=== PATIENT | male | born 1940 | race Caucasian/White ===

== ENCOUNTER → 2017-12-28 09:29 | Outpatient (CLI) | payer MEDICARE, SELFPAY ==
[2017-12-28 11:20] LABS: Absolute Lymphocyte Count 1.81 X10^3/ul (0.83-4.51); Absolute Neutrophil Count 3.7 X10^3/uL (2.0-7.7); Basophil# 0.04 X10^3/uL; Basophil% 0.6 % (0-1); Eosinophil# 0.27 X10^3/uL; Eosinophils% 4.1 % (0-5); Hematocrit 44.1 % (40-54); Hemoglobin 14.3 g/dl (13.0-16.5); Lymphocyte # 1.81 X10^3/ul (4.0); Lymphocyte % 27.8 % (19-41); Mean Corp Hgb Conc 32.4 g/gl (32-36); Mean Corpuscular Hgb 33.1 pg (27.0-32.0); Mean Corpuscular Volume 102.1 fL (80-94); Mean Platelet Vol. 10.5 fl (6.2-12.0); Monocyte# 0.66 X10^3/uL; Monocyte% 10.1 % (0-10); Neutrophil # 3.71 X10^3/uL (2.7-7.7); Neutrophil % 57.1 % (47-70); Platelet Count 223 K/mm3 (150-450); RBC Distribution Width CV 13.6 % (11.6-14.6); RBC Distribution Width SD 50.6 fl (35.1-43.9); Red Blood Count 4.32 M/mm3 (4.6-6.2); White Blood Count 6.5 K/mm3 (4.4-11.0)
[2017-12-28 11:32] LABS: POSITIVE COUNT NO; POSITIVE DIFFERENTIAL NO; POSITIVE MORPHOLOGY NO
[2017-12-28 11:40] LABS: Albumin, Serum 3.5 g/dL (3.2-5.0); BUN 19 mg/dL (7-18); BUN/Creat Ratio 14.3 RATIO (10-20); Calcium,Total 8.2 mg/dL (8.5-10.1); Chloride 107 mmol/L (98-107); Creatinine, Serum 1.33 mg/dL (0.70-1.30); EST Glomerular Filtration Rate 56 mL/min (>60); Est Glom Filt Rate - Afr Amer 67 mL/min (>60); Glucose 113 mg/dL (74-106); Magnesium 2.1 mg/dL (1.6-2.6); Phosphorus 2.5 mg/dL (2.5-4.9); Potassium 4.3 mmol/L (3.5-5.1); Sodium Level 143 mmol/L (136-145)
[2017-12-28 12:39] LABS: Protein, Urine (Random) 12.7 mg/dL (<11.9); Protein:Creat Ratio 145 mg/g CRE (0-200)
[2017-12-29 09:48] LABS: PTHIN 49.4 pg/mL (18.4-80.1)
[2017-12-29 10:20] LABS: Vitamin D,25 Hydroxy 42.8 ng/mL (29.95-100.01)
== END ==
PROVIDERS: Family Provider Family Medicine; PCP Family Medicine; Visit Provider Internal Medicine Nephrology
DX: Z13.0 Encounter for screening for diseases of the blood and blood-forming organs and certain disorders involving the immune mechanism (principal); N18.3 Chronic kidney disease, stage 3 (moderate); E55.9 Vitamin D deficiency, unspecified
CPT/HCPCS: 36415; 80069; 82306; 82570; 83735; 83970; 84156; 85025

== ENCOUNTER 2018-01-06 12:20 | Observation (INO) | payer MEDICARE, SELFPAY ==
[2018-01-06] VITALS (13 sets, daily range): BP systolic 98–157; BP diastolic 59–87; PULSE 65–92; RESP 15–18; TEMP 36.2–37.2; O2SAT 94–100; BMI 28.5; BMI 28.3; BMI 28.6
--- NOTE | 2018-01-06 12:34 | ED.RN ---
PT ALSO C/O JUAREZ IN [facility]. AWARE.
--- NOTE | 2018-01-06 12:44 | RAD_ITS ---
STUDY: X-RAY CHEST REASON FOR EXAM: Male, 77 years old. Chest pain. Left arm pain. TECHNIQUE: Single frontal view of the chest. COMPARISON: None. FINDINGS: The lungs are mildly hyperexpanded. There is no demonstrated pleural abnormality. There is borderline cardiomegaly. Normal mediastinum and emily. Normal visualized pulmonary arteries. Normal visualized aortic arch and descending thoracic aorta. Normal visualized thoracic spine. Normal visualized ribs, clavicles, and shoulders. There is a diaphragmatic pacer noted. There is no demonstrated abnormality of the visualized soft tissue structures of the upper abdomen. RAD/Chest 1 View (Portable) IMPRESSION: Borderline cardiomegaly with mild hyperexpansion. No acute pathology. Electronically Signed: Jose Alfredo Velazquez MD at 13:15 EDT , Service support ,
--- NOTE | 2018-01-06 12:44 | EKG12_ITS ---
Test Reason : REPEAT Blood Pressure : / mmHG Vent. Rate : 076 BPM Atrial Rate : 076 BPM P-R Int : 166 ms QRS Dur : 086 ms QT Int : 412 ms P-R-T Axes : 041 -22 022 degrees QTc Int : 463 ms Normal sinus rhythm Normal ECG Confirmed by HARVEY VALLADARES MD ([id number]), photo editor WINTER NUNES ([id number]) on 01/09/2018 1:21:19 PM Referred By: TAWNY Confirmed By:HARVEY VALLADARES MD
[2018-01-06] MEDS: Aspirin 81 MG TAB.CHEW 324 MG PO (12:54)
--- NOTE | 2018-01-06 13:16 | ED.VISSUMM ---
- ER Visit Summary Date of Service: 01/06/18 Chief Complaint: Chest pain History of Present Illness: The patient is a 77 M who presents with chest pain that has been constant for the past hour and a half. Patient states the pain started in his left wrist. Patient states pain is over the lower substernal area. Patient states he has been having intermittent chest pain for the past 2 days but has only been constant for the past hour and a half. Patient describes pain as a pressure. Patient states nothing seems to make it better or worse. Patient denies any nausea, vomiting, diaphoresis, or shortness of breath. Patient also admits to a right-sided headache. Patient states he was started on nortriptyline approximately 1-1/2 weeks ago but quit 1 week ago. Cardiac risk factors include hypertension, diabetes, and hypercholesterolemia. Physical Examination: Vital signs are stable. Patient is afebrile. Patient is in no acute distress. Oral mucosa is pink and moist. Neck is supple. Trachea is midline. There is no JVD or lymphadenopathy. Heart was regular rate and rhythm. Lungs are clear and equal bilateral. There is good respiratory effort noted. Abdomen is soft and nontender. Bowel sounds are normal. Cranial nerves II through XII are intact. There are no focal motor or sensory deficits noted. The remaining physical exam is within normal limits. Test Results: EKG showed normal sinus rhythm with a rate of 88. There are no acute ST or T-wave changes noted. There is evidence of left ventricular hypertrophy. CBC, basic metabolic profile, and troponin were obtained. BUN and creatinine were slightly elevated at 20 and 1.41. This is consistent with prior results. The remaining labs were within normal limits. Repeat EKG does not show any acute changes. Chest x-ray does not show any acute cardiopulmonary process. Emergency Department Course and Treatment: Patient was given aspirin and sublingual nitroglycerin here. Patient states his chest pain improved after this. Patient has a HEART score of 5. Case was discussed with Dr. Rich. He will admit the patient to his service to telemetry. She understood and was agreeable with the plan. All questions were answered. Disposition: Admit to the hospital Impression: Chest pain This note was generated with Att[employer] dictation software. It may contain incorrect words, spelling, and punctuation that were not noted in review of the chart prior to signing ED Disposition - Plan for ED Patient: Disposition: Acute Care Hospital [facility] Chief Complaint: Chest Pain Diagnosis: Chest pain Referrals: Freddy Walter MD [Primary Care Provider] -
--- NOTE | 2018-01-06 13:25 | ED.DCSUM_ITS ---
- ER Visit Summary Date of Service: 01/06/18 Chief Complaint: Chest pain History of Present Illness: The patient is a 77 M who presents with chest pain that has been constant for the past hour and a half. Patient states the pain started in his left wrist. Patient states pain is over the lower substernal area. Patient states he has been having intermittent chest pain for the past 2 days but has only been constant for the past hour and a half. Patient describes pain as a pressure. Patient states nothing seems to make it better or worse. Patient denies any nausea, vomiting, diaphoresis, or shortness of breath. Patient also admits to a right-sided headache. Patient states he was started on nortriptyline approximately 1-1/2 weeks ago but quit 1 week ago. Cardiac risk factors include hypertension, diabetes, and hypercholesterolemia. Physical Examination: Vital signs are stable. Patient is afebrile. Patient is in no acute distress. Oral mucosa is pink and moist. Neck is supple. Trachea is midline. There is no JVD or lymphadenopathy. Heart was regular rate and rhythm. Lungs are clear and equal bilateral. There is good respiratory effort noted. Abdomen is soft and nontender. Bowel sounds are normal. Cranial nerves II through XII are intact. There are no focal motor or sensory deficits noted. The remaining physical exam is within normal limits. Test Results: EKG showed normal sinus rhythm with a rate of 88. There are no acute ST or T-wave changes noted. There is evidence of left ventricular hypertrophy. CBC, basic metabolic profile, and troponin were obtained. BUN and creatinine were slightly elevated at 20 and 1.41. This is consistent with prior results. The remaining labs were within normal limits. Repeat EKG does not show any acute changes. Chest x-ray does not show any acute cardiopulmonary process. Emergency Department Course and Treatment: Patient was given aspirin and sublingual nitroglycerin here. Patient states his chest pain improved after this. Patient has a HEART score of 5. Case was discussed with Dr. Rich. He will admit the patient to his service to telemetry. She understood and was agreeable with the plan. All questions were answered. Disposition: Admit to the hospital Impression: Chest pain This note was generated with [employer] dictation software. It may contain incorrect words, spelling, and punctuation that were not noted in review of the chart prior to signing ED Disposition - Plan for ED Patient: Disposition: Acute Care Hospital [facility] Chief Complaint: Chest Pain Diagnosis: Chest pain Referrals: Freddy Walter MD [Primary Care Provider] -
[2018-01-06 13:29] LABS: Absolute Lymphocyte Count 1.72 X10^3/ul (0.83-4.51); Absolute Neutrophil Count 3.9 X10^3/uL (2.0-7.7); Basophil# 0.04 X10^3/uL; Basophil% 0.6 % (0-1); Eosinophil# 0.18 X10^3/uL; Eosinophils% 2.8 % (0-5); Hematocrit 43.1 % (40-54); Hemoglobin 14.3 g/dl (13.0-16.5); Lymphocyte # 1.72 X10^3/ul (4.0); Lymphocyte % 26.9 % (19-41); Mean Corp Hgb Conc 33.2 g/gl (32-36); Mean Corpuscular Hgb 33.2 pg (27.0-32.0); Monocyte# 0.51 X10^3/uL; Neutrophil # 3.93 X10^3/uL (2.7-7.7); Neutrophil % 61.4 % (47-70); Platelet Count 228 K/mm3 (150-450); RBC Distribution Width CV 13.3 % (11.6-14.6); RBC Distribution Width SD 48.6 fl (35.1-43.9); Red Blood Count 4.31 M/mm3 (4.6-6.2); White Blood Count 6.4 K/mm3 (4.4-11.0)
[2018-01-06 13:31] LABS: POSITIVE COUNT NO; POSITIVE DIFFERENTIAL NO; POSITIVE MORPHOLOGY NO
[2018-01-06 13:41] LABS: Anion Gap 7 (5-15); BUN 20 mg/dL (7-18); BUN/Creat Ratio 14.2 RATIO (10-20); Calcium,Total 8.4 mg/dL (8.5-10.1); Chloride 102 mmol/L (98-107); Creatinine, Serum 1.41 mg/dL (0.70-1.30); EST Glomerular Filtration Rate 52 mL/min (>60); Est Glom Filt Rate - Afr Amer 63 mL/min (>60); Estimated Creatinine Clearance 43.12 ml/min; Glucose 92 mg/dL (74-106); Potassium 4.2 mmol/L (3.5-5.1); Sodium Level 137 mmol/L (136-145)
--- NOTE | 2018-01-06 14:30 | EKG12_ITS ---
Test Reason : CHEST PAIN Blood Pressure : / mmHG Vent. Rate : 088 BPM Atrial Rate : 088 BPM P-R Int : 168 ms QRS Dur : 090 ms QT Int : 374 ms P-R-T Axes : 048 -20 030 degrees QTc Int : 452 ms Normal sinus rhythm Normal ECG Confirmed by BLAIEN RÍOS, HARVEY ([id number]), web editor WINTER NUNES ([id number]) on 01/09/2018 1:22:50 PM Referred By: Confirmed By:HARVEY VALLADARES MD
[2018-01-06] MEDS: Acetaminophen 500 MG Tablet 1000 MG PO (14:41)
--- NOTE | 2018-01-06 15:15 | HP.PCM_ITS ---
Problem List (1) Chest pain Status: Acute History of Present Illness Date of Admission: 01/06/18 Chief Complaint: Chest pain The patient is a 77 year old M past medical history of fibromyalgia, chronic pain syndrome, degenerative disc disease who presented to the emergency room today to be evaluated for midsternal chest pain. He reports intermittent midsternal chest pressure for the past 1-1/2 weeks . Today it started as tingling in his left hand and then he developed chest pain that lasted for about 3 and half hours before he came to the emergency room. The patient saw a fibromyalgia doctor at the [facility] and was recently started on Nortriptyline which he believes may be causing his chest pain. The patient reports no treated shortness of breath, cough, palpitations, rapid heartbeat, dizziness fever, chills, nausea, vomiting or abdominal pain. His workup in the emergency room is unremarkable, we are placing him in the hospital for further management. Past Medical History Allergies alfuzosin HCl [From Uroxatral] Allergy (Verified 01/06/18 12:29) Unknown ezetimibe [From Zetia] Allergy (Verified 01/06/18 12:29) Pain in joints pramipexole di-HCl [From Mirapex] Allergy (Verified 01/06/18 12:29) Other simvastatin [From Zocor] Allergy (Verified 01/06/18 12:29) Pain in joints lisinopril Adverse Reaction (Verified 01/06/18 12:29) Other Home Medications: Ambulatory Orders Medication Instructions Recorded Acyclovir [Zovirax] 400 mg PO BID 04/17/14 Ascorbate Calcium [Vitamin C] 500 mg PO BID 04/17/14 Atorvastatin Calcium [Lipitor] 10 mg PO DAILY 04/17/14 Cyanocobalamin (Vitamin B-12) 500 mcg PO BID 04/17/14 [Vitamin B-12] Duloxetine Hcl [Cymbalta] 60 mg PO DAILY 04/17/14 Gabapentin [Neurontin] 300 mg PO TID 04/17/14 Losartan Potassium [Cozaar] 25 mg PO QHS 04/17/14 Cholecalciferol (Vitamin D3) 1,000 unit PO BID 04/21/14 [Vitamin D3] Folic Acid 2 mg PO BIDCM 09/01/14 Aspirin E.C. [Ecotrin] 325 mg PO BIDCM #60 tablet 09/03/14 Smoking Status: Former smoker Review of Systems Comment: All Systems were reviewed with pertinent positives mentioned in the HPI above. VTE Information - Inpt Only VTE Present on Admission: No VTE Mechan Device Prophylaxis: SCD's VTE Pharm Prophylaxis ordered?: No Patient Problems: Active and Suspected Problems Chest pain (Acute) - Physical Exam General: Alert, Oriented x3 Neck: Supple, No JVD Lungs: Clear to auscultation Cardiovascular: Regular rate, Normal S1, Normal S2 Abdomen: Bowel Sounds Present, Soft, Non Tender Extremities: No edema Vital Signs Temp Pulse Resp BP Pulse Ox 97.1 F L 75 18 130/84 H 100 01/06/18 12:21 01/06/18 15:00 01/06/18 15:00 01/06/18 15:00 01/06/18 15:00 Oxygen Delivery Method Room Air Weight: 85.2 kg Body Mass Index (BMI) 28.5 Laboratory Tests Past 24 Hrs 01/06/18 01/06/18 13:00 13:00 WBC 6.4 RBC 4.31 L Hgb 14.3 Hct 43.1 MCV 100.0 H MCH 33.2 H MCHC 33.2 RDW 13.3 RDW Differential 48.6 H Plt Count 228 MPV 10.0 Immature Gran % (Auto) 0.300 Neut % (Auto) 61.4 Lymph % (Auto) 26.9 Craven % (Auto) 8.0 Eos % (Auto) 2.8 Baso % (Auto) 0.6 Absolute Neuts (auto) 3.9 Absolute Lymphs (auto) 1.72 Total Counted Not Reportable Sodium 137 Potassium 4.2 Chloride 102 Carbon Dioxide 28.0 Anion Gap 7 BUN 20 H Creatinine 1.41 H Estim Creat Clear Calc 43.12 Est GFR (MDRD) Af Amer 63 Est GFR (MDRD) Non-Af 52 L BUN/Creatinine Ratio 14.2 Glucose 92 Calcium 8.4 L Troponin I < 0.02 Assessment/Plan Active and Suspected Problems Chest pain (Acute) 1. Chest pain; we will obtain serial cardiac enzymes and EKGs to rule out acute coronary syndrome, assuming negative cardiac enzymes ,the patient will be scheduled for a stress test to rule out ischemia. 2. Fibromyalgia by history; will resume his home medications as they are. 3. Stage III chronic kidney disease; would avoid potential nephrotoxic medications, will dose medications based on his current GFR. 4. Dyslipidemia; he is on a statin. 5. Obesity; weight loss is recommended. 6. Essential hypertension; he is on Losartan. 7. DVT prophylaxis with Lovenox Code Visit OBSV E&M: 22906 Initial observation care L2
[2018-01-06] MEDS: Nitroglycerin Oint 1 INCH PACKET TRANSDERM. (15:22)
[2018-01-06] MEDS: Folic Acid 1 MG Tablet 2 MG PO (17:57)
[2018-01-06] MEDS: Gabapentin 300 MG Capsule PO (17:57)
[2018-01-06] MEDS: Ascorbic Acid 500 MG Tablet PO (22:12)
[2018-01-06] MEDS: Losartan Potassium 25 MG Tablet PO (22:12)
[2018-01-06] MEDS: Acyclovir 200 MG Capsule 400 MG PO (22:13)
[2018-01-06] MEDS: Cyanocobalamin 500 MCG Tablet PO (22:14)
[2018-01-06] MEDS: 0.9% NaCl Peripheral Flush Adult/Peds IV (22:17)
[2018-01-07] VITALS (10 sets, daily range): BP systolic 106–140; BP diastolic 61–75; PULSE 63–80; RESP 12–16; TEMP 36.6–36.8; O2SAT 97–99
[2018-01-07] MEDS: Enoxaparin 40 MG/0.4 ML Syringe SC (05:40)
[2018-01-07] MEDS: Gabapentin 300 MG Capsule PO ×3 (09:13→16:02)
[2018-01-07] MEDS: DULoxetine Hcl 60 MG Capsule PO (09:13)
[2018-01-07] MEDS: Folic Acid 1 MG Tablet 2 MG PO ×2 (09:13→16:02)
[2018-01-07] MEDS: Atorvastatin Calcium 10 MG Tablet PO (09:13)
[2018-01-07] MEDS: Ascorbic Acid 500 MG Tablet PO ×2 (09:15→21:05)
[2018-01-07] MEDS: Acyclovir 200 MG Capsule 400 MG PO ×2 (09:15→21:04)
[2018-01-07] MEDS: Aspirin E.C. 81 MG Tablet PO (09:59)
[2018-01-07] MEDS: Cyanocobalamin 500 MCG Tablet PO ×2 (09:59→21:06)
--- NOTE | 2018-01-07 11:18 | EKG12_ITS ---
Test Reason : CP Blood Pressure : / mmHG Vent. Rate : 076 BPM Atrial Rate : 076 BPM P-R Int : 166 ms QRS Dur : 088 ms QT Int : 400 ms P-R-T Axes : 048 -14 031 degrees QTc Int : 450 ms Normal sinus rhythm Normal ECG When compared with ECG of 06-JAN-2018 14:35, MANUAL COMPARISON REQUIRED, DATA IS UNCONFIRMED Confirmed by BLAINE RÍOS, HARVEY ([id number]), news video editor WINTER NUNES ([id number]) on 01/11/2018 3:39:03 PM Referred By: Daniel Guidry Confirmed By:HARVEY VALLADARES MD
--- NOTE | 2018-01-07 12:55 | PN_ITS ---
Patient Problems: Active and Suspected Problems Chest pain (Acute) Chest pain (Acute) Subjective: CC: Chest pain Objective: The patient is a 77 year old M past medical history of fibromyalgia, chronic pain syndrome, degenerative disc disease who presented to the emergency room today to be evaluated for midsternal chest pain. Serial cardiac enzymes are normal, he is to undergo stress test in the morning. He had an episode of chest pressure earlier in the day but currently denies any chest pain, shortness of breath or palpitations. Vitals/I&O's: Vital Signs Temp Pulse Resp BP Pulse Ox 98.3 F 68 16 125/73 H 97 01/07/18 09:06 01/07/18 11:01 01/07/18 09:06 01/07/18 09:06 01/07/18 09:06 Oxygen Delivery Method Room Air Weight: 84.4 kg Body Mass Index (BMI) 28.3 Intake and Output for Last 24 Hours 01/05/18 01/06/18 01/07/18 23:59 23:59 23:59 Intake Total 440 / 440 390 / 390 Balance 440 / 440 390 / 390 General: Alert, Oriented x3 HEENT: Atraumatic Oral: Moist Mucosa Neck: Supple Lungs: Wheezes Cardiovascular: Regular rate, Regular Rhythm, Normal S1, Normal S2 Abdomen: Bowel Sounds Present, Soft, Non Tender Laboratory Results 01/06/18 21:30: Troponin I < 0.02 01/07/18 03:32: Troponin I < 0.02 Current Medications Acyclovir (Zovirax) 400 mg PO BID [facility] Last Admin: 01/07/18 09:15 Dose: 400 mg Ascorbic Acid (Vitamin C) 500 mg PO BID [facility] Last Admin: 01/07/18 09:15 Dose: 500 mg Aspirin (Ecotrin) 81 mg PO DAILY@0800 [facility] Last Admin: 01/07/18 09:59 Dose: 81 mg Atorvastatin Calcium (Lipitor) 10 mg PO DAILY [facility] Last Admin: 01/07/18 09:13 Dose: 10 mg Cholecalciferol (Vitamin D) 1,000 unit PO BID [facility] Last Admin: 01/07/18 09:14 Dose: 1,000 unit Cyanocobalamin (Vitamin B12) 500 mcg PO BID [facility] Last Admin: 01/07/18 09:59 Dose: 500 mcg Duloxetine HCl (Cymbalta) 60 mg PO DAILY [facility] Last Admin: 01/07/18 09:13 Dose: 60 mg Enoxaparin Sodium (Lovenox) 40 mg SC DAILY@0600 [facility] Last Admin: 01/07/18 05:40 Dose: 40 mg Folic Acid (Folic Acid) 2 mg PO BIDCM [facility] Last Admin: 01/07/18 09:13 Dose: 2 mg Gabapentin (Neurontin) 300 mg PO TIDCM [facility] Last Admin: 01/07/18 11:57 Dose: 300 mg Losartan Potassium (Cozaar) 25 mg PO QHS [facility] Last Admin: 01/06/18 22:12 Dose: 25 mg Sodium Chloride () 5 - 30 ml IV UD PRN PRN Reason: SALINE FLUSH Last Admin: 01/06/18 22:17 Dose: 10 ml Medical Necessity - Tobacco Use Smoking Status: Former smoker Assessment/Plan Active and Suspected Problems Chest pain (Acute) Chest pain (Acute) 1. Chest pain; he would obtain stress test in the morning. 2. Fibromyalgia; we will continue home medications as they are. 3. Stage III chronic kidney disease; would avoid potential nephrotoxic medications, will dose medications based on his current GFR. 4. Dyslipidemia; he is on a statin. 5. Obesity; weight loss is recommended. 6. Essential hypertension; he is on Losartan. 7. DVT prophylaxis with Lovenox Code Visit Inpatient E&M: 74012 Subs Hosp L2 OBSV E&M: 39379 Subsequent observation care L2
[2018-01-07] MEDS: Losartan Potassium 25 MG Tablet PO (21:05)
[2018-01-08 02:36] VITALS: BP 105/63; PULSE 70; RESP 12; TEMP 36.6; O2SAT 95
[2018-01-08 03:10] VITALS: PULSE 69
[2018-01-08 05:37] LABS: Absolute Lymphocyte Count 2.03 X10^3/ul (0.83-4.51); Absolute Neutrophil Count 4.1 X10^3/uL (2.0-7.7); Basophil# 0.05 X10^3/uL; Basophil% 0.7 % (0-1); Eosinophil# 0.26 X10^3/uL; Eosinophils% 3.6 % (0-5); Hematocrit 43.4 % (40-54); Hemoglobin 14.9 g/dl (13.0-16.5); Lymphocyte # 2.03 X10^3/ul (4.0); Mean Corp Hgb Conc 34.3 g/gl (32-36); Mean Corpuscular Hgb 33.9 pg (27.0-32.0); Mean Corpuscular Volume 98.9 fL (80-94); Mean Platelet Vol. 10.3 fl (6.2-12.0); Monocyte# 0.79 X10^3/uL; Monocyte% 10.9 % (0-10); Neutrophil # 4.09 X10^3/uL (2.7-7.7); Neutrophil % 56.5 % (47-70); Platelet Count 241 K/mm3 (150-450); RBC Distribution Width CV 13.3 % (11.6-14.6); RBC Distribution Width SD 48.2 fl (35.1-43.9); Red Blood Count 4.39 M/mm3 (4.6-6.2); White Blood Count 7.2 K/mm3 (4.4-11.0)
[2018-01-08 05:44] VITALS: BP 122/80; PULSE 85; RESP 12; TEMP 36.6; O2SAT 97
[2018-01-08] MEDS: Aspirin E.C. 81 MG Tablet PO (05:45)
[2018-01-08 05:46] LABS: Partial Thromboplast Time 28.7 Seconds (24.1-36.2)
[2018-01-08 05:52] LABS: Anion Gap 9 (5-15); BUN 20 mg/dL (7-18); BUN/Creat Ratio 13.8 RATIO (10-20); Calcium,Total 8.6 mg/dL (8.5-10.1); Chloride 104 mmol/L (98-107); Creatinine, Serum 1.45 mg/dL (0.70-1.30); EST Glomerular Filtration Rate 50 mL/min (>60); Est Glom Filt Rate - Afr Amer 61 mL/min (>60); Estimated Creatinine Clearance 41.93 ml/min; Glucose 119 mg/dL (74-106); Sodium Level 141 mmol/L (136-145)
--- NOTE | 2018-01-08 05:55 | EKG12_ITS ---
Test Reason : AM EKG Blood Pressure : / mmHG Vent. Rate : 071 BPM Atrial Rate : 071 BPM P-R Int : 172 ms QRS Dur : 092 ms QT Int : 416 ms P-R-T Axes : 061 -14 051 degrees QTc Int : 452 ms Normal sinus rhythm Normal ECG When compared with ECG of 07-JAN-2018 11:30, MANUAL COMPARISON REQUIRED, DATA IS UNCONFIRMED Confirmed by BLAINE RÍOS, HARVEY ([id number]), photograph editor WINTER NUNES ([id number]) on 01/11/2018 3:38:24 PM Referred By: ARA Confirmed By:HARVEY VALLADARES MD
[2018-01-08 06:02] LABS: POSITIVE COUNT NO; POSITIVE DIFFERENTIAL NO; POSITIVE MORPHOLOGY NO
[2018-01-08 06:48] VITALS: PULSE 66
--- NOTE | 2018-01-08 10:11 | STRESSREP_ITS ---
Stress Test Report Exercise myocardial perfusion stress test. 77-year-old man with a history of chest pain. Stress protocol: Resting EKG demonstrates sinus rhythm with a rate of 58 bpm sinus arrhythmia noted. Resting blood pressure is 124/62 mmHg. The patient exercised according to the regular Felix protocol for total duration of 6 minutes. The maximum heart rate attained was 142 bpm which was 98% of maximum predicted heart rate. The maximum workload attained was 7 metabolic equivalents. At rest there were no ST or T-wave changes noted suggest ischemia and at peak exercise no ST or T- wave changes were noted suggest ischemia. No clinical angina was noted. The test was terminated due to shortness of breath and knee pain. The maximum blood pressure was 170/68 mmHg. Myocardial perfusion protocol. 11.3 mCi of technetium 99m sestamibi was injected at rest. The patient exercised according to the regular Felix protocol for 6 minutes attaining 7 metabolic equivalents. At peak exercise 33.8 mCi of technetium 99m sestamibi was injected. Stress images were obtained stress and rest images were reconstructed and compared in the short axis vertical long and horizontal long axis. Gated images were also obtained. Perfusion SPECT analysis. Review of the stress images demonstrate normal uptake of tracer noted in all areas of the myocardium. The resting images similarly demonstrate normal uptake of tracer noted in all areas of the myocardium. No areas of reversibility are noted suggest ischemia and no previous infarct is noted. Gated SPECT analysis. The gated ejection fraction is 58%. Conclusion: Normal exercise myocardial perfusion stress test at a moderate workload. No clinical angina noted. Preserved ejection fraction.
[2018-01-08] MEDS: Atorvastatin Calcium 10 MG Tablet PO (10:20)
[2018-01-08] MEDS: DULoxetine Hcl 60 MG Capsule PO (10:20)
[2018-01-08] MEDS: Folic Acid 1 MG Tablet 2 MG PO (10:20)
[2018-01-08] MEDS: Ascorbic Acid 500 MG Tablet PO (10:21)
[2018-01-08] MEDS: Acyclovir 200 MG Capsule 400 MG PO (10:21)
[2018-01-08] MEDS: Cyanocobalamin 500 MCG Tablet PO (10:22)
--- NOTE | 2018-01-08 10:37 | PCM.DC ---
- Discharge Diagnoses Current Active Problems: Current Active and Chronic Problems Chest pain (Acute) Chest pain (Acute) You will use the following diet at home:: No restrictions Your food should be the consistency of: Regular Your liquids should be the consistency of: Regular/Thin Discharge Activity: Return to Normal Activity Weight Bearing Status: Full weight bearing Allergies/Adverse Reactions: Allergies alfuzosin HCl [From Uroxatral] Allergy (Verified 01/06/18 12:29) Unknown ezetimibe [From Zetia] Allergy (Verified 01/06/18 12:29) Pain in joints pramipexole di-HCl [From Mirapex] Allergy (Verified 01/06/18 12:29) Other simvastatin [From Zocor] Allergy (Verified 01/06/18 12:29) Pain in joints lisinopril Adverse Reaction (Verified 01/06/18 12:29) Other Medications to take at Discharge Acyclovir [Zovirax] 400 mg PO BID 04/17/14 Ascorbate Calcium [Vitamin C] 500 mg PO BID 04/17/14 Atorvastatin Calcium [Lipitor] 20 mg PO DAILY 04/17/14 Cyanocobalamin (Vitamin B-12) [Vitamin B-12] 500 mcg PO BID 04/17/14 Duloxetine Hcl [Cymbalta] 60 mg PO BID 04/17/14 Gabapentin [Neurontin] 300 mg PO TID 04/17/14 Losartan Potassium [Cozaar] 25 mg PO QHS 04/17/14 Cholecalciferol (Vitamin D3) [Vitamin D3] 1,000 unit PO DAILY 04/21/14 Folic Acid 2 mg PO DAILY 09/01/14 Aspirin [Aspirin, Baby] 81 mg PO DAILY@0800 01/06/18 Aspirin E.C. [Ecotrin] 81 mg PO DAILY@0800 tablet 01/08/18 Primary Care Physician: Freddy Walter MD [Primary Care Provider] - Please follow up with your Primary Care Physician in: at next scheduled appointment
[2018-01-08 10:49] VITALS: BP 128/57; PULSE 74; RESP 14; TEMP 36.6; O2SAT 100
--- NOTE | 2018-01-09 19:21 | DS.PCM_ITS ---
Discharge Date and Diagnosis Date of Admission: 01/06/18 Date of Discharge: 01/08/18 - Primary Discharge Diagnosis #1 musculoskeletal chest pain #2 fibromyalgia #3 stage III chronic kidney disease Hospital Course and Treatment Operations: None Procedures: Nuclear stress test Summary of Care Provided: The patient is a 77 year old M was seen in the emergency room [facility] with chief complaint of chest pain. Workup in the emergency room included an EKG which showed a normal sinus rhythm at a rate of 88, labs were obtained and revealed a slightly elevated BUN at 20 and creatinine at 1.41. Chest x-ray did not show any acute cardiopulmonary process. Patient was given aspirin and sublingual nitroglycerin in the emergency room and he stated it improved his chest pain. Patient was placed in observation status on PCU, enzymes were cycled, and they remained negative and he underwent a nuclear stress test that was negative for reversible ischemia. On 01/08/18, patient was seen and examined felt in stable condition for discharge home Discharge Activity: Return to Normal Activity Weight Bearing Status: Full weight bearing Home Medications: Medications to take at Discharge Acyclovir [Zovirax] 400 mg PO BID 04/17/14 Ascorbate Calcium [Vitamin C] 500 mg PO BID 04/17/14 Atorvastatin Calcium [Lipitor] 20 mg PO DAILY 04/17/14 Cyanocobalamin (Vitamin B-12) [Vitamin B-12] 500 mcg PO BID 04/17/14 Duloxetine Hcl [Cymbalta] 60 mg PO BID 04/17/14 Gabapentin [Neurontin] 300 mg PO TID 04/17/14 Losartan Potassium [Cozaar] 25 mg PO QHS 04/17/14 Cholecalciferol (Vitamin D3) [Vitamin D3] 1,000 unit PO DAILY 04/21/14 Folic Acid 2 mg PO DAILY 09/01/14 Aspirin [Aspirin, Baby] 81 mg PO DAILY@0800 01/06/18 Aspirin E.C. [Ecotrin] 81 mg PO DAILY@0800 tablet 01/08/18 Primary Care Physician: Freddy Walter MD [Primary Care Provider] - Please follow up with your Primary Care Physician in: at next scheduled appointment Please Follow Up With: Freddy Walter MD Disposition: Home Minutes spent on discharge:: 25 Patient Condition:: Stable Medical Necessity - Tobacco Use Smoking Status: Former smoker Meaningful Use Info Meaningful Use Diagnoses (Choose all that apply): None applicable Code Visit OBSV E&M: 83847 Observation care discharge
== END 2018-01-08 10:39 | disposition home or self-care (01) ==
LOC: ED 13:49 → PCU 15:38
PROVIDERS: Admitting Provider Internal Medicine; Emergency Provider Emergency Medicine; Family Provider Family Medicine; PCP Family Medicine; Visit Provider Internal Medicine
DX: R07.89 Other chest pain (principal); M79.7 Fibromyalgia; G89.4 Chronic pain syndrome; E78.5 Hyperlipidemia, unspecified; E11.22 Type 2 diabetes mellitus with diabetic chronic kidney disease; I12.9 Hypertensive chronic kidney disease with stage 1 through stage 4 chronic kidney disease, or unspecified chronic kidney disease; N18.3 Chronic kidney disease, stage 3 (moderate); E66.9 Obesity, unspecified; Z68.28 Body mass index [BMI] 28.0-28.9, adult; Z79.899 Other long term (current) drug therapy; Z79.82 Long term (current) use of aspirin; Z71.3 Dietary counseling and surveillance; Z87.891 Personal history of nicotine dependence
CPT/HCPCS: 36415; 71045; 78452; 80048; 84484; 85025; 85610; 85730; 93005; 93017; 96372; 99218; 99284; A9500; A4216; G0378

== ENCOUNTER → 2018-05-15 14:06 | Outpatient (CLI) | payer MEDICARE, SELFPAY ==
[2018-05-15 15:08] LABS: PSA,Total - Annual Screen 0.77 ng/mL (0.00-4.00)
== END ==
PROVIDERS: Family Provider Family Medicine; PCP Family Medicine; Visit Provider Urology
DX: Z12.5 Encounter for screening for malignant neoplasm of prostate (principal)
CPT/HCPCS: 36415; 84153; G0103

== ENCOUNTER → 2018-06-20 08:52 | Outpatient (CLI) | payer MEDICARE, SELFPAY ==
[2018-06-20 13:04] LABS: Hemoglobin A1c 6.1 % (4.2-6.3)
[2018-06-20 13:26] LABS: AST(SGOT) 16 U/L (15-37); Alanine Aminotransfer ALT/SGPT 24 U/L (16-61); Albumin, Serum 3.4 g/dL (3.2-5.0); Alkaline Phosphatase 79 U/L (45-117); Anion Gap 8 (5-15); BUN 19 mg/dL (7-18); BUN/Creat Ratio 13.9 RATIO (10-20); Calcium,Total 8.5 mg/dL (8.5-10.1); Chloride 108 mmol/L (98-107); Cholesterol 163 mg/dL (200); Creatinine, Serum 1.37 mg/dL (0.70-1.30); EST Glomerular Filtration Rate 54 mL/min (>60); Est Glom Filt Rate - Afr Amer 65 mL/min (>60); Globulin 3.5 g/dL (2.2-4.2); Glucose 113 mg/dL (74-106); High Density Lipoprotein 53 mg/dL; Magnesium 2.2 mg/dL (1.6-2.6); Phosphorus 2.8 mg/dL (2.5-4.9); Potassium 4.6 mmol/L (3.5-5.1); Protein, Total 6.9 g/dL (6.4-8.2); Sodium Level 142 mmol/L (136-145); Triglycerides 117 mg/dL; Very Low Density Lipoprotein 23 mg/dL (5-40)
[2018-06-20 13:33] LABS: Absolute Lymphocyte Count 1.85 X10^3/ul (0.83-4.51); Absolute Neutrophil Count 3.2 X10^3/uL (2.0-7.7); Basophil# 0.04 X10^3/uL; Basophil% 0.7 % (0-1); Eosinophils% 3.4 % (0-5); Hematocrit 42.6 % (40-54); Hemoglobin 13.7 g/dl (13.0-16.5); Lymphocyte # 1.85 X10^3/ul (4.0); Lymphocyte % 31.8 % (19-41); Mean Corp Hgb Conc 32.2 g/gl (32-36); Mean Corpuscular Hgb 32.9 pg (27.0-32.0); Mean Corpuscular Volume 102.2 fL (80-94); Mean Platelet Vol. 10.5 fl (6.2-12.0); Monocyte% 8.6 % (0-10); Neutrophil # 3.22 X10^3/uL (2.7-7.7); Neutrophil % 55.5 % (47-70); Platelet Count 230 K/mm3 (150-450); RBC Distribution Width CV 13.4 % (11.6-14.6); RBC Distribution Width SD 50.5 fl (35.1-43.9); Red Blood Count 4.17 M/mm3 (4.6-6.2); White Blood Count 5.8 K/mm3 (4.4-11.0)
[2018-06-20 13:40] LABS: POSITIVE COUNT NO; POSITIVE DIFFERENTIAL NO; POSITIVE MORPHOLOGY NO
[2018-06-20 15:43] LABS: PTHIN 74.8 pg/mL (18.4-80.1)
== END ==
LOC: LAB.FUTURE 12-23 00:30 → BFHLAB 11-12 14:36
PROVIDERS: Family Provider Family Medicine; PCP Family Medicine; Visit Provider Family Medicine
DX: I12.9 Hypertensive chronic kidney disease with stage 1 through stage 4 chronic kidney disease, or unspecified chronic kidney disease (principal); E11.22 Type 2 diabetes mellitus with diabetic chronic kidney disease; N18.3 Chronic kidney disease, stage 3 (moderate); E55.9 Vitamin D deficiency, unspecified; E78.5 Hyperlipidemia, unspecified; Z13.0 Encounter for screening for diseases of the blood and blood-forming organs and certain disorders involving the immune mechanism
CPT/HCPCS: 36415; 80053; 80061; 82043; 82306; 82570; 83036; 83735; 83970; 84100; 85025

== ENCOUNTER → 2019-02-13 | Outpatient (CLI) | payer MEDICARE, SELFPAY ==
[2018-01-06 16:00] VITALS: BMI 28.3
[2019-02-13 12:31] LABS: Absolute Lymphocyte Count 1.62 X10^3/ul (0.83-4.51); Absolute Neutrophil Count 3.9 X10^3/uL (2.0-7.7); Basophil# 0.04 X10^3/uL; Basophil% 0.6 % (0-1); Eosinophil# 0.51 X10^3/uL; Eosinophils% 7.4 % (0-5); Hematocrit 43.4 % (40-54); Lymphocyte # 1.62 X10^3/ul (4.0); Lymphocyte % 23.5 % (19-41); Mean Corp Hgb Conc 32.3 g/gl (32-36); Mean Corpuscular Hgb 32.7 pg (27.0-32.0); Mean Corpuscular Volume 101.4 fL (80-94); Monocyte# 0.78 X10^3/uL; Monocyte% 11.3 % (0-10); Neutrophil # 3.93 X10^3/uL (2.7-7.7); Neutrophil % 56.9 % (47-70); Platelet Count 236 K/mm3 (150-450); RBC Distribution Width CV 13.5 % (11.6-14.6); RBC Distribution Width SD 49.6 fl (35.1-43.9); Red Blood Count 4.28 M/mm3 (4.6-6.2); White Blood Count 6.9 K/mm3 (4.4-11.0)
[2019-02-13 12:38] LABS: ALB/GLOB Ratio 1.1 RATIO (0.9-2.4); AST(SGOT) 20 U/L (15-37); Alanine Aminotransfer ALT/SGPT 25 U/L (16-61); Albumin, Serum 3.5 g/dL (3.2-5.0); Alkaline Phosphatase 90 U/L (45-117); Anion Gap 6 (5-15); BUN 23 mg/dL (7-18); BUN/Creat Ratio 16.2 RATIO (10-20); Calcium,Total 8.5 mg/dL (8.5-10.1); Chloride 110 mmol/L (98-107); Cholesterol 181 mg/dL (200); Creatinine, Serum 1.42 mg/dL (0.70-1.30); EST Glomerular Filtration Rate 51 mL/min (>60); Est Glom Filt Rate - Afr Amer 62 mL/min (>60); Globulin 3.3 g/dL (2.2-4.2); Glucose 120 mg/dL (74-106); High Density Lipoprotein 40 mg/dL; Potassium 4.2 mmol/L (3.5-5.1); Protein, Total 6.8 g/dL (6.4-8.2); Sodium Level 141 mmol/L (136-145); Triglycerides 270 mg/dL; Very Low Density Lipoprotein 54 mg/dL (5-40)
[2019-02-13 12:59] LABS: POSITIVE COUNT NO; POSITIVE DIFFERENTIAL NO; POSITIVE MORPHOLOGY NO
== END | disposition home or self-care (01) ==
PROVIDERS: Family Provider Family Medicine; PCP Family Medicine; Visit Provider Internal Medicine Nephrology
DX: E11.22 Type 2 diabetes mellitus with diabetic chronic kidney disease (principal); I12.9 Hypertensive chronic kidney disease with stage 1 through stage 4 chronic kidney disease, or unspecified chronic kidney disease; N18.3 Chronic kidney disease, stage 3 (moderate)
CPT/HCPCS: 36415; 80053; 80061; 85025

== ENCOUNTER → 2019-09-05 09:48 | Outpatient (CLI) | payer MEDICARE, SELFPAY ==
[2019-09-05 12:41] LABS: Absolute Lymphocyte Count 1.53 X10^3/uL (0.83-4.51); Absolute Neutrophil Count 7.5 X10^3/uL (2.0-7.7); Basophil# 0.07 X10^3/uL; Basophil% 0.7 % (0-1); Eosinophil# 0.35 X10^3/uL; Eosinophils% 3.4 % (0-5); Hematocrit 44.2 % (40-54); Hemoglobin 14.3 g/dL (13.0-16.5); Lymphocyte # 1.53 X10^3/ul (4.0); Mean Corp Hgb Conc 32.4 g/dL (32-36); Mean Corpuscular Hgb 33.1 pg (27.0-32.0); Mean Corpuscular Volume 102.3 fL (80-94); Mean Platelet Vol. 10.8 fl (6.2-12.0); Monocyte# 0.75 X10^3/uL; Monocyte% 7.3 % (0-10); NRBC Flagged by Analyzer 0 % (0-5); Neutrophil # 7.48 X10^3/uL (2.7-7.7); Neutrophil % 73.1 % (47-70); Platelet Count 231 K/mm3 (150-450); RBC Distribution Width CV 13.2 % (11.6-14.6); RBC Distribution Width SD 49.9 fl (35.1-43.9); Red Blood Count 4.32 M/mm3 (4.6-6.2); White Blood Count 10.2 K/mm3 (4.4-11.0)
[2019-09-05 12:59] LABS: ALB/GLOB Ratio 1.1 RATIO (0.9-2.4); AST(SGOT) 15 U/L (15-37); Alanine Aminotransfer ALT/SGPT 30 U/L (16-61); Albumin, Serum 3.8 g/dL (3.2-5.0); Alkaline Phosphatase 84 U/L (45-117); Anion Gap 6 (5-15); BUN 22 mg/dL (7-18); BUN/Creat Ratio 13.3 RATIO (10-20); Calcium,Total 8.8 mg/dL (8.5-10.1); Chloride 107 mmol/L (98-107); Creatinine, Serum 1.66 mg/dL (0.70-1.30); EST Glomerular Filtration Rate 43 mL/min (>60); Est Glom Filt Rate - Afr Amer 52 mL/min (>60); Globulin 3.4 g/dL (2.2-4.2); Glucose 125 mg/dL (74-106); Potassium 4.6 mmol/L (3.5-5.1); Protein, Total 7.2 g/dL (6.4-8.2); Sodium Level 140 mmol/L (136-145)
[2019-09-05 13:00] LABS: Microalbumin,Random Urine 21.4 mg/L (NO RANGE EST.); Microalbumin:Creatinine Ratio 16.6 mg/g CRE (<30 mg/g CRE)
[2019-09-05 14:16] LABS: Vitamin B12 300 pg/mL (211-911); Vitamin D,25 Hydroxy 36.5 ng/mL (29.95-100.01)
== END ==
PROVIDERS: Family Provider Family Medicine; PCP Family Medicine; Visit Provider Family Medicine
DX: I10 Essential (primary) hypertension (principal); E11.9 Type 2 diabetes mellitus without complications; E55.9 Vitamin D deficiency, unspecified; E53.8 Deficiency of other specified B group vitamins
CPT/HCPCS: 36415; 80053; 82043; 82306; 82570; 82607; 85025

== ENCOUNTER → 2019-11-05 13:48 | Outpatient (CLI) | payer MEDICARE, SELFPAY ==
[2018-01-06 16:00] VITALS: BMI 28.3
--- NOTE | 2019-11-05 13:51 | RAD_ITS ---
STUDY: X-RAY CHEST REASON FOR EXAM: Male, 78 years old. Chronic cough TECHNIQUE: PA and lateral views of the chest. COMPARISON: January 06, 2018 FINDINGS: There is no new focal consolidation present. The lungs remain hyperinflated. Normal size heart. Normal mediastinum and emily. Normal visualized pulmonary arteries. Normal visualized aortic arch and descending thoracic aorta. Stable visualized thoracic spine. Normal visualized ribs, clavicles, and shoulders. There is a grossly stable diaphragmatic pacer visualized. There is no demonstrated abnormality of the visualized soft tissue structures of the upper abdomen. RAD/Chest PA and Lateral IMPRESSION: Stable examination demonstrating no acute cardiopulmonary process. Electronically Signed: Janice Weathers MD at 23:23 EST Tel , Service support ,
== END ==
PROVIDERS: PCP Family Medicine; Referring Provider Family Medicine; Visit Provider Family Medicine
DX: R05 Cough (principal)
CPT/HCPCS: 71046

== ENCOUNTER 2019-11-10 15:54 | Emergency (ER) | payer MEDICARE, SELFPAY ==
[2019-11-10 15:55] VITALS: BP 164/86; PULSE 70; RESP 18; TEMP 37.1; O2SAT 97; BMI 27.5
--- NOTE | 2019-11-10 16:21 | ED.DCSUM_ITS ---
History of Present Illness Chief Complaint: Lower Extremity Injury Informant: Patient Onset: Yesterday Narrative: Patient is a 78-year-old male with history of chronic prednisone use, Raynaud syndrome, Palacios's cyst, hypertension and diabetes mellitus presenting with atr aumatic pain and swelling of his left lower leg. Patient states he noticed a little bit of discomfort and swelling yesterday but it was more pronounced today. He denies any injury. He denies any recent immobilization. He is not any blood thinners. He is not on any testosterone or hormone therapy. He denies any history of DVT or PE. He does not feel short of breath or have chest pain. Past Medical History - Allergies and Home Meds Allergies/Adverse Reactions: Allergies alfuzosin HCl [From Uroxatral] Allergy (Verified 01/06/18 12:29) Unknown ezetimibe [From Zetia] Allergy (Verified 01/06/18 12:29) Pain in joints pramipexole di-HCl [From Mirapex] Allergy (Verified 01/06/18 12:29) Other simvastatin [From Zocor] Allergy (Verified 01/06/18 12:29) Pain in joints lisinopril Adverse Reaction (Verified 01/06/18 12:29) Other Primary Care Physician: Monserrat Wilson MD [Primary Care Provider] - Past Medical History: - - Hypertension, diabetes, Raynaud syndrome Surgical History: noncontributory Smoking Status: Former smoker Review of Systems General: Denies: Chills, Fever, Sweats Eyes: Denies: Visual changes - bilaterally, Diplopia ENT: Denies: Rhinorrhea, Sore throat Cardiovascular: Denies: Chest pain, Palpitations Respiratory: Denies: Dyspnea, Cough, Dyspnea on exertion Gastrointestinal: Denies: Abdominal pain, Nausea, Vomiting, Diarrhea, Melena, Hematochezia Genitourinary: Denies: Dysuria, Hematuria, Frequency Musculoskeletal: Reports: Swelling - Left lower extremity, Extremity Pain - Left calf pain. Denies: Back pain Skin: Denies: Rash, Wounds Neurological: Reports: Parasthesia - Left heel. Denies: Headache, Weakness, Numbness Physical Exam Vital Signs/Narrative: Vital Signs Temp Pulse Resp BP Pulse Ox 11/10/19 15:55 98.7 F 70 18 164/86 H 97 Inital Vital Signs reviewed: Yes General: Well nourished, Well developed, No Acute Distress Head: Normocephalic, Atraumatic Eyes: Perrl, EOMI ENT: Moist mucous membranes, No rhinorrhea Neck: Supple, Nontender Cardiovascular: Regular rate, Regular rhythm, No murmurs Respiratory: No distress, CTA bilaterally, Chest nontender Back: Nontender, Normal Inspection Extremities: Edema, Calf Tenderness, - - No palpable cords. 2+ pitting edema of the left lower leg, asymmetric. No associated warmth Skin: Normal color, No rash, - - No associated erythema of the left lower extremity Neurological: Alert, Oriented x3, Cranial nerves II-XII grossly intact, Normal Strength, Normal Sensation, Parasthesia - Left heel Psychological: Normal affect, Normal Mood Diagnostic/Tx/Re-eval - Medical Decision Making Patient is evaluated for atraumatic discomfort and swelling of his left lower extremity. He has normal vital signs. Presentation is concerning for DVT although I do not know why he would have 1 at this time. Patient be treated empirically with Lovenox and ordered an outpatient ultrasound for tomorrow. He does have a follow-up appointment with his nurse practitioner home assessments tomorrow because of the paresthesias he has been having in his heel. I suspect this is more associated with diabetic neuropathy. He does not have any overlying erythema or signs of cellulitis at this time. He denies any abnormal bleeding or signs of GI bleed. Do not think further blood work is indicated at this time. He is not have any signs or symptoms of a PE. He is not tachycardic or hypoxic. He denies any dyspnea on exertion or shortness of breath. Patient is counseled on signs and symptoms requiring return to the emergency room. Patient verbalizes agreement and understand this plan. Patient discharged home in stable and improved condition. ED Disposition - Plan for ED Patient: Disposition: Home or Assisted Living Diagnosis: Localized swelling of left lower leg Instructions: Deep Vein Thrombosis Referrals: Monserrat Wilson MD [Primary Care Provider] - Additional Instructions: The swelling in your leg looks like it could be from a DVT. I do not have ultrasound here today to test for it. You were treated with 1 dose of anticoagulation (a blood thinner) just in case and need to return tomorrow for formal ultrasound to either rule out or rule in a DVT. The radiology department should call you tomorrow morning to tell you what time to come in. If you develop any chest pain, shortness of breath or worsening symptoms please return to the emergency room.
[2019-11-10] MEDS: Enoxaparin 100 MG/ML Syringe 80 MG SC (16:37)
== END 2019-11-10 16:46 | disposition home or self-care (01) ==
PROVIDERS: Emergency Provider Emergency Medicine; PCP Family Medicine
DX: R60.0 Localized edema (principal); I10 Essential (primary) hypertension; E11.9 Type 2 diabetes mellitus without complications; I73.00 Raynaud's syndrome without gangrene; Z79.52 Long term (current) use of systemic steroids; Z79.82 Long term (current) use of aspirin; Z87.891 Personal history of nicotine dependence
CPT/HCPCS: 96372; 99282

== ENCOUNTER → 2019-11-11 09:52 | Outpatient (CLI) | payer MEDICARE, SELFPAY ==
[2019-11-10 15:55] VITALS: BMI 27.5
--- NOTE | 2019-11-11 09:55 | VDLE_ITS ---
Reason For Study: Edema RIGHT LEFT CFV is compressible, spontaneous, phasic, GSV is normal. competent and demonstrates normal Acute deep vein thrombosis is noted in the augmentation. left CFV, FV, PopV, T/P Trunk, PTV, PeroV, Procedure SoleusV, GastrocV. Exam performed in department. Clot is mobile in the CFV. A preliminary report was called and/or faxed to Steve. Pt seen in ED 11/10/2019 PCP Steve. Pt released home, office to call pt with instructions. Pt was given a shot of Lovenox in ED 11/10/2019. Interpretation Summary Acute deep vein thrombosis is noted in the left common femoral vein. Acute deep vein thrombosis is noted in the left femoral vein. Acute deep vein thrombosis is noted in the left popliteal vein. Acute deep vein thrombosis is noted in the left tibio-peroneal trunk. Acute deep vein thrombosis is noted in the left posterior tibial vein. Acute deep vein thrombosis is noted in the left peroneal vein. Acute deep vein thrombosis is noted in the left soleus vein. Acute deep vein thrombosis is noted in the left gastrocnemius vein. The left great saphenous vein appears patent and compressible segmentally. Ordering Physician: Sosa Gibson Referring Physician: Monserrat Wilson Performed By: Roxana Alvarado RVT
== END ==
PROVIDERS: PCP Family Medicine; Referring Provider Emergency Medicine; Visit Provider Emergency Medicine
DX: R60.0 Localized edema (principal)
CPT/HCPCS: 93971

== ENCOUNTER → 2019-11-15 13:19 | Outpatient (CLI) | payer MEDICARE, SELFPAY ==
[2019-11-10 15:55] VITALS: BMI 27.5
[2019-11-15 15:35] LABS: Absolute Lymphocyte Count 1.69 X10^3/uL (0.83-4.51); Basophil# 0.08 X10^3/uL; Eosinophil# 0.27 X10^3/uL; Eosinophils% 3.4 % (0-5); Hematocrit 44.4 % (40-54); Hemoglobin 14.3 g/dL (13.0-16.5); Lymphocyte # 1.69 X10^3/ul (4.0); Lymphocyte % 21.6 % (19-41); Mean Corp Hgb Conc 32.2 g/dL (32-36); Mean Corpuscular Hgb 32.4 pg (27.0-32.0); Mean Corpuscular Volume 100.7 fL (80-94); Mean Platelet Vol. 10.1 fl (6.2-12.0); Monocyte# 0.78 X10^3/uL; Monocyte% 9.9 % (0-10); NRBC Flagged by Analyzer 0 % (0-5); Neutrophil # 4.97 X10^3/uL (2.7-7.7); Neutrophil % 63.5 % (47-70); Platelet Count 315 K/mm3 (150-450); RBC Distribution Width CV 12.7 % (11.6-14.6); Red Blood Count 4.41 M/mm3 (4.6-6.2); White Blood Count 7.8 K/mm3 (4.4-11.0)
[2019-11-15 15:46] LABS: Protein, Urine (Random) 9.7 mg/dL (<11.9); Protein:Creat Ratio 89 mg/g CRE (0-200)
[2019-11-15 15:51] LABS: Albumin, Serum 3.5 g/dL (3.2-5.0); Anion Gap 5 (5-15); BUN 20 mg/dL (7-18); BUN/Creat Ratio 13.8 RATIO (10-20); Calcium,Total 8.9 mg/dL (8.5-10.1); Chloride 106 mmol/L (98-107); Creatinine, Serum 1.45 mg/dL (0.70-1.30); EST Glomerular Filtration Rate 50 mL/min (>60); Est Glom Filt Rate - Afr Amer 61 mL/min (>60); Glucose 165 mg/dL (74-106); Phosphorus 2.3 mg/dL (2.5-4.9); Potassium 4.2 mmol/L (3.5-5.1); Sodium Level 139 mmol/L (136-145)
[2019-11-15 16:06] LABS: Vitamin D,25 Hydroxy 27.9 ng/mL (29.95-100.01)
== END ==
LOC: BFHLAB 13:20
PROVIDERS: PCP Family Medicine; Visit Provider Internal Medicine Nephrology
DX: I82.409 Acute embolism and thrombosis of unspecified deep veins of unspecified lower extremity (principal); N18.3 Chronic kidney disease, stage 3 (moderate)
CPT/HCPCS: 36415; 80069; 82306; 82570; 83970; 84156; 85025

== ENCOUNTER → 2020-02-25 11:01 | Outpatient (CLI) | payer MEDICARE, SELFPAY ==
--- NOTE | 2020-02-25 11:10 | VDLE_ITS ---
Reason For Study: DVT RIGHT LEFT CFV is compressible, spontaneous, phasic, GSV is normal. competent and demonstrates normal CFV is compressible, spontaneous, phasic, augmentation. competent, and demonstrates normal Procedure augmentation. Exam performed in department. FV prox is partially compressible with Compared to 11/11/2019. minimal flow noted. A preliminary report was called and/or faxed Acute deep vein thrombosis is noted in the to [place]. left FV mid-dist, PopV, and T/P trunk with no flow noted. Left PTV and GastrocV are partially compressible Left soleus vein iscompressible. LT PerV is compressible. Interpretation Summary Acute deep vein thrombosis is noted in the left femoral vein. Acute deep vein thrombosis is noted in the left popliteal vein. Acute deep vein thrombosis is noted in the left tibio-peroneal trunk. Acute deep vein thrombosis is noted in the left posterior tibial vein. Acute deep vein thrombosis is noted in the left gastrocnemius vein. The remainder of the left lower extremity deep venous system is patent and compressible. The left great saphenous vein appears patent and compressible segmentally. Ordering Physician: Monserrat Wilson Referring Physician: Monserrat Wilson Performed By: Roxana Alvarado RVT
== END ==
PROVIDERS: PCP Family Medicine; Referring Provider Family Medicine; Visit Provider Family Medicine
DX: I82.4Z2 Acute embolism and thrombosis of unspecified deep veins of left distal lower extremity (principal)
CPT/HCPCS: 93971

== ENCOUNTER 2020-04-23 22:29 | Emergency (ER) | payer MEDICARE, SELFPAY ==
[2020-04-23 22:33] VITALS: BP 123/77; PULSE 75; RESP 18; TEMP 36.6; O2SAT 100; BMI 26.9
--- NOTE | 2020-04-23 23:39 | ED.VIS.GEN ---
History of Present Illness Chief Complaint: Complaint Informant: Patient Narrative: 79-year-old male presents with concern for being unable to urinate since late last night. States he began having worsening abdominal pain over this period of time. Has been unable to pass stool. States he has not had issues with urinary retention before in the past. Denies any fever, chills, nausea, vomiting. Past Medical History - Allergies and Home Meds Allergies/Adverse Reactions: Allergies alfuzosin HCl [From Uroxatral] Allergy (Verified 04/23/20 22:37) Unknown ezetimibe [From Zetia] Allergy (Verified 04/23/20 22:37) Pain in joints pramipexole di-HCl [From Mirapex] Allergy (Verified 04/23/20 22:37) Other simvastatin [From Zocor] Allergy (Verified 04/23/20 22:37) Pain in joints lisinopril Adverse Reaction (Verified 04/23/20 22:37) Other Primary Care Physician: Monserrat Wilson MD [Primary Care Provider] - Past Medical History: - - HTN and HLD Surgical History: noncontributory Lives: Spouse/ Significant Other Smoking Status: Former smoker Alcohol: None Drugs: None Review of Systems General: Denies: Chills, Fever, Sweats Eyes: Denies: Visual changes - bilaterally, Diplopia ENT: Denies: Rhinorrhea, Sore throat Cardiovascular: Denies: Chest pain, Palpitations Respiratory: Denies: Dyspnea, Cough, Dyspnea on exertion Gastrointestinal: Reports: Abdominal pain. Denies: Nausea, Vomiting, Diarrhea, Melena, Hematochezia Genitourinary: Reports: - - unable to urinate. Denies: Dysuria, Hematuria, Frequency Musculoskeletal: Denies: Back pain, Extremity Pain Skin: Denies: Rash, Wounds Neurological: Denies: Headache, Weakness, Numbness Physical Exam Vital Signs/Narrative: Vital Signs Temp Pulse Resp BP Pulse Ox 04/23/20 22:33 97.8 F 75 18 123/77 H 100 Inital Vital Signs reviewed: Yes General: Well nourished, Well developed, No Acute Distress Head: Normocephalic, Atraumatic Eyes: Perrl, EOMI ENT: Moist mucous membranes, No rhinorrhea Neck: Supple, Nontender Cardiovascular: Regular rate, Regular rhythm, No murmurs Respiratory: No distress, CTA bilaterally, Chest nontender Abdomen: Soft, Nontender, Normal bowel sounds, - - Distended abdomen Back: Nontender, Normal Inspection Extremities: Nontender, No edema Skin: Normal color, No rash Neurological: Alert, Oriented x3, Cranial nerves II-XII grossly intact, Normal Strength, Normal Sensation Psychological: Normal affect, Normal Mood Diagnostic/Tx/Re-eval Laboratory Data 04/23/20 23:55 Urine Color Yellow Urine Clarity Clear Urine pH 5.0 Ur Specific [place] 1.015 Urine Protein Negative Urine Glucose (UA) Normal Urine Ketones 5 H Urine Occult Blood 25 H Urine Nitrite Negative Urine Bilirubin Negative Urine Urobilinogen Normal Ur Leukocyte Esterase Negative Urine RBC 0-5 SEEN Urine WBC 0 SEEN Ur Squamous Epith Cells 0 SEEN Urine Bacteria 0 SEEN Urine Mucus 0 SEEN - Medical Decision Making Patient is in moderate distress upon arrival due to likely urinary retention. Chadwick catheter was placed. Patient drained out over 1000 mL's of urine. Shows no evidence of infection. Patient will be given leg bag and follow-up with his urologist Dr. Prado. Asked to return for any new or worsening symptoms including fever, chills, abdominal pain, Chadwick dysfunction. Patient and agreeable and patient discharged home in stable condition. ED Disposition - Plan for ED Patient: Disposition: Home or Assisted Living Diagnosis: Urinary retention, History of BPH Instructions: ED Chadwick Catheter Care Referrals: Monserrat Wilson MD [Primary Care Provider] - Aneesh Prado MD [STAFF PHYSICIAN] -
[2020-04-24 00:04] LABS: Bacteria 0 SEEN /hpf (None Seen); Mucous, Urine 0 SEEN /hpf (<or=2+); Squamous Epithelial Cells - UA 0 SEEN /hpf (0-5); White Blood Cells 0 SEEN /hpf (0-5)
[2020-04-24 00:05] LABS: Color, Urine Yellow (Yellow); Glucose, Dipstick Normal (Normal); Ketone-Dipstick 5 mg/dl (Negative); Leukocyte Esterase-Dipstick Negative /ul (Negative); Nitrite-Dipstick Negative (Negative); Occult Blood-Urine 25 /ul (Negative); Protein-Dipstick Negative (Negative); Specific Gravity, Urine 1.015 (1.002-1.030); Urine Bilirubin Dipstick Negative (Negative); Urine Clarity Clear (Clear); Urine Urobilinogen Normal (Normal)
[2020-04-24 00:25] LABS: Red Blood Cells-Urine 0-5 SEEN /hpf (0-5)
[2020-04-24 00:47] VITALS: BP 124/73; PULSE 81; RESP 18; O2SAT 96
== END 2020-04-24 00:49 | disposition home or self-care (01) ==
PROVIDERS: Emergency Provider Emergency Medicine; PCP Family Medicine
DX: R33.8 Other retention of urine (principal); E78.5 Hyperlipidemia, unspecified; I10 Essential (primary) hypertension; Z87.891 Personal history of nicotine dependence; Z79.01 Long term (current) use of anticoagulants
CPT/HCPCS: 51702; 81001; 99285

== ENCOUNTER → 2020-05-06 09:16 | Outpatient (CLI) | payer MEDICARE, SELFPAY ==
[2020-04-23 22:33] VITALS: BMI 26.9
[2020-05-06 12:42] LABS: Hematocrit 42.7 % (40-54); Hemoglobin 14.1 g/dL (13.0-16.5); Mean Corpuscular Hgb 32.6 pg (27.0-32.0); Mean Corpuscular Volume 98.8 fL (80-94); Mean Platelet Vol. 10.7 fl (6.2-12.0); Platelet Count 260 K/mm3 (150-450); RBC Distribution Width CV 13.3 % (11.6-14.6); Red Blood Count 4.32 M/mm3 (4.6-6.2); White Blood Count 7.4 K/mm3 (4.4-11.0)
[2020-05-06 12:53] LABS: Albumin, Serum 3.4 g/dL (3.2-5.0); BUN 20 mg/dL (7-18); BUN/Creat Ratio 13.1 RATIO (10-20); Calcium,Total 8.3 mg/dL (8.5-10.1); Chloride 104 mmol/L (98-107); Creatinine, Serum 1.53 mg/dL (0.70-1.30); EST Glomerular Filtration Rate 47 mL/min (>60); Est Glom Filt Rate - Afr Amer 57 mL/min (>60); Glucose 118 mg/dL (74-106); Phosphorus 2.6 mg/dL (2.5-4.9); Potassium 4.2 mmol/L (3.5-5.1); Sodium Level 138 mmol/L (136-145)
[2020-05-06 12:58] LABS: Protein, Urine (Random) 13.6 mg/dL (<11.9); Protein:Creat Ratio 138 mg/g CRE (0-200)
[2020-05-06 13:31] LABS: PTHIN 63.9 pg/mL (18.4-80.1)
[2020-05-06 13:49] LABS: Vitamin D,25 Hydroxy 35.5 ng/mL
== END ==
PROVIDERS: PCP Family Medicine; Visit Provider Internal Medicine Nephrology
DX: N18.3 Chronic kidney disease, stage 3 (moderate) (principal); E55.9 Vitamin D deficiency, unspecified; Z13.0 Encounter for screening for diseases of the blood and blood-forming organs and certain disorders involving the immune mechanism
CPT/HCPCS: 36415; 80069; 82306; 82570; 83970; 84156; 85027

== ENCOUNTER → 2020-05-25 09:36 | Outpatient (CLI) | payer MEDICARE, SELFPAY ==
[2020-05-12 10:38] VITALS: BMI 26.9
--- NOTE | 2020-05-25 09:38 | VDLE_ITS ---
Reason For Study: Follow up DVT RIGHT LEFT CFV is compressible, spontaneous, phasic, GSV is normal. competent and demonstrates normal CFV is compressible, spontaneous, phasic, augmentation. competent, and demonstrates normal Procedure augmentation. Exam performed in department. FV prox is partially compressible with A preliminary report was called and/or faxed minimal flow noted. to Dr. Wilson. Acute deep vein thrombosis is noted in the left FV mid-dist, PopV, and T/P trunk with no flow noted. Left GastrocV is partially compressible Left soleus vein is compressible. Left PTV is compressible. LT PerV is compressible. Interpretation Summary Acute deep vein thrombosis is noted in the left femoral vein. Acute deep vein thrombosis is noted in the left popliteal vein. Acute deep vein thrombosis is noted in the left tibio-peroneal trunk. Acute deep vein thrombosis is noted in the left gastrocnemius vein. The remainder of the left lower extremity deep venous system is patent and compressible. The left common femoral vein is competent. The left great saphenous vein appears patent and compressible segmentally. Ordering Physician: Monserrat Wilson Referring Physician: Monserrat Wilson Performed By: Regi Sanford, MERCED, RVT
== END ==
PROVIDERS: PCP Family Medicine; Referring Provider Family Medicine; Visit Provider Family Medicine
DX: M79.662 Pain in left lower leg (principal); I82.409 Acute embolism and thrombosis of unspecified deep veins of unspecified lower extremity
CPT/HCPCS: 93971

== ENCOUNTER → 2020-11-13 13:35 | Outpatient (CLI) | payer MEDICARE, SELFPAY ==
[2020-08-13 13:33] VITALS: BMI 26.6
[2020-11-13 15:43] LABS: Anion Gap 4 (5-15); BUN 22 mg/dL (7-18); BUN/Creat Ratio 14.4 RATIO (10-20); Calcium,Total 8.6 mg/dL (8.5-10.1); Chloride 106 mmol/L (98-107); Creatinine, Serum 1.53 mg/dL (0.70-1.30); EST Glomerular Filtration Rate 47 mL/min (>60); Est Glom Filt Rate - Afr Amer 57 mL/min (>60); Glucose 116 mg/dL (74-106); Potassium 3.9 mmol/L (3.5-5.1); Sodium Level 138 mmol/L (136-145)
[2020-11-13 17:47] LABS: Protein, Urine (Random) 16.5 mg/dL (<11.9); Protein:Creat Ratio 138 mg/g CRE (0-200)
== END ==
PROVIDERS: PCP Family Medicine; Visit Provider Internal Medicine Nephrology
DX: N18.30 Chronic kidney disease, stage 3 unspecified (principal)
CPT/HCPCS: 36415; 80048; 82570; 84156

== ENCOUNTER → 2020-12-29 10:43 | Outpatient (CLI) | payer MEDICARE, SELFPAY ==
[2020-08-13 13:33] VITALS: BMI 26.6
[2020-12-29 12:44] LABS: Absolute Lymphocyte Count 1.32 X10^3/uL (0.83-4.51); Absolute Neutrophil Count 4.7 X10^3/uL (2.0-7.7); Basophil# 0.06 X10^3/uL; Basophil% 0.9 % (0-1); Eosinophil# 0.08 X10^3/uL; Eosinophils% 1.2 % (0-5); Hematocrit 44.6 % (40-54); Hemoglobin 14.6 g/dL (13.0-16.5); Lymphocyte # 1.32 X10^3/ul (4.0); Lymphocyte % 19.3 % (19-41); Mean Corp Hgb Conc 32.7 g/dL (32-36); Mean Corpuscular Hgb 33.4 pg (27.0-32.0); Mean Corpuscular Volume 102.1 fL (80-94); Mean Platelet Vol. 10.4 fl (6.2-12.0); Monocyte# 0.64 X10^3/uL; Monocyte% 9.4 % (0-10); NRBC Flagged by Analyzer 0 % (0-5); Neutrophil % 68.6 % (47-70); Platelet Count 235 K/mm3 (150-450); RBC Distribution Width SD 48.9 fl (35.1-43.9); Red Blood Count 4.37 M/mm3 (4.6-6.2); White Blood Count 6.8 K/mm3 (4.4-11.0)
[2020-12-29 13:10] LABS: Vitamin B12 381 pg/mL (211-911)
[2020-12-29 13:19] LABS: Hemoglobin A1c 5.6 % (3.8-5.6)
[2020-12-29 13:35] LABS: AST(SGOT) 15 U/L (15-37); Alanine Aminotransfer ALT/SGPT 15 U/L (16-61); Albumin, Serum 3.5 g/dL (3.2-5.0); Alkaline Phosphatase 78 U/L (45-117); Anion Gap 5 (5-15); BUN 23 mg/dL (7-18); BUN/Creat Ratio 14.5 RATIO (10-20); Chloride 104 mmol/L (98-107); Cholesterol 192 mg/dL (200); Creatinine, Serum 1.59 mg/dL (0.70-1.30); EST Glomerular Filtration Rate 45 mL/min (>60); Est Glom Filt Rate - Afr Amer 54 mL/min (>60); Globulin 3.5 g/dL (2.2-4.2); Glucose 109 mg/dL (74-106); High Density Lipoprotein 72 mg/dL; Potassium 4.6 mmol/L (3.5-5.1); Sodium Level 138 mmol/L (136-145); Triglycerides 197 mg/dL; Uric Acid 7.1 mg/dL (3.5-7.2); Very Low Density Lipoprotein 39 mg/dL (5-40)
== END ==
PROVIDERS: PCP Family Medicine; Referring Provider Family Medicine; Visit Provider Family Medicine
DX: M10.9 Gout, unspecified (principal); I12.9 Hypertensive chronic kidney disease with stage 1 through stage 4 chronic kidney disease, or unspecified chronic kidney disease; N18.30 Chronic kidney disease, stage 3 unspecified; E11.22 Type 2 diabetes mellitus with diabetic chronic kidney disease; E53.8 Deficiency of other specified B group vitamins
CPT/HCPCS: 36415; 80053; 80061; 82607; 83036; 84550; 85025

== ENCOUNTER → 2021-01-21 09:40 | Outpatient (CLI) | payer MEDICARE, SELFPAY ==
[2020-08-13 13:33] VITALS: BMI 26.6
--- NOTE | 2021-01-21 09:43 | ART_ITS ---
Reason For Study: Atherosclerosis Procedure A bilateral lower extremity continuous wave Doppler with analog waveform analysis and ankle brachial indexes. Left Segmental Pressures Left brachial= 135mmHg. Left posterior tibial artery = 158mmHg. Left dorsalis pedis artery = 149mmHg. Left digit = 97 mmHg. The left dorsalis pedis waveforms are triphasic. The left posterior tibial artery waveforms are triphasic. Right Segmental Pressures Right brachial= 129mmHg. Right posterior tibial artery = 158mmHg. Right dorsalis pedis artery = 151mmHg. Right digit = 107 mmHg. The right dorsalis pedis waveforms are biphasic. The right posterior tibial artery waveforms are triphasic. Indices The right ankle brachial index by the dorsalis pedis is 1.12. The right ankle brachial index by the posterior tibial artery is 1.17. The right digital-brachial index is 0.79. The left ankle brachial index by the dorsalis pedis is 1.10. The left ankle brachial index by the posterior tibial artery is 1.17. The left digital-brachial index is 0.72. VL/Ankle Brachial Index Interpretation Summary No evidence of occlussive disease with ANTONELLA 1.17 and 1.17. Ordering Physician: Aly Saunders Referring Physician: Monserrat Wilson Performed By: Roxana Alvarado RVT
== END ==
PROVIDERS: PCP Family Medicine; Referring Provider Surgery Vascular Surgery; Visit Provider Surgery Vascular Surgery
DX: I70.213 Atherosclerosis of native arteries of extremities with intermittent claudication, bilateral legs (principal)
CPT/HCPCS: 93922

== ENCOUNTER → 2021-05-05 16:16 | Outpatient (CLI) | payer MEDICARE, SELFPAY ==
[2020-08-13 13:33] VITALS: BMI 26.6
[2021-05-05 17:45] LABS: Protein, Urine (Random) 16.4 mg/dL (<11.9); Protein:Creat Ratio 113 mg/g CRE (0-200)
[2021-05-05 17:47] LABS: Albumin, Serum 3.6 g/dL (3.2-5.0); BUN 22 mg/dL (7-18); BUN/Creat Ratio 12.3 RATIO (10-20); Calcium,Total 8.5 mg/dL (8.5-10.1); Chloride 108 mmol/L (98-107); Creatinine, Serum 1.79 mg/dL (0.70-1.30); EST Glomerular Filtration Rate 39 mL/min (>60); Est Glom Filt Rate - Afr Amer 47 mL/min (>60); Glucose 94 mg/dL (74-106); Phosphorus 3.4 mg/dL (2.5-4.9); Potassium 4.3 mmol/L (3.5-5.1); Sodium Level 140 mmol/L (136-145)
[2021-05-05 17:49] LABS: Vitamin D,25 Hydroxy 39.3 ng/mL
[2021-05-05 18:01] LABS: PTHIN 62.3 pg/mL (18.4-80.1)
== END ==
PROVIDERS: PCP Family Medicine; Referring Provider Internal Medicine Nephrology; Visit Provider Internal Medicine Nephrology
DX: E55.9 Vitamin D deficiency, unspecified (principal); N18.31 Chronic kidney disease, stage 3a; Z13.0 Encounter for screening for diseases of the blood and blood-forming organs and certain disorders involving the immune mechanism
CPT/HCPCS: 36415; 80069; 82306; 82570; 83970; 84156

== ENCOUNTER → 2021-05-12 15:42 | Outpatient (CLI) | payer MEDICARE, SELFPAY ==
[2020-08-13 13:33] VITALS: BMI 26.6
[2021-05-12 17:40] LABS: Hematocrit 43.8 % (40-54); Hemoglobin 14.2 g/dL (13.0-16.5); Mean Corp Hgb Conc 32.4 g/dL (32-36); Mean Corpuscular Hgb 32.7 pg (27.0-32.0); Mean Corpuscular Volume 100.9 fL (80-94); Mean Platelet Vol. 10.8 fl (6.2-12.0); Platelet Count 266 K/mm3 (150-450); RBC Distribution Width CV 12.8 % (11.6-14.6); RBC Distribution Width SD 48.3 fl (35.1-43.9); Red Blood Count 4.34 M/mm3 (4.6-6.2); White Blood Count 9.5 K/mm3 (4.4-11.0)
== END ==
PROVIDERS: PCP Family Medicine; Visit Provider Internal Medicine Nephrology
DX: N18.31 Chronic kidney disease, stage 3a (principal); E55.9 Vitamin D deficiency, unspecified; Z13.0 Encounter for screening for diseases of the blood and blood-forming organs and certain disorders involving the immune mechanism
CPT/HCPCS: 85027

== ENCOUNTER → 2021-06-23 17:02 | Outpatient (CLI) | payer MEDICARE, SELFPAY | PROVIDERS: PCP Family Medicine; Visit Provider Physician Assistant | DX: R53.83 Other fatigue (principal) | CPT/HCPCS: 87635; U0005; U0003 ==

== ENCOUNTER → 2021-08-31 11:40 | Outpatient (CLI) | payer MEDICARE, SELFPAY ==
[2021-08-31 15:06] LABS: Absolute Lymphocyte Count 1.59 X10^3/uL (0.83-4.51); Absolute Neutrophil Count 5.3 X10^3/uL (2.0-7.7); Basophil# 0.05 X10^3/uL; Basophil% 0.6 % (0-1); Eosinophil# 0.12 X10^3/uL; Eosinophils% 1.5 % (0-5); Hematocrit 44.3 % (40-54); Hemoglobin 14.7 g/dL (13.0-16.5); Lymphocyte # 1.59 X10^3/ul (0.83-4.51); Lymphocyte % 20.2 % (19-41); Mean Corp Hgb Conc 33.2 g/dL (32-36); Mean Corpuscular Hgb 33.7 pg (27.0-32.0); Mean Corpuscular Volume 101.6 fL (80-94); Mean Platelet Vol. 11.1 fl (6.2-12.0); Monocyte# 0.74 X10^3/uL; Monocyte% 9.4 % (0-10); NRBC Flagged by Analyzer 0 % (0-5); Neutrophil # 5.33 X10^3/uL (2.7-7.7); Neutrophil % 67.9 % (47-70); Platelet Count 248 K/mm3 (150-450); RBC Distribution Width CV 13.1 % (11.6-14.6); RBC Distribution Width SD 49.5 fl (35.1-43.9); Red Blood Count 4.36 M/mm3 (4.6-6.2); White Blood Count 7.9 K/mm3 (4.4-11.0)
[2021-08-31 15:21] LABS: Anion Gap 6 (5-15); BUN 22 mg/dL (7-18); BUN/Creat Ratio 14.5 RATIO (10-20); Calcium,Total 9.2 mg/dL (8.5-10.1); Chloride 105 mmol/L (98-107); Creatinine, Serum 1.52 mg/dL (0.70-1.30); EST Glomerular Filtration Rate 47 mL/min (>60); Est Glom Filt Rate - Afr Amer 57 mL/min (>60); Glucose 104 mg/dL (74-106); Sodium Level 138 mmol/L (136-145)
== END ==
PROVIDERS: PCP Family Medicine; Referring Provider Physician Assistant Surgical; Visit Provider Physician Assistant Surgical
DX: Z01.818 Encounter for other preprocedural examination (principal)
CPT/HCPCS: 36415; 80048; 85025

== ENCOUNTER 2021-11-20 08:33 | Outpatient (CLI) | payer MEDICARE, SELFPAY ==
[2021-11-20 09:45] LABS: Anion Gap 4 (5-15); BUN 26 mg/dL (7-18); BUN/Creat Ratio 18.2 RATIO (10-20); Calcium,Total 8.7 mg/dL (8.5-10.1); Chloride 107 mmol/L (98-107); Creatinine, Serum 1.43 mg/dL (0.70-1.30); EST Glomerular Filtration Rate 51 mL/min (>60); Est Glom Filt Rate - Afr Amer 61 mL/min (>60); Glucose 121 mg/dL (74-106); Potassium 4.4 mmol/L (3.5-5.1); Sodium Level 140 mmol/L (136-145)
[2021-11-20 09:47] LABS: Protein, Urine (Random) 10.6 mg/dL (<11.9); Protein:Creat Ratio 140 mg/g CRE (0-200)
== END 2021-11-20 23:59 | disposition home or self-care (01) ==
LOC: LAB 08:37
PROVIDERS: PCP Family Medicine; Referring Provider Internal Medicine Nephrology; Visit Provider Internal Medicine Nephrology
DX: N18.31 Chronic kidney disease, stage 3a (principal)
CPT/HCPCS: 36415; 80048; 82570; 84156

== ENCOUNTER 2022-03-23 17:00 | Outpatient (RCR) | payer MEDICARE, SELFPAY ==
--- NOTE | 2022-08-17 09:50 | HP.PT.NRP ---
TEMO GARRISON was seen in my office for initial evaluation on 02/14/22. The following Plan of Care was established for this patient: Initial Frequency: 1x/Week Initial Duration: 6 Weeks This patient was last seen in our office . Pertinent comments regarding their Physical therapy will appear below: Patient has not attended PT in over 30 days appropriate for d/c and return to MD for further evaluation PRN At this point I will be discontinuing this patient from physical therapy. I would be happy to see this patient again in the future if found appropriate by the physician. Thank you! Julia Martin, ROSETTET
== END 2022-03-23 19:00 | disposition home or self-care (01) ==
LOC: PT 17:00
PROVIDERS: PCP Family Medicine
DX: Z96.651 Presence of right artificial knee joint (principal); I73.00 Raynaud's syndrome without gangrene

== ENCOUNTER 2022-05-09 09:57 | Emergency (ER) | payer MEDICARE, SELFPAY ==
[2022-05-09 09:58] VITALS: BP 135/85; PULSE 97; RESP 16; TEMP 36.2; O2SAT 99; BMI 26.3
--- NOTE | 2022-05-09 10:19 | CT_ITS ---
STUDY: CT CHEST, ABDOMEN T PELVIS WITHOUT CONTRAST REASON FOR EXAM: Male, 81 years old. Right post chest injury -- hx ckd RADIATION DOSAGE (If Supplied By Facility): CTDIvol = ( 16.44 ) mGy, DLP = ( 1555.91 ) mGycm TECHNIQUE: Transaxial imaging was performed without the administration of intravenous contrast material. Multiplanar coronal and sagittal images were reformatted. Individualized dose optimization techniques were used for this CT. COMPARISON: Comparison is made with prior CT scan of the abdomen and pelvis dated 03/25/2017. FINDINGS: CHEST Mild degree of increased linear markings at the lung bases slightly more prominent on the left side suggestive of a scarring. There is no demonstrated pleural abnormality. There are calcifications of the coronary arteries. 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 Calcification of the mitral valve annulus. Minimal anterior pericardial thickening. There are multiple small lymph nodes within the mediastinum, which are normal in size and morphology most compatible with reactive lymph hyperplasia. Normal hilar regions. Normal unenhanced pulmonary arteries. There is atherosclerotic calcification of the aortic arch with tortuosity and elongation of the aortic arch and descending thoracic aorta. There are multi-level degenerative changes of the thoracic spine. Increased kyphosis. ABDOMEN Normal liver. Normal gallbladder and extrahepatic biliary system. Normal spleen. Normal pancreas. Normal bilateral adrenal glands. Normal right kidney. 3 mm calculus in the lower pole calyx of the left kidney. Nonspecific mild degree of bilateral perinephric stranding. Normal visualized stomach. Normal small intestine. Normal colon. The appendix is visualized and appears normal. There is diffuse atherosclerotic calcification of the abdominal aorta, without a demonstrated aneurysm. Normal inferior vena cava. Normal retroperitoneum. Normal abdominal wall. There are diffuse degenerative changes of the visualized lumbar spine. PELVIS Normal urinary bladder. Small right hydrocele. There is no pelvic fluid. There is no pelvic lymphadenopathy or mass lesion. There is diffuse atherosclerotic calcification of the pelvic arteries. CT/CT Chest, Abd, Pelvis WO Cont IMPRESSION: No acute abnormality is seen. Electronically Signed: Adrien Call MD at 11:16 EDT ,
--- NOTE | 2022-05-09 10:19 | EKG12_ITS ---
Test Reason : syncope Blood Pressure : / mmHG Vent. Rate : 087 BPM Atrial Rate : 087 BPM P-R Int : 160 ms QRS Dur : 094 ms QT Int : 378 ms P-R-T Axes : 057 -17 059 degrees QTc Int : 454 ms Normal sinus rhythm Normal ECG Confirmed by JAMES RÍOS, RONNI ([id number]), editorial project manager NANCY JONES ([id number]) on 05/10/2022 11:34:27 AM Referred By: Confirmed By:RONNI RAMIREZ MD
--- NOTE | 2022-05-09 10:30 | EDS_ITS ---
HPI History of Present Illness Chief Complaint: Syncope Informant: patient and spouse/S.O. Narrative Narrative: Patient presents syncopal episode back injury occurring yesterday 4:30 PM. Getting out of a chair when he was walking sliding went down. No head injuries. He hit the floor. He is on Eliquis for history of left lower extremity DVT in 2019. Pain is back with movement. History of vasovagal syncope when he was younger negative work-ups. Per spouse has had 4 episodes in the last month. He has had work-up previously with no acute findings. Denies chest prodromal chest pains lightheaded symptoms or shortness of breath. No recent vomiting or di arrhea. No urinary symptoms. Does have history of hypertension, diabetes, hyperlipidemia, chronic kidney disease history. Primary concern today is his back injury. Pain is 1 currently up to 9 with movement. Prior similar symptoms: Yes PFSH PFSH Medical History Cataracts, bilateral Chronic kidney disease, stage 3 Encounter for screening for COVID-19 Gout HTN (hypertension) Hyperlipidemia Hypertriglyceridemia inspire device implant intracular lenses x2 Osteoarthritis Prostate Tissues Raynaud disease Skin cancer Home Medications acyclovir 200 mg capsule 400 mg PO BID 04/17/14 [History Last Taken 01/05/18] atorvastatin 10 mg tablet 20 mg PO DAILY cholesterol 04/17/14 [History Last Taken 01/05/18] duloxetine 60 mg capsule,delayed release 60 mg PO BID depression 04/17/14 [History Last Taken 01/06/18] losartan 25 mg tablet 25 mg PO QHS blood pressure 04/17/14 [History Last Taken 01/05/18] apixaban 5 mg tablet 5 mg PO BID 04/23/20 [History Last Taken Unknown] nortriptyline 10 mg capsule 20 mg PO QHS 04/23/20 [History Last Taken Unknown] ascorbate calcium (vitamin C) 500 mg tablet 2,000 mg PO DAILY 08/13/20 [History Last Taken Unknown] cholecalciferol (vitamin D3) 25 mcg (1,000 unit) capsule 2,000 unit PO DAILY vitamin 08/13/20 [History Last Taken Unknown] dupilumab 300 mg/2 mL subcutaneous pen injector (Dupixent) 300 mg subcut Q2W 08/13/20 [History Last Taken Unknown] loperamide 2 mg capsule 2 mg PO .every other day 08/13/20 [History Last Taken Unknown] mecobalamin (vitamin B12) 10,000 mcg solution for injection mcg IM MONTHLY 08/13/20 [History Last Taken Unknown] OneTouch Verio test strips (blood sugar diagnostic) #100 ea 05/26/21 [Rx Last Taken Unknown] atorvastatin 20 mg tablet 20 mg PO DAILY 06/04/21 [History Last Taken Unknown] sitagliptin 50 mg tablet 50 mg PO DAILY #90 tabs 06/04/21 [Rx Last Taken Unknown] oxycodone 5 mg tablet 5 mg PO Q6H PRN pain 3 days #12 tabs 05/09/22 [Rx Last Taken Unknown] Allergy/AdvReac Type Severity Reaction Status Date / Time tamsulosin Allergy Severe Blacked Verified 05/09/22 10:00 out, Passed out meloxicam Allergy Unknown Decrease Verified 05/09/22 10:00 in kidney function alfuzosin HCl Allergy Unknown Verified 05/09/22 10:00 [From Uroxatral] ezetimibe [From Zetia] Allergy Pain in Verified 05/09/22 10:00 joints pramipexole di-HCl Allergy Other Verified 05/09/22 10:00 [From Mirapex] simvastatin [From Zocor] Allergy Pain in Verified 05/09/22 10:00 joints lisinopril AdvReac Other Verified 05/09/22 10:00 Family History Other Arthritis Breast cancer FH: defects Surgical History H/O cataract removal with insertion of prosthetic lens History of total right knee replacement (TKR) Social History Smoking Status: Former smoker alcohol intake: current alcohol intake frequency: 0-2 drinks per day substance use type: does not use what type of physical activity do you participate in: none ROS ROS ED Constitutional Constitutional ED: Denies chills, fever(s) or sweats Eyes Eyes: Denies change in vision ENT ENT ED: Denies dysphagia or sore throat Cardiovascular Cardiovascular: Reports other Details: Syncope ; Denies chest pain, leg edema, palpitations or racing heartbeat Respiratory/Chest Respiratory/Chest: Denies cough, dyspnea or dyspnea on exertion Gastrointestinal Gastrointestinal: Denies abdominal pain, diarrhea, nausea or vomiting Genitourinary Genitourinary ED: Denies dysuria, hematuria or urinary frequency Musculoskeletal Musculoskeletal: Reports back pain; Denies extremity pain or neck pain Integumentary Denies rash or wounds Neurologic Neurologic: Denies headache(s), paresthesias or weakness EXAM Physical Exam Const Vital Signs: 05/09/22 09:58 05/09/22 10:13 05/09/22 12:04 Temperature 97.1 F L Temperature Source Temporal Pulse Rate 97 87 Respiratory Rate 16 18 Respiratory Effort Normal Non-Labored Blood Pressure 135/85 H 137/76 H Blood Pressure Mean 101 96 Pulse Ox 99 99 Oxygen Delivery Method Room Air Room Air Room Air 05/09/22 12:43 Temperature Temperature Source Pulse Rate 71 Respiratory Rate 15 Respiratory Effort Blood Pressure 134/69 H Blood Pressure Mean Pulse Ox 98 Oxygen Delivery Method Positive well nourished and well developed Constitutional Narrative: GCS 15. General Appearance ED: well developed and NAD HEENT Reports moist mucous membranes normocephalic and atraumatic Eyes PERRL, EOMs intact bilaterally and conjunctivae normal General Eye ED: Yes normal appearance of both eyes Neck no lymphadenopathy and supple Neck Narrative: No midline tenderness. General: Negative for tenderness Chest Wall Chest: Negative for tenderness Resp normal respiratory effort and normal air movement Resp Narrative: Symmetric breath sounds. Effort and Inspection: symmetric chest movement; Negative for respiratory distress Cardio regular rate, regular rhythm and no murmurs Peripheral Pulses: pulses 2+ throughout GI normal to inspection, nondistended, normoactive bowel sounds and non-tender Palpation: Negative for guarding or rebound tenderness present Back/Spine Back/Spine Narrative: No midline thoracic or lumbar tenderness. No step-offs. Tender palpation posterior ribs on the right side without crepitus or ecchymosis. Extremity normal to inspection General Extremety ED: Negative for edema or tenderness General Extremity: Negative for edema Neuro oriented x3 and no sensory deficits noted Sensorium / Orientation: awake and alert Skin no rashes or lesions noted and no wounds MDM MDM MDM Narrative Medical decision making narrative: CheckEKG normal syncopal episode. Yesterday he has been ambulatory with no return of symptoms. Labs stable chronic kidney disease with stable creatinine 1.58. He is concerned of his back injury noncontrast scan chest abdomen pelvis reviewed by myself read by radiology shows no fractures or acute injuries. He will use Tylenol as needed incentive spirometry provided to use. Prescription oxycodone to use in addition as needed. He will follow-up with his PCP for reevaluation and discussion of his anticoagulation medicines as he reports to me he only a single blood clot in his left leg in the past in 2019. He will return if any worsening symptoms. All questions were answered. Lab Data Attestation: I reviewed the patient's lab results. Labs: Laboratory Results - last 24 hr 05/09/22 05/09/22 05/09/22 10:36 10:36 10:36 WBC 11.4 H RBC 4.46 L Hgb 14.8 Hct 44.8 MCV 100.4 H MCH 33.2 H MCHC 33.0 RDW Std Deviation 48.3 H RDW Coeff of Zuleyka 13.0 Plt Count 246 MPV 10.3 Immature Gran % (Auto) 0.600 Neut % (Auto) 81.5 H Lymph % (Auto) 11.0 L Josephine % (Auto) 6.1 Eos % (Auto) 0.4 Baso % (Auto) 0.4 Absolute Neuts (auto) 9.3 H Absolute Lymphs (auto) 1.25 Nucleated RBC % 0 PT 12.2 INR 0.9 APTT 27.8 Sodium 138 Potassium 4.4 Chloride 105 Carbon Dioxide 30.0 Anion Gap 3 L BUN 20 H Creatinine 1.58 H Estim Creat Clear Calc 36.08 Est GFR (MDRD) Af Amer 55 L Est GFR (MDRD) Non-Af 45 L BUN/Creatinine Ratio 12.7 Glucose 147 H Calcium 9.1 Radiography Diagnostic Testing: Clinical Impression(s) from Imaging Studies Chest/Abdomen/Pelvis CT 05/09/22 10:19 IMPRESSION: No acute abnormality is seen. Electronically Signed: Adrien Call MD at 11:16 EDT , EKG Initial EKG: Attestation: I personally reviewed and interpreted this EKG as follows: Comments: Sinus rate of 87, no ST or T wave changes QTC 454. Discharge Plan Triage Chief Complaint: Syncope ED Provider: Derick Mckeon Dx/Rx/DC Orders Clinical Impression: Syncope, Back contusion, Adequate anticoagulation on anticoagulant therapy, Chronic kidney disease Instructions: Causes of Syncope, ED Back Contusion Prescriptions: New oxycodone 5 mg tablet 5 mg PO Q6H PRN (Reason: pain) 3 Days Qty: 12 0RF No Action loperamide 2 mg capsule 2 mg PO .every other day Label Comments: 1 capsule by mouth single dose Dupixent Pen 300 mg/2 mL pen injector 300 mg SC Q2W mecobalamin (vitamin B12) 10,000 mcg recon soln IM MONTHLY atorvastatin 20 mg tablet 20 mg PO DAILY sitagliptin 50 mg tablet 50 mg PO DAILY Qty: 90 3RF atorvastatin 10 MG tablet 20 mg PO DAILY Label Comments: TAKES AT HS ON MONDAY losartan 25 MG tablet 25 mg PO QHS Label Comments: blood pressure acyclovir 200 MG capsule 400 mg PO BID duloxetine 60 MG capsule 60 mg PO BID Label Comments: enhance mood cholecalciferol (vitamin D3) 25 mcg (1,000 unit) capsule 2,000 unit PO DAILY Label Comments: vitamin,supplement ascorbate calcium (vitamin C) 500 mg tablet 2,000 mg PO DAILY nortriptyline 10 MG capsule 20 mg PO QHS apixaban 5 MG tablet 5 mg PO BID (DME) OneTouch Verio test strips Strip See Rx Instructions .ROUTE .MEDSUPPLY Qty: 100 6RF Rx Instructions: 3x/day Primary Care Provider: Monserrat Wilson Referrals: Monserrat Wilson MD [Primary Care Provider] - 3-5 Days Activity Restrictions/Additional Instructions: Syncope a normal EKG, normal labs. No current Holter monitors available, follow-up with your doctor for Holter monitor. With your back injury trauma scan chest abdomen pelvis shows no fractures or organ injury. You may take Tylenol as needed use incentive spirometer every 2 hours while awake. Use additional oxycodone as needed. Follow-up with your doctor. Discussed with your doctor your Eliquis if this is still required since you report only 1 blood clot in your leg since 2019. Return if any worsening symptoms. Disposition Disposition: Home, Self Care Discharge Date/Time: 05/09/22 12:44
[2022-05-09 10:48] LABS: Absolute Lymphocyte Count 1.25 X10^3/uL (0.83-4.51); Absolute Neutrophil Count 9.3 X10^3/uL (2.0-7.7); Basophil# 0.05 X10^3/uL; Basophil% 0.4 % (0-1); Eosinophil# 0.04 X10^3/uL; Eosinophils% 0.4 % (0-5); Hematocrit 44.8 % (40-54); Hemoglobin 14.8 g/dL (13.0-16.5); Lymphocyte # 1.25 X10^3/ul (0.83-4.51); Mean Corpuscular Hgb 33.2 pg (27.0-32.0); Mean Corpuscular Volume 100.4 fL (80-94); Mean Platelet Vol. 10.3 fl (6.2-12.0); Monocyte# 0.69 X10^3/uL; Monocyte% 6.1 % (0-10); NRBC Flagged by Analyzer 0 % (0-5); Neutrophil # 9.29 X10^3/uL (2.7-7.7); Neutrophil % 81.5 % (47-70); Platelet Count 246 K/mm3 (150-450); RBC Distribution Width SD 48.3 fl (35.1-43.9); Red Blood Count 4.46 M/mm3 (4.6-6.2); White Blood Count 11.4 K/mm3 (4.4-11.0)
[2022-05-09 10:58] LABS: International Normalized Ratio 0.9; Prothrombin Time (Protime)PT. 12.2 SECONDS (11.7-14.9)
[2022-05-09 10:59] LABS: Anion Gap 3 (5-15); BUN 20 mg/dL (7-18); BUN/Creat Ratio 12.7 RATIO (10-20); Calcium,Total 9.1 mg/dL (8.5-10.1); Chloride 105 mmol/L (98-107); Creatinine, Serum 1.58 mg/dL (0.70-1.30); EST Glomerular Filtration Rate 45 mL/min (>60); Est Glom Filt Rate - Afr Amer 55 mL/min (>60); Estimated Creatinine Clearance 36.08 ml/min; Glucose 147 mg/dL (74-106); Partial Thromboplast Time 27.8 Seconds (24.1-36.2); Potassium 4.4 mmol/L (3.5-5.1); Sodium Level 138 mmol/L (136-145)
[2022-05-09 12:04] VITALS: BP 137/76; PULSE 87; RESP 18; O2SAT 99
[2022-05-09 12:43] VITALS: BP 134/69; PULSE 71; RESP 15; O2SAT 98
== END 2022-05-09 12:44 | disposition home or self-care (01) ==
PROVIDERS: Emergency Provider Emergency Medicine; PCP Family Medicine; Visit Provider Emergency Medicine
DX: R55 Syncope and collapse (principal); N18.30 Chronic kidney disease, stage 3 unspecified; S20.229A Contusion of unspecified back wall of thorax, initial encounter; Z87.891 Personal history of nicotine dependence; Z79.01 Long term (current) use of anticoagulants; Z86.718 Personal history of other venous thrombosis and embolism; X58.XXXA Exposure to other specified factors, initial encounter
CPT/HCPCS: 71250; 74176; 80048; 85025; 85610; 85730; 93005; 99283; A4216

== ENCOUNTER 2022-05-12 12:31 | Emergency (ER) | payer MEDICARE, SELFPAY ==
[2022-05-12 12:31] VITALS: RESP 18
[2022-05-12 12:32] VITALS: BP 94/56; PULSE 70; RESP 14; TEMP 35.7; BMI 26.9
--- NOTE | 2022-05-12 13:29 | ED.VIS.BACK ---
HPI History of Present Illness Chief Complaint: Back Informant: patient Onset/Context/Timing Onset: Days (5) Context: Sudden Onset Injury: fall Timing: Continuous and Waxes and wanes Quality: - (Cramping) Location: Thoracic and Lumbar Worsened by: improves with Movement Relieved by: Remaining Still Associated Symptoms Associated Symptoms: Constipation; Negative for Numbness, Tingling, Radiation to Right Leg, Radiation to Left Leg, Fever, Abdominal Pain, Dysuria, Unable to Ambulate, Unable to Transfer, Urinary Retention, Urinary Incontinence or Fecal Incontinence Narrative Narrative: Patient presents with right-sided back pain that has been getting worse over the last 5 days. Patient states he has a history of vasovagal syncope and had an episode 5 days ago. Patient was seen in the emergency department after this. Patient had x-rays which were negative. Patient states his pain is getting progressively worse. Patient states the pain is over the right lower thoracic and lumbar area. Patient states the pain is worse with movement. Patient admits to some constipation but denies any incontinence of urine or stool. Patient denies any urinary retention. Patient denies any abdominal pain. Patient states he is having some blood in his bowel movements. [facility] Medical History Cataracts, bilateral Chronic kidney disease, stage 3 Encounter for screening for COVID-19 Gout HTN (hypertension) Hyperlipidemia Hypertriglyceridemia inspire device implant intracular lenses x2 Osteoarthritis Prostate Tissues Raynaud disease Skin cancer Home Medications acyclovir 200 mg capsule 400 mg PO BID 04/17/14 [History Last Taken 01/05/18] atorvastatin 10 mg tablet 20 mg PO DAILY cholesterol 04/17/14 [History Last Taken 01/05/18] duloxetine 60 mg capsule,delayed release 60 mg PO BID depression 04/17/14 [History Last Taken 01/06/18] losartan 25 mg tablet 25 mg PO QHS blood pressure 04/17/14 [History Last Taken 01/05/18] apixaban 5 mg tablet 5 mg PO BID 04/23/20 [History Last Taken Unknown] nortriptyline 10 mg capsule 20 mg PO QHS 04/23/20 [History Last Taken Unknown] ascorbate calcium (vitamin C) 500 mg tablet 2,000 mg PO DAILY 08/13/20 [History Last Taken Unknown] cholecalciferol (vitamin D3) 25 mcg (1,000 unit) capsule 2,000 unit PO DAILY vitamin 08/13/20 [History Last Taken Unknown] dupilumab 300 mg/2 mL subcutaneous pen injector (Dupixent) 300 mg subcut Q2W 08/13/20 [History Last Taken Unknown] loperamide 2 mg capsule 2 mg PO .every other day 08/13/20 [History Last Taken Unknown] mecobalamin (vitamin B12) 10,000 mcg solution for injection mcg IM MONTHLY 08/13/20 [History Last Taken Unknown] Ad.IQuch Verio test strips (blood sugar diagnostic) #100 ea 05/26/21 [Rx Last Taken Unknown] atorvastatin 20 mg tablet 20 mg PO DAILY 06/04/21 [History Last Taken Unknown] sitagliptin 50 mg tablet 50 mg PO DAILY #90 tabs 06/04/21 [Rx Last Taken Unknown] oxycodone 5 mg tablet 5 mg PO Q6H PRN pain 3 days #12 tabs 05/09/22 [Rx Last Taken Unknown] hydrocodone-acetaminophen 5-325mg 5mg-325mg 1 tab PO Q6H PRN PRN Pain 3 days #12 TABLETS 05/12/22 [Rx Last Taken Unknown] Allergy/AdvReac Type Severity Reaction Status Date / Time tamsulosin Allergy Severe Blacked Verified 05/09/22 10:00 out, Passed out meloxicam Allergy Unknown Decrease Verified 05/09/22 10:00 in kidney function alfuzosin HCl Allergy Unknown Verified 05/09/22 10:00 [From Uroxatral] ezetimibe [From Zetia] Allergy Pain in Verified 05/09/22 10:00 joints pramipexole di-HCl Allergy Other Verified 05/09/22 10:00 [From Mirapex] simvastatin [From Zocor] Allergy Pain in Verified 05/09/22 10:00 joints lisinopril AdvReac Other Verified 05/09/22 10:00 Family History Other Arthritis Breast cancer FH: defects Surgical History H/O cataract removal with insertion of prosthetic lens History of total right knee replacement (TKR) Social History Smoking Status: Former smoker alcohol intake: current alcohol intake frequency: 0-2 drinks per day substance use type: does not use what type of physical activity do you participate in: none ROS ROS ED Constitutional Constitutional ED: Denies chills or fever(s) Eyes Eyes: Denies blurry vision or change in vision ENT ENT ED: Denies rhinorrhea or sore throat Cardiovascular Cardiovascular: Denies chest pain or palpitations Respiratory/Chest Respiratory/Chest: Denies cough or dyspnea Gastrointestinal Gastrointestinal: Reports nausea and vomiting Genitourinary Genitourinary ED: Denies dysuria or hematuria Musculoskeletal Musculoskeletal: Reports back pain; Denies neck pain Integumentary Reports rash; Denies abscess Neurologic Neurologic: Denies headache(s) or weakness Allergic/Immunologic Allergic/Immunologic ED: Denies mouth swelling or urticaria EXAM Physical Exam Const Vital Signs: 05/12/22 12:32 05/12/22 12:31 05/12/22 14:31 Temperature 96.3 F L Temperature Source Temporal Pulse Rate 70 Respiratory Rate 14 18 18 Blood Pressure 94/56 L Blood Pressure Mean 68 Pulse Ox Oxygen Delivery Method 05/12/22 16:00 Temperature Temperature Source Pulse Rate 110 H Respiratory Rate 22 H Blood Pressure 165/93 H Blood Pressure Mean 117 Pulse Ox 97 Oxygen Delivery Method Room Air Positive well nourished and well developed General Appearance ED: well developed and NAD HEENT Reports moist mucous membranes Neck supple and no JVD Resp normal respiratory effort and clear to auscultation bilaterally Cardio regular rate, regular rhythm and no murmurs GI normal to inspection, nondistended, normoactive bowel sounds and non-tender Palpation: soft Back/Spine Back/Spine Narrative: There is tenderness over the right lower thoracic area and lumbar area. There is no midline tenderness. There is no bony crepitance or step-off. There is no edema or ecchymosis. Range of motion was slightly limited in all motion secondary to pain. Strength is 5/5 bilaterally in lower extremities. There are no sensory deficits. Lumbar Spine / Lower Back: ROM limited and straight leg raise negative bilaterally Extremity normal to inspection General Extremety ED: Negative for edema or tenderness General Extremity: Negative for edema Neuro oriented x3, CN's II-XII intact bilaterally and no sensory deficits noted Sensorium / Orientation: alert Motor Exam: strength 5/5 throughout Psych mental status grossly normal Skin no rashes or lesions noted MDM MDM MDM Narrative Medical decision making narrative: Patient was given morphine and Zofran. Patient was given IV fluids. CBC shows a mild leukocytosis of 15.3. PT with INR and PTT were within normal limits. Comprehensive metabolic profile showed a creatinine of 2.6 and a BUN of 27. These are mildly increased from prior results. Urinalysis shows occult blood of 250 with 50-100 red blood cells. There is no evidence of urinary tract infection. CT scan of the abdomen pelvis was obtained. There is a 3.9 mm calculus at the left ureterovesicular junction. There is mild hydronephrosis and hydroureter. There are no other acute abnormalities. This was interpreted by the radiologist and reviewed by myself. Patient was advised of his findings. Patient states that the oxycodone that was prescribed for him 3 days ago does not seem to be adequate for his pain. Because of this, patient was given a prescription for [place] to take instead. Patient was given a repeat dose of morphine here. Patient was instructed to follow-up with his primary care physician and urologist in 3 to 5 days. Patient was instructed return if worse in any way. Patient and understood and were agreeable with the plan. All questions were answered. Lab Data Attestation: I reviewed the patient's lab results. Labs: Laboratory Results - last 24 hr 05/12/22 05/12/22 05/12/22 14:00 14:00 14:00 WBC 15.3 H RBC 4.86 Hgb 16.1 Hct 47.9 MCV 98.6 H MCH 33.1 H MCHC 33.6 RDW Std Deviation 45.6 H RDW Coeff of Zuleyka 13.0 Plt Count 252 MPV 10.1 Immature Gran % (Auto) 0.700 Neut % (Auto) 81.5 H Lymph % (Auto) 8.[address] [place] % (Auto) 9.2 Eos % (Auto) 0.1 Baso % (Auto) 0.3 Absolute Neuts (auto) 12.5 H Absolute Lymphs (auto) 1.26 Nucleated RBC % 0 PT 13.7 INR 1.1 APTT 29.9 Sodium 138 Potassium 4.5 Chloride 102 Carbon Dioxide 29.0 Anion Gap 7 BUN 27 H Creatinine 2.60 H Estim Creat Clear Calc 21.92 Est GFR (MDRD) Af Amer 31 L Est GFR (MDRD) Non-Af 25 L BUN/Creatinine Ratio 10.4 Glucose 141 H Calcium 8.9 Total Bilirubin 0.90 AST 13 L ALT 14 L Alkaline Phosphatase 71 Total Protein 7.6 Albumin 3.6 Globulin 4.0 Albumin/Globulin Ratio 0.9 Urine Color Urine Clarity Urine pH Ur Specific [place] Urine Protein Urine Glucose (UA) Urine Ketones Urine Occult Blood Urine Nitrite Urine Bilirubin Urine Urobilinogen Ur Leukocyte Esterase Urine RBC Urine WBC Ur Squamous Epith Cells Urine Bacteria Hyaline Casts Urine Mucus 05/12/22 16:35 WBC RBC Hgb Hct MCV MCH MCHC RDW Std Deviation RDW Coeff of Zuleyka Plt Count MPV Immature Gran % (Auto) Neut % (Auto) Lymph % (Auto) [place] % (Auto) Eos % (Auto) Baso % (Auto) Absolute Neuts (auto) Absolute Lymphs (auto) Nucleated RBC % PT INR APTT Sodium Potassium Chloride Carbon Dioxide Anion Gap BUN Creatinine Estim Creat Clear Calc Est GFR (MDRD) Af Amer Est GFR (MDRD) Non-Af BUN/Creatinine Ratio Glucose Calcium Total Bilirubin AST ALT Alkaline Phosphatase Total Protein Albumin Globulin Albumin/Globulin Ratio Urine Color Dk Yello Urine Clarity Sl Cloudy Urine pH 6.0 Ur Specific [place] 1.020 Urine Protein 30 H Urine Glucose (UA) Normal Urine Ketones 5 H Urine Occult Blood 250 H Urine Nitrite Negative Urine Bilirubin Negative Urine Urobilinogen Normal Ur Leukocyte Esterase Negative Urine RBC 50-100 SEEN Urine WBC 0-5 SEEN Ur Squamous Epith Cells 0 SEEN Urine Bacteria 1+ Hyaline Casts 5-10 SEEN Urine Mucus 0 SEEN Radiography Diagnostic Testing: Clinical Impression(s) from Imaging Studies Abdomen CT 05/12/22 13:34 IMPRESSION: 3.9 mm calculus at the left ureterovesical junction causing mild degree of left hydronephrosis and hydroureter. The remainder of the examination is unchanged. Electronically Signed: Adrien Call MD at 15:44 EDT , Discharge Plan Triage Chief Complaint: Back ED Provider: Markie Castro Dx/Rx/DC Orders Clinical Impression: Calculus of distal left ureter, Diabetes mellitus Instructions: ED Kidney Stone w/ Colic Prescriptions: New hydrocodone-acetaminophen [hydrocodone-acetaminophen] 1 TABLET tablet 1 tab PO Q6H PRN PRN (Reason: Pain) 3 Days Qty: 12 0RF No Action loperamide 2 mg capsule 2 mg PO .every other day Label Comments: 1 capsule by mouth single dose Dupixent Pen 300 mg/2 mL pen injector 300 mg SC Q2W mecobalamin (vitamin B12) 10,000 mcg recon soln IM MONTHLY atorvastatin 20 mg tablet 20 mg PO DAILY sitagliptin 50 mg tablet 50 mg PO DAILY Qty: 90 3RF atorvastatin 10 MG tablet 20 mg PO DAILY Label Comments: TAKES AT HS ON MONDAY losartan 25 MG tablet 25 mg PO QHS Label Comments: blood pressure acyclovir 200 MG capsule 400 mg PO BID duloxetine 60 MG capsule 60 mg PO BID Label Comments: enhance mood cholecalciferol (vitamin D3) 25 mcg (1,000 unit) capsule 2,000 unit PO DAILY Label Comments: vitamin,supplement ascorbate calcium (vitamin C) 500 mg tablet 2,000 mg PO DAILY nortriptyline 10 MG capsule 20 mg PO QHS apixaban 5 MG tablet 5 mg PO BID oxycodone 5 mg tablet 5 mg PO Q6H PRN (Reason: pain) 3 Days Qty: 12 0RF (DME) OneTouch Verio test strips Strip See Rx Instructions .ROUTE .MEDSUPPLY Qty: 100 6RF Rx Instructions: 3x/day Primary Care Provider: Monserrat Wilson Referrals: Monserrat Wilson MD [Primary Care Provider] - 3-5 Days nAeesh Prado MD [Med Staff - Active Staff] - 3-5 Days Disposition Disposition: Home, Self Care
--- NOTE | 2022-05-12 13:34 | CT_ITS ---
STUDY: CT ABDOMEN AND PELVIS WITHOUT CONTRAST REASON FOR EXAM: Male, 81 years old. Abdominal pain -- IV PO Contrast. Recent fall. Back spasms. RADIATION DOSAGE (If Supplied By Facility): CTDIvol = ( 8.05 ) mGy, DLP = ( 486.58 ) mGycm TECHNIQUE: Transaxial images were obtained from the dome of the diaphragm to the symphysis pubis without oral contrast, and without intravenous contrast. Sagittal and coronal images were reconstructed. Individualized dose optimization techniques were used for this CT. COMPARISON: None. FINDINGS: Mild increased markings at the lung bases. Coronary artery calcification. There is calcification of the mitral valve annulus. Normal liver. Mildly distended gallbladder. Normal spleen. Normal pancreas. Normal bilateral adrenal glands. Mild degree of bilateral perinephric stranding. Mild degree of left hydronephrosis and left hydroureter due to a 3.9 mm calculus at the left ureterovesical junction. Normal visualized stomach. Normal small intestine. Normal colon. The appendix is visualized and appears normal. There is diffuse atherosclerotic calcification of the abdominal aorta, without a demonstrated aneurysm. Normal inferior vena cava. Normal retroperitoneum. Normal urinary bladder. Small right hydrocele. Normal abdominal wall. There are diffuse degenerative changes of the visualized lumbar spine. CT/Abdomen/Pel W ORAL Cont Only IMPRESSION: 3.9 mm calculus at the left ureterovesical junction causing mild degree of left hydronephrosis and hydroureter. The remainder of the examination is unchanged. Electronically Signed: Adrien Call MD at 15:44 EDT ,
[2022-05-12] MEDS: Morphine 4 MG/ML Syringe IV (14:05)
[2022-05-12] MEDS: Ondansetron 4 MG/2 ML Vial IV (14:05)
[2022-05-12 14:14] LABS: Absolute Lymphocyte Count 1.26 X10^3/uL (0.83-4.51); Absolute Neutrophil Count 12.5 X10^3/uL (2.0-7.7); Basophil# 0.04 X10^3/uL; Basophil% 0.3 % (0-1); Eosinophil# 0.01 X10^3/uL; Eosinophils% 0.1 % (0-5); Hematocrit 47.9 % (40-54); Hemoglobin 16.1 g/dL (13.0-16.5); Lymphocyte # 1.26 X10^3/ul (0.83-4.51); Lymphocyte % 8.2 % (19-41); Mean Corp Hgb Conc 33.6 g/dL (32-36); Mean Corpuscular Hgb 33.1 pg (27.0-32.0); Mean Corpuscular Volume 98.6 fL (80-94); Mean Platelet Vol. 10.1 fl (6.2-12.0); Monocyte# 1.41 X10^3/uL; Monocyte% 9.2 % (0-10); NRBC Flagged by Analyzer 0 % (0-5); Neutrophil # 12.51 X10^3/uL (2.7-7.7); Neutrophil % 81.5 % (47-70); Platelet Count 252 K/mm3 (150-450); RBC Distribution Width SD 45.6 fl (35.1-43.9); Red Blood Count 4.86 M/mm3 (4.6-6.2); White Blood Count 15.3 K/mm3 (4.4-11.0)
[2022-05-12 14:24] LABS: International Normalized Ratio 1.1; Prothrombin Time (Protime)PT. 13.7 SECONDS (11.7-14.9)
[2022-05-12 14:25] LABS: Partial Thromboplast Time 29.9 Seconds (24.1-36.2)
[2022-05-12 14:31] VITALS: RESP 18
[2022-05-12 14:38] LABS: ALB/GLOB Ratio 0.9 RATIO (0.9-2.4); AST(SGOT) 13 U/L (15-37); Alanine Aminotransfer ALT/SGPT 14 U/L (16-61); Albumin, Serum 3.6 g/dL (3.2-5.0); Alkaline Phosphatase 71 U/L (45-117); Anion Gap 7 (5-15); BUN 27 mg/dL (7-18); BUN/Creat Ratio 10.4 RATIO (10-20); Calcium,Total 8.9 mg/dL (8.5-10.1); Chloride 102 mmol/L (98-107); EST Glomerular Filtration Rate 25 mL/min (>60); Est Glom Filt Rate - Afr Amer 31 mL/min (>60); Estimated Creatinine Clearance 21.92 ml/min; Glucose 141 mg/dL (74-106); Potassium 4.5 mmol/L (3.5-5.1); Protein, Total 7.6 g/dL (6.4-8.2); Sodium Level 138 mmol/L (136-145)
[2022-05-12 16:00] VITALS: BP 165/93; PULSE 110; RESP 22; O2SAT 97
--- NOTE | 2022-05-12 16:33 | ED.RN ---
PT HAD SYNCOPAL EPISODE WHEN ATTEMPTING TO MOVE UP IN BED. PT UNRESPONSIVE FOR 10 SECONDS AND CALLED PT NAME AND PT STATES THAT HE DID NOT REALIZE HE PASSED OUT. PT STATES THAT THIS HAS BEEN HAPPENING- 6 TIMES IN THE LAST MONTH OR SO. STATES PT HAS BEEN FALLING AT HOME WHEN THIS HAPPENS. DR. MUNSON MADE AWARE OF EPISODE, NO NEW ORDERS AT THIS TIME.
[2022-05-12 16:41] LABS: Mucous, Urine 0 SEEN /hpf (<or=2+); Squamous Epithelial Cells - UA 0 SEEN /hpf (0-5)
[2022-05-12 16:45] LABS: Glucose, Dipstick Normal (Normal); Ketone-Dipstick 5 mg/dl (Negative); Leukocyte Esterase-Dipstick Negative /ul (Negative); Nitrite-Dipstick Negative (Negative); Occult Blood-Urine 250 /ul (Negative); Protein-Dipstick 30 mg/dl (Negative); Urine Bilirubin Dipstick Negative (Negative); Urine Urobilinogen Normal (Normal)
[2022-05-12] MEDS: 0.9% Normal Saline 1,000 ML 1000 ML IV (17:05)
[2022-05-12 17:10] LABS: Color, Urine Dk Yello (Yellow); Urine Clarity Sl Cloudy (Clear)
[2022-05-12 17:11] LABS: Red Blood Cells-Urine 50-100 SEEN /hpf (0-5); White Blood Cells 0-5 SEEN /hpf (0-5)
[2022-05-12 17:12] LABS: Bacteria 1+ /hpf (None Seen); Hyaline Cast 5-10 SEEN /lpf (0-5)
[2022-05-12] MEDS: HYDROmorphone 1 MG/ML Syringe 0.5 MG IV (17:42)
[2022-05-12 19:06] VITALS: RESP 18
== END 2022-05-12 19:07 | disposition home or self-care (01) ==
PROVIDERS: Emergency Provider Emergency Medicine; PCP Family Medicine; Visit Provider Emergency Medicine
DX: N20.1 Calculus of ureter (principal); E11.22 Type 2 diabetes mellitus with diabetic chronic kidney disease; N18.30 Chronic kidney disease, stage 3 unspecified; Z87.891 Personal history of nicotine dependence
CPT/HCPCS: 74176; 80053; 81001; 85025; 85610; 85730; 96361; 96374; 96375; 99283; J2405

== ENCOUNTER → 2022-05-16 | Outpatient (CLI) | payer MEDICARE, SELFPAY | END | disposition home or self-care (01) | LOC: PSN 11:34 | PROVIDERS: PCP Family Medicine; Visit Provider Family Medicine | DX: R55 Syncope and collapse (principal) | CPT/HCPCS: 93225; 93226 ==

== ENCOUNTER → 2022-05-19 | Outpatient (CLI) | payer MEDICARE, SELFPAY ==
--- NOTE | 2022-05-19 12:05 | RAD_ITS ---
EXAM: XR ABDOMEN, 1 VIEW CLINICAL INDICATION: CALCULUS OF URETER TECHNIQUE: Frontal supine view of the abdomen/pelvis. This report was created using Verical report generation technology. COMPARISON: None. FINDINGS: LOWER THORAX: No acute pathology. GASTROINTESTINAL TRACT: Nonspecific dilation of the small bowel is likely suggesting ileus or obstruction. CT can better evaluate. ORGANS: Unremarkable as visualized. No organomegaly. No abnormal calcifications. BONES/JOINTS: Degenerative findings in the lumbar spine. SOFT TISSUES: No acute pathology. RAD/Abdomen Single View IMPRESSION: Nonspecific dilation of the small bowel is likely suggesting ileus or obstruction. CT can better evaluate. Electronically Signed: Abdirahman Loya MD at 19:08 EDT ,
== END | disposition home or self-care (01) ==
LOC: RAD 11:56
PROVIDERS: PCP Family Medicine; Referring Provider Urology; Visit Provider Urology
DX: N20.1 Calculus of ureter (principal)
CPT/HCPCS: 74018; 87635; U0003; U0005

== ENCOUNTER 2022-06-16 11:48 | Day surgery (SDC) | payer MEDICARE, SELFPAY ==
--- NOTE | 2022-06-15 15:06 | RAD_ITS ---
STUDY: X-RAY CHEST REASON FOR EXAM: Male, 81 years old. 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 Lungs are clear. Heart size normal. Pulmonary arteries normal. Atherosclerotic vascular calcification of aortic arch and descending aorta. Degenerative changes throughout the thoracic spine. Mild apical pleural thickening stable. RAD/Chest PA and Lateral IMPRESSION: Stable findings. Right diaphragmatic pacemaker. Degenerative changes thoracic spine. Mild biapical pleural thickening. Electronically Signed: Bala Berry MD, TSERING at 17:52 EDT ,
[2022-06-15 15:16] LABS: Absolute Lymphocyte Count 2.02 X10^3/uL (0.83-4.51); Absolute Neutrophil Count 5.8 X10^3/uL (2.0-7.7); Basophil# 0.06 X10^3/uL; Basophil% 0.7 % (0-1); Eosinophil# 0.16 X10^3/uL; Eosinophils% 1.8 % (0-5); Hematocrit 41.9 % (40-54); Hemoglobin 13.7 g/dL (13.0-16.5); Lymphocyte # 2.02 X10^3/ul (0.83-4.51); Lymphocyte % 23.4 % (19-41); Mean Corp Hgb Conc 32.7 g/dL (32-36); Mean Corpuscular Hgb 32.3 pg (27.0-32.0); Mean Corpuscular Volume 98.8 fL (80-94); Mean Platelet Vol. 9.8 fl (6.2-12.0); Monocyte# 0.57 X10^3/uL; Monocyte% 6.6 % (0-10); NRBC Flagged by Analyzer 0 % (0-5); Neutrophil # 5.79 X10^3/uL (2.7-7.7); Neutrophil % 66.9 % (47-70); Platelet Count 293 K/mm3 (150-450); RBC Distribution Width CV 12.8 % (11.6-14.6); Red Blood Count 4.24 M/mm3 (4.6-6.2); White Blood Count 8.7 K/mm3 (4.4-11.0)
[2022-06-15 15:47] LABS: Hemoglobin A1c 5.8 % (3.8-5.6)
[2022-06-15 15:55] LABS: Anion Gap 5 (5-15); BUN 21 mg/dL (7-18); BUN/Creat Ratio 14.3 RATIO (10-20); Chloride 106 mmol/L (98-107); Creatinine, Serum 1.47 mg/dL (0.70-1.30); EST Glomerular Filtration Rate 49 mL/min (>60); Est Glom Filt Rate - Afr Amer 59 mL/min (>60); Glucose 145 mg/dL (74-106); Potassium 4.1 mmol/L (3.5-5.1); Sodium Level 140 mmol/L (136-145)
[2022-06-16 12:26] VITALS: BP 134/80; PULSE 73; RESP 16; TEMP 36.3; O2SAT 99; BMI 26.0
[2022-06-16] MEDS: Lactated Ringers 1,000 ML 15 ML IV (12:50)
[2022-06-16 13:10] LABS: Bedside Glucose 81 mg/dL (74-106)
[2022-06-16] MEDS: Cefazolin 2 GM in 0.9% Normal Saline 100 ML IV (14:14)
--- NOTE | 2022-06-16 14:25 | RAD_ITS ---
STUDY: INTRAOPERATIVE FLUOROSCOPY TECHNIQUE: The examination was performed with referring physician in attendance. Under fluoroscopic observation, fluoroscopic images were obtained. Radiologist was not present for the study. Radiologist did not perform the procedure. This dictation is for documentation of the radiation dosage only. There is no interpretation of the images. TOTAL NUMBER OF IMAGES: 1 COMPARISON: None RADIATION DOSE: 0.15 mGy FLUOROSCOPY TIME: 11.6 seconds REASON FOR EXAM: FX Male, 81 years old. FINDINGS: There is a metal sideplate transfixing the distal fibula. There are cortical screws holding the plate in place. RAD/Ankle min 3 Views IMPRESSION: Fluoroscopic assistance images were obtained. Dictation for documentation purposes only. Electronically Signed: Abdirahman Loya MD at 17:02 EDT ,
--- NOTE | 2022-06-16 15:24 | DCINST_ITS ---
Discharge Instructions Follow Up Care Test Results: Test results from this visit will be discussed in further detail at your follow- up appointment, if applicable. Discharge Plan Admission Primary Reason for Your Visit: Right ankle fixation Attending Provider: Yunior Lisa Primary Care Provider: Monserrat Wilson Instructions Additional Instructions / Restrictions: See preprinted instructions from your surgeon's office. Discharge Orders/Prescriptions Prescriptions: No Action mecobalamin (vitamin B12) 10,000 mcg recon soln 10,000 mcg IM MONTHLY atorvastatin 20 mg tablet 20 mg PO DAILY sitagliptin 50 mg tablet 50 mg PO DAILY Qty: 90 3RF losartan 25 MG tablet 25 mg PO QHS Label Comments: blood pressure duloxetine 60 MG capsule 60 mg PO BID Label Comments: enhance mood cholecalciferol (vitamin D3) 25 mcg (1,000 unit) capsule 2,000 unit PO DAILY Label Comments: vitamin,supplement ascorbate calcium (vitamin C) 500 mg tablet 2,000 mg PO DAILY nortriptyline 10 MG capsule 20 mg PO QHS ropinirole 1 mg Tablet 1 mg PO QHS Rx Instructions: administer 1-3 hours before bedtime omeprazole 20 mg Capsule,Delayed Release(Dr/Ec) 20 mg PO DAILY aspirin [Aspirin Child] 81 mg Tablet,Chewable 81 mg PO DAILY (DME) OneTouch Verio test strips Strip See Rx Instructions .ROUTE .MEDSUPPLY Qty: 100 6RF Rx Instructions: 3x/day Referrals / Follow Up: Monserrat Wilson MD [Primary Care Provider] - Yunior Lisa DO [Med Staff - Active Staff] - 07/01/22 Disposition Disposition (needs filled in before D/C Order can be placed): Home, Self Care
--- NOTE | 2022-06-16 15:25 | OP.PCM_ITS ---
Report of Operation Date of Procedure: 06/16/22 Description of Surgical Findings:: Preoperative diagnosis: Bimalleolar equivalent right ankle fracture Postoperative diagnosis: Bimalleolar equivalent right ankle fracture Procedure: 1. Open reduction internal fixation right lateral malleolus 2. Stress examination under anesthesia right ankle Surgeon: Yunior Lisa DO Anesthesia: General endotracheal with popliteal block Anesthesiologist: Dr. Lopez Complications: None Drains: None Estimated blood loss: 25 cc Urinary output: None IV fluids: 800 cc crystalloid Specimens: None Surgical implants: Arthrex 6-hole right lateral distal fibular locking plate Surgical indications: This is a 81-year-old male who sustained a lateral malleolus fracture approximately 2 weeks ago. This was due to a mechanical fall. X-rays revealed the lateral malleolus. Stress examination revealed widening of the ankle mortise. I recommended operative intervention in the form of ORIF lateral malleolus with possible syndesmotic fixation.. The risks include but are not limited to bleeding, infection, loss of life or limb, risk of anesthesia, risk of nerve block, persistent pain, nonunion, malunion, posttraumatic arthritis, instability, need for additional surgery, failure of orthopedic hardware, persis tent limp or need for assistive device. Patient expressed understanding of these risks and wished to proceed. Description of procedure: Patient was seen in preoperative holding area. They were identified by name, medical record number, date of . The operative extremity was marked with a surgical marker. We confirmed informed consent with the patient and all questions were answered to her satisfaction. In the preoperative holding area, a popliteal block was administered by the anesthesia staff. At time of the procedure, patient was brought to the operative suite and positioned supine on a standard operating table. All bony prominences were well-padded. General anesthesia was administered. After adequate anesthesia, a well-padded pneumatic tourniquet was applied to the right upper thigh. A large bump was placed in the patient's right hip. The right lower extremity was elevated on bath blankets for fluoroscopic imaging and access to the limb during surgery. We secured this with tape as well as the nonoperative extremity. We then performed a timeout with all parties in attendance and agree with the side, site, operation to be performed. No concerns were voiced and elected to proceed. 2 g Ancef Ancef was administered prior to incision by the anesthesia staff. We then prepped and draped the operative extremity using a ChloraPrep. While stabilizing the ankle, the operative extremity was exsanguinated with an Esmarch bandage. Tourniquet was inflated to 250 mmHg. Incision was planned over the lateral malleolus and distal fibular shaft centered over the level of the fracture. Skin was sharply incised with a 15 blade scalpel. Superficial bleeders were cauterized with Bovie cautery. We then bluntly dissected to the level of the fascia. Fascia was opened with Bovie cautery. We examined closely for the superficial peroneal nerve which was not encountered throughout surgery. We bluntly dissected down to the level of the periosteum. Hohmann retractors were placed after fracture was encountered as well as the fibula. Periosteum was elevated at the level of the fracture approximately 2 to 3 mm. A [id number] reduction tenaculum was used to reapproximate the fracture site with excellent anatomic reduction. We then prepared for a lag screw for fixation. We first planned our lag screw perpendicular to the fracture site posterior to anterior. We overdrilled the near cortex with a 3.5 mm drill bit. We then withdrew the drill bit and drilled the far cortex with a 2.7 mm drill bit. We then measured and placed an appropriately sized lag by technique 3.5 mm cortical screw with excellent compression across the fracture site. Reduction tenaculum was removed with excellent security at the fracture site. We then selected our plate on the back table. We ensured that we had 3 screws above and below the fracture site. A 6-hole lateral distal fibular locking plate plate was selected for after confirming on fluoroscopy. This was held in place provisionally with BB tacks. I compressed the plate to bone with a cortical screw proximally and a cancellous screw distally at the level of the syndesmosis. Appropriate positioning was confirmed on orthogonal fluoroscopy. 2 additional cortical screws were placed proximal to the joint. Locking screws were placed in the distal cluster of the plate. Final fluoroscopic images were obtained. An external rotation stress test and cotton test was administered and demonstrated stable ankle mortise and no significant tib-fib widening. Wound was then zuly irrigated with normal saline solution. Tourniquet was deflated. Hemostasis was excellent. We closed the dermis in interrupted fashion with buried 2-0 Vicryl suture. Skin was finally reapproximated with simple 3-0 nylon suture. A sterile compression dressing was applied as well as a 3 sided fiberglass AO splint in maximal dorsiflexion. Patient tolerated procedure well without complication. He was safely extubated in the operative suite after anesthesia was reversed. He was transferred to his gurney and subsequently to PACU in stable condition. Post Operative Plan: Weightbearing: Nonweightbearing operative extremity Antibiotics: 2 g Ancef x 1 dose preoperatively DVT Prophylaxis: 81 mg aspirin twice daily starting postoperative day #1 Chadwick: None Dressing: Maintain splint, keep it clean dry and intact until follow-up X-Rays: 2 weeks postop in the office Pain Medication: Percocet Rx upon discharge Follow-up: 2 weeks post-operatively with me in the office
[2022-06-16 15:45] VITALS: BP 134/80; BP 140/77; PULSE 71; RESP 16; TEMP 36.3; O2SAT 96
[2022-06-16 16:00] VITALS: BP 124/66; BP 134/80; PULSE 74; RESP 16; O2SAT 96
[2022-06-16 16:15] VITALS: BP 127/70; BP 134/80; PULSE 75; RESP 16; TEMP 36.7; O2SAT 100
[2022-06-16 16:30] VITALS: BP 122/70; BP 134/80; PULSE 80; RESP 16; O2SAT 98
== END 2022-06-16 16:56 | disposition home or self-care (01) ==
LOC: SDC 11:48 → AC 11:51
PROVIDERS: PCP Family Medicine; Visit Provider Student in an Organized Health Care Education/Training Program
PROC: (CPT 27814; principal; 2022-06-16 13:55)
DX: S82.841A Displaced bimalleolar fracture of right lower leg, initial encounter for closed fracture (principal); E11.22 Type 2 diabetes mellitus with diabetic chronic kidney disease; N18.30 Chronic kidney disease, stage 3 unspecified; W18.40XA Slipping, tripping and stumbling without falling, unspecified, initial encounter; Y93.89 Activity, other specified; Y92.009 Unspecified place in unspecified non-institutional (private) residence as the place of occurrence of the external cause; Z79.899 Other long term (current) drug therapy; M79.7 Fibromyalgia; I12.9 Hypertensive chronic kidney disease with stage 1 through stage 4 chronic kidney disease, or unspecified chronic kidney disease; M19.90 Unspecified osteoarthritis, unspecified site; I73.00 Raynaud's syndrome without gangrene; G47.30 Sleep apnea, unspecified; L11.1 Transient acantholytic dermatosis [Grover]; Z86.718 Personal history of other venous thrombosis and embolism; Z79.84 Long term (current) use of oral hypoglycemic drugs; Z87.891 Personal history of nicotine dependence; K21.9 Gastro-esophageal reflux disease without esophagitis; E78.5 Hyperlipidemia, unspecified
CPT/HCPCS: 27814; 01480; 64445; 36415; 71046; 73610; 76000; 80048; 82962; 83036; 85025; C1713; J7120; J2405

== ENCOUNTER → 2022-08-08 | Outpatient (CLI) | payer MEDICARE, SELFPAY ==
[2022-08-08 12:30] LABS: Hematocrit 40.4 % (40-54); Hemoglobin 13.2 g/dL (13.0-16.5); Mean Corp Hgb Conc 32.7 g/dL (32-36); Mean Corpuscular Hgb 32.4 pg (27.0-32.0); Mean Platelet Vol. 10.6 fl (6.2-12.0); Platelet Count 260 K/mm3 (150-450); RBC Distribution Width CV 13.8 % (11.6-14.6); RBC Distribution Width SD 50.6 fl (35.1-43.9); Red Blood Count 4.08 M/mm3 (4.6-6.2); White Blood Count 6.7 K/mm3 (4.4-11.0)
[2022-08-08 13:02] LABS: PTHIN 82.2 pg/mL (18.4-80.1)
[2022-08-08 13:06] LABS: Vitamin D,25 Hydroxy 48.6 ng/mL
[2022-08-08 13:36] LABS: Albumin, Serum 3.6 g/dL (3.2-5.0); BUN 26 mg/dL (7-18); BUN/Creat Ratio 14.9 RATIO (10-20); Calcium,Total 8.9 mg/dL (8.5-10.1); Chloride 104 mmol/L (98-107); Creatinine, Serum 1.75 mg/dL (0.70-1.30); EST Glomerular Filtration Rate 40 mL/min (>60); Est Glom Filt Rate - Afr Amer 48 mL/min (>60); Glucose 99 mg/dL (74-106); Phosphorus 2.7 mg/dL (2.5-4.9); Potassium 4.5 mmol/L (3.5-5.1); Protein:Creat Ratio 167 mg/g CRE (0-200); Sodium Level 138 mmol/L (136-145)
== END | disposition home or self-care (01) ==
PROVIDERS: PCP Family Medicine; Referring Provider Internal Medicine Nephrology; Visit Provider Internal Medicine Nephrology
DX: N18.31 Chronic kidney disease, stage 3a (principal); E55.9 Vitamin D deficiency, unspecified; Z13.0 Encounter for screening for diseases of the blood and blood-forming organs and certain disorders involving the immune mechanism
CPT/HCPCS: 36415; 80069; 82306; 82570; 83970; 84156; 85027

== ENCOUNTER → 2022-08-16 | Outpatient (CLI) | payer MEDICARE, SELFPAY ==
--- NOTE | 2022-08-16 07:17 | ECHOD_ITS ---
Reason For Study: SYNCOPE Procedure This was a 2D Doppler, Color Flow transthoracic echocardiogram. The exam was of adequate technical quality. Exam performed in department. Left Ventricle Normal LV size. Left ventricular systolic function is normal. The estimated ejection fraction is 60 %. Diastolic function is indeterminate. No regional wall motion abnormalities noted. Right Ventricle Normal RV size. Normal systolic function. Atria The left atrium is mildly enlarged. Normal right atrium. No doppler evidence for ASD. Mitral Valve There is moderate to severe mitral annular calcification. Extension of the mitral annular calcification onto the base of the posterior mitral valve leaflet. Trivial mitral valve insufficiency. Tricuspid Valve Normal tricuspid valve. Trivial tricuspid valve insufficiency. Right ventricular systolic pressure estimated to be 27 mmHg. Aortic Valve Trisinus/trileaflet aortic valve. Mild diffuse aortic valve thickening. Moderate focal aortic valve calcification. Pulmonic Valve The pulmonic valve is not well visualized. Great Vessels Normal sized aortic root. Pericardium/Pleural No pericardial effusion. Epicardial fat. MMode/2D Measurements & Calculations LVIDd: 4.7 cm IVSd: 1.0 cm Ao root diam: 3.2 cm LVIDs: 3.9 cm LVPWd: 1.2 cm FS: 17.3 % LAV(MOD-sp4): 81.7 ml LVAd ap4: 26.3 cm2 SV(MOD-sp4): 39.4 ml LVLd ap4: 7.3 cm EDV(MOD-sp4): 79.7 ml EDV(sp4-el): 80.3 ml LVAs ap4: 18.4 cm2 LVLs ap4: 7.2 cm ESV(MOD-sp4): 40.3 ml ESV(sp4-el): 39.5 ml EF(MOD-sp4): 49.5 % EF(sp4-el): 50.8 % SV(sp4-el): 40.8 ml LA A4 area: 25.0 cm2 LA dimension(2D): 4.3 cm RA A4 area: 10.4 cm2 Time Measurements MV dec time: 0.27 sec Doppler Measurements & Calculations MV E max clarence: 64.2 cm/sec MV V2 max: 86.4 cm/sec MV dec slope: 236.0 cm/sec2 MV A max clarence: 80.9 cm/sec MV max P.0 mmHg MV E/A: 0.79 MV V2 mean: 51.8 cm/sec MV mean P.2 mmHg MV V2 VTI: 26.7 cm Ao V2 max: 124.7 cm/sec LV V1 max: 91.3 cm/sec PA V2 max: 79.7 cm/sec Ao max P.2 mmHg LV V1 max P.3 mmHg PA V2 mean: 58.3 cm/sec Ao V2 mean: 91.9 cm/sec LV V1 mean P.7 mmHg Ao mean P.8 mmHg LV V1 mean: 60.7 cm/sec Ao V2 VTI: 27.5 cm LV V1 VTI: 20.0 cm TR max clarence: 244.0 cm/sec TR max P.8 mmHg ECHO/Echo Complete Interpretation Summary Left ventricular systolic function is normal. The estimated ejection fraction is 60 %. The left atrium is mildly enlarged. There is moderate to severe mitral annular calcification. Extension of the mitral annular calcification onto the base of the posterior mi tral valve leaflet. Trivial mitral valve insufficiency. Trivial tricuspid valve insufficiency. Mild diffuse aortic valve thickening. Moderate focal aortic valve calcification. Epicardial fat. Right ventricular systolic pressure estimated to be 27 mmHg. Diastolic function is indeterminate. Ordering Physician: Wilner Poe Referring Physician: Wilner Poe Performed By: Amisha Simmons RCS
--- NOTE | 2022-08-16 12:18 | STRESSREP_ITS ---
Stress Test Report Date: 08-16-2022 Procedure: Pharmacologic stress nuclear imaging study Indications: Syncope Consent: Per the patient Procedure: The patient underwent pharmacologic (Regadenoson 0.4mg ) evaluation with a peak heart rate of 85 beats per minute (60%predicted maximal heart rate) and a resting blood pressure of 142/76 mmHg and a peak blood pressure of 142/70 mmHg. The baseline ECG demonstrated normal sinus rhythm. The peak pharmacologic ECG demonstrated no obvious ECG changes. There was a rare PVC in recovery. There was no complaint of chest discomfort during pharmacologic infusion or recovery. The examination was discontinued secondary to completion of protocol. Impression: 1. Pharmacologic (Regadenoson) evaluation 2. Peak pharmacologic ECG with no obvious ECG changes. 3. There was a rare PVC in recovery. 4. Nuclear images pending Myocardial perfusion imaging study: Technique: The patient was injected with 11.0 millicuries of technetium 99m Cardiolite and subsequently rest SPECT Cardiolite nuclear imaging was obtained in the horizontal long, vertical long, and short axis views. The patient underwent pharmacologic (Regadenoson) evaluation with a peak heart rate of 85 beats per minute (60% percent predicted maximal heart rate) and a resting blood pressure of 142/76 mmHg and a peak blood pressure of 142/76 mmHg. The patient was injected with 34.0 millicuries of technetium 99m Cardiolite and subsequently stress SPECT Cardiolite nuclear imaging was obtained in the horizontal long, vertical long, and short axis views. A gated Cardiolite study at peak stress was obtained. Interpretation: Rest and stress SPECT Cardiolite nuclear imaging status post realignment, normalization, and attenuation correction demonstrate relative uniform tracer uptake and myocardial perfusion appearing within normal limits. There is end systolic thickening and brightening. The gated Cardiolite study demonstrates myocardial thickening and inward wall motion. The reported LVEF is 71%. Impression: 1. Rest and stress SPECT Cardiolite nuclear imaging demonstrate relative uniform tracer uptake and myocardial perfusion appearing within normal limits. 2. The gated Cardiolite study reports an LVEF of 71%. This note was generated with Enlighted software. It may contain incorrect words, spelling, and punctuation that were not noted in checking the note before signing.
== END | disposition home or self-care (01) ==
PROVIDERS: PCP Family Medicine; Referring Provider Internal Medicine Cardiovascular Disease; Visit Provider Internal Medicine Cardiovascular Disease
DX: R55 Syncope and collapse (principal); I20.8 Other forms of angina pectoris; E78.2 Mixed hyperlipidemia; I10 Essential (primary) hypertension
CPT/HCPCS: 78452; 93017; 93306; A9500; A4216; J2785

== ENCOUNTER → 2022-08-23 | Outpatient (CLI) | payer MEDICARE, SELFPAY ==
--- NOTE | 2022-08-23 09:51 | CDU_ITS ---
Reason For Study: SYNCOPE Rt. Velocities/BP Lt. Velocities/BP Prox CCA 60.1/12.8 cm/sec. Prox CCA 77.6/14.9 cm/sec. Mid CCA 72.4/18.5 cm/sec. Mid CCA 67.7/17.1 cm/sec. Dist CCA 60.1/19.5 cm/sec. Dist CCA 60.0/14.9 cm/sec. Prox ICA 50.6/19.5 cm/sec. Prox ICA 63.4/16.7 cm/sec. Mid ICA 93.0/31.4 cm/sec. Mid ICA 84.2/29.0 cm/sec. Dist ICA 88.6/30.3 cm/sec. Dist ICA 95.3/27.8 cm/sec. Rt. ICA/CCA = 1.3. Lt. ICA/CCA = 1.4. Prox ECA 78.0/10.0 cm/sec. Prox ECA 99.0/9.3 cm/sec. Rt. Vert. 38.9/9.0 cm/sec. Lt. Vert. 36.7/11.1 cm/sec. Right Extracranial There is intimal thickening but no significant atherosclerotic plaque noted in the right common carotid artery. There is heterogeneous, irregular atherosclerotic plaque noted in the right internal carotid artery. There is heterogeneous, irregular atherosclerotic plaque noted in the right external carotid artery. Antegrade flow is noted in the right vertebral artery. Left Extracranial There is intimal thickening but no significant atherosclerotic plaque noted in the left common carotid artery. There is heterogeneous, irregular atherosclerotic plaque noted in the left internal carotid artery. There is heterogeneous, irregular atherosclerotic plaque noted in the left external carotid artery. Antegrade flow is noted in the left vertebral artery. Procedure Carotid Duplex 61712. This is a Carotid Duplex examination using B-mode, color flow and specral Doppler. The exam was diagnostic. Exam performed in department. VL/Carotid Duplex Ultrasound Interpretation Summary Mild (<50%) stenosis right extracranial internal carotid. Mild (<50%) stenosis left extracranial internal carotid. May be limited due to calcific shadowing Patent and antegrade vertebrals bilaterally. Ordering Physician: Wilner Poe Referring Physician: Wilner Poe MD Performed By: Keon Sanderson RVT
== END | disposition home or self-care (01) ==
LOC: CVS 09:50
PROVIDERS: PCP Family Medicine; Referring Provider Internal Medicine Cardiovascular Disease; Visit Provider Internal Medicine Cardiovascular Disease
DX: R55 Syncope and collapse (principal); E78.2 Mixed hyperlipidemia; I10 Essential (primary) hypertension
CPT/HCPCS: 93880

== ENCOUNTER → 2022-10-28 | Outpatient (CLI) | payer MEDICARE, SELFPAY ==
[2022-10-28 17:44] LABS: Absolute Lymphocyte Count 1.74 X10^3/uL (0.83-4.51); Absolute Neutrophil Count 5.9 X10^3/uL (2.0-7.7); Basophil# 0.05 X10^3/uL; Basophil% 0.6 % (0-1); Eosinophils% 1.2 % (0-5); Hematocrit 41.4 % (40-54); Hemoglobin 13.5 g/dL (13.0-16.5); Lymphocyte # 1.74 X10^3/ul (0.83-4.51); Lymphocyte % 20.1 % (19-41); Mean Corp Hgb Conc 32.6 g/dL (32-36); Mean Corpuscular Hgb 32.8 pg (27.0-32.0); Mean Corpuscular Volume 100.7 fL (80-94); Mean Platelet Vol. 10.3 fl (6.2-12.0); Monocyte# 0.77 X10^3/uL; Monocyte% 8.9 % (0-10); NRBC Flagged by Analyzer 0 % (0-5); Neutrophil # 5.94 X10^3/uL (2.7-7.7); Neutrophil % 68.4 % (47-70); Platelet Count 280 K/mm3 (150-450); RBC Distribution Width CV 12.7 % (11.6-14.6); RBC Distribution Width SD 47.5 fl (35.1-43.9); Red Blood Count 4.11 M/mm3 (4.6-6.2); White Blood Count 8.7 K/mm3 (4.4-11.0)
[2022-10-28 18:09] LABS: ALB/GLOB Ratio 0.9 RATIO (0.9-2.4); AST(SGOT) 63 U/L (15-37); Alanine Aminotransfer ALT/SGPT 56 U/L (16-61); Albumin, Serum 3.2 g/dL (3.2-5.0); Alkaline Phosphatase 92 U/L (45-117); Anion Gap 7 (5-15); BUN 22 mg/dL (7-18); BUN/Creat Ratio 12.8 RATIO (10-20); Calcium,Total 8.4 mg/dL (8.5-10.1); Chloride 105 mmol/L (98-107); Creatinine, Serum 1.72 mg/dL (0.70-1.30); EST Glomerular Filtration Rate 41 mL/min (>60); Est Glom Filt Rate - Afr Amer 49 mL/min (>60); Globulin 3.4 g/dL (2.2-4.2); Glucose 89 mg/dL (74-106); Potassium 4.4 mmol/L (3.5-5.1); Protein, Total 6.6 g/dL (6.4-8.2); Sodium Level 140 mmol/L (136-145)
== END | disposition home or self-care (01) ==
LOC: BFHLAB 15:15
PROVIDERS: PCP Family Medicine; Visit Provider Family Medicine
DX: M79.7 Fibromyalgia (principal); E11.9 Type 2 diabetes mellitus without complications
CPT/HCPCS: 36415; 80053; 84443; 85025

== ENCOUNTER → 2022-12-09 | Outpatient (CLI) | payer MEDICARE, SELFPAY ==
--- NOTE | 2022-12-09 08:21 | ART_ITS ---
Reason For Study: Absent pedal pulses Procedure A bilateral lower extremity continuous wave Doppler with analog waveform analysis and ankle brachial indexes. Left Segmental Pressures Left brachial= 155mmHg. Left posterior tibial artery = 176mmHg. Left dorsalis pedis artery = 163mmHg. The left dorsalis pedis waveforms are triphasic. The left posterior tibial artery waveforms are triphasic. Right Segmental Pressures Right brachial= 150mmHg. Right posterior tibial artery = 174mmHg. Right dorsalis pedis artery = 162mmHg. The right dorsalis pedis waveforms are triphasic. The right posterior tibial artery waveforms are triphasic. Indices The right ankle brachial index by the dorsalis pedis is 1.05. The right ankle brachial index by the posterior tibial artery is 1.12. The left ankle brachial index by the dorsalis pedis is 1.05. The left ankle brachial index by the posterior tibial artery is 1.14. VL/Ankle Brachial Index Interpretation Summary Right ANTONELLA 1.12, normal. Doppler/PVR waveforms of the right leg normal at rest. Digit waveforms diminished, pedal/digit disease vs spasm. Left ANTONELLA 1.14, normal. Doppler/PVR waveforms of the left leg normal at rest. Di git waveforms diminished, pedal/digit disease vs spasm. Ordering Physician: Mat Mehta Referring Physician: Monserrat Wilson Performed By: Roxana Alvarado RVT
[2022-12-09 08:47] LABS: Vitamin B12 273 pg/mL (211-911)
[2022-12-09 08:57] LABS: Anion Gap 4 (5-15); BUN 29 mg/dL (7-18); BUN/Creat Ratio 19.9 RATIO (10-20); Calcium,Total 9.1 mg/dL (8.5-10.1); Chloride 107 mmol/L (98-107); Creatinine, Serum 1.46 mg/dL (0.70-1.30); EST Glomerular Filtration Rate 49 mL/min (>60); Est Glom Filt Rate - Afr Amer 60 mL/min (>60); Glucose 110 mg/dL (74-106); Potassium 4.5 mmol/L (3.5-5.1); Sodium Level 140 mmol/L (136-145)
--- NOTE | 2022-12-09 09:35 | TELEMED_ITS ---
[facility] has confirmed receipt of a request for visit. This document confirms receipt of the order initiating the consult. To find the results of the consultation, please view the patient's reports for the scanned Telemed Consult.
[2022-12-13 05:07] LABS: Free Kappa Light Chains 23.1 mg/L (3.3-19.4); Free Lambda Light Chains 11.3 mg/L (5.7-26.3)
[2022-12-13 14:33] LABS: Vitamin B1, Thiamine 132.1 nmol/L (66.5-200.0)
== END | disposition home or self-care (01) ==
LOC: PSN 08:07
PROVIDERS: PCP Family Medicine; Referring Provider Psychiatry & Neurology Neurology; Visit Provider Psychiatry & Neurology Neurology
DX: R55 Syncope and collapse (principal); G62.9 Polyneuropathy, unspecified; R09.89 Other specified symptoms and signs involving the circulatory and respiratory systems
CPT/HCPCS: 36415; 80048; 82607; 82746; 83883; 84425; 93922; 95819

== ENCOUNTER → 2022-12-27 | Outpatient (CLI) | payer MEDICARE, SELFPAY ==
[2022-12-27 09:21] LABS: Hematocrit 38.2 % (40-54); Hemoglobin 12.4 g/dL (13.0-16.5); Mean Corp Hgb Conc 32.5 g/dL (32-36); Mean Corpuscular Hgb 32.8 pg (27.0-32.0); Mean Corpuscular Volume 101.1 fL (80-94); Mean Platelet Vol. 9.5 fl (6.2-12.0); Platelet Count 258 K/mm3 (150-450); RBC Distribution Width SD 47.9 fl (35.1-43.9); Red Blood Count 3.78 M/mm3 (4.6-6.2)
--- NOTE | 2022-12-27 19:53 | TILTTABLE_ITS ---
Staff Staff: Regi Argueta and Naila Edwards Summary Protocol: 70 Degree Upright Tilt Pre Test Resting HR: 69 Pre Test Resting BP: 129/73 Minimum Test HR: 73 Maximum Test HR: 96 Minimum Test BP: 99/57 Maximum Test BP: 139/80 Reason for Test Termination: Reached Maximum Test Time Physician Tilt Table Report Patient's Physicians Primary Care Physician: Monserrat Wilson Thread Machine Operator: Wilner Poe Indications/Diagnosis: Syncope Procedure Comments: The patient was brought to the tilt table laboratory and laid supine on the tilt table. The patient was awake and alert and warm and dry. The baseline heart rate was 69 bpm with a baseline blood pressure 129/73 mmHg. The cardiac rhythm appeared to be normal sinus rhythm. The patient was placed in the 70 degree upright tilt table position for approximately 20 minutes. The patient remained alert and oriented and warm and dry. The minimal heart rate was 73 bpm with a minimal blood pressure of 116/72 mmHg and a maximal heart rate of 84 bpm with a maximal blood pressure 139/80 mmHg. The cardiac rhythm remained normal sinus rhythm. The patient complained of hands feeling cool. The patient did not lose consciousness. The patient was placed in the supine position. The patient was administered nitroglycerin sublingual 0.4 mg x 1. The patient returned to the 70 degree upright tilt table position for approximately 8 minutes. The patient remained alert and oriented and warm and dry. The minimal heart rate was 85 bpm with a minimal blood pressure 99/57 mmHg and a maximal heart rate of 96 bpm with a maximal blood pressure of 132/72 mmHg. The cardiac rhythm remained sinus rhythm with a rare PVC. The patient complained of feeling sleepy and hands cool. The patient did not lose consciousness. The patient returned to the supine position. The patient remained alert and oriented and warm and dry. The concluding heart rate was 101 bpm with a concluding blood pressure 144/68 mmHg. The patient was sitting up and stated feeling fine . The patient was subsequently released from the tilt table laboratory. Summary: 70 degree upright tilt table study pre and post nitroglycerin challenge considered negative for reproducible vasovagal/neurocardiogenic mediated syncope. This note was generated using a voice recognition system and there may be incorrect words, spelling or punctuation that were not noted when reviewing the office note prior to saving.
[2022-12-27 19:58] VITALS: BP 129/73; BP 139/80; BP 99/57
== END | disposition home or self-care (01) ==
LOC: CVS 09:05
PROVIDERS: PCP Family Medicine; Referring Provider Psychiatry & Neurology Neurology; Visit Provider Psychiatry & Neurology Neurology
DX: R94.39 Abnormal result of other cardiovascular function study (principal); I10 Essential (primary) hypertension; E78.5 Hyperlipidemia, unspecified; F17.200 Nicotine dependence, unspecified, uncomplicated
CPT/HCPCS: 36415; 85027; 93660; J7040; A4216

== ENCOUNTER → 2023-02-13 | Outpatient (CLI) | payer MEDICARE, SELFPAY ==
[2023-02-13 15:14] LABS: Hemoglobin 13.8 g/dL (13.0-16.5); Mean Corp Hgb Conc 32.1 g/dL (32-36); Mean Corpuscular Volume 102.9 fL (80-94); Mean Platelet Vol. 10.4 fl (6.2-12.0); Platelet Count 273 K/mm3 (150-450); RBC Distribution Width SD 49.2 fl (35.1-43.9); Red Blood Count 4.18 M/mm3 (4.6-6.2); White Blood Count 8.9 K/mm3 (4.4-11.0)
[2023-02-13 15:26] LABS: Albumin, Serum 3.5 g/dL (3.2-5.0); BUN 15 mg/dL (7-18); Calcium,Total 8.6 mg/dL (8.5-10.1); Chloride 106 mmol/L (98-107); EST Glomerular Filtration Rate 48 mL/min (>60); Est Glom Filt Rate - Afr Amer 58 mL/min (>60); Glucose 135 mg/dL (74-106); Phosphorus 2.4 mg/dL (2.5-4.9); Potassium 3.8 mmol/L (3.5-5.1); Sodium Level 139 mmol/L (136-145)
[2023-02-13 15:27] LABS: PTHIN 44.1 pg/mL (18.4-80.1)
[2023-02-13 15:30] LABS: Protein, Urine (Random) 7.2 mg/dL (<11.9); Protein:Creat Ratio 169 mg/g CRE (0-200); Vitamin D,25 Hydroxy 42.3 ng/mL
== END | disposition home or self-care (01) ==
PROVIDERS: PCP Family Medicine; Referring Provider Internal Medicine Nephrology; Visit Provider Internal Medicine Nephrology
DX: N18.31 Chronic kidney disease, stage 3a (principal); E55.9 Vitamin D deficiency, unspecified; Z13.0 Encounter for screening for diseases of the blood and blood-forming organs and certain disorders involving the immune mechanism
CPT/HCPCS: 36415; 80069; 82306; 82570; 83970; 84156; 85027

== ENCOUNTER → 2023-02-22 | Outpatient (CLI) | payer MEDICARE, SELFPAY ==
--- NOTE | 2023-02-22 14:25 | CT_ITS ---
STUDY: CT BRAIN WITHOUT CONTRAST REASON FOR EXAM: Male, 82 years old. Syncopal episodes. RADIATION DOSAGE (If Supplied By Facility): CTDIvol = ( 44.99 ) mGy, DLP = ( 846.73 ) mGycm TECHNIQUE: Transaxial CT imaging of the brain was performed without administration of intravenous contrast material. Individualized dose optimization techniques were used for this CT. COMPARISON: No relevant priors. FINDINGS: Normal soft tissue structures. Normal calvarium. There is mild cerebral atrophy with widening of the extra-axial spaces and ventricular dilatation. There are areas of decreased attenuation within the white matter tracts of the supratentorial brain, consistent with microvascular disease changes. Tiny lacuna is seen in the insular cortex of the left temporal lobe. Normal brainstem. Normal cerebellum. There is no intracranial hemorrhage. There are no findings of an acute ischemic infarction. Atherosclerotic calcification of the cavernous portions of the internal carotid arteries bilaterally. Mild degree of mucosal thickening along the posterior aspect of the right ethmoid sinus. CT/Brain/Head without Contrast IMPRESSION: Chronic involutional changes of the brain. Mild degree of mucosal thickening along the posterolateral aspect of the right ethmoid sinus. Electronically Signed: Adrien Call MD at 15:20 EDT ,
== END | disposition home or self-care (01) ==
LOC: CT 14:23
PROVIDERS: PCP Family Medicine; Referring Provider Psychiatry & Neurology Neurology; Visit Provider Psychiatry & Neurology Neurology
DX: R55 Syncope and collapse (principal)
CPT/HCPCS: 70450

== ENCOUNTER → 2023-02-24 | Outpatient (CLI) | payer MEDICARE, SELFPAY ==
[2023-02-24 10:10] LABS: Bacteria 0 SEEN /hpf (None Seen); Mucous, Urine 0 SEEN /hpf (<or=2+); Red Blood Cells-Urine 0 SEEN /hpf (0-5); Squamous Epithelial Cells - UA 0 SEEN /hpf (0-5); White Blood Cells 0 SEEN /hpf (0-5)
[2023-02-24 12:37] LABS: Color, Urine Yellow (Yellow); Glucose, Dipstick Normal (Normal); Ketone-Dipstick Negative (Negative); Leukocyte Esterase-Dipstick Negative /ul (Negative); Nitrite-Dipstick Negative (Negative); Occult Blood-Urine Negative /ul (Negative); Protein-Dipstick 15 mg/dl (Negative); Urine Bilirubin Dipstick Negative (Negative); Urine Clarity Clear (Clear); Urine Urobilinogen Normal (Normal)
[2023-02-24 12:56] LABS: Microalbumin,Random Urine 35.2 mg/L (NO RANGE EST.); Microalbumin:Creatinine Ratio 22.4 mg/g CRE (<30 mg/g CRE); Protein, Urine (Random) 27.1 mg/dL (<11.9); Protein:Creat Ratio 173 mg/g CRE (0-200)
[2023-02-24 13:06] LABS: Absolute Lymphocyte Count 1.88 X10^3/uL (0.83-4.51); Absolute Neutrophil Count 5.7 X10^3/uL (2.0-7.7); Basophil# 0.07 X10^3/uL; Basophil% 0.8 % (0-1); Eosinophils% 3.4 % (0-5); Hematocrit 44.1 % (40-54); Hemoglobin 14.3 g/dL (13.0-16.5); Lymphocyte # 1.88 X10^3/ul (0.83-4.51); Lymphocyte % 21.2 % (19-41); Mean Corp Hgb Conc 32.4 g/dL (32-36); Mean Corpuscular Hgb 33.3 pg (27.0-32.0); Mean Corpuscular Volume 102.6 fL (80-94); Mean Platelet Vol. 11.2 fl (6.2-12.0); Monocyte# 0.84 X10^3/uL; Monocyte% 9.5 % (0-10); NRBC Flagged by Analyzer 0 % (0-5); Neutrophil # 5.71 X10^3/uL (2.7-7.7); Neutrophil % 64.5 % (47-70); Platelet Count 287 K/mm3 (150-450); RBC Distribution Width CV 13.1 % (11.6-14.6); RBC Distribution Width SD 49.6 fl (35.1-43.9); White Blood Count 8.9 K/mm3 (4.4-11.0)
[2023-02-24 13:15] LABS: Vitamin B12 329 pg/mL (211-911); Vitamin D,25 Hydroxy 56.2 ng/mL
[2023-02-24 13:36] LABS: ALB/GLOB Ratio 1.1 RATIO (0.9-2.4); AST(SGOT) 10 U/L (15-37); Alanine Aminotransfer ALT/SGPT 23 U/L (16-61); Albumin, Serum 3.6 g/dL (3.2-5.0); Alkaline Phosphatase 84 U/L (45-117); Anion Gap 6 (5-15); BUN 17 mg/dL (7-18); BUN/Creat Ratio 11.3 RATIO (10-20); CPK Total, Creatine Kinase 52 U/L (39-308); Chloride 109 mmol/L (98-107); Cholesterol 157 mg/dL (200); Creatinine, Serum 1.51 mg/dL (0.70-1.30); EST Glomerular Filtration Rate 47 mL/min (>60); Est Glom Filt Rate - Afr Amer 57 mL/min (>60); Ferritin 235 ng/mL (26-388); Globulin 3.4 g/dL (2.2-4.2); Glucose 113 mg/dL (74-106); High Density Lipoprotein 44 mg/dL; Magnesium 2.2 mg/dL (1.6-2.6); Phosphorus 2.5 mg/dL (2.5-4.9); Potassium 4.4 mmol/L (3.5-5.1); Sodium Level 142 mmol/L (136-145); Thyroid Stim Hormone (TSH) 3.76 uIU/mL (0.358-3.74); Triglycerides 273 mg/dL; Very Low Density Lipoprotein 55 mg/dL (5-40)
[2023-02-24 15:00] LABS: Hemoglobin A1c 5.7 % (3.8-5.6)
[2023-02-27 15:44] LABS: T4 Free Direct 1.02 ng/dL (0.76-1.46)
[2023-03-01 16:10] LABS: Anti-Thyroglobulin AB < 1.0 IU/mL (0.0-0.9); Thyroid Peroxidase AB < 9 IU/mL (0-34)
[2023-03-02 00:07] LABS: VITAMIN B6 2.2 ug/L (3.4-65.2); Vitamin B1, Thiamine 120.3 nmol/L (66.5-200.0)
== END | disposition home or self-care (01) ==
LOC: MFPLAB 10:04
PROVIDERS: PCP Family Medicine; Visit Provider Family Medicine
DX: R79.89 Other specified abnormal findings of blood chemistry (principal); E11.65 Type 2 diabetes mellitus with hyperglycemia; E55.9 Vitamin D deficiency, unspecified; R25.2 Cramp and spasm
CPT/HCPCS: 36415; 80053; 80061; 81001; 82043; 82306; 82550; 82570; 82607; 82728; 83036; 83735; 84100; 84156; 84207; 84425; 84432; 84439; 84443; 85025; 86376; 86800

== ENCOUNTER → 2023-05-16 | Outpatient (CLI) | payer MEDICARE, SELFPAY ==
[2023-05-16 15:31] LABS: Absolute Lymphocyte Count 1.92 X10^3/uL (0.83-4.51); Absolute Neutrophil Count 5.5 X10^3/uL (2.0-7.7); Basophil# 0.04 X10^3/uL; Basophil% 0.5 % (0-1); Eosinophil# 0.08 X10^3/uL; Hematocrit 43.3 % (40-54); Hemoglobin 14.4 g/dL (13.0-16.5); Lymphocyte # 1.92 X10^3/ul (0.83-4.51); Lymphocyte % 23.5 % (19-41); Mean Corp Hgb Conc 33.3 g/dL (32-36); Mean Corpuscular Volume 99.1 fL (80-94); Mean Platelet Vol. 10.4 fl (6.2-12.0); Monocyte# 0.57 X10^3/uL; NRBC Flagged by Analyzer 0 % (0-5); Neutrophil # 5.52 X10^3/uL (2.7-7.7); Neutrophil % 67.4 % (47-70); Platelet Count 263 K/mm3 (150-450); RBC Distribution Width CV 13.8 % (11.6-14.6); RBC Distribution Width SD 50.5 fl (35.1-43.9); Red Blood Count 4.37 M/mm3 (4.6-6.2); White Blood Count 8.2 K/mm3 (4.4-11.0)
[2023-05-16 15:57] LABS: ALB/GLOB Ratio 0.9 RATIO (0.9-2.4); AST(SGOT) 15 U/L (15-37); Alanine Aminotransfer ALT/SGPT 25 U/L (16-61); Albumin, Serum 3.5 g/dL (3.2-5.0); Alkaline Phosphatase 86 U/L (45-117); Anion Gap 4 (5-15); BUN 23 mg/dL (7-18); BUN/Creat Ratio 15.4 RATIO (10-20); Calcium,Total 8.7 mg/dL (8.5-10.1); Chloride 106 mmol/L (98-107); Cholesterol 196 mg/dL (200); Creatinine, Serum 1.49 mg/dL (0.70-1.30); EST Glomerular Filtration Rate 48 mL/min (>60); Est Glom Filt Rate - Afr Amer 58 mL/min (>60); Globulin 3.7 g/dL (2.2-4.2); Glucose 165 mg/dL (74-106); High Density Lipoprotein 53 mg/dL; Phosphorus 2.6 mg/dL (2.5-4.9); Potassium 4.1 mmol/L (3.5-5.1); Protein, Total 7.2 g/dL (6.4-8.2); Sodium Level 138 mmol/L (136-145); T4 Free Direct 0.74 ng/dL (0.76-1.46); Thyroid Stim Hormone (TSH) 4.03 uIU/mL (0.358-3.74); Triglycerides 300 mg/dL; Very Low Density Lipoprotein 60 mg/dL (5-40)
[2023-05-16 16:50] LABS: Hemoglobin A1c 5.9 % (3.8-5.6)
[2023-05-16 16:55] LABS: Vitamin B12 380 pg/mL (211-911); Vitamin D,25 Hydroxy 34.2 ng/mL
[2023-05-24 19:07] LABS: VITAMIN B6 35.4 ug/L (3.4-65.2); Vitamin B1, Thiamine 145.4 nmol/L (66.5-200.0)
== END | disposition home or self-care (01) ==
LOC: MFPLAB 14:02
PROVIDERS: PCP Family Medicine; Visit Provider Family Medicine
DX: E11.22 Type 2 diabetes mellitus with diabetic chronic kidney disease (principal); N18.9 Chronic kidney disease, unspecified; E03.9 Hypothyroidism, unspecified; E53.9 Vitamin B deficiency, unspecified; E55.9 Vitamin D deficiency, unspecified
CPT/HCPCS: 36415; 80053; 80061; 82306; 82607; 83036; 84100; 84207; 84425; 84439; 84443; 85025

== ENCOUNTER → 2023-08-17 | Outpatient (CLI) | payer MEDICARE, SELFPAY ==
[2023-08-17 12:19] LABS: Protein, Urine (Random) 13.2 mg/dL (<11.9); Protein:Creat Ratio 162 mg/g CRE (0-200)
[2023-08-17 12:22] LABS: Hematocrit 40.5 % (40-54); Hemoglobin 12.6 g/dL (13.0-16.5); Mean Corp Hgb Conc 31.1 g/dL (32-36); Mean Corpuscular Hgb 32.8 pg (27.0-32.0); Mean Corpuscular Volume 105.5 fL (80-94); Mean Platelet Vol. 10.8 fl (6.2-12.0); Platelet Count 231 K/mm3 (150-450); RBC Distribution Width CV 13.4 % (11.6-14.6); RBC Distribution Width SD 52.4 fl (35.1-43.9); Red Blood Count 3.84 M/mm3 (4.6-6.2); White Blood Count 7.8 K/mm3 (4.4-11.0)
[2023-08-17 12:46] LABS: Albumin, Serum 3.5 g/dL (3.2-5.0); BUN 29 mg/dL (7-18); BUN/Creat Ratio 13.9 RATIO (10-20); Calcium,Total 8.6 mg/dL (8.5-10.1); Chloride 109 mmol/L (98-107); Creatinine, Serum 2.09 mg/dL (0.70-1.30); EST Glomerular Filtration Rate 33 mL/min (>60); Est Glom Filt Rate - Afr Amer 39 mL/min (>60); Glucose 99 mg/dL (74-106); PTHIN 51.6 pg/mL (18.4-80.1); Potassium 4.4 mmol/L (3.5-5.1); Sodium Level 141 mmol/L (136-145)
[2023-08-17 12:49] LABS: Vitamin D,25 Hydroxy 62.2 ng/mL
[2023-08-17 12:55] LABS: T4 Free Direct 1.01 ng/dL (0.76-1.46)
[2023-08-21 14:08] LABS: Albumin 3.5 g/dL (2.9-4.4); Alpha-1-Globulins 0.2 g/dL (0.0-0.4); Alpha-2-Globulins 0.6 g/dL (0.4-1.0); Gamma Globulin 0.9 g/dL (0.4-1.8); Immunoglobulin A 159 mg/dL (61-437); Immunoglobulin G 883 mg/dL (603-1613); Immunoglobulin M 39 mg/dL (15-143)
== END | disposition home or self-care (01) ==
LOC: MTLAB 10:42
PROVIDERS: Psychiatry & Neurology Neurology; PCP Family Medicine; Referring Provider Internal Medicine Nephrology; Visit Provider Internal Medicine Nephrology
DX: E55.9 Vitamin D deficiency, unspecified (principal); N18.31 Chronic kidney disease, stage 3a; E78.5 Hyperlipidemia, unspecified
CPT/HCPCS: 36415; 80069; 82306; 82570; 82784; 83970; 84156; 84165; 84439; 84443; 85027; 86334; 86335

== ENCOUNTER → 2023-08-24 | Outpatient (CLI) | payer MEDICARE, SELFPAY ==
--- NOTE | 2023-08-24 09:25 | US_ITS ---
INDICATION: limitied left flank, costal margin for subcutaneous mass, lipoma EXAMINATION: Ultrasound US Abdomen Limited (quadrant) TECHNIQUE: Morales scale and color doppler imaging was performed of the left flank region. COMPARISON: FINDINGS: Limited images of the left flank region demonstrate normal subcutaneous soft tissue. No space-occupying mass or drainable collection. No architectural distortion. . US/Abdomen Limited IMPRESSION: No mass or collection in the area of concern. Electronically Signed: Herb Ramsey DO at 23:54 EST ,
== END | disposition home or self-care (01) ==
LOC: US 09:24
PROVIDERS: PCP Family Medicine; Referring Provider Family Medicine; Visit Provider Family Medicine
DX: R22.2 Localized swelling, mass and lump, trunk (principal)
CPT/HCPCS: 76705

== ENCOUNTER 2023-08-27 09:35 | Emergency (ER) | payer MEDICARE, SELFPAY ==
[2023-08-27 09:35] VITALS: BP 165/79; PULSE 62; RESP 18; TEMP 36.2; O2SAT 96; BMI 26.9
--- NOTE | 2023-08-27 10:55 | VDLE_ITS ---
Reason For Study: swelling Procedure LEFT This is a venous duplex using B-mode, color CFV is compressible, spontaneous, phasic, flow and spectral Doppler. competent, and demonstrates normal Exam performed portable in ED. augmentation. The exam was abbreviated due to the COVID 19 Chronic vein wall thickening is noted in the protocol. FV, POP V, and T/PTrunk with normal venous The exam was diagnostic. flow patterns. A preliminary report was called and/or faxed Acute deep vein thrombosis is noted in the to Dr. Shultz. Soleus V. It is dilated and NONCOMPRESSIBLE. PTV is compressible. LT PerV is compressible. GSV is normal. VL/Venous Duplex US, Unilateral Interpretation Summary Acute deep vein thrombosis is noted in the left soleus vein. Ordering Physician: Rachid Shultz Performed By: Rocael Gomez RVT
--- NOTE | 2023-08-27 11:25 | ED.VIS.LOWEX ---
HPI History of Present Illness Chief Complaint: Lower Extremity Injury Informant: patient Narrative Narrative: 82-year-old male presenting to the emergency room with a chief complaint of concern for left leg DVT. Patient states he has had a prior DVT in this leg. 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 He completed treatment and has been off for several years. Most recently has been having osteoarthritic pain of the knee and he completed physical therapy and he states he is not a candidate for knee replacement. Patient has been wearing a compression neoprene sleeve and strap along with a orthotic brace. He wears some compression stockings at times. He notes that yesterday he had increased swelling of his ankle and today increased swelling up to the tibial tuberosity on the left side. He denies any pain in the calf or the thigh that is different from his baseline pain. He notes no recent surgeries or trips. [facility] Medical History Alcohol abuse Alcohol use Back pain Cardiology follow-up encounter Cataracts, bilateral Chest pain Chronic fatigue Chronic kidney disease, stage 3 Chronic pain Diabetes Diabetes mellitus Dietary restriction DVT (deep venous thrombosis) Encounter for screening for COVID-19 Essential hypertension Fatigue Fibromyalgia Former smoker Gastric reflux Gout History of DVT (deep vein thrombosis) History of Holter monitoring History of kidney stones History of rheumatic fever History of stress test HTN (hypertension) Hyperlipidemia Hypertriglyceridemia Injury of head and neck inspire device implant intracular lenses x2 Leg cramps Mixed hyperlipidemia ROSITA (obstructive sleep apnea) Osteoarthritis Passed out Prostate Tissues Raynaud disease Restless legs (Unknown) Skin cancer Squamous cell cancer of external ear Syncope and collapse Thinning of skin Type 2 diabetes mellitus Wears glasses Wears hearing aid Home Medications duloxetine 60 mg capsule,delayed release 60 mg PO BID depression 04/17/14 [History Last Taken 01/06/18] losartan 25 mg tablet 25 mg PO QHS blood pressure 04/17/14 [History Last Taken 01/05/18] mecobalamin (vitamin B12) 10,000 mcg solution for injection 10,000 mcg IM MONTHLY 08/13/20 [History Last Taken Unknown] atorvastatin 20 mg tablet 20 mg PO DAILY 06/04/21 [History Last Taken Unknown] cholecalciferol (vitamin D3) 25 mcg (1,000 unit) capsule 1,000 unit PO DAILY vitamin 07/28/22 [History Last Taken Unknown] blood sugar diagnostic ([employer] Verio test strips) 09/06/22 [History Last Taken Unknown] ketoconazole 2 % shampoo 1 applic topical 2XW PRN 09/06/22 [History Last Taken Unknown] diphenhydramine HCl 25 mg capsule 50 mg PO QHS PRN 11/23/22 [History Last Taken Unknown] dupilumab 300 mg/2 mL subcutaneous pen injector (Dupixent) 300 mg subcut Q2W 11/23/22 [History Last Taken Unknown] ascorbate calcium (vitamin C) 500 mg tablet 2,000 mg PO DAILY 08/01/23 [History Last Taken Unknown] gabapentin 300 mg capsule 300 mg PO TID 08/01/23 [History Last Taken Unknown] levothyroxine 50 mcg capsule 50 mcg PO DAILY 08/01/23 [History Last Taken Unknown] pyridoxine (vitamin B6) 100 mg tablet 100 mg PO DAILY 08/01/23 [History Last Taken Unknown] folic acid 1 mg tablet 1 mg PO DAILY #30 tabs 08/03/23 [Rx Last Taken Unknown] guaifenesin 200 mg tablet 200 mg PO BID 08/03/23 [History Last Taken Unknown] omeprazole 40 mg capsule,delayed release 40 mg PO BID 08/03/23 [History Last Taken Unknown] tizanidine 4 mg tablet See Rx Instructions PO QHS PRN muscle spasticity/insomnia/leg restlessness #60 tabs 08/03/23 [Rx Last Taken Unknown] verapamil 120 mg tablet,extended release 120 mg PO QAM #90 tabs 08/03/23 [Rx Last Taken Unknown] apixaban 5 mg (74 tabs) tablets in a dose pack (Eliquis DVT-PE Treat 30D Start) 5 mg PO BID #74 tabs 08/27/23 [Rx Last Taken Unknown] Allergy/AdvReac Type Severity Reaction Status Date / Time tamsulosin Allergy Severe Blacked Verified 08/27/23 09:35 out, Passed out meloxicam Allergy Unknown Decrease Verified 08/27/23 09:35 in kidney function alfuzosin HCl Allergy Unknown Verified 08/27/23 09:35 [From Uroxatral] ezetimibe [From Zetia] Allergy Pain in Verified 08/27/23 09:35 joints pramipexole di-HCl Allergy Other Verified 08/27/23 09:35 [From Mirapex] simvastatin [From Zocor] Allergy Pain in Verified 08/27/23 09:35 joints celecoxib [From Celebrex] AdvReac Unknown Unknown Verified 08/27/23 09:35 lisinopril AdvReac Other Verified 08/27/23 09:35 Family History Brother Myocardial infarction, Onset Age: 58 Sister Cancer Breast Grandfather Myocardial infarction Other Arthritis Breast cancer FH: defects Surgical History H/O cataract removal with insertion of prosthetic lens History of esophagogastroduodenoscopy (EGD) History of repair of anterior cruciate ligament of left knee History of total right knee replacement (TKR) History of transurethral resection of prostate Hx of colonoscopy Social History Smoking Status: Former smoker alcohol intake: current alcohol intake frequency: 0-2 drinks per day details: 4-5 shots of [place] daily substance use type: does not use caffeine: Yes Type: coffee Number of servings: 3 what type of physical activity do you participate in: none ROS ROS ED Constitutional Constitutional ED: Denies chills or weight loss Eyes Eyes: Denies change in vision or diplopia ENT ENT ED: Denies ear pain, rhinorrhea or sore throat Cardiovascular Cardiovascular: Denies chest pain, orthopnea, palpitations or racing heartbeat Respiratory/Chest Respiratory/Chest: Denies cough, dyspnea or orthopnea Gastrointestinal Gastrointestinal: Denies abdominal pain, diarrhea, nausea or vomiting Genitourinary Genitourinary ED: Denies dysuria, hematuria or urinary frequency Musculoskeletal Musculoskeletal: Reports other Details: See history of present illness swelling left lower extremity ; Denies arthralgias or myalgias Integumentary Denies abscess or rash Neurologic Neurologic: Denies headache(s) or weakness Psychiatric Psychiatric: Denies anxiety, depression, suicidal ideation or suicidal thoughts Endocrine Endocrinology: Denies polydipsia, polyphagia or polyuria Allergic/Immunologic Allergic/Immunologic ED: Denies mouth swelling, tongue swelling or urticaria EXAM Physical Exam Const Vital Signs: 08/27/23 09:35 Temperature 97.2 F L Temperature Source Temporal Pulse Rate 62 Respiratory Rate 18 Blood Pressure 165/79 H Blood Pressure Mean 107 Pulse Ox 96 Oxygen Delivery Method Room Air Positive well nourished and well developed General Appearance ED: well developed HEENT Reports normocephalic, head/scalp atraumatic and moist mucous membranes Eyes PERRL and EOMs intact bilaterally Neck no lymphadenopathy, supple and no JVD Resp normal respiratory effort and clear to auscultation bilaterally Cardio regular rate, regular rhythm and no murmurs GI normal to inspection, nondistended, normoactive bowel sounds and non-tender Palpation: soft Back/Spine no CVA tenderness and normal ROM Extremity Extremity Narrative: Nonpitting edema of the left lower extremity from the tibial tuberosity down to the foot. I do not palpate any cords. The skin color is normal. The thigh is nontender particularly over the medial venous system. No significant joint effusion on the left knee. Neuro oriented x3 and CN's II-XII intact bilaterally Sensorium / Orientation: alert Motor Exam: strength 5/5 throughout Psych mental status grossly normal Mood & Affect: Negative for depressed or tearful Skin no rashes or lesions noted and no wounds MDM MDM MDM Narrative Medical decision making narrative: I performed a quick bedside ultrasound of the femoral vein on the left which is collapsible with no obvious DVT. I ordered a duplex ultrasound which demonstrated a soleal vein DVT. I spoke with Dr. Bower covering his primary care doctor and I spoke with pharmacy regarding his creatinine of 2.09. No renal adjustments for DVT treatment. He will be started on Eliquis. Discharge Plan Triage Chief Complaint: Lower Extremity Injury ED Provider: Rachid Shultz Dx/Rx/DC Orders Clinical Impression: Lymphedema of left lower extremity, DVT of lower extremity (deep venous thrombosis) Instructions: ED Deep Vein Thrombosis (DVT) Prescriptions: New Eliquis DVT-PE Treat 30D Start 5 mg (74 tabs) tablets,dose pack 5 mg PO BID Qty: 74 0RF No Action mecobalamin (vitamin B12) 10,000 mcg recon soln 10,000 mcg IM MONTHLY atorvastatin 20 mg tablet 20 mg PO DAILY diphenhydramine HCl 25 mg capsule 50 mg PO QHS PRN ketoconazole 2 % shampoo 1 applic topical 2XW PRN omeprazole 40 mg capsule,delayed release(DR/EC) 40 mg PO BID (DME) OneTouch Verio test strips Strip See Rx Instructions .ROUTE .MEDSUPPLY Rx Instructions: Check weekly Dupixent Pen 300 mg/2 mL pen injector 300 mg subcut Q2W gabapentin 300 mg capsule 300 mg PO TID levothyroxine 50 mcg capsule 50 mcg PO DAILY pyridoxine (vitamin B6) 100 mg tablet 100 mg PO DAILY guaifenesin 200 mg tablet 200 mg PO BID folic acid 1 mg tablet 1 mg PO DAILY Qty: 30 5RF tizanidine 4 mg tablet See Rx Instructions PO QHS PRN (Reason: muscle spasticity/insomnia/leg restlessness) Qty: 60 5RF Rx Instructions: Take 1 to 2 tablets orally at bedtime PRN verapamil 120 mg tablet extended release 120 mg PO QAM Qty: 90 1RF losartan 25 MG tablet 25 mg PO QHS Patient Comments: blood pressure duloxetine 60 MG capsule 60 mg PO BID Patient Comments: enhance mood cholecalciferol (vitamin D3) 25 mcg (1,000 unit) capsule 1,000 unit PO DAILY Patient Comments: vitamin,supplement ascorbate calcium (vitamin C) 500 mg tablet 2,000 mg PO DAILY Primary Care Provider: Woodrow Al Referrals: Woodrow Al MD [Primary Care Provider] - 1-2 Weeks Disposition Disposition: Home, Self Care
[2023-08-27 12:32] VITALS: BP 140/64; PULSE 64; RESP 14; TEMP 36.4; O2SAT 99
== END 2023-08-27 12:34 | disposition home or self-care (01) ==
PROVIDERS: Emergency Provider Emergency Medicine; PCP Family Medicine; Visit Provider Emergency Medicine
DX: I89.0 Lymphedema, not elsewhere classified (principal); E11.22 Type 2 diabetes mellitus with diabetic chronic kidney disease; I82.462 Acute embolism and thrombosis of left calf muscular vein; N18.30 Chronic kidney disease, stage 3 unspecified; Z86.718 Personal history of other venous thrombosis and embolism; Z87.891 Personal history of nicotine dependence
CPT/HCPCS: 93971; 99282

== ENCOUNTER → 2023-09-06 | Outpatient (CLI) | payer MEDICARE, SELFPAY ==
[2023-09-06 13:12] LABS: Hemoglobin A1c 5.5 % (3.8-5.6)
[2023-09-06 13:24] LABS: ALB/GLOB Ratio 1.2 RATIO (0.9-2.4); AST(SGOT) 24 U/L (15-37); Alanine Aminotransfer ALT/SGPT 31 U/L (16-61); Albumin, Serum 3.8 g/dL (3.2-5.0); Alkaline Phosphatase 70 U/L (45-117); Anion Gap 7 (5-15); BUN 28 mg/dL (7-18); BUN/Creat Ratio 13.9 RATIO (10-20); Calcium,Total 8.7 mg/dL (8.5-10.1); Chloride 105 mmol/L (98-107); Cholesterol 145 mg/dL (200); Creatinine, Serum 2.01 mg/dL (0.70-1.30); EST Glomerular Filtration Rate 34 mL/min (>60); Est Glom Filt Rate - Afr Amer 41 mL/min (>60); Globulin 3.3 g/dL (2.2-4.2); Glucose 100 mg/dL (74-106); High Density Lipoprotein 44 mg/dL; Potassium 4.3 mmol/L (3.5-5.1); Protein, Total 7.1 g/dL (6.4-8.2); Sodium Level 139 mmol/L (136-145); Triglycerides 135 mg/dL; Very Low Density Lipoprotein 27 mg/dL (5-40)
== END | disposition home or self-care (01) ==
LOC: MFPLAB 11:24
PROVIDERS: PCP Family Medicine; Visit Provider Family Medicine
DX: E11.8 Type 2 diabetes mellitus with unspecified complications (principal)
CPT/HCPCS: 36415; 80053; 80061; 83036

== ENCOUNTER 2023-09-25 13:00 | Outpatient (RCR) | payer MEDICARE, SELFPAY ==
--- NOTE | 2023-09-25 13:49 | HP.PTDCSUM ---
Discharge Summary D/C summary: It has been my pleasure to treat TEMO GARRISON referred by ROCIO Jacob, with the diagnosis of Left Hip Pain for a total of 9 visit(s). Discharge Date: 09/25/23 Please see the following information for a summary of their discharge status. Subjective Subjective: I wrote a letter to Dr Vickers to see if a cat scan for find out what is going on with my back rib area. Pain Left rib pain: Pain Intensity (Out of 10): 2 Neck Pain (Chronic): Pain Intensity (Out of 10): 7 Overall Improvement % Improvement: 50 Objective Objective/Function: Subjectively his pain has decreased to a 2/10 for his left rib area. I tried to add rotation activities and trunk strengthening today but he felt light headed. He thinks that a cat scan may help diagnosis his condition. Goals Goal 1:: Understand the HEP and return demo. SKC, DKC, side rotations in supine, seated forward flexion Goal Progress: Goal Met Goal 2:: Decrease pain to 4-5 via manual therapy techniques. Goal Progress: Goal Met Goal 3:: Initiate a dynamic strengthing program Goal Progress: Not Progressing Plan Plan: Discharge to physician for further evaluation D/C Information Discharge Comments: Pain is decreased to 2/10 for hip and 7/10 for neck and feels about 505 Better. Probably needs further dx to see if left rib pain related to OA or kidney referral as he has multiple systemic problems d/c sentence: If there are questions or concerns regarding this patient's physical therapy, please feel free to call me at [phone]. Thank you for the referral of this patient. Sincerely, Jass Ch, PT, PAIGE, SCS, CSCS Balance/Gait/Functional tests Balance/Special Test Scores Lower Extremity Functional Score: 66 Improvement % Improvement: 50
== END 2023-09-25 19:00 | disposition home or self-care (01) ==
LOC: PT 13:00
PROVIDERS: PCP Family Medicine; Visit Provider Nurse Practitioner Family
DX: M25.552 Pain in left hip (principal)
CPT/HCPCS: 97014; 97035; 97110; 97162; G0283

== ENCOUNTER → 2023-10-12 | Outpatient (CLI) | payer MEDICARE, SELFPAY ==
--- NOTE | 2023-10-12 11:48 | RAD_ITS ---
STUDY: X-RAY - BILATERAL RIBS REASON FOR EXAM: Male, 82 years old. Rib pain. TECHNIQUE: 8 view(s) of the ribs. COMPARISON: Chest x-ray dated June 15, 2022 FINDINGS: Diffuse osteopenia. No displaced rib fracture. Electronic device projected over the right lower chest unchanged from prior chest x-ray. Mild dilatation of jejunum in the right upper quadrant with multiple air-fluid levels. RAD/Ribs Bilat 3V No CXR IMPRESSION: Osteopenia with no displaced rib fracture. Electronically Signed: Jose Alfredo Velazquez MD at 15:03 EST ,
== END | disposition home or self-care (01) ==
LOC: MTRAD 11:45
PROVIDERS: PCP Family Medicine; Referring Provider Family Medicine; Visit Provider Family Medicine
DX: R07.81 Pleurodynia (principal)
CPT/HCPCS: 71110

== ENCOUNTER → 2023-11-17 | Outpatient (CLI) | payer MEDICARE, SELFPAY ==
[2023-11-17 15:26] LABS: Absolute Lymphocyte Count 1.78 X10^3/uL (0.83-4.51); Absolute Neutrophil Count 4.3 X10^3/uL (2.0-7.7); Basophil# 0.06 X10^3/uL; Basophil% 0.9 % (0-1); Eosinophil# 0.11 X10^3/uL; Eosinophils% 1.6 % (0-5); Hemoglobin 13.2 g/dL (13.0-16.5); Lymphocyte # 1.78 X10^3/ul (0.83-4.51); Lymphocyte % 25.3 % (19-41); Mean Corp Hgb Conc 31.4 g/dL (32-36); Mean Corpuscular Hgb 32.1 pg (27.0-32.0); Mean Corpuscular Volume 102.2 fL (80-94); Mean Platelet Vol. 10.9 fl (6.2-12.0); Monocyte# 0.79 X10^3/uL; Monocyte% 11.2 % (0-10); NRBC Flagged by Analyzer 0 % (0-5); Neutrophil # 4.28 X10^3/uL (2.7-7.7); Neutrophil % 60.7 % (47-70); Platelet Count 232 K/mm3 (150-450); RBC Distribution Width SD 52.6 fl (35.1-43.9); Red Blood Count 4.11 M/mm3 (4.6-6.2)
[2023-11-17 15:35] LABS: Color, Urine Yellow (Yellow); Glucose, Dipstick Normal (Normal); Ketone-Dipstick Negative (Negative); Leukocyte Esterase-Dipstick Negative /ul (Negative); Nitrite-Dipstick Negative (Negative); Occult Blood-Urine Negative /ul (Negative); Protein-Dipstick Negative (Negative); Urine Bilirubin Dipstick Negative (Negative); Urine Clarity Clear (Clear); Urine Urobilinogen Normal (Normal)
[2023-11-17 15:50] LABS: Vitamin D,25 Hydroxy 63.5 ng/mL
[2023-11-17 15:55] LABS: PTHIN 49.9 pg/mL (18.4-80.1)
[2023-11-17 15:59] LABS: ALB/GLOB Ratio 1.2 RATIO (0.9-2.4); AST(SGOT) 23 U/L (15-37); Alanine Aminotransfer ALT/SGPT 28 U/L (16-61); Albumin, Serum 3.5 g/dL (3.2-5.0); Alkaline Phosphatase 81 U/L (45-117); Anion Gap 0 (5-15); BUN 23 mg/dL (7-18); BUN/Creat Ratio 12.2 RATIO (10-20); Calcium,Total 8.7 mg/dL (8.5-10.1); Chloride 109 mmol/L (98-107); Cholesterol 141 mg/dL (200); Creatinine, Serum 1.88 mg/dL (0.70-1.30); EST Glomerular Filtration Rate 37 mL/min (>60); Est Glom Filt Rate - Afr Amer 44 mL/min (>60); Globulin 2.9 g/dL (2.2-4.2); Glucose 107 mg/dL (74-106); High Density Lipoprotein 43 mg/dL; Phosphorus 2.5 mg/dL (2.5-4.9); Potassium 4.6 mmol/L (3.5-5.1); Protein, Total 6.4 g/dL (6.4-8.2); Sodium Level 138 mmol/L (136-145); T4 Free Direct 1.09 ng/dL (0.76-1.46); Thyroid Stim Hormone (TSH) 0.73 uIU/mL (0.358-3.74); Triglycerides 121 mg/dL; Very Low Density Lipoprotein 24 mg/dL (5-40)
[2023-11-17 16:07] LABS: Microalbumin,Random Urine 27.3 mg/L (NO RANGE EST.); Microalbumin:Creatinine Ratio 36.7 mg/g CRE (<30 mg/g CRE); Protein, Urine (Random) 23.9 mg/dL (<11.9); Protein:Creat Ratio 321 mg/g CRE (0-200)
== END | disposition home or self-care (01) ==
LOC: MFPLAB 11:40
PROVIDERS: PCP Family Medicine; Visit Provider Family Medicine
DX: E11.22 Type 2 diabetes mellitus with diabetic chronic kidney disease (principal); E03.8 Other specified hypothyroidism; E55.9 Vitamin D deficiency, unspecified; N18.9 Chronic kidney disease, unspecified
CPT/HCPCS: 80053; 80061; 81002; 82043; 82306; 82570; 83036; 83970; 84100; 84156; 84439; 84443; 85025

== ENCOUNTER → 2023-11-20 | Outpatient (CLI) | payer MEDICARE, SELFPAY ==
--- NOTE | 2023-11-20 08:35 | ART_ITS ---
Reason For Study: PVD, BILATERAL FOOT PAIN Procedure A bilateral lower extremity continuous wave Doppler with analog waveform analysis,segmental pressures,and ankle brachial indexes without exercise. Left Segmental Pressures Left brachial= 136mmHg. Left posterior tibial artery = 171mmHg. Left dorsalis pedis artery = 163mmHg. Left digit = 80 mmHg. The left posterior tibial artery waveforms are triphasic. The left dorsalis pedis waveforms are triphasic. Right Segmental Pressures Right brachial= 141mmHg. Right posterior tibial artery = 173mmHg. Right dorsalis pedis artery = 166mmHg. Right digit = 91 mmHg. The right posterior tibial artery waveforms are triphasic. The right dorsalis pedis waveforms are triphasic. Indices The right resting ankle brachial index is 1.23. The right ankle brachial index by the posterior tibial artery is 1.23. The right ankle brachial index by the dorsalis pedis is 1.18. The right digital-brachial index is 0.65. The left resting ankle brachial index is 1.21. The left ankle brachial index by the posterior tibial artery is 1.21. The left ankle brachial index by the dorsalis pedis is 1.16. The left digital-brachial index is 0.57. VL/Lower Ext Art Exam w/o Exercis Interpretation Summary Right ANTONELLA 1.23, normal. Doppler/PVR waveforms of the right leg normal at rest. TBI and digit waveforms diminished, pedal/digit disease vs spasm Left ANTONELLA 1.21, normal. Doppler/PVR waveforms of the left leg normal at rest. TB I and digit waveforms diminished, pedal/digit disease vs spasm Ordering Physician: Joe Naranjo Referring Physician: MALICK CHRISTIE MD Performed By: Viridiana Jones RVT, RDCS
--- NOTE | 2023-11-20 08:35 | VDLE_ITS ---
Reason For Study: PVD, BILATERAL FOOT PAIN RIGHT LEFT GSV is normal. GSV is normal. CFV is compressible, spontaneous, phasic, CFV is compressible, spontaneous, phasic, competent and demonstrates normal competent, and demonstrates normal augmentation. augmentation. FV is compressible, spontaneous, phasic, FV is compressible, spontaneous, phasic, competent and demonstrates normal competent and demonstrates normal augmentation. augmentation. POP V is compressible, spontaneous, phasic, POP V is compressible, spontaneous, phasic, competent and demonstrates normal competent and demonstrates normal augmentation. augmentation. T/P Trunk is compressible. T/P Trunk is compressible. PTV is compressible. PTV is compressible. RT PerV is compressible. LT PerV is compressible. Procedure Soleus V appears compressible. This is a venous duplex using B-mode, color flow and spectral Doppler. Exam performed in department. VL/Venous Duplex US - Allan Extrem Interpretation Summary Deep veins of the bilateral lower extremities are patent and compressible segme ntally. There is no evidence of bilateral lower extremity deep vein thrombosis. The bilateral great saphenous veins appear patent and compressible segmentally. Ordering Physician: Joe Naranjo Referring Physician: Woodrow Al Performed By: Viridiana Jones, MERCED, RVT
--- OUTSIDE RECORDS SUMMARY | 2023-11-20 09:08 | XMS RPT_ITS | CCD ---
Author Name Unknown Address [address] [place] [address] Organization [facility] Care Team Providers Care Hot Mill Observer Name Role Phone Yulia Doll Unavailable Jeovany Goncalves Unavailable Unavailable Breana Goncalvesry Unavailable Unavailable Rhina Walter Unavailable Unavailab Alirio Daviser B Unavailable Unavailab RHINA Davis Unavailable Unavailable TEMO REED Unavailable Unavailable RHINA WALTER Unavailable Unavailable Asiya Sandoval Unavailable Unavailable PROVIDER, UNKNOWN Unavailable Unavailable No, PCP Unavailable Unavailable Monserrat Wilson Unavailable Unavailable DAMARIS SERNA Attending Unavailable DAMARIS SERNA Primary Care Unavailable KAREEMDAMARIS FUENTES Admitting Unavailable MONSERRAT WILSON Consulting Unavailable PROVIDER, UNKNOWN Consulting Unavailable PROVIDER, UNKNOWN Consulting Unavailable KAREEMDAMARIS FUENTES Primary Care Unavailable KAREEM, DAMARIS E Admitting Unavailable STEVE, MONSERRAT Consulting Unavailable KAREEMDAMARIS FUENTES Attending Unavailable PROVIDER, UNKNOWN Consulting Unavailable PROVIDER, UNKNOWN Consulting Unavailable Monserrat Wilson Unavailable Unavailable Unavailable Monserrat Wilson Primary Care Provider [phone] Monserrat Wilson Primary Care Provider [phone] Monserrat Wilson Primary Care Provider Monserrat Wilson MD Primary Care Provider Justin Dial Attending Unavailable Dr. Monserrat Wilson Primary Care Dr. Delmi Yusufh Zayda Referring Unavai lable Zakhary, Justin Attending Unavailable Zaharvey, Justin Referring Unavailable Miedyaw, Dr. Monserrat Priest Primary Care Unavai lable Zakhary, Justin Attending Unavailable Zakhary, Mahindine Referring Unavailable Miedyaw, Dr. Monserrat Priest Primary Care Unavai lable Marciaharvey, Justin Attending Unavailable Steve, Dr. Monserrat Priest Primary Care Unavai lable Marbellael, Dr. Monserrat Priest Referring Unavai lable Miedel, Dr. Monserrat Priest Primary Care Unavai lable Danielamarianna, Justin Attending Unavailable Steve, Dr. Monserrat Priest Referring Unavai lable Malick Christie Primary Care Provider Unavailable Primary Care Provider UnavailJUSTINO Pierre Attending Unavailable MALICK CHRISTIE Unavailable Malick Christie MD Primary Care Provider MALICK CHRISTIE Primary Care Unavailable MALICK CHRISTIE Primary Care Unavailable SMITH VILLAVICENCIO Attending Unavailable MALICK CHRISTIE Primary Care Unavailable MONSERRAT WILSON Referring Unavailable MONSERRAT WILSON Primary Care Unavailable Belén Bernal Attending Unavailable Allergies Allergy Classification Reported Allergen(s) Allergy Type Date of Onset Reaction(s) Facility Adrenergic Antagonists (2 sources) alfuzosin; Translations: [Uroxatral] Drug Allergy [facility] 204 Work Phone: Cholesterol Absorption Inhibitors (1 source) ezetimibe; Translations: [Z[facility]ia] [facility] Work Phone: HMG-CoA Reductase Inhibitors (statins) (1 source) Simvastatin; Translations: [Zocor] Drug Allergy TP-Ykzulojbb-T arma 204 Work Phone: NSAIDs (2 sources) celecoxib; Translations: [CeleBREX CAPS] Drug Allergy ER-Axqwlogcs-K arma 204 Work Phone: Pramipexole (1 source) Pramipexole; Translations: [Mirapex] Drug Allergy KF-Vtcvwjvvf-I arma 204 Work Phone: (20 sources) alfuzosin; Translations: [Uroxatral] Drug Allergy IY-Ffzdaqmyw-Z arma 204 Work Phone: (20 sources) celecoxib; Translations: [CeleBREX CAPS] Drug Allergy 2 Unknown [facility] (20 sources) ezetimibe; Translations: [ZETIA] Drug Allergy [facility] Repository (20 sources) meloxicam; Translations: [MELOXICAM] Drug Allergy 0 Unknown [facility] (20 sources) Pramipexole; Translations: [MIRAPEX] Drug Allergy [facility] (20 sources) Simvastatin; Translations: [ZOCOR] Drug Allergy [facility] (20 sources) tamsulosin; Translations: [tamsulosin] Drug Allergy 0 Intolerance, Syncope [facility] (1 source) celecoxib Drug Allergy [facility]ository (11 sources) alfuzosin; Translations: [ALFUZOSIN HCL] Drug Allergy 7 Other: See Comments [facility] (11 sources) ezetimibe; Translations: [EZETIMIBE] Drug Allergy 5 Other: See Comments [facility] (11 sources) Pramipexole; Translations: [PRAMIPEXOLE] Drug Allergy 0 Intolerance [facility] (12 sources) Simvastatin; Translations: [SIMVASTATIN] Drug Allergy 5 Other: See Comments [facility] (1 source) ezetimibe Drug Allergy 0 [facility] (1 source) Pramipexole Drug Allergy 0 [facility] (1 source) celecoxib; Translations: [CELECOXIB] Drug Allergy 2 [facility] Repository Medications Current Medications Medication Drug Class(es) Dates Sig (Normalized) Sig (Original) apixaban 5 mg oral tablet (20 sources) Factor Xa Inhibitor Start: 11-22-2019 End: 05-30-2023 take 1 tablet by mouth twice daily apixaban (ELIQUIS) 5 mg tab(s) Take 1 tablet by mouth twice daily. 90 tablet 3 06/17/2020 05/29/2023 Discontinued Completed/Discontinued Medications Medication Drug Class(es) Dates Sig (Normalized) Sig (Original) acyclovir 200 mg oral capsule (16 sources) Herpesvirus Nucleoside Analog DNA Polymerase Inhibitor, Herpes Simplex Virus Nucleoside Analog DNA Polymerase Inhibitor, Herpes Zoster Virus Nucleoside Analog DNA Polymerase Inhibitor Start: 10-11-2017 End: 05-30-2023 take 1 capsule by mouth once daily acyclovir 200 MG capsule Take 200 mg by mouth daily. 0 10/11/2017 05/30/2023 Discontinued (Therapy completed) Problems Active Problems Problem Classification Problem Date Documented Da te Episodic/Chronic Alcohol-related disorders (11 sources) Alcohol intake above recommended sensible limits; Translations: [Alcohol abuse, uncomplicated] Onset: 0 08-06-2020 Chronic Allergic reactions (2 sources) Dermatitis, unspecified; Translations: [Dermatitis, unspecified] Onset: 8 Episodic Chronic kidney disease (10 sources) Chronic kidney disease stage 3; Translations: [Stage 3 chronic kidney disease] Onset: 0 10-29-2019 Chronic Diabetes mellitus without complication (11 sources) Type 2 diabetes mellitus without complication; Translations: [Type 2 diabetes mellitus without complications] Onset: 7 06-07-2017 Chronic Disorders of lipid metabolism (11 sources) Mixed hyperlipidemia; Translations: [Mixed hyperlipidemia] Onset: 6 11-23-2015 Chronic Esophageal disorders (11 sources) Small's esophagus; Translations: [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] Onset: 2 12-02-2021 Chronic Essential hypertension (11 sources) Essential hypertension; Translations: [Essential (primary) hypertension] Onset: 6 11-23-2015 Chronic Gastrointestinal hemorrhage (2 sources) Gastrointestinal hemorrhage; Translations: [Hemorrhage of anus and rectum] 05-29-2023 Episodic Hemorrhoids (2 sources) Internal hemorrhoids; Translations: [Other hemorrhoids] 05-29-2023 Episodic Hyperplasia of prostate (10 sources) Benign prostatic hyperplasia; Translations: [Benign prostatic hyperplasia without lower urinary tract symptoms] Onset: 7 11-18-2016 Chronic Immunizations and screening for infectious disease (15 sources) Encounter for immunization; Translations: [Patient encounter status] Onset: 1 Episodic Osteoarthritis (11 sources) Degenerative joint disease involving multiple joints; Translations: [Polyosteoarthritis, unspecified] Onset: 3 11-23-2015 Chronic Other circulatory disease (10 sources) Raynaud's disease; Translations: [Raynaud's syndrome without gangrene] Onset: 2 02-19-2012 Chronic Other circulatory disease (20 sources) H/O: hypertension; Translations: [Personal history of other diseases of circulatory system] Episodic Other connective tissue disease (10 sources) Muscle pain; Translations: [Myalgia, unspecified site] 06-20-2016 Episodic Other connective tissue disease (10 sources) Fibromyalgia; Translations: [Fibromyalgia] 11-25-2016 Episodic Other gastrointestinal disorders (1 source) History of Small's esophagus; Translations: [Personal history of other diseases of the digestive system] Episodic Other hereditary and degenerative nervous system conditions (20 sources) Restless legs; Translations: [Restless legs syndrome (RLS)] Chronic Other hereditary and degenerative nervous system conditions (10 sources) Essential tremor; Translations: [Essential tremor] Onset: 6 11-23-2015 Chronic Other male genital disorders (10 sources) Male erectile dysfunction, unspecified; Translations: [Impotence of organic origin] Onset: 3 09-23-2013 Chronic Other nervous system disorders (3 sources) Other chronic pain; Translations: [Other chronic pain] Onset: 3 Chronic Other nervous system disorders (1 source) Chronic pain; Translations: [Other chronic pain] 05-30-2023 Chronic Other nutritional; endocrine; and metabolic disorders (20 sources) H/O: diabetes mellitus; Translations: [Personal history of other endocrine, metabolic, and immunity disorders] Episodic Other nutritional; endocrine; and metabolic disorders (20 sources) H/O: raised blood lipids; Translations: [Personal history of other endocrine, metabolic, and immunity disorders] Episodic Other nutritional; endocrine; and metabolic disorders (13 sources) Body mass index 25-29 - overweight; Translations: [Overweight] Episodic Rehabilitation care; fitting of prostheses; and adjustment of devices (14 sources) Patient encounter status; Translations: [Fitting and adjustment of neuropacemaker (brain) (peripheral nerve) (spinal cord)] Episodic Residual codes; unclassified (20 sources) Sleep apnea; Translations: [Unspecified sleep apnea] Chronic Residual codes; unclassified (20 sources) Obstructive sleep apnea of adult; Translations: [Obstructive sleep apnea (adult)(pediatric)] Chronic Residual codes; unclassified (20 sources) Hypoxia; Translations: [Idiopathic sleep related non-obstructive alveolar hypoventilation] Chronic Residual codes; unclassified (20 sources) Periodic limb movement disorder; Translations: [Periodic limb movement disorder] Chronic Residual codes; unclassified (10 sources) Obstructive sleep apnea syndrome; Translations: [Obstructive sleep apnea (adult) (pediatric)] Onset: 5 10-11-2021 Chronic Residual codes; unclassified (10 sources) Treatment-emergent central sleep apnea; Translations: [Other sleep apnea] Onset: 5 04-19-2016 Chronic Residual codes; unclassified (4 sources) Obstructive sleep apnea (adult) (pediatric); Translations: [Obstructive sleep apnea (adult) (pediatric)] Onset: 3 Chronic Residual codes; unclassified (14 sources) Other specified health status; Translations: [Intolerance of continuous positive airway pressure (CPAP) ventilation] Episodic Unclassified (1 source) No current problems or disability 08-23-2017 Unclassified (1 source) Acute cough; Translations: [Acute cough] Onset: 3 Past or Other Problems Problem Classification Problem Date Documented Da te Episodic/Chronic Other acquired deformities (10 sources) Mallet finger; Translations: [Mallet finger of unspecified finger(s)] Onset: 05-09-2011 05-09-2011 Episodic Other aftercare (1 source) Other halfway (current) drug therapy; Translations: [Other superintendent container terminal (current) drug therapy] Onset: 10-17-2022 Episodic Other aftercare (1 source) [facility]PC (current) use of oral hypoglycemic drugs; Translations: [superintendent container terminal (current) use of oral hypoglycemic drugs] Onset: 10-17-2022 Episodic Other connective tissue disease (1 source) Fibromyalgia; Translations: [Fibromyalgia] Onset: 10-17-2022 Episodic Other nutritional; endocrine; and metabolic disorders (1 source) Overweight; Translations: [Overweight] Onset: 10-17-2022 Episodic Other nutritional; endocrine; and metabolic disorders (1 source) Body mass index (BMI) 26.0-26.9, adult; Translations: [Body mass index [BMI] 26.0-26.9, adult] Onset: 10-17-2022 Episodic Other skin disorders (10 sources) Excessive sweating; Translations: [Generalized hyperhidrosis] Onset: 10-15-2017 10-15-2017 Episodic Phlebitis; thrombophlebitis and thromboembolism (20 sources) H/O: Deep vein thrombosis; Translations: [Personal history of venous thrombosis and embolism] Onset: 08-06-2020 08-06-2020 Episodic Spondylosis; intervertebral disc disorders; other back problems (10 sources) Chronic back pain ; Translations: [Dorsalgia, unspecified] Onset: 11-18-2016 11-18-2016 Episodic Results Test Name Value Interpretation Reference Range Facil ity Vital Signs Date Time Vital Sign Value Performing Clinician Facility 05-30-2023 12:47-0400 Body height 172.7 cm Justino Rader MD Work Phone: [facility] 05-30-2023 12:47-0400 Body mass index (BMI) [Ratio] 27.06 kg/m2 Justino Rader MD Work Phone: [facility] 05-30-2023 12:47-0400 Body temperature 96.91 [degF] Jutsino Rader MD Work Phone: [facility] 05-30-2023 12:47-0400 Body weight 80.74 kg Justino Rader MD Work Phone: [facility] 05-30-2023 12:47-0400 Heart rate 62 /min Justino Rader MD Work Phone: [facility] 05-30-2023 12:47-0400 SaO2% (BldA) [Mass fraction] 97 % Justino Rader MD Work Phone: [facility] 05-18-2023 15:22-0400 Body height 172.7 cm Belén Bernal PA-C Work Phone: [facility] 05-18-2023 15:22-0400 Body temperature 97.3 [degF] Belén Dolores PA-C Work Phone: [facility] 05-18-2023 15:22-0400 Body weight 81.65 kg Belén Dolores PA-C Work Phone: [facility] 05-18-2023 15:22-0400 Diastolic blood pressure 82 mm[Hg] Belén Forsgate PA-C Work Phone: [facility] 05-18-2023 15:22-0400 Heart rate 104 /min Belén Forsgate PA-C Work Phone: [facility] 05-18-2023 15:22-0400 SaO2% (BldA) [Mass fraction] 99 % Belén Dolores PA-C Work Phone: [facility] 05-18-2023 15:22-0400 Systolic blood pressure 136 mm[Hg] Belén Lozaf PA-C Work Phone: [facility] 02-27-2023 15:01-0400 Diastolic blood pressure 83 mm[Hg] Monserrat E Miedel Work Phone: [facility] A2470 DO Work Phone: 02-27-2023 15:01-0400 Heart rate 84 /min Monserrat E Miedel Work Phone: [facility] A2470 DO Work Phone: 02-27-2023 15:01-0400 Respiratory rate 18 /min Monserrat E Miedel Work Phone: [facility] A2470 DO Work Phone: 02-27-2023 15:01-0400 Systolic blood pressure 124 mm[Hg] Monserrat E Miedel Work Phone: [facility] A[facility] DO Work Phone: 11-21-2022 15:02-0500 Body height 173.99 cm Monserrat Domingoedel Work Phone: [facility] 2300 Work Phone: 11-21-2022 15:02-0500 Body mass index (BMI) [Ratio] 25.92 kg/m2 Monserrat Cross Miedel Work Phone: [facility] 2300 Work Phone: 11-21-2022 15:02-0500 Body surface area Derived from formula 1.93 m2 Monserrat Domingoedel Work Phone: [facility] 2300 Work Phone: 11-21-2022 15:02-0500 Body weight 78.47 kg Monserrat Domingoedel Work Phone: [facility]00 Work Phone: 11-21-2022 15:02-0500 Diastolic blood pressure 69 mm[Hg] Monserrat Cross Miedel Work Phone: [facility]00 Work Phone: 11-21-2022 15:02-0500 Heart rate 92 /min Monserrat Cross Miedel Work Phone: [facility]00 Work Phone: 11-21-2022 15:02-0500 Respiratory rate 18 /min Monserrat Cross Miedel Work Phone: [facility]00 Work Phone: 11-21-2022 15:02-0500 SaO2% (BldA) [Mass fraction] 98 % Monserrat Cross Miedel Work Phone: [facility]00 Work Phone: 11-21-2022 15:02-0500 Systolic blood pressure 119 mm[Hg] Monserrat Cross Miedel Work Phone: [facility]00 Work Phone: 12-16-2021 16:12-0500 Body mass index (BMI) [Ratio] 27.91 kg/m2 Monserrat Cross Miedel Work Phone: [facility] A2470 DO Work Phone: 12-16-2021 16:12-0500 Body surface area Derived from formula 2.02 m2 Monserrat Cross Miedel Work Phone: [facility] A2470 DO Work Phone: 12-16-2021 16:12-0500 Body weight 85.73 kg Monserrat Domingoedel Work Phone: [facility] A2470 DO Work Phone: 12-16-2021 16:12-0500 Diastolic blood pressure 93 mm[Hg] Monserrat Domingoedel Work Phone: [facility] A2470 DO Work Phone: 12-16-2021 16:12-0500 Heart rate 83 /min Monserrat Domingoedel Work Phone: [facility] A2470 DO Work Phone: 12-16-2021 16:12-0500 SaO2% (BldA) [Mass fraction] 98 % Monserrat Domingoedel Work Phone: [facility] A2470 DO Work Phone: 12-16-2021 16:12-0500 Systolic blood pressure 132 mm[Hg] Monserrat Cross Miedel Work Phone: [facility] A2470 DO Work Phone: 12-16-2021 16:12-0500 0 1 Monserrat E Miedel Work Phone: [facility] A2470 DO Work Phone: Encounters Encounter Date Encounter Type Care Provider Facility Start: 10-04-2023 End: 10-04-2023 ambulatory [facility] Facility:[facility] Start: 09-13-2023 Refill Smith schaffer MD Work Phone: General Surgery Procedures Date Procedure Procedure Detail Performing Clinician Start: 10-13-2020 Sleep std airflow hr t rate&o2 sat effort unatt Monserrat Miedel Start: 07-03-2018 Adult depression scr eening assessment Smith Villavicencio MD Work Phone: Arthroplasty of knee Monserrat Miedel Colonoscopy Monserrat Miedel Excision of lesion of skin H derik Miedel Hernia repair Monserrat Miedel Hypoglossal nerve stimulator insertion Monserrat America Miedel Work Phone: Insertion of therape utic device Monserrat Miedel Repair of anterior cruciate ligament of knee joint Monserrat Miedel Plan of Treatment Date Care Activity Detail Author Start: 08-18-2029 Tetanus vaccination TETANUS [facility] Start: 08-18-2029 Urine microalbumin profile DTaP,Tdap,Td Vaccine (4 - Td or Tdap) [facility] Start: 06-16-2023 Covid-19 Vaccine ( season) Covid-19 Vaccine ( season) [facility] Start: 06-16-2023 Influenza vaccination C [facility] Start: 11-13-2022 COVID-19 VACCINE (6 - Pfizer series) COVID-19 VACCINE (6 - Pfizer series) [facility] Start: 10-16-2022 ADVANCE DIRECTIVE DISCUSSION ADVANCE DIRECTIVE DISCUSSION [facility] Start: 10-16-2022 DEPRESSION ASSESSMENT DEPRESSION ASS ESSMENT [facility] Start: 06-16-2022 Influenza vaccination INFLUENZA (#1) [facility] Start: 11-14-2021 COVID-19 VACCINE (4 - Booster for Pfizer series) COVID-19 VACCINE (4 - Booster for Pfizer series) [facility] Start: 11-01-2021 NPVSLEEP, Provider: Justin Dial, Status: Pen, Time: 4:00 PM NPVSLEEP, Provider: Justin Dial, Status: Pen, Time: 4:00 PM XM-Acfpzyaqrojcem-Pbm ma MAC1 205 [place] Work Phone: Start: 11-01-2021 FUVGENERAL, Provider : Malick Weber, Status: Pen, Time: 9:00 AM FUVGENERAL, Provider: Malick Weber, Status: Pen, Time: 9:00 AM [facility] Work Phone: Start: 10-16-2021 ADVANCE DIRECTIVE DISCUSSION ADVANCE DIRECTIVE DISCUSSION [facility] Start: 10-16-2021 DEPRESSION ASSESSMENT DEPRESSION ASS ESSMENT [facility] Start: 10-14-2021 FUV, Provider: Temo Huitron, Status: Pen, Time: 9:00 AM FUV, Provider: Temo Huitron, Status: Pen, Time: 9:00 AM [facility] 400 DO Work Phone: Start: 09-28-2021 PFT, Provider: [facility] PFT ROOM,[id number], Status: Pen, Time: 10:00 AM PFT, Provider: TIGRE PFT ROOM,[id number], Status: Pen, Time: 10:00 AM [facility] 400 DO Work Phone: Start: 09-15-2021 NPV, Provider: Temo Huitron, Status: Pen, Time: 9:00 AM NPV, Provider: Temo Huitron, Status: Pen, Time: 9:00 AM [facility] Work Phone: Start: 09-02-2021 NPV, Provider: Florina Segovia, Status: Pen, Time: 10:40 AM NPV, Provider: Florina Segovia, Status: Pen, Time: 10:40 AM PW-Ymytlpzgs-Bmndk 204 Work Phone: Start: 08-05-2021 NPV, Provider: Florina Segovia, Status: Pen, Time: 10:20 AM NPV, Provider: Florina Segovia, Status: Meng, Time: 10:20 AM [facility] Work Phone: Start: 06-16-2021 Influenza vaccination INFLUENZA (#1) [facility] Start: 06-01-2021 SERUM CREATININE SERUM CREATININE Cl [facility] Start: 11-27-2020 Urine microalbumin profile DTAP,TDAP,TD (3 - Td or Tdap) [facility] Start: 10-13-2020 Sleep std airflow hr t rate&o2 sat effort unatt Home Sleep Apnea Test LD-Ycjxschhp-Qogjq 204 Work Phone: Start: 04-28-2020 Hemoglobin A1c/Hemoglobin.total in Blood HBA1C [facility] Start: 02-28-2020 Hepatitis C antibody , confirmatory test DILATED RETINAL EXAM [facility] Start: 07-03-2019 Adult depression screening assessment DEPRESSION SCREENING [facility] Start: 01-25-2019 ANNUAL PCP TEAM CHRONIC DISEASE VISIT ANNUAL PCP TEAM CHRONIC DISEASE VISIT [facility] Start: 12-07-2018 Hepatitis B screening URINE ALBUMIN:CREATININE RATIO [facility] Start: 09-22-2018 Hepatitis B surface antibody level LDL CHOLESTEROL [facility] Start: 06-01-2018 HEMOGLOBIN/HEMATOCRIT HEMOGLOBIN/HEM ATOCRIT [facility] Start: 08-24-2017 End: 08-24-2017 Appointment Appointment [facility] Work Phone: Start: 2001 Hepatitis B Vaccine (1 of 3 - Risk 3-dose series) Hepatitis B Vaccine (1 of 3 - Risk 3-dose series) [facility] Start: 2001 RSV Vaccine (1 - 1-dose 60+ series) RSV Vaccine (1 - 1-dose 60+ series) [facility] Start: 1991 SHINGRIX VACCINE (1 of 2) SHINGRIX VACCINE (1 of 2) [facility] Start: 1986 Screening for malignant neoplasm of colon COLORECTAL CANCER SCREENING DISCUSSION [facility] Start: 1959 BP CONTROLLED (<130/80) BP CONTROLLED (<130/80) [facility] Start: 1951 3 comp foot exam completed DIABETIC FOOT EXAM [facility] Start: 06-08-1942 COVID-19 VACCINE (#1) COVID-19 VACCI NE (#1) [facility] NEGATED: Highlighted row has been ruled out! Planned Goals not documented DN-Gggvyvmfs-Unwpm 204 Work Phone: Immunizations Immunization Date Immunization Notes Care Provider Beto hansenadam 07-14-2022 Pfizer COVID-19 Vac Bivalent 30 MCG/0.3ML Intramuscular Suspension Monserrat E Miedel Work Phone: [facility] 230 Work Phone: 07-05-2022 Fluad Quadrivalent 0 .5 ML Intramuscular Prefilled Syringe Monserrat E Miedel Work Phone: [facility] 2300 Work Phone: 07-05-2022 influenza virus vacc ine, unspecified formulation Justino Rader MD Work Phone: [facility] 03-07-2022 Comirnaty 30 MCG/0.3 ML Intramuscular Suspension Monserrat E Miedel Work Phone: [facility] 204 Work Phone: 08-17-2021 zoster vaccine recombinant Monserrat E Miedel Work Phone: [facility] A2470 DO Work Phone: 07-15-2021 Pfizer-BioNTech COVI D-19 Vacc 30 MCG/0.3ML Intramuscular Suspension Monserrat E Miedel Work Phone: [facility] 400 DO Work Phone: Payers Date Payer Category Payer Medicare [employer] MEDICARE A ETNA MEDICARE PPO [id number] 2021-Present [phone] [address] [place] [address] O [id number] 2021 Medicare AETNA MEDICARE A ETNA MEDICARE PPO [id number] 2021-Present [phone] [address] [place] [address] PPO [id number] 2017 Private Health Insurance 2013 Medicare [id number] 2013 Private Health Insurance [id number] 1941 Unknown [id number] 68 1941 Unknown [id number] 51 1941 Unknown [id number] 51 1941 Unknown [id number] 56 1941 Unknown [id number] 56 1941 Unknown [id number] 56 1941 Unknown [id number] 56 1941 Unknown [id number] 56 1941 Unknown [id number] 94 1941 Unknown [id number] 94 Medicare [id number] Unknown Social History Date Type Detail Facility Start: 08-10-2020 End: 09-20-2020 Never a smoker Never a smoker [facility] Medical Equipment Procedure Code Equipment Code Equipment Origin al Text Equipment Identifier Dates Generator Implan table Pulse - [id number] Start: 12-02-2016 Lead [place] y Stimulation - [id number] Start: 12-02-2016 Lead Respiratory Sensing - [id number] Start: 12-02-2016 Start: 11-23-2018 Functional Status Date Assessment Result Facility NEGATED: Highlighted row Functional performance Functional status health issues are not documented Disease [id number] 204 Work Phone: Mental Status Date Assessment Result Facility NEGATED: Highlighted row Cognitive function [Interpretation] Cognitive status health issues are not documented Disease [id number]-Ailxn 204 Work Phone: Clinical Notes 12-17-2014 to 10-04-2023 Telephone Encounter - Dayanara Mandujano RN - 09/13/2023 10:15 AM Smith Salazar MD - 06/08/2023 12:21 PM EDTPatient Urszula Baires LPN - 06/08/2023 12:09 PM EDT Note Date & Type Note Facility 10-04-2023 Note HNO ID: [id number] Author: Clair Asher RT(R) Service: ? Author Type: Car Blocker Type: Progress Notes Filed: 10/04/2023 2:22 PM Note Text: Radiology Service Progress Note PATIENT NAME: Temo Garrison DATE OF SERVICE: October 04, 2023 TIME: 2:15 PM PATIENT IDENTITY VERIFICATION COMPLETED USING TWO (2) IDENTIFIERS: Name and Date of confirmed by patient verbally. FALL SCREENING: Has the patient had 2 falls in the last year or 1 fall with injury or currently using an Ambulatory Assistive Device (Walker, Cane, Wheelchair, Crutches, etc.)? No PATIENT GENDER DATA: Male PATIENT RELEVANT IMPLANT DATA REVIEWED: Yes RADIOLOGY DEPARTMENT: General X-ray: Exam(s) Completed: Chest X-Ray PERIPHERAL IV DATA: Not applicable SIGNED BY: RT Crystal(R) October 04, 2023 2:15 PM [facility] 10-04-2023 Note HNO ID: [id number] Author: James Hurtado PA Service: ? Author Type: Physician Commercial Real Estate Agent Type: Progress Notes Filed: 10/04/2023 3:04 PM Note Text: This note was created using NoteWriter. Subjective Temo Garrison is a 82 year old male. HPI 82-year-old male presents for cough x 3 days. Patient states he started getting productive cough 3 days ago. He is coughing up yellow mucus. No chest pain or shortness of breath. No history of COPD or asthma. Prior smoker. Denies any nasal congestion. States he always has a runny nose. States he has had chills and a low-grade fever. No vomiting or diarrhea. No sick contacts that he is aware of. PAST MEDICAL HISTORY Diagnosis Date BPH (benign prostatic hyperplasia) previously seeing Dr. Berry Chronic kidney disease, stage 3 (FORM[facility]LY [facility]) Seeing Dr. Moss DDD (degenerative disc disease), cervical DDD (degenerative disc disease), lumbar Seeing Dr. Thayer Diarrhea Diverticulosis of colon (without mention of hemorrhage) DVT (deep venous thrombosis) ([facility]) 08/06/2020 Essential tremor External hemorrhoids without mention of complication Fibromyalgia Hernia of other specified sites of abdominal cavity without mention of obstruction or gangrene Umbilical and Left Inguinal History of basal cell carcinoma of skin 04/2018 right medial chest Hyperlipidemia Hypertension Impotence Internal hemorrhoids without mention of complication Obstructive sleep apnea Seeing Dr. Menon Osteoarthrosis, unspecified whether generalized or localized, other specified sites Osteoarthritis-R wrist Raynaud disease Rheumatic fever Shingles Subclinical hypothyroidism Type 2 diabetes mellitus without complication, without long-term current use of insulin ([facility]) 06/07/[address] Owens Uveitis 2008 right eye PAST SURGICAL HISTORY Procedure Laterality Date ARTHRP KNE CONDYLEANDPLATU MEDIALANDLAT COMPARTMENTS Right 09/01/2014 CATARACT EXTRACTION HX Bilateral COLONOSCOPY FLX DX W/COLLJ SPEC WHEN PFRMD 08/23/2006 COLONOSCOPY FLX DX W/COLLJ SPEC WHEN PFRMD 11/23/2016 Colonoscopy COLONOSCOPY FLX DX W/COLLJ SPEC WHEN PFRMD 08/10/2020 Colonoscopy EGD W/O BRSH SPEC VARICIES INJ 12/13/2021 repeat in 2 years ENDOS SUBMUCUS RESECT TURBINATES 04/21/2014 ESOPHAGOGASTRODUODENOSCOPY TRANSORAL DIAGNOSTIC 08/10/2020 EGD HYPOGLOSSAL NERVE STIM IMPLANT - INSPIRE 2017 PAST SURGICAL HISTORY OF Left 1994 Knee Surgery PAST SURGICAL HISTORY OF 08/25/2008 laser prostate turp RPR 1ST INGUN HRNA AGE 5 YRS/> REDUCIBLE 09/21/2001 Hernia repair, inguinal RPR UMBILICAL HERNIA < 5 YRS REDUCIBLE 09/21/2001 Hernia repair, umbilical SEPTOPLASTY/SUBMUCOUS RESECJ W/WO CARTILAGE GRF 1979,1989 SIGMOIDOSCOPY FLX DX W/COLLJ SPEC BR/WA IF PFRMD 12/2000 Sigmoidoscopy ALLERGIES Flomax [Tamsulosin], Celecoxib, Meloxicam, Mirapex [Pramipexole], Uroxatral [Alfuzosin Hcl], Zetia [Ezetimibe], and Zocor [Simvastatin] MEDICATIONS omeprazole (PRILOSEC) 40 mg capsule Take 1 capsule by mouth once daily. verapamil SR (CALAN SR) 120 mg CR tablet Take 120 mg by mouth every morning. gabapentin (NEURONTIN) 300 mg capsule TAKE 1 CAP ON DAY 1. THEN TAKE 1 CAP TWICE A DAY ON DAY 2 AND MOVING FORWARD. DULoxetine (CYMBALTA) 60 mg capsule Take 60 mg by mouth twice daily. GUAIFENESIN ORAL Take 600 mg by mouth twice daily. lancets (Chomp LANCETS) 30 gauge misc Use as directed to test glucose 3 times weekly. DX: E11.9 dupilumab (DUPIXENT SUBCUTANEOUS) Inject subcutaneously as needed (taking every three weeks). 08/17/2021 reported taking every 3 weeks cyanocobalamin, vitamin B-12, (VITAMIN B-12 INJECTION) by INJECTION(UNSPECIFIED PARENTERAL ROUTES) route once every month. blood sugar diagnostic (PRNMS INVESTMENTS VERIO) test strip USE ONE STRIP TO CHECK GLUCOSE ONCE DAILY losartan (COZAAR) 25 mg tablet TAKE 1 TABLET DAILY ketoconazole (NIZORAL) 2 % shampoo Apply 1 application to affected area once daily as needed. atorvastatin (LIPITOR) 20 mg tablet Take 1 tablet by mouth once daily. Blood-Glucose Meter (PRNMS INVESTMENTS VERIO SYSTEM) misc Use as directed. Cholecalciferol, Vitamin D3, 2,000 unit ORAL Cap Take 2,000 Units by mouth. ascorbic acid(VITAMIN C 500 MG TAB) Take one (1) tablet twice daily. FAMILY HISTORY Problem Relation Age of Onset Diabetes Father other (down'ssyndrome) Brother Hypertension Mother other (Other) Mother Acute Renal Failure/AAA other (Aortic aneurysm) Mother Ischemic Heart Disease Brother 58 [place] Alcohol/Drug Brother Breast Cancer Sister Diabetes Maternal Grandmother Rheumatologic disease Maternal Grandfather Anesthesia Problems No Family History Social History Tobacco Use Smoking status: Former Packs/day: 0.50 Years: 20.00 Additional pack years: 0.00 Total pack years: 10.00 Types: Cigarettes Quit date: 10/16/1975 Years since quittin.0 Smokeless tobacco: Never Tobacco comments: QUIT 1975 Vapi (more content not included)... [facility] 09-13-2023 Miscellaneous Notes Physician: Dr. Villavicencio Call from patient requesting refill. Please E-Scribe 30-day supply. Last OV: 06/08/[address] Villavicencio Future OV: None Scheduled Requested Prescriptions Pending Prescriptions Disp Refills omeprazole (PRILOSEC) 40 mg capsule 30 capsule 0 Sig: Take 1 capsule by mouth once daily. Pharmacy Name: [facility] Phone #: Dayanara Mandujano RN documented in this encounter [facility] 06-08-2023 Note HNO ID: [id number] Author: Smith Villavicencio MD Service: ? Author Type: Physician Type: Progress Notes Filed: 06/08/2023 12:24 PM Note Text: FOLLOW UP VISIT - HEMORRHOID BANDING NAME: Temo Rajput [facility] NO.: [id number] DATE OF SERVICE: 06/08/2023 : 1940 REFERRING PHYSICIAN: Malick Christie MD, Temo is a patient I am following for symptomatic internal hemorrhoids. The patient returns for hemorrhoidal banding. They have not take aspirin or other blood thinners for over 7 days. VITALS: There were no vitals taken for this visit. There is no height or weight on file to calculate BMI. On examination, the patient has prolapsing interal hemorrhoidal at the left lateral position. PROCEDURE: HEMORRHOIDAL BANDING The risks, benefits and anticipated outcomes of the procedure, the risks and benefits of the alternatives to the procedure, and the roles and tasks of the personnel to be involved, were discussed with the patient, and the patient consents to the procedure and agrees to proceed. After consent was obtained and the site, person, and procedure verified, the patient was positioned. A digital rectal exam was performed demonstrating internal hemorrhoids in the left lateral position without other abnormalities. An anoscope was introduced demonstrating symptomatic internal hemorrhoid. The hemorrhoidal complex was grasped with an forceps without causing discomfort to the patient. A single band was deployed over the complex. The patient remained asymptomatic. The anoscope was removed. The patient tolerated the procedure well. Assessment IMPRESSION: Status post left lateral interal hemorrhoidal banding PLAN: If the patient notes any problems or pain, they should contact me immediately. The patient was informed that- A small amount of bleeding is common when the hemorrhoid sloughs at 3-5 days. Do not that aspirin for the next week. If you have significant bleeding or other problems, contact our office. Diagnoses: (K62.5) Bright red blood per rectum (primary encounter diagnosis) (K64.8) Hemorrhoids, internal Return to Clinic: The patient is instructed to follow-up with me in 1 month if persistent bleeding. Smith Villavicencio MD [facility] 06-08-2023 History of Present illness Narrative FOLLOW UP VISIT - HEMORRHOID BANDING NAME: Temo Garrison [facility] NO.: [id number] DATE OF SERVICE: 06/08/2023 : 1940 REFERRING PHYSICIAN: Malick Christie MD, Temo is a patient I am following for symptomatic internal hemorrhoids. The patient returns for hemorrhoidal banding. They have not take aspirin or other blood thinners for over 7 days. VITALS: There were no vitals taken for this visit. There is no height or weight on file to calculate BMI. On examination, the patient has prolapsing interal hemorrhoidal at the left lateral position. PROCEDURE: HEMORRHOIDAL BANDING The risks, benefits and anticipated outcomes of the procedure, the risks and benefits of the alternatives to the procedure, and the roles and tasks of the personnel to be involved, were discussed with the patient, and the patient consents to the procedure and agrees to proceed. After consent was obtained and the site, person, and procedure verified, the patient was positioned. A digital rectal exam was performed demonstrating internal hemorrhoids in the left lateral position without other abnormalities. An anoscope was introduced demonstrating symptomatic internal hemorrhoid. The hemorrhoidal complex was grasped with an forceps without causing discomfort to the patient. A single band was deployed over the complex. The patient remained asymptomatic. The anoscope was removed. The patient tolerated the procedure well. Assessment IMPRESSION: Status post left lateral interal hemorrhoidal banding PLAN: If the patient notes any problems or pain, they should contact me immediately. The patient was informed that- A small amount of bleeding is common when the hemorrhoid sloughs at 3-5 days. Do not that aspirin for the next week. If you have significant bleeding or other problems, contact our office. Diagnoses: (K62.5) Bright red blood per rectum (primary encounter diagnosis) (K64.8) Hemorrhoids, internal Return to Clinic: The patient is instructed to follow-up with me in 1 month if persistent bleeding. Smith Villavicencio MD documented in this encounter [facility] 06-08-2023 Instructions Urszula Quinn LPN - 06/08/2023 12:10 PM EDT Instructions After HEMORRHODIAL BANDING If you note worsening anal pain, fever or significant anal redness or swellingcontact the office immediately. Minor bleeding from the anus is common. If there is continued bleeding, you should contact our office immediately. The banded hemorrhoidal complex will slough off in 4-5 days on average. Bleeding or some tissue with a black rubber band may be seen in the toilet bowl. You may require multiple bandings to correct your internal hemorrhoidal symptoms. Please make an appointment to return to our office in 3-4 weeks for possible repeat banding if your symptoms have not resolved. If you have any questions or concerns please feel free to call our office at [phone] and ask to be transferred to General Surgery. Thank you for choosing [facility] - General Surgery. documented in this encounter [facility] 06-08-2023 Nurse Note UNIVERSAL PROTOCOL / SAFETY CHECKLIST Procedure to be Performed: Anoscopy and hemorrhoidal banding Sign In: A Moment of CARE was completed. Personnel directly involved with the procedure wore the appropriate PPE (Personal Protective Equipment). No special equipment needed. Patient/Surrogate Stated/Verified: PATIENT VERIFIED(optional for EMERGENT procedures): Patient name, Date of , Relevant allergies, and The intended procedure Time Out Communication: Intended patient and procedure match the source documents. Consent documented and matches the intended procedure. Relevant labs, photos, and/or imaging studies have been reviewed. Correct side/site marked and visible. No medications required for procedure. No fire risk assessment and interventions applicable. No implant(s) inserted. Sign Out: SIGN OUT (optional for EMERGENT procedures): No specimen collected. No instruments, equipment or retained foreign bodies applicable. Post-procedure follow-up management communicated and Plan of Care Visit completed when applicable. Urszula Quinn LPN documented in this encounter [facility] 05-30-2023 History of Present illness Narrative Chief Complaint Chief Complaint Patient presents with Pain History of present pain condition Referral comments: Other chronic pain [G89.29] Referral associated diagnosis: Other chronic pain [G89.29] Pain location Distributed Onset Our patient presents a 55 year history of distributed pain, which was identified as fibromyalgia around 1983. Course From SEP 2022 into APR 2023 his pain was unexpectedly increased, but these past few weeks [COINCIDENT WITH REINTRODUCTION OF GABAPENTIN, 300 MG 2/DAY] his pain has decreased. 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 Quality Throbbing; sharp needle attached to electric wires at trigger points Alleviating factors Best so far has been medicinal cannabis Exacerbating factors Nothing identified Severity cyclic throughout days and weeks; worse between midnitght and 6 AM Radiation location No Dermatomal radicular characteristics No Myofascial characteristics Yes Neuropathic characteristics Of fibromyalgia characteristics Edema No Spinal instability symptoms No Treatments/evaluations to date Imaging Not contributory for condition of interest EMG No Physical therapy/ocular care aide Yes Occupational therapy No Acupuncture Yes, w/o improvement TENS Remote past Medications (listed below) Controlled substances: MEDICINAL CANNABIS; recent trial GABAPENTIN 300 mg 2/day April 2023 Injections/ procedures Temporarily of benefit, for example the RIGHT rhomboid area Surgeries No; he wonders if a spinal cord stimulator or intrathecal drug delivery pump would be appropriate for his condition DME No Medications Outpatient Medications Prior to Visit Medication Sig Dispense Refill Ascorbic Acid (Vitamin C CR) 1000 MG Tab CR Take 500 mg by mouth daily. Pt takes 4 tablets a day. 1000 mg in the morning and 1000 at night. Ascorbic Acid (Vitamin C) 500 MG capsule Take 1 capsule by mouth 2 times daily. atorvastatin 20 MG tablet Take 1 tablet by mouth daily. Atorvastatin 20 MG tablet 1 tablet Orally Once a day baclofen 10 MG tablet Take 1 tablet by mouth 2 times daily. Celecoxib 200 MG capsule Take 1 capsule by mouth daily. Cholecalciferol 50 MCG (2000 UT) capsule Take 1,000 Units by mouth 2 times daily. cyanocobalamin 1000 MCG tablet injection once a month diphenhydrAMINE 25 MG capsule 1 capsule at bedtime as needed Orally Once a day for 30 day(s) DULoxetine [address] Particles capsule DR Dupilumab (DUPIXENT SC) Inject under the skin every 14 days. Folic acid 1 MG tablet Take 1 tablet by mouth 2 times daily. Gabapentin 300 MG capsule TAKE 1 CAP ON DAY 1. THEN TAKE 1 CAP TWICE A DAY ON DAY 2 AND MOVING FORWARD. guaiFENesin (Mucinex) 600 MG Tab SR 12 HR tablet SR Take 2 tablets by mouth daily. Ketoconazole 2 % Shampoo shampoo Levothyroxine 50 MCG tablet TAKE 1 TABLET BY MOUTH EVERY MORNING, TAKE 30 MINUTES PRIOR TO FOOD, AND OTHER MEDICATIONS losartan 25 MG tablet Take 1 tablet by mouth daily. Losartan 50 MG tablet Take 0.5 tablets by mouth daily. omeprazole [address] capsule 1 capsule daily. Valacyclovir 1 g tablet PLEASE SEE ATTACHED FOR DETAILED DIRECTIONS verapamil 120 MG tablet Vitamin D3 25 MCG (1000 UT) tablet Take 1 tablet by mouth daily. acyclovir 200 MG capsule Take 200 mg by mouth daily. Cyanocobalamin (B-12 IJ) Inject as directed every 30 days. Eliquis 5 MG tablet Take 5 mg by mouth 2 times daily. nortriptyline 10 MG capsule Take 10 mg by mouth daily. SITagliptin (Januvia) 50 MG tablet Take 50 mg by mouth daily. No facility-administered medications prior to visit. Past medical history Past Medical History: Diagnosis Date Arthritis Diabetes mellitus Fibromyalgia Raynaud disease Renal disease Past surgical history Past Surgical History: Procedure Laterality Date HERNIA REPAIR KNEE REPLACEMENT Right PROSTATECTOMY REMOVAL CATARACT (PEM) Left REMOVAL CATARACT (PEM) Right Social history Social History Socioeconomic History Marital status: Spouse name: Not on file Number of children: Not on file Years of education: Not on file Highest education level: Not on file Occupational History Not on file Tobacco Use Smoking status: Some Days Types: Cigars Smokeless tobacco: Never Tobacco comments: occas Vaping Use Vaping Use: Never used Substance and Sexual Activity Alcohol use: Yes Comment: states everyday. Drug use: Never Sexual activity: Not on file Other Topics Concern Not on file Social History Narrative Not on file Social Determinants of Health Financial Resource Strain: Not on file Food Insecurity: Not on file Transportation Needs: Not on file Physical Activity: Not on file Stress: Not on file Social Connections: Not on file Intimate Partner Violence: Not on file Housing Stability: Not on file Review of Systems Current General: Skin: HEENT: Eyes: Cardiovascular: Recently developed syncopal spells, under medical investigation Respiratory: Gastrointestinal: Kidney/Bladder: Musculoskeletal: Neurological: Psychiatric: Allergy: Blood and Immune: Endocrine: Physical findings Constitutional: Alert and oriented. Well developed, without distress. Vital signs: Pulse 62 Temp 96.9 F (36.1 C) Ht 1.727 m (5' 8 ) Wt 80.7 kg (178 lb) SpO2 97% BMI 27.06 kg/m Smoking Status Some Days Myofas: Tenderness RHOMBOIDS, DELTOID, TRAPEZIUS, TRICEPS, LESS THE DORSAL FOREARM EXTENSORS. Psychiatric: Mood, memory, affect and judgment normal. Impression ICD-10-CM 1. Other chronic pain G89.29 Discussion and Plan I think GABAPENTIN has been helpful this past month for reduction of his fibromyalgia pain. If side effects are tolerated and if his improvement doesn't persist, increasing the dose would be realistic. AMITRIPTYLINE at very low dose, 10 mg/night, could be added, with attention to risk of of orthostasis (and hs already has had unexplained syncopal spells). TENS unit and use of a Theracane (we found on online today) he also might try. Spinal cord stimulator or pump implantation is not indicated for his condition. Requested Prescriptions No prescriptions requested or ordered in this encounter No orders of the defined types were placed in this encounter. Follow-up He'll return to his established physicians. Attestation I personally provided all evaluation and management services today. A trainee was not involved in this encounter. I spent 39 minutes, from 1:14 through 1:53, to prepare for, physically provide, and document the medical service as described above and greater than 50% of this time was devoted to counseling and coordination of care. documented in this encounter [facility] 05-30-2023 Instructions Justino Rader MD - 05/30/2023 1:00 PM EDT The device we talked about is called a Theracane. documented in this encounter [facility] 05-18-2023 Note HNO ID: [id number] Author: Belén Bernal PA-C Service: ? Author Type: Physician Commercial Real Estate Agent Type: Progress Notes Filed: 05/29/2023 7:56 AM Note Text: HISTORY AND PHYSICAL Temo Garrison 1940 REFERRING PHYSICIAN: Monserrat Wilson MD CHIEF COMPLAINT: Consult (colonoscopy) HPI: The patient is a 82 year old male referred for endoscopy. Temo notes two recent episodes of rectal bleeding. Describes this as painless, bright red, noticed it on toilet paper with wiping and in bowl. Notes history of hemorrhoids and will sometimes have trouble keeping himself clean after bowel movements. Has tried increasing fiber in diet. Has had positive fecal occult blood testing done through primary care. Patient denies any change in bowel habits, weight changes, black tarry stools or abdominal pain. Denies family history of colon issues. The patient notes no upper GI complaints. Has history of short-segment Small's without dysplasia, last EGD in 2021. Temo has undergone prior endoscopy. Last colonoscopy 08/10/[address] Villavicencio without concerning findings at that time. Patient's medical history is significant for hypertension, hyperlipidemia, type II diabetes mellitus, DVT, hypothyroidism. Patient follows with Dr. Christie in primary care for his chronic medical issues. PAST MEDICAL HISTORY Diagnosis Date BPH (benign prostatic hyperplasia) previously seeing Dr. Berry Chronic kidney disease, stage 3 ([facility]) Seeing Dr. Moss DDD (degenerative disc disease), cervical DDD (degenerative disc disease), lumbar Seeing Dr. Thayer Diarrhea Diverticulosis of colon (without mention of hemorrhage) DVT (deep venous thrombosis) ([facility]) 08/06/2020 Essential tremor External hemorrhoids without mention of complication Fibromyalgia Hernia of other specified sites of abdominal cavity without mention of obstruction or gangrene Umbilical and Left Inguinal History of basal cell carcinoma of skin 04/2018 right medial chest Hyperlipidemia Hypertension Impotence Internal hemorrhoids without mention of complication Obstructive sleep apnea Seeing Dr. Menon Osteoarthrosis, unspecified whether generalized or localized, other specified sites Osteoarthritis-R wrist Raynaud disease Rheumatic fever Shingles Subclinical hypothyroidism Type 2 diabetes mellitus without complication, without long-term current use of insulin ([facility]) 06/07/[address] Owens Uveitis 2008 right eye PAST SURGICAL HISTORY Procedure Laterality Date ARTHRP KNE CONDYLEANDPLATU MEDIALANDLAT COMPARTMENTS Right 09/01/2014 CATARACT EXTRACTION HX Bilateral COLONOSCOPY FLX DX W/COLLJ SPEC WHEN PFRMD 08/23/2006 COLONOSCOPY FLX DX W/COLLJ SPEC WHEN PFRMD 11/23/2016 Colonoscopy COLONOSCOPY FLX DX W/COLLJ SPEC WHEN PFRMD 08/10/2020 Colonoscopy EGD W/O [facility] SPEC VARICIES INJ 12/13/2021 repeat in 2 years ENDOS SUBMUCUS RESECT TURBINATES 04/21/2014 ESOPHAGOGASTRODUODENOSCOPY TRANSORAL DIAGNOSTIC 08/10/2020 EGD HYPOGLOSSAL NERVE STIM IMPLANT - INSPIRE 2016 PAST SURGICAL HISTORY OF Left 1994 Knee Surgery PAST SURGICAL HISTORY OF 08/25/2008 laser prostate turp RPR 1ST INGUN HRNA AGE 5 YRS/> REDUCIBLE 09/21/2001 Hernia repair, inguinal RPR UMBILICAL HERNIA < 5 YRS REDUCIBLE 09/21/2001 Hernia repair, umbilical SEPTOPLASTY/SUBMUCOUS RESECJ W/WO CARTILAGE GRF 1979,1989 SIGMOIDOSCOPY FLX DX W/COLLJ SPEC BR/WA IF PFRMD 12/2000 Sigmoidoscopy Current Outpatient Medications Medication Sig verapamil SR (CALAN SR) 120 mg CR tablet Take 120 mg by mouth every morning. gabapentin (NEURONTIN) 300 mg capsule TAKE 1 CAP ON DAY 1. THEN TAKE 1 CAP TWICE A DAY ON DAY 2 AND MOVING FORWARD. omeprazole (PRILOSEC) 40 mg capsule TAKE 1 CAPSULE DAILY DULoxetine (CYMBALTA) 60 mg capsule Take 60 mg by mouth twice daily. GUAIFENESIN ORAL Take 600 mg by mouth twice daily. lancets (PRNMS INVESTMENTS DELICA LANCETS) 30 gauge misc Use as directed to test glucose 3 times weekly. DX: E11.9 dupilumab (DUPIXENT SUBCUTANEOUS) Inject subcutaneously as needed (taking every three weeks). 08/17/2021 reported taking every 3 weeks cyanocobalamin, vitamin B-12, (VITAMIN B-12 INJECTION) by INJECTION(UNSPECIFIED PARENTERAL ROUTES) route once every month. blood sugar diagnostic ([place]) test strip USE ONE STRIP TO CHECK GLUCOSE ONCE DAILY losartan (COZAAR) 25 mg tablet TAKE 1 TABLET DAILY ketoconazole (NIZORAL) 2 % shampoo Apply 1 application to affected area once daily as needed. atorvastatin (LIPITOR) 20 mg tablet Take 1 tablet by mouth once daily. Blood-Glucose Meter (PRNMS INVESTMENTS VERIO SYSTEM) [facility] Use as directed. Cholecalciferol, Vitamin D3, 2,000 unit ORAL Cap Take 2,000 Units by mouth. ascorbic acid(VITAMIN C 500 MG TAB) Take one (1) tablet twice daily. No current facility-administered medications for this visit. ALLERGIES: Flomax [Tamsulosin], Celecoxib, Meloxicam, Mirapex [Pramipexole], Uroxatral [Alfuzosin H (more content not included)... [facility] 05-18-2023 Nurse Note REVIEW OF SYSTEMS: General: The patient denies fatigue, denies weight loss, denies weight gain, denies feeling hot, and denies feelings of cold. Eyes: The patient denies glaucoma, NOTES eye injury/surgery, wears glasses or contacts. Ear/Nose/Throat: The patient NOTES allergies, denies hayfever, denies ear infections, and denies bloody noses. Cardiovascular: The patient denies chest pain, denies heart disease, NOTES high blood pressure,denies cardiac stent, denies prior heart attack, denies irregular heart beat, NOTES high cholesterol, denies poor circulation, denies heart failure, other cardiac issues, denies claudication, denies cold feet, denies peripheral arterial stent. Respiratory: The patient denies tuberculosis, denies pneumonia, denies frequent cough, denies pulmonary embolism, denies shortness of breath, and denies coughing up blood. Gastrointestinal: The patient denies difficulty swallowing, NOTES acid reflux, denies ulcers, denies vomiting, denies jaundice/hepatitis, denies gallbladder problems, denies black or tarry stools, NOTES hemorrhoids, NOTES bleeding from rectum, denies diverticulitis, denies constipation, denies diarrhea, denies loss of stool control, and denies hernias. Kidney/Bladder: The patient denies kidney stones, NOTES stager 3 kidney disease, and denies bloody urine. Skin: The patient denies a history of skin cancer, denies bleeding/changing moles, and denies a history of skin rash. Neurologic: The patient denies a history of epilepsy/convulsions, denies headaches, denies head/spinal injuries, and denies stroke/TIA. Psychiatric: The patient denies psychiatric medications, denies depression, and denies voices, denies substance abuse. Endocrine: The patient denies thyroid disorders, NOTES diabetes, and denies hormonal problems. Hematologic: The patient denies a history of bruising, denies bleeding, and denies anemia, NOTES blood clots. Infections: The patient denies a history of measles and mumps, denies rheumatic fever, and denies sexually transmitted diseases. Musculoskeletal: The patient NOTES back pain/injury, NOTES back problems, NOTES sciatica, NOTES knee/foot trouble, NOTES arthritis, or denies gout. When was patient's last Mammogram screening? N/A Last Colonoscopy: 07/2020 Jena Webb RN documented in this encounter [facility] 05-18-2023 History of Present illness Narrative HISTORY AND PHYSICAL Temo Garrison 1940 REFERRING PHYSICIAN: Monserrat Wilson MD CHIEF COMPLAINT: Consult (colonoscopy) HPI: The patient is a 82 year old male referred for endoscopy. Temo notes two recent episodes of rectal bleeding. Describes this as painless, bright red, noticed it on toilet paper with wiping and in bowl. Notes history of hemorrhoids and will sometimes have trouble keeping himself clean after bowel movements. Has tried increasing fiber in diet. Has had positive fecal occult blood testing done through primary care. Patient denies any change in bowel habits, weight changes, black tarry stools or abdominal pain. Denies family history of colon issues. The patient notes no upper GI complaints. Has history of short-segment Small's without dysplasia, last EGD in 2021. Temo has undergone prior endoscopy. Last colonoscopy 08/10/[address] Villavicencio without concerning findings at that time. Patient's medical history is significant for hypertension, hyperlipidemia, type II diabetes mellitus, DVT, hypothyroidism. Patient follows with Dr. Christie in primary care for his chronic medical issues. PAST MEDICAL HISTORY Diagnosis Date BPH (benign prostatic hyperplasia) previously seeing Dr. Berry Chronic kidney disease, stage 3 ([facility]) Seeing Dr. Moss DDD (degenerative disc disease), cervical DDD (degenerative disc disease), lumbar Seeing Dr. Thayer Diarrhea Diverticulosis of colon (without mention of hemorrhage) DVT (deep venous thrombosis) ([facility]) 08/06/2020 Essential tremor External hemorrhoids without mention of complication Fibromyalgia Hernia of other specified sites of abdominal cavity without mention of obstruction or gangrene Umbilical and Left Inguinal History of basal cell carcinoma of skin 04/2018 right medial chest Hyperlipidemia Hypertension Impotence Internal hemorrhoids without mention of complication Obstructive sleep apnea Seeing Dr. Menon Osteoarthrosis, unspecified whether generalized or localized, other specified sites Osteoarthritis-R wrist Raynaud disease Rheumatic fever Shingles Subclinical hypothyroidism Type 2 diabetes mellitus without complication, without long-term current use of insulin ([facility]) 06/07/[address] Owens Uveitis 2008 right eye PAST SURGICAL HISTORY Procedure Laterality Date ARTHRP KNE CONDYLE&PLATU MEDIAL&LAT COMPARTMENTS Right 09/01/2014 CATARACT EXTRACTION HX Bilateral COLONOSCOPY FLX DX W/COLLJ SPEC WHEN PFRMD 08/23/2006 COLONOSCOPY FLX DX W/COLLJ SPEC WHEN PFRMD 11/23/2016 Colonoscopy COLONOSCOPY FLX DX W/COLLJ SPEC WHEN PFRMD 08/10/2020 Colonoscopy EGD W/O BRSH SPEC VARICIES INJ 12/13/2021 repeat in 2 years ENDOS SUBMUCUS RESECT TURBINATES 04/21/2014 ESOPHAGOGASTRODUODENOSCOPY TRANSORAL DIAGNOSTIC 08/10/2020 EGD HYPOGLOSSAL NERVE STIM IMPLANT - INSPIRE 2017 PAST SURGICAL HISTORY OF Left 1994 Knee Surgery PAST SURGICAL HISTORY OF 08/25/2008 laser prostate turp RPR 1ST INGUN HRNA AGE 5 YRS/> REDUCIBLE 09/21/2001 Hernia repair, inguinal RPR UMBILICAL HERNIA < 5 YRS REDUCIBLE 09/21/2001 Hernia repair, umbilical SEPTOPLASTY/SUBMUCOUS RESECJ W/WO CARTILAGE GRF 1979,1989 SIGMOIDOSCOPY FLX DX W/COLLJ SPEC BR/WA IF PFRMD 12/2000 Sigmoidoscopy Current Outpatient Medications Medication Sig verapamil SR (CALAN SR) 120 mg CR tablet Take 120 mg by mouth every morning. gabapentin (NEURONTIN) 300 mg capsule TAKE 1 CAP ON DAY 1. THEN TAKE 1 CAP TWICE A DAY ON DAY 2 AND MOVING FORWARD. omeprazole (PRILOSEC) 40 mg capsule TAKE 1 CAPSULE DAILY DULoxetine (CYMBALTA) 60 mg capsule Take 60 mg by mouth twice daily. GUAIFENESIN ORAL Take 600 mg by mouth twice daily. lancets (Chomp LANCETS) 30 gauge misc Use as directed to test glucose 3 times weekly. DX: E11.9 dupilumab (DUPIXENT SUBCUTANEOUS) Inject subcutaneously as needed (taking every three weeks). 08/17/2021 reported taking every 3 weeks cyanocobalamin, vitamin B-12, (VITAMIN B-12 INJECTION) by INJECTION(UNSPECIFIED PARENTERAL ROUTES) route once every month. blood sugar diagnostic (PRNMS INVESTMENTS VERIO) test strip USE ONE STRIP TO CHECK GLUCOSE ONCE DAILY losartan (COZAAR) 25 mg tablet TAKE 1 TABLET DAILY ketoconazole (NIZORAL) 2 % shampoo Apply 1 application to affected area once daily as needed. atorvastatin (LIPITOR) 20 mg tablet Take 1 tablet by mouth once daily. Blood-Glucose Meter (PRNMS INVESTMENTS VERIO SYSTEM) misc Use as directed. Cholecalciferol, Vitamin D3, 2,000 unit ORAL Cap Take 2,000 Units by mouth. ascorbic acid(VITAMIN C 500 MG TAB) Take one (1) tablet twice daily. No current facility-administered medications for this visit. ALLERGIES: Flomax [Tamsulosin], Celecoxib, Meloxicam, Mirapex [Pramipexole], Uroxatral [Alfuzosin Hcl], Zetia [Ezetimibe], and Zocor [Simvastatin] PERSONAL HISTORY: Social History Tobacco Use Smoking status: Former Packs/day: 0.50 Years: 20.00 Total pack years: 10.00 Types: Cigarettes Quit date: 10/16/1975 Years since quittin.6 Smokeless tobacco: Never Tobacco comments: QUIT 1975 Vaping Use Vaping Use: Never used Substance Use Topics Alcohol use: Yes Alcohol/week: 18.2 standard drinks of alcohol Types: 14 Mixed Drinks per week Comment: 2-3 drinks per day Drug use: Yes Types: Marijuana Comment: CBD 3000mg salve FAMILY HISTORY: FAMILY HISTORY Problem Relation Age of Onset Diabetes Father other (down'ssyndrome) Brother Hypertension Mother other (Other) Mother Acute Renal Failure/AAA other (Aortic aneurysm) Mother Ischemic Heart Disease Brother 58 [place] Alcohol/Drug Brother Breast Cancer Sister Diabetes Maternal Grandmother Rheumatologic disease Maternal Grandfather Anesthesia Problems No Family History REVIEW OF SYMPTOMS: The review of systems data was entered by the nurse and reviewed by or Nursing Notes: Jena Webb RN 05/18/2023 3:22 PM Signed REVIEW OF SYSTEMS: General: The patient denies fatigue, denies weight loss, denies weight gain, denies feeling hot, and denies feelings of cold. Eyes: The patient denies glaucoma, NOTES eye injury/surgery, wears glasses or contacts. Ear/Nose/Throat: The patient NOTES allergies, denies hayfever, denies ear infections, and denies bloody noses. Cardiovascular: The patient denies chest pain, denies heart disease, NOTES high blood pressure,denies cardiac stent, denies prior heart attack, denies irregular heart beat, NOTES high cholesterol, denies poor circulation, denies heart failure, other cardiac issues, denies claudication, denies cold feet, denies peripheral arterial stent. Respiratory: The patient denies tuberculosis, denies pneumonia, denies frequent cough, denies pulmonary embolism, denies shortness of breath, and denies coughing up blood. Gastrointestinal: The patient denies difficulty swallowing, NOTES acid reflux, denies ulcers, denies vomiting, denies jaundice/hepatitis, denies gallbladder problems, denies black or tarry stools, NOTES hemorrhoids, NOTES bleeding from rectum, denies diverticulitis, denies constipation, denies diarrhea, denies loss of stool control, and denies hernias. Kidney/Bladder: The patient denies kidney stones, NOTES stager 3 kidney disease, and denies bloody urine. Skin: The patient denies a history of skin cancer, denies bleeding/changing moles, and denies a history of skin rash. Neurologic: The patient denies a history of epilepsy/convulsions, denies headaches, denies head/spinal injuries, and denies stroke/TIA. Psychiatric: The patient denies psychiatric medications, denies depression, and denies voices, denies substance abuse. Endocrine: The patient denies thyroid disorders, NOTES diabetes, and denies hormonal problems. Hematologic: The patient denies a history of bruising, denies bleeding, and denies anemia, NOTES blood clots. Infections: The patient denies a history of measles and mumps, denies rheumatic fever, and denies sexually transmitted diseases. Musculoskeletal: The patient NOTES back pain/injury, NOTES back problems, NOTES sciatica, NOTES knee/foot trouble, NOTES arthritis, or denies gout. When was patient's last Mammogram screening? N/A Last Colonoscopy: 07/2020 Jena Webb RN I have confirmed and edited as necessary, the PFSH and ROS obtained by others. Belén Bernal PA-C PHYSICAL EXAMINATION: General: The patient is 82 year old male, well nourished, well hydrated in no acute distress. The patient is oriented to time, place, and person. VITALS: Blood pressure 136/82, pulse 104, temperature 36.3 C (97.3 F), height 172.7 cm (5' 8 ), weight 81.6 kg (180 lb), SpO2 99 %. Body mass index is 27.37 kg/m . HEENT: Normal cephalic, ataumatic, pupils are equally round, sclera are anicteric, mucous membranes are moist, oropharynx is clear. Neck has no masses, asymmetry or lymphadenopathy. Respiratory: Clear to auscultation and percussion. Normal respiratory excursion and pattern. Cardiac: Examination is regular rate and rhythm. Normal S1/S2 Abdominal exam: Soft, nontender, with no palpable masses. No hepatosplenomegaly. No palpable hernias. Extremities: no clubbing, cyanosis or edema. No adenopathy. LABORATORY VALUES: As Noted RADIOLOGIC STUDIES: As Noted Assessment IMPRESSION: bright red rectal bleeding, history of hemorrhoids PLAN: I have reviewed my findings with the surgeon. Patient was offered repeat colonoscopy. We discussed the risks and benefits of the planned endoscopy. I have informed the patient that complications can occur including failure to complete the endoscopy and perforation. The patient had the opportunity to ask questions concerning the planned endoscopy. My staff has also explained the procedure to the patient in understandable terms and has given the patient printed material concerning the procedure. Patient unsure whether he wishes to pursue colonoscopy at this time. Discussed option for anoscopy and possible hemorrhoidal banding based on findings. Patient is agreeable to this. If anoscopy is negative and/or if bleeding persists, strongly recommend proceeding with colonoscopy. Patient verbalized understanding of all above and agreed with the plan. Diagnoses: (K62.5) Bright red blood per rectum (primary encounter diagnosis) (K64.8) Hemorrhoids, internal (Z79.01) On continuous oral anticoagulation Consultation requested by Dr. Christie for an opinion regarding bright red rectal bleeding. My final recommendations will be communicated back to the requesting physician by way of shared Medical record or letter to requesting physician via US mail. Belén Bernal PA-C documented in this encounter [facility] 02-17-[address] Baron, Patient has never seen you in the office, nor have you done a procedure on him. Not sure why this refill is being sent to you. Please advise. Robyn Duke RN documented in this encounter [facility] 02-15-2023 Miscellaneous Notes First attempt to reach patient. No VM left. Katherine Gao February 15, 2023 6:30 PM documented in this encounter [facility] 09-16-2022 Miscellaneous Notes Patient phones requesting refills as follows: Requested Prescriptions Pending Prescriptions Disp Refills omeprazole (PRILOSEC) 40 mg capsule [Pharmacy Med Name: OMEPRAZOLE DR CAPS 40MG] 90 capsule 0 Sig: TAKE 1 CAPSULE DAILY Please review and advise. Julia Ramirez Ma documented in this encounter [facility] 08-29-2022 Miscellaneous Notes Returned patient's call left message. For ongoing GERD symptoms I recommend continue omeprazole 40mg once daily on empty stomach and pepcid 20mg at bedtime. Avoid NSAIDs (such as Advil, Ibuprofen, Excedrin, Mobic), tobacco, alcohol, carbonated beverages, caffeine, chocolate, tomato based sauces, spicy/fatty foods, and peppermint Avoid eating large meals. Avoid eating less than 3 hours before bed. Weight loss. Elevate the head of the bed 6 inches, or at least invest in a wedge pillow. Carol Patient calling stating his GERD has gotten worse x 2-3 wks. Patient stating he is taking Omeprozole along with over the counter med that his PCP suggest with little to no relief. Patient uses [facility] in [place]. Please advise and call patient. documented in this encounter [facility] 01-05-2022 History of Present illness Narrative VIRTUAL VISIT FOLLOW UP I had a virtual visit with Mr. Garrison today for follow up EGD UPDATED HISTORY: The patient was seen by on 12/13/2021 for upper endoscopy for history of Small's esophagus. The procedures were performed with MAC sedation. The procedure report has been reviewed and findings as follows: Impression: - Normal examined jejunum. - Duodenitis. - Gastritis. Biopsied. - Esophageal mucosal changes secondary to established short-segment Small's disease. Biopsied. FINAL DIAGNOSIS A. Antrum, biopsy: - Antral mucosa with foveolar hyperplasia and minimal chronic inflammation; no evidence of H. pylori. B. Esophagus, biopsy: - Fundic mucosa with minimal chronic inflammation; no evidence of intestinal metaplasia or dysplasia. C. Esophagus, biopsy: Inflamed squamous and cardiac-type mucosa with focal intestinal metaplasia; negative for dysplasia. Patient reports taking omeprazole 40mg Reports taking in the morning on empty stomach. PAtient denies any upper GI symptoms PAST MEDICAL HISTORY Diagnosis Date BPH (benign prostatic hyperplasia) previously seeing Dr. Berry Chronic kidney disease, stage 3 ([facility]) Seeing Dr. Moss DDD (degenerative disc disease), cervical DDD (degenerative disc disease), lumbar Seeing Dr. Thayer Diarrhea Diverticulosis of colon (without mention of hemorrhage) DVT (deep venous thrombosis) ([facility]) 08/06/2020 Essential tremor External hemorrhoids without mention of complication Fibromyalgia Hernia of other specified sites of abdominal cavity without mention of obstruction or gangrene Umbilical and Left Inguinal History of basal cell carcinoma of skin 04/2018 right medial chest Hyperlipidemia Hypertension Impotence Internal hemorrhoids without mention of complication Obstructive sleep apnea Seeing Dr. Menon Osteoarthrosis, unspecified whether generalized or localized, other specified sites Osteoarthritis-R wrist Raynaud disease Rheumatic fever Shingles Type 2 diabetes mellitus without complication, without long-term current use of insulin ([facility]) 06/07/[address] Owens Uveitis 2008 right eye PAST SURGICAL HISTORY Procedure Laterality Date ARTHRP KNE CONDYLE&PLATU MEDIAL&LAT COMPARTMENTS Right 09/01/2014 CATARACT EXTRACTION HX Bilateral COLONOSCOPY FLX DX W/COLLJ SPEC WHEN PFRMD 08/23/2006 COLONOSCOPY FLX DX W/COLLJ SPEC WHEN PFRMD 11/23/2016 Colonoscopy COLONOSCOPY FLX DX W/COLLJ SPEC WHEN PFRMD 08/10/2020 Colonoscopy EGD W/O BRSH SPEC VARICIES INJ 12/13/2021 ENDOS SUBMUCUS RESECT TURBINATES 04/21/2014 ESOPHAGOGASTRODUODENOSCOPY TRANSORAL DIAGNOSTIC 08/10/2020 EGD HYPOGLOSSAL NERVE STIM IMPLANT - INSPIRE 2016 PAST SURGICAL HISTORY OF Left 1994 Knee Surgery PAST SURGICAL HISTORY OF 08/25/2008 laser prostate turp RPR 1ST INGUN HRNA AGE 5 YRS/> REDUCIBLE 09/21/2001 Hernia repair, inguinal RPR UMBILICAL HERNIA < 5 YRS REDUCIBLE 09/21/2001 Hernia repair, umbilical SEPTOPLASTY/SUBMUCOUS RESECJ W/WO CARTILAGE GRF 1979,1989 SIGMOIDOSCOPY FLX DX W/COLLJ SPEC BR/WA IF PFRMD 12/2000 Sigmoidoscopy FAMILY HISTORY Problem Relation Age of Onset Diabetes Father other (down'ssyndrome) Brother Hypertension Mother other (Other) Mother Acute Renal Failure/AAA other (Aortic aneurysm) Mother Ischemic Heart Disease Brother 58 [place] Alcohol/Drug Brother Breast Cancer Sister Diabetes Maternal Grandmother Rheumatologic disease Maternal Grandfather Anesthesia Problems No Family History Social History Tobacco Use Smoking status: Former Smoker Packs/day: 0.50 Years: 20.00 Pack years: 10.00 Types: Cigarettes Quit date: 10/16/1975 Years since quittin.2 Smokeless tobacco: Never Used Tobacco comment: QUIT 1975 Vaping Use Vaping Use: Never used Substance Use Topics Alcohol use: Yes Alcohol/week: 18.2 standard drinks Types: 14 Mixed Drinks per week Comment: 2-3 drinks per day Drug use: No Current Outpatient Medications Medication Sig Dispense Refill omeprazole (PRILOSEC) 40 mg capsule Take 1 capsule by mouth once daily. 90 capsule 1 rOPINIRole (REQUIP) 0.25 mg tablet apixaban (ELIQUIS) 5 mg tab(s) Take 1 tablet by mouth twice daily. 90 tablet 3 DULoxetine (CYMBALTA) 60 mg capsule Take 60 mg by mouth twice daily. GUAIFENESIN ORAL Take 600 mg by mouth twice daily. diphenhydrAMINE (BENADRYL) 25 mg capsule Take 25 mg by mouth daily at bedtime. lancets (PRNMS INVESTMENTS DELVoovio aka [employer]Ditize LANCETS) 30 gauge misc Use as directed to test glucose 3 times weekly. DX: E11.9 100 Each 3 cyanocobalamin, vitamin B-12, (VITAMIN B-12 INJECTION) by INJECTION(UNSPECIFIED PARENTERAL ROUTES) route once every month. sitaGLIPtin (JANUVIA) 50 mg tablet Take 1 tablet by mouth once daily. 90 tablet 3 blood sugar diagnostic (netTALKUCH VERIO) test strip USE ONE STRIP TO CHECK GLUCOSE ONCE DAILY 100 Strip 1 losartan (COZAAR) 25 mg tablet TAKE 1 TABLET DAILY 90 tablet 1 nortriptyline (PAMELOR) 10 mg capsule Take 1 capsule by mouth daily at bedtime. 30 capsule 2 ketoconazole (NIZORAL) 2 % shampoo Apply 1 application to affected area once daily as needed. 240 mL 1 atorvastatin (LIPITOR) 20 mg tablet Take 1 tablet by mouth once daily. 90 tablet 1 Blood-Glucose Meter (ONETOUCH VERIO SYSTEM) [facility] Use as directed. 1 Each 0 Cholecalciferol, Vitamin D3, 2,000 unit ORAL Cap Take 2,000 Units by mouth. 0 ascorbic acid(VITAMIN C 500 MG TAB) Take one (1) tablet twice daily. 0 dupilumab (DUPIXENT SUBCUTANEOUS) Inject subcutaneously as needed (taking every three weeks). 08/17/2021 reported taking every 3 weeks (Patient not taking: Reported on 12/02/2021 ) acyclovir (ZOVIRAX) 200 mg capsule Take 2 capsules by mouth twice daily. (suppressive therapy) (Patient not taking: Reported on 12/02/2021 ) 360 capsule 1 No current facility-administered medications for this visit. ALLERGIES Allergen Reactions Flomax [Tamsulosin] Intolerance PASSED OUT Mirapex [Pramipexol* Intolerance Uroxatral [Alfuzosi* Other: See Comments Testicular pain Zetia [Ezetimibe] Other: See Comments Muscle pain and weakness Zocor [Simvastatin] Other: See Comments Muscle pain and weakness PHYSICAL FINDINGS OF NOTE: General Normal, healthy, cooperative, in no acute distress Able to interact verbally by video conference Psych ORIENTATION: normal to time place, person and situation Mood/Affect: AFFECT AND MOOD: Normal Head/Neuro Normal size and shape Facial appearance normal Pulmonary respiratory effort normal Abdominal Not performed Skin abnormal lesions not visualized Motor patient seen sitting with Normal appearing strength and coordination IMPRESSION (Z87.19) History of Small's esophagus (primary encounter diagnosis) Assessment/Plan (Z87.19) History of Small's esophagus (primary encounter diagnosis) 1. History of Small's esophagus I have reviewed the procedure and pathology reports, as well as the images, with the patient. Continue omeprazole 40mg and small's esophagus surveillance in 3 years. Follow up in office 3 months/PRN. Recommended to please call office/go to ER if fever, chills, chest pain, SOB, diarrhea, nausea, emesis, worsening abdominal pain, dehydration occurs I spent 30 minutes in the visit, with more than 50% of the total [id number] time of the visit in counseling / coordination of care. I have confirmed and edited as necessary, the PFSH and ROS obtained by others. Carol Tran APRN.CNP January 05, 2022 9:48 AM documented in this encounter [facility] 01-04-2022 Miscellaneous Notes Patient scheduled for a follow up 01/05/22 Please review and advise: FINAL DIAGNOSIS A. Antrum, biopsy: - Antral mucosa with foveolar hyperplasia and minimal chronic inflammation; no evidence of H. pylori. B. Esophagus, biopsy: - Fundic mucosa with minimal chronic inflammation; no evidence of intestinal metaplasia or dysplasia. C. Esophagus, biopsy: Inflamed squamous and cardiac-type mucosa with focal intestinal metaplasia; negative for dysplasia. Temo had an EGD completed by Dr. Smith Villavicencio on 12/13/2021. He will need a follow up appointment with Carol Tran CNP ro review the biopsy result. Allyn Capps RN patient stated he has not had any bleeding seine he called. Does not think this was necessary will call and schedule banding if needed in the future Left message. Gave direct number to call me back Shakeel Farais patient called stated he was having issues with a bleeding hemorrhoid has not had problems with them for several years and then all of a sudden just appeared. the last 3 or 4 days seem to be better but wanted to know if there is anything he needs to do, if he should be seen ? Patient calling to ask if EGD is still scheduled on 12/13 at [facility]? He states he has not received any instructions and wants to make sure he does not miss anything. Advised patient general surgery staff would contact him when they return to the office on 11/22/21. He verbalized understanding. documented in this encounter [facility] 10-20-2021 History of Present illness Narrative I saw Mr. Pisano today on a follow-up visit in the office. I reviewed with him his test results. His pulmonary function testing was normal except for some small airway obstructive disease. His arterial blood gas on room air showed a pH 7.5 a PCO2 of 38 and a PO2 of 93 with 98% saturation. I also reviewed with him the results on his SST, which shows that he was able to walk 1200 feet in 6 minutes with no oxygen desaturation. He did need to stop on 2 occasions with this walk.Patient denies any cough or sputum production and no wheezing. He denies a dyspnea with daily activities. [facility] DO Work Phone: 10-18-2021 History of Present illness Narrative I saw Mr. Pisano today on a follow-up visit in the office. I reviewed with him his test results. His pulmonary function testing was normal except for some small airway obstructive disease. His arterial blood gas on room air showed a pH 7.5 a PCO2 of 38 and a PO2 of 93 with 98% saturation. I also reviewed with him the results on his SST, which shows that he was able to walk 1200 feet in 6 minutes with no oxygen desaturation. He did need to stop on 2 occasions with this walk.Patient denies any cough or sputum production and no wheezing. He denies a dyspnea with daily activities. -[facility] 300 Work Phone: 10-14-2021 History of Present illness Narrative I saw Mr. Pisano today on a follow-up visit in the office. I reviewed with him his test results. His pulmonary function testing was normal except for some small airway obstructive disease. His arterial blood gas on room air showed a pH 7.5 a PCO2 of 38 and a PO2 of 93 with 98% saturation. I also reviewed with him the results on his SST, which shows that he was able to walk 1200 feet in 6 minutes with no oxygen desaturation. He did need to stop on 2 occasions with this walk.Patient denies any cough or sputum production and no wheezing. He denies a dyspnea with daily activities. -[place] [id number] [place] Work Phone: 09-02-2021 History of Present illness Narrative This is 80-year-old male who I was asked to evaluate because of nocturnal hypoxemia. Patient reports that in the early he was having problems with poor sleep and had a sleep study and was placed on a CPAP machine. He utilizes for about 3 weeks and did not feel any better so he quit using the device he is also been placed on a oral appliance and also had a inspire inserted in [address] [facility]. He reports that in the last couple weeks representatives from the company adjusted his device and now he is able to use it on a regular basis. He reports using the oral appliance for about 6 months and he is using both both devices. Patient had HST done on 11/25/2020 which shows that he has severe obstructive sleep apnea. On that study he had 27.7 minutes of saturations less than or equal 88%. He had a subsequent HST done on 05/25/2021 and this study showed time spent less than or equal 88% was 9 minutes.The patient also has a history of hypertension, hyperlipidemia, restless limb movements of sleep and phlegm production on a daily basis. He has had his right knee replaced and he has had a tonsillectomy and adenoidectomy. His left knee underwent endoscopic surgery. Family history is positive for sister with breast cancer in brother who with a myocardial infarction. Patient was a former smoker that quit 08/03/1976 and had smoked for about 20 years. He smoked 1 pack/day. He is an alcoholic. 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 -[facility] DO Work Phone: 09-02-2021 History of Present illness Narrative This is 80-year-old male who I was asked to evaluate because of nocturnal hypoxemia. Patient reports that in the early he was having problems with poor sleep and had a sleep study and was placed on a CPAP machine. He utilizes for about 3 weeks and did not feel any better so he quit using the device he is also been placed on a oral appliance and also had a inspire inserted in [address] [facility]. He reports that in the last couple weeks representatives from the company adjusted his device and now he is able to use it on a regular basis. He reports using the oral appliance for about 6 months and he is using both both devices. Patient had HST done on 11/25/2020 which shows that he has severe obstructive sleep apnea. On that study he had 27.7 minutes of saturations less than or equal 88%. He had a subsequent HST done on 05/25/2021 and this study showed time spent less than or equal 88% was 9 minutes.The patient also has a history of hypertension, hyperlipidemia, restless limb movements of sleep and phlegm production on a daily basis. He has had his right knee replaced and he has had a tonsillectomy and adenoidectomy. His left knee underwent endoscopic surgery. Family history is positive for sister with breast cancer in brother who with a myocardial infarction. Patient was a former smoker that quit 08/03/1976 and had smoked for about 20 years. He smoked 1 pack/day. He is an alcoholic. 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 -Pulmonary Medicine-[place] [id number] [employer] Work Phone: 07-20-2021 History of Present illness Narrative The patient has lights out at 9:30 PM and it takes him anywhere from 2 to 20 minutes to fall asleep. The patient will wake for the day at around 8:30 AM. The patient is using his oral appliance every night the patient did have a home sleep study that showed his AHI was 24.4 with a low oxygen saturation of 63.1 while using the oral appliance. His original AHI was 55.1 from a sleep study in 2013 at the [facility]. The patient's [place] Sleepiness Scale score today was 4. The patient states that he does not kick his legs prior to going to sleep but is a very restless sleeper. The patient states that he is very active physically during the day.The patient states that he had the Inspire device implanted in 2017. He states that he had the device set for a 45-minute onset delay and that when it would come on it would come on with a vengeance and wake him from sleep. [facility] Work Phone: 07-16-2021 History of Present illness Narrative Mr. TEMO GARRISON is presenting for inspire eval- existing implantThe patient was kindly referred by Malick Baird personally reviewed the referring provider's note dated 07/16/21Multifactorial sleep issues- rosita, rlsVery restless sleeperWas started on RequipCurrently using OAT for OSAHas inspire device [facility] (up to 20 min SL) until 830Baseline AHI 55 (2013 study [facility])Study with OAT in place showed AHI 24.4Noted he had device set for 45 min delay and a sense that it would come on with a vengeance Does not appear that device was interrogated or adjusted at that visitHas had sleep issues his whole life - thinks over 50 yearsReally only started assessing it about 10 min ago2 CPAPsOne bipap every mask in the known universe Had TE CA by reportHad InspireThe whole time he has had it, it woke him from sleep as soon as it came onIn late 2017- early 2018 he threw in the towel with his InspireGot OAT as his next stepNow has been using that about 6 monthsSleeps 10.5 -11 hoursSleeps 9/10 - 830 400 lb gorilla fights him every night- this is different from his restless legsAlso has RLS on requip dose is being adjusted upwards [id number] 205 [place] Work Phone: 07-16-2021 History of Present illness Narrative Mr. TEMO GARRISON is presenting for inspire eval- existing implantThe patient was kindly referred by Malick Baird personally reviewed the referring provider's note dated 07/16/21Multifactorial sleep issues- rosita, rlsVery restless sleeperWas started on RequipCurrently using OAT for OSAHas inspire device which [facility] (up to 20 min SL) until 830Baseline AHI 55 (2014 study [facility])Study with OAT in place showed AHI 24.4Noted he had device set for 45 min delay and a sense that it would come on with a vengeance Does not appear that device was interrogated or adjusted at that visitHas had sleep issues his whole life - thinks over 50 yearsReally only started assessing it about 10 min ago2 CPAPsOne bipap every mask in the known universe Had TE CA by reportHad InspireThe whole time he has had it, it woke him from sleep as soon as it came onIn late 2017- early 2018 he threw in the towel with his InspireGot OAT as his next stepNow has been using that about 6 monthsSleeps 10.5 -11 hoursSleeps / - 830 400 lb gorilla fights him every night- this is different from his restless legsAlso has RLS on requip dose is being adjusted upwardsWe pulled multiple inspire cloud reports todayHe was not yet in the systemWas on Bipolar Summer 2016 - 3.3 (2.9-3.6) with default PW and rateLeft on off minus off, 2.0 (1.8-2.6) with PW 120In Jun 2018 was changed to - minus minus minus with stable PW and slight decr in voltage 1.5 (1.2-2.2)In Oct 2018 (most recent report) he remained on minus minus minus with voltage 0.8 (0.5-1.5) Work done with the device TODAY 09/02/21 as followsImpedances checked at 1.5, 2, and 2.5 V --> OK AT ALL ELECTRODE CONFIG AND VOLTAGESWaveform run at bipolar 1.5 and 1.3 V --> OK - irregular breathing pattern but no red flagsAt DEFAULT bipolar settings, PW and rate:Sense threshold is 0.6VFunctional threshold is 1.6VComfortable at 1.3 V while running waveformGoing out on default settings with voltage 1.3 (1.1-2.1)Start delay 20 minPause delay 15 minWILL PLAN TO USE WITH OAT IN PLACE [id number] MAC1 [address] [place] Work Phone: 07-16-2021 History of Present illness Narrative The patient has lights out at 9:30 PM and it takes him anywhere from 2 to 20 minutes to fall asleep. The patient will wake for the day at around 8:30 AM. The patient is using his oral appliance every night the patient did have a home sleep study that showed his AHI was 24.4 with a low oxygen saturation of 63.1 while using the oral appliance. His original AHI was 55.1 from a sleep study in 2013 at the [facility]. The patient's [place] Sleepiness Scale score today was 4. The patient states that he does not kick his legs prior to going to sleep but is a very restless sleeper. The patient states that he is very active physically during the day.The patient states that he had the Inspire device implanted in 2016. He states that he had the device set for a 45-minute onset delay and that when it would come on it would come on with a vengeance and wake him from sleep. [id number] 204 Work Phone: documented as of this encounter (statuses as of 01/04/2022) [facility] History of Past illness Narrative* Problem Noted Date Resolved Date Chronic kidney disease 11/25/2016 2 Raynaud's disease without gangrene 11/23/2015 11/18/2016 Urinary retention 09/23/2014 11/18/2016 Nocturia 09/19/2011 02/25/2013 Urgency of urination 09/19/2011 02/25/2013 Frequency of urination 09/19/2011 3 Retrograde ejaculation 09/19/2011 2 Difficulty voiding 09/19/2011 02/25/2013 Hypertension 07/21/2011 11/25/2016 Pain in finger 05/09/2011 01/03/2014 Hyperactivity of bladder 10/05/2009 013 Ingrowing nail 09/22/2009 01/03/2014 Cellulitis and abscess of toe, unspecified 09/0801/03/2014 Postoperative urethral stricture 11/26/2007 01/03/2014 Bladder neck obstruction 05/28/2007 014 Hyperlipidemia 11/23/2015 Hernia of other specified si jd of abdominal cavity without mention of obstruction or gangrene 12/02/2021 Overview: Umbilical and Left Inguinal Chronic kidney disease 7 documented as of this encounter (statuses as of 01/05/2022) [facility] History of Past illness Narrative* Problem Noted Date Resolved Date Chronic kidney disease 11/25/2016 2 Raynaud's disease without gangrene 11/23/2015 11/18/2016 Urinary retention 09/23/2014 11/18/2016 Nocturia 09/19/2011 02/25/2013 Urgency of urination 09/19/2011 02/25/2013 Frequency of urination 09/19/2011 3 Retrograde ejaculation 09/19/2011 2 Difficulty voiding 09/19/2011 02/25/2013 Hypertension 07/21/2011 11/25/2016 Pain in finger 05/09/2011 01/03/2014 Hyperactivity of bladder 10/05/2009 013 Ingrowing nail 09/22/2009 01/03/2014 Cellulitis and abscess of toe, unspecified 09/0801/03/2014 Postoperative urethral stricture 11/26/2007 01/03/2014 Bladder neck obstruction 05/28/2007 014 Hyperlipidemia 11/23/2015 Hernia of other specified si jd of abdominal cavity without mention of obstruction or gangrene 12/02/2021 Overview: Umbilical and Left Inguinal Chronic kidney disease 7 documented as of this encounter (statuses as of 05/15/2022) [facility] History of Past illness Narrative* Problem Noted Date Resolved Date Chronic kidney disease 11/25/2016 2 Raynaud's disease without gangrene 11/23/2015 11/18/2016 Urinary retention 09/23/2014 11/18/2016 Nocturia 09/19/2011 02/25/2013 Urgency of urination 09/19/2011 02/25/2013 Frequency of urination 09/19/2011 3 Retrograde ejaculation 09/19/2011 2 Difficulty voiding 09/19/2011 02/25/2013 Hypertension 07/21/2011 11/25/2016 Pain in finger 05/09/2011 01/03/2014 Hyperactivity of bladder 10/05/2009 013 Ingrowing nail 09/22/2009 01/03/2014 Cellulitis and abscess of toe, unspecified 09/0801/03/2014 Postoperative urethral stricture 11/26/2007 01/03/2014 Bladder neck obstruction 05/28/2007 014 Hyperlipidemia 11/23/2015 Hernia of other specified si jd of abdominal cavity without mention of obstruction or gangrene 12/02/2021 Overview: Umbilical and Left Inguinal Chronic kidney disease 7 documented as of this encounter (statuses as of 08/30/2022) [facility] History of Past illness Narrative* Problem Noted Date Resolved Date Chronic kidney disease 11/25/2016 2 Raynaud's disease without gangrene 11/23/2015 11/18/2016 Urinary retention 09/23/2014 11/18/2016 Nocturia 09/19/2011 02/25/2013 Urgency of urination 09/19/2011 02/25/2013 Frequency of urination 09/19/2011 3 Retrograde ejaculation 09/19/2011 2 Difficulty voiding 09/19/2011 02/25/2013 Hypertension 07/21/2011 11/25/2016 Pain in finger 05/09/2011 01/03/2014 Hyperactivity of bladder 10/05/2009 013 Ingrowing nail 09/22/2009 01/03/2014 Cellulitis and abscess of toe, unspecified 09/0801/03/2014 Postoperative urethral stricture 11/26/2007 01/03/2014 Bladder neck obstruction 05/28/2007 014 Hyperlipidemia 11/23/2015 Hernia of other specified si jd of abdominal cavity without mention of obstruction or gangrene 12/02/2021 Overview: Umbilical and Left Inguinal Chronic kidney disease 7 documented as of this encounter (statuses as of 09/19/2022) [facility] of Past illness Narrative* Problem Noted Date Resolved Date Chronic kidney disease 11/25/2016 2 Raynaud's disease without gangrene 11/23/2015 11/18/2016 Urinary retention 09/23/2014 11/18/2016 Nocturia 09/19/2011 02/25/2013 Urgency of urination 09/19/2011 02/25/2013 Frequency of urination 09/19/2011 3 Retrograde ejaculation 09/19/2011 2 Difficulty voiding 09/19/2011 02/25/2013 Hypertension 07/21/2011 11/25/2016 Pain in finger 05/09/2011 01/03/2014 Hyperactivity of bladder 10/05/2009 013 Ingrowing nail 09/22/2009 01/03/2014 Cellulitis and abscess of toe, unspecified 09/0801/03/2014 Postoperative urethral stricture 11/26/2007 01/03/2014 Bladder neck obstruction 05/28/2007 014 Hyperlipidemia 11/23/2015 Hernia of other specified si jd of abdominal cavity without mention of obstruction or gangrene 12/02/2021 Overview: Umbilical and Left Inguinal Chronic kidney disease 7 documented as of this encounter (statuses as of 02/16/2023) [facility] of Past illness Narrative* Problem Noted Date Resolved Date Chronic kidney disease 11/25/2016 2 Raynaud's disease without gangrene 11/23/2015 11/18/2016 Urinary retention 09/23/2014 11/18/2016 Nocturia 09/19/2011 02/25/2013 Urgency of urination 09/19/2011 02/25/2013 Frequency of urination 09/19/2011 3 Retrograde ejaculation 09/19/2011 2 Difficulty voiding 09/19/2011 02/25/2013 Hypertension 07/21/2011 11/25/2016 Pain in finger 05/09/2011 01/03/2014 Hyperactivity of bladder 10/05/2009 013 Ingrowing nail 09/22/2009 01/03/2014 Cellulitis and abscess of toe, unspecified 09/0801/03/2014 Postoperative urethral stricture 11/26/2007 01/03/2014 Bladder neck obstruction 05/28/2007 014 Hyperlipidemia 11/23/2015 Hernia of other specified si jd of abdominal cavity without mention of obstruction or gangrene 12/02/2021 Overview: Umbilical and Left Inguinal Chronic kidney disease 7 documented as of this encounter (statuses as of 02/17/2023) [facility] of [facility] Narrative* Problem Noted Date Diagnosed Date Resolved Date Chronic kidney disease 11/25/201612/02 Raynaud's disease without gangrene 11/23/2015 11/18/2016 Urinary retention 09/23/2014 11/18/2016 Nocturia 09/19/2011 02/25/2013 Urgency of urination 09/19/2011 013 Frequency of urination 09/19/201102/25 Retrograde ejaculation 09/19/201112/02 Difficulty voiding 09/19/2011 3 Hypertension 07/21/2011 11/25/2016 Pain in finger 05/09/2011 01/03/2014 Hyperactivity of bladder 10/05/2009 Ingrowing nail 09/22/2009 01/03/2014 Cellulitis and abscess of toe, unspecified 09/08/2009 01/03/2014 Postoperative urethral stricture 11/26/2007 01/03/2014 Bladder neck obstruction 05/28/2007 Hyperlipidemia 11/23/2015 Hernia of other specified si jd of abdominal cavity without mention of obstruction or gangrene 12/02/2021 Overview: Umbilical and Left Inguinal Chronic kidney disease 11/25 documented as of this encounter (statuses as of 05/29/2023) [facility] of Past illness Narrative* Problem Noted Date Diagnosed Date Resolved Date Chronic kidney disease 11/25/201612/02 Raynaud's disease without gangrene 11/23/2015 11/18/2016 Urinary retention 09/23/2014 11/18/2016 Nocturia 09/19/2011 02/25/2013 Urgency of urination 09/19/2011 013 Frequency of urination 09/19/201102/25 Retrograde ejaculation 09/19/201112/02 Difficulty voiding 09/19/2011 3 Hypertension 07/21/2011 11/25/2016 Pain in finger 05/09/2011 01/03/2014 Hyperactivity of bladder 10/05/2009 Ingrowing nail 09/22/2009 01/03/2014 Cellulitis and abscess of toe, unspecified 09/08/2009 01/03/2014 Postoperative urethral stricture 11/26/2007 01/03/2014 Bladder neck obstruction 05/28/2007 Hyperlipidemia 11/23/2015 Hernia of other specified si jd of abdominal cavity without mention of obstruction or gangrene 12/02/2021 Overview: Umbilical and Left Inguinal Chronic kidney disease 11/25 documented as of this encounter (statuses as of 06/08/2023) [facility] of [facility] illness Narrative* Problem Noted Date Diagnosed Date Resolved Date Chronic kidney disease 11/25/201612/02 Raynaud's disease without gangrene 11/23/2015 11/18/2016 Urinary retention 09/23/2014 11/18/2016 Nocturia 09/19/2011 02/25/2013 Urgency of urination 09/19/2011 013 Frequency of urination 09/19/201102/25 Retrograde ejaculation 09/19/201112/02 Difficulty voiding 09/19/2011 3 Hypertension 07/21/2011 11/25/2016 Pain in finger 05/09/2011 01/03/2014 Hyperactivity of bladder 10/05/2009 Ingrowing nail 09/22/2009 01/03/2014 Cellulitis and abscess of toe, unspecified 09/08/2009 01/03/2014 Postoperative urethral stricture 11/26/2007 01/03/2014 Bladder neck obstruction 05/28/2007 Hyperlipidemia 11/23/2015 Hernia of other specified si jd of abdominal cavity without mention of obstruction or gangrene 12/02/2021 Overview: Umbilical and Left Inguinal Chronic kidney disease 11/25 documented as of this encounter (statuses as of 09/14/2023) [facility] History of Present illness Narrative* From a previous note from Dr. Segovia : * Has had sleep issues his whole life- initially tested and treated about 7 yr ago - Baseline AHI 55(2013 study [facility]) * Tried multiple PAP machines * Has inspire device which was implanted at [facility] 2016 * Has had multiple changes in the device settings and has struggled to sleep with the stim on * In 2019, abandoned therapy * Ultimately got OAT - AHI with OAT in place is 24.4 * Past changes summarized from cloud reports as follows: * Was on Bipolar Summer 2016 - 3.3 (2.9-3.6) with default PW and rate - Left on off minus off, 2.0 (1.8-2.6) with PW 120 * In Jun 2018 was changed to - minus minus minus with stable PW and slight decr in voltage 1.5 (1.2-2.2) * In Oct 2018 (most recent report) he remained on minus minus minus with voltage 0.8 (0.5-1.5) * * Work done with the device 09/02/21 as follows * Impedances checked at 1.5, 2, and 2.5 V --> OK AT ALL ELECTRODE CONFIG AND VOLTAGES * Waveform run at bipolar 1.5 and 1.3 V --> OK - irregular breathing pattern but no red flags * At DEFAULT bipolar settings, PW and rate: * Sense threshold is 0.6V * Functional threshold is 1.6V * Comfortable at 1.3 V while running waveform * Going out on default settings with voltage 1.3 (1.1-2.1) * Start delay 20 min * Pause delay 15 min * WILL PLAN TO USE WITH OAT IN PLACE * Step up as able, take time! * Use all night every night * xxxxxxxxxxx * 12/16/21 patient is using his inspire therapy * currently he is at 2.0V * he uses inspire in combination with oral appliance. * usage 62 hrs per week * range .9-2.1V * start delay 20min * pause 15 * therapy duration 10hrs * changed settings to to 1.8- 2.8, 3rd level, at 2V now * increased start delay from 20 min to 40 min. * 03/21/22 * incoming amplitude 2.4V, patient control 1.8-2.8 V. * Functional threshold (03/21/22) 1.6V * checked wave form. * Patient is using his inspire therapy with his oral appliance, but oral appliance falls off in the middle of the night. * 11/21/22 * patient had back pain s/p fall in October 06 thus has had difficulties with his sleep. * He does not feel refreshed in am, he needs to take naps. * He keeps pausing his device as it takes him a long time to sleep sometimes. * made some setting changes as follows. * amplitude: 0.9 (was 2.4) * patient control 0.8-1.8V (was 2.1-3.1) * start delay 40min * pause time 15min * therapy duration 12 hrs * electrodes off - off + (was +-+ off) * sensational 0.7 V * functional 0.8 V * impedances checked and ok * 02/27/23 * Patient forgot the remote today. * patient feels that the device is waking him up as he is falling asleep. * incoming settings * amplitude 1V (patient had changed from 0.9V) * usage 42hrs * patient control 0.8-1.8V * start delay 40min * pause time 15min * therapy duration 12hrs. * sensation: 0.6V * functional:0.7V * changed settings to: * amplitude 1V * patient control 0.8-1.8V * start delay 60min (was 40min) * pause time 20 min (was 15min) * therapy duration 12hrs * patient is using medical marijuana for his pain. * He sleeps poorly. 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 * Weekdays/Work/School Days: usual bed time: 9 pm, usual wake time: 8:30 am and falls asleep at about: 10:05 pm. * Weekends/Off Work/Vacation Days: same as above schedule. 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 * Naps: Patient Does Not Nap. * SLEEP DURATION: 10-10.5 hr ?. * SLEEP INITIATION: Takes 5min to hours to fall asleep. * SLEEP MAINTENANCE: wakes up about four or more times a night and variable lengths. * Problems staying asleep associated with nocturia. Problems staying asleep associated with pain. * BREATHING DURING SLEEP: No snoring during sleep. No witnessed apneas. No gasping/choking for air. Nasal congestion during sleep. on meds. No nocturnal gastroesophageal reflux. No nocturnal cough. butunsure. * Sleep Positioning: supine and side. * MORNING SYMPTOMS: No morning headaches. Morning dry mouth. No morning sore throat. Unrefreshing sleep. Patient denies stimulant use. * DAYTIME: Daytime sleepiness. Fatigue. No drowsy driving. No history of car accidents due to drowsy driving. No near-miss car accidents due to drowsy driving. * CAFFEINE USAGE: 2 cups coffee in am. * HYPERSOMNIA: No sleep paralysis. No cataplexy. No sleep related hallucinations. * LEGS AT NIGHT: on ropinirole. * MOVEMENTS IN SLEEP: Bruxism (teeth grinding). * PARASOMNIA: No sleeptalking. No sleepwalking. Does not act out of dream. No nightmares. -[facility] [id number] DO Work Phone: [phone] 327-119802-07-2016 History of Present illness Narrative* From a previous note from Dr. Segovia : * Has had sleep issues his whole life- initially tested and treated about 7 yr ago - Baseline AHI 55(2013 study [facility]) * Tried multiple PAP machines * Has inspire device which was implanted at [facility] 2016 * Has had multiple changes in the device settings and has struggled to sleep with the stim on * In 2019, abandoned therapy * Ultimately got OAT - AHI with OAT in place is 24.4 * Past changes summarized from cloud reports as follows: * Was on Bipolar Summer 2016 - 3.3 (2.9-3.6) with default PW and rate - Left on off minus off, 2.0 (1.8-2.6) with PW 120 * In Jun 2018 was changed to - minus minus minus with stable PW and slight decr in voltage 1.5 (1.2-2.2) * In Oct 2018 (most recent report) he remained on minus minus minus with voltage 0.8 (0.5-1.5) * * Work done with the device 09/02/21 as follows * Impedances checked at 1.5, 2, and 2.5 V --> OK AT ALL ELECTRODE CONFIG AND VOLTAGES * Waveform run at bipolar 1.5 and 1.3 V --> OK - irregular breathing pattern but no red flags * At DEFAULT bipolar settings, PW and rate: * Sense threshold is 0.6V * Functional threshold is 1.6V * Comfortable at 1.3 V while running waveform * Going out on default settings with voltage 1.3 (1.1-2.1) * Start delay 20 min * Pause delay 15 min * WILL PLAN TO USE WITH OAT IN PLACE * Step up as able, take time! * Use all night every night * xxxxxxxxxxx * 12/16/21 patient is using his inspire therapy * currently he is at 2.0V * he uses inspire in combination with oral appliance. * usage 62 hrs per week * range .9-2.1V * start delay 20min * pause 15 * therapy duration 10hrs * changed settings to to 1.8- 2.8, 3rd level, at 2V now * increased start delay from 20 min to 40 min. * 03/21/22 * incoming amplitude 2.4V, patient control 1.8-2.8 V. * Functional threshold (03/21/22)1.6V * checked wave form. * Patient is using his inspire therapy with his oral appliance, but oral appliance falls off in the middle of the night. * Today, 11/21/22 * patient had back pain s/p fall in October 06 thus has had difficulties with his sleep. * He does not feel refreshed in am, he needs to take naps. * He keeps pausing his device as it takes him a long time to sleep sometimes. * made some setting changes as follows. * amplitude: 0.9 (was 2.4) * patient control 0.8-1.8V (was 2.1-3.1) * start delay 40min * pause time 15min * therapy duration 12 hrs * electrodes off - off + (was +-+ off) * sensational 0.7 V * functional 0.8 V * impedances checked and ok * Weekdays/Work/School Days: usual bed time: 9 pm, usual wake time: 8:20 am and falls asleep at about: 10:05 pm. * Weekends/Off Work/Vacation Days: same as above schedule. 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 * Naps: Patient Does Not Nap. * SLEEP DURATION: 10-10.5 hr. * SLEEP INITIATION: Takes 5min to hours to fall asleep. * SLEEP MAINTENANCE: wakes up about two - three times a night. * Problems staying asleep associated with nocturia. * BREATHING DURING SLEEP: No snoring during sleep. No witnessed apneas. No gasping/choking for air. Nasal congestion during sleep. on meds. No nocturnal gastroesophageal reflux. No nocturnal cough. butunsure. * Sleep Positioning: supine and side. * MORNING SYMPTOMS: No morning headaches. Morning dry mouth. No morning sore throat. Unrefreshing sleep. Patient denies stimulant use. * DAYTIME: Daytime sleepiness. Fatigue. No drowsy driving. No history of car accidents due to drowsy driving. No near-miss car accidents due to drowsy driving. * CAFFEINE USAGE: 2 cups coffee in am. * HYPERSOMNIA: No sleep paralysis. No cataplexy. No sleep related hallucinations. * LEGS AT NIGHT: on ropinirole. * MOVEMENTS IN SLEEP: Bruxism (teeth grinding). * PARASOMNIA: No sleeptalking. No sleepwalking. Does not act out of dream. No nightmares. [facility] Work Phone: [phone] History of Present illness Narrative* From a previous note from Dr. Segovia : * Has had sleep issues his whole life- initially tested and treated about 7 yr ago - Baseline AHI 55(2013 study [facility]) * Tried multiple PAP machines * Has inspire device which was implanted at [facility] 2017 * Has had multiple changes in the device settings and has struggled to sleep with the stim on * In 2019, abandoned therapy * Ultimately got OAT - AHI with OAT in place is 24.4 * Past changes summarized from cloud reports as follows: * Was on Bipolar Summer 2017 - 3.3 (2.9-3.6) with default PW and rate - Left on off minus off, 2.0 (1.8-2.6) with PW 120 * In Jun 2018 was changed to - minus minus minus with stable PW and slight decr in voltage 1.5 (1.2-2.2) * In Oct 2018 (most recent report) he remained on minus minus minus with voltage 0.8 (0.5-1.5) * * Work done with the device 09/02/21 as follows * Impedances checked at 1.5, 2, and 2.5 V --> OK AT ALL ELECTRODE CONFIG AND VOLTAGES * Waveform run at bipolar 1.5 and 1.3 V --> OK - irregular breathing pattern but no red flags * At DEFAULT bipolar settings, PW and rate: * Sense threshold is 0.6V * Functional threshold is 1.6V * Comfortable at 1.3 V while running waveform * Going out on default settings with voltage 1.3 (1.1-2.1) * Start delay 20 min * Pause delay 15 min * WILL PLAN TO USE WITH OAT IN PLACE * Step up as able, take time! * Use all night every night * xxxxxxxxxxx * Today 12/16/21 patient is using his inspire therapy * currently he is at 2.0V * he uses inspire in combination with oral appliance. * usage 62 hrs per week * range .9-2.1V * start delay 20min * pause 15 * therapy duration 10hrs * changed settings to to 1.8- 2.8, 3rd level, at 2V now * increased start delay from 20 min to 40 min. * Weekdays/Work/School Days: usual bed time: 9-10 pm, usual wake time: 8am and falls asleep at about:9-10pm. * Weekends/Off Work/Vacation Days: same as above schedule. 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 * Naps: Patient Does Not Nap. * SLEEP DURATION: 10 hr. * SLEEP INITIATION: Takes 30min to fall asleep. * SLEEP MAINTENANCE: wakes up about two - three times a night. * Problems staying asleep associated with nocturia. * BREATHING DURING SLEEP: No snoring during sleep. No witnessed apneas. No gasping/choking for air. Nasal congestion during sleep. on meds. No nocturnal gastroesophageal reflux. No nocturnal cough. * Sleep Positioning: supine and side. * MORNING SYMPTOMS: No morning headaches. Morning dry mouth. No morning sore throat. Unrefreshing sleep. Patient denies stimulant use. * DAYTIME: Daytime sleepiness. Fatigue. No drowsy driving. No history of car accidents due to drowsy driving. No near-miss car accidents due to drowsy driving. * CAFFEINE USAGE: 2 cups coffee in am. * HYPERSOMNIA: No sleep paralysis. No cataplexy. No sleep related hallucinations. * LEGS AT NIGHT: No symptoms of restless legs syndrome (RLS). * MOVEMENTS IN SLEEP: Bruxism (teeth grinding). * PARASOMNIA: No sleeptalking. No sleepwalking. Does not act out of dream. No nightmares. [facility] SERVICESSleep MedicineCleg[facility] [id number] DO Work Phone: [phone] History of Present illness Narrative* Mr. TEMO GARRISON is presenting for inspire eval- existing implant * The patient was kindly referred by Malick Weber who he has seen recently for RLS and ROSITA * Has had sleep issues his whole life- initially tested and treated about 7 yr ago - Baseline AHI 55 (2014 study [facility]) * Tried multiple PAP machines * Has inspire device which was implanted at [facility] 2016 * Has had multiple changes in the device settings and has struggled to sleep with the stim on * In 2019, abandoned therapy * Ultimately got OAT - AHI with OAT in place is 24.4 * Past changes summarized from cloud reports as follows: * Was on Bipolar Summer 2016 - 3.3 (2.9-3.6) with default PW and rate - Left on off minus off, 2.0 (1.8-2.6) with PW 120 * In Jun 2018 was changed to - minus minus minus with stable PW and slight decr in voltage 1.5 (1.2-2.2) * In Oct 2018 (most recent report) he remained on minus minus minus with voltage 0.8 (0.5-1.5) * * Work done with the device TODAY 09/02/21 as follows * Impedances checked at 1.5, 2, and 2.5 V --> OK AT ALL ELECTRODE CONFIG AND VOLTAGES * Waveform run at bipolar 1.5 and 1.3 V --> OK - irregular breathing pattern but no red flags * At DEFAULT bipolar settings, PW and rate: * Sense threshold is 0.6V * Functional threshold is 1.6V * Comfortable at 1.3 V while running waveform * Going out on default settings with voltage 1.3 (1.1-2.1) * Start delay 20 min * Pause delay 15 min * WILL PLAN TO USE WITH OAT IN PLACE * Step up as able, take time! * Use all night every night * xxxxxx * patient is using his pap therapy * currently he is at 2.0 * he uses in combination with oral appliance. * one before dental device and * 62 hrs per week * .9-2.1 * start delay 20min * pause 15 * therapy duration 10hrs * changed to 1.8- 2.8, 3rd level 2 now * increased start delay from 20 min to 40 min. * f/u 3months * Weekdays/Work/School Days: usual bed time: 9-10 pm, usual wake time: 8am and falls asleep at about:9-10pm. * Weekends/Off Work/Vacation Days: same as above schedule. 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 * Naps: Patient Does Not Nap. * SLEEP DURATION: 10 hr. * SLEEP INITIATION: Takes 30min to fall asleep. * SLEEP MAINTENANCE: wakes up about two - three times a night. * Problems staying asleep associated with nocturia. * BREATHING DURING SLEEP: No snoring during sleep. No witnessed apneas. No gasping/choking for air. Nasal congestion during sleep. on meds. No nocturnal gastroesophageal reflux. No nocturnal cough. * Sleep Positioning: supine and side. * MORNING SYMPTOMS: No morning headaches. Morning dry mouth. No morning sore throat. Unrefreshing sleep. Patient denies stimulant use. * DAYTIME: Daytime sleepiness. Fatigue. No drowsy driving. No history of car accidents due to drowsy driving. No near-miss car accidents due to drowsy driving. * CAFFEINE USAGE: 2 cups coffee in am. * HYPERSOMNIA: No sleep paralysis. No cataplexy. No sleep related hallucinations. * LEGS AT NIGHT: No symptoms of restless legs syndrome (RLS). * MOVEMENTS IN SLEEP: Bruxism (teeth grinding). * PARASOMNIA: No sleeptalking. No sleepwalking. Does not act out of dream. No nightmares. -[facility] [id number] DO Work Phone: chief complaint Narrative - Reported* Sleep apnea * Neurologic Evaluation. * An interactive audio and video telecommunication system which permits real time communications between the patient (at the originating site) and provider (at the distant site) was utilized to providethis telehealth service. * Verbal consent was requested and obtained from TEMO GARRISON on this date, 07/16/2021 09:00 AM , for a telehealth visit. * Virtual visit. Follow up on sleep. [id number] Work Phone: chief complaint Narrative - Reported* Sleep apnea * Neurologic Evaluation. * An interactive audio and video telecommunication system which permits real time communications between the patient (at the originating site) and provider (at the distant site) was utilized to providethis telehealth service. * Verbal consent was requested and obtained from TEMO GARRISON on this date, 07/16/2021 09:00 AM , for a telehealth visit. * Virtual visit. Follow up on sleep. [facility] Work Phone: chief complaint Narrative - Reported* Sleep apnea * Neurologic Evaluation. * An interactive audio and video telecommunication system which permits real time communications between the patient (at the originating site) and provider (at the distant site) was utilized to providethis telehealth service. * Verbal consent was requested and obtained from TEMO GARRISON on this date, 07/16/2021 09:00 AM , for a telehealth visit. * Virtual visit. Follow up on sleep. [facility] Work Phone: chief complaint Narrative - Reported* TEMO GARRISON is here for an initial evaluation. * Reason for Visit: Nocturnal Hypoxemia. * Appointment requested by: Dr. Weber; PCP: Dr. Wilson. -[facility]St[facility] DO Work Phone: chief complaint Narrative - Reported* TEMO GARRISON is here for an initial evaluation. * Reason for Visit: Nocturnal Hypoxemia. * Appointment requested by: Dr. Weber; PCP: Dr. Wilson. -Pulmonary [place] [address] DO Work Phone: chief complaint Narrative - Reported* TEMO GARRISON is here for an initial evaluation. * Reason for Visit: Nocturnal Hypoxemia. * Appointment requested by: Dr. Weber; PCP: Dr. Wilson. [facility] SERVICESPulmonary [place] [address] DO Work Phone: Evaluation note* Diagnosis History of Small's esophagus- Primary [facility] Bright red blood per rectum- Primary Hemorrhage of rectum and anus Hemorrhoids, internal Internal hemorrhoids without mention of complication [facility] Other chronic pain [facility] Diagnosis Bright red blood per rectum- Primary Hemorrhage of rectum and anus Hemorrhoids, internal Internal hemorrhoids without mention of complication [facility]* The patient has lights out at 9:30 PM and it takes him anywhere from 2 to 20 minutes to fall asleep. The patient will wake for the day at around 8:30 AM. The patient is using his oral appliance everynight the patient did have a home sleep study that showed his AHI was 24.4 with a low oxygen saturation of 63.1 while using the oral appliance. His [facility] was 55.1 [facility] [address] [facility] The patient's [place] Sleepiness Scale score today was 4. The patient states that he does not kick his legs prior to going to sleep but is a very restless sleeper. The patient states that he is very active physically during the day. * The patient states that he had the Inspire device implanted in 2017. He states that he had the device set for a 45-minute onset delay and that when it would come on it would come on with a vengeance and wake him from sleep. [facility] Work Phone: Summary Purpose Family History No Family History Records FoundUnknown Family Member Name Dates Details No pertinent family history( V49.89, Z78.9) Comments:Maternal Relatives Status:Active No pertinent family history( V49.89, Z78.9) Comments:Paternal Relatives Status:Active Unknown Family Member Name Dates Details No pertinent family history: Maternal Relatives, Paternal Relatives(V49.89, Z78.9) Status:Active Unknown Family Member Name Dates Details No pertinent family history: Maternal Relatives, Paternal Relatives(V49.89, Z78.9) Status:Active Unknown Family Member Name Dates Details No pertinent family history: Maternal Relatives, Paternal Relatives(V49.89, Z78.9) Status:Active Unknown Family Member Name Dates Details No pertinent family history: Maternal Relatives, Paternal Relatives(V49.89, Z78.9) Status:Active Unknown Family Member Name Dates Details No pertinent family history: Maternal Relatives, Paternal Relatives(V49.89, Z78.9) Status:Active Unknown Family Member Name Dates Details No pertinent family history: Maternal Relatives, Paternal Relatives(V49.89, Z78.9) Status:Active Unknown Family Member Name Dates Details No pertinent family history: Maternal Relatives, Paternal Relatives(V49.89, Z78.9) Status:Active Unknown Family Member Name Dates Details No pertinent family history: Maternal Relatives, Paternal Relatives(V49.89, Z78.9) Status:Active Unknown Family Member Name Dates Details No pertinent family history: Maternal Relatives, Paternal Relatives(V49.89, Z78.9) Status:Active Unknown Family Member Name Dates Details No pertinent family history: Maternal Relatives, Paternal Relatives(V49.89, Z78.9) Status:Active Unknown Family Member Name Dates Details No pertinent family history: Maternal Relatives, Paternal Relatives(V49.89, Z78.9) Status:Active Unknown Family Member Name Dates Details No pertinent family history: Maternal Relatives, Paternal Relatives(V49.89, Z78.9) Status:Active Unknown Family Member Name Dates Details No pertinent family history: Maternal Relatives, Paternal Relatives(V49.89, Z78.9) Status:Active Unknown Family Member Name Dates Details No pertinent family history: Maternal Relatives, Paternal Relatives(V49.89, Z78.9) Status:Active Unknown Family Member Name Dates Details No pertinent family history: Maternal Relatives, Paternal Relatives(V49.89, Z78.9) Status:Active Unknown Family Member Name Dates Details No pertinent family history: Maternal Relatives, Paternal Relatives(V49.89, Z78.9) Status:Active Unknown Family Member Name Dates Details No pertinent family history: Maternal Relatives, Paternal Relatives(V49.89, Z78.9) Status:Active Unknown Family Member Name Dates Details No pertinent family history: Maternal Relatives, Paternal Relatives(V49.89, Z78.9) Status:Active Unknown Family Member Name Dates Details No pertinent family history: Maternal Relatives, Paternal Relatives(V49.89, Z78.9) Status:Active Unknown Family Member Name Dates Details No pertinent family history: Maternal Relatives, Paternal Relatives(V49.89, Z78.9) Status:Active Unknown Family Member Name Dates Details No pertinent family history: Maternal Relatives, Paternal Relatives(V49.89, Z78.9) Status:Active Unknown Family Member Name Dates Details No pertinent family history: Maternal Relatives, Paternal Relatives(V49.89, Z78.9) Status:Active Unknown Family Member Name Dates Details No pertinent family history: Maternal Relatives, Paternal Relatives(V49.89, Z78.9) Status:Active Unknown Family Member Name Dates Details No pertinent family history: Maternal Relatives, Paternal Relatives(V49.89, Z78.9) Status:Active Advance Directives No Advanced Directives Records FoundDocuments on File Type Date Recorded 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 Advance Directive(s) 12/13/2021 9:35 AM Advance Directive(s) 08/10/2020 7:21 AM M dorian infusion Advance Directive(s) 08/10/2020 7:20 AM Advance Directive(s) 08/03/2020 1:49 PM Advance Directive(s) 11/23/2016 9:39 AM Advance Directive(s) 11/22/2016 9:26 AM Advance Directive(s) 05/24/2016 1:39 PM Advance Directive(s) 12/13/2011 12:00 AM Advance Directive(s) 12/01/2006 12:00 AM Documents on File Type Date Recorded 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 * Reason for Visit: PFT, ABG, SST. * Appointment requested by: Dr. Weber; PCP: Gertrude Wilson. * TEMO GARRISON is here for a follow-up visit. * Reason for Visit: PFT, ABG, SST. * Appointment requested by: Dr. Weber; PCP: Gertrude Wilson. * TEMO GARRISON is here for a follow-up visit. * Reason for Visit: PFT, ABG, SST. * Appointment requested by: Dr. Weber; PCP: Gertrude Wilson. NPV-ROSITA.NPV-ROSITA. Additional Source Comments (unrecognized sect ion and content) No Status Records FoundNo Status Records FoundNo Status Records FoundNo Status Records FoundNo Status Records FoundNo Status Records FoundNo Status Records FoundNo Status Records FoundNo Status Records FoundNo Status Records Found INFORMATION SOURCE (unrecogn ized section and content) DATE CREATED AUTHOR AUTHOR'S ORGANIZ ATION 04/10/2018 [facility] ([place]) DATE CREATED AUTHOR AUTHOR'S ORGANIZ ATION 10/13/2018 [facility] DATE CREATED AUTHOR AUTHOR'S ORGANIZ ATION 01/06/2021 [facility] DATE CREATED AUTHOR AUTHOR'S ORGANIZ ATION 10/03/2021 [facility] DATE CREATED AUTHOR AUTHOR'S ORGANIZ ATION 12/15/2021 [facility] DATE CREATED AUTHOR AUTHOR'S ORGANIZ ATION 02/28/2023 [facility] DATE CREATED AUTHOR AUTHOR'S ORGANIZ ATION 02/28/2023 [facility] DATE CREATED AUTHOR AUTHOR'S ORGANIZ ATION 06/03/2023 [facility] DATE CREATED AUTHOR AUTHOR'S ORGANIZ ATION 10/06/2023 [facility] Reason for Visit (unrecogniz ed section and content) Reason Comments EGD follow up Gas Reason Comments Patient Update Patient Question Reason Comments Refill Request Reason Comments Appointment Reason Comments Consult colonoscopy Reason Comments Pain Specialty Diagnoses / Procedures Referred By Leatha t Referred To Contact Multispecialty Diagnoses Other chronic pain Malick Christie MD [address] [place] [address] [facility] [address] [place] [address] Referral ID Status Reason Start Date Expiration Date V isits Requested Visits Authorized [id number] New Request 04/11/2023 05/05/2024 1 1 Reason Comments Procedure BANDING Reason Onset Date Comments Refill Request 09/13/2023 Source Comments (unrecognize d section and content) In the event this informatio n is protected by the Federal Confidentiality of Alcohol and Drug Abuse Patient Records regulations: The Federal rules restrict any use of the information to criminally investigate or prosecute any alcohol or drug abuse patient.[facility] Hospital[facility] the event this information is protected by the Federal Confidentiality of Alcohol and Drug Abuse Patient Records regulations: The Federal rules restrict any use of the information to criminally investigate or prosecute any alcohol or drug abuse patient.[facility] HospitalIn the event this information is protected by the Federal Confidentiality of Alcohol and Drug Abuse Patient Records regulations: The Federal rules restrict any use of the information to criminally investigate or prosecute any alcohol or drug abuse patient.[facility] HospitalIn the event this information is protected by the Federal Confidentiality of Alcohol and Drug Abuse Patient Records regulations: The Federal rules restrict any use of the information to criminally investigate or prosecute any alcohol or drug abuse patient.[facility] HospitalIn the event this information is protected by the Federal Confidentiality of Alcohol and Drug Abuse Patient Records regulations: The Federal rules restrict any use of the information to criminally investigate or prosecute any alcohol or drug abuse patient.[facility] HospitalIn the event this information is protected by the Federal Confidentiality of Alcohol and Drug Abuse Patient Records regulations: The Federal rules restrict any use of the information to criminally investigate or prosecute any alcohol or drug abuse patient.[facility] HospitalIn the event this information is protected by the Federal Confidentiality of Alcohol and Drug Abuse Patient Records regulations: The Federal rules restrict any use of the information to criminally investigate or prosecute any alcohol or drug abuse patient.[facility] HospitalIn the event this information is protected by the Federal Confidentiality of Alcohol and Drug Abuse Patient Records regulations: The Federal rules restrict any use of the information to criminally investigate or prosecute any alcohol or drug abuse patient.[facility] HospitalIn the event this information is protected by the Federal Confidentiality of Alcohol and Drug Abuse Patient Records regulations: The Federal rules restrict any use of the information to criminally investigate or prosecute any alcohol or drug abuse patient.[facility] HospitalIn the event this information is protected by the Federal Confidentiality of Alcohol and Drug Abuse Patient Records regulations: The Federal rules restrict any use of the information to criminally investigate or prosecute any alcohol or drug abuse patient.[facility] Care Teams (unrecognized sec tion and content) [employer] Observer Relationship Specialty Start Date End Date Monserrat Wilson [address] [place] [address] PCP - General Family Practice 06/26/18 [employer] Observer Relationship Specialty Start Date End Date Monserrat Wilson [address] [place] [address] PCP - General Family Practice 06/26/18 [employer] Observer Relationship Specialty Start Date End Date Monsrerat Wilson [address] [place] [address] PCP - General Family Medicine 06/26/18 [employer] Observer Relationship Specialty Start Date End Date Monserrat Wilson [address] [place] [address] PCP - General Family Medicine 06/26/18 [employer] Observer Relationship Specialty Start Date End Date Monserrat Wilson MD [address] [place] [place], [place] [address] PCP - General Family Medicine 06/26/18 [employer] Observer Relationship Specialty Start Date End Date Monserrat Wilson MD [address] [place], [place] [id number] PCP - General Family Medicine 06/26/18 [employer] Observer Relationship Specialty Start Date End Date Malick Christie [address] [place] [address] PCP - General Family Medicine 05/18/23 [employer] Observer Relationship Specialty Start Date End Date Malick Christie MD [address] [place] [address] PCP - General Family Medicine 05/18/23 [employer] Observer Relationship Specialty Start Date End Date Malick Christie MD [address] [place] [address] PCP - General Family Medicine 05/18/23 FOR RECORDS PERTAINING TO PATIENTS WHO ARE OR HAVE BEEN ENROLLED IN A CHEMICAL DEPENDENCY/SUBSTANCEABUSE PROGRAM, SOME INFORMATION MAY BE OMITTED. This clinical summary was aggregated from multiple sources. Caution should be exercised in using it in the provision of clinical care. This summary normalizes information from multiple sources, and as a consequence, information in this document may materially change the coding, format and clinical context of patient data. In addition, data may be omitted in some cases. CLINICAL DECISIONS SHOULD BE BASED ON THE PRIMARY CLINICAL RECORDS. [facility]. provides no warranty or guarantee of the accuracy or completeness of information in this document.
== END | disposition home or self-care (01) ==
LOC: CVS 08:33
PROVIDERS: PCP Family Medicine; Referring Provider Podiatrist Foot & Ankle Surgery; Visit Provider Podiatrist Foot & Ankle Surgery
DX: I73.89 Other specified peripheral vascular diseases (principal); M79.605 Pain in left leg; M79.604 Pain in right leg
CPT/HCPCS: 93923; 93970

== ENCOUNTER → 2023-11-22 | Outpatient (CLI) | payer MEDICARE, SELFPAY ==
--- NOTE | 2023-11-22 14:44 | CT_ITS ---
STUDY: CT ABDOMEN AND PELVIS WITH CONTRAST REASON FOR EXAM: Male, 82 years old. Abdominal pain and mass RADIATION DOSAGE (If Supplied By Facility): CTDIvol = ( 12.09 ) mGy, DLP = ( 960.03 ) mGycm TECHNIQUE: Transaxial images were obtained from the dome of the diaphragm to the symphysis pubis with oral contrast. Oral and amp; IV Readi-CAT and amp; 75mL Isovue-300 was administered. Sagittal and coronal images were reconstructed. Individualized dose optimization techniques were used for this CT. COMPARISON: Comparison is made with prior study dated May 12, 2022. FINDINGS: The visualized lung bases are unremarkable. Coronary artery calcification. There is decreased attenuation of the liver consistent with steatosis. Normal gallbladder and extrahepatic biliary system. Normal spleen. There is diffuse atrophy of the pancreas. Normal bilateral adrenal glands. Normal right kidney. Normal left kidney. Normal visualized stomach. Normal small intestine. There are scattered colonic diverticula consistent with diverticulosis. The appendix is visualized and appears normal. There is diffuse atherosclerotic calcification of the abdominal aorta. Mildly dilated distal abdominal aorta transverse dimension of 29 mm.. Normal inferior vena cava. Normal retroperitoneum. Mild degree of the urinary bladder wall thickening although the bladder is not completely distended at this time. Normal abdominal wall. There are degenerative changes of the visualized lumbar spine. CT/Abdomen/Pelvis WITH Contrast IMPRESSION: Fatty infiltration of the liver. Pancreatic atrophy. Sigmoid diverticulosis. Electronically Signed: Adrien Call MD at 15:22 EST ,
--- OUTSIDE RECORDS SUMMARY | 2023-11-22 18:52 | XMS RPT_ITS | CCD ---
Author Name Unknown Address [address] [place] [address] Organization [facility] Care Team Providers Care Inventory Associate Name Role Phone Yulia Doll Unavailable Jeovany [...] Unavailable Unavailable Monserrat Wilson Primary Care Provider Monserrat Wilson Primary Care Provider Monserrat Wilson Primary Care Provider Monserrat Wilson MD Primary Care Provider Justin Dial Attending Unavailable Dr. Monserrat Wilson Primary Care Dr. Delmi Yusufh Zayda Referring Unavai lable Zakhary, Justin Attending Unavailable Zaharvey, Justin Referring Unavailable Miedyaw, Dr. Monserrat Priset Primary Care Unavai lable Zakhary, Justin Attending Unavailable Zakhary, Mahindine Referring Unavailable Miedyaw, Dr. Monserrat Priest Primary Care Unavai lable Marciaharvey, Justin Attending Unavailable Steve, Dr. Monserrat Priest Primary Care Unavai lable Marbellael, Dr. Monserrat Priest Referring Unavai lable Miedel, Dr. Monserrat Priest Primary Care Unavai lable Danielamarianna, Justin Attending Unavailable Steve, Dr. Monserrat Priest Referring Unavai lable Malick Christie Primary Care Provider [phone] Unavailable Primary Care Provider UnavailJUSTINO Pierre Attending [...] (2 sources) alfuzosin; Translations: [Uroxatral] Drug Allergy [facility] 204 Work Phone: Cholesterol Absorption Inhibitors (1 source) ezetimibe; Translations: [Zetia] [facility] Work Phone: HMG-CoA Reductase Inhibitors (statins) (1 source) Simvastatin; Translations: [Zocor] Drug Allergy TO-Ytbupsqmn-A arma 204 Work Phone: NSAIDs (2 sources) celecoxib; Translations: [CeleBREX CAPS] Drug Allergy GS-Spldmqyre-Y arma 204 Work Phone: Pramipexole (1 source) Pramipexole; Translations: [Mirapex] Drug Allergy UE-Cxpukulun-W arma 204 Work Phone: (20 sources) alfuzosin; Translations: [Uroxatral] Drug Allergy RG-Vchltshux-T arma 204 Work Phone: (20 sources) celecoxib; Translations: [CeleBREX CAPS] Drug Allergy 2 Unknown [facility] (20 sources) ezetimibe; Translations: [ZETIA] Drug Allergy [facility] Repository (20 sources) meloxicam; Translations: [MELOXICAM] Drug Allergy 0 Unknown [facility] Repository (20 sources) Pramipexole; Translations: [MIRAPEX] Drug Allergy [facility] Repository (20 sources) Simvastatin; Translations: [ZOCOR] Drug Allergy [facility] Repository (20 sources) tamsulosin; Translations: [tamsulosin] Drug Allergy 0 Intolerance, Syncope [facility] (1 source) celecoxib Drug Allergy [facility] Repository (11 sources) alfuzosin; Translations: [ALFUZOSIN HCL] Drug Allergy 7 Other: See Comments [facility] (11 sources) ezetimibe; Translations: [EZETIMIBE] Drug Allergy 5 Other: See Comments [facility] (11 sources) Pramipexole; Translations: [PRAMIPEXOLE] Drug Allergy 0 Intolerance [facility] (12 sources) Simvastatin; Translations: [SIMVASTATIN] Drug Allergy 5 Other: See Comments [facility] (1 source) ezetimibe Drug Allergy 0 [facility] (1 source) Pramipexole Drug Allergy 0 [facility] (1 source) celecoxib; Translations: [CELECOXIB] Drug Allergy 2 [facility] Repository Medications Current Medications Medication Drug Class(es) [...] 05-09-2011 Episodic Other aftercare (1 source) Other m[facility]p (current) drug therapy; Translations: [Other intermediate manager (current) drug therapy] Onset: 10-17-2022 Episodic Other aftercare (1 source) jail (current) use of oral hypoglycemic drugs; Translations: [exterminator (current) use of oral hypoglycemic drugs] Onset: [...] 172.7 cm Justino Rader MD Work Phone: [facility] 05-30-2023 12:47-0400 Body mass index (BMI) [Ratio] 27.06 kg/m2 Justino Rader MD Work Phone: [facility] 05-30-2023 12:47-0400 Body temperature 96.91 [degF] Justino Rader MD Work Phone: [facility] 05-30-2023 12:47-0400 Body weight 80.74 kg Justino Rader MD Work Phone: [facility] 05-30-2023 12:47-0400 Heart rate 62 /min Justino Rader MD Work Phone: [facility] 05-30-2023 12:47-0400 SaO2% (BldA) [Mass fraction] 97 % Justino Rader MD Work Phone: [facility] 05-18-2023 15:22-0400 Body height 172.7 cm Belén Bernal PA-C Work Phone: [facility] 05-18-2023 15:22-0400 Body temperature 97.3 [degF] Belén Dolores PA-C Work Phone: [facility] 05-18-2023 15:22-0400 Body weight 81.65 kg Belén Dolores PA-C Work Phone: [facility] 05-18-2023 15:22-0400 Diastolic blood pressure 82 mm[Hg] Belén Lehigh PA-C Work Phone: [facility] 05-18-2023 15:22-0400 Heart rate 104 /min Belén Lehigh PA-C Work Phone: [facility] 05-18-2023 15:22-0400 SaO2% (BldA) [Mass fraction] 99 % Belén Dolores PA-C Work Phone: [facility] 05-18-2023 15:22-0400 Systolic blood pressure 136 mm[Hg] Belén Lozaf PA-C Work Phone: [facility] 02-27-2023 15:01-0400 Diastolic blood pressure 83 mm[Hg] Monserrat E Miedel Work Phone: [employer] [facility] A2470 DO Work Phone: 02-27-2023 15:01-0400 Heart rate 84 /min Monserrat E Miedel Work Phone: [facility] [facility] A2470 DO Work Phone: 02-27-2023 15:01-0400 Respiratory rate 18 /min Monserrat E Miedel Work Phone: [facility] A2470 DO Work Phone: 02-27-2023 15:01-0400 Systolic blood pressure 124 mm[Hg] Monserrat E Miedel Work Phone: [facility] A2470 DO Work Phone: 11-21-2022 15:02-0500 Body height 173.99 cm Monserrat Domignoedel Work Phone: [facility] 2300 Work Phone: 11-21-2022 15:02-0500 Body mass index (BMI) [Ratio] 25.92 kg/m2 Monserrat Cross Miedel Work Phone: [facility] 2300 Work Phone: 11-21-2022 15:02-0500 Body surface area Derived from formula 1.93 m2 Monserrat Domingoedel Work Phone: [facility]00 Work Phone: 11-21-2022 15:02-0500 Body weight 78.47 kg Monserrat Domingoedel Work Phone: [facility] 2300 Work Phone: 11-21-2022 15:02-0500 Diastolic blood pressure 69 mm[Hg] Monserrat Cross Miedel Work Phone: [facility]00 Work Phone: 11-21-2022 15:02-0500 Heart rate 92 /min Monserrat Crsos Miedel Work Phone: [facility]00 Work Phone: 11-21-2022 15:02-0500 Respiratory rate 18 /min Monserrat Cross Miedel Work Phone: [facility]00 Work Phone: 11-21-2022 15:02-0500 SaO2% (BldA) [Mass fraction] 98 % Monserrat Cross Miedel Work Phone: [facility] 2300 Work Phone: 11-21-2022 15:02-0500 Systolic blood pressure 119 mm[Hg] Monserrat Cross Miedel Work Phone: [facility]00 Work Phone: 12-16-2021 16:12-0500 Body mass index (BMI) [Ratio] 27.91 kg/m2 Monserrat Cross Miedel Work Phone: [facility] A2470 DO Work Phone: 12-16-2021 16:12-0500 Body surface area Derived from formula 2.02 m2 Monserrat Cross Miedel Work Phone: [facility] A2470 DO Work Phone: 12-16-2021 16:12-0500 Body weight 85.73 kg Monserrat Domingoedel Work Phone: [facility] A2470 DO Work Phone: 12-16-2021 16:12-0500 Diastolic blood pressure 93 mm[Hg] Monserrat Domingoedel Work Phone: [facility] A2470 DO Work Phone: 12-16-2021 16:12-0500 Heart rate 83 /min Monserrat Domingoedel Work Phone: [facility] A2470 DO Work Phone: 12-16-2021 16:12-0500 SaO2% (BldA) [Mass fraction] 98 % Monserrat Domingoedel Work Phone: [facility] A2470 DO Work Phone: 12-16-2021 16:12-0500 Systolic blood pressure 132 mm[Hg] Monserrat Cross Miedel Work Phone: [facility] A2470 DO Work Phone: 12-16-2021 16:12-0500 0 1 Monserrat E Miedel Work Phone: [facility] A2470 DO Work Phone: Encounters Encounter Date Encounter Type Care Provider Facility Start: 10-04-2023 End: 10-04-2023 ambulatory [facility] Facility:[facility] Start: 09-13-2023 Refill Smith schaffer MD Work [...] Detail Author Start: 08-18-2029 Tetanus vaccination TETANUS [facility] Start: 08-18-2029 Urine microalbumin profile DTaP,Tdap,Td Vaccine (4 - Td or Tdap) [facility] Start: 06-16-2023 Covid-19 Vaccine ( season) Covid-19 Vaccine ( season) [facility] Start: 06-16-2023 Influenza vaccination [facility] Start: 11-13-2022 COVID-19 VACCINE (6 - Pfizer series) COVID-19 VACCINE (6 - Pfizer series) [facility] Start: 10-16-2022 ADVANCE DIRECTIVE DISCUSSION ADVANCE DIRECTIVE DISCUSSION [facility] Start: 10-16-2022 DEPRESSION ASSESSMENT DEPRESSION ASS ESSMENT [facility] Start: 06-16-2022 Influenza vaccination INFLUENZA (#1) [facility] Start: 11-14-2021 COVID-19 VACCINE (4 - Booster for Pfizer series) COVID-19 VACCINE (4 - Booster for Pfizer series) [facility] Start: 11-01-2021 NPVSLEEP, Provider: Justin Dial, Status: Pen, Time: 4:00 PM NPVSLEEP, Provider: Justin Dial, Status: Pen, Time: 4:00 PM OU-Bjsveoisnbzqpb-Gdw ma MAC1 205 [place] Work Phone: Start: 11-01-2021 FUVGENERAL, Provider : Malick Weber, Status: Pen, Time: 9:00 AM FUVGENERAL, Provider: Malick Weber, Status: Pen, Time: 9:00 [facility] Work Phone: Start: 10-16-2021 ADVANCE DIRECTIVE DISCUSSION ADVANCE DIRECTIVE DISCUSSION [facility] Start: 10-16-2021 DEPRESSION ASSESSMENT DEPRESSION ASS ESSMENT [facility] Start: 10-14-2021 FUV, Provider: Temo Huitron, Status: Pen, Time: 9:00 AM FUV, Provider: Temo Huitron, Status: Pen, Time: 9:00 AM [facility] 400 DO Work Phone: Start: 09-28-2021 PFT, Provider: [facility] PFT ROOM,[id number], Status: Pen, Time: 10:00 AM PFT, Provider: TIGRE PFT ROOM,[id number], Status: Pen, Time: 10:00 AM [facility] 400 DO Work Phone: Start: 09-15-2021 NPV, Provider: Temo Huitron, Status: Pen, Time: 9:00 AM NPV, Provider: Temo Huitron, Status: Pen, Time: 9:00 AM [facility] Work Phone: Start: 09-02-2021 NPV, Provider: Florina Segovia, Status: Pen, Time: 10:40 AM NPV, Provider: Florina Segovia, Status: Pen, Time: 10:40 AM [facility] 204 Work Phone: Start: 08-05-2021 NPV, Provider: Florina Segovia, Status: Pen, Time: 10:20 AM NPV, Provider: Florina Segovia, Status: Meng, Time: 10:20 AM [facility] Work Phone: Start: 06-16-2021 Influenza vaccination INFLUENZA (#1) [facility] Start: 06-01-2021 SERUM CREATININE SERUM CREATININE Cl [facility] Start: 11-27-2020 Urine microalbumin profile DTAP,TDAP,TD (3 - Td or Tdap) [facility] Start: 10-13-2020 Sleep std airflow hr t rate&o2 sat effort unatt Home Sleep Apnea Test JK-Tvhyuumcb-Ghgex 204 Work Phone: Start: 04-28-2020 Hemoglobin A1c/Hemoglobin.total in Blood HBA1C [facility] Start: 02-28-2020 Hepatitis C antibody , confirmatory test DILATED RETINAL EXAM [facility] Start: 07-03-2019 Adult depression screening assessment DEPRESSION SCREENING [facility] Start: 01-25-2019 ANNUAL PCP TEAM CHRONIC DISEASE VISIT ANNUAL PCP TEAM CHRONIC DISEASE VISIT [facility] Start: 12-07-2018 Hepatitis B screening URINE ALBUMIN:CREATININE RATIO [facility] Start: 09-22-2018 Hepatitis B surface antibody level LDL CHOLESTEROL [facility] Start: 06-01-2018 HEMOGLOBIN/HEMATOCRIT HEMOGLOBIN/HEM ATOCRIT [facility] Start: 08-24-2017 End: 08-24-2017 Appointment Appointment [facility] Work Phone: Start: 2001 Hepatitis B Vaccine (1 of 3 - Risk 3-dose series) Hepatitis B Vaccine (1 of 3 - Risk 3-dose series) [facility] Start: 2001 RSV Vaccine (1 - 1-dose 60+ series) RSV Vaccine (1 - 1-dose 60+ series) [facility] Start: 1991 SHINGRIX VACCINE (1 of 2) SHINGRIX VACCINE (1 of 2) [facility] Start: 1986 Screening for malignant neoplasm of colon COLORECTAL CANCER SCREENING DISCUSSION [facility] Start: 1959 BP CONTROLLED (<130/80) BP CONTROLLED (<130/80) [facility] Start: 1951 3 comp foot exam completed DIABETIC FOOT EXAM [facility] Start: 06-08-1942 COVID-19 VACCINE (#1) COVID-19 VACCI NE (#1) [facility] NEGATED: Highlighted row has been ruled out! Planned Goals not documented NN-Nnjubidsp-Kkrfl 204 Work Phone: Immunizations Immunization Date Immunization Notes Care Provider Beto hansenadam 07-14-2022 Pfizer COVID-19 Vac Bivalent 30 MCG/0.3ML Intramuscular Suspension Monserrat E Miedel Work Phone: [facility] [employer] 2305 Work Phone: 07-05-2022 Fluad Quadrivalent 0 .5 ML Intramuscular Prefilled Syringe Monserrat E Miedel Work Phone: [facility]00 Work Phone: 07-05-2022 influenza virus vacc ine, unspecified formulation Justino Rader MD Work Phone: [facility] 03-07-2022 Comirnaty 30 MCG/0.3 ML Intramuscular Suspension Monserrat E Miedel Work Phone: [facility] 204 Work Phone: 08-17-2021 zoster vaccine recombinant Monserrat E Miedel Work Phone: [facility] [employer] [facility] A2470 DO Work Phone: 07-15-2021 Pfizer-BioNTech COVI D-19 Vacc 30 MCG/0.3ML Intramuscular Suspension Monserrat E Miedel Work Phone: [facility] 400 DO Work Phone: Payers Date Payer Category Payer Medicare AETNA MEDICARE A ETNA MEDICARE PPO [id number] 2021-Present [phone] [address] [place] [address] O [id number] 2021 Medicare AETNA MEDICARE A ETNA MEDICARE PPO [id number] 2021-Present [phone] [address] [place] [address] PPO [id number] 2017 Private Health Insurance 2013 Medicare [id number] 2013 Private Health Insurance [id number] 1941 Unknown [id number] 1941 Unknown [id number] 51 1941 Unknown [id number] 51 1941 Unknown [id number] 56 1941 Unknown [id number] 56 1941 Unknown [id number] 56 1941 Unknown [id number] 56 1941 Unknown [id number] 56 1941 Unknown [id number] 94 1941 Unknown [id number] 94 Medicare [id number] Unknown Social History Date Type Detail Facility Start: 08-10-2020 End: 09-20-2020 Never a smoker Never a smoker [facility] Medical Equipment Procedure Code Equipment Code Equipment Origin al Text Equipment Identifier Dates Generator Implan table Pulse - [id number] Start: 12-02-2016 Lead Upper Airwa y Stimulation - [id number] Start: 12-02-2016 Lead Respiratory Sensing - [id number] Start: 12-02-2016 Start: 11-23-2018 Functional Status Date Assessment Result Facility NEGATED: Highlighted row Functional performance Functional status health issues are not documented Disease UG-Gemszzfjn-Zewjs 204 Work Phone: Mental Status Date Assessment Result Facility NEGATED: Highlighted row Cognitive function [Interpretation] Cognitive status health issues are not documented Disease MM-Rgxzlxkbp-Fzomw 204 Work Phone: Clinical Notes 12-17-2014 to 10-04-2023 Telephone Encounter - Dayanara Mandujano RN - 09/13/2023 10:15 AM Smith Salazar MD - 06/08/2023 12:21 PM EDTPatient Urszula Baires LPN - 06/08/2023 12:09 PM EDT Note Date & Type Note Facility 10-04-2023 Note HNO ID: [id number] Author: Clair Asher RT(R) Service: ? 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 Author Type: Physician Boating Safety Officer Type: Progress Notes Filed: 10/04/2023 3:04 PM [...] Dr. Berry Chronic kidney disease, stage 3 ([facility]) Seeing Dr. Moss DDD (degenerative disc disease), cervical DDD (degenerative disc disease), lumbar Seeing Dr. Thayer Diarrhea Diverticulosis of colon (without mention of hemorrhage) DVT (deep venous thrombosis) ([facility]) 08/06/2020 Essential tremor External hemorrhoids without mention [...] complication, without long-term current use of insulin ([facility]) 06/07/[address] 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 lancets (Snehta LANCETS) 30 gauge misc Use as directed to test glucose 3 times weekly. DX: E11.9 dupilumab (DUPIXENT SUBCUTANEOUS) Inject subcutaneously as needed (taking every three weeks). 08/17/2021 reported taking every 3 weeks cyanocobalamin, vitamin B-12, (VITAMIN B-12 INJECTION) by INJECTION(UNSPECIFIED PARENTERAL ROUTES) route once every month. blood sugar diagnostic (Witel VERIO) test strip USE ONE STRIP TO CHECK GLUCOSE ONCE DAILY losartan (COZAAR) 25 mg tablet TAKE 1 TABLET DAILY ketoconazole (NIZORAL) 2 % shampoo Apply 1 application to affected area once daily as needed. atorvastatin (LIPITOR) 20 mg tablet Take 1 tablet by mouth once daily. Blood-Glucose Meter (Witel VERIO SYSTEM) misc Use as directed. Cholecalciferol, Vitamin D3, 2,000 unit ORAL Cap Take 2,000 Units by mouth. ascorbic acid(VITAMIN C 500 MG TAB) Take one (1) tablet twice daily. FAMILY HISTORY Problem Relation Age of Onset Diabetes Father other (down'ssyndrome) Brother Hypertension Mother other (Other) Mother Acute Renal Failure/AAA other (Aortic aneurysm) Mother Ischemic Heart Disease Brother 58 MO Alcohol/Drug Brother Breast Cancer Sister Diabetes Maternal Grandmother Rheumatologic disease Maternal Grandfather Anesthesia Problems No Family History Social History Tobacco Use Smoking status: Former Packs/day: 0.50 Years: 20.00 Additional pack years: 0.00 Total pack years: 10.00 Types: Cigarettes Quit date: 10/16/1975 Years since quittin.0 Smokeless tobacco: Never Tobacco comments: QUIT 1975 Vapi (more content not included)... [facility] 09-13-2023 Miscellaneous Notes Physician: Dr. Villavicencio Call from patient requesting refill. Please E-Scribe 30-day supply. Last OV: 06/08/[address] Villavicencio Future OV: None Scheduled Requested Prescriptions Pending Prescriptions Disp Refills omeprazole (PRILOSEC) 40 mg capsule 30 capsule 0 Sig: Take 1 capsule by mouth once daily. Pharmacy Name: [facility] Phone #: Dayanara Mandujano RN documented in this encounter [facility] 06-08-2023 Note HNO ID: [id number] Author: Smith Villavicencio MD Service: ? Author Type: Physician Type: Progress Notes Filed: 06/08/2023 12:24 PM Note Text: FOLLOW UP VISIT - HEMORRHOID BANDING NAME: Temo Rajput [facility] NO.: [id number] DATE OF SERVICE: 06/08/2023 : 1940 REFERRING [...] month if persistent bleeding. Smith Villavicencio MD [facility] 06-08-2023 History of Present illness Narrative FOLLOW UP VISIT - HEMORRHOID BANDING NAME: Temo Garrison [facility] NO.: [id number] DATE OF SERVICE: 06/08/2023 : 1940 REFERRING [...] Smith Villavicencio MD documented in this encounter [facility] 06-08-2023 Instructions Urszula Quinn LPN - [...] feel free to call our office at [phone] and ask to be transferred to General Surgery. Thank you for choosing [facility] - General Surgery. 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 documented in this encounter [facility] 05-30-2023 Instructions Justino Rader MD - 05/30/2023 1:00 PM EDT The device we talked about is called a Theracane. documented in this encounter [facility] 05-18-2023 Note HNO ID: [id number] Author: Belén Bernal PA-C Service: ? Author Type: Physician Boating Safety Officer Type: Progress Notes Filed: 05/29/2023 7:56 AM [...] Dr. Berry Chronic kidney disease, stage 3 ([facility]) Seeing Dr. Moss DDD (degenerative disc disease), cervical DDD (degenerative disc disease), lumbar Seeing Dr. Thayer Diarrhea Diverticulosis of colon (without mention of hemorrhage) DVT (deep venous thrombosis) ([facility]) 08/06/2020 Essential tremor External hemorrhoids without mention [...] complication, without long-term current use of insulin ([facility]) 06/07/[address] 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 lancets (Witel DELICA LANCETS) 30 gauge misc Use as directed to test glucose 3 times weekly. DX: E11.9 dupilumab (DUPIXENT SUBCUTANEOUS) Inject subcutaneously as needed (taking every three weeks). 08/17/2021 reported taking every 3 weeks cyanocobalamin, vitamin B-12, (VITAMIN B-12 INJECTION) by INJECTION(UNSPECIFIED PARENTERAL ROUTES) route once every month. blood sugar diagnostic (Calligo) test strip USE ONE STRIP TO CHECK GLUCOSE ONCE DAILY losartan (COZAAR) 25 mg tablet TAKE 1 TABLET DAILY ketoconazole (NIZORAL) 2 % shampoo Apply 1 application to affected area once daily as needed. atorvastatin (LIPITOR) 20 mg tablet Take 1 tablet by mouth once daily. Blood-Glucose Meter (Witel VERIO SYSTEM) [facility] Use as directed. Cholecalciferol, Vitamin D3, 2,000 unit ORAL Cap Take 2,000 Units by mouth. ascorbic acid(VITAMIN C 500 MG TAB) Take one (1) tablet twice daily. No current facility-administered medications for this visit. ALLERGIES: Flomax [Tamsulosin], Celecoxib, Meloxicam, Mirapex [Pramipexole], Uroxatral [Alfuzosin H (more content not included)... [facility] 05-18-2023 Nurse Note REVIEW OF SYSTEMS: General: [...] Jena Webb RN documented in this encounter [facility] 05-18-2023 History of Present illness Narrative [...] Dr. Berry Chronic kidney disease, stage 3 ([facility]) Seeing Dr. Moss DDD (degenerative disc disease), cervical DDD (degenerative disc disease), lumbar Seeing Dr. Thayer Diarrhea Diverticulosis of colon (without mention of hemorrhage) DVT (deep venous thrombosis) ([facility]) 08/06/2020 Essential tremor External hemorrhoids without mention [...] complication, without long-term current use of insulin ([facility]) 06/07/[address] 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 lancets (Snehta LANCETS) 30 gauge misc Use as directed to test glucose 3 times weekly. DX: E11.9 dupilumab (DUPIXENT SUBCUTANEOUS) Inject subcutaneously as needed (taking every three weeks). 08/17/2021 reported taking every 3 weeks cyanocobalamin, vitamin B-12, (VITAMIN B-12 INJECTION) by INJECTION(UNSPECIFIED PARENTERAL ROUTES) route once every month. blood sugar diagnostic (Witel VERIO) test strip USE ONE STRIP TO CHECK GLUCOSE ONCE DAILY losartan (COZAAR) 25 mg tablet TAKE 1 TABLET DAILY ketoconazole (NIZORAL) 2 % shampoo Apply 1 application to affected area once daily as needed. atorvastatin (LIPITOR) 20 mg tablet Take 1 tablet by mouth once daily. Blood-Glucose Meter (Witel VERIO SYSTEM) misc Use as directed. Cholecalciferol, [...] aneurysm) Mother Ischemic Heart Disease Brother 58 MO Alcohol/Drug Brother Breast Cancer Sister Diabetes Maternal Grandmother Rheumatologic disease Maternal Grandfather Anesthesia Problems No Family History REVIEW OF SYMPTOMS: The review of systems data was entered by the nurse and reviewed by az Nursing Notes: Jena Webb RN 05/18/2023 3:22 [...] Belén Bernal PA-C documented in this encounter [facility] 02-17-[address] Baron, Patient has never seen you in the office, nor have you done a procedure on him. Not sure why this refill is being sent to you. Please advise. Robyn Duke RN documented in this encounter [facility] 02-15-2023 Miscellaneous Notes First attempt to reach patient. No VM left. Katherine Gao February 15, 2023 6:30 PM documented in this encounter [facility] 09-16-2022 Miscellaneous Notes Patient phones requesting refills as follows: Requested Prescriptions Pending Prescriptions Disp Refills omeprazole (PRILOSEC) 40 mg capsule [Pharmacy Med Name: OMEPRAZOLE DR CAPS 40MG] 90 capsule 0 Sig: TAKE 1 CAPSULE DAILY Please review and advise. Julia Ramirez Ma documented in this encounter [facility] 08-29-2022 Miscellaneous Notes Returned patient's call [...] to no relief. Patient uses [facility] in [place]. Please advise and call patient. documented in this encounter [facility] 01-05-2022 History of Present illness Narrative [...] Dr. Berry Chronic kidney disease, stage 3 ([facility]) Seeing Dr. Moss DDD (degenerative disc disease), cervical DDD (degenerative disc disease), lumbar Seeing Dr. Thayer Diarrhea Diverticulosis of colon (without mention of hemorrhage) DVT (deep venous thrombosis) ([facility]) 08/06/2020 Essential tremor External hemorrhoids without mention [...] complication, without long-term current use of insulin ([facility]) 06/07/[address] 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 lancets (Witel DELOtterology LANCETS) 30 gauge misc Use as directed to test glucose 3 times weekly. DX: E11.9 100 Each 3 cyanocobalamin, vitamin B-12, (VITAMIN B-12 INJECTION) by INJECTION(UNSPECIFIED PARENTERAL ROUTES) route once every month. sitaGLIPtin (JANUVIA) 50 mg tablet Take 1 tablet by mouth once daily. 90 tablet 3 blood sugar diagnostic ([employer]CH VERIO) test strip USE ONE STRIP TO [...] tablet 1 Blood-Glucose Meter (ONETOUCH VERIO SYSTEM) [facility] Use as directed. 1 Each 0 Cholecalciferol, [...] with more than 50% of the total slwm-jb-purk time of the visit in counseling / coordination of care. I have confirmed and edited as necessary, the PFSH and ROS obtained by others. Carol Tran APRN.CNP January 05, 2022 9:48 AM documented in this encounter [facility] 01-04-2022 Miscellaneous Notes Patient scheduled for [...] direct number to call me back Shakeel Farias patient called stated he was having issues [...] EGD is still scheduled on 12/13 at [place]? He states he has not received any instructions and wants to make sure he does not miss anything. Advised patient general surgery staff would contact him when they return to the office on 11/22/21. He verbalized understanding. documented in this encounter [facility] 10-20-2021 History of Present illness Narrative [...] denies a dyspnea with daily activities. [facility] 400 DO Work Phone: 10-18-2021 History of [...] He denies a dyspnea with daily activities. -[facility] 300 Work Phone: [...] denies a dyspnea with daily activities. [place] [address] [place] Work Phone: 09-02-2021 History of Present [...] a inspire inserted in 2017 at the [facility]. 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 -[facility] [place] DO Work Phone: 09-02-2021 History of Present [...] a inspire inserted in 2017 at the [facility]. 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 -Pulmonary Medicine-[place] [address] [employer] Work Phone: 07-20-2021 History of Present illness [...] a sleep study in 2013 at the [facility]. The patient's Milbank Sleepiness Scale score today was 4. The [...] a vengeance and wake him from sleep. [facility] Work Phone: 07-16-2021 History of Present illness [...] on requip dose is being adjusted upwards YB-Roehpiykkjlyqg-Tkpsp 205 [place] Work Phone: 07-16-2021 History of [...] PLAN TO USE WITH OAT IN PLACE IJ-Yjdrfyqmzxymjx-Zmpyr MAC1 205 [place] Work Phone: 07-16-2021 History [...] a sleep study in 2013 at the [facility]. The patient's Milbank Sleepiness Scale score today was 4. The [...] a vengeance and wake him from sleep. EA-Eqvalddjr-Vzojw 204 Work Phone: documented as of this encounter (statuses as of 01/04/2022) [facility] History of Past illness Narrative* Problem [...] of this encounter (statuses as of 01/05/2022) [facility] History of Past illness Narrative* Problem [...] of this encounter (statuses as of 05/15/2022) [facility] History of Past illness Narrative* Problem [...] of this encounter (statuses as of 08/30/2022) [facility] History of Past illness Narrative* Problem [...] of this encounter (statuses as of 09/19/2022) [facility] History of Past illness Narrative* Problem [...] of this encounter (statuses as of 02/16/2023) [facility] History of Past illness Narrative* Problem [...] of this encounter (statuses as of 02/17/2023) [facility] History of Past illness Narrative* Problem [...] of this encounter (statuses as of 05/29/2023) [facility] History of Past illness Narrative* Problem [...] of this encounter (statuses as of 06/08/2023) [facility] History of Past illness Narrative* Problem [...] of this encounter (statuses as of 09/14/2023) [facility] History of Present illness Narrative* From a previous note from Dr. Segovia : * Has had sleep issues his whole life- initially tested and treated about 7 yr ago - Baseline AHI 55(2013 study [facility]) * Tried multiple PAP machines * Has inspire device which was implanted at 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 * Naps: Patient Does [...] nightmares. -Sleep Medicine-[place] A[address] DO Work Phone: 1(947) 475-349002-07-2016 History of Present illness Narrative* From a previous note from Dr. Segovia : * Has had sleep issues his whole life- initially tested and treated about 7 yr ago - Baseline AHI 55(2013 study [facility]) * Tried multiple PAP machines * Has inspire device which was implanted at 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 * Naps: Patient Does [...] out of dream. No nightmares. [facility] 2302 Work Phone: 1(935) 577-608003-27-2015 History of Present illness Narrative* From a previous note from Dr. Segovia : * Has had sleep issues his whole life- initially tested and treated about 7 yr ago - Baseline AHI 55(2013 study [facility]) * Tried multiple PAP machines * Has inspire device which was implanted at 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 * Naps: Patient Does [...] not act out of dream. No nightmares. [facility] A24[address] DO Work Phone: 1(181) 266-621403-04-2015 History of Present illness Narrative* Mr. TEMO GARRISON is presenting for inspire eval- existing implant * The patient was kindly referred by Malick Weber who he has seen recently for RLS and ROSITA * Has had sleep issues his whole life- initially tested and treated about 7 yr ago - Baseline AHI 55 (2014 study [facility]) * Tried multiple PAP machines * Has inspire device which was implanted at 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 * Naps: Patient Does [...] * Virtual visit. Follow up on sleep. KC-Xeclkfdqm-Evtmh 204 Work Phone: chief complaint Narrative - [...] * Virtual visit. Follow up on sleep. [facility] Work Phone: chief complaint Narrative - Reported* [...] * Virtual visit. Follow up on sleep. [facility] Work Phone: chief complaint Narrative - Reported* TEMO GARRISON is here for an initial evaluation. * Reason for Visit: Nocturnal Hypoxemia. * Appointment requested by: Dr. Weber; PCP: Dr. Wilson. [facility] 400 DO Work Phone: chief complaint Narrative - Reported* TEMO GARRISON is here for an initial evaluation. * Reason for Visit: Nocturnal Hypoxemia. * Appointment requested by: Dr. Weber; PCP: Dr. Wilson. -Pulmonary [place] [address] DO Work Phone: chief complaint Narrative - Reported* TEMO GARRISON is here for an initial evaluation. * Reason for Visit: Nocturnal Hypoxemia. * Appointment requested by: Dr. Weber; PCP: Dr. Wilson. [facility] [place] [address] DO Work Phone: Evaluation note* Diagnosis History of Small's esophagus- Primary [facility] Diagnosis Bright red blood per rectum- Primary Hemorrhage of rectum and anus Hemorrhoids, internal Internal hemorrhoids without mention of complication [facility] Diagnosis Other chronic pain [facility] Diagnosis Bright red blood per rectum- Primary Hemorrhage of rectum and anus Hemorrhoids, internal Internal hemorrhoids without mention of complication [facility] Narrative* The patient [...] [facility]'s Milbank Sleepiness Scale score today was 4. The [...] a vengeance and wake him from sleep. 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 Advance Directive(s) 08/10/2020 7:20 [...] DATE CREATED AUTHOR AUTHOR'S ORGANIZ ATION 04/10/2018 [facility] ([place]) DATE CREATED AUTHOR AUTHOR'S ORGANIZ ATION 10/13/2018 [facility] DATE CREATED AUTHOR AUTHOR'S ORGANIZ ATION 01/06/2021 [facility] DATE CREATED AUTHOR AUTHOR'S ORGANIZ ATION 10/03/2021 [facility] DATE CREATED AUTHOR AUTHOR'S ORGANIZ ATION 12/15/2021 [facility] DATE CREATED AUTHOR AUTHOR'S ORGANIZ ATION 02/28/2023 [facility] DATE CREATED AUTHOR AUTHOR'S ORGANIZ ATION 02/28/2023 [facility] DATE CREATED AUTHOR AUTHOR'S ORGANIZ ATION 06/03/2023 [facility] DATE CREATED AUTHOR AUTHOR'S ORGANIZ ATION 10/06/2023 [facility] Reason for Visit (unrecogniz ed section and content) Reason Comments EGD follow up Gas Reason Comments Patient Update Patient Question Reason Comments Refill Request Reason Comments Appointment Reason Comments Consult colonoscopy Reason Comments Pain Specialty Diagnoses / Procedures Referred By Leatha t Referred To Contact Multispecialty Diagnoses Other chronic pain Malick Christie MD [address] [place] [address] [facility] [address] [place] [address] Referral ID Status Reason Start Date Expiration Date V isits Requested Visits Authorized [id number] New Request 04/11/2023 05/05/2024 1 1 Reason Comments Procedure BANDING Reason Onset Date Comments Refill Request 09/13/2023 Source Comments (unrecognize d section and content) In the event this informatio n is protected by the Federal Confidentiality of Alcohol and Drug Abuse Patient Records regulations: The Federal rules restrict any use of the information to criminally investigate or prosecute any alcohol or drug abuse patient.[facility] the event this information is protected by the Federal Confidentiality of Alcohol and Drug Abuse Patient Records regulations: The Federal rules restrict any use of the information to criminally investigate or prosecute any alcohol or drug abuse patient.[facility] HospitalIn the event this information is protected by the Federal Confidentiality of Alcohol and Drug Abuse Patient Records regulations: The Federal rules restrict any use of the information to criminally investigate or prosecute any alcohol or drug abuse patient.[facility] HospitalIn the event this information is protected by the Federal Confidentiality of Alcohol and Drug Abuse Patient Records regulations: The Federal rules restrict any use of the information to criminally investigate or prosecute any alcohol or drug abuse patient.[facility] HospitalIn the event this information is protected by the Federal Confidentiality of Alcohol and Drug Abuse Patient Records regulations: The Federal rules restrict any use of the information to criminally investigate or prosecute any alcohol or drug abuse patient.[facility] HospitalIn the event this information is protected by the Federal Confidentiality of Alcohol and Drug Abuse Patient Records regulations: The Federal rules restrict any use of the information to criminally investigate or prosecute any alcohol or drug abuse patient.[facility] HospitalIn the event this information is protected by the Federal Confidentiality of Alcohol and Drug Abuse Patient Records regulations: The Federal rules restrict any use of the information to criminally investigate or prosecute any alcohol or drug abuse patient.[facility] HospitalIn the event this information is protected by the Federal Confidentiality of Alcohol and Drug Abuse Patient Records regulations: The Federal rules restrict any use of the information to criminally investigate or prosecute any alcohol or drug abuse patient.[facility] HospitalIn the event this information is protected by the Federal Confidentiality of Alcohol and Drug Abuse Patient Records regulations: The Federal rules restrict any use of the information to criminally investigate or prosecute any alcohol or drug abuse patient.[facility] HospitalIn the event this information is protected by the Federal Confidentiality of Alcohol and Drug Abuse Patient Records regulations: The Federal rules restrict any use of the information to criminally investigate or prosecute any alcohol or drug abuse patient.[facility] Care Teams (unrecognized sec tion and content) Inventory Associate Relationship Specialty Start Date End Date Monesrrat Wilson [address] [place] [address] PCP - General Family Practice 06/26/18 Inventory Associate Relationship Specialty Start Date End Date Monserrat Wilson [address] [place] [address] PCP - General Family Practice 06/26/18 Inventory Associate Relationship Specialty Start Date End Date Monserrat Wilson [address] [place] [address] PCP - General Family Medicine 06/26/18 Inventory Associate Relationship Specialty Start Date End Date Monserrat Wilson [address] [place] [address] PCP - General Family Medicine 06/26/18 Inventory Associate Relationship Specialty Start Date End Date Monserrat Wilson MD [address] [place], [place] [id number] PCP - General Family Medicine 06/26/18 Inventory Associate Relationship Specialty Start Date End Date Monserrat Wilson MD [address] [place], [place] [id number] PCP - General Family Medicine 06/26/18 Inventory Associate Relationship Specialty Start Date End Date Malick Christie [address] [place] [address] PCP - General Family Medicine 05/18/23 Inventory Associate Relationship Specialty Start Date End Date Malick Christie MD [address] [place] [address] PCP - General Family Medicine 05/18/23 Inventory Associate Relationship Specialty Start Date End Date Malick Christie MD [address] [place] [address] PCP - General Family Medicine 05/18/23 FOR [...] BE BASED ON THE PRIMARY CLINICAL RECORDS. [employer] [facility]. provides no warranty or guarantee of the accuracy or completeness of information in this document.
== END | disposition home or self-care (01) ==
LOC: CT 14:41
PROVIDERS: PCP Family Medicine; Referring Provider Family Medicine; Visit Provider Family Medicine
DX: R22.2 Localized swelling, mass and lump, trunk (principal)
CPT/HCPCS: 74177; Q9967

== ENCOUNTER 2024-01-03 12:48 | Observation (INO) | payer MEDICARE, SELFPAY ==
[2024-01-03] VITALS (13 sets, daily range): BP systolic 111–167; BP diastolic 52–85; PULSE 66–87; RESP 15–18; TEMP 36.1–36.9; O2SAT 91–100; BMI 28.2
--- NOTE | 2024-01-03 | PROS_PTH ---
PATIENT: TEMO GARRISON LOC: MS3 U#:[id number] AGE/SX: 83/M ROOM: IL308 RE01/03/[address]: Dr. Aneesh Prado MD : 1940 BED: 1 DIS: 01/04/2024 SPEC #: [id number] RECD: 01/03/24 18:06 STATUS: INÉS DELEON #: [id number] DHEERAJ: 01/03/24 00:[address]: Aneesh Prado DEPT: SURGICAL PATHOLOGY RECD BY: Chris Whalen ENTERED: 01/04/24 10:06 SP TYPE: TURP OTHR DR: Dr. Woodrow Al MD Tissues: Prostate, NOS Procedures: Surgery Specimen Level IV HEADER OPERATION: Transurethral reresection of prostate with Olympus PRE-OP DIAGNOSIS: BPH with obstruction TISSUE SUBMITTED: Prostate tissue MICROSCOPIC DIAGNOSIS Prostate tissue, Transurethral resection; Benign prostatic hyperplasia, glandular and stromal type. SJ/mr 01/05/2024 MICROSCOPIC DESCRIPTION Slides are reviewed. GROSS DESCRIPTION Received is one container labeled with the patient's name and designated prostate tissue. The specimen consists of multiple irregular fragments of pink-lauren, rubbery, soft tissue that in aggregate weigh 3.4 gm and measure in aggregate 6.0 x 5.0 x 0.3 cm. The entire specimen is submitted in 3 cassettes. / 01/04/2024 TC:5 CPT: 66784
[2024-01-03] MEDS: Lactated Ringers 1,000 ML 15 ML IV ×2 (10:01→14:33)
[2024-01-03 11:16] LABS: Bedside Glucose 96 mg/dL (74-106)
--- NOTE | 2024-01-03 11:34 | HP.PCM_ITS ---
[facility] - General General Date of Service: 01/03/24 Chief Complaint: BPH with obstruction HPI Narrative TEMO GARRISON, is a 83 M who presents for transurethral section of prostate for large obstructing prostate. [facility] Medical History (Updated 12/26/23 @ 09:30 by Krystle Marc) Alcohol abuse Alcohol use Ankle injury Arthritis Back pain Back pain Cancer Cardiology follow-up encounter Cataracts, bilateral Chest pain Chronic fatigue Chronic kidney disease, stage 3 Chronic pain Diabetes Diabetes mellitus Dietary restriction DVT (deep venous thrombosis) Encounter for screening for COVID-19 Essential hypertension Fatigue Fibromyalgia Former smoker Gastric reflux Gout High cholesterol History of DVT (deep vein thrombosis) History of echocardiogram History of Holter monitoring History of renal disease History of rheumatic fever History of stress test HTN (hypertension) Hx of fracture of ankle Hyperlipidemia Hypertriglyceridemia Injury of head and neck inspire device implant intracular lenses x2 Leg cramps Mixed hyperlipidemia ROSITA (obstructive sleep apnea) Osteoarthritis Passed out Prostate Tissues Raynaud disease Restless legs (Unknown) Skin cancer Squamous cell cancer of external ear Syncope and collapse Thinning of skin Thyroid disease Tilt table evaluation Type 2 diabetes mellitus Wears glasses Wears hearing aid Home Medications duloxetine 60 mg capsule,delayed release 60 mg PO BID depression 04/17/14 [History Last Taken 01/06/18] losartan 25 mg tablet 25 mg PO QHS blood pressure 04/17/14 [History Last Taken 01/03/24 08:00] atorvastatin 20 mg tablet 20 mg PO DAILY 06/04/21 [History Last Taken Unknown] cholecalciferol (vitamin D3) 25 mcg (1,000 unit) capsule 1,000 unit PO DAILY vitamin 07/28/22 [History Last Taken Unknown] blood sugar diagnostic (OneTouch Verio test strips) 09/06/22 [History Last Taken Unknown] ketoconazole 2 % shampoo 1 applic topical 2XW PRN PRN 09/06/22 [History Last Taken Unknown] dupilumab 300 mg/2 mL subcutaneous pen injector (Dupixent) 300 mg subcut QMONTH 11/23/22 [History Last Taken Unknown] ascorbate calcium (vitamin C) 500 mg tablet 1 g PO DAILY 08/01/23 [History Last Taken Unknown] gabapentin 300 mg capsule 600 mg PO TID 08/01/23 [History Last Taken Unknown] levothyroxine 50 mcg capsule 50 mcg PO DAILY 08/01/23 [History Last Taken 01/03/24 08:00] pyridoxine (vitamin B6) 100 mg tablet 100 mg PO DAILY 08/01/23 [History Last Taken Unknown] folic acid 1 mg tablet 1 mg PO DAILY #30 tabs 08/03/23 [Rx Last Taken Unknown] guaifenesin 200 mg tablet 200 mg PO BID 08/03/23 [History Last Taken Unknown] omeprazole 40 mg capsule,delayed release 40 mg PO BID 08/03/23 [History Last Taken 01/03/24 08:00] apixaban 5 mg (74 tabs) tablets in a dose pack ([employer] DVT-PE Treat 30D Start) 5 mg PO BID #74 tabs 08/27/23 [Rx Last Taken 12/31/23] verapamil 120 mg tablet,extended release 120 mg PO QAM #30 tabs 10/31/23 [Rx Last Taken Unknown] cyanocobalamin (vitamin B-12) 1,000 mcg tablet (Vitamin B-12) 1,000 mcg PO DAILY 11/29/23 [History Last Taken Unknown] tizanidine 4 mg tablet 4 mg PO QHS PRN muscle spasticity/insomnia/leg restlessness 11/29/23 [History Last Taken 01/03/24 08:00] valacyclovir 1 gram tablet 2,000 mg PO BID 11/29/23 [History Last Taken Unknown] Allergy/AdvReac Type Severity Reaction Status Date / Time tamsulosin Allergy Severe Blacked Verified 01/03/24 09:42 out, Passed out meloxicam Allergy Unknown Decrease Verified 01/03/24 09:42 in kidney function alfuzosin HCl Allergy Unknown Verified 01/03/24 09:42 [From Uroxatral] ezetimibe [From Zetia] Allergy Pain in Verified 01/03/24 09:42 joints pramipexole di-HCl Allergy Other Verified 01/03/24 09:42 [From Mirapex] simvastatin [From Zocor] Allergy Pain in Verified 01/03/24 09:42 joints celecoxib [From Celebrex] AdvReac Unknown Unknown Verified 01/03/24 09:42 lisinopril AdvReac Other Verified 01/03/24 09:42 Family History Brother Myocardial infarction, Onset Age: 58 Sister Cancer Breast Grandfather Myocardial infarction Other Arthritis Breast cancer FH: defects Surgical History (Updated 12/26/23 @ 09:26 by Krystle Marc) H/O cataract removal with insertion of prosthetic lens History of esophagogastroduodenoscopy (EGD) History of repair of anterior cruciate ligament of left knee History of total right knee replacement (TKR) History of transurethral resection of prostate Hx of colonoscopy Social History Smoking Status: Former smoker alcohol intake: current alcohol intake frequency: 0-2 drinks per day details: 4-5 shots of [place] daily substance use type: does not use caffeine: Yes Type: coffee Number of servings: 3 what type of physical activity do you participate in: none Vital Signs Vital Signs Vital Signs: 01/03/24 09:46 01/03/24 09:46 Temperature 98.5 F Temperature Source Temporal Pulse Rate 66 Respiratory Rate 16 Respiratory Pattern Normal Blood Pressure 136/73 H Blood Pressure Mean 94 Blood Pressure Source Monitor Blood Pressure Position Semi-Fowlers Blood Pressure Location Right Arm Pulse Ox 100 Oxygen Delivery Method Room Air Weight Weight: 86.636 kg Body Mass Index (BMI) 28.2 Results Lab / Micro Data Labs: Laboratory Results - last 24 hr 01/03/24 09:52: POC Glucose 96
[2024-01-03] MEDS: Lubricating Jelly 60 GM Tube 30 GM (11:49)
[2024-01-03] MEDS: Cefazolin 2 GM in 0.9% Normal Saline (100mL Bag) 100 ML IV (12:02)
--- NOTE | 2024-01-03 12:42 | DCINST_ITS ---
Discharge Instructions Diet Discharge Diet: No restrictions Activity Discharge Activity: Return to Normal Activity and May Not Drive (while taking narcotic pain medications.) Dressing / Incision Call your doctor if you observe: Fever of 101 or Higher Follow Up Care Please Follow Up With: Aneesh Prado MD When: Call [phone] for an appointment Test Results: Test results from this visit will be discussed in further detail at your follow- up appointment, if applicable. Discharge Plan Admission Attending Provider: Aneesh Prado Primary Care Provider: Woodrow Al Discharge Orders/Prescriptions Prescriptions: No Action atorvastatin 20 mg tablet 20 mg PO DAILY ketoconazole 2 % shampoo 1 applic topical 2XW PRN (Reason: PRN) omeprazole 40 mg capsule,delayed release(DR/EC) 40 mg PO BID (DME) OneTouch Verio test strips Strip See Rx Instructions .ROUTE .MEDSUPPLY Rx Instructions: Check weekly Dupixent Pen 300 mg/2 mL pen injector 300 mg subcut QMONTH gabapentin 300 mg capsule 600 mg PO TID levothyroxine 50 mcg capsule 50 mcg PO DAILY pyridoxine (vitamin B6) 100 mg tablet 100 mg PO DAILY guaifenesin 200 mg tablet 200 mg PO BID folic acid 1 mg tablet 1 mg PO DAILY Qty: 30 5RF losartan 25 MG tablet 25 mg PO QHS Patient Comments: blood pressure duloxetine 60 MG capsule 60 mg PO BID Patient Comments: enhance mood cholecalciferol (vitamin D3) 25 mcg (1,000 unit) capsule 1,000 unit PO DAILY Patient Comments: vitamin,supplement ascorbate calcium (vitamin C) 500 mg tablet 1 g PO DAILY Eliquis DVT-PE Treat 30D Start 5 mg (74 tabs) tablets,dose pack 5 mg PO BID Qty: 74 0RF valacyclovir 1 gram tablet 2,000 mg PO BID Patient Comments: TAKE 1 TABLET BY MOUTH EVERY DAY cyanocobalamin (vitamin B-12) [Vitamin B-12] 1,000 mcg tablet 1,000 mcg PO DAILY tizanidine 4 mg tablet 4 mg PO QHS PRN (Reason: muscle spasticity/insomnia/leg restlessness) Rx Instructions: Take 1 to 2 tablets orally at bedtime PRN verapamil 120 mg tablet extended release 120 mg PO QAM Qty: 30 2RF Referrals / Follow Up: Woodrow Al MD [Primary Care Provider] - Disposition Disposition (needs filled in before D/C Order can be placed): Home, Self Care
--- NOTE | 2024-01-03 12:44 | PCM.OPRPT ---
Report of Operation Date of Procedure: 01/03/24 Pre-Operative Diagnosis: BPH with obstruction Post-Operative Diagnosis: The same Surgery/Procedure Performed:: Transurethral section of prostate Description of Surgical Findings:: In the preoperative setting I discussed with the patient how the surgery would be done with expect afterwards. We discussed how a prostate resection is done and we discussed the risk of the surgery including, bleeding, infection, retrograde ejaculation, changes with ejaculation or intercourse,. We discussed the possibility that the resection of the prostate may not alleviate his urinary symptoms. We discussed the small risk of developing scar tissue along the urethral channel and strictures. We also discussed the chance of the prostate could grow back and he may need further surgery or treatment in the future for prostate problems. Patient was taken back to the operating room, timeout procedure was performed, he was identified and marked and placed on the operating room table. He underwent general anesthesia. He was placed in dorsolithotomy position. Penis and testicles were prepped and draped in usual sterile fashion. Went into the bladder using the visual obturator with a resectoscope. Once inside the bladder identified the right and left ureteral orifice. I then identified the prostate and the anatomy of the prostate. I marked out the area of the sphincter and the verumontanum was identified. I then proceeded with the prostate resection first resected the median lobe. And then resected the right lobe of the prostate. Then to resect the left lobe of the prostate. I then resected the apical tissue of the prostate. This was a complete resection of all obstructive tissue to improve voiding and relieve obstruction. I then made sure that there was no injury to the sphincter or the verumontanum was still intact. At the end of the resection all the chips were Ellik out of the bladder. I then identified the left and right ureteral orifice and these were confirmed to be in good position and effluxing and not injured. The resectoscope was removed, a 22 Swedish catheter was placed into the bladder on continuous irrigation. And the urine was fairly light pink color and draining normally. He was taken back to the PACU in good condition. Surgeon: Aneesh Prado Type of Anesthesia: General Complications None Admit VTE Documentation VTE Present on Admission: No VTE Mechan Device Prophylaxis: SCD's VTE Pharm Prophylaxis ordered?: No
[2024-01-03] MEDS: 0.9% Normal Saline (1000mL) 1,000 ML 125 ML IV ×2 (15:24→23:56)
[2024-01-03 15:32] LABS: Bedside Glucose 87 mg/dL (74-106)
[2024-01-03] MEDS: Cefazolin 1 GM/50 ML BAG IV (20:04)
[2024-01-03] MEDS: Gabapentin 600 MG Tablet PO (20:55)
[2024-01-03] MEDS: Docusate Sodium 100 MG Capsule 200 MG PO (20:55)
[2024-01-03] MEDS: DULoxetine Hcl 60 MG Capsule PO (20:56)
[2024-01-03] MEDS: Pantoprazole Sodium 40 MG Tablet PO (20:56)
[2024-01-03] MEDS: Losartan Potassium 25 MG Tablet PO (20:56)
[2024-01-04 02:49] VITALS: BP 125/66; PULSE 76; RESP 16; TEMP 36.9; O2SAT 95
[2024-01-04] MEDS: Cefazolin 1 GM/50 ML BAG IV (04:33)
[2024-01-04] MEDS: Gabapentin 600 MG Tablet PO (05:12)
[2024-01-04] MEDS: Levothyroxine 50 MCG Tablet PO (05:12)
[2024-01-04 06:49] VITALS: BP 129/58; PULSE 83; RESP 16; TEMP 36.6; O2SAT 96
--- NOTE | 2024-01-04 07:46 | PCM.PN.GU ---
Subjective Subjective Status post TURP urine is fairly clear DC [place] and patient can go home today without a catheter told the patient not to resume his Eliquis but he can take baby aspirin Objective Data Objective Data Vital Signs: Vital Signs Temp Pulse Resp BP Pulse Ox O2 Del Method O2 Flow Rate 98 F 83 16 129/58 H 96 Room Air 2 01/04/24 06:49 01/04/24 06:49 01/04/24 06:49 01/04/24 06:49 01/04/24 06:49 01/04/24 06:49 01/03/24 15:06 Oxygen Flow Rate (L/min) 2 Oxygen Delivery Method Room Air Weight: 86.636 kg Body Mass Index (BMI) 28.2 Intake & Output: Intake and Output for Last 24 Hours 01/02/24 01/03/24 01/04/24 23:59 23:59 23:59 Intake Total 1242.25 / 1242.25 50 / 50 Output Total 800 / 1400 600 / 600 Balance 442.25 / -157.75 -550 / -550 Lab / Micro Data Labs: Laboratory Results - last 24 hr 01/03/24 09:52: POC Glucose 96 01/03/24 14:07: POC Glucose 87
[2024-01-04] MEDS: DULoxetine Hcl 60 MG Capsule PO (07:58)
[2024-01-04] MEDS: Docusate Sodium 100 MG Capsule 200 MG PO (07:58)
[2024-01-04] MEDS: Pantoprazole Sodium 40 MG Tablet PO (07:58)
[2024-01-04] MEDS: Verapamil 120 MG Tablet PO (07:58)
[2024-01-04 10:10] VITALS: BP 135/73; PULSE 82; RESP 18; TEMP 36.9; O2SAT 97
--- NOTE | 2024-01-04 10:24 | CASEMGMT ---
RN CM into pt room, pt present at bedside. Pt reports he is I in ADL's and denies concerns at home. Pt ready for dc and denies any homegoing needs.
--- NOTE | 2024-01-04 10:41 | PHA.DC.MC.R ---
Pharmacy [facility] has performed discharge medication reconciliation and counseling for this patient. The patient's discharge medication list was reviewed for discrepancies and discrepancies were resolved. The patient was counseled on the following discharge medications and changes in medications for homegoing were reviewed. 1. KEFLEX The Reason for Use, instructions for use, and potential side effects were reviewed for all new medications. The patient's questions regarding all of their medications were answered. The patient was able to verbally demonstrate an understanding of their discharge medications. Medications at Discharge Home Medications duloxetine 60 mg capsule,delayed release 60 mg PO BID depression 04/17/14 losartan 25 mg tablet 25 mg PO QHS blood pressure 04/17/14 atorvastatin 20 mg tablet 20 mg PO DAILY 06/04/21 cholecalciferol (vitamin D3) 25 mcg (1,000 unit) capsule 1,000 unit PO DAILY vitamin 07/28/22 blood sugar diagnostic ([employer] Verio test strips) 09/06/22 ketoconazole 2 % shampoo 1 applic topical 2XW PRN PRN 09/06/22 dupilumab 300 mg/2 mL subcutaneous pen injector ([employer]) 300 mg subcut QMONTH 11/23/22 ascorbate calcium (vitamin C) 500 mg tablet 1 g PO DAILY 08/01/23 gabapentin 300 mg capsule 600 mg PO TID 08/01/23 levothyroxine 50 mcg capsule 50 mcg PO DAILY 08/01/23 pyridoxine (vitamin B6) 100 mg tablet 100 mg PO DAILY 08/01/23 folic acid 1 mg tablet 1 mg PO DAILY #30 tabs 08/03/23 guaifenesin 200 mg tablet 200 mg PO BID 08/03/23 omeprazole 40 mg capsule,delayed release 40 mg PO BID 08/03/23 apixaban 5 mg (74 tabs) tablets in a dose pack (Eliquis DVT-PE Treat 30D Start) 5 mg PO BID #74 tabs 08/27/23 verapamil 120 mg tablet,extended release 120 mg PO QAM #30 tabs 10/31/23 cyanocobalamin (vitamin B-12) 1,000 mcg tablet (Vitamin B-12) 1,000 mcg PO DAILY 11/29/23 tizanidine 4 mg tablet 4 mg PO QHS PRN muscle spasticity/insomnia/leg restlessness 11/29/23 cephalexin 500 mg capsule 500 mg PO BID #10 caps 01/03/24
== END 2024-01-04 11:24 | disposition home or self-care (01) ==
LOC: SDC 13:09 → MS3 13:09
PROVIDERS: Admitting Provider Urology; PCP Family Medicine; Referring Provider Family Medicine; Visit Provider Urology
PROC: (CPT 52601; principal; 2024-01-03 11:25)
DX: N40.1 Benign prostatic hyperplasia with lower urinary tract symptoms (principal); E11.22 Type 2 diabetes mellitus with diabetic chronic kidney disease; E11.42 Type 2 diabetes mellitus with diabetic polyneuropathy; N18.30 Chronic kidney disease, stage 3 unspecified; E78.2 Mixed hyperlipidemia; I12.9 Hypertensive chronic kidney disease with stage 1 through stage 4 chronic kidney disease, or unspecified chronic kidney disease; M79.7 Fibromyalgia; N13.8 Other obstructive and reflux uropathy; Z87.891 Personal history of nicotine dependence; Z86.718 Personal history of other venous thrombosis and embolism; G47.33 Obstructive sleep apnea (adult) (pediatric); Z79.899 Other long term (current) drug therapy; E07.9 Disorder of thyroid, unspecified; Z79.890 Hormone replacement therapy; Z79.01 Long term (current) use of anticoagulants
CPT/HCPCS: 52601; 00914; 82962; 88305; 96361; 96365; 96366; 99221; J7030; J7120; G0378; J2405

== ENCOUNTER → 2024-02-20 | Outpatient (CLI) | payer MEDICARE, SELFPAY ==
[2024-02-20 12:39] LABS: Hematocrit 41.2 % (40-54); Hemoglobin 13.5 g/dL (13.0-16.5); Mean Corp Hgb Conc 32.8 g/dL (32-36); Mean Corpuscular Hgb 32.8 pg (27.0-32.0); Mean Corpuscular Volume 100.2 fL (80-94); Mean Platelet Vol. 10.5 fl (6.2-12.0); Platelet Count 236 K/mm3 (150-450); RBC Distribution Width CV 13.6 % (11.6-14.6); Red Blood Count 4.11 M/mm3 (4.6-6.2); White Blood Count 8.1 K/mm3 (4.4-11.0)
[2024-02-20 12:59] LABS: PTHIN 45.3 pg/mL (18.4-80.1)
[2024-02-20 13:01] LABS: Vitamin D,25 Hydroxy 66.4 ng/mL
[2024-02-20 13:03] LABS: Albumin, Serum 3.6 g/dL (3.2-5.0); BUN 29 mg/dL (7-18); BUN/Creat Ratio 13.7 RATIO (10-20); Calcium,Total 9.4 mg/dL (8.5-10.1); Chloride 105 mmol/L (98-107); Creatinine, Serum 2.12 mg/dL (0.70-1.30); EST Glomerular Filtration Rate 32 mL/min (>60); Est Glom Filt Rate - Afr Amer 39 mL/min (>60); Glucose 120 mg/dL (74-106); Phosphorus 2.9 mg/dL (2.5-4.9); Potassium 4.6 mmol/L (3.5-5.1); Sodium Level 139 mmol/L (136-145); T4 Free Direct 1.12 ng/dL (0.76-1.46)
[2024-02-27 11:09] LABS: Anti-Thyroglobulin AB < 1.0 IU/mL (0.0-0.9); Thyroglobulin, Serum Qt. 5.5 ng/mL (1.4-29.2); Thyroid Peroxidase AB < 9 IU/mL (0-34); Vitamin B1, Thiamine 111.8 nmol/L (66.5-200.0)
== END | disposition home or self-care (01) ==
LOC: MTLAB 10:35
PROVIDERS: PCP Family Medicine; Referring Provider Internal Medicine Nephrology; Visit Provider Internal Medicine Nephrology
DX: E78.5 Hyperlipidemia, unspecified (principal); N18.31 Chronic kidney disease, stage 3a; E55.9 Vitamin D deficiency, unspecified; Z13.0 Encounter for screening for diseases of the blood and blood-forming organs and certain disorders involving the immune mechanism
CPT/HCPCS: 36415; 80069; 82306; 82570; 83970; 84156; 84207; 84425; 84432; 84439; 85027; 86376; 86800

== ENCOUNTER → 2024-02-21 | Outpatient (CLI) | payer MEDICARE, SELFPAY ==
[2024-02-21 13:13] LABS: Protein, Urine (Random) 28.6 mg/dL (<11.9); Protein:Creat Ratio 367 mg/g CRE (0-200)
--- NOTE | 2024-02-21 14:07 | RAD_ITS ---
STUDY: X-RAY - CERVICAL SPINE REASON FOR EXAM: Male, 83 years old. Other spondylosis with myelopathy, cervical region TECHNIQUE: 3 view(s) of the cervical spine were obtained. COMPARISON: None FINDINGS: Normal anterior atlantoaxial articulation. Normal odontoid process. Normal cervical lordosis. There is multi-level endplate spondylosis. There is facet and uncovertebral spurring. There is no acute fracture. Stimulator wire extends to the right neck. RAD/Cerv Spine 2 or 3 Views IMPRESSION: Degenerative change. Electronically Signed: Negrito Villegas MD at 9:41 EDT ,
--- NOTE | 2024-02-21 14:10 | RAD_ITS ---
STUDY: X-RAY - THORACIC SPINE REASON FOR EXAM: Male, 83 years old. Back pain. TECHNIQUE: 3 view(s) of the thoracic spine were obtained on 4 images. COMPARISON: None. FINDINGS: Osteopenia. Increased kyphosis. No scoliosis. Intervertebral disc space narrowing with moderate osteophyte formation. Vascular calcification. RAD/Thoracic Spine 3 Views IMPRESSION: Osteopenia with diffuse moderate thoracic spondylosis. Electronically Signed: Jose Alfredo Velazquez MD at 11:46 EDT ,
== END | disposition home or self-care (01) ==
PROVIDERS: Internal Medicine Nephrology; PCP Family Medicine; Referring Provider Anesthesiology Pain Medicine; Visit Provider Anesthesiology Pain Medicine
DX: E78.5 Hyperlipidemia, unspecified (principal); N18.31 Chronic kidney disease, stage 3a; E55.9 Vitamin D deficiency, unspecified; Z13.0 Encounter for screening for diseases of the blood and blood-forming organs and certain disorders involving the immune mechanism; M47.12 Other spondylosis with myelopathy, cervical region
CPT/HCPCS: 72040; 72072; 82570; 84156

== ENCOUNTER → 2024-03-21 | Outpatient (CLI) | payer MEDICARE, SELFPAY ==
[2024-03-21 18:08] LABS: ALB/GLOB Ratio 1.1 RATIO (0.9-2.4); AST(SGOT) 21 U/L (15-37); Alanine Aminotransfer ALT/SGPT 23 U/L (16-61); Albumin, Serum 3.5 g/dL (3.2-5.0); Alkaline Phosphatase 83 U/L (45-117); Anion Gap 5 (5-15); BUN 30 mg/dL (7-18); BUN/Creat Ratio 12.4 RATIO (10-20); Calcium,Total 8.9 mg/dL (8.5-10.1); Chloride 106 mmol/L (98-107); Cholesterol 132 mg/dL (200); Creatinine, Serum 2.42 mg/dL (0.70-1.30); EST Glomerular Filtration Rate 27 mL/min (>60); Est Glom Filt Rate - Afr Amer 33 mL/min (>60); Globulin 3.3 g/dL (2.2-4.2); Glucose 203 mg/dL (74-106); High Density Lipoprotein 40 mg/dL; Potassium 4.6 mmol/L (3.5-5.1); Protein, Total 6.8 g/dL (6.4-8.2); Sodium Level 137 mmol/L (136-145); Triglycerides 207 mg/dL; Very Low Density Lipoprotein 41 mg/dL (5-40)
== END | disposition home or self-care (01) ==
LOC: MFPLAB 15:05
PROVIDERS: PCP Family Medicine; Visit Provider Family Medicine
DX: E11.8 Type 2 diabetes mellitus with unspecified complications (principal)
CPT/HCPCS: 36415; 80053; 80061; 83036

== ENCOUNTER → 2024-06-21 | Outpatient (CLI) | payer MEDICARE, SELFPAY ==
[2024-06-21 15:19] LABS: Absolute Lymphocyte Count 2.39 X10^3/uL (0.83-4.51); Absolute Neutrophil Count 4.9 X10^3/uL (2.0-7.7); Basophil# 0.08 X10^3/uL; Eosinophil# 0.16 X10^3/uL; Eosinophils% 1.9 % (0-5); Hematocrit 44.4 % (40-54); Hemoglobin 13.8 g/dL (13.0-16.5); Lymphocyte # 2.39 X10^3/ul (0.83-4.51); Lymphocyte % 28.5 % (19-41); Mean Corp Hgb Conc 31.1 g/dL (32-36); Mean Corpuscular Hgb 31.5 pg (27.0-32.0); Mean Corpuscular Volume 101.4 fL (80-94); Mean Platelet Vol. 11.7 fl (6.2-12.0); Monocyte# 0.86 X10^3/uL; Monocyte% 10.2 % (0-10); NRBC Flagged by Analyzer 0 % (0-5); Neutrophil # 4.88 X10^3/uL (2.7-7.7); Platelet Count 239 K/mm3 (150-450); RBC Distribution Width CV 13.1 % (11.6-14.6); RBC Distribution Width SD 49.1 fl (35.1-43.9); Red Blood Count 4.38 M/mm3 (4.6-6.2); White Blood Count 8.4 K/mm3 (4.4-11.0)
[2024-06-21 16:04] LABS: Vitamin B12 789 pg/mL (211-911); Vitamin D,25 Hydroxy 72.3 ng/mL
[2024-06-21 16:06] LABS: PTHIN 47.7 pg/mL (18.4-80.1)
[2024-06-21 16:13] LABS: ALB/GLOB Ratio 1.1 RATIO (0.9-2.4); AST(SGOT) 18 U/L (15-37); Alanine Aminotransfer ALT/SGPT 23 U/L (16-61); Albumin, Serum 3.8 g/dL (3.2-5.0); Alkaline Phosphatase 66 U/L (45-117); Anion Gap 5 (5-15); BUN 23 mg/dL (7-18); BUN/Creat Ratio 10.2 RATIO (10-20); Calcium,Total 9.5 mg/dL (8.5-10.1); Chloride 106 mmol/L (98-107); Cholesterol 143 mg/dL (200); Creatinine, Serum 2.25 mg/dL (0.70-1.30); EST Glomerular Filtration Rate 30 mL/min (>60); Est Glom Filt Rate - Afr Amer 36 mL/min (>60); Globulin 3.6 g/dL (2.2-4.2); Glucose 109 mg/dL (74-106); High Density Lipoprotein 37 mg/dL; Phosphorus 2.6 mg/dL (2.5-4.9); Potassium 4.6 mmol/L (3.5-5.1); Protein, Total 7.4 g/dL (6.4-8.2); Sodium Level 138 mmol/L (136-145); T4 Free Direct 1.09 ng/dL (0.76-1.46); Triglycerides 161 mg/dL; Very Low Density Lipoprotein 32 mg/dL (5-40)
[2024-06-21 16:51] LABS: Microalbumin,Random Urine 21.9 mg/L (NO RANGE EST.); Microalbumin:Creatinine Ratio 44.3 mg/g CRE (<30 mg/g CRE)
== END | disposition home or self-care (01) ==
LOC: MFPLAB 11:40
PROVIDERS: PCP Family Medicine; Visit Provider Family Medicine
DX: E11.22 Type 2 diabetes mellitus with diabetic chronic kidney disease (principal); E55.9 Vitamin D deficiency, unspecified; N18.9 Chronic kidney disease, unspecified
CPT/HCPCS: 36415; 80053; 80061; 82043; 82306; 82570; 82607; 83036; 83970; 84100; 84439; 84443; 85025

== ENCOUNTER → 2024-07-12 | Outpatient (CLI) | payer MEDICARE, SELFPAY ==
--- NOTE | 2024-07-12 13:01 | CT_ITS ---
CT LEFT LOWER EXTREMITY WITH 3-D IMAGING CLINICAL INDICATION: PAIN LEFT KNEE TECHNIQUE: Axial CT images of the left lower extremity was performed without IV contrast material. Coronal and sagittal reformats were provided. The protocol utilizes one or more of the following dose reduction techniques: automated exposure control, adjustment of mA and/or kV according to patient size, and/or use of iterative reconstruction technique. RADIATION DOSAGE (If Supplied By Facility): CTDIvol = ( 17.72 ) mGy, DLP = ( 1447.30 ) mGycm COMPARISON: No relevant prior comparison study available. FINDINGS: Bones: There is mild degenerative arthrosis of the left hip joint. There is moderate degenerative arthrosis of the medial femorotibial compartment of the left knee, with joint space narrowing, marginal osteophyte formation, and subchondral sclerosis. There is mild degenerative arthrosis of the femorotibial and lateral femorotibial compartments of the left knee with mild marginal osteophyte formation. Osseous structures are normal without evidence of fracture or dislocation. No lytic or blastic osseous masses. Soft Tissues: There are postoperative changes related to ACL reconstruction. There is a small left knee joint effusion. There is prepatellar soft tissue swelling. The deep soft tissue structures are unremarkable. CT/Extremity Lower without Contra IMPRESSION: Tricompartment degenerative arthrosis, most pronounced in the medial femorotibial compartment. Small knee joint effusion. Prepatellar soft tissue swelling. Electronically Signed: Emanuel Marshall MD at 13:59 EDT ,
== END | disposition home or self-care (01) ==
LOC: CT 12:56
PROVIDERS: PCP Family Medicine; Referring Provider Specialist; Visit Provider Specialist
DX: M17.32 Unilateral post-traumatic osteoarthritis, left knee (principal); M25.562 Pain in left knee
CPT/HCPCS: 73700

== ENCOUNTER → 2024-07-19 | Outpatient (CLI) | payer MEDICARE, SELFPAY ==
--- NOTE | 2024-07-19 14:33 | VDLE_ITS ---
Reason For Study: LLE PAIN RIGHT LEFT CFV is compressible, spontaneous, phasic, GSV is normal. competent and demonstrates normal CFV is compressible, spontaneous, phasic, augmentation. competent, and demonstrates normal Procedure augmentation. This is a venous duplex using B-mode, color FV is compressible, spontaneous, phasic, flow and spectral Doppler. competent and demonstrates normal Exam performed in department. augmentation. A preliminary report was called and/or faxed POP V is compressible, spontaneous, phasic, to Jun Mayen @ 3pm @ [phone]. competent and demonstrates normal augmentation. T/P Trunk is compressible. PTV is compressible. LT PerV is compressible. VL/Venous Duplex US, Unilateral Interpretation Summary Deep veins of the left lower extremity are patent and compressible segmentally. There is no evidence of left lower extremity deep vein thrombosis. The left great saphenous vein constance ears patent and compressible segmentally. Ordering Physician: Jun Mayen Referring Physician: Woodrow Al Performed By: Viridiana Jones RDCS, RVT
== END | disposition home or self-care (01) ==
LOC: CVS 14:29
PROVIDERS: PCP Family Medicine; Referring Provider Physician Assistant Surgical; Visit Provider Physician Assistant Surgical
DX: M79.605 Pain in left leg (principal)
CPT/HCPCS: 93971

== ENCOUNTER 2024-07-29 07:07 | Observation (INO) | payer MEDICARE, SELFPAY ==
[2024-07-12 14:21] LABS: Magnesium 1.9 mg/dL (1.6-2.6)
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
[2024-07-29] VITALS (16 sets, daily range): BP systolic 76–134; BP diastolic 34–72; PULSE 49–86; RESP 14–20; TEMP 36.2–36.9; O2SAT 93–99; BMI 28.1; BMI 28.2
--- NOTE | 2024-07-29 07:07 | RAD_ITS ---
STUDY: X-RAY - LEFT KNEE REASON FOR EXAM: Male, 83 years old. Post op -- AP and Lateral xray of operative knee in PACU. TECHNIQUE: 3 views of the left knee. COMPARISON: None. FINDINGS: There are new postoperative changes related to left total knee arthroplasty with patellar resurfacing. There is a vertical staple line along the anterior aspect of the knee. There is gas in the patellofemoral joint recess and anterior soft tissues, compatible with recent surgery. The orthopedic hardware components are intact. There is no periprosthetic fracture. Normal proximal tibiofibular articulation. RAD/Knee 1 or 2 Views IMPRESSION: New postoperative changes related to left total knee arthroplasty. Electronically Signed: Emanuel Marshall MD at 12:13 EDT ,
[2024-07-29] MEDS: Lactated Ringers 1,000 ML 999 ML IV ×2 (07:34→10:45)
[2024-07-29] MEDS: Magnesium 2 GM for ERAS IV (07:36)
[2024-07-29] MEDS: Acetaminophen 500 MG Tablet 1000 MG PO ×3 (07:37→22:06)
[2024-07-29] MEDS: Gabapentin 600 MG Tablet PO ×3 (07:37→22:06)
--- NOTE | 2024-07-29 07:47 | PCM.PRE.AN2 ---
ASA Classification* ASA Classification ASA Classification: 3 Assessment & Plan Anesthesia* Anesthesia Assessment Anesthesia Assessment: Discussed sedation and/or anesthesia options, risks, benefits, and alternatives with patient/parents/legal guardian/POA. Questions invited. The patient/parents/legal guardian/POA seems to understand and agrees to proceed with anesthesia plan. Reviewed the physical assessment, medical history, allergy history and patient home medications list prior to surgery/procedure/anesthetic and documented any changes. Performed airway and anesthesia risk assessments. Anesthesia Type Anesthesia Type: General (verses spinal. consented for adductor canal block) Anesthesia Focused Assessment* Airway Assessment Mouth opens: >3 cm Mallampati Score: II Focused Labs Anesthesia Preop lab: CBC WBC 8.4 K/mm3 (4.4-11.0) 06/21/24 11:41 RBC 4.38 M/mm3 (4.6-6.2) L 06/21/24 11:41 Hgb 13.8 g/dL (13.0-16.5) 06/21/24 11:41 Hct 44.4 % (40-54) 06/21/24 11:41 Plt Count 239 K/mm3 (150-450) 06/21/24 11:41 CHEMISTRY Potassium 4.6 mmol/L (3.5-5.1) 06/21/24 11:41 Sodium 138 mmol/L (136-145) 06/21/24 11:41 Magnesium 1.9 mg/dL (1.6-2.6) 07/12/24 13:39 Phosphorus 2.6 mg/dL (2.5-4.9) 06/21/24 11:41 BUN 23 mg/dL (7-18) H 06/21/24 11:41 Creatinine 2.25 mg/dL (0.70-1.30) H 06/21/24 11:41 Glucose 109 mg/dL (74-106) H 06/21/24 11:41 POC Glucose 87 mg/dL (74-106) 01/03/24 14:07 TSH 1.530 uIU/mL (0.358-3.740) 06/21/24 11:41 COAG PT 13.7 SECONDS (11.7-14.9) 05/12/22 14:00 Pre-Assessment Diagnosis/Proposed Procedure Planned Operative Procedure(s): ROBOTIC ASSISTED LEFT TOTAL KNEE ARTHROPLASTY Anesthesia History 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 When Was Last Pacemaker Check QUESTION #4 FULL TEXT: You/Your Family Experience fever (hyperthermia) with Anesthesia Last Oral Intake Last Oral intake: Last Oral Intake NPO since Meds taken in AM with sips of water? Meds patient instructed to take am of surgery PONV PONV - semi conductor assembler: PONV - semi conductor assembler Female No 07/05/24 12:51 HX of Motion Sickness Yes 07/05/24 12:51 HX of N/V After Surgery No 07/05/24 12:51 Non-Smoker Yes 07/05/24 12:51 Duration of Surgery greater Yes 07/05/24 12:51 than 60 minutes Number of Risk Factors 3 07/05/24 12:51 PONV Score Moderate Risk 07/05/24 12:51 Height & Weight Height & Weight: Anesthesia: Height & Weight Height 5 ft 9 in 06/25/24 09:54 Respiratory Assessment Respiratory Assessment - semi conductor assembler: Respiratory Tract Infection Hx - semi conductor assembler Hx Respiratory Tract Infection No 07/05/24 12:51 STOP Sleep Apnea STOP Sleep Apnea - semi conductor assembler: STOP Sleep Apnea - semi conductor assembler Hx Hypertension Yes: CONTROLLED WITH MEDS 07/05/24 12:51 Hx Sleep Apnea Yes: INSPIRE IMPLANT/ 07/05/24 12:51 NONCOMPLIANT CPAP No 07/05/24 12:51 BIPAP No 07/05/24 12:51 Do you snore loudly (louder than talking or can be heard Do you often feel tired/ fatigued/ sleepy during daytime? Has anyone observed you stop breathing during sleep? STOP Results Positive 07/05/24 12:51 QUESTION #5 FULL TEXT : Do you snore loudly (louder than talking or can be heard through closed doors)? 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 Specify any problems Hx of Preganancy in last 3 N/A 07/05/24 12:51 Months Nurse Filling Out Transfusion DSCHRIBER 07/05/24 12:51 & Questions: Date: 07/05/24 07/05/24 12:51 Time: 12:53 07/05/24 12:51 Patient unable to answer at this time (ie. confused, unrespo /Reproduction History /Reproductive History - semi conductor assembler: /Reproductive Hx- semi conductor assembler Hx Now Gestational Age (in weeks): EDC: Hx Hx Para Hx Section SAB No 07/05/24 12:51 Active Medications Active Medications: Current Medications Generic Name Dose Route Start Last Admin Trade Name Ansonq PRN Reason Stop Dose Admin Acetaminophen 1,000 mg 07/29/24 08:45 07/29/24 07:37 Acetaminophen 500 Mg Tablet PO 07/29/24 08:46 1,000 mg X1 ONE Administration Acetaminophen 1,000 mg 07/29/24 14:00 Acetaminophen 500 Mg Tablet PO Q8 [facility] Amlodipine Besylate 5 mg 07/29/24 22:00 Amlodipine 5 Mg Tablet PO QHS [facility] Protocol Apixaban 5 mg 07/30/24 06:00 Apixaban 5 Mg Tablet PO BID [facility] Ascorbic Acid 1,000 mg 07/29/24 10:00 Ascorbic Acid 500 Mg Tablet PO DAILY [facility] Atorvastatin Calcium 20 mg 07/29/24 22:00 Atorvastatin Calcium 20 Mg Tablet PO QHS [facility] Cholecalciferol 50 mcg 07/29/24 10:00 Cholecalciferol (Vit D3) 25 Mcg Tablet (1,000 Units) PO DAILY ABDIEL Tranexamic Acid 2,000 mg/ 0 mg 07/29/24 08:45 Sodium Chloride 100 ml OPERA.SITE 07/29/24 08:46 X1 ONE Sodium Chloride 78.4 ml/ 0 ml 07/29/24 08:45 Ropivacaine 200 mg/ IV 07/29/24 08:46 Epinephrine HCl 0.6 mg/ X1 ONE Morphine Sulfate 5 mg Dexamethasone Sodium Phosphate 10 mg 07/29/24 08:45 Dexamethasone 10 Mg/Ml Vial IV 07/29/24 08:46 X1 ONE Duloxetine HCl 60 mg 07/29/24 07:15 Duloxetine Hcl 60 Mg Capsule PO .EVERY 2 DAYS [facility] Enteral Nutritional Formula 237 ml 07/29/24 08:00 Ensure Surgery 237 Ml Liquid PO TIDCM [facility] Folic Acid 1 mg 07/29/24 10:00 Folic Acid 1 Mg Tablet PO DAILY [facility] Gabapentin 600 mg 07/29/24 08:45 07/29/24 07:37 Gabapentin 600 Mg Tablet PO 07/29/24 08:46 600 mg X1 ONE Administration Gabapentin 600 mg 07/29/24 14:00 Gabapentin 600 Mg Tablet PO TID ABDIEL Lactated Ringer's 1,000 mls @ 999 mls/hr 07/29/24 09:45 IV 07/29/24 10:45 .Q1H1M ABDIEL Lactated Ringer's 1,000 mls @ 125 mls/hr 07/29/24 10:45 IV 07/29/24 18:44 .Q8H ABDIEL Cefazolin Sodium 2 gm/ N/A 20 mls @ 400 mls/hr 07/29/24 08:45 IV 07/29/24 08:47 PREOP ONE Lactated Ringer's 1,000 mls @ 999 mls/hr 07/29/24 08:45 07/29/24 07:34 IV 07/29/24 09:45 999 mls/hr .Q1H1M ABDIEL Administration Magnesium Sulfate 2 gm/ 104 mls @ 208 mls/hr 07/29/24 08:45 07/29/24 07:36 Dextrose IV 07/29/24 09:14 208 mls/hr X1 ONE Administration Cefazolin Sodium 1 gm in 50 mls @ 150 mls/hr 07/29/24 14:00 IV 07/29/24 22:19 Q8 [facility] Insulin Human Lispro 1 - 6 unit 07/29/24 08:45 Insulin Lispro 100 Unit/Ml Insuln.Pen SC 07/29/24 14:45 Q4H PRN PRN BG>/= 180, SEE PROTOCOL Protocol Levothyroxine Sodium 50 mcg 07/29/24 10:00 Levothyroxine 50 Mcg Tablet PO DAILY [facility] Losartan Potassium 25 mg 07/29/24 10:00 Losartan Potassium 25 Mg Tablet PO DAILY [facility] Protocol Morphine Sulfate 2 - 4 mg 07/29/24 07:07 Morphine 2 Mg/Ml Syringe IV Q2H PRN PRN Pain Score 6-10 Non-Formulary Medication 1,000 mcg 07/29/24 10:00 Cyanocobalamin (Vitamin B-12) [Vitamin B-12] PO DAILY [facility] Non-Formulary Medication 300 mg 07/29/24 07:15 Dupilumab [Dupixent Pen] SC QMONTH [facility] Non-Formulary Medication 8 mg 07/29/24 22:00 Tizanidine PO QHS [facility] Ondansetron HCl 4 mg 07/29/24 07:07 Ondansetron 4 Mg/2 Ml Vial IV Q8H PRN PRN NAUSEA Oxycodone HCl 5 - 10 mg 07/29/24 07:07 Oxycodone 5 Mg Tablet PO Q4H PRN PRN Pain Score 4-10 Pantoprazole Sodium 40 mg 07/29/24 10:00 Pantoprazole Sodium 40 Mg Tablet PO BID [facility] Promethazine HCl 12.5 mg 07/29/24 07:07 Promethazine 25 Mg/Ml Syringe IM Q6H PRN PRN NAUSEA/VOMITING Protocol Pyridoxine HCl 100 mg 07/29/24 10:00 Pyridoxine Hcl 100 Mg Tablet PO DAILY [facility] Senna/Docusate Sodium 2 tablet 07/29/24 10:00 Senna/Docusate Sodium 1 Tablet PO BID [facility] Verapamil HCl 240 mg 07/29/24 22:00 Verapamil Sr 240 Mg Tablet PO QHS [facility] Protocol PFSH Medical History Abrasion Ankle injury Cancer Thyroid disease Arthritis History of renal disease High cholesterol Back pain History of echocardiogram Tilt table evaluation Hx of fracture of ankle Chronic fatigue Chronic pain Squamous cell cancer of external ear ROSITA (obstructive sleep apnea) Alcohol abuse Mixed hyperlipidemia Type 2 diabetes mellitus Syncope and collapse Essential hypertension History of DVT (deep vein thrombosis) Wears hearing aid Wears glasses Fibromyalgia Alcohol use Diabetes DVT (deep venous thrombosis) Thinning of skin Restless legs (Unknown) Back pain Injury of head and neck Passed out Dietary restriction Gastric reflux Former smoker Leg cramps History of stress test History of Holter monitoring Cardiology follow-up encounter History of rheumatic fever Encounter for screening for COVID-19 Fatigue Diabetes mellitus inspire device implant intracular lenses x2 Raynaud disease Cataracts, bilateral Chronic kidney disease, stage 3 HTN (hypertension) Hypertriglyceridemia Hyperlipidemia Prostate Tissues Osteoarthritis Gout Chest pain Home Medications ?Medication ?Instructions ?Recorded ?Last Taken ?Type duloxetine 60 mg capsule,delayed 60 mg PO .EVERY 2 DAYS depression 04/17/14 07/26/24 History release losartan 25 mg tablet 25 mg PO DAILY blood pressure 04/17/14 07/29/24 History atorvastatin 20 mg tablet 20 mg PO QHS 06/04/21 07/28/24 History blood sugar diagnostic (OneTouch 09/06/22 Unknown History Verio test strips) ketoconazole 2 % shampoo 1 applic topical 2XW PRN PRN 09/06/22 Unknown History dupilumab 300 mg/2 mL subcutaneous 300 mg subcut QMONTH 11/23/22 07/20/24 History pen injector (Dupixent) ascorbate calcium (vitamin C) 500 1 g PO DAILY 08/01/23 07/28/24 History mg tablet levothyroxine 50 mcg capsule 50 mcg PO DAILY 08/01/23 07/29/24 History pyridoxine (vitamin B6) 100 mg 100 mg PO DAILY 08/01/23 07/28/24 History tablet omeprazole 40 mg capsule,delayed 40 mg PO BID 08/03/23 07/29/24 History release cyanocobalamin (vitamin B-12) 1,000 mcg PO DAILY 11/29/23 07/28/24 History 1,000 mcg tablet (Vitamin B-12) folic acid 1 mg tablet 1 mg PO DAILY #90 tabs 01/16/24 07/28/24 Rx amlodipine 5 mg tablet 5 mg PO QHS 06/25/24 07/28/24 History cholecalciferol (vitamin D3) 25 2,000 unit PO DAILY vitamin 06/25/24 07/28/24 History mcg (1,000 unit) capsule tizanidine 4 mg tablet 8 mg PO QHS muscle 06/25/24 07/28/24 History spasticity/insomnia/leg restlessness verapamil 240 mg tablet,extended 240 mg PO 1500 07/05/24 07/28/24 History release apixaban 5 mg tablet (Eliquis) 5 mg PO BID 07/23/24 07/25/24 History gabapentin 600 mg tablet 600 mg PO TID 07/23/24 07/29/24 History Allergy/AdvReac Type Severity Reaction Status Date / Time tamsulosin Allergy Severe Blacked Verified 07/29/24 07:31 out, Passed out meloxicam Allergy Unknown Decrease Verified 07/29/24 07:31 in kidney function alfuzosin HCl (From Allergy Unknown Verified 07/29/24 07:31 Uroxatral) ezetimibe (From Zetia) Allergy Pain in Verified 07/29/24 07:31 joints pramipexole di-HCl (From Allergy Other Verified 07/29/24 07:31 Mirapex) simvastatin (From Zocor) Allergy Pain in Verified 07/29/24 07:31 joints celecoxib (From Celebrex) AdvReac Unknown Unknown Verified 07/29/24 07:31 lisinopril AdvReac Other Verified 07/29/24 07:31 Family History Brother Myocardial infarction, Onset Age: 58 Sister Cancer Breast Grandfather Myocardial infarction Other Arthritis Breast cancer FH: defects Surgical History History of transurethral resection of prostate History of esophagogastroduodenoscopy (EGD) Hx of colonoscopy History of repair of anterior cruciate ligament of left knee H/O cataract removal with insertion of prosthetic lens History of total right knee replacement (TKR) Social History Smoking Status: Former smoker alcohol intake: current alcohol intake frequency: 0-2 drinks per day details: 4-5 shots of [place] daily substance use type: does not use caffeine: Yes Type: coffee Number of servings: 3 what type of physical activity do you participate in: none Review of Systems (Anesthesia) ROS Narrative System reviewed and no additional complaints, except as documented.
[2024-07-29] MEDS: Cefazolin 2 GM in Syringe IV (08:38)
[2024-07-29] MEDS: dexAMETHasone 10 MG/ML Vial IV (08:45)
--- NOTE | 2024-07-29 08:45 | KNEE_PTH ---
PATIENT: TEMO GARRISON LOC: MS[facility] U#:[id number] AGE/SX: 83/M ROOM: IL305 RE07/29/[address]: Dr. Joseph Wick MD : 1940 BED: 1 DIS: 07/31/2024 SPEC #: [id number] RECD: 07/29/24 11:32 STATUS: INÉS REAmol #: [id number] DHEERAJ: 07/29/24 08:[address]: Justino Moraes DEPT: SURGICAL PATHOLOGY RECD BY: Elba Ugalde ENTERED: 07/29/24 13:22 SP TYPE: TOTAL KNEE OTHR DR: Dr. Woodrow Al MD Tissues: Knee, NOS Procedures: Decalcification bone/plaque Surgery Specimen Level IV HEADER OPERATION: Total knee replacement robotic arm assist PRE-OP DIAGNOSIS: Severe left knee posttraumatic osteoarthritis TISSUE SUBMITTED: Bone and tissue left knee MICROSCOPIC DIAGNOSIS Bone and soft tissue, left knee, total knee replacement/resection: Pieces of bone with mild degenerative osteoarthritic changes. Fibroadipose tissue, fibroconnective tissue and reactive synovial tissue. SHEY: 08/01/2024 MICROSCOPIC DESCRIPTION Slides are reviewed. GROSS DESCRIPTION Received is one container designated bone and soft tissue left knee. The specimen consists of multiple fragments of lauren-yellow bone measuring in aggregate 14.5 x 11.0 x 2.0 cm. Also in the specimen container are multiple fragments of yellow-white soft tissue measuring in aggregate 8.0 x 4.0 x 1.5 cm. A number of bony fragments contain articular surfaces consistent with tibial plateau and femoral condyle and displaying prominent osteophyte formation, eburnation, and bone erosion. Lubricating Machine Tender sections are submitted in two cassettes as follows: 1 - soft tissue, 2 - bone after decalcification. / AM. 07/29/2024 TC:5 CPT: 75456, 38198
[2024-07-29 08:51] LABS: Bedside Glucose 145 mg/dL (74-106)
[2024-07-29] MEDS: Joint Pain Solution (NO KETOROLAC) IV (09:29)
--- NOTE | 2024-07-29 10:01 | PCM.OPRPT ---
Report of Operation Date of Procedure: 07/29/24 Pre-Operative Diagnosis: Left knee primary osteoarthritis Post-Operative Diagnosis: Left knee primary osteoarthritis Surgery/Procedure Performed:: Left knee minimally invasive robotic assisted total knee replacement Description of Surgical Findings:: Stable knee with good patella tracking Surgeon: Justino Moraes aerobics instructor: Jun Mayen Type of Anesthesia: General Anesthesiologist: Vicente Law Special Medications: 2 g Ancef, 1 g TXA at incision, 1 g TXA closure, 10 mg Decadron, joint cocktail (5 mg Duramorph, 30 mL of 0.5% Ropivicaine, 1000 units of epinephrine, 30 mg of Toradol) Specimen's removed: Bony cuts Estimated Blood Loss (mL): 100 Fluids Replaced: 1200 mL crystalloid Description of Procedure: Implants used: 1. Torrie size 4 triathlon cruciate retaining distal femoral press-fit component 2. Torrie size 5 press-fit tritanium tibial baseplate 3. Welch X3 10 mm CS polyethylene Brief history operative indications: 83-year-old m with history of left knee osteoarthritis with radiographic findings with loss of joint space, osteophyte formation and subchondral sclerosis. Failed conservative measures as mentioned in the H&P. Discussion of total knee arthroplasty as well as risk and benefits were discussed the patient including but not limited to blood loss, DVTs, PEs, neurovascular damage, general risk of anesthesia including loss of life, and stiffness or instability were discussed with patient. Patient demonstrated understanding and was able to sign informed consent. Procedure: On the date of procedure patient's left lower extremity was marked in the preoperative area. The patient was then taken back to the operating room where the patient was placed on the table in the supine position. All bony prominences were identified a well-padded. Anesthesia assumed control of the C-spine and airway and remained controlled throughout the remainder of the procedure. A tourniquet was placed on the left upper thigh and the leg was prepped in a sterile fashion. The surgeon then scrubbed at this time .Upon reentering the room left lower extremity was draped in a standard orthopedic fashion. A timeout was then called and everyone agreed upon the side, the site, the procedure to be performed, patient's identity and antibiotics given. Esmarch bandage was used to exsanguinate the extremity and the tourniquet was placed up to 250 mmHg with the knee in flexion. A midline skin incision was made and sharp dissection was taken down through skin subcutaneous tissue and fat. The standard medial parapatellar incision was made and the patella was subluxed laterally. An Appropriate deep MCL release was done and the fat pad was resected. Our attention was then directed to the patella. The patella was inspected and found to have appropriate cartilage for retention. The knee was then flexed up in 2 femoral pins were placed inside the incision and 2 tibial pins were placed outside the incision in the medial tibia bicortically. Once this was completed the 2 checkpoints in the femur and tibia were placed. Knee was then flexed up and the bony landmarks were registered. Once this was completed knee was taken through range of motion and manually stressed allowing us to a plan for an appropriate tibial cut. The robotic arm was brought into the field sterilely and checkpoint and saw were registered. Based on the patient's deformity the tibial cut was made neutral to the tibial axis. At this time the tensioner was then placed in the joint and ligament tension was checked at 90 degrees and full extension. Based on the patient's ligamentous tension appropriate adjustments were made to the operative plan and ligament releases were done. Once we were happy with our operative plan with balanced flexion and extension gaps our attention was directed to the femur. The robot was brought into the field sterilely and registered. Posterior condylar cuts, anterior chamfer cuts and anterior cuts were appropriately made for a size 4 femur. When these were completed the saws were switched out in the distal femoral and posterior chamfer cuts were made. Protecting the soft tissue throughout this time. A size 5 tibial base plate was selected. the knee was flexed to 90 degrees and the soft tissues and posterior osteophytes were removed from the joint. 40 cc of the periarticular injection was injected into the posterior medial corner of the joint. The appropriate trials were then placed on the femur and tibia. A trial polyethylene was trialed to ensure proper balancing and stability of the knee. The appropriate tibial internal rotation was then marked with a bovie. Our attention was then directed to the patella. Patellar tracking was checked and deemed appropriate. Once we were happy lug holes were drilled for the femur and trial components were removed. the tibia was subluxed and pinned into place and the keel was punched and drilled appropriately. Final components were verified and opened, and cement was mixed in a vacuum. Bucky Box Simplex cement was used. The wound was copiously irrigated with normal saline. When the cement was ready the components were impacted into place starting with the tibia, femur. The trial poly component was placed and the knee was placed in full extension. All excess cement was removed in the process. Once the cement had cured the tracking, alignment and balance were verified and a size 10 mm CS polyethylene component was placed. Once the final components were placed a 3-minute dilute Betadine lavage was performed followed by an Irrisept lavage was performed and the wound was copiously irrigated with normal saline solution and the periarticular injection was given. The wound was closed in a layer raya fashion using #1 vicryl interrupted sutures for the arthrotomy, 2-0 interrupted Vicryl suture for the subcuticular layer and domenic for final skin closure. A sterile compressive dressing was then placed. The patient was then awakened from anesthesia, transferred to the [facility] and transferred to the PACU for recovery. Post op plan DVT ppx: Patient will resume Eliquis tomorrow morning 5 mg twice daily, thigh high compression stockings Follow up: in office in 2 weeks for wound check PT: to start POD #0 at hospital, outpatient PT should be arranged. My physician assistant store director was a vital part of this case. He was important in appropriate retraction during the case, and protection of soft tissues during bony cuts. His intimate knowledge of the case and my steps aided in safe and expedient completion of the procedure as well as appropriate position of the leg during the case. He was also vital in assisting with closure under my direct supervision. Due to the complexity of this case robotic arm was used to assist in the surgery to improve accuracy and clinical outcomes. Complications No intraoperative complications Admit VTE Documentation VTE Present on Admission: No VTE Mechan Device Prophylaxis: SCD's and Thigh High CHINMAY Hose VTE Pharm Prophylaxis ordered?: Yes
[2024-07-29] MEDS: TXA in NS 100ml (Placed in Wound) OPERA.SITE (10:03)
--- NOTE | 2024-07-29 11:45 | PCM.POST.ANE ---
Anesthesia: Postop Eval I Current Vital Signs Temperature: 97.2 F Pulse Rate: 62 Blood Pressure: 105/53 Respiratory Rate: 14 Pulse Ox: 94 Oxygen Delivery Method: Room Air Assessment Airway patent: Yes Spontaneous unlabored respirations: Yes Mental status: Awake and Calm nausea: No Vomiting: No Anesthesia Complication: No Fluid Hydration Crystalloid volume administer (ml): 1,200 Total IV fluid infused: 1,200 Progress Note Anesthesia document: Postop Eval 1 completed: Yes
[2024-07-29] MEDS: Lactated Ringers 1,000 ML 125 ML IV (11:57)
--- NOTE | 2024-07-29 14:26 | CASEMGMT ---
KALE EMANUEL Assessment: Face to Face with pt for initial transition planning/care coordination assessment. KALE EMANUEL introduced self and role at [facility], pt voices understanding and consents to assessment. Pt is A&O x4 and answers all questions appropriately at this time. Pt sitting up in bed with oxygen on in no distress. Care providers, pharmacy, and demographics verified/updated. Admitting Dx: TKR Strata Score: NA PCP:Mikaela Specialists:roaslinda Moraes; Tyson, neuro Preferred Pharmacy: [facility] Retail Insurance: [employer] [facility] Prescription Benefit: yes LNOK: Candi Montanez, Living Arrangements: Pt lives with in a two story home with 2 steps to enter with a rail. Pt reports he was I in ADLs and denies concerns at home. Transportation: Pt drives self and denies concerns with transportation. Pt will transport pt until he can drive again. DME:raised toilet seat, cane, FWW, shower chair, BGM with sufficient supply of strips and lancets HHC/SNF: Denies hx of Pt states no concerns with going home at time of dc. Pt has outpt therapy set up at [facility] on this week. Pt has not had therapy yet. Pt states no further concerns/needs. CM to follow. Advised pt to ask CM if any further question/concerns/needs arise, voices understanding. Pt Goal: Home with outpt therapy Plan: Home with outpt therapy pending therapy khris Galaviz RN, CM
[2024-07-29] MEDS: Cefazolin 1 GM/50 ML BAG IV ×2 (14:28→22:09)
[2024-07-29] MEDS: Losartan Potassium 25 MG Tablet PO (14:29)
[2024-07-29] MEDS: Folic Acid 1 MG Tablet PO (14:29)
[2024-07-29] MEDS: Pantoprazole Sodium 40 MG Tablet PO ×2 (14:29→22:07)
[2024-07-29] MEDS: Cyanocobalamin 500 MCG Tablet 1000 MCG PO (14:30)
[2024-07-29] MEDS: Senna/Docusate Sodium 1 Tablet 2 TABLET PO ×2 (14:30→22:07)
[2024-07-29] MEDS: Cholecalciferol (VIT D3) 25 MCG TABLET (1,000 UNITS) 50 MCG PO (14:30)
[2024-07-29] MEDS: Pyridoxine HCl 100 MG Tablet PO (14:30)
[2024-07-29] MEDS: Ascorbic Acid 500 MG Tablet 1000 MG PO (14:30)
--- NOTE | 2024-07-29 14:52 | CASEMGMT ---
Social Work- Pt reports that she has directives naming , Candi as primary agent. Copy of directive requested for chart. SUZANNA Rutherford
--- NOTE | 2024-07-29 16:37 | POSTOPAN2_ITS ---
Anesthesia Postop Eval I Sum Postop Eval Completion status Anesthesia document: Postop Eval 1 completed: Yes Anesthesia Postop Eval I Summary Anesthesia Postop Eval I Summary: Anesthesia Postop Eval I: Assessment Summary Airway patent Yes 07/29/24 11:46 [email or web address] Spontaneous unlabored Yes 07/29/24 11:46 [email or web address] [email or web address] respirations Mental status Awake,Calm 07/29/24 11:46 [email or web address] [email or web address] nausea No 07/29/24 11:46 [email or web address] Vomiting No 07/29/24 11:46 [email or web address] Anesthesia Postop Eval I: Fluid Summary Crystalloid volume administer 1,200 07/29/24 11:46 [email or web address] (ml) Colloids volume administered ( ml) Blood Product volume administered (ml) Total IV fluid infused 1,200 07/29/24 11:46 [email or web address] Anesthesia Postop Eval I: Summary Notes Anesthesia Complication No 07/29/24 11:46 [email or web address] Anesthesia Complication Comment: Post-operative progress note Anesthesia: Postop Eval II Evaluation Mental status: Awake and Calm Pain Level: 1 nausea: No Vomiting: No Complications Anesthesia Complication: No
--- NOTE | 2024-07-29 16:37 | PCM.POSTANE2 ---
Anesthesia Postop Eval I Sum Postop Eval Completion status Anesthesia document: Postop Eval 1 completed: Yes Anesthesia Postop Eval I Summary Anesthesia Postop Eval I Summary: Anesthesia Postop Eval I: Assessment Summary Airway patent Yes 07/29/24 11:46 FULL STACK PHP [email or web address] Spontaneous unlabored Yes 07/29/24 11:46 FULL STACK PHP [email or web address] respirations Mental status Awake,Calm 07/29/24 11:46 FULL STACK PHP [email or web address] nausea No 07/29/24 11:46 FULL STACK PHP [email or web address] Vomiting No 07/29/24 11:46 FULL STACK PHP [email or web address] Anesthesia Postop Eval I: Fluid Summary Crystalloid volume administer 1,200 07/29/24 11:46 FULL STACK PHP [email or web address] (ml) Colloids volume administered ( ml) Blood Product volume administered (ml) Total IV fluid infused 1,200 07/29/24 11:46 FULL STACK PHP [email or web address] Anesthesia Postop Eval I: Summary Notes Anesthesia Complication No 07/29/24 11:46 FULL STACK PHP [email or web address] Anesthesia Complication Comment: Post-operative progress note Anesthesia: Postop Eval II Evaluation Mental status: Awake and Calm Pain Level: 1 nausea: No Vomiting: No Complications Anesthesia Complication: No
[2024-07-29] MEDS: Ensure Surgery 237 ML LIQUID PO (17:06)
--- NOTE | 2024-07-29 18:07 | CON.PCM.HO_ITS ---
Assessment & Plan Assessment/Plan (1) S/P TKR (total knee replacement): (2) Type 2 diabetes mellitus: PLAN: This is a 83-year-old gentleman seen after left knee minimally invasive TKR. 1. Perioperative management of left knee primary osteoarthritis after left knee minimally invasive robotic assisted total knee replacement: Patient is admitted on [facility] floor. Had acute urinary retention without bladder sensation. Straight catheterization was done and 600 mL urine was done. Patient has a history of BPH. Tamsulosin is listed as allergy.. Bladder scan Q4 hourly and if patient retains x 2, will need Chadwick catheter. Incentive spirometry. Pain control. PT and OT. DVT prophylaxis as per operative surgeon 2. Type 2 diabetes mellitus: Accu-Chek before meals and at bedtime with Humalog sliding scale coverage and hypoglycemia protocol. 3. Chronic DVT: Patient on apixaban 5 mg twice daily continued 4. Hypertension: On losartan and amlodipine continued. Patient on verapamil, continue 5. Hypothyroidism: Levothyroxine continued 6. Dyslipidemia: On atorvastatin continued 7. CKD stage IV: BUNs/creatinine elevated for long time. In March 2024 it was 30/2.42. In July 08.. Monitor BUN/creatinine. 8. Other multiple comorbidities include chronic back pain, restless leg, fibromyalgia and obstructive sleep apnea: CPAP ordered. HPI Consult Data Date of Consult: 07/29/24 HPI Narrative Reason for Consultation: Perioperative management after left knee TKR HPI Narrative: TEMO GARRISON, is a 83 M was seen for perioperative management after Left knee minimally invasive robotic assisted total knee replacement. Patient could not feel bladder fullness sensation although his bladder was full and a straight catheter was put to drain 600 mL urine. That patient had history of BPH and had TURP/prostate rollator by Dr. Prado. Patient denies any chest pain, shortness of breath or other acute issues. [facility] Medical History Abrasion Ankle injury Cancer Thyroid disease Arthritis History of renal disease High cholesterol Back pain History of echocardiogram Tilt table evaluation Hx of fracture of ankle Chronic fatigue Chronic pain Squamous cell cancer of external ear ROSITA (obstructive sleep apnea) Alcohol abuse Mixed hyperlipidemia Type 2 diabetes mellitus Syncope and collapse Essential hypertension History of DVT (deep vein thrombosis) Wears hearing aid Wears glasses Fibromyalgia Alcohol use Diabetes DVT (deep venous thrombosis) Thinning of skin Restless legs (Unknown) Back pain Injury of head and neck Passed out Dietary restriction Gastric reflux Former smoker Leg cramps History of stress test History of Holter monitoring Cardiology follow-up encounter History of rheumatic fever Encounter for screening for COVID-19 Fatigue Diabetes mellitus inspire device implant intracular lenses x2 Raynaud disease Cataracts, bilateral Chronic kidney disease, stage 3 HTN (hypertension) Hypertriglyceridemia Hyperlipidemia Prostate Tissues Osteoarthritis Gout Chest pain Home Medications ?Medication ?Instructions ?Recorded ?Last Taken ?Type duloxetine 60 mg capsule,delayed 60 mg PO .EVERY 2 DAYS depression 04/17/14 07/26/24 History release losartan 25 mg tablet 25 mg PO DAILY blood pressure 04/17/14 07/29/24 History atorvastatin 20 mg tablet 20 mg PO QHS 06/04/21 07/28/24 History blood sugar diagnostic (OneTouch 09/06/22 Unknown History Verio test strips) ketoconazole 2 % shampoo 1 applic topical 2XW PRN PRN 09/06/22 Unknown History dupilumab 300 mg/2 mL subcutaneous 300 mg subcut QMONTH 11/23/22 07/20/24 History pen injector (Dupixent) ascorbate calcium (vitamin C) 500 1 g PO DAILY 08/01/23 07/28/24 History mg tablet levothyroxine 50 mcg capsule 50 mcg PO DAILY 08/01/23 07/29/24 History pyridoxine (vitamin B6) 100 mg 100 mg PO DAILY 08/01/23 07/28/24 History tablet omeprazole 40 mg capsule,delayed 40 mg PO BID 08/03/23 07/29/24 History release cyanocobalamin (vitamin B-12) 1,000 mcg PO DAILY 11/29/23 07/28/24 History 1,000 mcg tablet (Vitamin B-12) folic acid 1 mg tablet 1 mg PO DAILY #90 tabs 01/16/24 07/28/24 Rx amlodipine 5 mg tablet 5 mg PO QHS 06/25/24 07/28/24 History cholecalciferol (vitamin D3) 25 2,000 unit PO DAILY vitamin 06/25/24 07/28/24 History mcg (1,000 unit) capsule tizanidine 4 mg tablet 8 mg PO QHS muscle 06/25/24 07/28/24 History spasticity/insomnia/leg restlessness verapamil 240 mg tablet,extended 240 mg PO 1500 07/05/24 07/28/24 History release apixaban 5 mg tablet (Eliquis) 5 mg PO BID 07/23/24 07/25/24 History gabapentin 600 mg tablet 600 mg PO TID 07/23/24 07/29/24 History Allergy/AdvReac Type Severity Reaction Status Date / Time tamsulosin Allergy Severe Blacked Verified 07/29/24 07:31 out, Passed out meloxicam Allergy Unknown Decrease Verified 07/29/24 07:31 in kidney function alfuzosin HCl (From Allergy Unknown Verified 07/29/24 07:31 Uroxatral) ezetimibe (From Zetia) Allergy Pain in Verified 07/29/24 07:31 joints pramipexole di-HCl (From Allergy Other Verified 07/29/24 07:31 Mirapex) simvastatin (From Zocor) Allergy Pain in Verified 07/29/24 07:31 joints celecoxib (From Celebrex) AdvReac Unknown Unknown Verified 07/29/24 07:31 lisinopril AdvReac Other Verified 07/29/24 07:31 Family History Brother Myocardial infarction, Onset Age: 58 Sister Cancer Breast Grandfather Myocardial infarction Other Arthritis Breast cancer FH: defects Surgical History History of transurethral resection of prostate History of esophagogastroduodenoscopy (EGD) Hx of colonoscopy History of repair of anterior cruciate ligament of left knee H/O cataract removal with insertion of prosthetic lens History of total right knee replacement (TKR) Social History Smoking Status: Former smoker alcohol intake: current alcohol intake frequency: 0-2 drinks per day details: 4-5 shots of Perry daily substance use type: does not use caffeine: Yes Type: coffee Number of servings: 3 what type of physical activity do you participate in: none ROS ROS Narrative Constitutional: Reports fatigue and weakness. No fever. HEENT: Reports systems reviewed and no addt'l complaints, except as documented Respiratory/Chest: No acute shortness of breath or respiratory distress or wheezing. CVS: No chest pain or shortness of breath. No history of MO Gastrointestinal: Denies coffee ground emesis, hematemesis or vomiting Genitourinary: Denies burning urination or new urinary tract symptoms. Acute urinary retention. Musculoskeletal: Had left knee surgery today. Denies acute joint pain or limited range of motion. No acute injury Neurologic: Denies seizure-like symptoms. skin: No ulcer. No rash Endocrinology: Reports systems reviewed and no addt'l complaints, except as documented Hematologic/Lymphatic: Reports systems reviewed and no addt'l complaints, except as documented Rest 14 ROS are negative except as mentioned in HPI Physical Exam Narrative General: Alert, Oriented x3, Cooperative HEENT: Atraumatic, PERRLA, EOMI, Normocephalic Oral: No Gingival or Mucosal Lesions/ Ulcerations Neck: Supple, No JVD, Negative Carotid Bruits Chest wall/Lungs: Air entry diminished in bilateral lung bases. No crepitation/rhonchi Cardiovascular: Regular rate, Regular Rhythm, Normal S1, Normal S2, No M/G/R Abdomen: Bowel Sounds Present, Soft, Non Tender, Non-Distended : Acute urine retention. Required a straight cath, drained 600 mL. No dysuria. No renal angle tenderness. No suprapubic tenderness. Extremities: No edema, Capillary Refill Less than 3 Seconds Skin: Left knee surgical dressing dry. Covered with CHINMAY hose. No acute bleeding. Musculoskeletal: No Tenderness to Palpation of Joints or Extremities Neurological: Cranial nerves II-XII grossly intact, DTR 2+/4. No acute focal neurological deficit. Psych/Mental Status: Normal Affect, Appropriate. Lab / Micro Data Labs: Laboratory Results - last 24 hr 07/29/24 07:23: POC Glucose 145 H Imaging Radiology Impression Knee X-Ray 07/29/24 07:07 IMPRESSION: New postoperative changes related to left total knee arthroplasty. Electronically Signed: Emanuel Marshall MD at 12:13 EDT , Charges/Coding Visit Charges Office Visits / Consults: [id number] OV L3 New 30min
[2024-07-29] MEDS: oxyCODONE 5 MG Tablet PO (19:47)
[2024-07-29] MEDS: Atorvastatin Calcium 20 MG Tablet PO (22:07)
[2024-07-29] MEDS: amLODIPine 5 MG Tablet PO (22:07)
[2024-07-29] MEDS: Verapamil SR 240 MG Tablet PO (22:07)
[2024-07-29] MEDS: tiZANidine HCl 2 MG Tablet 8 MG PO (22:08)
[2024-07-29] MEDS: 0.9% Saline Lock 10 ML Syringe IV (22:09)
[2024-07-30] VITALS (7 sets, daily range): BP systolic 109–143; BP diastolic 60–69; PULSE 76–94; RESP 16–18; TEMP 36.7–37.2; O2SAT 93–97; BMI 28.2
[2024-07-30] MEDS: oxyCODONE 5 MG Tablet PO ×2 (02:24→07:01)
[2024-07-30] MEDS: Acetaminophen 500 MG Tablet 1000 MG PO ×3 (05:14→22:23)
[2024-07-30] MEDS: Gabapentin 600 MG Tablet PO ×3 (05:14→22:23)
[2024-07-30] MEDS: Levothyroxine 50 MCG Tablet PO (05:15)
[2024-07-30] MEDS: APIXABAN 5 MG TABLET PO ×2 (05:16→22:25)
[2024-07-30 06:50] LABS: Hematocrit 33.2 % (40-54); Hemoglobin 10.9 g/dL (13.0-16.5); Mean Corp Hgb Conc 32.8 g/dL (32-36); Mean Corpuscular Hgb 32.4 pg (27.0-32.0); Mean Corpuscular Volume 98.8 fL (80-94); Mean Platelet Vol. 10.9 fl (6.2-12.0); Platelet Count 191 K/mm3 (150-450); RBC Distribution Width CV 13.8 % (11.6-14.6); Red Blood Count 3.36 M/mm3 (4.6-6.2); White Blood Count 13.1 K/mm3 (4.4-11.0)
[2024-07-30 07:08] LABS: Anion Gap 5 (5-15); BUN 23 mg/dL (7-18); Calcium,Total 8.4 mg/dL (8.5-10.1); Chloride 105 mmol/L (98-107); EST Glomerular Filtration Rate 32 mL/min (>60); Est Glom Filt Rate - Afr Amer 39 mL/min (>60); Glucose 179 mg/dL (74-106); Potassium 4.6 mmol/L (3.5-5.1); Sodium Level 137 mmol/L (136-145)
--- NOTE | 2024-07-30 07:36 | PN.HOSP_ITS ---
Reason for Visit Reason for Visit: Diagnoses Type 2 diabetes mellitus without complications (07/29/24) Encounter for other preprocedural examination (07/29/24) Presence of unspecified artificial knee joint (07/29/24) Subjective Subjective Patient is an 83-year-old gentleman who underwent right total knee arthroplasty by orthopedic surgery consult was placed to the hospitalist service Objective Data Objective Data Vital Signs: Vital Signs Temp Pulse Resp BP Pulse Ox O2 Del Method O2 Flow Rate 98.1 F 82 18 109/63 97 Room Air 2 07/30/24 05:10 07/30/24 05:10 07/30/24 05:10 07/30/24 05:10 07/30/24 05:10 07/30/24 05:10 07/29/24 16:18 Oxygen Flow Rate (L/min) 2 Oxygen Delivery Method Room Air Weight: 86.4 kg Body Mass Index (BMI) 28.2 Intake & Output: Intake and Output for Last 24 Hours 07/28/24 07/29/24 07/30/24 23:59 23:59 23:59 Intake Total 3199 / 3199 250 / 250 Output Total 600 / 600 800 / 800 Balance 2599 / 2599 -550 / -550 Lab / Micro Data 07/30/24 06:26 07/30/24 06:26 Labs: Laboratory Results - last 24 hr 07/29/24 07:23: POC Glucose 145 H 07/30/24 06:26: WBC 13.1 H, RBC 3.36 L, Hgb 10.9 L, Hct 33.2 L, MCV 98.8 H, MCH 32.4 H, MCHC 32.8, RDW Std Deviation 50.0 H, RDW Coeff of Zuleyka 13.8, Plt Count 191, MPV 10.9, Sodium 137, Potassium 4.6, Chloride 105, Carbon Dioxide 27.0, Anion Gap 5, BUN 23 H, Creatinine 2.10 H, Estim Creat Clear Calc 29.00, Est GFR (MDRD) Af Amer 39 L, Est GFR (MDRD) Non-Af 32 L, BUN/Creatinine Ratio 11.0, G lucose 179 H, Calcium 8.4 L Micro: Microbiology 07/12/24 13:39 Swab (Method) Nasal Screen MRSA/MSSA - Final Radiography Diagnostic Testing: Radiology Impression Knee X-Ray 07/29/24 07:07 IMPRESSION: New postoperative changes related to left total knee arthroplasty. Electronically Signed: Emanuel Marshall MD at 12:13 EDT , Physical Exam Narrative GENERAL: cooperative HEENT: Atraumatic; normocephalic EYES; Anicteric, Normal Conjunctiva NECK; supple, normal thyroid, RESPIRATORY: Diminished to auscultation CARDIOVASCULAR: Regular S1 S2, GI: soft, normoactive bowel sounds, : No Renal angle tenderness; EXTREMITIES: No edema, no clubbing, MUSCULOSKELETAL: Knee in surgical dressing NEURO: Awake; no lateralizing signs. SKIN: No Rash PSYCH; Flat affect Assessment & Plan Assessment/Plan (1) S/P TKR (total knee replacement): (2) Type 2 diabetes mellitus: PLAN: This is a 83-year-old gentleman seen after left knee minimally invasive TKR. 1. Status post left knee minimally invasive TKR ? Procedure was performed on 07/30/2024. Patient postoperative orders regarding pain management, PT OT DVT prophylaxis as well as diet management deferred to primary service 2. Hypertension ? Blood pressure controlled, home medications continued with dose adjustment as needed 3. Hypothyroidism ? Patient is on levothyroxine home dose continued 4. Dyslipidemia ?Patient is on statin therapy, continued at home dose 5. Diabetes mellitus type II -patient's oral hypoglycemics held. Placed on long acting insulin, Accu-Cheks a.c. and at bedtime and covered with sliding scale insulin 6. Chronic kidney disease stage IV ? Kidney function at baseline monitoring 7. Obstructive sleep apnea -consistent use of CPAP encouraged 8. VTE ? With previous DVT patient is on apixaban plan is to resume when okay with general surgery 9. Chronic back pain ? Pain medications as needed 10. BPH with urinary retention ? Consult placed to Dr Prado 11. Restless leg syndrome 12. Fibromyalgia Time spent in the patient's overall evaluation,decision-making process, review of diagnostic data, adjustment of management, discussion with other providers, nursing nursing and ancillary staff involved in patient's care documentation, 38 Minutes Charges/Coding Visit Charges Inpatient E&M: 98303 Subs Hosp L2
--- NOTE | 2024-07-30 08:44 | CASEMGMT ---
Met with patient to complete MIX form. MIX form explained to patient who voiced understanding and signed form. Original form placed in pt?s chart and copy provided to patient. Carol Okeefe, Discharge Planning Asst
--- NOTE | 2024-07-30 08:46 | PN.ORTHO_ITS ---
Subjective Subjective The patient was sitting in bed upon examination. Patient denies any chest pain, shortness of breath, dizziness, lightheadedness, nausea or vomiting, or calf pain. Patient states the pain block has worn off and he has increased pain. At rest his pain is 7-8/10. Medication does help temporarily. Patient has been dealing with urinary retention postoperatively. He has had procedure by local urologist Dr. Prado approximately 4 months ago. They did have to do a straight cath overnight in which he had 750 mL. He has not been able to urinate since. Objective Data Objective Data Vital Signs: Vital Signs Temp Pulse Resp BP Pulse Ox O2 Del Method O2 Flow Rate 98.1 F 82 18 109/63 93 Room Air 2 07/30/24 05:10 07/30/24 05:10 07/30/24 05:10 07/30/24 05:10 07/30/24 07:45 07/30/24 07:44 07/29/24 16:18 Oxygen Flow Rate (L/min) 2 Oxygen Delivery Method Room Air Weight: 86.4 kg Body Mass Index (BMI) 28.2 Intake & Output: Intake and Output for Last 24 Hours 07/28/24 07/29/24 07/30/24 23:59 23:59 23:59 Intake Total 3199 / 3199 250 / 250 Output Total 600 / 600 800 / 800 Balance 2599 / 2599 -550 / -550 Lab / Micro Data 07/30/24 06:26 07/30/24 06:26 Labs: Laboratory Results - last 24 hr 07/29/24 07:23: POC Glucose 145 H 07/30/24 06:26: WBC 13.1 H, RBC 3.36 L, Hgb 10.9 L, Hct 33.2 L, MCV 98.8 H, MCH 32.4 H, MCHC 32.8, RDW Std Deviation 50.0 H, RDW Coeff of Zuleyka 13.8, Plt Count 191, MPV 10.9, Sodium 137, Potassium 4.6, Chloride 105, Carbon Dioxide 27.0, Anion Gap 5, BUN 23 H, Creatinine 2.10 H, Estim Creat Clear Calc 29.00, Est GFR (MDRD) Af Amer 39 L, Est GFR (MDRD) Non-Af 32 L, BUN/Creatinine Ratio 11.0, G lucose 179 H, Calcium 8.4 L Micro: Microbiology 07/12/24 13:39 Swab (Method) Nasal Screen MRSA/MSSA - Final Radiography Diagnostic Testing: Radiology Impression Knee X-Ray 07/29/24 07:07 IMPRESSION: New postoperative changes related to left total knee arthroplasty. Electronically Signed: Emanuel Marshall MD at 12:13 EDT , Physical Exam Narrative Vital signs stable and afebrile. SCDs and CHINMAY hose are in place bilaterally Patient is complaining of thigh discomfort secondary to tourniquet Left thigh is soft and supple Patient is able to plantarflex and dorsiflex actively. Sensation is intact to light touch to saphenous, sural, superficial and deep peroneal, and tibial distribution. Patient does have mild drainage over the distal one third of the Mepilex dressing. There is also drainage from the distal pin site dressing Negative Homans bilaterally, negative signs and symptoms of DVT. Const alert, oriented x3 and no apparent distress Assessment & Plan Assessment/Plan (1) Status post total left knee replacement: PLAN: 1. S/P left robotic assisted total knee arthroplasty POD #1 2. Continue Pain Medications: Tylenol and oxycodone. Due to patient's chronic kidney disease and anticoagulation treatment we are holding off of nonsteroidal anti-inflammatories 3. DVT Prophylaxis: Patient will resume his Eliquis today. He has past history of DVT. He was bridged preoperatively by his primary care physician. Patient denies any calf pain today. 4. PT/OT: Weightbearing as tolerated with walker. I advised the patient the importance of getting up and doing therapy despite pain. Most of his pain is primarily when weightbearing. 5. H & H: 10.9/33.2, asymptomatic. Labs have been reviewed 6. Reactive leukocytosis: 13.1, Afebrile. Patient did receive Decadron intraoperatively. No clinical signs of infection. 7. Chronic kidney disease: Labs have been stable. BUN/creatinine 23/2.1 with GFR 32. 8. Encouraged Incentive Spirometry 9. Patient is aware of postoperative constipation that can occur from 1-3 days postoperatively. Will continue with senna 2 tablets twice daily until first bowel movement. Patient was advised if not having a bowel movement after day 3 she is to contact orthopedics so appropriate change can be made. Patient voiced understanding. 10. Continue postoperative medical treatment per medicine 11. Postoperative urinary retention: Consult to urology has been placed. Patient has required straight catheter overnight and has not been able to urinate on his own. He has past history of surgery with urology. 12. Disposition: Due to patient's postoperative urinary retention consultation has been placed for urology. Patient currently sees the local urologist and he has had to have a straight cath overnight. He has having difficulty with urination. Appreciate recommendations from urology. Patient's pain is also increased at this time and we will continue with current pain regimen. Case was discussed with Justino Moraes. I would like physical therapy to continue to work with the patient. I do not feel he is appropriate for discharge home at this time. Plan will be for possible discharge home tomorrow if we have urology recommendations and pain is adequately controlled. I have reviewed the [place] Automated Rx Reporting System (OARRS) report for this patient for refill pattern and other prescriber involvement as part of the appropriate surveillance for the provision of acute and chronic controlled medications. The report was requested and reviewed on the date of this entry and was considered in the prescribing process. This dictation was created using voice recognition software. Phonetic and/or grammatical errors may exist.
[2024-07-30] MEDS: Cholecalciferol (VIT D3) 25 MCG TABLET (1,000 UNITS) 50 MCG PO (10:48)
[2024-07-30] MEDS: Losartan Potassium 25 MG Tablet PO (10:48)
[2024-07-30] MEDS: Pantoprazole Sodium 40 MG Tablet PO ×2 (10:48→22:25)
[2024-07-30] MEDS: DULoxetine Hcl 60 MG Capsule PO (10:48)
[2024-07-30] MEDS: Folic Acid 1 MG Tablet PO (10:48)
[2024-07-30] MEDS: Senna/Docusate Sodium 1 Tablet 2 TABLET PO ×2 (10:48→22:24)
[2024-07-30] MEDS: Ascorbic Acid 500 MG Tablet 1000 MG PO (10:48)
[2024-07-30] MEDS: Cyanocobalamin 500 MCG Tablet 1000 MCG PO (10:49)
[2024-07-30] MEDS: Pyridoxine HCl 100 MG Tablet PO (10:49)
[2024-07-30] MEDS: Ensure Surgery 237 ML LIQUID PO ×2 (13:51→17:08)
[2024-07-30] MEDS: 0.9% Saline Lock 10 ML Syringe IV (22:22)
[2024-07-30] MEDS: Atorvastatin Calcium 20 MG Tablet PO (22:24)
[2024-07-30] MEDS: amLODIPine 5 MG Tablet PO (22:24)
[2024-07-30] MEDS: tiZANidine HCl 2 MG Tablet 8 MG PO (22:25)
[2024-07-30] MEDS: Verapamil SR 240 MG Tablet PO (22:25)
[2024-07-31 03:58] VITALS: BP 129/53; PULSE 73; RESP 18; TEMP 36.9; O2SAT 92
[2024-07-31] MEDS: oxyCODONE 5 MG Tablet PO ×2 (04:00→12:29)
[2024-07-31] MEDS: Levothyroxine 50 MCG Tablet PO (05:51)
[2024-07-31] MEDS: Gabapentin 600 MG Tablet PO (05:51)
[2024-07-31] MEDS: Acetaminophen 500 MG Tablet 1000 MG PO (05:51)
[2024-07-31 06:48] LABS: Hemoglobin 9.8 g/dL (13.0-16.5); Mean Corp Hgb Conc 32.7 g/dL (32-36); Mean Corpuscular Hgb 32.3 pg (27.0-32.0); Mean Platelet Vol. 11.4 fl (6.2-12.0); Platelet Count 158 K/mm3 (150-450); RBC Distribution Width CV 14.3 % (11.6-14.6); RBC Distribution Width SD 51.2 fl (35.1-43.9); Red Blood Count 3.03 M/mm3 (4.6-6.2); White Blood Count 12.3 K/mm3 (4.4-11.0)
--- NOTE | 2024-07-31 07:07 | PN.HOSP_ITS ---
Reason for Visit Reason for Visit: Diagnoses Type 2 diabetes mellitus without complications (07/29/24) Encounter for other preprocedural examination (07/29/24) Presence of left artificial knee joint (07/29/24) Presence of unspecified artificial knee joint (07/29/24) Subjective Subjective Patient seen complains of discomfort in the knee. Hemoglobin down to 9.5. Patient started on p.o. iron Objective Data Objective Data Vital Signs: Vital Signs Temp Pulse Resp BP Pulse Ox O2 Del Method O2 Flow Rate 98.5 F 73 18 129/53 H 92 Nasal Cannula 2 07/31/24 03:58 07/31/24 03:58 07/31/24 03:58 07/31/24 03:58 07/31/24 03:58 07/31/24 04:03 07/31/24 04:03 Oxygen Flow Rate (L/min) 2 Oxygen Delivery Method Nasal Cannula Weight: 86.4 kg Body Mass Index (BMI) 28.2 Intake & Output: Intake and Output for Last 24 Hours 07/29/24 07/30/24 07/31/24 23:59 23:59 23:59 Intake Total 3199 / 3199 750 / 750 300 / 300 Output Total 600 / 600 1850 / 1850 Balance 2599 / 2599 -1100 / -1100 300 / 300 Lab / Micro Data 07/31/24 06:23 07/30/24 06:26 Labs: Laboratory Results - last 24 hr 07/30/24 06:26: Sodium 137, Potassium 4.6, Chloride 105, Carbon Dioxide 27.0, Anion Gap 5, BUN 23 H, Creatinine 2.10 H, Estim Creat Clear Calc 29.00, Est GFR (MDRD) Af Amer 39 L, Est GFR (MDRD) Non-Af 32 L, BUN/Creatinine Ratio 11.0, G lucose 179 H, Calcium 8.4 L 07/31/24 06:23: WBC 12.3 H, RBC 3.03 L, Hgb 9.8 L, Hct 30.0 L, MCV 99.0 H, MCH 32.3 H, MCHC 32.7, RDW Std Deviation 51.2 H, RDW Coeff of Zuleyka 14.3, Plt Count 158, MPV 11.4 Micro: Microbiology 07/12/24 13:39 Swab (Method) Nasal Screen MRSA/MSSA - Final Physical Exam Narrative GENERAL: cooperative HEENT: Atraumatic; normocephalic EYES; Anicteric, Normal Conjunctiva NECK; supple, normal thyroid, RESPIRATORY: Diminished to auscultation CARDIOVASCULAR: Regular S1 S2, GI: soft, normoactive bowel sounds, : No Renal angle tenderness; EXTREMITIES: No edema, no clubbing, MUSCULOSKELETAL: Knee in surgical dressing NEURO: Awake; no lateralizing signs. SKIN: No Rash PSYCH; Flat affect Assessment & Plan Assessment/Plan (1) S/P TKR (total knee replacement): (2) Type 2 diabetes mellitus: PLAN: This is a 83-year-old gentleman seen after left knee minimally invasive TKR. 1. Status post left knee minimally invasive TKR ? Procedure was performed on 07/30/2024. Patient postoperative orders regarding pain management, PT OT DVT prophylaxis as well as diet management deferred to primary service 2. Anemia ? Secondary to chronic disorder as well as expected blood loss anemia from surgery, monitoring H&H and transfuse if patient becomes symptomatic or hemoglobin falls below 7. Patient was started on p.o. iron 3. Essential hypertension ? Blood pressure controlled, home medications continued with dose adjustment as needed 4. Hypothyroidism ? Patient is on levothyroxine home dose continued 5. Diabetes mellitus type II -patient's oral hypoglycemics held. Placed on long acting insulin, Accu-Cheks a.c. and at bedtime and covered with sliding scale insulin 6. Chronic kidney disease stage IV ? Kidney function at baseline monitoring 7. Obstructive sleep apnea -consistent use of CPAP encouraged 8. VTE ? With previous DVT patient is on apixaban plan is to resume when okay with general surgery 9. Chronic back pain ? Pain medications as needed 10. BPH with urinary retention ? Consult placed to Dr Prado 11. Dyslipidemia ?Patient is on statin therapy, continued at home dose 12. Restless leg syndrome 12. Fibromyalgia 13. DVT prophylaxis ? Patient already on apixaban Time spent in the patient's overall evaluation,decision-making process, review of diagnostic data, adjustment of management, discussion with other providers, nursing nursing and ancillary staff involved in patient's care documentation, 36 Minutes Charges/Coding Visit Charges Inpatient E&M: 87908 Subs Hosp L2
[2024-07-31 07:21] LABS: Anion Gap 5 (5-15); BUN 28 mg/dL (7-18); BUN/Creat Ratio 14.3 RATIO (10-20); Calcium,Total 8.2 mg/dL (8.5-10.1); Chloride 108 mmol/L (98-107); Creatinine, Serum 1.96 mg/dL (0.70-1.30); EST Glomerular Filtration Rate 35 mL/min (>60); Est Glom Filt Rate - Afr Amer 42 mL/min (>60); Estimated Creatinine Clearance 31.07 ml/min; Glucose 195 mg/dL (74-106); Potassium 4.3 mmol/L (3.5-5.1); Sodium Level 138 mmol/L (136-145)
[2024-07-31 07:59] VITALS: O2SAT 95
[2024-07-31] MEDS: APIXABAN 5 MG TABLET PO (08:10)
[2024-07-31] MEDS: Iron Polysaccharide Complex 150 MG CAPSULE PO (08:10)
[2024-07-31] MEDS: Senna/Docusate Sodium 1 Tablet 2 TABLET PO (08:11)
[2024-07-31] MEDS: Pantoprazole Sodium 40 MG Tablet PO (08:11)
[2024-07-31] MEDS: Folic Acid 1 MG Tablet PO (08:11)
[2024-07-31] MEDS: Pyridoxine HCl 100 MG Tablet PO (08:11)
[2024-07-31] MEDS: Cholecalciferol (VIT D3) 25 MCG TABLET (1,000 UNITS) 50 MCG PO (08:12)
[2024-07-31] MEDS: Cyanocobalamin 500 MCG Tablet 1000 MCG PO (08:12)
[2024-07-31] MEDS: Ascorbic Acid 500 MG Tablet 1000 MG PO (08:12)
[2024-07-31 10:00] VITALS: PULSE 67; RESP 18; O2SAT 94
--- NOTE | 2024-07-31 11:03 | PCM.PN.ORT ---
Subjective Subjective The patient was sitting in bedside chair with family present upon examination. Patient denies any chest pain, shortness of breath, dizziness, lightheadedness, nausea or vomiting, or calf pain. Pain is controlled on medications. No adverse overnight events. Patient stayed an additional night secondary to pain and urinary retention. Consultation was placed for urology but urology has never seen the patient. Patient has been able to urinate on his own. Patient is a patient of Dr Prado in which she has had a procedure in the past 4 months. He is not able to take Flomax. Patient states the pain is improved today. He does look overall better on clinical exam. His pain is primarily when he is up weightbearing. Objective Data Objective Data Vital Signs: Vital Signs Temp Pulse Resp BP Pulse Ox O2 Del Method O2 Flow Rate 98.5 F 67 18 129/53 H 94 Room Air 2 07/31/24 03:58 07/31/24 10:00 07/31/24 10:00 07/31/24 03:58 07/31/24 10:00 07/31/24 10:00 07/31/24 04:03 Oxygen Flow Rate (L/min) 2 Oxygen Delivery Method Room Air Weight: 86.4 kg Body Mass Index (BMI) 28.2 Intake & Output: Intake and Output for Last 24 Hours 07/29/24 07/30/24 07/31/24 23:59 23:59 23:59 Intake Total 3199 / 3199 750 / 750 300 / 300 Output Total 600 / 600 1850 / 1850 Balance 2599 / 2599 -1100 / -1100 300 / 300 Lab / Micro Data 07/31/24 06:23 07/31/24 06:23 Labs: Laboratory Results - last 24 hr 07/31/24 06:23: WBC 12.3 H, RBC 3.03 L, Hgb 9.8 L, Hct 30.0 L, MCV 99.0 H, MCH 32.3 H, MCHC 32.7, RDW Std Deviation 51.2 H, RDW Coeff of Zuleyka 14.3, Plt Count 158, MPV 11.4, Sodium 138, Potassium 4.3, Chloride 108 H, Carbon Dioxide 25.0, Anion Gap 5, BUN 28 H, Creatinine 1.96 H, Estim Creat Clear Calc 31.07, Est GFR (MDRD) Af Amer 42 L, Est GFR (MDRD) Non-Af 35 L, BUN/Creatinine Ratio 14.3, Glucose 195 H, Calcium 8.2 L Micro: Microbiology 07/12/24 13:39 Swab (Method) Nasal Screen MRSA/MSSA - Final Physical Exam Narrative Vital signs stable and afebrile. SCDs and CHINMAY hose are in place bilaterally Patient is able to plantarflex and dorsiflex actively. Sensation is intact to light touch to saphenous, sural, superficial and deep peroneal, and tibial distribution. Stable Quarter size drainage over the distal one third of the Mepilex dressing, no drainage over the distal pin site dressing Negative Homans bilaterally, negative signs and symptoms of DVT. Const alert, oriented x3 and no apparent distress Assessment & Plan Assessment/Plan (1) Status post total left knee replacement: PLAN: 1. S/P left robotic assisted total knee arthroplasty POD #2 2. Continue Pain Medications: Tylenol and oxycodone. Due to patient's chronic kidney disease and anticoagulation treatment we are holding off of nonsteroidal anti-inflammatories 3. DVT Prophylaxis: Patient has resumed on his Eliquis. He has past history of DVT. He was bridged preoperatively by his primary care physician. Patient denies any calf pain today. 4. PT/OT: Weightbearing as tolerated with walker. I advised the patient the importance of getting up and doing therapy despite pain. Most of his pain is primarily when weightbearing. 5. H & H: 9.8/30.0, asymptomatic. There has been a slight drop in hemoglobin but patient is asymptomatic and his vitals are stable. Patient will be placed on ferrous sulfate and folic acid. Patient already takes folic acid. I would have patient follow-up with his primary care provider in 2-3 weeks with repeat labs for following the postoperative anemia and the chronic kidney disease. Drop in hemoglobin most likely secondary to operative procedure with dilutional component. No signs of increased drainage at this time. I did discuss with the patient the ferrous sulfate can cause constipation. If he is having any further constipation he will contact our office and we will reduce it from twice daily down to once daily. I would ultimately defer up to the primary care provider upon follow-up with continued medication. Patient and family member expressed full understanding. 6. Reactive leukocytosis: Trending down and currently 12.3, Afebrile. Patient did receive Decadron intraoperatively. No clinical signs of infection. 7. Chronic kidney disease: Labs have been stable. BUN/creatinine currently 28 and 1.96 with GFR 35. Patient will follow-up with primary care provider postoperatively for follow-up labs. 8. Encouraged Incentive Spirometry 9. Patient is aware of postoperative constipation that can occur from 1-3 days postoperatively. Will continue with senna 2 tablets twice daily until first bowel movement. Patient was advised if not having a bowel movement after day 3 she is to contact orthopedics so appropriate change can be made. Patient voiced understanding. 10. Continue postoperative medical treatment per medicine 11. Postoperative urinary retention: Urology never did see the patient in the hospital. However patient is urinating on his own frequently without any difficulty. He does follow with Dr. Prado and I would have him reach out to their office to see if he would like to see him postoperatively. Patient has allergy to Flomax. Patient did voiced understanding. Patient 12. Disposition: Patient has been able to urinate on his own without any difficulty. I will have him follow-up with his urologist at their discretion. They will contact their urologist to see if they would like to see him postoperatively. Patient's pain is better today. His pain is primarily with weightbearing. He has been tolerating therapy. Patient would like his medications E scribed to [facility]. He has outpatient physical therapy established. He will follow-up on an as-needed basis. Upon discharge he will contact our office with any concerns or questions. I did discuss with case management and they will schedule a follow-up with his primary care physician Dr. Al in 2-3 weeks with repeat labs. Lab order will be placed on chart. I advised the family to get the labs prior to the follow-up appointment with the primary care physician. I have reviewed the [place] Automated Rx Reporting System (OARRS) report for this patient for refill pattern and other prescriber involvement as part of the appropriate surveillance for the provision of acute and chronic controlled medications. The report was requested and reviewed on the date of this entry and was considered in the prescribing process. This dictation was created using voice recognition software. Phonetic and/or grammatical errors may exist.
--- NOTE | 2024-07-31 11:14 | PCM.DC ---
Discharge Instructions Diet Discharge Diet: No restrictions Activity Discharge Activity: May Not Drive (Okay to drive when you can walk 100 feet with use of a cane and off all narcotics and feel safe and appropriate.) May shower in (days): 1 (Please turn dressing away from water. Okay to get wet as long as dressing is intact to skin.) Ice area for (Minutes): 20 (Every 1-2 hours while awake[address] place barrier between the skin and ice pack.) Weight Bearing Status: Weight bearing as tolerated Keep extremity elevated above heart level: Operative Extremity Dressing / Incision Call your doctor if your incision/area has: Continuous Slow Oozing, Sudden Increased Bleeding, Increased Pain/ Swelling, Increased Redness and Foul Smelling Discharge Call your doctor if you observe: Fever of 101 or Higher, Coldness, Increased Pain, Numbness or Tingling, Change in Color, Shortness of breath, Chest pain, Calf discomfort and Uncontrolled pain Remove Dressing in: 3 days (Okay to remove dressing on August 03, 2024) Additional Dressing/Incision Instructions:: Follow [facility] Post-op Instructions. Once postoperative dressing has been removed only use gentle soap and water over the incision. Do not use any ointments, Neosporin, salves, alcohol pads over the incision for 6 weeks postoperatively. Do not submerge underwater for 6 weeks postoperatively. Continue with CHINMAY hose/elastic stockings for 2 weeks postoperatively. May remove at nighttime but needs to be placed back on the leg during the day. Do NOT use alcohol with narcotic pain medication. Do NOT make important decisions while taking narcotic medication. If you have problems with taking your medication (rash, itching, nausea, etc.) call the office at once. Follow Up Care Test Results: Test results from this visit will be discussed in further detail at your follow-up appointment, if applicable. Discharge Plan Admission Admit Date/Time: 07/29/24 07:07 Primary Reason for Your Visit: knee replacement Attending Provider: Joseph Wick Primary Care Provider: Woodrow Al Consulting Providers: Jose Gallagher; Aneesh Prado Discharge Orders/Prescriptions Prescriptions: New polysaccharide iron complex [Ferrex 150] 150 mg iron Capsule 150 mg PO DAILY 21 Days Qty: 21 0RF acetaminophen 500 mg Tablet 1,000 mg PO TID Qty: 0 0RF Rx Instructions: Do not take more than 3000 mg Tylenol in a 24-hour period. oxycodone 5 mg Tablet 5 - 10 mg PO Q4H PRN PRN (Reason: Pain Score 4-10) 7 Days Qty: 42 0RF sennosides-docusate sodium [Stimulant Laxative Plus] 8.6-50 mg Tablet 2 tab PO BID 5 Days Qty: 20 0RF Rx Instructions: Take until first bowel movement, then as needed with iron supplement Continued atorvastatin 20 mg tablet 20 mg PO QHS ketoconazole 2 % shampoo 1 applic topical 2XW PRN (Reason: PRN) omeprazole 40 mg capsule,delayed release(DR/EC) 40 mg PO BID (DME) OneTouch Verio test strips Strip See Rx Instructions .ROUTE .MEDSUPPLY Rx Instructions: Check weekly Dupixent Pen 300 mg/2 mL pen injector 300 mg subcut QMONTH levothyroxine 50 mcg capsule 50 mcg PO DAILY pyridoxine (vitamin B6) 100 mg tablet 100 mg PO DAILY tizanidine 4 mg tablet 8 mg PO QHS Rx Instructions: Take 2 to 3 tablets orally at bedtime PRN amlodipine 5 mg tablet 5 mg PO QHS folic acid 1 mg tablet 1 mg PO DAILY Qty: 90 3RF losartan 25 MG tablet 25 mg PO DAILY Patient Comments: blood pressure duloxetine 60 MG capsule 60 mg PO .EVERY 2 DAYS Patient Comments: enhance mood ascorbate calcium (vitamin C) 500 mg tablet 1 g PO DAILY cholecalciferol (vitamin D3) 25 mcg (1,000 unit) capsule 2,000 unit PO DAILY Patient Comments: vitamin,supplement cyanocobalamin (vitamin B-12) [Vitamin B-12] 1,000 mcg tablet 1,000 mcg PO DAILY verapamil 240 mg tablet extended release 240 mg PO 1500 Eliquis 5 mg tablet 5 mg PO BID gabapentin 600 mg tablet 600 mg PO TID Patient Comments: see MAR-took preop 07/29/24 Other Ambulatory Orders: Basic Metabolic Profile (BMP) (Routine) Timeframe: 2 Weeks Facility: [facility] - Location: Laboratory Ordered By: Jun GARCÍA CBC-Complete Blood Cnt No Diff (Routine) Timeframe: 2 Weeks Facility: [facility] - Location: Laboratory Ordered By: Jun GARCÍA Referrals / Follow Up: Physical,Therapy [Other] - 08/01/24 10:00 am Aneesh Prado MD [Med Staff - Active Staff] - (Contact urology for appointment next 2 weeks) Woodrow Al MD [Primary Care Provider] - 08/14/24 11:20 am (Script for labs provided @ discharge from [facility]. Labs to be drawn 2 days prior to appt w/Dr Al per Jun GARCÍA. ) Jose Alfredo Holloway PAPetrona[facility] [Med Staff - Adv Practice Prof] - 08/12/24 11:00 am Disposition Disposition (needs filled in before D/C Order can be placed): Home, Self Care
--- NOTE | 2024-07-31 11:42 | CASEMGMT ---
KALE EMANUEL note: RAQUEL Joel, pt to have appt w/Dr Al in 2 weeks and to have labs drawn 2 days prior-pt to be sent home w/the script for labs. Call placed to Dr Al's office. Appt scheduled for 08/14 @ 11:20 AM and this was added to discharge plan. Pt is scheduled for OP therapy @ [facility] tomorrow 08/01 @ 11 AM, RAQUEL Rios 08/12 @ 11 AM, and to schedule appt w/Dr Prado in 2 weeks. KALE EMANUEL to room. Pt resting in bed, @ bedside. Introduced self and role. Reviewed all of the above appts w/them, as well as labs to be drawn prior to PCP appt. They voices appreciation and understanding. Rx's have been sent to [facility] retail pharmacy and requests they be delivered to pt's room. Call placed to pharmacy and notified of same. Pt and deny having further discharge needs/concerns. Felicia ERWIN RN, CM
--- NOTE | 2024-07-31 12:42 | PCM.CONS.U ---
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 Overnight things have opened up and has been able to urinate normally reports normal flow still has to go a little frequently but feels like he is urinating fine has not had to have any more straight caths. In the past he he could not take alpha blockers because it caused severe dizziness both tamsulosin and Uroxatrol. From my standpoint he should be will go home and continue his postop rehab and he can follow-up in my office if he has any problems or difficulties coming with questions. [facility] Medical History Abrasion Ankle injury Cancer Thyroid disease Arthritis History of renal disease High cholesterol Back pain History of echocardiogram Tilt table evaluation Hx of fracture of ankle Chronic fatigue Chronic pain Squamous cell cancer of external ear ROSITA (obstructive sleep apnea) Alcohol abuse Mixed hyperlipidemia Type 2 diabetes mellitus Syncope and collapse Essential hypertension History of DVT (deep vein thrombosis) Wears hearing aid Wears glasses Fibromyalgia Alcohol use Diabetes DVT (deep venous thrombosis) Thinning of skin Restless legs (Unknown) Back pain Injury of head and neck Passed out Dietary restriction Gastric reflux Former smoker Leg cramps History of stress test History of Holter monitoring Cardiology follow-up encounter History of rheumatic fever Encounter for screening for COVID-19 Fatigue Diabetes mellitus inspire device implant intracular lenses x2 Raynaud disease Cataracts, bilateral Chronic kidney disease, stage 3 HTN (hypertension) Hypertriglyceridemia Hyperlipidemia Prostate Tissues Osteoarthritis Gout Chest pain Home Medications ?Medication ?Instructions ?Recorded ?Last Taken ?Type duloxetine 60 mg capsule,delayed 60 mg PO .EVERY 2 DAYS depression 04/17/14 07/26/24 History release losartan 25 mg tablet 25 mg PO DAILY blood pressure 04/17/14 07/29/24 History atorvastatin 20 mg tablet 20 mg PO QHS 06/04/21 07/28/24 History blood sugar diagnostic (OneTouch 09/06/22 Unknown History Verio test strips) ketoconazole 2 % shampoo 1 applic topical 2XW PRN PRN 09/06/22 Unknown History dupilumab 300 mg/2 mL subcutaneous 300 mg subcut QMONTH 11/23/22 07/20/24 History pen injector (Dupixent) ascorbate calcium (vitamin C) 500 1 g PO DAILY 08/01/23 07/28/24 History mg tablet levothyroxine 50 mcg capsule 50 mcg PO DAILY 08/01/23 07/29/24 History pyridoxine (vitamin B6) 100 mg 100 mg PO DAILY 08/01/23 07/28/24 History tablet omeprazole 40 mg capsule,delayed 40 mg PO BID 08/03/23 07/29/24 History release cyanocobalamin (vitamin B-12) 1,000 mcg PO DAILY 11/29/23 07/28/24 History 1,000 mcg tablet (Vitamin B-12) folic acid 1 mg tablet 1 mg PO DAILY #90 tabs 01/16/24 07/28/24 Rx amlodipine 5 mg tablet 5 mg PO QHS 06/25/24 07/28/24 History cholecalciferol (vitamin D3) 25 2,000 unit PO DAILY vitamin 06/25/24 07/28/24 History mcg (1,000 unit) capsule tizanidine 4 mg tablet 8 mg PO QHS muscle 06/25/24 07/28/24 History spasticity/insomnia/leg restlessness verapamil 240 mg tablet,extended 240 mg PO 1500 07/05/24 07/28/24 History release apixaban 5 mg tablet (Eliquis) 5 mg PO BID 07/23/24 07/25/24 History gabapentin 600 mg tablet 600 mg PO TID 07/23/24 07/29/24 History acetaminophen 500 mg tablet 1,000 mg (2 x 500 mg) PO TID #0 07/31/24 Unknown Rx tabs oxycodone 5 mg tablet 5 - 10 mg (1 - 2 x 5 mg) PO Q4H 07/31/24 Unknown Rx PRN PRN Pain Score 4-10 7 days #42 tabs polysaccharide iron complex 150 mg 150 mg PO DAILY 21 days #21 caps 07/31/24 Unknown Rx iron capsule (Ferrex) sennosides 8.6 mg-docusate sodium 2 tab PO BID 5 days #20 tabs 07/31/24 Unknown Rx 50 mg tablet (Stimulant Laxative Plus) Allergy/AdvReac Type Severity Reaction Status Date / Time tamsulosin Allergy Severe Blacked Verified 10/14/24 07:31 out, Passed out meloxicam Allergy Unknown Decrease Verified 07/29/24 07:31 in kidney function alfuzosin HCl (From Allergy Unknown Verified 07/29/24 07:31 Uroxatral) ezetimibe (From Zetia) Allergy Pain in Verified 07/29/24 07:31 joints pramipexole di-HCl (From Allergy Other Verified 07/29/24 07:31 Mirapex) simvastatin (From Zocor) Allergy Pain in Verified 07/29/24 07:31 joints celecoxib (From Celebrex) AdvReac Unknown Unknown Verified 07/29/24 07:31 lisinopril AdvReac Other Verified 07/29/24 07:31 Family History Brother Myocardial infarction, Onset Age: 58 Sister Cancer Breast Grandfather Myocardial infarction Other Arthritis Breast cancer FH: defects Surgical History History of transurethral resection of prostate History of esophagogastroduodenoscopy (EGD) Hx of colonoscopy History of repair of anterior cruciate ligament of left knee H/O cataract removal with insertion of prosthetic lens History of total right knee replacement (TKR) Social History Smoking Status: Former smoker alcohol intake: current alcohol intake frequency: 0-2 drinks per day details: 4-5 shots of [place] daily substance use type: does not use caffeine: Yes Type: coffee Number of servings: 3 what type of physical activity do you participate in: none Lab / Micro Data 07/31/24 06:23 07/31/24 06:23 Labs: Laboratory Results - last 24 hr 07/31/24 06:23: WBC 12.3 H, RBC 3.03 L, Hgb 9.8 L, Hct 30.0 L, MCV 99.0 H, MCH 32.3 H, MCHC 32.7, RDW Std Deviation 51.2 H, RDW Coeff of [place]yka 14.3, Plt Count 158, MPV 11.4, Sodium 138, Potassium 4.3, Chloride 108 H, Carbon Dioxide 25.0, Anion Gap 5, BUN 28 H, Creatinine 1.96 H, Estim Creat Clear Calc 31.07, Est GFR (MDRD) Af Amer 42 L, Est GFR (MDRD) Non-Af 35 L, BUN/Creatinine Ratio 14.3, Glucose 195 H, Calcium 8.2 L
== END 2024-07-31 13:45 | disposition home or self-care (01) ==
LOC: SDC 08:07 → MS3 08:07
PROVIDERS: Anesthesiology; Physician Assistant Surgical; Admitting Provider Specialist; PCP Family Medicine; Referring Provider Specialist; Visit Provider Internal Medicine
PROC: 0SRD0JZ Replacement of Left Knee Joint with Synthetic Substitute, Open Approach (ICD-10-PCS; CPT 27447; principal; 2024-07-29 08:15)
DX: M17.12 Unilateral primary osteoarthritis, left knee (principal); N18.4 Chronic kidney disease, stage 4 (severe); E11.22 Type 2 diabetes mellitus with diabetic chronic kidney disease; Z87.891 Personal history of nicotine dependence; Z79.890 Hormone replacement therapy; I12.9 Hypertensive chronic kidney disease with stage 1 through stage 4 chronic kidney disease, or unspecified chronic kidney disease; Z79.01 Long term (current) use of anticoagulants; E78.2 Mixed hyperlipidemia; R33.8 Other retention of urine; N40.1 Benign prostatic hyperplasia with lower urinary tract symptoms; N13.8 Other obstructive and reflux uropathy; G47.33 Obstructive sleep apnea (adult) (pediatric); Z79.899 Other long term (current) drug therapy; E03.9 Hypothyroidism, unspecified; M79.7 Fibromyalgia; Z86.718 Personal history of other venous thrombosis and embolism; D63.8 Anemia in other chronic diseases classified elsewhere; G89.29 Other chronic pain
CPT/HCPCS: 27447; S2900; 01402; 64447; 36415; 73560; 80048; 82962; 83735; 85027; 87081; 88305; 88311; 94668; 96365; 96366; 97110; 97116; 97162; 97166; 97530; 97535; 99221; 99252; C1776; J7120; A4216; G0378; G0463; J2405

== ENCOUNTER 2024-08-05 12:17 | Observation (INO) | payer MEDICARE, SELFPAY ==
[2024-08-05] VITALS (7 sets, daily range): BP systolic 101–134; BP diastolic 52–80; PULSE 54–77; RESP 15–22; TEMP 36.4–37.1; O2SAT 98–99; BMI 27.6
--- NOTE | 2024-08-05 14:03 | EKG12_ITS ---
Test Reason : Blood Pressure : / mmHG Vent. Rate : 066 BPM Atrial Rate : 066 BPM P-R Int : 186 ms QRS Dur : 086 ms QT Int : 462 ms P-R-T Axes : 000 -50 -78 degrees QTc Int : 484 ms Sinus rhythm with Premature atrial complexes Left axis deviation Inferior infarct , age undetermined Abnormal ECG Confirmed by BLAINE RÍOS, HARVEY ([id number]), medical editor OSCAR PITTMAN ([id number]) on 08/07/2024 9:58:45 AM Referred By: Confirmed By:HARVEY VALLADARES MD
--- NOTE | 2024-08-05 14:17 | EDS_ITS ---
HPI History of Present Illness Chief Complaint: Lower Extremity Injury Detail of Chief Complaint: Near syncope, left lower extremity pain Informant: patient and spouse/S.O. Onset/Context/Timing Onset: Today (While in a car and during venous duplex study) Context: Sudden Onset Timing: Intermittent Quality: Pallor, diaphoresis and near syncope Location: Vehicle prior to vascular study and during vascular study Current Severity: Mild Maximum Severity: Severe Worsened by: Possibly pain Relieved by: Not applicable Associated Symptoms Associated Symptoms: Pallor, diaphoresis and near syncope Narrative Narrative: Patient is an 83-year-old male who had a total knee arthroplasty performed on July 25. He was on Lovenox 3 days prior to surgery. The evening prior to surgery the Lovenox was discontinued. He resumed Eliquis the evening of surgery. He has history of multiple DVTs. He denies history of PE. He is presently not on apixaban 5 mg twice daily. He presents from vascular lab. He apparently has a clot in the popliteal vessel. He is uncertain whether this is proximal distal. Report is not available for review. Vascular lab was paged to determine where the clot is located. Patient made the comment that he has not felt well for the past 2 to 3 days. He could not be more specific. He stated I feel something is wrong . He denies fever, chills or night sweats. He has had increased postnasal drainage since surgery. He has been using his incentive spirometer. The leg pain got worse 2 to 3 days ago. He states he is increased his consumption of oxycodone. He denies fever, chills night sweats. He denies dyspnea or chest pain of any type. He denies pain with breathing. He denies nausea, vomiting or diarrhea. He denies urologic symptoms. He has not missed any of his Eliquis doses. Patient also has history of polyneuropathy, hypertension, restless leg syndrome, obstructive sleep apnea, type 2 diabetes, mixed hyperlipidemia and stage III kidney disease. Prior similar symptoms: Yes Recent Illness/Hospitalization: Yes [facility], [facility] Medical History Abrasion Ankle injury Cancer Thyroid disease Arthritis History of renal disease High cholesterol Back pain History of echocardiogram Tilt table evaluation Hx of fracture of ankle Chronic fatigue Chronic pain Squamous cell cancer of external ear ROSITA (obstructive sleep apnea) Alcohol abuse Mixed hyperlipidemia Type 2 diabetes mellitus Syncope and collapse Essential hypertension History of DVT (deep vein thrombosis) Wears hearing aid Wears glasses Fibromyalgia Alcohol use Diabetes DVT (deep venous thrombosis) Thinning of skin Restless legs (Unknown) Back pain Injury of head and neck Passed out Dietary restriction Gastric reflux Former smoker Leg cramps History of stress test History of Holter monitoring Cardiology follow-up encounter History of rheumatic fever Encounter for screening for COVID-19 Fatigue Diabetes mellitus inspire device implant intracular lenses x2 Raynaud disease Cataracts, bilateral Chronic kidney disease, stage 3 HTN (hypertension) Hypertriglyceridemia Hyperlipidemia Prostate Tissues Osteoarthritis Gout Chest pain Home Medications ?Medication ?Instructions ?Recorded ?Last Taken ?Type duloxetine 60 mg capsule,delayed 60 mg PO .EVERY 2 DAYS depression 04/17/14 07/26/24 History release losartan 25 mg tablet 25 mg PO DAILY blood pressure 04/17/14 07/29/24 History atorvastatin 20 mg tablet 20 mg PO QHS 06/04/21 07/28/24 History blood sugar diagnostic (OneTouch 09/06/22 Unknown History Verio test strips) ketoconazole 2 % shampoo 1 applic topical 2XW PRN PRN 09/06/22 Unknown History dupilumab 300 mg/2 mL subcutaneous 300 mg subcut QMONTH 11/23/22 07/20/24 History pen injector ([employer]) ascorbate calcium (vitamin C) 500 1 g PO DAILY 08/01/23 07/28/24 History mg tablet levothyroxine 50 mcg capsule 50 mcg PO DAILY 08/01/23 07/29/24 History pyridoxine (vitamin B6) 100 mg 100 mg PO DAILY 08/01/23 07/28/24 History tablet omeprazole 40 mg capsule,delayed 40 mg PO BID 08/03/23 07/29/24 History release cyanocobalamin (vitamin B-12) 1,000 mcg PO DAILY 11/29/23 07/28/24 History 1,000 mcg tablet (Vitamin B-12) folic acid 1 mg tablet 1 mg PO DAILY #90 tabs 01/16/24 07/28/24 Rx amlodipine 5 mg tablet 5 mg PO QHS 06/25/24 07/28/24 History cholecalciferol (vitamin D3) 25 2,000 unit PO DAILY vitamin 06/25/24 07/28/24 History mcg (1,000 unit) capsule tizanidine 4 mg tablet 8 mg PO QHS muscle 06/25/24 07/28/24 History spasticity/insomnia/leg restlessness verapamil 240 mg tablet,extended 240 mg PO 1500 07/05/24 07/28/24 History release apixaban 5 mg tablet (Eliquis) 5 mg PO BID 07/23/24 07/25/24 History gabapentin 600 mg tablet 600 mg PO TID 07/23/24 07/29/24 History acetaminophen 500 mg tablet 1,000 mg (2 x 500 mg) PO TID #0 07/31/24 Unknown Rx tabs oxycodone 5 mg tablet 5 - 10 mg (1 - 2 x 5 mg) PO Q4H 07/31/24 Unknown Rx PRN PRN Pain Score 4-10 7 days #42 tabs polysaccharide iron complex 150 mg 150 mg PO DAILY 21 days #21 caps 07/31/24 Unknown Rx iron capsule (Ferrex) sennosides 8.6 mg-docusate sodium 2 tab PO BID 5 days #20 tabs 07/31/24 Unknown Rx 50 mg tablet (Stimulant Laxative Plus) Allergy/AdvReac Type Severity Reaction Status Date / Time tamsulosin Allergy Severe Blacked Verified 07/29/24 07:31 out, Passed out meloxicam Allergy Unknown Decrease Verified 07/29/24 07:31 in kidney function alfuzosin HCl (From Allergy Unknown Verified 07/29/24 07:31 Uroxatral) ezetimibe (From Zetia) Allergy Pain in Verified 07/29/24 07:31 joints pramipexole di-HCl (From Allergy Other Verified 07/29/24 07:31 Mirapex) simvastatin (From Zocor) Allergy Pain in Verified 07/29/24 07:31 joints celecoxib (From Celebrex) AdvReac Unknown Unknown Verified 07/29/24 07:31 lisinopril AdvReac Other Verified 07/29/24 07:31 Family History Brother Myocardial infarction, Onset Age: 58 Sister Cancer Breast Grandfather Myocardial infarction Other Arthritis Breast cancer FH: defects Surgical History History of transurethral resection of prostate History of esophagogastroduodenoscopy (EGD) Hx of colonoscopy History of repair of anterior cruciate ligament of left knee H/O cataract removal with insertion of prosthetic lens History of total right knee replacement (TKR) Social History Smoking Status: Former smoker alcohol intake: current alcohol intake frequency: 0-2 drinks per day details: 4-[address] [employer] daily substance use type: does not use caffeine: Yes Type: coffee Number of servings: 3 what type of physical activity do you participate in: none ROS ROS ED Constitutional Constitutional ED: Reports sweats; Denies chills, fever(s), subjective or weight loss Eyes Eyes: Denies blurry vision or change in vision ENT ENT ED: Denies ear pain, rhinorrhea or sore throat Cardiovascular Cardiovascular: Denies chest pain, orthopnea, palpitations, paroxysmal nocturnal dyspnea or racing heartbeat Respiratory/Chest Respiratory/Chest: Reports dyspnea; Denies cough, dyspnea on exertion, orthopnea or paroxysmal nocturnal dyspnea Gastrointestinal Gastrointestinal: Reports nausea; Denies abdominal pain, diarrhea or vomiting Genitourinary Genitourinary ED: Denies dysuria, hematuria or urinary frequency Musculoskeletal Musculoskeletal: Reports other Details: Left knee and left lower leg pain. ; Denies back pain or neck pain Integumentary Denies rash Endocrine Endocrinology: Denies cold intolerance or heat intolerance Hematologic/Lymphatic Hematologic/Lymphatic: Reports systems reviewed and no addt'l complaints, except as documented EXAM Physical Exam Const Vital Signs: 08/05/24 12:17 08/05/24 14:17 08/05/24 16:00 Temperature 97.5 F L Temperature Source Temporal Pulse Rate 54 L 70 75 Respiratory Rate 22 H 18 15 Blood Pressure 134/61 H 101/57 L 115/80 Blood Pressure Mean 85 71 91 Pulse Ox 99 98 98 Oxygen Delivery Method Room Air Room Air 08/05/24 18:00 Temperature Temperature Source Pulse Rate 75 Respiratory Rate 15 Blood Pressure 113/64 Blood Pressure Mean 80 Pulse Ox 98 Oxygen Delivery Method Positive well nourished and well developed Constitutional Narrative: Vitals are remarked for tachypnea and bradycardia. Uncertain what his blood pressure or heart rate was during the event that occurred in the vascular lab. General Appearance ED: well developed and NAD; Negative for pallor HEENT Reports moist mucous membranes HEENT Narrative: Ears are normal. Nares are patent. Negative for trauma or tenderness Eyes PERRL and EOMs intact bilaterally General Eye ED: Negative for scleral icterus Neck no lymphadenopathy, supple and no JVD Chest Wall inspection of chest normal and palpation of chest normal Resp normal respiratory effort and clear to auscultation bilaterally Cardio regular rate, regular rhythm, S1 normal heart sound, S2 normal heart sound and no murmurs GI normal to inspection, nondistended, normoactive bowel sounds, non-tender, non- distended and no masses; Negative for hepatosplenomegaly Extremity Negative for normal to inspection Extremity Narrative: Left leg is swollen compared to the right. Cristian are in place. There is slight discoloration. There is no pain ovation of the popliteal fossa or posterior calf. There is no pain the patient along the abductor canal. Neuro oriented x3, CN's II-XII intact bilaterally and no sensory deficits noted Sensorium / Orientation: alert Motor Exam: strength 5/5 throughout Psych mental status grossly normal Skin no rashes or lesions noted, no wounds and skin turgor normal General Skin Exam: elasticity normal; Negative for jaundice or pallor MDM MDM MDM Narrative Medical decision making narrative: With reported clot on full dose apixaban will need to consider changing his anticoagulant since he did not miss any doses. Will discuss with his surgeon and vascular. He does not have a Inocencia filter in place. Differential diagnosis regard to the near syncope are vasovagal, pulmonary embolus, doubt hypovolemia or GI bleed. Lab Data Attestation: I reviewed the patient's lab results. Lab results narrative: Report from vascular lab indicates an acute clot in the popliteal vein and the TP trunk. CBC reveals anemia. He has chronic anemia. Platelet count is normal. Labs: Laboratory Results - last 24 hr 08/05/24 14:22 WBC 10.6 RBC 2.90 L Hgb 9.3 L Hct 29.0 L MCV 100.0 H MCH 32.1 H MCHC 32.1 RDW Std Deviation 50.2 H RDW Coeff of Zuleyka 13.7 Plt Count 300 MPV 10.7 Immature Gran % (Auto) 0.600 Neut % (Auto) 73.7 H Lymph % (Auto) 11.9 L [facility] % (Auto) 9.5 Eos % (Auto) 3.4 Baso % (Auto) 0.9 Absolute Neuts (auto) 7.8 H Absolute Lymphs (auto) 1.26 Nucleated RBC % 0 Sodium 138 Potassium 4.2 Chloride 104 Carbon Dioxide 26.0 Anion Gap 8 BUN 30 H Creatinine 1.98 H Est GFR (MDRD) Af Amer 42 L Est GFR (MDRD) Non-Af 35 L BUN/Creatinine Ratio 15.2 Glucose 132 H Lactic Acid 1.0 Calcium 8.7 Radiography Diagnostic Testing: Clinical Impression(s) from Imaging Studies Chest CTA 08/05/24 16:58 IMPRESSION: Negative CTA chest. Electronically Signed: Armando Wheeler MD at 18:07 EDT , Management Discussion w/another healthcare provider: Hospitalist (Spoke with Dr. Bert Mckeon who accepted patient.) Treatment and Re-Evaluation :: Calls placed to Dr. Delgado. Religious Education Coordinator would not page him since he is not on- call. I was informed that I could not speak to his nurse practitioner since it was after 5:00. Dr. Monroe Keating was contacted since Dr. Moraes did the surgery. Dr. Moraes's recommendation is to have patient call his primary care physician tomorrow. I will contact Dr. Matthews who is on-call for hematology oncology discussed case and recommendations. He felt patient could go home on Lovenox. brought up that she is not able to care for him and wants him placed in a rehab facility as an inpatient since he is not doing his physical therapy and she is not able to care for him. In light of this we will contact hospitalist for observation to medical surge with OT PT consult and consult case management to determine if patient qualifies for inpatient versus outpatient physical therapy and converting him to Lovenox. Discharge Plan Dx/Rx/DC Orders Clinical Impression: Acute deep vein thrombosis (DVT) of popliteal vein of left lower extremity, Overweight (BMI 25.0-29.9), Restless legs, Essential hypertension, Type 2 diabetes mellitus, Mixed hyperlipidemia, S/P total knee arthroplasty, Adult failure to thrive, Anticoagulant long-term use, Chronic kidney disease Disposition Disposition: [facility]
[2024-08-05 14:38] LABS: Absolute Lymphocyte Count 1.26 X10^3/uL (0.83-4.51); Absolute Neutrophil Count 7.8 X10^3/uL (2.0-7.7); Basophil# 0.09 X10^3/uL; Basophil% 0.9 % (0-1); Eosinophil# 0.36 X10^3/uL; Eosinophils% 3.4 % (0-5); Hemoglobin 9.3 g/dL (13.0-16.5); Lymphocyte # 1.26 X10^3/ul (0.83-4.51); Lymphocyte % 11.9 % (19-41); Mean Corp Hgb Conc 32.1 g/dL (32-36); Mean Corpuscular Hgb 32.1 pg (27.0-32.0); Mean Platelet Vol. 10.7 fl (6.2-12.0); Monocyte% 9.5 % (0-10); NRBC Flagged by Analyzer 0 % (0-5); Neutrophil # 7.78 X10^3/uL (2.7-7.7); Neutrophil % 73.7 % (47-70); Platelet Count 300 K/mm3 (150-450); RBC Distribution Width CV 13.7 % (11.6-14.6); RBC Distribution Width SD 50.2 fl (35.1-43.9); White Blood Count 10.6 K/mm3 (4.4-11.0)
[2024-08-05 14:55] LABS: Anion Gap 8 (5-15); BUN 30 mg/dL (7-18); BUN/Creat Ratio 15.2 RATIO (10-20); Calcium,Total 8.7 mg/dL (8.5-10.1); Chloride 104 mmol/L (98-107); Creatinine, Serum 1.98 mg/dL (0.70-1.30); EST Glomerular Filtration Rate 35 mL/min (>60); Est Glom Filt Rate - Afr Amer 42 mL/min (>60); Glucose 132 mg/dL (74-106); Potassium 4.2 mmol/L (3.5-5.1); Sodium Level 138 mmol/L (136-145)
--- NOTE | 2024-08-05 16:58 | CT_ITS ---
EXAM: CT ANGIOGRAPHY CHEST WITHOUT AND WITH INTRAVENOUS CONTRAST CLINICAL INDICATION: DVT on anticoagulant, shortness of breath near syncope TECHNIQUE: Helically acquired angiography images were obtained of the chest without and with intravenous contrast. This CT exam was performed using one or more of the following dose reduction techniques: automated exposure control, adjustment of the mA and/or kV according to patient size, and/or use of iterative reconstruction technique. MIP reconstructed images were created and reviewed. CONTRAST: IV 100mL [id number] COMPARISON: No relevant prior studies available. FINDINGS: PULMONARY ARTERIES: Unremarkable. Normal in caliber. No evidence of pulmonary embolism. AORTA: Unremarkable. Normal in caliber. No evidence of dissection. GREAT VESSELS OF AORTIC ARCH: Unremarkable. Normal in caliber. No evidence of dissection. LUNGS AND PLEURAL SPACES: Unremarkable. No mass. No consolidation or edema. No pleural effusion or thickening. No pneumothorax. HEART: Unremarkable. Heart size is normal. No pericardial effusion. No significant coronary artery calcifications. MEDIASTINUM: Unremarkable. No mediastinal or hilar adenopathy. Esophagus is unremarkable. No hiatal hernia. THYROID: Unremarkable. No thyroid lesions. BONES/JOINTS: Unremarkable. No suspicious lytic or blastic abnormality. CT/CTA Chest W/WO Contrast IMPRESSION: Negative CTA chest. Electronically Signed: Armando Wheeler MD at 18:07 EDT ,
--- OUTSIDE RECORDS SUMMARY | 2024-08-05 18:15 | XMS RPT_ITS | CCD ---
Author Organization [facility] CliniSypr Care Team Providers Care Record Keeper Name Role Phone Yulia Doll Unavailable Zumbar, Jeovany Unavailable Unavailable Zumbar, Jeovany Unavailable Unavailable Rhina Walter B Unavailable Unavailab Alirio Diazer B Unavailable Unavailab ALIRIO DiazER Unavailable Unavailable TEMO REED Unavailable Unavailable SAUNDRA CHRISTOPHER Unavailable Unavailable Lori, Asiya Unavailable Unavailable PROVIDER, UNKNOWN Unavailable Unavailable No, PCP Unavailable Unavailable Monserrat Wilson Unavailable Unavailable DAMARIS SERNA Attending Unavailable DAMARIS SERNA Primary Care Unavailable KAREEMDAMARIS FUENTES Admitting Unavailable MONSERRAT WILSON Consulting Unavailable PROVIDER, UNKNOWN Consulting Unavailable PROVIDER, UNKNOWN Consulting Unavailable KAREEMDAMARIS FUENTES Primary Care Unavailable KAREEM, DAMARIS E Admitting Unavailable MONSERRAT WILSON Consulting Unavailable DAMARIS SERNA Attending Unavailable PROVIDER, UNKNOWN Consulting Unavailable PROVIDER, UNKNOWN Consulting Unavailable Monserrat Wilson Unavailable Unavailable Unavailable Monserrat Wilson Primary Care Provider Monserrat Wilson Primary Care Provider Monserrat Wilson Primary Care Provider Monserrat Wilson MD Primary Care Provider Justin Dial Attending Unavailable Dr. Monserrat Wilson Primary Care Joseph Wilson, Dr. Monserrat Priest Referring Justin Doshi Attending Unavailable Justin Dial Referring Unavailable Dr. Monserrat Wilson Primary Care Unavai labJustin Martins Attending Unavailable Justin Dial Referring Unavailable Steve, Dr. Monserrat Priest Primary Care Unavai lable Justin Dial Attending Unavailable Steve, Dr. Monserrat Priest Primary Care Deevai labrancho Wilson, Dr. Monserrat Priest Referring Deevai lable Steve, Dr. Monserrat Priest Primary Care Deevai labJustin Martins Attending Unavailable Steve, Dr. Monserrat Priest Referring Deevaaliya labMalick Velez Primary Care Provider [phone] Unavailable Primary Care Provider UnavailMARLON Pierre Attending Unavailable MALICK AL Referring Unavailable Malick Al MD Primary Care Provider MALICK AL Primary Care Unavailable MALICK AL Primary Care Unavailable CHIDI BURTON Attending Unavailable MALICK AL Primary Care Unavailable MONSERRAT WILSON Referring Unavailable MONSERRAT WILSON Primary Care Unavailable Belén Reyes Attending Unavailable Malick Al MD Primary Care Provider Monserrat Wilson MD Primary Care Provider Allergies Allergy Classification Reported Allergen(s) Allergy Type Date of Onset Reaction(s) Facility Adrenergic Antagonists (2 sources) alfuzosin; Translations: [Uroxatral] Drug Allergy FF-Guoahtzuy-C arma 204 Work Phone: Cholesterol Absorption Inhibitors (1 source) ezetimibe; Translations: [Zetia] Drug Allergy SC-Haempimuo-I arma 204 Work Phone: HMG-CoA Reductase Inhibitors (statins) (1 source) Simvastatin; Translations: [Zocor] Drug Allergy DG-Ajrcwfrvh-K arma 204 Work Phone: NSAIDs (2 sources) celecoxib; Translations: [CeleBREX CAPS] Drug Allergy PZ-Aqhwgjkej-A arma 204 Work Phone: Pramipexole (1 source) Pramipexole; Translations: [Mirapex] Drug Allergy ZG-Cfeoshiee-V arma 204 Work Phone: (20 sources) alfuzosin; Translations: [Uroxatral] Drug Allergy HU-Ylehranso-W arma 204 Work Phone: (20 sources) celecoxib; Translations: [CeleBREX CAPS] Drug Allergy 2 Unknown [facility] (20 sources) ezetimibe; Translations: [ZETIA] Drug Allergy [facility] Repository (20 sources) meloxicam; Translations: [MELOXICAM] Drug Allergy 0 Unknown [facility] Repository (20 sources) Pramipexole; Translations: [MIRAPEX] Drug Allergy [facility] Repository (20 sources) Simvastatin; Translations: [ZOCOR] Drug Allergy [facility] Repository (20 sources) tamsulosin; Translations: [tamsulosin] Drug Allergy 0 Intolerance, Syncope [facility] (1 source) celecoxib Drug Allergy [facility] Repository (13 sources) alfuzosin; Translations: [ALFUZOSIN HCL] Drug Allergy 7 Other: See Comments [facility] (13 sources) ezetimibe; Translations: [EZETIMIBE] Drug Allergy 5 Other: See Comments [facility] (13 sources) Pramipexole; Translations: [PRAMIPEXOLE] Drug Allergy 0 Intolerance [facility] (14 sources) Simvastatin; Translations: [SIMVASTATIN] Drug Allergy 5 Other: See Comments [facility] (1 source) ezetimibe Drug Allergy 0 [facility] (1 source) Pramipexole Drug Allergy 0 [place] (1 source) celecoxib; Translations: [CELECOXIB] Drug Allergy 2 [facility] Repository Medications Current Medications Medication Drug Class(es) Dates Sig (Normalized) Sig (Original) ascorbic acid 500 mg oral tablet (20 sources) Vitamin C Start: 10-12-2007 ascorbic acid(VITAMIN C 500 MG TAB) Take one (1) tablet twice daily. 0 10/12/2007 Active take 1 capsule by mouth twice da bebe Ascorbic Acid (Vitamin C) 500 MG capsule Take 1 capsule by mouth 2 times daily. 0 Active Ascorbic Acid (V itamin C CR) 1000 MG Tab CR Take 500 mg by mouth daily. Pt takes 4 tablets a day. 1000 mg in the morning and 1000 at night. 0 Active take 1 tablet by mouth twice ronit ly Vitamin C 1000 MG Oral Tablet take 1 tab twice daily Quantity: 0 Refills: 0 Ordered: 01-Nov-2021 DO Active Comment on above: Take one (1) tablet twice daily. atorvastatin 20 mg oral tablet (20 sources) HMG-CoA Reductase Inhibitor Start: 8 take 1 tablet by mouth once daily atorvastatin (LIPITOR) 20 mg tablet Take 1 tablet by mouth once daily. 90 tablet 1 11/29/2017 Active Comment on above: Take 1 tablet by che th once daily. baclofen 10 mg oral tablet (1 source) gamma-Aminobutyric Acid-ergic Agonist take 1 tablet by mouth twice daily baclofen 10 MG tablet Take 1 tablet by mouth 2 times daily. 0 Active benzonatate 100 mg oral capsule (1 source) Non-narcotic Antitussive Start: 3 take 1 capsule by mouth every eight hours as needed benzonatate (TESSALON PERLES) 100 mg capsule Take 1 capsule by mouth three times a day as needed for cough. 14 capsule 10/04/2023 Active Blood-Glucose Meter (ONETOUCH VERIO SYSTEM) [facility] [place] (12 sources) Start: 7 Blood-Glucose Meter (ONETOUCH VERIO SYSTEM) [facility] [place] Use as directed. 1 Each 07/10/2017 Active Start: 07-10-2017 Blood-Glucose Meter (ONETOUCH VERIO SYSTEM) [facility] [place] Use as directed. 1 Each 0 07/10/2017 Active Comment on above: Use as directed. celecoxib 200 mg oral capsule (1 source) Nonsteroidal Anti-inflammatory Drug take 1 capsule by mouth once daily Celecoxib 200 MG capsule Take 1 capsule by mouth daily. 0 Active cholecalciferol 0.05 mg oral capsule (20 sources) Vitamin D Start: 09-08-20 10 Cholecalciferol, Vitamin D3, 2,000 unit ORAL Cap Take 2,000 Units by mouth. 0 09/08/2010 Active take 1 tablet by mouth once mannie y Vitamin D3 25 MCG (1000 UT) tablet Take 1 tablet by mouth daily. 0 Active take 1 capsule by mouth twice da bebe Cholecalciferol 50 MCG (2000 UT) capsule Take 1,000 Units by mouth 2 times daily. 0 Active take 1 tablet by mouth twice ronit ly Vitamin D3 25 MCG (1000 UT) Oral Tablet take 1 tab twice daily Quantity: 0 Refills: 0 Ordered: 01-Nov-2021 DO Active Comment on above: Take 2,000 Units by mouth. cyanocobalamin, vitamin B-12, (VITAMIN B-12 INJECTION) (12 sources) cyanocobalamin, vitamin B-12, (VITAMIN B-12 INJECTION) by INJECTION(UNSPECIFIED PARENTERAL ROUTES) route once every month. Active cyanocobalamin, vitamin B-12, (VITAMIN B-12 INJECTION) by INJECTION(UNSPECIFIED PARENTERAL ROUTES) route once every month. 0 Active Comment on above: by INJECTION(UNSPECI FIED PARENTERAL ROUTES) route once every month. DULoxetine 60 mg delayed release oral capsule (20 sources) Serotonin and Norepinephrine Reuptake Inhibitor Start: 3 DULox[address] Particles capsule DR Comment on above: Take 60 mg by mouth twice daily. Dupilumab (DUPIXENT SC) (1 source) Dupilumab (DUPIX ENT SC) Inject under the skin every 14 days. 0 Active dupilumab (DUPIXENT SUBCUTANEOUS) (12 sources) dupilumab (DUPIX ENT SUBCUTANEOUS) Inject subcutaneously as needed (taking every three weeks). 08/17/2021 reported taking every 3 weeks Active dupilumab (DUPIX ENT SUBCUTANEOUS) Inject subcutaneously as needed (taking every three weeks). 08/17/2021 reported taking every 3 weeks 0 Active Comment on above: Inject subcutaneousl y as needed (taking every three weeks). 08/17/2021 reported taking every 3 weeks folic acid 1 mg oral tablet (1 source) take 1 tablet by mouth twice daily Folic acid 1 MG tablet Take 1 tablet by mouth 2 times daily. 0 Active gabapentin 300 mg oral capsule (5 sources) Anti-epileptic Agent Start: 3 gabapentin (NEURONTIN) 300 mg capsule TAKE 1 CAP ON DAY 1. THEN TAKE 1 CAP TWICE A DAY ON DAY 2 AND MOVING FORWARD. 04/24/2023 Active Comment on above: TAKE 1 CAP ON DAY 1. THEN TAKE 1 CAP TWICE A DAY ON DAY 2 AND MOVING FORWARD. guaiFENesin 600 mg oral tablet (13 sources) take 600 mg by mouth twice daily GUAIFENESIN ORAL Take 600 mg by mouth twice daily. Active take 2 tablets by mouth once ronit ly guaiFENesin (Mucinex) 600 MG Tab SR 12 HR tablet SR Take 2 tablets by mouth daily. 0 Active Comment on above: Take 600 mg by mouth twice daily. ketoconazole 20 mg/ml medicated shampoo (13 sources) Azole Antifungal Start: 11-30-19 18 ketoconazole (NIZORAL) 2 % shampoo Apply 1 application to affected area once daily as needed. 240 mL 1 11/30/2017 Active Comment on above: Apply 1 application to affected area once daily as needed. levothyroxine sodium 0.05 mg oral tablet (1 source) l-Thyroxine Start: 05-18-20 23 take 1 tablet by mouth once daily in the morning Levothyroxine 50 MCG tablet TAKE 1 TABLET BY MOUTH EVERY MORNING, TAKE 30 MINUTES PRIOR TO FOOD, AND OTHER MEDICATIONS 0 05/18/2023 Active losartan potassium 25 mg oral tablet (20 sources) Angiotensin 2 Receptor Keeley Start: 04-17-20 14 losartan (COZAAR) 25 mg tablet TAKE 1 TABLET DAILY 90 tablet 1 03/22/2018 Active take 0.5 tablet by mouth once da bebe Losartan 50 MG tablet Take 0.5 tablets by mouth daily. 0 Active Comment on above: TAKE 1 TABLET DAILY omeprazole 40 mg delayed release oral capsule (20 sources) Proton Pump Inhibitor Start: 01-04-2022 End: 10-13-2023 take 1 capsule by mouth once daily omeprazole (PRILOSEC) 40 mg capsule Take 1 capsule by mouth once daily. 30 capsule 09/13/2023 Active Omeprazole Magne sium 20 MG Oral Tablet Delayed Release Quantity: 0 Refills: 0 Ordered: 01-Nov-2021 DO Active Omeprazole Magne sium 20 MG Oral Tablet Delayed Release Quantity: 0 Refills: 0 Ordered: 02-Sep-2021 DO Active take 1 capsule by mouth once ronit ly Omeprazole 20 MG Oral Capsule Delayed Release TAKE 1 CAPSULE Daily Quantity: 0 Refills: 0 Ordered: 15-Dec-2020 DO Active Comment on above: Take 1 capsule by [facility] once daily. TAKE 1 CAPSULE DAILY valACYclovir 1000 mg oral tablet (1 source) Herpesvirus Nucleoside Analog DNA Polymerase Inhibitor, Herpes Simplex Virus Nucleoside Analog DNA Polymerase Inhibitor, Herpes Zoster Virus Nucleoside Analog DNA Polymerase Inhibitor Start: 05-16-20 Valacyclovir 1 g tablet PLEASE SEE ATTACHED FOR DETAILED DIRECTIONS 0 05/16/2023 Active verapamil hydrochloride 120 mg extended release oral tablet (5 sources) Calcium Channel Keeley Start: 05-04-20 take 1 tablet by mouth once daily in the morning verapamil SR (CALAN SR) 120 mg CR tablet Take 120 mg by mouth every morning. 05/04/2023 Active Start: 03-30-2023 verapamil 120 MG tablet Comment on above: Take 120 mg by mouth every morning. vitamin b12 1 mg oral tablet (20 sources) Vitamin B12 cyanocobalamin 1 000 MCG tablet injection once a month 0 Active End: 05-30-2023 Cyanocobalamin (B-12 IJ) Inj ect as directed every 30 days. 0 05/30/2023 Discontinued (Therapy completed) Vitamin B-12 100 0 MCG/ML SOLN Inject as directed once a month Quantity: 0 Refills: 0 Ordered: 01-Nov-2021 DO Active Vitamin B-12 100 0 MCG/ML SOLN Inject as directed once a month Quantity: 0 Refills: 0 Ordered: 16-Jul-2021 DO Active Vitamin B-12 100 0 MCG/ML SOLN Inject as directed once a month Quantity: 0 Refills: 0 Ordered: 15-Dec-2020 DO Active Completed/Discontinued Medications Medication Drug Class(es) Dates Sig (Normalized) Sig (Original) acyclovir 200 mg oral capsule (17 sources) Herpesvirus Nucleoside Analog DNA Polymerase Inhibitor, Herpes Simplex Virus Nucleoside Analog DNA Polymerase Inhibitor, Herpes Zoster Virus Nucleoside Analog DNA Polymerase Inhibitor Start: 10-11-2017 End: 08-30-2022 take 2 capsules by mouth twice daily acyclovir (ZOVIRAX) 200 mg capsule Take 2 capsules by mouth twice daily. (suppressive therapy) 360 capsule 1 10/11/2017 08/30/2022 Discontinued Start: 10-11-2017 End: 05-30-2023 take 1 capsule by mouth once daily acyclovir 200 MG capsule Take 200 mg by mouth daily. 0 10/11/2017 05/30/2023 Discontinued (Therapy completed) Comment on above: Take 2 capsules by m outh twice daily. (suppressive therapy) apixaban 5 mg oral tablet (20 sources) Factor Xa Inhibitor Start: 020 End: 023 take 1 tablet by mouth twice daily apixaban (ELIQUIS) 5 mg tab(s) Take 1 tablet by mouth twice daily. 90 tablet 3 06/17/2020 05/29/2023 Discontinued Comment on above: Take 1 tablet by che th twice daily. Black Elderberry(Hampton-Flower ) CAPS (9 sources) Black Elderberry(Hampton-Flowe r) CAPS Quantity: 0 Refills: 0 Ordered: 02-Sep-2021 DO Active diphenhydrAMINE hydrochloride 25 mg oral capsule (20 sources) Histamine-1 Receptor Antagonist End: 023 take 1 capsule by mouth once daily at bedtime diphenhydrAMINE (BENADRYL) 25 mg capsule Take 25 mg by mouth daily at bedtime. 05/29/2023 Discontinued take 2 tablets by mouth once ronit ly diphenhydrAMINE HCl - 25 MG Oral Tablet TAKE 2 TABS NIGHTLY Quantity: 0 Refills: 0 Ordered: 01-Nov-2021 DO Active Comment on above: Take 25 mg by mouth daily at bedtime. 2 ml dupilumab 150 mg/ml auto-injector (20 sources) Interleukin-4 Receptor alpha Antagonist Dupixent 300 MG/2ML Subcutaneous Solution Pen-injector inject as directed every 3 weeks Quantity: 0 Refills: 0 Ordered: 01-Nov-2021 DO Active Dupixent 300 MG/ 2ML Subcutaneous Solution Pen-injector inject as directed every 2 weeks Quantity: 0 Refills: 0 Ordered: 16-Jul-2021 DO Active Dupixent 300 MG/2ML Subcutaneous Solution Pen-injector (1 source) Dupixent 300 MG/ 2ML Subcutaneous Solution Pen-injector inject as directed every 2 weeks Refills: 0 DO Active 2 x 2 ML Pen famotidine 20 mg oral tablet (3 sources) Histamine-2 Receptor Antagonist Start: 10-12-2022 Famotidine 20 MG Oral Tablet Quantity: 90 Refills: 0 Ordered: 12-Oct-2022 DO Start : 12-Oct-2022 Active Start: 08-29-2022 End: 09-28-2022 take 1 tablet by mouth once daily at bedtime famotidine (PEPCID) 20 mg tablet Take 1 tablet by mouth daily at bedtime. 30 tablet 2 08/29/2022 09/28/2022 Active Comment on above: Take 1 tablet by che th daily at bedtime. Gas Relief Extra Strength CAPS (14 sources) Gas Relief Extra Strength CAPS TAKE DIRECTED. Quantity: 0 Refills: 0 Ordered: 01-Nov-2021 DO Active Gas Relief Extra Strength CAPS TAKE DIRECTED. Quantity: 0 Refills: 0 Ordered: 02-Sep-2021 DO Active gentamicin 3 mg/ml ophthalmi c solution (2 sources) Start: 10-19-2021 Gentamicin Sul fate 0.3 % Ophthalmic Solution Quantity: 5 Refills: 0 Ordered: 19-Oct-2021 DO Start : 19-Oct-2021 Active Guaifenesin 600 MG TBCR (1 source) Guaifenesin 600 MG TBCR TAKE 1 TABLET EVERY 12 HOURS NEEDED. Refills: 0 DO Active Guaifenesin 600 MG TBCR (20 sources) Guaifenesin 600 MG TBCR TAKE 1 TABLET EVERY 12 HOURS NEEDED. Quantity: 0 Refills: 0 Ordered: 01-Nov-2021 DO Active Guaifenesin 600 MG TBCR TAKE 1 TABLET EVERY 12 HOURS NEEDED. Quantity: 0 Refills: 0 Ordered: 16-Jul-2021 DO Active Guaifenesin 600 MG TBCR TAKE 1 TABLET EVERY 12 HOURS NEEDED. Quantity: 0 Refills: 0 Ordered: 15-Dec-2020 DO Active loperamide hydrochloride 2 mg oral capsule (20 sources) Opioid Agonist take 1 capsule by mouth once Loperamide HCl - 2 MG Oral Capsule TAKE 1 CAP EVERY THIRD DAY Quantity: 0 Refills: 0 Ordered: 01-Nov-2021 DO Active take 1 capsule by mouth every ot her day Loperamide HCl - 2 MG Oral Capsule TAKE 1 CAP EVERY OTHER DAY Quantity: 0 Refills: 0 Ordered: 16-Jul-2021 DO Active Drug Treatment Unknown - unknown (1 source) No information available. nortriptyline 10 mg oral capsule (20 sources) Tricyclic Antidepressant Start: 12-23-19 18 End: 05-30-20 23 take 1 capsule by mouth once daily at bedtime nortriptyline (PAMELOR) 10 mg capsule Take 1 capsule by mouth daily at bedtime. 30 capsule 2 12/22/2017 05/29/2023 Discontinued Comment on above: Take 1 capsule by [facility] daily at bedtime. predniSONE 20 mg oral tablet (3 sources) Start: 09-17-20 21 predniSONE 20 MG Oral Tablet Quantity: 20 Refills: 0 Ordered: 17-Sep-2021 DO Start : 17-Sep-2021 Complete rOPINIRole 1 mg oral tablet (20 sources) Nonergot Dopamine Agonist Start: 11-01-19 take 1 tablet by mouth three times daily rOPINIRole HCl - 1 MG Oral Tablet TAKE 1 TABLET THREE TIMES A DAY Quantity: 270 Refills: 3 Ordered: 01-Nov-2022 Malick Weber MD Start : 01-Nov-2022 Active Start: 07-16-2021 End: 05-29-2023 rOPINIRole (REQUIP) 0.25 mg tablet 07/16/2021 05/29/2023 Discontinued Start: 07-16-2021 take 1 tablet by che th at bedtime rOPINIRole HCl - 1 MG Oral Tablet take 1 tablet by mouth at bedtime Quantity: 90 Refills: 3 Ordered: 30-Aug-2021 Malick Weber MD Start : 16-Jul-2021 Active SITagliptin 50 mg oral tablet (20 sources) Dipeptidyl Peptidase 4 Inhibitor Start: 10-29-2019 End: 05-30-2023 take 1 tablet by mouth once daily sitaGLIPtin (JANUVIA) 50 mg tablet Indications: Type 2 diabetes mellitus without complication, without long-term current use of insulin (HCC) Take 1 tablet by mouth once daily. 90 tablet 3 10/29/2019 05/29/2023 Discontinued Comment on above: Take 1 tablet by che th once daily. traMADol hydrochloride 50 mg oral tablet (3 sources) Opioid Agonist Start: 09-17-2021 traMADol HCl - 50 MG Oral Tablet Quantity: 15 Refills: 0 Ordered: 17-Sep-2021 DO Start : 17-Sep-2021 Complete Problems Active Problems Problem Classification Problem Date Documented Da te Episodic/Chronic Alcohol-related disorders (13 sources) Alcohol intake above recommended sensible limits; Translations: [Alcohol abuse, uncomplicated] Onset: 0 08-06-2020 Chronic Allergic reactions (2 sources) Dermatitis, unspecified; Translations: [Dermatitis, unspecified] Onset: 8 Episodic Chronic kidney disease (16 sources) Chronic kidney disease stage 3; Translations: [Stage 3 chronic kidney disease] Onset: 7 Resolved: 2 10-29-2019 Chronic Diabetes mellitus without complication (13 sources) Type 2 diabetes mellitus without complication; Translations: [Type 2 diabetes mellitus without complications] Onset: 7 06-07-2017 Chronic Disorders of lipid metabolism (15 sources) Mixed hyperlipidemia; Translations: [Mixed hyperlipidemia] Onset: 6 Resolved: 6 11-23-2015 Chronic Esophageal disorders (13 sources) Small's esophagus; Translations: [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] Onset: 2 12-02-2021 Chronic Essential hypertension (15 sources) Essential hypertension; Translations: [Essential (primary) hypertension] Onset: 1 Resolved: 7 11-23-2015 Chronic Gastrointestinal hemorrhage (2 sources) Gastrointestinal hemorrhage; Translations: [Hemorrhage of anus and rectum] 05-29-2023 Episodic Hemorrhoids (2 sources) Internal hemorrhoids; Translations: [Other hemorrhoids] 05-29-2023 Episodic Hyperplasia of prostate (12 sources) Benign prostatic hyperplasia; Translations: [Benign prostatic hyperplasia without lower urinary tract symptoms] Onset: 7 11-18-2016 Chronic Immunizations and screening for infectious disease (15 sources) Encounter for immunization; Translations: [Patient encounter status] Onset: 1 Episodic Osteoarthritis (13 sources) Degenerative joint disease involving multiple joints; Translations: [Polyosteoarthritis, unspecified] Onset: 3 11-23-2015 Chronic Other circulatory disease (14 sources) Raynaud's disease; Translations: [Raynaud's syndrome without gangrene] Onset: 2 Resolved: 7 02-19-2012 Chronic Other circulatory disease (20 sources) H/O: hypertension; Translations: [Personal history of other diseases of circulatory system] Episodic Other connective tissue disease (12 sources) Muscle pain; Translations: [Myalgia, unspecified site] 06-20-2016 Episodic Other connective tissue disease (12 sources) Fibromyalgia; Translations: [Fibromyalgia] 11-25-2016 Episodic Other gastrointestinal disorders (1 source) History of Small's esophagus; Translations: [Personal history of other diseases of the digestive system] Episodic Other hereditary and degenerative nervous system conditions (20 sources) Restless legs; Translations: [Restless legs syndrome (RLS)] Chronic Other hereditary and degenerative nervous system conditions (12 sources) Essential tremor; Translations: [Essential tremor] Onset: 6 11-23-2015 Chronic Other lower respiratory disease (1 source) Cough; Translations: [Acute cough] 10-04-2023 Episodic Other male genital disorders (12 sources) Male erectile dysfunction, unspecified; Translations: [Impotence [...] limb movement disorder] Chronic Residual codes; unclassified (12 sources) Obstructive sleep apnea syndrome; Translations: [Obstructive sleep apnea (adult) (pediatric)] Onset: 5 10-11-2021 Chronic Residual codes; unclassified (12 sources) Treatment-emergent central sleep apnea; Translations: [Other [...] Classification Problem Date Documented Da te Episodic/Chronic Abdominal hernia (2 sources) Hernia of abdominal cavity; Translations: [Other specified abdominal hernia without obstruction or gangrene] Resolved: 12-02-2021 12-02-2021 Episodic Genitourinary symptoms and ill-defined conditions (10 sources) Nocturia; Translations: [Nocturia] Onset: 09-19-2011 Resolved: 11-18-2016 02-25-2013 Episodic Other acquired deformities (12 sources) Mallet finger; Translations: [Mallet finger of unspecified finger(s)] Onset: 05-09-2011 05-09-2011 Episodic Other aftercare (1 source) Other jail (current) drug therapy; Translations: [Other terminal worker (current) drug therapy] Onset: 10-17-2022 Episodic Other aftercare (1 source) group home (current) use of oral hypoglycemic drugs; Translations: [group home (current) use of oral hypoglycemic drugs] Onset: 10-17-2022 Episodic Other connective tissue disease (1 source) Fibromyalgia; Translations: [Fibromyalgia] Onset: 10-17-2022 Episodic Other connective tissue disease (2 sources) Pain in finger; Translations: [Pain in unspecified finger(s)] Onset: 05-09-2011 Resolved: 01-03-2014 01-03-2014 Episodic Other diseases of bladder and urethra (2 sources) Bladder neck obstruction; Translations: [Bladder-neck obstruction] Onset: 05-28-2007 Resolved: 01-03-2014 01-03-2014 Chronic Other diseases of bladder and urethra (2 sources) Overactive bladder; Translations: [Other neuromuscular dysfunction of bladder] Onset: 10-05-2009 Resolved: 02-25-2013 02-25-2013 Chronic Other diseases of bladder and urethra (2 sources) Postoperative urethral stricture; Translations: [Postoperative urethral stricture] Onset: 11-26-2007 Resolved: 01-03-2014 01-03-2014 Episodic Other male genital disorders (2 sources) Retrograde ejaculation; Translations: [Retrograde ejaculation] Onset: 09-19-2011 Resolved: 12-02-2021 12-02-2021 Episodic Other nutritional; endocrine; and metabolic disorders (1 source) Overweight; Translations: [Overweight] Onset: 10-17-2022 Episodic Other nutritional; endocrine; and metabolic disorders (1 source) Body mass index (BMI) 26.0-26.9, adult; Translations: [Body mass index [BMI] 26.0-26.9, adult] Onset: 10-17-2022 Episodic Other skin disorders (12 sources) Excessive sweating; Translations: [Generalized hyperhidrosis] Onset: 10-15-2017 10-15-2017 Episodic Other skin disorders (2 sources) Ingrowing nail; Translations: [Ingrowing nail] Onset: 09-22-2009 Resolved: 01-03-2014 01-03-2014 Episodic Phlebitis; thrombophlebitis and thromboembolism (20 sources) H/O: Deep vein thrombosis; Translations: [Personal history of venous thrombosis and embolism] Onset: 08-06-2020 08-06-2020 Episodic Skin and subcutaneous tissue infections (2 sources) Cellulitis and abscess of toe; Translations: [Cellulitis of unspecified toe] Onset: 09-08-2009 Resolved: 01-03-2014 01-03-2014 Episodic Spondylosis; intervertebral disc disorders; other back problems (12 sources) Chronic back pain ; Translations: [Dorsalgia, unspecified] Onset: 11-18-2016 11-18-2016 Episodic Results Test Name Value Interpretation Reference Range Facility [facility] 10-05-2023 [facility] Telephone ([facility]) TEMO GARRISON ([id number]) 1940 M Date Time Provider Department 10/05/23 JESSICA ORTIZ [facility] During your visit today, we recorded the following information about you: Jessica Ortiz APRN.[facility] 10/05/2023 7:55 AM Signed Left message notifying of positive covid. If calls back please notify of the following Your covid test is positive. Follow the CDC guidelines for isolation: 1. Everyone, regardless of vaccination status, should stay home for 5 days. 2. If you have no symptoms or your symptoms are resolving after 5 days, you can leave your house. 3. Continue to wear a mask around others for 5 additional days. If you have a fever, continue to stay home until your fever resolves, even if it is longer than 5 days. Please monitor your symptoms, and for any worrisome symptoms. Continue comfort measures for symptoms as you would for a cold. Any worsening symptoms follow up with PCP or ER. Not a candidate for paxlovid, advise to follow up with PCP for further direction Jessica Ortiz APRN.Carol Núñez LPN 10/05/2023 10:40 AM Signed Pt was notified of results. Pt was given an Rx for doxycycline to start if symptoms are not improved in 3 days, is pt still to start that since he was + for covid? Please advise pt via telephone call. ALMA Muhammad Tonya, APRN.CNP 10/05/2023 12:01 PM Signed Patient can hold on doxycycline since we know it's covid. Follow up with PCP as needed. Jessica Ortiz APRN.Rachna Bryan 10/05/2023 1:03 PM Signed Talked to patient and he understands he does not need to take medication. Rachna Mccullough Allergies As of Date: 10/05/2023 Noted Allergy Reaction FLOMAX (TAMSULOSIN) 06/01/2020 5 - Intolerance Comments: PASSED OUT CELECOXIB 06/03/2022 16 - Unknown MELOXICAM 01/20/2020 16 - Unknown Comments: In combination with celebrex MIRAPEX (PRAMIPEXOLE) 05/31/2010 5 - Intolerance UROXATRAL (ALFUZOSIN HCL) 04/30/2007 14 - Other: See Comments Comments: Testicular pain ZETIA (EZETIMIBE) 08/17/2005 14 - Other: See Comments Comments: Muscle pain and weakness ZOCOR (SIMVASTATIN) 08/17/2005 14 - Other: See Comments Comments: Muscle pain and weakness Date Reviewed: 10/04/2023 Reviewed by: Neetu Ramos LPN - Fully Assessed Reason for Visit: Results [95] Prescriptions as of 10/05/2023 - doxycycline (VIBRA-TABS) 100 mg tablet Take 1 tablet by mouth two times a day for 5 days. - benzonatate (TESSALON PERLES) 100 mg capsule Take 1 capsule by mouth three times a day as needed for cough. - omeprazole (PRILOSEC) 40 mg capsule Take 1 capsule by mouth once daily. - verapamil SR (CALAN SR) 120 mg CR tablet Take 120 mg by mouth every morning. - gabapentin (NEURONTIN) 300 mg capsule TAKE 1 CAP ON DAY 1. THEN TAKE 1 CAP TWICE A DAY ON DAY 2 AND MOVING FORWARD. - DULoxetine (CYMBALTA) 60 mg capsule Take 60 mg by mouth twice daily. - GUAIFENESIN ORAL Take 600 mg by mouth twice daily. - lancets ([employer] LANCETS) 30 gauge misc Use as directed to test glucose 3 times weekly. DX: E11.9 - dupilumab (DUPIXENT SUBCUTANEOUS) Inject subcutaneously as needed (taking every three weeks). 08/17/2021 reported taking every 3 weeks - cyanocobalamin, vitamin B-12, (VITAMIN B-12 INJECTION) by INJECTION(UNSPECIFIED PARENTERAL ROUTES) route once every month. - blood sugar diagnostic ([employer]) test strip USE ONE STRIP TO CHECK GLUCOSE ONCE DAILY - losartan (COZAAR) 25 mg tablet TAKE 1 TABLET DAILY - ketoconazole (NIZORAL) 2 % shampoo Apply 1 application to affected area once daily as needed. - atorvastatin (LIPITOR) 20 mg tablet Take 1 tablet by mouth once daily. - Blood-Glucose Meter ([employer] VERIO SYSTEM) misc Use as directed. - Cholecalciferol, Vitamin D3, 2,000 unit ORAL Cap Take 2,000 Units by mouth. - ascorbic acid(VITAMIN C 500 MG TAB) Take one (1) tablet twice daily. Meds Comments as of 10/05/2009: Problem List As Of Date 10/05/2023 Noted Resolved Primary osteoarthritis involving multiple joint* Hyperlipidemia [E78.5] 11/23/2015 Myalgia [M79.10] Hernia of other specified sites of abdominal ca* 12/02/2021 BPH (benign prostatic hyperplasia) [N40.0] 05/28/2007 Bladder neck obstruction [N32.0] 05/28/2007 01/03/2014 Postoperative urethral stricture [SUE2124] 11/26/2007 01/03/2014 Cellulitis and abscess of toe, unspecified [L03*09/08/2009 01/03/2014 Ingrowing nail [L60.0] 09/22/2009 01/03/2014 Hyperactivity of bladder [N31.8] 10/05/2009 02/25/2013 Mallet finger [M20.019] 05/09/2011 Pain in finger [M79.646] 05/09/2011 01/03/2014 Hypertension [I10] 07/21/2011 11/25/2016 Nocturia [R35.1] 09/19/2011 02/25/2013 Urgency of urination [R39.15] 09/19/2011 02/25/2013 Frequency of urination [R35.0] 09/19/2011 02/25/2013 Retrograde ejaculation [N53.14] 09/19/2011 12/02/2021 Difficulty voiding [R39.198] 09/19/201102/13 (more content not included)... Normal [facility] CNOVon 10-04-2023 CNOV Office Visit (UCWSTR ) TEMO GARRISON ([id number]) 1940 M Date Time Provider Department 10/04/23 2:00 PM TERESA RUDD WSTR During your visit today, we recorded the following information about you: Temperature Pulse Respiration Blood pressure 99 degrees 79/minute 18/minute 128/82 Weight 83.6 kg Teresa Rudd PA 10/04/2023 3:04 PM Signed This note was created using NoteWriter. Subjective [...] Dr. Berry Chronic kidney disease, stage 3 ([facility]) Seeing Dr. Moss DDD (degenerative disc disease), cervical DDD (degenerative disc disease), lumbar Seeing Dr. Thayer Diarrhea Diverticulosis of colon (without mention of hemorrhage) DVT (deep venous thrombosis) ([facility]) 08/06/2020 Essential tremor External hemorrhoids without mention [...] complication, without long-term current use of insulin ([facility]) 06/07/[address] Owens Uveitis 2008 right [...] repair, umbilical SEPTOPLASTY/SUBMUCOUS RESECJ W/WO CARTILAGE GRF SIGMOIDOSCOPY FLX DX W/COLLJ SPEC BR/WA IF [...] 600 mg by mouth twice daily. lancets ([employer] LANCETS) 30 gauge misc Use as directed to test glucose 3 times weekly. DX: E11.9 dupilumab (DUPIXENT SUBCUTANEOUS) Inject subcutaneously as needed (taking every three weeks). 08/17/2021 reported taking every 3 weeks cyanocobalamin, vitamin B-12, (VITAMIN B-12 INJECTION) by INJECTION(UNSPECIFIED PARENTERAL ROUTES) route once every month. blood sugar diagnostic ([employer]) test strip USE ONE STRIP TO CHECK GLUCOSE ONCE DAILY losartan (COZAAR) 25 mg tablet TAKE 1 TABLET DAILY ketoconazole (NIZORAL) 2 % shampoo Apply 1 application to affected area once daily as needed. atorvastatin (LIPITOR) 20 mg tablet Take 1 tablet by mouth once daily. Blood-Glucose Meter ([employer] VERIO SYSTEM) misc Use as directed. Cholecalciferol, Vitamin D3, 2,000 unit ORAL Cap Take 2,000 Units by mouth. ascorbic acid(VITAMIN C 500 MG TAB) Take one (1) tablet twice daily. FAMILY HISTORY Problem Relation Age of Onset Diabetes Father other (down'ssyndrome) Brother Hypertension Mother other (Other) Mother Acute Renal Failure/AAA other (Aortic aneurysm) Mother Ischemic Heart Disease Brother 58 OR Alcohol/Drug Brother Breast Cancer Sister Diabetes Maternal Grandmother Rheumatologic disease Maternal Grandfather Anesthesia Problems No Family H (more content not included)... Normal [facility] Arevalo COVID AND INFLUENZA A/B AND RSV NAAT, ROUTINEon 10-04-2023 SARS-CoV-2 (COVID-19) RNA SADE+probe Ql (Unsp spec) COVID 19 RESULT: Detected The method used is RT-PCR or an equivalent NAAT method. Reference Range (the expected result in uninfected individuals): Not detected INFLUENZA A PCR: Not detected INFLUENZA B PCR: Not detected RSV PCR: Not detected Abnormal [facility] Comment on above: Performed By: #### C VFLRS #### [facility] CLIA [id number] [address] [place] [address] [place] XR CHEST 2V FRONTAL/LATon XR CHEST 2V FRONTAL/LAT * * *Final Report* * * DATE OF EXAM: Oct 04 2023 2:23PM WOX [id number] - XR CHEST 2V FRONTAL/LAT / PROCEDURE REASON: Acute cough * * * * Physician Interpretation * * * * EXAMINATION: CHEST RADIOGRAPH (2 VIEW FRONTAL and LATERAL) CLINICAL HISTORY: Acute cough MQ: XC2_6 EXAM DATE/TIME: 10/04/2023 2:23 PM COMPARISON: Chest radiograph 06/01/2020 RESULT: Lines, tubes, and devices: Preexistent right low medial neck stimulator with anterior right chest wall control unit and thoracic lead Lungs and pleura: No consolidation. No lung mass. No pleural effusion. No pneumothorax. Well-defined normal-sized peripheral vessels. No significant change Cardiomediastinal silhouette: Similar unremarkable contours. Normal heart size. Bones and soft tissues: No acute findings IMPRESSION: No acute radiographic abnormality. 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: MANE Transcribe Date/Time: Oct 04 2023 2:53P Dictated by : TRUONG ENG MD This examination was interpreted and the report reviewed and electronically signed by: TRUONG ENG MD on Oct 04 2023 2:59PM EST [id number] Normal [facility] XR Chest PA and Lateralon IMPRESSION: No acute radiographic abnormality. 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: MANE Transcribe Date/Time: Oct 04 2023 2:53P Dictated by : TRUONG ENG MD This examination was interpreted and the report reviewed and electronically signed by: TRUONG ENG MD on Oct 04 2023 2:59PM EST DIVISION OF RADIOLOGY * * *Final Report* * * DATE OF EXAM: Oct 04 2023 2:23PM WOX 5291 - XR CHEST 2V FRONTAL/LAT / PROCEDURE REASON: Acute cough * * * * Physician Interpretation * * * * EXAMINATION: CHEST RADIOGRAPH (2 VIEW FRONTAL & LATERAL) CLINICAL HISTORY: Acute cough MQ: XC2_6 EXAM DATE/TIME: 10/04/2023 2:23 PM COMPARISON: Chest radiograph 06/01/2020 RESULT: Lines, tubes, and devices: Preexistent right low medial neck stimulator with anterior right chest wall control unit and thoracic lead Lungs and pleura: No consolidation. No lung mass. No pleural effusion. No pneumothorax. Well-defined normal-sized peripheral vessels. No significant change Cardiomediastinal silhouette: Similar unremarkable contours. Normal heart size. Bones and soft tissues: No acute findings DIVISION OF RADIOLOGY Provider, [facility] - 10/04/2023 * * *Final Report* * * DATE OF EXAM: Oct 04 2023 2:23PM WOX 5291 - XR CHEST 2V FRONTAL/LAT / PROCEDURE REASON: Acute cough * * * * Physician Interpretation * * * * EXAMINATION: CHEST RADIOGRAPH (2 VIEW FRONTAL & LATERAL) CLINICAL HISTORY: Acute cough MQ: XC2_6 EXAM DATE/TIME: 10/04/2023 2:23 PM COMPARISON: Chest radiograph 06/01/2020 RESULT: Lines, tubes, and devices: Preexistent right low medial neck stimulator with anterior right chest wall control unit and thoracic lead Lungs and pleura: No consolidation. No lung mass. No pleural effusion. No pneumothorax. Well-defined normal-sized peripheral vessels. No significant change Cardiomediastinal silhouette: Similar unremarkable contours. Normal heart size. Bones and soft tissues: No acute findings IMPRESSION IMPRESSION: No acute radiographic abnormality. 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: PSCB Transcribe Date/Time: Oct 04 2023 2:53P Dictated by : TRUONG ENG MD This examination was interpreted and the report reviewed and electronically signed by: TRUONG ENG MD on Oct 04 2023 2:59PM EST [facility] Radiology Study observation (narrative) [facility] XR Chest PA and LateralOrder ed By: [facility] Provider on 10-04-2023 [facility] CNOVon 06-08-2023 CNOV Office Visit (GENSWS ) TEMO GARRISON ([id number]) 1940 M Date Time Provider Department 06/08/23 11:00 AM CHIDI BURTON GENS During your visit today, we recorded the following information about you: Urszula Quinn LPN 06/08/2023 12:10 PM Signed UNIVERSAL PROTOCOL / SAFETY CHECKLIST Procedure to [...] Plan of Care Visit completed when applicable. ALMA Troncoso Samaria, LPN 06/08/2023 12:10 PM Signed Instructions After HEMORRHODIAL BANDING If you note [...] feel free to call our office at [phone] and ask to be transferred to General Surgery. Thank you for choosing [facility] - General Surgery. Chidi Burton MD 06/08/2023 12:24 PM Signed FOLLOW UP VISIT - HEMORRHOID BANDING NAME: Temo Garrison [facility] NO.: [id number] DATE OF SERVICE: 06/08/2023 : 1940 REFERRING PHYSICIAN: Malick Al MD, Temo is a patient I am [...] me in 1 month if persistent bleeding. Chidi Burton MD Allergies As of Date: 06/08/2023 Noted Allergy Reaction FLOMAX (TAMSULOSIN) 06/01/2020 5 - Intolerance Comments: PASSED OUT CELECOXIB 06/03/2022 16 - Unknown MELOXICAM 01/20/2020 16 - Unknown Comments: In combination with celebrex MIRAPEX (PRAMIPEXOLE) 05/31/2010 5 - Intolerance UROXATRAL (ALFUZOSIN HCL) 04/30/2007 14 - Other: See Comments Comments: Testicular pain ZETIA (EZETIMIBE) 08/17/2005 14 - Other: See Comments Comments: (more content not included)... Normal [facility] CNOVon 05-18-2023 CNOV Office Visit (GENSWS ) TEMO GARRISON ([id number]) 1940 M Date Time Provider Department 05/18/23 3:00 PM BELÉN REYES During your visit today, we recorded the following information about you: Temperature Pulse Blood pressure Weight 97.3 degrees 104/minute 136/82 81.6 kg Height 1.727 m Belén Reyes PA-C 05/29/2023 7:56 AM Signed HISTORY AND PHYSICAL Temo Garrison 1940 REFERRING [...] prior endoscopy. Last colonoscopy 08/10/[address] Burton without concerning findings at that time. Patient's medical history is significant for hypertension, hyperlipidemia, type II diabetes mellitus, DVT, hypothyroidism. Patient follows with Dr. Al in primary care for his chronic medical issues. PAST MEDICAL HISTORY Diagnosis Date BPH (benign prostatic hyperplasia) previously seeing Dr. Berry Chronic kidney disease, stage 3 ([facility]) Seeing Dr. Moss DDD (degenerative disc disease), cervical DDD (degenerative disc disease), lumbar Seeing Dr. Thayer Diarrhea Diverticulosis of colon (without mention of hemorrhage) DVT (deep venous thrombosis) ([facility]) 08/06/2020 Essential tremor External hemorrhoids without mention [...] complication, without long-term current use of insulin ([facility]) 06/07/[address] 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 lancets ([employer] LANCETS) 30 gauge misc Use as directed to test glucose 3 times weekly. DX: E11.9 dupilumab (DUPIXENT SUBCUTANEOUS) Inject subcutaneously as needed (taking every three weeks). 08/17/2021 reported taking every 3 weeks cyanocobalamin, vitamin B-12, (VITAMIN B-12 INJECTION) by INJECTION(UNSPECIFIED PARENTERAL ROUTES) route once every month. blood sugar diagnostic ([employer]) test strip USE ONE STRIP TO CHECK GLUCOSE ONCE DAILY losartan (COZAAR) 25 mg tablet TAKE 1 TABLET DAILY ketoconazole (NIZORAL) 2 % shampoo Apply 1 application to affected area once daily as needed. atorvastatin (LIPITOR) 20 mg tablet Take 1 tablet by mouth once daily. Blood-Glucose Meter ([employer]) misc Use as directed. Cholecalciferol, Vitamin D3, 2,000 (more content not included)... Normal [facility] Office Visit (Sleep Medicine )on 02-27-2023 Follow-up visit Diagnoses/Problems Assessed Sleep apnea (780.57) (G47.30) Patient Discussion/Summary It was good to see you today! Obstructive Sleep Apnea (ROSITA) is a disorder characterized by recurrent apneas during sleep despite efforts to breathe. It is due to upper airway obstruction. These respiratory pauses may induce high levels of carbon dioxide or low oxygen levels. Cardiac arrhythmia and elevation of blood pressure in the body and the lungs may occur. Frequent partial arousals occur during a nights sleep resulting in sleep deprivation and daytime sleepiness. It has been associated with an increased risk of cardiovascular disease, stroke, hypertension, and insulin resistance. Positional therapy was advised. Avoid sleeping on your back. Diet, exercise, and weight loss were encouraged. Avoid alcohol late in the evening as it can make sleep apnea worse. Avoid driving and operating heavy equipment while sleepy. Drowsy driving may lead to life-threatening motor vehicle accident. Treatment options for sleep apnea include weight loss, positional therapy, PAP therapy, oral appliance therapy, and surgery. Follow up: I would like to see you back in 3 months or sooner as needed to see how you are doing. For Questions and Concerns: In case of difficulty with your PAP device or mask interface, please FIRST contact your [employer]. blogfoster can be reached at [phone]. For questions concerning your SLEEP CLINIC appointment: Call [phone] SLEEP LAB [phone] or [phone]. CAUTIONS for New PAP users: 1. You should know the [facility] compliance criteria if you have Medicare or Medicaid. We must see you back between 30 and 90 days from the time you receive your PAP device. Otherwise, your PAP device will be reclaimed by your PAP vendor at 90 days. 2. You must also use your PAP device for more than 4 hours 70% of the time (21 days for a period of 30 days). If you fail all three trials (90 days), your PAP device will be reclaimed. Many insurance companies also follow the same compliance rule. 3. You may be able to swap masks with your PAP vendor within 30 days without being charged for a new mask from the time you receive your PAP device. You should take the advantage of this offer if you have a hard time finding the right mask, as there are many mask options. Please do not get discouraged if you do not like the first one! 4. You must clean your PAP device regularly per instructions from your PAP vendor. Helpful Web Sites: For patients with ALL SLEEP DISORDERS: [employer] http://sleepeducation.org; or National Sleep Foundation: https://sleepfoundation.org For patients with ROSITA: [place] [employer]: https://www.sleepapnea.org For patients with RLS: RLS Foundation: https://www.rls.org For patients with INSOMNIA: https://www.helpguide.org/codi zavala/sleep/insomnia-caus ru-mgu-mvpwx.htm For patients with DEPRESSION: http://www.unbrokenwings.co m/depression Provider Impressions 81 year M with pmhx including rls? . 2 with evening meal; and one at bedtime. 1- ROSITA was using inspire and oral appliance? currently only on inspire. implanted: 12/02/2016 [facility]. activated: ?? december 2016?? hst 06/05 with oral appliance?? we do not have a record of his titration study done after activation? inspire titration 10/17/22 --> suboptimal titration. HST 11/25/20 --> zAHI 35 51.9, AHI 4% 42.9, SpO2 katey 74.9 %. unclear if was using inspire. HST 05/25/21 --> AHI 3% 26.8, AHI 4% 24.4, SpO2 katey 63.1%; unclear if was using inspire of note, patient states that he tried pap therapy but his sleep apnea was not controlling his sleep apnea? 03/21/22 incoming voltage 2.4V, range 1.8-2.8V start delay 40min pause time 15min therapy duration 10hrs usage 40 per week. -ordered titration inspire study, with no usage of oral appliance, also start at 2V (concerned about over titration) 11/21/22 Reviewed and discussed the above sleep study results and management options in details. All questions answered, patient verbalizes understanding. titration was suboptimal, patient has been struggling with his sleep due to back pain 2/2 falling; impedances checked and ok. made some setting changes as follows. amplitude: 0.9 (was 2.4) patient control 0.8-1.8V (was 2.1-3.1) start delay 40min pause time 15min therapy duration 12 hrs electrodes off - off + (was +-+ off) sensational 0.7 V functional 0.8 V -there was some dipping on the right side of the tongue on +-+ off configuration; this improved with off-off +. -increase voltage as tolerated. -consider possible awake endoscopy? with ENT before another titration. 02/27/23 sensation: 0.6V functional:0.7V (more content not included)... Normal [employer] Tobacco Screening.on 023 Fall risk assessment a) No falls within the last year [facility]We stYooLotto [id number] DO Work Phone: Tobacco use status [facility] b) No [facility] stlake [id number] DO Work Phone: CNPNon 02-15-2023 [facility] Telephone (Hidden RadioN) TEMO GARRISON ([id number]) 1940 M Date Time Provider Department 02/15/23 [facility] PROVIDER PERN During your visit today, we recorded the following information about you: Katherine Gao 02/20/2023 6:06 PM Addendum First attempt to reach patient. No VM left. Katherine Gao February 15, 2023 6:30 PM Second attempt to reach patient. Katherine Gao February 18, 2023 12:32 PM Patient decline currently has new PCP. Katherine Gao February 20, 2023 6:06 PM Allergies As of Date: 02/15/2023 Noted Allergy Reaction FLOMAX (TAMSULOSIN) 06/01/2020 5 - Intolerance Comments: PASSED OUT CELECOXIB 06/03/2022 16 - Unknown MELOXICAM 01/20/2020 16 - Unknown Comments: In combination with celebrex MIRAPEX (PRAMIPEXOLE) 05/31/2010 5 - Intolerance UROXATRAL (ALFUZOSIN HCL) 04/30/2007 14 - Other: See Comments Comments: Testicular pain ZETIA (EZETIMIBE) 08/17/2005 14 - Other: See Comments Comments: Muscle pain and weakness ZOCOR (SIMVASTATIN) 08/17/2005 14 - Other: See Comments Comments: Muscle pain and weakness Date Reviewed: 06/03/2022 Reviewed by: Milli López MA - Fully Assessed Reason for Visit: Appointment [186] Prescriptions as of 02/20/2023 - omeprazole (PRILOSEC) 40 mg capsule TAKE 1 CAPSULE DAILY - rOPINIRole (REQUIP) 0.25 mg tablet - apixaban (ELIQUIS) 5 mg tab(s) Take 1 tablet by mouth twice daily. - DULoxetine (CYMBALTA) 60 mg capsule Take 60 mg by mouth twice daily. - GUAIFENESIN ORAL Take 600 mg by mouth twice daily. - diphenhydrAMINE (BENADRYL) 25 mg capsule Take 25 mg by mouth daily at bedtime. - lancets ([employer] LANCETS) 30 gauge misc Use as directed to test glucose 3 times weekly. DX: E11.9 - dupilumab (DUPIXENT SUBCUTANEOUS) Inject subcutaneously as needed (taking every three weeks). 08/17/2021 reported taking every 3 weeks - cyanocobalamin, vitamin B-12, (VITAMIN B-12 INJECTION) by INJECTION(UNSPECIFIED PARENTERAL ROUTES) route once every month. - sitaGLIPtin (JANUVIA) 50 mg tablet Take 1 tablet by mouth once daily. - blood sugar diagnostic ([employer]) test strip USE ONE STRIP TO CHECK GLUCOSE ONCE DAILY - losartan (COZAAR) 25 mg tablet TAKE 1 TABLET DAILY - nortriptyline (PAMELOR) 10 mg capsule Take 1 capsule by mouth daily at bedtime. - ketoconazole (NIZORAL) 2 % shampoo Apply 1 application to affected area once daily as needed. - atorvastatin (LIPITOR) 20 mg tablet Take 1 tablet by mouth once daily. - Blood-Glucose Meter ([employer]) misc Use as directed. - Cholecalciferol, Vitamin D3, 2,000 unit ORAL Cap Take 2,000 Units by mouth. - ascorbic acid(VITAMIN C 500 MG TAB) Take one (1) tablet twice daily. Meds Comments as of 10/05/2009: Problem List As Of Date 02/15/2023 Noted Resolved Primary osteoarthritis involving multiple joint* Hyperlipidemia [E78.5] 11/23/2015 Myalgia [M79.10] Hernia of other specified sites of abdominal ca* 12/02/2021 BPH (benign prostatic hyperplasia) [N40.0] 05/28/2007 Bladder neck obstruction [N32.0] 05/28/2007 01/03/2014 Postoperative urethral stricture [IAE1611] 11/26/2007 01/03/2014 Cellulitis and abscess of toe, unspecified [L03*09/08/2009 01/03/2014 Ingrowing nail [L60.0] 09/22/2009 01/03/2014 Hyperactivity of bladder [N31.8] 10/05/2009 02/25/2013 Mallet finger [M20.019] 05/09/2011 Pain in finger [M79.646] 05/09/2011 01/03/2014 Hypertension [I10] 07/21/2011 11/25/2016 Nocturia [R35.1] 09/19/2011 02/25/2013 Urgency of urination [R39.15] 09/19/2011 02/25/2013 Frequency of urination [R35.0] 09/19/2011 02/25/2013 Retrograde ejaculation [N53.14] 09/19/2011 12/02/2021 Difficulty voiding [R39.198] 09/19/2011 02/25/2013 Raynaud disease [I73.00] 02/19/2012 Impotence [N52.9] 09/23/2013 Urinary retention [R33.9] 09/23/2014 11/18/2016 ROSITA (obstructive sleep apnea) [G47.33] 07/08/2015 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] 10/06/2015 Mixed hyperlipidemia [E78.2] 11/23/2015 Raynaud's disease without gangrene [I73.00] 11/23/2015 11/18/2016 Essential hypertension [I10] 11/23/2015 Essential tremor [G25.0] 11/23/2015 Chronic back pain [M54.9, G89.29] 11/18/2016 Chronic kidney disease [N18.9] 11/25/2016 Chronic kidney disease [N18.9] 11/25/2016 12/02/2021 Fibromyalgia [M79.7] Type 2 diabetes mellitus without complication, *06/07/2017 Sweating profusely [R61] 10/15/2017 Stage 3 chronic kidney disease (HCC) [N18.30] 10/29/2019 DVT (deep venous thrombosis) (HCC) [I82.409] 08/06/2020 Excessive drinking alcohol [F10.10] 08/06/2020 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 [K22.70] 12/02/2021 Encounter Status:Closed by KATHERINE GAO on 02/15/23 Normal [facility] Office Visit (Sleep Medicine )on 11-21-2022 Follow-up visit Diagnoses/Problems Assessed Obstructive sleep apnea, adult (327.23) (G47.33) Patient Discussion/Summary It was good to see you today! Obstructive Sleep Apnea (ROSITA) is a disorder characterized by recurrent apneas during sleep despite efforts to breathe. It is due to upper airway obstruction. These respiratory pauses may induce high levels of carbon dioxide or low oxygen levels. Cardiac arrhythmia and elevation of blood pressure in the body and the lungs may occur. Frequent partial arousals occur during a nights sleep resulting in sleep deprivation and daytime sleepiness. It has been associated with an increased risk of cardiovascular disease, stroke, hypertension, and insulin resistance. Positional therapy was advised. Avoid sleeping on your back. Diet, exercise, and weight loss were encouraged. Avoid alcohol late in the evening as it can make sleep apnea worse. Avoid driving and operating heavy equipment while sleepy. Drowsy driving may lead to life-threatening motor vehicle accident. Treatment options for sleep apnea include weight loss, positional therapy, PAP therapy, oral appliance therapy, and surgery. Follow up: I would like to see you back in 3 months or sooner as needed to see how you are doing. For Questions and Concerns: In case of difficulty with your PAP device or mask interface, please FIRST contact your [employer]. [email or web address] can be reached at [phone]. For questions concerning your SLEEP CLINIC appointment: Call [phone] SLEEP LAB [phone] or [phone]. CAUTIONS for New PAP users: 1. You should know the [facility] compliance criteria if you have Medicare or Medicaid. We must see you back between 30 and 90 days from the time you receive your PAP device. Otherwise, your PAP device will be reclaimed by your PAP vendor at 90 days. 2. You must also use your PAP device for more than 4 hours 70% of the time (21 days for a period of 30 days). If you fail all three trials (90 days), your PAP device will be reclaimed. Many insurance companies also follow the same compliance rule. 3. You may be able to swap masks with your PAP vendor within 30 days without being charged for a new mask from the time you receive your PAP device. You should take the advantage of this offer if you have a hard time finding the right mask, as there are many mask options. Please do not get discouraged if you do not like the first one! 4. You must clean your PAP device regularly per instructions from your PAP vendor. Helpful Web Sites: For patients with ALL SLEEP DISORDERS: [employer] http://sleepeducation.org; or National Sleep Foundation: https://sleepfoundation.org For patients with ROSITA: [place] Sleep Apnea Association: https://www.sleepapnea.org For patients with RLS: RLS Foundation: https://www.rls.org For patients with INSOMNIA: https://www.helpguide.org/a rticles/sleep/insomnia-caus si-qgx-tcsun.htm For patients with DEPRESSION: http://www.unbroOpenCloudgs.co m/depression Provider Impressions 81 year M with pmhx including rls? . 2 with evening meal; and one at bedtime. 1- ROSITA was using inspire and oral appliance?;currently only on inspire. implanted: 12/02/2016 [facility]cf. activated: ?? december 2016?? hst 06/05 with oral appliance?? we do not have a record of his titration study done after activation? inspire titration 10/17/22 --> suboptimal titration. HST 11/25/20 --> AHI 35 51.9, AHI 4% 42.9, SpO2 katey 74.9 %. unclear if was using inspire. HST 05/25/21 --> AHI 3% 26.8, AHI 4% 24.4, SpO2 katey 63.1%; unclear if was using inspire 03/21/22 incoming voltage 2.4V, range 1.8-2.8V start delay 40min pause time 15min therapy duration 10hrs usage 40 per week. -ordered titration inspire study, with no usage of oral appliance, also start at 2V (concerned about over titration) 11/21/22 Reviewed and discussed the above sleep study results and management options in details. All questions answered, patient verbalizes understanding. titration was suboptimal, patient has been struggling with his sleep due to back pain 2/2 falling; impedances checked and ok. made some setting changes as follows. amplitude: 0.9 (was 2.4) patient control 0.8-1.8V (was 2.1-3.1) start delay 40min pause time 15min therapy duration 12 hrs electrodes off - off + (was +-+ off) sensational 0.7 V functional 0.8 V -there was some dipping on the right side of the tongue on +-+ off configuration; this improved with off-off +. -increase voltage as tolerated. -consider possible awake endoscopy? with ENT before another titration. RESTLESS LEG SYNDROME -RLS education provided today in clinic. -Avoid caffeine containing beverages, chocolate, nicotine and alcohol as the (more content not included)... Normal [facility] No Panel Informationon 06-03 IMPRESSION: Oblique fracture of the distal right fibula 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: [facility] Transcribe Date/Time: Jun 03 2022 10:41A Dictated by : SREEKANTH PENDLETON MD This examination was interpreted and the report reviewed and electronically signed by: SREEKANTH PENDLETON MD on Jun 03 2022 10:43AM [facility] DIVISION OF RADIOLOGY Radiology Study observation (narrative) [facility] No Panel InformationOrdered By: [facility] Provider on 06-03-2022 [facility] XR Ankle - right AP and Late ral and obliqueon 06-03-2022 * * *Final Report* * * DATE OF EXAM: Jun 03 2022 10:13AM WOX 5297 - XR ANKLE 3V AP/LAT/OBL RT / PROCEDURE REASON: Lower extremity injury, right, initial encounter * * * * Physician Interpretation * * * * EXAMINATION: XR TIBIA FIBULA 2V AP/LAT RT, XR ANKLE 3V AP/LAT/OBL RT CLINICAL HISTORY: Technique: XR TIBIA FIBULA 2V AP/LAT RT, XR ANKLE 3V AP/LAT/OBL RT -- RIGHT with 2 (accession [id number]), 3 (accession [id number]) views on 2 (accession [id number]), 3 (accession [id number]) images Comparison: None RESULT: Oblique fracture of the distal right fibula with approximately 3 mm displacement. No dislocation. Ankle mortise is maintained. Plantar calcaneal spur. Right knee prosthesis. Soft tissue swelling of the right ankle. DIVISION OF RADIOLOGY Provider, [facility] - 06/03/2022 * * *Final Report* * * DATE OF EXAM: Jun 03 2022 10:13AM WOX 5297 - XR ANKLE 3V AP/LAT/OBL RT / PROCEDURE REASON: Lower extremity injury, right, initial encounter * * * * Physician Interpretation * * * * EXAMINATION: XR TIBIA FIBULA 2V AP/LAT RT, XR ANKLE 3V AP/LAT/OBL RT CLINICAL HISTORY: Technique: XR TIBIA FIBULA 2V AP/LAT RT, XR ANKLE 3V AP/LAT/OBL RT -- RIGHT with 2 (accession [id number]), 3 (accession [id number]) views on 2 (accession [id number]), 3 (accession [id number]) images Comparison: None RESULT: Oblique fracture of the distal right fibula with approximately 3 mm displacement. No dislocation. Ankle mortise is maintained. Plantar calcaneal spur. Right knee prosthesis. Soft tissue swelling of the right ankle. IMPRESSION IMPRESSION: Oblique fracture of the distal right fibula 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: [facility]ENTERPeer39 Transcribe Date/Time: Jun 03 2022 10:41A Dictated by : SREEKANTH PENDLETON MD This examination was interpreted and the report reviewed and electronically signed by: SREEKANTH PENDLETON MD on Jun 03 2022 10:43AM [facility] XR Tibia and Fibula - right AP and Lateralon 06-03-2022 * * *Final Report* * * DATE OF EXAM: Jun 03 2022 10:13AM WOX 5266 - XR TIBIA FIBULA 2V AP/LAT RT / PROCEDURE REASON: Lower extremity injury, right, initial encounter * * * * Physician Interpretation * * * * EXAMINATION: XR TIBIA FIBULA 2V AP/LAT RT, XR ANKLE 3V AP/LAT/OBL RT CLINICAL HISTORY: Technique: XR TIBIA FIBULA 2V AP/LAT RT, XR ANKLE 3V AP/LAT/OBL RT -- RIGHT with 2 (accession [id number]), 3 (accession [id number]) views on 2 (accession [id number]), 3 (accession [id number]) images Comparison: None RESULT: Oblique fracture of the distal right fibula with approximately 3 mm displacement. No dislocation. Ankle mortise is maintained. Plantar calcaneal spur. Right knee prosthesis. Soft tissue swelling of the right ankle. DIVISION OF RADIOLOGY Provider, [facility] - 06/03/2022 * * *Final Report* * * DATE OF EXAM: Jun 03 2022 10:13AM WOX 5266 - XR TIBIA FIBULA 2V AP/LAT RT / PROCEDURE REASON: Lower extremity injury, right, initial encounter * * * * Physician Interpretation * * * * EXAMINATION: XR TIBIA FIBULA 2V AP/LAT RT, XR ANKLE 3V AP/LAT/OBL RT CLINICAL HISTORY: Technique: XR TIBIA FIBULA 2V AP/LAT RT, XR ANKLE 3V AP/LAT/OBL RT -- RIGHT with 2 (accession [id number]), 3 (accession [id number]) views on 2 (accession [id number]), 3 (accession [id number]) images Comparison: None RESULT: Oblique fracture of the distal right fibula with approximately 3 mm displacement. No dislocation. Ankle mortise is maintained. Plantar calcaneal spur. Right knee prosthesis. Soft tissue swelling of the right ankle. IMPRESSION IMPRESSION: Oblique fracture of the distal right fibula 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: [facility] Transcribe Date/Time: Jun 03 2022 10:41A Dictated by : SREEKANTH PENDLETON MD This examination was interpreted and the report reviewed and electronically signed by: SREEKANTH PENDLETON MD on Jun 03 2022 10:43AM EST [facility] Office Visit (Sleep Medicine )on 03-21-2022 Follow-up visit Diagnoses/Problems Assessed Obstructive sleep apnea, adult (327.23) (G47.33) Orders Obstructive sleep apnea, adult In Lab PSG Sleep Study, 6 years of age and greater; Status:Hold For - Scheduling; Requested for:21Mar2022; Perform:Sleep Lab - [place] [facility]; Order Comments:inspire titration study. Please start at 2.0V. do not use oral appliance during this study please.; Due:[id number];Ordered; For:Obstructive sleep apnea, adult; Ordered By:Justin Dial; Non-ambulatory,wheelchair,o ther physical limitations? : No Ensuresis(prep bed), Technology dependent(Gtube/trach)? : No O2 requirements during the study? : No PSG PRECAUTIONS: Please select any applicable precautions : None COMORBIDITIES : None PSG INDICATIONS : Evaluation/treatment of Obstructive Sleep Apnea [G47.33] Study Type : Treatment - PAP or Other Patient Discussion/Summary It was good to see you today! Please use your inspire therapy regularly and get your sleep study done. Obstructive Sleep Apnea (ROSITA) is a disorder characterized by recurrent apneas during sleep despite efforts to breathe. It is due to upper airway obstruction. These respiratory pauses may induce high levels of carbon dioxide or low oxygen levels. Cardiac arrhythmia and elevation of blood pressure in the body and the lungs may occur. Frequent partial arousals occur during a nights sleep resulting in sleep deprivation and daytime sleepiness. It has been associated with an increased risk of cardiovascular disease, stroke, hypertension, and insulin resistance. Positional therapy was advised. Avoid sleeping on your back. Diet, exercise, and weight loss were encouraged. Avoid alcohol late in the evening as it can make sleep apnea worse. Avoid driving and operating heavy equipment while sleepy. Drowsy driving may lead to life-threatening motor vehicle accident. Treatment options for sleep apnea include weight loss, positional therapy, PAP therapy, oral appliance therapy, and surgery. Follow up: I would like to see you back in 6 weeks or sooner as needed to see how you are doing. For Questions and Concerns: In case of difficulty with your PAP device or mask interface, please FIRST contact your [employer]. [employer] can be reached at [phone]. For questions concerning your SLEEP CLINIC appointment: Call [phone] SLEEP LAB [phone] or [phone]. CAUTIONS for New PAP users: 1. You should know the CMS compliance criteria if you have Medicare or Medicaid. We must see you back between 30 and 90 days from the time you receive your PAP device. Otherwise, your PAP device will be reclaimed by your PAP vendor at 90 days. 2. You must also use your PAP device for more than 4 hours 70% of the time (21 days for a period of 30 days). If you fail all three trials (90 days), your PAP device will be reclaimed. Many insurance companies also follow the same compliance rule. 3. You may be able to swap masks with your PAP vendor within 30 days without being charged for a new mask from the time you receive your PAP device. You should take the advantage of this offer if you have a hard time finding the right mask, as there are many mask options. Please do not get discouraged if you do not like the first one! 4. You must clean your PAP device regularly per instructions from your PAP vendor. Helpful Web Sites: For patients with ALL SLEEP DISORDERS: [place] [employer] http://sleepeducation.org; or National Sleep Foundation: https://sleepfoundation.org For patients with ROSITA: [place] Sleep Apnea Association: https://www.sleepapnea.org For patients with RLS: RLS Foundation: https://www.rls.org For patients with INSOMNIA: https://www.helpguide.org/a rticles/sleep/insomnia-caus or-duj-yntzo.htm For patients with DEPRESSION: http://www.unbrokenwings.co m/depression Provider Impressions 81 year M with pmhx including rls? . 2 with evening meal; and one at bedtime. 1- ROSITA using inspire and oral appliance 03/21/22 incoming voltage 2.4V, range 1.8-2.8V start delay 40min pause time 15min therapy duration 10hrs usage 40 per week. implanted: 12/02/2016 [facility]cf. activated: ?? december 2016?? hst 06/05 with oral appliance?? -ordered titration inspire study, with no usage of oral appliance, also start at 2V (concerned about over titration) RESTLESS LEG SYNDROME -RLS education provided today in clinic. -Avoid caffeine containing beverages, chocolate, nicotine and alcohol as these can make symptoms worse. -You can try massage, exercise, stretching or warm baths before bed time. -on ropinirole by neurology f/u 6 weeks or sooner as needed. Chief Complaint Follow up- Sleep apnea Inspire patient. Reason For Visit (more content not included)... Normal [facility] Tobacco Screening.on Fall risk assessment a) No falls within the last year [facility] radha A2470 DO Work Phone: Tobacco use status CP b) No [facility] radha A2470 DO Work Phone: ANES POSTPROC EVALon ANES POSTPROC EVAL HNO ID: [id number] Author: Wolfgang Carney MD Service: Anesthesiology Author Type: Physician Type: Anesthesia Postprocedure Evaluation Filed: 12/13/2021 12:49 PM Note Text: POST ANESTHESIA EVALUATION NOTE : 1940 Procedure Summary Date: 12/13/21 Room / Location: [facility] Endoscopy Anesthesia Start: 1110 Anesthesia Stop: 1132 Procedure: EGD DIAGNOSTIC Diagnosis: 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 (Follow-up of Small's esophagus) Scheduled Providers: Chidi Burton MD; Norma Angel APRN.PLANER CHAIN OFFBEARER; Wolfgang Carney MD Responsible Provider: Wolfgang Carney MD Anesthesia Type: MAC ASA Status: 3 Anesthesia Type: MAC Last Vitals Vitals Value Taken Time BP 146/69 12/13/21 1200 Temp 36.3 ?C (97.3 ?F) 12/13/21 1200 Pulse 69 12/13/21 1211 Resp 15 12/13/21 1211 SpO2 99 % 12/13/21 1211 Vitals shown include unvalidated device data. Post Anesthesia Patient Status Patient Evaluation: PACU. PACU/ICU Patient Condition: stable. Anticipated Disposition: phase 2 then home. Neurological Status: aware and responsive. Pulmonary Status: breathing comfortably on room air Airway Control: returned to baseline unsupported. Cardiovascular Status: stable. Pain Management: clinically adequate - multimodal analgesia pain management approach Postoperative Hydration: acceptable. Intraoperative Events: no significant anesthesia events Recommendation: continue current plan of care. Anesthesia Observations No Documentation SIGNATURE: Wolfgang Carney MD PATIENT NAME: Temo Garrison DATE: December 13, 2021 TIME: 12:48 PM CSN: [id number] Normal [facility] ANES PRE-OPon 12-13-2021 ANES PRE-OP HNO ID: [id number] Author: Wolfgang Carney MD Service: Anesthesiology Author Type: Physician Type: Anesthesia Preprocedure Evaluation Filed: 12/13/2021 10:10 AM Note Text: ANESTHESIOLOGY DAY OF SURGERY NOTE : 1940 Procedure Information Date/Time: 12/13/21 1100 Scheduled providers: Chidi Burton MD; Norma Angel APRN.[employer]ER CHAIN OFFBEARER; Wolfgang Carney MD Procedure: EGD DIAGNOSTIC Location: [facility] Endoscopy Estimated body mass index is 27.8 kg/m? as calculated from the following: Height as of 12/02/21: 174.2 cm (5' 8.58 ). Weight as of 12/02/21: 84.4 kg (186 lb). Most recent hematocrit and potassium results: Hematocrit 41.6 06/01/2017 Potassium 4.8 06/01/2020 Relevant Problems ANESTHESIA (+) ROSITA (obstructive sleep apnea) CARDIO (+) DVT (deep venous thrombosis) (HCC) (+) Essential hypertension (+) Raynaud disease ENDO (+) Type 2 diabetes mellitus without complication, without long-term current use of insulin (HCC) -RENAL (+) Stage 3 chronic kidney disease (HCC) PULMONARY (+) ROSITA (obstructive sleep apnea) I - PHYSICAL EVALUATION AIRWAY Patient intubated: No. Tracheostomy tube not present Mallampati: II. TM distance: >3 FB. Neck ROM: full ROM without neurological symptoms. Mouth opening: adequate. Short neck: no. Thick neck: no DENTAL Normal dental observations. Dental findings: teeth intact. Additional exam findings: no II - ANESTHESIA PLAN ASA Score: 3 Anesthetic Plan: MAC NPO Status: adequate Monitoring plan: Standard ASA. Postoperative analgesic plan: parenteral or oral opioids and multimodal analgesia. Patient / Surrogate agrees to blood products: blood products not planned DNR status not reviewed with patient and/or family prior to surgery. Significant changes in the patient condition since the History and Physical, not otherwise documented in primary service progress note: no. Potential Anesthesia issues that may suggest increased risk of complications or contraindication to planned procedure: none. No vitals data found for the desired time range. Outpatient Medications as of 12/13/2021 Medication Sig - rOPINIRole (REQUIP) 0.25 mg tablet - omeprazole (PRILOSEC) 20 mg capsule Take 1 capsule by mouth once daily. - apixaban (ELIQUIS) 5 mg tab(s) Take 1 tablet by mouth twice daily. - DULoxetine (CYMBALTA) 60 mg capsule Take 60 mg by mouth twice daily. - diphenhydrAMINE (BENADRYL) 25 mg capsule Take 25 mg by mouth daily at bedtime. - sitaGLIPtin (JANUVIA) 50 mg tablet Take 1 tablet by mouth once daily. - losartan (COZAAR) 25 mg tablet TAKE 1 TABLET DAILY - nortriptyline (PAMELOR) 10 mg capsule Take 1 capsule by mouth daily at bedtime. - atorvastatin (LIPITOR) 20 mg tablet Take 1 tablet by mouth once daily. - Cholecalciferol, Vitamin D3, 2,000 unit ORAL Cap Take 2,000 Units by mouth. - ascorbic acid(VITAMIN C 500 MG TAB) Take one (1) tablet twice daily. - GUAIFENESIN ORAL Take 600 mg by mouth twice daily. - lancets ([employer] LANCETS) 30 gauge misc Use as directed to test glucose 3 times weekly. DX: E11.9 - dupilumab (DUPIXENT SUBCUTANEOUS) Inject subcutaneously as needed (taking every three weeks). 08/17/2021 reported taking every 3 weeks (Patient not taking: Reported on 12/02/2021 ) - cyanocobalamin, vitamin B-12, (VITAMIN B-12 INJECTION) by INJECTION(UNSPECIFIED PARENTERAL ROUTES) route once every month. - blood sugar diagnostic (LDL TechnologyTOUCH VERIO) test strip USE ONE STRIP TO CHECK GLUCOSE ONCE DAILY - ketoconazole (NIZORAL) 2 % shampoo Apply 1 application to affected area once daily as needed. - acyclovir (ZOVIRAX) 200 mg capsule Take 2 capsules by mouth twice daily. (suppressive therapy) (Patient not taking: Reported on 12/02/2021 ) - Blood-Glucose Meter (ZilikoUCH VERIO SYSTEM) misc Use as directed. No current facility-administered medications on file as of 12/13/2021. I have interviewed and examined the patient. I have reviewed the medical record and/or the pre-anesthesia evaluation, pertinent labs, and test results. This contains updated information obtained within 48 hours of Surgery/Procedure. SIGNATURE: Wolfgang Carney MD PATIENT NAME: Temo Garrison DATE: December 13, 2021 TIME: 10:09 AM CSN: [id number] Normal [facility] HISTORY PHYSICALon 2 HISTORY PHYSICAL HNO ID: [id number] Author: Chidi Burton MD Service: General Surgery Author Type: Physician Type: HANDP Filed: 12/13/2021 10:17 AM Note Text: DEPARTMENT OF GASTROENTEROLOGY - NEW PATIENT/CONSULT ? REASON FOR VISIT Temo Garrison is a 80 year old male who is scheduled for No chief complaint on file. ? The patient was seen by on 08/10/20?for colonoscopy and upper endoscopy for symptoms of Abnormal CT of the GI tract . ?The procedures were performed with MAC sedation. The procedure report has been reviewed and findings as follows: EGD?Impression:?- Normal examined jejunum. Biopsied. ?- Duodenitis. Biopsied. ?- Gastritis. Biopsied. ?- Small hiatal hernia. ?- Mildly severe reflux esophagitis. Biopsied. 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 ? Colonoscopy?Impression:?- The examined portion of the ileum was normal. ?Biopsi ed. ?- The entire examined colon is normal. Biopsied. ?- Diverticulosis in the sigmoid colon. ?- The distal rectum and anal verge are normal on ?retrof lexion view. ? FINAL DIAGNOSIS 1. Distal esophagus, biopsy (A) - Intestinal metaplasia, negative for dysplasia. - Squamous mucosa with reactive epithelial changes suggestive of gastroesophageal reflux. ?? 2. Stomach, antrum, biopsy (B) - Gastric antral-type mucosa with mild reactive gastropathy. -??No Helicobacter pylori organisms are identified. ? 3. Jejunum, biopsy (C) - Small bowel mucosa with no diagnostic abnormality. ?? 4. Random colon, biopsy (D) - Colonic mucosa with no diagnostic abnormality. ?? 5. Terminal ileum, biopsy (E) - Small bowel mucosa with no diagnostic abnormality. ? ? HISTORY OF PRESENT ILLNESS Temo Garrison is a 80 year old male with a past medical history of Small's esophagus, gastroduodenitis, diarrhea, diverticulosis, external hemorrhoids, internal hemorrhoids, ROSITA, HTN, hyperlipidemia, fibromyalgia, Raynaud's disease, essential tremor, BPH, shingles, rheumatic fever, DDD (cervical, lumbar) CKD, DM-2, basal cell carcinoma, DVT (Eliquis), RLS taking Requip (new medication) Who presents today for an evaluation of Small's esophagus surveillance screening. ? Patient reports he stopped omeprazole 20mg daily he didn't think this was doing anything. Difficulty swallowing / foods sticking in throat:NO Heartburn: NO Chronic cough:NO Regurgitation: NO Chest pain: NO Filling up quickly at meals:NO Loss of appetite: NO Nausea: NO Vomiting: NO Abdominal pain:NO Recent change in bowel movements:NO Bloody or black, bowel movements: NO Constipation: NO Diarrhea: Reports he has loose stools but this has been ongoing for many years last colonoscopy 2020 Loss of ?control of bowel movements: Fluid in abdomen (ascites): Vomiting blood: Recent change in weight: ? ? Patient reports he has postnasal drip taking quaifenesin - at night taking benadryl Patient has a sleep number bed -sleeps with the HOB elevated ? Recently he a sleep study - O2 dropped in the 70's multiple - Reports his sleep doctor discuss Oxygen at night. He is currently wearing a bite block to wear at night. ? He is seeing someone in [facility] because a steel wire in his finger and he is having a upcoming surgery to get it out and will need to hold Eliquis for 2-3 days waiting on hearing from to give clearance. ? The patient denies change in bowel habits,denies black stool, rectal bleeding or abdominal pain. Having a bowel movement twice daily and take loperamide every 3 days. Unable to take fiber because he reports he has a lot of gas. ? REVIEW OF SYSTEMS: GENERAL: No weight loss, malaise or fevers HEENT: Negative for frequent or significant headaches, No changes in hearing or vision, no nose bleeds or other nasal problems NECK: Negative for lumps, goiter, pain and significant neck swelling RESPIRATORY: Negative for cough, hemoptysis, wheezing, COPD, dyspnea or shortness of breath CARDIOVASCULAR: Negative for chest pain, leg swelling, hypertension, CHF or palpitations GI: see HPI : No history of dysuria, frequency or incontinence MUSCULOSKELETAL: Negative for joint pain or swelling, back pain or muscle pain SKIN: Negative for lesions, rash, and itching PSYCH: Negative for sleep disturbance, mood disorder and recent psychosocial stressors. HEMATOLOGY/LYMPHOLOGY Negative for prolonged bleeding, bruising easily or swollen nodes ENDOCRINE: Negative for cold or heat intolerance, polyuria, polydipsia and goiter NEURO: No history of headaches, syncope, paralysis, seizures or tremors All other reviewed and negative other than HPI. ? PAST MEDICAL HISTORY (more content not included)... Normal [facility] SURGICAL PATHOLOGYon 022 CASE REPORT Normal [facility] Comment on above: Order Comment: Speci men Type: TISSUE SPECIMEN Ordering Facility: [facility] Address: [address] [place] [id number] Result Comment: Surg ica Pathology Report Case: [id number] Authorizing Provider: Chidi Burton MD Collected: 12/13/2021 11:25 AM Ordering Location: [facility] Endoscopy Received: 12/13/2021 01:42 PM Pathologist: Jose Alfredo Mcguire MD Specimens: A) - ANTRUM (STOMACH) BIOPSY B) - ESOPHAGUS BIOPSY, @40cm C) - ESOPHAGUS BIOPSY, @38cm Performed By: #### S #### [facility] CLIA [id number] CLIA [id number] [address] [place], [place] [id number] [place] [address] CLINICAL HISTORY 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 A ntrum, biopsy: - Antral mucosa with foveolar hyperplasia and minimal chronic inflammation; no evidence of H. pylori. B. Esophagus, biopsy: - Fundic mucosa with minimal chronic inflammation; no evidence of intestinal metaplasia or dysplasia. C. Esophagus, biopsy: Inflamed squamous and cardiac-type mucosa with focal intestinal metaplasia; negative for dysplasia. Performed By: #### S #### [facility] CLIA [id number] [address] [place], [place] [address]NA LABORATORY CLIA [id number] [address] FINAL PERFORMING LAB Normal [facility] Comment on above: Order Comment: Speci men Type: TISSUE SPECIMEN Ordering Facility: [facility] Address: [address] [place] [address] Result Comment: Diag nostic interpretation performed at [facility], [address] [facility], [place] [address] CLIA# [id number] Project Development Manager: Amairani Clark M.D. Performed By: #### S #### [facility] CLIA [id number] [address] [place], [place] [id number] [facility] CLIA [id number] [address] GROSS DESCRIPTION Normal [facility] Comment on above: Order Comment: Speci men Type: TISSUE SPECIMEN Ordering Facility: [facility] Address: [address] [place], [place] [id number] Result Comment: A. A NTRUM (STOMACH) BIOPSY. Received in formalin is one piece of moss, soft tissue measuring 0.3 x 0.2 x 0.2 cm. Totally submitted in one cassette. B. ESOPHAGUS BIOPSY. Received in formalin are multiple pieces of moss, soft tissue aggregating to 0.5 x 0.4 x 0.2 cm. Totally submitted in one cassette. C. ESOPHAGUS BIOPSY. Received in formalin are multiple pieces of moss, soft tissue aggregating to 0.5 x 0.4 x 0.2 cm. Totally submitted in one cassette. J December 13, 2021 8:05 PM Gross examination performed at [facility], [address] [place] [address] Performed By: #### S #### [facility] CLIA [id number] [address] [place] [address] [facility] CLIA [id number] [address] 12-02-2021 LIDA Telephone (KESHIA) TEMO GARRISON ([id number]) 1940 M Date Time Provider Department 12/02/21 ROE COOK During your visit today, we recorded the following information about you: Roe Cook APRN.CNP 12/02/2021 12:23 PM Signed Patient seen at [facility] 12/02 for upcoming EGD on 12/13 with . 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 Does patient need to hold this for 3 days prior to surgery? Roe Cook APRN.CNP 12/02/2021 3:50 PM Signed Please call and relay message below to patient. Thanks! Roe Cook APRN.TESTER EQUIPMENT Chidi Burton MD You 21 minutes ago (3:27 PM) Does not need to hold blood thinners Delaney Mccormick RN 12/03/2021 9:27 AM Signed Called , spoke with pt, he does not need to hold blood thinners He has all other pre op instructions No further questions Delaney Mccormick RN December 03, 2021 9:27 AM Allergies As of Date: 12/02/2021 Noted Allergy Reaction FLOMAX (TAMSULOSIN) 06/01/2020 5 - Intolerance Comments: PASSED OUT MIRAPEX (PRAMIPEXOLE) 05/31/2010 5 - Intolerance UROXATRAL (ALFUZOSIN HCL) 04/30/2007 14 - Other: See Comments Comments: Testicular pain ZETIA (EZETIMIBE) 08/17/2005 14 - Other: See Comments Comments: Muscle pain and weakness ZOCOR (SIMVASTATIN) 08/17/2005 14 - Other: See Comments Comments: Muscle pain and weakness Date Reviewed: 12/02/2021 Reviewed by: Roe Cook APRN.TESTER EQUIPMENT - Fully Assessed Reason for Visit: Patient Update [1234] Prescriptions as of 12/03/2021 - rOPINIRole (REQUIP) 0.25 mg tablet - omeprazole (PRILOSEC) 20 mg capsule Take 1 capsule by mouth once daily. - apixaban (ELIQUIS) 5 mg tab(s) Take 1 tablet by mouth twice daily. - DULoxetine (CYMBALTA) 60 mg capsule Take 60 mg by mouth twice daily. - GUAIFENESIN ORAL Take 600 mg by mouth twice daily. - diphenhydrAMINE (BENADRYL) 25 mg capsule Take 25 mg by mouth daily at bedtime. - lancets (ONETOUCH DELICA LANCETS) 30 gauge misc Use as directed to test glucose 3 times weekly. DX: E11.9 - dupilumab (DUPIXENT SUBCUTANEOUS) Inject subcutaneously as needed (taking every three weeks). 08/17/2021 reported taking every 3 weeks - cyanocobalamin, vitamin B-12, (VITAMIN B-12 INJECTION) by INJECTION(UNSPECIFIED PARENTERAL ROUTES) route once every month. - sitaGLIPtin (JANUVIA) 50 mg tablet Take 1 tablet by mouth once daily. - blood sugar diagnostic (ZilikoUCH VERIO) test strip USE ONE STRIP TO CHECK GLUCOSE ONCE DAILY - losartan (COZAAR) 25 mg tablet TAKE 1 TABLET DAILY - nortriptyline (PAMELOR) 10 mg capsule Take 1 capsule by mouth daily at bedtime. - ketoconazole (NIZORAL) 2 % shampoo Apply 1 application to affected area once daily as needed. - atorvastatin (LIPITOR) 20 mg tablet Take 1 tablet by mouth once daily. - acyclovir (ZOVIRAX) 200 mg capsule Take 2 capsules by mouth twice daily. (suppressive therapy) - Blood-Glucose Meter (ZilikoUCH VERIO SYSTEM) misc Use as directed. - Cholecalciferol, Vitamin D3, 2,000 unit ORAL Cap Take 2,000 Units by mouth. - ascorbic acid(VITAMIN C 500 MG TAB) Take one (1) tablet twice daily. Meds Comments as of 10/05/2009: Problem List As Of Date 12/02/2021 Noted Resolved Primary osteoarthritis involving multiple joint* Hyperlipidemia [E78.5] 11/23/2015 Myalgia [M79.10] Hernia of other specified sites of abdominal ca* 12/02/2021 BPH (benign prostatic hyperplasia) [N40.0] 05/28/2007 Bladder neck obstruction [N32.0] 05/28/2007 01/03/2014 Postoperative urethral stricture [FQH9269] 11/26/2007 01/03/2014 Cellulitis and abscess of toe, unspecified [L03*09/08/2009 01/03/2014 Ingrowing nail [L60.0] 09/22/2009 01/03/2014 Hyperactivity of bladder [N31.8] 10/05/2009 02/25/2013 Mallet finger [M20.019] 05/09/2011 Pain in finger [M79.646] 05/09/2011 01/03/2014 Hypertension [I10] 07/21/2011 11/25/2016 Nocturia [R35.1] 09/19/2011 02/25/2013 Urgency of urination [R39.15] 09/19/2011 02/25/2013 Frequency of urination [R35.0] 09/19/2011 02/25/2013 Retrograde ejaculation [N53.14] 09/19/2011 12/02/2021 Difficulty voiding [R39.198] 09/19/2011 02/25/2013 Raynaud disease [I73.00] 02/19/2012 Impotence [N52.9] 09/23/2013 Urinary retention [R33.9] 09/23/2014 11/18/2016 ROSITA (obstructive sleep apnea) [G47.33] 07/08/2015 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 Normal [facility] HISTORY PHYSICALon HISTORY PHYSICAL HNO ID: [id number] Author: Roe Cook APRN.TESTER EQUIPMENT Service: ? Author Type: Nurse Practitioner Type: HANDP Filed: 12/02/2021 4:33 PM Note Text: HISTORY AND PHYSICAL EXAMINATION SERVICE DATE: 12/02/2021 SERVICE TIME: 11:40 AM PRIMARY CARE PHYSICIAN: Monserrat Wilson MD REASON FOR VISIT: Temo Garrison is a 80 year old male who is scheduled for EGD at the request of Dr. Zuniga for consultation. My final recommendation will be communicated back to the requesting physician by way of shared medical record or letter. 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 Denies abdominal, nausea, or vomiting. Taking Prilosec every day without symptoms. States this is a follow up EGD from a couple of years ago. Had intermittent blood in stool for a couple of weeks fire engine red at times. Rarely was able to color towel bowl water. No symptoms in the last 2 weeks. Otherwise was on toilet paper and in underwear. Increased gassiness with some stool passage that has been going on for over 30 years. Stated old PCP's have looked into the gassiness with stool passage. Patient states he's discussed this with Dr.Guttmans HENLEY. REVIEW OF SYSTEMS: General: No weight loss, malaise or fevers. Neurological: RLS- keeps him up at night on rx for this Negative for: headaches, multiple sclerosis, Parkinson's disease, seizures and strokes. Respiratory: Positive for: obstructive sleep apnea. Negative for: asthma, COPD, current cough, dyspnea, orthopnea and tobacco use. Cardiovascular: Positive for: anticoagulation therapy (eliquis), DVT/PE (on rx- history of LLE clot), hyperlipidemia (on rx) and hypertension (on rx) Negative for: angina, arrhythmia, atrial fibrillation, chest pain and murmur/valvular heart disease. GI: See HPI : Positive for: BPH (s/p turp), nocturia >1 time per night and renal failure (CKD). Negative for: dysuria, hematuria, urinary incontinence and urgency. Endocrine: Positive for: diabetes mellitus (on rx). Negative for: hyperthyroidism and hypothyroidism. Hematology: No history of bleeding or clotting disorder. Patient is not taking anti-coagulation or platelet medications. No history of hematological symptoms or problems. Oncology: No history of CA metastasis, chemo within 30 days, or radiotherapy within 90 days. No history of oncological symptoms or problems. Psych: No history of psychiatric symptoms or problems. Musculoskeletal: Raynauds in feet- has area on right foot that is being followed by podiatry, f/u 12/14 Positive for: joint pain (fibromyalgia ). Negative for: swelling. Skin: Negative for lesions, rash and itching. PAST MEDICAL HISTORY Diagnosis Date - BPH (benign prostatic hyperplasia) previously seeing Dr. Berry - Chronic kidney disease, stage 3 (HCC) Seeing Dr. Moss - DDD (degenerative disc disease), cervical - DDD (degenerative disc disease), lumbar Seeing Dr. Thayer - Diarrhea - Diverticulosis of colon (without mention of hemorrhage) - DVT (deep venous thrombosis) ([facility]) 08/06/2020 - Essential tremor - External hemorrhoids without mention of complication - Fibromyalgia - Hernia of other specified sites of abdominal cavity without mention of obstruction or gangrene Umbilical and Left Inguinal - History of basal cell carcinoma of skin 04/2018 right medial chest - Hyperlipidemia - Hypertension - Impotence - Internal hemorrhoids without mention of complication - Obstructive sleep apnea Seeing Dr. Menon - Osteoarthrosis, unspecified whether generalized or localized, other specified sites Osteoarthritis-R wrist - Raynaud disease - Rheumatic fever - Shingles - Type 2 diabetes mellitus without complication, without long-term current use of insulin ([facility]) 06/07/[address] 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 Normal [facility] Tobacco Screening.on Fall risk assessment a) No falls within the last year [facility] [address] DO Work Phone: [phone] Tobacco use status [facility] b) No [facility] DO Work Phone: [phone] ARTERIAL BLOOD GASon 12-14-2 021 BASE EXCESS-BLOOD 6.1 mmol/L High -2.0 - 3.0 [facility] Comment on above: Performed By: #### B LGA1 #### [place] [address] BICARB, CALCULATED 29.6 mmol/L High 22.0 - 26.0 [facility] Comment on above: Performed By: #### Gianni LGA1 #### [place] [address] FIO2 21 % Normal [facility] Comment on above: Performed By: #### Gianni LGA1 #### [place] [address] Oxygen (Bld) [Partial pressure] 93 mm[Hg] Normal 85 - 95 [facility] Comment on above: Performed By: #### Gianni LGA1 #### [place] [address] PCO2 38 mmHg Normal 38 - 42 [facility] Comment on above: Performed By: #### Gianni LGA1 #### [place] [address] pH (Bld) 7.50 [pH] High 7.38 - 7.42 [facility] Comment on above: Performed By: #### Gianni LGA1 #### [place] [address] SO2 99 % Normal 94 - 100 [facility] Comment on above: Performed By: #### Gianni LGA1 #### [place] [address] COOX PANEL, ARTERIALon 09-28 CO HGB 1.6 % Abnormal [facility] Comment on above: Result Comment: REF VALUES NONSMOKERS 0.5-1.5% SMOKERS 0.5-10.0% Performed By: #### C OOXA #### [place] [address] DEOXY HGB 1.5 % Normal 0.0 - 5.0 [facility] Comment on above: Performed By: #### C OOXA #### [place] [id number] Hemoglobin (Bld) [Mass/Vol] 15.0 g/dL Normal 13.5 - 17.5 [facility] Comment on above: Performed By: #### C OOXA #### [address] [address] MET HGB 0.6 % Normal 0.0 - 1.5 [facility] Comment on above: Performed By: #### C OOXA #### [address] [address] OXY HGB 96.3 % Normal 94.0 - 98.0 [facility] Comment on above: Performed By: #### C OOXA #### [address] [address] Laboratory - Chemistry and C hemistry - challengeon 09-28-2021 Carboxyhemoglobin (BldA) [Mass fraction] 1.6 % Abnormal [facility] DO Work Phone: Comment on above: REF VALUESNONSMOKERS 0.5-1.5%SMOKERS 0.5-10.0% CO2 (Bld) [Partial pressure] 38 mm[Hg] 38 - 42 [facility] DO Work Phone: HCO3 (Bld) [Moles/Vol] 29.6 mmol/L above high threshold See Below [facility] DO Work Phone: Comment on above: Reference Range: 22. 0 - 26.0 Methemoglobin (BldA) [Mass fraction] 0.6 % 0.0 - 1.5 [facility] DO Work Phone: Oxygen (Bld) [Partial pressure] 93 mm[Hg] 85 - 95 [facility] DO Work Phone: Oxyhemoglobin (BldA) [Mass fraction] 96.3 % See Below [facility] DO Work Phone: Comment on above: Reference Range: 94. 0 - 98.0 pH (Bld) 7.50 [pH] above high threshold See Below [facility] DO Work Phone: Comment on above: Reference Range: 7.3 8 - 7.42 Laboratory - Hematology and Cell countson 09-28-2021 Deoxyhemoglobin (BldA) [Mass fraction] 1.5 % 0.0 - 5.0 [facility] DO Work Phone: Hemoglobin (Bld) [Mass/Vol] 15.0 g/dL See Below [facility] DO Work Phone: Comment on above: Reference Range: 13. 5 - 17.5 No Panel Informationon 09-28 Inhaled oxygen concentration 21 % [facility] DO Work Phone: 6.1 mmol/L above high threshold -2.0 - 3.0 -[facility] DO Work Phone: 99 % 94 - 100 [facility] DO Work Phone: Coronavirus 2019 RNA by PCR, Screening Asymptomticon 09-25-2021 Coronavirus 2019 RNA by PCR, Screening Asymptomtic Not detected Normal See Below [facility] DO Work Phone: Comment on above: SOURCE: Nasal, Nasop haryngealReference Range: Not Detected.This assay is designed to detect the N, ORF1ab and/or S genes of SARS-CoV-2 via nucleic acid amplification. A Negative (NOT DETECTED) result does not preclude 2019-nCoV infection since the adequacy of sample collection and/or low viral burden may result in presence of viral nucleic acids below the clinical sensitivity of this test method. Negative (NOT DETECTED) result should not be used as the sole basis for treatment or other patient management decisions. Rather negative results should be combined with clinical observations, patient history, and epidemiological information to make patient management decisions.Fact sheet for providers: https://www.fda.gov/media/558997/downloadFact sheet for patients: https://www.fda.gov/media/937012/downloadThis test has received FDA Emergency Use Authorization (EUA) and has been verified by [facility] ([facility]). This test is only authorized for the duration of time that circumstances exist to justify the authorization of the emergency use of in vitro diagnostic tests for the detection of SARS-CoV-2 virus and/or diagnosis of COVID-19 infection under section 564(b)(1) of the Act, 21 U.S.C. 360bbb-3(b)(1), unless the authorization is terminated or revoked sooner. [facility] is certified under CLIA-88 as qualified to perform high complexity testing. Testing is performed in the [facility] laboratories located at [address] [place] [address]. Tobacco Screening.on Fall risk assessment b) One or more fall s in the last year [facility] [address] DO Work Phone: Tobacco use status CP b) No [facility] DO Work Phone: Tobacco Screening.on Fall risk assessment a) No falls within the last year [facility] [address] [place] Work Phone: Tobacco use status CPHS b) No [facility] [place] Work Phone: METHYLMALONIC ACIDon 021 METHYLMALONIC ACID 170 nmol/L Normal 0-378 [facility] Comment on above: Result Comment: This test was developed and its performance characteristics determined by [facility]. It has not been cleared or approved by the Food and Drug Administration. Performed By: #### M HERIBERTO #### [facility] [address] [place], [place] [id number] TRIIODOTHYRONINEon 1 TRIIODOTHYRONINE 88 ng/dL Normal 60 - 200 [facility] Comment on above: Performed By: #### T 3 #### [facility] [address] [place] [address] CBC AND DIFFERENTIALon 07-22 Basophils (Bld) [#/Vol] 0.10 10*3/uL Normal 0.00 - 0.10 [facility] Comment on above: Performed By: #### C BCDF #### [address] [address] Basophils/100 WBC (Bld) 0.7 % Normal 0.0 - 2.0 [facility] Comment on above: Performed By: #### C BCDF #### [address] [address] Eosinophils (Bld) [#/Vol] 0.10 10*3/uL Normal 0.00 - 0.40 [facility] Comment on above: Performed By: #### C BCDF #### [address] [address] Eosinophils/100 WBC (Bld) 2.0 % Normal 0.0 - 6.0 [facility] Comment on above: Performed By: #### C BCDF #### [address] [address] Erythrocyte distribution width (RBC) [Ratio] 14.0 % Normal 11.5 - 14.5 [facility] Comment on above: Performed By: #### C BCDF #### [address] [address] Hematocrit (Bld) [Volume fraction] 42.1 % Normal 41.0 - 52.0 [facility] Comment on above: Performed By: #### C BCDF #### [address] [address] Hemoglobin (Bld) [Mass/Vol] 13.8 g/dL Normal 13.5 - 17.5 [facility] Comment on above: Performed By: #### C BCDF #### [address] [address] Lymphocytes (Bld) [#/Vol] 1.60 10*3/uL Normal 0.80 - 3.00 [facility] Comment on above: Performed By: #### C BCDF #### [address] [address] Lymphocytes/100 WBC (Bld) 22.4 % Normal 13.0 - 44.0 [facility] Comment on above: Performed By: #### C BCDF #### [address] [address] MCHC (RBC) [Mass/Vol] 32.7 g/dL Normal 32.0 - 36.0 [facility] Comment on above: Performed By: #### C BCDF #### [address] [address] MCV (RBC) [Entitic vol] 101 fL High 80 - 100 [facility] Comment on above: Performed By: #### C BCDF #### [address] [address] Monocytes (Bld) [#/Vol] 0.60 10*3/uL Normal 0.05 - 0.80 [facility] Comment on above: Performed By: #### C BCDF #### [address] [address] Monocytes/100 WBC (Bld) 7.6 % Normal 2.0 - 10.0 [facility] Comment on above: Performed By: #### C BCDF #### [address] [address] Neutrophils (Bld) [#/Vol] 4.90 10*3/uL Normal 1.60 - 5.50 [facility] Comment on above: Result Comment: Perc ent differential counts (%) should be interpreted in the context of the absolute cell counts (cells/L). Performed By: #### C BCDF #### [address] [address] Neutrophils/100 WBC (Bld) 67.3 % Normal 40.0 - 80.0 [facility] Comment on above: Performed By: #### C BCDF #### [address] [address] NUCLEATED RBC 0.1 /100 WBC Normal [facility] Comment on above: Performed By: #### C BCDF #### [address] [address] Platelets (Bld) [#/Vol] 223 10*3/uL Normal 150 - 450 [facility] [facility] Comment on above: Performed By: #### C BCDF #### [address] [address] RBC 4.16 x10E12/L Low 4.50 - 5.90 [facility] Comment on above: Performed By: #### C BCDF #### [address] [address] WBC (Bld) [#/Vol] 7.2 10*3/uL Normal 4.4 - 11.3 [facility] Comment on above: Performed By: #### C BCDF #### [place] [id number] COMPREHENSIVE PANELon 2020 ALP [Catalytic activity/Vol] 68 U/L Normal 33 - 136 [facility] Comment on above: Performed By: #### C MP #### [address] [address] Albumin [Mass/Vol] 3.8 g/dL Normal 3.4 - 5.0 [facility] Comment on above: Performed By: #### C MP #### [address] [address] ALT [Catalytic activity/Vol] 21 U/L Normal 10 - 52 [facility] Comment on above: Result Comment: Page ents treated with Sulfasalazine may generate falsely decreased results for ALT. Performed By: #### C MP #### [address] [address] Anion gap [Moles/Vol] 10 mmol/L Normal 10 - 20 [facility] Comment on above: Performed By: #### C MP #### [address] [address] AST [Catalytic activity/Vol] 19 U/L Normal 9 - 39 [facility] Comment on above: Performed By: #### C MP #### [address] [address] Bilirubin [Mass/Vol] 0.5 mg/dL Normal 0.0 - 1.2 [facility] Comment on above: Performed By: #### C MP #### [address] [address] Calcium [Mass/Vol] 8.7 mg/dL Normal 8.6 - 10.3 [facility] Comment on above: Performed By: #### C MP #### [address] [address] Chloride [Moles/Vol] 104 mmol/L Normal 98 - 107 [facility] Comment on above: Performed By: #### C MP #### [address] [address] Creatinine [Mass/Vol] 1.74 mg/dL High 0.50 - 1.30 [facility] Comment on above: Performed By: #### C MP #### [address] [address] GFR- AM. 46 mL/min/1.73m2 Abnormal >60 [facility] Comment on above: Result Comment: CALC ULATIONS OF ESTIMATED GFR ARE PERFORMED USING THE MDRD STUDY EQUATION FOR THE IDMS-TRACEABLE CREATININE METHODS. CLIN CHEM 2007;53:766-72 Performed By: #### C MP #### [address] [address] GFR-NON AM. 38 mL/min/1.73m2 Abnormal >60 [facility] Comment on above: Performed By: #### C MP #### [address] [address] Glucose [Mass/Vol] 136 mg/dL High 74 - 99 [facility] Comment on above: Performed By: #### C MP #### [address] [address] HCO3 (Bld) [Moles/Vol] 29 mmol/L Normal 21 - 32 [facility] Comment on above: Performed By: #### C MP #### [address] [address] Potassium [Moles/Vol] 4.3 mmol/L Normal 3.5 - 5.3 [facility] Comment on above: Performed By: #### C MP #### [address] [address] Protein [Mass/Vol] 6.2 g/dL Low 6.4 - 8.2 [facility] Comment on above: Performed By: #### C MP #### [address] [address] Sodium [Moles/Vol] 139 mmol/L Normal 136 - 145 [facility] Comment on above: Performed By: #### C MP #### [address] [address] Urea nitrogen [Mass/Vol] 25 mg/dL High 6 - 23 [facility] Comment on above: Performed By: #### C MP #### [address] [address] Complete Blood Count + Diffamerica dwyer 07-22-2021 Basophils/100 WBC (Bld) 0.7 % 0.0 - 2.0 -[facility] Work Phone: Erythrocyte distribution width (RBC) [Ratio] 14.0 % See Below -[facility] [facility] Work Phone: Comment on above: Reference Range: 11. 5 - 14.5 Hematocrit (Bld) [Volume fraction] 42.1 % See Below -[facility] [facility] Work Phone: Comment on above: Reference Range: 41. 0 - 52.0 Hemoglobin (Bld) [Mass/Vol] 13.8 g/dL See Below -[facility] 204 Work Phone: Comment on above: Reference Range: 13. 5 - 17.5 Lymphocytes/100 WBC (Bld) 22.4 % See Below -[facility] [facility] Work Phone: Comment on above: Reference Range: 13. 0 - 44.0 MCHC (RBC) [Mass/Vol] 32.7 g/dL See Below -[facility] [facility] Work Phone: Comment on above: Reference Range: 32. 0 - 36.0 MCV (RBC) [Entitic vol] 101 fL above high threshold 80 - 100 [facility] [facility] Work Phone: Monocytes/100 WBC (Bld) 7.6 % 2.0 - 10.0 [facility] [facility] Work Phone: Neutrophils/100 WBC (Bld) 67.3 % See Below [facility] [facility] Work Phone: Comment on above: Reference Range: 40. 0 - 80.0 Platelets (Bld) [#/Vol] 223 10*3/uL 150 - 450 [facility] [facility] Work Phone: RBC (Bld) [#/Vol] 4.16 {x10E12/L} below low threshold See Below [facility] [facility] Work Phone: Comment on above: Reference Range: 4.5 0 - 5.90 WBC (Bld) [#/Vol] 7.2 10*3/uL 4.4 - 11.3 [facility] ro[facility] 204 Work Phone: Complete Blood Count + Differential 0.10 {x10E9/L} See Below [facility] [facility] Work Phone: Comment on above: Reference Range: 0.0 0 - 0.10 Reference Range: 0.0 0 - 0.40 Complete Blood Count + Differential 0.60 {x10E9/L} See Below [facility] [facility] Work Phone: Comment on above: Reference Range: 0.0 5 - 0.80 Complete Blood Count + Differential 1.60 {x10E9/L} See Below [facility] [facility] Work Phone: Comment on above: Reference Range: 0.8 0 - 3.00 Complete Blood Count + Differential 4.90 {x10E9/L} See Below [facility] [facility] Work Phone: Comment on above: Reference Range: 1.6 0 - 5.50 Percent differential counts (%) should be interpreted in the context of the absolute cell counts (cells/L). Complete Blood Count + Differential 2.0 % 0.0 - 6.0 [facility] 204 Work Phone: Complete Blood Count + Differential 0.1 {/100_WBC} [facility] Work Phone: FOLATE, SERUMon 07-22-2021 Folate [Mass/Vol] 9.6 ng/mL Normal >5.0 [facility] Comment on above: Result Comment: Low <3.4 Borderline 3.4-5.0 Normal >5.0 . Patients receiving more than 5 mg/day of biotin may have interference in test results. A sample should be taken no sooner than eight hours after previous dose. Contact the testing laboratory for additional information. Performed By: #### F OLA2 #### [address] [address] Folate, Serumon 07-22-2021 Folate [Mass/Vol] 9.6 ng/mL >5.0 [facility] Work Phone: Comment on above: Low <3.4Borderline 3 .4-5.0Normal >5.0. Patients receiving more than 5 mg/day of biotin may have interference in test results. A sample should be taken no sooner than eight hours after previous dose. Contact the testing laboratory for additional information. IRON + TIBCon 07-22-2021 % SATURATION 51 % High 25 - 45 [facility] Comment on above: Performed By: #### I RONT #### [address] [address] Iron [Mass/Vol] 132 ug/dL Normal 35 - 150 [facility] Comment on above: Performed By: #### I RONT #### [address] [address] TIBC 258 ug/dL Normal 240 - 445 [facility] Comment on above: Performed By: #### I RONT #### [address] [place] [address] Laboratory - Chemistry and C hemistry - challengeon 07-22-2021 Albumin BCP dye [Mass/Vol] 3.8 g/dL 3.4 - 5.0 [facility] [facility] Work Phone: ALP [Catalytic activity/Vol] 68 U/L 33 - 136 [facility] Work Phone: ALT With P-5'-P [Catalytic activity/Vol] 21 U/L 10 - 52 [facility] [facility] Work Phone: Comment on above: Patients treated wit h Sulfasalazine may generate falsely decreased results for ALT. Anion gap [Moles/Vol] 10 mmol/L 10 - 20 [facility] [facility] Work Phone: AST With P-5'-P [Catalytic activity/Vol] 19 U/L 9 - 39 [facility] [facility] Work Phone: Bilirubin [Mass/Vol] 0.5 mg/dL 0.0 - 1.2 [facility] 204 Work Phone: Calcium [Mass/Vol] 8.7 mg/dL 8.6 - 10.3 [facility] Work Phone: Chloride [Moles/Vol] 104 mmol/L 98 - 107 [facility] 204 Work Phone: CO2 [Moles/Vol] 29 mmol/L 21 - 32 [facility]urol og [facility] 204 Work Phone: Creatinine [Mass/Vol] 1.74 mg/dL above high threshold See Below [facility] 204 Work Phone: Comment on above: Reference Range: 0.5 0 - 1.30 Glucose [Mass/Vol] 136 mg/dL above high threshold 74 - 99 [facility] [facility] Work Phone: Iron [Mass/Vol] 132 ug/dL 35 - 150 [facility] og [facility] 204 Work Phone: Iron binding capacity [Mass/Vol] 258 ug/dL 240 - 445 [facility] 204 Work Phone: Potassium [Moles/Vol] 4.3 mmol/L 3.5 - 5.3 [facility] [facility] Work Phone: Protein [Mass/Vol] 6.2 g/dL below low threshold 6.4 - 8.2 [facility] [facility] Work Phone: Sodium [Moles/Vol] 139 mmol/L 136 - 145 [facility] [facility] Work Phone: Urea nitrogen [Mass/Vol] 25 mg/dL above high threshold 6 - 23 [facility] [facility] Work Phone: Methylmalonic Acid, Serumon 07-22-2021 Methylmalonate [Moles/Vol] 170 nmol/L 0-378 [facility] [facility] Work Phone: Comment on above: This test was develo ped and its performance characteristicsdetermined by [employer]. It has not been cleared or approvedby the Food and Drug Administration. No Panel Informationon 07-22 46 {mL/min/1.73m2} Abnormal >60 [facility] [facility] Work Phone: Comment on above: CALCULATIONS OF CLEMENTINE MATED GFR ARE PERFORMED USING THE MDRD STUDY EQUATION FOR THE IDMS-TRACEABLE CREATININE METHODS. CLIN CHEM 2007;53:766-72 38 {mL/min/1.73m2} Abnormal >60 [facility] [facility] Work Phone: 51 % above high threshold 25 - 45 [facility] [facility] Work Phone: Triiodothyronine, Level (T3) on 07-22-2021 T3 [Mass/Vol] 88 ng/dL 60 - 200 [facility] [facility] Work Phone: VITAMIN B12on 10-07-2021 Cobalamin (Vitamin B12) [Mass/Vol] 352 pg/mL Normal 211 - 911 [facility] Comment on above: Performed By: #### V TB12 #### [facility] [address] [place] [address] Vitamin B12, Serumon 021 Cobalamin (Vitamin B12) [Mass/Vol] 352 pg/mL 211 - 911 -[facility] [facility] Work Phone: Surgical Pathologyon 160 Surgical Pathology [phone] [facility] PATHOLOGY AND LABORATORY MEDICINE [address] [place] [id number] FINAL SURGICAL PATHOLOGY REPORT [facility] E: TEMO GARRISON .O.B.: 1940 77 [address] M [facility] NO.: [id number]: [id number] PROCEDURE 10/04/2018 DATE:SURGEON: ASIYA CASTRO MD RECEIVED 10/05/2018 DATE:ATTENDING: ASIYA CASTRO MD REPORT DATE: 10/11/2018 COPIES TO: DIAGNO SIS:SKIN, LEFT ANTERIOR SHOULDER, PUNCH (DIF) - NEGATIVE DIRECTIMMUNOFLUORESCENCECom ment: Direct antibody localization demonstrates no evidence ofimmunoreactivity for immunoglobulins IgG, IgM, IgA, complement C3, orfibrinogen on sections of frozen skin.CAROLANN/CAROLANN RIVAS M.D. [facility] INFORMATION: Tense bullae and erosions. Bullous pemphigoid.SPECIMEN: SKIN GROSS DESCRIPTION: Left anterior shoulder Received in polytransport media is a 0.2 cm apparent punch biopsy oftan-marmoljeo skin. Specimen submitted entirely for directimmunofluorescence. (1 ns, 1) MLC1/MCDDisclaimer: The following statement applies to allimmunohistochemistry, in situ hybridization, molecular studies, andimmunofluorescence testing.The use of one or more reagents in the above tests is regulated as ananalyte specific reagent (ASR). These tests were developed and theirperformance characteristics determined by the clinical laboratories [facility]. They have not been cleared by the US Food and DrugAdministration (FDA). The FDA has determined that such clearance orapproval is not necessary.All the above immunostains were performed on paraffin embedded tissue.Appropriate positive and negative controls (where applicable) were runin parallel with the patient's specimen; these controls showed expectedstaining pattern, with acceptable intensity of staining.Immunohistochemica l assays have not been validated on decalcifiedtissues. Results should be interpreted with caution given the raisedpossibility of false negativity on decalcified specimens.Professional Performing Location: [address] [address]. DEPARTMENT OF PATHOLOGY AND LABORATORY MEDICINE [place], [place] [address] Normal [facility] Pain Management Consultation Noteon 11-02-2017 Pain Management Consultation Note Normal [facility] ([place]) Vital Signs Date Time Vital Sign Value Performing Clinician Facility 05-30-2023 12:47-0400 Body height 172.7 cm Marlon Chapin MD Work Phone: [place] 05-30-2023 12:47-0400 Body mass index (BMI) [Ratio] 27.06 kg/m2 Marlon Chapin MD Work Phone: [place] 05-30-2023 12:47-0400 Body temperature 96.91 [degF] Marlon Chapin MD Work Phone: [place] 05-30-2023 12:47-0400 Body weight 80.74 kg Marlon Chapin MD Work Phone: [place] 05-30-2023 12:47-0400 Heart rate 62 /min Marlon Chapin MD Work Phone: [place] 05-30-2023 12:47-0400 SaO2% (BldA) [Mass fraction] 97 % Marlon Chapin MD Work Phone: [place] 05-18-2023 15:22-0400 Body height 172.7 cm Belén Trent PA-C Work Phone: [facility] 05-18-2023 15:22-0400 Body temperature 97.3 [degF] Belén Dolores PA-C Work Phone: [facility] 05-18-2023 15:22-0400 Body weight 81.65 kg Belén Trent PA-C Work Phone: [facility] 05-18-2023 15:22-0400 Diastolic blood pressure 82 mm[Hg] Belén Trent PA-C Work Phone: [facility] 05-18-2023 15:22-0400 Heart rate 104 /min Belén Dolores PA-C Work Phone: [facility] 05-18-2023 15:22-0400 SaO2% (BldA) [Mass fraction] 99 % Belén Dolores PA-C Work Phone: [facility] 05-18-2023 15:22-0400 Systolic blood pressure 136 mm[Hg] Belén Dolores PA-C Work Phone: [facility] 02-27-2023 15:01-0400 Diastolic blood pressure 83 mm[Hg] Monserrat Cross Miedel Work Phone: [facility] A2470 DO Work Phone: 02-27-2023 15:01-0400 Heart rate 84 /min Monserrat Cross Miedel Work Phone: [facility] A2470 DO Work Phone: 02-27-2023 15:01-0400 Respiratory rate 18 /min Monserrat Cross Miedel Work Phone: [facility] A2470 DO Work Phone: 02-27-2023 15:01-0400 Systolic blood pressure 124 mm[Hg] Monserrat Cross Miedel Work Phone: [facility] A2470 DO Work Phone: 11-21-2022 15:02-0500 Body height 173.99 cm Monserrat Cross Miedel Work Phone: [facility] 2300 Work Phone: 11-21-2022 15:02-0500 Body mass index (BMI) [Ratio] 25.92 kg/m2 Monserrat Cross Miedel Work Phone: [facility] 2300 Work Phone: 11-21-2022 15:02-0500 Body surface area Derived from formula 1.93 m2 Monserrat Cross Miedel Work Phone: [facility] 2300 Work Phone: 11-21-2022 15:02-0500 Body weight 78.47 kg Monserrat America Miedel Work Phone: [facility] 2300 Work Phone: 11-21-2022 15:02-0500 Diastolic blood pressure 69 mm[Hg] Monserrat Cross Miedel Work Phone: [facility] 2300 Work Phone: 11-21-2022 15:02-0500 Heart rate 92 /min Monserrat Cross Miedel Work Phone: [facility] 2300 Work Phone: 11-21-2022 15:02-0500 Respiratory rate 18 /min Monserrat Cross Miedel Work Phone: [facility] 2300 Work Phone: 11-21-2022 15:02-0500 SaO2% (BldA) [Mass fraction] 98 % Monserrat Cross Miedel Work Phone: [facility] 2300 Work Phone: 11-21-2022 15:02-0500 Systolic blood pressure 119 mm[Hg] Monserrat Cross Miedel Work Phone: [facility] 2300 Work Phone: 12-16-2021 16:12-0500 Body mass index (BMI) [Ratio] 27.91 kg/m2 Monserrat Cross Miedel Work Phone: [facility] A2470 DO Work Phone: 12-16-2021 16:12-0500 Body surface area Derived from formula 2.02 m2 Monserrat Cross Miedel Work Phone: [facility] A2470 DO Work Phone: 12-16-2021 16:12-0500 Body weight 85.73 kg Monserrat Cross Miedel Work Phone: [facility] A2470 DO Work Phone: 12-16-2021 16:12-0500 Diastolic blood pressure 93 mm[Hg] Monserrat Cross Miedel Work Phone: [facility] A2470 DO Work Phone: 12-16-2021 16:12-0500 Heart rate 83 /min Monserrat Cross Miedel Work Phone: [facility] A2470 DO Work Phone: 12-16-2021 16:12-0500 SaO2% (BldA) [Mass fraction] 98 % Monserrat Cross Miedel Work Phone: [facility] A2470 DO Work Phone: 12-16-2021 16:12-0500 Systolic blood pressure 132 mm[Hg] Monserrat Cross Miedel Work Phone: [facility] A2470 DO Work Phone: 12-16-2021 16:12-0500 0 1 Monserrat Domingoedel Work Phone: [facility] A2470 DO Work Phone: Comment on above: [employer] 10-14-2021 09:08-0500 Body height 175.26 cm Monserrat Domingoedel Work Phone: [facility] 400 DO Work Phone: 10-14-2021 09:08-0500 Body mass index (BMI) [Ratio] 27.26 kg/m2 Monserrat America Chayoedel Work Phone: [facility] 400 DO Work Phone: 10-14-2021 09:08-0500 Body surface area Derived from formula 2 m2 Monserrat Domingoedel Work Phone: [facility] 400 DO Work Phone: 10-14-2021 09:08-0500 Body temperature 98.6 [degF] Monserrat Cross Miedel Work Phone: [facility] 400 DO Work Phone: 10-14-2021 09:08-0500 Body weight 83.73 kg Monserrat Cross Miedel Work Phone: [facility] 400 DO Work Phone: 10-14-2021 09:08-0500 Diastolic blood pressure 66 mm[Hg] Monserrat Cross Miedel Work Phone: [facility] 400 DO Work Phone: 10-14-2021 09:08-0500 Heart rate 88 /min Monserrat Domingoedel Work Phone: [facility] 400 DO Work Phone: 10-14-2021 09:08-0500 SaO2% (BldA) [Mass fraction] 98 % Monserrat Domingoedel Work Phone: [facility] 400 DO Work Phone: 10-14-2021 09:08-0500 Systolic blood pressure 132 mm[Hg] Monserrat Cross Miedel Work Phone: [facility] 400 DO Work Phone: 09-15-2021 09:07-0500 Body height 175.26 cm Monserrat Cross Miedel Work Phone: [facility] 400 DO Work Phone: 09-15-2021 09:07-0500 Body mass index (BMI) [Ratio] 27.5 kg/m2 Monserrat Cross Miedel Work Phone: [facility] 400 DO Work Phone: 09-15-2021 09:07-0500 Body surface area Derived from formula 2 m2 Monserrat Wilson Work Phone: [facility] 400 DO Work Phone: 09-15-2021 09:07-0500 Body temperature 97.7 [degF] Monserrat Domingoedyaw Work Phone: [facility] 400 DO Work Phone: 09-15-2021 09:07-0500 Body weight 84.48 kg Monserrat Wilson Work Phone: [place] [address] DO Work Phone: 09-15-2021 09:07-0500 Diastolic blood pressure 76 mm[Hg] Monserrat Domingoedyaw Work Phone: [place] [address] DO Work Phone: 09-15-2021 09:07-0500 Heart rate 68 /min Monserrat Wilson Work Phone: [place] [address] DO Work Phone: 09-15-2021 09:07-0500 SaO2% (BldA) [Mass fraction] 83 % Monserrat Wilson Work Phone: [place] [address] DO Work Phone: 09-15-2021 09:07-0500 Systolic blood pressure 134 mm[Hg] Monserrat Wilson Work Phone: [place] [address] DO Work Phone: 09-02-2021 10:50-0500 Body height 175.26 cm Monserrat Wilson Work Phone: [facility] 205 [place] Work Phone: 09-02-2021 10:50-0500 Body mass index (BMI) [Ratio] 27.58 kg/m2 Monserrat Domingoedyaw Work Phone: -Otolaryngology -[place] 205 [place] Work Phone: 09-02-2021 10:50-0500 Body surface area Derived from formula 2.01 m2 Monserrat Wilson Work Phone: -Otolaryngology -[place] 205 [place] Work Phone: 09-02-2021 10:50-0500 Body temperature 97.5 [degF] Monserrat Wilson Work Phone: -Otolaryngology -[place] [facility] [place] Work Phone: 09-02-2021 10:50-0500 Body weight 84.7 kg Monserrat Wilson Work Phone: -Otolaryngology -[place] [facility] [place] Work Phone: 09-02-2021 10:50-0500 Heart rate 83 /min Monserrat Wilson Work Phone: -Otolaryngology -[place] [facility] [place] Work Phone: 09-02-2021 10:50-0500 SaO2% (BldA) [Mass fraction] 96 % Monserrat Wilson Work Phone: -Otolaryngology -[place] [facility] [place] Work Phone: Encounters Encounter Date Encounter Type Care Provider Facility Start: 10-04-2023 End: 10-04-2023 ambulatory MALICK AL Facility:[facility] Start: 10-04-2023 End: 10-04-2023 Subsequent hospital visit by physician Xr [facility] Work Phone: Radiology Comment on above: Acute cough [R05.1] Start: 09-13-2023 Refill Chidi schaffer MD Work Phone: General Surgery Comment on above: Refill Request Start: 06-08-2023 End: 06-08-2023 ambulatory CHIDI BURTON Facility:[facility] Start: 06-08-2023 End: 06-08-2023 Patient encounter procedure Chidi Burton MD Work Phone: General Surgery Comment on above: Bright red blood per rectum (Primary Dx); Hemorrhoids, internal Start: 05-30-2023 ambulatory MARLON Danielson ty:[facility] Start: 05-30-2023 End: 05-30-2023 Office outpatient new 30 minutes Marlon Chapin MD Work Phone: [facility] Comment on above: Other chronic pain Start: 05-18-2023 End: 05-18-2023 ambulatory MONSERRAT WILSON Facility:[facility] Start: 05-18-2023 End: 05-18-2023 Patient encounter procedure Belén Reyes PA-C Work Phone: General Surgery Comment on above: Bright red blood per rectum (Primary Dx); Hemorrhoids, internal Start: 04-11-2023 ambulatory MARLON CHAPIN Facility :[facility] Start: 02-27-2023 Current tobacco non-user cad cap copd pv dm Monserrat Wilson [facility] Work Phone: Start: 02-27-[address] Monserrat Wilson Facility:[id number] Start: 02-17-2023 Refill Roberto Younger i, MD Work Phone: Gastroenterology Comment on above: Refill Request Start: 02-15-2023 Telephone encounter [facility] Provider [facility] Comment on above: Appointment Start: 11-21-2022 Current tobacco non-user cad cap copd pv dm Monserrat Wilson Work Phone: [facility] 2307 Work Phone: Start: 11-21-2022 ambulatory Justin Dial Facilit y:[id number] Start: 11-01-2022 Rx Renewal Monserrat Cruz l Work Phone: [id number]-[id number] 204 Work Phone: Start: 10-17-2022 ambulatory Nardine Zakhary Facilit y:[facility] Start: 08-26-2022 Telephone encounter Carol Tranjaciel BANKS.HAKAN Work Phone: Gastroenterology Comment on above: Patient Update; Page ent Question Start: 08-03-2022 Refill Carol Tran APR N.[employer]ER EQUIPMENT Work Phone: Gastroenterology Comment on above: Refill Request Start: 06-03-2022 End: 06-03-2022 Subsequent hospital visit by physician Xr [facility] [place] Work Phone: Radiology Comment on above: Lower extremity inju ry, right, initial encounter [S89.91XA] Start: 05-14-2022 ambulatory Wilner Stuart Work Phone: Hematology/Oncology Comment on above: Eliquis Start: 05-12-2022 ambulatory Nardine Zakhary Facilit y:[facility] Sleep 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 Work Phone: Gastroenterology Comment on above: History of Small's esophagus (Primary Dx) Start: 01-05-2022 End: 01-05-2022 Telemedicine consultation with patient Carol Tran APRN.HAKAN [facility]: [facility] Start: 12-16-2021 Current tobacco non-user cad cap copd pv dm Monserrat Wilson Work Phone: [facility] A2470 DO Work Phone: Start: 11-19-2021 Telephone encounter Chidi Burton MD Work Phone: General Surgery Comment on above: EGD; Procedure Follo w Up (EGD completed on 12/13/2021) Start: 10-14-2021 Office outpatient visit 15 minutes Monserrat Wilson Work Phone: [facility] 400 DO Work Phone: Start: 10-01-2021 Chart Update Monserrat Cross Miede l Work Phone: [facility] 400 DO Work Phone: Start: 09-15-2021 Office consultation new/estab patient 80 min Monserrat E Miedel Work Phone: [facility] 400 DO Work Phone: Start: 09-15-2021 Office outpatient ne w 60 minutes Monserrat Cross Miedel Work Phone: [facility] 400 DO Work Phone: Start: 09-15-2021 Patient encounter procedure Monserrat America Domingoedel Work Phone: [facility] 400 DO Work Phone: Start: 09-02-2021 Current tobacco non-user cad cap copd pv dm Monserrat E Miedel Work Phone: [id number] 205 [place] Work Phone: Start: 08-30-2021 AUDIT Monserrat E Miede l Work Phone: [id number] 204 Work Phone: Start: 08-27-2021 AUDIT Monserrat E Miede l Work Phone: WM-Onkbdxlqf-Yzqkr 204 Work Phone: Start: 07-28-2021 Chart Update Monserrat E Miede l Work Phone: WU-Ioatpplqr-Vliwg 204 Work Phone: Start: 07-23-2021 Chart Update Monserrat E Miede l Work Phone: HM-Migdpqnok-Ctegg 204 Work Phone: Start: 07-16-2021 Phys/qhp telephone evaluation 11-20 min Monserrat Tysonyaw Work Phone: NU-Gafaovodp-Babjp 204 Work Phone: Start: 06-11-2021 AUDIT Monserrat Tysone l Work Phone: IH-Lgnhamsrp-Wkqao 204 Work Phone: Start: 03-08-2021 AUDIT Monserrat Domingoede l Work Phone: [facility] 204 Work Phone: Start: 12-07-2020 End: 12-07-2020 Patient encounter procedure [facility] Start: 11-12-2020 End: 11-12-2020 Patient encounter procedure [facility] Start: 10-04-2018 Patient encounter procedure [facility] Start: 12-19-2017 Ambulatory [facility] Facility :[facility] Start: 10-30-2017 Ambulatory RHINA WALTER [facility] ility:A Procedures Date Procedure Procedure Detail Performing Clinician Start: 10-04-2023 Radiologic exam ches t 2 views Teresa GARCÍA Work Phone: Start: 06-03-2022 Radiologic examinati on tibia & fibula 2 views Joe Goodwin APRN.CNP Work Phone: Start: 10-13-2020 Sleep std airflow hr t rate&o2 sat effort unatt Monserrat Wilson Start: 07-03-2018 Adult depression scr eening assessment Chidi Burton MD Work Phone: Arthroplasty of knee Monserrat Domingoedyaw Colonoscopy Monserrat Miedel Excision of lesion of skin H derik [place] Hernia repair Monserrat Domingoedel Hypoglossal nerve stimulator insertion Monserrat Wilson Work Phone: Insertion of therape utic device Monserrat Domingoedel Repair of anterior cruciate ligament of knee joint Monserrat Wilson Plan of Treatment Date Care Activity Detail Author Start: 08-18-2029 Tetanus vaccination TETANUS [facility] Start: 08-18-2029 Urine microalbumin profile DTaP,Tdap,Td Vaccine (4 - Td or Tdap) [facility] Start: 06-16-2024 Covid-19 Vaccine ( season) Covid-19 Vaccine () [facility] Start: 06-16-2024 Covid-19 Vaccine () Covid-19 Vaccine () [facility] Start: 06-16-2024 Influenza vaccination Influenz a Vaccine (#1) [facility] Start: 10-16-2023 Advance Directive Discussion Advance Directive Discussion [facility] Start: 06-16-2023 Covid-19 Vaccine () Covid-19 Vaccine () [facility] Start: 06-16-2023 Influenza vaccination C [facility] Start: 11-13-2022 COVID-19 VACCINE (6 - Pfizer series) COVID-19 VACCINE (6 - Pfizer series) [facility] Start: 10-16-2022 ADVANCE DIRECTIVE DISCUSSION ADVANCE DIRECTIVE DISCUSSION [facility] Start: 10-16-2022 DEPRESSION ASSESSMENT DEPRESSION ASS ESSMENT [facility] Start: 06-16-2022 Influenza vaccination INFLUENZA (#1) [facility] Start: 11-14-2021 COVID-19 VACCINE (4 - Booster for Pfizer series) COVID-19 VACCINE (4 - Booster for Pfizer series) [facility] Start: 11-01-2021 NPVSLEEP, Provider: Justin Dial, Status: Pen, Time: 4:00 PM NPVSLEEP, Provider: Justin Dial, Status: Pen, Time: 4:00 PM YF-Yurviziabpaysg-Smk ma MAC1 205 [place] Work Phone: Start: 11-01-2021 FUVGENERAL, Provider : Malick Weber, Status: Pen, Time: 9:00 AM DIVINA, Provider: Malick Weber, Status: Pen, Time: 9:00 AM -Pulmonary Medicine[place]phanie [place] [address] DO Work Phone: Start: 10-16-2021 ADVANCE DIRECTIVE DISCUSSION ADVANCE DIRECTIVE DISCUSSION [facility] Start: 10-16-2021 DEPRESSION ASSESSMENT DEPRESSION ASS ESSMENT [facility] Start: 10-14-2021 FUV, Provider: Temo Huitron, Status: Pen, Time: 9:00 AM FUV, Provider: Temo Huitron, Status: Pen, Time: 9:00 AM RUSTPulmonary [facility] 400 DO Work Phone: Start: 09-28-2021 PFT, Provider: [facility] PFT ROOM,[id number], Status: Pen, Time: 10:00 AM PFT, Provider: [facility] PFT ROOM,[id number], Status: Pen, Time: 10:00 AM [facility] 400 DO Work Phone: Start: 09-15-2021 NPV, Provider: Temo Huitron, Status: Pen, Time: 9:00 AM NPV, Provider: Temo Huitron, Status: Pen, Time: 9:00 AM [facility] Work Phone: Start: 09-02-2021 NPV, Provider: Florina Segovia, Status: Pen, Time: 10:40 AM NPV, Provider: Florina Segovia, Status: Pen, Time: 10:40 AM [facility] 204 Work Phone: Start: 08-05-2021 NPV, Provider: Florina Segovia, Status: Pen, Time: 10:20 AM NPV, Provider: Florina Segovia, Status: Pen, Time: 10:20 AM [facility] Work Phone: Start: 06-16-2021 Influenza vaccination INFLUENZA (#1) [facility] Start: 06-01-2021 SERUM CREATININE SERUM CREATININE Cl [facility] Start: 11-27-2020 Urine microalbumin profile DTAP,TDAP,TD (3 - Td or Tdap) [facility] Start: 10-13-2020 Sleep std airflow hr t rate&o2 sat effort unatt Home Sleep Apnea Test KJ-Awkkyvdnm-Dhues 204 Work Phone: Start: 04-28-2020 Hemoglobin A1c measurement HbA1C [facility] Start: 04-28-2020 Hemoglobin A1c/Hemoglobin.total in Blood HBA1C [facility] Start: 02-28-2020 Glaucoma screening Dilated Retinal E xam [facility] Start: 02-28-2020 Hepatitis C antibody , confirmatory test DILATED RETINAL EXAM [facility] Start: 07-03-2019 Adult depression screening assessment DEPRESSION SCREENING [facility] Start: 01-25-2019 ANNUAL PCP TEAM CHRONIC DISEASE VISIT ANNUAL PCP TEAM CHRONIC DISEASE VISIT [facility] Start: 12-07-2018 Hepatitis B screening URINE ALBUMIN:CREATININE RATIO [facility] Start: 09-22-2018 Hepatitis B surface antibody level LDL CHOLESTEROL [facility] Start: 06-01-2018 HEMOGLOBIN/HEMATOCRIT HEMOGLOBIN/HEM ATOCRIT [facility] Start: 08-24-2017 End: 08-24-2017 Appointment Appointment [facility] Work Phone: Start: 2016 RSV Vaccine (1 - 1-dose 75+ series) RSV Vaccine (1 - 1-dose 75+ series) [facility] Start: 2001 Hepatitis B Vaccine (1 of 3 - Risk 3-dose series) Hepatitis B Vaccine (1 of 3 - Risk 3-dose series) [facility] Start: 2001 RSV Vaccine (1 - 1-dose 60+ series) RSV Vaccine (1 - 1-dose 60+ series) [facility] Start: 1991 SHINGRIX VACCINE (1 of 2) SHINGRIX VACCINE (1 of 2) [facility] Start: 1986 Screening for malignant neoplasm of colon COLORECTAL CANCER SCREENING DISCUSSION [place] Start: 1959 Anxiety Screening Anxiety Screening [facility] Start: 1959 BP CONTROLLED (<130/80) BP CONTROLLED (<130/80) [facility] Start: 1959 Depression Screening Depression Scre ening [facility] Start: 1951 3 comp foot exam completed DIABETIC FOOT EXAM [facility] Start: 1951 Diabetic foot examination Diabetic Foot Exam [facility] Start: 06-08-1942 COVID-19 VACCINE (#1) COVID-19 VACCI NE (#1) [facility] [place] [facility] NEGATED: Highlighted row has been ruled out! Planned Goals not documented AH-Ndlkhkcjq-Dxtxm 204 Work Phone: Immunizations Immunization Date Immunization Notes Care Provider Beto stubbs 09-29-2022 Pfizer COVID-19 Vac Bivalent 30 MCG/0.3ML Intramuscular Suspension Monserrat E Miedel Work Phone: [facility] 2300 Work Phone: 07-05-2022 Fluad Quadrivalent 0 .5 ML Intramuscular Prefilled Syringe Monserrat E Miedel Work Phone: [facility] 2300 Work Phone: 07-05-2022 influenza virus vacc ine, unspecified formulation Marlon Chapin MD Work Phone: [place] 03-07-2022 Comirnaty 30 MCG/0.3 ML Intramuscular Suspension Monserrat E Miedel Work Phone: SX-Myvxhkdgp-Tetym 204 Work Phone: 08-17-2021 zoster vaccine recombinant Monserrat E Miedel Work Phone: [facility] A2470 DO Work Phone: 07-15-2021 Pfizer-BioNTech COVI D-19 Vacc 30 MCG/0.3ML Intramuscular Suspension Monserrat E Miedel Work Phone: RUSTPulmonary Medicine[place]phanie [place] [address] DO Work Phone: Comment on above: Series: 04-24-2021 zoster vaccine recombinant Monserrat E Miedel Work Phone: MG-Pulm [facility] A2470 DO Work Phone: 12-07-2020 Pfizer-BioNTech COVI D-19 Vacc 30 MCG/0.3ML Intramuscular Suspension Monserrat E Miedel Work Phone: [facility] 400 DO Work Phone: Comment on above: Series: 11-12-2020 Pfizer-BioNTech COVI D-19 Vacc 30 MCG/0.3ML Intramuscular Suspension Monserrat E Miedel Work Phone: MP-Pulmonary MedicineMor[facility] 400 DO Work Phone: Comment on above: Series: 07-16-2020 Fluad Quadrivalent 0 .5 ML Intramuscular Prefilled Syringe Monserrat Domingoedel Work Phone: MG-Pulm [facility] A2470 DO Work Phone: 08-19-2019 influenza, high dose seasonal, preservative-free Monserrat E Miedel Work Phone: [facility] A[facility]20 DO Work Phone: 08-18-2019 tetanus toxoid, redu christian diphtheria toxoid, and acellular pertussis vaccine, adsorbed Monserrat America Miedel Work Phone: [facility] A2710 DO Work Phone: 07-25-2016 influenza, high dose seasonal, preservative-free Monserrat E Miedel Work Phone: [facility] 08-06-2015 influenza, seasonal, injectable Monserrat E Miedel Work Phone: [facility] 11-14-2014 pneumococcal conjuga te vaccine, 13 valent Monserrat E Miedel Work Phone: [facility] 08-01-2013 influenza virus vacc ine, unspecified formulation Chidi Burton MD Work Phone: [facility] 07-19-2012 influenza virus vacc ine, unspecified formulation Chidi Burton MD Work Phone: [facility] 08-18-2011 influenza virus vacc ine, unspecified formulation Chidi Burton MD Work Phone: [facility] 11-27-2010 tetanus toxoid, redu christian diphtheria toxoid, and acellular pertussis vaccine, adsorbed Chidi Burton MD Work Phone: [facility] 08-19-2008 influenza virus vacc ine, unspecified formulation Chidi Burton MD Work Phone: [facility] Work Phone: 08-19-2008 pneumococcal polysaccharide vaccine, 23 valent Chidi Burton MD Work Phone: [facility] Work Phone: 08-20-2007 influenza virus vacc ine, whole virus Monserratlizz Wilson Work Phone: [facility] A2470 DO Work Phone: 08-14-2007 influenza virus vacc ine, unspecified formulation Chidi Burton MD Work Phone: [facility] Work Phone: 09-01-2006 influenza virus vacc ine, unspecified formulation Chidi Burton MD Work Phone: [facility] Work Phone: 08-18-2005 influenza virus vacc ine, unspecified formulation Chidi Burton MD Work Phone: [facility] 09-28-2004 influenza virus vacc ine, unspecified formulation Chidi Burton MD Work Phone: [facility] Work Phone: 09-15-2003 diphtheria and tetan us toxoids, adsorbed for pediatric use Chidi Burton MD Work Phone: [facility] Work Phone: 07-16-1999 pneumococcal polysaccharide vaccine, 23 valent Chidi Burton MD Work Phone: [facility] Work Phone: influenza virus vacc ine, unspecified formulation Monserrat Wilson Work Phone: [facility] 400 DO Work Phone: Comment on above: Approx 16Jul2021 Ser ies: Payers Date Payer Category Payer Medicare AETNA MEDICARE A ETNA MEDICARE PPO [id number] 2021-Present [phone] [address] [place] [address] PPO [id number] 2021 Medicare AETNA MEDICARE A ETNA MEDICARE PPO [id number] 2021-Present [phone] [address] [place] [address] PPO [id number] 2017 Private Health Insurance 2013 Medicare [id number] 2013 Private Health Insurance 101 [id number] 1941 Unknown [id number] 1941 Unknown [id number] 1941 Unknown [id number] 1941 Unknown [id number] 56 1941 Unknown [id number] 56 1941 Unknown [id number] 56 1941 Unknown [id number] 56 1941 Unknown [id number] 56 1941 Unknown [id number] 1941 Unknown [id number] 94 Medicare [id number] Unknown Social History Date Type Detail Facility Start: 08-10-2020 End: 09-20-2020 Never a smoker Never a smoker [facility] Comment on above: quit 1975; Start: 06-03-2022 Tobacco smoking status NHIS Ex-smoker [facility] Start: 10-16-1955 End: 10-16-1975 History of tobacco use Current smoker [facility] Start: 10-16-1955 End: 10-16-1975 History of tobacco use Cigarette Smoker [facility] Start: 08-10-2020 End: 06-03-2022 Alcohol intake Current drinker of alcohol (finding) [facility] Start: 08-06-2020 History SDOH Alcohol Comment 2-3 drinks per day [facility] Start: 06-01-2020 End: 06-03-2022 Tobacco Comment QUIT 1975 [facility] Start: 1940 Sex Assigned At Not on file [facility] Start: 11-13-2021 End: 06-03-2022 Exposure to SARS-CoV-2 (event) Not sure [facility] Start: 04-01-2020 End: 06-03-2022 Tobacco use and exposure Smokeless tobacco non-user [facility] Start: 09-20-2020 End: 05-18-2023 Tobacco use panel [facility] Adult Depression Screening Assessment 0 [facility] Start: 05-06-2019 Gender identity Identifies as male gender (finding) [facility] Start: 04-01-2020 Tobacco smoking status UTIS Occasional tobacco smoker [place] History of tobacco use Cigar Smoker [place] How often to you hav e a drink containing alcohol? 4 or more times a week [place] Start: 04-01-2020 Tobacco Comment occas [facility] Start: 04-01-2020 Alcohol Comment states everyday . [place] NEGATED: Highlighted row - - GH-Vzxdiscju-Somqc 204 Work Phone: Medical Equipment Procedure Code Equipment Code Equipment Origin al Text Equipment Identifier Dates Generator Implantable Pulse - [id number] Start: 12-02-2016 Lead Upper Air[place] y Stimulation - [id number] Start: 12-02-2016 Lead Respiratory Sensing - [id number] Start: 12-02-2016 [id number] Start: 11-23-2018 Comment on above: USE ONE STRIP TO NAIN CK GLUCOSE ONCE DAILY Use as directed to t est glucose 3 times weekly. DX: E11.9 Functional Status Date Assessment Result Facility NEGATED: Highlighted row Functional performance Functional status health issues are not documented Disease VH-Vycvaignu-Xoevx 204 Work Phone: Mental Status Date Assessment Result Facility NEGATED: Highlighted row Cognitive function [Interpretation] Cognitive status health issues are not documented Disease OF-Ngjomnnls-Vjfed 204 Work Phone: Clinical Notes 12-17-2014 to 10-04-2023 Telephone Encounter - Dayanara Mandujano RN - 09/13/2023 10:15 AM Chidi Salazar MD - 06/08/2023 12:21 PM EDTPatient Urszula Baires LPN - 06/08/2023 12:09 PM EDT Note Date & Type Note Facility 10-04-2023 Note HNO ID: [id number] Author: Clair Asher RT(R) Service: ? Author Type: Sliding Joint Maker Type: Progress Notes Filed: 10/04/2023 2:22 PM [...] RT Crystal(R) October 04, 2023 2:15 PM [facility] 10-04-2023 Note HNO ID: [id number] Author: Teresa Rudd PA Service: ? Author Type: Physician Shake Sawyer Type: Progress Notes Filed: 10/04/2023 3:04 PM [...] Dr. Berry Chronic kidney disease, stage 3 ([facility]) Seeing Dr. Moss DDD (degenerative disc disease), cervical DDD (degenerative disc disease), lumbar Seeing Dr. Thayer Diarrhea Diverticulosis of colon (without mention of hemorrhage) DVT (deep venous thrombosis) ([facility]) 08/06/2020 Essential tremor External hemorrhoids without mention [...] complication, without long-term current use of insulin ([facility]) 06/07/[address] 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 lancets ([employer] LANCETS) 30 gauge misc Use as directed to test glucose 3 times weekly. DX: E11.9 dupilumab (DUPIXENT SUBCUTANEOUS) Inject subcutaneously as needed (taking every three weeks). 08/17/2021 reported taking every 3 weeks cyanocobalamin, vitamin B-12, (VITAMIN B-12 INJECTION) by INJECTION(UNSPECIFIED PARENTERAL ROUTES) route once every month. blood sugar diagnostic ([employer]) test strip USE ONE STRIP TO CHECK GLUCOSE ONCE DAILY losartan (COZAAR) 25 mg tablet TAKE 1 TABLET DAILY ketoconazole (NIZORAL) 2 % shampoo Apply 1 application to affected area once daily as needed. atorvastatin (LIPITOR) 20 mg tablet Take 1 tablet by mouth once daily. Blood-Glucose Meter ([employer] VERIO SYSTEM) misc Use as directed. Cholecalciferol, Vitamin D3, 2,000 unit ORAL Cap Take 2,000 Units by mouth. ascorbic acid(VITAMIN C 500 MG TAB) Take one (1) tablet twice daily. FAMILY HISTORY Problem Relation Age of Onset Diabetes Father other (down'ssyndrome) Brother Hypertension Mother other (Other) Mother Acute Renal Failure/AAA other (Aortic aneurysm) Mother Ischemic Heart Disease Brother 58 OR Alcohol/Drug Brother Breast Cancer Sister Diabetes Maternal Grandmother Rheumatologic disease Maternal Grandfather Anesthesia Problems No Family History Social History Tobacco Use Smoking status: Former Packs/day: 0.50 Years: 20.00 Additional pack years: 0.00 Total pack years: 10.00 Types: Cigarettes Quit date: 10/16/1975 Years since quittin.0 Smokeless tobacco: Never Tobacco comments: QUIT 1975 Vapi (more content not included)... [facility] 09-13-2023 Miscellaneous Notes Physician: Dr. Burton Call from patient requesting refill. Please E-Scribe 30-day supply. Last OV: 06/08/[address] Burton Future OV: None Scheduled Requested Prescriptions Pending Prescriptions Disp Refills omeprazole (PRILOSEC) 40 mg capsule 30 capsule 0 Sig: Take 1 capsule by mouth once daily. Pharmacy Name: [facility] Phone #: Dayanara Mandujano RN documented in this encounter [facility] 06-08-2023 Note HNO ID: [id number] Author: Chidi Burton MD Service: ? Author Type: Physician Type: Progress Notes Filed: 06/08/2023 12:24 PM Note Text: FOLLOW UP VISIT - HEMORRHOID BANDING NAME: Temo Rajput [facility] NO.: [id number] DATE OF SERVICE: 06/08/2023 : 1940 REFERRING PHYSICIAN: Malick Al MD, MD Temo is a patient I am following [...] me in 1 month if persistent bleeding. Chidi Burton MD [facility] 06-08-2023 History of Present illness Narrative FOLLOW UP VISIT - HEMORRHOID BANDING NAME: Temo Rajput [facility] NO.: [id number] DATE OF SERVICE: 06/08/2023 : 1940 REFERRING PHYSICIAN: Malick Al MD, Temo is a patient I am [...] me in 1 month if persistent bleeding. Chidi Butron MD documented in this encounter [facility] 06-08-2023 Instructions Urszula Quinn LPN - 06/08/2023 [...] feel free to call our office at [phone] and ask to be transferred to General Surgery. Thank you for choosing [facility] - General Surgery. 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 [...] coordination of care. documented in this encounter [place] 05-30-2023 Instructions Marlon Chapin MD - 05/30/2023 1:00 PM EDT The device we talked about is called a Theracane. documented in this encounter [place] 05-18-2023 Note HNO ID: [id number] Author: Belén Reyes PA-C Service: ? Author Type: Physician Shake Sawyer Type: Progress Notes Filed: 05/29/2023 7:56 AM [...] prior endoscopy. Last colonoscopy 08/10/[address] Burton without concerning findings at that time. Patient's medical history is significant for hypertension, hyperlipidemia, type II diabetes mellitus, DVT, hypothyroidism. Patient follows with Dr. Al in primary care for his chronic medical issues. PAST MEDICAL HISTORY Diagnosis Date BPH (benign prostatic hyperplasia) previously seeing Dr. Berry Chronic kidney disease, stage 3 ([facility]) Seeing Dr. Moss DDD (degenerative disc disease), cervical DDD (degenerative disc disease), lumbar Seeing Dr. Thayer Diarrhea Diverticulosis of colon (without mention of hemorrhage) DVT (deep venous thrombosis) ([facility]) 08/06/2020 Essential tremor External hemorrhoids without mention [...] complication, without long-term current use of insulin ([facility]) 06/07/[address] 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 lancets ([employer]ICA LANCETS) 30 gauge [facility] Use as directed to test glucose 3 times weekly. DX: E11.9 dupilumab (DUPIXENT SUBCUTANEOUS) Inject subcutaneously as needed (taking every three weeks). 08/17/2021 reported taking every 3 weeks cyanocobalamin, vitamin B-12, (VITAMIN B-12 INJECTION) by INJECTION(UNSPECIFIED PARENTERAL ROUTES) route once every month. blood sugar diagnostic ([employer]) test strip USE ONE STRIP TO CHECK GLUCOSE ONCE DAILY losartan (COZAAR) 25 mg tablet TAKE 1 TABLET DAILY ketoconazole (NIZORAL) 2 % shampoo Apply 1 application to affected area once daily as needed. atorvastatin (LIPITOR) 20 mg tablet Take 1 tablet by mouth once daily. Blood-Glucose Meter ([employer] VERIO SYSTEM) [facility] Use as directed. Cholecalciferol, Vitamin D3, 2,000 unit ORAL Cap Take 2,000 Units by mouth. ascorbic acid(VITAMIN C 500 MG TAB) Take one (1) tablet twice daily. No current facility-administered medications for this visit. ALLERGIES: Flomax [Tamsulosin], Celecoxib, Meloxicam, Mirapex [Pramipexole], Uroxatral [Alfuzosin H (more content not included)... [facility] 05-18-2023 Nurse Note REVIEW OF SYSTEMS: General: [...] Jena Webb RN documented in this encounter [facility] 05-18-2023 History of Present illness Narrative HISTORY AND PHYSICAL Temo Rajput Tarik 1940 REFERRING PHYSICIAN: Monserrat Wilson MD CHIEF [...] prior endoscopy. Last colonoscopy 08/10/[address] Burton without concerning findings at that time. Patient's medical history is significant for hypertension, hyperlipidemia, type II diabetes mellitus, DVT, hypothyroidism. Patient follows with Dr. Al in primary care for his chronic medical issues. PAST MEDICAL HISTORY Diagnosis Date BPH (benign prostatic hyperplasia) previously seeing Dr. Berry Chronic kidney disease, stage 3 ([facility]) Seeing Dr. Moss DDD (degenerative disc disease), cervical DDD (degenerative disc disease), lumbar Seeing Dr. Thayer Diarrhea Diverticulosis of colon (without mention of hemorrhage) DVT (deep venous thrombosis) ([facility]) 08/06/2020 Essential tremor External hemorrhoids without mention [...] complication, without long-term current use of insulin ([facility]) 06/07/[address] 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 lancets ([employer] LANCETS) 30 gauge misc Use as directed to test glucose 3 times weekly. DX: E11.9 dupilumab (DUPIXENT SUBCUTANEOUS) Inject subcutaneously as needed (taking every three weeks). 08/17/2021 reported taking every 3 weeks cyanocobalamin, vitamin B-12, (VITAMIN B-12 INJECTION) by INJECTION(UNSPECIFIED PARENTERAL ROUTES) route once every month. blood sugar diagnostic ([employer]) test strip USE ONE STRIP TO CHECK GLUCOSE ONCE DAILY losartan (COZAAR) 25 mg tablet TAKE 1 TABLET DAILY ketoconazole (NIZORAL) 2 % shampoo Apply 1 application to affected area once daily as needed. atorvastatin (LIPITOR) 20 mg tablet Take 1 tablet by mouth once daily. Blood-Glucose Meter ([employer] VERIO SYSTEM) misc Use as directed. Cholecalciferol, [...] aneurysm) Mother Ischemic Heart Disease Brother 58 OR Alcohol/Drug Brother Breast Cancer Sister Diabetes Maternal Grandmother Rheumatologic disease Maternal Grandfather Anesthesia Problems No Family History REVIEW OF SYMPTOMS: The review of systems data was entered by the nurse and reviewed by me Nursing Notes: Jena Webb RN 05/18/2023 3:22 [...] PFSH and ROS obtained by others. Belén Reyes PA-C PHYSICAL EXAMINATION: General: The patient is [...] continuous oral anticoagulation Consultation requested by Dr. Al for an opinion regarding bright red rectal bleeding. My final recommendations will be communicated back to the requesting physician by way of shared Medical record or letter to requesting physician via US mail. Belén Reyes PA-C documented in this encounter [facility] 02-17-[address] Baron, Patient has never seen you in the office, nor have you done a procedure on him. Not sure why this refill is being sent to you. Please advise. Robyn Duke RN documented in this encounter [facility] 02-15-2023 Miscellaneous Notes First attempt to reach patient. No VM left. Katherine Gao February 15, 2023 6:30 PM documented in this encounter [facility] 09-16-2022 Miscellaneous Notes Patient phones requesting refills as follows: Requested Prescriptions Pending Prescriptions Disp Refills omeprazole (PRILOSEC) 40 mg capsule [Pharmacy Med Name: OMEPRAZOLE DR CAPS 40MG] 90 capsule 0 Sig: TAKE 1 CAPSULE DAILY Please review and advise. Julia Ramirez Ma documented in this encounter [facility] 08-29-2022 Miscellaneous Notes Returned patient's call left [...] to no relief. Patient uses [facility] in [place]. Please advise and call patient. documented in this encounter [facility] 06-03-2022 History of Present illness Narrative Radiology Service Progress Note PATIENT NAME: Temo Garrison DATE OF SERVICE: June 03, 2022 TIME: 10:01 AM PATIENT IDENTITY VERIFICATION COMPLETED USING TWO (2) IDENTIFIERS: Name and Date of confirmed by patient verbally. FALL SCREENING: Has the patient had 2 falls in the last year or 1 fall with injury or currently using an Ambulatory Assistive Device (Walker, Cane, Wheelchair, Crutches, etc.)? No PATIENT GENDER DATA: Male PATIENT RELEVANT IMPLANT DATA REVIEWED: Not Applicable RADIOLOGY DEPARTMENT: General X-ray: Exam(s) Completed: Lower Extremity X-Ray(s): Tibia Fibula, Right and Ankle, Right PERIPHERAL IV DATA: Not applicable SIGNED BY: RT Chan(R) June 03, 2022 10:01 AM documented in this encounter [facility] 01-05-2022 History of Present illness Narrative VIRTUAL [...] Dr. Berry Chronic kidney disease, stage 3 ([facility]) Seeing Dr. Moss DDD (degenerative disc disease), cervical DDD (degenerative disc disease), lumbar Seeing Dr. Thayer Diarrhea Diverticulosis of colon (without mention of hemorrhage) DVT (deep venous thrombosis) ([facility]) 08/06/2020 Essential tremor External hemorrhoids without mention [...] complication, without long-term current use of insulin ([facility]) 06/07/[address] 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 lancets (ZilikoUCH DELICA LANCETS) 30 gauge misc Use as directed to test glucose 3 times weekly. DX: E11.9 100 Each 3 cyanocobalamin, vitamin B-12, (VITAMIN B-12 INJECTION) by INJECTION(UNSPECIFIED PARENTERAL ROUTES) route once every month. sitaGLIPtin (JANUVIA) 50 mg tablet Take 1 tablet by mouth once daily. 90 tablet 3 blood sugar diagnostic (ZilikoUCH VERIO) test strip USE ONE STRIP TO [...] once daily. 90 tablet 1 Blood-Glucose Meter (ZilikoUCH VERIO SYSTEM) [facility] [...] with more than 50% of the total kpic-ha-oldf time of the visit in counseling / coordination of care. I have confirmed and edited as necessary, the PFSH and ROS obtained by others. Carol Tran APRN.CNP January 05, 2022 9:48 AM documented in this encounter [facility] 01-04-2022 Miscellaneous Notes Patient scheduled for a [...] Temo had an EGD completed by Dr. Chidi Burton on 12/13/2021. He will need a follow [...] EGD is still scheduled on 12/13 at [facility]? He states he has not received any instructions and wants to make sure he does not miss anything. Advised patient general surgery staff would contact him when they return to the office on 11/22/21. He verbalized understanding. documented in this encounter [facility] 10-20-2021 History of Present illness Narrative I [...] denies a dyspnea with daily activities. -[facility] [address] DO Work Phone: 10-18-2021 History of Present [...] He denies a dyspnea with daily activities. -[facility] [address] Work [...] denies a dyspnea with daily activities. [facility] DO Work Phone: 09-02-2021 History of Present [...] a inspire inserted in 2017 at the [facility]. 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 -[facility]-[employer] DO Work Phone: 09-02-2021 History of Present [...] a inspire inserted in 2017 at the [facility]. 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 -[facility] DO Work Phone: 07-20-2021 History of Present illness [...] a sleep study in 2013 at the [facility]. The patient's [place] Sleepiness Scale score today was 4. The [...] a vengeance and wake him from sleep. [facility] Work Phone: 07-16-2021 History of Present illness Narrative Mr. TEMO GARRISON is presenting for inspire eval- existing implantThe patient was kindly referred by Malick Baird personally reviewed the referring provider's note dated 07/16/21Multifactorial sleep issues- rosita, rlsVery restless sleeperWas started on RequipCurrently using OAT for OSAHas inspire [facility] (up to 20 min SL) until 830Baseline AHI 55 (2013 study [facility])Study with OAT in place showed AHI 24.4Noted [...] the known universe Had TE CA by reportHacristiano ZapataThe whole time he has had it, it [...] on requip dose is being adjusted upwards [facility] [address] [place] Work Phone: 07-16-2021 History of Present illness Narrative Mr. TEMO GARRISON is presenting for inspire eval- existing implantThe patient was kindly referred by Malick Baird personally reviewed the referring provider's note dated 07/16/21Multifactorial sleep issues- rosita, rlsVery restless sleeperWas started on RequipCurrently using OAT for OSAHas inspire [facility] (up to 20 min SL) until 830Baseline AHI 55 (2013 study [facility])Study with OAT in place showed AHI 24.4Noted [...] PLAN TO USE WITH OAT IN PLACE BQ-Mkbuarkevqsnms-Ukfrd MAC1 [address] [place] Work Phone: 07-16-2021 History [...] a sleep study in 2013 at the [facility]. The patient's [place] Sleepiness Scale score today was 4. The [...] a vengeance and wake him from sleep. [facility]Tjdnvcphg[facility]ef[facility] 204 Work Phone: 11-25-2016 History of Past i llness Narrative Problem Noted Date Resolved Date Chronic kidney [...] of this encounter (statuses as of 01/04/2022) [facility] of [facility] Narrative* Problem Noted [...] of this encounter (statuses as of 01/05/2022) [facility] of [facility] Narrative* Problem Noted [...] of this encounter (statuses as of 05/15/2022) [facility] of [facility] Narrative* Problem Noted [...] of this encounter (statuses as of 08/30/2022) [facility] Narrative* Problem Noted [...] of this encounter (statuses as of 09/19/2022) [facility] of [facility] Narrative* Problem Noted [...] of this encounter (statuses as of 02/16/2023) [facility] of [facility] Narrative* Problem Noted [...] of this encounter (statuses as of 02/17/2023) [facility] of [facility] Narrative* Problem Noted [...] of this encounter (statuses as of 05/29/2023) [facility] Narrative* Problem Noted [...] of this encounter (statuses as of 06/08/2023) [facility] Narrative* Problem Noted [...] of this encounter (statuses as of 09/14/2023) [facility] of [facility] illness Narrative* From a previous note from Dr. 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 * Naps: Patient [...] not act out of dream. No nightmares. [facility] [address] DO Work Phone: 1(207) 105-195402-07-2016 History of Present illness Narrative* From a previous note from Dr. 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 * Naps: Patient [...] not act out of dream. No nightmares. [facility] [address] Work Phone: 1(786) 592-870203-27-2015 History of Present illness Narrative* From a previous note from Dr. 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 * Naps: Patient [...] act out of dream. No nightmares. -[facility] [address] DO Work Phone: [phone] 524-620203-04-2015 History of Present illness Narrative* Mr. 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 * Naps: Patient [...] not act out of dream. No nightmares. -[facility] [address] DO Work Phone: chief complaint Narrative [...] * Virtual visit. Follow up on sleep. FZ[facility]Yhatqvtvx[facility]ue[facility] [address] Work Phone: chief complaint Narrative - [...] * Virtual visit. Follow up on sleep. [facility] Work Phone: chief complaint Narrative [...] * Virtual visit. Follow up on sleep. [facility] Work Phone: chief complaint Narrative - Reported* TEMO GARRISON is here for an initial evaluation. * Reason for Visit: Nocturnal Hypoxemia. * Appointment requested by: Dr. Weber; PCP: Dr. Wilson. [facility] [address] DO Work Phone: chief complaint Narrative - Reported* TEMO GARRISON is here for an initial evaluation. * Reason for Visit: Nocturnal Hypoxemia. * Appointment requested by: Dr. Weber; PCP: Dr. Wilson. -[facility] Medicine-[place] [address] DO Work Phone: chief complaint Narrative - Reported* TEMO GARRISON is here for an initial evaluation. * Reason for Visit: Nocturnal Hypoxemia. * Appointment requested by: Dr. Weber; PCP: Dr. Wilson. [facility]P[facility] MedicineSte[place] [address] DO Work Phone: Evaluation note* Diagnosis History of Small's esophagus- Primary [facility]* Diagnosis Bright red blood per rectum- Primary Hemorrhage of rectum and anus Hemorrhoids, internal Internal hemorrhoids without mention of complication documented [facility]* Diagnosis Other chronic pain [facility] Diagnosis Bright red blood per rectum- Primary Hemorrhage of rectum and anus Hemorrhoids, internal Internal hemorrhoids without mention of complication [facility]* Diagnosis Preop examination- Primary Preoperative examination, unspecified Abnormal findings on diagnostic imaging of abdomen Nonspecific (abnormal) findings on radiological and other examination of abdominal area, including retroperitoneum Essential tremor Essential and other specified forms of tremor Essential hypertension Unspecified essential hypertension ROSITA (obstructive sleep apnea) Obstructive sleep apnea (adult) (pediatric) Stage 3 chronic kidney disease, unspecified whether stage 3a or 3b CKD (HCC) Type 2 diabetes mellitus without complication, without long-term current use of insulin (HCC) Deep vein thrombosis (DVT) of proximal lower extremity, unspecified chronicity, unspecified laterality (HCC) Excessive drinking alcohol Alcohol abuse, unspecified Pre-op evaluation- Primary Preoperative examination, unspecified 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 Small's esophagus Benign prostatic hyperplasia with lower urinary tract symptoms, symptom details unspecified Excessive drinking alcohol Alcohol abuse, unspecified Deep vein thrombosis (DVT) of proximal lower extremity, unspecified chronicity, unspecified laterality (HCC) Type 2 diabetes mellitus without complication, without long-term current use of insulin (HCC) Stage 3 chronic kidney disease, unspecified whether stage 3a or 3b CKD (HCC) Essential hypertension Unspecified essential hypertension Mixed hyperlipidemia Treatment-emergent central sleep apnea Acute cough [facility]* The patient has [...] [facility] The patient's [place] Sleepiness Scale score today was 4. The [...] a vengeance and wake him from sleep. [facility] Work Phone: Reason for visit Narrative* Diagnostic Procedure Only (Urgent) - Closed Specialty Diagnoses / Procedures Referred By Contac t Referred To Contact XR IMAGING Diagnoses Lower extremity injury, right, initial encounter Procedures XR ANKLE GENERAL 3V AP/LAT/OBL RIGHT RADEX ANKLE COMPLETE MINIMUM 3 VIEWS Joe Goodwin, JOCELYN.[employer] [address] [place] [address] [place] [address] Referral ID Status Reason Start Date Expiration Date V isits Requested Visits Authorized [id number] Closed Auto-Generate d Referral 06/03/2022 07/03/2023 1 1 [facility] Summary Purpose Family History Unknown Family Member Name Dates Details No [...] Relatives, Paternal Relatives(V49.89, Z78.9) Status:Active Advance Directives Documents on File Type Date Recorded Patient [employer] Member Expl anation Advance Directive(s) 12/13/2021 9:35 AM Advance Directive(s) 08/10/2020 7:21 AM M dorian infusion Advance Directive(s) 08/10/2020 7:20 AM Advance Directive(s) 08/03/2020 1:49 PM Advance Directive(s) 11/23/2016 9:39 AM Advance Directive(s) 11/22/2016 9:26 AM Advance Directive(s) 05/24/2016 1:39 PM Advance Directive(s) 12/13/2011 12:00 AM Advance Directive(s) 12/01/2006 12:00 AM Documents on File Type Date Recorded Patient [employer] Member Expl anation Advance Directive(s) 08/10/2020 7:20 AM Advance Directive(s) 12/13/2011 Advance Directive(s) 12/01/2006 Documents on File Type Date Recorded Patient [employer] Member Expl anation Advance Directive(s) 08/10/2020 7:20 AM [...] ized section and content) DATE CREATED AUTHOR 04/06/2018 [facility] DATE CREATED AUTHOR AUTHOR'S ORGANIZ ATION 04/10/2018 [facility] ([place]) DATE CREATED AUTHOR AUTHOR'S ORGANIZ ATION 10/13/2018 [facility] DATE CREATED AUTHOR AUTHOR'S ORGANIZ ATION 01/06/2021 [facility] DATE CREATED AUTHOR AUTHOR'S ORGANIZ ATION 10/03/2021 [facility] DATE CREATED AUTHOR AUTHOR'S ORGANIZ ATION 12/15/2021 [facility] DATE CREATED AUTHOR AUTHOR'S ORGANIZ ATION 02/28/2023 [facility] DATE CREATED AUTHOR AUTHOR'S ORGANIZ ATION 02/28/2023 [facility] DATE CREATED AUTHOR AUTHOR'S ORGANIZ ATION 06/03/2023 [facility] DATE CREATED AUTHOR AUTHOR'S ORGANIZ ATION 10/06/2023 [facility] Reason for Visit (unrecogniz ed section and content) Reason Comments EGD Procedure Follow Up EGD completed on Reason Comments EGD follow up Gas Reason Comments Patient Update Patient Question Reason Comments Refill Request Reason Comments Appointment Reason Comments Consult colonoscopy Reason Comments Pain Specialty Diagnoses / Procedures Referred By Contac t Referred To Contact Multispecialty Diagnoses Other chronic pain Malick Al MD [address] [address] [facility] [address] [place] [address] Referral ID Status Reason Start Date Expiration Date V isits Requested Visits Authorized [id number] New Request 04/11/2023 05/05/2024 1 1 Reason Comments Procedure BANDING Reason Onset Date Comments Refill Request 09/13/2023 Source Comments (unrecognize d section and content) In the event this informatio n is protected by the Federal Confidentiality of Alcohol and Drug Abuse Patient Records regulations: The Federal rules restrict any use of the information to criminally investigate or prosecute any alcohol or drug abuse patient.[facility] the event this information is protected by the Federal Confidentiality of Alcohol and Drug Abuse Patient Records regulations: The Federal rules restrict any use of the information to criminally investigate or prosecute any alcohol or drug abuse patient.[facility] SystemIn the event this information is protected by the Federal Confidentiality of Alcohol and Drug Abuse Patient Records regulations: The Federal rules restrict any use of the information to criminally investigate or prosecute any alcohol or drug abuse patient.[facility] SystemIn the event this information is protected by the Federal Confidentiality of Alcohol and Drug Abuse Patient Records regulations: The Federal rules restrict any use of the information to criminally investigate or prosecute any alcohol or drug abuse patient.[facility] SystemIn the event this information is protected by the Federal Confidentiality of Alcohol and Drug Abuse Patient Records regulations: The Federal rules restrict any use of the information to criminally investigate or prosecute any alcohol or drug abuse patient.[facility] SystemIn the event this information is protected by the Federal Confidentiality of Alcohol and Drug Abuse Patient Records regulations: The Federal rules restrict any use of the information to criminally investigate or prosecute any alcohol or drug abuse patient.[facility] SystemIn the event this information is protected by the Federal Confidentiality of Alcohol and Drug Abuse Patient Records regulations: The Federal rules restrict any use of the information to criminally investigate or prosecute any alcohol or drug abuse patient.[facility] SystemIn the event this information is protected by the Federal Confidentiality of Alcohol and Drug Abuse Patient Records regulations: The Federal rules restrict any use of the information to criminally investigate or prosecute any alcohol or drug abuse patient.[facility] SystemIn the event this information is protected by the Federal Confidentiality of Alcohol and Drug Abuse Patient Records regulations: The Federal rules restrict any use of the information to criminally investigate or prosecute any alcohol or drug abuse patient.[facility] SystemIn the event this information is protected by the Federal Confidentiality of Alcohol and Drug Abuse Patient Records regulations: The Federal rules restrict any use of the information to criminally investigate or prosecute any alcohol or drug abuse patient.[facility] SystemIn the event this information is protected by the Federal Confidentiality of Alcohol and Drug Abuse Patient Records regulations: The Federal rules restrict any use of the information to criminally investigate or prosecute any alcohol or drug abuse patient.[facility] SystemIn the event this information is protected by the Federal Confidentiality of Alcohol and Drug Abuse Patient Records regulations: The Federal rules restrict any use of the information to criminally investigate or prosecute any alcohol or drug abuse patient.[facility] Teams (unrecognized sec tion and content) Record Keeper Relationship Specialty Start Date End Date Monserrat Wilson [address] [place] [address] PCP - General Family Practice 06/26/18 Record Keeper Relationship Specialty Start Date End Date Monserrat Wilson [address] [place] [address] PCP - General Family Practice 06/26/18 Record Keeper Relationship Specialty Start Date End Date Monserrat Wilson [address] [place] [address] PCP - General Family Practice 06/26/18 Record Keeper Relationship Specialty Start Date End Date Monserrat Wilson [address] [place] [address] PCP - General Family Medicine 06/26/18 Record Keeper Relationship Specialty Start Date End Date Monserrat Wilson [address] [place] [address] PCP - General Family Medicine 06/26/18 Record Keeper Relationship Specialty Start Date End Date Monserrat Wilson MD [address] [place], [place] [id number] PCP - General Family Medicine 06/26/18 Record Keeper Relationship Specialty Start Date End Date Monserrat Wilson MD [address] [place], [place] [id number] PCP - General Family Medicine 06/26/18 Record Keeper Relationship Specialty Start Date End Date Malick Al [address] [place] [address] PCP - General Family Medicine 05/18/23 Record Keeper Relationship Specialty Start Date End Date Malick Al MD [address] [place] [address] PCP - General Family Medicine 05/18/23 Record Keeper Relationship Specialty Start Date End Date Malick Al MD [address] [place] [address] PCP - General Family Medicine 05/18/23 Record Keeper Relationship Specialty Start Date End Date Malick Al MD [address] [place] [address] PCP - General Family Medicine 05/18/23 Record Keeper Relationship Specialty Start Date End Date Monserrat Wilson MD [address] [place] [address] PCP - General Family Medicine 06/26/18 05/17/23 FOR RECORDS PERTAINING TO PATIENTS WHO ARE [...] BE BASED ON THE PRIMARY CLINICAL RECORDS. Before the Call [facility]. provides no warranty or guarantee of the accuracy or completeness of information in this document.
--- NOTE | 2024-08-05 19:11 | HP.PCM.HOS_ITS ---
[facility] - General General Date of Admission: 08/05/24 Date of Service: 08/05/24 Chief Complaint: LLE DVT after Recent Left TKR with Fatigue. 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 Mr. Montanez reports his acute symptoms began ~2-3 days prior to admission with the abrupt-onset of LLE pain that has gradually worsened since that time. He could not fully articulate his symptoms otherwise except to say, I feel something is wrong. which caused him to increase his consumption of oxycodone. He states he was switched to Lovenox 3 days prior to surgery and the evening prior to the surgery his Lovenox was stopped and then he resumed his Eliquis 5 mg PO BID - which he states he has been taking faithfully since that time. He was then sent to the vascular lab as an outpatient and was noted to have a Left Popliteal DVT with his concerned she cannot care for him at home in his current condition so he was sent in to the ER for further evaluation and treatment. He denies associated fever, chills, nausea, vomiting, diarrhea, abdominal pain, chest pain or SOB but he does admit to post nasal drip, severe fatigue and one episode of near syncope. He states he now thinks he should have been discharged into rehabilitation after his ORIF. In the ER he was diagnosed with LLE DVT after recent Left TKR eleven days ago complicated by generalized weakness, ambulatory dysfunction and fatigue and he was then admitted to the general medical floor under observation status for ongoing care for a stay that is expected to be less than 2 midnights. [facility] Medical History Abrasion Ankle injury Cancer Thyroid disease Arthritis History of renal disease High cholesterol Back pain History of echocardiogram Tilt table evaluation Hx of fracture of ankle Chronic fatigue Chronic pain Squamous cell cancer of external ear ROSITA (obstructive sleep apnea) Alcohol abuse Mixed hyperlipidemia Type 2 diabetes mellitus Syncope and collapse Essential hypertension History of DVT (deep vein thrombosis) Wears hearing aid Wears glasses Fibromyalgia Alcohol use Diabetes DVT (deep venous thrombosis) Thinning of skin Restless legs (Unknown) Back pain Injury of head and neck Passed out Dietary restriction Gastric reflux Former smoker Leg cramps History of stress test History of Holter monitoring Cardiology follow-up encounter History of rheumatic fever Encounter for screening for COVID-19 Fatigue Diabetes mellitus inspire device implant intracular lenses x2 Raynaud disease Cataracts, bilateral Chronic kidney disease, stage 3 HTN (hypertension) Hypertriglyceridemia Hyperlipidemia Prostate Tissues Osteoarthritis Gout Chest pain Home Medications ?Medication ?Instructions ?Recorded ?Last Taken ?Type duloxetine 60 mg capsule,delayed 60 mg PO .EVERY 2 DAYS depression 04/17/14 07/26/24 History release losartan 25 mg tablet 25 mg PO DAILY blood pressure 04/17/14 08/05/24 History atorvastatin 20 mg tablet 20 mg PO QHS 06/04/21 08/04/24 History blood sugar diagnostic (OneTouch 09/06/22 Unknown History Verio test strips) ketoconazole 2 % shampoo 1 applic topical 2XW PRN PRN 09/06/22 08/03/24 History dupilumab 300 mg/2 mL subcutaneous 300 mg subcut QMONTH 11/23/22 07/20/24 History pen injector (Dupixent) ascorbate calcium (vitamin C) 500 1 g PO DAILY 08/01/23 08/05/24 History mg tablet levothyroxine 50 mcg capsule 50 mcg PO DAILY 08/01/23 08/05/24 History pyridoxine (vitamin B6) 100 mg 100 mg PO DAILY 08/01/23 08/05/24 History tablet omeprazole 40 mg capsule,delayed 40 mg PO BID 08/03/23 08/05/24 History release cyanocobalamin (vitamin B-12) 1,000 mcg PO DAILY 11/29/23 08/04/24 History 1,000 mcg tablet (Vitamin B-12) folic acid 1 mg tablet 1 mg PO DAILY #90 tabs 01/16/24 08/05/24 Rx amlodipine 5 mg tablet 5 mg PO QHS 06/25/24 08/04/24 History cholecalciferol (vitamin D3) 25 2,000 unit PO DAILY vitamin 06/25/24 08/04/24 History mcg (1,000 unit) capsule tizanidine 4 mg tablet 8 mg PO QHS muscle 06/25/24 08/04/24 History spasticity/insomnia/leg restlessness verapamil 240 mg tablet,extended 240 mg PO 1500 07/05/24 08/04/24 History release apixaban 5 mg tablet (Eliquis) 5 mg PO BID 07/23/24 08/05/24 History gabapentin 600 mg tablet 600 mg PO TID 07/23/24 08/05/24 History acetaminophen 500 mg tablet 1,000 mg (2 x 500 mg) PO TID #0 07/31/24 08/05/24 Rx tabs oxycodone 5 mg tablet 5 - 10 mg (1 - 2 x 5 mg) PO Q4H 07/31/24 08/05/24 Rx PRN PRN Pain Score 4-10 7 days #42 tabs polysaccharide iron complex 150 mg 150 mg PO DAILY 21 days #21 caps 07/31/24 08/05/24 Rx iron capsule (Ferrex) sennosides 8.6 mg-docusate sodium 2 tab PO BID 5 days #20 tabs 07/31/24 08/01/24 Rx 50 mg tablet (Stimulant Laxative Plus) valacyclovir 1 gram tablet 1,000 mg PO Q12H Antiviral 08/05/24 08/05/24 History Allergy/AdvReac Type Severity Reaction Status Date / Time tamsulosin Allergy Severe Blacked Verified 07/29/24 07:31 out, Passed out meloxicam Allergy Unknown Decrease Verified 07/29/24 07:31 in kidney function alfuzosin HCl (From Allergy Unknown Verified 07/29/24 07:31 Uroxatral) ezetimibe (From Zetia) Allergy Pain in Verified 07/29/24 07:31 joints pramipexole di-HCl (From Allergy Other Verified 07/29/24 07:31 Mirapex) simvastatin (From Zocor) Allergy Pain in Verified 07/29/24 07:31 joints celecoxib (From Celebrex) AdvReac Unknown Unknown Verified 07/29/24 07:31 lisinopril AdvReac Other Verified 07/29/24 07:31 Family History Brother Myocardial infarction, Onset Age: 58 Sister Cancer Breast Grandfather Myocardial infarction Other Arthritis Breast cancer FH: defects Surgical History History of transurethral resection of prostate History of esophagogastroduodenoscopy (EGD) Hx of colonoscopy History of repair of anterior cruciate ligament of left knee H/O cataract removal with insertion of prosthetic lens History of total right knee replacement (TKR) Social History Smoking Status: Former smoker alcohol intake: current alcohol intake frequency: 0-2 drinks per day details: 4-5 shots of Fleming daily substance use type: does not use caffeine: Yes Type: coffee Number of servings: 3 what type of physical activity do you participate in: none ROS ROS Narrative Review of Systems: Constitutional: Patient admits to fatigue but he denies fever or chills. Eyes: Patient denies changes in vision or discharge from eyes. ENT: Patient admits to runny nose but he denies sore throat or ear pain. Resp: Patient denies SOB or cough. CV: Patient denies chest pain, palpitations pr heart racing. GI: Patient denies abdominal pain, nausea, vomiting, diarrhea or constipation. : Patient denies dysuria or hematuria. MSK: Patient admits to LLE pain and swelling made worse with ambulation. Skin: Patient admits to LLE erythema but he denies rash or infection of his surgical wound along with shingles rash over his Right beltline and back. Psych: Patient denies symptoms of uncontrolled depression or anxiety. Neuro: Patient denies headache, paresthesias or focal neurologic deficit. Allergy: Patient denies lip swelling, tongue swelling or urticaria. Hematology: Patient denies easy bleeding or easy bruisability. Endocrinology: Patient denies polyuria, polydipsia or polyphagia. 14 point ROS otherwise negative except for positives noted above in HPI. Vital Signs Vital Signs Vital Signs: 08/05/24 12:17 08/05/24 14:17 08/05/24 16:00 Temperature 97.5 F L Temperature Source Temporal Pulse Rate 54 L 70 75 Respiratory Rate 22 H 18 15 Blood Pressure 134/61 H 101/57 L 115/80 Blood Pressure Mean 85 71 91 Pulse Ox 99 98 98 Oxygen Delivery Method Room Air Room Air 08/05/24 18:00 Temperature Temperature Source Pulse Rate 75 Respiratory Rate 15 Blood Pressure 113/64 Blood Pressure Mean 80 Pulse Ox 98 Oxygen Delivery Method Physical Exam Const alert, oriented x3, no apparent distress and average body habitus General Appearance: cooperative HEENT normocephalic, head/scalp atraumatic, hearing grossly normal bilaterally and moist oral mucous membranes Eyes PERRL and EOMs intact bilaterally Neck no lymphadenopathy and supple Resp normal respiratory effort, no retractions, no use of accessory muscles and clear to auscultation bilaterally Cardio regular rate and regular rhythm GI normal to inspection, nondistended, normoactive bowel sounds, soft to palpation, non-tender and non-distended Extremity Extremity Narrative: Positive LLE redness, pain and swelling. Skin Skin Narrative: Patient has mild erythema of the LLE. Neuro oriented x3, CN's II-XII intact bilaterally, moves all extremities and no focal motor deficits Sensorium / Orientation: awake, alert, oriented to person, oriented to place and oriented to time Speech: speech normal Psych affect normal Results Medical Records Data Attestation: I reviewed the patient's medical records Lab / Micro Data Attestation: I reviewed the patient's lab results. 08/05/24 14:22 08/05/24 14:22 Labs: Laboratory Results - last 24 hr 08/05/24 14:22: WBC 10.6, RBC 2.90 L, Hgb 9.3 L, Hct 29.0 L, MCV 100.0 H, MCH 32.1 H, MCHC 32.1, RDW Std Deviation 50.2 H, RDW Coeff of Zuleyka 13.7, Plt Count 300, MPV 10.7, Immature Gran % (Auto) 0.600, Neut % (Auto) 73.7 H, Lymph % (Auto) 11.9 L, Ballard % (Auto) 9.5, Eos % (Auto) 3.4, Baso % (Auto) 0.9, Absolute Neuts (auto) 7.8 H, Absolute Lymphs (auto) 1.26, Nucleated RBC % 0, Sodium 138, Potassium 4.2, Chloride 104, Carbon Dioxide 26.0, Anion Gap 8, BUN 30 H, C reatinine 1.98 H, Est GFR (MDRD) Af Amer 42 L, Est GFR (MDRD) Non-Af 35 L, BUN/Creatinine Ratio 15.2, Glucose 132 H, Lactic Acid 1.0, Calcium 8.7 Imaging Radiology Impression Chest CTA 08/05/24 16:58 IMPRESSION: Negative CTA chest. Electronically Signed: Armando Wheeler MD at 18:07 EDT Reading Location ID and State: [id number] [facility] Tel , Service support , Assessment & Plan Assessment/Plan (1) Acute deep vein thrombosis (DVT) of popliteal vein of left lower extremity: (2) Shingles: QUALIFIERS: Herpes zoster complications: unspecified herpes zoster complication Qualified Code(s): B02.8 - Zoster with other complications (3) S/P total knee arthroplasty: QUALIFIERS: Laterality: left Qualified Code(s): Z96.652 - Presence of left artificial knee joint (4) Anticoagulant long-term use: (5) Generalized weakness: (6) Ambulatory dysfunction: (7) History of deep vein thrombosis (DVT) of lower extremity: (8) Chronic kidney disease: QUALIFIERS: Chronic kidney disease stage: stage 3 (moderate) C hronic kidney disease stage 3 subtype: stage 3b (GFR 30-44) Qualified Code(s): N18.32 - Chronic kidney disease, stage 3b PLAN: Plan 1. LLE DVT after recent Left TKR eleven days ago - Admit to general medical floor under observation status. Continue treatment with full-dose Lovenox as per orthopod's recommendations. Give Tylenol prn for [id number] (level 1- 5/10) pain or fever. Continue oxycodone prn for severe (level 6-10/10) pain. 2. Recent outbreak of shingles over his Right belt-line and back; on Acyclovir complicating #1 - Place on contact precautions and resume Acyclovir as previous. 3. Generalized Weakness, Ambulatory Dysfunction and Fatigue arising from #1 & #2 - PT/OT and Case Management to consult and treat on-rounds in the AM for further recommendations to help him get into rehabilitation with help appreciated in advance. 4. History of multiple DVT's; on Eliquis (2018) & (2022) - Noted. 5. Essential hypertension - Resume home regimen plus give prn IV Hydralazine for systolic blood pressure > 160 mmHg. 6. Hyperlipidemia - Continue statin as previous. 7. Hypothyroidism - Maintain Synthroid at current dose and schedule plus check TSH in light of #2. 8. DM-2; of unknown control with diabetic neuropathy - ADA diet. FSBS q. AC/HS plus SSI. Check HgbA1c to objectiely evaluate quality of diabetic control. 9. Overweight; with BMI of 28 this admission plus ROSITA; noncompliant with CPAP - Weight loss will be recommended. 10. CKD; stage III - Stable with baseline creatinine ~1.98 mg/dL. 11. Remote history of EtOH abuse (quit ~2013) - Noted. 12. History of syncope and collapse - Noted. 13. Raynaud's disease - Stable. 14. RLS - Stable. 15. Fibromyalgia; on Cymbalta - Continue Cymbalta as before. 16. Chronic anemia - Stable with hemoglobin of 9.3 g/dL present on admission. 17. 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 18. BPH; s/p TURP (12/2023) - Noted. 19. GERD - Resume PPI. 20. History of Right TKR (2013) - Noted. 21. History of Left ACL tear; s/p repair - Noted. 22. History of Left ankle fracture; s/p ORIF (2021) - Noted. 23. DDD - Stable. 24. Gout - Stable with no evidence of acute flare. 25. OA - Give Tylenol prn. 26. DVT prophylaxis - Patient on full-dose Lovenox for #1 which will be continued. Total time: Approximately (but not less than) 70 minutes. Charges/Coding Visit Charges OBSV E&M: 87484 Observ/hosp same date L2
--- OUTSIDE RECORDS SUMMARY | 2024-08-05 19:59 | XMS RPT_ITS | CCD ---
Author Organization [facility] CliniSyla Care Team Providers Care Electrical Designer Name Role Phone Yulia Doll Unavailable Zumbar, [...] Deevaaliya labMalick Velez Primary Care Provider [phone] Unavailable Primary Care Provider UnavailMARLON Pierre Attending [...] (2 sources) alfuzosin; Translations: [Uroxatral] Drug Allergy RZ-Qdehstvjx-K arma 204 Work Phone: Cholesterol Absorption Inhibitors (1 source) ezetimibe; Translations: [Zetia] Drug Allergy OK-Xajinpjpt-H arma 204 Work Phone: HMG-CoA Reductase Inhibitors (statins) (1 source) Simvastatin; Translations: [Zocor] Drug Allergy ES-Fppmasmlg-D arma 204 Work Phone: NSAIDs (2 sources) celecoxib; Translations: [CeleBREX CAPS] Drug Allergy BA-Ogyjsznly-R arma 204 Work Phone: Pramipexole (1 source) Pramipexole; Translations: [Mirapex] Drug Allergy IL-Qsxthtfvg-U arma 204 Work Phone: (20 sources) alfuzosin; Translations: [Uroxatral] Drug Allergy OL-Uwhvlbjvw-T arma 204 Work Phone: (20 sources) celecoxib; Translations: [CeleBREX CAPS] Drug Allergy 2 Unknown [facility] (20 sources) ezetimibe; Translations: [ZETIA] Drug Allergy [facility] Repository (20 sources) meloxicam; Translations: [MELOXICAM] Drug Allergy 0 Unknown [facility] Repository (20 sources) Pramipexole; Translations: [MIRAPEX] Drug Allergy [facility] Repository (20 sources) Simvastatin; Translations: [ZOCOR] Drug Allergy [facility] Repository (20 sources) tamsulosin; Translations: [tamsulosin] Drug Allergy 0 Intolerance, Syncope [facility] (1 source) celecoxib Drug Allergy [facility] Repository (13 sources) alfuzosin; Translations: [ALFUZOSIN HCL] Drug Allergy 7 Other: See Comments [facility] (13 sources) ezetimibe; Translations: [EZETIMIBE] Drug Allergy 5 Other: See Comments [facility] (13 sources) Pramipexole; Translations: [PRAMIPEXOLE] Drug Allergy 0 Intolerance [facility] (14 sources) Simvastatin; Translations: [SIMVASTATIN] Drug Allergy 5 Other: See Comments [facility] (1 source) ezetimibe Drug Allergy 0 [facility] (1 source) Pramipexole Drug Allergy 0 [facility] (1 source) celecoxib; Translations: [CELECOXIB] Drug Allergy 2 [facility] Repository Medications Current Medications Medication Drug Class(es) [...] 10/04/2023 Active Blood-Glucose Meter (ONETOUCH VERIO SYSTEM) [facility] (12 sources) Start: 7 Blood-Glucose Meter (ONETOUCH VERIO SYSTEM) [facility] Use as directed. 1 Each 07/10/2017 Active Start: 07-10-2017 Blood-Glucose Meter (ONETOUCH VERIO SYSTEM) [facility] Use as directed. 1 Each 0 [...] Comment on above: Take 1 capsule by [facility] once daily. TAKE 1 CAPSULE DAILY valACYclovir [...] Comment on above: Take 1 capsule by [facility] daily at bedtime. 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 10-05-2023 [facility] Telephone ([facility]) TEMO GARRISON ([id number]) 1940 M Date Time Provider Department 10/05/23 JESSICA ORTIZ [facility] During your visit today, we recorded the following information about you: Jessica Ortiz APRN.[facility] 10/05/2023 7:55 AM Signed Left message notifying [...] mg by mouth twice daily. - lancets (Vestor LANCETS) 30 gauge misc Use as directed to test glucose 3 times weekly. DX: E11.9 - dupilumab (DUPIXENT SUBCUTANEOUS) Inject subcutaneously as needed (taking every three weeks). 08/17/2021 reported taking every 3 weeks - cyanocobalamin, vitamin B-12, (VITAMIN B-12 INJECTION) by INJECTION(UNSPECIFIED PARENTERAL ROUTES) route once every month. - blood sugar diagnostic (ArtSetters [employer]Cell[employer]) test strip USE ONE STRIP TO CHECK GLUCOSE ONCE DAILY - losartan (COZAAR) 25 mg tablet TAKE 1 TABLET DAILY - ketoconazole (NIZORAL) 2 % shampoo Apply 1 application to affected area once daily as needed. - atorvastatin (LIPITOR) 20 mg tablet Take 1 tablet by mouth once daily. - Blood-Glucose Meter (ArtSetters VERIO SYSTEM) misc Use as directed. - [...] obstruction [N32.0] 05/28/2007 01/03/2014 Postoperative urethral stricture [QSD1923] 11/26/2007 01/03/2014 Cellulitis and abscess of toe, [...] [R39.198] 09/19/201102/13 (more content not included)... Normal [facility] CNOVon 10-04-2023 CNOV Office Visit (UCWSTR ) TEMO GARRISON ([id number]) 1940 M Date Time Provider Department 10/04/23 [...] Dr. Berry Chronic kidney disease, stage 3 ([facility]) Seeing Dr. Moss DDD (degenerative disc disease), cervical DDD (degenerative disc disease), lumbar Seeing Dr. Thayer Diarrhea Diverticulosis of colon (without mention of hemorrhage) DVT (deep venous thrombosis) ([facility]) 08/06/2020 Essential tremor External hemorrhoids without mention [...] complication, without long-term current use of insulin ([facility]) 06/07/[address] 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 lancets (Vestor LANCETS) 30 gauge misc Use as directed to test glucose 3 times weekly. DX: E11.9 dupilumab (DUPIXENT SUBCUTANEOUS) Inject subcutaneously as needed (taking every three weeks). 08/17/2021 reported taking every 3 weeks cyanocobalamin, vitamin B-12, (VITAMIN B-12 INJECTION) by INJECTION(UNSPECIFIED PARENTERAL ROUTES) route once every month. blood sugar diagnostic ([employer]ters [employer]) test strip USE ONE STRIP TO CHECK GLUCOSE ONCE DAILY losartan (COZAAR) 25 mg tablet TAKE 1 TABLET DAILY ketoconazole (NIZORAL) 2 % shampoo Apply 1 application to affected area once daily as needed. atorvastatin (LIPITOR) 20 mg tablet Take 1 tablet by mouth once daily. Blood-Glucose Meter (ArtSetters VERIO SYSTEM) misc Use as directed. Cholecalciferol, Vitamin D3, 2,000 unit ORAL Cap Take 2,000 Units by mouth. ascorbic acid(VITAMIN C 500 MG TAB) Take one (1) tablet twice daily. FAMILY HISTORY Problem Relation Age of Onset Diabetes Father other (down'ssyndrome) Brother Hypertension Mother other (Other) Mother Acute Renal Failure/AAA other (Aortic aneurysm) Mother Ischemic Heart Disease Brother 58 CA Alcohol/Drug Brother Breast Cancer Sister Diabetes Maternal Grandmother Rheumatologic disease Maternal Grandfather Anesthesia Problems No Family H (more content not included)... Normal [facility] Arevalo COVID AND INFLUENZA A/B AND RSV NAAT, ROUTINEon 10-04-2023 SARS-CoV-2 (COVID-19) RNA SADE+probe Ql (Unsp spec) COVID 19 RESULT: Detected The method used is RT-PCR or an equivalent NAAT method. Reference Range (the expected result in uninfected individuals): Not detected INFLUENZA A PCR: Not detected INFLUENZA B PCR: Not detected RSV PCR: Not detected Abnormal [facility] Comment on above: Performed By: #### C VFLRS #### [facility] CLIA [id number] [address] [place] [address] STATES OF [place] XR CHEST 2V FRONTAL/LATon [...] acute findings IMPRESSION: No acute radiographic abnormality. Mammalogist: MANE Transcribe Date/Time: Oct 04 2023 2:53P Dictated by : TRUONG NEG MD This examination was interpreted and the report reviewed and electronically signed by: TRUONG ENG MD on Oct 04 2023 2:59PM EST [id number] Normal [facility] XR Chest PA and Lateralon IMPRESSION: No acute radiographic abnormality. Mammalogist: MANE Transcribe Date/Time: Oct 04 2023 2:53P [...] acute findings DIVISION OF RADIOLOGY Provider, Rogelio [facility] - 10/04/2023 * * *Final Report* * [...] findings IMPRESSION IMPRESSION: No acute radiographic abnormality. Mammalogist: PSCB Transcribe Date/Time: Oct 04 2023 2:53P Dictated by : TRUONG ENG MD This examination was interpreted and the report reviewed and electronically signed by: TRUONG ENG MD on Oct 04 2023 2:59PM EST [facility] Radiology Study observation (narrative) [facility] XR Chest PA and LateralOrder ed By: Ccf Provider on 10-04-2023 [facility] CNOVon 06-08-2023 CNOV Office Visit (GENSWS ) TEMO GARRISON ([id number]) 1940 M Date Time Provider Department 06/08/23 [...] feel free to call our office at [phone] and ask to be transferred to General Surgery. Thank you for choosing [facility] - General Surgery. Chidi Burton MD 06/08/2023 12:24 PM Signed FOLLOW UP VISIT - HEMORRHOID BANDING NAME: Temo Garrison [facility] NO.: [id number] DATE OF SERVICE: 06/08/2023 : 1940 REFERRING [...] Comments Comments: (more content not included)... Normal [facility] CNOVon 05-18-2023 CNOV Office Visit (GENSWS ) TEMO GARRISON ([id number]) 1940 M Date Time Provider Department 05/18/23 [...] mention of hemorrhage) DVT (deep venous thrombosis) ([facility]) 08/06/2020 Essential tremor External hemorrhoids without mention [...] complication, without long-term current use of insulin ([facility]) 06/07/[address] 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 lancets (Vestor LANCETS) 30 gauge misc Use as directed to test glucose 3 times weekly. DX: E11.9 dupilumab (DUPIXENT SUBCUTANEOUS) Inject subcutaneously as needed (taking every three weeks). 08/17/2021 reported taking every 3 weeks cyanocobalamin, vitamin B-12, (VITAMIN B-12 INJECTION) by INJECTION(UNSPECIFIED PARENTERAL ROUTES) route once every month. blood sugar diagnostic (ArtSetters VERIO) test strip USE ONE STRIP TO CHECK GLUCOSE ONCE DAILY losartan (COZAAR) 25 mg tablet TAKE 1 TABLET DAILY ketoconazole (NIZORAL) 2 % shampoo Apply 1 application to affected area once daily as needed. atorvastatin (LIPITOR) 20 mg tablet Take 1 tablet by mouth once daily. Blood-Glucose Meter (SeventymmUCH VERIO SYSTEM) misc Use as directed. Cholecalciferol, Vitamin D3, 2,000 (more content not included)... Normal [facility] Office Visit (Sleep Medicine )on 02-27-2023 Follow-up [...] or mask interface, please FIRST contact your [employer]. WIB can be reached at [phone]. For questions concerning your SLEEP CLINIC appointment: Call [phone] SLEEP LAB [phone] or [phone]. CAUTIONS for New PAP users: 1. You should know the [facility] compliance criteria if you have Medicare or [...] Sites: For patients with ALL SLEEP DISORDERS: [place] Academy [employer] Sleep Medicine http://sleepeducation.org; or National Sleep Foundation: https://sleepfoundation.org For patients with ROSITA: [place] Sleep Apnea Association: https://www.sleepapnea.org For patients with RLS: RLS Foundation: https://www.rls.org For patients with INSOMNIA: https://www.helpguide.org/codi zavala/sleep/insomnia-caus hc-vji-izgon.htm For patients with DEPRESSION: http://www.unbrokenwings.co m/depression Provider [...] 0.6V functional:0.7V (more content not included)... Normal [facility] Tobacco Screening.on 023 Fall risk assessment a) No falls within the last year [facility] stMoFuse A2470 DO Work Phone: Tobacco use status [facility] b) No [facility] stlake A2470 DO Work Phone: CNPNon 02-15-2023 [facility] Telephone (TroodonN) TEMO GARRISON ([id number]) 1940 M Date Time Provider Department 02/15/23 [...] by mouth daily at bedtime. - lancets (ArtSetters DELICA LANCETS) 30 gauge misc Use as [...] mouth once daily. - blood sugar diagnostic (ArtSetters VERIO) test strip USE ONE STRIP TO [...] by mouth once daily. - Blood-Glucose Meter (SeventymmUCH VERIO SYSTEM) misc Use as directed. - [...] obstruction [N32.0] 05/28/2007 01/03/2014 Postoperative urethral stricture [HEA5107] 11/26/2007 01/03/2014 Cellulitis and abscess of toe, [...] Status:Closed by KATHERINE GAO on 02/15/23 Normal [facility] Office Visit (Sleep Medicine )on 11-21-2022 Follow-up [...] or mask interface, please FIRST contact your [employer]. WIB can be reached at [phone]. For questions concerning your SLEEP CLINIC appointment: Call [phone] SLEEP LAB [phone] or [phone]. CAUTIONS for New PAP users: 1. You should know the [facility] compliance criteria if you have Medicare or [...] Sites: For patients with ALL SLEEP DISORDERS: [place] [employer] Sleep Medicine http://sleepeducation.org; or National Sleep Foundation: https://sleepfoundation.org For patients with ROSITA: [place] Sleep Apnea Association: https://www.sleepapnea.org For patients with RLS: RLS Foundation: https://www.rls.org For patients with INSOMNIA: https://www.helpguide.org/a rticles/sleep/insomnia-caus lg-zue-hmjxt.htm For patients with DEPRESSION: http://www.unbroNortal ASgs.co m/depression Provider Impressions 81 year M with [...] Oblique fracture of the distal right fibula Mammalogist: [facility] Transcribe Date/Time: Jun 03 2022 10:41A Dictated by : SREEKANTH PENDLETON MD This examination was interpreted and the report reviewed and electronically signed by: SREEKANTH PENDLETON MD on Jun 03 2022 10:43AM [facility] DIVISION OF RADIOLOGY Radiology Study observation (narrative) [facility] No Panel InformationOrdered By: Ccf Provider on 06-03-2022 [facility] XR Ankle - right AP and Late [...] AP/LAT/OBL RT -- RIGHT with 2 (accession [id number]), 3 (accession [id number]) views on 2 (accession [id number]), 3 (accession [id number]) images Comparison: None RESULT: Oblique fracture of the distal right fibula with approximately 3 mm displacement. No dislocation. Ankle mortise is maintained. Plantar calcaneal spur. Right knee prosthesis. Soft tissue swelling of the right ankle. DIVISION OF RADIOLOGY Provider, [facility] - 06/03/2022 * * *Final Report* [...] AP/LAT/OBL RT -- RIGHT with 2 (accession [id number]), 3 (accession [id number]) views on 2 (accession [id number]), 3 (accession [id number]) images Comparison: None RESULT: Oblique fracture of the distal right fibula with approximately 3 mm displacement. No dislocation. Ankle mortise is maintained. Plantar calcaneal spur. Right knee prosthesis. Soft tissue swelling of the right ankle. IMPRESSION IMPRESSION: Oblique fracture of the distal right fibula Mammalogist: [facility] Transcribe Date/Time: Jun 03 2022 10:41A Dictated by : SREEKANTH PENDLETON MD This examination was interpreted and the report reviewed and electronically signed by: SREEKANTH PENDLETON MD on Jun 03 2022 10:43AM [facility] XR Tibia and Fibula - right [...] AP/LAT/OBL RT -- RIGHT with 2 (accession [id number]), 3 (accession [id number]) views on 2 (accession [id number]), 3 (accession [id number]) images Comparison: None RESULT: Oblique fracture of the distal right fibula with approximately 3 mm displacement. No dislocation. Ankle mortise is maintained. Plantar calcaneal spur. Right knee prosthesis. Soft tissue swelling of the right ankle. DIVISION OF RADIOLOGY Provider, [facility] - 06/03/2022 * * *Final Report* * [...] AP/LAT/OBL RT -- RIGHT with 2 (accession [id number]), 3 (accession [id number]) views on 2 (accession [id number]), 3 (accession [id number]) images Comparison: None RESULT: Oblique fracture of the distal right fibula with approximately 3 mm displacement. No dislocation. Ankle mortise is maintained. Plantar calcaneal spur. Right knee prosthesis. Soft tissue swelling of the right ankle. IMPRESSION IMPRESSION: Oblique fracture of the distal right fibula Mammalogist: [facility] Transcribe Date/Time: Jun 03 2022 10:41A Dictated by : SREEKANTH PENDLETON MD This examination was interpreted and the report reviewed and electronically signed by: SREEKANTH PENDLETON MD on Jun 03 2022 10:43AM EST [facility] Office Visit (Sleep Medicine )on 03-21-2022 Follow-up visit Diagnoses/Problems Assessed Obstructive sleep apnea, adult (327.23) (G47.33) Orders Obstructive sleep apnea, adult In Lab PSG Sleep Study, 6 years of age and greater; Status:Hold For - Scheduling; Requested for:21Mar2022; Perform:Sleep Lab - [place] [facility]; Order Comments:inspire titration study. Please start at 2.0V. do not use oral appliance during this study please.; Due:25Cth2308;Ordered; For:Obstructive sleep apnea, adult; Ordered By:Justin Dial; [...] or mask interface, please FIRST contact your [employer]. WIB can be reached at [phone]. For questions concerning your SLEEP CLINIC appointment: Call [phone] SLEEP LAB [phone] or [phone]. CAUTIONS for New PAP users: 1. You [...] Sites: For patients with ALL SLEEP DISORDERS: [place] Academy [employer] Sleep Medicine http://sleepeducation.org; or National Sleep Foundation: https://sleepfoundation.org For patients with ROSITA: [place] Sleep Apnea Association: https://www.sleepapnea.org For patients with RLS: RLS Foundation: https://www.rls.org For patients with INSOMNIA: https://www.helpguide.org/a rticles/sleep/insomnia-caus wc-cpq-hnrgv.htm For patients with DEPRESSION: http://www.unbrokenwings.co m/depression Provider [...] POSTPROC EVALon ANES POSTPROC EVAL HNO ID: [id number] Author: Wolfgang Carney MD Service: Anesthesiology Author Type: Physician Type: Anesthesia Postprocedure Evaluation Filed: 12/13/2021 12:49 PM Note Text: POST ANESTHESIA EVALUATION NOTE : 1940 Procedure Summary Date: 12/13/21 Room / Location: 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 ANES PRE-OPon 12-13-2021 ANES PRE-OP HNO ID: [id number] Author: Wolfgang Carney MD Service: Anesthesiology Author Type: Physician Type: Anesthesia Preprocedure Evaluation Filed: 12/13/2021 10:10 AM Note Text: ANESTHESIOLOGY DAY OF SURGERY NOTE : 1940 Procedure Information Date/Time: 12/13/21 1100 Scheduled providers: Chidi Burton MD; Norma Angel APRN.LEAF CONDITIONER HELPER; Wolfgang Carney MD Procedure: EGD DIAGNOSTIC Location: [facility] Endoscopy Estimated body mass index is [...] mg by mouth twice daily. - lancets (Vestor LANCETS) 30 gauge misc Use as directed to test glucose 3 times weekly. DX: E11.9 - dupilumab (DUPIXENT SUBCUTANEOUS) Inject subcutaneously as needed (taking every three weeks). 08/17/2021 reported taking every 3 weeks (Patient not taking: Reported on 12/02/2021 ) - cyanocobalamin, vitamin B-12, (VITAMIN B-12 INJECTION) by INJECTION(UNSPECIFIED PARENTERAL ROUTES) route once every month. - blood sugar diagnostic (EnergyWeb SolutionsTOUCH VERIO) test strip USE ONE STRIP TO CHECK GLUCOSE ONCE DAILY - ketoconazole (NIZORAL) 2 % shampoo Apply 1 application to affected area once daily as needed. - acyclovir (ZOVIRAX) 200 mg capsule Take 2 capsules by mouth twice daily. (suppressive therapy) (Patient not taking: Reported on 12/02/2021 ) - Blood-Glucose Meter (SeventymmUCH VERIO SYSTEM) misc Use as directed. No current facility-administered medications on file as of 12/13/2021. I have interviewed and examined the patient. I have reviewed the medical record and/or the pre-anesthesia evaluation, pertinent labs, and test results. This contains updated information obtained within 48 hours of Surgery/Procedure. SIGNATURE: Wolfgang Carney MD PATIENT NAME: Temo Garrison DATE: December 13, 2021 TIME: 10:09 AM CSN: [id number] Normal [facility] HISTORY PHYSICALon 2 HISTORY PHYSICAL HNO ID: [id number] Author: Chidi Burton MD Service: General Surgery [...] night. ? He is seeing someone in [place] [facility] because a steel wire in his [...] MEDICAL HISTORY (more content not included)... Normal [facility] SURGICAL PATHOLOGYon [address] [facility] Comment on above: Order Comment: Speci men Type: TISSUE SPECIMEN Ordering Facility: [facility] Address: [address] [place] [id number] Result Comment: Surg ica Pathology Report Case: [id number] Authorizing Provider: Chidi Burton MD Collected: 12/13/2021 11:25 AM Ordering Location: [facility] Endoscopy Received: 12/13/2021 01:42 PM Pathologist: Jose Alfredo Mcguire MD Specimens: A) - ANTRUM (STOMACH) BIOPSY B) - ESOPHAGUS BIOPSY, @40cm C) - ESOPHAGUS BIOPSY, @38cm Performed By: #### S #### [facility] CLIA [id number] CLIA [id number] [address] [place], [place] [address] [place] [address] CLINICAL HISTORY 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 [facility] Comment on above: Order Comment: Speci men Type: TISSUE SPECIMEN Ordering Facility: [facility] Address: [address] [place] [address] Performed By: #### S #### [facility] CLIA [id number] [address] [place], [place] [address]NA LABORATORY CLIA [id number] [address] FINAL DIAGNOSIS [facility] Comment on above: Order Comment: Spec men Type: TISSUE SPECIMEN Ordering Facility: [facility] Address: [address] [place] [address] Result Comment: A. A ntrum, biopsy: - Antral mucosa with foveolar hyperplasia and minimal chronic inflammation; no evidence of H. pylori. B. Esophagus, biopsy: - Fundic mucosa with minimal chronic inflammation; no evidence of intestinal metaplasia or dysplasia. C. Esophagus, biopsy: Inflamed squamous and cardiac-type mucosa with focal intestinal metaplasia; negative for dysplasia. Performed By: #### S #### [facility] CLIA [id number] [address] [place], [place] [address]NA LAB[facility]ATORY CLIA [id number] [address] FINAL PERFORMING LAB Normal [facility] Comment on above: Order Comment: Speci men Type: TISSUE SPECIMEN Ordering Facility: [facility] Address: [address] [place] [address] Result Comment: Diag nostic interpretation performed at [facility], [address] [facility], [place] [address] CLIA# [id number] Reference Archivist: Amairani Clark M.D. Performed By: #### S #### [facility] CLIA [id number] [address] [place], [place] [id number] [facility] CLIA [id number] [address] GROSS DESCRIPTION Normal [facility] Comment on above: Order Comment: Speci men Type: TISSUE SPECIMEN Ordering Facility: [facility] Address: [address] [place], [place] [id number] Result Comment: A. A NTRUM (STOMACH) BIOPSY. [...] 2021 8:05 PM Gross examination performed at [facility], [address] [place] [address] Performed By: #### S #### [facility] CLIA [id number] [address] [place] [place] [address] OF [facility] CLIA [id number] [address] 12-02-2021 [facility] Telephone (KESHIA) TEMO GARRISON ([id number]) 1940 M Date Time Provider Department 12/02/21 ROE COOK During your visit today, we recorded the following information about you: Roe Cook APRN.CNP 12/02/2021 12:23 PM Signed Patient [facility] [facility] for upcoming EGD on 12/13 with . 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 Does patient need to hold this for 3 days prior to surgery? Roe Cook APRN.CNP 12/02/2021 3:50 PM Signed Please call and relay message below to patient. Thanks! Roe Cook APRN.MOSAIC TILE MAKER Chidi Burton MD You 21 minutes ago [...] Date Reviewed: 12/02/2021 Reviewed by: Roe Cook APRN.MOSAIC TILE MAKER - Fully Assessed Reason for Visit: Patient [...] mouth once daily. - blood sugar diagnostic (SeventymmUCH VERIO) test strip USE ONE STRIP TO [...] twice daily. (suppressive therapy) - Blood-Glucose Meter (SeventymmUCH VERIO SYSTEM) misc Use as directed. - [...] obstruction [N32.0] 05/28/2007 01/03/2014 Postoperative urethral stricture [[id number]] 11/26/2007 01/03/2014 Cellulitis and abscess of toe, [...] thrombosis) ( (more content not included)... Normal [facility] HISTORY PHYSICALon HISTORY PHYSICAL HNO ID: [id number] Author: Roe Cook APRN.MOSAIC TILE MAKER Service: ? Author Type: Nurse Practitioner Type: [...] of hemorrhage) - DVT (deep venous thrombosis) ([facility]) 08/06/2020 - Essential tremor - External hemorrhoids [...] complication, without long-term current use of insulin ([facility]) 06/07/[address] 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 Normal [facility] Tobacco Screening.on Fall risk assessment a) No falls within the last year [facility] [facility] DO Work Phone: [phone] Tobacco use status CPHS b) No [facility] [facility] DO Work Phone: [phone] ARTERIAL BLOOD GASon 12-14-2 021 BASE EXCESS-BLOOD 6.1 mmol/L High -2.0 - 3.0 [facility] Comment on above: Performed By: #### B LGA1 #### [place] [address] BICARB, CALCULATED 29.6 mmol/L High 22.0 - 26.0 [facility] Comment on above: Performed By: #### Gianni LGA1 #### [place] [address] FIO2 21 % Normal [facility] Comment on above: Performed By: #### Gianni LGA1 #### [place] [address] Oxygen (Bld) [Partial pressure] 93 mm[Hg] Normal 85 - 95 [facility] Comment on above: Performed By: #### Gianni LGA1 #### [place] [address] PCO2 38 mmHg Normal 38 - 42 [facility] Comment on above: Performed By: #### Gianni LGA1 #### [place] [address] pH (Bld) 7.50 [pH] High 7.38 - 7.42 [facility] Comment on above: Performed By: #### Gianni LGA1 #### [place] [address] SO2 99 % Normal 94 - 100 [facility] Comment on above: Performed By: #### Gianni LGA1 #### [place] [address] COOX PANEL, ARTERIALon 09-28 CO HGB 1.6 % Abnormal [facility] Comment on above: Result Comment: REF VALUES NONSMOKERS 0.5-1.5% SMOKERS 0.5-10.0% Performed By: #### C OOXA #### [place] [address] DEOXY HGB 1.5 % Normal 0.0 - 5.0 [facility] Comment on above: Performed By: #### C OOXA #### [place] [id number] Hemoglobin (Bld) [Mass/Vol] 15.0 g/dL Normal 13.5 - 17.5 [facility] Comment on above: Performed By: #### C OOXA #### [address] [address] MET HGB 0.6 % Normal 0.0 - 1.5 [facility] Comment on above: Performed By: #### C OOXA #### [address] [address] OXY HGB 96.3 % Normal 94.0 - 98.0 [facility] Comment on above: Performed By: #### C OOXA #### [address] [address] Laboratory - Chemistry and C hemistry - [...] make patient management decisions.Fact sheet for providers: https://www.fda.gov/media/292657/downloadFact sheet for patients: https://www.fda.gov/media/500265/downloadThis test has received FDA Emergency Use Authorization (EUA) and has been verified by [facility] ([facility]). This test is only authorized for the duration of time that circumstances exist to justify the authorization of the emergency use of in vitro diagnostic tests for the detection of SARS-CoV-2 virus and/or diagnosis of COVID-19 infection under section 564(b)(1) of the Act, 21 U.S.C. 360bbb-3(b)(1), unless the authorization is terminated or revoked sooner. [facility] is certified under CLIA-88 as qualified to perform high complexity testing. Testing is performed in the [facility] laboratories located at [address] [place] [address]. Tobacco Screening.on Fall risk assessment b) One [...] 021 METHYLMALONIC ACID 170 nmol/L Normal 0-378 [facility] Comment on above: Result Comment: This test was developed and its performance characteristics determined by [facility]. It has not been cleared or approved by the Food and Drug Administration. Performed By: #### M HERIBERTO #### [facility] [address] [place], [place] [id number] TRIIODOTHYRONINEon 1 TRIIODOTHYRONINE 88 ng/dL Normal 60 - 200 [facility] Comment on above: Performed By: #### T 3 #### [facility] [address] [place] [address] CBC AND DIFFERENTIALon 07-22 Basophils (Bld) [#/Vol] 0.10 10*3/uL Normal 0.00 - 0.10 [facility] Comment on above: Performed By: #### C BCDF #### [address] [address] Basophils/100 WBC (Bld) 0.7 % Normal 0.0 - 2.0 [facility] Comment on above: Performed By: #### C BCDF #### [address] [address] Eosinophils (Bld) [#/Vol] 0.10 10*3/uL Normal 0.00 - 0.40 [facility] Comment on above: Performed By: #### C BCDF #### [address] [address] Eosinophils/100 WBC (Bld) 2.0 % Normal 0.0 - 6.0 [facility] Comment on above: Performed By: #### C BCDF #### [address] [address] Erythrocyte distribution width (RBC) [Ratio] 14.0 % Normal 11.5 - 14.5 [facility] Comment on above: Performed By: #### C BCDF #### [address] [address] Hematocrit (Bld) [Volume fraction] 42.1 % Normal 41.0 - 52.0 [facility] Comment on above: Performed By: #### C BCDF #### [address] [address] Hemoglobin (Bld) [Mass/Vol] 13.8 g/dL Normal 13.5 - 17.5 [facility] Comment on above: Performed By: #### C BCDF #### [address] [address] Lymphocytes (Bld) [#/Vol] 1.60 10*3/uL Normal 0.80 - 3.00 [facility] Comment on above: Performed By: #### C BCDF #### [address] [address] Lymphocytes/100 WBC (Bld) 22.4 % Normal 13.0 - 44.0 [facility] Comment on above: Performed By: #### C BCDF #### [address] [address] MCHC (RBC) [Mass/Vol] 32.7 g/dL Normal 32.0 - 36.0 [facility] Comment on above: Performed By: #### C BCDF #### [address] [address] MCV (RBC) [Entitic vol] 101 fL High 80 - 100 [facility] Comment on above: Performed By: #### C BCDF #### [address] [address] Monocytes (Bld) [#/Vol] 0.60 10*3/uL Normal 0.05 - 0.80 [facility] Comment on above: Performed By: #### C BCDF #### [address] [address] Monocytes/100 WBC (Bld) 7.6 % Normal 2.0 - 10.0 [facility] Comment on above: Performed By: #### C BCDF #### [address] [address] Neutrophils (Bld) [#/Vol] 4.90 10*3/uL Normal 1.60 - 5.50 [facility] Comment on above: Result Comment: Perc ent differential counts (%) should be interpreted in the context of the absolute cell counts (cells/L). Performed By: #### C BCDF #### [address] [address] Neutrophils/100 WBC (Bld) 67.3 % Normal 40.0 - 80.0 [facility] Comment on above: Performed By: #### C BCDF #### [address] [address] NUCLEATED RBC 0.1 /100 WBC Normal [facility] Comment on above: Performed By: #### C BCDF #### [address] [address] Platelets (Bld) [#/Vol] 223 10*3/uL Normal 150 - 450 [facility] Comment on above: Performed By: #### C BCDF #### [address] [address] RBC 4.16 x10E12/L Low 4.50 - 5.90 [facility] Comment on above: Performed By: #### C BCDF #### [address] [address] WBC (Bld) [#/Vol] 7.2 10*3/uL Normal 4.4 - 11.3 [facility] Comment on above: Performed By: #### C BCDF #### [place] [id number] COMPREHENSIVE PANELon 2020 ALP [Catalytic activity/Vol] 68 U/L Normal 33 - 136 [facility] Comment on above: Performed By: #### C MP #### [address] [address] Albumin [Mass/Vol] 3.8 g/dL Normal 3.4 - 5.0 [facility] Comment on above: Performed By: #### C MP #### [address] [address] ALT [Catalytic activity/Vol] 21 U/L Normal 10 - 52 [facility] Comment on above: Result Comment: Page ents treated with Sulfasalazine may generate falsely decreased results for ALT. Performed By: #### C MP #### [address] [address] Anion gap [Moles/Vol] 10 mmol/L Normal 10 - 20 [facility] Comment on above: Performed By: #### C MP #### [address] [address] AST [Catalytic activity/Vol] 19 U/L Normal 9 - 39 [facility] Comment on above: Performed By: #### C MP #### [address] [address] Bilirubin [Mass/Vol] 0.5 mg/dL Normal 0.0 - 1.2 [facility] Comment on above: Performed By: #### C MP #### [address] [address] Calcium [Mass/Vol] 8.7 mg/dL Normal 8.6 - 10.3 [facility] Comment on above: Performed By: #### C MP #### [address] [address] Chloride [Moles/Vol] 104 mmol/L Normal 98 - 107 [facility] Comment on above: Performed By: #### C MP #### [address] [address] Creatinine [Mass/Vol] 1.74 mg/dL High 0.50 - 1.30 [facility] Comment on above: Performed By: #### C MP #### [address] [address] GFR- AM. 46 mL/min/1.73m2 Abnormal >60 [facility] Comment on above: Result Comment: CALC ULATIONS OF ESTIMATED GFR ARE PERFORMED USING THE MDRD STUDY EQUATION FOR THE IDMS-TRACEABLE CREATININE METHODS. CLIN CHEM 2007;53:766-72 Performed By: #### C MP #### [address] [address] GFR-NON AM. 38 mL/min/1.73m2 Abnormal >60 [facility] Comment on above: Performed By: #### C MP #### [address] [address] Glucose [Mass/Vol] 136 mg/dL High 74 - 99 [facility] Comment on above: Performed By: #### C MP #### [address] [address] HCO3 (Bld) [Moles/Vol] 29 mmol/L Normal 21 - 32 [facility] Comment on above: Performed By: #### C MP #### [address] [address] Potassium [Moles/Vol] 4.3 mmol/L Normal 3.5 - 5.3 [facility] Comment on above: Performed By: #### C MP #### [address] [address] Protein [Mass/Vol] 6.2 g/dL Low 6.4 - 8.2 [facility] Comment on above: Performed By: #### C MP #### [address] [address] Sodium [Moles/Vol] 139 mmol/L Normal 136 - 145 [facility] Comment on above: Performed By: #### C MP #### [address] [address] Urea nitrogen [Mass/Vol] 25 mg/dL High 6 - 23 [facility] Comment on above: Performed By: #### C MP #### [address] [address] Complete Blood Count + Diffamerica dwyer 07-22-2021 Basophils/100 WBC (Bld) 0.7 % 0.0 - 2.0 [facility] [facility] Work Phone: Erythrocyte distribution width (RBC) [Ratio] 14.0 % See Below -[facility] [facility] Work Phone: Comment on above: Reference Range: 11. 5 - 14.5 Hematocrit (Bld) [Volume fraction] 42.1 % See Below -[facility] [facility] Work Phone: Comment on above: Reference Range: 41. 0 - 52.0 Hemoglobin (Bld) [Mass/Vol] 13.8 g/dL See Below -[facility] [facility] Work Phone: Comment on above: Reference Range: 13. 5 - 17.5 Lymphocytes/100 WBC (Bld) 22.4 % See Below -[facility] [facility] Work Phone: Comment on above: Reference Range: 13. 0 - 44.0 MCHC (RBC) [Mass/Vol] 32.7 g/dL See Below -[facility] [facility] Work Phone: Comment on above: Reference Range: 32. 0 - 36.0 MCV (RBC) [Entitic vol] 101 fL above high threshold 80 - 100 [facility] [address] Work Phone: Monocytes/100 WBC (Bld) 7.6 % 2.0 - 10.0 [facility] [facility] Work Phone: Neutrophils/100 WBC (Bld) 67.3 % See Below [facility] [facility] Work Phone: Comment on above: Reference Range: 40. 0 - 80.0 Platelets (Bld) [#/Vol] 223 10*3/uL 150 - 450 [facility] [facility] Work Phone: RBC (Bld) [#/Vol] 4.16 {x10E12/L} below low threshold See Below [facility] [facility] Work Phone: Comment on above: Reference Range: 4.5 0 - 5.90 WBC (Bld) [#/Vol] 7.2 10*3/uL 4.4 - 11.3 [facility] [address] Work Phone: Complete Blood Count + Differential 0.10 {x10E9/L} See Below [facility] [facility] Work Phone: Comment on above: Reference Range: 0.0 0 - 0.10 Reference Range: 0.0 0 - 0.40 Complete Blood Count + Differential 0.60 {x10E9/L} See Below [facility] [facility] Work Phone: Comment on above: Reference Range: 0.0 5 - 0.80 Complete Blood Count + Differential 1.60 {x10E9/L} See Below [facility] [facility] Work Phone: Comment on above: Reference Range: 0.8 0 - 3.00 Complete Blood Count + Differential 4.90 {x10E9/L} See Below [facility] [facility] Work Phone: Comment on above: Reference Range: 1.6 0 - 5.50 Percent differential counts (%) should be interpreted in the context of the absolute cell counts (cells/L). Complete Blood Count + Differential 2.0 % 0.0 - 6.0 [facility] 204 Work Phone: Complete Blood Count + Differential 0.1 {/100_WBC} [facility] Work Phone: FOLATE, SERUMon 07-22-2021 Folate [Mass/Vol] 9.6 ng/mL Normal >5.0 [facility] Comment on above: Result Comment: Low <3.4 Borderline 3.4-5.0 Normal >5.0 . Patients receiving more than 5 mg/day of biotin may have interference in test results. A sample should be taken no sooner than eight hours after previous dose. Contact the testing laboratory for additional information. Performed By: #### F OLA2 #### [address] [address] Folate, Serumon 07-22-2021 Folate [Mass/Vol] 9.6 ng/mL >5.0 [facility] Work Phone: Comment on above: Low <3.4Borderline 3 .4-5.0Normal >5.0. Patients receiving more than 5 mg/day of biotin may have interference in test results. A sample should be taken no sooner than eight hours after previous dose. Contact the testing laboratory for additional information. IRON + TIBCon 07-22-2021 % SATURATION 51 % High 25 - 45 [facility] Comment on above: Performed By: #### I RONT #### [address] [address] Iron [Mass/Vol] 132 ug/dL Normal 35 - 150 [facility] Comment on above: Performed By: #### I RONT #### [address] [address] TIBC 258 ug/dL Normal 240 - 445 [facility] Comment on above: Performed By: #### I RONT #### [address] [place] [address] Laboratory - Chemistry and C hemistry - challengeon 07-22-2021 Albumin BCP dye [Mass/Vol] 3.8 g/dL 3.4 - 5.0 [facility] [facility] Work Phone: ALP [Catalytic activity/Vol] 68 U/L 33 - 136 [facility] [facility] Work Phone: ALT With P-5'-P [Catalytic activity/Vol] 21 U/L 10 - 52 [facility] [facility] Work Phone: Comment on above: Patients treated wit h Sulfasalazine may generate falsely decreased results for ALT. Anion gap [Moles/Vol] 10 mmol/L 10 - 20 [facility] [facility] Work Phone: AST With P-5'-P [Catalytic activity/Vol] 19 U/L 9 - 39 [facility] [facility] Work Phone: Bilirubin [Mass/Vol] 0.5 mg/dL 0.0 - 1.2 [facility] 204 Work Phone: Calcium [Mass/Vol] 8.7 mg/dL 8.6 - 10.3 [facility] Work Phone: Chloride [Moles/Vol] 104 mmol/L 98 - 107 [facility] 204 Work Phone: CO2 [Moles/Vol] 29 mmol/L 21 - 32 [facility] [facility] Work Phone: Creatinine [Mass/Vol] 1.74 mg/dL above high threshold See Below [facility] 204 Work Phone: Comment on above: Reference Range: 0.5 0 - 1.30 Glucose [Mass/Vol] 136 mg/dL above high threshold 74 - 99 [facility] [facility] Work Phone: Iron [Mass/Vol] 132 ug/dL 35 - 150 [facility] 204 Work Phone: Iron binding capacity [Mass/Vol] 258 ug/dL 240 - 445 [facility] [facility] Work Phone: Potassium [Moles/Vol] 4.3 mmol/L 3.5 - 5.3 [facility] [facility] Work Phone: Protein [Mass/Vol] 6.2 g/dL below low threshold 6.4 - 8.2 [facility] [facility] Work Phone: Sodium [Moles/Vol] 139 mmol/L 136 - 145 [facility] [facility] Work Phone: Urea nitrogen [Mass/Vol] 25 mg/dL above high threshold 6 - 23 [facility] [facility] Work Phone: Methylmalonic Acid, Serumon 07-22-2021 Methylmalonate [Moles/Vol] 170 nmol/L 0-378 [facility] [facility] Work Phone: Comment on above: This test was develo ped and its performance characteristicsdetermined by [facility]. It has not been cleared or approvedby the Food and Drug Administration. No Panel Informationon 07-22 46 {mL/min/1.73m2} Abnormal >60 [facility] [facility] Work Phone: Comment on above: CALCULATIONS OF CLEMENTINE MATED GFR ARE PERFORMED USING THE MDRD STUDY EQUATION FOR THE IDMS-TRACEABLE CREATININE METHODS. CLIN CHEM 2007;53:766-72 38 {mL/min/1.73m2} Abnormal >60 [facility] [address] Work Phone: 51 % above high threshold 25 - 45 [facility] [facility] Work Phone: Triiodothyronine, Level (T3) on 07-22-2021 T3 [Mass/Vol] 88 ng/dL 60 - 200 [facility] [facility] Work Phone: VITAMIN B12on 10-07-2021 Cobalamin (Vitamin B12) [Mass/Vol] 352 pg/mL Normal 211 - 911 [facility] Comment on above: Performed By: #### V TB12 #### [facility] [address] [place] [address] Vitamin B12, Serumon 021 Cobalamin (Vitamin B12) [Mass/Vol] 352 pg/mL 211 - 911 -[facility] [facility] Work Phone: Surgical Pathologyon 837 Surgical Pathology [id number] [facility] PATHOLOGY AND LABORATORY MEDICINE [address] [place] [id number] FINAL SURGICAL PATHOLOGY REPORT [facility] E: TEMO GARRISON .O.B.: 1940 77 Y M [facility] NO.: [id number] PROCEDURE 10/04/2018 DATE:SURGEON: ASIYA CASTRO MD RECEIVED 10/05/2018 DATE:ATTENDING: ASIYA CASTRO MD REPORT DATE: 10/11/2018 COPIES TO: DIAGNO SIS:SKIN, LEFT ANTERIOR SHOULDER, PUNCH (DIF) - NEGATIVE DIRECTIMMUNOFLUORESCENCECom ment: Direct antibody localization demonstrates no evidence ofimmunoreactivity for immunoglobulins IgG, IgM, IgA, complement C3, orfibrinogen on sections of frozen skin.CAROLANN/ACROLANN RIVAS M.D. [facility] INFORMATION: Tense bullae and erosions. Bullous pemphigoid.SPECIMEN: SKIN GROSS DESCRIPTION: Left anterior shoulder Received in polytransport media is a 0.2 cm apparent punch biopsy oftan-marmolejo skin. Specimen submitted entirely for directimmunofluorescence. (1 ns, 1) MLC1/MCDDisclaimer: The following statement applies to allimmunohistochemistry, in situ hybridization, molecular studies, andimmunofluorescence testing.The use of one or more reagents in the above tests is regulated as ananalyte specific reagent (ASR). These tests were developed and theirperformance characteristics determined by the clinical laboratories [facility]. They have not been cleared by the [...] false negativity on decalcified specimens.Professional Performing Location: [address] [address]. DEPARTMENT OF PATHOLOGY AND LABORATORY MEDICINE [place], [place] [address] Normal [facility] Pain Management Consultation Noteon 11-02-2017 Pain Management Consultation Note Normal [facility] ([place]) Vital Signs Date Time Vital Sign Value Performing Clinician Facility 05-30-2023 12:47-0400 Body height 172.7 cm Marlon Chapin MD Work Phone: [facility] 05-30-2023 12:47-0400 Body mass index (BMI) [Ratio] 27.06 kg/m2 Marlon Chapin MD Work Phone: [facility] 05-30-2023 12:47-0400 Body temperature 96.91 [degF] Marlon Chapin MD Work Phone: [facility] 05-30-2023 12:47-0400 Body weight 80.74 kg Marlon Chapin MD Work Phone: [facility] 05-30-2023 12:47-0400 Heart rate 62 /min Marlon Chapin MD Work Phone: [facility] 05-30-2023 12:47-0400 SaO2% (BldA) [Mass fraction] 97 % Marlon Chapin MD Work Phone: [facility] 05-18-2023 15:22-0400 Body height 172.7 cm Belén [place] PA-C Work Phone: [facility] 05-18-2023 15:22-0400 Body temperature 97.3 [degF] Belén Dolores PA-C Work Phone: [facility] 05-18-2023 15:22-0400 Body weight 81.65 kg Belén [place] PA-C Work Phone: [facility] 05-18-2023 15:22-0400 Diastolic blood pressure 82 mm[Hg] Belén [place] PA-C Work Phone: [facility] 05-18-2023 15:22-0400 Heart rate 104 /min Belén Dolores PA-C Work Phone: [facility] 05-18-2023 15:22-0400 SaO2% (BldA) [Mass fraction] 99 % Belén Dolores PA-C Work Phone: [facility] 05-18-2023 15:22-0400 Systolic blood pressure 136 mm[Hg] Belén Dolores PA-C Work Phone: [facility] 02-27-2023 15:01-0400 Diastolic blood pressure 83 mm[Hg] Monserrat Cross Miedel Work Phone: [facility] A2470 DO Work Phone: 02-27-2023 15:01-0400 Heart rate 84 /min Monserrat Cross Miedel Work Phone: [facility] A2470 DO Work Phone: 02-27-2023 15:01-0400 Respiratory rate 18 /min Monserrat Cross Miedel Work Phone: [facility] A2470 DO Work Phone: 02-27-2023 15:01-0400 Systolic blood pressure 124 mm[Hg] Monserrat Cross Miedel Work Phone: [facility] A2470 DO Work Phone: 11-21-2022 15:02-0500 Body height 173.99 cm Monserrat Cross Miedel Work Phone: [facility] 2300 Work Phone: 11-21-2022 15:02-0500 Body mass index (BMI) [Ratio] 25.92 kg/m2 Monserrat Cross Miedel Work Phone: [facility] 2300 Work Phone: 11-21-2022 15:02-0500 Body surface [...] /min Monserrat Cross Miedel Work Phone: [facility] 2300 Work Phone: 11-21-2022 15:02-0500 Respiratory rate [...] kg Monserrat Cross Miedel Work Phone: [facility] A2470 DO Work Phone: 12-16-2021 16:12-0500 Diastolic blood pressure 93 mm[Hg] Monserrat Cross Miedel Work Phone: [facility] A2470 DO Work Phone: 12-16-2021 16:12-0500 Heart rate 83 /min Monserrat Cross Miedel Work Phone: [facility] A2470 DO Work Phone: 12-16-2021 16:12-0500 SaO2% (BldA) [Mass fraction] 98 % Monserrat Cross Miedel Work Phone: [facility] A2470 DO Work Phone: 12-16-2021 16:12-0500 Systolic blood pressure 132 mm[Hg] Monserrat Cross Miedel Work Phone: [facility] A2470 DO Work Phone: 12-16-2021 16:12-0500 0 1 Monserrat Domingoedel Work Phone: [facility] A2470 DO Work Phone: Comment on above: [facility] 10-14-2021 09:08-0500 Body height 175.26 cm Monserrat Domingoedel Work Phone: [facility] 400 DO Work Phone: 10-14-2021 09:08-0500 Body mass index (BMI) [Ratio] 27.26 kg/m2 Monserrat America Chayoedel Work Phone: [facility] 400 DO Work Phone: 10-14-2021 09:08-0500 Body surface area Derived from formula 2 m2 Monserrat Domingoedel Work Phone: [facility] 400 DO Work Phone: 10-14-2021 09:08-0500 Body temperature 98.6 [degF] Monserrat Cross Miedel Work Phone: [facility] 400 DO Work Phone: 10-14-2021 09:08-0500 Body weight 83.73 kg Monserrat Cross Miedel Work Phone: [facility] 400 DO Work Phone: 10-14-2021 09:08-0500 Diastolic blood pressure 66 mm[Hg] Monserrat Cross Miedel Work Phone: [facility] 400 DO Work Phone: 10-14-2021 09:08-0500 Heart rate 88 /min Monserrat Domingoedel Work Phone: [facility] 400 DO Work Phone: 10-14-2021 09:08-0500 SaO2% (BldA) [Mass fraction] 98 % Monserrat Domingoedel Work Phone: [facility] 400 DO Work Phone: 10-14-2021 09:08-0500 Systolic blood pressure 132 mm[Hg] Monserrat Cross Miedel Work Phone: [facility] 400 DO Work Phone: 09-15-2021 09:07-0500 Body height 175.26 cm Monserrat Cross Miedel Work Phone: [facility] 400 DO Work Phone: 09-15-2021 09:07-0500 Body mass index (BMI) [Ratio] 27.5 kg/m2 Monserrat Cross Miedel Work Phone: [facility] [facility] 400 DO Work Phone: 09-15-2021 09:07-0500 Body surface area Derived from formula 2 m2 Monserrat Wilson Work Phone: [facility] 400 DO Work Phone: 09-15-2021 09:07-0500 Body temperature 97.7 [degF] Monserrat Domingoedyaw Work Phone: [facility] 400 DO Work Phone: 09-15-2021 09:07-0500 Body weight 84.48 kg Monserrat Wilson Work Phone: [place] [address] DO Work Phone: 09-15-2021 09:07-0500 Diastolic blood pressure 76 mm[Hg] Monserrat Domingoedyaw Work Phone: [place] [address] DO Work Phone: 09-15-2021 09:07-0500 Heart rate 68 /min Monserrat Wilson Work Phone: [place] [address] DO Work Phone: 09-15-2021 09:07-0500 SaO2% (BldA) [Mass fraction] 83 % Monserrat Wilson Work Phone: [place] [address] DO Work Phone: 09-15-2021 09:07-0500 Systolic blood pressure 134 mm[Hg] Monserrat Wilson Work Phone: [place] [address] DO Work Phone: 09-02-2021 10:50-0500 Body height 175.26 cm Monserrat Wilson Work Phone: [facility] 205 [place] Work Phone: 09-02-2021 10:50-0500 Body mass index (BMI) [Ratio] 27.58 kg/m2 Monserrat Domingoedyaw Work Phone: -Otolaryngology -[place] 205 [place] Work Phone: 09-02-2021 10:50-0500 Body surface area Derived from formula 2.01 m2 Monserrat Wilson Work Phone: -Otolaryngology -[place] 205 [place] Work Phone: 09-02-2021 10:50-0500 Body temperature 97.5 [degF] Monserrat Wilson Work Phone: -Otolaryngology -[place] Work Phone: 09-02-2021 10:50-0500 Body weight 84.7 kg Monserrat Wilson Work Phone: -Otolaryngology -[place] Work Phone: 09-02-2021 10:50-0500 Heart rate 83 /min Monserrat Wilson Work Phone: -Otolaryngology -[place] Work Phone: 09-02-2021 10:50-0500 SaO2% (BldA) [Mass fraction] 96 % Monserrat Wilson Work Phone: -Otolaryngology -[place] Work Phone: Encounters Encounter Date Encounter Type Care Provider Facility Start: 10-04-2023 End: 10-04-2023 ambulatory MALICK AL Facility:[facility] Start: 10-04-2023 End: 10-04-2023 Subsequent hospital visit by physician Xr [facility]ly [facility] Pao Work Phone: Radiology Comment on above: Acute cough [R05.1] Start: 09-13-2023 Refill Chidi schaffer MD Work Phone: General Surgery Comment on above: Refill Request Start: 06-08-2023 End: 06-08-2023 ambulatory CHIDI BURTON Facility:[facility] Start: 06-08-2023 End: 06-08-2023 Patient encounter procedure Chidi Burton MD Work Phone: General Surgery Comment on above: Bright red blood per rectum (Primary Dx); Hemorrhoids, internal Start: 05-30-2023 ambulatory MARLON Danielson ty: Start: 05-30-2023 End: 05-30-2023 Office outpatient new 30 minutes Marlon Chapin MD Work Phone: [facility] Comment on above: Other chronic pain Start: 05-18-2023 End: 05-18-2023 ambulatory MONSERRAT WILSON Facility:[facility] Start: 05-18-2023 End: 05-18-2023 Patient encounter procedure Belén Reyes PA-C Work Phone: General Surgery Comment on above: Bright red blood per rectum (Primary Dx); Hemorrhoids, internal Start: 04-11-2023 ambulatory MARLON CHAPIN Facility : Start: 02-27-2023 Current tobacco non-user cad cap copd pv dm Monserrat Wilson [facility] Work Phone: Start: 02-27-[address] Monserrat Wilson Facility:[id number] Start: 02-17-2023 Refill Roberto Younger i, MD Work Phone: Gastroenterology Comment on above: Refill Request Start: 02-15-2023 Telephone encounter [facility] Provider Vas cular Medicine Comment on above: Appointment Start: 11-21-2022 Current tobacco non-user cad cap copd pv dm Monserrat Wilson Work Phone: [facility] 230 Work Phone: Start: 11-21-2022 ambulatory Justin Dial Facilit y:[id number] Start: 11-01-2022 Rx Renewal Monserrat Cruz l Work Phone: XJ-Pfrgbasfr-Yiekq 204 Work Phone: Start: 10-17-2022 ambulatory Nardine Zakhary Facilit y:[facility] Start: 08-26-2022 Telephone encounter Carol Tranjaciel BANKS.HAKAN Work Phone: Gastroenterology Comment on above: Patient Update; Page ent Question Start: 08-03-2022 Refill Carol Tran APR N.MOSAIC TILE MAKER Work Phone: Gastroenterology Comment on above: Refill Request Start: 06-03-2022 End: 06-03-2022 Subsequent hospital visit by physician Xr [facility]ly [facility] Crowder Work Phone: Radiology Comment on above: Lower extremity inju ry, right, initial encounter [S89.91XA] Start: 05-14-2022 ambulatory Wilner Stuart Work Phone: Hematology/Oncology Comment on above: Eliquis Start: 05-12-2022 ambulatory Nardine Zakhary Facilit y:[facility] Start: 03-21-2022 ambulatory Nardine Zakhary Facilit y:[id number] Start: 01-05-2022 End: 01-05-2022 ambulatory Carol Tran NIB FINISHER.MOSAIC TILE MAKER Work Phone: Gastroenterology Comment on above: History of Small's esophagus (Primary Dx) Start: 01-05-2022 End: 01-05-2022 Telemedicine consultation with patient Carol Tran APRN.HAKAN Work Phone: [facility] Start: 12-16-2021 Current tobacco non-user cad cap copd pv dm Monserrat Wilson Work Phone: [facility] A2470 DO Work Phone: Start: 11-19-2021 Telephone encounter Chidi Burton MD Work Phone: General Surgery Comment on above: EGD; Procedure Follo w Up (EGD completed on 12/13/2021) Start: 10-14-2021 Office outpatient visit 15 minutes Monserrat Wilson Work Phone: MP-Pulmonary Medicine[facility] 400 DO Work Phone: Start: 10-01-2021 Chart Update Monserrat Cross Miede l Work Phone: [facility] 400 DO Work Phone: Start: 09-15-2021 Office consultation new/estab patient 80 min Monserrat E Miedel Work Phone: [facility] 400 DO Work Phone: Start: 09-15-2021 Office outpatient ne w 60 minutes Monserrat Cross Miedel Work Phone: [facility] 400 DO Work Phone: Start: 09-15-2021 Patient encounter procedure Monserrat America Domingoedel Work Phone: [facility] 400 DO Work Phone: Start: 09-02-2021 Current tobacco non-user cad cap copd pv dm Monserrat E Miedel Work Phone: KX-Jakykyzwwrrbei-Ythrw 205 [place] Work Phone: Start: 08-30-2021 AUDIT Monserrat E Miede l Work Phone: KB-Fjadvzqez-Cless 204 Work Phone: Start: 08-27-2021 AUDIT Monserrat E Miede l Work Phone: OU-Lrhwwqxij-Ahlua 204 Work Phone: Start: 07-28-2021 Chart Update Monserrat E Miede l Work Phone: MU-Hvvggnqzo-Zajab 204 Work Phone: Start: 07-23-2021 Chart Update Monserrat E Miede l Work Phone: ZQ-Jzpzcaigr-Dwpxz 204 Work Phone: Start: 07-16-2021 Phys/qhp telephone evaluation 11-20 min Monserrat Tysonyaw Work Phone: ZN-Vdrhhcmjh-Iirva 204 Work Phone: Start: 06-11-2021 AUDIT Monserrat Tysone l Work Phone: MS-Sarsorceq-Iwbsa 204 Work Phone: Start: 03-08-2021 AUDIT Monserrat Domingoede l Work Phone: [facility] 204 Work Phone: Start: 12-07-2020 End: 12-07-2020 Patient encounter procedure [facility] Start: 11-12-2020 End: 11-12-2020 Patient encounter procedure [facility] Start: 10-04-2018 Patient encounter procedure [facility] Start: 12-19-2017 Ambulatory [facility] Facility [facility] Start: 10-30-2017 Ambulatory RHINA WALTER [facility] ility:A Procedures Date Procedure Procedure Detail Performing [...] Author Start: 08-18-2029 Tetanus vaccination TETANUS [facility] Start: 08-18-2029 Urine microalbumin profile DTaP,Tdap,Td Vaccine (4 - Td or Tdap) [facility] Start: 06-16-2024 Covid-19 Vaccine ( season) Covid-19 Vaccine () [facility] Start: 06-16-2024 Covid-19 Vaccine () Covid-19 Vaccine () [facility] Start: 06-16-2024 Influenza vaccination Influenz a Vaccine (#1) [facility] Start: 10-16-2023 Advance Directive Discussion Advance Directive Discussion [facility] Start: 06-16-2023 Covid-19 Vaccine () Covid-19 Vaccine () [facility] Start: 06-16-2023 Influenza vaccination C [facility] Start: 11-13-2022 COVID-19 VACCINE (6 - Pfizer series) COVID-19 VACCINE (6 - Pfizer series) [facility] Start: 10-16-2022 ADVANCE DIRECTIVE DISCUSSION ADVANCE DIRECTIVE DISCUSSION [facility] Start: 10-16-2022 DEPRESSION ASSESSMENT DEPRESSION ASS ESSMENT [facility] Start: 06-16-2022 Influenza vaccination INFLUENZA (#1) [facility] Start: 11-14-2021 COVID-19 VACCINE (4 - Booster for Pfizer series) COVID-19 VACCINE (4 - Booster for Pfizer series) [facility] Start: 11-01-2021 NPVSLEEP, Provider: Justin Dial, Status: Pen, Time: 4:00 PM NPVSLEEP, Provider: Justin Dial, Status: Pen, Time: 4:00 PM MW-Kivwnynxqfyynj-Paq ma MAC1 205 [place] Work Phone: Start: 11-01-2021 FUVGENERAL, Provider : Malick Weber, Status: Pen, Time: 9:00 AM DIVINA, Provider: Malick Weber, Status: Pen, Time: 9:00 AM -[place]ulmonary [place] [address] [place] Work Phone: Start: 10-16-2021 ADVANCE DIRECTIVE DISCUSSION ADVANCE DIRECTIVE DISCUSSION [facility] Start: 10-16-2021 DEPRESSION ASSESSMENT DEPRESSION ASS ESSMENT [facility] Start: 10-14-2021 FUV, Provider: Temo Huitron, Status: Pen, Time: 9:00 AM FUV, Provider: Temo Huitron, Status: Pen, Time: 9:00 AM [facility] 400 DO Work Phone: Start: 09-28-2021 PFT, Provider: [facility] PFT ROOM,[id number], Status: Pen, Time: 10:00 AM PFT, Provider: [facility] PFT ROOM,[id number], Status: Pen, Time: 10:00 AM [facility] 400 DO Work Phone: Start: 09-15-2021 NPV, Provider: Temo Huitron, Status: Pen, Time: 9:00 AM NPV, Provider: Temo Huitron, Status: Pen, Time: 9:00 AM [facility] Work Phone: Start: 09-02-2021 NPV, Provider: Florina Segovia, Status: Pen, Time: 10:40 AM NPV, Provider: Florina Segovia, Status: Pen, Time: 10:40 AM [facility] 204 Work Phone: Start: 08-05-2021 NPV, Provider: Florina Segovia, Status: Pen, Time: 10:20 AM NPV, Provider: Florina Segovia, Status: Pen, Time: 10:20 AM [facility] Work Phone: Start: 06-16-2021 Influenza vaccination INFLUENZA (#1) [facility] Start: 06-01-2021 SERUM CREATININE SERUM CREATININE Cl [facility] Start: 11-27-2020 Urine microalbumin profile DTAP,TDAP,TD (3 - Td or Tdap) [facility] Start: 10-13-2020 Sleep std airflow hr t rate&o2 sat effort unatt Home Sleep Apnea Test EF-Zfeajjzqj-Jxqoa 204 Work Phone: Start: 04-28-2020 Hemoglobin A1c measurement HbA1C [facility] Start: 04-28-2020 Hemoglobin A1c/Hemoglobin.total in Blood HBA1C [facility] Start: 02-28-2020 Glaucoma screening Dilated Retinal E xam [facility] Start: 02-28-2020 Hepatitis C antibody , confirmatory test DILATED RETINAL EXAM [facility] Start: 07-03-2019 Adult depression screening assessment DEPRESSION SCREENING [facility] Start: 01-25-2019 ANNUAL PCP TEAM CHRONIC DISEASE VISIT ANNUAL PCP TEAM CHRONIC DISEASE VISIT [facility] Start: 12-07-2018 Hepatitis B screening URINE ALBUMIN:CREATININE RATIO [facility] Start: 09-22-2018 Hepatitis B surface antibody level LDL CHOLESTEROL [facility] Start: 06-01-2018 HEMOGLOBIN/HEMATOCRIT HEMOGLOBIN/HEM ATOCRIT [facility] Start: 08-24-2017 End: 08-24-2017 Appointment Appointment [facility] Work Phone: Start: 2016 RSV Vaccine (1 - 1-dose 75+ series) RSV Vaccine (1 - 1-dose 75+ series) [facility] Start: 2001 Hepatitis B Vaccine (1 of 3 - Risk 3-dose series) Hepatitis B Vaccine (1 of 3 - Risk 3-dose series) [facility] Start: 2001 RSV Vaccine (1 - 1-dose 60+ series) RSV Vaccine (1 - 1-dose 60+ series) [facility] Start: 1991 SHINGRIX VACCINE (1 of 2) SHINGRIX VACCINE (1 of 2) [facility] Start: 1986 Screening for malignant neoplasm of colon COLORECTAL CANCER SCREENING DISCUSSION [facility] Start: 1959 Anxiety Screening Anxiety Screening [facility] Start: 1959 BP CONTROLLED (<130/80) BP CONTROLLED (<130/80) [facility] Start: 1959 Depression Screening Depression Scre ening [facility] Start: 1951 3 comp foot exam completed DIABETIC FOOT EXAM [facility] Start: 1951 Diabetic foot examination Diabetic Foot Exam [facility] Start: 06-08-1942 COVID-19 VACCINE (#1) COVID-19 VACCI NE (#1) [facility] NEGATED: Highlighted row has been ruled out! Planned Goals not documented HD-Zxpllagxo-Fqqcd 204 Work Phone: Immunizations Immunization Date Immunization Notes Care Provider Beto stubbs 09-29-2022 Pfizer COVID-19 Vac Bivalent 30 MCG/0.3ML Intramuscular Suspension Monserrat E Miedel Work Phone: [facility] 2300 Work Phone: 07-05-2022 Fluad Quadrivalent 0 .5 ML Intramuscular Prefilled Syringe Monserrat E Miedel Work Phone: [facility] 2300 Work Phone: 07-05-2022 influenza virus vacc ine, unspecified formulation Marlon Chapin MD Work Phone: [facility] 03-07-2022 Comirnaty 30 MCG/0.3 ML Intramuscular Suspension Monserrat E Miedel Work Phone: UN-Eeefbldld-Oyznp 204 Work Phone: 08-17-2021 zoster vaccine recombinant Monserrat E Miedel Work Phone: [facility] A2470 DO Work Phone: 07-15-2021 Pfizer-BioNTech COVI D-19 Vacc 30 MCG/0.3ML Intramuscular Suspension Monserrat E Miedel Work Phone: [facility] MedicineChrist[place] [address] DO Work Phone: Comment on above: Series: 04-24-2021 zoster vaccine recombinant Monserrat E Miedel Work Phone: [facility] A2470 DO Work Phone: 12-07-2020 Pfizer-BioNTech COVI D-19 Vacc 30 MCG/0.3ML Intramuscular Suspension Monserrat E Miedel Work Phone: [facility] 400 DO Work Phone: Comment on above: Series: 11-12-2020 Pfizer-BioNTech COVI D-19 Vacc 30 MCG/0.3ML Intramuscular Suspension Monserrat E Miedel Work Phone: [facility] 400 DO Work Phone: Comment on above: Series: 07-16-2020 Fluad Quadrivalent 0 .5 ML Intramuscular Prefilled Syringe Monserrat Domingoedel Work Phone: MG-Pulm [facility] A2470 DO Work Phone: 08-19-2019 influenza, high dose seasonal, preservative-free Monserrat E Miedel Work Phone: [facility] A[facility]60 [facility] Work Phone: 08-18-2019 tetanus toxoid, redu christian diphtheria toxoid, and acellular pertussis vaccine, adsorbed Monserrat America Miedel Work Phone: [facility] A2560 DO Work Phone: 07-25-2016 influenza, high dose seasonal, preservative-free Monserrat E Miedel Work Phone: [facility] 08-06-2015 influenza, seasonal, injectable Monserrat E Miedel Work Phone: [facility] 11-14-2014 pneumococcal conjuga te vaccine, 13 valent Monserrat E Miedel Work Phone: [facility] 08-01-2013 influenza virus vacc ine, unspecified formulation Chidi Burton MD Work Phone: [facility] 07-19-2012 influenza virus vacc ine, unspecified formulation Chidi Burton MD Work Phone: [facility] 08-18-2011 influenza virus vacc ine, unspecified formulation Chidi Burton MD Work Phone: [facility] 11-27-2010 tetanus toxoid, redu christian diphtheria toxoid, and acellular pertussis vaccine, adsorbed Chidi Burton MD Work Phone: [facility] 08-19-2008 influenza virus vacc ine, unspecified formulation Chidi Burton MD Work Phone: [facility] Work Phone: 08-19-2008 pneumococcal polysaccharide vaccine, 23 valent Chidi Burton MD Work Phone: [facility] Work Phone: 08-20-2007 influenza virus vacc ine, whole virus Monserratlizz Wilson Work Phone: [facility] A2470 DO Work Phone: 08-14-2007 influenza virus vacc ine, unspecified formulation Chidi Burton MD Work Phone: [facility] Work Phone: 09-01-2006 influenza virus vacc ine, unspecified formulation Chidi Burton MD Work Phone: [facility] Work Phone: 08-18-2005 influenza virus vacc ine, unspecified formulation Chidi Burton MD Work Phone: [facility] 09-28-2004 influenza virus vacc ine, unspecified formulation Chidi Burton MD Work Phone: [facility] Work Phone: 09-15-2003 diphtheria and tetan us toxoids, adsorbed for pediatric use Chidi Burton MD Work Phone: [facility] Work Phone: 07-16-1999 pneumococcal polysaccharide vaccine, 23 valent Chidi Burton MD Work Phone: [facility] Work Phone: influenza virus vacc ine, unspecified formulation Monserrat Wilson Work Phone: [facility] 400 DO Work Phone: Comment on above: Approx 16Jul2021 Ser ies: Payers Date Payer Category Payer Medicare AETNA MEDICARE A ETNA MEDICARE PPO [id number] 2021-Present [phone] [address] [place] [address] PPO [id number] 2021 Medicare AETNA MEDICARE A ETNA MEDICARE PPO [id number] 2021-Present [phone] [address] [place] [address] PPO [id number] 2017 Private Health Insurance 2013 Medicare [id number] 2013 Private Health Insurance 101 [id number] 1941 Unknown [id number] 1941 Unknown [id number] 1941 Unknown [id number] 1941 Unknown [id number] 56 1941 Unknown [id number] 56 1941 Unknown [id number] 56 1941 Unknown [id number] 56 1941 Unknown [id number] 56 1941 Unknown [id number] 1941 Unknown [id number] Medicare [id number] Unknown Social History Date Type Detail Facility Start: 08-10-2020 End: 09-20-2020 Never a smoker Never a smoker [facility] Comment on above: quit 1975; Start: 06-03-2022 Tobacco smoking status NHIS Ex-smoker [facility] Start: 10-16-1955 End: 10-16-1975 History of tobacco use Current smoker [facility] Start: 10-16-1955 End: 10-16-1975 History of tobacco use Cigarette Smoker [facility] Start: 08-10-2020 End: 06-03-2022 Alcohol intake Current drinker of alcohol (finding) [facility] Start: 08-06-2020 History SDOH Alcohol Comment 2-3 drinks per day [facility] Start: 06-01-2020 End: 06-03-2022 Tobacco Comment QUIT 1975 [facility] Start: 1940 Sex Assigned At Not on file C [facility] Start: 11-13-2021 End: 06-03-2022 Exposure to SARS-CoV-2 (event) Not sure [facility] Start: 04-01-2020 End: 06-03-2022 Tobacco use and exposure Smokeless tobacco non-user [facility] Start: 09-20-2020 End: 05-18-2023 Tobacco use panel [facility] Adult Depression Screening Assessment 0 [facility] Start: 05-06-2019 Gender identity Identifies as male gender (finding) [facility] Start: 04-01-2020 Tobacco smoking status VTIS Occasional tobacco smoker [facility] History of tobacco use Cigar Smoker [facility] How often to you hav e a drink containing alcohol? 4 or more times a week [facility] Start: 04-01-2020 Tobacco Comment occas [facility] Start: 04-01-2020 Alcohol Comment states everyday . [facility] NEGATED: Highlighted row - - NA-Dvrwltvtf-Aeebo 204 Work Phone: Medical Equipment Procedure Code Equipment Code Equipment Origin al Text Equipment Identifier Dates Generator Implantable Pulse - [id number] Start: 12-02-2016 Lead Upper Airwa y Stimulation - [id number] Start: 12-02-2016 Lead Respiratory Sensing - [id number] Start: 12-02-2016 [id number] Start: 11-23-2018 Comment on above: USE ONE STRIP TO NAIN CK GLUCOSE ONCE DAILY Use as directed to t est glucose 3 times weekly. DX: E11.9 Functional Status Date Assessment Result Facility NEGATED: Highlighted row Functional performance Functional status health issues are not documented Disease WA-Zseidbeaa-Pxvvg 204 Work Phone: Mental Status Date Assessment Result Facility NEGATED: Highlighted row Cognitive function [Interpretation] Cognitive status health issues are not documented Disease LN-Iarrhxtep-Hpqdp 204 Work Phone: Clinical Notes 12-17-2014 to 10-04-2023 Telephone Encounter - Dayanara Mandujano RN - 09/13/2023 10:15 AM Chidi Salazar MD - 06/08/2023 12:21 PM EDTPatient Urszula Baires LPN - 06/08/2023 12:09 PM EDT Note Date & Type Note Facility 10-04-2023 Note HNO ID: [id number] Author: Clair Asher RT(R) Service: ? Author Type: Filter Pulp Washer Type: Progress Notes Filed: 10/04/2023 2:22 PM [...] RT Crystal(R) October 04, 2023 2:15 PM [facility] 10-04-2023 Note HNO ID: [id number] Author: Teresa Rudd PA Service: ? Author Type: Physician Process Development Engineer Type: Progress Notes Filed: 10/04/2023 3:04 PM [...] Dr. Berry Chronic kidney disease, stage 3 ([facility]) Seeing Dr. Moss DDD (degenerative disc disease), cervical DDD (degenerative disc disease), lumbar Seeing Dr. Thayer Diarrhea Diverticulosis of colon (without mention of hemorrhage) DVT (deep venous thrombosis) ([facility]) 08/06/2020 Essential tremor External hemorrhoids without mention [...] complication, without long-term current use of insulin ([facility]) 06/07/[address] 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 lancets (Vestor LANCETS) 30 gauge misc Use as directed to test glucose 3 times weekly. DX: E11.9 dupilumab (DUPIXENT SUBCUTANEOUS) Inject subcutaneously as needed (taking every three weeks). 08/17/2021 reported taking every 3 weeks cyanocobalamin, vitamin B-12, (VITAMIN B-12 INJECTION) by INJECTION(UNSPECIFIED PARENTERAL ROUTES) route once every month. blood sugar diagnostic (TransferGo) test strip USE ONE STRIP TO CHECK GLUCOSE ONCE DAILY losartan (COZAAR) 25 mg tablet TAKE 1 TABLET DAILY ketoconazole (NIZORAL) 2 % shampoo Apply 1 application to affected area once daily as needed. atorvastatin (LIPITOR) 20 mg tablet Take 1 tablet by mouth once daily. Blood-Glucose Meter ([employer]ters VERIO SYSTEM) misc Use as directed. Cholecalciferol, Vitamin D3, 2,000 unit ORAL Cap Take 2,000 Units by mouth. ascorbic acid(VITAMIN C 500 MG TAB) Take one (1) tablet twice daily. FAMILY HISTORY Problem Relation Age of Onset Diabetes Father other (down'ssyndrome) Brother Hypertension Mother other (Other) Mother Acute Renal Failure/AAA other (Aortic aneurysm) Mother Ischemic Heart Disease Brother 58 CA Alcohol/Drug Brother Breast Cancer Sister Diabetes Maternal Grandmother Rheumatologic disease Maternal Grandfather Anesthesia Problems No Family History Social History Tobacco Use Smoking status: Former Packs/day: 0.50 Years: 20.00 Additional pack years: 0.00 Total pack years: 10.00 Types: Cigarettes Quit date: 10/16/1975 Years since quittin.0 Smokeless tobacco: Never Tobacco comments: QUIT 1975 Vapi (more content not included)... [facility] 09-13-2023 Miscellaneous Notes Physician: Dr. Burton Call from patient requesting refill. Please E-Scribe 30-day supply. Last OV: 06/08/[address] Burton Future OV: None Scheduled Requested Prescriptions Pending Prescriptions Disp Refills omeprazole (PRILOSEC) 40 mg capsule 30 capsule 0 Sig: Take 1 capsule by mouth once daily. Pharmacy Name: [facility] Phone #: Dayanara Mandujano RN documented in this encounter [facility] 06-08-2023 Note HNO ID: [id number] Author: Chidi Burton MD Service: ? Author Type: Physician Type: Progress Notes Filed: 06/08/2023 12:24 PM Note Text: FOLLOW UP VISIT - HEMORRHOID BANDING NAME: Temo Rajput [facility] NO.: [id number] DATE OF SERVICE: 06/08/2023 : 1940 REFERRING [...] month if persistent bleeding. Chidi Burton MD [facility] 06-08-2023 History of Present illness Narrative FOLLOW UP VISIT - HEMORRHOID BANDING NAME: Temo Rajput [facility] NO.: [id number] DATE OF SERVICE: 06/08/2023 : 1940 REFERRING [...] month if persistent bleeding. Chidi Burton MD documented in this encounter [facility] 06-08-2023 Instructions Urszula Quinn LPN - [...] feel free to call our office at [phone] and ask to be transferred to General Surgery. Thank you for choosing [facility] - General Surgery. documented in this encounter [facility] 06-08-2023 Nurse Note UNIVERSAL PROTOCOL / [...] Urszula Quinn LPN documented in this encounter [facility] 05-30-2023 History of Present illness Narrative [...] for condition of interest EMG No Physical therapy/customer care voice consultant Yes Occupational therapy No Acupuncture Yes, w/o [...] Cap DR Particles capsule DR Dupilumab (DUPIXENT IN) Inject under the skin every 14 days. [...] coordination of care. documented in this encounter [facility] 05-30-2023 Instructions Marlon Chapin MD - 05/30/2023 1:00 PM EDT The device we talked about is called a Theracane. documented in this encounter [facility] 05-18-2023 Note HNO ID: [id number] Author: Belén Reyes PA-C Service: ? Author Type: Physician Process Development Engineer Type: Progress Notes Filed: 05/29/2023 7:56 AM [...] mention of hemorrhage) DVT (deep venous thrombosis) ([facility]) 08/06/2020 Essential tremor External hemorrhoids without mention [...] complication, without long-term current use of insulin ([facility]) 06/07/[address] 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 lancets ([employer] DELICA LANCETS) 30 gauge [facility] Use as directed to test glucose 3 times weekly. DX: E11.9 dupilumab (DUPIXENT SUBCUTANEOUS) Inject subcutaneously as needed (taking every three weeks). 08/17/2021 reported taking every 3 weeks cyanocobalamin, vitamin B-12, (VITAMIN B-12 INJECTION) by INJECTION(UNSPECIFIED PARENTERAL ROUTES) route once every month. blood sugar diagnostic ([employer]) test strip USE ONE STRIP TO CHECK GLUCOSE ONCE DAILY losartan (COZAAR) 25 mg tablet TAKE 1 TABLET DAILY ketoconazole (NIZORAL) 2 % shampoo Apply 1 application to affected area once daily as needed. atorvastatin (LIPITOR) 20 mg tablet Take 1 tablet by mouth once daily. Blood-Glucose Meter ([employer] VERIO SYSTEM) [facility] Use as directed. Cholecalciferol, Vitamin D3, 2,000 unit ORAL Cap Take 2,000 Units by mouth. ascorbic acid(VITAMIN C 500 MG TAB) Take one (1) tablet twice daily. No current facility-administered medications for this visit. ALLERGIES: Flomax [Tamsulosin], Celecoxib, Meloxicam, Mirapex [Pramipexole], Uroxatral [Alfuzosin H (more content not included)... [facility] 05-18-2023 Nurse Note REVIEW OF SYSTEMS: General: [...] Jena Webb RN documented in this encounter [facility] 05-18-2023 History of Present illness Narrative [...] Dr. Berry Chronic kidney disease, stage 3 ([facility]) Seeing Dr. Moss DDD (degenerative disc disease), cervical DDD (degenerative disc disease), lumbar Seeing Dr. Thayer Diarrhea Diverticulosis of colon (without mention of hemorrhage) DVT (deep venous thrombosis) ([facility]) 08/06/2020 Essential tremor External hemorrhoids without mention [...] complication, without long-term current use of insulin ([facility]) 06/07/[address] 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 lancets ([employer] LANCETS) 30 gauge misc Use as directed to test glucose 3 times weekly. DX: E11.9 dupilumab (DUPIXENT SUBCUTANEOUS) Inject subcutaneously as needed (taking every three weeks). 08/17/2021 reported taking every 3 weeks cyanocobalamin, vitamin B-12, (VITAMIN B-12 INJECTION) by INJECTION(UNSPECIFIED PARENTERAL ROUTES) route once every month. blood sugar diagnostic ([employer]) test strip USE ONE STRIP TO CHECK GLUCOSE ONCE DAILY losartan (COZAAR) 25 mg tablet TAKE 1 TABLET DAILY ketoconazole (NIZORAL) 2 % shampoo Apply 1 application to affected area once daily as needed. atorvastatin (LIPITOR) 20 mg tablet Take 1 tablet by mouth once daily. Blood-Glucose Meter ([employer] VERIO SYSTEM) misc Use as directed. Cholecalciferol, [...] aneurysm) Mother Ischemic Heart Disease Brother 58 [place] Alcohol/Drug Brother Breast Cancer Sister Diabetes Maternal [...] Belén Reyes PA-C documented in this encounter [facility] 02-17-[address] Baron, Patient has never seen you in the office, nor have you done a procedure on him. Not sure why this refill is being sent to you. Please advise. Robyn Duke RN documented in this encounter [facility] 02-15-2023 Miscellaneous Notes First attempt to reach patient. No VM left. Katherine Gao February 15, 2023 6:30 PM documented in this encounter [facility] 09-16-2022 Miscellaneous Notes Patient phones requesting refills as follows: Requested Prescriptions Pending Prescriptions Disp Refills omeprazole (PRILOSEC) 40 mg capsule [Pharmacy Med Name: OMEPRAZOLE DR CAPS 40MG] 90 capsule 0 Sig: TAKE 1 CAPSULE DAILY Please review and advise. Julia Ramirez Ma documented in this encounter [facility] 08-29-2022 Miscellaneous Notes Returned patient's call [...] to no relief. Patient uses [facility] in [place]. Please advise and call patient. documented in this encounter [facility] 06-03-2022 History of Present illness Narrative Radiology [...] 2022 10:01 AM documented in this encounter [facility] 01-05-2022 History of Present illness Narrative [...] Dr. Berry Chronic kidney disease, stage 3 ([facility]) Seeing Dr. Moss DDD (degenerative disc disease), cervical DDD (degenerative disc disease), lumbar Seeing Dr. Thayer Diarrhea Diverticulosis of colon (without mention of hemorrhage) DVT (deep venous thrombosis) ([facility]) 08/06/2020 Essential tremor External hemorrhoids without mention [...] complication, without long-term current use of insulin ([facility]) 06/07/[address] 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 lancets ([employer]CH DELICA LANCETS) 30 gauge misc Use as directed to test glucose 3 times weekly. DX: E11.9 100 Each 3 cyanocobalamin, vitamin B-12, (VITAMIN B-12 INJECTION) by INJECTION(UNSPECIFIED PARENTERAL ROUTES) route once every month. sitaGLIPtin (JANUVIA) 50 mg tablet Take 1 tablet by mouth once daily. 90 tablet 3 blood sugar diagnostic ([employer] VERIO) test strip USE ONE STRIP TO [...] once daily. 90 tablet 1 Blood-Glucose Meter (Sevent[employer]mUCH VERIO SYSTEM) [facility] Use as directed. 1 Each 0 [...] with more than 50% of the total memn-ag-mccz time of the visit in counseling / coordination of care. I have confirmed and edited as necessary, the PFSH and ROS obtained by others. Carol Tran APRN.CNP January 05, 2022 9:48 AM documented in this encounter [facility] 01-04-2022 Miscellaneous Notes Patient scheduled for [...] EGD is still scheduled on 12/13 at [facility]? He states he has not received any instructions and wants to make sure he does not miss anything. Advised patient general surgery staff would contact him when they return to the office on 11/22/21. He verbalized understanding. documented in this encounter [facility] 10-20-2021 History of Present illness Narrative [...] denies a dyspnea with daily activities. -Pulmonary Medicine-[place] [address] DO Work Phone: 10-18-2021 History of Present [...] He denies a dyspnea with daily activities. -[facility] [address] Work [...] denies a dyspnea with daily activities. -[facility] DO Work Phone: 09-02-2021 History of [...] a inspire inserted in 2017 at the [facility]. 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 -Pulmonary Medicine-[place] DO Work Phone: 09-02-2021 History of Present [...] a inspire inserted in 2017 at the [facility]. 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 -Pulmonary Medicine-[place] DO Work Phone: 07-20-2021 History of Present [...] a sleep study in 2013 at the [facility]. The patient's [place] Sleepiness Scale score today was 4. The [...] a vengeance and wake him from sleep. [facility] Work Phone: 07-16-2021 History of Present illness Narrative Mr. TEMO GARRISON is presenting for inspire eval- existing implantThe patient was kindly referred by Malick Baird personally reviewed the referring provider's note dated 07/16/21Multifactorial sleep issues- rosita, rlsVery restless sleeperWas started on RequipCurrently using OAT for OSAHas inspire [facility] (up to 20 min SL) until 830Baseline AHI 55 (2013 study [facility])Study with OAT in place showed AHI 24.4Noted [...] on requip dose is being adjusted upwards [id number]wt[facility] [address] [place] Work Phone: 07-16-2021 History of Present illness Narrative Mr. TEMO GARRISON is presenting for inspire eval- existing implantThe patient was kindly referred by Malick Baird personally reviewed the referring provider's note dated 07/16/21Multifactorial sleep issues- rosita, rlsVery restless sleeperWas started on RequipCurrently using OAT for OSAHas inspire [facility] 930 (up to 20 min SL) until 830Baseline AHI 55 (2013 study [facility])Study with OAT in place showed AHI 24.4Noted [...] PLAN TO USE WITH OAT IN PLACE [facility]-Zoynbujuqspmmb-[place] MAC1 [address] [place] Work Phone: 07-16-2021 History [...] a sleep study in 2013 at the [facility]. The patient's [place] Sleepiness Scale score today was 4. The [...] a vengeance and wake him from sleep. [facility]-Zhejipoxf-[facility] [address] Work Phone: 11-25-2016 History of Past [...] of this encounter (statuses as of 01/04/2022) [facility] History of Past [facility] Narrative* Problem [...] of this encounter (statuses as of 01/05/2022) [facility] History of Past [facility] Narrative* Problem [...] of this encounter (statuses as of 05/15/2022) [facility] History of [facility] Narrative* Problem [...] of this encounter (statuses as of 08/30/2022) [facility] History of [facility] Narrative* Problem [...] of this encounter (statuses as of 09/19/2022) [facility] History of [facility] Narrative* Problem [...] of this encounter (statuses as of 02/16/2023) [facility] of [facility] Narrative* Problem [...] of this encounter (statuses as of 02/17/2023) [facility] History of Past [facility] Narrative* Problem [...] of this encounter (statuses as of 05/29/2023) [facility] of [facility] Narrative* Problem [...] of this encounter (statuses as of 06/08/2023) [facility] of Past [facility] Narrative* Problem [...] of this encounter (statuses as of 09/14/2023) [facility] History of Present illness Narrative* From a previous note from Dr. 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 * Naps: Patient [...] not act out of dream. No nightmares. [facility] [address] DO Work Phone: 1(977) 312-131102-07-2016 History of Present illness Narrative* From a previous note from Dr. 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 * Naps: Patient [...] act out of dream. No nightmares. [facility] [address] Work Phone: 1(395) 997-527703-27-2015 History of Present illness Narrative* From a previous note from Dr. 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 * Naps: Patient [...] act out of dream. No nightmares. -Sleep Medicine-[place] A[address] DO Work Phone: 1(851) 248-603503-04-2015 History of Present illness Narrative* Mr. 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 * Naps: Patient [...] act out of dream. No nightmares. -Pulm Sleep-[place] A[address] DO Work Phone: chief complaint Narrative [...] * Virtual visit. Follow up on sleep. [facility]-Zsp[facility] [address] Work Phone: chief complaint Narrative - [...] * Virtual visit. Follow up on sleep. [facility] Work Phone: chief complaint Narrative - [...] * Virtual visit. Follow up on sleep. [facility] Work Phone: chief complaint Narrative - Reported* TEMO GARRISON is here for an initial evaluation. * Reason for Visit: Nocturnal Hypoxemia. * Appointment requested by: Dr. Weber; PCP: Dr. Wilson. [facility] MedicineR[facility] [address] DO Work Phone: chief complaint Narrative - Reported* TEMO GARRISON is here for an initial evaluation. * Reason for Visit: Nocturnal Hypoxemia. * Appointment requested by: Dr. Weber; PCP: Dr. Wilson. -Pulmonary Medicine-[place] [address] DO Work Phone: chief complaint Narrative - Reported* TEMO GARRISON is here for an initial evaluation. * Reason for Visit: Nocturnal Hypoxemia. * Appointment requested by: Dr. Weber; PCP: Dr. Wilson. [facility]ENTERPulmonary MedicineChrist[place] [address] DO Work Phone: Evaluation note* Diagnosis History of Small's esophagus- Primary [facility] Diagnosis Bright red blood per rectum- Primary Hemorrhage of rectum and anus Hemorrhoids, internal Internal hemorrhoids without mention of complication [facility]* Diagnosis Other chronic pain [facility] Diagnosis Bright red blood per rectum- Primary Hemorrhage of rectum and anus Hemorrhoids, internal Internal hemorrhoids without mention of complication [facility] Diagnosis Preop examination- Primary Preoperative examination, [...] apnea Acute cough [facility]* The patient [...] [facility]'s [place] Sleepiness Scale score today was 4. The [...] a vengeance and wake him from sleep. [facility] Work Phone: Reason for visit Narrative* Diagnostic Procedure Only (Urgent) - Closed Specialty Diagnoses / Procedures Referred By Contac t Referred To Contact XR IMAGING Diagnoses Lower extremity injury, right, initial encounter Procedures XR ANKLE GENERAL 3V AP/LAT/OBL RIGHT RADEX ANKLE COMPLETE MINIMUM 3 VIEWS Joe Goodwin, JOCELYN.MOSAIC TILE MAKER [address] [place] [address] [place] [address] Referral ID Status Reason Start Date Expiration Date V isits Requested Visits Authorized [id number] Closed Auto-Generate d Referral 06/03/2022 07/03/2023 1 1 [facility] Summary Purpose Family History Unknown Family Member [...] Documents on File Type Date Recorded Patient Skinning Machine Feeder Expl anation Advance Directive(s) 12/13/2021 9:35 AM Advance Directive(s) 08/10/2020 7:21 AM M dorian infusion Advance Directive(s) 08/10/2020 7:20 AM Advance Directive(s) 08/03/2020 1:49 PM Advance Directive(s) 11/23/2016 9:39 AM Advance Directive(s) 11/22/2016 9:26 AM Advance Directive(s) 05/24/2016 1:39 PM Advance Directive(s) 12/13/2011 12:00 AM Advance Directive(s) 12/01/2006 12:00 AM Documents on File Type Date Recorded Patient Skinning Machine Feeder Expl anation Advance Directive(s) 08/10/2020 7:20 AM Advance Directive(s) 12/13/2011 Advance Directive(s) 12/01/2006 Documents on File Type Date Recorded Patient Skinning Machine Feeder Expl anation Advance Directive(s) 08/10/2020 7:20 AM [...] section and content) DATE CREATED AUTHOR 04/06/2018 [facility] DATE CREATED AUTHOR AUTHOR'S ORGANIZ ATION 04/10/2018 [facility] ([place]) DATE CREATED AUTHOR AUTHOR'S ORGANIZ ATION 10/13/2018 [facility] DATE CREATED AUTHOR AUTHOR'S ORGANIZ ATION 01/06/[address] [facility] DATE CREATED AUTHOR AUTHOR'S ORGANIZ ATION 10/03/2021 [facility] DATE CREATED AUTHOR AUTHOR'S ORGANIZ ATION 12/15/2021 [facility] DATE CREATED AUTHOR AUTHOR'S ORGANIZ ATION 02/28/2023 [facility] DATE CREATED AUTHOR AUTHOR'S ORGANIZ ATION 02/28/2023 [facility] DATE CREATED AUTHOR AUTHOR'S ORGANIZ ATION 06/03/2023 [facility] DATE CREATED AUTHOR AUTHOR'S ORGANIZ ATION 10/06/2023 [facility] Reason for Visit (unrecogniz ed section and [...] chronic pain Malick Al MD [address] [address] U [facility] [address] [place] [address] Referral ID Status Reason Start Date Expiration Date V isits Requested Visits Authorized [id number] New Request 04/11/2023 05/05/2024 1 1 Reason Comments Procedure BANDING Reason Onset Date Comments Refill Request 09/13/2023 Source Comments (unrecognize d section and content) In the event this informatio n is protected by the Federal Confidentiality of Alcohol and Drug Abuse Patient Records regulations: The Federal rules restrict any use of the information to criminally investigate or prosecute any alcohol or drug abuse patient.[facility] the event this information is protected by the Federal Confidentiality of Alcohol and Drug Abuse Patient Records regulations: The Federal rules restrict any use of the information to criminally investigate or prosecute any alcohol or drug abuse patient.[facility] HospitalIn the event this information is protected by the Federal Confidentiality of Alcohol and Drug Abuse Patient Records regulations: The Federal rules restrict any use of the information to criminally investigate or prosecute any alcohol or drug abuse patient.[facility] HospitalIn the event this information is protected by the Federal Confidentiality of Alcohol and Drug Abuse Patient Records regulations: The Federal rules restrict any use of the information to criminally investigate or prosecute any alcohol or drug abuse patient.[facility] HospitalIn the event this information is protected by the Federal Confidentiality of Alcohol and Drug Abuse Patient Records regulations: The Federal rules restrict any use of the information to criminally investigate or prosecute any alcohol or drug abuse patient.[facility] HospitalIn the event this information is protected by the Federal Confidentiality of Alcohol and Drug Abuse Patient Records regulations: The Federal rules restrict any use of the information to criminally investigate or prosecute any alcohol or drug abuse patient.[facility] HospitalIn the event this information is protected by the Federal Confidentiality of Alcohol and Drug Abuse Patient Records regulations: The Federal rules restrict any use of the information to criminally investigate or prosecute any alcohol or drug abuse patient.[facility] HospitalIn the event this information is protected by the Federal Confidentiality of Alcohol and Drug Abuse Patient Records regulations: The Federal rules restrict any use of the information to criminally investigate or prosecute any alcohol or drug abuse patient.[facility] HospitalIn the event this information is protected by the Federal Confidentiality of Alcohol and Drug Abuse Patient Records regulations: The Federal rules restrict any use of the information to criminally investigate or prosecute any alcohol or drug abuse patient.[facility] HospitalIn the event this information is protected by the Federal Confidentiality of Alcohol and Drug Abuse Patient Records regulations: The Federal rules restrict any use of the information to criminally investigate or prosecute any alcohol or drug abuse patient.[facility] HospitalIn the event this information is protected by the Federal Confidentiality of Alcohol and Drug Abuse Patient Records regulations: The Federal rules restrict any use of the information to criminally investigate or prosecute any alcohol or drug abuse patient.[facility] HospitalIn the event this information is protected by the Federal Confidentiality of Alcohol and Drug Abuse Patient Records regulations: The Federal rules restrict any use of the information to criminally investigate or prosecute any alcohol or drug abuse patient.[facility] Teams (unrecognized sec tion and content) Electrical Designer Relationship Specialty Start Date End Date Monserrat Wilson [address] [place] [address] PCP - General Family Practice 06/26/18 Electrical Designer Relationship Specialty Start Date End Date Monserrat Wilson [address] [place] [address] PCP - General Family Practice 06/26/18 Electrical Designer Relationship Specialty Start Date End Date Monserrat Wilson [address] [place] [address] PCP - General Family Practice 06/26/18 Electrical Designer Relationship Specialty Start Date End Date Monserrat Wilson [address] [place] [address] PCP - General Family Medicine 06/26/18 Electrical Designer Relationship Specialty Start Date End Date Monserrat Wilson [address] [place] [address] PCP - General Family Medicine 06/26/18 Electrical Designer Relationship Specialty Start Date End Date Monserrat Wilson MD [address] [place], [place] [id number] PCP - General Family Medicine 06/26/18 Electrical Designer Relationship Specialty Start Date End Date Monserrat Wilson MD [address] [place], [place] [id number] PCP - General Family Medicine 06/26/18 Electrical Designer Relationship Specialty Start Date End Date Malick Al [address] [place] [address] PCP - General Family Medicine 05/18/23 Electrical Designer Relationship Specialty Start Date End Date Malick Al MD [address] [place] [address] PCP - General Family Medicine 05/18/23 Electrical Designer Relationship Specialty Start Date End Date Malick Al MD [address] [place] [address] PCP - General Family Medicine 05/18/23 Electrical Designer Relationship Specialty Start Date End Date Malick Al MD [address] [place] [address] PCP - General Family Medicine 05/18/23 Electrical Designer Relationship Specialty Start Date End Date Monserrat Wilson MD [address] [place] [address] PCP - General Family Medicine 06/26/18 05/17/23 [...] BE BASED ON THE PRIMARY CLINICAL RECORDS. [employer] [facility]. provides no warranty or guarantee of the accuracy or completeness of information in this document.
--- OUTSIDE RECORDS SUMMARY | 2024-08-05 21:07 | XMS RPT_ITS | CCD ---
Author Organization [facility] CliniSytx Care Team Providers Care Jewel Bearing Grinder Name Role Phone Yulia Doll Unavailable Zumbar, [...] Deevaaliya labMalick Velez Primary Care Provider [phone] Unavailable Primary Care Provider UnavailMARLON Pierre Attending [...] (2 sources) alfuzosin; Translations: [Uroxatral] Drug Allergy PA-Ywigfsveb-C arma 204 Work Phone: Cholesterol Absorption Inhibitors (1 source) ezetimibe; Translations: [Zetia] Drug Allergy SH-Ekxjnvjai-V arma 204 Work Phone: HMG-CoA Reductase Inhibitors (statins) (1 source) Simvastatin; Translations: [Zocor] Drug Allergy SU-Qyhlrzter-T arma 204 Work Phone: NSAIDs (2 sources) celecoxib; Translations: [CeleBREX CAPS] Drug Allergy FM-Eqrsuhinm-T arma 204 Work Phone: Pramipexole (1 source) Pramipexole; Translations: [Mirapex] Drug Allergy EN-Vbcjswsxp-L arma 204 Work Phone: (20 sources) alfuzosin; Translations: [Uroxatral] Drug Allergy UL-Urlielfui-T arma 204 Work Phone: (20 sources) celecoxib; Translations: [CeleBREX CAPS] Drug Allergy 2 Unknown [facility] (20 sources) ezetimibe; Translations: [ZETIA] Drug Allergy [facility] Repository (20 sources) meloxicam; Translations: [MELOXICAM] Drug Allergy 0 Unknown [facility] Repository (20 sources) Pramipexole; Translations: [MIRAPEX] Drug Allergy [facility] Repository (20 sources) Simvastatin; Translations: [ZOCOR] Drug Allergy [facility] Repository (20 sources) tamsulosin; Translations: [tamsulosin] Drug Allergy 0 Intolerance, Syncope [facility] (1 source) celecoxib Drug Allergy [facility] Repository (13 sources) alfuzosin; Translations: [ALFUZOSIN HCL] Drug Allergy 7 Other: See Comments [facility] (13 sources) ezetimibe; Translations: [EZETIMIBE] Drug Allergy 5 Other: See Comments [facility] (13 sources) Pramipexole; Translations: [PRAMIPEXOLE] Drug Allergy 0 Intolerance [facility] (14 sources) Simvastatin; Translations: [SIMVASTATIN] Drug Allergy 5 Other: See Comments [facility] (1 source) ezetimibe Drug Allergy 0 [facility] (1 source) Pramipexole Drug Allergy 0 [facility] (1 source) celecoxib; Translations: [CELECOXIB] Drug Allergy 2 [facility] Repository Medications Current Medications Medication Drug Class(es) [...] 10/04/2023 Active Blood-Glucose Meter (ONETOUCH VERIO SYSTEM) [facility] (12 sources) Start: 7 Blood-Glucose Meter (ONETOUCH VERIO SYSTEM) [facility] Use as directed. 1 Each 07/10/2017 Active Start: 07-10-2017 Blood-Glucose Meter (ONETOUCH VERIO SYSTEM) [facility] Use as directed. 1 [...] Comment on above: Take 1 capsule by [facility] once daily. TAKE 1 CAPSULE DAILY [...] Comment on above: Take 1 capsule by [facility] daily at bedtime. 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 10-05-2023 [facility] Telephone ([facility]) TEMO GARRISON ([id number]) 1940 M Date Time Provider Department 10/05/23 JESSICA ORTIZ [facility] During your visit today, we recorded the following information about you: Jessica Ortiz APRN.[facility] 10/05/2023 7:55 AM Signed Left message notifying [...] mg by mouth twice daily. - lancets (Knodium LANCETS) 30 gauge misc Use as directed to test glucose 3 times weekly. DX: E11.9 - dupilumab (DUPIXENT SUBCUTANEOUS) Inject subcutaneously as needed (taking every three weeks). 08/17/2021 reported taking every 3 weeks - cyanocobalamin, vitamin B-12, (VITAMIN B-12 INJECTION) by INJECTION(UNSPECIFIED PARENTERAL ROUTES) route once every month. - blood sugar diagnostic (CANDDi VERWummelbox) test strip USE ONE STRIP TO CHECK GLUCOSE ONCE DAILY - losartan (COZAAR) 25 mg tablet TAKE 1 TABLET DAILY - ketoconazole (NIZORAL) 2 % shampoo Apply 1 application to affected area once daily as needed. - atorvastatin (LIPITOR) 20 mg tablet Take 1 tablet by mouth once daily. - Blood-Glucose Meter (CANDDi VERIO SYSTEM) misc Use as directed. - [...] obstruction [N32.0] 05/28/2007 01/03/2014 Postoperative urethral stricture [LXM9616] 11/26/2007 01/03/2014 Cellulitis and abscess of toe, [...] [R39.198] 09/19/201102/13 (more content not included)... Normal [facility] CNOVon 10-04-2023 CNOV Office Visit (UCWSTR ) TEMO GARRISON ([id number]) 1940 M Date Time Provider Department 10/04/23 [...] Dr. Berry Chronic kidney disease, stage 3 ([facility]) Seeing Dr. Moss DDD (degenerative disc disease), cervical DDD (degenerative disc disease), lumbar Seeing Dr. Thayer Diarrhea Diverticulosis of colon (without mention of hemorrhage) DVT (deep venous thrombosis) ([facility]) 08/06/2020 Essential tremor External hemorrhoids [...] complication, without long-term current use of insulin ([facility]) 06/07/[address] Owens Uveitis [...] 600 mg by mouth twice daily. lancets (Knodium LANCETS) 30 gauge misc Use as directed to test glucose 3 times weekly. DX: E11.9 dupilumab (DUPIXENT SUBCUTANEOUS) Inject subcutaneously as needed (taking every three weeks). 08/17/2021 reported taking every 3 weeks cyanocobalamin, vitamin B-12, (VITAMIN B-12 INJECTION) by INJECTION(UNSPECIFIED PARENTERAL ROUTES) route once every month. blood sugar diagnostic (CANDDi VERWummelbox) test strip USE ONE STRIP TO CHECK GLUCOSE ONCE DAILY losartan (COZAAR) 25 mg tablet TAKE 1 TABLET DAILY ketoconazole (NIZORAL) 2 % shampoo Apply 1 application to affected area once daily as needed. atorvastatin (LIPITOR) 20 mg tablet Take 1 tablet by mouth once daily. Blood-Glucose Meter (CANDDi VERIO SYSTEM) misc Use as directed. Cholecalciferol, Vitamin D3, 2,000 unit ORAL Cap Take 2,000 Units by mouth. ascorbic acid(VITAMIN C 500 MG TAB) Take one (1) tablet twice daily. FAMILY HISTORY Problem Relation Age of Onset Diabetes Father other (down'ssyndrome) Brother Hypertension Mother other (Other) Mother Acute Renal Failure/AAA other (Aortic aneurysm) Mother Ischemic Heart Disease Brother 58 [place] Alcohol/Drug Brother Breast Cancer Sister Diabetes Maternal Grandmother Rheumatologic disease Maternal Grandfather Anesthesia Problems No Family H (more content not included)... Normal [facility] Arevalo COVID AND INFLUENZA A/B AND RSV NAAT, ROUTINEon 10-04-2023 SARS-CoV-2 (COVID-19) RNA SADE+probe Ql (Unsp spec) COVID 19 RESULT: Detected The method used is RT-PCR or an equivalent NAAT method. Reference Range (the expected result in uninfected individuals): Not detected INFLUENZA A PCR: Not detected INFLUENZA B PCR: Not detected RSV PCR: Not detected Abnormal [facility] Comment on above: Performed By: #### C VFLRS #### [facility] CLIA [id number] [address] [place] [address] [place] XR CHEST 2V FRONTAL/LATon [...] acute findings IMPRESSION: No acute radiographic abnormality. Agronomist: MANE Transcribe Date/Time: Oct 04 2023 2:53P Dictated by : TRUONG ENG MD This examination was interpreted and the report reviewed and electronically signed by: TRUONG ENG MD on Oct 04 2023 2:59PM EST [id number] Normal [facility] XR Chest PA and Lateralon IMPRESSION: No acute radiographic abnormality. Agronomist: MANE Transcribe Date/Time: Oct 04 2023 2:53P [...] acute findings DIVISION OF RADIOLOGY Provider, Rogelio [facility] - 10/04/2023 * * *Final Report* * [...] findings IMPRESSION IMPRESSION: No acute radiographic abnormality. Agronomist: PSCB Transcribe Date/Time: Oct 04 2023 2:53P Dictated by : TRUONG ENG MD This examination was interpreted and the report reviewed and electronically signed by: TRUONG ENG MD on Oct 04 2023 2:59PM EST [facility] Radiology Study observation (narrative) [facility] XR Chest PA and LateralOrder ed By: Ccf Provider on 10-04-2023 [facility] CNOVon 06-08-2023 CNOV Office Visit (GENSWS ) TEMO GARRISON ([id number]) 1940 M Date Time Provider Department 06/08/23 [...] feel free to call our office at [phone] and ask to be transferred to General Surgery. Thank you for choosing [facility] - General Surgery. Chidi Burton MD 06/08/2023 12:24 PM Signed FOLLOW UP VISIT - HEMORRHOID BANDING NAME: Temo Garrison [facility] NO.: [id number] DATE OF SERVICE: 06/08/2023 : 1940 REFERRING [...] Comments Comments: (more content not included)... Normal [facility] CNOVon 05-18-2023 CNOV Office Visit (GENSWS ) TEMO GARRISON ([id number]) 1940 M Date Time Provider Department 05/18/23 [...] mention of hemorrhage) DVT (deep venous thrombosis) ([facility]) 08/06/2020 Essential tremor External hemorrhoids [...] complication, without long-term current use of insulin ([facility]) 06/07/[address] Owens Uveitis [...] 600 mg by mouth twice daily. lancets (Knodium LANCETS) 30 gauge misc Use as directed to test glucose 3 times weekly. DX: E11.9 dupilumab (DUPIXENT SUBCUTANEOUS) Inject subcutaneously as needed (taking every three weeks). 08/17/2021 reported taking every 3 weeks cyanocobalamin, vitamin B-12, (VITAMIN B-12 INJECTION) by INJECTION(UNSPECIFIED PARENTERAL ROUTES) route once every month. blood sugar diagnostic (CANDDi VERIO) test strip USE ONE STRIP TO CHECK GLUCOSE ONCE DAILY losartan (COZAAR) 25 mg tablet TAKE 1 TABLET DAILY ketoconazole (NIZORAL) 2 % shampoo Apply 1 application to affected area once daily as needed. atorvastatin (LIPITOR) 20 mg tablet Take 1 tablet by mouth once daily. Blood-Glucose Meter (CycellUCH VERIO SYSTEM) misc Use as directed. Cholecalciferol, Vitamin D3, 2,000 (more content not included)... Normal [facility] Office Visit (Sleep Medicine )on 02-27-2023 Follow-up [...] or mask interface, please FIRST contact your makeena. [employer] can be reached at [phone]. For questions concerning your SLEEP CLINIC appointment: Call [phone] SLEEP LAB [phone] or [phone]. CAUTIONS for New PAP users: 1. You should know the [facility] compliance criteria if you have Medicare or [...] Sites: For patients with ALL SLEEP DISORDERS: [place] [employer] http://sleepeducation.org; or National Sleep Foundation: https://sleepfoundation.org For patients with ROSITA: [place] Sleep Apnea Association: https://www.sleepapnea.org For patients with RLS: RLS Foundation: https://www.rls.org For patients with INSOMNIA: https://www.helpguide.org/codi zavala/sleep/insomnia-caus hy-ihc-lztwd.htm For patients with DEPRESSION: http://www.unbrokenwings.co m/depression Provider [...] 0.6V functional:0.7V (more content not included)... Normal [employer] Tobacco Screening.on 023 Fall risk assessment a) No falls within the last year [facility] [employer] A2470 DO Work Phone: Tobacco use status [facility] b) No [facility] [employer] A2470 DO Work Phone: CNPNon 02-15-2023 [facility] Telephone ([facility]) TEMO GARRISON ([id number]) 1940 M Date Time Provider Department 02/15/23 [...] by mouth daily at bedtime. - lancets (CANDDi DELICA LANCETS) 30 gauge misc Use as [...] mouth once daily. - blood sugar diagnostic (CANDDi VERIO) test strip USE ONE STRIP TO [...] by mouth once daily. - Blood-Glucose Meter (CycellUCH VERIO SYSTEM) misc Use as directed. - [...] obstruction [N32.0] 05/28/2007 01/03/2014 Postoperative urethral stricture [CHQ6308] 11/26/2007 01/03/2014 Cellulitis and abscess of toe, [...] Status:Closed by KATHERINE GAO on 02/15/23 Normal [facility] Office Visit (Sleep Medicine )on 11-21-2022 Follow-up [...] or mask interface, please FIRST contact your [employer]. [employer] can be reached at [phone]. For questions concerning your SLEEP CLINIC appointment: Call [phone] SLEEP LAB [phone] or [phone]. CAUTIONS for New PAP users: 1. You should know the [facility] compliance criteria if you have Medicare or [...] Sites: For patients with ALL SLEEP DISORDERS: [place] [employer] http://sleepeducation.org; or National Sleep Foundation: https://sleepfoundation.org For patients with ROSITA: [place] Sleep Apnea Association: https://www.sleepapnea.org For patients with RLS: RLS Foundation: https://www.rls.org For patients with INSOMNIA: https://www.helpguide.org/a rticles/sleep/insomnia-caus di-fgx-kdzpd.htm For patients with DEPRESSION: http://www.unbroYoPro Globalgs.co m/depression Provider Impressions 81 year M with [...] Oblique fracture of the distal right fibula Agronomist: [facility] Transcribe Date/Time: Jun 03 2022 10:41A Dictated by : SREEKANTH PENDLETON MD This examination was interpreted and the report reviewed and electronically signed by: SREEKANTH PENDLETON MD on Jun 03 2022 10:43AM [facility] DIVISION OF RADIOLOGY Radiology Study observation (narrative) [facility] No Panel InformationOrdered By: Ccf Provider on 06-03-2022 [facility] XR Ankle - right AP and Late [...] AP/LAT/OBL RT -- RIGHT with 2 (accession [id number]), 3 (accession [id number]) views on 2 (accession [id number]), 3 (accession [id number]) images Comparison: None RESULT: Oblique fracture of the distal right fibula with approximately 3 mm displacement. No dislocation. Ankle mortise is maintained. Plantar calcaneal spur. Right knee prosthesis. Soft tissue swelling of the right ankle. DIVISION OF RADIOLOGY Provider, [facility] - 06/03/2022 * * *Final Report* [...] AP/LAT/OBL RT -- RIGHT with 2 (accession [id number]), 3 (accession [id number]) views on 2 (accession [id number]), 3 (accession [id number]) images Comparison: None RESULT: Oblique fracture of the distal right fibula with approximately 3 mm displacement. No dislocation. Ankle mortise is maintained. Plantar calcaneal spur. Right knee prosthesis. Soft tissue swelling of the right ankle. IMPRESSION IMPRESSION: Oblique fracture of the distal right fibula Agronomist: [facility] Transcribe Date/Time: Jun 03 2022 10:41A Dictated by : SREEKANTH PENDLETON MD This examination was interpreted and the report reviewed and electronically signed by: SREEKANTH PENDLETON MD on Jun 03 2022 10:43AM [facility] XR Tibia and Fibula - right AP [...] AP/LAT/OBL RT -- RIGHT with 2 (accession [id number]), 3 (accession [id number]) views on 2 (accession [id number]), 3 (accession [id number]) images Comparison: None RESULT: Oblique fracture of the distal right fibula with approximately 3 mm displacement. No dislocation. Ankle mortise is maintained. Plantar calcaneal spur. Right knee prosthesis. Soft tissue swelling of the right ankle. DIVISION OF RADIOLOGY Provider, [facility] - 06/03/2022 * * *Final Report* [...] AP/LAT/OBL RT -- RIGHT with 2 (accession [id number]), 3 (accession [id number]) views on 2 (accession [id number]), 3 (accession [id number]) images Comparison: None RESULT: Oblique fracture of the distal right fibula with approximately 3 mm displacement. No dislocation. Ankle mortise is maintained. Plantar calcaneal spur. Right knee prosthesis. Soft tissue swelling of the right ankle. IMPRESSION IMPRESSION: Oblique fracture of the distal right fibula Agronomist: [facility] Transcribe Date/Time: Jun 03 2022 10:41A Dictated by : SREEKANTH PENDLETON MD This examination was interpreted and the report reviewed and electronically signed by: SREEKANTH PENDLETON MD on Jun 03 2022 10:43AM EST [facility] Office Visit (Sleep Medicine )on 03-21-2022 Follow-up visit Diagnoses/Problems Assessed Obstructive sleep apnea, adult (327.23) (G47.33) Orders Obstructive sleep apnea, adult In Lab PSG Sleep Study, 6 years of age and greater; Status:Hold For - Scheduling; Requested for:21Mar2022; Perform:Sleep Lab - [place] [facility]; Order Comments:inspire titration study. Please start at 2.0V. do not use oral appliance during this study please.; Due:[id number];Ordered; For:Obstructive sleep apnea, adult; Ordered By:Justin Dial; [...] or mask interface, please FIRST contact your makeena. [employer] can be reached at [phone]. For questions concerning your SLEEP CLINIC appointment: Call [phone] SLEEP LAB [phone] or [phone]. CAUTIONS for New PAP users: 1. You [...] Sites: For patients with ALL SLEEP DISORDERS: [place] [employer] Sleep Medicine http://sleepeducation.org; or National Sleep Foundation: https://sleepfoundation.org For patients with ROSITA: [place] Sleep Apnea Association: https://www.sleepapnea.org For patients with RLS: RLS Foundation: https://www.rls.org For patients with INSOMNIA: https://www.helpguide.org/a rticles/sleep/insomnia-caus ec-tym-kiufa.htm For patients with DEPRESSION: http://www.unbrokenwings.co m/depression Provider [...] POSTPROC EVALon ANES POSTPROC EVAL HNO ID: [id number] Author: Wolfgang Carney MD Service: Anesthesiology Author Type: Physician Type: Anesthesia Postprocedure Evaluation Filed: 12/13/2021 12:49 PM Note Text: POST ANESTHESIA EVALUATION NOTE : 1940 Procedure Summary Date: 12/13/21 Room / Location: [facility] Endoscopy Anesthesia Start: 1110 Anesthesia Stop: 1132 Procedure: EGD DIAGNOSTIC Diagnosis: 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 (Follow-up of Small's esophagus) Scheduled Providers: Chidi Burton MD; Norma Angel APRN.[employer]UBE MOLDER; Wolfgang Carney MD Responsible Provider: Wolfgang Carney [...] December 13, 2021 TIME: 12:48 PM CSN: [id number] Normal [facility] ANES PRE-OPon 12-13-2021 ANES PRE-OP HNO ID: [id number] Author: Wolfgang Carney MD Service: Anesthesiology Author Type: Physician Type: Anesthesia Preprocedure Evaluation Filed: 12/13/2021 10:10 AM Note Text: ANESTHESIOLOGY DAY OF SURGERY NOTE : 1940 Procedure Information Date/Time: 12/13/21 1100 Scheduled providers: Chidi Burton MD; Norma Angel APRN.[employer] TUBE MOLDER; Wolfgang Carney MD Procedure: EGD DIAGNOSTIC Location: [facility] Endoscopy Estimated body mass index is [...] mg by mouth twice daily. - lancets (Knodium LANCETS) 30 gauge misc Use as directed to test glucose 3 times weekly. DX: E11.9 - dupilumab (DUPIXENT SUBCUTANEOUS) Inject subcutaneously as needed (taking every three weeks). 08/17/2021 reported taking every 3 weeks (Patient not taking: Reported on 12/02/2021 ) - cyanocobalamin, vitamin B-12, (VITAMIN B-12 INJECTION) by INJECTION(UNSPECIFIED PARENTERAL ROUTES) route once every month. - blood sugar diagnostic (ArpeggiTOUCH VERIO) test strip USE ONE STRIP TO CHECK GLUCOSE ONCE DAILY - ketoconazole (NIZORAL) 2 % shampoo Apply 1 application to affected area once daily as needed. - acyclovir (ZOVIRAX) 200 mg capsule Take 2 capsules by mouth twice daily. (suppressive therapy) (Patient not taking: Reported on 12/02/2021 ) - Blood-Glucose Meter (CycellUCH VERIO SYSTEM) misc Use as directed. No current facility-administered medications on file as of 12/13/2021. I have interviewed and examined the patient. I have reviewed the medical record and/or the pre-anesthesia evaluation, pertinent labs, and test results. This contains updated information obtained within 48 hours of Surgery/Procedure. SIGNATURE: Wolfgang Carney MD PATIENT NAME: Temo Garrison DATE: December 13, 2021 TIME: 10:09 AM CSN: [id number] Normal [facility] HISTORY PHYSICALon 2 HISTORY PHYSICAL HNO ID: [id number] Author: Chidi Burton MD Service: General Surgery [...] night. ? He is seeing someone in [place] [facility] because a steel wire in his [...] MEDICAL HISTORY (more content not included)... Normal [facility] SURGICAL PATHOLOGYon 022 CASE REPORT Normal [facility] Comment on above: Order Comment: Speci men Type: TISSUE SPECIMEN Ordering Facility: [facility] Address: [address] [place] [phone] Result Comment: Surg ica Pathology Report Case: [id number] Authorizing Provider: Chidi Burton MD Collected: 12/13/2021 11:25 AM Ordering Location: [facility]oscopy Received: 12/13/2021 01:42 PM Pathologist: Jose Alfredo Mcguire MD Specimens: A) - ANTRUM (STOMACH) BIOPSY B) - ESOPHAGUS BIOPSY, @40cm C) - ESOPHAGUS BIOPSY, @38cm Performed By: #### S #### [facility] CLIA [id number] CLIA [id number] [address] [place], [place] [id number] [place] [address] CLINICAL HISTORY 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 [facility] Comment on above: Order Comment: Speci men Type: TISSUE SPECIMEN Ordering Facility: [facility] Address: [address] [place] [address] Performed By: #### S #### [facility] CLIA [id number] [address] [place], [place] [address]NA LAB[facility]ATORY CLIA [id number] [address] FINAL DIAGNOSIS [facility] Comment on above: Order Comment: Spec men Type: TISSUE SPECIMEN Ordering Facility: [facility] Address: [address] [place] [address] Result Comment: A. A ntrum, biopsy: - Antral mucosa with foveolar hyperplasia and minimal chronic inflammation; no evidence of H. pylori. B. Esophagus, biopsy: - Fundic mucosa with minimal chronic inflammation; no evidence of intestinal metaplasia or dysplasia. C. Esophagus, biopsy: Inflamed squamous and cardiac-type mucosa with focal intestinal metaplasia; negative for dysplasia. Performed By: #### S #### [facility] CLIA [id number] [address] [place], [place] [address]NA LABORATORY CLIA [id number] [address] FINAL PERFORMING LAB Normal [facility] Comment on above: Order Comment: Speci men Type: TISSUE SPECIMEN Ordering Facility: [facility] Address: [address] [place] [address] Result Comment: Diag nostic interpretation performed at [facility], [address] [facility], [place] [address] CLIA# [id number] Lighting Engineer: Amairani Clark M.D. Performed By: #### S #### [facility] CLIA [id number] [address] [place], [place] [id number] [facility] CLIA [id number] [address] GROSS DESCRIPTION Normal [facility] Comment on above: Order Comment: Speci men Type: TISSUE SPECIMEN Ordering Facility: [facility] Address: [address] [place], [place] [id number] Result Comment: A. A NTRUM (STOMACH) BIOPSY. [...] 2021 8:05 PM Gross examination performed at [facility], [address] [place] [address] Performed By: #### S #### [facility] CLIA [id number] [address] [place] [address] OF [facility] CLIA [id number] [address] 12-02-2021 [facility] Telephone ([place]) TEMO GARRISON ([id number]) 1940 M Date Time Provider Department 12/02/21 ROE COOK During your visit today, we recorded the following information about you: Roe Cook APRN.CNP 12/02/2021 12:23 PM Signed Patient seen at [facility] 12/02 for upcoming EGD on 12/13 with . 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 Does patient need to hold this for 3 days prior to surgery? Roe Cook APRN.CNP 12/02/2021 3:50 PM Signed Please call and relay message below to patient. Thanks! Roe Cook APRN.PIECE DYE WORKER Chidi Burton MD You 21 minutes ago [...] Date Reviewed: 12/02/2021 Reviewed by: Roe Cook APRN.PIECE DYE WORKER - Fully Assessed Reason for Visit: Patient [...] mouth once daily. - blood sugar diagnostic (CycellUCH VERIO) test strip USE ONE STRIP TO [...] twice daily. (suppressive therapy) - Blood-Glucose Meter (CycellUCH VERIO SYSTEM) misc Use as directed. - [...] obstruction [N32.0] 05/28/2007 01/03/2014 Postoperative urethral stricture [[id number]] 11/26/2007 01/03/2014 Cellulitis and abscess of toe, [...] thrombosis) ( (more content not included)... Normal [facility] HISTORY PHYSICALon HISTORY PHYSICAL HNO ID: [id number] Author: Roe Cook APRN.PIECE DYE WORKER Service: ? Author Type: Nurse Practitioner Type: [...] of hemorrhage) - DVT (deep venous thrombosis) ([facility]) 08/06/2020 - Essential tremor - External hemorrhoids [...] complication, without long-term current use of insulin ([facility]) 06/07/[address] 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 Normal [facility] Tobacco Screening.on Fall risk assessment a) No falls within the last year [facility] [address] DO Work Phone: [phone] Tobacco use status CPHS b) No [facility] [facility] DO Work Phone: [phone] ARTERIAL BLOOD GASon 12-14-2 021 BASE EXCESS-BLOOD 6.1 mmol/L High -2.0 - 3.0 [facility] Comment on above: Performed By: #### B LGA1 #### [place] [address] BICARB, CALCULATED 29.6 mmol/L High 22.0 - 26.0 [facility] Comment on above: Performed By: #### Gianni LGA1 #### [place] [address] FIO2 21 % Normal [facility] Comment on above: Performed By: #### Gianni LGA1 #### [place] [address] Oxygen (Bld) [Partial pressure] 93 mm[Hg] Normal 85 - 95 [facility] Comment on above: Performed By: #### Gianni LGA1 #### [place] [address] PCO2 38 mmHg Normal 38 - 42 [facility] Comment on above: Performed By: #### Gianni LGA1 #### [place] [address] pH (Bld) 7.50 [pH] High 7.38 - 7.42 [facility] Comment on above: Performed By: #### Gianni LGA1 #### [place] [address] SO2 99 % Normal 94 - 100 [facility] Comment on above: Performed By: #### Gianni LGA1 #### [place] [address] COOX PANEL, ARTERIALon 09-28 CO HGB 1.6 % Abnormal [facility] Comment on above: Result Comment: REF VALUES NONSMOKERS 0.5-1.5% SMOKERS 0.5-10.0% Performed By: #### C OOXA #### [place] [address] DEOXY HGB 1.5 % Normal 0.0 - 5.0 [facility] Comment on above: Performed By: #### C OOXA #### [place] [id number] Hemoglobin (Bld) [Mass/Vol] 15.0 g/dL Normal 13.5 - 17.5 [facility] Comment on above: Performed By: #### C OOXA #### [address] [address] MET HGB 0.6 % Normal 0.0 - 1.5 [facility] Comment on above: Performed By: #### C OOXA #### [address] [address] OXY HGB 96.3 % Normal 94.0 - 98.0 [facility] Comment on above: Performed By: #### C OOXA #### [address] [address] Laboratory - Chemistry and C hemistry - [...] make patient management decisions.Fact sheet for providers: https://www.fda.gov/media/649645/downloadFact sheet for patients: https://www.fda.gov/media/076890/downloadThis test has received FDA Emergency Use Authorization (EUA) and has been verified by [facility] ([facility]). This test is only authorized for the duration of time that circumstances exist to justify the authorization of the emergency use of in vitro diagnostic tests for the detection of SARS-CoV-2 virus and/or diagnosis of COVID-19 infection under section 564(b)(1) of the Act, 21 U.S.C. 360bbb-3(b)(1), unless the authorization is terminated or revoked sooner. [facility] is certified under CLIA-88 as qualified to perform high complexity testing. Testing is performed in the [facility] laboratories located at [address] [place] [address]. Tobacco Screening.on Fall risk assessment b) One [...] 021 METHYLMALONIC ACID 170 nmol/L Normal 0-378 [facility] Comment on above: Result Comment: This test was developed and its performance characteristics determined by [facility]. It has not been cleared or approved by the Food and Drug Administration. Performed By: #### M HERIBERTO #### [facility] [address] [place], [place] [id number] TRIIODOTHYRONINEon 1 TRIIODOTHYRONINE 88 ng/dL Normal 60 - 200 [facility] Comment on above: Performed By: #### T 3 #### [facility] [address] [place] [address] CBC AND DIFFERENTIALon 07-22 Basophils (Bld) [#/Vol] 0.10 10*3/uL Normal 0.00 - 0.10 [facility] Comment on above: Performed By: #### C BCDF #### [address] [address] Basophils/100 WBC (Bld) 0.7 % Normal 0.0 - 2.0 [facility] Comment on above: Performed By: #### C BCDF #### [address] [address] Eosinophils (Bld) [#/Vol] 0.10 10*3/uL Normal 0.00 - 0.40 [facility] Comment on above: Performed By: #### C BCDF #### [address] [address] Eosinophils/100 WBC (Bld) 2.0 % Normal 0.0 - 6.0 [facility] Comment on above: Performed By: #### C BCDF #### [address] [address] Erythrocyte distribution width (RBC) [Ratio] 14.0 % Normal 11.5 - 14.5 [facility] Comment on above: Performed By: #### C BCDF #### [address] [address] Hematocrit (Bld) [Volume fraction] 42.1 % Normal 41.0 - 52.0 [facility] Comment on above: Performed By: #### C BCDF #### [address] [address] Hemoglobin (Bld) [Mass/Vol] 13.8 g/dL Normal 13.5 - 17.5 [facility] Comment on above: Performed By: #### C BCDF #### [address] [address] Lymphocytes (Bld) [#/Vol] 1.60 10*3/uL Normal 0.80 - 3.00 [facility] Comment on above: Performed By: #### C BCDF #### [address] [address] Lymphocytes/100 WBC (Bld) 22.4 % Normal 13.0 - 44.0 [facility] Comment on above: Performed By: #### C BCDF #### [address] [address] MCHC (RBC) [Mass/Vol] 32.7 g/dL Normal 32.0 - 36.0 [facility] Comment on above: Performed By: #### C BCDF #### [address] [address] MCV (RBC) [Entitic vol] 101 fL High 80 - 100 [facility] Comment on above: Performed By: #### C BCDF #### [address] [address] Monocytes (Bld) [#/Vol] 0.60 10*3/uL Normal 0.05 - 0.80 [facility] Comment on above: Performed By: #### C BCDF #### [address] [address] Monocytes/100 WBC (Bld) 7.6 % Normal 2.0 - 10.0 [facility] Comment on above: Performed By: #### C BCDF #### [address] [address] Neutrophils (Bld) [#/Vol] 4.90 10*3/uL Normal 1.60 - 5.50 [facility] Comment on above: Result Comment: Perc ent differential counts (%) should be interpreted in the context of the absolute cell counts (cells/L). Performed By: #### C BCDF #### [address] [address] Neutrophils/100 WBC (Bld) 67.3 % Normal 40.0 - 80.0 [facility] Comment on above: Performed By: #### C BCDF #### [address] [address] NUCLEATED RBC 0.1 /100 WBC Normal [facility] Comment on above: Performed By: #### C BCDF #### [address] [address] Platelets (Bld) [#/Vol] 223 10*3/uL Normal 150 - 450 [facility] Comment on above: Performed By: #### C BCDF #### [address] [address] RBC 4.16 x10E12/L Low 4.50 - 5.90 [facility] Comment on above: Performed By: #### C BCDF #### [address] [address] WBC (Bld) [#/Vol] 7.2 10*3/uL Normal 4.4 - 11.3 [facility] Comment on above: Performed By: #### C BCDF #### [place] [id number] COMPREHENSIVE PANELon 2020 ALP [Catalytic activity/Vol] 68 U/L Normal 33 - 136 [facility] Comment on above: Performed By: #### C MP #### [address] [address] Albumin [Mass/Vol] 3.8 g/dL Normal 3.4 - 5.0 [facility] Comment on above: Performed By: #### C MP #### [address] [address] ALT [Catalytic activity/Vol] 21 U/L Normal 10 - 52 [facility] Comment on above: Result Comment: Page ents treated with Sulfasalazine may generate falsely decreased results for ALT. Performed By: #### C MP #### [address] [address] Anion gap [Moles/Vol] 10 mmol/L Normal 10 - 20 [facility] Comment on above: Performed By: #### C MP #### [address] [address] AST [Catalytic activity/Vol] 19 U/L Normal 9 - 39 [facility] Comment on above: Performed By: #### C MP #### [address] [address] Bilirubin [Mass/Vol] 0.5 mg/dL Normal 0.0 - 1.2 [facility] Comment on above: Performed By: #### C MP #### [address] [address] Calcium [Mass/Vol] 8.7 mg/dL Normal 8.6 - 10.3 [facility] Comment on above: Performed By: #### C MP #### [address] [address] Chloride [Moles/Vol] 104 mmol/L Normal 98 - 107 [facility] Comment on above: Performed By: #### C MP #### [address] [address] Creatinine [Mass/Vol] 1.74 mg/dL High 0.50 - 1.30 [facility] Comment on above: Performed By: #### C MP #### [address] [address] GFR- AM. 46 mL/min/1.73m2 Abnormal >60 [facility] Comment on above: Result Comment: CALC ULATIONS OF ESTIMATED GFR ARE PERFORMED USING THE MDRD STUDY EQUATION FOR THE IDMS-TRACEABLE CREATININE METHODS. CLIN CHEM 2007;53:766-72 Performed By: #### C MP #### [address] [address] GFR-NON AM. 38 mL/min/1.73m2 Abnormal >60 [facility] Comment on above: Performed By: #### C MP #### [address] [address] Glucose [Mass/Vol] 136 mg/dL High 74 - 99 [facility] Comment on above: Performed By: #### C MP #### [address] [address] HCO3 (Bld) [Moles/Vol] 29 mmol/L Normal 21 - 32 [facility] Comment on above: Performed By: #### C MP #### [address] [address] Potassium [Moles/Vol] 4.3 mmol/L Normal 3.5 - 5.3 [facility] Comment on above: Performed By: #### C MP #### [address] [address] Protein [Mass/Vol] 6.2 g/dL Low 6.4 - 8.2 [facility] Comment on above: Performed By: #### C MP #### [address] [address] Sodium [Moles/Vol] 139 mmol/L Normal 136 - 145 [facility] Comment on above: Performed By: #### C MP #### [address] [address] Urea nitrogen [Mass/Vol] 25 mg/dL High 6 - 23 [facility] Comment on above: Performed By: #### C MP #### [address] [address] Complete Blood Count + Diffamerica dwyer 07-22-2021 Basophils/100 WBC (Bld) 0.7 % 0.0 - 2.0 [facility] Work Phone: Erythrocyte distribution width (RBC) [Ratio] 14.0 % See Below -[facility] Work Phone: Comment on above: Reference Range: 11. 5 - 14.5 Hematocrit (Bld) [Volume fraction] 42.1 % See Below -[facility] Work Phone: Comment on above: Reference Range: 41. 0 - 52.0 Hemoglobin (Bld) [Mass/Vol] 13.8 g/dL See Below -[facility] Work Phone: Comment on above: Reference Range: 13. 5 - 17.5 Lymphocytes/100 WBC (Bld) 22.4 % See Below -[facility] Work Phone: Comment on above: Reference Range: 13. 0 - 44.0 MCHC (RBC) [Mass/Vol] 32.7 g/dL See Below -[facility] Work Phone: Comment on above: Reference Range: 32. 0 - 36.0 MCV (RBC) [Entitic vol] 101 fL above high threshold 80 - 100 [facility] Work Phone: Monocytes/100 WBC (Bld) 7.6 % 2.0 - 10.0 [facility] Work Phone: Neutrophils/100 WBC (Bld) 67.3 % See Below [facility] Work Phone: Comment on above: Reference Range: 40. 0 - 80.0 Platelets (Bld) [#/Vol] 223 10*3/uL 150 - 450 [facility] Work Phone: RBC (Bld) [#/Vol] 4.16 {x10E12/L} below low threshold See Below [facility] Work Phone: Comment on above: Reference Range: 4.5 0 - 5.90 WBC (Bld) [#/Vol] 7.2 10*3/uL 4.4 - 11.3 [facility] [address] Work Phone: Complete Blood Count + Differential 0.10 {x10E9/L} See Below [facility] Work Phone: Comment on above: Reference Range: 0.0 0 - 0.10 Reference Range: 0.0 0 - 0.40 Complete Blood Count + Differential 0.60 {x10E9/L} See Below [facility] Work Phone: Comment on above: Reference Range: 0.0 5 - 0.80 Complete Blood Count + Differential 1.60 {x10E9/L} See Below [facility] Work Phone: Comment on above: Reference Range: 0.8 0 - 3.00 Complete Blood Count + Differential 4.90 {x10E9/L} See Below [facility] Work Phone: Comment on above: Reference Range: 1.6 0 - 5.50 Percent differential counts (%) should be interpreted in the context of the absolute cell counts (cells/L). Complete Blood Count + Differential 2.0 % 0.0 - 6.0 [facility] 204 Work Phone: Complete Blood Count + Differential 0.1 {/100_WBC} [facility] Work Phone: FOLATE, SERUMon 07-22-2021 Folate [Mass/Vol] [...] information. Performed By: #### F OLA2 #### [address] [address] Folate, Serumon 07-22-2021 Folate [Mass/Vol] 9.6 ng/mL >5.0 [facility] Work Phone: Comment on above: Low <3.4Borderline 3 .4-5.0Normal >5.0. Patients receiving more than 5 mg/day of biotin may have interference in test results. A sample should be taken no sooner than eight hours after previous dose. Contact the testing laboratory for additional information. IRON + TIBCon 07-22-2021 % SATURATION 51 % High 25 - 45 [facility] Comment on above: Performed By: #### I RONT #### [address] [address] Iron [Mass/Vol] 132 ug/dL Normal 35 - 150 [facility] Comment on above: Performed By: #### I RONT #### [address] [address] TIBC 258 ug/dL Normal 240 - 445 [facility] Comment on above: Performed By: #### I RONT #### [address] [place] [address] Laboratory - Chemistry and C hemistry - challengeon 07-22-2021 Albumin BCP dye [Mass/Vol] 3.8 g/dL 3.4 - 5.0 [facility] Work Phone: ALP [Catalytic activity/Vol] 68 U/L 33 - 136 [facility] Work Phone: ALT With P-5'-P [Catalytic activity/Vol] 21 U/L 10 - 52 [facility] Work Phone: Comment on above: Patients treated wit h Sulfasalazine may generate falsely decreased results for ALT. Anion gap [Moles/Vol] 10 mmol/L 10 - 20 [facility] Work Phone: AST With P-5'-P [Catalytic activity/Vol] 19 U/L 9 - 39 [facility] Work Phone: Bilirubin [Mass/Vol] 0.5 mg/dL 0.0 - 1.2 [facility] Work Phone: Calcium [Mass/Vol] 8.7 mg/dL 8.6 - 10.3 [facility] Work Phone: Chloride [Moles/Vol] 104 mmol/L 98 - 107 [facility] [address] Work Phone: CO2 [Moles/Vol] 29 mmol/L 21 - 32 [facility] Work Phone: Creatinine [Mass/Vol] 1.74 mg/dL above high threshold See Below [facility] Work Phone: Comment on above: Reference Range: 0.5 0 - 1.30 Glucose [Mass/Vol] 136 mg/dL above high threshold 74 - 99 [facility] Work Phone: Iron [Mass/Vol] 132 ug/dL 35 - 150 [facility] Work Phone: Iron binding capacity [Mass/Vol] 258 ug/dL 240 - 445 [facility] Work Phone: Potassium [Moles/Vol] 4.3 mmol/L 3.5 - 5.3 [facility] Work Phone: Protein [Mass/Vol] 6.2 g/dL below low threshold 6.4 - 8.2 [facility] Work Phone: Sodium [Moles/Vol] 139 mmol/L 136 - 145 [facility] Work Phone: Urea nitrogen [Mass/Vol] 25 mg/dL above high threshold 6 - 23 [facility] Work Phone: Methylmalonic Acid, Serumon 07-22-2021 Methylmalonate [Moles/Vol] 170 nmol/L 0-378 [facility] Work Phone: Comment on above: This test was develo ped and its performance characteristicsdetermined by [employer]. It has not been cleared or approvedby the Food and Drug Administration. No Panel Informationon 07-22 46 {mL/min/1.73m2} Abnormal >60 [facility] Work Phone: Comment on above: CALCULATIONS OF CLEMETNINE MATED GFR ARE PERFORMED USING THE MDRD STUDY EQUATION FOR THE IDMS-TRACEABLE CREATININE METHODS. CLIN CHEM 2007;53:766-72 38 {mL/min/1.73m2} Abnormal >60 [facility] [facility] Work Phone: 51 % above high threshold 25 - 45 [facility] Work Phone: Triiodothyronine, Level (T3) on 07-22-2021 T3 [Mass/Vol] 88 ng/dL 60 - 200 [facility] Work Phone: VITAMIN B12on 10-07-2021 Cobalamin (Vitamin B12) [Mass/Vol] 352 pg/mL Normal 211 - 911 [facility] Comment on above: Performed By: #### V TB12 #### [facility] [address] [place] [address] Vitamin B12, Serumon 021 Cobalamin (Vitamin B12) [Mass/Vol] 352 pg/mL 211 - 911 [facility] Work Phone: Surgical Pathologyon 317 Surgical Pathology [id number] [facility] PATHOLOGY AND LABORATORY MEDICINE [address] [place] [id number] FINAL SURGICAL PATHOLOGY REPORT [facility] E: TEMO GARRISON .O.B.: 1940 77 Y M [facility] NO.: [id number]: [id number] PROCEDURE 10/04/2018 DATE:SURGEON: ASIYA CASTRO MD [...] theirperformance characteristics determined by the clinical laboratories [facility]. They have not been cleared by the [...] false negativity on decalcified specimens.Professional Performing Location: [address] [address]. DEPARTMENT OF PATHOLOGY AND LABORATORY MEDICINE [place], [place] [address] Normal [facility] Pain Management Consultation Noteon 11-02-2017 Pain Management Consultation Note Normal [facility] ([place]) Vital Signs Date Time Vital Sign Value Performing Clinician Facility 05-30-2023 12:47-0400 Body height 172.7 cm Marlon Chapin MD Work Phone: [facility] 05-30-2023 12:47-0400 Body mass index (BMI) [Ratio] 27.06 kg/m2 Marlon Chapin MD Work Phone: [facility] 05-30-2023 12:47-0400 Body temperature 96.91 [degF] Marlon Chapin MD Work Phone: [facility] 05-30-2023 12:47-0400 Body weight 80.74 kg Marlon Chapin MD Work Phone: [facility] 05-30-2023 12:47-0400 Heart rate 62 /min Marlon Chapin MD Work Phone: [facility] 05-30-2023 12:47-0400 SaO2% (BldA) [Mass fraction] 97 % Marlon Chapin MD Work Phone: [facility] 05-18-2023 15:22-0400 Body height 172.7 cm Belén Hamshire PA-C Work Phone: [facility] 05-18-2023 15:22-0400 Body temperature 97.3 [degF] Belén Dolores PA-C Work Phone: [facility] 05-18-2023 15:22-0400 Body weight 81.65 kg Belén Hamshire PA-C Work Phone: [facility] 05-18-2023 15:22-0400 Diastolic blood pressure 82 mm[Hg] Belén Hamshire PA-C Work Phone: [facility] 05-18-2023 15:22-0400 Heart rate 104 /min Belén Dolores PA-C Work Phone: [facility] 05-18-2023 15:22-0400 SaO2% (BldA) [Mass fraction] 99 % Belén Dolores PA-C Work Phone: [facility] 05-18-2023 15:22-0400 Systolic blood pressure 136 mm[Hg] Belén Dolores PA-C Work Phone: [facility] 02-27-2023 15:01-0400 Diastolic blood pressure 83 mm[Hg] Monserrat Cross Miedel Work Phone: [facility] DO Work Phone: 02-27-2023 15:01-0400 Heart rate 84 /min Monserrat Cross Miedel Work Phone: [facility] A[facility]70 DO Work Phone: 02-27-2023 15:01-0400 Respiratory rate 18 /min Monserrat Cross Miedel Work Phone: [facility] A2470 DO Work Phone: 02-27-2023 15:01-0400 Systolic blood pressure 124 mm[Hg] Monserrat Cross Miedel Work Phone: [facility] A2470 DO Work Phone: 11-21-2022 15:02-0500 Body height 173.99 cm Monserrat Cross Miedel Work Phone: [facility] 2300 Work Phone: 11-21-2022 15:02-0500 Body mass index (BMI) [Ratio] 25.92 kg/m2 Monserrat Cross Miedel Work Phone: [facility] 2300 Work Phone: 11-21-2022 15:02-0500 Body surface [...] /min Monserrat Cross Miedel Work Phone: [facility] [address]00 Work Phone: 11-21-2022 15:02-0500 Respiratory rate [...] kg Monserrat Cross Miedel Work Phone: [facility] A2470 DO Work Phone: 12-16-2021 16:12-0500 Diastolic blood pressure 93 mm[Hg] Monserrat Cross Miedel Work Phone: [facility] A2470 DO Work Phone: 12-16-2021 16:12-0500 Heart rate 83 /min Monserrat Cross Miedel Work Phone: [facility] A2470 DO Work Phone: 12-16-2021 16:12-0500 SaO2% (BldA) [Mass fraction] 98 % Monserrat Cross Miedel Work Phone: [facility] A2470 DO Work Phone: 12-16-2021 16:12-0500 Systolic blood pressure 132 mm[Hg] Monserrat Cross Miedel Work Phone: [facility] A2470 DO Work Phone: 12-16-2021 16:12-0500 0 1 Monserrat Domingoedel Work Phone: [facility] A2470 DO Work Phone: Comment on above: [employer] 10-14-2021 09:08-0500 Body height 175.26 cm Monserrat Domingoedel Work Phone: [facility] 400 DO Work Phone: 10-14-2021 09:08-0500 Body mass index (BMI) [Ratio] 27.26 kg/m2 Monserrat America Chayoedel Work Phone: [facility] 400 DO Work Phone: 10-14-2021 09:08-0500 Body surface area Derived from formula 2 m2 Monserrat Domingoedel Work Phone: [facility] 400 DO Work Phone: 10-14-2021 09:08-0500 Body temperature 98.6 [degF] Monserrat Cross Miedel Work Phone: [facility] 400 DO Work Phone: 10-14-2021 09:08-0500 Body weight 83.73 kg Monserrat Cross Miedel Work Phone: [facility] 400 DO Work Phone: 10-14-2021 09:08-0500 Diastolic blood pressure 66 mm[Hg] Monserrat Cross Miedel Work Phone: [facility] 400 DO Work Phone: 10-14-2021 09:08-0500 Heart rate 88 /min Monserrat Domingoedel Work Phone: [facility] 400 DO Work Phone: 10-14-2021 09:08-0500 SaO2% (BldA) [Mass fraction] 98 % Monserrat Domingoedel Work Phone: [facility] 400 DO Work Phone: 10-14-2021 09:08-0500 Systolic blood pressure 132 mm[Hg] Monserrat Cross Miedel Work Phone: [facility] 400 DO Work Phone: 09-15-2021 09:07-0500 Body height 175.26 cm Monserrat Cross Miedel Work Phone: [facility] 400 DO Work Phone: 09-15-2021 09:07-0500 Body mass index (BMI) [Ratio] 27.5 kg/m2 Monserrat Cross Miedel Work Phone: [facility] 400 DO Work Phone: 09-15-2021 09:07-0500 Body surface area Derived from formula 2 m2 Monserrat Wilson Work Phone: [facility] 400 DO Work Phone: 09-15-2021 09:07-0500 Body temperature 97.7 [degF] Monserrat Domingoedyaw Work Phone: [facility] 400 DO Work Phone: 09-15-2021 09:07-0500 Body weight 84.48 kg Monserrat Wilson Work Phone: [place] [address] DO Work Phone: 09-15-2021 09:07-0500 Diastolic blood pressure 76 mm[Hg] Monserrat Domingoedyaw Work Phone: [place] [address] DO Work Phone: 09-15-2021 09:07-0500 Heart rate 68 /min Monserrat Wilson Work Phone: [place] [address] DO Work Phone: 09-15-2021 09:07-0500 SaO2% (BldA) [Mass fraction] 83 % Monserrat Wilson Work Phone: [place] [address] DO Work Phone: 09-15-2021 09:07-0500 Systolic blood pressure 134 mm[Hg] Monserrat Wilson Work Phone: [place] [address] DO Work Phone: 09-02-2021 10:50-0500 Body height 175.26 cm Monserrat Wilson Work Phone: [facility] [place] Work Phone: 09-02-2021 10:50-0500 Body mass index (BMI) [Ratio] 27.58 kg/m2 Monserrat Domingoedyaw Work Phone: -Otolaryngology -[place] [address] [place] Work Phone: 09-02-2021 10:50-0500 Body surface area Derived from formula 2.01 m2 Monserrat Wilson Work Phone: -Otolaryngology -[place] Work Phone: 09-02-2021 10:50-0500 Body temperature 97.5 [degF] Monserrat Wilson Work Phone: -Otolaryngology -[place] Work Phone: 09-02-2021 10:50-0500 Body weight 84.7 kg Monserrat Wilson Work Phone: -Otolaryngology -[place] Work Phone: 09-02-2021 10:50-0500 Heart rate 83 /min Monserrat Wilson Work Phone: -Otolaryngology -[place] Work Phone: 09-02-2021 10:50-0500 SaO2% (BldA) [Mass fraction] 96 % Monserrat Wilson Work Phone: -Otolaryngology -[place] Work Phone: Encounters Encounter Date Encounter Type Care Provider Facility Start: 10-04-2023 End: 10-04-2023 ambulatory MALICK AL Facility:[facility] Start: 10-04-2023 End: 10-04-2023 Subsequent hospital visit by physician Xr [facility] Pao Work Phone: Radiology Comment on above: Acute cough [R05.1] Start: 09-13-2023 Refill Chidi schaffer MD Work Phone: General Surgery Comment on above: Refill Request Start: 06-08-2023 End: 06-08-2023 ambulatory CHIDI BURTON Facility:[facility] Start: 06-08-2023 End: 06-08-2023 Patient encounter procedure Chidi Burton MD Work Phone: General Surgery Comment on above: Bright red blood per rectum (Primary Dx); Hemorrhoids, internal Start: 05-30-2023 ambulatory MARLON Danielson ty:[facility] Start: 05-30-2023 End: 05-30-2023 Office outpatient new 30 minutes Marlon Chapin MD Work Phone: [facility] Comment on above: Other chronic pain Start: 05-18-2023 End: 05-18-2023 ambulatory MONSERRAT WILSON Facility:[facility] Start: 05-18-2023 End: 05-18-2023 Patient encounter procedure Belén Reyes PA-C Work Phone: General Surgery Comment on above: Bright red blood per rectum (Primary Dx); Hemorrhoids, internal Start: 04-11-2023 ambulatory MARLON CHAPIN Facility :[facility] Start: 02-27-2023 Current tobacco non-user cad cap copd pv dm Monserrat Wilson [id number] Work Phone: Start: 02-27-[address] Monserrat Wilson Facility:[id number] Start: 02-17-2023 Refill Roberto Younger i, MD Work Phone: Gastroenterology Comment on above: Refill Request Start: 02-15-2023 Telephone encounter [facility] Provider [facility] Comment on above: Appointment Start: 11-21-2022 Current tobacco non-user cad cap copd pv dm Monserrat Wilson Work Phone: [facility] 2305 Work Phone: Start: 11-21-2022 ambulatory Justin Dial Facilit y:[id number] Start: 11-01-2022 Rx Renewal Monserrat Cruz l Work Phone: AY-Zqbdzqzdd-Gqzpm 204 Work Phone: Start: 10-17-2022 ambulatory Nardine Zakhary Facilit y:[facility] Start: 08-26-2022 Telephone encounter Carol Tranjaciel BANKS.HAKAN Work Phone: Gastroenterology Comment on above: Patient Update; Page ent Question Start: 08-03-2022 Refill Carol Tran APR N.PIECE DYE WORKER Work Phone: Gastroenterology Comment on above: Refill Request Start: 06-03-2022 End: 06-03-2022 Subsequent hospital visit by physician Xr [facility] Melba Work Phone: Radiology Comment on above: Lower extremity inju ry, right, initial encounter [S89.91XA] Start: 05-14-2022 ambulatory Wilner Stuart Work Phone: Hematology/Oncology Comment on above: Eliquis Start: 05-12-2022 ambulatory Nardine Zakhary Facilit y:[facility] Sleep [facility] Start: 03-21-2022 ambulatory Nardine Zakhary Facilit y:[id number] Start: 01-05-2022 End: 01-05-2022 ambulatory Carol Tran SOAP GRINDER.PIECE DYE WORKER Work Phone: Gastroenterology Comment on above: History of Small's esophagus (Primary Dx) Start: 01-05-2022 End: 01-05-2022 Telemedicine consultation with patient Carol Tran APRN.HAKAN [facility] Start: 12-16-2021 Current tobacco non-user cad cap copd pv dm Monserrat Wilson Work Phone: [facility] A2470 DO Work Phone: Start: 11-19-2021 Telephone encounter Chidi Burton MD Work Phone: General Surgery Comment on above: EGD; Procedure Follo w Up (EGD completed on 12/13/2021) Start: 10-14-2021 Office outpatient visit 15 minutes Monserrat Wilson Work Phone: [facility] [address] [place] Work Phone: Start: 10-01-2021 Chart Update Monserrat Cross Miede l [facility] [place] Work Phone: Start: 09-15-2021 Office consultation new/estab patient 80 min Monserrat E Miedel Work Phone: [facility] 400 DO Work Phone: Start: 09-15-2021 Office outpatient ne w 60 minutes Monserrat Cross Miedel Work Phone: [facility] 400 DO Work Phone: Start: 09-15-2021 Patient encounter procedure Monserrat America Domingoedel Work Phone: [facility] 400 DO Work Phone: Start: 09-02-2021 Current tobacco non-user cad cap copd pv dm Monserrat E Miedel Work Phone: RJ-Pmjrbxwmubhvrl-[place] [address] [place] Work Phone: Start: 08-30-2021 AUDIT Monserrat E Miede l Work Phone: BK-Zauqwpwcw-Bbpeb 204 Work Phone: Start: 08-27-2021 AUDIT Monserrat E Miede l Work Phone: KN-Dbgoihvsq-Lraun 204 Work Phone: Start: 07-28-2021 Chart Update Monserrat E Miede l Work Phone: AE-Mjthaixis-Mivsp 204 Work Phone: Start: 07-23-2021 Chart Update Monserrat E Miede l Work Phone: YT-Xpzttocld-Lhkga 204 Work Phone: Start: 07-16-2021 Phys/qhp telephone evaluation 11-20 min Monserrat Tysonyaw Work Phone: XL-Avjdlwwsl-Monxr 204 Work Phone: Start: 06-11-2021 AUDIT Monserrat Tysone l Work Phone: BA-Lzfmwenft-Kzhtt 204 Work Phone: Start: 03-08-2021 AUDIT Monserrat Domingoede l Work Phone: [facility] 204 Work Phone: Start: 12-07-2020 End: 12-07-2020 Patient encounter procedure [facility] Start: 11-12-2020 End: 11-12-2020 Patient encounter procedure [facility] Start: 10-04-2018 Patient encounter procedure [facility] Start: 12-19-2017 Ambulatory [facility] Facility :[facility] Start: 10-30-2017 Ambulatory RHINA WALTER [facility] ility:A Procedures Date Procedure Procedure [...] Author Start: 08-18-2029 Tetanus vaccination TETANUS [facility] Start: 08-18-2029 Urine microalbumin profile DTaP,Tdap,Td Vaccine (4 - Td or Tdap) [facility] Start: 06-16-2024 Covid-19 Vaccine ( season) Covid-19 Vaccine () [facility] Start: 06-16-2024 Covid-19 Vaccine () Covid-19 Vaccine () [facility] Start: 06-16-2024 Influenza vaccination Influenz a Vaccine (#1) [facility] Start: 10-16-2023 Advance Directive Discussion Advance Directive Discussion [facility] Start: 06-16-2023 Covid-19 Vaccine () Covid-19 Vaccine () [facility] Start: 06-16-2023 Influenza vaccination C [facility] Start: 11-13-2022 COVID-19 VACCINE (6 - Pfizer series) COVID-19 VACCINE (6 - Pfizer series) [facility] Start: 10-16-2022 ADVANCE DIRECTIVE DISCUSSION ADVANCE DIRECTIVE DISCUSSION [facility] Start: 10-16-2022 DEPRESSION ASSESSMENT DEPRESSION ASS ESSMENT [facility] Start: 06-16-2022 Influenza vaccination INFLUENZA (#1) [facility] Start: 11-14-2021 COVID-19 VACCINE (4 - Booster for Pfizer series) COVID-19 VACCINE (4 - Booster for Pfizer series) [facility] Start: 11-01-2021 NPVSLEEP, Provider: Justin Dial, Status: Pen, Time: 4:00 PM NPVSLEEP, Provider: Justin Dial, Status: Pen, Time: 4:00 PM RK-Qeeemqidcuuetf-Adk ma MAC1 [address] [place] Work Phone: Start: 11-01-2021 FUVGENERAL, Provider : Malick Weber, Status: Pen, Time: 9:00 AM DIVINA, Provider: Malick Weber, Status: Pen, Time: 9:00 AM -[place] [address] [place] Work Phone: Start: 10-16-2021 ADVANCE DIRECTIVE DISCUSSION ADVANCE DIRECTIVE DISCUSSION [facility] Start: 10-16-2021 DEPRESSION ASSESSMENT DEPRESSION ASS ESSMENT [facility] Start: 10-14-2021 FUV, Provider: Temo Huitron, Status: Pen, Time: 9:00 AM FUV, Provider: Temo Huitron, Status: Pen, Time: 9:00 AM [facility] [address] DO Work Phone: Start: 09-28-2021 PFT, Provider: [facility] PFT ROOM,[id number], Status: Pen, Time: 10:00 AM PFT, Provider: [facility] PFT ROOM,[id number], Status: Pen, Time: 10:00 AM [facility] 400 DO Work Phone: Start: 09-15-2021 NPV, Provider: Temo Huitron, Status: Pen, Time: 9:00 AM NPV, Provider: Temo Huitron, Status: Pen, Time: 9:00 AM [facility] Work Phone: Start: 09-02-2021 NPV, Provider: Florina Segovia, Status: Pen, Time: 10:40 AM NPV, Provider: Florina Segovia, Status: Pen, Time: 10:40 AM [facility] 204 Work Phone: Start: 08-05-2021 NPV, Provider: Florina Segovia, Status: Pen, Time: 10:20 AM NPV, Provider: Florina Segovia, Status: Pen, Time: 10:20 AM [facility] Work Phone: Start: 06-16-2021 Influenza vaccination INFLUENZA (#1) [facility] Start: 06-01-2021 SERUM CREATININE SERUM CREATININE Cl [facility] Start: 11-27-2020 Urine microalbumin profile DTAP,TDAP,TD (3 - Td or Tdap) [facility] Start: 10-13-2020 Sleep std airflow hr t rate&o2 sat effort unatt Home Sleep Apnea Test XS-Rnneprgzc-Jojqb 204 Work Phone: Start: 04-28-2020 Hemoglobin A1c measurement HbA1C [facility] Start: 04-28-2020 Hemoglobin A1c/Hemoglobin.total in Blood HBA1C [facility] Start: 02-28-2020 Glaucoma screening Dilated Retinal E xam [facility] Start: 02-28-2020 Hepatitis C antibody , confirmatory test DILATED RETINAL EXAM [facility] Start: 07-03-2019 Adult depression screening assessment DEPRESSION SCREENING [facility] Start: 01-25-2019 ANNUAL PCP TEAM CHRONIC DISEASE VISIT ANNUAL PCP TEAM CHRONIC DISEASE VISIT [facility] Start: 12-07-2018 Hepatitis B screening URINE ALBUMIN:CREATININE RATIO [facility] Start: 09-22-2018 Hepatitis B surface antibody level LDL CHOLESTEROL [facility] Start: 06-01-2018 HEMOGLOBIN/HEMATOCRIT HEMOGLOBIN/HEM ATOCRIT [facility] Start: 08-24-2017 End: 08-24-2017 Appointment Appointment [facility] Work Phone: Start: 2016 RSV Vaccine (1 - 1-dose 75+ series) RSV Vaccine (1 - 1-dose 75+ series) [facility] Start: 2001 Hepatitis B Vaccine (1 of 3 - Risk 3-dose series) Hepatitis B Vaccine (1 of 3 - Risk 3-dose series) [facility] Start: 2001 RSV Vaccine (1 - 1-dose 60+ series) RSV Vaccine (1 - 1-dose 60+ series) [facility] Start: 1991 SHINGRIX VACCINE (1 of 2) SHINGRIX VACCINE (1 of 2) [facility] Start: 1986 Screening for malignant neoplasm of colon COLORECTAL CANCER SCREENING DISCUSSION [facility] Start: 1959 Anxiety Screening Anxiety Screening [facility] Start: 1959 BP CONTROLLED (<130/80) BP CONTROLLED (<130/80) [facility] Start: 1959 Depression Screening Depression Scre ening [facility] Start: 1951 3 comp foot exam completed DIABETIC FOOT EXAM [facility] Start: 1951 Diabetic foot examination Diabetic Foot Exam [facility] Start: 06-08-1942 COVID-19 VACCINE (#1) COVID-19 VACCI NE (#1) [facility] NEGATED: Highlighted row has been ruled out! Planned Goals not documented BX-Jaemtflnq-Rtltk 204 Work Phone: Immunizations Immunization Date Immunization Notes Care Provider Beto stubbs 09-29-2022 Pfizer COVID-19 Vac Bivalent 30 MCG/0.3ML Intramuscular Suspension Monserrat E Miedel Work Phone: [facility] 2300 Work Phone: 07-05-2022 Fluad Quadrivalent 0 .5 ML Intramuscular Prefilled Syringe Monserrat E Miedel Work Phone: [facility] [facility]00 Work Phone: 07-05-2022 influenza virus vacc ine, unspecified formulation Marlon Chapin MD Work Phone: [facility] 03-07-2022 Comirnaty 30 MCG/0.3 ML Intramuscular Suspension Monserrat E Miedel Work Phone: NE-Efzbkcrwx-Sujda 204 Work Phone: 08-17-2021 zoster vaccine recombinant Monserrat E Miedel Work Phone: [facility] A2470 DO Work Phone: 07-15-2021 Pfizer-BioNTech COVI D-19 Vacc 30 MCG/0.3ML Intramuscular Suspension Monserrat E Miedel Work Phone: [facility] [place] [address] [place] Work Phone: Comment on above: Series: 04-24-2021 zoster vaccine recombinant Monserrat E Miedel Work Phone: [facility]ul[facility] [place] [place] A2470 DO Work Phone: 12-07-2020 Pfizer-BioNTech COVI D-19 Vacc 30 MCG/0.3ML Intramuscular Suspension Monserrat E Miedel Work Phone: [facility] 400 DO Work Phone: Comment on above: Series: 11-12-2020 Pfizer-BioNTech COVI D-19 Vacc 30 MCG/0.3ML Intramuscular Suspension Monserrat E Miedel Work Phone: [facility] [place] Work Phone: Comment on above: Series: 07-16-2020 Fluad Quadrivalent 0 .5 ML Intramuscular Prefilled Syringe Monserrat Domingoedel Work Phone: MG-Pulm [facility] A2470 DO Work Phone: 08-19-2019 influenza, high dose seasonal, preservative-free Monserrat E Miedel Work Phone: [facility] A2440 DO Work Phone: 08-18-2019 tetanus toxoid, redu christian diphtheria toxoid, and acellular pertussis vaccine, adsorbed Monserrat America Miedel Work Phone: [facility] A2000 DO Work Phone: 07-25-2016 influenza, high dose seasonal, preservative-free Monserrat E Miedel Work Phone: [facility] 08-06-2015 influenza, seasonal, injectable Monserrat E Miedel Work Phone: [facility] 11-14-2014 pneumococcal conjuga te vaccine, 13 valent Monserrat E Miedel Work Phone: [facility] 08-01-2013 influenza virus vacc ine, unspecified formulation Chidi Burton MD Work Phone: [facility] 07-19-2012 influenza virus vacc ine, unspecified formulation Chidi Burton MD Work Phone: [facility] 08-18-2011 influenza virus vacc ine, unspecified formulation Chidi Burton MD Work Phone: [facility] 11-27-2010 tetanus toxoid, redu christian diphtheria toxoid, and acellular pertussis vaccine, adsorbed Chidi Burton MD Work Phone: [facility] 08-19-2008 influenza virus vacc ine, unspecified formulation Chidi Burton MD Work Phone: [facility] Work Phone: 08-19-2008 pneumococcal polysaccharide vaccine, 23 valent Chidi Burton MD Work Phone: [facility] Work Phone: 08-20-2007 influenza virus vacc ine, whole virus Monserratlizz Wilson Work Phone: [facility] A2470 DO Work Phone: 08-14-2007 influenza virus vacc ine, unspecified formulation Chidi Burton MD Work Phone: [facility] Work Phone: 09-01-2006 influenza virus vacc ine, unspecified formulation Chidi Burton MD Work Phone: [facility] Work Phone: 08-18-2005 influenza virus vacc ine, unspecified formulation Chidi Burton MD Work Phone: [facility] 09-28-2004 influenza virus vacc ine, unspecified formulation Chidi Burton MD Work Phone: [facility] Work Phone: 09-15-2003 diphtheria and tetan us toxoids, adsorbed for pediatric use Chidi Burton MD Work Phone: [facility] Work Phone: 07-16-1999 pneumococcal polysaccharide vaccine, 23 valent Chidi Burton MD Work Phone: [facility] Work Phone: influenza virus vacc ine, unspecified formulation Monserrat Wilson Work Phone: [facility] 400 DO Work Phone: Comment on above: Approx 16Jul2021 Ser ies: Payers Date Payer Category Payer Medicare AET[employer] MEDICARE A ETNA MEDICARE PPO [id number] 2021-Present [phone] [address] [place] [address] PPO [id number] 2021 Medicare AETNA MEDICARE A ETNA MEDICARE PPO [id number] 2021-Present [phone] [address] [place] [address] PPO [id number] 2017 Private Health Insurance 2013 Medicare [id number] 2013 Private Health Insurance 101 [id number] 1941 Unknown [id number] 1941 Unknown [id number] 51 1941 Unknown [id number] 51 1941 Unknown [id number] 56 1941 Unknown [id number] 56 1941 Unknown [id number] 56 1941 Unknown [id number] 56 1941 Unknown [id number] 56 1941 Unknown [id number] 94 1941 Unknown [id number] 94 Medicare [id number] Unknown Social History Date Type Detail Facility Start: 08-10-2020 End: 09-20-2020 Never a smoker Never a smoker [facility] Comment on above: quit 1975; Start: 06-03-2022 Tobacco smoking status NHIS Ex-smoker [facility] Start: 10-16-1955 End: 10-16-1975 History of tobacco use Current smoker [facility] Start: 10-16-1955 End: 10-16-1975 History of tobacco use Cigarette Smoker [facility] Start: 08-10-2020 End: 06-03-2022 Alcohol intake Current drinker of alcohol (finding) [facility] Start: 08-06-2020 History SDOH Alcohol Comment 2-3 drinks per day [facility] Start: 06-01-2020 End: 06-03-2022 Tobacco Comment QUIT 1975 [facility] Start: 1940 Sex Assigned At Not on file C [facility] Start: 11-13-2021 End: 06-03-2022 Exposure to SARS-CoV-2 (event) Not sure [facility] Start: 04-01-2020 End: 06-03-2022 Tobacco use and exposure Smokeless tobacco non-user [facility] Start: 09-20-2020 End: 05-18-2023 Tobacco use panel [facility] Adult Depression Screening Assessment 0 [facility] Start: 05-06-2019 Gender identity Identifies as male gender (finding) [facility] Start: 04-01-2020 Tobacco smoking status TXIS Occasional tobacco smoker [facility] History of tobacco use Cigar Smoker [facility] How often to you hav e a drink containing alcohol? 4 or more times a week [facility] Start: 04-01-2020 Tobacco Comment occas [facility] Start: 04-01-2020 Alcohol Comment states everyday . [facility] NEGATED: Highlighted row - - DL-Ktintnina-Vmacu 204 Work Phone: Medical Equipment Procedure Code Equipment Code Equipment Origin al Text Equipment Identifier Dates Generator Implantable Pulse - [id number] Start: 12-02-2016 Lead Upper Airwa y Stimulation - [id number] Start: 12-02-2016 Lead Respiratory Sensing - [id number] Start: 12-02-2016 [id number] Start: 11-23-2018 Comment on above: USE ONE STRIP TO NAIN CK GLUCOSE ONCE DAILY Use as directed to t est glucose 3 times weekly. DX: E11.9 Functional Status Date Assessment Result Facility NEGATED: Highlighted row Functional performance Functional status health issues are not documented Disease DQ-Brprgekye-Vgbgp 204 Work Phone: Mental Status Date Assessment Result Facility NEGATED: Highlighted row Cognitive function [Interpretation] Cognitive status health issues are not documented Disease ZR-Gkzgduoqr-Wpbxj 204 Work Phone: Clinical Notes 12-17-2014 to 10-04-2023 Telephone Encounter - Dayanara Mandujano RN - 09/13/2023 10:15 AM Chidi Salazar MD - 06/08/2023 12:21 PM EDTPatient Urszula Baires LPN - 06/08/2023 12:09 PM EDT Note Date & Type Note Facility 10-04-2023 Note HNO ID: [id number] Author: Clair Asher RT(R) Service: ? Author Type: Lidar Scientist Type: Progress Notes Filed: 10/04/2023 2:22 PM [...] RT Crystal(R) October 04, 2023 2:15 PM [facility] 10-04-2023 Note HNO ID: [id number] Author: Teresa Rudd PA Service: ? Author Type: Physician Artist Manager Type: Progress Notes Filed: 10/04/2023 3:04 PM [...] Dr. Berry Chronic kidney disease, stage 3 ([facility]) Seeing Dr. Moss DDD (degenerative disc disease), cervical DDD (degenerative disc disease), lumbar Seeing Dr. Thayer Diarrhea Diverticulosis of colon (without mention of hemorrhage) DVT (deep venous thrombosis) ([facility]) 08/06/2020 Essential tremor External hemorrhoids [...] complication, without long-term current use of insulin ([facility]) 06/07/[address] Owens Uveitis [...] 600 mg by mouth twice daily. lancets (Knodium LANCETS) 30 gauge misc Use as directed to test glucose 3 times weekly. DX: E11.9 dupilumab (DUPIXENT SUBCUTANEOUS) Inject subcutaneously as needed (taking every three weeks). 08/17/2021 reported taking every 3 weeks cyanocobalamin, vitamin B-12, (VITAMIN B-12 INJECTION) by INJECTION(UNSPECIFIED PARENTERAL ROUTES) route once every month. blood sugar diagnostic (Rebelle Bridal) test strip USE ONE STRIP TO CHECK GLUCOSE ONCE DAILY losartan (COZAAR) 25 mg tablet TAKE 1 TABLET DAILY ketoconazole (NIZORAL) 2 % shampoo Apply 1 application to affected area once daily as needed. atorvastatin (LIPITOR) 20 mg tablet Take 1 tablet by mouth once daily. Blood-Glucose Meter (CANDDi VERIO SYSTEM) misc Use as directed. Cholecalciferol, Vitamin D3, 2,000 unit ORAL Cap Take 2,000 Units by mouth. ascorbic acid(VITAMIN C 500 MG TAB) Take one (1) tablet twice daily. FAMILY HISTORY Problem Relation Age of Onset Diabetes Father other (down'ssyndrome) Brother Hypertension Mother other (Other) Mother Acute Renal Failure/AAA other (Aortic aneurysm) Mother Ischemic Heart Disease Brother 58 [place] Alcohol/Drug Brother Breast Cancer Sister Diabetes Maternal Grandmother Rheumatologic disease Maternal Grandfather Anesthesia Problems No Family History Social History Tobacco Use Smoking status: Former Packs/day: 0.50 Years: 20.00 Additional pack years: 0.00 Total pack years: 10.00 Types: Cigarettes Quit date: 10/16/1975 Years since quittin.0 Smokeless tobacco: Never Tobacco comments: QUIT 1975 Vapi (more content not included)... [facility] 09-13-2023 Miscellaneous Notes Physician: Dr. Burton Call from patient requesting refill. Please E-Scribe 30-day supply. Last OV: 06/08/[address] Burton Future OV: None Scheduled Requested Prescriptions Pending Prescriptions Disp Refills omeprazole (PRILOSEC) 40 mg capsule 30 capsule 0 Sig: Take 1 capsule by mouth once daily. Pharmacy Name: [facility] Phone #: Dayanara Mandujano RN documented in this encounter [facility] 06-08-2023 Note HNO ID: [id number] Author: Chidi Burton MD Service: ? Author Type: Physician Type: Progress Notes Filed: 06/08/2023 12:24 PM Note Text: FOLLOW UP VISIT - HEMORRHOID BANDING NAME: Temo Rajput [facility] NO.: [id number] DATE OF SERVICE: 06/08/2023 : 1940 REFERRING [...] month if persistent bleeding. Chidi Burton MD [facility] 06-08-2023 History of Present illness Narrative FOLLOW UP VISIT - HEMORRHOID BANDING NAME: Temo Rajput [facility] NO.: [id number] DATE OF SERVICE: 06/08/2023 : 1940 REFERRING [...] Chidi Burton MD documented in this encounter [facility] 06-08-2023 Instructions Urszula Quinn LPN - 06/08/2023 [...] feel free to call our office at [phone] and ask to be transferred to General Surgery. Thank you for choosing [facility] - General Surgery. documented in this encounter [facility] 06-08-2023 Nurse Note UNIVERSAL PROTOCOL / SAFETY [...] Urszula Quinn LPN documented in this encounter [facility] 05-30-2023 History of Present illness Narrative Chief [...] for condition of interest EMG No Physical therapy/primary care sales representative Yes Occupational therapy No Acupuncture Yes, w/o [...] Cap DR Particles capsule DR Dupilumab (DUPIXENT AR) Inject under the skin every 14 days. [...] coordination of care. documented in this encounter [facility] 05-30-2023 Instructions Marlon Chapin MD - 05/30/2023 1:00 PM EDT The device we talked about is called a Theracane. documented in this encounter [facility] 05-18-2023 Note HNO ID: [id number] Author: Belén Reyes PA-C Service: ? Author Type: Physician Artist Manager Type: Progress Notes Filed: 05/29/2023 7:56 AM [...] mention of hemorrhage) DVT (deep venous thrombosis) ([facility]) 08/06/2020 Essential tremor External hemorrhoids [...] complication, without long-term current use of insulin ([facility]) 06/07/[address] Owens Uveitis [...] 600 mg by mouth twice daily. lancets (CANDDi DELICA LANCETS) 30 gauge [facility] Use as directed to test glucose 3 times weekly. DX: E11.9 dupilumab (DUPIXENT SUBCUTANEOUS) Inject subcutaneously as needed (taking every three weeks). 08/17/2021 reported taking every 3 weeks cyanocobalamin, vitamin B-12, (VITAMIN B-12 INJECTION) by INJECTION(UNSPECIFIED PARENTERAL ROUTES) route once every month. blood sugar diagnostic (CANDDi VERWummelbox) test strip USE ONE STRIP TO CHECK GLUCOSE ONCE DAILY losartan (COZAAR) 25 mg tablet TAKE 1 TABLET DAILY ketoconazole (NIZORAL) 2 % shampoo Apply 1 application to affected area once daily as needed. atorvastatin (LIPITOR) 20 mg tablet Take 1 tablet by mouth once daily. Blood-Glucose Meter (CANDDi VERIO SYSTEM) [facility] Use as directed. Cholecalciferol, Vitamin D3, 2,000 unit ORAL Cap Take 2,000 Units by mouth. ascorbic acid(VITAMIN C 500 MG TAB) Take one (1) tablet twice daily. No current facility-administered medications for this visit. ALLERGIES: Flomax [Tamsulosin], Celecoxib, Meloxicam, Mirapex [Pramipexole], Uroxatral [Alfuzosin H (more content not included)... [facility] 05-18-2023 Nurse Note REVIEW OF SYSTEMS: General: [...] Jena Webb RN documented in this encounter [facility] 05-18-2023 History of Present illness Narrative HISTORY [...] Dr. Berry Chronic kidney disease, stage 3 ([facility]) Seeing Dr. Moss DDD (degenerative disc disease), cervical DDD (degenerative disc disease), lumbar Seeing Dr. Thayer Diarrhea Diverticulosis of colon (without mention of hemorrhage) DVT (deep venous thrombosis) ([facility]) 08/06/2020 Essential tremor External hemorrhoids [...] complication, without long-term current use of insulin ([facility]) 06/07/[address] Owens Uveitis [...] 600 mg by mouth twice daily. lancets (Knodium LANCETS) 30 gauge misc Use as directed to test glucose 3 times weekly. DX: E11.9 dupilumab (DUPIXENT SUBCUTANEOUS) Inject subcutaneously as needed (taking every three weeks). 08/17/2021 reported taking every 3 weeks cyanocobalamin, vitamin B-12, (VITAMIN B-12 INJECTION) by INJECTION(UNSPECIFIED PARENTERAL ROUTES) route once every month. blood sugar diagnostic (CANDDi VERWummelbox) test strip USE ONE STRIP TO CHECK GLUCOSE ONCE DAILY losartan (COZAAR) 25 mg tablet TAKE 1 TABLET DAILY ketoconazole (NIZORAL) 2 % shampoo Apply 1 application to affected area once daily as needed. atorvastatin (LIPITOR) 20 mg tablet Take 1 tablet by mouth once daily. Blood-Glucose Meter (CANDDi VERIO SYSTEM) misc Use as directed. Cholecalciferol, [...] aneurysm) Mother Ischemic Heart Disease Brother 58 [place] Alcohol/Drug Brother Breast Cancer Sister Diabetes Maternal [...] Belén Reyes PA-C documented in this encounter [facility] 02-17-[address] Baron, Patient has never seen you in the office, nor have you done a procedure on him. Not sure why this refill is being sent to you. Please advise. Robyn Duke RN documented in this encounter [facility] 02-15-2023 Miscellaneous Notes First attempt to reach patient. No VM left. Katherine Gao February 15, 2023 6:30 PM documented in this encounter [facility] 09-16-2022 Miscellaneous Notes Patient phones requesting refills as follows: Requested Prescriptions Pending Prescriptions Disp Refills omeprazole (PRILOSEC) 40 mg capsule [Pharmacy Med Name: OMEPRAZOLE DR CAPS 40MG] 90 capsule 0 Sig: TAKE 1 CAPSULE DAILY Please review and advise. Julia Ramirez Ma documented in this encounter [facility] 08-29-2022 Miscellaneous Notes Returned patient's call left [...] to no relief. Patient uses [facility] [place]. Please advise and call patient. documented in this encounter [facility] 06-03-2022 History of Present illness Narrative Radiology [...] 2022 10:01 AM documented in this encounter [facility] 01-05-2022 History of Present illness Narrative VIRTUAL [...] Dr. Berry Chronic kidney disease, stage 3 ([facility]) Seeing Dr. Moss DDD (degenerative disc disease), cervical DDD (degenerative disc disease), lumbar Seeing Dr. Thayer Diarrhea Diverticulosis of colon (without mention of hemorrhage) DVT (deep venous thrombosis) ([facility]) 08/06/2020 Essential tremor External hemorrhoids [...] complication, without long-term current use of insulin ([facility]) 06/07/[address] Owens Uveitis [...] aneurysm) Mother Ischemic Heart Disease Brother 58 [place] Alcohol/Drug Brother Breast Cancer Sister Diabetes Maternal [...] mg by mouth daily at bedtime. lancets (CycellUCH DELICA LANCETS) 30 gauge misc Use as directed to test glucose 3 times weekly. DX: E11.9 100 Each 3 cyanocobalamin, vitamin B-12, (VITAMIN B-12 INJECTION) by INJECTION(UNSPECIFIED PARENTERAL ROUTES) route once every month. sitaGLIPtin (JANUVIA) 50 mg tablet Take 1 tablet by mouth once daily. 90 tablet 3 blood sugar diagnostic (CycellUCH VERIO) test strip USE ONE STRIP TO [...] once daily. 90 tablet 1 Blood-Glucose Meter (CycellUCH VERIO SYSTEM) [facility] Use as directed. 1 [...] with more than 50% of the total jckh-ag-wfad time of the visit in counseling / coordination of care. I have confirmed and edited as necessary, the PFSH and ROS obtained by others. Carol Tran APRN.CNP January 05, 2022 9:48 AM documented in this encounter [facility] 01-04-2022 Miscellaneous Notes Patient scheduled for a [...] direct number to call me back Shakeel aFrias patient called stated he was having issues [...] EGD is still scheduled on 12/13 at [place]? He states he has not received any instructions and wants to make sure he does not miss anything. Advised patient general surgery staff would contact him when they return to the office on 11/22/21. He verbalized understanding. documented in this encounter [facility] 10-20-2021 History of Present illness Narrative I [...] denies a dyspnea with daily activities. -Pulmonary Medicine-[place] [address] DO Work Phone: 10-18-2021 History of Present [...] He denies a dyspnea with daily activities. -[facility] 300 Work [...] denies a dyspnea with daily activities. 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 -[facility] Medicine-[place] DO Work Phone: 07-20-2021 History of Present [...] study in 2013 at the [facility]. The patient's [place] Sleepiness Scale score today was 4. The [...] a vengeance and wake him from sleep. [facility] Work Phone: 07-16-2021 History of Present illness Narrative Mr. TEMO GARRISON is presenting for inspire eval- existing implantThe patient was kindly referred by Malick Baird personally reviewed the referring provider's note dated 07/16/21Multifactorial sleep issues- rosita, rlsVery restless sleeperWas started on RequipCurrently using OAT for OSAHas inspire [facility] (up to 20 min SL) until 830Baseline AHI 55 (2013 study [facility])Study with OAT in place showed AHI 24.4Noted [...] on requip dose is being adjusted upwards XC[facility] [address] [place] Work Phone: 07-16-2021 History of Present illness Narrative Mr. TEMO GARRISON is presenting for inspire eval- existing implantThe patient was kindly referred by Malick Baird personally reviewed the referring provider's note dated 07/16/21Multifactorial sleep issues- rosita, rlsVery restless sleeperWas started on RequipCurrently using OAT for OSAHas inspire [facility] (up to 20 min SL) until 830Baseline AHI 55 (2013 study [facility])Study with OAT in place showed AHI 24.4Noted [...] PLAN TO USE WITH OAT IN PLACE FP-Kyyzftrvebrdhm-Uvwwv MAC1 205 [place] Work Phone: 07-16-2021 History [...] study in 2013 at the [facility]. The patient's [place] Sleepiness Scale score today was 4. The [...] a vengeance and wake him from sleep. [facility]st[facility] 204 Work Phone: 11-25-2016 History of Past [...] of this encounter (statuses as of 01/04/2022) [facility] History of Past illness Narrative* Problem Noted [...] of this encounter (statuses as of 01/05/2022) [facility] History of Past illness Narrative* Problem Noted [...] of this encounter (statuses as of 05/15/2022) [facility] History of Past illness Narrative* Problem Noted [...] of this encounter (statuses as of 08/30/2022) [facility] History of Past illness Narrative* Problem Noted [...] of this encounter (statuses as of 09/19/2022) [facility] History of Past illness Narrative* Problem Noted [...] of this encounter (statuses as of 02/16/2023) [facility] of Past illness Narrative* Problem Noted [...] of this encounter (statuses as of 02/17/2023) [facility] History of Past illness Narrative* Problem Noted [...] of this encounter (statuses as of 05/29/2023) [facility] of Past illness Narrative* Problem Noted [...] of this encounter (statuses as of 06/08/2023) [facility] of Past illness Narrative* Problem Noted [...] of this encounter (statuses as of 09/14/2023) [facility] History of Present illness Narrative* From a previous note from Dr. Segovia : * Has had sleep issues his whole life- initially tested and treated about 7 yr ago - Baseline AHI 55(2014 study [facility]) * Tried multiple PAP machines * Has inspire device which was implanted at [facility] 2016 * Has had multiple changes [...] [facility] in [place] [place] [facility]. government and economics. * Naps: Patient Does [...] dream. No nightmares. [facility] [address] DO Work Phone: 1(153) 464-986902-07-2016 History of Present illness Narrative* From a previous note from Dr. Segovia : * Has had sleep issues his whole life- initially tested and treated about 7 yr ago - Baseline AHI 55(2013 study [facility]) * Tried multiple PAP machines * Has inspire device which was implanted at [facility] 2016 * Has had multiple changes [...] [facility]. government and economics. * Naps: Patient Does [...] act out of dream. No nightmares. [facility] Sleep[facility] [address]01 Work Phone: [phone]) 352-750403-27-2015 History of Present illness Narrative* From a previous note from Dr. 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 * Naps: Patient Does [...] act out of dream. No nightmares. -Sleep Medicine-[place] A[address] DO Work Phone: 1(576) 817-423703-04-2015 History of Present illness Narrative* Mr. TEMO GARRISON is presenting for inspire eval- existing implant * The patient was kindly referred by Malick Weber who he has seen recently for RLS and ROSITA * Has had sleep issues his whole life- initially tested and treated about 7 yr ago - Baseline AHI 55 (2013 study [facility]) * Tried multiple PAP machines * Has inspire device which was implanted at [facility] 2016 * Has had multiple changes [...] [facility]. government and economics. * Naps: Patient Does [...] act out of dream. No nightmares. -Pul[facility] Sleep[facility] A[address] DO Work Phone: chief complaint Narrative [...] * Virtual visit. Follow up on sleep. LJ-Glvpupjiw-Pqfyi 204 Work Phone: chief complaint Narrative - [...] * Virtual visit. Follow up on sleep. [facility] Work Phone: chief complaint Narrative [...] * Virtual visit. Follow up on sleep. [facility] Work Phone: chief complaint Narrative - Reported* TEMO GARRISON is here for an initial evaluation. * Reason for Visit: Nocturnal Hypoxemia. * Appointment requested by: Dr. Weber; PCP: Dr. Wilson. [facility] [address] DO Work Phone: chief complaint Narrative - Reported* TEMO GARRISON is here for an initial evaluation. * Reason for Visit: Nocturnal Hypoxemia. * Appointment requested by: Dr. Weber; PCP: Dr. Wilson. -Pulmonary Medicine-[place] [address] DO Work Phone: chief complaint Narrative - Reported* TEMO GARRISON is here for an initial evaluation. * Reason for Visit: Nocturnal Hypoxemia. * Appointment requested by: Dr. Weber; PCP: Dr. Wilson. [facility]ulmonary MedicineM[place] [address] DO Work Phone: Evaluation note* Diagnosis History of Small's esophagus- Primary [facility] Diagnosis Bright red blood per rectum- Primary Hemorrhage of rectum and anus Hemorrhoids, internal Internal hemorrhoids without mention of complication [facility]* Diagnosis Other chronic pain [facility] Diagnosis Bright red blood per rectum- Primary Hemorrhage of rectum and anus Hemorrhoids, internal Internal hemorrhoids without mention of complication [facility] Diagnosis Preop examination- [...] apnea Acute cough [facility]* The patient has [...] [facility]'s [place] Sleepiness Scale score today was 4. The [...] a vengeance and wake him from sleep. [facility] Work Phone: Reason for visit Narrative* Diagnostic Procedure Only (Urgent) - Closed Specialty Diagnoses / Procedures Referred By Contac t Referred To Contact XR IMAGING Diagnoses Lower extremity injury, right, initial encounter Procedures XR ANKLE GENERAL 3V AP/LAT/OBL RIGHT RADEX ANKLE COMPLETE MINIMUM 3 VIEWS Joe Goodwin, JOCELYN.PIECE DYE WORKER [address] [place] [address] [place] [address] Referral ID Status Reason Start Date Expiration Date V isits Requested Visits Authorized [id number] Closed Auto-Generate d Referral 06/03/2022 07/03/2023 1 1 [facility] Summary Purpose Family History Unknown Family Member [...] Documents on File Type Date Recorded Patient Direct Marketing Representative Expl anation Advance Directive(s) 12/13/2021 9:35 AM Advance Directive(s) 08/10/2020 7:21 AM M dorian infusion Advance Directive(s) 08/10/2020 7:20 AM Advance Directive(s) 08/03/2020 1:49 PM Advance Directive(s) 11/23/2016 9:39 AM Advance Directive(s) 11/22/2016 9:26 AM Advance Directive(s) 05/24/2016 1:39 PM Advance Directive(s) 12/13/2011 12:00 AM Advance Directive(s) 12/01/2006 12:00 AM Documents on File Type Date Recorded Patient Direct Marketing Representative Expl anation Advance Directive(s) 08/10/2020 7:20 AM Advance Directive(s) 12/13/2011 Advance Directive(s) 12/01/2006 Documents on File Type Date Recorded Patient Direct Marketing Representative Expl anation Advance Directive(s) 08/10/2020 7:20 AM [...] section and content) DATE CREATED AUTHOR 04/06/2018 [facility] DATE CREATED AUTHOR AUTHOR'S ORGANIZ ATION 04/10/2018 [facility] ([place]) DATE CREATED AUTHOR AUTHOR'S ORGANIZ ATION 10/13/[address] [facility] DATE CREATED AUTHOR AUTHOR'S ORGANIZ ATION 01/06/2021 [facility] DATE CREATED AUTHOR AUTHOR'S ORGANIZ ATION 10/03/2021 [facility] DATE CREATED AUTHOR AUTHOR'S ORGANIZ ATION 12/15/2021 [facility] DATE CREATED AUTHOR AUTHOR'S ORGANIZ ATION 02/28/2023 [facility] DATE CREATED AUTHOR AUTHOR'S ORGANIZ ATION 02/28/2023 [facility] DATE CREATED AUTHOR AUTHOR'S ORGANIZ ATION 06/03/2023 [facility] DATE CREATED AUTHOR AUTHOR'S ORGANIZ ATION 10/06/2023 [facility] Reason for Visit (unrecogniz ed section and [...] chronic pain Malick Al MD [address] [address] [facility] [address] [place] [address] Referral ID Status Reason Start Date Expiration Date V isits Requested Visits Authorized [id number] New Request 04/11/2023 05/05/2024 1 1 Reason Comments Procedure BANDING Reason Onset Date Comments Refill Request 09/13/2023 Source Comments (unrecognize d section and content) In the event this informatio n is protected by the Federal Confidentiality of Alcohol and Drug Abuse Patient Records regulations: The Federal rules restrict any use of the information to criminally investigate or prosecute any alcohol or drug abuse patient.[facility] the event this information is protected by the Federal Confidentiality of Alcohol and Drug Abuse Patient Records regulations: The Federal rules restrict any use of the information to criminally investigate or prosecute any alcohol or drug abuse patient.[facility] Center[facility] the event this information is protected by the Federal Confidentiality of Alcohol and Drug Abuse Patient Records regulations: The Federal rules restrict any use of the information to criminally investigate or prosecute any alcohol or drug abuse patient.[facility] Center[facility] the event this information is protected by the Federal Confidentiality of Alcohol and Drug Abuse Patient Records regulations: The Federal rules restrict any use of the information to criminally investigate or prosecute any alcohol or drug abuse patient.[facility] CenterIn the event this information is protected by the Federal Confidentiality of Alcohol and Drug Abuse Patient Records regulations: The Federal rules restrict any use of the information to criminally investigate or prosecute any alcohol or drug abuse patient.[facility] Center[facility] the event this information is protected by the Federal Confidentiality of Alcohol and Drug Abuse Patient Records regulations: The Federal rules restrict any use of the information to criminally investigate or prosecute any alcohol or drug abuse patient.[facility] CenterIn the event this information is protected by the Federal Confidentiality of Alcohol and Drug Abuse Patient Records regulations: The Federal rules restrict any use of the information to criminally investigate or prosecute any alcohol or drug abuse patient.[facility] Center[facility] the event this information is protected by the Federal Confidentiality of Alcohol and Drug Abuse Patient Records regulations: The Federal rules restrict any use of the information to criminally investigate or prosecute any alcohol or drug abuse patient.[facility] CenterIn the event this information is protected by the Federal Confidentiality of Alcohol and Drug Abuse Patient Records regulations: The Federal rules restrict any use of the information to criminally investigate or prosecute any alcohol or drug abuse patient.[facility] CenterIn the event this information is protected by the Federal Confidentiality of Alcohol and Drug Abuse Patient Records regulations: The Federal rules restrict any use of the information to criminally investigate or prosecute any alcohol or drug abuse patient.[facility] CenterIn the event this information is protected by the Federal Confidentiality of Alcohol and Drug Abuse Patient Records regulations: The Federal rules restrict any use of the information to criminally investigate or prosecute any alcohol or drug abuse patient.[facility] CenterIn the event this information is protected by the Federal Confidentiality of Alcohol and Drug Abuse Patient Records regulations: The Federal rules restrict any use of the information to criminally investigate or prosecute any alcohol or drug abuse patient.[facility] Teams (unrecognized sec tion and content) Jewel Bearing Grinder Relationship Specialty Start Date End Date Monserrat Wilson [address] [place] [address] PCP - General Family Practice 06/26/18 Jewel Bearing Grinder Relationship Specialty Start Date End Date Monserrat Wilson [address] [place] [address] PCP - General Family Practice 06/26/18 Jewel Bearing Grinder Relationship Specialty Start Date End Date Monserrat Wilson [address] [place] [address] PCP - General Family Practice 06/26/18 Jewel Bearing Grinder Relationship Specialty Start Date End Date Monserrat Wilson [address] [place] [address] PCP - General Family Medicine 06/26/18 Jewel Bearing Grinder Relationship Specialty Start Date End Date Monserrat Wilson [address] [place] [address] PCP - General Family Medicine 06/26/18 Jewel Bearing Grinder Relationship Specialty Start Date End Date Monserrat Wilson MD [address] [place], [place] [id number] PCP - General Family Medicine 06/26/18 Jewel Bearing Grinder Relationship Specialty Start Date End Date Monserrat Wilson MD [address] [place], [place] [id number] PCP - General Family Medicine 06/26/18 Jewel Bearing Grinder Relationship Specialty Start Date End Date Malick Al [address] [place] [address] PCP - General Family Medicine 05/18/23 Jewel Bearing Grinder Relationship Specialty Start Date End Date Malick Al MD [address] [place] [address] PCP - General Family Medicine 05/18/23 Jewel Bearing Grinder Relationship Specialty Start Date End Date Malick Al MD [address] [place] [address] PCP - General Family Medicine 05/18/23 Jewel Bearing Grinder Relationship Specialty Start Date End Date Malick Al MD [address] [place] [address] PCP - General Family Medicine 05/18/23 Jewel Bearing Grinder Relationship Specialty Start Date End Date Monserrat Wilson MD [address] [place] [address] PCP - General Family Medicine 06/26/18 05/17/23 [...] BE BASED ON THE PRIMARY CLINICAL RECORDS. [employer] [facility]. provides no warranty or guarantee of the accuracy or completeness of information in this document.
[2024-08-05 21:19] LABS: Bedside Glucose 134 mg/dL (74-106)
[2024-08-05 21:55] LABS: Thyroid Stim Hormone (TSH) 0.991 uIU/mL (0.358-3.740)
[2024-08-05] MEDS: Acetaminophen 500 MG Tablet 1000 MG PO (22:15)
[2024-08-05] MEDS: 0.9% Normal Saline (1000mL) 1,000 ML 70 ML IV (22:15)
[2024-08-05] MEDS: Enoxaparin 80 MG/0.8 ML Syringe 70 MG SC (22:15)
[2024-08-05] MEDS: amLODIPine 5 MG Tablet PO (22:16)
[2024-08-05] MEDS: oxyCODONE 5 MG Tablet PO (22:16)
[2024-08-05] MEDS: Pantoprazole Sodium 40 MG Tablet PO (22:16)
[2024-08-05] MEDS: Atorvastatin Calcium 20 MG Tablet PO (22:16)
[2024-08-05] MEDS: Gabapentin 600 MG Tablet PO (22:16)
[2024-08-05] MEDS: Senna/Docusate Sodium 1 Tablet 2 TABLET PO (22:17)
[2024-08-06 03:34] VITALS: BP 126/55; PULSE 71; RESP 18; TEMP 37.1; O2SAT 98
[2024-08-06] MEDS: oxyCODONE 5 MG Tablet PO ×2 (03:38→10:26)
[2024-08-06 06:00] VITALS: BMI 27.6
[2024-08-06] MEDS: Gabapentin 600 MG Tablet PO ×3 (06:41→22:41)
[2024-08-06] MEDS: Acyclovir 200 MG Capsule 400 MG PO ×3 (06:41→22:42)
[2024-08-06] MEDS: Levothyroxine 50 MCG Tablet PO (06:44)
[2024-08-06 07:09] LABS: Bedside Glucose 92 mg/dL (74-106)
[2024-08-06 07:17] LABS: Absolute Lymphocyte Count 1.81 X10^3/uL (0.83-4.51); Basophil# 0.07 X10^3/uL; Basophil% 0.7 % (0-1); Eosinophil# 0.61 X10^3/uL; Eosinophils% 6.3 % (0-5); Hematocrit 28.9 % (40-54); Hemoglobin 9.4 g/dL (13.0-16.5); Lymphocyte # 1.81 X10^3/ul (0.83-4.51); Lymphocyte % 18.7 % (19-41); Mean Corp Hgb Conc 32.5 g/dL (32-36); Mean Corpuscular Volume 98.3 fL (80-94); Mean Platelet Vol. 10.7 fl (6.2-12.0); Monocyte# 1.09 X10^3/uL; Monocyte% 11.3 % (0-10); NRBC Flagged by Analyzer 0 % (0-5); Neutrophil # 6.03 X10^3/uL (2.7-7.7); Neutrophil % 62.5 % (47-70); Platelet Count 354 K/mm3 (150-450); RBC Distribution Width CV 13.9 % (11.6-14.6); Red Blood Count 2.94 M/mm3 (4.6-6.2); White Blood Count 9.7 K/mm3 (4.4-11.0)
[2024-08-06 08:05] LABS: ALB/GLOB Ratio 0.8 RATIO (0.9-2.4); AST(SGOT) 19 U/L (15-37); Alanine Aminotransfer ALT/SGPT 27 U/L (16-61); Albumin, Serum 2.8 g/dL (3.2-5.0); Alkaline Phosphatase 118 U/L (45-117); Anion Gap 3 (5-15); BUN 24 mg/dL (7-18); BUN/Creat Ratio 12.8 RATIO (10-20); Calcium,Total 8.8 mg/dL (8.5-10.1); Chloride 109 mmol/L (98-107); Creatinine, Serum 1.88 mg/dL (0.70-1.30); EST Glomerular Filtration Rate 37 mL/min (>60); Est Glom Filt Rate - Afr Amer 44 mL/min (>60); Estimated Creatinine Clearance 32.09 ml/min; Globulin 3.7 g/dL (2.2-4.2); Glucose 122 mg/dL (74-106); Magnesium 2.3 mg/dL (1.6-2.6); Phosphorus 2.7 mg/dL (2.5-4.9); Potassium 3.9 mmol/L (3.5-5.1); Protein, Total 6.5 g/dL (6.4-8.2); Sodium Level 142 mmol/L (136-145)
[2024-08-06 09:00] VITALS: BP 107/51; PULSE 70; RESP 16; TEMP 36.6; O2SAT 100
[2024-08-06 10:00] VITALS: BP 130/51; PULSE 71; RESP 18; TEMP 36.8; O2SAT 98
[2024-08-06] MEDS: Ascorbic Acid 500 MG Tablet 1000 MG PO (10:07)
[2024-08-06] MEDS: Pantoprazole Sodium 40 MG Tablet PO ×2 (10:07→22:42)
[2024-08-06] MEDS: Senna/Docusate Sodium 1 Tablet 2 TABLET PO ×2 (10:07→22:42)
[2024-08-06] MEDS: Folic Acid 1 MG Tablet PO (10:07)
[2024-08-06] MEDS: Cholecalciferol (VIT D3) 25 MCG TABLET (1,000 UNITS) 50 MCG PO (10:11)
[2024-08-06] MEDS: Cyanocobalamin 500 MCG Tablet 1000 MCG PO (10:11)
[2024-08-06] MEDS: Losartan Potassium 25 MG Tablet PO (10:11)
[2024-08-06] MEDS: Enoxaparin 80 MG/0.8 ML Syringe 70 MG SC (10:12)
[2024-08-06] MEDS: Iron Polysaccharide Complex 150 MG CAPSULE PO (10:12)
[2024-08-06] MEDS: Pyridoxine HCl 100 MG Tablet PO (10:13)
[2024-08-06] MEDS: Acetaminophen 325 MG Tablet 650 MG PO ×2 (10:26→22:41)
[2024-08-06 12:24] LABS: Bedside Glucose 133 mg/dL (74-106)
--- NOTE | 2024-08-06 13:27 | CASEMGMT ---
Addendum entered by Dennise Rodriguez 08/06/24 13:34: A list of SNF providers including quality and resource use data and consistent with the patient?s preferred geographic region, medical needs, and insurance network were provided from the [employer] Guide was declined d/t pt knowing his FOC. SUZANNA Rutherford Original Note: Social Work- SW met with pt to discuss preferences at d/c. Pt states that his FOC is TCU. SW completed referral and followed up on medication questions. TCU accepted and started precert. Pt updated. Plan: TCU; precert pending SUZANNA Rutherford
[2024-08-06 15:24] VITALS: BP 113/49; PULSE 67; RESP 16; TEMP 36.6; O2SAT 97
[2024-08-06] MEDS: Verapamil SR 240 MG Tablet PO (15:31)
[2024-08-06 17:45] LABS: Bedside Glucose 151 mg/dL (74-106)
--- NOTE | 2024-08-06 18:24 | PN.HOSP_ITS ---
Reason for Visit Reason for Visit: Generalized weakness and debility Subjective Subjective Mr. Pisano is an 83-year-old white male who presented to the emergency department at [facility] on 08/05/2020 for with generalized weakness and debility as well as complaints of left lower extremity pain, swelling, and fatigue. He reported that his acute symptoms started about 2 to 3 days prior to admission with the abrupt onset of left lower extremity pain in his calf that had gradually worsened since that point in time. He did have a left total knee arthroplasty on 07/29/2024. He noted he had to start taking increased doses of his home oxycodone. He is on Eliquis at baseline which was transition to Lovenox preoperatively and then back on his Eliquis postoperatively 5 mg p.o. twice daily and the patient indicated compliance. He was sent to the vascular lab as an outpatient due to his calf pain was noted to have a left popliteal DVT. His was concerned and indicated that she is having difficulty caring for him at home so he is brought to the emergency department. Anticoagulation was discussed with orthopedic surgery, hematology and oncology and they recommended placing him on Lovenox and having outpatient follow-up for direction his care. He takes Eliquis at baseline due to history of DVT. Initially the plan was to discharge him home on Lovenox but given his 's difficulty helping care for him at home so he was admitted for placement. Patient has no acute complaints today and is anxious to get on with his rehab and would like to go to the transitional care unit as soon as possible. Objective Data Objective Data Vital Signs: Vital Signs Temp Pulse Resp BP Pulse Ox O2 Del Method 97.9 F 67 16 113/49 L 97 Room Air 08/06/24 15:24 08/06/24 15:24 08/06/24 15:24 08/06/24 15:24 08/06/24 15:24 08/06/24 15:34 Oxygen Delivery Method Room Air Weight: 84.6 kg Body Mass Index (BMI) 27.6 Intake & Output: Intake and Output for Last 24 Hours 08/04/24 08/05/24 08/06/24 23:59 23:59 23:59 Intake Total 1800 / 1800 Balance 1800 / 1800 Lab / Micro Data 08/06/24 07:01 08/06/24 07:01 Labs: Laboratory Results - last 24 hr 08/05/24 14:22: TSH 0.991 08/05/24 20:59: POC Glucose 134 H 08/06/24 06:49: POC Glucose 92 08/06/24 07:01: WBC 9.7, RBC 2.94 L, Hgb 9.4 L, Hct 28.9 L, MCV 98.3 H, MCH 32.0, MCHC 32.5, RDW Std Deviation 50.0 H, RDW Coeff of [place] 13.9, Plt Count 354, MPV 10.7, Immature Gran % (Auto) 0.500, Neut % (Auto) 62.5, Lymph % (Auto) 18.7 L, [place] % (Auto) 11.3 H, Eos % (Auto) 6.3 H, Baso % (Auto) 0.7, Absolute Neuts (auto) 6.0, Absolute Lymphs (auto) 1.81, Nucleated RBC % 0, Sodium 142, Potassium 3.9, Chloride 109 H, Carbon Dioxide 30.0, Anion Gap 3 L, BUN 24 H, C reatinine 1.88 H, Estim Creat Clear Calc 32.09, Est GFR (MDRD) Af Amer 44 L, Est GFR (MDRD) Non-Af 37 L, BUN/Creatinine Ratio 12.8, Glucose 122 H, Hemoglobin A1c Cancelled, Calcium 8.8, Phosphorus 2.7, Magnesium 2.3, Total Bilirubin 1.00, AST 19, ALT 27, Alkaline Phosphatase 118 H, Total Protein 6.5, Albumin 2.8 L, Globulin 3.7, Albumin/Globulin Ratio 0.8 L 08/06/24 12:05: POC Glucose 133 H 08/06/24 17:17: POC Glucose 151 H Physical Exam Const alert, oriented x3, no apparent distress, average body habitus, healthy appearing and well nourished HEENT head/scalp atraumatic and moist oral mucous membranes Head and Scalp: normocephalic Resp normal respiratory effort, no retractions, no use of accessory muscles and clear to auscultation bilaterally Auscultation: Negative for rales, rhonchi or wheezes Cardio regular rate, regular rhythm, S1 normal heart sound, S2 normal heart sound, no murmurs, no rub, no gallops and no clicks GI normal to inspection, nondistended, normoactive bowel sounds, soft to palpation and non-tender Extremity Extremity Narrative: Left lower extremity edema, postoperative domenic in place, left knee is lacking complete extension with limited flexion range of motion Skin no wounds, skin turgor normal, no jaundice, no petechiae and no mottling Neuro oriented x3, moves all extremities and no focal motor deficits Neuro Narrative: Decreased movement left lower extremity due to pain at the knee joint Speech: speech normal Psych affect normal Mood & Affect: anxious Assessment & Plan Assessment/Plan (1) Acute deep vein thrombosis (DVT) of popliteal vein of left lower extremity: PLAN: Plan Left lower extremity popliteal DVT -Provoked status post total knee arthroplasty with Dr. Moraes on 07/29/2024 -Breakthrough on Eliquis -[facility] follow[facility]up to see hematology -Patient does have known history of DVT previously Recent left total knee arthroplasty -Continue outpatient follow-up as previously recommended -Weightbearing as tolerated -PT/OT consultation -Will plan on discharge to skilled facility as stating he is too much to handle at home at this time and needs further rehab Shingles -Right back and beltline -Continue valacyclovir -Could consider adding steroids depending on symptoms but currently denies any severe pain at this time Generalized weakness/ambulatory dysfunction -Secondary to the above -Plans as above Essential hypertension/hyperlipidemia -Continue home amlodipine -Continue home atorvastatin -Continue home losartan -Continue home verapamil History of recurrent DVTs -Has been on Eliquis -Breakthrough as noted above -Outpatient follow-up with hematology Hypothyroidism -Continue home Synthroid DM-2 -SSI -Accu-Cheks as ordered -A1c done on 06/21/2024 and was found to be 6.0 -No need for repeat at this time CKD stage IIIb -Serum creatinine stable -Periodic monitoring for stability GERD -Continue PPI Neuropathy/fibromyalgia -Continue home gabapentin -Continue home Cymbalta DVT prophylaxis -As above Charges/Coding Visit Charges Inpatient E&M: 68345 Subs Hosp L2
[2024-08-06 20:33] VITALS: BP 104/45; PULSE 66; RESP 18; TEMP 37.2; O2SAT 96
[2024-08-06 22:40] LABS: Bedside Glucose 108 mg/dL (74-106)
[2024-08-06] MEDS: Atorvastatin Calcium 20 MG Tablet PO (22:43)
[2024-08-06 22:59] VITALS: BP 89/47; PULSE 70
[2024-08-07] MEDS: oxyCODONE 5 MG Tablet PO ×2 (04:04→15:46)
[2024-08-07 04:06] VITALS: BP 124/61; PULSE 78; RESP 18; TEMP 36.8; O2SAT 96
[2024-08-07 04:26] VITALS: BMI 27.8
[2024-08-07] MEDS: Acetaminophen 325 MG Tablet 650 MG PO ×2 (06:23→15:46)
[2024-08-07] MEDS: Gabapentin 600 MG Tablet PO ×3 (06:23→22:11)
[2024-08-07] MEDS: Acyclovir 200 MG Capsule 400 MG PO ×3 (06:27→22:12)
[2024-08-07] MEDS: Levothyroxine 50 MCG Tablet PO (06:27)
[2024-08-07 06:50] LABS: Bedside Glucose 122 mg/dL (74-106)
[2024-08-07 07:37] LABS: Magnesium 2.2 mg/dL (1.6-2.6); Phosphorus 2.5 mg/dL (2.5-4.9)
[2024-08-07 08:08] VITALS: BP 135/61; PULSE 65; RESP 17; TEMP 36.8; O2SAT 96
[2024-08-07] MEDS: Senna/Docusate Sodium 1 Tablet 2 TABLET PO ×2 (08:18→22:12)
[2024-08-07] MEDS: Pantoprazole Sodium 40 MG Tablet PO ×2 (08:18→22:12)
[2024-08-07] MEDS: Enoxaparin 80 MG/0.8 ML Syringe 70 MG SC (08:19)
[2024-08-07] MEDS: Cyanocobalamin 500 MCG Tablet 1000 MCG PO (08:19)
[2024-08-07] MEDS: Losartan Potassium 25 MG Tablet PO (08:19)
[2024-08-07] MEDS: Folic Acid 1 MG Tablet PO (08:20)
[2024-08-07] MEDS: Cholecalciferol (VIT D3) 25 MCG TABLET (1,000 UNITS) 50 MCG PO (08:20)
[2024-08-07] MEDS: Ascorbic Acid 500 MG Tablet 1000 MG PO (08:20)
[2024-08-07] MEDS: Pyridoxine HCl 100 MG Tablet PO (08:21)
[2024-08-07] MEDS: Iron Polysaccharide Complex 150 MG CAPSULE PO (08:21)
[2024-08-07] MEDS: Hydrocortisone 2.5% Crm 1 APPLIC TOPICAL ×2 (11:37→22:10)
[2024-08-07 12:08] LABS: Bedside Glucose 138 mg/dL (74-106)
[2024-08-07 15:35] VITALS: BP 133/78; PULSE 83; RESP 18; TEMP 37.3; O2SAT 94
--- NOTE | 2024-08-07 15:52 | PCM.PN.HOSP ---
Reason for Visit Reason for Visit: Failure to thrive Objective Data Objective Data Vital Signs: Vital Signs Temp Pulse Resp BP Pulse Ox O2 Del Method 98.3 F 65 17 135/61 H 96 Room Air 08/07/24 08:08 08/07/24 08:08 08/07/24 08:08 08/07/24 08:08 08/07/24 08:08 08/07/24 08:08 Oxygen Delivery Method Room Air Weight: 85.1 kg Body Mass Index (BMI) 27.8 Intake & Output: Intake and Output for Last 24 Hours 08/05/24 08/06/24 08/07/24 23:59 23:59 23:59 Intake Total 1800 / 1800 360 / 360 Balance 1800 / 1800 360 / 360 Lab / Micro Data 08/06/24 07:01 08/06/24 07:01 Labs: Laboratory Results - last 24 hr 08/06/24 07:01: Hemoglobin A1c Cancelled 08/06/24 17:17: POC Glucose 151 H 08/06/24 22:21: POC Glucose 108 H 08/07/24 06:22: POC Glucose 122 H 08/07/24 06:40: Phosphorus 2.5, Magnesium 2.2 08/07/24 11:42: POC Glucose 138 H Physical Exam Const alert, oriented x3, no apparent distress, average body habitus, healthy appearing and well nourished General Appearance: cooperative Neuro moves all extremities Assessment & Plan Assessment/Plan (1) Acute deep vein thrombosis (DVT) of popliteal vein of left lower extremity: PLAN: Plan Left lower extremity popliteal DVT -Provoked status post total knee arthroplasty with Dr. Moraes on 07/29/2024 -Breakthrough on Eliquis -Plan is for Lovenox subcu with outpatient follow-up to see hematology -Patient does have known history of DVT previously Recent left total knee arthroplasty -Continue outpatient follow-up as previously recommended -Weightbearing as tolerated -PT/OT following -D/C when precert is obtained Shingles -Right back and beltline -Continue valacyclovir -Could consider adding steroids depending on symptoms but currently denies any severe pain at this time Generalized weakness/ambulatory dysfunction -Secondary to the above -Plans as above Essential hypertension/hyperlipidemia -Continue home amlodipine -Continue home atorvastatin -Continue home losartan -Continue home verapamil History of recurrent DVTs -Has been on Eliquis -Breakthrough as noted above -Outpatient follow-up with hematology Hypothyroidism -Continue home Synthroid DM-2 -SSI -Accu-Cheks as ordered -A1c done on 06/21/2024 and was found to be 6.0 -No need for repeat at this time CKD stage IIIb -Serum creatinine stable -Periodic monitoring for stability GERD -Continue PPI Neuropathy/fibromyalgia -Continue home gabapentin -Continue home Cymbalta DVT prophylaxis -As above Charges/Coding Visit Charges Inpatient E&M: 05358 Subs Hosp L1
[2024-08-07 16:00] VITALS: O2SAT 94
[2024-08-07] MEDS: Verapamil SR 240 MG Tablet PO (16:03)
[2024-08-07 16:10] LABS: Bedside Glucose 120 mg/dL (74-106)
[2024-08-07] MEDS: amLODIPine 5 MG Tablet PO (22:11)
[2024-08-07] MEDS: Atorvastatin Calcium 20 MG Tablet PO (22:11)
[2024-08-07] MEDS: Acetaminophen 500 MG Tablet 1000 MG PO (22:12)
[2024-08-07] MEDS: tiZANidine HCl 2 MG Tablet 8 MG PO (22:12)
[2024-08-07 22:15] VITALS: BP 113/50; PULSE 64; RESP 18; TEMP 37.4; O2SAT 94
[2024-08-07 22:59] LABS: Bedside Glucose 110 mg/dL (74-106)
[2024-08-08 04:17] VITALS: BP 112/59; PULSE 64; RESP 18; TEMP 36.8; O2SAT 98
[2024-08-08 06:00] VITALS: BMI 27.4
[2024-08-08] MEDS: Gabapentin 600 MG Tablet PO ×2 (06:13→15:08)
[2024-08-08] MEDS: Acetaminophen 500 MG Tablet 1000 MG PO ×2 (06:13→15:10)
[2024-08-08] MEDS: Acyclovir 200 MG Capsule 400 MG PO ×2 (06:13→15:08)
[2024-08-08] MEDS: Levothyroxine 50 MCG Tablet PO (06:14)
[2024-08-08] MEDS: oxyCODONE 5 MG Tablet PO ×2 (06:14→10:38)
[2024-08-08 06:39] LABS: Bedside Glucose 123 mg/dL (74-106)
[2024-08-08 10:00] VITALS: BP 122/52; PULSE 64; RESP 18; TEMP 36.4; O2SAT 90
[2024-08-08] MEDS: Enoxaparin 100 MG/ML Syringe 85 MG SC (10:12)
[2024-08-08] MEDS: Cholecalciferol (VIT D3) 25 MCG TABLET (1,000 UNITS) 50 MCG PO (10:12)
[2024-08-08] MEDS: Senna/Docusate Sodium 1 Tablet 2 TABLET PO (10:13)
[2024-08-08] MEDS: Hydrocortisone 2.5% Crm 1 APPLIC TOPICAL (10:13)
[2024-08-08] MEDS: Losartan Potassium 25 MG Tablet PO (10:13)
[2024-08-08] MEDS: Pantoprazole Sodium 40 MG Tablet PO (10:14)
[2024-08-08] MEDS: Cyanocobalamin 500 MCG Tablet 1000 MCG PO (10:14)
[2024-08-08] MEDS: Pyridoxine HCl 100 MG Tablet PO (10:14)
[2024-08-08] MEDS: Iron Polysaccharide Complex 150 MG CAPSULE PO (10:15)
[2024-08-08] MEDS: Folic Acid 1 MG Tablet PO (10:15)
[2024-08-08] MEDS: Ascorbic Acid 500 MG Tablet 1000 MG PO (10:16)
--- NOTE | 2024-08-08 12:00 | CASEMGMT ---
SW notified KALE EMANUEL pt insurance denied TCU. KALE EMANUEL into pt room, pt and daughter in room, pt agreeable to discussing DC plan with family in room. Discussed HHC or OP therapy options with pt. Pt would like to continue OP PT with [facility]. states she will call [facility] now to schedule PT appointments. Family would like pt to have PT before leaving today. Pt denies additional questions or concerns at this time. Notified Hospitalist of DC plan. Called therapy to have them see pt today.
--- NOTE | 2024-08-08 12:34 | PCM.DC.SUM ---
Providers Date of Admission: 08/05/24 Primary Care Physician: Dr. Woodrow Al MD Reason For Visit: FAILURE TO THRIVE ACUTE DVT LEFT POPLITEAL Diagnosis Discharge Diagnosis (1) Acute deep vein thrombosis (DVT) of popliteal vein of left lower extremity: Status: Acute Code(s): I82.432 - Acute embolism and thrombosis of left popliteal vein Medications at Discharge Home Medications losartan 25 mg tablet 25 mg PO DAILY blood pressure 04/17/14 atorvastatin 20 mg tablet 20 mg PO QHS 06/04/21 blood sugar diagnostic ([employer] Verio test strips) 09/06/22 ketoconazole 2 % shampoo 1 applic topical 2XW PRN PRN 09/06/22 dupilumab 300 mg/2 mL subcutaneous pen injector (Dupixent) 300 mg subcut QMONTH 11/23/22 ascorbate calcium (vitamin C) 500 mg tablet 1 g PO DAILY 08/01/23 levothyroxine 50 mcg capsule 50 mcg PO DAILY 08/01/23 pyridoxine (vitamin B6) 100 mg tablet 100 mg PO DAILY 08/01/23 omeprazole 40 mg capsule,delayed release 40 mg PO BID 08/03/23 cyanocobalamin (vitamin B-12) 1,000 mcg tablet (Vitamin B-12) 1,000 mcg PO DAILY 11/29/23 folic acid 1 mg tablet 1 mg PO DAILY #90 tabs 01/16/24 amlodipine 5 mg tablet 5 mg PO QHS 06/25/24 cholecalciferol (vitamin D3) 25 mcg (1,000 unit) capsule 2,000 unit PO DAILY vitamin 06/25/24 tizanidine 4 mg tablet 8 mg PO QHS muscle spasticity/insomnia/leg restlessness 06/25/24 verapamil 240 mg tablet,extended release 240 mg PO 1500 07/05/24 apixaban 5 mg tablet (Eliquis) 5 mg PO BID 07/23/24 gabapentin 600 mg tablet 600 mg PO TID 07/23/24 acetaminophen 500 mg tablet 1,000 mg (2 x 500 mg) PO TID #0 tabs 07/31/24 oxycodone 5 mg tablet 5 - 10 mg (1 - 2 x 5 mg) PO Q4H PRN PRN Pain Score 4-10 7 days #42 tabs 07/31/24 polysaccharide iron complex 150 mg iron capsule (Ferrex) 150 mg PO DAILY 21 days #21 caps 07/31/24 sennosides 8.6 mg-docusate sodium 50 mg tablet (Stimulant Laxative Plus) 2 tab PO BID 5 days #20 tabs 07/31/24 valacyclovir 1 gram tablet 1,000 mg PO Q12H Antiviral 08/05/24 enoxaparin 100 mg/mL subcutaneous syringe 85 mg (0.85 mL) subcut BID #10 mL 08/08/24 Hospital Course Operations None Procedures - (Lower extremity Dopplers) Summary of Care Provided Minutes Spent on Discharge: 25 Hospital Course: Mr. Montanez is an 83-year-old white male who presented to the emergency department at [facility] on 08/05/2024 with generalized weakness and debility as well as complaints of left lower extremity pain, swelling, and fatigue. He reported that his acute symptoms started about 2 to 3 days prior to admission with the abrupt onset of left lower extremity pain in his calf that had gradually worsened since that point in time. He did have a left total knee arthroplasty on 07/29/2024. He noted he had to start taking increased doses of his home oxycodone. He is on Eliquis at baseline which was transition to Lovenox preoperatively and then back on his Eliquis postoperatively 5 mg p.o. twice daily and the patient indicated compliance. He was sent to the vascular lab as an outpatient due to his calf pain was noted to have a left popliteal DVT. His was concerned and indicated that she is having difficulty caring for him at home so he is brought to the emergency department. Anticoagulation was discussed with orthopedic surgery, hematology and oncology and they recommended placing him on Lovenox and having outpatient follow-up for direction his care. He takes Eliquis at baseline due to history of DVT. Initially the plan was to discharge him home on Lovenox, but given his 's difficulty helping care for him at home so he was admitted for placement. He was admitted to medical surgical floor and placed on therapeutic dose of Lovenox. At 1 mg/kg twice daily. He was seen by physical and Occupational Therapy and was able ambulate 190 feet contact-guard assist with a wheeled walker. No noticeable antalgic gait was noted but he did use his upper extremities to offload his left lower extremity some. Information was sent to his insurance company as he has commercial Medicare product and after reviewing of his therapy notes they declined ongoing therapy at the time of discharge and a skilled facility setting. Patient was frustrated however agreeable to go home. They plan to continue with outpatient therapy after discharge. I did send a prescription for Lovenox 85 mg twice daily to be taken until he is instructed otherwise. I have also asked him to call and follow-up with hematology with regards to his breakthrough clot on Eliquis as he did not have any significant disruption from anticoagulation and still developed a distal left lower extremity DVT. He is to follow-up with orthopedic surgery as previously recommended and his primary care physician within the next 1 to 2 weeks. He was discharged home in stable condition on 08/08/2024. Discharge diagnoses: Acute left lower extremity below the knee DVT Chronic anticoagulation with Eliquis History of VTE Recent left total knee arthroplasty Shingles Generalized weakness Ambulatory dysfunction Essential hypertension Hyperlipidemia Hypothyroidism DM-2 CKD stage IIIb GERD Neuropathy Fibromyalgia Physical Exam Const alert, oriented x3, no apparent distress, average body habitus, no limitations, healthy appearing and well nourished Constitutional Narrative: Elderly, white male, sitting up in a chair at the bedside reclined with legs elevated, family at bedside, appears comfortable, nontoxic General Appearance: cooperative, comfortable, well kempt and well developed Exam Limitations: no limitations HEENT normocephalic, head/scalp atraumatic and moist oral mucous membranes Resp normal respiratory effort, no retractions, no use of accessory muscles and clear to auscultation bilaterally Auscultation: Negative for rales, rhonchi or wheezes Cardio regular rate, regular rhythm, S1 normal heart sound, S2 normal heart sound, no murmurs, no rub, no gallops and no clicks GI normal to inspection, nondistended, normoactive bowel sounds, soft to palpation and non-tender Extremity Extremity Narrative: Left lower extremity edema, postoperative domenic in place, left knee is lacking complete extension with limited flexion range of motion Skin skin turgor normal, no jaundice, no petechiae and no mottling Skin Narrative: Left knee surgical incision appears to be healing well Neuro oriented x3 and no focal motor deficits Neuro Narrative: Decreased movement left lower extremity due to pain at the knee joint Speech: speech normal Psych affect normal Psych Narrative: Pleasant, interacts appropriately with me Weight / BMI Weight Weight: 84 kg Body Mass Index (BMI) 27.4 ABG / Lab / Microbiology Data 08/06/24 07:01 08/06/24 07:01 Laboratory: Laboratory Results - last 24 hr 08/07/24 15:52: POC Glucose 120 H 08/07/24 22:05: POC Glucose 110 H 08/08/24 06:13: POC Glucose 123 H D/C Instructions Discharge Diet: Low fat / Low cholesterol Discharge Activity: Return to Normal Activity and Use Walker Weight Bearing Status: Weight bearing as tolerated Keep extremity elevated above heart level: Operative Extremity (While sitting) Meaningful Use Info Meaningful Use Meaningful Use Diagnoses (Choose all that apply): None applicable Ischemic Stroke Statin Dosing Therapy Reference: STATIN DOSE THERAPY REFERENCE: * Patients > 75 years receive moderate or high dose statin therapy. * Patients 75 years or YOUNGER should receive HIGH intensity statin dose unless contraindicated. You will be required to document reason for non-treatment if statin daily dose does not meet guidelines. HIGH DOSE STATIN THERAPY DAILY Atorvastatin > than or = to 40 mg Rosuvastatin > than or = to 20 mg Amlodipine + Atorvastatin > than or = to 2.5/40 mg Ezetimibe + Simvastatin 10/80 mg Simvastatin 80mg Discharge Plan Admission Admit Date/Time: 08/05/24 20:01 Primary Reason for Your Visit: Difficulty at home with R knee after replacement Attending Provider: Manuela Marshall Primary Care Provider: Woodrow Al Consulting Providers: Joseph Leslie Instructions Additional Instructions / Restrictions: 1. Continue outpatient rehab with physical therapy as previously prescribed Discharge Orders/Prescriptions Prescriptions: New enoxaparin 100 mg/mL Syringe 85 mg subcut BID Qty: 10 2RF Continued atorvastatin 20 mg tablet 20 mg PO QHS ketoconazole 2 % shampoo 1 applic topical 2XW PRN (Reason: PRN) Patient Comments: as needed omeprazole 40 mg capsule,delayed release(DR/EC) 40 mg PO BID (DME) OneTouch Verio test strips Strip See Rx Instructions .ROUTE .MEDSUPPLY Rx Instructions: Check weekly Dupixent Pen 300 mg/2 mL pen injector 300 mg subcut QMONTH Patient Comments: Pt. states that he takes at the 1st of every month. levothyroxine 50 mcg capsule 50 mcg PO DAILY pyridoxine (vitamin B6) 100 mg tablet 100 mg PO DAILY tizanidine 4 mg tablet 8 mg PO QHS Rx Instructions: Take 2 to 3 tablets orally at bedtime PRN amlodipine 5 mg tablet 5 mg PO QHS folic acid 1 mg tablet 1 mg PO DAILY Qty: 90 3RF losartan 25 MG tablet 25 mg PO DAILY Patient Comments: blood pressure ascorbate calcium (vitamin C) 500 mg tablet 1 g PO DAILY cholecalciferol (vitamin D3) 25 mcg (1,000 unit) capsule 2,000 unit PO DAILY Patient Comments: vitamin,supplement cyanocobalamin (vitamin B-12) [Vitamin B-12] 1,000 mcg tablet 1,000 mcg PO DAILY valacyclovir 1 gram tablet 1,000 mg PO Q12H verapamil 240 mg tablet extended release 240 mg PO 1500 gabapentin 600 mg tablet 600 mg PO TID Patient Comments: see MAR-took preop 07/29/24 polysaccharide iron complex [Ferrex 150] 150 mg iron Capsule 150 mg PO DAILY 21 Days Qty: 21 0RF acetaminophen 500 mg Tablet 1,000 mg PO TID Qty: 0 0RF Rx Instructions: Do not take more than 3000 mg Tylenol in a 24-hour period. oxycodone 5 mg Tablet 5 - 10 mg PO Q4H PRN PRN (Reason: Pain Score 4-10) 7 Days Qty: 42 0RF sennosides-docusate sodium [Stimulant Laxative Plus] 8.6-50 mg Tablet 2 tab PO BID 5 Days Qty: 20 0RF Rx Instructions: Take until first bowel movement, then as needed with iron supplement Held Eliquis 5 mg tablet 5 mg PO BID Hold Instructions: Until otherwise instructed Discontinued duloxetine 60 MG capsule 60 mg PO .EVERY 2 DAYS Patient Comments: enhance mood Referrals / Follow Up: Woodrow Al MD [Primary Care Provider] - Within 1 Week Arleth Matthews MD [Med Staff - Active Staff] - See Referral Note (Call later today or tomorrow to be seen at first availability there is no urgency) Disposition Disposition (needs filled in before D/C Order can be placed): Home, Self Care Charges/Coding Visit Charges Inpatient E&M: 02410 Disch Hosp
[2024-08-08 15:05] LABS: Bedside Glucose 142 mg/dL (74-106)
[2024-08-08 15:15] VITALS: BP 113/48; PULSE 68; RESP 19; TEMP 37.3; O2SAT 98
== END 2024-08-08 16:01 | disposition home or self-care (01) ==
LOC: ED 19:07 → MS3 21:04
PROVIDERS: Admitting Provider Internal Medicine; Emergency Provider Emergency Medicine; PCP Family Medicine; Visit Provider Internal Medicine
DX: I82.432 Acute embolism and thrombosis of left popliteal vein (principal); E11.22 Type 2 diabetes mellitus with diabetic chronic kidney disease; E11.42 Type 2 diabetes mellitus with diabetic polyneuropathy; N18.32 Chronic kidney disease, stage 3b; B02.9 Zoster without complications; M79.7 Fibromyalgia; K21.9 Gastro-esophageal reflux disease without esophagitis; Z96.652 Presence of left artificial knee joint; E03.9 Hypothyroidism, unspecified; R53.81 Other malaise; Z79.01 Long term (current) use of anticoagulants; M19.90 Unspecified osteoarthritis, unspecified site; R55 Syncope and collapse; M10.9 Gout, unspecified; R62.7 Adult failure to thrive; I12.9 Hypertensive chronic kidney disease with stage 1 through stage 4 chronic kidney disease, or unspecified chronic kidney disease; Z87.891 Personal history of nicotine dependence; Z86.718 Personal history of other venous thrombosis and embolism; R53.1 Weakness; E78.5 Hyperlipidemia, unspecified; Z68.28 Body mass index [BMI] 28.0-28.9, adult; Z79.890 Hormone replacement therapy; R22.42 Localized swelling, mass and lump, left lower limb; Z79.899 Other long term (current) drug therapy; Z91.199 Patient's noncompliance with other medical treatment and regimen due to unspecified reason
CPT/HCPCS: 36415; 71275; 80048; 80053; 82962; 83036; 83605; 83735; 84100; 84443; 85025; 93005; 93971; 94668; 96372; 97110; 97116; 97162; 97166; 97530; 99221; 99285; J7030; Q9967; A4216; G0378

== ENCOUNTER → 2024-08-05 | Outpatient (CLI) | payer MEDICARE, SELFPAY ==
--- NOTE | 2024-08-05 10:53 | VDLE_ITS ---
Reason For Study: Left leg swelling Procedure LEFT This is a venous duplex using B-mode, color GSV is normal. flow and spectral Doppler. CFV is compressible, spontaneous, phasic, Exam performed in department. competent, and demonstrates normal Prelimnary report given to Carine @ Dr. augmentation. Moraes's office and RN @ Dr. Al's FV is compressible, spontaneous, phasic, office. competent and demonstrates normal Patient diaphoretic gave jucie and cookies, augmentation. still not feeling well, took to ED. Acute deep vein thrombosis is noted in the left PopV and T/P Trunk. It is NONCOMPRESSIBLE. PTV is compressible. LT PerV is compressible. VL/Venous Duplex US, Unilateral Interpretation Summary Acute deep vein thrombosis is noted in the left popliteal vein. Acute deep vein thrombosis is noted in the left tibio-peroneal trunk. The remainder of the left lower extremity zain p venous system is patent and compressible. Valvular competence appears intact within the proximal deep venous system on the left . The left great saphenous vein appears patent and compressible seg mentally. Ordering Physician: Justino Moraes Referring Physician: Woodrow Al Performed By: Roxana Alvarado RVT
[2024-08-05 12:22] LABS: Bedside Glucose 85 mg/dL (74-106)
== END | disposition home or self-care (01) ==
LOC: CVS 10:51
PROVIDERS: PCP Family Medicine; Referring Provider Specialist; Visit Provider Specialist
DX: R22.42 Localized swelling, mass and lump, left lower limb (principal)
CPT/HCPCS: 82962; 93971

== ENCOUNTER → 2024-08-09 | Outpatient (CLI) | payer MEDICARE, SELFPAY ==
--- OUTSIDE RECORDS SUMMARY | 2024-08-09 10:32 | XMS RPT_ITS | CCD ---
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 Name Role Phone Yulia Doll Unavailable Zumbar, [...] Deevaaliya labMalick Velez Primary Care Provider [phone] Unavailable Primary Care Provider UnavailMARLON Pierre Attending [...] (2 sources) alfuzosin; Translations: [Uroxatral] Drug Allergy XL-Fipevpleu-N arma 204 Work Phone: Cholesterol Absorption Inhibitors (1 source) ezetimibe; Translations: [Zetia] Drug Allergy PS-Uxouuwled-O arma 204 Work Phone: HMG-CoA Reductase Inhibitors (statins) (1 source) Simvastatin; Translations: [Zocor] Drug Allergy NR-Opulbjlwt-B arma 204 Work Phone: NSAIDs (2 sources) celecoxib; Translations: [CeleBREX CAPS] Drug Allergy BF-Npcugjftl-Q arma 204 Work Phone: Pramipexole (1 source) Pramipexole; Translations: [Mirapex] Drug Allergy JO-Eplsigzxo-I arma 204 Work Phone: (20 sources) alfuzosin; Translations: [Uroxatral] Drug Allergy OP-Lctixrsnr-D arma 204 Work Phone: (20 sources) celecoxib; Translations: [CeleBREX CAPS] Drug Allergy 2 Unknown [facility] (20 sources) ezetimibe; Translations: [ZETIA] Drug Allergy [facility] Repository (20 sources) meloxicam; Translations: [MELOXICAM] Drug Allergy 0 Unknown [facility] Repository (20 sources) Pramipexole; Translations: [MIRAPEX] Drug Allergy [facility] Repository (20 sources) Simvastatin; Translations: [ZOCOR] Drug Allergy [facility] Repository (20 sources) tamsulosin; Translations: [tamsulosin] Drug Allergy 0 Intolerance, Syncope [facility] (1 source) celecoxib Drug Allergy [facility] Repository (13 sources) alfuzosin; Translations: [ALFUZOSIN HCL] Drug Allergy 7 Other: See Comments [facility] (13 sources) ezetimibe; Translations: [EZETIMIBE] Drug Allergy 5 Other: See Comments [facility] (13 sources) Pramipexole; Translations: [PRAMIPEXOLE] Drug Allergy 0 Intolerance [facility] (14 sources) Simvastatin; Translations: [SIMVASTATIN] Drug Allergy 5 Other: See Comments [facility] (1 source) ezetimibe Drug Allergy 0 [facility] (1 source) Pramipexole Drug Allergy 0 [facility] (1 source) celecoxib; Translations: [CELECOXIB] Drug Allergy 2 [facility] Repository Medications Current Medications Medication Drug [...] 10/04/2023 Active Blood-Glucose Meter (ONETOUCH VERIO SYSTEM) [facility] (12 sources) Start: 7 Blood-Glucose Meter (ONETOUCH VERIO SYSTEM) [facility] Use as directed. 1 Each 07/10/2017 Active Start: 07-10-2017 Blood-Glucose Meter (ONETOUCH VERIO SYSTEM) [facility] Use as directed. 1 Each 0 07/10/2017 [...] Comment on above: Take 1 capsule by [facility] once daily. TAKE 1 CAPSULE DAILY [...] Comment on above: Take 1 capsule by [facility] daily at bedtime. 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) drug therapy] Onset: 10-17-2022 Episodic Other aftercare (1 source) [facility] (current) use of oral hypoglycemic drugs; Translations: [[facility] (current) use of oral hypoglycemic drugs] Onset: [...] Test Name Value Interpretation Reference Range Facility [facility] 10-05-2023 [facility] Telephone ([facility]) TEMO GARRISON ([id number]) 1940 M Date Time Provider Department 10/05/23 JESSICA ORTIZ [facility] During your visit today, we recorded the following information about you: Jessica Ortiz APRN.[facility] 10/05/2023 7:55 AM Signed Left message notifying [...] mg by mouth twice daily. - lancets ([address] LANCETS) 30 gauge misc Use as directed to test glucose 3 times weekly. DX: E11.9 - dupilumab (DUPIXENT SUBCUTANEOUS) Inject subcutaneously as needed (taking every three weeks). 08/17/2021 reported taking every 3 weeks - cyanocobalamin, vitamin B-12, (VITAMIN B-12 INJECTION) by INJECTION(UNSPECIFIED PARENTERAL ROUTES) route once every month. - blood sugar diagnostic ([employer]) test strip USE ONE STRIP TO CHECK GLUCOSE ONCE DAILY - losartan (COZAAR) 25 mg tablet TAKE 1 TABLET DAILY - ketoconazole (NIZORAL) 2 % shampoo Apply 1 application to affected area once daily as needed. - atorvastatin (LIPITOR) 20 mg tablet Take 1 tablet by mouth once daily. - Blood-Glucose Meter (Omise VERIO SYSTEM) misc Use as directed. - [...] obstruction [N32.0] 05/28/2007 01/03/2014 Postoperative urethral stricture [NIU3618] 11/26/2007 01/03/2014 Cellulitis and abscess of toe, [...] [R39.198] 09/19/201102/13 (more content not included)... Normal [facility] CNOVon 10-04-2023 CNOV Office Visit (UCWSTR ) TEMO GARRISON ([id number]) 1940 M Date Time Provider Department 10/04/23 [...] Dr. Berry Chronic kidney disease, stage 3 ([facility]) Seeing Dr. Moss DDD (degenerative disc disease), cervical DDD (degenerative disc disease), lumbar Seeing Dr. Thayer Diarrhea Diverticulosis of colon (without mention of hemorrhage) DVT (deep venous thrombosis) ([facility]) 08/06/2020 Essential tremor External hemorrhoids [...] complication, without long-term current use of insulin ([facility]) 06/07/[address] Owens Uveitis [...] 600 mg by mouth twice daily. lancets ([address]ie [address] LANCETS) 30 gauge misc Use as directed to test glucose 3 times weekly. DX: E11.9 dupilumab (DUPIXENT SUBCUTANEOUS) Inject subcutaneously as needed (taking every three weeks). 08/17/2021 reported taking every 3 weeks cyanocobalamin, vitamin B-12, (VITAMIN B-12 INJECTION) by INJECTION(UNSPECIFIED PARENTERAL ROUTES) route once every month. blood sugar diagnostic ([employer]) test strip USE ONE STRIP TO CHECK GLUCOSE ONCE DAILY losartan (COZAAR) 25 mg tablet TAKE 1 TABLET DAILY ketoconazole (NIZORAL) 2 % shampoo Apply 1 application to affected area once daily as needed. atorvastatin (LIPITOR) 20 mg tablet Take 1 tablet by mouth once daily. Blood-Glucose Meter (Omise VERIO SYSTEM) misc Use as directed. Cholecalciferol, Vitamin D3, 2,000 unit ORAL Cap Take 2,000 Units by mouth. ascorbic acid(VITAMIN C 500 MG TAB) Take one (1) tablet twice daily. FAMILY HISTORY Problem Relation Age of Onset Diabetes Father other (down'ssyndrome) Brother Hypertension Mother other (Other) Mother Acute Renal Failure/AAA other (Aortic aneurysm) Mother Ischemic Heart Disease Brother 58 [place] Alcohol/Drug Brother Breast Cancer Sister Diabetes Maternal Grandmother Rheumatologic disease Maternal Grandfather Anesthesia Problems No Family H (more content not included)... Normal [facility] Arevalo COVID AND INFLUENZA A/B AND RSV NAAT, ROUTINEon 10-04-2023 SARS-CoV-2 (COVID-19) RNA SADE+probe Ql (Unsp spec) COVID 19 RESULT: Detected The method used is RT-PCR or an equivalent NAAT method. Reference Range (the expected result in uninfected individuals): Not detected INFLUENZA A PCR: Not detected INFLUENZA B PCR: Not detected RSV PCR: Not detected Abnormal [facility] Comment on above: Performed By: #### C VFLRS #### [facility] CLIA [id number] [address] [place] [address] [place] XR CHEST 2V FRONTAL/LATon [...] acute findings IMPRESSION: No acute radiographic abnormality. Physical Integration Practitioner: MANE Transcribe Date/Time: Oct 04 2023 2:53P Dictated by : TRUONG ENG MD This examination was interpreted and the report reviewed and electronically signed by: TRUONG ENG MD on Oct 04 2023 2:59PM EST [id number] Normal [facility] XR Chest PA and Lateralon IMPRESSION: No acute radiographic abnormality. Physical Integration Practitioner: MANE Transcribe Date/Time: Oct 04 2023 2:53P [...] acute findings DIVISION OF RADIOLOGY Provider, [facility] - 10/04/2023 * * *Final Report* [...] findings IMPRESSION IMPRESSION: No acute radiographic abnormality. Physical Integration Practitioner: PSCB Transcribe Date/Time: Oct 04 2023 2:53P Dictated by : TRUONG ENG MD This examination was interpreted and the report reviewed and electronically signed by: TRUONG ENG MD on Oct 04 2023 2:59PM EST [facility] Radiology Study observation (narrative) [facility] XR Chest PA and LateralOrder ed By: Ccf Provider on 10-04-2023 [facility] CNOVon 06-08-2023 CNOV Office Visit (GENSWS ) TEMO GARRISON ([id number]) 1940 M Date Time Provider Department 06/08/23 [...] feel free to call our office at [phone] and ask to be transferred to General Surgery. Thank you for choosing [facility] - General Surgery. Chidi Burton MD 06/08/2023 12:24 PM Signed FOLLOW UP VISIT - HEMORRHOID BANDING NAME: Temo Garrison [facility] NO.: [id number] DATE OF SERVICE: 06/08/2023 : 1940 REFERRING [...] Comments Comments: (more content not included)... Normal [facility] CNOVon 05-18-2023 CNOV Office Visit (GENSWS ) TEMO GARRISON ([id number]) 1940 M Date Time Provider Department 05/18/23 [...] mention of hemorrhage) DVT (deep venous thrombosis) ([facility]) 08/06/2020 Essential tremor External hemorrhoids [...] complication, without long-term current use of insulin ([facility]) 06/07/[address] Owens Uveitis [...] 600 mg by mouth twice daily. lancets ([address] LANCETS) 30 gauge misc Use as directed to test glucose 3 times weekly. DX: E11.9 dupilumab (DUPIXENT SUBCUTANEOUS) Inject subcutaneously as needed (taking every three weeks). 08/17/2021 reported taking every 3 weeks cyanocobalamin, vitamin B-12, (VITAMIN B-12 INJECTION) by INJECTION(UNSPECIFIED PARENTERAL ROUTES) route once every month. blood sugar diagnostic (Omise VERIO) test strip USE ONE STRIP TO CHECK GLUCOSE ONCE DAILY losartan (COZAAR) 25 mg tablet TAKE 1 TABLET DAILY ketoconazole (NIZORAL) 2 % shampoo Apply 1 application to affected area once daily as needed. atorvastatin (LIPITOR) 20 mg tablet Take 1 tablet by mouth once daily. Blood-Glucose Meter (Wild [employer] VERIO SYSTEM) misc Use as directed. Cholecalciferol, Vitamin D3, 2,000 (more content not included)... Normal [facility] Office Visit (Sleep Medicine )on 02-27-2023 Follow-up [...] or mask interface, please FIRST contact your [employer]. [employer] can be reached at [phone]. For questions concerning your SLEEP CLINIC appointment: Call [phone] SLEEP LAB [phone] or [phone]. CAUTIONS for New PAP users: 1. You should know the [facility] compliance criteria if you have Medicare or [...] Sites: For patients with ALL SLEEP DISORDERS: [place] Academy [employer] Sleep Medicine http://sleepeducation.org; or National Sleep Foundation: https://sleepfoundation.org For patients with ROSITA: [place] Sleep Apnea Association: https://www.sleepapnea.org For patients with RLS: RLS Foundation: https://www.rls.org For patients with INSOMNIA: https://www.helpguide.org/codi zavala/sleep/insomnia-caus tw-ock-owvub.htm For patients with DEPRESSION: http://www.unbrokenwings.co m/depression Provider [...] 0.6V functional:0.7V (more content not included)... Normal [facility] Tobacco Screening.on 023 Fall risk assessment a) No falls within the last year [facility] [employer] A2470 DO Work Phone: Tobacco use status [facility] b) No [facility] A2470 DO Work Phone: CNPNon 02-15-2023 [facility] Telephone ([employer]) TEMO GARRISON ([id number]) 1940 M Date Time Provider Department 02/15/23 [...] by mouth daily at bedtime. - lancets ([employer]ise [employer] LANCETS) 30 gauge misc Use as [...] mouth once daily. - blood sugar diagnostic (Omise VERIO) test strip USE ONE STRIP TO [...] by mouth once daily. - Blood-Glucose Meter (Wild NeedleUCH VERIO SYSTEM) misc Use as directed. - [...] obstruction [N32.0] 05/28/2007 01/03/2014 Postoperative urethral stricture [MEV6528] 11/26/2007 01/03/2014 Cellulitis and abscess of toe, [...] Status:Closed by KATHERINE GAO on 02/15/23 Normal [facility] Office Visit (Sleep Medicine )on 11-21-2022 Follow-up [...] or mask interface, please FIRST contact your [employer] company. [employer] can be reached at [phone]. For questions concerning your SLEEP CLINIC appointment: Call [phone] SLEEP LAB [phone] or [phone]. CAUTIONS for New PAP users: 1. You should know the [facility] compliance criteria if you have Medicare or [...] Sites: For patients with ALL SLEEP DISORDERS: [place] Academy [employer] Sleep Medicine http://sleepeducation.org; or National Sleep Foundation: https://sleepfoundation.org For patients with ROSITA: [place] Sleep Apnea Association: https://www.sleepapnea.org For patients with RLS: RLS Foundation: https://www.rls.org For patients with INSOMNIA: https://www.helpguide.org/a rticles/sleep/insomnia-caus on-bpe-dvuhq.htm For patients with DEPRESSION: http://www.unbroGnodalgs.co m/depression Provider Impressions 81 year M with [...] Oblique fracture of the distal right fibula Physical Integration Practitioner: [facility] Transcribe Date/Time: Jun 03 2022 10:41A Dictated by : SREEKANTH PENDLETON MD This examination was interpreted and the report reviewed and electronically signed by: SREEKANTH PENDLETON MD on Jun 03 2022 10:43AM [facility] DIVISION OF RADIOLOGY Radiology Study observation (narrative) [facility] No Panel InformationOrdered By: Ccf Provider on 06-03-2022 [facility] XR Ankle - right AP and [...] AP/LAT/OBL RT -- RIGHT with 2 (accession [id number]), 3 (accession [id number]) views on 2 (accession [id number]), 3 (accession [id number]) images Comparison: None RESULT: Oblique fracture of the distal right fibula with approximately 3 mm displacement. No dislocation. Ankle mortise is maintained. Plantar calcaneal spur. Right knee prosthesis. Soft tissue swelling of the right ankle. DIVISION OF RADIOLOGY Provider, [facility] - 06/03/2022 * * *Final Report* * [...] AP/LAT/OBL RT -- RIGHT with 2 (accession [id number]), 3 (accession [id number]) views on 2 (accession [id number]), 3 (accession [id number]) images Comparison: None RESULT: Oblique fracture of the distal right fibula with approximately 3 mm displacement. No dislocation. Ankle mortise is maintained. Plantar calcaneal spur. Right knee prosthesis. Soft tissue swelling of the right ankle. IMPRESSION IMPRESSION: Oblique fracture of the distal right fibula Physical Integration Practitioner: [facility] Transcribe Date/Time: Jun 03 2022 10:41A Dictated by : SREEKANTH PENDLETON MD This examination was interpreted and the report reviewed and electronically signed by: SREEKANTH PENDLETON MD on Jun 03 2022 10:43AM [facility] XR Tibia and Fibula - right AP [...] AP/LAT/OBL RT -- RIGHT with 2 (accession [id number]), 3 (accession [id number]) views on 2 (accession [id number]), 3 (accession [id number]) images Comparison: None RESULT: Oblique fracture of the distal right fibula with approximately 3 mm displacement. No dislocation. Ankle mortise is maintained. Plantar calcaneal spur. Right knee prosthesis. Soft tissue swelling of the right ankle. DIVISION OF RADIOLOGY Provider, [facility] - 06/03/2022 * * *Final [...] AP/LAT/OBL RT -- RIGHT with 2 (accession [id number]), 3 (accession [id number]) views on 2 (accession [id number]), 3 (accession [id number]) images Comparison: None RESULT: Oblique fracture of the distal right fibula with approximately 3 mm displacement. No dislocation. Ankle mortise is maintained. Plantar calcaneal spur. Right knee prosthesis. Soft tissue swelling of the right ankle. IMPRESSION IMPRESSION: Oblique fracture of the distal right fibula Physical Integration Practitioner: [facility] Transcribe Date/Time: Jun 03 2022 10:41A Dictated by : SREEKANTH PENDLETON MD This examination was interpreted and the report reviewed and electronically signed by: SREEKANTH PENDLETON MD on Jun 03 2022 10:43AM EST [facility] Office Visit (Sleep Medicine )on 03-21-2022 Follow-up visit Diagnoses/Problems Assessed Obstructive sleep apnea, adult (327.23) (G47.33) Orders Obstructive sleep apnea, adult In Lab PSG Sleep Study, 6 years of age and greater; Status:Hold For - Scheduling; Requested for:21Mar2022; Perform:Sleep Lab - [place] [facility]; Order Comments:inspire titration study. Please start at 2.0V. do not use oral appliance during this study please.; Due:[id number];Ordered; For:Obstructive sleep apnea, adult; Ordered By:Justin Dial; [...] or mask interface, please FIRST contact your [employer]. [employer] can be reached at [phone]. For questions concerning your SLEEP CLINIC appointment: Call [phone] SLEEP LAB [phone] or [phone]. CAUTIONS for New PAP users: 1. You [...] Sites: For patients with ALL SLEEP DISORDERS: [place] Academy of Sleep Medicine http://sleepeducation.org; or National Sleep Foundation: https://sleepfoundation.org For patients with ROSITA: [place] Sleep Apnea Association: https://www.sleepapnea.org For patients with RLS: RLS Foundation: https://www.rls.org For patients with INSOMNIA: https://www.helpguide.org/a rticles/sleep/insomnia-caus pj-jwe-ranaj.htm For patients with DEPRESSION: http://www.unbrokenwings.co m/depression Provider [...] POSTPROC EVALon ANES POSTPROC EVAL HNO ID: [id number] Author: Wolfgang Carney MD Service: Anesthesiology Author Type: Physician Type: Anesthesia Postprocedure Evaluation Filed: 12/13/2021 12:49 PM Note Text: POST ANESTHESIA EVALUATION NOTE : 1940 Procedure Summary Date: 12/13/21 Room / Location: [facility] Endoscopy Anesthesia Start: 1110 Anesthesia Stop: 1132 Procedure: EGD DIAGNOSTIC Diagnosis: 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 (Follow-up of Small's esophagus) Scheduled Providers: Chidi Burton MD; Norma Angel APRN.PROJECT MANAGEMENT ANALYST; Wolfgang Carney MD Responsible Provider: Wolfgang Carney [...] December 13, 2021 TIME: 12:48 PM CSN: [id number] Normal [facility] ANES PRE-OPon 12-13-2021 ANES PRE-OP HNO ID: [id number] Author: Wolfgang Carney MD Service: Anesthesiology Author Type: Physician Type: Anesthesia Preprocedure Evaluation Filed: 12/13/2021 10:10 AM Note Text: ANESTHESIOLOGY DAY OF SURGERY NOTE : 1940 Procedure Information Date/Time: 12/13/21 1100 Scheduled providers: Chidi Burton MD; Norma Angel APRN.PROJECT MANAGEMENT ANALYST; Wolfgang Carney MD Procedure: EGD DIAGNOSTIC Location: [facility] Endoscopy Estimated body mass index is 27.8 [...] mg by mouth twice daily. - lancets ([address] LANCETS) 30 gauge misc Use as directed to test glucose 3 times weekly. DX: E11.9 - dupilumab (DUPIXENT SUBCUTANEOUS) Inject subcutaneously as needed (taking every three weeks). 08/17/2021 reported taking every 3 weeks (Patient not taking: Reported on 12/02/2021 ) - cyanocobalamin, vitamin B-12, (VITAMIN B-12 INJECTION) by INJECTION(UNSPECIFIED PARENTERAL ROUTES) route once every month. - blood sugar diagnostic ([employer] VERIO) test strip USE ONE STRIP TO CHECK GLUCOSE ONCE DAILY - ketoconazole (NIZORAL) 2 % shampoo Apply 1 application to affected area once daily as needed. - acyclovir (ZOVIRAX) 200 mg capsule Take 2 capsules by mouth twice daily. (suppressive therapy) (Patient not taking: Reported on 12/02/2021 ) - Blood-Glucose Meter (Wild [employer]leUCH VERIO SYSTEM) misc Use as directed. No current facility-administered medications on file as of 12/13/2021. I have interviewed and examined the patient. I have reviewed the medical record and/or the pre-anesthesia evaluation, pertinent labs, and test results. This contains updated information obtained within 48 hours of Surgery/Procedure. SIGNATURE: Wolfgang Carney MD PATIENT NAME: Temo Garrison DATE: December 13, 2021 TIME: 10:09 AM CSN: [id number] Normal [facility] HISTORY PHYSICALon 2 HISTORY PHYSICAL HNO ID: [id number] Author: Chidi Burton MD Service: General Surgery [...] night. ? He is seeing someone in [place] [facility] because a steel wire in his [...] MEDICAL HISTORY (more content not included)... Normal [facility] SURGICAL PATHOLOGYon 022 CASE REPORT Normal [facility] Comment on above: Order Comment: Speci men Type: TISSUE SPECIMEN [facility] Address: [address] [place] [phone] Result Comment: Surg ica Pathology Report Case: [id number] Authorizing Provider: Chidi Burton MD Collected: 12/13/2021 11:25 AM Ordering Location: [facility] Endoscopy Received: 12/13/2021 01:42 PM Pathologist: Jose Alfredo Mcguire MD Specimens: A) - ANTRUM (STOMACH) BIOPSY B) - ESOPHAGUS BIOPSY, @40cm C) - ESOPHAGUS BIOPSY, @38cm Performed By: #### S #### [facility] CLIA [id number] [address] CLIA [id number] [address] [place], [place] [address] [place] [address] CLINICAL HISTORY 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 [facility] Comment on above: Order Comment: Speci men Type: TISSUE SPECIMEN [facility] Facility[facility] Address: [address] [place] [address] Performed By: #### S #### [facility] CLIA [id number] [address] [place], [place] [address]NA [facility] CLIA [id number] [address] FINAL DIAGNOSIS [facility] Comment on above: Order Comment: Spec men Type: TISSUE SPECIMEN [facility] Address: [address] [place] [address] Result Comment: A. A ntrum, biopsy: - Antral mucosa with foveolar hyperplasia and minimal chronic inflammation; no evidence of H. pylori. B. Esophagus, biopsy: - Fundic mucosa with minimal chronic inflammation; no evidence of intestinal metaplasia or dysplasia. C. Esophagus, biopsy: Inflamed squamous and cardiac-type mucosa with focal intestinal metaplasia; negative for dysplasia. Performed By: #### S #### [facility] CLIA [id number] [address] [place], [place] [address]NA LAB[facility]ATORY CLIA [id number] [address] FINAL PERFORMING LAB Normal [facility] Comment on above: Order Comment: Speci men Type: TISSUE SPECIMEN [facility] Address: [address] [place] [address] Result Comment: Diag nostic interpretation performed at [facility], [address] [facility], [place] [address] CLIA# [id number] Quality Control Assessor: Amairani Clark M.D. Performed By: #### S #### [facility] CLIA [id number] [address] [place], [place] [id number] [facility] CLIA [id number] [address] GROSS DESCRIPTION Normal [facility] Comment on above: Order Comment: Speci men Type: TISSUE SPECIMEN [facility] Address: [address] [facility], [place] [id number] Result Comment: A. A NTRUM (STOMACH) BIOPSY. [...] 2021 8:05 PM Gross examination performed at [facility], [address] [place] [address] Performed By: #### S #### [facility] CLIA [id number] [address] [place] [address] OF [facility] CLIA [id number] [address] 12-02-2021 [place] Telephone ([place]) TEMO GARRISON ([id number]) 1940 M Date Time Provider Department 12/02/21 ROE COOK During your visit today, we recorded the following information about you: Roe Cook APRN.CNP 12/02/2021 12:23 PM Signed Patient seen at [facility] 12/02 for upcoming EGD on 12/13 with . 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 Does patient need to hold this for 3 days prior to surgery? Roe Cook APRN.CNP 12/02/2021 3:50 PM Signed Please call and relay message below to patient. Thanks! Roe Cook APRN.BUFFING WHEEL OPERATOR Chidi Burton MD You 21 minutes ago [...] Date Reviewed: 12/02/2021 Reviewed by: Roe Cook APRN.BUFFING WHEEL OPERATOR - Fully Assessed Reason for Visit: Patient [...] mouth once daily. - blood sugar diagnostic (Wild NeedleUCH VERIO) test strip USE ONE STRIP TO [...] twice daily. (suppressive therapy) - Blood-Glucose Meter (Wild NeedleUCH VERIO SYSTEM) misc Use as directed. - [...] obstruction [N32.0] 05/28/2007 01/03/2014 Postoperative urethral stricture [[id number]] 11/26/2007 01/03/2014 Cellulitis and abscess of toe, [...] thrombosis) ( (more content not included)... Normal [facility] HISTORY PHYSICALon HISTORY PHYSICAL HNO ID: [id number] Author: Roe Cook APRN.BUFFING WHEEL OPERATOR Service: ? Author Type: Nurse Practitioner Type: [...] of hemorrhage) - DVT (deep venous thrombosis) ([facility]) 08/06/2020 - Essential tremor - [...] complication, without long-term current use of insulin ([facility]) 06/07/[address] 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 Normal [facility] Tobacco Screening.on Fall risk assessment a) No falls within the last year [facility] [address] DO Work Phone: [phone] Tobacco use status CPHS b) No [facility] [facility] DO Work Phone: [phone] ARTERIAL BLOOD GASon 12-14-2 021 BASE EXCESS-BLOOD 6.1 mmol/L High -2.0 - 3.0 [facility] Comment on above: Performed By: #### B LGA1 #### [place] [address] BICARB, CALCULATED 29.6 mmol/L High 22.0 - 26.0 [facility] Comment on above: Performed By: #### Gianni LGA1 #### [place] [address] FIO2 21 % Normal [facility] Comment on above: Performed By: #### Gianni LGA1 #### [place] [address] Oxygen (Bld) [Partial pressure] 93 mm[Hg] Normal 85 - 95 [facility] Comment on above: Performed By: #### Gianni LGA1 #### [place] [address] PCO2 38 mmHg Normal 38 - 42 [facility] Comment on above: Performed By: #### Gianni LGA1 #### [place] [address] pH (Bld) 7.50 [pH] High 7.38 - 7.42 [facility] Comment on above: Performed By: #### Gianni LGA1 #### [place] [address] SO2 99 % Normal 94 - 100 [facility] Comment on above: Performed By: #### Gianni LGA1 #### [place] [address] COOX PANEL, ARTERIALon 09-28 CO HGB 1.6 % Abnormal [facility] Comment on above: Result Comment: REF VALUES NONSMOKERS 0.5-1.5% SMOKERS 0.5-10.0% Performed By: #### C OOXA #### [place] [address] DEOXY HGB 1.5 % Normal 0.0 - 5.0 [facility] Comment on above: Performed By: #### C OOXA #### [place] [id number] Hemoglobin (Bld) [Mass/Vol] 15.0 g/dL Normal 13.5 - 17.5 [facility] Comment on above: Performed By: #### C OOXA #### [address] [address] MET HGB 0.6 % Normal 0.0 - 1.5 [facility] Comment on above: Performed By: #### C OOXA #### [address] [address] OXY HGB 96.3 % Normal 94.0 - 98.0 [facility] Comment on above: Performed By: #### C OOXA #### [address] [address] Laboratory - Chemistry and C hemistry - [...] make patient management decisions.Fact sheet for providers: https://www.fda.gov/media/434679/downloadFact sheet for patients: https://www.fda.gov/media/113323/downloadThis test has received FDA Emergency Use Authorization (EUA) and has been verified by [facility] ([facility]). This test is only authorized for the duration of time that circumstances exist to justify the authorization of the emergency use of in vitro diagnostic tests for the detection of SARS-CoV-2 virus and/or diagnosis of COVID-19 infection under section 564(b)(1) of the Act, 21 U.S.C. 360bbb-3(b)(1), unless the authorization is terminated or revoked sooner. [facility] is certified under CLIA-88 as qualified to perform high complexity testing. Testing is performed in the [facility] laboratories located at [address] [place] [address]. Tobacco Screening.on Fall risk assessment b) One [...] Performed By: #### M HERIBERTO #### [facility] [address] [place], [place] [id number] TRIIODOTHYRONINEon 1 TRIIODOTHYRONINE 88 ng/dL Normal 60 - 200 [facility] Comment on above: Performed By: #### T 3 #### [facility] [address] [place] [address] CBC AND DIFFERENTIALon 07-22 Basophils (Bld) [#/Vol] 0.10 10*3/uL Normal 0.00 - 0.10 [facility] Comment on above: Performed By: #### C BCDF #### [address] [address] Basophils/100 WBC (Bld) 0.7 % Normal 0.0 - 2.0 [facility] Comment on above: Performed By: #### C BCDF #### [address] [address] Eosinophils (Bld) [#/Vol] 0.10 10*3/uL Normal 0.00 - 0.40 [facility] Comment on above: Performed By: #### C BCDF #### [address] [address] Eosinophils/100 WBC (Bld) 2.0 % Normal 0.0 - 6.0 [facility] Comment on above: Performed By: #### C BCDF #### [address] [address] Erythrocyte distribution width (RBC) [Ratio] 14.0 % Normal 11.5 - 14.5 [facility] Comment on above: Performed By: #### C BCDF #### [address] [address] Hematocrit (Bld) [Volume fraction] 42.1 % Normal 41.0 - 52.0 [facility] Comment on above: Performed By: #### C BCDF #### [address] [address] Hemoglobin (Bld) [Mass/Vol] 13.8 g/dL Normal 13.5 - 17.5 [facility] Comment on above: Performed By: #### C BCDF #### [address] [address] Lymphocytes (Bld) [#/Vol] 1.60 10*3/uL Normal 0.80 - 3.00 [facility] Comment on above: Performed By: #### C BCDF #### [address] [address] Lymphocytes/100 WBC (Bld) 22.4 % Normal 13.0 - 44.0 [facility] Comment on above: Performed By: #### C BCDF #### [address] [address] MCHC (RBC) [Mass/Vol] 32.7 g/dL Normal 32.0 - 36.0 [facility] Comment on above: Performed By: #### C BCDF #### [address] [address] MCV (RBC) [Entitic vol] 101 fL High 80 - 100 [facility] Comment on above: Performed By: #### C BCDF #### [address] [address] Monocytes (Bld) [#/Vol] 0.60 10*3/uL Normal 0.05 - 0.80 [facility] Comment on above: Performed By: #### C BCDF #### [address] [address] Monocytes/100 WBC (Bld) 7.6 % Normal 2.0 - 10.0 [facility] Comment on above: Performed By: #### C BCDF #### [address] [address] Neutrophils (Bld) [#/Vol] 4.90 10*3/uL Normal 1.60 - 5.50 [facility] Comment on above: Result Comment: Perc ent differential counts (%) should be interpreted in the context of the absolute cell counts (cells/L). Performed By: #### C BCDF #### [address] [address] Neutrophils/100 WBC (Bld) 67.3 % Normal 40.0 - 80.0 [facility] Comment on above: Performed By: #### C BCDF #### [address] [address] NUCLEATED RBC 0.1 /[address] [facility] Comment on above: Performed By: #### C BCDF #### [address] [address] Platelets (Bld) [#/Vol] 223 10*3/uL Normal 150 - 450 [facility] Comment on above: Performed By: #### C BCDF #### [address] [address] RBC 4.16 x10E12/L Low 4.50 - 5.90 [facility] Comment on above: Performed By: #### C BCDF #### [address] [address] WBC (Bld) [#/Vol] 7.2 10*3/uL Normal 4.4 - 11.3 [facility] Comment on above: Performed By: #### C BCDF #### [place] [id number] COMPREHENSIVE PANELon 2020 ALP [Catalytic activity/Vol] 68 U/L Normal 33 - 136 [facility] Comment on above: Performed By: #### C MP #### [address] [address] Albumin [Mass/Vol] 3.8 g/dL Normal 3.4 - 5.0 [facility] Comment on above: Performed By: #### C MP #### [address] [address] ALT [Catalytic activity/Vol] 21 U/L Normal 10 - 52 [facility] Comment on above: Result Comment: Page ents treated with Sulfasalazine may generate falsely decreased results for ALT. Performed By: #### C MP #### [address] [address] Anion gap [Moles/Vol] 10 mmol/L Normal 10 - 20 [facility] Comment on above: Performed By: #### C MP #### [address] [address] AST [Catalytic activity/Vol] 19 U/L Normal 9 - 39 [facility] Comment on above: Performed By: #### C MP #### [address] [address] Bilirubin [Mass/Vol] 0.5 mg/dL Normal 0.0 - 1.2 [facility] Comment on above: Performed By: #### C MP #### [address] [address] Calcium [Mass/Vol] 8.7 mg/dL Normal 8.6 - 10.3 [facility] Comment on above: Performed By: #### C MP #### [address] [address] Chloride [Moles/Vol] 104 mmol/L Normal 98 - 107 [facility] Comment on above: Performed By: #### C MP #### [address] [address] Creatinine [Mass/Vol] 1.74 mg/dL High 0.50 - 1.30 [facility] Comment on above: Performed By: #### C MP #### [address] [address] GFR- AM. 46 mL/min/1.73m2 Abnormal >60 [facility] Comment on above: Result Comment: CALC ULATIONS OF ESTIMATED GFR ARE PERFORMED USING THE MDRD STUDY EQUATION FOR THE IDMS-TRACEABLE CREATININE METHODS. CLIN CHEM 2007;53:766-72 Performed By: #### C MP #### [address] [address] GFR-NON AM. 38 mL/min/1.73m2 Abnormal >60 [facility] Comment on above: Performed By: #### C MP #### [address] [address] Glucose [Mass/Vol] 136 mg/dL High 74 - 99 [facility] Comment on above: Performed By: #### C MP #### [address] [address] HCO3 (Bld) [Moles/Vol] 29 mmol/L Normal 21 - 32 [facility] Comment on above: Performed By: #### C MP #### [address] [address] Potassium [Moles/Vol] 4.3 mmol/L Normal 3.5 - 5.3 [facility] Comment on above: Performed By: #### C MP #### [address] [address] Protein [Mass/Vol] 6.2 g/dL Low 6.4 - 8.2 [facility] Comment on above: Performed By: #### C MP #### [address] [address] Sodium [Moles/Vol] 139 mmol/L Normal 136 - 145 [facility] Comment on above: Performed By: #### C MP #### [address] [address] Urea nitrogen [Mass/Vol] 25 mg/dL High 6 - 23 [facility] Comment on above: Performed By: #### C MP #### [address] [address] Complete Blood Count + Diffamerica dwyer 07-22-2021 Basophils/100 WBC (Bld) 0.7 % 0.0 - 2.0 -[facility] [address] Work Phone: Erythrocyte distribution width (RBC) [Ratio] 14.0 % See Below -[facility] [address] Work Phone: Comment on above: Reference Range: 11. 5 - 14.5 Hematocrit (Bld) [Volume fraction] 42.1 % See Below -[facility] [address] Work Phone: Comment on above: Reference Range: 41. 0 - 52.0 Hemoglobin (Bld) [Mass/Vol] 13.8 g/dL See Below -[facility] [address] Work Phone: Comment on above: Reference Range: 13. 5 - 17.5 Lymphocytes/100 WBC (Bld) 22.4 % See Below -[facility] [address] Work Phone: Comment on above: Reference Range: 13. 0 - 44.0 MCHC (RBC) [Mass/Vol] 32.7 g/dL See Below -[facility] [address] Work Phone: Comment on above: Reference Range: 32. 0 - 36.0 MCV (RBC) [Entitic vol] 101 fL above high threshold 80 - 100 [facility] [address] Work Phone: Monocytes/100 WBC (Bld) 7.6 % 2.0 - 10.0 [facility] [address] Work Phone: Neutrophils/100 WBC (Bld) 67.3 % See Below [facility] [address] Work Phone: Comment on above: Reference Range: 40. 0 - 80.0 Platelets (Bld) [#/Vol] 223 10*3/uL 150 - 450 [facility] [address] Work Phone: RBC (Bld) [#/Vol] 4.16 {x10E12/L} below low threshold See Below [facility] [address] Work Phone: Comment on above: Reference Range: 4.5 0 - 5.90 WBC (Bld) [#/Vol] 7.2 10*3/uL 4.4 - 11.3 [facility] [address] Work Phone: Complete Blood Count + Differential 0.10 {x10E9/L} See Below [facility] [address] Work Phone: Comment on above: Reference Range: 0.0 0 - 0.10 Reference Range: 0.0 0 - 0.40 Complete Blood Count + Differential 0.60 {x10E9/L} See Below [facility] [address] Work Phone: Comment on above: Reference Range: 0.0 5 - 0.80 Complete Blood Count + Differential 1.60 {x10E9/L} See Below [facility] [address] Work Phone: Comment on above: Reference Range: 0.8 0 - 3.00 Complete Blood Count + Differential 4.90 {x10E9/L} See Below [facility] [address] Work Phone: Comment on above: Reference Range: 1.6 0 - 5.50 Percent differential counts (%) should be interpreted in the context of the absolute cell counts (cells/L). Complete Blood Count + Differential 2.0 % 0.0 - 6.0 [facility] 204 Work Phone: Complete Blood Count + Differential 0.1 {/100_WBC} [facility] Work Phone: FOLATE, SERUMon 07-22-2021 Folate [Mass/Vol] 9.6 ng/mL Normal >5.0 [facility] Comment on above: Result Comment: Low <3.4 Borderline 3.4-5.0 Normal >5.0 . Patients receiving more than 5 mg/day of biotin may have interference in test results. A sample should be taken no sooner than eight hours after previous dose. Contact the testing laboratory for additional information. Performed By: #### F OLA2 #### [address] [address] Folate, Serumon 07-22-2021 Folate [Mass/Vol] 9.6 ng/mL >5.0 [facility] Work Phone: Comment on above: Low <3.4Borderline 3 .4-5.0Normal >5.0. Patients receiving more than 5 mg/day of biotin may have interference in test results. A sample should be taken no sooner than eight hours after previous dose. Contact the testing laboratory for additional information. IRON + TIBCon 07-22-2021 % SATURATION 51 % High 25 - 45 [facility] Comment on above: Performed By: #### I RONT #### [address] [address] Iron [Mass/Vol] 132 ug/dL Normal 35 - 150 [facility] Comment on above: Performed By: #### I RONT #### [address] [address] TIBC 258 ug/dL Normal 240 - 445 [facility] Comment on above: Performed By: #### I RONT #### [address] [place] [address] Laboratory - Chemistry and C hemistry - challengeon 07-22-2021 Albumin BCP dye [Mass/Vol] 3.8 g/dL 3.4 - 5.0 [facility] [address] Work Phone: ALP [Catalytic activity/Vol] 68 U/L 33 - 136 [facility] [address] Work Phone: ALT With P-5'-P [Catalytic activity/Vol] 21 U/L 10 - 52 [facility] [address] Work Phone: Comment on above: Patients treated wit h Sulfasalazine may generate falsely decreased results for ALT. Anion gap [Moles/Vol] 10 mmol/L 10 - 20 [facility] [address] Work Phone: AST With P-5'-P [Catalytic activity/Vol] 19 U/L 9 - 39 [facility] [address] Work Phone: Bilirubin [Mass/Vol] 0.5 mg/dL 0.0 - 1.2 [facility] [address] Work Phone: Calcium [Mass/Vol] 8.7 mg/dL 8.6 - 10.3 [facility] Work Phone: Chloride [Moles/Vol] 104 mmol/L 98 - 107 [facility] [address] Work Phone: CO2 [Moles/Vol] 29 mmol/L 21 - 32 [facility] [address] Work Phone: Creatinine [Mass/Vol] 1.74 mg/dL above high threshold See Below [facility] [address] Work Phone: Comment on above: Reference Range: 0.5 0 - 1.30 Glucose [Mass/Vol] 136 mg/dL above high threshold 74 - 99 [facility] [address] Work Phone: Iron [Mass/Vol] 132 ug/dL 35 - 150 [facility] [address] Work Phone: Iron binding capacity [Mass/Vol] 258 ug/dL 240 - 445 [facility] [address] Work Phone: Potassium [Moles/Vol] 4.3 mmol/L 3.5 - 5.3 [facility] [address] Work Phone: Protein [Mass/Vol] 6.2 g/dL below low threshold 6.4 - 8.2 [facility] [address] Work Phone: Sodium [Moles/Vol] 139 mmol/L 136 - 145 [facility] [address] Work Phone: Urea nitrogen [Mass/Vol] 25 mg/dL above high threshold 6 - 23 [facility] [address] Work Phone: Methylmalonic Acid, Serumon 07-22-2021 Methylmalonate [Moles/Vol] 170 nmol/L 0-378 [facility] [address] Work Phone: Comment on above: This test was develo ped and its performance characteristicsdetermined by [facility]. It has not been cleared or approvedby the Food and Drug Administration. No Panel Informationon 07-22 46 {mL/min/1.73m2} Abnormal >60 [facility] [address] Work Phone: Comment on above: CALCULATIONS OF CLEMENTINE MATED GFR ARE PERFORMED USING THE MDRD STUDY EQUATION FOR THE IDMS-TRACEABLE CREATININE METHODS. CLIN CHEM 2007;53:766-72 38 {mL/min/1.73m2} Abnormal >60 [facility] [address] Work Phone: 51 % above high threshold 25 - 45 [facility] [address] Work Phone: Triiodothyronine, Level (T3) on 07-22-2021 T3 [Mass/Vol] 88 ng/dL 60 - 200 [facility] [address] Work Phone: VITAMIN B12on 10-07-2021 Cobalamin (Vitamin B12) [Mass/Vol] 352 pg/mL Normal 211 - 911 [facility] Comment on above: Performed By: #### V TB12 #### [facility] [address] [place] [address] Vitamin B12, Serumon 021 Cobalamin (Vitamin B12) [Mass/Vol] 352 pg/mL 211 - 911 -[facility] [address] Work Phone: Surgical Pathologyon 871 Surgical Pathology [id number] [facility] PATHOLOGY AND LABORATORY MEDICINE [address] [place] [address] FINAL SURGICAL PATHOLOGY REPORT [facility] E: TEMO GARRISON .O.B.: 1940 77 Y M [facility] NO.: [id number]: [id number] PROCEDURE 10/04/2018 DATE:SURGEON: ASIYA CASTRO MD [...] theirperformance characteristics determined by the clinical laboratories [facility]. They have not been cleared by the [...] false negativity on decalcified specimens.Professional Performing Location: [address] [address]. DEPARTMENT OF PATHOLOGY AND LABORATORY MEDICINE [place], [place] [address] Normal [facility] Pain Management Consultation Noteon 11-02-2017 Pain Management Consultation Note Normal [facility] ([place]) Vital Signs Date Time Vital Sign Value Performing Clinician Facility 05-30-2023 12:47-0400 Body height 172.7 cm Marlon Chapin MD Work Phone: [facility] 05-30-2023 12:47-0400 Body mass index (BMI) [Ratio] 27.06 kg/m2 Marlon Chapin MD Work Phone: [facility] 05-30-2023 12:47-0400 Body temperature 96.91 [degF] Marlon Chapin MD Work Phone: [facility] 05-30-2023 12:47-0400 Body weight 80.74 kg Marlon Chapin MD Work Phone: [facility] 05-30-2023 12:47-0400 Heart rate 62 /min Marlon Chapin MD Work Phone: [facility] 05-30-2023 12:47-0400 SaO2% (BldA) [Mass fraction] 97 % Marlon Cahpin MD Work Phone: [facility] 05-18-2023 15:22-0400 Body height 172.7 cm Belén Walden PA-C Work Phone: [facility] 05-18-2023 15:22-0400 Body temperature 97.3 [degF] Belén Dolores PA-C Work Phone: [facility] 05-18-2023 15:22-0400 Body weight 81.65 kg Belén Walden PA-C Work Phone: [facility] 05-18-2023 15:22-0400 Diastolic blood pressure 82 mm[Hg] Belén Walden PA-C Work Phone: [facility] 05-18-2023 15:22-0400 Heart rate 104 /min Belén Dolores PA-C Work Phone: [facility] 05-18-2023 15:22-0400 SaO2% (BldA) [Mass fraction] 99 % Belén Dolores PA-C Work Phone: [facility] 05-18-2023 15:22-0400 Systolic blood pressure 136 mm[Hg] Belén Dolores PA-C Work Phone: [facility] 02-27-2023 15:01-0400 Diastolic blood pressure 83 mm[Hg] Monserrat Cross Miedel Work Phone: [facility] A2470 DO Work Phone: 02-27-2023 15:01-0400 Heart rate 84 /min Monserrat Cross Miedel Work Phone: [facility] A2470 DO Work Phone: 02-27-2023 15:01-0400 Respiratory rate 18 /min Monserrat Cross Miedel Work Phone: [facility] A2470 DO Work Phone: 02-27-2023 15:01-0400 Systolic blood pressure 124 mm[Hg] Monserrat Cross Miedel Work Phone: [facility] A2470 DO Work Phone: 11-21-2022 15:02-0500 Body height 173.99 cm Monserrat Cross Miedel Work Phone: [facility] 2300 Work Phone: 11-21-2022 15:02-0500 Body mass index (BMI) [Ratio] 25.92 kg/m2 Monserrat Cross Miedel Work Phone: [facility] 2300 Work Phone: 11-21-2022 15:02-0500 Body surface [...] /min Monserrat Cross Miedel Work Phone: [facility] [address]00 Work Phone: 11-21-2022 15:02-0500 Respiratory rate [...] kg Monserrat Cross Miedel Work Phone: [facility] A2470 DO Work Phone: 12-16-2021 16:12-0500 Diastolic blood pressure 93 mm[Hg] Monserrat Cross Miedel Work Phone: [facility] A2470 DO Work Phone: 12-16-2021 16:12-0500 Heart rate 83 /min Monserrat Cross Miedel Work Phone: [facility] A2470 DO Work Phone: 12-16-2021 16:12-0500 SaO2% (BldA) [Mass fraction] 98 % Monserrat Cross Miedel Work Phone: [facility] A2470 DO Work Phone: 12-16-2021 16:12-0500 Systolic blood pressure 132 mm[Hg] Monserrat Cross Miedel Work Phone: [facility] A2470 DO Work Phone: 12-16-2021 16:12-0500 0 1 Monserrat Domingoedel Work Phone: [facility] A2470 DO Work Phone: Comment on above: [employer] 10-14-2021 09:08-0500 Body height 175.26 cm Monserrat Domingoedel [facility] Phone: [facility] DO Work Phone: 10-14-2021 09:08-0500 Body mass index (BMI) [Ratio] 27.26 kg/m2 Monserrat America Chayoedel Work Phone: [facility] 400 DO Work Phone: 10-14-2021 09:08-0500 Body surface area Derived from formula 2 m2 Monserrat Domingoedel Work Phone: [facility] 400 DO Work Phone: 10-14-2021 09:08-0500 Body temperature 98.6 [degF] Monserrat Cross Miedel Work Phone: [facility] [address] DO Work Phone: 10-14-2021 09:08-0500 Body weight 83.73 kg Monserrat Cross Miedel Work Phone: [facility] DO Work Phone: 10-14-2021 09:08-0500 Diastolic blood pressure 66 mm[Hg] Monserrat Cross Miedel Work Phone: [facility] 400 DO Work Phone: 10-14-2021 09:08-0500 Heart rate 88 /min Monserrat Domingoedel Work Phone: [facility] 400 DO Work Phone: 10-14-2021 09:08-0500 SaO2% (BldA) [Mass fraction] 98 % Monserrat Domingoedel Work Phone: [facility] 400 DO Work Phone: 10-14-2021 09:08-0500 Systolic blood pressure 132 mm[Hg] Monserrat Cross Miedel Work Phone: [facility] 400 DO Work Phone: 09-15-2021 09:07-0500 Body height 175.26 cm Monserrat Cross Miedel [facility] Phone: [facility] DO Work Phone: 09-15-2021 09:07-0500 Body mass index (BMI) [Ratio] 27.5 kg/m2 Monserrat Cross Miedel Work Phone: [facility] [address] DO Work Phone: 09-15-2021 09:07-0500 Body surface area Derived from formula 2 m2 Monserrat Wilson Work Phone: [facility] DO Work Phone: 09-15-2021 09:07-0500 Body temperature 97.7 [degF] Monserrat Domingoedyaw Work Phone: [facility] 400 DO Work Phone: 09-15-2021 09:07-0500 Body weight 84.48 kg Monserrat Wilson Work Phone: [place] [address] DO Work Phone: 09-15-2021 09:07-0500 Diastolic blood pressure 76 mm[Hg] Monserrat Domingoedyaw Work Phone: [place] [address] DO Work Phone: 09-15-2021 09:07-0500 Heart rate 68 /min Monserrat Wilson Work Phone: [place] [address] DO Work Phone: 09-15-2021 09:07-0500 SaO2% (BldA) [Mass fraction] 83 % Monserrat Wilson Work Phone: [place] [address] DO Work Phone: 09-15-2021 09:07-0500 Systolic blood pressure 134 mm[Hg] Monserrat Wilson Work Phone: [place] [address] DO Work Phone: 09-02-2021 10:50-0500 Body height 175.26 cm Monserrat Wilson Work Phone: [facility] [place] Work Phone: 09-02-2021 10:50-0500 Body mass index (BMI) [Ratio] 27.58 kg/m2 Monserrat Domingoedyaw Work Phone: -[facility] -[place] [address] [place] Work Phone: 09-02-2021 10:50-0500 Body surface area Derived from formula 2.01 m2 Monserrat Wilson Work Phone: -[facility]ology -[place] [address] [place] Work Phone: 09-02-2021 10:50-0500 Body temperature 97.5 [degF] Monserrat Wilson Work Phone: -[facility] -[place] [address] [place] Work Phone: 09-02-2021 10:50-0500 Body weight 84.7 kg Monserrat Wilson Work Phone: -[facility] -[place] [address] [place] Work Phone: 09-02-2021 10:50-0500 Heart rate 83 /min Monserrat Wilson Work Phone: -Otolaryngology -[place] [address] [place] Work Phone: 09-02-2021 10:50-0500 SaO2% (BldA) [Mass fraction] 96 % Monserrat Wilson Work Phone: -Otolaryngology -[place] [address] [place] Work Phone: Encounters Encounter Date Encounter Type Care Provider Facility Start: 10-04-2023 End: 10-04-2023 ambulatory MALICK AL Facility:[facility] Start: 10-04-2023 End: 10-04-2023 Subsequent hospital visit by physician Xr [facility] Work Phone: Radiology Comment on above: Acute cough [R05.1] Start: 09-13-2023 Refill Chidi schaffer MD Work Phone: General Surgery Comment on above: Refill Request Start: 06-08-2023 End: 06-08-2023 ambulatory CHIDI BURTON Facility:[facility] Start: 06-08-2023 End: 06-08-2023 Patient encounter procedure Chidi Burton MD Work Phone: General Surgery Comment on above: Bright red blood per rectum (Primary Dx); Hemorrhoids, internal Start: 05-30-2023 ambulatory MARLON Danielson ty:[facility] Start: 05-30-2023 End: 05-30-2023 Office outpatient new 30 minutes Marlon Chapin MD Work Phone: [facility] Comment on above: Other chronic pain Start: 05-18-2023 End: 05-18-2023 ambulatory MONSERRAT WILSON Facility:[facility] Start: 05-18-2023 End: 05-18-2023 Patient encounter procedure Belén Reyes PA-C Work Phone: General Surgery Comment on above: Bright red blood per rectum (Primary Dx); Hemorrhoids, internal Start: 04-11-2023 ambulatory MARLON CHAPIN Facility :[facility] Start: 02-27-2023 Current tobacco non-user cad cap copd pv dm Monserrat Wilson [facility] Work Phone: Start: 02-27-[address] Monserrat Wilson Facility:[id number] Start: 02-17-2023 Refill Roberto Younger i, MD Work Phone: Gastroenterology Comment on above: Refill Request Start: 02-15-2023 Telephone encounter [facility] Provider Vas c[facility] Medicine Comment on above: Appointment Start: 11-21-2022 Current tobacco non-user cad cap copd pv dm Monserrat Wilson Work Phone: MG-Pulm Sleep-[place] 230 Work Phone: Start: 11-21-2022 ambulatory Justin Dial Facilit y:[id number] Start: 11-01-2022 Rx Renewal Monserrat Cruz l Work Phone: SP-Jkazpvipo-Qcrme 204 Work Phone: Start: 10-17-2022 ambulatory Nardine Zakhary Facilit y:[facility] Start: 08-26-2022 Telephone encounter Carol Tranjaciel BANKS.HAKAN Work Phone: Gastroenterology Comment on above: Patient Update; Page ent Question Start: 08-03-2022 Refill Carol Tran APR N.BUFFING WHEEL OPERATOR Work Phone: Gastroenterology Comment on above: Refill Request Start: 06-03-2022 End: 06-03-2022 Subsequent hospital visit by physician Xr [facility] Work Phone: Radiology Comment on above: Lower extremity inju ry, right, initial encounter [S89.91XA] Start: 05-14-2022 ambulatory Wilner Stuart Work Phone: Hematology/Oncology Comment on above: Eliquis Start: 05-12-2022 ambulatory Nardine Zakhary Facilit y:[facility] Sleep Lab [facility] Start: 03-21-2022 ambulatory Nardine Zakhary Facilit y:[id number] Start: 01-05-2022 End: 01-05-2022 ambulatory Carol Tran DIRECTOR OF PERSONNEL.BUFFING WHEEL OPERATOR Work Phone: Gastroenterology Comment on above: History of Small's esophagus (Primary Dx) Start: 01-05-2022 End: 01-05-2022 Telemedicine consultation with patient Carol Tran APRN.HAKAN Work Phone: [facility] Start: 12-16-2021 Current tobacco non-user cad cap copd pv dm Monserrat Wilson Work Phone: MG-Pulm Sleep[facility] A2470 DO Work Phone: Start: 11-19-2021 Telephone encounter Chidi Burton MD Work Phone: General Surgery Comment on above: EGD; Procedure Follo w Up (EGD completed on 12/13/2021) Start: 10-14-2021 Office outpatient visit 15 minutes Monserrat Wilson Work Phone: MP-Pulmonary Medicine-[place] 400 DO Work Phone: Start: 10-01-2021 Chart Update Monserrat Cross Miede l [facility] Work Phone: Start: 09-15-2021 Office consultation new/estab patient 80 min Monserrat E Miedel [facility] Work Phone: Start: 09-15-2021 Office outpatient ne w 60 minutes Monserrat Cross Miedel Work Phone: [facility] 400 DO Work Phone: Start: 09-15-2021 Patient encounter procedure Monserrat America Domingoedel Work Phone: [facility] 400 DO Work Phone: Start: 09-02-2021 Current tobacco non-user cad cap copd pv dm Monserrat E Miedel Work Phone: DD-Jzwfnjduyifzkm-[place]yy[place] [address] [place] Work Phone: Start: 08-30-2021 AUDIT Monserrat E Miede l Work Phone: DQ-Pobakkxip-Weqia 204 Work Phone: Start: 08-27-2021 AUDIT Monserrat E Miede l Work Phone: VY-Heurdnfie-Mycuo 204 Work Phone: Start: 07-28-2021 Chart Update Monserrat E Miede l Work Phone: XG-Temsvpdht-[place]ebet 204 Work Phone: Start: 07-23-2021 Chart Update Monserrat E Miede l Work Phone: RD-Sqyobtzsq-Bmstb 204 Work Phone: Start: 07-16-2021 Phys/qhp telephone evaluation 11-20 min Mnoserrat Tysonyaw Work Phone: OP-Vfphupwmi-Yoscx 204 Work Phone: Start: 06-11-2021 AUDIT Monserrat Tysone l Work Phone: RR-Jcopvsyxs-Oliiu 204 Work Phone: Start: 03-08-2021 AUDIT Monserrat Domingoede l Work Phone: [facility] 204 Work Phone: Start: 12-07-2020 End: 12-07-2020 Patient encounter procedure [facility] Start: 11-12-2020 End: 11-12-2020 Patient encounter procedure [facility] Start: 10-04-2018 Patient encounter procedure [facility] Start: 12-19-2017 Ambulatory [facility] Facility [facility] Start: 10-30-2017 Ambulatory RHINA WALTER [facility] ility:A Procedures Date Procedure Procedure Detail [...] Author Start: 08-18-2029 Tetanus vaccination TETANUS [facility] Start: 08-18-2029 Urine microalbumin profile DTaP,Tdap,Td Vaccine (4 - Td or Tdap) [facility] Start: 06-16-2024 Covid-19 Vaccine ( season) Covid-19 Vaccine () [facility] Start: 06-16-2024 Covid-19 Vaccine () Covid-19 Vaccine () [facility] Start: 06-16-2024 Influenza vaccination Influenz a Vaccine (#1) [facility] Start: 10-16-2023 Advance Directive Discussion Advance Directive Discussion [facility] Start: 06-16-2023 Covid-19 Vaccine () Covid-19 Vaccine () [facility] Start: 06-16-2023 Influenza vaccination [facility] Start: 11-13-2022 COVID-19 VACCINE (6 - Pfizer series) COVID-19 VACCINE (6 - Pfizer series) [facility] Start: 10-16-2022 ADVANCE DIRECTIVE DISCUSSION ADVANCE DIRECTIVE DISCUSSION [facility] Start: 10-16-2022 DEPRESSION ASSESSMENT DEPRESSION ASS ESSMENT [facility] Start: 06-16-2022 Influenza vaccination INFLUENZA (#1) [facility] Start: 11-14-2021 COVID-19 VACCINE (4 - Booster for Pfizer series) COVID-19 VACCINE (4 - Booster for Pfizer series) [facility] Start: 11-01-2021 NPVSLEEP, Provider: Justin Dial, Status: Pen, Time: 4:00 PM NPVSLEEP, Provider: Justin Dial, Status: Pen, Time: 4:00 PM MH-Vlhlyzsmxkccpv-Fog ma MAC1 [address] [place] Work Phone: Start: 11-01-2021 FUVGENERAL, Provider : Malick Weber, Status: Pen, Time: 9:00 AM DIVINA, Provider: Malick Weber, Status: Pen, Time: 9:00 AM -[place] [address] [place] Work Phone: Start: 10-16-2021 ADVANCE DIRECTIVE DISCUSSION ADVANCE DIRECTIVE DISCUSSION [facility] Start: 10-16-2021 DEPRESSION ASSESSMENT DEPRESSION ASS ESSMENT [facility] Start: 10-14-2021 FUV, Provider: Temo Huitron, Status: Pen, Time: 9:00 AM FUV, Provider: Temo Huitron, Status: Pen, Time: 9:00 AM [facility] DO Work Phone: Start: 09-28-2021 PFT, Provider: [facility] PFT ROOM,[id number], Status: Pen, Time: 10:00 AM PFT, Provider: [facility] PFT ROOM,[id number], Status: Pen, Time: 10:00 AM [facility] 400 DO Work Phone: Start: 09-15-2021 NPV, Provider: Temo Huitron, Status: Pen, Time: 9:00 AM NPV, Provider: Temo Huitron, Status: Pen, Time: 9:00 AM [facility] Work Phone: Start: 09-02-2021 NPV, Provider: Florina Segovia, Status: Pen, Time: 10:40 AM NPV, Provider: Florina Segovia, Status: Pen, Time: 10:40 AM [facility] 204 Work Phone: Start: 08-05-2021 NPV, Provider: Florina Segovia, Status: Pen, Time: 10:20 AM NPV, Provider: Florina Segovia, Status: Pen, Time: 10:20 AM [facility] Work Phone: Start: 06-16-2021 Influenza vaccination INFLUENZA (#1) [facility] Start: 06-01-2021 SERUM CREATININE SERUM CREATININE Cl [facility] Start: 11-27-2020 Urine microalbumin profile DTAP,TDAP,TD (3 - Td or Tdap) [facility] Start: 10-13-2020 Sleep std airflow hr t rate&o2 sat effort unatt Home Sleep Apnea Test FD-Bckmxpuda-Eayyy 204 Work Phone: Start: 04-28-2020 Hemoglobin A1c measurement HbA1C [facility] Start: 04-28-2020 Hemoglobin A1c/Hemoglobin.total in Blood HBA1C [facility] Start: 02-28-2020 Glaucoma screening Dilated Retinal E xam [facility] Start: 02-28-2020 Hepatitis C antibody , confirmatory test DILATED RETINAL EXAM [facility] Start: 07-03-2019 Adult depression screening assessment DEPRESSION SCREENING [facility] Start: 01-25-2019 ANNUAL PCP TEAM CHRONIC DISEASE VISIT ANNUAL PCP TEAM CHRONIC DISEASE VISIT [facility] Start: 12-07-2018 Hepatitis B screening URINE ALBUMIN:CREATININE RATIO [facility] Start: 09-22-2018 Hepatitis B surface antibody level LDL CHOLESTEROL [facility] Start: 06-01-2018 HEMOGLOBIN/HEMATOCRIT HEMOGLOBIN/HEM ATOCRIT [facility] Start: 08-24-2017 End: 08-24-2017 Appointment Appointment [facility] Work Phone: Start: 2016 RSV Vaccine (1 - 1-dose 75+ series) RSV Vaccine (1 - 1-dose 75+ series) [facility] Start: 2001 Hepatitis B Vaccine (1 of 3 - Risk 3-dose series) Hepatitis B Vaccine (1 of 3 - Risk 3-dose series) [facility] Start: 2001 RSV Vaccine (1 - 1-dose 60+ series) RSV Vaccine (1 - 1-dose 60+ series) [facility] Start: 1991 SHINGRIX VACCINE (1 of 2) SHINGRIX VACCINE (1 of 2) [facility] Start: 1986 Screening for malignant neoplasm of colon COLORECTAL CANCER SCREENING DISCUSSION [facility] Start: 1959 Anxiety Screening Anxiety Screening [facility] Start: 1959 BP CONTROLLED (<130/80) BP CONTROLLED (<130/80) [facility] Start: 1959 Depression Screening Depression Scre ening [facility] Start: 1951 3 comp foot exam completed DIABETIC FOOT EXAM [facility] Start: 1951 Diabetic foot examination Diabetic Foot Exam [facility] Start: 06-08-1942 COVID-19 VACCINE (#1) COVID-19 VACCI NE (#1) [facility] NEGATED: Highlighted row has been ruled out! Planned Goals not documented FN-Pgktiaftq-Iafit 204 Work Phone: Immunizations Immunization Date Immunization Notes Care Provider Beto stubbs 09-29-2022 Pfizer COVID-19 Vac Bivalent 30 MCG/0.3ML Intramuscular Suspension Monserrat E Miedel Work Phone: [facility]-Pul[facility] 2300 Work Phone: 07-05-2022 Fluad Quadrivalent 0 .5 ML Intramuscular Prefilled Syringe Monserrat E Miedel Work Phone: [facility] [facility]00 Work Phone: 07-05-2022 influenza virus vacc ine, unspecified formulation Marlon Chapin MD Work Phone: [facility] 03-07-2022 Comirnaty 30 MCG/0.3 ML Intramuscular Suspension Monserrat E Miedel Work Phone: OC-Sdhvbvlul-Peyzc 204 Work Phone: 08-17-2021 zoster vaccine recombinant Monserrat E Miedel Work Phone: [facility] A2470 DO Work Phone: 07-15-2021 Pfizer-BioNTech COVI D-19 Vacc 30 MCG/0.3ML Intramuscular Suspension Monserrat E Miedel Work Phone: [facility] [place] [address] [place] Work Phone: Comment on above: Series: 04-24-2021 zoster vaccine recombinant Monserrat E Miedel Work Phone: MG-Pulm [facility] A2470 DO Work Phone: 12-07-2020 Pfizer-BioNTech COVI D-19 Vacc 30 MCG/0.3ML Intramuscular Suspension Monserrat E Miedel Work Phone: [facility] 400 DO Work Phone: Comment on above: Series: 11-12-2020 Pfizer-BioNTech COVI D-19 Vacc 30 MCG/0.3ML Intramuscular Suspension Monserrat E Miedel Work Phone: [facility] 400 [place] Work Phone: Comment on above: Series: 07-16-2020 Fluad Quadrivalent 0 .5 ML Intramuscular Prefilled Syringe Monserrat Domingoedel Work Phone: MG-Pulm [facility] A2470 DO Work Phone: 08-19-2019 influenza, high dose seasonal, preservative-free Monserrat E Miedel Work [facility]: [facility] Work Phone: 08-18-2019 tetanus toxoid, redu christian diphtheria toxoid, and acellular pertussis vaccine, adsorbed Monserrat America Miedel Work Phone: [facility] A2510 DO Work Phone: 07-25-2016 influenza, high dose seasonal, preservative-free Monserrat E Miedel Work Phone: [facility] 08-06-2015 influenza, seasonal, injectable Monserrat E Miedel Work Phone: [facility] 11-14-2014 pneumococcal conjuga te vaccine, 13 valent Monserrat E Miedel Work Phone: [facility] 08-01-2013 influenza virus vacc ine, unspecified formulation Chidi Burton MD Work Phone: [facility] 07-19-2012 influenza virus vacc ine, unspecified formulation Chidi Burton MD Work Phone: [facility] 08-18-2011 influenza virus vacc ine, unspecified formulation Chidi Burton MD Work Phone: [facility] 11-27-2010 tetanus toxoid, redu christian diphtheria toxoid, and acellular pertussis vaccine, adsorbed Chidi Burton MD Work Phone: [facility] 08-19-2008 influenza virus vacc ine, unspecified formulation Chidi Burton MD Work Phone: [facility] Work Phone: 08-19-2008 pneumococcal polysaccharide vaccine, 23 valent Chidi Burton MD Work Phone: [facility] Work Phone: 08-20-2007 influenza virus vacc ine, whole virus Monserratlizz Wilson Work Phone: [facility] A2470 DO Work Phone: 08-14-2007 influenza virus vacc ine, unspecified formulation Chidi Burton MD Work Phone: [facility] Work Phone: 09-01-2006 influenza virus vacc ine, unspecified formulation Chidi Burton MD Work Phone: [facility] Work Phone: 08-18-2005 influenza virus vacc ine, unspecified formulation Chidi Burton MD Work Phone: [facility] 09-28-2004 influenza virus vacc ine, unspecified formulation Chidi Burton MD Work Phone: [facility] Work Phone: 09-15-2003 diphtheria and tetan us toxoids, adsorbed for pediatric use Chidi Burton MD Work Phone: [facility] Work Phone: 07-16-1999 pneumococcal polysaccharide vaccine, 23 valent Chidi Burton MD Work Phone: [facility] Work Phone: influenza virus vacc ine, unspecified formulation Monserrat Wilson Work Phone: [facility] 400 DO Work Phone: Comment on above: Approx 16Jul2021 Ser ies: Payers Date Payer Category Payer Medicare AETNA MEDICARE A ETNA MEDICARE PPO [id number] 2021-Present [phone] [address] [place] [address] PPO [id number] 2021 Medicare AETNA MEDICARE A ETNA MEDICARE PPO [id number] 2021-Present [phone] [address] [place] [address] PPO [id number] 2017 Private Health Insurance 2013 Medicare [id number] 2013 Private Health Insurance [id number] 1941 Unknown [id number] 1941 Unknown [id number] 51 1941 Unknown [id number] 51 1941 Unknown [id number] 56 1941 Unknown [id number] 56 1941 Unknown [id number] 56 1941 Unknown [id number] 56 1941 Unknown [id number] 56 1941 Unknown [id number] 94 1941 Unknown [id number] 94 Medicare [id number] Unknown Social History Date Type Detail Facility Start: 08-10-2020 End: 09-20-2020 Never a smoker Never a smoker [facility] Comment on above: quit 1975; Start: 06-03-2022 Tobacco smoking status NHIS Ex-smoker [facility] Start: 10-16-1955 End: 10-16-1975 History of tobacco use Current smoker [facility] Start: 10-16-1955 End: 10-16-1975 History of tobacco use Cigarette Smoker [facility] Start: 08-10-2020 End: 06-03-2022 Alcohol intake Current drinker of alcohol (finding) [facility] Start: 08-06-2020 History SDOH Alcohol Comment 2-3 drinks per day [facility] Start: 06-01-2020 End: 06-03-2022 Tobacco Comment QUIT 1975 [facility] Start: 1940 Sex Assigned At Not on file [facility] Start: 11-13-2021 End: 06-03-2022 Exposure to SARS-CoV-2 (event) Not sure [facility] Start: 04-01-2020 End: 06-03-2022 Tobacco use and exposure Smokeless tobacco non-user [facility] Start: 09-20-2020 End: 05-18-2023 Tobacco use panel [facility] Adult Depression Screening Assessment 0 [facility] Start: 05-06-2019 Gender identity Identifies as male gender (finding) [facility] Start: 04-01-2020 Tobacco smoking status PAIS Occasional tobacco smoker [facility] History of tobacco use Cigar Smoker [facility] How often to you hav e a drink containing alcohol? 4 or more times a week [facility] Start: 04-01-2020 Tobacco Comment occas [facility] Start: 04-01-2020 Alcohol Comment states everyday . [facility] NEGATED: Highlighted row - - SY-Syrygsgoi-Eagwn 204 Work Phone: Medical Equipment Procedure Code Equipment Code Equipment Origin al Text Equipment Identifier Dates Generator Implantable Pulse - [id number] Start: 12-02-2016 Lead Upper Airwa y Stimulation - [id number] Start: 12-02-2016 Lead Respiratory Sensing - [id number] Start: 12-02-2016 [id number] Start: 11-23-2018 Comment on above: USE ONE STRIP TO NAIN CK GLUCOSE ONCE DAILY Use as directed to t est glucose 3 times weekly. DX: E11.9 Functional Status Date Assessment Result Facility NEGATED: Highlighted row Functional performance Functional status health issues are not documented Disease ZR-Ahgpuvcgr-Ryblo 204 Work Phone: Mental Status Date Assessment Result Facility NEGATED: Highlighted row Cognitive function [Interpretation] Cognitive status health issues are not documented Disease JV-Lqhdaldvy-Ygzmn 204 Work Phone: Clinical Notes 12-17-2014 to 10-04-2023 Telephone Encounter - Dayanara Mandujano RN - 09/13/2023 10:15 AM Chidi Salazar MD - 06/08/2023 12:21 PM EDTPatient Urszula Bairse LPN - 06/08/2023 12:09 PM EDT Note Date & Type Note Facility 10-04-2023 Note HNO ID: [id number] Author: Clair Asher RT(R) Service: ? Author Type: Child Guidance Counselor Type: Progress Notes Filed: 10/04/2023 2:22 PM [...] RT Crystal(R) October 04, 2023 2:15 PM [facility] 10-04-2023 Note HNO ID: [id number] Author: Teresa Rudd PA Service: ? Author Type: Physician Sandwich Wrapper Type: Progress Notes Filed: 10/04/2023 3:04 PM [...] Dr. Berry Chronic kidney disease, stage 3 ([facility]) Seeing Dr. Moss DDD (degenerative disc disease), cervical DDD (degenerative disc disease), lumbar Seeing Dr. Thayer Diarrhea Diverticulosis of colon (without mention of hemorrhage) DVT (deep venous thrombosis) ([facility]) 08/06/2020 Essential tremor External hemorrhoids [...] complication, without long-term current use of insulin ([facility]) 06/07/[address] Owens Uveitis [...] 600 mg by mouth twice daily. lancets ([address] LANCETS) 30 gauge misc Use as directed to test glucose 3 times weekly. DX: E11.9 dupilumab (DUPIXENT SUBCUTANEOUS) Inject subcutaneously as needed (taking every three weeks). 08/17/2021 reported taking every 3 weeks cyanocobalamin, vitamin B-12, (VITAMIN B-12 INJECTION) by INJECTION(UNSPECIFIED PARENTERAL ROUTES) route once every month. blood sugar diagnostic ([facility]) test strip USE ONE STRIP TO CHECK GLUCOSE ONCE DAILY losartan (COZAAR) 25 mg tablet TAKE 1 TABLET DAILY ketoconazole (NIZORAL) 2 % shampoo Apply 1 application to affected area once daily as needed. atorvastatin (LIPITOR) 20 mg tablet Take 1 tablet by mouth once daily. Blood-Glucose Meter ([employer] VERIO SYSTEM) misc Use as directed. Cholecalciferol, Vitamin D3, 2,000 unit ORAL Cap Take 2,000 Units by mouth. ascorbic acid(VITAMIN C 500 MG TAB) Take one (1) tablet twice daily. FAMILY HISTORY Problem Relation Age of Onset Diabetes Father other (down'ssyndrome) Brother Hypertension Mother other (Other) Mother Acute Renal Failure/AAA other (Aortic aneurysm) Mother Ischemic Heart Disease Brother 58 [place] Alcohol/Drug Brother Breast Cancer Sister Diabetes Maternal Grandmother Rheumatologic disease Maternal Grandfather Anesthesia Problems No Family History Social History Tobacco Use Smoking status: Former Packs/day: 0.50 Years: 20.00 Additional pack years: 0.00 Total pack years: 10.00 Types: Cigarettes Quit date: 10/16/1975 Years since quittin.0 Smokeless tobacco: Never Tobacco comments: QUIT 1975 Vapi (more content not included)... [facility] 09-13-2023 Miscellaneous Notes Physician: Dr. Burton Call from patient requesting refill. Please E-Scribe 30-day supply. Last OV: 06/08/[address] Burton Future OV: None Scheduled Requested Prescriptions Pending Prescriptions Disp Refills omeprazole (PRILOSEC) 40 mg capsule 30 capsule 0 Sig: Take 1 capsule by mouth once daily. Pharmacy Name: [facility] Phone #: Dayanara Mandujano RN documented in this encounter [facility] 06-08-2023 Note HNO ID: [id number] Author: Chidi Burton MD Service: ? Author Type: Physician Type: Progress Notes Filed: 06/08/2023 12:24 PM Note Text: FOLLOW UP VISIT - HEMORRHOID BANDING NAME: Temo Rajput [facility] NO.: [id number] DATE OF SERVICE: 06/08/2023 : 1940 REFERRING PHYSICIAN: Malick Al MD, MD Teom is a patient I am following for [...] month if persistent bleeding. Chidi Burton MD [facility] 06-08-2023 History of Present illness Narrative FOLLOW UP VISIT - HEMORRHOID BANDING NAME: Temo Rajput [facility] NO.: [id number] DATE OF SERVICE: 06/08/2023 : 1940 REFERRING [...] Chidi Burton MD documented in this encounter [facility] 06-08-2023 Instructions Urszula Quinn LPN - [...] feel free to call our office at [phone] and ask to be transferred to General Surgery. Thank you for choosing [facility] - General Surgery. documented in this encounter [facility] 06-08-2023 Nurse Note UNIVERSAL PROTOCOL / [...] Urszula Quinn LPN documented in this encounter [facility] 05-30-2023 History of Present illness Narrative [...] for condition of interest EMG No Physical therapy/care coordinator Yes Occupational therapy No Acupuncture Yes, w/o [...] Cap DR Particles capsule DR Dupilumab (DUPIXENT MI) Inject under the skin every 14 days. [...] coordination of care. documented in this encounter [facility] 05-30-2023 Instructions Marlon Chapin MD - 05/30/2023 1:00 PM EDT The device we talked about is called a Theracane. documented in this encounter [facility] 05-18-2023 Note HNO ID: [id number] Author: Belén Reyes PA-C Service: ? Author Type: Physician Sandwich Wrapper Type: Progress Notes Filed: 05/29/2023 7:56 AM [...] mention of hemorrhage) DVT (deep venous thrombosis) ([facility]) 08/06/2020 Essential tremor External hemorrhoids [...] complication, without long-term current use of insulin ([facility]) 06/07/[address] Owens Uveitis [...] 600 mg by mouth twice daily. lancets ([employer] DELICA LANCETS) 30 gauge [facility] Use as directed to test glucose 3 times weekly. DX: E11.9 dupilumab (DUPIXENT SUBCUTANEOUS) Inject subcutaneously as needed (taking every three weeks). 08/17/2021 reported taking every 3 weeks cyanocobalamin, vitamin B-12, (VITAMIN B-12 INJECTION) by INJECTION(UNSPECIFIED PARENTERAL ROUTES) route once every month. blood sugar diagnostic ([employer]) test strip USE ONE STRIP TO CHECK GLUCOSE ONCE DAILY losartan (COZAAR) 25 mg tablet TAKE 1 TABLET DAILY ketoconazole (NIZORAL) 2 % shampoo Apply 1 application to affected area once daily as needed. atorvastatin (LIPITOR) 20 mg tablet Take 1 tablet by mouth once daily. Blood-Glucose Meter ([employer] VERIO SYSTEM) [facility] Use as directed. Cholecalciferol, Vitamin D3, 2,000 unit ORAL Cap Take 2,000 Units by mouth. ascorbic acid(VITAMIN C 500 MG TAB) Take one (1) tablet twice daily. No current facility-administered medications for this visit. ALLERGIES: Flomax [Tamsulosin], Celecoxib, Meloxicam, Mirapex [Pramipexole], Uroxatral [Alfuzosin H (more content not included)... [facility] 05-18-2023 Nurse Note REVIEW OF SYSTEMS: [...] Jena Webb RN documented in this encounter [facility] 05-18-2023 History of Present illness Narrative [...] Dr. Berry Chronic kidney disease, stage 3 ([facility]) Seeing Dr. Moss DDD (degenerative disc disease), cervical DDD (degenerative disc disease), lumbar Seeing Dr. Thayer Diarrhea Diverticulosis of colon (without mention of hemorrhage) DVT (deep venous thrombosis) ([facility]) 08/06/2020 Essential tremor External hemorrhoids [...] complication, without long-term current use of insulin ([facility]) 06/07/[address] Owens Uveitis [...] 600 mg by mouth twice daily. lancets ([address] LANCETS) 30 gauge misc Use as directed to test glucose 3 times weekly. DX: E11.9 dupilumab (DUPIXENT SUBCUTANEOUS) Inject subcutaneously as needed (taking every three weeks). 08/17/2021 reported taking every 3 weeks cyanocobalamin, vitamin B-12, (VITAMIN B-12 INJECTION) by INJECTION(UNSPECIFIED PARENTERAL ROUTES) route once every month. blood sugar diagnostic ([employer]) test strip USE ONE STRIP TO CHECK GLUCOSE ONCE DAILY losartan (COZAAR) 25 mg tablet TAKE 1 TABLET DAILY ketoconazole (NIZORAL) 2 % shampoo Apply 1 application to affected area once daily as needed. atorvastatin (LIPITOR) 20 mg tablet Take 1 tablet by mouth once daily. Blood-Glucose Meter ([employer]ise VERIO SYSTEM) misc Use as directed. Cholecalciferol, [...] aneurysm) Mother Ischemic Heart Disease Brother 58 [place] Alcohol/Drug Brother Breast Cancer Sister Diabetes Maternal [...] Belén Reyes PA-C documented in this encounter [facility] 02-17-[address] Baron, Patient has never seen you in the office, nor have you done a procedure on him. Not sure why this refill is being sent to you. Please advise. Robyn Duke RN documented in this encounter [facility] 02-15-2023 Miscellaneous Notes First attempt to reach patient. No VM left. Katherine Gao February 15, 2023 6:30 PM documented in this encounter [facility] 09-16-2022 Miscellaneous Notes Patient phones requesting refills as follows: Requested Prescriptions Pending Prescriptions Disp Refills omeprazole (PRILOSEC) 40 mg capsule [Pharmacy Med Name: OMEPRAZOLE DR CAPS 40MG] 90 capsule 0 Sig: TAKE 1 CAPSULE DAILY Please review and advise. Julia Ramirez Ma documented in this encounter [facility] 08-29-2022 Miscellaneous Notes Returned patient's call [...] to no relief. Patient uses [facility] in [place]. Please advise and call patient. documented in this encounter [facility] 06-03-2022 History of Present illness Narrative [...] 2022 10:01 AM documented in this encounter [facility] 01-05-2022 History of Present illness Narrative [...] Dr. Berry Chronic kidney disease, stage 3 ([facility]) Seeing Dr. Moss DDD (degenerative disc disease), cervical DDD (degenerative disc disease), lumbar Seeing Dr. Thayer Diarrhea Diverticulosis of colon (without mention of hemorrhage) DVT (deep venous thrombosis) ([facility]) 08/06/2020 Essential tremor External hemorrhoids [...] complication, without long-term current use of insulin ([facility]) 06/07/[address] Owens Uveitis [...] aneurysm) Mother Ischemic Heart Disease Brother 58 [place] Alcohol/Drug Brother Breast Cancer Sister Diabetes Maternal [...] mg by mouth daily at bedtime. lancets ([employer] DELICA LANCETS) 30 gauge misc Use as directed to test glucose 3 times weekly. DX: E11.9 100 Each 3 cyanocobalamin, vitamin B-12, (VITAMIN B-12 INJECTION) by INJECTION(UNSPECIFIED PARENTERAL ROUTES) route once every month. sitaGLIPtin (JANUVIA) 50 mg tablet Take 1 tablet by mouth once daily. 90 tablet 3 blood sugar diagnostic ([employer] VERIO) test strip USE ONE STRIP TO [...] once daily. 90 tablet 1 Blood-Glucose Meter ([employer] VERIO SYSTEM) [facility] Use as directed. 1 Each 0 Cholecalciferol, [...] with more than 50% of the total xehn-kr-bjig time of the visit in counseling / coordination of care. I have confirmed and edited as necessary, the PFSH and ROS obtained by others. Carol Tran APRN.CNP January 05, 2022 9:48 AM documented in this encounter [facility] 01-04-2022 Miscellaneous Notes Patient scheduled for [...] EGD is still scheduled on 12/13 at [place]? He states he has not received any instructions and wants to make sure he does not miss anything. Advised patient general surgery staff would contact him when they return to the office on 11/22/21. He verbalized understanding. documented in this encounter [facility] 10-20-2021 History of Present illness Narrative [...] denies a dyspnea with daily activities. -[facility] [address] DO Work Phone: 10-18-2021 History of Present [...] He denies a dyspnea with daily activities. -[facility] 300 Work [...] denies a dyspnea with daily activities. [facility] [address] DO Work Phone: 09-02-2021 History of [...] a inspire inserted in 2017 at the [facility]. 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 -[facility] m2fx DO Work Phone: 09-02-2021 History of Present [...] a inspire inserted in 2017 at the [facility]. 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 -[facility] m2fx DO Work Phone: 07-20-2021 History of Present [...] a sleep study in [address] [facility]. The patient's [place] Sleepiness Scale score today was 4. The [...] a vengeance and wake him from sleep. [facility] Work Phone: 07-16-2021 History of Present illness Narrative Mr. TEMO GARRISON is presenting for inspire eval- existing implantThe patient was kindly referred by Malick Baird personally reviewed the referring provider's note dated 07/16/21Multifactorial sleep issues- rosita, rlsVery restless sleeperWas started on RequipCurrently using OAT for OSAHas inspire [facility] (up to 20 min SL) until 830Baseline AHI 55 (2013 study [facility])Study with OAT in place showed AHI 24.4Noted [...] on requip dose is being adjusted upwards [address]-Qmzvlulcqkarbp[address] [place] Work Phone: 07-16-2021 History of Present illness Narrative Mr. TEMO GARRISON is presenting for inspire eval- existing implantThe patient was kindly referred by Malick Baird personally reviewed the referring provider's note dated 07/16/21Multifactorial sleep issues- rosita, rlsVery restless sleeperWas started on RequipCurrently using OAT for OSAHas inspire [facility] (up to 20 min SL) until 830Baseline AHI 55 (2013 study [facility])Study with OAT in place showed AHI 24.4Noted [...] PLAN TO USE WITH OAT IN PLACE BW-Kmfszakiusrjtf-Gkqrw MAC1 [address] [place] Work Phone: 07-16-2021 History [...] a sleep study in [address] [facility]. The patient's [place] Sleepiness Scale score today was 4. The [...] a vengeance and wake him from sleep. [facility]-Qzxmrxnpv-[address]ult [address] Work Phone: 11-25-2016 History of Past [...] of this encounter (statuses as of 01/04/2022) [facility] History of Past illness Narrative* Problem [...] of this encounter (statuses as of 01/05/2022) [facility] History of Past illness Narrative* Problem [...] of this encounter (statuses as of 05/15/2022) [facility] History of Past illness Narrative* Problem [...] of this encounter (statuses as of 08/30/2022) [facility] History of Past illness Narrative* Problem [...] of this encounter (statuses as of 09/19/2022) [facility] History of Past illness Narrative* Problem [...] of this encounter (statuses as of 02/16/2023) [facility] History of Past illness Narrative* Problem [...] of this encounter (statuses as of 02/17/2023) [facility] History of Past illness Narrative* Problem [...] of this encounter (statuses as of 05/29/2023) [facility] History of Past illness Narrative* Problem [...] of this encounter (statuses as of 06/08/2023) [facility] History of Past illness Narrative* Problem [...] of this encounter (statuses as of 09/14/2023) [facility] History of Present illness Narrative* From a previous note from Dr. 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 * Naps: Patient [...] not act out of dream. No nightmares. [facility] [address] DO Work Phone: [phone]) 788-593302-07-2016 History of Present illness Narrative* From a previous note from Dr. 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 * Naps: Patient [...] act out of dream. No nightmares. [facility] [address] Work Phone: [phone] 208-888403-27-2015 History of Present illness Narrative* From a previous note from Dr. 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 * Naps: Patient [...] act out of dream. No nightmares. -[facility] A[address] DO Work Phone: [phone]) 351-312803-04-2015 History of Present illness Narrative* Mr. 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 * Naps: Patient [...] act out of dream. No nightmares. -[facility] A[address] DO Work Phone: chief complaint Narrative [...] * Virtual visit. Follow up on sleep. HT-Uzlfyjihk-Bjgbg [address] Work Phone: chief complaint Narrative - [...] * Virtual visit. Follow up on sleep. [facility] Work Phone: chief complaint Narrative - Reported* [...] * Virtual visit. Follow up on sleep. [facility] Work Phone: chief complaint Narrative - Reported* TEMO GARRISON is here for an initial evaluation. * Reason for Visit: Nocturnal Hypoxemia. * Appointment requested by: Dr. Weber; PCP: Dr. Wilson. [facility] [address] DO Work Phone: chief complaint Narrative - Reported* TEMO GARRISON is here for an initial evaluation. * Reason for Visit: Nocturnal Hypoxemia. * Appointment requested by: Dr. Weber; PCP: Dr. Wilson. -[facility] [address] DO Work Phone: chief complaint Narrative - Reported* TEMO GARRISON is here for an initial evaluation. * Reason for Visit: Nocturnal Hypoxemia. * Appointment requested by: Dr. Weber; PCP: Dr. Wilson. [facility] MedicineK[facility] [facility] [address] [place] Work Phone: Evaluation note* Diagnosis History of Small's esophagus- Primary [facility] Diagnosis Bright red blood per rectum- Primary Hemorrhage of rectum and anus Hemorrhoids, internal Internal hemorrhoids without mention of complication [facility]* Diagnosis Other chronic pain [facility] Diagnosis Bright red blood per rectum- Primary Hemorrhage of rectum and anus Hemorrhoids, internal Internal hemorrhoids without mention of complication [facility]* Diagnosis Preop examination- Primary Preoperative examination, [...] apnea Acute cough [facility] Narrative* The patient [...] [facility] The patient's [place] Sleepiness Scale score today was 4. The [...] a vengeance and wake him from sleep. [facility] Work Phone: Reason for visit Narrative* Diagnostic Procedure Only (Urgent) - Closed Specialty Diagnoses / Procedures Referred By Contac t Referred To Contact XR IMAGING Diagnoses Lower extremity injury, right, initial encounter Procedures XR ANKLE GENERAL 3V AP/LAT/OBL RIGHT RADEX ANKLE COMPLETE MINIMUM 3 VIEWS Joe Goodwin, JOCELYN.BUFFING WHEEL OPERATOR [address] [place] [address] [place] [address] Referral ID Status Reason Start Date Expiration Date V isits Requested Visits Authorized [id number] Closed Auto-Generate d Referral 06/03/2022 07/03/2023 1 1 [facility] Summary Purpose Family History Unknown Family [...] Documents on File Type Date Recorded 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 Advance Directive(s) 12/13/2021 9:35 AM Advance Directive(s) 08/10/2020 7:21 AM M dorian infusion Advance Directive(s) 08/10/2020 7:20 AM Advance Directive(s) 08/03/2020 1:49 PM Advance Directive(s) 11/23/2016 9:39 AM Advance Directive(s) 11/22/2016 9:26 AM Advance Directive(s) 05/24/2016 1:39 PM Advance Directive(s) 12/13/2011 12:00 AM Advance Directive(s) 12/01/2006 12:00 AM Documents on File Type Date Recorded 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 Advance Directive(s) 08/10/2020 7:20 AM Advance Directive(s) 12/13/2011 Advance Directive(s) 12/01/2006 Documents on File Type Date Recorded 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 DATE CREATED AUTHOR AUTHOR'S ORGANIZ ATION 12/15/2021 [facility] DATE CREATED AUTHOR AUTHOR'S ORGANIZ ATION 02/28/2023 [facility] DATE CREATED AUTHOR AUTHOR'S ORGANIZ ATION 02/28/2023 [facility] DATE CREATED AUTHOR AUTHOR'S ORGANIZ ATION 06/03/2023 [facility] DATE CREATED AUTHOR AUTHOR'S ORGANIZ ATION 10/06/2023 [facility] Reason for Visit (unrecogniz ed section [...] chronic pain Malick Al MD [address] [id number] [facility] [address] [place] [address] Referral ID Status Reason Start Date Expiration Date V isits Requested Visits Authorized [id number] New Request 04/11/2023 05/05/2024 1 1 Reason Comments Procedure BANDING Reason Onset Date Comments Refill Request 09/13/2023 Source Comments (unrecognize d section and content) In the event this informatio n is protected by the Federal Confidentiality of Alcohol and Drug Abuse Patient Records regulations: The Federal rules restrict any use of the information to criminally investigate or prosecute any alcohol or drug abuse patient.[facility] Hospital[facility] the event this information is protected by the Federal Confidentiality of Alcohol and Drug Abuse Patient Records regulations: The Federal rules restrict any use of the information to criminally investigate or prosecute any alcohol or drug abuse patient.[facility] HospitalIn the event this information is protected by the Federal Confidentiality of Alcohol and Drug Abuse Patient Records regulations: The Federal rules restrict any use of the information to criminally investigate or prosecute any alcohol or drug abuse patient.[facility] HospitalIn the event this information is protected by the Federal Confidentiality of Alcohol and Drug Abuse Patient Records regulations: The Federal rules restrict any use of the information to criminally investigate or prosecute any alcohol or drug abuse patient.[facility] HospitalIn the event this information is protected by the Federal Confidentiality of Alcohol and Drug Abuse Patient Records regulations: The Federal rules restrict any use of the information to criminally investigate or prosecute any alcohol or drug abuse patient.[facility] HospitalIn the event this information is protected by the Federal Confidentiality of Alcohol and Drug Abuse Patient Records regulations: The Federal rules restrict any use of the information to criminally investigate or prosecute any alcohol or drug abuse patient.[facility] HospitalIn the event this information is protected by the Federal Confidentiality of Alcohol and Drug Abuse Patient Records regulations: The Federal rules restrict any use of the information to criminally investigate or prosecute any alcohol or drug abuse patient.[facility] HospitalIn the event this information is protected by the Federal Confidentiality of Alcohol and Drug Abuse Patient Records regulations: The Federal rules restrict any use of the information to criminally investigate or prosecute any alcohol or drug abuse patient.[facility] HospitalIn the event this information is protected by the Federal Confidentiality of Alcohol and Drug Abuse Patient Records regulations: The Federal rules restrict any use of the information to criminally investigate or prosecute any alcohol or drug abuse patient.[facility] HospitalIn the event this information is protected by the Federal Confidentiality of Alcohol and Drug Abuse Patient Records regulations: The Federal rules restrict any use of the information to criminally investigate or prosecute any alcohol or drug abuse patient.[facility] HospitalIn the event this information is protected by the Federal Confidentiality of Alcohol and Drug Abuse Patient Records regulations: The Federal rules restrict any use of the information to criminally investigate or prosecute any alcohol or drug abuse patient.[facility] HospitalIn the event this information is protected by the Federal Confidentiality of Alcohol and Drug Abuse Patient Records regulations: The Federal rules restrict any use of the information to criminally investigate or prosecute any alcohol or drug abuse patient.[facility] Teams (unrecognized sec tion and content) 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 Start Date End Date Monserrat Wilson [address] [place] [address] PCP - General Family Practice 06/26/18 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 Start Date End Date Monserrat Wilson [address] [place] [address] PCP - General Family Practice 06/26/18 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 Start Date End Date Monserrat Wilson [address] [place] [address] PCP - General Family Practice 06/26/18 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 Start Date End Date Monserrat Wilson [address] [place] [address] PCP - General Family Medicine 06/26/18 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 Start Date End Date Monserrat Wilson [address] [place] [address] PCP - General Family Medicine 06/26/18 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 Start Date End Date Monserrat Wilson MD [address] [place], [place] [id number] PCP - General Family Medicine 06/26/18 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 Start Date End Date Monserrat Wilson MD [address] [place], [place] [id number] PCP - General Family Medicine 06/26/18 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 Start Date End Date Malick Al [address] [place] [address] PCP - General Family Medicine 05/18/23 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 Start Date End Date Malick Al MD [address] [place] [address] PCP - General Family Medicine 05/18/23 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 [employer] [facility]. provides no warranty or guarantee of the accuracy or completeness of information in this document.
[2024-08-09 12:28] LABS: Hematocrit 31.7 % (40-54); Hemoglobin 9.8 g/dL (13.0-16.5); Mean Corp Hgb Conc 30.9 g/dL (32-36); Mean Corpuscular Volume 100.3 fL (80-94); Mean Platelet Vol. 10.6 fl (6.2-12.0); Platelet Count 554 K/mm3 (150-450); RBC Distribution Width CV 13.7 % (11.6-14.6); RBC Distribution Width SD 50.6 fl (35.1-43.9); Red Blood Count 3.16 M/mm3 (4.6-6.2); White Blood Count 12.5 K/mm3 (4.4-11.0)
[2024-08-09 13:08] LABS: Anion Gap 8 (5-15); BUN 24 mg/dL (7-18); BUN/Creat Ratio 11.8 RATIO (10-20); Chloride 108 mmol/L (98-107); Creatinine, Serum 2.04 mg/dL (0.70-1.30); EST Glomerular Filtration Rate 33 mL/min (>60); Est Glom Filt Rate - Afr Amer 40 mL/min (>60); Glucose 130 mg/dL (74-106); Sodium Level 140 mmol/L (136-145)
== END | disposition home or self-care (01) ==
LOC: MTLAB 10:09
PROVIDERS: PCP Family Medicine; Referring Provider Physician Assistant Surgical; Visit Provider Physician Assistant Surgical
DX: N18.30 Chronic kidney disease, stage 3 unspecified (principal)
CPT/HCPCS: 36415; 80048; 85027

== ENCOUNTER → 2024-08-14 | Outpatient (CLI) | payer MEDICARE, SELFPAY ==
--- NOTE | 2024-08-14 12:36 | VDLE_ITS ---
Reason For Study: LLE DVT RIGHT LEFT GSV is normal. GSV is normal. CFV is compressible, spontaneous, phasic, CFV is compressible, spontaneous, phasic, competent and demonstrates normal competent, and demonstrates normal augmentation. augmentation. FV is compressible, spontaneous, phasic, FV is compressible, spontaneous, phasic, competent and demonstrates normal competent and demonstrates normal augmentation. augmentation. POP V is compressible, spontaneous, phasic, FV Duplicator is PARTIALLY COMPRESSIBLE with competent and demonstrates normal hyperechoic intraluminal echogenicity. augmentation. Finding is consistent with possible CHRONIC T/P Trunk is compressible. DVT. PTV is compressible. Deep FV is compressible. RT PerV is compressible. Acute deep vein thrombosis is noted in the Procedure POP V. It is dilated and NONCOMPRESSIBLE. This is a venous duplex using B-mode, color Acute deep vein thrombosis is noted in the flow and spectral Doppler. T/P Trunk. It is dilated and NONCOMPRESSIBLE. Exam performed in department. PTV is compressible. The exam was diagnostic. LT PerV is compressible. A preliminary report was called and/or faxed to Dr Al Office. VL/Venous Duplex US - Allan Extrem Interpretation Summary Acute deep vein thrombosis is noted in the left popliteal vein, tibioperoneal t runk vein. Chronic deep vein thrombosis noted in duplicate left femoral vein. Deep veins of the right lower extremity are patent and compressible segmentally . There is no evidence of right lower extremity deep vein thrombosis. The bilateral great sap henous veins appear patent and compressible segmentally. Ordering Physician: Woodrow Al Referring Physician: Woodrow Al Performed By: Keon Sanderson RVT
== END | disposition home or self-care (01) ==
LOC: CVS 12:33
PROVIDERS: PCP Family Medicine; Referring Provider Family Medicine; Visit Provider Family Medicine
DX: M79.89 Other specified soft tissue disorders (principal); I82.409 Acute embolism and thrombosis of unspecified deep veins of unspecified lower extremity
CPT/HCPCS: 93970

== ENCOUNTER → 2024-08-28 | Outpatient (CLI) | payer MEDICARE, SELFPAY ==
--- NOTE | 2024-08-28 14:42 | VDLE_ITS ---
Reason For Study: Elevated D-dimer RIGHT LEFT GSV is normal. GSV is normal. CFV is compressible, spontaneous, phasic, CFV is compressible, spontaneous, phasic, competent and demonstrates normal competent, and demonstrates normal augmentation. augmentation. FV is compressible, spontaneous, phasic, FV is compressible, spontaneous, phasic, competent and demonstrates normal competent and demonstrates normal augmentation. augmentation. POP V is compressible, spontaneous, phasic, FV Duplicator is PARTIALLY COMPRESSIBLE with competent and demonstrates normal hyperechoic intraluminal echogenicity. augmentation. Finding is consistent with possible CHRONIC T/P Trunk is compressible. DVT. PTV is compressible. PopV is partially compressible with minimal RT PerV is compressible. venous flow noted. Procedure T/P Trunk is partially compressible with This is a venous duplex using B-mode, color minimal venous flow noted. flow and spectral Doppler. PTV is compressible. Exam performed in department. LT PerV is compressible. Compared to 08/14/24. A preliminary report was called and/or faxed to Dr. Ohara. VL/Venous Duplex US - Allan Extrem Interpretation Summary Chronic deep vein thrombosis is noted in the left femoral vein. Deep veins of the right lower extremity are patent and compressible segmentally . There is no evidence of right lower extremity deep vein thrombosis. The bilateral great sap henous veins appear patent and compressible segmentally. Ordering Physician: Galileo Ohara Referring Physician: Woodrow Al Performed By: Roxana Alvarado RVT
== END | disposition home or self-care (01) ==
LOC: CVS 14:42
PROVIDERS: PCP Family Medicine; Referring Provider Internal Medicine Medical Oncology; Visit Provider Internal Medicine Medical Oncology
DX: R09.89 Other specified symptoms and signs involving the circulatory and respiratory systems (principal); I82.512 Chronic embolism and thrombosis of left femoral vein; R79.89 Other specified abnormal findings of blood chemistry
CPT/HCPCS: 93970

== ENCOUNTER → 2024-10-04 | Outpatient (CLI) | payer MEDICARE, SELFPAY ==
--- NOTE | 2024-10-04 10:53 | VDLE_ITS ---
Reason For Study: Swelling LLE RIGHT LEFT CFV is compressible, spontaneous, phasic, GSV is normal. competent and demonstrates normal CFV is compressible, spontaneous, phasic, augmentation. competent, and demonstrates normal Procedure augmentation. This is a venous duplex using B-mode, color FV is compressible, spontaneous, phasic, flow and spectral Doppler. competent and demonstrates normal Exam performed in department. augmentation. A preliminary report was called and/or faxed FV Duplicator is PARTIALLY COMPRESSIBLE with to Verónica GARCÍA. hyperechoic intraluminal echogenicity. Finding is consistent with possible CHRONIC DVT. PopV is partially compressible with minimal venous flow noted. T/P Trunk is partially compressible with minimal venous flow noted. PTV is compressible. LT PerV is compressible. VL/Venous Duplex US, Unilateral Interpretation Summary Chronic deep vein thrombosis is noted in the left duplicate femoral vein, popli teal vein, tibioperoneal trunk vein Ordering Physician: Verónica Huber Referring Physician: Woodrow Al Performed By: Regi Sanford, MERCED, RVT
== END | disposition home or self-care (01) ==
LOC: CVS 10:52
PROVIDERS: PCP Family Medicine; Referring Provider Physician Assistant; Visit Provider Physician Assistant
DX: R22.42 Localized swelling, mass and lump, left lower limb (principal); I82.402 Acute embolism and thrombosis of unspecified deep veins of left lower extremity; Z86.718 Personal history of other venous thrombosis and embolism
CPT/HCPCS: 93971

== ENCOUNTER → 2024-10-28 | Outpatient (CLI) | payer MEDICARE, SELFPAY ==
--- NOTE | 2024-10-28 15:49 | VDLE_ITS ---
Reason For Study: Swelling LLE RIGHT LEFT CFV is compressible, spontaneous, phasic, GSV is normal. competent and demonstrates normal CFV is compressible, spontaneous, phasic, augmentation. competent, and demonstrates normal Procedure augmentation. This is a venous duplex using B-mode, color FV is compressible, spontaneous, phasic, flow and spectral Doppler. competent and demonstrates normal Exam performed in department. augmentation. A preliminary report was called and/or faxed FV Duplicator is PARTIALLY COMPRESSIBLE with to Dayanara GARCÍA. hyperechoic intraluminal echogenicity. Finding is consistent with possible CHRONIC DVT. PopV is partially compressible with minimal venous flow noted. T/P Trunk is partially compressible with minimal venous flow noted. PTV is compressible. LT PerV is compressible Hypoechoic, non vascular structure noted Lt Pop Fossa measuring 2.56cm x 1.04cm. VL/Venous Duplex US, Unilateral Interpretation Summary Chronic deep vein thrombosis noted in duplicate left femoral vein. Hypoechoic, non vascular structure noted left popliteal fossa measuring 2.56cm x 1.04cm. Ordering Physician: Dayanara Diaz Referring Physician: Woodrow Al Performed By: Regi Sanford, MERCED, RVT
== END | disposition home or self-care (01) ==
LOC: CVS 15:46
PROVIDERS: PCP Family Medicine
DX: R22.42 Localized swelling, mass and lump, left lower limb (principal)
CPT/HCPCS: 93971

== ENCOUNTER → 2024-11-14 | Outpatient (CLI) | payer MEDICARE, SELFPAY ==
[2024-11-14 15:28] LABS: Protein, Urine (Random) 26.1 mg/dL (<11.9); Protein:Creat Ratio 399 mg/g CRE (0-200)
[2024-11-14 15:33] LABS: Hemoglobin 13.2 g/dL (13.0-16.5); Mean Corp Hgb Conc 30.7 g/dL (32-36); Mean Corpuscular Hgb 30.7 pg (27.0-32.0); Mean Platelet Vol. 11.2 fl (6.2-12.0); Platelet Count 212 K/mm3 (150-450); RBC Distribution Width SD 59.2 fl (35.1-43.9); White Blood Count 7.6 K/mm3 (4.4-11.0)
[2024-11-14 15:41] LABS: Albumin, Serum 3.9 g/dL (3.2-5.0); BUN 31 mg/dL (7-18); BUN/Creat Ratio 11.5 RATIO (10-20); Calcium,Total 8.9 mg/dL (8.5-10.1); Chloride 104 mmol/L (98-107); EST Glomerular Filtration Rate 24 mL/min (>60); Est Glom Filt Rate - Afr Amer 29 mL/min (>60); Glucose 132 mg/dL (74-106); Phosphorus 2.6 mg/dL (2.5-4.9); Potassium 4.4 mmol/L (3.5-5.1); Sodium Level 136 mmol/L (136-145)
[2024-11-14 15:46] LABS: PTHIN 46.7 pg/mL (18.4-80.1)
[2024-11-14 15:47] LABS: Vitamin D,25 Hydroxy 61.6 ng/mL
[2024-11-14 17:17] LABS: Hepatitis C Antibody Non-Reactive (Nonreactive)
== END | disposition home or self-care (01) ==
PROVIDERS: PCP Family Medicine Geriatric Medicine; Referring Provider Internal Medicine Nephrology; Visit Provider Internal Medicine Nephrology
DX: E55.9 Vitamin D deficiency, unspecified (principal); N18.31 Chronic kidney disease, stage 3a; E78.5 Hyperlipidemia, unspecified; Z13.0 Encounter for screening for diseases of the blood and blood-forming organs and certain disorders involving the immune mechanism; Z13.89 Encounter for screening for other disorder
CPT/HCPCS: 36415; 80069; 82306; 82570; 83970; 84156; 85027; 86803

== ENCOUNTER → 2024-11-26 | Outpatient (CLI) | payer MEDICARE, SELFPAY ==
--- NOTE | 2024-11-26 12:10 | US_ITS ---
EXAM: US Retroperitoneal Limited, Renal CLINICAL INDICATION: TECHNIQUE: Real-time limited ultrasound of the retroperitoneum with image documentation. COMPARISON: No relevant prior studies available. FINDINGS: RIGHT KIDNEY: Unremarkable. No stones. No hydronephrosis. The right kidney measures 9.3 x 4.9 x 4.5 cm. LEFT KIDNEY: Unremarkable. No stones. No hydronephrosis. The left kidney measures 10.2 x 4.3 x 4.7 cm. OTHER FINDINGS: Tubular structure noted may be a dilated ureter distally with possible calculus measuring up to 3 mm. Further evaluation with CT abdomen and pelvis recommended. US/Kidney and Bladder IMPRESSION: Tubular structure noted may be a dilated ureter distally with possible calculus measuring up to 3 mm. Further evaluation with CT abdomen and pelvis recommended. Reading Location[facility]
== END | disposition home or self-care (01) ==
LOC: US 12:10
PROVIDERS: PCP Family Medicine Geriatric Medicine; Referring Provider Internal Medicine Nephrology; Visit Provider Internal Medicine Nephrology
DX: N18.31 Chronic kidney disease, stage 3a (principal)
CPT/HCPCS: 76770

== ENCOUNTER → 2024-12-26 | Outpatient (CLI) | payer MEDICARE, SELFPAY ==
--- NOTE | 2024-12-26 13:10 | RAD_ITS ---
EXAM: XR Abdomen, 1 View CLINICAL INDICATION: IRRITABLE BOWEL SYNDROME WITH DIARRHEA TECHNIQUE: Frontal supine view of the abdomen/pelvis. COMPARISON: No relevant prior studies available. FINDINGS: GASTROINTESTINAL TRACT: Fecal retention in the colon consistent with constipation. No dilation. BONES/JOINTS: Unremarkable. No acute fracture. RAD/Abd Inc Decub and/or Erect IMPRESSION: Fecal retention in the colon consistent with constipation. Reading Location: [facility]
--- NOTE | 2024-12-26 13:10 | RAD_ITS ---
EXAM: XR Chest, 2 Views CLINICAL INDICATION: HX NICOTINE DEPENDENCE TECHNIQUE: Frontal and lateral views of the chest. COMPARISON: No relevant prior studies available. FINDINGS: LUNGS AND PLEURAL SPACES: Pulmonary venous congestion. No consolidation. No pneumothorax. HEART: Unremarkable. No cardiomegaly. MEDIASTINUM: Unremarkable. Normal mediastinal contour. BONES/JOINTS: Unremarkable. No acute fracture. TUBES, LINES AND DEVICES: Neurostimulator of the right lower lung field. RAD/Chest PA and Lateral IMPRESSION: Pulmonary venous congestion. Reading Location: [facility]
== END | disposition home or self-care (01) ==
LOC: RAD 13:09 → LAB 13:39 → RAD 14:15
PROVIDERS: PCP Family Medicine Geriatric Medicine; Referring Provider Family Medicine Geriatric Medicine; Visit Provider Family Medicine Geriatric Medicine
DX: I71.40 Abdominal aortic aneurysm, without rupture, unspecified (principal); Z87.891 Personal history of nicotine dependence
CPT/HCPCS: 71046; 74019

== ENCOUNTER → 2024-12-30 | Outpatient (CLI) | payer MEDICARE, SELFPAY ==
[2024-12-30 09:57] LABS: Erythrocyte Sedimentation Rate < 1 mm/hr (0-20)
[2024-12-30 09:58] LABS: Absolute Lymphocyte Count 2.49 X10^3/uL (0.83-4.51); Absolute Neutrophil Count 4.2 X10^3/uL (2.0-7.7); Basophil# 0.06 X10^3/uL; Basophil% 0.8 % (0-1); Eosinophils% 2.6 % (0-5); Hematocrit 44.5 % (40-54); Hemoglobin 14.6 g/dL (13.0-16.5); Lymphocyte # 2.49 X10^3/ul (0.83-4.51); Lymphocyte % 32.3 % (19-41); Mean Corp Hgb Conc 32.8 g/dL (32-36); Mean Corpuscular Hgb 32.7 pg (27.0-32.0); Mean Corpuscular Volume 99.8 fL (80-94); Mean Platelet Vol. 10.6 fl (6.2-12.0); Monocyte# 0.73 X10^3/uL; Monocyte% 9.5 % (0-10); NRBC Flagged by Analyzer 0 % (0-5); Neutrophil # 4.19 X10^3/uL (2.7-7.7); Neutrophil % 54.3 % (47-70); Platelet Count 231 K/mm3 (150-450); RBC Distribution Width CV 14.5 % (11.6-14.6); RBC Distribution Width SD 53.2 fl (35.1-43.9); Red Blood Count 4.46 M/mm3 (4.6-6.2); White Blood Count 7.7 K/mm3 (4.4-11.0)
[2024-12-30 20:26] LABS: CRP < 3.00 mg/L (0.0-3.0)
== END | disposition home or self-care (01) ==
LOC: LAB 08:43
PROVIDERS: PCP Family Medicine Geriatric Medicine; Referring Provider Specialist; Visit Provider Specialist
DX: Z09 Encounter for follow-up examination after completed treatment for conditions other than malignant neoplasm (principal); I10 Essential (primary) hypertension; Z96.652 Presence of left artificial knee joint
CPT/HCPCS: 36415; 85025; 85652; 86140

== ENCOUNTER → 2024-12-30 | Outpatient (CLI) | payer MEDICARE, SELFPAY ==
--- NOTE | 2024-12-30 08:01 | AAAS_ITS ---
Reason For Study Reason For Study: AAA Screening Aorta Measurements Aorta Doppler Measurements Proximal aorta measures2.06 x 2.03cm. in cross-sectional Peak systolic flow velocities within the proximal aorta axis. measure 76.8 cm/sec. Proximal aorta measures2.10cm. in longitudinal axis. Peak systolic flow velocities within the mid aorta measure Mid aorta measures2.68 x 2.75cm. in cross-sectional axis. 101.8 cm/sec. Mid aorta measures2.67cm. in longitudinal axis. Peak systolic flow velocities within the distal aorta Distal aorta measures2.13 x 2.05cm. in cross-sectional axis.measure 80.9 cm/sec. Distal aorta measures2.09cm. in longitudinal axis. Left Iliac Artery Left iliac artery measures 1.21 x 1.21 cm. in the cross-sectional axis. Left iliac artery measures 1.25 cm. in the longitudinal axis. Peak systolic velocity in the left iliac artery measures 87.6 cm/sec. Right Iliac Artery Right iliac artery measures 1.41 x 1.27 cm. in the cross-sectional axis. Right iliac artery measures 1.38 cm. in the longitudinal axis. Peak systolic velocity in the right iliac artery measures 105.2 cm/sec. Procedure Aorta IVC Iliac vasculature or bypass grafts 62037. The exam was diagnostic. Technically difficult exam due to bowel gas. Exam performed in department. VL/AAA Screening Interpretation Summary Aorta patent, ectasia to 2.75 cm Right iliac artery patent, ectasia to 1.41 cm Left iliac artery patent, ectasia to 1.21 cm Ordering Physician: Phoenix Duran Chi Referring Physician: Phoenix Duran Chi Performed By: Keon Sanderson, RVT
--- NOTE | 2024-12-30 08:31 | RAD_ITS ---
PROCEDURE: ABDOMEN SINGLE VIEW REASON FOR EXAM: IBS W/ DIARRHEA TECHNIQUE: Single view abdomen. COMPARISON: Abdomen study of 12/26/2024. FINDINGS: No excess stool burden is seen. Bowel gas pattern is normal. No evidence of bowel obstruction. No suspicious calcifications. The bones are unchanged. RAD/Abdomen Single View IMPRESSION: Unremarkable bowel-gas pattern. Reading Location: [id number]
== END | disposition home or self-care (01) ==
PROVIDERS: PCP Family Medicine Geriatric Medicine; Referring Provider Family Medicine Geriatric Medicine; Visit Provider Family Medicine Geriatric Medicine
DX: I71.40 Abdominal aortic aneurysm, without rupture, unspecified (principal); K58.0 Irritable bowel syndrome with diarrhea; Z87.891 Personal history of nicotine dependence
CPT/HCPCS: 74018; 76706

== ENCOUNTER → 2025-01-03 | Outpatient (CLI) | payer MEDICARE, SELFPAY ==
--- NOTE | 2025-01-03 10:20 | RAD_ITS ---
EXAM: XR Abdomen, 2 Views CLINICAL INDICATION: DIARRHEA TECHNIQUE: Frontal view of the abdomen/pelvis with upright view of the abdomen. COMPARISON: No relevant prior studies available. FINDINGS: INTRAPERITONEAL SPACE: No free air. GASTROINTESTINAL TRACT: Unremarkable. No dilation. BONES/JOINTS: Unremarkable. No acute fracture. RAD/Abdomen Single View IMPRESSION: Nonobstructive bowel gas pattern. Reading Location: [facility]
== END | disposition home or self-care (01) ==
LOC: RAD 10:15
PROVIDERS: PCP Family Medicine Geriatric Medicine; Referring Provider Family Medicine Geriatric Medicine; Visit Provider Family Medicine Geriatric Medicine
DX: R19.7 Diarrhea, unspecified (principal)
CPT/HCPCS: 74018

== ENCOUNTER → 2025-01-08 | Outpatient (CLI) | payer MEDICARE, SELFPAY ==
--- NOTE | 2025-01-08 10:56 | RAD_ITS ---
EXAM: L/S spine minimum four views CLINICAL HISTORY: Low back pain, unspecified COMPARISON: None available TECHNIQUE: Five views; AP, bilateral oblique, lateral and coned-down L5-S1 view FINDINGS: 5 [id number] lumbar vertebral type bodies identified. Appearance of slight leftward curvature. No acute fracture or malalignment. No spondylolysis identified. L2-3 spondylosis/discogenic change with moderate disc space narrowing, endplate changes and anterior osteophyte formation. Mild spondylosis/discogenic change at L3-4 with anterior osteophyte formation. Spondylosis/discogenic change with moderate disc space narrowing L5-S1 and apparent vacuum effect at the disc. Aortoiliac atherosclerotic calcifications. RAD/L/S Spine Min 4 Views IMPRESSION: Multilevel spondylosis/discogenic change as above. Reading Location: [id number]
== END | disposition home or self-care (01) ==
LOC: RAD 10:55
PROVIDERS: PCP Family Medicine Geriatric Medicine; Referring Provider Family Medicine Geriatric Medicine; Visit Provider Family Medicine Geriatric Medicine
DX: M54.50 Low back pain, unspecified (principal)
CPT/HCPCS: 72110

== ENCOUNTER → 2025-01-15 | Outpatient (CLI) | payer MEDICARE, SELFPAY ==
[2025-01-15 15:21] LABS: Protein, Urine (Random) 12.7 mg/dL (0.0-12.0); Protein:Creat Ratio 161 mg/g CRE (0-200)
[2025-01-15 15:55] LABS: Albumin, Serum 4.1 g/dL (3.4-4.8); Anion Gap 10 (5-15); BUN 31 mg/dL (4-19); BUN/Creat Ratio 15.9 RATIO (10-20); Calcium,Total 9.2 mg/dL (7.6-11.0); Carbon Dioxide 24.9 mmol/L (21.0-32.0); Chloride 104 mmol/L (98-108); Creatinine, Serum 1.94 mg/dL (0.70-1.20); EST Glomerular Filtration Rate 34 (>60); Glucose 86 mg/dL (70-99); Phosphorus 3.6 mg/dL (2.7-4.5); Potassium 4.5 mmol/L (3.3-5.1); Sodium Level 139 mmol/L (133-145)
[2025-01-15 16:06] LABS: Mean Corp Hgb Conc 33.3 g/dL (32-36); Mean Corpuscular Hgb 33.6 pg (27.0-32.0); Mean Corpuscular Volume 100.9 fL (80-94); Mean Platelet Vol. 11.1 fl (6.2-12.0); Platelet Count 252 K/mm3 (150-450); RBC Distribution Width CV 14.9 % (11.6-14.6); RBC Distribution Width SD 55.2 fl (35.1-43.9); Red Blood Count 4.46 M/mm3 (4.6-6.2); White Blood Count 8.7 K/mm3 (4.4-11.0)
== END | disposition home or self-care (01) ==
LOC: MTLAB 11:10
PROVIDERS: PCP Family Medicine Geriatric Medicine; Referring Provider Internal Medicine Nephrology; Visit Provider Internal Medicine Nephrology
DX: N18.31 Chronic kidney disease, stage 3a (principal); Z13.0 Encounter for screening for diseases of the blood and blood-forming organs and certain disorders involving the immune mechanism
CPT/HCPCS: 36415; 80069; 82570; 84156; 85027

== ENCOUNTER → 2025-01-17 | Outpatient (CLI) | payer MEDICARE, SELFPAY | END | disposition home or self-care (01) | LOC: MTLAB 10:18 | PROVIDERS: PCP Family Medicine Geriatric Medicine; Referring Provider Internal Medicine Gastroenterology; Visit Provider Internal Medicine Gastroenterology | DX: R19.7 Diarrhea, unspecified (principal) | CPT/HCPCS: 82705; 83993 ==

== ENCOUNTER → 2025-02-17 | Outpatient (CLI) | payer MEDICARE, SELFPAY ==
[2025-02-17 12:34] LABS: Absolute Lymphocyte Count 1.95 X10^3/uL (0.83-4.51); Absolute Neutrophil Count 4.7 X10^3/uL (2.0-7.7); Basophil# 0.05 X10^3/uL; Basophil% 0.7 % (0-1); Eosinophil# 0.07 X10^3/uL; Eosinophils% 0.9 % (0-5); Hematocrit 44.4 % (40-54); Hemoglobin 14.7 g/dL (13.0-16.5); Lymphocyte # 1.95 X10^3/ul (0.83-4.51); Lymphocyte % 25.9 % (19-41); Mean Corp Hgb Conc 33.1 g/dL (32-36); Mean Corpuscular Hgb 34.3 pg (27.0-32.0); Mean Corpuscular Volume 103.7 fL (80-94); Mean Platelet Vol. 10.5 fl (6.2-12.0); Monocyte# 0.73 X10^3/uL; Monocyte% 9.7 % (0-10); NRBC Flagged by Analyzer 0 % (0-5); Neutrophil % 62.4 % (47-70); Platelet Count 233 K/mm3 (150-450); RBC Distribution Width CV 13.7 % (11.6-14.6); RBC Distribution Width SD 52.9 fl (35.1-43.9); Red Blood Count 4.28 M/mm3 (4.6-6.2); White Blood Count 7.5 K/mm3 (4.4-11.0)
[2025-02-17 13:03] LABS: ALB/GLOB Ratio 1.7 RATIO (0.9-2.4); AST(SGOT) 15 U/L (<=37); Alanine Aminotransfer ALT/SGPT 11 U/L (<=46); Alkaline Phosphatase 57 U/L (40-129); Anion Gap 9 (5-15); BUN 25 mg/dL (4-19); BUN/Creat Ratio 14.1 RATIO (10-20); Calcium,Total 8.9 mg/dL (7.6-11.0); Carbon Dioxide 25.5 mmol/L (21.0-32.0); Chloride 104 mmol/L (98-108); Creatinine, Serum 1.77 mg/dL (0.70-1.20); EST Glomerular Filtration Rate 38 (>60); Globulin 2.4 g/dL (2.2-4.2); Glucose 112 mg/dL (70-99); Potassium 4.8 mmol/L (3.3-5.1); Protein, Total 6.3 g/dL (5.9-8.4); Sodium Level 138 mmol/L (133-145); Total Bilirubin 0.62 mg/dL (0.00-1.30); Vitamin D,25 Hydroxy 45.9 ng/mL (30-100)
== END | disposition home or self-care (01) ==
LOC: MTLAB 10:09
PROVIDERS: PCP Family Medicine Geriatric Medicine; Referring Provider Family Medicine Geriatric Medicine; Visit Provider Family Medicine Geriatric Medicine
DX: E11.9 Type 2 diabetes mellitus without complications (principal); E55.9 Vitamin D deficiency, unspecified; I10 Essential (primary) hypertension
CPT/HCPCS: 36415; 80053; 82306; 84443; 85025

== ENCOUNTER → 2025-02-24 | Outpatient (CLI) | payer MEDICARE, SELFPAY ==
--- NOTE | 2025-02-24 16:45 | RAD_ITS ---
PROCEDURE: ABDOMEN SINGLE VIEW 02/24/2025 REASON FOR EXAM: DIARRHEA TECHNIQUE: Single view abdomen. 2 supine images to include the entire abdomen and pelvis COMPARISON: 01/03/2025 FINDINGS: Nonobstructive appearing bowel gas pattern. No gaseous distention of bowel. A few nondilated loops of small bowel in the left mid to lower abdomen with possible fold thickening which may represent enteritis. No evidence of mass effect. Lung bases appear clear. RAD/Abdomen Single View IMPRESSION: Nonobstructive appearing bowel gas pattern. No gaseous distention of bowel. A few nondilated loops of small bowel in the left mid to lower abdomen with pos sible fold thickening which may represent enteritis. Reading Location: [id number]
== END | disposition home or self-care (01) ==
LOC: RAD 16:30
PROVIDERS: PCP Family Medicine Geriatric Medicine
DX: R19.7 Diarrhea, unspecified (principal)
CPT/HCPCS: 74018

== ENCOUNTER → 2025-02-27 | Outpatient (CLI) | payer MEDICARE, SELFPAY ==
--- NOTE | 2025-02-27 09:33 | US_ITS ---
PROCEDURE: ABDOMEN LIMITED 02/27/2025 REASON FOR EXAM: DIARRHEA, GAS, BLOAT COMPARISON: None FINDINGS: Liver: Diffusely echogenic suggesting fatty infiltration. Gallbladder: No stones, sludge, wall thickening or tenderness. Common bile duct: Normal measuring 3 mm . Pancreas: Visualized portions are unremarkable. The distal body and tail are obscured by bowel gas. Other: Right kidney is unremarkable. US/Abdomen Limited IMPRESSION: Sub visualized interesting due to large amount of bowel gas. Fatty infiltration of the liver. Reading Location: [id number]
== END | disposition home or self-care (01) ==
LOC: US 09:32
PROVIDERS: PCP Family Medicine Geriatric Medicine
DX: R19.7 Diarrhea, unspecified (principal)
CPT/HCPCS: 76705

== ENCOUNTER → 2025-03-12 | Outpatient (CLI) | payer MEDICARE, SELFPAY ==
[2025-03-15 00:07] LABS: Calprotectin, Stool 26 ug/g (0-120); Giardia Lamblia, Stool EIA Negative (Negative); Pancreatic Elastase, Fecal > 800 (>200)
== END | disposition home or self-care (01) ==
PROVIDERS: PCP Family Medicine Geriatric Medicine
DX: R19.7 Diarrhea, unspecified (principal)
CPT/HCPCS: 82653; 83630; 83993; 87329; 87493

== ENCOUNTER → 2025-03-25 | Outpatient (CLI) | payer MEDICARE, SELFPAY ==
--- NOTE | 2025-03-25 16:23 | CT_ITS ---
PROCEDURE: ABDOMEN/PELVIS WITH CONTRAST 03/25/2025 REASON FOR EXAM: HIGH SUSPICION FOR ENTERITIS SEEN ON KUB TECHNIQUE: Abdomen and pelvis CT with intravenous contrast. Coronal and Sagittal reconstruction series were provided. PATIENT PREPARATION: Per protocol ORAL CONTRAST TYPE: None. AMOUNT: mL CONTRAST: Isovue 370 VOLUME: 80 mL One or more dose reduction techniques were used (e.g., Automated exposure control, adjustment of the mA and/or kV according to patient size, use of iterative reconstruction technique. RADIATION DOSE SUMMARY: CTDlvol: 13.3 x 17.3 x 12.2 mGy DLP: 1109.89 mGycm COMPARISON: 02/27/2025 radiograph. FINDINGS: The peripheral soft tissues are unremarkable. Degenerative changes of the spine. Degenerative changes of the knees and sacroiliac joints. Infrarenal abdominal aortic fusiform aneurysm measures 3.2 cm. No lymphadenopathy. Subcentimeter hepatic hypodense lesions that are too small to characterize. The gallbladder is unremarkable. The pancreas is unremarkable. The adrenals and kidneys are unremarkable. No hydronephrosis. The urinary bladder is unremarkable. The prostate is unremarkable. Normal caliber large and small bowel. A few scattered colonic diverticuli. No surrounding inflammation. Normal caliber appendix. CT/Abdomen/Pelvis WITH Contrast IMPRESSION: No acute abnormalities of the abdomen or pelvis. No evidence of bowel obstruct ion or ileus. Colonic diverticulosis. Infrarenal abdominal aortic fusiform aneurysm. Reading Location: [place] [id number]
== END | disposition home or self-care (01) ==
LOC: CT 16:22
PROVIDERS: PCP Family Medicine Geriatric Medicine
DX: R19.7 Diarrhea, unspecified (principal)
CPT/HCPCS: 74177; Q9967

== ENCOUNTER 2025-04-09 08:12 | Observation (INO) | payer MEDICARE, SELFPAY ==
--- NOTE | 2025-03-26 15:34 | PAT.ANE_ITS ---
Pre-Assessment Diagnosis/Proposed Procedure Planned Operative Procedure(s): CYSTO TURP Anesthesia History Anesthesia History - change consultant: Anesthesia History - change consultant Hx Hospitalization No 03/26/25 13:52 Any Problems With Anesthesia No 03/26/25 13:52 Cholinesterase deficiency No 03/26/25 13:52 You/Your Family Experience No 03/26/25 13:52 fever (hyperthermia) with Relationship Recent Exposure to Contagious No 11/07/24 13:09 Disease Does patient have nerve No 03/26/25 13:52 stimulator Patient instructed to have device shut off --Does patient have Pacemaker or ICD? When Was Last Pacemaker Check QUESTION #4 FULL TEXT: You/Your Family Experience fever (hyperthermia) with Anesthesia Last Oral Intake Last Oral intake: Last Oral Intake NPO since Meds taken in AM with sips of water? Meds patient instructed to take am of surgery PONV PONV - change consultant: PONV - change consultant Female No 03/26/25 13:52 HX of Motion Sickness Yes 03/26/25 13:52 HX of N/V After Surgery No 03/26/25 13:52 Non-Smoker Yes 03/26/25 13:52 Duration of Surgery greater Yes 03/26/25 13:52 than 60 minutes Number of Risk Factors 3 03/26/25 13:52 PONV Score Moderate Risk 03/26/25 13:52 Height & Weight Height & Weight: Anesthesia: Height & Weight Height 5 ft 8 in 03/04/25 11:35 Respiratory Assessment Respiratory Assessment - change consultant: Respiratory Tract Infection Hx - change consultant Hx Respiratory Tract Infection No 03/26/25 13:52 STOP Sleep Apnea STOP Sleep Apnea - change consultant: STOP Sleep Apnea - change consultant Hx Hypertension Yes: CONTROLLED WITH MED 03/26/25 13:52 Hx Sleep Apnea Yes 03/26/25 13:52 CPAP Yes: DOES NOT WORK 03/26/25 13:52 BIPAP Yes: DOES NOT WORK PER 03/26/25 13:52 PATIENT Do you snore loudly (louder No 03/26/25 13:52 than talking or can be heard Do you often feel tired/ No 03/26/25 13:52 fatigued/ sleepy during daytime? Has anyone observed you stop No 03/26/25 13:52 breathing during sleep? STOP Results Positive 03/26/25 13:52 QUESTION #5 FULL TEXT : Do you snore loudly (louder than talking or can be heard through closed doors)? Tobacco Use History Tobacco Use History - change consultant: Tobacco Use History - change consultant Tobacco Use Smoking Status Former smoker 03/26/25 13:52 Hx Tobacco Use No 03/26/25 13:52 Years Smoking Packs Smoked per Day Smoking Cessation Date was No - quit smoking greater 03/26/25 13:52 within the last 15 years than 15 years ago Hx Smoking Cessation Date 10/16/75 03/26/25 13:52 Hx Smoking Cessation No 03/26/25 13:52 Counseling Hematologic Medial History Hematologic Hx - change consultant: Hematologic Medical Hx - expander Hx of Blood Transfusion No 03/26/25 13:52 Hx of Transfusion in last 3 No 03/26/25 13:52 Months Date of Last Transfusion (if within last 3 months) Ever experience any problems No 03/26/25 13:52 with transfusion(s)? Specify any problems Hx of Preganancy in last 3 N/A 03/26/25 13:52 Months Nurse Filling Out Transfusion DSCHRIBER 03/26/25 13:52 & Questions: Date: 03/26/25 03/26/25 13:52 Time: 13:55 03/26/25 13:52 Patient unable to answer at this time (ie. confused, unrespo /Reproduction History /Reproductive History - change consultant: /Reproductive Hx- change consultant Hx Now No 03/26/25 13:52 Gestational Age (in weeks): EDC: Hx Hx Para Hx Section SAB No 03/26/25 13:52 PFSH Medical History (Updated 03/26/25 @ 14:15 by Krystle Marc) Depression Prostate disease History of renal disease Restless legs Back pain Diarrhea Sleep apnea History of edema Hypertension Acute deep vein thrombosis (DVT) of popliteal vein of left lower extremity Ankle injury Cancer Thyroid disease Arthritis High cholesterol History of echocardiogram Tilt table evaluation Hx of fracture of ankle Squamous cell cancer of external ear ROSITA (obstructive sleep apnea) Mixed hyperlipidemia Type 2 diabetes mellitus Syncope and collapse Wears hearing aid Wears glasses Fibromyalgia Alcohol use Diabetes DVT (deep venous thrombosis) Injury of head and neck Passed out Gastric reflux Former smoker History of stress test History of Holter monitoring Cardiology follow-up encounter History of rheumatic fever Encounter for screening for COVID-19 Fatigue Overweight (BMI 25.0-29.9) Diabetes mellitus Raynaud disease Hyperlipidemia Prostate Tissues Osteoarthritis Chest pain Home Medications ?Medication ?Instructions ?Recorded ?Last Taken ?Type losartan 25 mg tablet 25 mg PO DAILY blood pressur e 04/17/14 08/05/24 History blood sugar diagnostic (OneTouch 09/06/22 Unknown His tory Verio test strips) levothyroxine 50 mcg capsule 50 mcg PO DAILY 08/01/23 08/05/24 History cbd topical 3,000 mg topical 2XD PRN diana n 08/21/24 Unknown History (scale score 1-3) dupilumab 300 mg/2 mL subcutaneous 300 mg subcut QMONT H 08/21/24 Unknown History pen injector (Dupixent) apixaban 5 mg tablet (Eliquis) 2.5 mg PO BID 03/04/25 Unknown History citalopram 10 mg tablet 10 mg PO DAILY 03/26/25 Unkn own History psyllium husk 0.4 gram capsule 0.8 g PO DAILY 03/26/25 Unknown History (Fiber (psyllium husk)) valacyclovir 500 mg tablet 500 mg PO DAILY 03/26/25 Un known History Allergy/AdvReac Type Severity Reaction Status Date / Time tamsulosin Allergy Severe Blacked Verified 03/26/25 13:45 out, Passed out meloxicam Allergy Unknown Decrease Verified 03/26/25 13:45 in kidney function alfuzosin HCl (From Allergy Unknown Verified 03/26/25 13:45 Uroxatral) ezetimibe (From Zetia) Allergy Pain in Verified 03/26/25 13:45 joints pramipexole di-HCl (From Allergy Other Verified 03/26/25 13:45 Mirapex) simvastatin (From Zocor) Allergy Pain in Verified 03/26/25 13:45 joints celecoxib (From Celebrex) AdvReac Unknown Unknown Verified 03/26/25 13:45 lisinopril AdvReac Other Verified 03/26/25 13:45 Family History Brother Myocardial infarction, Onset Age: 58 Sister Cancer Breast Grandfather Myocardial infarction Other Arthritis Breast cancer FH: defects Surgical History (Updated 03/26/25 @ 14:15 by Krystle Marc) Hx of total knee arthroplasty History of transurethral resection of prostate History of esophagogastroduodenoscopy (EGD) Hx of colonoscopy History of repair of anterior cruciate ligament of left knee H/O cataract removal with insertion of prosthetic lens History of total right knee replacement (TKR) Social History Smoking Status: Former smoker alcohol intake: current alcohol intake frequency: 0-2 drinks per day details: states 0 - 2 shots of Loíza daily edited on 08.27.24 per patient request substance use type: does not use caffeine: Yes Type: coffee Number of servings: 3 what type of physical activity do you participate in: none Audit: Pertinent Findings Pertinent Findings EKG Perinent findings: 08/05/2024. Sinus rhythm with PACs. Left axis deviation. Inferior infarct, age undetermined. Consult pertinent findings: Cardiology 06/25/2024. Syncope and collapse . Resolved. Echo August 2022. Showed EF of 60% no valvular abnormalities. Stress test on 09/04/2022 was negative. 30-day event monitor July 2022 showed 7 beat run of V. tach otherwise asymptomatic. Tilt test also negative and December 2022. Continue to monitor. No further workup required. Recommendation Anesthesia Recommendation Anesthesia recommendation: OPTIMIZED for anesthesia
[2025-04-09] VITALS (19 sets, daily range): BP systolic 114–160; BP diastolic 56–89; PULSE 58–69; RESP 16–18; TEMP 36.3–36.8; O2SAT 16–100; BMI 27.4; BMI 27.3
--- OUTSIDE RECORDS SUMMARY | 2025-04-09 06:05 | XMS RPT_ITS | CCD ---
Author Organization [facility] Care Team Providers Care Diabetes Clinical Manager Name Role Phone Yulia Doll Unavailable Zumbar Jeovany Unavailable Unavailable Zumbar Jeovany Unavailable Unavailable Alirio Walterer B Unavailable Unavailab le Bursley, Christopher B Unavailable Unavailab rancho CERVANTESLEY CHRISTOPHER Unavailable Unavailable JOSE MEN TEMO Unavailable Unavailable BURSLEY CHRISTOPHER Unavailable Unavailable Lori, Asiya Unavailable Unavailable PROVIDER, UNKNOWN Unavailable Unavailable No, PCP Unavailable Unavailable Monserrat Wilson Unavailable Unavailable KAREEMDAMARIS Attending Unavailable KAREEMDAMARIS Primary Care Unavailable KAREEM, DAMARIS Cross Admitting Unavailable MONSERRAT WILSON Consulting Unavailable PROVIDER, UNKNOWN Consulting Unavailable PROVIDER, UNKNOWN Consulting Unavailable KAREEM, DAMARIS E Primary Care Unavailable KAREEM, DAMARIS E Admitting Unavailable MONSERRAT WILSON Consulting Unavailable KAREEMDAMARIS E Attending Unavailable PROVIDER, UNKNOWN Consulting Unavailable PROVIDER, UNKNOWN Consulting Unavailable Monserrat Wilson Unavailable Unavailable Unavailable Monserrat Wilson Primary Care Provider Dr. Monserrat Wilson Primary Care Provider Elena Martin Attending Provider Unavailable Dr. Monserrat Wilson Referring Provider Dr. Wilner Poe Attending Provider Dr. Wilner Poe Referring Provider Dr. Wilner Poe Other Provider [phone] Monserrat Wilson Primary Care Provider Elena Martin Attending Provider Unavailable Dr. Monserrat Wilson Referring Provider Dr. Wilner Poe Attending Provider [phone] Dr. Wilner Poe Referring Provider [phone] Dr. Wilner Poe Other Provider [phone] Markie Mixon Attending Provider [phone] Monserrat Wilson Primary Care Provider Monserrat Wilson Primary Care Provider Roof NETWORK CONTRACTOR, NETWORK CONTRACTOR-C Malick Bullock Attending Provider Dr. Monserrat Wilson Primary Care Provider [phone] Dr. Wilner Poe Referring Provider [phone] Dr. Monserrat Wilson Referring Provider [phone] Dr. Mat Mehta Attending Provider Dr. Monserrat Wilson Primary Care Provider [phone] Dr. Monserrat Wilson Referring Provider Roof NETWORK CONTRACTOR, NETWORK CONTRACTOR-Dilia Bullock Attending Provider Dr. Mat Mehta Attending Provider Dr. Markie Mixon Attending Provider [phone] Mat Mehta Referring Provider Dr. Mat Mehta Other Provider Dr. Wilner Poe Attending Provider [phone] Monserrat Wilson MD Primary Care Provider Dr. Monserrat Wilson Primary Care Provider [phone] Dr. Monserrat Wilson Referring Provider Dr. Mat Mehta Referring Provider Roof NETWORK CONTRACTOR, NETWORK CONTRACTOR-Dilia Bullock Attending Provider Yojana, Justin Attending Unavailable Steve, Dr. Monserrat Priest Primary Care Unavai lable Miluis, Dr. Monserrat Priest Referring Unavai lable Zakhary, Justin Attending Unavailable Zakhary, Justin Referring Unavailable Miedel, Dr. Monserrat Priest Primary Care Unavai lable Zakhary, Justin Attending Unavailable Zakhmarianna, Justin Referring Unavailable Miedel, Dr. Monserrat Priest Primary Care Unavai lable Zakhary, Justin Attending Unavailable Miedel, Dr. Monserrat Priest Primary Care Unavai lable Miedel, Dr. Monserrat Priest Referring Unavai lable Miedel, Dr. Monserrat Priest Primary Care Unavai lable Zakhary, Justin Attending Unavailable Miluis, Dr. Monserrat Priest Referring Unavai lable Malick Al Primary Care Provider [phone] Unavailable Primary Care Provider UnavailMARLON Pierre Attending Unavailable MALICK AL Referring Unavailable Malick Al MD Primary Care Provider Dr. Monserrat Wilson Referring Provider Roof NETWORK CONTRACTOR, NETWORK CONTRACTOR-Dilia Bullock Attending Provider Dr. Malick Al Primary Care Provider [phone] Dr. Malick Al Referring Provider Dr. Mat Mehta Attending Provider RAQUEL Arroyo Attending Provider Dr. Markie Mixon Attending Provider Dr. Rachid Shultz Referring Provider Dr. Malick Al Primary Care Provider [phone] Dr. Markie Mixon Attending Provider Dr. Joe Naranjo Referring Provider Dr. Malick Al Referring Provider Roof NETWORK CONTRACTOR, NETWORK CONTRACTOR-C Malick Bullock Attending Provider Malick Al MD Primary Care Provider Steve RÍOS, Monserrat Cross Primary Care Provider Mikaela RÍOS, Dr. Malick Cross Primary Care Provider Mikaela RÍOS, Dr. Malick Cross Referring Provider [phone] Lev RÍOS, Dr. Gurrola Attending Provider Huber PA, Verónica Attending Provider [phone] Cecile PA, Verónica Referring Provider Danny RÍOS, Dr. Aden Attending Provider Diana PA, Mercy Attending Provider [phone] Adeel RÍOS, Dr. Ibarra Attending Provider Joe PA, Dayanara Attending Provider [phone] Joe PA, Daynaara Referring Provider [phone] Apollo Galvin Attending Provider Roger RÍOS, Dr. Phoenix Landers Primary Care Provider Ivy RÍOS, Dr. Huff Attending Provider Ivy RÍOS, Dr. Huff Referring Provider Lev RÍOS, Dr. Gurrola Referring Provider Valerie NETWORK CONTRACTOR-C, Iraida Attending Provider Roger RÍOS, Dr. Phoenix Landers Referring Provider Roger RÍOS, Dr. [place] Landers Attending Provider Dimitry RÍOS, Dr. Badillo Attending Provider [phone] Dimitry RÍOS, Dr. Badillo Referring Provider [phone] Ayush RÍOS, Dr. Martinez Attending Provider Ayush RÍOS, Dr. Martniez Referring Provider Mikaela RÍOS, Dr. Malick Cross Primary Care Provider [phone] Mikaela RÍOS, Dr. Malick Cross Referring Provider [phone] Lev RÍOS, Dr. Gurrola Attending Provider Mikaela RÍOS, Dr. Malick Cross Primary Care Provider Danny RÍOS, Dr. Aden Attending Provider Mikaela RÍOS, Dr. Malick Cross Referring Provider Lev RÍOS, Dr. Gurrola Attending Provider CUCO MARQUEZ Referring Unavailable MALICK AL Primary Care Unavailable SELF Referring Unavailable CUCO MARQUEZ Attending Unavailable MALICK LA Primary Care Unavailable Mikaela RÍOS, Dr. Mlaick Cross Primary Care Provider [phone] Danny RÍOS, Dr. Aden Attending Provider Justino NETWORK CONTRACTOR-C, Debra Attending Provider Justino NETWORK CONTRACTOR-C, Debra Referring Provider Lev RÍOS, Dr. Gurrola Referring Provider Roger RÍOS, Dr. Phoenix Landers Primary Care Provider [phone] Ivy RÍOS, Dr. Huff Attending Provider Ivy RÍOS, Dr. Huff Referring Provider Mikaela RÍOS, Dr. Malick Cross Primary Care Provider Lev RÍOS, Dr. Gurrola Attending Provider Roger RÍOS, Dr. Phoenix Landers Primary Care Provider Ivy RÍOS, Dr. Huff Attending Provider Ivy RÍOS, Dr. Huff Referring Provider Phoenix Duran Chi Primary Care Unavailable Juan Peacock Referring Unavailable Juan Peacock Attending Unavailable Joseph Leslie Admitting Unavailable Joseph Leslie Consulting Unavailable Malick Al Primary Care Unavailable Manuela Marshall Attending Unavailable Joseph Wick Attending Unavailable Jose Gallagher Consulting Unavailable Malick Al Primary Care Unavailable Marlon Moraes Referring Unavailable Marlon Moraes Admitting Unavailable Aneesh Prado Consulting Unavailable Malick Al Primary Care Unavailable Malick lA Referring Unavailable Mercy Ortiz Attending Unavailable Roger, Phoenix Chi Referring Unavailable Roger, Phoenix Chi Primary Care Unavailable Roger, Phoenix Chi Attending Unavailable Schinner, Malick E Primary Care Unavailable Jaime Moraesen Referring Unavailable DimitryMarlon Attending Unavailable Roger, Phoenix Chi Primary Care Unavailable Roger, Phoenix Chi Referring Unavailable Roger, Phoenix Chi Attending Unavailable Roger, Phoenix Chi Primary Care Unavailable IvyRandy heathprakas Attending Unavailable Ivy, Jayaprakas Referring Unavailable Schinner, Malick E Primary Care Unavailable Schinner Malick E Attending Unavailable Schinner, Malick E Referring Unavailable Debra Badillo Attending Unavailable Badillo, Debra Referring Unavailable Roger, Phoenix Chi Primary Care Unavailable Roger, Phoenix Chi Primary Care Unavailable Dimitry Marlon Referring Unavailable DimitryJaimeen Attending Unavailable Roger, Phoenix Chi Primary Care Unavailable Roger, Phoenix Chi Referring Unavailable Roger, Phoenix Chi Attending Unavailable Marlon Moraes Consulting Unavailable Debra Badillo Attending Unavailable Badillo, Debra Referring Unavailable Roger, Phoenix Chi Primary Care Unavailable Badillo, Debra Referring Unavailable Roger, Phoenix Chi Primary Care Unavailable Debra Badillo Attending Unavailable Debra Badillo Attending Unavailable Badillo, Debra Referring Unavailable Roger, Phoenix Chi Primary Care Unavailable Schinner, Malick E Primary Care Unavailable Dimitry Marlon Referring Unavailable Marlon Moraes Attending Unavailable Roger, Phoenix Chi Primary Care Unavailable Roger, Phoenix Chi Referring Unavailable Roger, Phoenix Chi Attending Unavailable Joseph Leslie Admitting Unavailable Joseph Leslie Consulting Unavailable Joseph Leslie Attending Unavailable Schinner, Malick E Primary Care Unavailable Manuela Marshall Consulting Unavailable Manuela Marshall Attending Unavailable Roger, Pohenix Chi Primary Care Unavailable Randy Haynesprayovanis Referring Unavailable Katelin Hayness Attending Unavailable Galileo Ohara Attending Unavailable Schinner, Malick E Primary Care Unavailable Schinner, Malick E Referring Unavailable Verónica Huber Attending Unavailable Schinner, Malick E Referring Unavailable Schinner, Malick E Primary Care Unavailable Schinner, Malick E Referring Unavailable Galileo Ohara Attending Unavailable Schinner, Malick E Primary Care Unavailable Schinner, Malick E Primary Care Unavailable Monserrat Wilson Referring Unavailable Fred Denis Attending Unavailable Verónica Huber Attending Unavailable Schinner, Malick E Primary Care Unavailable Galileo Ohara Referring Unavailable Schinner, Malick E Referring Unavailable Schinner, Malick E Primary Care Unavailable Galileo Ohara Attending Unavailable Schinner, Malick E Referring Unavailable Schinner, Malick E Primary Care Unavailable Galileo Ohara Attending Unavailable Schinner, Malick E Primary Care Unavailable Schinner, Malick E Referring Unavailable Galileo Ohara Attending Unavailable Debra Badillo Attending Unavailable Roger, Phoenix Chi Primary Care Unavailable Roger, Phoenix Chi Referring Unavailable Markie Mixon Attending Unavailable Roger, Phoenix Chi Primary Care Unavailable Schinner, Malick E Primary Care Unavailable Markie Mixon Attending Unavailable Galileo Ohara Referring Unavailable Markie Mixon Attending Unavailable Schinner, Malick E Primary Care Unavailable Schinner, Malick E Referring Unavailable Schinner, Malick E Primary Care Unavailable Beverley Burt Attending Unavailable Markie Mixon Attending Unavailable Schinner, Malick E Primary Care Unavailable Jun Mayen Referring Unavailable Dayanara Diaz Referring Unavailable Schinner, Malick E Primary Care Unavailable Markie Mixon Attending Unavailable Joseph Wick Attending Unavailable Schinner, Malick E Primary Care Unavailable Jose Gallagher Consulting Unavailable Marlon Moraes Referring Unavailable Marlon Moraes Admitting Unavailable Aneesh Prado Consulting Unavailable Joseph Wick Consulting Unavailable Debra Badillo Attending Unavailable Roger, Phoenix Chi Primary Care Unavailable Roger, Phoenix Chi Referring Unavailable Roger, Phoenix Chi Referring Unavailable Roger, Phoenix Chi Primary Care Unavailable Galileo Ohara Attending Unavailable Debra Badillo Attending Unavailable Roger, Phoenix Chi Referring Unavailable Roger, Phoenix Chi Primary Care Unavailable Schinner, Malick E Primary Care Unavailable Galileo Ohara Attending Unavailable Galileo Ohara Referring Unavailable Schinner, Malick E Primary Care Unavailable BETTS Attending Unavailable SIDEKANDIS, RK Referring Unavailable Schinner, Malick E Primary Care Unavailable BETTS Attending Unavailable SIDELL, RK Referring Unavailable Roger, Phoenix Chi Referring Unavailable Roger, Phoenix Chi Primary Care Unavailable Roger, Phoenix Chi Attending Unavailable Schinner, Malick E Primary Care Unavailable Jun Mayen Attending Unavailable Betzyaur Ray Referring Unavailable Schinner, Malick E Attending Unavailable Schinner, Malick E Primary Care Unavailable Huber Verónica Referring Unavailable Schinner, Malick E Primary Care Unavailable HuberDanis nascimentoison Attending Unavailable Roger, Phoenix Chi Primary Care Unavailable Refugio Haynes Attending Unavailable IvyKatelin heaths Referring Unavailable Roger, Phoenix Chi Referring Unavailable Roger, Phoenix Chi Attending Unavailable Roger, Phoenix Chi Primary Care Unavailable Schinner, Malick E Primary Care Unavailable Galileo Ohara Attending Unavailable Galileo Ohara Referring Unavailable Dayanara Diaz Referring Unavailable Schinner, Malick E Primary Care Unavailable Dayanara Diaz Attending Unavailable Schinner, Malick E Primary Care Unavailable Jun Mayen Attending Unavailable Eshenaur Ray Referring Unavailable Roger, Phoenix Chi Referring Unavailable Roger, Phoenix Chi Primary Care Unavailable Iraida Padilla NP Attending Unavailable Aneesh Prado Attending Unavailable Roger, Phoenix Chi Primary Care Unavailable Schinner, Malick E Referring Unavailable Schinner, Malick E Primary Care Unavailable Apollo Galvin Attending Unavailable Schinner, Malick E Primary Care Unavailable Schinner, Malick E Referring Unavailable Galileo Ohara Attending Unavailable Fred Denis Attending Unavailable Schinner, Malick E Primary Care Unavailable Verónica Huber Referring Unavailable Markie Mixon Attending Unavailable Schinner, Malick E Primary Care Unavailable Jose Gallagher Attending Unavailable Marlon Moraes Consulting Unavailable Allergies Allergy Classification Reported Allergen(s) Allergy Type Date of Onset Reaction(s) Facility Adrenergic Antagonists (2 sources) alfuzosin; Translations: [Uroxatral] Drug Allergy [facility]-Fcvxltzeb-L arma 204 Work Phone: Cholesterol Absorption Inhibitors (1 source) ezetimibe; Translations: [Zetia] Drug Allergy YX-Zbktuaeog-E arma 204 Work Phone: HMG-CoA Reductase Inhibitors (statins) (1 source) Simvastatin; Translations: [Zocor] Drug Allergy ES-Hfdeayffz-G arma 204 Work Phone: NSAIDs (2 sources) celecoxib; Translations: [CeleBREX CAPS] Drug Allergy IK-Oxyytfjng-A arma 204 Work Phone: Pramipexole (1 source) Pramipexole; Translations: [Mirapex] Drug Allergy JH-Zkdxpucmn-E arma 204 Work Phone: (20 sources) alfuzosin; Translations: [Uroxatral] Drug Allergy GG-Plepiawfa-D arma 204 Work Phone: (20 sources) celecoxib; Translations: [CeleBREX CAPS] Drug Allergy 2 Unknown [facility] (20 sources) ezetimibe; Translations: [ZETIA] Drug Allergy [facility] (20 sources) meloxicam; Translations: [MELOXICAM] Drug Allergy 0 Unknown [facility] Comment on above: with Celebrex combin ation (20 sources) Pramipexole; Translations: [MIRAPEX] Drug Allergy [facility] (20 sources) Simvastatin; Translations: [ZOCOR] Drug Allergy [facility] (20 sources) tamsulosin; Translations: [tamsulosin] Drug Allergy 0 Intolerance, Syncope [facility] (1 source) celecoxib Drug Allergy [facility] (20 sources) alfuzosin; Translations: [ALFUZOSIN HCL] Drug Allergy 7 Other: See Comments [facility] (20 sources) ezetimibe; Translations: [EZETIMIBE] Drug Allergy 5 Other: See Comments [facility] (15 sources) Pramipexole; Translations: [PRAMIPEXOLE] Drug Allergy 0 Intolerance [facility] (20 sources) Simvastatin; Translations: [SIMVASTATIN] Drug Allergy 5 Other: See Comments [facility] (20 sources) Lisinopril Drug Allergy 2 Other [facility] (20 sources) pramipexole di-HCl; Translations: [pramipexole di-HCl] Allergy to substance 2 Other [facility] (1 source) ezetimibe Drug Allergy 0 [facility] (1 source) Pramipexole Drug Allergy 0 [facility] (2 sources) celecoxib; Translations: [CELECOXIB] Drug Allergy 2 [facility] [place] [facility] (1 source) alfuzosin Drug Allergy 5 [facility] (1 source) ezetimibe Drug Allergy 5 [facility] (1 source) Lisinopril Drug Allergy 5 [facility] (1 source) Simvastatin Drug Allergy [facility] Medications Current Medications Medication Drug Class(es) Dates Sig (Normalized) Sig (Original) acetaminophen 325 mg / HYDROcodone bitartrate 5 mg oral tablet (2 sources) Opioid Agonist Start: 05-12-2022 take 1 tablet by mouth every six hours as needed Hydrocodone-Aceta minophen Active 1 TABLET PO EVERY 6 HOURS NEEDED 12 3 May 12, 2022 apixaban 5 mg oral tablet (20 sources) Factor Xa Inhibitor Start: 03-04-2025 take 2.5 mg by mouth twice daily Apixaban (Eliquis) 5 mg tablet Active 2.5 mg PO TWICE A DAY March 04, 2025 11:40am Start: 10-08-2024 End: 03-04-2025 take 1 tablet by mouth twice daily Apixaban (Eliquis) 5 mg tablet Discontinued 5 mg PO TWICE A DAY October 08, 2024 1:00am March 04, 2025 11:40am Start: 07-23-2024 End: 09-06-2024 take 1 tablet by mouth twice daily Apixaban (Eliquis) 5 mg tablet Discontinued 5 mg PO TWICE A DAY July 23, 2024 12:00am September 06, 2024 12:34pm On Hold: Until otherwise instructed Start: 07-17-2024 End: 07-23-2024 take 1 tablet by mouth twice daily Apixaban (Eliquis) 2.5 mg tablet Discontinued 2.5 mg PO TWICE A DAY July 17, 2024 12:00am July 23, 2024 3:37pm Start: 08-27-2023 End: 07-17-2024 take 1 tablet by mouth twice daily Apixaban (Eliquis) 5 mg tablet Discontinued 5 mg PO TWICE A DAY June 25, 2024 12:00am July 17, 2024 10:04am Start: 11-22-2019 End: 05-30-2023 take 1 tablet by mouth twice daily apixaban (ELIQUIS) 5 mg tab(s) Take 1 tablet by mouth twice daily. 90 tablet 3 06/17/2020 05/29/2023 Discontinued Comment on above: Take 1 tablet by che th twice daily. Blood-Glucose Meter ([employer] VERIO SYSTEM) misc (14 sources) Start: 07-10-2017 Blood-Glucose Meter (ONETOUCH VERIO SYSTEM[place] [facility] [place] directed. 1 Each 07/10/2017 Active Start: 07-10-2017 Blood-Glucose Meter (ONETOUCH VERIO SYSTEM) [facility] [place] Use as directed. 1 Each 0 07/10/2017 Active Comment on above: Use as directed. cbd topical (14 sources) Start: 08-21-2024 apply 3000 mg topically twice daily as needed for pain cbd topical Active 3000 mg TOPICAL 2 times daily as needed for pain (scale score 1-3) August 21, 2024 1:00am Start: 08-21-2024 cbd topical Ac tive 3000 mg TOPICAL August 21, 2024 1:00am celecoxib 200 mg oral capsule (1 source) Nonsteroidal Anti-inflammatory Drug take 1 capsule by mouth once daily Celecoxib 200 MG capsule Take 1 capsule by mouth daily. 0 Active citalopram 10 mg oral tablet (8 sources) Serotonin Reuptake Inhibitor Start: 03-26-20 take 1 tablet by mouth once daily Citalopram 10 mg tablet Active 10 mg PO DAILY March 26, 2025 12:00am Start: 03-04-2025 End: 03-26-2025 take 1 tablet by mouth once daily Citalopram 20 mg tablet Discontinued 20 mg PO daily March 04, 2025 12:00am March 26, 2025 1:50pm Start: 02-12-2025 take 1 tablet by che th once daily citalopram (CELEXA) 20 mg tablet Take 1 tablet by mouth once daily. 02/12/2025 Active cyanocobalamin, vitamin B-12 , (VITAMIN B-12 INJECTION) (14 sources) cyanocobalamin, vitamin B-12, (VITAMIN B-12 INJECTION) by INJECTION(UNSPECIFIED PARENTERAL ROUTES) route once every month. Active cyanocobalamin, vitamin B-12, (VITAMIN B-12 INJECTION) by INJECTION(UNSPECIFIED PARENTERAL ROUTES) route once every month. 0 Active Comment on above: by INJECTION(UNSPECI FIED PARENTERAL ROUTES) route once every month. diphenhydrAMINE hydrochloride 25 mg oral capsule (20 sources) Histamine-1 Receptor Antagonist Start : 11-23 take 50 mg by mouth at bedtime Diphenhydramine Hcl Active 50 MG PO AT BEDTIME November 23, 2022 10:12am Start: 07-28-2022 End: 05-29-2023 take 1 capsule by mouth at bedtime as needed Diphenhydramine Hcl 25 mg capsule Discontinued 25 mg PO AT BEDTIME as needed July 28, 2022 12:00am November 23, 2022 11:15am take 2 tablets by mo uth once daily diphenhydrAMINE HCl - 25 MG Oral Tablet TAKE 2 TABS NIGHTLY Quantity: 0 Refills: 0 Ordered: 01-Nov-2021 DO Active Comment on above: Take 25 mg by mouth daily at bedtime. 2 ml dupilumab 150 mg/ml auto-injector (20 sources) Interleukin-4 Receptor alpha Antagonist Start: 08-21-2024 Dupilumab (Dupixent Pen) 300 mg/2 mL pen injector Active 300 mg SC .every 14 days August 21, 2024 9:40am Start: 11-23-2022 End: 08-21-2024 Dupilumab (Dupixent Pen) 300 mg/2 mL pen injector Active 300 mg SC EVERY MONTH August 21, 2024 9:40am Start: 11-23-2022 Dupilumab (Dup ixent Pen) 300 mg/2 mL pen injector Active 300 MG SC every 2 weeks November 23, 2022 12:00am Start: 08-13-2020 Dupilumab (Dup ixent Pen) 300 mg/2 mL pen injector Active 300 MG SC every 2 weeks August 13, 2020 12:00am Dupixent 300 MG/ 2ML Subcutaneous Solution Pen-injector inject as directed every 3 weeks Quantity: 0 Refills: 0 Ordered: 01-Nov-2021 DO Active Dupixent 300 MG/ 2ML Subcutaneous Solution Pen-injector inject as directed every 2 weeks Quantity: 0 Refills: 0 Ordered: 16-Jul-2021 DO Active Dupilumab (DUPIXENT SC) (1 source) Dupilumab (DUPIX ENT SC) Inject under the skin every 14 days. 0 Active dupilumab (DUPIXENT SUBCUTAN EOUS) (14 sources) dupilumab (DUPIX ENT SUBCUTANEOUS) Inject subcutaneously as needed (taking every three weeks). 08/17/2021 reported taking every 3 weeks Active dupilumab (DUPIX ENT SUBCUTANEOUS) Inject subcutaneously as needed (taking every three weeks). 08/17/2021 reported taking every 3 weeks 0 Active Comment on above: Inject subcutaneousl y as needed (taking every three weeks). 08/17/2021 reported taking every 3 weeks levothyroxine sodium 0.05 mg oral capsule (20 sources) l-Thyroxine Start: 08-01-20 take 1 capsule by mouth once daily Levothyroxine 50 mcg capsule Active 50 ug PO DAILY August 01, 2023 12:00am Start: 05-18-2023 take 1 tablet by che th once daily in the morning Levothyroxine 50 MCG tablet TAKE 1 TABLET BY MOUTH EVERY MORNING, TAKE 30 MINUTES PRIOR TO FOOD, AND OTHER MEDICATIONS 0 05/18/2023 Active losartan potassium 25 mg oral tablet (20 sources) Angiotensin 2 Receptor Keeley Start: 04-17-2014 take 1 tablet by mouth once daily Losartan 25 MG tablet Active 25 mg PO DAILY April 17, 2014 12:00am take 0.5 tablet by mouth once da bebe Losartan 50 MG tablet Take 0.5 tablets by mouth daily. 0 Active Comment on above: TAKE 1 TABLET DAILY mecobalamin (20 sources) Start: 0 inject 09329 ug by intramuscular injection every month Mecobalamin (Vitamin B12) Active 59057 MCG IM MONTHLY August 12, 2020 11:00pm Start: 08-13-2020 inject 03091 ug by i ntramuscular injection every month Mecobalamin (Vitamin B12) Active 13062 MCG IM MONTHLY August 13, 2020 12:00am Start: 08-13-2020 inject 1 ug by intra muscular injection every month Mecobalamin (Vitamin B12) Active MCG IM MONTHLY August 13, 2020 12:00am psyllium 400 mg oral capsule (2 sources) Start: 03-26-2025 Psyllium Husk (Fiber (Psyllium Husk)) 0.4 gram capsule Active 0.8 g PO DAILY March 26, 2025 12:00am valACYclovir 500 mg oral tablet (20 sources) Herpesvirus Nucleoside Analog DNA Polymerase Inhibitor, Herpes Simplex Virus Nucleoside Analog DNA Polymerase Inhibitor, Herpes Zoster Virus Nucleoside Analog DNA Polymerase Inhibitor Start: 03-26-2025 take 1 tablet by mouth once daily Valacyclovir 500 mg tablet Active 500 mg PO DAILY March 26, 2025 12:00am Start: 01-22-2025 take 1 tablet by che th once daily valACYclovir (VALTREX) 500 mg tablet Take 1 tablet by mouth once daily. 01/22/2025 Active Start: 08-05-2024 End: 10-08-2024 Valacyclovir 1 gram tablet Discontinued 1000 mg PO Q12H as needed for Antiviral September 06, 2024 12:35pm October 08, 2024 9:15am Start: 11-29-2023 End: 01-03-2024 Valacyclovir 1 gram tablet Discontinued 2000 mg PO TWICE A DAY November 29, 2023 1:00am January 03, 2024 3:22pm Start: 11-29-2023 End: 01-03-2024 take 2000 mg by mouth twice daily Valacyclovir Discontinued 2000 MG PO TWICE A DAY November 29, 2023 1:00am January 03, 2024 3:22pm Start: 05-16-2023 Valacyclovir 1 g tablet PLEASE SEE ATTACHED FOR DETAILED DIRECTIONS 0 05/16/2023 Active Completed/Discontinued Medications Medication Drug Class(es) Dates Sig (Normalized) Sig (Original) acetaminophen 500 mg oral tablet (14 sources) Start: 07-31-2024 End: 09-06-2024 Acetaminophen 500 mg Tablet Discontinued 1000 mg PO THREE TIMES A DAY 0 July 31, 2024 12:00am September 06, 2024 12:34pm Do not take more than 3000 mg Tylenol in a 24-hour period. acyclovir 200 mg oral capsule (20 sources) Herpesvirus Nucleoside Analog DNA Polymerase Inhibitor, [...] daily. 0 10/11/2017 05/30/2023 Discontinued (Therapy completed) Start: 04-17-2014 take 400 mg by mouth twice daily Acyclovir Active 400 MG PO TWICE A DAY April 17, 2014 12:00am Comment on above: Take 2 capsules by m outh twice daily. (suppressive therapy) amLODIPine 5 mg oral tablet (14 sources) Dihydropyridine Calcium Channel Keeley Start: 06-25-20 End: 03-04-20 25 take 1 tablet by mouth at bedtime Amlodipine 5 mg tablet Discontinued 5 mg PO AT BEDTIME June 25, 2024 12:00am March 04, 2025 11:39am ascorbic acid 500 mg oral tablet (20 sources) Vitamin C Start: 10-12-20 End: 02-23-20 25 ascorbic acid(VITAMIN C 500 MG TAB) Take one (1) tablet twice daily. 0 10/12/2007 02/22/2025 Discontinued take 1 capsule by mouth twice da [...] above: Take one (1) tablet twice daily. aspirin 81 mg chewable tablet (20 sources) Platelet Aggregation Inhibitor, Nonsteroidal Anti-inflammatory Drug Start: 2 End: 2 take 1 tablet by mouth once daily Aspirin 81 mg Tablet,Chewable Discontinued 81 mg PO DAILY June 16, 2022 12:00am July 28, 2022 10:38am Start: 04-17-2014 End: 09-03-2014 take 1 tablet by mouth once daily Aspirin 81 MG Tab.Chew Discontinued 81 mg PO DAILY@0800 April 17, 2014 12:00am September 03, 2014 10:24am atorvastatin 20 mg oral tablet (20 sources) HMG-CoA Reductase Inhibitor Start: 11-29-2017 End: 2024 take 1 tablet by mouth at bedtime Atorvastatin 20 mg tablet Discontinued 20 mg PO AT BEDTIME June 04, 2021 12:00am 2024 12:29pm Start: 04-17-2014 take 20 mg by mouth once daily Atorvastatin Active 20 MG PO DAILY April 17, 2014 12:00am Comment on above: Take 1 tablet by che th once daily. baclofen 5 mg oral tablet (20 sources) gamma-Aminobutyric Acid-ergic Agonist Start: 07-22-2022 End: 07-28-2022 take 1 tablet by mouth three times daily as needed for muscle spasms Baclofen 5 mg tablet Discontinued 5 mg PO THREE TIMES A DAY as needed for muscle spasm July 22, 2022 12:00am July 28, 2022 10:38am take 1 tablet by mouth twice ronit ly baclofen 10 MG tablet Take 1 tablet by mouth 2 times daily. 0 Active benzonatate 100 mg oral capsule (2 sources) Non-narcotic Antitussive Start: 10-04-2023 End: 02-22-2025 take 1 capsule by mouth every eight hours as needed benzonatate (TESSALON PERLES) 100 mg capsule Take 1 capsule by mouth three times a day as needed for cough. 14 capsule 10/04/2023 02/22/2025 Discontinued Black Elderberry([place]-F lower) CAPS (9 sources) Black Elderberry([place]-F lower) CAPS Quantity: 0 Refills: 0 Ordered: 02-Sep-2021 DO Active calcium ascorbate 500 mg oral tablet (20 sources) Start: 08-01-2023 End: 2024 take 1 g by mouth once daily Ascorbate Calcium (Vitamin C) 500 mg tablet Discontinued 1 g PO DAILY August 01, 2023 10:31am 2024 12:28pm Start: 08-01-2023 take 1 g by mouth once daily A scorbate Calcium (Vitamin C) Active 1 GM PO DAILY August 01, 2023 10:31am Start: 08-01-2023 take 2000 mg by mout h once daily Ascorbate Calcium (Vitamin C) Active 2000 MG PO DAILY August 01, 2023 9:31am Start: 07-22-2022 End: 08-01-2023 take 1 tablet by mouth twice daily Ascorbate Calcium (Vitamin C) 500 mg tablet Discontinued 500 mg PO TWICE A DAY July 22, 2022 9:42am August 01, 2023 10:33am Start: 08-13-2020 End: 07-22-2022 take 4 tablets by mouth once daily Ascorbate Calcium (Vitamin C) 500 mg tablet Discontinued 2000 mg PO DAILY August 13, 2020 1:19pm July 22, 2022 9:43am Start: 08-13-2020 End: 07-22-2022 take 2000 mg by mouth once daily Ascorbate Calcium (Vitamin C) Discontinued 2000 MG PO DAILY August 13, 2020 1:19pm July 22, 2022 9:43am Start: 04-17-2014 End: 08-13-2020 take 1 tablet by mouth twice daily Ascorbate Calcium (Vitamin C) 500 MG tablet Discontinued 500 mg PO TWICE A DAY April 17, 2014 12:00am August 13, 2020 1:20pm cephalexin 500 mg oral capsule (15 sources) Cephalosporin Antibacterial Start: 01-03-2024 End: 06-25-2024 take 1 capsule by mouth twice daily Cephalexin 500 mg capsule Discontinued 500 mg PO TWICE A DAY January 03, 2024 12:00am June 25, 2024 10:02am cholecalciferol 0.025 mg oral capsule (20 sources) Vitamin D Start: 06-25-2024 End: 2024 take 1 capsule by mouth once daily Cholecalciferol (Vitamin D3) 25 mcg (1,000 unit) capsule Discontinued 2000 U PO DAILY June 25, 2024 10:01am 2024 12:28pm Start: 07-28-2022 End: 06-25-2024 take 1 capsule by mouth once daily Cholecalciferol (Vitamin D3) 25 mcg (1,000 unit) capsule Discontinued 1000 U PO DAILY July 28, 2022 10:37am June 25, 2024 10:02am Start: 08-13-2020 End: 07-28-2022 take 1 capsule by mouth once daily Cholecalciferol (Vitamin D3) 25 mcg (1,000 unit) capsule Discontinued 2000 U PO DAILY August 13, 2020 1:19pm July 28, 2022 10:39am Start: 04-21-2014 End: 08-13-2020 take 1 capsule by mouth once daily Cholecalciferol (Vitamin D3) 1,000 UNIT capsule Discontinued 1000 U PO DAILY April 21, 2014 12:00am August 13, 2020 1:20pm Start: 09-08-2010 Cholecalcifero l, Vitamin D3, 2,000 unit ORAL Cap Take 2,000 Units by mouth. 0 09/08/2010 Active take 1 tablet by che th once daily Vitamin D3 25 MCG (1000 UT) tablet Take 1 tablet by mouth daily. 0 Active take 1 capsule by mo ut twice daily Cholecalciferol 50 MCG (2000 UT) capsule Take 1,000 Units by mouth 2 times daily. 0 Active take 1 tablet by che th twice daily Vitamin D3 25 MCG (1000 UT) Oral Tablet take 1 tab twice daily Quantity: 0 Refills: 0 Ordered: 01-Nov-2021 DO Active Comment on above: Take 2,000 Units by mouth. docusate sodium 50 mg / sennosides, correction 8.6 mg oral tablet (14 sources) Start: 07-31-20 End: 09-06-20 Sennosides-Docusate Sodium (Stimulant Laxative Plus) 8.6-50 mg Tablet Discontinued 2 {tbl} PO TWICE A DAY 04 03July 31, 2024 12:00am September 06, 2024 12:34pm Take until first bowel movement, then as needed with iron supplement DULoxetine 60 mg delayed release oral capsule (20 sources) Serotonin and Norepinephrine Reuptake Inhibitor Start: 09-24-20 End: 12-09-19 take 1 capsule by mouth once daily Duloxetine 60 mg capsule,delayed release(DR/EC) Discontinued 60 mg PO daily September 24, 2024 1:00am 2024 12:29pm Start: 04-17-2014 End: 08-08-2024 take 1 capsule by mouth every other day Duloxetine 60 MG capsule Discontinued 60 mg PO .EVERY 2 DAYS April 17, 2014 12:00am August 08, 2024 12:37pm Start: 04-17-2014 take 60 mg by mouth twice mannie y Duloxetine Active 60 MG PO TWICE A DAY April 17, 2014 12:00am Comment on above: Take 60 mg by mouth twice daily. Dupixent 300 MG/2ML Subcutaneous Solution Pen-injector (1 source) Dupixent 300 MG/ 2ML Subcutaneous Solution Pen-injector inject as directed every 2 weeks Refills: 0 DO Active 2 x 2 ML Pen 0.8 ml enoxaparin sodium 100 mg/ml prefilled syringe (20 sources) Low Molecular Weight Heparin Start: 08-21-2024 End: 10-08-2024 Enoxaparin (Lovenox) 80 mg/0.8 mL syringe Discontinued 80 mg SC Q12H 16 September 19, 2024 11:50am October 08, 2024 9:14am Start: 08-08-2024 End: 08-21-2024 Enoxaparin 100 mg/mL Syringe Discontinued 85 mg SC TWICE A DAY August 08, 2024 12:00am August 21, 2024 5:01pm famotidine 20 mg oral tablet (20 sources) Histamine-2 Receptor Antagonist Start: 10-12-2022 Famotidine 20 MG Ora l Tablet Quantity: 90 Refills: 0 Ordered: 12-Oct-2022 DO Start : 12-Oct-2022 Active Start: 08-29-2022 End: 03-30-2023 take 1 tablet by mouth at bedtime Famotidine 20 mg tablet Discontinued 20 mg PO AT BEDTIME September 06, 2022 1:00am March 30, 2023 12:09pm Comment on above: Take 1 tablet by che th daily at bedtime. folic acid 1 mg oral tablet (20 sources) Start: 08-03-2023 End: 2024 take 1 tablet by mouth once daily Folic Acid 1 mg tablet Discontinued 1 mg PO DAILY January 16, 2024 3:40pm 2024 12:28pm Start: 03-31-2023 End: 08-01-2023 take 1 tablet by mouth once daily Folic Acid 1 mg tablet Discontinued 1 mg PO DAILY March 31, 2023 12:00am August 01, 2023 10:32am take 1 tablet by che th twice daily Folic acid 1 MG tablet Take 1 tablet by mouth 2 times daily. 0 Active gabapentin 600 mg oral tablet (20 sources) Anti-epileptic Agent Start: 07-23-2024 End: 2024 take 1 tablet by mouth three times daily Gabapentin 600 mg tablet Discontinued 600 mg PO THREE TIMES A DAY July 23, 2024 12:00am 2024 12:29pm Start: 08-01-2023 take 600 mg by mouth three times daily Gabapentin Active 600 MG PO THREE TIMES A DAY August 01, 2023 12:00am Start: 04-24-2023 End: 07-23-2024 take 1 capsule by mouth three times daily Gabapentin 300 mg capsule Discontinued 300 mg PO THREE TIMES A DAY August 01, 2023 12:00am July 23, 2024 3:39pm Comment on above: TAKE 1 CAP ON DAY 1. THEN TAKE 1 CAP TWICE A DAY ON DAY 2 AND MOVING FORWARD. Gas Relief Extra Strength CAPS (14 sources) Gas Relief Extra Strength CAPS TAKE DIRECTED. Quantity: 0 Refills: 0 Ordered: 01-Nov-2021 DO Active Gas Relief Extra Strength CAPS TAKE DIRECTED. Quantity: 0 Refills: 0 Ordered: 02-Sep-2021 DO Active gentamicin 3 mg/ml ophthalmic solution (2 sources) Start: 10-19-2021 Gentamicin Sul fate 0.3 % Ophthalmic Solution Quantity: 5 Refills: 0 Ordered: 19-Oct-2021 DO Start : 19-Oct-2021 Active guaiFENesin 200 mg oral tablet (20 sources) Start: 08-03-2023 End: 06-25-2024 take 1 tablet by mouth twice daily Guaifenesin 200 mg tablet Discontinued 200 mg PO TWICE A DAY August 03, 2023 12:00am June 25, 2024 10:02am Start: 07-22-2022 End: 09-06-2022 take 1 tablet by mouth twice daily, then take 1 tablet by mouth every twelve hours Guaifenesin (Mucinex) 600 mg tablet extended release 12hr Discontinued 600 mg PO TWICE A DAY July 22, 2022 12:00am September 06, 2022 11:32am take 600 mg by mouth twice daily GUAIFENESIN ORAL Take 600 mg by mouth twice daily. Active take 2 tablets by mo uth once daily guaiFENesin (Mucinex) 600 MG Tab SR 12 HR tablet SR Take 2 tablets by mouth daily. 0 Active Comment on above: Take 600 mg by mouth twice daily. Guaifenesin 600 MG TBCR (1 source) Guaifenesin [...] 0 Refills: 0 Ordered: 15-Dec-2020 DO Active ketoconazole 20 mg/ml medicated shampoo (20 sources) Azole Antifungal Start: 07-22-2022 End: 03-26-2025 Ketoconazole 2 % shampoo Discontinued 1 NMA TOPICAL TWICE A WEEK as needed for PRN September 06, 2022 11:32am March 26, 2025 1:47pm Start: 11-30-2017 ketoconazole ( NIZORAL) 2 % shampoo Apply 1 application to affected area once daily as needed. 240 mL 1 11/30/2017 Active Comment on above: Apply 1 application to affected area once daily as needed. lidocaine 0.05 mg/mg medicated patch (20 sources) Antiarrhythmic, Amide Local Anesthetic Start: 07-22-2022 End: 07-28-2022 Lidocaine 5 % adhesive patch,medicated Discontinued 1 NMA TOPICAL Q12H as needed July 22, 2022 12:00am July 28, 2022 10:39am leave on most painful area for up to 12 hrs loperamide hydrochloride 2 mg oral capsule (20 sources) Opioid Agonist Start: 09-06-2022 End: 11-23-2022 Loperamide (Anti-Diarrheal (Loperamide)) 2 mg capsule Discontinued 2 mg PO .COMPLEX September 06, 2022 1:00am November 23, 2022 11:14am 2 mg orally every 3 days; Start: 08-13-2020 take 2 mg by mouth e very other day Loperamide Active 2 MG PO .every other day August 13, 2020 12:00am take 1 capsule by mouth once Lop eramide HCl - 2 MG Oral Capsule TAKE 1 CAP EVERY THIRD DAY Quantity: 0 Refills: 0 Ordered: 01-Nov-2021 DO Active methocarbamol 500 mg oral tablet (14 sources) Muscle Relaxant Start: 10-22-2024 End: 2024 take 1 tablet by mouth three times daily as needed for pain Methocarbamol 500 mg tablet Discontinued 500 mg PO THREE TIMES A DAY as needed for pain/spasms October 22, 2024 1:00am 2024 12:30pm 24 hr metoprolol succinate 50 mg extended release oral tablet (14 sources) beta-Adrenergic Keeley Start: 11-07-2024 End: 03-26-2025 take 1 tablet by mouth once daily Metoprolol Succinate 50 mg tablet extended release 24 hr Discontinued mg PO DAILY November 07, 2024 1:00am March 26, 2025 1:48pm Drug Treatment Unknown - unknown (1 source) No information available. nortriptyline 10 mg oral capsule (20 sources) Tricyclic Antidepressant Start: 04-23-2020 End: 07-22-2022 take 20 mg by mouth at bedtime Nortriptyline Discontinued 20 MG PO AT BEDTIME April 23, 2020 12:00am July 22, 2022 9:43am Start: 12-22-2017 End: 05-30-2023 take 1 capsule by mouth at bedtime Nortriptyline 10 mg capsule Discontinued 10 mg PO AT BEDTIME July 22, 2022 9:40am March 30, 2023 12:08pm Comment on above: Take 1 capsule by [facility] daily at bedtime. nutricost manfred (14 sources) Start: 4 End: 5 take 750 mg by mouth once daily nutricost manfred Discontinued 750 mg PO DAILY August 21, 2024 1:00am 2024 12:31pm omeprazole 40 mg delayed release oral capsule (20 sources) Proton Pump Inhibitor Start: 3 End: take 1 capsule by mouth twice daily Omeprazole 40 mg capsule,delayed release(DR/EC) Discontinued 40 mg PO TWICE A DAY August 03, 2023 2:05pm 2024 12:30pm Start: 06-14-2022 End: 07-22-2022 take 1 capsule by mouth once daily Omeprazole 20 mg Capsule,Delayed Release(Dr/Ec) Discontinued 20 mg PO DAILY June 14, 2022 12:00am July 22, 2022 9:40am Start: 01-04-2022 End: 10-13-2023 take 1 capsule by mouth once daily Omeprazole 40 mg capsule,delayed release(DR/EC) Discontinued 40 mg PO DAILY July 22, 2022 12:00am August 03, 2023 2:09pm Omeprazole Magne sium 20 MG Oral Tablet Delayed Release Quantity: 0 Refills: 0 Ordered: 01-Nov-2021 DO Active Omeprazole Magne sium 20 MG Oral Tablet Delayed Release Quantity: 0 Refills: 0 Ordered: 02-Sep-2021 DO Active take 1 capsule by [facility] once daily Omeprazole 20 MG Oral Capsule Delayed Release TAKE 1 CAPSULE Daily Quantity: 0 Refills: 0 Ordered: 15-Dec-2020 DO Active Comment on above: Take 1 capsule by [facility] once daily. TAKE 1 CAPSULE DAILY oxyCODONE hydrochloride 5 mg oral tablet (20 sources) Opioid Agonist Start: End: take 5-10 mg by mouth every four hours as needed for pain Oxycodone 5 mg Tablet Discontinued 5 - 10 mg PO EVERY 4 HOURS NEEDED as needed for Pain Score 4-10 42 7 July 31, 2024 September 05, 2024 9:31am Start: 11-23-2022 End: 01-02-2023 take 1 capsule by mouth every eight hours as needed Oxycodone 5 mg capsule Discontinued 5 mg PO Q8H as needed November 23, 2022 1:00am January 02, 2023 11:02am Start: 06-16-2022 End: 07-28-2022 take 1 tablet by mouth every six hours as needed for pain Oxycodone 5 mg tablet Discontinued 5 mg PO EVERY 6 HOURS as needed for pain 28 7 June 16, 2022 July 28, 2022 10:39am Start: 05-09-2022 take 5 mg by mouth e very six hours Oxycodone Active 5 MG PO EVERY 6 HOURS 12 3 May 09, 2022 polysaccharide iron complex 150 mg oral capsule (20 sources) Start: 07-31-2024 End: 2024 Polysaccharide Iron Complex (Ferrex 150) 150 mg iron capsule Discontinued 150 mg PO DAILY 90 90 August 28, 2024 1:37pm 2024 12:30pm predniSONE 20 mg oral tablet (3 sources) Start: 09-17-2021 predniSONE 20 MG Oral Tablet Quantity: 20 Refills: 0 Ordered: 17-Sep-2021 DO Start : 17-Sep-2021 Complete rOPINIRole 1 mg oral tablet (20 sources) Nonergot Dopamine Agonist Start: 11-01-2022 take 1 tablet by mouth three times daily rOPINIRole HCl - 1 MG Oral Tablet TAKE 1 TABLET THREE TIMES A DAY Quantity: 270 Refills: 3 Ordered: 01-Nov-2022 Malick Weber MD Start : 01-Nov-2022 Active Start: 07-22-2022 End: 11-23-2022 take 1 tablet by mouth at bedtime Ropinirole 2 mg tablet Discontinued 2 mg PO AT BEDTIME July 28, 2022 10:35am November 23, 2022 9:36pm administer 1-3 hours before bedtime Start: 07-22-2022 End: 07-28-2022 take 4 mg by mouth at bedtime Ropinirole Discontinued 4 MG PO AT BEDTIME July 22, 2022 12:00am July 28, 2022 10:39am administer 1-3 hours before bedtime Start: 06-14-2022 End: 07-22-2022 take 1 tablet by mouth at bedtime Ropinirole 1 mg Tablet Discontinued 1 mg PO AT BEDTIME June 14, 2022 12:00am July 22, 2022 9:41am administer 1-3 hours before bedtime Start: 07-16-2021 End: 05-29-2023 rOPINIRole (REQUIP) 0.25 mg tablet 07/16/2021 05/29/2023 Discontinued Start: 07-16-2021 take 1 tablet by che th at bedtime rOPINIRole HCl - 1 MG Oral Tablet take 1 tablet by mouth at bedtime Quantity: 90 Refills: 3 Ordered: 30-Aug-2021 Malick Weber MD Start : 16-Jul-2021 Active SITagliptin 50 mg oral tablet (20 sources) Dipeptidyl Peptidase 4 Inhibitor Start: 10-29-2019 End: 08-01-2023 take 1 tablet by mouth once daily Sitagliptin Phosphate 50 MG tablet Discontinued 50 mg PO DAILY April 23, 2020 12:00am August 13, 2020 2:01pm Comment on above: Take 1 tablet by che th once daily. sulfamethoxazole 800 mg / trimethoprim 160 mg oral tablet (14 sources) Dihydrofolate Reductase Inhibitor Antibacterial, Sulfonamide Antimicrobial Start: 11-07-2024 End: 11-14-2024 Sulfamethoxazole- Trimethoprim (Bactrim Ds) 800-160 mg tablet Discontinued 1 {tbl} PO Q12H 14 7 November 07, 2024 1:00am November 13, 2024 1:00am November 14, 2024 1:09am tiZANidine 4 mg oral tablet (20 sources) Central alpha-2 Adrenergic Agonist Start: 08-03-2023 End: 09-06-2024 take 2-3 tablets by mouth at bedtime as needed Tizanidine 4 mg tablet Discontinued 0 .ROUTE .COMPLEX 270 August 19, 2024 9:26am September 06, 2024 12:34pm Take 2 to 3 tablets orally at bedtime PRN Start: 08-03-2023 End: 11-29-2023 take 1-2 tablets by mouth at bedtime as needed Tizanidine Discontinued 0 PO AT BEDTIME 60 August 03, 2023 12:00am November 29, 2023 4:38pm Take 1 to 2 tablets orally at bedtime PRN traMADol hydrochloride 50 mg oral tablet (20 sources) Opioid Agonist Start: 09-05-2024 End: 10-08-2024 take 1 tablet by mouth every six hours as needed Tramadol 50 mg tablet Discontinued 50 mg PO EVERY 6 HOURS as needed September 05, 2024 1:00am October 08, 2024 9:15am Start: 09-17-2021 traMADol HCl - 50 MG Oral Tablet Quantity: 15 Refills: 0 Ordered: 17-Sep-2021 DO Start : 17-Sep-2021 Complete Start: 04-17-2014 End: 09-03-2014 take 1 tablet by mouth once daily Tramadol (Ultram Er) 100 MG Tab.Er.24h Discontinued 100 mg PO DAILY April 17, 2014 12:00am September 03, 2014 10:25am verapamil hydrochloride 240 mg extended release oral tablet (20 sources) Calcium Channel Keeley Start: 07-05-2024 End: 10-08-2024 Verapamil 240 mg tablet extended release Discontinued 240 mg PO 1500 July 05, 2024 12:00am October 08, 2024 9:15am Start: 03-30-2023 verapamil 120 MG tablet Start: 03-30-2023 End: 07-05-2024 take 1 tablet by mouth once daily in the morning Verapamil 120 mg tablet extended release Discontinued 120 mg PO EVERY MORNING October 31, 2023 6:18pm January 16, 2024 3:42pm Comment on above: Take 120 mg by mouth every morning. vitamin b12 1 mg oral tablet (20 sources) Vitamin B12 Start: 11-29-2023 End: 2024 take 1 tablet by mouth once daily Cyanocobalamin (Vitamin B-12) (Vitamin B-12) 1,000 mcg tablet Discontinued 1000 ug PO DAILY November 29, 2023 1:00am 2024 12:28pm Start: 11-23-2022 End: 11-23-2022 inject 1000 ug by intramuscular injection every month Cyanocobalamin (Vitamin B-12) 1,000 mcg/mL kit Discontinued 1000 ug IM EVERY MONTH November 23, 2022 1:00am November 23, 2022 11:13am Start: 11-23-2022 End: 11-23-2022 inject 1000 ug by intramuscular injection every month Cyanocobalamin (Vitamin B-12) Discontinued 1000 MCG IM EVERY MONTH November 23, 2022 1:00am November 23, 2022 11:13am Start: 04-17-2014 End: 08-13-2020 Cyanocobalamin (Vitamin B-12 ) 1,000 MCG tablet, sublingual Discontinued 500 ug PO TWICE A DAY April 17, 2014 12:00am August 13, 2020 1:19pm Start: 04-17-2014 End: 08-13-2020 take 500 ug by mouth twice daily Cyanocobalamin (Vitam in B-12) Discontinued 500 MCG PO TWICE A DAY April 17, 2014 12:00am August 13, 2020 1:19pm cyanocobalamin 1 000 MCG tablet injection once [...] 0 Refills: 0 Ordered: 15-Dec-2020 DO Active vitamin b6 100 mg oral tablet (20 sources) Start: 08-01-2023 End: 2024 take 1 tablet by mouth once daily Pyridoxine (Vitamin B6) 100 mg tablet Discontinued 100 mg PO DAILY August 01, 2023 12:00am 2024 12:30pm Problems Active Problems Problem Classification Problem Date Documented Da te Episodic/Chronic Alcohol-related disorders (20 sources) Alcohol intake above recommended sensible limits; Translations: [Alcohol abuse, uncomplicated] Onset: 0 08-06-2020 Chronic Allergic reactions (2 sources) Dermatitis, unspecified; Translations: [Dermatitis, unspecified] Onset: 8 Episodic 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; Translations: [Embolism and thrombosis of unspecified artery] Onset: 4 Chronic Calculus of urinary tract (20 sources) Ureteric stone of lower third of ureter; Translations: [Calculus of ureter] 05-20-2022 Episodic Chronic kidney disease (20 sources) Chronic kidney disease stage 3; Translations: [Stage 3 chronic kidney disease] Onset: 7 Resolved: 2 10-29-2019 Chronic Comment on above: MEDICATION INDUCED Chronic kidney disease (3 sources) Chronic kidney disease; Translations: [Chronic kidney disease, stage 3a] Onset: 4 Coronary atherosclerosis and other heart disease (20 sources) Atypical angina; Translations: [Other forms of angina pectoris] 07-29-2022 Chronic Comment on above: syncopal episodes wi th diaphoresis Deficiency and other anemia (20 sources) Anemia; Translations: [Anemia, unspecified] 09-24-2024 Episodic Comment on above: Stool for occult blo od is negative, Hgb is improving, 12.5 today Diabetes mellitus with complications (1 source) Type 2 diabetes mellitus with diabetic chronic kidney disease; Translations: [Type 2 diabetes mellitus with diabetic chronic kidney disease] Onset: 4 Chronic Diabetes mellitus without complication (20 sources) Type 2 diabetes mellitus without complication; Translations: [Type 2 diabetes mellitus without complications] Onset: 7 06-07-2017 Chronic Disorders of lipid metabolism (20 sources) Mixed hyperlipidemia; Translations: [Mixed hyperlipidemia] Onset: 6 Resolved: 6 11-23-2015 Chronic Esophageal disorders (15 sources) Small's esophagus; Translations: [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] Onset: 2 12-02-2021 Chronic Essential hypertension (20 sources) Essential hypertension; Translations: [Essential (primary) hypertension] Onset: 1 Resolved: 7 11-23-2015 Chronic Fracture of lower limb (20 sources) Fracture of lateral malleolus; Translations: [Displaced fracture of lateral malleolus of right fibula, initial encounter for closed fracture] 07-28-2022 Episodic Comment on above: Surgical repair 11/06 Fracture of lower limb (2 sources) Closed fracture of lateral malleolus; Translations: [Nondisplaced fracture of lateral malleolus of left fibula, initial encounter for closed fracture] Onset: 5 02-22-2025 Episodic Gastrointestinal hemorrhage (2 sources) Gastrointestinal hemorrhage; Translations: [Hemorrhage of anus and rectum] 05-29-2023 Episodic Genitourinary symptoms and ill-defined conditions (20 sources) Retention of urine; Translations: [Retention of urine, unspecified] Onset: 1 Resolved: 7 04-25-2020 Episodic Hemorrhoids (2 sources) Internal hemorrhoids; Translations: [Other hemorrhoids] 05-29-2023 Episodic Hyperplasia of prostate (14 sources) Benign prostatic hyperplasia; Translations: [Benign prostatic hyperplasia without lower urinary tract symptoms] Onset: 7 11-18-2016 Chronic Immunizations and screening for infectious disease (20 sources) Encounter for immunization; Translations: [Patient encounter status] Onset: 1 07-22-2022 Episodic Malaise and fatigue (20 sources) Fatigue; Translations: [Chronic fatigue, unspecified] 08-01-2023 Chronic Noninfectious gastroenteritis (9 sources) Enteritis of small intestine; Translations: [Noninfective gastroenteritis and colitis, unspecified] 02-26-2025 Episodic Nonspecific chest pain (20 sources) Chest pain; Translations: [Chest pain, unspecified] 07-22-2022 Episodic Nutritional deficiencies (1 source) Vitamin D deficiency, unspecified; Translations: [Vitamin D deficiency, unspecified] Onset: 5 Chronic Osteoarthritis (17 sources) Degenerative joint disease involving multiple joints; Translations: [Polyosteoarthritis, unspecified] Onset: 3 11-23-2015 Chronic Other acquired deformities (7 sources) Scoliosis deformity of spine; Translations: [Scoliosis, unspecified] 10-22-2024 Chronic Other aftercare (20 sources) Anticoagulant control - finding; Translations: [terminal superintendent (current) use of anticoagulants] 05-17-2022 Episodic Other aftercare (14 sources) Long-term current use of anticoagulant; Translations: [custodial (current) use of anticoagulants] 08-13-2024 Episodic Other aftercare (1 source) Encounter for follow-up examination after completed treatment for conditions other than malignant neoplasm; Translations: [Encounter for follow-up examination after completed treatment for conditions other than malignant neoplasm] Onset: 5 Episodic Other circulatory disease (20 sources) Raynaud's disease; Translations: [Raynaud's syndrome without gangrene] Onset: 2 Resolved: 7 02-19-2012 Chronic Other circulatory disease (11 sources) Raynaud's syndrome without gangrene; Translations: [Raynaud's syndrome] 11-23-2022 Chronic Other circulatory disease (20 sources) H/O: hypertension; Translations: [Personal history of other diseases of circulatory system] Episodic Other circulatory disease (20 sources) Foot pulse absent; Translations: [Other specified symptoms and signs involving the circulatory and respiratory systems] 11-23-2022 Episodic Other connective tissue disease (20 sources) History of total knee arthroplasty; Translations: [Presence of left artificial knee joint] 07-30-2024 Chronic Other connective tissue disease (1 source) Presence of unspecified artificial knee joint; Translations: [Presence of unspecified artificial knee joint] Onset: 4 Chronic Other connective tissue disease (1 source) Presence of left artificial knee joint; Translations: [Presence of left artificial knee joint] Onset: 4 Chronic Other connective tissue disease (14 sources) Muscle pain; Translations: [Myalgia, unspecified site] 06-20-2016 Episodic Other connective tissue disease (14 sources) Fibromyalgia; Translations: [Fibromyalgia] 11-25-2016 Episodic Other diseases of veins and lymphatics (20 sources) Lymphedema of left lower limb; Translations: [Lymphedema, not elsewhere classified] 08-27-2023 Chronic Other gastrointestinal disorders (1 source) History of Small's esophagus; Translations: [Personal history of other diseases of the digestive system] Episodic Other gastrointestinal disorders (6 sources) Diarrhea of presumed infectious origin; Translations: [Diarrhea, unspecified] 02-25-2025 Episodic Other gastrointestinal disorders (15 sources) Diarrhea; Translations: [Diarrhea, unspecified] 02-26-2025 Episodic Other gastrointestinal disorders (1 source) Diarrhea, unspecified; Translations: [Diarrhea, unspecified] Onset: 5 Episodic Other hereditary and degenerative nervous system conditions (20 sources) Restless legs; Translations: [Restless legs syndrome (RLS)] 08-03-2023 Chronic Other hereditary and degenerative nervous system conditions (14 sources) Essential tremor; Translations: [Essential tremor] Onset: 6 11-23-2015 Chronic Other hereditary and degenerative nervous system conditions (8 sources) Restless legs syndrome; Translations: [Restless legs syndrome (RLS)] 08-03-2023 Chronic Other lower respiratory disease (1 source) Cough; Translations: [Acute cough] 10-04-2023 Episodic Other male genital disorders (14 sources) Male erectile dysfunction, unspecified; Translations: [Impotence of organic origin] Onset: 3 09-23-2013 Chronic Other male genital disorders (20 sources) H/O: male genital disorder; Translations: [Personal history of other diseases of male genital organs] 04-25-2020 Episodic Other nervous system disorders (20 sources) Polyneuropathy; Translations: [Polyneuropathy, unspecified] 11-23-2022 Chronic Other nervous system disorders (11 sources) Polyneuropathy, unspecified; Translations: [Unspecified hereditary and idiopathic peripheral neuropathy] 11-23-2022 Chronic Other nervous system disorders (3 sources) Other chronic pain; Translations: [Other chronic pain] Onset: 3 Chronic Other nervous system disorders (20 sources) Chronic pain; Translations: [Other chronic pain] 05-30-2023 Chronic Other nervous system disorders (14 sources) Walking disability; Translations: [Difficulty in walking, not elsewhere classified] 08-06-2024 Chronic Other nervous system disorders (1 source) Difficulty in walking, not elsewhere classified; Translations: [Difficulty in walking, not elsewhere classified] Onset: 4 Chronic Other non-traumatic joint disorders (4 sources) Acute ankle pain; Translations: [Pain in left ankle and joints of left foot] 02-22-2025 Episodic Other non-traumatic joint disorders (1 source) Pain in left ankle and joints of left foot; Translations: [Acute left ankle pain] Onset: 5 Episodic Other nutritional; endocrine; and metabolic disorders (20 sources) H/O: diabetes mellitus; Translations: [Personal history of other endocrine, metabolic, and immunity disorders] Episodic Other nutritional; endocrine; and metabolic disorders (20 sources) H/O: raised blood lipids; Translations: [Personal history of other endocrine, metabolic, and immunity disorders] Episodic Other nutritional; endocrine; and metabolic disorders (20 sources) Body mass index 25-29 - overweight; Translations: [Overweight] 08-13-2020 Episodic Other nutritional; endocrine; and metabolic disorders (14 sources) Adult failure to thrive syndrome; Translations: [Adult failure to thrive] 08-13-2024 Episodic Other skin disorders (20 sources) Localized swelling of left lower leg; Translations: [Localized swelling, mass and lump, left lower limb] 11-11-2019 Episodic Phlebitis; thrombophlebitis and thromboembolism (1 source) Chronic embolism and thrombosis of left femoral vein; Translations: [Chronic embolism and thrombosis of left femoral vein] Onset: 5 Chronic Rehabilitation care; fitting of prostheses; and adjustment [...] limb movement disorder] Chronic Residual codes; unclassified (20 sources) Obstructive sleep apnea syndrome; Translations: [Obstructive sleep apnea (adult) (pediatric)] Onset: 5 10-11-2021 Chronic Comment on above: INSPIRE IMPLANT/NONC OMPLIANT INSPIRE IMPLANT/NONC OMPLIANT/DOES NOT WORK PER PATIENT Residual codes; unclassified (14 sources) Treatment-emergent central sleep apnea; Translations: [Other sleep apnea] Onset: 5 04-19-2016 Chronic Residual codes; unclassified (4 sources) Obstructive sleep apnea (adult) (pediatric); Translations: [Obstructive sleep apnea (adult) (pediatric)] Onset: 3 Chronic Residual codes; unclassified (14 sources) Other specified health status; Translations: [Intolerance of continuous positive airway pressure (CPAP) ventilation] Episodic Residual codes; unclassified (14 sources) Insomnia; Translations: [Insomnia, unspecified] 01-16-2024 Episodic Spondylosis; intervertebral disc disorders; other back problems (20 sources) Degeneration of lumbar intervertebral disc; Translations: [Degeneration of intervertebral disc of lumbar region] Onset: 10-22-2024 Chronic Spondylosis; intervertebral disc disorders; other back problems (20 sources) Chronic back pain ; Translations: [Dorsalgia, unspecified] Onset: 7 11-18-2016 Episodic Comment on above: CHIROPRACTOR ON REGU LAR BASIS/DDD Sprains and strains (7 sources) Low back strain; Translations: [Strain of muscle, fascia and tendon of lower back, initial encounter] 10-22-2024 Episodic Superficial injury; contusion (20 sources) Contusion of back; Translations: [Contusion of unspecified back wall of thorax, initial encounter] 05-17-2022 Episodic Syncope (20 sources) Syncope; Translations: [Syncope and collapse] Episodic Unclassified (1 source) No current problems or disability 08-23-2017 Unclassified (1 source) Low back pain, unspecified; Translations: [Low back pain, unspecified] Onset: 5 Unclassified (1 source) Abdominal aortic aneurysm, without rupture, unspecified; Translations: [Abdominal aortic aneurysm, without rupture, unspecified] Onset: 5 Past or Other Problems Problem Classification Problem Date Documented Da te Episodic/Chronic Abdominal hernia (4 sources) Hernia of abdominal cavity; Translations: [Other specified abdominal hernia without obstruction or gangrene] Resolved: 12-02-2021 12-02-2021 Episodic Deficiency and other anemia (1 source) Anemia, unspecified; Translations: [Anemia, unspecified] Onset: 09-06-2024 Episodic Deficiency and other anemia (1 source) Iron deficiency anemia, unspecified; Translations: [Iron deficiency anemia, unspecified] Onset: 09-06-2024 Episodic Malaise and fatigue (20 sources) Fatigue; Translations: [Other fatigue] Onset: 08-12-2024 09-06-2022 Episodic Other acquired deformities (14 sources) Mallet finger; Translations: [Mallet finger of unspecified finger(s)] Onset: 05-09-2011 05-09-2011 Episodic Other aftercare (1 source) Other intermission coordinator (current) drug therapy; Translations: [Other skilled nursing (current) drug therapy] Onset: 10-17-2022 Episodic Other aftercare (1 source) custodial (current) use of oral hypoglycemic drugs; Translations: [custodial (current) use of oral hypoglycemic drugs] Onset: 10-17-2022 Episodic Other aftercare (2 sources) terminal superintendent (current) use of anticoagulants; Translations: [custodial (current) use of anticoagulants] Onset: 08-12-2024 Episodic Other circulatory disease (4 sources) Other specified symptoms and signs involving the circulatory and respiratory systems; Translations: [Other symptoms involving cardiovascular system] Onset: 09-25-2024 11-23-2022 Episodic Other connective tissue disease (1 source) Fibromyalgia; Translations: [Fibromyalgia] Onset: 10-17-2022 Episodic Other connective tissue disease (4 sources) Pain in finger; Translations: [Pain in unspecified finger(s)] Onset: 05-09-2011 Resolved: 01-03-2014 01-03-2014 Episodic Other connective tissue disease (1 source) Other specified soft tissue disorders; Translations: [Other specified soft tissue disorders] Onset: 09-02-2024 Episodic Other connective tissue disease (1 source) Pain in left lower leg; Translations: [Pain in left lower leg] Onset: 08-29-2024 Episodic Other connective tissue disease (1 source) Pain in left leg; Translations: [Pain in left leg] Onset: 08-09-2024 Episodic Other diseases of bladder and urethra (4 sources) Bladder neck obstruction; Translations: [Bladder-neck obstruction] Onset: 05-28-2007 Resolved: 01-03-2014 01-03-2014 Chronic Other diseases of bladder and urethra (4 sources) Overactive bladder; Translations: [Other neuromuscular dysfunction of bladder] Onset: 10-05-2009 Resolved: 02-25-2013 02-25-2013 Chronic Other diseases of bladder and urethra (4 sources) Postoperative urethral stricture; Translations: [Postoperative urethral stricture] Onset: 11-26-2007 Resolved: 01-03-2014 01-03-2014 Episodic Other male genital disorders (4 sources) Retrograde ejaculation; Translations: [Retrograde ejaculation] Onset: 09-19-2011 Resolved: 12-02-2021 12-02-2021 Episodic Other nutritional; endocrine; and metabolic disorders (1 source) Overweight; Translations: [Overweight] Onset: 10-17-2022 Episodic Other nutritional; endocrine; and metabolic disorders (1 source) Body mass index (BMI) 26.0-26.9, adult; Translations: [Body mass index [BMI] 26.0-26.9, adult] Onset: 10-17-2022 Episodic Other screening for suspected conditions (not mental disorders or infectious disease) (1 source) Other specified abnormal findings of blood chemistry; Translations: [Other specified abnormal findings of blood chemistry] Onset: 08-28-2024 Episodic Other skin disorders (14 sources) Excessive sweating; Translations: [Generalized hyperhidrosis] Onset: 10-15-2017 10-15-2017 Episodic Other skin disorders (4 sources) Ingrowing nail; Translations: [Ingrowing nail] Onset: 09-22-2009 Resolved: 01-03-2014 01-03-2014 Episodic Other skin disorders (1 source) Localized swelling, mass and lump, left lower limb; Translations: [Localized swelling, mass and lump, left lower limb] Onset: 11-18-2024 Episodic Phlebitis; thrombophlebitis and thromboembolism (20 sources) H/O: Deep vein thrombosis; Translations: [Personal history of venous thrombosis and embolism] Onset: 08-06-2020 08-06-2020 Episodic Comment on above: 10/2018 FROM GROIN-AN KLE, 2ND DVT. LAST DVT 08/2023. ON ELIQUIS S/P L knee replaceme nt, on EliquisDoppler on 08/28/2024 shows chronic DVT L femoral vein. S/P L knee replaceme nt, on EliquisDoppler on 08/28/2024 shows chronic DVT L femoral vein.D-dimers was normal on 12/02/2014 so Eliquis was changed to 2.5mg bid by Dr. Duran.Clinically stable. Screening and history of mental health and substance abuse codes (1 source) Personal history of nicotine dependence; Translations: [Personal history of nicotine dependence] Onset: 11-27-2024 Episodic Skin and subcutaneous tissue infections (4 sources) Cellulitis and abscess of toe; Translations: [Cellulitis of unspecified toe] Onset: 09-08-2009 Resolved: 01-03-2014 01-03-2014 Episodic Unclassified (20 sources) Prostate Tissues 05-06-2022 Unclassified (20 sources) inspire device implant 05-06-2022 Unclassified (20 sources) intracular lenses x2 05-06-2022 Viral infection (16 sources) Herpes zoster; Translations: [Zoster without complications] Onset: 08-12-2024 08-06-2024 Episodic Results Test Name Value Interpretation Reference Range Facility Gastroenterology Visit Repor ton 04-01-2025 Gastroenterology Visit Report Normal [facility] MR/PAT.ANEon 03-26-2025 MR/PAT.ANE Normal [facility] Abdomen/Pelvis WITH Contrast on 03-25-2025 Abdomen/Pelvis WITH Contrast Normal [facility] [id number] 03-17-2025 [facility] Misc. COMMENT Normal . [facility] Comment on above: Order Comment: [id number] 4STOOL CULTURE RT Result Comment: Test Ordered: [id number] Stool CultureSalmonella/Shigella Screen Note: CB Final report Reference Range: .Result 1 Comment CB Reference Range: .No Salmonella or Shigella recovered.Campylobacter Culture Note: CB Final report Reference Range: .Result 1 Comment CB Reference Range: .No Campylobacter species isolated.E coli Shiga Toxin EIA Negative CB Reference Range: NegativePerformed at: - [facility] [id number] Director: Juan Carson PhD, Phone: [phone] Performed By: #### L 7000.0750, L7000.0700, L7400.3300, M100.0605, L3410.9739 ####[facility] [address] [place], [place], [id number] Calprotectin, Stoolon [address] 26 ug/g Normal 0-120 [facility] Comment on above: Order Comment: CDIFF CANCELED B/C FORMED STOOL Result Comment: Conc entration Interpretation Follow-Up< 5 - 50 ug/g Normal None>50 -120 ug/g Borderline Re-evaluate in 4-6 weeks >120 ug/g Abnormal Repeat as clinically indicatedPerformed at: - [facility] [id number] Director: Zurdo Villasenor MD, Phone: [phone] Performed By: #### L 7000.0750, L7000.0700, L7400.3300, M100.0605, L3410.9992 ####[facility] [address] [place], [place], [id number] Giardia Lamblia, Stool EIAon 03-15-2025 Giardia Stool Negative Normal Negative [facility] Comment on above: Result Comment: Perf ormed at: [facility] [id number] Director: Zurdo Villasenor MD, Phone: [phone] at: [facility] [id number] Director: Juan Carson PhD, Phone: [phone] Performed By: #### L 7000.0750, L7000.0700, L7400.3300, M100.0605, L3410.9992 ####[facility] [address] [place], [place], [id number] L7000.0750on 03-15-2025 P ELASTASE,FECA > 800 Normal >200 [facility] Comment on above: Result Comment: Resu lt Units: ug Elast./g Severe Pancreatic Insufficiency: <100 Moderate Pancreatic Insufficiency: 100 - 200 Normal: >200 Performed By: #### L 7000.0750, L7000.0700, L7400.3300, M100.0605, L3410.9992 ####[facility] [address] [place], [address] Calprotectin stoolOrdered By : Debra Badillo on 03-12-2025 Calprotectin stool 26 ug/g 0-120 [facility] Comment on above: Concentration Interp retation Follow-Up< 5 - 50 ug/g Normal None>50 -120 ug/g Borderline Re-evaluate in 4-6 weeks >120 ug/g Abnormal Repeat as clinically indicatedPerformed at: [facility] [address] [id number] Director: Zurdo Villasenor MD, Phone: [phone] Giardia lamblia ag stool EIA Ordered By: Debra Badillo on 03-12-2025 G. lamblia Ag IA Ql (Stl) Negative Negative [facility] Comment on above: Performed at: [facility] [address] [id number] Director: Zurdo Villasenor MD, Phone: [phone] at: [facility] [id number] Director: Juan Carson PhD, Phone: [phone] Stool Lactoferrin/WBCon 02-14 WBCST Normal Reference Ran ge = Negative Fecal WBC Lactoferrin Negative: No Fecal WBC Lactoferrin present Normal [facility] Comment on above: Performed By: #### L 7000.0750, L7000.0700, L7400.3300, M100.0605, L3410.9992 ####[facility] [address] [place], [place], [id number] Stool lactoferrin detection by immunoassayOrdered By: Debra Badillo on 03-12-2025 Lactoferrin IA Ql (Stl) [facility] Stool pancreatic elastase me asurement (mass/mass)Ordered By: Debra Badillo on 03-12-2025 Elastase.pancreatic (Stl) [Mass/Mass] > 800 >200 [facility] Comment on above: Result Units: ug [address] [place] st./g Severe Pancreatic Insufficiency: <100 Moderate Pancreatic Insufficiency: 100 - 200 Normal: >200 Gastroenterology Visit Repor ton 03-07-2025 Gastroenterology Visit Report Normal [facility] Oncology Visit Reporton 02-14 Oncology Visit Report Normal [facility] Abdomen Limitedon 02-27-2025 Abdomen Limited Normal [facility] CBC-Complete Blood Cnt No Di ffon 02-27-2025 Erythrocyte distribution width (RBC) [Ratio] 13.3 % Normal 11.6-14.6 [facility] Comment on above: Performed By: #### L 100.0500 ####[facility] [address] [place], [address] Hematocrit (Bld) [Volume fraction] 43.5 % Normal 40-54 [facility] Comment on above: Performed By: #### L 100.0500 ####[facility] [address] [place], [address] Hemoglobin (Bld) [Mass/Vol] 14.5 g/dL Normal 13.0-16.5 [facility] Comment on above: Performed By: #### L 100.0500 ####[facility] [address] [place], [address] MCH (RBC) [Entitic mass] 34.7 pg High 27.0-32.0 [facility] Comment on above: Performed By: #### L 100.0500 ####[facility] [address] [place], [address] MCHC (RBC) [Mass/Vol] 33.3 g/dL Normal 32-36 [facility] Comment on above: Performed By: #### L 100.0500 ####[facility] [address] [place], [address] MCV (RBC) [Entitic vol] 104.1 fL High 80-94 [facility] Comment on above: Performed By: #### L 100.0500 ####[facility] [address] [place], [address] Platelet mean volume (Bld) [Entitic vol] 10.3 fL Normal 6.2-12.0 [facility] Comment on above: Performed By: #### L 100.0500 ####[facility] [address] [place], [address] Platelets (Bld) [#/Vol] 244 10*3/uL Normal 150-450 [facility] Comment on above: Performed By: #### L 100.0500 ####[facility] [address] [place], [address] RBC (Bld) [#/Vol] 4.18 10*6/uL Low 4.6-6.2 [facility] Comment on above: Performed By: #### L 100.0500 ####[facility] [address] [place], [address] RDW SD 51.0 fl High 35.1-43.9 [facility] Comment on above: Performed By: #### L 100.0500 ####[facility] [address] [place], [address] WBC (Bld) [#/Vol] 9.1 10*3/uL Normal 4.4-11.0 [facility] Comment on above: Performed By: #### L 100.0500 ####[facility] [address] [place], [address] Erythrocyte distribution wid th ratioOrdered By: Galileo Ohara on 02-27-2025 Erythrocyte distribution width (RBC) [Ratio] 13.3 % 11.6-14.6 [facility] Erythrocyte distribution wid th standard deviationOrdered By: Galileo Ohara on 02-27-2025 Erythrocyte distribution width (RBC) [Ratio] 51.0 fl High 35.1-43.9 [facility] Hematocrit Auto (Bld) [Volum e fraction]Ordered By: Galileo Ohara on 02-27-2025 Hematocrit (Bld) [Volume fraction] 43.5 % 40-54 [facility] Hemoglobin measurementOrdere d By: Galileo Ohara on 02-27-2025 Hemoglobin (Bld) [Mass/Vol] 14.5 g/dL 13.0-16.5 [facility] MCV (mean corpuscular volume ) determinationOrdered By: Galileo Ohara on 02-27-2025 MCV (RBC) [Entitic vol] 104.1 fL High 80-94 [facility] Mean corpuscular hemoglobin (MCH) determinationOrdered By: Galileo Ohara on 02-27-2025 MCH (RBC) [Entitic mass] 34.7 pg High 27.0-32.0 [facility] Mean corpuscular hemoglobin concentration (MCHC) determinationOrdered By: Galileo Ohara on 02-27-2025 MCHC (RBC) [Mass/Vol] 33.3 g/dL 32-36 [facility] Mean platelet volume determi nationOrdered By: Galileo Ohara on 02-27-2025 Platelet mean volume (Bld) [Entitic vol] 10.3 fL 6.2-12.0 [facility] Platelet countOrdered By: Keli Ohara on 02-27-2025 Platelets (Bld) [#/Vol] 244 10*3/uL 150-450 [facility] RBC Auto (Bld) [#/Vol]Ordere d By: Galileo Ohara on 02-27-2025 RBC (Bld) [#/Vol] 4.18 10*6/uL Low 4.6-6.2 [facility] White blood cell (WBC) count Ordered By: Galileo Ohara on 02-27-2025 WBC (Bld) [#/Vol] 9.1 10*3/uL 4.4-11.0 [facility] Abdomen Single Viewon 2024 Abdomen Single View Normal [facility] Gastroenterology Visit Repor ton 02-24-2025 Gastroenterology Visit Report Normal [facility] CNOVon 02-22-2025 CNOV Office Visit (UCWSTR ) -------- TEMO GARRISON ([id number]) 1940 M Date Time Provider Department 02/22/25 11:45 AM [facility] During your visit today, we recorded the following information about you: Temperature Pulse Respiration Blood pressure 99.5 degrees 87/minute 16/minute 122/74 Weight 79.8 kg Cuco Marquez MD 02/22/2025 1:37 PM Signed [facility] Subjective Temo Garrison is a 84 year old male. Patient presents with: left ankle pain: Fell yesterday Left ankle pain: Duration: tripped on a root yesterday and sprained his ankle Location: lateral more than medial left ankle Character: aching and sharp Radiation: No. Aggravating: bending, standing, twisting, and walking Relieving: ice, knee scooter Pain relievers: none Associated: Hx of left leg DVTx3, new swelling Pertinent negatives: Denies numbness Review of Systems Objective BP 122/74 Pulse 87 Temp 37.5 ?C (99.5 ?F) (Tympanic) Resp 16 Wt 79.8 kg (176 lb) SpO2 97% BMI 26.76 kg/m? Physical Exam Constitutional: General: He is not in acute distress. Musculoskeletal: Comments: ANKLE: left. Swelling present over entire ankle. No erythema, ecchymosis, or deformity. Range of motion: inversion - painful, eversion - painful, anterior drawer- painful. unable to bear weight, uses knee scooter Palpation: Medial malleolus non-painful, lateral malleolus painful, Dorsal proximal midfoot - non-painful, proximal 5th metatarsal non-painful, posterior calcaneus non-painful Neurological: Mental Status: He is alert. {ASSESSMENT/PLAN: 1. Closed nondisplaced fracture of lateral malleolus of left fibula, initial encounter - ICD9: 824.2, ICD10: S82.65XA (primary diagnosis) 2. Acute left ankle pain - ICD9: 719.47, ICD10: M25.572 - XR ANKLE GENERAL 3V AP/LAT/OBL LEFT nondisplaced left ankle oblique fibular malleolus fracture. Radiology interpretation is pending. The patient will be notified if there is a significant finding in the report not discussed at the time of the visit. Patient reports he had a similar fracture on the right ankle requiring surgery. He has walking boots, walkers, knee scooter, and crutches if needed. Treat with nonweightbearing, walking boot, compression (Josh wrap applied), and as needed analgesia. He will follow-up with [place] [facility] for suspected surgical fixture. Disc images may be obtained on Monday if need. Cuco Marquez MD Differential Diagnoses - Fibular fracture is more likely for the following reason(s): consistent with imaging Management I performed an independent interpretation of the following:imaging Imaging: My interpretation is X-ray results reviewed pending radiologist interpretation. Procedures Referring Provider: SELF [[id number]] Allergies As of Date: 02/22/2025 Noted Allergy Reaction FLOMAX (TAMSULOSIN) 06/01/2020 5 [...] Comments: Muscle pain and weakness Date Reviewed: 02/22/2025 Reviewed by: Neetu Ramos LPN - Fully Assessed Reason for Visit: left ankle pain [Other] Cmt: Fell yesterday Primary Visit Diagnosis:Closed nondisplaced fracture of lateral malleolus of left fibula, initial encounter [S82.65XA] Other Visit Diagnosis:Acute left ankle pain [M25.572] Order(s):XR ANKLE GENERAL 3V AP/LAT/OBL LEFT [[id number]] Order #: [id number] FUTURE Prescriptions as of 02/22/2025 - ELIQUIS 2.5 mg tab(s) Take 2.5 mg by mouth two times a day. - citalopram (CELEXA) 20 mg tablet Take 1 tablet by mouth once daily. - valACYclovir (VALTREX) 500 mg tablet Take 1 tablet by mouth once daily. - omeprazole (PRILOSEC) 40 mg capsule Take [...] mg by mouth twice daily. - lancets ([employer] Enterprises[employer]CH DELICA LANCETS) 30 gauge misc Use as directed to test glucose 3 times weekly. DX: E11.9 - dupilumab (DUPIXENT SUBCUTANEOUS) Inject subcutaneously as needed (taking every three weeks). 08/17/2021 reported taking every 3 weeks - cyanocobalamin, vitamin B-12, (VITAMIN B-12 INJECTION) by INJECTION(UNSPECIFIED PARENTERAL ROUTES) route once every month. - blood sugar diagnostic (ONETOUCH VERIO) test strip USE ON (more content not included)... Normal [facility] XR ANKLE 3V AP/LAT/OBL LTon 02-22-2025 XR ANKLE 3V AP/LAT/OBL LT * * *Final Report* * * DATE OF EXAM: Feb 22 2025 12:13PM WOX 5298 - XR ANKLE 3V AP/LAT/OBL LT / PROCEDURE REASON: Acute left ankle pain * * * * Physician Interpretation * * * * Examination: XR ANKLE 3V AP/LAT/OBL LT History: Acute left ankle pain Technique: XR ANKLE 3V AP/LAT/OBL LT Comparison: 01/24/2014 RESULT: Oblique nondisplaced fracture through the distal fibular metaphysis is seen. Overlying soft tissue swelling. Ankle mortise is maintained. Large calcaneal plantar enthesophyte is again noted. The remaining bony structures appear intact. IMPRESSION: OBLIQUE NONDISPLACED FRACTURE THROUGH THE DISTAL FIBULAR METAPHYSIS. Manager Social Media: MANE Transcribe Date/Time: Feb 22 2025 1:01P Dictated by : BAM GRAVES MD This examination was interpreted and the report reviewed and electronically signed by: BAM GRAVES MD on Feb 22 2025 1:02PM EST [id number] Normal [facility] XR Ankle - left AP and Later al and obliqueon 02-22-2025 IMPRESSION: OBLIQUE NONDISPLACED FRACTURE THROUGH THE DISTAL FIBULAR METAPHYSIS. Manager Social Media: MANE Transcribe Date/Time: Feb 22 2025 1:01P Dictated by : BAM GRAVES MD This examination was interpreted and the report reviewed and electronically signed by: BAM GRAVES MD on Feb 22 2025 1:02PM EST DIVISION OF RADIOLOGY * * *Final Report* * * DATE OF EXAM: Feb 22 2025 12:13PM WOX 5298 - XR ANKLE 3V AP/LAT/OBL LT / PROCEDURE REASON: Acute left ankle pain * * * * Physician Interpretation * * * * Examination: XR ANKLE 3V AP/LAT/OBL LT History: Acute left ankle pain Technique: XR ANKLE 3V AP/LAT/OBL LT Comparison: 01/24/2014 RESULT: Oblique nondisplaced fracture through the distal fibular metaphysis is seen. Overlying soft tissue swelling. Ankle mortise is maintained. Large calcaneal plantar enthesophyte is again noted. The remaining bony structures appear intact. DIVISION OF RADIOLOGY Provider, [facility] - 02/22/2025 * * *Final Report* * * DATE OF EXAM: Feb 22 2025 12:13PM WOX 5298 - XR ANKLE 3V AP/LAT/OBL LT / PROCEDURE REASON: Acute left ankle pain * * * * Physician Interpretation * * * * Examination: XR ANKLE 3V AP/LAT/OBL LT History: Acute left ankle pain Technique: XR ANKLE 3V AP/LAT/OBL LT Comparison: 01/24/2014 RESULT: Oblique nondisplaced fracture through the distal fibular metaphysis is seen. Overlying soft tissue swelling. Ankle mortise is maintained. Large calcaneal plantar enthesophyte is again noted. The remaining bony structures appear intact. IMPRESSION IMPRESSION: OBLIQUE NONDISPLACED FRACTURE THROUGH THE DISTAL FIBULAR METAPHYSIS. Manager Social Media: MANE Transcribe Date/Time: Feb 22 2025 1:01P Dictated by : BAM GRAVES MD This examination was interpreted and the report reviewed and electronically signed by: BAM GRAVES MD on Feb 22 2025 1:02PM [facility] Radiology Study observation (narrative) [facility] XR Ankle - left AP and Later al and obliqueOrdered By: [facility]cf Provider on 02-22-2025 [facility] Absolute lymphocyte countOrd ered By: Phoenix Duran on 02-17-2025 Lymphocytes Auto (Unsp spec) [#/Vol] 1.95 10*3/uL 0.83-4.51 [facility] Absolute neutrophil countOrd ered By: Phoenix Duran on 02-17-2025 Neutrophils (Bld) [#/Vol] 4.7 10*3/uL 2.0-7.7 [facility] Anion gap in Serum or Plasma Ordered By: Phoenix Duran on 02-17-2025 Anion gap [Moles/Vol] 9 mmol/L 5-15 [facility] Automated lymphocyte count a s percentage of total leukocytesOrdered By: Phoenix Duran on 02-17-2025 Lymphocytes/100 WBC Auto (Unsp spec) 25.9 % - [facility] BUN/creatinine ratioOrdered By: Phoenix Duran on 02-17-2025 Urea nitrogen/Creatinine [Mass ratio] 14.1 mg/mg 10- [facility] Basophil percentageOrdered B y: Phoenix Duran on 02-17-2025 Basophils/100 WBC (Bld) 0.7 % 0-1 [facility] Bilirubin, totalOrdered By: Phoenix Duran on 02-17-2025 Bilirubin [Mass/Vol] 0.62 mg/dL 0.00-1.[address] [facility] CBC W/Diff, Automatedon Absolute Lymph 1.95 X10 3/uL Normal 0.83-4.51 [facility] Comment on above: Performed By: #### L 501.9520, L506.1001, L500.4050, L100.0100 ####[facility] [address] [place], [address] Absolute Neut 4.7 X10 3/uL Normal 2.0-7.7 [facility] Comment on above: Performed By: #### L 501.9520, L506.1001, L500.4050, L100.0100 ####[facility] [address] [place], [address] Basophils/100 WBC (Bld) 0.7 % Normal 0-1 [facility] Comment on above: Performed By: #### L 501.9520, L506.1001, L500.4050, L100.0100 ####[facility] [address] [place], [address] Eosinophils/100 WBC (Bld) 0.9 % Normal 0-5 [facility] Comment on above: Performed By: #### L 501.9520, L506.1001, L500.4050, L100.0100 ####[facility] [address] [place], [address] Erythrocyte distribution width (RBC) [Ratio] 13.7 % Normal 11.6-14.6 [facility] Comment on above: Performed By: #### L 501.9520, L506.1001, L500.4050, L100.0100 ####[facility] [address] [place], [address] Hematocrit (Bld) [Volume fraction] 44.4 % Normal 40-54 [facility] Comment on above: Performed By: #### L 501.9520, L506.1001, L500.4050, L100.0100 ####[facility] [address] [place], [address] Hemoglobin (Bld) [Mass/Vol] 14.7 g/dL Normal 13.0-16.5 [facility] Comment on above: Performed By: #### L 501.9520, L506.1001, L500.4050, L100.0100 ####[facility] [address] [place], [address] IG% 0.400 Normal 0.0-0.9 [facility] Comment on above: Result Comment: IG% - Immature Granulocytes (promyelocytes, myelocytes andmetamyelocytes) > 1% indicates that a LEFT SHIFT is Present. Performed By: #### L 501.9520, L506.1001, L500.4050, L100.0100 ####[facility] [address] [place], [address] Lymphocytes/100 WBC (Bld) 25.9 % Normal 19-41 [facility] Comment on above: Performed By: #### L 501.9520, L506.1001, L500.4050, L100.0100 ####[facility] [address] [place], [address] MCH (RBC) [Entitic mass] 34.3 pg High 27.0-32.0 [facility] Comment on above: Performed By: #### L 501.9520, L506.1001, L500.4050, L100.0100 ####[facility] [address] [place], [address] MCHC (RBC) [Mass/Vol] 33.1 g/dL Normal 32-36 [facility] Comment on above: Performed By: #### L 501.9520, L506.1001, L500.4050, L100.0100 ####[facility] [address] [place], [address] MCV (RBC) [Entitic vol] 103.7 fL High 80-94 [facility] Comment on above: Performed By: #### L 501.9520, L506.1001, L500.4050, L100.0100 ####[facility] [address] [place], [address] Monocytes/100 WBC (Bld) 9.7 % Normal 0-10 [facility] Comment on above: Performed By: #### L 501.9520, L506.1001, L500.4050, L100.0100 ####[facility] [address] [place], [address] Neutrophils/100 WBC (Bld) 62.4 % Normal 47-70 [facility] Comment on above: Performed By: #### L 501.9520, L506.1001, L500.4050, L100.0100 ####[facility] [address] [place], [address] Nucleated RBC (Bld) [#/Vol] 0 10*3/uL Normal 0-5 [facility] Comment on above: Performed By: #### L 501.9520, L506.1001, L500.4050, L100.0100 ####[facility] [address] [place], [address] Platelet mean volume (Bld) [Entitic vol] 10.5 fL Normal 6.2-12.0 [facility] Comment on above: Performed By: #### L 501.9520, L506.1001, L500.4050, L100.0100 ####[facility] [address] [place], [address] Platelets (Bld) [#/Vol] 233 10*3/uL Normal 150-450 [facility] Comment on above: Performed By: #### L 501.9520, L506.1001, L500.4050, L100.0100 ####[facility] [address] [place], [address] RBC (Bld) [#/Vol] 4.28 10*6/uL Low 4.6-6.2 [facility] Comment on above: Performed By: #### L 501.9520, L506.1001, L500.4050, L100.0100 ####[facility] [address] [place], [address] RDW SD 52.9 fl High 35.1-43.9 [facility] Comment on above: Performed By: #### L 501.9520, L506.1001, L500.4050, L100.0100 ####[facility] [address] [place], [address] WBC (Bld) [#/Vol] 7.5 10*3/uL Normal 4.4-11.0 [facility] Comment on above: Performed By: #### L 501.9520, L506.1001, L500.4050, L100.0100 ####[facility] [address] [place], [address] Carbon dioxide, total [Moles /volume] in Central venous bloodOrdered By: Phoenix Duran on 02-17-2025 CO2 [Moles/Vol] 25.5 mmol/L 21.0-32.0 [facility] Chloride assayOrdered By: Ej Duran on 02-17-2025 Chloride [Moles/Vol] 104 mmol/L 98-[address] [facility] Comprehensive Metabolic Prof ilon 02-17-2025 Albumin [Mass/Vol] 4.0 g/dL Normal 3.4-4.8 [facility] Comment on above: Performed By: #### L 501.9520, L506.1001, L500.4050, L100.0100 ####[facility] [address] [place], [address] Albumin/Globulin [Mass ratio] 1.7 {ratio} Normal 0.9-2.4 [facility] Comment on above: Performed By: #### L 501.9520, L506.1001, L500.4050, L100.0100 ####[facility] [address] [place], [address] ALK PHOS 57 U/L Normal 40-129 [facility] Comment on above: Performed By: #### L 501.9520, L506.1001, L500.4050, L100.0100 ####[facility] [address] [place], [address] ALT [Catalytic activity/Vol] 11 U/L Normal <=46 [facility] Comment on above: Performed By: #### L 501.9520, L506.1001, L500.4050, L100.0100 ####[facility] [address] [place], [address] AST [Catalytic activity/Vol] 15 U/L Normal <=37 [facility] Comment on above: Performed By: #### L 501.9520, L506.1001, L500.4050, L100.0100 ####[facility] [address] [place], [address] Bilirubin [Mass/Vol] 0.62 mg/dL Normal 0.00-1.[address] [facility] Comment on above: Performed By: #### L 501.9520, L506.1001, L500.4050, L100.0100 ####[facility] [address] [place], [address] BUN/CRE 14.1 RATIO Normal 10-20 [facility] Comment on above: Performed By: #### L 501.9520, L506.1001, L500.4050, L100.0100 ####[facility] [address] [place], [address] Calcium [Mass/Vol] 8.9 mg/dL Normal 7.6-11.0 [facility] Comment on above: Performed By: #### L 501.9520, L506.1001, L500.4050, L100.0100 ####[facility] [address] [place], [address] Chloride [Moles/Vol] 104 mmol/L Normal 98-[address] [facility] Comment on above: Performed By: #### L 501.9520, L506.1001, L500.4050, L100.0100 ####[facility] [address] [place], [address] CO2 [Moles/Vol] 25.5 mmol/L Normal 21.0-32.0 [facility] Comment on above: Performed By: #### L 501.9520, L506.1001, L500.4050, L100.0100 ####[facility] [address] [place], [address] Creatinine [Mass/Vol] 1.77 mg/dL High 0.70-1.20 [facility] Comment on above: Performed By: #### L 501.9520, L506.1001, L500.4050, L100.0100 ####[facility] [address] [place], [address] GAP 9 Normal 5-15 [facility] Comment on above: Performed By: #### L 501.9520, L506.1001, L500.4050, L100.0100 ####[facility] [address] [place], [address] GFR/1.73 sq M.predicted among non-blacks MDRD (S/P/Bld) [Vol rate/Area] 38 mL/min/{1.73_m2} Low >60 [facility] Comment on above: Result Comment: mL/m in/1.73m2 CKD-EPI Creatinine Equation (2020) Performed By: #### L 501.9520, L506.1001, L500.4050, L100.0100 ####[facility] [address] [place], [address] Globulin (S) [Mass/Vol] 2.4 g/dL Normal 2.2-4.2 [facility] Comment on above: Performed By: #### L 501.9520, L506.1001, L500.4050, L100.0100 ####[facility] [address] [place], [address] Glucose [Mass/Vol] 112 mg/dL High 70-99 [facility] Comment on above: Performed By: #### L 501.9520, L506.1001, L500.4050, L100.0100 ####[facility] [address] [place], [address] Potassium [Moles/Vol] 4.8 mmol/L Normal 3.3-5.1 [facility] Comment on above: Performed By: #### L 501.9520, L506.1001, L500.4050, L100.0100 ####[facility] [address] [place], [address] Sodium [Moles/Vol] 138 mmol/L Normal 133-145 [facility] Comment on above: Performed By: #### L 501.9520, L506.1001, L500.4050, L100.0100 ####[facility] [address] [place], [address] T PROT 6.3 g/dL Normal 5.9-8.4 [facility] Comment on above: Performed By: #### L 501.9520, L506.1001, L500.4050, L100.0100 ####[facility] [address] [place], [address] Urea nitrogen [Mass/Vol] 25 mg/dL High 4-19 [facility] Comment on above: Performed By: #### L 501.9520, L506.1001, L500.4050, L100.0100 ####[facility] [address] [place], [address] Eosinophil percentageOrdered By: Phoenix Duran on 02-17-2025 Eosinophils/100 WBC (Bld) 0.9 % 0-5 [facility] Erythrocyte distribution wid th ratioOrdered By: Phoenix Duran on 02-17-2025 Erythrocyte distribution width (RBC) [Ratio] 13.7 % 11.6-14.6 [facility] Erythrocyte distribution wid th standard deviationOrdered By: Phoenix Duran on 02-17-2025 Erythrocyte distribution width (RBC) [Ratio] 52.9 fl High 35.1-43.9 [facility] Glomerular filtration rate ( GFR) estimation/1.73 sq m using serum, plasma, or whole bOrdered By: Phoenix Duran on 02-17-2025 GFR/1.73 sq M.predicted among non-blacks MDRD (S/P/Bld) [Vol rate/Area] 38 mL/min/{1.73_m2} Low >60 [facility] Comment on above: mL/min/1.73m2 CKD-EP I Creatinine Equation (2020) Hematocrit Auto (Bld) [Volum e fraction]Ordered By: Phoenix Duran on 02-17-2025 Hematocrit (Bld) [Volume fraction] 44.4 % 40-54 [facility] Hemoglobin measurementOrdere d By: Phoenix Duran 02-17-2025 Hemoglobin (Bld) [Mass/Vol] 14.7 g/dL 13.0-16.5 [facility] Immature granulocytes/100 WB C Auto (Bld)Ordered By: Phoenix Duran 02-17-2025 Immature granulocytes/100 WBC (Bld) 0.400 % 0.0-0.9 [facility] Comment on above: IG% - Immature Granu locytes (promyelocytes, myelocytes and metamyelocytes) > 1% indicates that a LEFT SHIFT is Present. Laboratory - Chemistry and C hemistry - challengeOrdered By: Phoenix Duran 02-17-2025 AST [Catalytic activity/Vol] 15 U/L <38 [facility] MCV (mean corpuscular volume ) determinationOrdered By: Phoenix Duran 02-17-2025 MCV (RBC) [Entitic vol] 103.7 fL High 80-94 [facility] Mean corpuscular hemoglobin (MCH) determinationOrdered By: Phoenix Duran 02-17-2025 MCH (RBC) [Entitic mass] 34.3 pg High 27.0-32.0 [facility] Mean corpuscular hemoglobin concentration (MCHC) determinationOrdered By: Phoenix Duran 02-17-2025 MCHC (RBC) [Mass/Vol] 33.1 g/dL 32-36 [facility] Mean platelet volume determi nationOrdered By: Phoenix Duran 02-17-2025 Platelet mean volume (Bld) [Entitic vol] 10.5 fL 6.2-12.0 [facility] Monocyte percentageOrdered B y: Phoenix Duran 02-17-2025 Monocytes/100 WBC (Bld) 9.7 % 0-10 [facility] Neutrophil percentageOrdered By: Phoenix Duran 02-17-2025 Neutrophils/100 WBC (Bld) 62.4 % 47-70 [facility] Nucleated red blood cell per centageOrdered By: Phoenix Duran on 02-17-2025 Nucleated RBC/100 WBC (Bld) [Ratio] 0 % 0-5 [facility] Platelet countOrdered By: Ej Duran on 02-17-2025 Platelets (Bld) [#/Vol] 233 10*3/uL 150-450 [facility] Potassium measurement (mass/ volume)Ordered By: Phoenix Duran on 02-17-2025 Potassium (Unsp spec) [Mass/Vol] 4.8 mmol/L 3.3-5.1 [facility] RBC Auto (Bld) [#/Vol]Ordere d By: Phoenix Duran on 02-17-2025 RBC (Bld) [#/Vol] 4.28 10*6/uL Low 4.6-6.2 [facility] Serum creatinine measurement (mass/volume)Ordered By: Phoenix Duran on 02-17-2025 Creatinine [Mass/Vol] 1.77 mg/dL High 0.70-1.20 [facility] Serum globulin measurementOr dered By: Phoenix Duran 02-17-2025 Globulin (S) [Mass/Vol] 2.4 g/dL 2.2-4.2 [facility] Serum glucose measurement (m ass/volume)Ordered By: Phoenix Duran 02-17-2025 Glucose [Mass/Vol] 112 mg/dL High 70-99 [facility] Serum or plasma alanine hall otransferase (ALT) measurementOrdered By: Phoenix Duran 02-17-2025 ALT [Catalytic activity/Vol] 11 U/L <47 [facility] Serum or plasma albumin gume urement (mass/volume)Ordered By: Phoenix Duran 02-17-2025 Albumin [Mass/Vol] 4.0 g/dL 3.4-4.8 [facility] Serum or plasma albumin/glob ulin mass ratioOrdered By: Phoenix Duran 02-17-2025 Albumin/Globulin [Mass ratio] 1.7 {ratio} 0.9-2.4 [facility] Serum or plasma alkaline dahiana sphatase measurementOrdered By: Phoenix Duran 02-17-2025 ALP [Catalytic activity/Vol] 57 U/L 40-129 [facility] Serum or plasma calcium gume urement (mass/volume)Ordered By: Phoenix Duran on 02-17-2025 Calcium [Mass/Vol] 8.9 mg/dL 7.6-11.0 [facility] Serum or plasma urea nitroge n measurement (mass/volume)Ordered By: Phoenix Duran on 02-17-2025 Urea nitrogen [Mass/Vol] 25 mg/dL High 4-19 [facility] Sodium levelOrdered By: Phoenix Duran on 02-17-2025 Sodium [Moles/Vol] 138 mmol/L 133-145 [facility] TSH DL <= 0.005 mIU/L QnOrde red By: Phoenix Duran on 02-17-2025 TSH Qn 1.610 uIU/mL 0.300-4.200 [facility] Thyroid Stim Hormone (TSH)on 02-17-2025 TSH 1.610 uIU/mL Normal 0.300-4.200 [facility] Comment on above: Performed By: #### L 501.9520, L506.1001, L500.4050, L100.0100 ####[facility] [address] [place], [place], [address] Total proteinOrdered By: Phoenix Duran on 02-17-2025 Protein [Mass/Vol] 6.3 g/dL 5.9-8.4 [facility] Vitamin D,25 Hydroxyon 02-17 Vitamin D 25-OH 45.9 ng/mL Normal 30-100 [facility] Comment on above: Result Comment: Ashley min D StatusDeficiency: <20 ng/mL (50nmol/L)Insufficiency: 20-30 ng/mL (50-75 nmol/L)Sufficiency: 30-100 ng/mL (75-250 nmol/L)Toxicity: >100 ng/mL (>250 nmol/L) Performed By: #### L 501.9520, L506.1001, L500.4050, L100.0100 ####[facility] [address] [place], [address] White blood cell (WBC) count Ordered By: Phoenix Duran on 02-17-2025 WBC (Bld) [#/Vol] 7.5 10*3/uL 4.4-11.0 [facility] Calprotectin, Stoolon [address] 59 ug/g Normal 0-120 [facility] Comment on above: Order Comment: Test( s) [id number], Neutral; [id number], Totalwas developed and its performance characteristicsdetermined by [employer]. It has not been cleared or approvedby the Food and Drug Administration. Result Comment: Conc entration Interpretation Follow-Up< 5 - 50 ug/g Normal None>50 -120 ug/g Borderline Re-evaluate in 4-6 weeks >120 ug/g Abnormal Repeat as clinically indicatedPerformed at: [address] [id number] Director: Juan Carson PhD, Phone: [phone] at: [address] [id number] Director: Zurdo Villasenor MD, Phone: [phone] Performed By: #### L 7000.0700, L7000.0300 ####[facility] [address] [place], [place], [address] Fecal Fat, Qualitativeon FATS, NEUTRAL Normal Normal . [facility] Comment on above: Order Comment: Test( s) [id number]-Nydo, Neutral; [id number]-Wztv, Totalwas developed and its performance characteristicsdetermined by [employer]. It has not been cleared or approvedby the Food and Drug Administration. Result Comment: Norm al (<60 Droplets/HPF) Performed By: #### L 7000.0700, L7000.0300 ####[facility] [address] [place], [address] FATS, TOTAL Normal Normal . [facility] Comment on above: Order Comment: Test( s) [id number]-Utqm, Neutral; [id number]-Txbw, Totalwas developed and its performance characteristicsdetermined by [employer]. It has not been cleared or approvedby the Food and Drug Administration. Result Comment: Norm al (<100 Droplets/HPF) Performed By: #### L 7000.0700, L7000.0300 ####[facility] [address] [place], [place], [id number] Calprotectin stoolOrdered By : Juan Peacock on 01-17-2025 Calprotectin stool 59 ug/g 0-120 [facility] Comment on above: Concentration Interp retation Follow-Up< 5 - 50 ug/g Normal None>50 -120 ug/g Borderline Re-evaluate in 4-6 weeks >120 ug/g Abnormal Repeat as clinically indicatedPerformed at: - [facility] [address] [id number] Director: Juan Carson PhD, Phone: [phone] at: - [facility] [id number] Director: Zurdo iVllasenor MD, Phone: [phone] Fecal fat detectionOrdered B y: uJan Peacock on 01-17-2025 Fat Ql (Stl) Normal . [facility] Comment on above: Normal (<100 Droplet s/HPF) No Panel InformationOrdered By: Juan Peacock on 01-17-2025 Stool Neutral Fats Normal . [facility] Comment on above: Normal (<60 Droplets /HPF) Anion gap in Serum or Plasma Ordered By: Refugio Haynes on 01-15-2025 Anion gap [Moles/Vol] 10 mmol/L 5-15 [facility] BUN/creatinine ratioOrdered By: Refugio Haynes on 01-15-2025 Urea nitrogen/Creatinine [Mass ratio] 15.9 mg/mg 10-20 [facility] CBC-Complete Blood Cnt No Di ffon 01-15-2025 Erythrocyte distribution width (RBC) [Ratio] 14.9 % High 11.6-14.6 [facility] Comment on above: Performed By: #### L 100.0500, L500.3600, L501.0900 ####[facility] [address] [place], [address] Hematocrit (Bld) [Volume fraction] 45.0 % Normal 40-54 [facility] Comment on above: Performed By: #### L 100.0500, L500.3600, L501.0900 ####[facility] [address] [place], [address] Hemoglobin (Bld) [Mass/Vol] 15.0 g/dL Normal 13.0-16.5 [facility] Comment on above: Performed By: #### L 100.0500, L500.3600, L501.0900 ####[facility] [address] [place], [address] MCH (RBC) [Entitic mass] 33.6 pg High 27.0-32.0 [facility] Comment on above: Performed By: #### L 100.0500, L500.3600, L501.0900 ####[facility] [address] [place], [address] MCHC (RBC) [Mass/Vol] 33.3 g/dL Normal 32-36 [facility] Comment on above: Performed By: #### L 100.0500, L500.3600, L501.0900 ####[facility] [address] [place], [address] MCV (RBC) [Entitic vol] 100.9 fL High 80-94 [facility] Comment on above: Performed By: #### L 100.0500, L500.3600, L501.0900 ####[facility] [address] [place], [address] Platelet mean volume (Bld) [Entitic vol] 11.1 fL Normal 6.2-12.0 [facility] Comment on above: Performed By: #### L 100.0500, L500.3600, L501.0900 ####[facility] [address] [place], [address] Platelets (Bld) [#/Vol] 252 10*3/uL Normal 150-450 [facility] Comment on above: Performed By: #### L 100.0500, L500.3600, L501.0900 ####[facility] [address] [place], [address] RBC (Bld) [#/Vol] 4.46 10*6/uL Low 4.6-6.2 [facility] Comment on above: Performed By: #### L 100.0500, L500.3600, L501.0900 ####[facility] [address] [place], [address] RDW SD 55.2 fl High 35.1-43.9 [facility] Comment on above: Performed By: #### L 100.0500, L500.3600, L501.0900 ####[facility] [address] [place], [address] WBC (Bld) [#/Vol] 8.7 10*3/uL Normal 4.4-11.0 [facility] Comment on above: Performed By: #### L 100.0500, L500.3600, L501.0900 ####[facility] [address] [place], [address] Carbon dioxide, total [Moles /volume] in Central venous bloodOrdered By: Refugio Haynes on 01-15-2025 CO2 [Moles/Vol] 24.9 mmol/L 21.0-32.0 [facility] Chloride assayOrdered By: Thomas Haynes on 01-15-2025 Chloride [Moles/Vol] 104 mmol/L 98-[address] [facility] Creatinine Unsp time (U) [Ma ss/Vol]Ordered By: Refugio Haynes on 01-15-2025 Creatinine (U) [Mass/Vol] 79.00 mg/dL 39.00-259.00 [facility] Erythrocyte distribution wid th (RBC) [Ratio]Ordered By: Refugio Haynes on 01-15-2025 Erythrocyte distribution width (RBC) [Entitic vol] 55.2 fL High 35.1-43.9 [facility] Erythrocyte distribution wid th ratioOrdered By: Refugio Haynes on 01-15-2025 Erythrocyte distribution width (RBC) [Ratio] 14.9 % High 11.6-14.6 [facility] Erythrocyte distribution wid th standard deviationOrdered By: Refugio Haynes on 01-15-2025 Erythrocyte distribution width (RBC) [Ratio] 55.2 fl High 35.1-43.9 [facility] GFR/1.73 sq M.predicted doe g non-blacks MDRD (S/P/Bld) [Vol rate/Area]Ordered By: Refugio Haynes on 01-15-2025 Estimated GFR (MDRD) Non-Af Amer 34 Low >60 [facility] Comment on above: mL/min/1.73m2 CKD-EP I Creatinine Equation (2020) Glomerular filtration rate ( GFR) estimation/1.73 sq m using serum, plasma, or whole bOrdered By: Refugio Haynes on 01-15-2025 GFR/1.73 sq M.predicted among non-blacks MDRD (S/P/Bld) [Vol rate/Area] 34 mL/min/{1.73_m2} Low >60 [facility] Comment on above: mL/min/1.73m2 CKD-EP I Creatinine Equation (2020) Hematocrit Auto (Bld) [Volum e fraction]Ordered By: Refugio Haynes on 01-15-2025 Hematocrit (Bld) [Volume fraction] 45.0 % 40-54 [facility] Hemoglobin measurementOrdere d By: Refugio Haynes on 01-15-2025 Hemoglobin (Bld) [Mass/Vol] 15.0 g/dL 13.0-16.5 [facility] MCV (mean corpuscular volume ) determinationOrdered By: Refugio Haynes on 01-15-2025 MCV (RBC) [Entitic vol] 100.9 fL High 80-94 [facility] Mean corpuscular hemoglobin (MCH) determinationOrdered By: Refugio Haynes on 01-15-2025 MCH (RBC) [Entitic mass] 33.6 pg High 27.0-32.0 [facility] Mean corpuscular hemoglobin concentration (MCHC) determinationOrdered By: Refugio Haynes on 01-15-2025 MCHC (RBC) [Mass/Vol] 33.3 g/dL 32-36 [facility] Mean platelet volume determi nationOrdered By: Refugio Haynes on 01-15-2025 Platelet mean volume (Bld) [Entitic vol] 11.1 fL 6.2-12.0 [facility] Platelet countOrdered By: Thomas Haynes on 01-15-2025 Platelets (Bld) [#/Vol] 252 10*3/uL 150-450 [facility] Potassium (Unsp spec) [Mass/ Vol]Ordered By: Refugio Haynes on 01-15-2025 Potassium [Moles/Vol] 4.5 mmol/L 3.3-5.1 [facility] Potassium measurement (mass/ volume)Ordered By: Refugio Haynes on 01-15-2025 Potassium (Unsp spec) [Mass/Vol] 4.5 mmol/L 3.3-5.1 [facility] Protein+Creatinine Ratio,Uri neon 01-15-2025 PROT:CRE RATIO 161 mg/g CRE Normal 0-200 [facility] Comment on above: Performed By: #### L 100.0500, L500.3600, L501.0900 ####[facility] [address] [place], [address] Protein (U) [Mass/Vol] 12.7 mg/dL High 0.0-12.0 [facility] Comment on above: Performed By: #### L 100.0500, L500.3600, L501.0900 ####[facility] [address] [place], [address] UR CREAT 79.00 mg/dL Normal 39.00-259.00 [facility] Comment on above: Performed By: #### L 100.0500, L500.3600, L501.0900 ####[facility] [address] [place], [address] Protein/Creatinine (U) [Mass ratio]Ordered By: Refugio Haynes on 01-15-2025 Urine Protein/Creatinine Ratio 161 mg/g CRE 0-200 [facility] RBC Auto (Bld) [#/Vol]Ordere d By: Refugio Haynes on 01-15-2025 RBC (Bld) [#/Vol] 4.46 10*6/uL Low 4.6-6.2 [facility] Random urine creatinine gume urement (mass/volume)Ordered By: Refugio Haynes on 01-15-2025 Creatinine Unsp time (U) [Mass/Vol] 79.00 mg/dL 39.00-259.00 [facility] Renal Profileon 01-15-2025 Albumin [Mass/Vol] 4.1 g/dL Normal 3.4-4.8 [facility] Comment on above: Performed By: #### L 100.0500, L500.3600, L501.0900 ####[facility] [address] [place], [address] BUN/CRE 15.9 RATIO Normal 10-20 [facility] Comment on above: Performed By: #### L 100.0500, L500.3600, L501.0900 ####[facility] [address] [place], [address] Calcium [Mass/Vol] 9.2 mg/dL Normal 7.6-11.0 [facility] Comment on above: Performed By: #### L 100.0500, L500.3600, L501.0900 ####[facility] [address] [place], [address] Chloride [Moles/Vol] 104 mmol/L Normal 98-[address] [facility] Comment on above: Performed By: #### L 100.0500, L500.3600, L501.0900 ####[facility] [address] [place], [address] CO2 [Moles/Vol] 24.9 mmol/L Normal 21.0-32.0 [facility] Comment on above: Performed By: #### L 100.0500, L500.3600, L501.0900 ####[facility] [address] [place], [address] Creatinine [Mass/Vol] 1.94 mg/dL High 0.70-1.20 [facility] Comment on above: Performed By: #### L 100.0500, L500.3600, L501.0900 ####[facility] [address] [place], [address] GAP 10 Normal 5-15 [facility] Comment on above: Performed By: #### L 100.0500, L500.3600, L501.0900 ####[facility] [address] [place], [address] GFR/1.73 sq M.predicted among non-blacks MDRD (S/P/Bld) [Vol rate/Area] 34 mL/min/{1.73_m2} Low >60 [facility] Comment on above: Result Comment: mL/m in/1.73m2 CKD-EPI Creatinine Equation (2020) Performed By: #### L 100.0500, L500.3600, L501.0900 ####[facility] [address] [place], [address] Glucose [Mass/Vol] 86 mg/dL Normal 70-99 [facility] Comment on above: Performed By: #### L 100.0500, L500.3600, L501.0900 ####[facility] [address] [place], [address] Phosphate [Mass/Vol] 3.6 mg/dL Normal 2.7-4.[address] [facility] Comment on above: Performed By: #### L 100.0500, L500.3600, L501.0900 ####[facility] [address] [place], [address] Potassium [Moles/Vol] 4.5 mmol/L Normal 3.3-5.1 [facility] Comment on above: Performed By: #### L 100.0500, L500.3600, L501.0900 ####[facility] [address] [place], [address] Sodium [Moles/Vol] 139 mmol/L Normal 133-145 [facility] Comment on above: Performed By: #### L 100.0500, L500.3600, L501.0900 ####[facility] [address] [place], [address] Urea nitrogen [Mass/Vol] 31 mg/dL High 4-19 [facility] Comment on above: Performed By: #### L 100.0500, L500.3600, L501.0900 ####[facility] [address] [place], [address] Serum creatinine measurement (mass/volume)Ordered By: Refugio Haynes on 01-15-2025 Creatinine [Mass/Vol] 1.94 mg/dL High 0.70-1.20 [facility] Serum glucose measurement (m ass/volume)Ordered By: Refugio Haynes on 01-15-2025 Glucose [Mass/Vol] 86 mg/dL 70-99 [facility] Serum or plasma albumin gume urement (mass/volume)Ordered By: Refugio Haynes on 01-15-2025 Albumin [Mass/Vol] 4.1 g/dL 3.4-4.8 [facility] Serum or plasma calcium gume urement (mass/volume)Ordered By: Refugio Haynes on 01-15-2025 Calcium [Mass/Vol] 9.2 mg/dL 7.6-11.0 [facility] Serum or plasma urea nitroge n measurement (mass/volume)Ordered By: Refugio Haynes on 01-15-2025 Urea nitrogen [Mass/Vol] 31 mg/dL High 4-19 [facility] Serum phosphorus measurement Ordered By: Refugio Haynes on 01-15-2025 Phosphorus Level 3.6 mg/dL 2.7-4.5 [facility] Sodium levelOrdered By: Randy Haynes on 01-15-2025 Sodium [Moles/Vol] 139 mmol/L 133-145 [facility] Urine protein measurement (m ass/volume)Ordered By: Refugio Haynes on 01-15-2025 Protein (U) [Mass/Vol] 12.7 mg/dL High 0.0-12.0 [facility] Urine protein/creatinine mas s ratioOrdered By: Refugio Haynes on 01-15-2025 Protein/Creatinine (U) [Mass ratio] 161 mg/g CRE 0-200 [facility] White blood cell (WBC) count Ordered By: Refugio Haynes on 01-15-2025 WBC (Bld) [#/Vol] 8.7 10*3/uL 4.4-11.0 [facility] L/S Spine Min 4 Viewson 12-15 L/S Spine Min 4 Views Normal [facility] Cardiovascular ultrasound re portOrdered By: Markie Mixon on 01-06-2025 Study report [facility] [address] [place] [address] AAA Screening 12/30/24 0805 MR#: [id number] Acct: [id number] Name: TEMO GARRISON Rep #:[id number] : 1940 84 From: Markie Gaitan Attending Dr: Dr. Phoenix Duran MD Status: REG CLI Ordering Dr: Phoenix Duran MD Date: Location: [facility] Sex: M C Admitted: Reason For Study Reason For Study: AAA Screening Aorta Measurements Aorta Doppler Measurements Proximal aorta measures2.06 x 2.03cm. in cross-sectional Peak systolic flow velocities within the proximal aorta axis. measure 76.8 cm/sec. Proximal aorta measures2.10cm. in longitudinal axis. Peak systolic flow velocities within the mid aorta measure Mid aorta measures2.68 x 2.75cm. in cross-sectional axis. 101.8 cm/sec. Mid aorta measures2.67cm. in longitudinal axis. Peak systolic flow velocities within the distal aorta Distal aorta measures2.13 x 2.05cm. in cross-sectional axis.measure 80.9 cm/sec. Distal aorta measures2.09cm. in longitudinal axis. Left Iliac Artery Left iliac artery measures 1.21 x 1.21 cm. in the cross-sectional axis. Left iliac artery measures 1.25 cm. in the longitudinal axis. Peak systolic velocity in the left iliac artery measures 87.6cm/sec. Right Iliac Artery Right iliac artery measures 1.41 x 1.27 cm. in the cross-sectional axis. Right iliac artery measures 1.38 cm. in the longitudinal axis. Peak systolic velocity in the right iliac artery measures 105.2 cm/sec. Procedure Aorta IVC Iliac vasculature or bypass grafts 68692. The exam was diagnostic. Technically difficult exam due to bowel gas. Exam performed in department. VL/AAA Screening Interpretation Summary Aorta patent, ectasia to 2.75 cm Right iliac artery patent, ectasia to 1.41 cm Left iliac artery patent, ectasia to 1.21 cm Ordering Physician: Phoenix Duran Chi Referring Physician: Phoenix Duran Chi Performed By: Keon Sanderson, RVT 01/06/25 1232 Date _ Markie Mixon MD CC: Dr. Phoenix Duran MD ~ Date Dictated: 12/30/24 08 Date Transcribed: 01/06/25 1232 Manager Social Media: Signed [facility] Work Phone: Abdomen Single Viewon 2024 Abdomen Single View Normal [facility] AAA Screeningon 12-30-2024 AAA Screening Normal [facility] Abdomen Single Viewon 2024 Abdomen Single View Normal [facility] Absolute lymphocyte countOrd ered By: Marlon Dimitry on 12-30-2024 Lymphocytes Auto (Unsp spec) [#/Vol] 2.49 10*3/uL 0.83-4.51 [facility] Absolute neutrophil countOrd ered By: Marlon Dimitry on 12-30-2024 Neutrophils (Bld) [#/Vol] 4.2 10*3/uL 2.0-7.7 [facility] Automated lymphocyte count a s percentage of total leukocytesOrdered By: Marlon Moraes on 12-30-2024 Lymphocytes/100 WBC Auto (Unsp spec) 32.3 % 19-41 [facility] Basophil percentageOrdered B y: Marlon Dimitry on 12-30-2024 Basophils/100 WBC (Bld) 0.8 % 0-1 [facility] CBC W/Diff, Automatedon 12-14 Absolute Lymph 2.49 X10 3/uL Normal 0.83-4.51 [facility] Comment on above: Performed By: #### L 501.6710, L100.0100, L101.9900 ####[facility] [address] [place], [address] Absolute Neut 4.2 X10 3/uL Normal 2.0-7.7 [facility] Comment on above: Performed By: #### L 501.6710, L100.0100, L101.9900 ####[facility] [address] [place], [address] Basophils/100 WBC (Bld) 0.8 % Normal 0-1 [facility] Comment on above: Performed By: #### L 501.6710, L100.0100, L101.9900 ####[facility] [address] [place], [address] Eosinophils/100 WBC (Bld) 2.6 % Normal 0-5 [facility] Comment on above: Performed By: #### L 501.6710, L100.0100, L101.9900 ####[facility] [address] [place], [address] Erythrocyte distribution width (RBC) [Ratio] 14.5 % Normal 11.6-14.6 [facility] Comment on above: Performed By: #### L 501.6710, L100.0100, L101.9900 ####[facility] [address] [place], [address] Hematocrit (Bld) [Volume fraction] 44.5 % Normal 40-54 [facility] Comment on above: Performed By: #### L 501.6710, L100.0100, L101.9900 ####[facility] [address] [place], [address] Hemoglobin (Bld) [Mass/Vol] 14.6 g/dL Normal 13.0-16.5 [facility] Comment on above: Performed By: #### L 501.6710, L100.0100, L101.9900 ####[facility] [address] [place], [address] IG% 0.500 Normal 0.0-0.9 [facility] Comment on above: Result Comment: IG% - Immature Granulocytes (promyelocytes, myelocytes andmetamyelocytes) > 1% indicates that a LEFT SHIFT is Present. Performed By: #### L 501.6710, L100.0100, L101.9900 ####[facility] [address] [place], [address] Lymphocytes/100 WBC (Bld) 32.3 % Normal 19-41 [facility] Comment on above: Performed By: #### L 501.6710, L100.0100, L101.9900 ####[facility] [address] [place], [address] MCH (RBC) [Entitic mass] 32.7 pg High 27.0-32.0 [facility] Comment on above: Performed By: #### L 501.6710, L100.0100, L101.9900 ####[facility] [address] [place], [address] MCHC (RBC) [Mass/Vol] 32.8 g/dL Normal 32-36 [facility] Comment on above: Performed By: #### L 501.6710, L100.0100, L101.9900 ####[facility] [address] [place], [address] MCV (RBC) [Entitic vol] 99.8 fL High 80-94 [facility] Comment on above: Performed By: #### L 501.6710, L100.0100, L101.9900 ####[facility] [address] [place], [address] Monocytes/100 WBC (Bld) 9.5 % Normal 0-10 [facility] Comment on above: Performed By: #### L 501.6710, L100.0100, L101.9900 ####[facility] [address] [place], [address] Neutrophils/100 WBC (Bld) 54.3 % Normal 47-70 [facility] Comment on above: Performed By: #### L 501.6710, L100.0100, L101.9900 ####[facility] [address] [place], [address] Nucleated RBC (Bld) [#/Vol] 0 10*3/uL Normal 0-5 [facility] Comment on above: Performed By: #### L 501.6710, L100.0100, L101.9900 ####[facility] [address] [place], [address] Platelet mean volume (Bld) [Entitic vol] 10.6 fL Normal 6.2-12.0 [facility] Comment on above: Performed By: #### L 501.6710, L100.0100, L101.9900 ####[facility] [address] [place], [address] Platelets (Bld) [#/Vol] 231 10*3/uL Normal 150-450 [facility] Comment on above: Performed By: #### L 501.6710, L100.0100, L101.9900 ####[facility] [address] [place], [address] RBC (Bld) [#/Vol] 4.46 10*6/uL Low 4.6-6.2 [facility] Comment on above: Performed By: #### L 501.6710, L100.0100, L101.9900 ####[facility] [address] [place], [address] RDW SD 53.2 fl High 35.1-43.9 [facility] Comment on above: Performed By: #### L 501.6710, L100.0100, L101.9900 ####[facility] [address] [place], [address] WBC (Bld) [#/Vol] 7.7 10*3/uL Normal 4.4-11.0 [facility] Comment on above: Performed By: #### L 501.6710, L100.0100, L101.9900 ####[facility] [address] [place], [address] CRPon 12-30-2024 C-REACTIVE PROT < 3.00 Normal 0.0-3.0 [facility] Comment on above: Performed By: #### L 501.6710, L100.0100, L101.9900 ####[facility] [address] [place], [place], [address] CRP [Mass/Vol]Ordered By: St mateus Moraes on 12-30-2024 C-Reactive Protein Extended Range < 3.00 mg/L 0.0-3.0 [facility] Eosinophil percentageOrdered By: Marlon Moraes on 12-30-2024 Eosinophils/100 WBC (Bld) 2.6 % 0-5 [facility] Erythrocyte Sed Rateon 12-30 SED RATE < 1 Normal 0-20 [facility] Comment on above: Performed By: #### L 501.6710, L100.0100, L101.9900 ####[facility] [address] [place], [place], [address] Erythrocyte distribution wid th ratioOrdered By: Marlon Moraes on 12-30-2024 Erythrocyte distribution width (RBC) [Ratio] 14.5 % 11.6-14.6 [facility] Erythrocyte distribution wid th standard deviationOrdered By: Marlon Moraes on 12-30-2024 Erythrocyte distribution width (RBC) [Entitic vol] 53.2 fL High 35.1-43.9 [facility] Erythrocyte distribution width (RBC) [Ratio] 53.2 fl High 35.1-43.9 [facility] Erythrocyte sedimentation ra teOrdered By: Marlon Moraes on 12-30-2024 ESR (Bld) [Velocity] mm/h 0-[address] [facility] Hematocrit Auto (Bld) [Volum e fraction]Ordered By: Marlon Moraes on 12-30-2024 Hematocrit (Bld) [Volume fraction] 44.5 % 40-54 [facility] Hemoglobin measurementOrdere d By: Marlon Moraes on 12-30-2024 Hemoglobin (Bld) [Mass/Vol] 14.6 g/dL 13.0-16.5 [facility] Immature granulocytes/100 WB C Auto (Bld)Ordered By: Marlon Moraes on 12-30-2024 Immature granulocytes/100 WBC (Bld) 0.500 % 0.0-0.9 [facility] Comment on above: IG% - Immature Granu locytes (promyelocytes, myelocytes and metamyelocytes) > 1% indicates that a LEFT SHIFT is Present. Lymphocytes Auto (Unsp spec) [#/Vol]Ordered By: Marlon Moraes on 12-30-2024 Lymphocytes (Bld) [#/Vol] 2.49 10*3/uL 0.83-4.51 [facility] Lymphocytes/100 WBC Auto (Un sp spec)Ordered By: Marlon Moraes on 12-30-2024 Lymphocytes/100 WBC (Bld) 32.3 % 19-41 [facility] MCV (mean corpuscular volume ) determinationOrdered By: Marlon Moraes on 12-30-2024 MCV (RBC) [Entitic vol] 99.8 fL High 80-94 [facility] Mean corpuscular hemoglobin (MCH) determinationOrdered By: Marlon Moraes on 12-30-2024 MCH (RBC) [Entitic mass] 32.7 pg High 27.0-32.0 [facility] Mean corpuscular hemoglobin concentration (MCHC) determinationOrdered By: Marlon Moraes on 12-30-2024 MCHC (RBC) [Mass/Vol] 32.8 g/dL 32-36 [facility] Mean platelet volume determi nationOrdered By: Marlon Moraes on 12-30-2024 Platelet mean volume (Bld) [Entitic vol] 10.6 fL 6.2-12.0 [facility] Monocyte percentageOrdered B y: Marlon Moraes on 12-30-2024 Monocytes/100 WBC (Bld) 9.5 % 0-10 [facility] Neutrophil percentageOrdered By: Marlon Moraes on 12-30-2024 Neutrophils/100 WBC (Bld) 54.3 % 47-70 [facility] Nucleated red blood cell per centageOrdered By: Marlon Moraes on 12-30-2024 Nucleated RBC/100 WBC (Bld) [Ratio] 0 % 0-5 [facility] Platelet countOrdered By: St mateus Moraes on 12-30-2024 Platelets (Bld) [#/Vol] 231 10*3/uL 150-450 [facility] RBC Auto (Bld) [#/Vol]Ordere d By: Marlon Moraes on 12-30-2024 RBC (Bld) [#/Vol] 4.46 10*6/uL Low 4.6-6.2 [facility] Serum or plasma C reactive p rotein measurement (mass/volume)Ordered By: Marlon Moraes on 12-30-2024 CRP [Mass/Vol] mg/L 0.0-3.0 [facility] White blood cell (WBC) count Ordered By: Marlon Moraes on 12-30-2024 WBC (Bld) [#/Vol] 7.7 10*3/uL 4.4-11.0 [facility] [employer] Decub and/or Erecton 12-26-2024 [employer] Decub and/or Erect Normal [facility] Chest PA and Lateralon 12-26 Chest PA and Lateral Normal [facility] Oncology Visit Reporton 11-17 Oncology Visit Report Normal [facility] D-Dimer Quantitative (DVT/PE )on 12-02-2024 D-DIMER QUANT 0.27 FEU/ug/m Normal 0.27-0.49 [facility] Comment on above: Result Comment: NORM AL D-Dimer level (<0.50) indicates no DVT or PE. Performed By: #### L 300.8000 ####[facility] [address] [place], [place], [address] D-dimer measurement for deep venous thrombosisOrdered By: Galileo Ohara on 12-02-2024 D-Dimer Quantitative (PE/DVT) 0.27 FEU/ug/m 0.27-0.49 [facility] Comment on above: NORMAL D-Dimer level (<0.50) indicates no DVT or PE. Kidney and Bladderon 025 Kidney and Bladder Normal [facility] 66-TB-Zjlmrms DOrdered By: Mj Haynes on 11-14-2024 Vitamin D 25-Hydroxy 61.6 ng/mL [facility] Comment on above: Vitamin D 25(OH) Sta tus Range Deficiency <20 ng/mL (50nmol/L) Insufficiency 20 - 30 ng/mL (50 - 75 nmol/L) Sufficiency 30 - 100 ng/mL (75 - 250 nmol/L) Toxicity >100 ng/mL (>250 nmol/L) Blood urea nitrogen (BUN)/cr eatinine ratioOrdered By: Refugio Haynes on 11-14-2024 Urea nitrogen/Creatinine [Mass ratio] 11.5 mg/mg 10-20 [facility] CBC-Complete Blood Cnt No Di ffon 11-14-2024 Erythrocyte distribution width (RBC) [Ratio] 16.0 % High 11.6-14.6 [facility] Comment on above: Performed By: #### L 500.3600, L509.1000, L501.0900, L100.0500, L506.1000 ####[facility] [address] [place], [address] Hematocrit (Bld) [Volume fraction] 43.0 % Normal 40-54 [facility] Comment on above: Performed By: #### L 500.3600, L509.1000, L501.0900, L100.0500, L506.1000 ####[facility] [address] [place], [address] Hemoglobin (Bld) [Mass/Vol] 13.2 g/dL Normal 13.0-16.5 [facility] [facility] Comment on above: Performed By: #### L 500.3600, L509.1000, L501.0900, L100.0500, L506.1000 ####[facility] [address] [place], [address] MCH (RBC) [Entitic mass] 30.7 pg Normal 27.0-32.0 [facility] Comment on above: Performed By: #### L 500.3600, L509.1000, L501.0900, L100.0500, L506.1000 ####[facility] [address] [place], [address] MCHC (RBC) [Mass/Vol] 30.7 g/dL Low 32-36 [facility] Comment on above: Performed By: #### L 500.3600, L509.1000, L501.0900, L100.0500, L506.1000 ####[facility] [address] [place], [address] MCV (RBC) [Entitic vol] 100.0 fL High 80-94 [facility] Comment on above: Performed By: #### L 500.3600, L509.1000, L501.0900, L100.0500, L506.1000 ####[facility] [address] [place], [address] Platelet mean volume (Bld) [Entitic vol] 11.2 fL Normal 6.2-12.0 [facility] Comment on above: Performed By: #### L 500.3600, L509.1000, L501.0900, L100.0500, L506.1000 ####[facility] [address] [place], [address] Platelets (Bld) [#/Vol] 212 10*3/uL Normal 150-450 [facility] Comment on above: Performed By: #### L 500.3600, L509.1000, L501.0900, L100.0500, L506.1000 ####[facility] [address] [place], [address] RBC (Bld) [#/Vol] 4.30 10*6/uL Low 4.6-6.2 [facility] Comment on above: Performed By: #### L 500.3600, L509.1000, L501.0900, L100.0500, L506.1000 ####[facility] [address] [place], [address] RDW SD 59.2 fl High 35.1-43.9 [facility] Comment on above: Performed By: #### L 500.3600, L509.1000, L501.0900, L100.0500, L506.1000 ####[facility] [address] [place], [address] WBC (Bld) [#/Vol] 7.6 10*3/uL Normal 4.4-11.0 [facility] Comment on above: Performed By: #### L 500.3600, L509.1000, L501.0900, L100.0500, L506.1000 ####[facility] [address] [place], [address] Carbon dioxide measurementOr dered By: Refugio Haynes on 11-14-2024 CO2 [Moles/Vol] 25.0 mmol/L 21.0-32.0 [facility] Chloride measurementOrdered By: Refugio Haynes on 11-14-2024 Chloride [Moles/Vol] 104 mmol/L 98-[address] [facility] Erythrocyte distribution wid th ratioOrdered By: Refugio Haynes on 11-14-2024 Erythrocyte distribution width (RBC) [Ratio] 16.0 % High 11.6-14.6 [facility] Erythrocyte distribution wid th standard deviationOrdered By: Refugio Haynes on 11-14-2024 Erythrocyte distribution width (RBC) [Entitic vol] 59.2 fL High 35.1-43.9 [facility] Erythrocyte distribution width (RBC) [Ratio] 59.2 fl High 35.1-43.9 [facility] Estimated glomerular filtrat ion rate (GFR) AmericanOrdered By: Refugio Haynes on 11-14-2024 Estimated GFR (MDRD) Amer 29 mL/min Low >60 [facility] Comment on above: GFR Calc Glomerular filtration rate ( GFR) estimationOrdered By: Refugio Haynes on 11-14-2024 Estimated GFR (MDRD) Non-Af Amer 24 mL/min Low >60 [facility] Comment on above: Non- GFR Calc GFR/1.73 sq M.predicted among non-blacks MDRD (S/P/Bld) [Vol rate/Area] 24 mL/min/{1.73_m2} Low >60 [facility] Comment on above: Non- GFR Calc Glucose measurementOrdered B y: Refugio Haynes on 11-14-2024 Glucose [Mass/Vol] 132 mg/dL High 74-106 [facility] Comment on above: Fasting Glucose resu lt greater than or equal to 126 mg/dL suggests DIABETES MELLITUS per A.D.A. criteria. Hematocrit Auto (Bld) [Volum e fraction]Ordered By: Refugio Haynes on 11-14-2024 Hematocrit (Bld) [Volume fraction] 43.0 % 40-54 [facility] Hemoglobin measurementOrdere d By: Refugio Haynes on 11-14-2024 Hemoglobin (Bld) [Mass/Vol] 13.2 g/dL 13.0-16.5 [facility] Hepatitis C Antibodyon 11-14 Hepatitis C AB Non-Reactive Normal Nonreactive [facility] Comment on above: Result Comment: Non Reactive: < 0.8 Equivocal: >/= 0.8 to < 1.0 Reactive: >/= 1.0The CDC requires that a reactive/equivocal HCV antibodyresult be sent out for confirmation. HCV Quant by PCRtesting. Performed By: #### L 3890.6300 ####[facility] [address] [place], [address] Hepatitis C virus antibody a ssayOrdered By: Phoenix Duran on 11-14-2024 Hepatitis C Antibody Non-Reactive Nonreactive [facility] Comment on above: Non Reactive: < 0.8 Equivocal: >/= 0.8 to < 1.0 Reactive: >/= 1.0The CDC requires that a reactive/equivocal HCV antibody result be sent out for confirmation. HCV Quant by PCR testing. Intact parathyroid hormone ( iPTH) measurementOrdered By: Refugio Haynes on 11-14-2024 Parathyroid Hormone (Intact) 46.7 pg/mL 18.4-80.1 [facility] MCV (mean corpuscular volume ) determinationOrdered By: Refugio Haynes on 11-14-2024 MCV (RBC) [Entitic vol] 100.0 fL High 80-94 [facility] Mean corpuscular hemoglobin (MCH) determinationOrdered By: Refugio Haynes on 11-14-2024 MCH (RBC) [Entitic mass] 30.7 pg 27.0-32.0 [facility] Mean corpuscular hemoglobin concentration (MCHC) determinationOrdered By: Refugio Haynes on 11-14-2024 MCHC (RBC) [Mass/Vol] 30.7 g/dL Low 32-36 [facility] Mean platelet volume determi nationOrdered By: Refugio Haynes on 11-14-2024 Platelet mean volume (Bld) [Entitic vol] 11.2 fL 6.2-12.0 [facility] PTHINon 11-14-2024 PTH 46.7 pg/mL Normal 18.4-80.1 [facility] Comment on above: Performed By: #### L 500.3600, L509.1000, L501.0900, L100.0500, L506.1000 ####[facility] [address] [place], [address] Phosphorus measurementOrdere d By: Refugio Haynes on 11-14-2024 Phosphorus Level 2.6 mg/dL 2.5-4.9 [facility] Platelet countOrdered By: Thomas Haynes on 11-14-2024 Platelets (Bld) [#/Vol] 212 10*3/uL 150-450 [facility] Potassium measurementOrdered By: Refugio Haynes on 11-14-2024 Potassium [Moles/Vol] 4.4 mmol/L 3.5-5.1 [facility] Protein+Creatinine Ratio,Uri neon 11-14-2024 PROT:CRE RATIO 399 mg/g CRE High 0-200 [facility] Comment on above: Performed By: #### L 500.3600, L509.1000, L501.0900, L100.0500, L506.1000 ####[facility] [address] [place], [address] Protein (U) [Mass/Vol] 26.1 mg/dL High <11.9 [facility] Comment on above: Performed By: #### L 500.3600, L509.1000, L501.0900, L100.0500, L506.1000 ####[facility] [address] [place], [address] UR CREAT 65.40 mg/dL Normal NO RANGE EST. [facility] Comment on above: Performed By: #### L 500.3600, L509.1000, L501.0900, L100.0500, L506.1000 ####[facility] [address] [place], [address] Protein/Creatinine (U) [Mass ratio]Ordered By: Refugio Haynes on 11-14-2024 Urine Protein/Creatinine Ratio 399 mg/g CRE High 0-200 [facility] RBC Auto (Bld) [#/Vol]Ordere d By: Refugio Haynes on 11-14-2024 RBC (Bld) [#/Vol] 4.30 10*6/uL Low 4.6-6.2 [facility] Random urine protein measure mentOrdered By: Refugio Haynes on 11-14-2024 Protein (U) [Mass/Vol] 26.1 mg/dL High 0.0-11.8 [facility] Renal Profileon 11-14-2024 Albumin [Mass/Vol] 3.9 g/dL Normal 3.2-5.0 [facility] Comment on above: Performed By: #### L 500.3600, L509.1000, L501.0900, L100.0500, L506.1000 ####[facility] [address] [place], [address] BUN/CRE 11.5 RATIO Normal 10-20 [facility] Comment on above: Performed By: #### L 500.3600, L509.1000, L501.0900, L100.0500, L506.1000 ####[facility] [address] [place], [address] CA,Total 8.9 mg/dL Normal 8.5-10.1 [facility] Comment on above: Performed By: #### L 500.3600, L509.1000, L501.0900, L100.0500, L506.1000 ####[facility] [address] [place], [address] Chloride [Moles/Vol] 104 mmol/L Normal 98-[address] [facility] Comment on above: Performed By: #### L 500.3600, L509.1000, L501.0900, L100.0500, L506.1000 ####[facility] [address] [place], [address] CO2 [Moles/Vol] 25.0 mmol/L Normal 21.0-32.0 [facility] Comment on above: Performed By: #### L 500.3600, L509.1000, L501.0900, L100.0500, L506.1000 ####[facility] [address] [place], [address] Creatinine [Mass/Vol] 2.70 mg/dL High 0.70-1.30 [facility] Comment on above: Result Comment: The validity of the calculated GFR GFRAA in patients over70 years has not been determined. Clinical correlation isessential. Performed By: #### L 500.3600, L509.1000, L501.0900, L100.0500, L506.1000 ####[facility] [address] [place], [address] EST GFR - AA 29 mL/min Low >60 [facility] Comment on above: Result Comment: Afri can Japanese GFR Calc Performed By: #### L 500.3600, L509.1000, L501.0900, L100.0500, L506.1000 ####[facility] [address] [place], [address] GFR/1.73 sq M.predicted among non-blacks MDRD (S/P/Bld) [Vol rate/Area] 24 mL/min/{1.73_m2} Low >60 [facility] Comment on above: Result Comment: Non- GFR Calc Performed By: #### L 500.3600, L509.1000, L501.0900, L100.0500, L506.1000 ####[facility] [address] [place], [address] Glucose [Mass/Vol] 132 mg/dL High 74-106 [facility] Comment on above: Result Comment: Fast ing Glucose result greater than or equal to 126 mg/dLsuggests DIABETES MELLITUS per A.D.A. criteria. Performed By: #### L 500.3600, L509.1000, L501.0900, L100.0500, L506.1000 ####[facility] [address] [place], [address] Phosphate [Mass/Vol] 2.6 mg/dL Normal 2.5-4.[address] [facility] Comment on above: Performed By: #### L 500.3600, L509.1000, L501.0900, L100.0500, L506.1000 ####[facility] [address] [place], [address] Potassium [Moles/Vol] 4.4 mmol/L Normal 3.5-5.1 [facility] Comment on above: Performed By: #### L 500.3600, L509.1000, L501.0900, L100.0500, L506.1000 ####[facility] [address] [place], [address] Sodium [Moles/Vol] 136 mmol/L Normal 136-145 [facility] Comment on above: Performed By: #### L 500.3600, L509.1000, L501.0900, L100.0500, L506.1000 ####[facility] [address] [place], [address] Urea nitrogen [Mass/Vol] 31 mg/dL High 05-02 [facility] Comment on above: Performed By: #### L 500.3600, L509.1000, L501.0900, L100.0500, L506.1000 ####[facility] [address] [place], [address] Serum or plasma albumin gume urement (mass/volume)Ordered By: Refugio Haynes on 11-14-2024 Albumin [Mass/Vol] 3.9 g/dL 3.2-5.0 [facility] Serum or plasma calcium gume urement (mass/volume)Ordered By: Refugio Haynes on 11-14-2024 Calcium [Mass/Vol] 8.9 mg/dL 8.5-10.1 [facility] Serum or plasma creatinine m easurement (mass/volume)Ordered By: Refugio Haynes on 11-14-2024 Creatinine [Mass/Vol] 2.70 mg/dL High 0.70-1.30 [facility] Comment on above: The validity of the calculated GFR & GFRAA in patients over 70 years has not been determined. Clinical correlation is essential. Serum or plasma urea nitroge n measurement (mass/volume)Ordered By: Refugio Haynes on 11-14-2024 Urea nitrogen [Mass/Vol] 31 mg/dL High 05-02 [facility] Sodium levelOrdered By: Randy Haynes on 11-14-2024 Sodium [Moles/Vol] 136 mmol/L 136-145 [facility] Urine creatinine measurement (mass/volume)Ordered By: Refugio Haynes on 11-14-2024 Creatinine (U) [Mass/Vol] 65.40 mg/dL NO RANGE EST. [facility] Urine protein/creatinine mas s ratioOrdered By: Refugio Haynes on 11-14-2024 Protein/Creatinine (U) [Mass ratio] 399 mg/g CRE High 0-200 [facility] Vitamin D,25 Hydroxyon 11-14 Vitamin D 25-OH 61.6 ng/mL Normal [facility] Comment on above: Result Comment: Ashley min D 25(OH) Status Range Deficiency <20 ng/mL (50nmol/L) Insufficiency 20 - 30 ng/mL (50 - 75 nmol/L) Sufficiency 30 - 100 ng/mL (75 - 250 nmol/L) Toxicity >100 ng/mL (>250 nmol/L) Performed By: #### L 500.3600, L509.1000, L501.0900, L100.0500, L506.1000 ####[facility] [address] [place], [address] White blood cell (WBC) count Ordered By: Refugio Haynes on 11-14-2024 WBC (Bld) [#/Vol] 7.6 10*3/uL 4.4-11.0 [facility] Urgent Care Visit Reporton 0 11-07-2024 Urgent Care Visit Report Normal [facility] Oncology Visit Reporton 10-17 Oncology Visit Report Normal [facility] Absolute lymphocyte countOrd ered By: Galileo Lev on 11-04-2024 Lymphocytes Auto (Unsp spec) [#/Vol] 2.14 10*3/uL 0.83-4.51 [facility] Absolute neutrophil countOrd ered By: Galileo [facility] 11-04-2024 Neutrophils (Bld) [#/Vol] 6.3 10*3/uL 2.0-7.7 [facility] Automated lymphocyte count a s percentage of total leukocytesOrdered By: Galileo Ohara on 11-04-2024 Lymphocytes/100 WBC Auto (Unsp spec) 23.0 % 19-41 [facility] Basophil percentageOrdered B y: Galileo Ohara on 11-04-2024 Basophils/100 WBC (Bld) 0.6 % 0-1 [facility] CBC W/Diff, Automatedon 10-17 Absolute Lymph 2.14 X10 3/uL Normal 0.83-4.51 [facility] Comment on above: Performed By: #### L 300.8000, L100.0100 ####[facility] [address] [place], [address] Absolute Neut 6.3 X10 3/uL Normal 2.0-7.7 [facility] Comment on above: Performed By: #### L 300.8000, L100.0100 ####[facility] [address] [place], [address] Basophils/100 WBC (Bld) 0.6 % Normal 0-1 [facility] Comment on above: Performed By: #### L 300.8000, L100.0100 ####[facility] [address] [place], [address] Eosinophils/100 WBC (Bld) 1.5 % Normal 0-5 [facility] Comment on above: Performed By: #### L 300.8000, L100.0100 ####[facility] [address] [place], [address] Erythrocyte distribution width (RBC) [Ratio] 15.6 % High 11.6-14.6 [facility] Comment on above: Performed By: #### L 300.8000, L100.0100 ####[facility] [address] [place], [address] Hematocrit (Bld) [Volume fraction] 44.3 % Normal 40-54 [facility] Comment on above: Performed By: #### L 300.8000, L100.0100 ####[facility] [address] [place], [address] Hemoglobin (Bld) [Mass/Vol] 13.9 g/dL Normal 13.0-16.5 [facility] Comment on above: Performed By: #### L 300.8000, L100.0100 ####[facility] [address] [place], [address] IG% 0.400 Normal 0.0-0.9 [facility] Comment on above: Result Comment: IG% - Immature Granulocytes (promyelocytes, myelocytes andmetamyelocytes) > 1% indicates that a LEFT SHIFT is Present. Performed By: #### L 300.8000, L100.0100 ####[facility] [address] [place], [address] Lymphocytes/100 WBC (Bld) 23.0 % Normal 19-41 [facility] Comment on above: Performed By: #### L 300.8000, L100.0100 ####[facility] [address] [place], [address] MCH (RBC) [Entitic mass] 31.0 pg Normal 27.0-32.0 [facility] Comment on above: Performed By: #### L 300.8000, L100.0100 ####[facility] [address] [place], [address] MCHC (RBC) [Mass/Vol] 31.4 g/dL Low 32-36 [facility] Comment on above: Performed By: #### L 300.8000, L100.0100 ####[facility] [address] [place], [address] MCV (RBC) [Entitic vol] 98.7 fL High 80-94 [facility] Comment on above: Performed By: #### L 300.8000, L100.0100 ####[facility] [address] [place], [address] Monocytes/100 WBC (Bld) 6.7 % Normal 0-10 [facility] Comment on above: Performed By: #### L 300.8000, L100.0100 ####[facility] [address] [place], [address] Neutrophils/100 WBC (Bld) 67.8 % Normal 47-70 [facility] Comment on above: Performed By: #### L 300.8000, L100.0100 ####[facility] [address] [place], [address] Nucleated RBC (Bld) [#/Vol] 0 10*3/uL Normal 0-5 [facility] Comment on above: Performed By: #### L 300.8000, L100.0100 ####[facility] [address] [place], [address] Platelet mean volume (Bld) [Entitic vol] 10.5 fL Normal 6.2-12.0 [facility] Comment on above: Performed By: #### L 300.8000, L100.0100 ####[facility] [address] [place], [address] Platelets (Bld) [#/Vol] 228 10*3/uL Normal 150-450 [facility] Comment on above: Performed By: #### L 300.8000, L100.0100 ####[facility] [address] [place], [address] RBC (Bld) [#/Vol] 4.49 10*6/uL Low 4.6-6.2 [facility] Comment on above: Performed By: #### L 300.8000, L100.0100 ####[facility] [address] [place], [address] RDW SD 56.3 fl High 35.1-43.9 [facility] Comment on above: Performed By: #### L 300.8000, L100.0100 ####[facility] [address] [place], [address] WBC (Bld) [#/Vol] 9.3 10*3/uL Normal 4.4-11.0 [facility] Comment on above: Performed By: #### L 300.8000, L100.0100 ####[facility] [address] [place], [address] D-Dimer Quantitative (DVT/PE )on 11-04-2024 D-DIMER QUANT 0.44 FEU/ug/m Normal 0.27-0.49 [facility] Comment on above: Result Comment: NORM AL D-Dimer level (<0.50) indicates no DVT or PE. Performed By: #### L 300.8000, L100.0100 ####[facility] [address] [place], [address] Eosinophil percentageOrdered By: [facility] on 11-04-2024 Eosinophils/100 WBC (Bld) 1.5 % 0-5 [facility] Erythrocyte distribution wid th ratioOrdered By: [facility] on 11-04-2024 Erythrocyte distribution width (RBC) [Ratio] 15.6 % High 11.6-14.6 [facility] Erythrocyte distribution wid th standard deviationOrdered By: [facility] on 11-04-2024 Erythrocyte distribution width (RBC) [Entitic vol] 56.3 fL High 35.1-43.9 [facility] Erythrocyte distribution width (RBC) [Ratio] 56.3 fl High 35.1-43.9 [facility] Hematocrit Auto (Bld) [Volum e fraction]Ordered By: [facility] on 11-04-2024 Hematocrit (Bld) [Volume fraction] 44.3 % 40-54 [facility] Hemoglobin measurementOrdere d By: [facility] on 11-04-2024 Hemoglobin (Bld) [Mass/Vol] 13.9 g/dL 13.0-16.5 [facility] Immature granulocytes/100 WB C Auto (Bld)Ordered By: [facility] on 11-04-2024 Immature granulocytes/100 WBC (Bld) 0.400 % 0.0-0.9 [facility] Comment on above: IG% - Immature Granu locytes (promyelocytes, myelocytes and metamyelocytes) > 1% indicates that a LEFT SHIFT is Present. Lymphocytes Auto (Unsp spec) [#/Vol]Ordered By: [facility] on 11-04-2024 Lymphocytes (Bld) [#/Vol] 2.14 10*3/uL 0.83-4.51 [facility] Lymphocytes/100 WBC Auto (Un sp spec)Ordered By: [facility] on 11-04-2024 Lymphocytes/100 WBC (Bld) 23.0 % 19-41 [facility] MCV (mean corpuscular volume ) determinationOrdered By: Galileo Ohara on 11-04-2024 MCV (RBC) [Entitic vol] 98.7 fL High 80-94 [facility] Mean corpuscular hemoglobin (MCH) determinationOrdered By: Galileo Ohara on 11-04-2024 MCH (RBC) [Entitic mass] 31.0 pg 27.0-32.0 [facility] Mean corpuscular hemoglobin concentration (MCHC) determinationOrdered By: Galileo Ohara on 11-04-2024 MCHC (RBC) [Mass/Vol] 31.4 g/dL Low 32-36 [facility] Mean platelet volume determi nationOrdered By: Galileo Ohara on 11-04-2024 Platelet mean volume (Bld) [Entitic vol] 10.5 fL 6.2-12.0 [facility] Monocyte percentageOrdered B y: Galileo Ohara on 11-04-2024 Monocytes/100 WBC (Bld) 6.7 % 0-10 [facility] Neutrophil percentageOrdered By: Galileo Ohara on 11-04-2024 Neutrophils/100 WBC (Bld) 67.8 % 47-70 [facility] Nucleated red blood cell per centageOrdered By: Galileo Ohara on 11-04-2024 Nucleated RBC/100 WBC (Bld) [Ratio] 0 % 0-5 [facility] Platelet countOrdered By: Keli Ohara on 11-04-2024 Platelets (Bld) [#/Vol] 228 10*3/uL 150-450 [facility] RBC Auto (Bld) [#/Vol]Ordere d By: Galileo Ohara on 11-04-2024 RBC (Bld) [#/Vol] 4.49 10*6/uL Low 4.6-6.2 [facility] White blood cell (WBC) count Ordered By: Galileo Ohara on 11-04-2024 WBC (Bld) [#/Vol] 9.3 10*3/uL 4.4-11.0 [facility] Venous Duplex US, Unilateral on 10-28-2024 Venous Duplex US, Unilateral Normal [facility] L/S Spine Min 4 Viewson L/S Spine Min 4 Views Normal [facility] Orthopedic Visit Reporton Orthopedic Visit Report Normal [facility] MR/BMS.BVSon 10-08-2024 MR/BMS.BVS Normal [facility] Oncology Visit Reporton 09-16 Oncology Visit Report Normal [facility] D-Dimer Quantitative (DVT/PE )on 10-07-2024 D-DIMER QUANT 0.68 FEU/ug/m Invalid Interpretation Code 0.27-0.49 [facility] Comment on above: Order Comment: CRITI HOWIE VALUE CALLED TO IRAIDA LANZA10/07/24 1744 Delaney Vasquezrosendo.RESULTS READ BACK BY SAME. Result Comment: D-Di moody ELEVATED (>0.49): Additional studies and clinicalassessments are indicated to conclude diagnosis of:Deep Vein Thrombosis (DVT) or Pulmonary Embolism (PE) Performed By: #### L 300.8000 ####[facility] [address] [place], [place], [id number] Venous Duplex US, Unilateral on 10-04-2024 Venous Duplex US, Unilateral Normal [facility] Albumin to globulin ratioOrd ered By: Galileo Ohara on 09-24-2024 Albumin/Globulin [Mass ratio] 1.1 {ratio} 0.9-2.4 [facility] Bilirubin, totalOrdered By: Galileo Ohara on 09-24-2024 Bilirubin [Mass/Vol] 0.60 mg/dL 0.20-1.[address] [facility] Comment on above: For patients on eltr ombopag therapy, use of Dimension Strum TBIL is not recommended. Blood urea nitrogen (BUN)/cr eatinine ratioOrdered By: Galileo Ohara on 09-24-2024 Urea nitrogen/Creatinine [Mass ratio] 10.4 mg/mg 08-04 [facility] CBC W/Diff, Automatedon 09-15 Absolute Lymph 2.19 X10 3/uL Normal 0.83-4.51 [facility] Comment on above: Performed By: #### L 500.4050, L504.2610, L503.6550, L300.8000, L503.6030, L100.0100 ####[facility] [address] [place], [address] Absolute Neut 5.6 X10 3/uL Normal 2.0-7.7 [facility] Comment on above: Performed By: #### L 500.4050, L504.2610, L503.6550, L300.8000, L503.6030, L100.0100 ####[facility] [address] [place], [address] Basophils/100 WBC (Bld) 0.8 % Normal 0-1 [facility] Comment on above: Performed By: #### L 500.4050, L504.2610, L503.6550, L300.8000, L503.6030, L100.0100 ####[facility] [address] [place], [address] Eosinophils/100 WBC (Bld) 1.4 % Normal 0-5 [facility] Comment on above: Performed By: #### L 500.4050, L504.2610, L503.6550, L300.8000, L503.6030, L100.0100 ####[facility] [address] [place], [address] Erythrocyte distribution width (RBC) [Ratio] 14.9 % High 11.6-14.6 [facility] Comment on above: Performed By: #### L 500.4050, L504.2610, L503.6550, L300.8000, L503.6030, L100.0100 ####[facility] [address] [place], [address] Hematocrit (Bld) [Volume fraction] 39.8 % Low 40-54 [facility] Comment on above: Performed By: #### L 500.4050, L504.2610, L503.6550, L300.8000, L503.6030, L100.0100 ####[facility] [address] [place], [address] Hemoglobin (Bld) [Mass/Vol] 12.5 g/dL Low 13.0-16.5 [facility] Comment on above: Performed By: #### L 500.4050, L504.2610, L503.6550, L300.8000, L503.6030, L100.0100 ####[facility] [address] [place], [address] IG% 0.500 Normal 0.0-0.9 [facility] Comment on above: Result Comment: IG% - Immature Granulocytes (promyelocytes, myelocytes andmetamyelocytes) > 1% indicates that a LEFT SHIFT is Present. Performed By: #### L 500.4050, L504.2610, L503.6550, L300.8000, L503.6030, L100.0100 ####[facility] [address] [place], [address] Lymphocytes/100 WBC (Bld) 25.2 % Normal 19-41 [facility] Comment on above: Performed By: #### L 500.4050, L504.2610, L503.6550, L300.8000, L503.6030, L100.0100 ####[facility] [address] [place], [address] MCH (RBC) [Entitic mass] 31.2 pg Normal 27.0-32.0 [facility] Comment on above: Performed By: #### L 500.4050, L504.2610, L503.6550, L300.8000, L503.6030, L100.0100 ####[facility] [address] [place], [address] MCHC (RBC) [Mass/Vol] 31.4 g/dL Low 32-36 [facility] Comment on above: Performed By: #### L 500.4050, L504.2610, L503.6550, L300.8000, L503.6030, L100.0100 ####[facility] [address] [place], [address] MCV (RBC) [Entitic vol] 99.3 fL High 80-94 [facility] Comment on above: Performed By: #### L 500.4050, L504.2610, L503.6550, L300.8000, L503.6030, L100.0100 ####[facility] [address] [place], [address] Monocytes/100 WBC (Bld) 7.3 % Normal 0-10 [facility] Comment on above: Performed By: #### L 500.4050, L504.2610, L503.6550, L300.8000, L503.6030, L100.0100 ####[facility] [address] [place], [address] Neutrophils/100 WBC (Bld) 64.8 % Normal 47-70 [facility] Comment on above: Performed By: #### L 500.4050, L504.2610, L503.6550, L300.8000, L503.6030, L100.0100 ####[facility] [address] [place], [address] Nucleated RBC (Bld) [#/Vol] 0 10*3/uL Normal 0-5 [facility] Comment on above: Performed By: #### L 500.4050, L504.2610, L503.6550, L300.8000, L503.6030, L100.0100 ####[facility] [address] [place], [address] Platelet mean volume (Bld) [Entitic vol] 10.2 fL Normal 6.2-12.0 [facility] Comment on above: Performed By: #### L 500.4050, L504.2610, L503.6550, L300.8000, L503.6030, L100.0100 ####[facility] [address] [place], [address] Platelets (Bld) [#/Vol] 292 10*3/uL Normal 150-450 [facility] Comment on above: Performed By: #### L 500.4050, L504.2610, L503.6550, L300.8000, L503.6030, L100.0100 ####[facility] [address] [place], [address] RBC (Bld) [#/Vol] 4.01 10*6/uL Low 4.6-6.2 [facility] Comment on above: Performed By: #### L 500.4050, L504.2610, L503.6550, L300.8000, L503.6030, L100.0100 ####[facility] [address] [place], [address] RDW SD 54.6 fl High 35.1-43.9 [facility] Comment on above: Performed By: #### L 500.4050, L504.2610, L503.6550, L300.8000, L503.6030, L100.0100 ####[facility] [address] [place], [address] WBC (Bld) [#/Vol] 8.7 10*3/uL Normal 4.4-11.0 [facility] Comment on above: Performed By: #### L 500.4050, L504.2610, L503.6550, L300.8000, L503.6030, L100.0100 ####[facility] [address] [place], [address] Carbon dioxide measurementOr dered By: Galileo Ohara on 09-24-2024 CO2 [Moles/Vol] 29.0 mmol/L 21.0-32.0 [facility] Chloride measurementOrdered By: Galileo Ohara on 09-24-2024 Chloride [Moles/Vol] 108 mmol/L High 98-[address] [facility] Comprehensive Metabolic Prof ilon 09-24-2024 Albumin [Mass/Vol] 3.5 g/dL Normal 3.2-5.0 [facility] Comment on above: Order Comment: 1 Performed By: #### L 500.4050, L504.2610, L503.6550, L300.8000, L503.6030, L100.0100 ####[facility] [address] [place], [address] Albumin/Globulin [Mass ratio] 1.1 {ratio} Normal 0.9-2.4 [facility] Comment on above: Order Comment: 1 Performed By: #### L 500.4050, L504.2610, L503.6550, L300.8000, L503.6030, L100.0100 ####[facility] [address] [place], [address] ALK P 64 U/L Normal 45-117 [facility] Comment on above: Order Comment: 1 Performed By: #### L 500.4050, L504.2610, L503.6550, L300.8000, L503.6030, L100.0100 ####[facility] [address] [place], [address] ALT [Catalytic activity/Vol] 16 U/L Normal 16-61 [facility] Comment on above: Order Comment: 1 Performed By: #### L 500.4050, L504.2610, L503.6550, L300.8000, L503.6030, L100.0100 ####[facility] [address] [place], [address] AST [Catalytic activity/Vol] 12 U/L Low 15-37 [facility] Comment on above: Order Comment: 1 Performed By: #### L 500.4050, L504.2610, L503.6550, L300.8000, L503.6030, L100.0100 ####[facility] [address] [place], [address] Bilirubin [Mass/Vol] 0.60 mg/dL Normal 0.20-1.[address] [facility] Comment on above: Order Comment: 1 Result Comment: For patients on eltrombopag therapy, use of Dimension Strum TBIL is not recommended. Performed By: #### L 500.4050, L504.2610, L503.6550, L300.8000, L503.6030, L100.0100 ####[facility] [address] [place], [address] BUN/CRE 10.4 RATIO Normal 10-20 [facility] Comment on above: Order Comment: 1 Performed By: #### L 500.4050, L504.2610, L503.6550, L300.8000, L503.6030, L100.0100 ####[facility] [address] [place], [address] CA,Total 9.0 mg/dL Normal 8.5-10.1 [facility] Comment on above: Order Comment: 1 Performed By: #### L 500.4050, L504.2610, L503.6550, L300.8000, L503.6030, L100.0100 ####[facility] [address] [place], [address] Chloride [Moles/Vol] 108 mmol/L High 98-[address] [facility] Comment on above: Order Comment: 1 Performed By: #### L 500.4050, L504.2610, L503.6550, L300.8000, L503.6030, L100.0100 ####[facility] [address] [place], [address] CO2 [Moles/Vol] 29.0 mmol/L Normal 21.0-32.0 [facility] Comment on above: Order Comment: 1 Performed By: #### L 500.4050, L504.2610, L503.6550, L300.8000, L503.6030, L100.0100 ####[facility] [address] [place], [address] Creatinine [Mass/Vol] 2.02 mg/dL High 0.70-1.30 [facility] Comment on above: Order Comment: 1 Result Comment: The validity of the calculated GFR GFRAA in patients over70 years has not been determined. Clinical correlation isessential. Performed By: #### L 500.4050, L504.2610, L503.6550, L300.8000, L503.6030, L100.0100 ####[facility] [address] [place], [address] ECRCL 27.28 ml/min Normal [facility] Comment on above: Order Comment: 1 Performed By: #### L 500.4050, L504.2610, L503.6550, L300.8000, L503.6030, L100.0100 ####[facility] [address] [place], [address] EST GFR - AA 41 mL/min Low >60 [facility] Comment on above: Order Comment: 1 Result Comment: Afri can Japanese GFR Calc Performed By: #### L 500.4050, L504.2610, L503.6550, L300.8000, L503.6030, L100.0100 ####[facility] [address] [place], [address] GAP 3 Low 5-15 [facility] Comment on above: Order Comment: 1 Performed By: #### L 500.4050, L504.2610, L503.6550, L300.8000, L503.6030, L100.0100 ####[facility] [address] [place], [address] GFR/1.73 sq M.predicted among non-blacks MDRD (S/P/Bld) [Vol rate/Area] 34 mL/min/{1.73_m2} Low >60 [facility] Comment on above: Order Comment: 1 Result Comment: Non- GFR Calc Performed By: #### L 500.4050, L504.2610, L503.6550, L300.8000, L503.6030, L100.0100 ####[facility] [address] [place], [address] Globulin (S) [Mass/Vol] 3.2 g/dL Normal 2.2-4.2 [facility] Comment on above: Order Comment: 1 Performed By: #### L 500.4050, L504.2610, L503.6550, L300.8000, L503.6030, L100.0100 ####[facility] [address] [place], [address] Glucose [Mass/Vol] 126 mg/dL High 74-106 [facility] Comment on above: Order Comment: 1 Result Comment: Fast ing Glucose result greater than or equal to 126 mg/dLsuggests DIABETES MELLITUS per A.D.A. criteria. Performed By: #### L 500.4050, L504.2610, L503.6550, L300.8000, L503.6030, L100.0100 ####[facility] [address] [place], [address] Potassium [Moles/Vol] 4.4 mmol/L Normal 3.5-5.1 [facility] Comment on above: Order Comment: 1 Performed By: #### L 500.4050, L504.2610, L503.6550, L300.8000, L503.6030, L100.0100 ####[facility] [address] [place], [address] Sodium [Moles/Vol] 140 mmol/L Normal 136-145 [facility] Comment on above: Order Comment: 1 Performed By: #### L 500.4050, L504.2610, L503.6550, L300.8000, L503.6030, L100.0100 ####[facility] [address] [place], [address] T PROT 6.7 g/dL Normal 6.4-8.2 [facility] Comment on above: Order Comment: 1 Performed By: #### L 500.4050, L504.2610, L503.6550, L300.8000, L503.6030, L100.0100 ####[facility] [address] [place], [address] Urea nitrogen [Mass/Vol] 21 mg/dL High 7-18 [facility] Comment on above: Order Comment: 1 Performed By: #### L 500.4050, L504.2610, L503.6550, L300.8000, L503.6030, L100.0100 ####[facility] [address] [place], [address] D-Dimer Quantitative (DVT/PE )on 09-24-2024 D-DIMER QUANT 0.85 FEU/ug/m Invalid Interpretation Code 0.27-0.49 [facility] Comment on above: Result Comment: D-Di moody ELEVATED (>0.49): Additional studies and clinicalassessments are indicated to conclude diagnosis of:Deep Vein Thrombosis (DVT) or Pulmonary Embolism (PE)CRITICAL VALUE CALLED TO KWAME HENLEY (ONC)09/24/24 1039 Francisco J Fontanez.RESULTS READ BACK BY SAME. Performed By: #### L 500.4050, L504.2610, L503.6550, L300.8000, L503.6030, L100.0100 ####[facility] [address] [place], [address] Estimated glomerular filtrat ion rate (GFR) AmericanOrdered By: Galileo Ohara on 09-24-2024 Estimated GFR (MDRD) Amer 41 mL/min Low >60 [facility] Comment on above: GFR Calc Estimation of creatinine liberty aranceOrdered By: Galileo Ohara on 09-24-2024 Estimated Creatinine Clearance Calc 27.28 ml/min [facility] Ferritinon 09-24-2024 Ferritin [Mass/Vol] 199 ng/mL Normal 26-388 [facility] Comment on above: Order Comment: 1 Performed By: #### L 500.4050, L504.2610, L503.6550, L300.8000, L503.6030, L100.0100 ####[facility] [address] [place], [address] Ferritin measurementOrdered By: Galileo Ohara on 09-24-2024 Ferritin [Mass/Vol] 199 ng/mL -388 [facility] Glomerular filtration rate ( GFR) estimationOrdered By: Galileo Ohara on 09-24-2024 Estimated GFR (MDRD) Non-Af Amer 34 mL/min Low >60 [facility] Comment on above: Non- GFR Calc GFR/1.73 sq M.predicted among non-blacks MDRD (S/P/Bld) [Vol rate/Area] 34 mL/min/{1.73_m2} Low >60 [facility] Comment on above: Non- GFR Calc Glucose measurementOrdered B y: Galileo Ohara on 09-24-2024 Glucose [Mass/Vol] 126 mg/dL High 74-106 [facility] Comment on above: Fasting Glucose resu lt greater than or equal to 126 mg/dL suggests DIABETES MELLITUS per A.D.A. criteria. Iron (Unsp spec) [Mass/Mass] Ordered By: Galileo Ohara on 09-24-2024 Iron [Mass/Vol] 54 ug/dL Low 65-175 [facility] Iron measurement (mass/mass) Ordered By: Galileo Ohara on 09-24-2024 Iron (Unsp spec) [Mass/Mass] 54 ug/dL Low 65-175 [facility] Iron saturation [Mass fracti on]Ordered By: Galileo Ohara on 09-24-2024 Iron Saturation 21.9 % 15.0-55.0 [facility] Iron+Iron Binding Capacityon 09-24-2024 Iron [Mass/Vol] 54 ug/dL Low 65-175 [facility] Comment on above: Order Comment: 1 Performed By: #### L 500.4050, L504.2610, L503.6550, L300.8000, L503.6030, L100.0100 ####[facility] [address] [place], [address] IRON SATURATION 21.9 Normal 15.0-55.0 [facility] Comment on above: Order Comment: 1 Performed By: #### L 500.4050, L504.2610, L503.6550, L300.8000, L503.6030, L100.0100 ####[facility] [address] [place], [address] TIBC 247 ug/dL Low 250-450 [facility] Comment on above: Order Comment: 1 Performed By: #### L 500.4050, L504.2610, L503.6550, L300.8000, L503.6030, L100.0100 ####[facility] [address] [place], [address] LDHon 09-24-2024 LDH 144 U/L Normal 87-241 [facility] Comment on above: Order Comment: 1 Performed By: #### L 500.4050, L504.2610, L503.6550, L300.8000, L503.6030, L100.0100 ####[facility] [address] [place], [address] Laboratory - Chemistry and C hemistry - challengeOrdered By: Galileo Ohara on 09-24-2024 AST [Catalytic activity/Vol] 12 U/L Low 15-37 [facility] Lactate dehydrogenase (LDH) measurementOrdered By: Galileo Ohara on 09-24-2024 LDH [Catalytic activity/Vol] 144 U/L 87-241 [facility] Oncology Visit Reporton 09-15 Oncology Visit Report Normal [facility] Potassium measurementOrdered By: Galileo Ohara on 09-24-2024 Potassium [Moles/Vol] 4.4 mmol/L 3.5-5.1 [facility] Serum anion gap measurementO rdered By: Galileo Ohara on 09-24-2024 Anion gap [Moles/Vol] 3 mmol/L Low 5-15 [facility] Serum globulin measurementOr dered By: Galileo Ohara on 09-24-2024 Globulin (S) [Mass/Vol] 3.2 g/dL 2.2-4.2 [facility] Serum or plasma alanine hall otransferase (ALT) measurementOrdered By: Galileo Ohara on 09-24-2024 ALT [Catalytic activity/Vol] 16 U/L 16-61 [facility] Serum or plasma albumin gume urement (mass/volume)Ordered By: Galileo Ohara on 09-24-2024 Albumin [Mass/Vol] 3.5 g/dL 3.2-5.0 [facility] Serum or plasma alkaline dahiana sphatase measurementOrdered By: Galileo Ohara on 09-24-2024 ALP [Catalytic activity/Vol] 64 U/L 45-117 [facility] Serum or plasma calcium gume urement (mass/volume)Ordered By: Galileo Ohara on 09-24-2024 Calcium [Mass/Vol] 9.0 mg/dL 8.5-10.1 [facility] Serum or plasma creatinine m easurement (mass/volume)Ordered By: Galileo Ohara on 09-24-2024 Creatinine [Mass/Vol] 2.02 mg/dL High 0.70-1.30 [facility] Comment on above: The validity of the calculated GFR & GFRAA in patients over 70 years has not been determined. Clinical correlation is essential. Serum or plasma iron saturat ion measurement (mass fraction)Ordered By: Galileo Ohara on 09-24-2024 Iron saturation [Mass fraction] 21.9 % 15.0-55.0 [facility] Serum or plasma urea nitroge n measurement (mass/volume)Ordered By: Galileo Ohara on 09-24-2024 Urea nitrogen [Mass/Vol] 21 mg/dL High 7-18 [facility] Sodium levelOrdered By: Jalil Ohara on 09-24-2024 Sodium [Moles/Vol] 140 mmol/L 136-145 [facility] TIBCOrdered By: Galileo Ohara on 09-24-2024 Total Iron Binding Capacity 247 ug/dL Low 250-450 [facility] Total proteinOrdered By: Vijay mehran Bradfordvenecia on 09-24-2024 Protein [Mass/Vol] 6.7 g/dL 6.4-8.2 [facility] MR/BMS.BVSon 09-06-2024 MR/BMS.BVS Normal [facility] Oncology Visit Reporton 08-17 Oncology Visit Report Normal [facility] Oncology Visit Reporton 08-16 Oncology Visit Report Normal [facility] Venous Duplex US - Allan Extre mon 08-28-2024 Venous Duplex US - Allan Extrem Normal [facility] Lower GI hemoglobin IA Ql (S tl)Ordered By: Galileo Ohara on 08-23-2024 Stool Occult Blood (KITTY) [facility] Stool Occult Blood iFOBon STOB Normal [facility] Comment on above: Performed By: #### M 100.7900 ####[facility] [address] [place], [address] Stool gastrointestinal hemog lobin detection by immunologic methodOrdered By: Galileo Ohara on 08-23-2024 Lower GI hemoglobin IA Ql (Stl) [facility] Erythropoietinon 08-22-2024 ERYTHROPOIETIN 33.4 mIU/mL High 2.6-18.5 [facility] Comment on above: Result Comment: [employer] DxI 800 Immunoassay SystemValues obtained with different assay methods or kits cannotbe used interchangeably. Results cannot be interpreted asabsolute evidence of the presence or absence of malignantdisease.Performed at: [facility] [address] [id number] Director: Juan Carson PhD, Phone: [phone] Performed By: #### L 3100.1350, L503.6030, L100.0100, L300.4310, L501.5200, L504.2610, L501.6710, L101.9900, L500.4050, L100.9950, L300.3900, L501.2300, L503.6550, L300.8000 ####[facility] [address] [place], [place], [id number] Activated partial thrombopla stin time (aPTT) in platelet poor plasma by coagulation aOrdered By: Galileo Ohara on 08-21-2024 aPTT Coag (PPP) [Time] 39.5 s High 24.1-36.2 [facility] C-reactive protein measureme nt by high sensitivity methodOrdered By: Galileo Ohara on 08-21-2024 C-Reactive Protein Extended Range 8.32 mg/L High 0.0-3.0 [facility] Comment on above: C-Reactive Protein ( CRP) provides useful information for thediagnosis, therapy and monitoring of inflammatory processesand associated diseases. For the evaluation of Relative Riskfor Cardiovascular Disease, a High Sensitivity CRP (HSCRP)should be ordered. C-reactive protein measurement by high sensitivity method 8.32 mg/L High 0.0-3.0 [facility] Comment on above: C-Reactive Protein ( CRP) provides useful information for thediagnosis, therapy and monitoring of inflammatory processesand associated diseases. For the evaluation of Relative Riskfor Cardiovascular Disease, a High Sensitivity CRP (HSCRP)should be ordered. CBC W/Diff, Automatedon 11-0 Absolute Lymph 2.62 X10 3/uL Normal 0.83-4.51 [facility] Comment on above: Performed By: #### L 3100.1350, L503.6030, L100.0100, L300.4310, L501.5200, L504.2610, L501.6710, L101.9900, L500.4050, L100.9950, L300.3900, L501.2300, L503.6550, L300.8000 ####[facility] [address] [place], [address] Absolute Neut 5.7 X10 3/uL Normal 2.0-7.7 [facility] Comment on above: Performed By: #### L 3100.1350, L503.6030, L100.0100, L300.4310, L501.5200, L504.2610, L501.6710, L101.9900, L500.4050, L100.9950, L300.3900, L501.2300, L503.6550, L300.8000 ####[facility] [address] [place], [address] Basophils/100 WBC (Bld) 1.0 % Normal 0-1 [facility] Comment on above: Performed By: #### L 3100.1350, L503.6030, L100.0100, L300.4310, L501.5200, L504.2610, L501.6710, L101.9900, L500.4050, L100.9950, L300.3900, L501.2300, L503.6550, L300.8000 ####[facility] [address] [place], [place], [phone]) Eosinophils/100 WBC (Bld) 5.7 % High 0-5 [facility] Comment on above: Performed By: #### L 3100.1350, L503.6030, L100.0100, L300.4310, L501.5200, L504.2610, L501.6710, L101.9900, L500.4050, L100.9950, L300.3900, L501.2300, L503.6550, L300.8000 ####[facility] [address] [place], [place], [phone]) Erythrocyte distribution width (RBC) [Ratio] 14.0 % Normal 11.6-14.6 [facility] Comment on above: Performed By: #### L 3100.1350, L503.6030, L100.0100, L300.4310, L501.5200, L504.2610, L501.6710, L101.9900, L500.4050, L100.9950, L300.3900, L501.2300, L503.6550, L300.8000 ####[facility] [address] [facility] [place], [place], [id number] Hematocrit (Bld) [Volume fraction] 34.1 % Low 40-54 [facility] Comment on above: Performed By: #### L 3100.1350, L503.6030, L100.0100, L300.4310, L501.5200, L504.2610, L501.6710, L101.9900, L500.4050, L100.9950, L300.3900, L501.2300, L503.6550, L300.8000 ####[facility] [address] [place], [place], [id number] Hemoglobin (Bld) [Mass/Vol] 11.0 g/dL Low 13.0-16.5 [facility] Comment on above: Performed By: #### L 3100.1350, L503.6030, L100.0100, L300.4310, L501.5200, L504.2610, L501.6710, L101.9900, L500.4050, L100.9950, L300.3900, L501.2300, L503.6550, L300.8000 ####[facility] [address] [facility] [place], [place], [id number] IG% 0.300 Normal 0.0-0.9 [facility] Comment on above: Result Comment: IG% - Immature Granulocytes (promyelocytes, myelocytes andmetamyelocytes) > 1% indicates that a LEFT SHIFT is Present. Performed By: #### L 3100.1350, L503.6030, L100.0100, L300.4310, L501.5200, L504.2610, L501.6710, L101.9900, L500.4050, L100.9950, L300.3900, L501.2300, L503.6550, L300.8000 ####[facility] [address] [place], [address] Lymphocytes/100 WBC (Bld) 26.8 % Normal 19-41 [facility] Comment on above: Performed By: #### L 3100.1350, L503.6030, L100.0100, L300.4310, L501.5200, L504.2610, L501.6710, L101.9900, L500.4050, L100.9950, L300.3900, L501.2300, L503.6550, L300.8000 ####[facility] [address] [place], [address] MCH (RBC) [Entitic mass] 31.7 pg Normal 27.0-32.0 [facility] Comment on above: Performed By: #### L 3100.1350, L503.6030, L100.0100, L300.4310, L501.5200, L504.2610, L501.6710, L101.9900, L500.4050, L100.9950, L300.3900, L501.2300, L503.6550, L300.8000 ####[facility] [address] [place], [address] MCHC (RBC) [Mass/Vol] 32.3 g/dL Normal 32-36 [facility] Comment on above: Performed By: #### L 3100.1350, L503.6030, L100.0100, L300.4310, L501.5200, L504.2610, L501.6710, L101.9900, L500.4050, L100.9950, L300.3900, L501.2300, L503.6550, L300.8000 ####[facility] [address] [place], [address] MCV (RBC) [Entitic vol] 98.3 fL High 80-94 [facility] Comment on above: Performed By: #### L 3100.1350, L503.6030, L100.0100, L300.4310, L501.5200, L504.2610, L501.6710, L101.9900, L500.4050, L100.9950, L300.3900, L501.2300, L503.6550, L300.8000 ####[facility] [address] [facility] [place], [place], [phone]) Monocytes/100 WBC (Bld) 8.2 % Normal 0-10 [facility] Comment on above: Performed By: #### L 3100.1350, L503.6030, L100.0100, L300.4310, L501.5200, L504.2610, L501.6710, L101.9900, L500.4050, L100.9950, L300.3900, L501.2300, L503.6550, L300.8000 ####[facility] [id number] [facility]. [place], [place], [phone]) Neutrophils/100 WBC (Bld) 58.0 % Normal 47-70 [facility] Comment on above: Performed By: #### L 3100.1350, L503.6030, L100.0100, L300.4310, L501.5200, L504.2610, L501.6710, L101.9900, L500.4050, L100.9950, L300.3900, L501.2300, L503.6550, L300.8000 ####[facility] [id number] [facility]. [place], [place], [id number]([phone]) Nucleated RBC (Bld) [#/Vol] 0 10*3/uL Normal 0-5 [facility] Comment on above: Performed By: #### L 3100.1350, L503.6030, L100.0100, L300.4310, L501.5200, L504.2610, L501.6710, L101.9900, L500.4050, L100.9950, L300.3900, L501.2300, L503.6550, L300.8000 ####[facility] [address] [place], [address] Platelet mean volume (Bld) [Entitic vol] 10.0 fL Normal 6.2-12.0 [facility] Comment on above: Performed By: #### L 3100.1350, L503.6030, L100.0100, L300.4310, L501.5200, L504.2610, L501.6710, L101.9900, L500.4050, L100.9950, L300.3900, L501.2300, L503.6550, L300.8000 ####[facility] [address] [place], [address] Platelets (Bld) [#/Vol] 427 10*3/uL Normal 150-450 [facility] Comment on above: Performed By: #### L 3100.1350, L503.6030, L100.0100, L300.4310, L501.5200, L504.2610, L501.6710, L101.9900, L500.4050, L100.9950, L300.3900, L501.2300, L503.6550, L300.8000 ####[facility] [address] [place], [place], [phone] RBC (Bld) [#/Vol] 3.47 10*6/uL Low 4.6-6.2 [facility] Comment on above: Performed By: #### L 3100.1350, L503.6030, L100.0100, L300.4310, L501.5200, L504.2610, L501.6710, L101.9900, L500.4050, L100.9950, L300.3900, L501.2300, L503.6550, L300.8000 ####[facility] [address] [place], [address] RDW SD 50.2 fl High 35.1-43.9 [facility] Comment on above: Performed By: #### L 3100.1350, L503.6030, L100.0100, L300.4310, L501.5200, L504.2610, L501.6710, L101.9900, L500.4050, L100.9950, L300.3900, L501.2300, L503.6550, L300.8000 ####[facility] [address] [place], [address] WBC (Bld) [#/Vol] 9.8 10*3/uL Normal 4.4-11.0 [facility] Comment on above: Performed By: #### L 3100.1350, L503.6030, L100.0100, L300.4310, L501.5200, L504.2610, L501.6710, L101.9900, L500.4050, L100.9950, L300.3900, L501.2300, L503.6550, L300.8000 ####[facility] [address] [place], [address] CRPon 08-21-2024 C-REACTIVE PROT 8.32 mg/L High 0.0-3.0 [facility] Comment on above: Order Comment: 1 Result Comment: C-Re active Protein (CRP) provides useful information for thediagnosis, therapy and monitoring of inflammatory processesand associated diseases. For the evaluation of Relative Riskfor Cardiovascular Disease, a High Sensitivity CRP (HSCRP)should be ordered. Performed By: #### L 3100.1350, L503.6030, L100.0100, L300.4310, L501.5200, L504.2610, L501.6710, L101.9900, L500.4050, L100.9950, L300.3900, L501.2300, L503.6550, L300.8000 ####[facility] [address] [place], [address] Comprehensive Metabolic Prof ilon 08-21-2024 Albumin [Mass/Vol] 3.8 g/dL Normal 3.2-5.0 [facility] Comment on above: Order Comment: 1 Performed By: #### L 3100.1350, L503.6030, L100.0100, L300.4310, L501.5200, L504.2610, L501.6710, L101.9900, L500.4050, L100.9950, L300.3900, L501.2300, L503.6550, L300.8000 ####[facility] [address] [place], [place], [phone] Albumin/Globulin [Mass ratio] 1.1 {ratio} Normal 0.9-2.4 [facility] Comment on above: Order Comment: 1 Performed By: #### L 3100.1350, L503.6030, L100.0100, L300.4310, L501.5200, L504.2610, L501.6710, L101.9900, L500.4050, L100.9950, L300.3900, L501.2300, L503.6550, L300.8000 ####[facility] [address] [place], [place], [phone] ALK P 111 U/L Normal 45-117 [facility] Comment on above: Order Comment: 1 Performed By: #### L 3100.1350, L503.6030, L100.0100, L300.4310, L501.5200, L504.2610, L501.6710, L101.9900, L500.4050, L100.9950, L300.3900, L501.2300, L503.6550, L300.8000 ####[facility] [address] [place], [place], [phone] ALT [Catalytic activity/Vol] 16 U/L Normal 16-61 [facility] Comment on above: Order Comment: 1 Performed By: #### L 3100.1350, L503.6030, L100.0100, L300.4310, L501.5200, L504.2610, L501.6710, L101.9900, L500.4050, L100.9950, L300.3900, L501.2300, L503.6550, L300.8000 ####[facility] [address] [place], [address] AST [Catalytic activity/Vol] 11 U/L Low 15-37 [facility] Comment on above: Order Comment: 1 Performed By: #### L 3100.1350, L503.6030, L100.0100, L300.4310, L501.5200, L504.2610, L501.6710, L101.9900, L500.4050, L100.9950, L300.3900, L501.2300, L503.6550, L300.8000 ####[facility] [address] [place], [address] Bilirubin [Mass/Vol] 0.50 mg/dL Normal 0.20-1.[address] [facility] Comment on above: Order Comment: 1 Result Comment: For patients on eltrombopag therapy, use of Dimension Strum TBIL is not recommended. Performed By: #### L 3100.1350, L503.6030, L100.0100, L300.4310, L501.5200, L504.2610, L501.6710, L101.9900, L500.4050, L100.9950, L300.3900, L501.2300, L503.6550, L300.8000 ####[facility] [address] [place], [address] BUN/CRE 12.7 RATIO Normal 10-20 [facility] Comment on above: Order Comment: 1 Performed By: #### L 3100.1350, L503.6030, L100.0100, L300.4310, L501.5200, L504.2610, L501.6710, L101.9900, L500.4050, L100.9950, L300.3900, L501.2300, L503.6550, L300.8000 ####[facility] [address] [place], [place], [phone] CA,Total 9.5 mg/dL Normal 8.5-10.1 [facility] Comment on above: Order Comment: 1 Performed By: #### L 3100.1350, L503.6030, L100.0100, L300.4310, L501.5200, L504.2610, L501.6710, L101.9900, L500.4050, L100.9950, L300.3900, L501.2300, L503.6550, L300.8000 ####[facility] [address] [place], [place], [phone] Chloride [Moles/Vol] 108 mmol/L High 98-[address] [facility] Comment on above: Order Comment: 1 Performed By: #### L 3100.1350, L503.6030, L100.0100, L300.4310, L501.5200, L504.2610, L501.6710, L101.9900, L500.4050, L100.9950, L300.3900, L501.2300, L503.6550, L300.8000 ####[facility] [address] [place], [place], [phone] CO2 [Moles/Vol] 26.0 mmol/L Normal 21.0-32.0 [facility] Comment on above: Order Comment: 1 Performed By: #### L 3100.1350, L503.6030, L100.0100, L300.4310, L501.5200, L504.2610, L501.6710, L101.9900, L500.4050, L100.9950, L300.3900, L501.2300, L503.6550, L300.8000 ####[facility] [address] [place], [place], [phone] Creatinine [Mass/Vol] 2.05 mg/dL High 0.70-1.30 [facility] Comment on above: Order Comment: 1 Result Comment: The validity of the calculated GFR GFRAA in patients over70 years has not been determined. Clinical correlation isessential. Performed By: #### L 3100.1350, L503.6030, L100.0100, L300.4310, L501.5200, L504.2610, L501.6710, L101.9900, L500.4050, L100.9950, L300.3900, L501.2300, L503.6550, L300.8000 ####[facility] [address] [place], [place], [phone] EST GFR - AA 40 mL/min Low >60 [facility] Comment on above: Order Comment: 1 Result Comment: Afri can Japanese GFR Calc Performed By: #### L 3100.1350, L503.6030, L100.0100, L300.4310, L501.5200, L504.2610, L501.6710, L101.9900, L500.4050, L100.9950, L300.3900, L501.2300, L503.6550, L300.8000 ####[facility] [address] [place], [address] GAP 5 Normal 5-15 [facility] Comment on above: Order Comment: 1 Performed By: #### L 3100.1350, L503.6030, L100.0100, L300.4310, L501.5200, L504.2610, L501.6710, L101.9900, L500.4050, L100.9950, L300.3900, L501.2300, L503.6550, L300.8000 ####[facility] [address] [place], [address] GFR/1.73 sq M.predicted among non-blacks MDRD (S/P/Bld) [Vol rate/Area] 33 mL/min/{1.73_m2} Low >60 [facility] Comment on above: Order Comment: 1 Result Comment: Non- GFR Calc Performed By: #### L 3100.1350, L503.6030, L100.0100, L300.4310, L501.5200, L504.2610, L501.6710, L101.9900, L500.4050, L100.9950, L300.3900, L501.2300, L503.6550, L300.8000 ####[facility] [address] [place], [place], [phone] Globulin (S) [Mass/Vol] 3.6 g/dL Normal 2.2-4.2 [facility] Comment on above: Order Comment: 1 Performed By: #### L 3100.1350, L503.6030, L100.0100, L300.4310, L501.5200, L504.2610, L501.6710, L101.9900, L500.4050, L100.9950, L300.3900, L501.2300, L503.6550, L300.8000 ####[facility] [address] [place], [place], [phone] Glucose [Mass/Vol] 124 mg/dL High 74-106 [facility] Comment on above: Order Comment: 1 Result Comment: Fast ing Glucose result from 100 to 125 mg/dLsuggests IMPAIRED HOMEOSTASIS per A.D.A. criteria. Performed By: #### L 3100.1350, L503.6030, L100.0100, L300.4310, L501.5200, L504.2610, L501.6710, L101.9900, L500.4050, L100.9950, L300.3900, L501.2300, L503.6550, L300.8000 ####[facility] [address] [place], [place], [phone] Potassium [Moles/Vol] 4.4 mmol/L Normal 3.5-5.1 [facility] Comment on above: Order Comment: 1 Performed By: #### L 3100.1350, L503.6030, L100.0100, L300.4310, L501.5200, L504.2610, L501.6710, L101.9900, L500.4050, L100.9950, L300.3900, L501.2300, L503.6550, L300.8000 ####[facility] [address] [place], [phone] Sodium [Moles/Vol] 138 mmol/L Normal 136-145 [facility] Comment on above: Order Comment: 1 Performed By: #### L 3100.1350, L503.6030, L100.0100, L300.4310, L501.5200, L504.2610, L501.6710, L101.9900, L500.4050, L100.9950, L300.3900, L501.2300, L503.6550, L300.8000 ####[facility] [address] [place], [place], [phone] T PROT 7.4 g/dL Normal 6.4-8.2 [facility] Comment on above: Order Comment: 1 Performed By: #### L 3100.1350, L503.6030, L100.0100, L300.4310, L501.5200, L504.2610, L501.6710, L101.9900, L500.4050, L100.9950, L300.3900, L501.2300, L503.6550, L300.8000 ####[facility] [address] [place], [place], [phone](607) Urea nitrogen [Mass/Vol] 26 mg/dL High 7-18 [facility] Comment on above: Order Comment: 1 Performed By: #### L 3100.1350, L503.6030, L100.0100, L300.4310, L501.5200, L504.2610, L501.6710, L101.9900, L500.4050, L100.9950, L300.3900, L501.2300, L503.6550, L300.8000 ####[facility] [address] [place], [place], [phone] D-Dimer Quantitative (DVT/PE )on 08-21-2024 D-DIMER QUANT 2.76 FEU/ug/m Invalid Interpretation Code 0.27-0.49 [facility] Comment on above: Result Comment: D-Di moody ELEVATED (>0.49): Additional studies and clinicalassessments are indicated to conclude diagnosis of:Deep Vein Thrombosis (DVT) or Pulmonary Embolism (PE)CRITICAL VALUE CALLED TO LORENZO RANDALL10/21/23 1015 Becca Garcia.RESULTS READ BACK BY SAME. Performed By: #### L 3100.1350, L503.6030, L100.0100, L300.4310, L501.5200, L504.2610, L501.6710, L101.9900, L500.4050, L100.9950, L300.3900, L501.2300, L503.6550, L300.8000 ####[facility] [address] [place], [place], [phone] Erythrocyte Sed Rateon 08-21 SED RATE 15 mm/hr Normal 0-20 [facility] Comment on above: Performed By: #### L 3100.1350, L503.6030, L100.0100, L300.4310, L501.5200, L504.2610, L501.6710, L101.9900, L500.4050, L100.9950, L300.3900, L501.2300, L503.6550, L300.8000 ####[facility] [address] [place], [place], [phone] Erythrocyte sedimentation ra teOrdered By: Galileo Ohara on 08-21-2024 ESR (Bld) [Velocity] 15 mm/h 0-[address] [facility] Erythropoietin (EPO) QnOrder ed By: Galileo Ohara on 08-21-2024 Erythropoietin 33.4 mIU/mL High 2.6-18.5 [facility] Comment on above: [employer] Uni[employer] el DxI 800 Immunoassay SystemValues obtained with different assay methods or kits cannotbe used interchangeably. Results cannot be interpreted asabsolute evidence of the presence or absence of malignantdisease.Performed at: [facility] [id number] Director: Juan Carson PhD, Phone: [phone] Ferritinon 08-21-2024 Ferritin [Mass/Vol] 373 ng/mL Normal 26-388 [facility] Comment on above: Order Comment: 1 Performed By: #### L 3100.1350, L503.6030, L100.0100, L300.4310, L501.5200, L504.2610, L501.6710, L101.9900, L500.4050, L100.9950, L300.3900, L501.2300, L503.6550, L300.8000 ####[facility] [address] [place], [place], [phone] Hemoglobin (Reticulocytes) [ Entitic mass]Ordered By: Galileo Ohara on 08-21-2024 Reticulocyte Hemoglobin Equivalent 35.1 pg High 30-35 [facility] Immature reticulocyte fracti onOrdered By: Galileo Ohara on 08-21-2024 Immature Reticulocyte Fraction 15.10 % 3.00-15.90 [facility] International normalized rat io (INR) calculationOrdered By: Galileo Ohara on 08-21-2024 INR Coag (Bld) [Relative time] 1.1 {INR} [facility] Iron+Iron Binding Capacityon 08-21-2024 Iron [Mass/Vol] 37 ug/dL Low 65-175 [facility] Comment on above: Order Comment: 1 Performed By: #### L 3100.1350, L503.6030, L100.0100, L300.4310, L501.5200, L504.2610, L501.6710, L101.9900, L500.4050, L100.9950, L300.3900, L501.2300, L503.6550, L300.8000 ####[facility] [address] [place], [place], [phone] IRON SATURATION 13.8 Low 15.0-55.0 [facility] Comment on above: Order Comment: 1 Performed By: #### L 3100.1350, L503.6030, L100.0100, L300.4310, L501.5200, L504.2610, L501.6710, L101.9900, L500.4050, L100.9950, L300.3900, L501.2300, L503.6550, L300.8000 ####[facility] [address] [place], [place], [phone] TIBC 269 ug/dL Normal 250-450 [facility] Comment on above: Order Comment: 1 Performed By: #### L 3100.1350, L503.6030, L100.0100, L300.4310, L501.5200, L504.2610, L501.6710, L101.9900, L500.4050, L100.9950, L300.3900, L501.2300, L503.6550, L300.8000 ####[facility] [address] [place], [place], [phone] LDHon 08-21-2024 LDH 180 U/L Normal 87-241 [facility] Comment on above: Order Comment: 1 Performed By: #### L 3100.1350, L503.6030, L100.0100, L300.4310, L501.5200, L504.2610, L501.6710, L101.9900, L500.4050, L100.9950, L300.3900, L501.2300, L503.6550, L300.8000 ####[facility] [address] [place], [place], [phone] Magnesiumon 08-21-2024 Magnesium [Mass/Vol] 2.2 mg/dL Normal 1.6-2.[address] [facility] Comment on above: Order Comment: 1 Performed By: #### L 3100.1350, L503.6030, L100.0100, L300.4310, L501.5200, L504.2610, L501.6710, L101.9900, L500.4050, L100.9950, L300.3900, L501.2300, L503.6550, L300.8000 ####[facility] [address] [place], [place], [phone] Magnesium measurementOrdered By: Galileo Ohara on 08-21-2024 Magnesium [Mass/Vol] 2.2 mg/dL 1.6-2.[address] [facility] Oncology Visit Reporton Oncology Visit Report Normal [facility] Partial Thromboplast Timeon 08-21-2024 aPTT Coag (Bld) [Time] 39.5 s High 24.1-36.2 [facility] Comment on above: Performed By: #### L 3100.1350, L503.6030, L100.0100, L300.4310, L501.5200, L504.2610, L501.6710, L101.9900, L500.4050, L100.9950, L300.3900, L501.2300, L503.6550, L300.8000 ####[facility] [address] [place], [place], [phone] Phosphoruson 08-21-2024 Phosphate [Mass/Vol] 3.1 mg/dL Normal 2.5-4.[address] [facility] Comment on above: Order Comment: 1 Performed By: #### L 3100.1350, L503.6030, L100.0100, L300.4310, L501.5200, L504.2610, L501.6710, L101.9900, L500.4050, L100.9950, L300.3900, L501.2300, L503.6550, L300.8000 ####[facility] [address] [place], [place], [phone] Phosphorus measurementOrdere d By: Galileo Ohara on 08-21-2024 Phosphorus Level 3.1 mg/dL 2.5-4.9 [facility] Prothrombin Time w/INRon INR Coag (PPP) [Relative time] 1.1 {INR} Normal [facility] Comment on above: Performed By: #### L 3100.1350, L503.6030, L100.0100, L300.4310, L501.5200, L504.2610, L501.6710, L101.9900, L500.4050, L100.9950, L300.3900, L501.2300, L503.6550, L300.8000 ####[facility] [address] [place], [place], [phone] PT Coag (PPP) [Time] 14.1 s Normal 11.7-14.[address] [facility] Comment on above: Performed By: #### L 3100.1350, L503.6030, L100.0100, L300.4310, L501.5200, L504.2610, L501.6710, L101.9900, L500.4050, L100.9950, L300.3900, L501.2300, L503.6550, L300.8000 ####[facility] [address] [place], [place], [phone] Prothrombin timeOrdered By: Galileo Ohara on 08-21-2024 PT Coag (PPP) [Time] 14.1 s 11.7-14.[address] [facility] Retic Panelon 08-21-2024 IM RET FRACTION 15.10 Normal 3.00-15.90 [facility] Comment on above: Performed By: #### L 3100.1350, L503.6030, L100.0100, L300.4310, L501.5200, L504.2610, L501.6710, L101.9900, L500.4050, L100.9950, L300.3900, L501.2300, L503.6550, L300.8000 ####[facility] [address] [place], [place], [phone] RET-HE 35.1 pg High 30-35 [facility] Comment on above: Performed By: #### L 3100.1350, L503.6030, L100.0100, L300.4310, L501.5200, L504.2610, L501.6710, L101.9900, L500.4050, L100.9950, L300.3900, L501.2300, L503.6550, L300.8000 ####[facility] [address] [place], [address] Retic Count 1.59 High 0.5-1.5 [facility] Comment on above: Performed By: #### L 3100.1350, L503.6030, L100.0100, L300.4310, L501.5200, L504.2610, L501.6710, L101.9900, L500.4050, L100.9950, L300.3900, L501.2300, L503.6550, L300.8000 ####[facility] [address] [place], [address] Reticulocyte hemoglobin equi valent (RET-He) measurementOrdered By: Galileo Ohara on 08-21-2024 Hemoglobin (Reticulocytes) [Entitic mass] 35.1 pg High 30-35 [facility] Reticulocytes Auto (Bld) [#/ Vol]Ordered By: Galileo Ohara on 08-21-2024 Reticulocyte Count 1.59 % High 0.5-1.5 [facility] Reticulocytes/100 RBC (Bld) 1.59 % High 0.5-1.5 [facility] Serum or plasma erythropoiet in (EPO) measurement (units/volume)Ordered By: Galileo Ohara on 08-21-2024 Erythropoietin (EPO) Qn 33.4 mIU/mL High 2.6-18.5 [facility] Comment on above: [employer] Uni[employer] DxI 800 Immunoassay SystemValues obtained with different assay methods or kits cannotbe used interchangeably. Results cannot be interpreted asabsolute evidence of the presence or absence of malignantdisease.Performed at: [employer] [id number] Director: Juan Carson PhD, Phone: [phone] aPTT Coag (PPP) [Time]Ordere d By: Galileo Ohara on 08-21-2024 aPTT Coag (Bld) [Time] 39.5 s High 24.1-36.2 [facility] Venous Duplex US - Allan Extre mon 08-14-2024 Venous Duplex US - Allan Extrem Normal [facility] Basic Metabolic Profile (BMP )on 08-09-2024 BUN/CRE 11.8 RATIO Normal 08-04 [facility] Comment on above: Performed By: #### L 100.0500, L500.2500 ####[facility] [address] [place], [address] CA,Total 9.0 mg/dL Normal 8.5-10.1 [facility] Comment on above: Performed By: #### L 100.0500, L500.2500 ####[facility] [address] [place], [address] Chloride [Moles/Vol] 108 mmol/L High 98-[address] [facility] Comment on above: Performed By: #### L 100.0500, L500.2500 ####[facility] [address] [place], [address] CO2 [Moles/Vol] 24.0 mmol/L Normal 21.0-32.0 [facility] Comment on above: Performed By: #### L 100.0500, L500.2500 ####[facility] [address] [place], [address] Creatinine [Mass/Vol] 2.04 mg/dL High 0.70-1.30 [facility] Comment on above: Result Comment: The validity of the calculated GFR GFRAA in patients over70 years has not been determined. Clinical correlation isessential. Performed By: #### L 100.0500, L500.2500 ####[facility] [address] [place], [address] EST GFR - AA 40 mL/min Low >60 [facility] Comment on above: Result Comment: Afri can Japanese GFR Calc Performed By: #### L 100.0500, L500.2500 ####[facility] [address] [place], [address] GAP 8 Normal 5-15 [facility] Comment on above: Performed By: #### L 100.0500, L500.2500 ####[facility] [address] [place], [address] GFR/1.73 sq M.predicted among non-blacks MDRD (S/P/Bld) [Vol rate/Area] 33 mL/min/{1.73_m2} Low >60 [facility] Comment on above: Result Comment: Non- GFR Calc Performed By: #### L 100.0500, L500.2500 ####[facility] [address] [place], [address] Glucose [Mass/Vol] 130 mg/dL High 74-106 [facility] Comment on above: Result Comment: Fast ing Glucose result greater than or equal to 126 mg/dLsuggests DIABETES MELLITUS per A.D.A. criteria. Performed By: #### L 100.0500, L500.2500 ####[facility] [address] [place], [address] Potassium [Moles/Vol] 4.0 mmol/L Normal 3.5-5.1 [facility] Comment on above: Performed By: #### L 100.0500, L500.2500 ####[facility] [address] [place], [address] Sodium [Moles/Vol] 140 mmol/L Normal 136-145 [facility] Comment on above: Performed By: #### L 100.0500, L500.2500 ####[facility] [address] [place], [address] Urea nitrogen [Mass/Vol] 24 mg/dL High 7-18 [facility] Comment on above: Performed By: #### L 100.0500, L500.2500 ####[facility] [address] [place], [address] CBC-Complete Blood Cnt No Di ffon 08-09-2024 Erythrocyte distribution width (RBC) [Ratio] 13.7 % Normal 11.6-14.6 [facility] Comment on above: Performed By: #### L 100.0500, L500.2500 ####[facility] [address] [place], [address] Hematocrit (Bld) [Volume fraction] 31.7 % Low 40-54 [facility] Comment on above: Performed By: #### L 100.0500, L500.2500 ####[facility] [address] [place], [address] Hemoglobin (Bld) [Mass/Vol] 9.8 g/dL Low 13.0-16.5 [facility] Comment on above: Performed By: #### L 100.0500, L500.2500 ####[facility] [address] [place], [address] MCH (RBC) [Entitic mass] 31.0 pg Normal 27.0-32.0 [facility] Comment on above: Performed By: #### L 100.0500, L500.2500 ####[facility] [address] [place], [address] MCHC (RBC) [Mass/Vol] 30.9 g/dL Low 32-36 [facility] Comment on above: Performed By: #### L 100.0500, L500.2500 ####[facility] [address] [place], [address] MCV (RBC) [Entitic vol] 100.3 fL High 80-94 [facility] Comment on above: Performed By: #### L 100.0500, L500.2500 ####[facility] [address] [place], [address] Platelet mean volume (Bld) [Entitic vol] 10.6 fL Normal 6.2-12.0 [facility] Comment on above: Performed By: #### L 100.0500, L500.2500 ####[facility] [address] [place], [address] Platelets (Bld) [#/Vol] 554 10*3/uL High 150-450 [facility] Comment on above: Performed By: #### L 100.0500, L500.2500 ####[facility] [address] [place], [address] RBC (Bld) [#/Vol] 3.16 10*6/uL Low 4.6-6.2 [facility] Comment on above: Performed By: #### L 100.0500, L500.2500 ####[facility] [address] [place], [address] RDW SD 50.6 fl High 35.1-43.9 [facility] Comment on above: Performed By: #### L 100.0500, L500.2500 ####[facility] [address] [place], [address] WBC (Bld) [#/Vol] 12.5 10*3/uL High 4.4-11.0 [facility] Comment on above: Performed By: #### L 100.0500, L500.2500 ####[facility] [address] [place], [address] Bedside Glucoseon 08-08-2024 FINGERSTICK GLU 142 mg/dL High 74-106 [facility] Comment on above: Result Comment: COLLEEN GEMENT OF PATIENT CARE PER NURSING PROTOCOL Performed By: #### L 501.080 ####[facility] [address] [place], [address] FINGERSTICK GLU 123 mg/dL High 74-106 [facility] Comment on above: Result Comment: COLLEEN GEMENT OF PATIENT CARE PER NURSING PROTOCOL Performed By: #### L 501.080 ####[facility] [address] [place], [address] Miscellaneous Lab Procedureo n 08-08-2024 [facility] TEST Normal [facility] Comment on above: Order Comment: 00 1453 A1C Result Comment: TEST RESULTS LIMITS Hemoglobin A1c 6.4 % High 4.8-5.6 Please Note: Prediabetes: 5.7 - 6.4 Diabetes: >6.4 Glycemic control for adults with diabetes: <7.0 TESTING PERFORMED AT [facility]. ORIGINAL REPORT ON FILE IN LAB CONTAINS ADDITIONAL TEST SITE INFORMATION. Performed By: #### L 801.1541 ####[facility] [address] [place], [address] Bedside Glucoseon 08-07-2024 FINGERSTICK GLU 110 mg/dL High 74-106 [facility] Comment on above: Result Comment: COLLEEN GEMENT OF PATIENT CARE PER NURSING PROTOCOL Performed By: #### L 501.080 ####[facility] [address] [place], [address] FINGERSTICK GLU 120 mg/dL High 74-106 [facility] Comment on above: Result Comment: COLLEEN GEMENT OF PATIENT CARE PER NURSING PROTOCOL Performed By: #### L 501.080 ####[facility] [address] [place], [address] FINGERSTICK GLU 138 mg/dL High -106 [facility] Comment on above: Result Comment: COLLEEN GEMENT OF PATIENT CARE PER NURSING PROTOCOL Performed By: #### L 501.080 ####[facility] [address] [place], [address] FINGERSTICK GLU 122 mg/dL High -106 [facility] Comment on above: Result Comment: COLLEEN GEMENT OF PATIENT CARE PER NURSING PROTOCOL Performed By: #### L 501.080 ####[facility] [address] [place], [address] Magnesiumon 08-07-2024 Magnesium [Mass/Vol] 2.2 mg/dL Normal 1.6-2.[address] [facility] Comment on above: Performed By: #### L 501.2300, L501.5200 ####[facility] [address] [place], [address] Phosphoruson 08-07-2024 Phosphate [Mass/Vol] 2.5 mg/dL Normal 2.5-4.[address] [facility] Comment on above: Performed By: #### L 501.2300, L501.5200 ####[facility] [address] [place], [address] Bedside Glucoseon 08-06-2024 FINGERSTICK GLU 108 mg/dL High 74-106 [facility] Comment on above: Result Comment: COLLEEN GEMENT OF PATIENT CARE PER NURSING PROTOCOL Performed By: #### L 501.080 ####[facility] [address] [place], [address] FINGERSTICK GLU 151 mg/dL High 74-106 [facility] Comment on above: Result Comment: COLLEEN GEMENT OF PATIENT CARE PER NURSING PROTOCOL Performed By: #### L 501.080 ####[facility] [address] [place], [address] FINGERSTICK GLU 133 mg/dL High 74-106 [facility] Comment on above: Result Comment: COLLEEN GEMENT OF PATIENT CARE PER NURSING PROTOCOL Performed By: #### L 501.080 ####[facility] [address] [place], [address] FINGERSTICK GLU 92 mg/dL Normal 74-106 [facility] Comment on above: Result Comment: COLLEEN GEMENT OF PATIENT CARE PER NURSING PROTOCOL Performed By: #### L 501.080 ####[facility] [address] [place], [address] CBC W/Diff, Automatedon 07-17 Absolute Lymph 1.81 X10 3/uL Normal 0.83-4.51 [facility] Comment on above: Performed By: #### L 100.0100, L501.2300, L501.5200, L500.4050 ####[facility] [address] [place], [address] Absolute Neut 6.0 X10 3/uL Normal 2.0-7.7 [facility] Comment on above: Performed By: #### L 100.0100, L501.2300, L501.5200, L500.4050 ####[facility] [address] [place], [address] Basophils/100 WBC (Bld) 0.7 % Normal 0-1 [facility] Comment on above: Performed By: #### L 100.0100, L501.2300, L501.5200, L500.4050 ####[facility] [address] [place], [address] Eosinophils/100 WBC (Bld) 6.3 % High 0-5 [facility] Comment on above: Performed By: #### L 100.0100, L501.2300, L501.5200, L500.4050 ####[facility] [address] [place], [address] Erythrocyte distribution width (RBC) [Ratio] 13.9 % Normal 11.6-14.6 [facility] Comment on above: Performed By: #### L 100.0100, L501.2300, L501.5200, L500.4050 ####[facility] [address] [place], [address] Hematocrit (Bld) [Volume fraction] 28.9 % Low 40-54 [facility] Comment on above: Performed By: #### L 100.0100, L501.2300, L501.5200, L500.4050 ####[facility] [address] [place], [address] Hemoglobin (Bld) [Mass/Vol] 9.4 g/dL Low 13.0-16.5 [facility] Comment on above: Performed By: #### L 100.0100, L501.2300, L501.5200, L500.4050 ####[facility] [address] [place], [address] IG% 0.500 Normal 0.0-0.9 [facility] Comment on above: Result Comment: IG% - Immature Granulocytes (promyelocytes, myelocytes andmetamyelocytes) > 1% indicates that a LEFT SHIFT is Present. Performed By: #### L 100.0100, L501.2300, L501.5200, L500.4050 ####[facility] [address] [place], [address] Lymphocytes/100 WBC (Bld) 18.7 % Low 19-41 [facility] Comment on above: Performed By: #### L 100.0100, L501.2300, L501.5200, L500.4050 ####[facility] [address] [place], [address] MCH (RBC) [Entitic mass] 32.0 pg Normal 27.0-32.0 [facility] Comment on above: Performed By: #### L 100.0100, L501.2300, L501.5200, L500.4050 ####[facility] [address] [place], [address] MCHC (RBC) [Mass/Vol] 32.5 g/dL Normal 32-36 [facility] Comment on above: Performed By: #### L 100.0100, L501.2300, L501.5200, L500.4050 ####[facility] [address] [place], [address] MCV (RBC) [Entitic vol] 98.3 fL High 80-94 [facility] Comment on above: Performed By: #### L 100.0100, L501.2300, L501.5200, L500.4050 ####[facility] [address] [place], [address] Monocytes/100 WBC (Bld) 11.3 % High 0-10 [facility] Comment on above: Performed By: #### L 100.0100, L501.2300, L501.5200, L500.4050 ####[facility] [address] [place], [address] Neutrophils/100 WBC (Bld) 62.5 % Normal 47-70 [facility] Comment on above: Performed By: #### L 100.0100, L501.2300, L501.5200, L500.4050 ####[facility] [address] [place], [address] Nucleated RBC (Bld) [#/Vol] 0 10*3/uL Normal 0-5 [facility] Comment on above: Performed By: #### L 100.0100, L501.2300, L501.5200, L500.4050 ####[facility] [address] [place], [address] Platelet mean volume (Bld) [Entitic vol] 10.7 fL Normal 6.2-12.0 [facility] Comment on above: Performed By: #### L 100.0100, L501.2300, L501.5200, L500.4050 ####[facility] [address] [place], [address] Platelets (Bld) [#/Vol] 354 10*3/uL Normal 150-450 [facility] Comment on above: Performed By: #### L 100.0100, L501.2300, L501.5200, L500.4050 ####[facility] [address] [place], [address] RBC (Bld) [#/Vol] 2.94 10*6/uL Low 4.6-6.2 [facility] Comment on above: Performed By: #### L 100.0100, L501.2300, L501.5200, L500.4050 ####[facility] [address] [place], [address] RDW SD 50.0 fl High 35.1-43.9 [facility] Comment on above: Performed By: #### L 100.0100, L501.2300, L501.5200, L500.4050 ####[facility] [address] [place], [address] WBC (Bld) [#/Vol] 9.7 10*3/uL Normal 4.4-11.0 [facility] Comment on above: Performed By: #### L 100.0100, L501.2300, L501.5200, L500.4050 ####[facility] [address] [place], [address] Comprehensive Metabolic Prof cton 08-06-2024 Albumin [Mass/Vol] 2.8 g/dL Low 3.2-5.0 [facility] Comment on above: Performed By: #### L 100.0100, L501.2300, L501.5200, L500.4050 ####[facility] [address] [place], [address] Albumin/Globulin [Mass ratio] 0.8 {ratio} Low 0.9-2.4 [facility] Comment on above: Performed By: #### L 100.0100, L501.2300, L501.5200, L500.4050 ####[facility] [address] [place], [address] ALK P 118 U/L High 45-117 [facility] Comment on above: Performed By: #### L 100.0100, L501.2300, L501.5200, L500.4050 ####[facility] [address] [place], [address] ALT [Catalytic activity/Vol] 27 U/L Normal 16-61 [facility] Comment on above: Performed By: #### L 100.0100, L501.2300, L501.5200, L500.4050 ####[facility] [address] [place], [address] AST [Catalytic activity/Vol] 19 U/L Normal 15-37 [facility] Comment on above: Performed By: #### L 100.0100, L501.2300, L501.5200, L500.4050 ####[facility] [address] [place], [address] Bilirubin [Mass/Vol] 1.00 mg/dL Normal 0.20-1.[address] [facility] Comment on above: Result Comment: For patients on eltrombopag therapy, use of Dimension Strum TBIL is not recommended. Performed By: #### L 100.0100, L501.2300, L501.5200, L500.4050 ####[facility] [address] [place], [address] BUN/CRE 12.8 RATIO Normal 10-20 [facility] Comment on above: Performed By: #### L 100.0100, L501.2300, L501.5200, L500.4050 ####[facility] [address] [place], [address] CA,Total 8.8 mg/dL Normal 8.5-10.1 [facility] Comment on above: Performed By: #### L 100.0100, L501.2300, L501.5200, L500.4050 ####[facility] [address] [place], [address] Chloride [Moles/Vol] 109 mmol/L High 98-[address] [facility] Comment on above: Performed By: #### L 100.0100, L501.2300, L501.5200, L500.4050 ####[facility] [address] [place], [address] CO2 [Moles/Vol] 30.0 mmol/L Normal 21.0-32.0 [facility] Comment on above: Performed By: #### L 100.0100, L501.2300, L501.5200, L500.4050 ####[facility] [address] [place], [address] Creatinine [Mass/Vol] 1.88 mg/dL High 0.70-1.30 [facility] Comment on above: Result Comment: The validity of the calculated GFR GFRAA in patients over70 years has not been determined. Clinical correlation isessential. Performed By: #### L 100.0100, L501.2300, L501.5200, L500.4050 ####[facility] [address] [place], [address] ECRCL 32.09 ml/min Normal [facility] Comment on above: Performed By: #### L 100.0100, L501.2300, L501.5200, L500.4050 ####[facility] [address] [place], [address] EST GFR - AA 44 mL/min Low >60 [facility] Comment on above: Result Comment: Afri can Japanese GFR Calc Performed By: #### L 100.0100, L501.2300, L501.5200, L500.4050 ####[facility] [address] [place], [address] GAP 3 Low 5-15 [facility] Comment on above: Performed By: #### L 100.0100, L501.2300, L501.5200, L500.4050 ####[facility] [address] [place], [address] GFR/1.73 sq M.predicted among non-blacks MDRD (S/P/Bld) [Vol rate/Area] 37 mL/min/{1.73_m2} Low >60 [facility] Comment on above: Result Comment: Non- GFR Calc Performed By: #### L 100.0100, L501.2300, L501.5200, L500.4050 ####[facility] [address] [place], [address] Globulin (S) [Mass/Vol] 3.7 g/dL Normal 2.2-4.2 [facility] Comment on above: Performed By: #### L 100.0100, L501.2300, L501.5200, L500.4050 ####[facility] [address] [place], [address] Glucose [Mass/Vol] 122 mg/dL High 74-106 [facility] Comment on above: Result Comment: Fast ing Glucose result from 100 to 125 mg/dLsuggests IMPAIRED HOMEOSTASIS per A.D.A. criteria. Performed By: #### L 100.0100, L501.2300, L501.5200, L500.4050 ####[facility] [address] [place], [address] Potassium [Moles/Vol] 3.9 mmol/L Normal 3.5-5.1 [facility] Comment on above: Performed By: #### L 100.0100, L501.2300, L501.5200, L500.4050 ####[facility] [address] [place], [address] Sodium [Moles/Vol] 142 mmol/L Normal 136-145 [facility] Comment on above: Performed By: #### L 100.0100, L501.2300, L501.5200, L500.4050 ####[facility] [address] [place], [address] T PROT 6.5 g/dL Normal 6.4-8.2 [facility] Comment on above: Performed By: #### L 100.0100, L501.2300, L501.5200, L500.4050 ####[facility] [address] [place], [address] Urea nitrogen [Mass/Vol] 24 mg/dL High 7-18 [facility] Comment on above: Performed By: #### L 100.0100, L501.2300, L501.5200, L500.4050 ####[facility] [address] [place], [address] Magnesiumon 08-06-2024 Magnesium [Mass/Vol] 2.3 mg/dL Normal 1.6-2.[address] [facility] Comment on above: Performed By: #### L 100.0100, L501.2300, L501.5200, L500.4050 ####[facility] [address] [place], [address] Phosphoruson 08-06-2024 Phosphate [Mass/Vol] 2.7 mg/dL Normal 2.5-4.[address] [facility] Comment on above: Performed By: #### L 100.0100, L501.2300, L501.5200, L500.4050 ####[facility] [address] [place], [address] 12 Lead EKGon 08-05-2024 12 Lead EKG Normal [facility] Basic Metabolic Profile (BMP )on 08-05-2024 BUN/CRE 15.2 RATIO Normal 08-04 [facility] Comment on above: Performed By: #### L 500.2500, L503.6005, L100.0100 ####[facility] [address] [place], [address] CA,Total 8.7 mg/dL Normal 8.5-10.1 [facility] Comment on above: Performed By: #### L 500.2500, L503.6005, L100.0100 ####[facility] [address] [place], [address] Chloride [Moles/Vol] 104 mmol/L Normal 98-[address] [facility] Comment on above: Performed By: #### L 500.2500, L503.6005, L100.0100 ####[facility] [address] [place], [address] CO2 [Moles/Vol] 26.0 mmol/L Normal 21.0-32.0 [facility] Comment on above: Performed By: #### L 500.2500, L503.6005, L100.0100 ####[facility] [address] [place], [address] Creatinine [Mass/Vol] 1.98 mg/dL High 0.70-1.30 [facility] Comment on above: Result Comment: The validity of the calculated GFR GFRAA in patients over70 years has not been determined. Clinical correlation isessential. Performed By: #### L 500.2500, L503.6005, L100.0100 ####[facility] [address] [place], [address] EST GFR - AA 42 mL/min Low >60 [facility] Comment on above: Result Comment: Afri can Japanese GFR Calc Performed By: #### L 500.2500, L503.6005, L100.0100 ####[facility] [address] [place], [address] GAP 8 Normal 5-15 [facility] Comment on above: Performed By: #### L 500.2500, L503.6005, L100.0100 ####[facility] [address] [place], [address] GFR/1.73 sq M.predicted among non-blacks MDRD (S/P/Bld) [Vol rate/Area] 35 mL/min/{1.73_m2} Low >60 [facility] Comment on above: Result Comment: Non- GFR Calc Performed By: #### L 500.2500, L503.6005, L100.0100 ####[facility] [address] [place], [address] Glucose [Mass/Vol] 132 mg/dL High 74-106 [facility] Comment on above: Result Comment: Fast ing Glucose result greater than or equal to 126 mg/dLsuggests DIABETES MELLITUS per A.D.A. criteria. Performed By: #### L 500.2500, L503.6005, L100.0100 ####[facility] [address] [place], [address] Potassium [Moles/Vol] 4.2 mmol/L Normal 3.5-5.1 [facility] Comment on above: Performed By: #### L 500.2500, L503.6005, L100.0100 ####[facility] [address] [place], [address] Sodium [Moles/Vol] 138 mmol/L Normal 136-145 [facility] Comment on above: Performed By: #### L 500.2500, L503.6005, L100.0100 ####[facility] [address] [place], [address] Urea nitrogen [Mass/Vol] 30 mg/dL High 7-18 [facility] Comment on above: Performed By: #### L 500.2500, L503.6005, L100.0100 ####[facility] [address] [place], [address] Bedside Glucoseon - FINGERSTICK GLU 134 mg/dL High 74-106 [facility] Comment on above: Result Comment: COLLEEN GEMENT OF PATIENT CARE PER NURSING PROTOCOL Performed By: #### L 501.080 ####[facility] [address] [place], [address] FINGERSTICK GLU 85 mg/dL Normal 74-106 [facility] Comment on above: Result Comment: COLLEEN GEMENT OF PATIENT CARE PER NURSING PROTOCOL Performed By: #### L 501.080 ####[facility] [address] [place], [address] CBC W/Diff, Automatedon 10-2 Absolute Lymph 1.26 X10 3/uL Normal 0.83-4.51 [facility] Comment on above: Performed By: #### L 500.2500, L503.6005, L100.0100 ####[facility] [address] [place], [address] Absolute Neut 7.8 X10 3/uL High 2.0-7.7 [facility] Comment on above: Performed By: #### L 500.2500, L503.6005, L100.0100 ####[facility] [address] [place], [address] Basophils/100 WBC (Bld) 0.9 % Normal 0-1 [facility] Comment on above: Performed By: #### L 500.2500, L503.6005, L100.0100 ####[facility] [address] [place], [address] Eosinophils/100 WBC (Bld) 3.4 % Normal 0-5 [facility] Comment on above: Performed By: #### L 500.2500, L503.6005, L100.0100 ####[facility] [address] [place], [address] Erythrocyte distribution width (RBC) [Ratio] 13.7 % Normal 11.6-14.6 [facility] Comment on above: Performed By: #### L 500.2500, L503.6005, L100.0100 ####[facility] [address] [place], [address] Hematocrit (Bld) [Volume fraction] 29.0 % Low 40-54 [facility] Comment on above: Performed By: #### L 500.2500, L503.6005, L100.0100 ####[facility] [address] [place], [address] Hemoglobin (Bld) [Mass/Vol] 9.3 g/dL Low 13.0-16.5 [facility] Comment on above: Performed By: #### L 500.2500, L503.6005, L100.0100 ####[facility] [address] [place], [address] IG% 0.600 Normal 0.0-0.9 [facility] Comment on above: Result Comment: IG% - Immature Granulocytes (promyelocytes, myelocytes andmetamyelocytes) > 1% indicates that a LEFT SHIFT is Present. Performed By: #### L 500.2500, L503.6005, L100.0100 ####[facility] [address] [place], [address] Lymphocytes/100 WBC (Bld) 11.9 % Low 19-41 [facility] Comment on above: Performed By: #### L 500.2500, L503.6005, L100.0100 ####[facility] [address] [place], [address] MCH (RBC) [Entitic mass] 32.1 pg High 27.0-32.0 [facility] Comment on above: Performed By: #### L 500.2500, L503.6005, L100.0100 ####[facility] [address] [place], [address] MCHC (RBC) [Mass/Vol] 32.1 g/dL Normal 32-36 [facility] Comment on above: Performed By: #### L 500.2500, L503.6005, L100.0100 ####[facility] [address] [place], [address] MCV (RBC) [Entitic vol] 100.0 fL High 80-94 [facility] Comment on above: Performed By: #### L 500.2500, L503.6005, L100.0100 ####[facility] [address] [place], [address] Monocytes/100 WBC (Bld) 9.5 % Normal 0-10 [facility] Comment on above: Performed By: #### L 500.2500, L503.6005, L100.0100 ####[facility] [address] [place], [address] Neutrophils/100 WBC (Bld) 73.7 % High 47-70 [facility] Comment on above: Performed By: #### L 500.2500, L503.6005, L100.0100 ####[facility] [address] [place], [address] Nucleated RBC (Bld) [#/Vol] 0 10*3/uL Normal 0-5 [facility] Comment on above: Performed By: #### L 500.2500, L503.6005, L100.0100 ####[facility] [address] [place], [address] Platelet mean volume (Bld) [Entitic vol] 10.7 fL Normal 6.2-12.0 [facility] Comment on above: Performed By: #### L 500.2500, L503.6005, L100.0100 ####[facility] [address] [place], [address] Platelets (Bld) [#/Vol] 300 10*3/uL Normal 150-450 [facility] Comment on above: Performed By: #### L 500.2500, L503.6005, L100.0100 ####[facility] [address] [place], [address] RBC (Bld) [#/Vol] 2.90 10*6/uL Low 4.6-6.2 [facility] Comment on above: Performed By: #### L 500.2500, L503.6005, L100.0100 ####[facility] [address] [place], [address] RDW SD 50.2 fl High 35.1-43.9 [facility] Comment on above: Performed By: #### L 500.2500, L503.6005, L100.0100 ####[facility] [address] [place], [address] WBC (Bld) [#/Vol] 10.6 10*3/uL Normal 4.4-11.0 [facility] Comment on above: Performed By: #### L 500.2500, L503.6005, L100.0100 ####[facility] [address] [place], [address] CTA Chest W/WO Contraston CTA Chest W/WO Contrast Normal [facility] Emergency Department Summary on 08-05-2024 Emergency Department Summary Normal [facility] H AND P Exam - Hospitaliston 08-05-2024 H&P Exam - Hospitalist Normal [facility] Lactic Acidon 08-05-2024 Lactate [Moles/Vol] 1.0 mmol/L Normal 0.4-1.9 [facility] Comment on above: Order Comment: Y Performed By: #### L 500.2500, L503.6005, L100.0100 ####[facility] [address] [place], [address] Thyroid Stim Hormone (TSH)on 08-05-2024 TSH 0.991 uIU/mL Normal 0.358-3.740 [facility] Comment on above: Performed By: #### L 501.9520 ####[facility] [address] [place], [address] Venous Duplex US, Unilateral on 08-05-2024 Venous Duplex US, Unilateral Normal [facility] Basic Metabolic Profile (BMP )on 07-31-2024 BUN/CRE 14.3 RATIO Normal 08-04 [facility] Comment on above: Performed By: #### L 500.2500 ####[facility] [address] [place], [address] CA,Total 8.2 mg/dL Low 8.5-10.1 [facility] Comment on above: Performed By: #### L 500.2500 ####[facility] [address] [place], [address] Chloride [Moles/Vol] 108 mmol/L High 98-[address] [facility] Comment on above: Performed By: #### L 500.2500 ####[facility] [address] [place], [address] CO2 [Moles/Vol] 25.0 mmol/L Normal 21.0-32.0 [facility] Comment on above: Performed By: #### L 500.2500 ####[facility] [address] [place], [address] Creatinine [Mass/Vol] 1.96 mg/dL High 0.70-1.30 [facility] Comment on above: Result Comment: The validity of the calculated GFR GFRAA in patients over70 years has not been determined. Clinical correlation isessential. Performed By: #### L 500.2500 ####[facility] [address] [place], [address] ECRCL 31.07 ml/min Normal [facility] Comment on above: Performed By: #### L 500.2500 ####[facility] [address] [place], [address] EST GFR - AA 42 mL/min Low >60 [facility] Comment on above: Result Comment: Afri can Japanese GFR Calc Performed By: #### L 500.2500 ####[facility] [address] [place], [address] GAP 5 Normal 5-15 [facility] Comment on above: Performed By: #### L 500.2500 ####[facility] [address] [place], [address] GFR/1.73 sq M.predicted among non-blacks MDRD (S/P/Bld) [Vol rate/Area] 35 mL/min/{1.73_m2} Low >60 [facility] Comment on above: Result Comment: Non- GFR Calc Performed By: #### L 500.2500 ####[facility] [address] [place], [address] Glucose [Mass/Vol] 195 mg/dL High 74-106 [facility] Comment on above: Result Comment: Fast ing Glucose result greater than or equal to 126 mg/dLsuggests DIABETES MELLITUS per A.D.A. criteria. Performed By: #### L 500.2500 ####[facility] [address] [place], [address] Potassium [Moles/Vol] 4.3 mmol/L Normal 3.5-5.1 [facility] Comment on above: Performed By: #### L 500.2500 ####[facility] [address] [place], [address] Sodium [Moles/Vol] 138 mmol/L Normal 136-145 [facility] Comment on above: Performed By: #### L 500.2500 ####[facility] [address] [place], [address] Urea nitrogen [Mass/Vol] 28 mg/dL High 7-18 [facility] Comment on above: Performed By: #### L 500.2500 ####[facility] [address] [place], [address] CBC-Complete Blood Cnt No Di ffon 07-31-2024 Erythrocyte distribution width (RBC) [Ratio] 14.3 % Normal 11.6-14.6 [facility] Comment on above: Performed By: #### L 100.0500 ####[facility] [address] [place], [address] Hematocrit (Bld) [Volume fraction] 30.0 % Low 40-54 [facility] Comment on above: Performed By: #### L 100.0500 ####[facility] [address] [place], [address] Hemoglobin (Bld) [Mass/Vol] 9.8 g/dL Low 13.0-16.5 [facility] Comment on above: Performed By: #### L 100.0500 ####[facility] [address] [place], [address] MCH (RBC) [Entitic mass] 32.3 pg High 27.0-32.0 [facility] Comment on above: Performed By: #### L 100.0500 ####[facility] [address] [place], [address] MCHC (RBC) [Mass/Vol] 32.7 g/dL Normal 32-36 [facility] Comment on above: Performed By: #### L 100.0500 ####[facility] [address] [place], [address] MCV (RBC) [Entitic vol] 99.0 fL High 80-94 [facility] Comment on above: Performed By: #### L 100.0500 ####[facility] [address] [place], [address] Platelet mean volume (Bld) [Entitic vol] 11.4 fL Normal 6.2-12.0 [facility] Comment on above: Performed By: #### L 100.0500 ####[facility] [address] [place], [address] Platelets (Bld) [#/Vol] 158 10*3/uL Normal 150-450 [facility] Comment on above: Performed By: #### L 100.0500 ####[facility] [address] [place], [address] RBC (Bld) [#/Vol] 3.03 10*6/uL Low 4.6-6.2 [facility] Comment on above: Performed By: #### L 100.0500 ####[facility] [address] [place], [address] RDW SD 51.2 fl High 35.1-43.9 [facility] Comment on above: Performed By: #### L 100.0500 ####[facility] [address] [place], [address] WBC (Bld) [#/Vol] 12.3 10*3/uL High 4.4-11.0 [facility] Comment on above: Performed By: #### L 100.0500 ####[facility] [address] [place], [address] Consultation - Urologyon Consultation - Urology Normal [facility] Discharge Instructionon 07-16 Discharge Instruction Normal [facility] Basic Metabolic Profile (BMP )on 07-30-2024 BUN/CRE 11.0 RATIO Normal -20 [facility] Comment on above: Performed By: #### L 100.0500, L500.2500 ####[facility] [address] [place], [address] CA,Total 8.4 mg/dL Low 8.5-10.1 [facility] Comment on above: Performed By: #### L 100.0500, L500.2500 ####[facility] [address] [place], [address] Chloride [Moles/Vol] 105 mmol/L Normal 98-[address] [facility] Comment on above: Performed By: #### L 100.0500, L500.2500 ####[facility] [address] [place], [address] CO2 [Moles/Vol] 27.0 mmol/L Normal 21.0-32.0 [facility] Comment on above: Performed By: #### L 100.0500, L500.2500 ####[facility] [address] [place], [address] Creatinine [Mass/Vol] 2.10 mg/dL High 0.70-1.30 [facility] Comment on above: Result Comment: The validity of the calculated GFR GFRAA in patients over70 years has not been determined. Clinical correlation isessential. Performed By: #### L 100.0500, L500.2500 ####[facility] [address] [place], [address] ECRCL 29.00 ml/min Normal [facility] Comment on above: Performed By: #### L 100.0500, L500.2500 ####[facility] [address] [place], [address] EST GFR - AA 39 mL/min Low >60 [facility] Comment on above: Result Comment: Afri can Japanese GFR Calc Performed By: #### L 100.0500, L500.2500 ####[facility] [address] [place], [address] GAP 5 Normal 5-15 [facility] Comment on above: Performed By: #### L 100.0500, L500.2500 ####[facility] [address] [place], [address] GFR/1.73 sq M.predicted among non-blacks MDRD (S/P/Bld) [Vol rate/Area] 32 mL/min/{1.73_m2} Low >60 [facility] Comment on above: Result Comment: Non- GFR Calc Performed By: #### L 100.0500, L500.2500 ####[facility] [address] [place], [address] Glucose [Mass/Vol] 179 mg/dL High 74-106 [facility] Comment on above: Result Comment: Fast ing Glucose result greater than or equal to 126 mg/dLsuggests DIABETES MELLITUS per A.D.A. criteria. Performed By: #### L 100.0500, L500.2500 ####[facility] [address] [place], [address] Potassium [Moles/Vol] 4.6 mmol/L Normal 3.5-5.1 [facility] Comment on above: Performed By: #### L 100.0500, L500.2500 ####[facility] [address] [place], [address] Sodium [Moles/Vol] 137 mmol/L Normal 136-145 [facility] Comment on above: Performed By: #### L 100.0500, L500.2500 ####[facility] [address] [place], [address] Urea nitrogen [Mass/Vol] 23 mg/dL High 7-18 [facility] Comment on above: Performed By: #### L 100.0500, L500.2500 ####[facility] [address] [place], [address] CBC-Complete Blood Cnt No Di ffon 07-30-2024 Erythrocyte distribution width (RBC) [Ratio] 13.8 % Normal 11.6-14.6 [facility] Comment on above: Performed By: #### L 100.0500, L500.2500 ####[facility] [address] [place], [address] Hematocrit (Bld) [Volume fraction] 33.2 % Low 40-54 [facility] Comment on above: Performed By: #### L 100.0500, L500.2500 ####[facility] [address] [place], [address] Hemoglobin (Bld) [Mass/Vol] 10.9 g/dL Low 13.0-16.5 [facility] Comment on above: Performed By: #### L 100.0500, L500.2500 ####[facility] [address] [place], [address] MCH (RBC) [Entitic mass] 32.4 pg High 27.0-32.0 [facility] Comment on above: Performed By: #### L 100.0500, L500.2500 ####[facility] [address] [place], [address] MCHC (RBC) [Mass/Vol] 32.8 g/dL Normal 32-36 [facility] Comment on above: Performed By: #### L 100.0500, L500.2500 ####[facility] [address] [place], [address] MCV (RBC) [Entitic vol] 98.8 fL High 80-94 [facility] Comment on above: Performed By: #### L 100.0500, L500.2500 ####[facility] [address] [place], [address] Platelet mean volume (Bld) [Entitic vol] 10.9 fL Normal 6.2-12.0 [facility] Comment on above: Performed By: #### L 100.0500, L500.2500 ####[facility] [address] [place], [address] Platelets (Bld) [#/Vol] 191 10*3/uL Normal 150-450 [facility] Comment on above: Performed By: #### L 100.0500, L500.2500 ####[facility] [address] [place], [address] RBC (Bld) [#/Vol] 3.36 10*6/uL Low 4.6-6.2 [facility] Comment on above: Performed By: #### L 100.0500, L500.2500 ####[facility] [address] [place], [address] RDW SD 50.0 fl High 35.1-43.9 [facility] Comment on above: Performed By: #### L 100.0500, L500.2500 ####[facility] [address] [place], [address] WBC (Bld) [#/Vol] 13.1 10*3/uL High 4.4-11.0 [facility] Comment on above: Performed By: #### L 100.0500, L500.2500 ####[facility] [address] [place], [address] Bedside Glucoseon 07-29-2024 FINGERSTICK GLU 145 mg/dL High 74-106 [facility] Comment on above: Result Comment: COLLEEN ORNELAS OF PATIENT CARE PER NURSING PROTOCOL Performed By: #### L 501.080 ####[facility] [address] [place], [address] Consultation - Hospitaliston 07-29-2024 Consultation - Hospitalist Normal [facility] Decalcification bone/plaqueo n 07-29-2024 Decalcification bone/plaque Normal [facility] Comment on above: Performed By: #### P DEC ####[facility] [address] [place], [address] Knee 1 or 2 Viewson 07-29-20 24 Knee 1 or 2 Views Normal [facility] MR/POSTOP.ANEon 07-29-2024 MR/POSTOP.ANE Normal [facility] MR/RXLFXIOG0wd 07-29-2024 MR/POSTOPAN2 Normal [facility] Operative Reporton Operative Report Normal [facility] Venous Duplex US, Unilateral on 07-19-2024 Venous Duplex US, Unilateral Normal [facility] MRSA/SAID NASAL SCREENon MRSA+SAID SCRN Reason for Exam: PRE OP MRSA MRSA Negative S. AUREUS S. aureus Negative Normal [facility] Comment on above: Performed By: #### M 100.651 ####[facility] [address] [place], [address] Extremity Lower without Cont raon 07-12-2024 Extremity Lower without Contra Normal [facility] Magnesiumon 07-12-2024 Magnesium [Mass/Vol] 1.9 mg/dL Normal 1.6-2.[address] [facility] Comment on above: Performed By: #### L 501.5200 ####[facility] [address] [place], [address] Cardiology Visit Reporton Cardiology Visit Report Normal [facility] CBC W/Diff, Automatedon Absolute Lymph 2.39 X10 3/uL Normal 0.83-4.51 [facility] Comment on above: Order Comment: Order Date: 06/21/24Order Info: [id number] - CBCD Performed By: #### L 503.0105, L500.4100, L100.0100, L509.1000, L501.9520, L506.0400, L501.9985, L506.1000, L502.0250, L500.4050 ####[facility] [address] [place], [address] Absolute Neut 4.9 X10 3/uL Normal 2.0-7.7 [facility] Comment on above: Order Comment: Order Date: 06/21/24Order Info: 0184-1 - CBCD Performed By: #### L 503.0105, L500.4100, L100.0100, L509.1000, L501.9520, L506.0400, L501.9985, L506.1000, L502.0250, L500.4050 ####[facility] [address] [place], [address] Basophils/100 WBC (Bld) 1.0 % Normal 0-1 [facility] Comment on above: Order Comment: Order Date: 06/21/24Order Info: 0184-1 - CBCD Performed By: #### L 503.0105, L500.4100, L100.0100, L509.1000, L501.9520, L506.0400, L501.9985, L506.1000, L502.0250, L500.4050 ####[facility] [address] [place], [address] Eosinophils/100 WBC (Bld) 1.9 % Normal 0-5 [facility] Comment on above: Order Comment: Order Date: 06/21/24Order Info: 0184-1 - CBCD Performed By: #### L 503.0105, L500.4100, L100.0100, L509.1000, L501.9520, L506.0400, L501.9985, L506.1000, L502.0250, L500.4050 ####[facility] [address] [place], [place], [phone] Erythrocyte distribution width (RBC) [Ratio] 13.1 % Normal 11.6-14.6 [facility] Comment on above: Order Comment: Order Date: 06/21/24Order Info: 0184- - CBCD Performed By: #### L 503.0105, L500.4100, L100.0100, L509.1000, L501.9520, L506.0400, L501.9985, L506.1000, L502.0250, L500.4050 ####[facility] [address] [place], [address] Hematocrit (Bld) [Volume fraction] 44.4 % Normal 40-54 [facility] Comment on above: Order Comment: Order Date: 06/21/24Order Info: 0184-1 - CBCD Performed By: #### L 503.0105, L500.4100, L100.0100, L509.1000, L501.9520, L506.0400, L501.9985, L506.1000, L502.0250, L500.4050 ####[facility] [address] [place], [place], [phone](344) Hemoglobin (Bld) [Mass/Vol] 13.8 g/dL Normal 13.0-16.5 [facility] Comment on above: Order Comment: Order Date: 06/21/24Order Info: 0184-1 - CBCD Performed By: #### L 503.0105, L500.4100, L100.0100, L509.1000, L501.9520, L506.0400, L501.9985, L506.1000, L502.0250, L500.4050 ####[facility] [address] [place], [address] IG% 0.400 Normal 0.0-0.9 [facility] Comment on above: Order Comment: Order Date: 06/21/24Order Info: 018- - CBCD Result Comment: IG% - Immature Granulocytes (promyelocytes, myelocytes andmetamyelocytes) > 1% indicates that a LEFT SHIFT is Present. Performed By: #### L 503.0105, L500.4100, L100.0100, L509.1000, L501.9520, L506.0400, L501.9985, L506.1000, L502.0250, L500.4050 ####[facility] [address] [place], [address] Lymphocytes/100 WBC (Bld) 28.5 % Normal 19-41 [facility] Comment on above: Order Comment: Order Date: 06/21/24Order Info: 0184-1 - CBCD Performed By: #### L 503.0105, L500.4100, L100.0100, L509.1000, L501.9520, L506.0400, L501.9985, L506.1000, L502.0250, L500.4050 ####[facility] [address] [place], [address] MCH (RBC) [Entitic mass] 31.5 pg Normal 27.0-32.0 [facility] Comment on above: Order Comment: Order Date: 06/21/24Order Info: 0184-1 - CBCD Performed By: #### L 503.0105, L500.4100, L100.0100, L509.1000, L501.9520, L506.0400, L501.9985, L506.1000, L502.0250, L500.4050 ####[facility] [address] [place], [place], [phone] MCHC (RBC) [Mass/Vol] 31.1 g/dL Low 32-36 [facility] Comment on above: Order Comment: Order Date: 06/21/24Order Info: 0184-1 - CBCD Performed By: #### L 503.0105, L500.4100, L100.0100, L509.1000, L501.9520, L506.0400, L501.9985, L506.1000, L502.0250, L500.4050 ####[facility] [address] [place], [place], [phone] MCV (RBC) [Entitic vol] 101.4 fL High 80-94 [facility] Comment on above: Order Comment: Order Date: 06/21/24Order Info: 0184-1 - CBCD Performed By: #### L 503.0105, L500.4100, L100.0100, L509.1000, L501.9520, L506.0400, L501.9985, L506.1000, L502.0250, L500.4050 ####[facility] [address] [place], [place], [phone]) Monocytes/100 WBC (Bld) 10.2 % High 0-10 [facility] Comment on above: Order Comment: Order Date: 06/21/24Order Info: 0184-1 - CBCD Performed By: #### L 503.0105, L500.4100, L100.0100, L509.1000, L501.9520, L506.0400, L501.9985, L506.1000, L502.0250, L500.4050 ####[facility] [address] [place], [address] Neutrophils/100 WBC (Bld) 58.0 % Normal 47-70 [facility] Comment on above: Order Comment: Order Date: 06/21/24Order Info: 0184-1 - CBCD Performed By: #### L 503.0105, L500.4100, L100.0100, L509.1000, L501.9520, L506.0400, L501.9985, L506.1000, L502.0250, L500.4050 ####[facility] [address] [place], [address] Nucleated RBC (Bld) [#/Vol] 0 10*3/uL Normal 0-5 [facility] Comment on above: Order Comment: Order Date: 06/21/24Order Info: 0184-1 - CBCD Performed By: #### L 503.0105, L500.4100, L100.0100, L509.1000, L501.9520, L506.0400, L501.9985, L506.1000, L502.0250, L500.4050 ####[facility] [address] [place], [address] Platelet mean volume (Bld) [Entitic vol] 11.7 fL Normal 6.2-12.0 [facility] Comment on above: Order Comment: Order Date: 06/21/24Order Info: 0184-1 - CBCD Performed By: #### L 503.0105, L500.4100, L100.0100, L509.1000, L501.9520, L506.0400, L501.9985, L506.1000, L502.0250, L500.4050 ####[facility] [address] [place], [address] Platelets (Bld) [#/Vol] 239 10*3/uL Normal 150-450 [facility] Comment on above: Order Comment: Order Date: 06/21/24Order Info: 0184-1 - CBCD Performed By: #### L 503.0105, L500.4100, L100.0100, L509.1000, L501.9520, L506.0400, L501.9985, L506.1000, L502.0250, L500.4050 ####[facility] [address] [place], [address] RBC (Bld) [#/Vol] 4.38 10*6/uL Low 4.6-6.2 [facility] Comment on above: Order Comment: Order Date: 06/21/24Order Info: 0184-1 - CBCD Performed By: #### L 503.0105, L500.4100, L100.0100, L509.1000, L501.9520, L506.0400, L501.9985, L506.1000, L502.0250, L500.4050 ####[facility] [address] [place], [address] RDW SD 49.1 fl High 35.1-43.9 [facility] Comment on above: Order Comment: Order Date: 06/21/24Order Info: 0184-1 - CBCD Performed By: #### L 503.0105, L500.4100, L100.0100, L509.1000, L501.9520, L506.0400, L501.9985, L506.1000, L502.0250, L500.4050 ####[facility] [address] [place], [address] WBC (Bld) [#/Vol] 8.4 10*3/uL Normal 4.4-11.0 [facility] Comment on above: Order Comment: Order Date: 06/21/24Order Info: 0184-1 - CBCD Performed By: #### L 503.0105, L500.4100, L100.0100, L509.1000, L501.9520, L506.0400, L501.9985, L506.1000, L502.0250, L500.4050 ####[facility] [address] [place], [place], [address] Comprehensive Metabolic Prof ilon 06-21-2024 Albumin [Mass/Vol] 3.8 g/dL Normal 3.2-5.0 [facility] Comment on above: Order Comment: Order Date: 06/21/24Order Info: 86-1 - CMPOrder Info: [id number] - LIPIDOrder Info: [id number] - TSHOrder Info: 7 - T4F Performed By: #### L 503.0105, L500.4100, L100.0100, L509.1000, L501.9520, L506.0400, L501.9985, L506.1000, L502.0250, L500.4050 ####[facility] [address] [place], [place], [phone] Albumin/Globulin [Mass ratio] 1.1 {ratio} Normal 0.9-2.4 [facility] Comment on above: Order Comment: Order Date: 06/21/24Order Info: 785- - CMPOrder Info: - LIPIDOrder Info: [id number] - TSHOrder Info: 7 - T4F Performed By: #### L 503.0105, L500.4100, L100.0100, L509.1000, L501.9520, L506.0400, L501.9985, L506.1000, L502.0250, L500.4050 ####[facility] [address] [place], [place], [address] ALK P 66 U/L Normal 45-117 [facility] Comment on above: Order Comment: Order Date: 06/21/24Order Info: 86-1 - CMPOrder Info: - LIPIDOrder Info: [id number] - TSHOrder Info: 7 - T4F Performed By: #### L 503.0105, L500.4100, L100.0100, L509.1000, L501.9520, L506.0400, L501.9985, L506.1000, L502.0250, L500.4050 ####[facility] [address] [place], [place], [phone] ALT [Catalytic activity/Vol] 23 U/L Normal 16-61 [facility] Comment on above: Order Comment: Order Date: 06/21/24Order Info: 86-1 - CMPOrder Info: [id number] - LIPIDOrder Info: [id number] - TSHOrder Info: 7 - T4F Performed By: #### L 503.0105, L500.4100, L100.0100, L509.1000, L501.9520, L506.0400, L501.9985, L506.1000, L502.0250, L500.4050 ####[facility] [address] [place], [place], [phone] AST [Catalytic activity/Vol] 18 U/L Normal 15-37 [facility] Comment on above: Order Comment: Order Date: 06/21/24Order Info: 785- - CMPOrder Info: [id number] - LIPIDOrder Info: [id number] - TSHOrder Info: 7 - T4F Performed By: #### L 503.0105, L500.4100, L100.0100, L509.1000, L501.9520, L506.0400, L501.9985, L506.1000, L502.0250, L500.4050 ####[facility] [address] [place], [place], [phone] Bilirubin [Mass/Vol] 0.80 mg/dL Normal 0.20-1.[address] [facility] Comment on above: Order Comment: Order Date: 06/21/24Order Info: 86-1 - CMPOrder Info: [id number] - LIPIDOrder Info: [id number] - TSHOrder Info: [id number] - T4F Result Comment: For patients on eltrombopag therapy, use of Dimension Strum TBIL is not recommended. Performed By: #### L 503.0105, L500.4100, L100.0100, L509.1000, L501.9520, L506.0400, L501.9985, L506.1000, L502.0250, L500.4050 ####[facility] [address] [place], [place], [phone] BUN/CRE 10.2 RATIO Normal 10-20 [facility] Comment on above: Order Comment: Order Date: 06/21/24Order Info: [id number] - CMPOrder Info: [id number] - LIPIDOrder Info: 3 - TSHOrder Info: [id number] - T4F Performed By: #### L 503.0105, L500.4100, L100.0100, L509.1000, L501.9520, L506.0400, L501.9985, L506.1000, L502.0250, L500.4050 ####[facility] [address] [place], [place], [phone] CA,Total 9.5 mg/dL Normal 8.5-10.1 [facility] Comment on above: Order Comment: Order Date: 06/21/24Order Info: 86-1 - CMPOrder Info: [id number] - LIPIDOrder Info: [id number] - TSHOrder Info: [id number] - T4F Performed By: #### L 503.0105, L500.4100, L100.0100, L509.1000, L501.9520, L506.0400, L501.9985, L506.1000, L502.0250, L500.4050 ####[facility] [address] [place], [place], [phone]([phone]) Chloride [Moles/Vol] 106 mmol/L Normal 98-[address] [facility] Comment on above: Order Comment: Order Date: 06/21/24Order Info: [id number] - CMPOrder Info: [id number] - LIPIDOrder Info: [id number] - TSHOrder Info: 3024-7 - T4F Performed By: #### L 503.0105, L500.4100, L100.0100, L509.1000, L501.9520, L506.0400, L501.9985, L506.1000, L502.0250, L500.4050 ####[facility] [address] [place], [place], [phone] CO2 [Moles/Vol] 27.0 mmol/L Normal 21.0-32.0 [facility] Comment on above: Order Comment: Order Date: 06/21/24Order Info: 86-1 - CMPOrder Info: [id number] - LIPIDOrder Info: [id number] - TSHOrder Info: 7 - T4F Performed By: #### L 503.0105, L500.4100, L100.0100, L509.1000, L501.9520, L506.0400, L501.9985, L506.1000, L502.0250, L500.4050 ####[facility] [address] [place], [place], [phone](722) Creatinine [Mass/Vol] 2.25 mg/dL High 0.70-1.30 [facility] Comment on above: Order Comment: Order Date: 06/21/24Order Info: [id number]- - CMPOrder Info: - LIPIDOrder Info: [id number] - TSHOrder Info: [id number] - T4F Result Comment: The validity of the calculated GFR GFRAA in patients over70 years has not been determined. Clinical correlation isessential. Performed By: #### L 503.0105, L500.4100, L100.0100, L509.1000, L501.9520, L506.0400, L501.9985, L506.1000, L502.0250, L500.4050 ####[facility] [address] [place], [place], [phone](427) EST GFR - AA 36 mL/min Low >60 [facility] Comment on above: Order Comment: Order Date: 06/21/24Order Info: 86-1 - CMPOrder Info: [id number] - LIPIDOrder Info: [id number] - TSHOrder Info: [id number] - T4F Result Comment: Afri can Japanese GFR Calc Performed By: #### L 503.0105, L500.4100, L100.0100, L509.1000, L501.9520, L506.0400, L501.9985, L506.1000, L502.0250, L500.4050 ####[facility] [address] [place], [place], [phone](999) GAP 5 Normal 5-15 [facility] Comment on above: Order Comment: Order Date: 06/21/24Order Info: 07-1 - CMPOrder Info: - LIPIDOrder Info: [id number] - TSHOrder Info: [id number] - T4F Performed By: #### L 503.0105, L500.4100, L100.0100, L509.1000, L501.9520, L506.0400, L501.9985, L506.1000, L502.0250, L500.4050 ####[facility] [address] [place], [place], [address](063) GFR/1.73 sq M.predicted among non-blacks MDRD (S/P/Bld) [Vol rate/Area] 30 mL/min/{1.73_m2} Low >60 [facility] Comment on above: Order Comment: Order Date: 06/21/24Order Info: 07- - CMPOrder Info: [id number] - LIPIDOrder Info: [id number] - TSHOrder Info: [id number] - T4F Result Comment: Non- GFR Calc Performed By: #### L 503.0105, L500.4100, L100.0100, L509.1000, L501.9520, L506.0400, L501.9985, L506.1000, L502.0250, L500.4050 ####[facility] [address] [place], [place], [phone](603) Globulin (S) [Mass/Vol] 3.6 g/dL Normal 2.2-4.2 [facility] Comment on above: Order Comment: Order Date: 06/21/24Order Info: [id number]- - CMPOrder Info: [id number] - LIPIDOrder Info: [id number] - TSHOrder Info: 7 - T4F Performed By: #### L 503.0105, L500.4100, L100.0100, L509.1000, L501.9520, L506.0400, L501.9985, L506.1000, L502.0250, L500.4050 ####[facility] [address] [place], [address] Glucose [Mass/Vol] 109 mg/dL High 74-106 [facility] Comment on above: Order Comment: Order Date: 06/21/24Order Info: [id number] - CMPOrder Info: - LIPIDOrder Info: [id number] - TSHOrder Info: 7 - T4F Result Comment: Fast ing Glucose result from 100 to 125 mg/dLsuggests IMPAIRED HOMEOSTASIS per A.D.A. criteria. Performed By: #### L 503.0105, L500.4100, L100.0100, L509.1000, L501.9520, L506.0400, L501.9985, L506.1000, L502.0250, L500.4050 ####[facility] [address] [place], [address] Potassium [Moles/Vol] 4.6 mmol/L Normal 3.5-5.1 [facility] Comment on above: Order Comment: Order Date: 06/21/24Order Info: [id number]- - CMPOrder Info: - LIPIDOrder Info: [id number] - TSHOrder Info: 7 - T4F Performed By: #### L 503.0105, L500.4100, L100.0100, L509.1000, L501.9520, L506.0400, L501.9985, L506.1000, L502.0250, L500.4050 ####[facility] [address] [place], [place], [address] Sodium [Moles/Vol] 138 mmol/L Normal 136-145 [facility] Comment on above: Order Comment: Order Date: 06/21/24Order Info: 86-1 - CMPOrder Info: [id number] - LIPIDOrder Info: 6-3 - TSHOrder Info: [id number] - T4F Performed By: #### L 503.0105, L500.4100, L100.0100, L509.1000, L501.9520, L506.0400, L501.9985, L506.1000, L502.0250, L500.4050 ####[facility] [address] [place], [place], [phone] T PROT 7.4 g/dL Normal 6.4-8.2 [facility] Comment on above: Order Comment: Order Date: 06/21/24Order Info: [id number] - CMPOrder Info: [id number] - LIPIDOrder Info: 3 - TSHOrder Info: [id number] - T4F Performed By: #### L 503.0105, L500.4100, L100.0100, L509.1000, L501.9520, L506.0400, L501.9985, L506.1000, L502.0250, L500.4050 ####[facility] [address] [place], [address] Urea nitrogen [Mass/Vol] 23 mg/dL High 7-18 [facility] Comment on above: Order Comment: Order Date: 06/21/24Order Info: 86-1 - CMPOrder Info: [id number] - LIPIDOrder Info: 6-3 - TSHOrder Info: [id number] - T4F Performed By: #### L 503.0105, L500.4100, L100.0100, L509.1000, L501.9520, L506.0400, L501.9985, L506.1000, L502.0250, L500.4050 ####[facility] [address] [place], [place], [address] Hemoglobin A1con 06-21-2024 HbA1c (Bld) [Mass fraction] 6.0 % High 3.8-5.6 [facility] Comment on above: Order Comment: Order Date: 06/21/24Order Info: [id number] - A1C Result Comment: Norm al < 5.7 % Prediabetic 5.7 - 6.4 % Diabetic >or= 6.5 % Please note range changes. Performed By: #### L 503.0105, L500.4100, L100.0100, L509.1000, L501.9520, L506.0400, L501.9985, L506.1000, L502.0250, L500.4050 ####[facility] [address] [place], [place], [phone] Lipid Profileon 06-21-2024 Cholesterol [Mass/Vol] 143 mg/dL Normal 200 [facility] Comment on above: Order Comment: Order Date: 06/21/24Order Info: [id number] - CMPOrder Info: [id number] - LIPIDOrder Info: [id number] - TSHOrder Info: [id number] - T4F Result Comment: <200 mg/dL Desirable 200-240 mg/dL Borderline >240 mg/dL High Risk Performed By: #### L 503.0105, L500.4100, L100.0100, L509.1000, L501.9520, L506.0400, L501.9985, L506.1000, L502.0250, L500.4050 ####[facility] [address] [place], [place], [phone] Cholesterol in HDL [Mass/Vol] 37 mg/dL Low [facility] Comment on above: Order Comment: Order Date: 06/21/24Order Info: [id number] - CMPOrder Info: [id number] - LIPIDOrder Info: [id number] - TSHOrder Info: [id number] - T4F Result Comment: The drugs N-Acetylcysteine and Metamizole may falselydepress this assay. Reference Range HDL <40 mg/dL Low HDL Cholesterol HDL >or= 60 mg/dL High HDL Cholesterol Performed By: #### L 503.0105, L500.4100, L100.0100, L509.1000, L501.9520, L506.0400, L501.9985, L506.1000, L502.0250, L500.4050 ####[facility] [address] [place], [address] Cholesterol in LDL [Mass/Vol] 74 mg/dL Normal 0-130 [facility] Comment on above: Order Comment: Order Date: 06/21/24Order Info: 86-1 - CMPOrder Info: [id number] - LIPIDOrder Info: 3 - TSHOrder Info: 7 - T4F Performed By: #### L 503.0105, L500.4100, L100.0100, L509.1000, L501.9520, L506.0400, L501.9985, L506.1000, L502.0250, L500.4050 ####[facility] [address] [place], [address] Cholesterol in VLDL [Mass/Vol] 32 mg/dL Normal 5-40 [facility] Comment on above: Order Comment: Order Date: 06/21/24Order Info: 86-1 - CMPOrder Info: [id number] - LIPIDOrder Info: 3 - TSHOrder Info: [id number] - T4F Performed By: #### L 503.0105, L500.4100, L100.0100, L509.1000, L501.9520, L506.0400, L501.9985, L506.1000, L502.0250, L500.4050 ####[facility] [address] [place], [address] Triglyceride [Mass/Vol] 161 mg/dL Normal [facility] Comment on above: Order Comment: Order Date: 06/21/24Order Info: [id number] - CMPOrder Info: [id number] - LIPIDOrder Info: 3 - TSHOrder Info: 4-7 - T4F Result Comment: The drugs N-Acetylcysteine and Metamizole may falselydepress this assay.Serum Triglycerides Reference Interval Normal <150 mg/dL Borderline high 150 - 199 mg/dL High 200 - 499 mg/dL Very High > or = 500 mg/dL Performed By: #### L 503.0105, L500.4100, L100.0100, L509.1000, L501.9520, L506.0400, L501.9985, L506.1000, L502.0250, L500.4050 ####[facility] [address] [place], [address] Microalb:Creat Ratio,Random URon 06-21-2024 Creatinine [Mass/Vol] 49.40 mg/dL Normal NO RAN GE EST. [facility] Comment on above: Order Comment: Order Date: 06/21/24Order Info: [id number] - MIACRE Performed By: #### L 503.0105, L500.4100, L100.0100, L509.1000, L501.9520, L506.0400, L501.9985, L506.1000, L502.0250, L500.4050 ####[facility] [address] [place], [place], [phone] MALB:CRE 44.3 mg/g CRE High <30 mg/g CRE [facility] Comment on above: Order Comment: Order Date: 06/21/24Order Info: [id number] - MIACRE Performed By: #### L 503.0105, L500.4100, L100.0100, L509.1000, L501.9520, L506.0400, L501.9985, L506.1000, L502.0250, L500.4050 ####[facility] [address] [place], [address] MICROALBUMIN,UR 21.9 mg/L Normal NO RANGE EST. [facility] Comment on above: Order Comment: Order Date: 06/21/24Order Info: [id number] - MIACRE Performed By: #### L 503.0105, L500.4100, L100.0100, L509.1000, L501.9520, L506.0400, L501.9985, L506.1000, L502.0250, L500.4050 ####[facility] [address] [place], [address] PTHINon 06-21-2024 PTH 47.7 pg/mL Normal 18.4-80.1 [facility] Comment on above: Order Comment: Order Date: 06/21/24Order Info: [id number] - PTHIN Performed By: #### L 503.0105, L500.4100, L100.0100, L509.1000, L501.9520, L506.0400, L501.9985, L506.1000, L502.0250, L500.4050 ####[facility] [address] [place], [address] Phosphoruson 06-21-2024 Phosphate [Mass/Vol] 2.6 mg/dL Normal 2.5-4.[address] [facility] Comment on above: Order Comment: Order Date: 06/21/24Order Info: [id number] - CMPOrder Info: [id number] - LIPIDOrder Info: [id number] - TSHOrder Info: [id number] - T4F Performed By: #### L 501.2300 ####[facility] [address] [place], [address] T4 Free Directon 06-21-2024 T4 FREE DIRECT 1.09 ng/dL Normal 0.76-1.46 [facility] Comment on above: Order Comment: Order Date: 06/21/24Order Info: [id number] - CMPOrder Info: [id number] - LIPIDOrder Info: [id number] - TSHOrder Info: [id number] - T4F Performed By: #### L 503.0105, L500.4100, L100.0100, L509.1000, L501.9520, L506.0400, L501.9985, L506.1000, L502.0250, L500.4050 ####[facility] [address] [place], [place], [phone] Thyroid Stim Hormone (TSH)on 06-21-2024 TSH 1.530 uIU/mL Normal 0.358-3.740 [facility] Comment on above: Order Comment: Order Date: 06/21/24Order Info: [id number] - CMPOrder Info: [id number] - LIPIDOrder Info: [id number] - TSHOrder Info: [id number] - T4F Performed By: #### L 503.0105, L500.4100, L100.0100, L509.1000, L501.9520, L506.0400, L501.9985, L506.1000, L502.0250, L500.4050 ####[facility] [address] [place], [place], [phone](457) Vitamin B12on 06-21-2024 Cobalamin (Vitamin B12) [Mass/Vol] 789 pg/mL Normal 211-911 [facility] Comment on above: Order Comment: Order Date: 06/21/24Order Info: 2-9 - [id number] Info: [id number] - VITD25 Performed By: #### L 503.0105, L500.4100, L100.0100, L509.1000, L501.9520, L506.0400, L501.9985, L506.1000, L502.0250, L500.4050 ####[facility] [address] [place], [place], [id number] Vitamin D,25 Hydroxyon 06-21 Vitamin D 25-OH 72.3 ng/mL Normal [facility] Comment on above: Order Comment: Order Date: 06/21/24Order Info: [id number] - [id number] Info: [id number] - VITD25 Result Comment: Ashley min D 25(OH) Status Range Deficiency <20 ng/mL (50nmol/L) Insufficiency 20 - 30 ng/mL (50 - 75 nmol/L) Sufficiency 30 - 100 ng/mL (75 - 250 nmol/L) Toxicity >100 ng/mL (>250 nmol/L) Performed By: #### L 503.0105, L500.4100, L100.0100, L509.1000, L501.9520, L506.0400, L501.9985, L506.1000, L502.0250, L500.4050 ####[facility] [address] [place], [address] Thin prep Papanicolaou smear with manual screeningOrdered By: Aneesh Prado on 01-03-2024 Thin prep Papanicolaou smear with manual screening 87 mg/dL 74-106 [facility] Comment on above: MANAGEMENT OF PATIEN T CARE PER NURSING PROTOCOL Absolute lymphocyte countOrd ered By: Malick Al on 11-17-2023 Lymphocytes Auto (Unsp spec) [#/Vol] 1.78 10*3/uL 0.83-4.51 [facility] Automated lymphocyte count a s percentage of total leukocytesOrdered By: Malick Al on 11-17-2023 Lymphocytes/100 WBC Auto (Unsp spec) 25.3 % 19-41 [facility] Basophil percentageOrdered B y: Malick Al on 11-17-2023 Basophil percentage 2.5 mg/dL 2.5-4.9 [facility] Basophils/100 WBC (Bld) 0.9 % 0-1 [facility] Bilirubin [Mass/Vol] 0.70 mg/dL 0.20-1.[address] [facility] Comment on above: For patients on eltr ombopag therapy, use of Dimension Strum TBIL is not recommended. Chloride [Moles/Vol] 109 mmol/L 98-[address] [facility] Cholesterol [Mass/Vol] 141 mg/dL <200 [facility] Comment on above: <200 mg/dL Desirable 200-240 mg/dL Borderline >240 mg/dL High Risk Eosinophils/100 WBC (Bld) 1.6 % 0-5 [facility] Glucose [Mass/Vol] 107 mg/dL 74-106 [facility] Comment on above: Fasting Glucose resu lt from 100 to 125 mg/dL suggests IMPAIRED HOMEOSTASIS per A.D.A. criteria. Hemoglobin (Bld) [Mass/Vol] 13.2 g/dL 13.0-16.5 [facility] Monocytes/100 WBC (Bld) 11.2 % 0-10 [facility] Neutrophils (Bld) [#/Vol] 4.3 10*3/uL 2.0-7.7 [facility] Neutrophils/100 WBC (Bld) 60.7 % 47-70 [facility] Potassium [Moles/Vol] 4.6 mmol/L 3.5-5.1 [facility] Protein [Mass/Vol] 6.4 g/dL 6.4-8.2 [facility] Sodium [Moles/Vol] 138 mmol/L 136-145 [facility] Triglyceride [Mass/Vol] 121 mg/dL <199 [facility] Comment on above: The drugs N-Acetylcy steine and Metamizole may falsely depress this assay.Serum Triglycerides Reference Interval Normal <150 mg/dL Borderline high 150 - 199 mg/dL High 200 - 499 mg/dL Very High > or = 500 mg/dL WBC (Bld) [#/Vol] 7.0 10*3/uL 4.4-11.0 [facility] Bilirubin Test strip Ql (U)O rdered By: Malick Al on 11-17-2023 Bilirubin Ql (U) Negative Negative [facility] Determination of erythrocyte mean corpuscular volume (MCV)Ordered By: Malick Al on 11-17-2023 MCV (RBC) [Entitic vol] 102.2 fL 80-94 [facility] Erythrocyte distribution wid th ratioOrdered By: Malick Al on 11-17-2023 Erythrocyte distribution width (RBC) [Ratio] 14.0 % 11.6-14.6 [facility] Erythrocyte distribution wid th standard deviationOrdered By: Malick Al on 11-17-2023 Erythrocyte distribution width (RBC) [Entitic vol] 52.6 fL 35.1-43.9 [facility] Hematocrit Auto (Bld) [Volum e fraction]Ordered By: Malick Al on 11-17-2023 Hematocrit (Bld) [Volume fraction] 42.0 % 40-54 [facility] Immature granulocytes/100 WB C Auto (Bld)Ordered By: Malick Al on 11-17-2023 Immature granulocytes/100 WBC (Bld) 0.300 % 0.0-0.9 [facility] Comment on above: IG% - Immature Granu locytes (promyelocytes, myelocytes and metamyelocytes) > 1% indicates that a LEFT SHIFT is Present. Ketones Test strip Ql (U)Ord ered By: Malick Al on 11-17-2023 Ketones Ql (U) Negative Negative [facility] Laboratory - Chemistry and C hemistry - challengeOrdered By: Malick Al on 11-17-2023 Albumin/Creatinine DL <= 1.0 mg/L (24H U) [Ratio] 36.7 mg/g CRE <30 [facility] Albumin/Globulin [Mass ratio] 1.2 {ratio} 0.9-2.4 [facility] ALP [Catalytic activity/Vol] 81 U/L 45-117 [facility] ALT [Catalytic activity/Vol] 28 U/L 16-61 [facility] Cholesterol in HDL (Body fld) [Mass/Vol] 43 mg/dL >40 [facility] Comment on above: The drugs N-Acetylcy steine and Metamizole may falsely depress this assay. Reference Range HDL <40 mg/dL Low HDL Cholesterol HDL >or= 60 mg/dL High HDL Cholesterol Cholesterol in LDL (Body fld) [Moles/Vol] 74 mg/dL 0-130 [facility] Cholesterol in VLDL Calc [Moles/Vol] 24 mg/dL 5-40 [facility] CO2 [Moles/Vol] 29.0 mmol/L 21.0-32.0 [facility] Globulin (S) [Mass/Vol] 2.9 g/dL 2.2-4.2 [facility] Parathyrin.intact (Tissue fine needle aspirate) [Mass/Vol] 49.9 pg/mL 18.4-80.1 [facility] Urea nitrogen/Creatinine [Mass ratio] 12.2 mg/mg 10-20 [facility] Laboratory - Hematology and Cell countsOrdered By: Malick Al on 11-17-2023 MCH (RBC) [Entitic mass] 32.1 pg 27.0-32.0 [facility] MCHC (RBC) [Mass/Vol] 31.4 g/dL 32-36 [facility] Nucleated RBC/100 WBC (Bld) [Ratio] 0 % 0-5 [facility] Platelets (Bld) [#/Vol] 232 10*3/uL 150-450 [facility] Nitrite Test strip Ql (U)Ord ered By: Malick Al on 11-17-2023 Nitrite Ql (U) Negative Negative [facility] No Panel InformationOrdered By: Malick Al on 11-17-2023 Estimated GFR (MDRD) Amer 44 mL/min >60 [facility] Comment on above: GFR Calc Estimated GFR (MDRD) Non-Af Amer 37 mL/min >60 [facility] Comment on above: Non- GFR Calc Vitamin D 25-Hydroxy 63.5 ng/mL [facility] Comment on above: Vitamin D 25(OH) Sta tus Range Deficiency <20 ng/mL (50nmol/L) Insufficiency 20 - 30 ng/mL (50 - 75 nmol/L) Sufficiency 30 - 100 ng/mL (75 - 250 nmol/L) Toxicity >100 ng/mL (>250 nmol/L) Platelet mean volume Diogenes-Ec ker (Bld) [Entitic vol]Ordered By: Malick Al on 11-17-2023 Platelet mean volume (Bld) [Entitic vol] 10.9 fL 6.2-12.0 [facility] Protein Test strip Ql (U)Ord ered By: Malick Al on 11-17-2023 Protein Ql (U) Negative Negative [facility] RBC Auto (Bld) [#/Vol]Ordere d By: Malick Al on 11-17-2023 RBC (Bld) [#/Vol] 4.11 10*6/uL 4.6-6.2 [facility] Serum or plasma calcium gume urement (mass/volume)Ordered By: Malick Al on 11-17-2023 Calcium [Mass/Vol] 8.7 mg/dL 8.5-10.1 [facility] Serum or plasma creatinine m easurement (mass/volume)Ordered By: Malick Al on 11-17-2023 Creatinine [Mass/Vol] 1.88 mg/dL 0.70-1.30 [facility] Comment on above: The validity of the calculated GFR & GFRAA in patients over 70 years has not been determined. Clinical correlation is essential. Serum or plasma thyroid stim ulating hormone (TSH) measurement (units/volume)Ordered By: Malick Al on 11-17-2023 TSH Qn 0.73 uIU/mL 0.358-3.74 [facility] Serum or plasma urea nitroge n measurement (mass/volume)Ordered By: Malick Al on 11-17-2023 Urea nitrogen [Mass/Vol] 23 mg/dL 7-18 [facility] Thin prep Papanicolaou smear with manual screeningOrdered By: Malick Al on 11-17-2023 Protein (U) [Mass/Vol] 23.9 mg/dL 0.0-11.8 [facility] Thin prep Papanicolaou smear with manual screening 3.5 g/dL 3.2-5.0 [facility] Thin prep Papanicolaou smear with manual screening 23 U/L 15-37 [facility] Thin prep Papanicolaou smear with manual screening 0 5-15 [facility] Thin prep Papanicolaou smear with manual screening 27.3 mg/L NO RANGE EST. [facility] Thin prep Papanicolaou smear with manual screening 1.09 ng/dL 0.76-1.46 [facility] Urine blood detectionOrdered By: Malick Al on 11-17-2023 RBC Ql (U) Negative Negative [facility] Urine clarityOrdered By: Robert Al on 11-17-2023 Clarity (U) Clear Clear [facility] Urine color determinationOrd ered By: Malick Al on 11-17-2023 Color (U) Yellow Yellow [facility] Urine creatinine measurement (mass/volume)Ordered By: Malick Al on 11-17-2023 Creatinine (U) [Mass/Vol] 74.40 mg/dL NO RANGE EST. [facility] Urine glucose detectionOrder ed By: Malick Al on 11-17-2023 Glucose Ql (U) Normal mg/dl Normal [facility] Urine leukocyte esterase det ection by dipstickOrdered By: Malick Al on 11-17-2023 Leukocyte esterase Test strip Ql (U) Negative Negative [facility] Urine pHOrdered By: Malick ashby on 11-17-2023 pH (U) 7.0 [pH] 5.0 - 8.0 [facility] Urine protein/creatinine mas s ratioOrdered By: Malick Al on 11-17-2023 Protein/Creatinine (U) [Mass ratio] 321 mg/g CRE 0-200 [facility] Urine specific gravity measu rementOrdered By: Malick Al on 11-17-2023 Specific gravity (U) [Rel density] 1.010 1.002-1.030 [facility] Urine urobilinogen measureme ntOrdered By: Malick Al on 11-17-2023 Urobilinogen Ql (U) Normal mg/dl Normal [facility] Whole blood hemoglobin A1c/t otal hemoglobin ratio (mass fraction)Ordered By: Malick Al on 11-17-2023 HbA1c (Bld) [Mass fraction] 6.0 % 3.8-5.6 [facility] Comment on above: Normal < 5.7 % Predi abetic 5.7 - 6.4 % Diabetic >or= 6.5 % Please note range changes. XR Chest PA and Lateralon IMPRESSION: No acute radiographic abnormality. Manager Social Media: PSC[employer] Transcribe Date/Time: Oct 04 2023 2:53P Dictated by : TRUONG ENG MD This examination was interpreted and the report reviewed and electronically signed by: TRUONG ENG MD on Oct 04 2023 2:59PM [facility] DIVISION OF RADIOLOGY * * *Final Report* [...] acute findings DIVISION OF RADIOLOGY Provider, Rogelio Han - 10/04/2023 * * *Final Report* * [...] findings IMPRESSION IMPRESSION: No acute radiographic abnormality. Manager Social Media: [employer] Transcribe Date/Time: Oct 04 2023 2:53P Dictated by : TRUONG ENG MD This examination was interpreted and the report reviewed and electronically signed by: TRUONG ENG MD on Oct 04 2023 2:59PM EST [facility] Radiology Study observation (narrative) [facility] XR Chest PA and LateralOrder ed By: [facility] Provider on 10-04-2023 [facility] Basophil percentageOrdered B y: Malick Al on 09-06-2023 Bilirubin [Mass/Vol] 0.80 mg/dL 0.20-1.[address] [facility] Comment on above: For patients on eltr ombopag therapy, use of Dimension Strum TBIL is not recommended. Chloride [Moles/Vol] 105 mmol/L 98-[address] [facility] Cholesterol [Mass/Vol] 145 mg/dL <200 [facility] Comment on above: <200 mg/dL Desirable 200-240 mg/dL Borderline >240 mg/dL High Risk Glucose [Mass/Vol] 100 mg/dL 74-106 [facility] Comment on above: Fasting Glucose resu lt from 100 to 125 mg/dL suggests IMPAIRED HOMEOSTASIS per A.D.A. criteria. Potassium [Moles/Vol] 4.3 mmol/L 3.5-5.1 [facility] Protein [Mass/Vol] 7.1 g/dL 6.4-8.2 [facility] Sodium [Moles/Vol] 139 mmol/L 136-145 [facility] Triglyceride [Mass/Vol] 135 mg/dL <199 [facility] Comment on above: The drugs N-Acetylcy steine and Metamizole may falsely depress this assay.Serum Triglycerides Reference Interval Normal <150 mg/dL Borderline high 150 - 199 mg/dL High 200 - 499 mg/dL Very High > or = 500 mg/dL Laboratory - Chemistry and C hemistry - challengeOrdered By: Malick Al on 09-06-2023 ALP [Catalytic activity/Vol] 70 U/L 45-117 [facility] ALT [Catalytic activity/Vol] 31 U/L 16-61 [facility] CO2 [Moles/Vol] 27.0 mmol/L 21.0-32.0 [facility] Globulin (S) [Mass/Vol] 3.3 g/dL 2.2-4.2 [facility] Urea nitrogen/Creatinine [Mass ratio] 13.9 mg/mg 10-20 [facility] No Panel InformationOrdered By: Malick Al on 09-06-2023 Estimated GFR (MDRD) Amer 41 mL/min >60 [facility] Comment on above: GFR Calc Estimated GFR (MDRD) Non-Af Amer 34 mL/min >60 [facility] Comment on above: Non- GFR Calc Serum or plasma albumin gume urement (mass/volume)Ordered By: Malick Al on 09-06-2023 Albumin [Mass/Vol] 3.8 g/dL 3.2-5.0 [facility] Serum or plasma albumin/glob ulin mass ratioOrdered By: Malick Al on 09-06-2023 Albumin/Globulin [Mass ratio] 1.2 {ratio} 0.9-2.4 [facility] Serum or plasma calcium gume urement (mass/volume)Ordered By: Malick Al on 09-06-2023 Calcium [Mass/Vol] 8.7 mg/dL 8.5-10.1 [facility] Serum or plasma cholesterol in HDL measurement (mass/volume)Ordered By: Malick Al on 09-06-2023 Cholesterol in HDL [Mass/Vol] 44 mg/dL >40 [facility] Comment on above: The drugs N-Acetylcy steine and Metamizole may falsely depress this assay. Reference Range HDL <40 mg/dL Low HDL Cholesterol HDL >or= 60 mg/dL High HDL Cholesterol Serum or plasma cholesterol in VLDL measurement (mass/volume)Ordered By: Malick Al on 09-06-2023 Cholesterol in VLDL [Mass/Vol] 27 mg/dL 5-40 [facility] Serum or plasma creatinine m easurement (mass/volume)Ordered By: Malick Al on 09-06-2023 Creatinine [Mass/Vol] 2.01 mg/dL 0.70-1.30 [facility] Comment on above: The validity of the calculated GFR & GFRAA in patients over 70 years has not been determined. Clinical correlation is essential. Serum or plasma low density lipoprotein (LDL) cholesterol measurement (mass/volume)Ordered By: Malick Al on 09-06-2023 Cholesterol in LDL [Mass/Vol] 74 mg/dL 0-130 [facility] Serum or plasma urea nitroge n measurement (mass/volume)Ordered By: Malick Al on 09-06-2023 Urea nitrogen [Mass/Vol] 28 mg/dL 7-18 [facility] Thin prep Papanicolaou smear with manual screeningOrdered By: Malick Al on 09-06-2023 Thin prep Papanicolaou smear with manual screening 24 U/L 15-37 [facility] Thin prep Papanicolaou smear with manual screening 7 5-15 [facility] Whole blood hemoglobin A1c/t otal hemoglobin ratio (mass fraction)Ordered By: Malick Al on 09-06-2023 HbA1c (Bld) [Mass fraction] 5.5 % 3.8-5.6 [facility] Comment on above: Normal < 5.7 % Predi abetic 5.7 - 6.4 % Diabetic >or= 6.5 % Please note range changes. Albumin Elph [Mass/Vol]Order ed By: Mat Mehta on 08-17-2023 Albumin [Mass/Vol] 3.5 g/dL 2.9-4.4 [facility] Basophil percentageOrdered B y: Mat Mehta on 08-17-2023 Basophil percentage Comment . [facility] Comment on above: No monoclonality det ected.Performed at: [facility] [id number] Director: Juan Carson PhD, Phone: [phone] Basophil percentageOrdered B y: Refugio Haynes on 08-17-2023 Basophil percentage 3.0 mg/dL 2.5-4.9 [facility] Chloride [Moles/Vol] 109 mmol/L 98-[address] [facility] Glucose [Mass/Vol] 99 mg/dL 74-106 [facility] Potassium [Moles/Vol] 4.4 mmol/L 3.5-5.1 [facility] Sodium [Moles/Vol] 141 mmol/L 136-145 [facility] WBC (Bld) [#/Vol] 7.8 10*3/uL 4.4-11.0 [facility] Blood erythrocytes count (nu mber/volume)Ordered By: Refugio Haynes on 08-17-2023 RBC (Bld) [#/Vol] 3.84 10*6/uL 4.6-6.2 [facility] Blood hemoglobin measurement (mass/volume)Ordered By: Refugio Haynes on 08-17-2023 Hemoglobin (Bld) [Mass/Vol] 12.6 g/dL 13.0-16.5 [facility] Blood platelet mean volumeOr dered By: Refugio Haynes on 08-17-2023 Platelet mean volume (Bld) [Entitic vol] 10.8 fL 6.2-12.0 [facility] Determination of erythrocyte mean corpuscular volume (MCV)Ordered By: Refugio Haynes on 08-17-2023 MCV (RBC) [Entitic vol] 105.5 fL 80-94 [facility] Hematocrit Auto (Bld) [Volum e fraction]Ordered By: Refugio Haynes on 08-17-2023 Hematocrit (Bld) [Volume fraction] 40.5 % 40-54 [facility] Interpretation of serum or p lasma protein pattern by immunofixation (narrative resultOrdered By: Mat Mehta on 08-17-2023 Protein Fractions Immunofixation Mahin [Interp] See comment [facility] Comment on above: Result: Not Observed Laboratory - Chemistry and C hemistry - challengeOrdered By: Malick Al on 08-17-2023 Free T4 [Mass/Vol] 1.01 ng/dL 0.76-1.46 [facility] Laboratory - Chemistry and C hemistry - challengeOrdered By: Refugio Haynes on 08-17-2023 CO2 [Moles/Vol] 28.0 mmol/L 21.0-32.0 [facility] Urea nitrogen/Creatinine [Mass ratio] 13.9 mg/mg 10-20 [facility] Laboratory - Hematology and Cell countsOrdered By: Refugio Haynes on 08-17-2023 Erythrocyte distribution width (RBC) [Entitic vol] 52.4 fL 35.1-43.9 [facility] Erythrocyte distribution width (RBC) [Ratio] 13.4 % 11.6-14.6 [facility] MCH (RBC) [Entitic mass] 32.8 pg 27.0-32.0 [facility] MCHC Auto (RBC) [Mass/Vol]Or dered By: Refugio Haynes on 08-17-2023 MCHC (RBC) [Mass/Vol] 31.1 g/dL 32-36 [facility] No Panel InformationOrdered By: Mat Mehta on 08-17-2023 Addendum Document Comment . [facility] Comment on above: Protein electrophore sis scan will follow via computer,mail, or box stacker delivery. No Panel InformationOrdered By: Malick Al on 08-17-2023 Thyroid Stimulating Hormone (TSH) 1.40 uIU/mL 0.358-3.74 [facility] No Panel InformationOrdered By: Refugio Haynes on 08-17-2023 Estimated GFR (MDRD) Amer 39 mL/min >60 [facility] Comment on above: GFR Calc Estimated GFR (MDRD) Non-Af Amer 33 mL/min >60 [facility] Comment on above: Non- GFR Calc Parathyroid Hormone (Intact) 51.6 pg/mL 18.4-80.1 [facility] Vitamin D 25-Hydroxy 62.2 ng/mL [facility] Comment on above: Vitamin D 25(OH) Sta tus Range Deficiency <20 ng/mL (50nmol/L) Insufficiency 20 - 30 ng/mL (50 - 75 nmol/L) Sufficiency 30 - 100 ng/mL (75 - 250 nmol/L) Toxicity >100 ng/mL (>250 nmol/L) Platelets bldOrdered By: García Haynes on 08-17-2023 Platelets (Bld) [#/Vol] 231 10*3/uL 150-450 [facility] Serum [id number] measu rement by electrophoresisOrdered By: Mat Mehta on 08-17-2023 Alpha 1 globulin Elph [Mass/Vol] 0.2 g/dL 0.0-0.4 [facility] Alpha 1 globulin Elph [Mass/Vol] 0.6 g/dL 0.4-1.0 [facility] Serum globulin measurement ( mass/volume)Ordered By: Mat Mehta on 08-17-2023 Globulin (S) [Mass/Vol] 2.5 g/dL 2.2-3.9 [facility] Serum or plasma IgA measurem ent (mass/volume)Ordered By: Mat Mehta on 08-17-2023 IgA [Mass/Vol] 159 mg/dL 61-437 [facility] Serum or plasma IgG measurem ent (mass/volume)Ordered By: Mat Mehta on 08-17-2023 IgG [Mass/Vol] 883 mg/dL 603-1613 [facility] Serum or plasma IgM measurem ent (mass/volume)Ordered By: Mat Mehta on 08-17-2023 IgM [Mass/Vol] 39 mg/dL 15-143 [facility] Serum or plasma albumin gume urement (mass/volume)Ordered By: Refugio Haynes on 08-17-2023 Albumin [Mass/Vol] 3.5 g/dL 3.2-5.0 [facility] Serum or plasma beta globuli n measurement by electrophoresis (mass/volume)Ordered By: Mat Mehta on 08-17-2023 Beta globulin Elph [Mass/Vol] 0.8 g/dL 0.7-1.3 [facility] Serum or plasma calcium gume urement (mass/volume)Ordered By: Refugio Haynes on 08-17-2023 Calcium [Mass/Vol] 8.6 mg/dL 8.5-10.1 [facility] Serum or plasma creatinine m easurement (mass/volume)Ordered By: Refugio Haynes on 08-17-2023 Creatinine [Mass/Vol] 2.09 mg/dL 0.70-1.30 [facility] Comment on above: The validity of the calculated GFR & GFRAA in patients over 70 years has not been determined. Clinical correlation is essential. Serum or plasma gamma globul in measurement by electrophoresis (mass/volume)Ordered By: Mat Mehta on 08-17-2023 Gamma globulin Elph [Mass/Vol] 0.9 g/dL 0.4-1.8 [facility] Serum or plasma immunoelectr ophoresis interpretation (nominal result)Ordered By: Mat Mehta on 08-17-2023 Interpretation IEP [Interp] Comment . [facility] Comment on above: No monoclonality det ected. Serum or plasma urea nitroge n measurement (mass/volume)Ordered By: Refugio Haynes on 08-17-2023 Urea nitrogen [Mass/Vol] 29 mg/dL 7-18 [facility] Thin prep Papanicolaou smear with manual screeningOrdered By: Mat Mehta on 08-17-2023 Thin prep Papanicolaou smear with manual screening 1.5 0.7-1.7 [facility] Total protein bloodOrdered B y: Mat Mehta on 08-17-2023 Protein [Mass/Vol] 6.0 g/dL 6.0-8.5 [facility] Urine creatinine measurement (mass/volume)Ordered By: Refugio Haynes on 08-17-2023 Creatinine (U) [Mass/Vol] 81.50 mg/dL NO RANGE EST. [facility] Urine protein measurement (m ass/volume)Ordered By: Refugio Haynes on 08-17-2023 Protein (U) [Mass/Vol] 13.2 mg/dL 0.0-11.8 [facility] Urine protein/creatinine mas s ratioOrdered By: Refugio Haynes on 08-17-2023 Protein/Creatinine (U) [Mass ratio] 162 mg/g CRE 0-200 [facility] Laboratory - Chemistry and C hemistry - challengeon 08-12-2023 Glucose Ql (U) Negative [facility] pH (U) 6.5 [pH] [facility] Specific gravity (U) [Rel density] 1.010 [facility] Urobilinogen (U) [Mass/Vol] 1 mg/dL [facility] Laboratory - Specimen inform ationon 08-12-2023 Clarity (U) Clear [facility] Color (U) Yellow [facility] Laboratory - Urinalysison Nitrite Ql (U) Negative [facility] Protein Ql (U) Trace [facility] No Panel Informationon 08-12 Urine Leukocytes Negatve [facility] Absolute lymphocyte countOrd ered By: Malick Al on 05-16-2023 Lymphocytes Auto (Unsp spec) [#/Vol] 1.92 10*3/uL 0.83-4.51 [facility] Basophil percentageOrdered B y: Malick Al on 05-16-2023 Basophil percentage 2.6 mg/dL 2.5-4.9 [facility] Basophils/100 WBC (Bld) 0.5 % 0-1 [facility] Bilirubin [Mass/Vol] 0.60 mg/dL 0.20-1.[address] [facility] Comment on above: For patients on eltr ombopag therapy, use of Dimension Strum TBIL is not recommended. Chloride [Moles/Vol] 106 mmol/L 98-[address] [facility] Cholesterol [Mass/Vol] 196 mg/dL <200 [facility] Comment on above: <200 mg/dL Desirable 200-240 mg/dL Borderline >240 mg/dL High Risk Eosinophils/100 WBC (Bld) 1.0 % 0-5 [facility] Glucose [Mass/Vol] 165 mg/dL 74-106 [facility] Comment on above: Fasting Glucose resu lt greater than or equal to 126 mg/dL suggests DIABETES MELLITUS per A.D.A. criteria. Neutrophils (Bld) [#/Vol] 5.5 10*3/uL 2.0-7.7 [facility] Neutrophils/100 WBC (Bld) 67.4 % 47-70 [facility] Potassium [Moles/Vol] 4.1 mmol/L 3.5-5.1 [facility] Protein [Mass/Vol] 7.2 g/dL 6.4-8.2 [facility] Sodium [Moles/Vol] 138 mmol/L 136-145 [facility] Triglyceride [Mass/Vol] 300 mg/dL <199 [facility] Comment on above: The drugs N-Acetylcy steine and Metamizole may falsely depress this assay.Serum Triglycerides Reference Interval Normal <150 mg/dL Borderline high 150 - 199 mg/dL High 200 - 499 mg/dL Very High > or = 500 mg/dL WBC (Bld) [#/Vol] 8.2 10*3/uL 4.4-11.0 [facility] Blood erythrocytes count (nu mber/volume)Ordered By: Malick Al on 05-16-2023 RBC (Bld) [#/Vol] 4.37 10*6/uL 4.6-6.2 [facility] Blood hemoglobin measurement (mass/volume)Ordered By: Malick Al on 05-16-2023 Hemoglobin (Bld) [Mass/Vol] 14.4 g/dL 13.0-16.5 [facility] Blood lymphocytes/100 leukoc ytesOrdered By: Malick Al on 05-16-2023 Lymphocytes/100 WBC (Bld) 23.5 % 19-41 [facility] Blood monocytes/100 leukocyt esOrdered By: Malick Al on 05-16-2023 Monocytes/100 WBC (Bld) 7.0 % 0-10 [facility] Blood platelet mean volumeOr dered By: Malick Al on 05-16-2023 Platelet mean volume (Bld) [Entitic vol] 10.4 fL 6.2-12.0 [facility] Determination of erythrocyte mean corpuscular volume (MCV)Ordered By: Malick Al on 05-16-2023 MCV (RBC) [Entitic vol] 99.1 fL 80-94 [facility] Hematocrit Auto (Bld) [Volum e fraction]Ordered By: Malick Al on 05-16-2023 Hematocrit (Bld) [Volume fraction] 43.3 % 40-54 [facility] Laboratory - Chemistry and C hemistry - challengeOrdered By: Malick Al on 05-16-2023 ALP [Catalytic activity/Vol] 86 U/L 45-117 [facility] ALT [Catalytic activity/Vol] 25 U/L 16-61 [facility] CO2 [Moles/Vol] 28.0 mmol/L 21.0-32.0 [facility] Cobalamin (Vitamin B12) [Mass/Vol] 380 pg/mL 211-911 [facility] Free T4 [Mass/Vol] 0.74 ng/dL 0.76-1.46 [facility] Globulin (S) [Mass/Vol] 3.7 g/dL 2.2-4.2 [facility] Urea nitrogen/Creatinine [Mass ratio] 15.4 mg/mg 10-20 [facility] Laboratory - Hematology and Cell countsOrdered By: Malick Al on 05-16-2023 Erythrocyte distribution width (RBC) [Entitic vol] 50.5 fL 35.1-43.9 [facility] Erythrocyte distribution width (RBC) [Ratio] 13.8 % 11.6-14.6 [facility] Immature granulocytes/100 WBC (Bld) 0.600 % 0.0-0.9 [facility] Comment on above: IG% - Immature Granu locytes (promyelocytes, myelocytes and metamyelocytes) > 1% indicates that a LEFT SHIFT is Present. MCH (RBC) [Entitic mass] 33.0 pg 27.0-32.0 [facility] Nucleated RBC/100 WBC (Bld) [Ratio] 0 % 0-5 [facility] MCHC Auto (RBC) [Mass/Vol]Or dered By: Malick Al on 05-16-2023 MCHC (RBC) [Mass/Vol] 33.3 g/dL 32-36 [facility] No Panel InformationOrdered By: Malick Al on 05-16-2023 Estimated GFR (MDRD) Amer 58 mL/min >60 [facility] Comment on above: GFR Calc Estimated GFR (MDRD) Non-Af Amer 48 mL/min >60 [facility] Comment on above: Non- GFR Calc Thyroid Stimulating Hormone (TSH) 4.03 uIU/mL 0.358-3.74 [facility] Vitamin B6 Level 35.4 ug/L 3.4-65.2 [facility] Comment on above: Deficiency: <3.4 Mar ginal: 3.4 - 5.1 Adequate: >5.1 Vitamin D 25-Hydroxy 34.2 ng/mL [facility] Comment on above: Vitamin D 25(OH) Sta tus Range Deficiency <20 ng/mL (50nmol/L) Insufficiency 20 - 30 ng/mL (50 - 75 nmol/L) Sufficiency 30 - 100 ng/mL (75 - 250 nmol/L) Toxicity >100 ng/mL (>250 nmol/L) Whole Blood Vitamin B1 Level 145.4 nmol/L 66.5-200.0 [facility] Comment on above: Performed at: [address] [id number] Director: Zurdo Villasenor MD, Phone: [phone] Platelets bldOrdered By: Robert Al on 05-16-2023 Platelets (Bld) [#/Vol] 263 10*3/uL 150-450 [facility] Serum or plasma albumin gume urement (mass/volume)Ordered By: Malick Al on 05-16-2023 Albumin [Mass/Vol] 3.5 g/dL 3.2-5.0 [facility] Serum or plasma albumin/glob ulin mass ratioOrdered By: Malick Al on 05-16-2023 Albumin/Globulin [Mass ratio] 0.9 {ratio} 0.9-2.4 [facility] Serum or plasma calcium gume urement (mass/volume)Ordered By: Malick Al on 05-16-2023 Calcium [Mass/Vol] 8.7 mg/dL 8.5-10.1 [facility] Serum or plasma cholesterol in HDL measurement (mass/volume)Ordered By: Malick Al on 05-16-2023 Cholesterol in HDL [Mass/Vol] 53 mg/dL >40 [facility] Comment on above: The drugs N-Acetylcy steine and Metamizole may falsely depress this assay. Reference Range HDL <40 mg/dL Low HDL Cholesterol HDL >or= 60 mg/dL High HDL Cholesterol Serum or plasma cholesterol in VLDL measurement (mass/volume)Ordered By: Malick Al on 05-16-2023 Cholesterol in VLDL [Mass/Vol] 60 mg/dL 5-40 [facility] Serum or plasma creatinine m easurement (mass/volume)Ordered By: Malick Al on 05-16-2023 Creatinine [Mass/Vol] 1.49 mg/dL 0.70-1.30 [facility] Comment on above: The validity of the calculated GFR & GFRAA in patients over 70 years has not been determined. Clinical correlation is essential. Serum or plasma low density lipoprotein (LDL) cholesterol measurement (mass/volume)Ordered By: Malick Al on 05-16-2023 Cholesterol in LDL [Mass/Vol] 83 mg/dL 0-130 [facility] Serum or plasma urea nitroge n measurement (mass/volume)Ordered By: Malick Al on 05-16-2023 Urea nitrogen [Mass/Vol] 23 mg/dL 7-18 [facility] Thin prep Papanicolaou smear with manual screeningOrdered By: Malick Al on 05-16-2023 Thin prep Papanicolaou smear with manual screening 15 U/L 15-37 [facility] Thin prep Papanicolaou smear with manual screening 4 5-15 [facility] Whole blood hemoglobin A1c/t otal hemoglobin ratio (mass fraction)Ordered By: Malick Al on 05-16-2023 HbA1c (Bld) [Mass fraction] 5.9 % 3.8-5.6 [facility] Comment on above: Normal < 5.7 % Predi abetic 5.7 - 6.4 % Diabetic >or= 6.5 % Please note range changes. Office Visit (Sleep Medicine )on 02-27-2023 Follow-up [...] or mask interface, please FIRST contact your [employer]. [employer] can be reached at [phone]. For questions concerning your SLEEP CLINIC appointment: Call [phone] SLEEP LAB [phone] or [phone]. CAUTIONS for New [employer] users: 1. You [...] Sites: For patients with ALL SLEEP DISORDERS: [employer] http://sleepeducation.or g; or National Sleep Foundation: https://sleepfoundation. org For patients with ROSITA: [place] Sleep Apnea Association: https://www.sleepapnea.o rg For patients with RLS: RLS Foundation: https://www.rls.org For patients with INSOMNIA: https://www.helpguide.or g/articles/sleep/insomni g-qxenhs-xyt-cures.htm For patients with DEPRESSION: http://www.Promethean/depression Provider Impressions 81 year M with pmhx [...] 0.6V functional:0.7V (more content not included)... Normal [employer] Tobacco Screening.on 023 Fall risk assessment a) No falls within the last year [facility] A2470 DO Work Phone: Tobacco use status CP b) No M [facility] A2470 DO Work Phone: Absolute lymphocyte countOrd ered By: Dr. Al on 02-24-2023 Lymphocytes Auto (Unsp spec) [#/Vol] 1.88 10*3/uL 0.83-4.51 [facility] Basophil percentageOrdered B y: Dr. Al on 02-24-2023 Basophil percentage 0 [facility] 2.5 mg/dL 2.5-4.9 [facility] Basophils/100 WBC (Bld) 0.8 % 0-1 [facility] Bilirubin [Mass/Vol] 0.60 mg/dL 0.20-1.[address] [facility] Comment on above: For patients on eltr ombopag therapy, use of Dimension Strum TBIL is not recommended. Chloride [Moles/Vol] 109 mmol/L 98-[address] [facility] Cholesterol [Mass/Vol] 157 mg/dL <200 [facility] Comment on above: <200 mg/dL Desirable 200-240 mg/dL Borderline >240 mg/dL High Risk Eosinophils/100 WBC (Bld) 3.4 % 0-5 [facility] Glucose [Mass/Vol] 113 mg/dL 74-106 [facility] Comment on above: Fasting Glucose resu lt from 100 to 125 mg/dL suggests IMPAIRED HOMEOSTASIS per A.D.A. criteria. Neutrophils (Bld) [#/Vol] 5.7 10*3/uL 2.0-7.7 [facility] Neutrophils/100 WBC (Bld) 64.5 % 47-70 [facility] Potassium [Moles/Vol] 4.4 mmol/L 3.5-5.1 [facility] Protein [Mass/Vol] 7.0 g/dL 6.4-8.2 [facility] Sodium [Moles/Vol] 142 mmol/L 136-145 [facility] Triglyceride [Mass/Vol] 273 mg/dL <199 [facility] Comment on above: The drugs N-Acetylcy steine and Metamizole may falsely depress this assay.Serum Triglycerides Reference Interval Normal <150 mg/dL Borderline high 150 - 199 mg/dL High 200 - 499 mg/dL Very High > or = 500 mg/dL WBC (Bld) [#/Vol] 8.9 10*3/uL 4.4-11.0 [facility] Bilirubin Test strip Ql (U)O rdered By: Dr. Al on 02-24-2023 Bilirubin Ql (U) Negative Negative [facility] Blood erythrocytes count (nu mber/volume)Ordered By: Dr. Al on 02-24-2023 RBC (Bld) [#/Vol] 4.30 10*6/uL 4.6-6.2 [facility] Blood hemoglobin measurement (mass/volume)Ordered By: Dr. Al on 02-24-2023 Hemoglobin (Bld) [Mass/Vol] 14.3 g/dL 13.0-16.5 [facility] Blood lymphocytes/100 leukoc ytesOrdered By: Dr. Al on 02-24-2023 Lymphocytes/100 WBC (Bld) 21.2 % 19-41 [facility] Blood monocytes/100 leukocyt esOrdered By: Dr. Al on 02-24-2023 Monocytes/100 WBC (Bld) 9.5 % 0-10 [facility] Blood platelet mean volumeOr dered By: Dr. Al on 02-24-2023 Platelet mean volume (Bld) [Entitic vol] 11.2 fL 6.2-12.0 [facility] Determination of erythrocyte mean corpuscular volume (MCV)Ordered By: Dr. Al on 02-24-2023 MCV (RBC) [Entitic vol] 102.6 fL 80-94 [facility] Hematocrit Auto (Bld) [Volum e fraction]Ordered By: Dr. Al on 02-24-2023 Hematocrit (Bld) [Volume fraction] 44.1 % 40-54 [facility] Ketones Test strip Ql (U)Ord ered By: Dr. Al on 02-24-2023 Ketones Ql (U) Negative Negative [facility] Laboratory - Chemistry and C hemistry - challengeOrdered By: Dr. Al on 02-24-2023 ALP [Catalytic activity/Vol] 84 U/L 45-117 [facility] ALT [Catalytic activity/Vol] 23 U/L 16-61 [facility] CK [Catalytic activity/Vol] 52 U/L 39-308 [facility] CO2 [Moles/Vol] 27.0 mmol/L 21.0-32.0 [facility] Cobalamin (Vitamin B12) [Mass/Vol] 329 pg/mL 211-911 [facility] Free T4 [Mass/Vol] 1.02 ng/dL 0.76-1.46 [facility] Globulin (S) [Mass/Vol] 3.4 g/dL 2.2-4.2 [facility] Magnesium [Mass/Vol] 2.2 mg/dL 1.6-2.[address] [facility] Urea nitrogen/Creatinine [Mass ratio] 11.3 mg/mg 10-20 [facility] Laboratory - Hematology and Cell countsOrdered By: Dr. Al on 02-24-2023 Erythrocyte distribution width (RBC) [Entitic vol] 49.6 fL 35.1-43.9 [facility] Erythrocyte distribution width (RBC) [Ratio] 13.1 % 11.6-14.6 [facility] Immature granulocytes/100 WBC (Bld) 0.600 % 0.0-0.9 [facility] Comment on above: IG% - Immature Granu locytes (promyelocytes, myelocytes and metamyelocytes) > 1% indicates that a LEFT SHIFT is Present. MCH (RBC) [Entitic mass] 33.3 pg 27.0-32.0 [facility] Nucleated RBC/100 WBC (Bld) [Ratio] 0 % 0-5 [facility] MCHC Auto (RBC) [Mass/Vol]Or dered By: Dr. Al on 02-24-2023 MCHC (RBC) [Mass/Vol] 32.4 g/dL 32-36 [facility] Mucus LM Ql (Urine sed)Order ed By: Dr. Al on 02-24-2023 Mucus Ql (Urine sed) 0 SEEN /hpf [facility] Nitrite Test strip Ql (U)Ord ered By: Dr. Al on 02-24-2023 Nitrite Ql (U) Negative Negative [facility] No Panel InformationOrdered By: Dr. Al on 02-24-2023 Estimated GFR (MDRD) Amer 57 mL/min >60 [facility] Comment on above: GFR Calc Estimated GFR (MDRD) Non-Af Amer 47 mL/min >60 [facility] Comment on above: Non- GFR Calc Thyroid Stimulating Hormone (TSH) 3.76 uIU/mL 0.358-3.74 [facility] Urine Microalbumin/Creatinine Ratio 22.4 mg/g CRE <30 [facility] Vitamin D 25-Hydroxy 56.2 ng/mL [facility] Comment on above: Vitamin D 25(OH) Sta tus Range Deficiency <20 ng/mL (50nmol/L) Insufficiency 20 - 30 ng/mL (50 - 75 nmol/L) Sufficiency 30 - 100 ng/mL (75 - 250 nmol/L) Toxicity >100 ng/mL (>250 nmol/L) Platelets bldOrdered By: Dr. Al on 02-24-2023 Platelets (Bld) [#/Vol] 287 10*3/uL 150-450 [facility] Protein Test strip Ql (U)Ord ered By: Dr. Al on 02-24-2023 Protein Ql (U) 15 mg/dl Negative [facility] Serum or plasma albumin gume urement (mass/volume)Ordered By: Dr. Al on 02-24-2023 Albumin [Mass/Vol] 3.6 g/dL 3.2-5.0 [facility] Serum or plasma albumin/glob ulin mass ratioOrdered By: Dr. Al on 02-24-2023 Albumin/Globulin [Mass ratio] 1.1 {ratio} 0.9-2.4 [facility] Serum or plasma calcium gume urement (mass/volume)Ordered By: Dr. Al on 02-24-2023 Calcium [Mass/Vol] 9.0 mg/dL 8.5-10.1 [facility] Serum or plasma cholesterol in HDL measurement (mass/volume)Ordered By: Dr. Al on 02-24-2023 Cholesterol in HDL [Mass/Vol] 44 mg/dL >40 [facility] Comment on above: The drugs N-Acetylcy steine and Metamizole may falsely depress this assay. Reference Range HDL <40 mg/dL Low HDL Cholesterol HDL >or= 60 mg/dL High HDL Cholesterol Serum or plasma cholesterol in VLDL measurement (mass/volume)Ordered By: Dr. Al on 02-24-2023 Cholesterol in VLDL [Mass/Vol] 55 mg/dL 5-40 [facility] Serum or plasma creatinine m easurement (mass/volume)Ordered By: Dr. Al on 02-24-2023 Creatinine [Mass/Vol] 1.51 mg/dL 0.70-1.30 [facility] Comment on above: The validity of the calculated GFR & GFRAA in patients over 70 years has not been determined. Clinical correlation is essential. Serum or plasma ferritin stewart surement (mass/volume)Ordered By: Dr. Al on 02-24-2023 Ferritin [Mass/Vol] 235 ng/mL 26-388 [facility] Serum or plasma low density lipoprotein (LDL) cholesterol measurement (mass/volume)Ordered By: Dr. Al on 02-24-2023 Cholesterol in LDL [Mass/Vol] 58 mg/dL 0-130 [facility] Serum or plasma urea nitroge n measurement (mass/volume)Ordered By: Dr. Al on 02-24-2023 Urea nitrogen [Mass/Vol] 17 mg/dL 7-18 [facility] Squamous epithelial cells de tection in urine sediment by light microscopyOrdered By: Dr. Al on 02-24-2023 Epithelial cells.squamous LM Ql (Urine sed) 0 SEEN /hpf 0-5 [facility] Thin prep Papanicolaou smear with manual screeningOrdered By: Dr. Al on 02-24-2023 Thin prep Papanicolaou smear with manual screening 10 U/L 15-37 [facility] Thin prep Papanicolaou smear with manual screening 6 5-15 [facility] Thin prep Papanicolaou smear with manual screening 35.2 mg/L NO RANGE EST. [facility] Urine blood detectionOrdered By: Dr. Al on 02-24-2023 RBC Ql (U) Negative Negative [facility] RBC Ql (U) 0 SEEN /hpf 0-5 [facility] Urine clarityOrdered By: Dr. Al on 02-24-2023 Clarity (U) Clear Clear [facility] Urine color determinationOrd ered By: Dr. Al on 02-24-2023 Color (U) Yellow Yellow [facility] Urine creatinine measurement (mass/volume)Ordered By: Dr. Al on 02-24-2023 Creatinine (U) [Mass/Vol] 157.00 mg/dL NO RANGE EST. [facility] Urine glucose detectionOrder ed By: Dr. Al on 02-24-2023 Glucose Ql (U) Normal mg/dl Normal [facility] Urine leukocyte esterase det ection by dipstickOrdered By: Dr. Al on 02-24-2023 Leukocyte esterase Test strip Ql (U) Negative Negative [facility] Urine pHOrdered By: Dr. Wily rendon on 02-24-2023 pH (U) 5.0 [pH] 5.0 - 8.0 [facility] Urine protein measurement (m ass/volume)Ordered By: Dr. Al on 02-24-2023 Protein (U) [Mass/Vol] 27.1 mg/dL 0.0-11.8 [facility] Urine protein/creatinine mas s ratioOrdered By: Dr. Al on 02-24-2023 Protein/Creatinine (U) [Mass ratio] 173 mg/g CRE 0-200 [facility] Urine sediment bacteria coun t by microscopy (number/high power field)Ordered By: Dr. Al on 02-24-2023 Bacteria LM.HPF (Urine sed) [#/Area] 0 /[HPF] None Seen [facility] Urine specific gravity measu rementOrdered By: Dr. Al on 02-24-2023 Specific gravity (U) [Rel density] 1.020 1.002-1.030 [facility] Urobilinogen Auto test strip Ql (U)Ordered By: Dr. Al on 02-24-2023 Urobilinogen Ql (U) Normal mg/dl Normal [facility] Whole blood hemoglobin A1c/t otal hemoglobin ratio (mass fraction)Ordered By: Dr. Al on 02-24-2023 HbA1c (Bld) [Mass fraction] 5.7 % 3.8-5.6 [facility] Comment on above: Normal < 5.7 % Predi abetic 5.7 - 6.4 % Diabetic >or= 6.5 % Please note range changes. Basophil percentageOrdered B y: Dr. Haynes on 02-13-2023 Basophil percentage 2.4 mg/dL 2.5-4.9 [facility] Chloride [Moles/Vol] 106 mmol/L 98-[address] [facility] Glucose [Mass/Vol] 135 mg/dL 74-106 [facility] Comment on above: Fasting Glucose resu lt greater than or equal to 126 mg/dL suggests DIABETES MELLITUS per A.D.A. criteria. Potassium [Moles/Vol] 3.8 mmol/L 3.5-5.1 [facility] Sodium [Moles/Vol] 139 mmol/L 136-145 [facility] WBC (Bld) [#/Vol] 8.9 10*3/uL 4.4-11.0 [facility] Blood erythrocytes count (nu mber/volume)Ordered By: Dr. Haynes on 02-13-2023 RBC (Bld) [#/Vol] 4.18 10*6/uL 4.6-6.2 [facility] Blood hemoglobin measurement (mass/volume)Ordered By: Dr. Haynes on 02-13-2023 Hemoglobin (Bld) [Mass/Vol] 13.8 g/dL 13.0-16.5 [facility] Blood platelet mean volumeOr dered By: Dr. Haynes on 02-13-2023 Platelet mean volume (Bld) [Entitic vol] 10.4 fL 6.2-12.0 [facility] Determination of erythrocyte mean corpuscular volume (MCV)Ordered By: Dr. Haynes on 02-13-2023 MCV (RBC) [Entitic vol] 102.9 fL 80-94 [facility] Hematocrit Auto (Bld) [Volum e fraction]Ordered By: Dr. Haynes on 02-13-2023 Hematocrit (Bld) [Volume fraction] 43.0 % 40-54 [facility] Laboratory - Chemistry and C hemistry - challengeOrdered By: Dr. Haynes on 02-13-2023 CO2 [Moles/Vol] 27.0 mmol/L 21.0-32.0 [facility] Urea nitrogen/Creatinine [Mass ratio] 10.0 mg/mg 10-20 [facility] Laboratory - Hematology and Cell countsOrdered By: Dr. Haynes on 02-13-2023 Erythrocyte distribution width (RBC) [Entitic vol] 49.2 fL 35.1-43.9 [facility] Erythrocyte distribution width (RBC) [Ratio] 13.0 % 11.6-14.6 [facility] MCH (RBC) [Entitic mass] 33.0 pg 27.0-32.0 [facility] MCHC Auto (RBC) [Mass/Vol]Or dered By: Dr. Haynes on 02-13-2023 MCHC (RBC) [Mass/Vol] 32.1 g/dL 32-36 [facility] No Panel InformationOrdered By: Dr. Haynes on 02-13-2023 Estimated GFR (MDRD) Amer 58 mL/min >60 [facility] Comment on above: GFR Calc Estimated GFR (MDRD) Non-Af Amer 48 mL/min >60 [facility] Comment on above: Non- GFR Calc Parathyroid Hormone (Intact) 44.1 pg/mL 18.4-80.1 [facility] Vitamin D 25-Hydroxy 42.3 ng/mL [facility] Comment on above: Vitamin D 25(OH) Sta tus Range Deficiency <20 ng/mL (50nmol/L) Insufficiency 20 - 30 ng/mL (50 - 75 nmol/L) Sufficiency 30 - 100 ng/mL (75 - 250 nmol/L) Toxicity >100 ng/mL (>250 nmol/L) Platelets bldOrdered By: Dr. Haynes on 02-13-2023 Platelets (Bld) [#/Vol] 273 10*3/uL 150-450 [facility] Serum or plasma albumin gume urement (mass/volume)Ordered By: Dr. Haynes on 02-13-2023 Albumin [Mass/Vol] 3.5 g/dL 3.2-5.0 [facility] Serum or plasma calcium gume urement (mass/volume)Ordered By: Dr. Haynes on 02-13-2023 Calcium [Mass/Vol] 8.6 mg/dL 8.5-10.1 [facility] Serum or plasma creatinine m easurement (mass/volume)Ordered By: Dr. Haynes on 02-13-2023 Creatinine [Mass/Vol] 1.50 mg/dL 0.70-1.30 [facility] Comment on above: The validity of the calculated GFR & GFRAA in patients over 70 years has not been determined. Clinical correlation is essential. Serum or plasma urea nitroge n measurement (mass/volume)Ordered By: Dr. Haynes on 02-13-2023 Urea nitrogen [Mass/Vol] 15 mg/dL 7-18 [facility] Urine creatinine measurement (mass/volume)Ordered By: Dr. Haynes on 02-13-2023 Creatinine (U) [Mass/Vol] 42.70 mg/dL NO RANGE EST. [facility] Urine protein measurement (m ass/volume)Ordered By: Dr. Haynes on 02-13-2023 Protein (U) [Mass/Vol] 7.2 mg/dL 0.0-11.8 [facility] Urine protein/creatinine mas s ratioOrdered By: Dr. Haynes on 02-13-2023 Protein/Creatinine (U) [Mass ratio] 169 mg/g CRE 0-200 [facility] Basophil percentageOrdered B y: Dr. Mehta on 12-27-2022 WBC (Bld) [#/Vol] 5.0 10*3/uL 4.4-11.0 [facility] Blood erythrocytes count (nu mber/volume)Ordered By: Dr. Mehta on 12-27-2022 RBC (Bld) [#/Vol] 3.78 10*6/uL 4.6-6.2 [facility] Blood hemoglobin measurement (mass/volume)Ordered By: Dr. Mehta on 12-27-2022 Hemoglobin (Bld) [Mass/Vol] 12.4 g/dL 13.0-16.5 [facility] Blood platelet mean volumeOr dered By: Dr. Mehta on 12-27-2022 Platelet mean volume (Bld) [Entitic vol] 9.5 fL 6.2-12.0 [facility] Determination of erythrocyte mean corpuscular volume (MCV)Ordered By: Dr. Mehta on 12-27-2022 MCV (RBC) [Entitic vol] 101.1 fL 80-94 [facility] Hematocrit Auto (Bld) [Volum e fraction]Ordered By: Dr. Mehta on 12-27-2022 Hematocrit (Bld) [Volume fraction] 38.2 % 40-54 [facility] Laboratory - Hematology and Cell countsOrdered By: Dr. Mehta on 12-27-2022 Erythrocyte distribution width (RBC) [Entitic vol] 47.9 fL 35.1-43.9 [facility] Erythrocyte distribution width (RBC) [Ratio] 13.0 % 11.6-14.6 [facility] MCH (RBC) [Entitic mass] 32.8 pg 27.0-32.0 [facility] MCHC Auto (RBC) [Mass/Vol]Or dered By: Dr. Mehta on 12-27-2022 MCHC (RBC) [Mass/Vol] 32.5 g/dL 32-36 [facility] Platelets bldOrdered By: Dr. Mehta on 12-27-2022 Platelets (Bld) [#/Vol] 258 10*3/uL 150-450 [facility] Basophil percentageOrdered B y: Dr. Mehta on 2022 Chloride [Moles/Vol] 107 mmol/L 98-[address] [facility] Glucose [Mass/Vol] 110 mg/dL 74-106 [facility] Comment on above: Fasting Glucose resu lt from 100 to 125 mg/dL suggests IMPAIRED HOMEOSTASIS per A.D.A. criteria. Potassium [Moles/Vol] 4.5 mmol/L 3.5-5.1 [facility] Sodium [Moles/Vol] 140 mmol/L 136-145 [facility] Laboratory - Chemistry and C hemistry - challengeOrdered By: Dr. Mehta on 2022 CO2 [Moles/Vol] 29.0 mmol/L 21.0-32.0 [facility] Cobalamin (Vitamin B12) [Mass/Vol] 273 pg/mL 211-911 [facility] Urea nitrogen/Creatinine [Mass ratio] 19.9 mg/mg 10-20 [facility] No Panel InformationOrdered By: Dr. Mehta on 2022 Estimated GFR (MDRD) Amer 60 mL/min >60 [facility] Comment on above: GFR Calc Estimated GFR (MDRD) Non-Af Amer 49 mL/min >60 [facility] Comment on above: Non- GFR Calc Free Lambda Light Chains, Quant 11.3 mg/L 5.7-26.3 [facility] Whole Blood Vitamin B1 Level 132.1 nmol/L 66.5-200.0 [facility] Comment on above: Performed at: - L [address] [id number] Director: Juan Carson PhD, Phone: [phone] at: [facility] [id number] Director: Zurdo Villasenor MD, Phone: [phone] Serum immunoglobulin kappa l ight chains/immunoglobulin lambda light chains mass ratioOrdered By: Dr. Mehta on 2022 Immunoglobulin light chains.kappa/Immunoglob ulin light chains.lambda (S) [Mass ratio] 2.04 0.26-1.65 [facility] Serum or plasma calcium gume urement (mass/volume)Ordered By: Dr. Mehta on 2022 Calcium [Mass/Vol] 9.1 mg/dL 8.5-10.1 [facility] Serum or plasma creatinine m easurement (mass/volume)Ordered By: Dr. Mehta on 2022 Creatinine [Mass/Vol] 1.46 mg/dL 0.70-1.30 [facility] Comment on above: The validity of the calculated GFR & GFRAA in patients over 70 years has not been determined. Clinical correlation is essential. Serum or plasma folate measu rement (mass/volume)Ordered By: Dr. Mehta on 2022 Folate [Mass/Vol] 4.50 ng/mL 3.1-55.4 [facility] Serum or plasma immunoglobul in kappa light chains measurement (mass/volume)Ordered By: Dr. Mehta on 2022 Immunoglobulin light chains.kappa [Mass/Vol] 23.1 mg/L 3.3-19.4 [facility] Serum or plasma urea nitroge n measurement (mass/volume)Ordered By: Dr. Mehta on 2022 Urea nitrogen [Mass/Vol] 29 mg/dL 7-18 [facility] Thin prep Papanicolaou smear with manual screeningOrdered By: Dr. Mehta on 2022 Thin prep Papanicolaou smear with manual screening 4 5-15 [facility] Office Visit (Sleep Medicine )on 11-21-2022 [...] or mask interface, please FIRST contact your [employer]. [employer] can be reached at [phone]. For questions concerning your SLEEP CLINIC appointment: Call [phone] SLEEP LAB [phone] or [phone]. CAUTIONS for New PAP users: 1. You should know the [facility] compliance criteria if you have Medicare or [...] Sites: For patients with ALL SLEEP DISORDERS: [employer] http://sleepeducation.or g; or National Sleep Foundation: https://sleepfoundation. org For patients with ROSITA: [place] Sleep Apnea Association: https://www.sleepapnea.o rg For patients with RLS: RLS Foundation: https://www.rls.org For patients with INSOMNIA: https://www.helpUdacity.or g/articles/sleep/insomni d-nkvjjp-tsu-cures.htm For patients with DEPRESSION: http://www.Promethean/depression Provider Impressions 81 year M with pmhx [...] as the (more content not included)... [facility] Absolute lymphocyte countOrd ered By: Dr. Wilson on 10-28-2022 Lymphocytes Auto (Unsp spec) [#/Vol] 1.74 10*3/uL 0.83-4.51 [facility] Basophil percentageOrdered B y: Dr. Wilson on 10-28-2022 Basophils/100 WBC (Bld) 0.6 % 0-1 [facility] Bilirubin [Mass/Vol] 0.40 mg/dL 0.20-1.[address] [facility] Comment on above: For patients on eltr ombopag therapy, use of Dimension Strum TBIL is not recommended. Chloride [Moles/Vol] 105 mmol/L 98-[address] [facility] Eosinophils/100 WBC (Bld) 1.2 % 0-5 [facility] Glucose [Mass/Vol] 89 mg/dL 74-106 [facility] Neutrophils (Bld) [#/Vol] 5.9 10*3/uL 2.0-7.7 [facility] Neutrophils/100 WBC (Bld) 68.4 % 47-70 [facility] Potassium [Moles/Vol] 4.4 mmol/L 3.5-5.1 [facility] Protein [Mass/Vol] 6.6 g/dL 6.4-8.2 [facility] Sodium [Moles/Vol] 140 mmol/L 136-145 [facility] WBC (Bld) [#/Vol] 8.7 10*3/uL 4.4-11.0 [facility] Blood erythrocytes count (nu mber/volume)Ordered By: Dr. Wilson on 10-28-2022 RBC (Bld) [#/Vol] 4.11 10*6/uL 4.6-6.2 [facility] Blood hemoglobin measurement (mass/volume)Ordered By: Dr. Wilson on 10-28-2022 Hemoglobin (Bld) [Mass/Vol] 13.5 g/dL 13.0-16.5 [facility] Blood lymphocytes/100 leukoc ytesOrdered By: Dr. Wilson on 10-28-2022 Lymphocytes/100 WBC (Bld) 20.1 % 19-41 [facility] Blood monocytes/100 leukocyt esOrdered By: Dr. Wislon on 10-28-2022 Monocytes/100 WBC (Bld) 8.9 % 0-10 [facility] Blood platelet mean volumeOr dered By: Dr. Wilson on 10-28-2022 Platelet mean volume (Bld) [Entitic vol] 10.3 fL 6.2-12.0 [facility] Determination of erythrocyte mean corpuscular volume (MCV)Ordered By: Dr. Wilson on 10-28-2022 MCV (RBC) [Entitic vol] 100.7 fL 80-94 [facility] Hematocrit Auto (Bld) [Volum e fraction]Ordered By: Dr. Wilson on 10-28-2022 Hematocrit (Bld) [Volume fraction] 41.4 % 40-54 [facility] Laboratory - Chemistry and C hemistry - challengeOrdered By: Dr. Wilson on 10-28-2022 ALP [Catalytic activity/Vol] 92 U/L 45-117 [facility] ALT [Catalytic activity/Vol] 56 U/L 16-61 [facility] CO2 [Moles/Vol] 28.0 mmol/L 21.0-32.0 [facility] Globulin (S) [Mass/Vol] 3.4 g/dL 2.2-4.2 [facility] Urea nitrogen/Creatinine [Mass ratio] 12.8 mg/mg 10-20 [facility] Laboratory - Hematology and Cell countsOrdered By: Dr. Wilson on 10-28-2022 Erythrocyte distribution width (RBC) [Entitic vol] 47.5 fL 35.1-43.9 [facility] Erythrocyte distribution width (RBC) [Ratio] 12.7 % 11.6-14.6 [facility] Immature granulocytes/100 WBC (Bld) 0.800 % 0.0-0.9 [facility] Comment on above: IG% - Immature Granu locytes (promyelocytes, myelocytes and metamyelocytes) > 1% indicates that a LEFT SHIFT is Present. MCH (RBC) [Entitic mass] 32.8 pg 27.0-32.0 [facility] Nucleated RBC/100 WBC (Bld) [Ratio] 0 % 0-5 [facility] MCHC Auto (RBC) [Mass/Vol]Or dered By: Dr. Wilson on 10-28-2022 MCHC (RBC) [Mass/Vol] 32.6 g/dL 32-36 [facility] No Panel InformationOrdered By: Dr. Wilson on 10-28-2022 Estimated GFR (MDRD) Amer 49 mL/min >60 [facility] Comment on above: GFR Calc Estimated GFR (MDRD) Non-Af Amer 41 mL/min >60 [facility] Comment on above: Non- GFR Calc Thyroid Stimulating Hormone (TSH) 3.30 uIU/mL 0.358-3.74 [facility] Platelets bldOrdered By: Dr. Wilson on 10-28-2022 Platelets (Bld) [#/Vol] 280 10*3/uL 150-450 [facility] Serum or plasma albumin gume urement (mass/volume)Ordered By: Dr. Wilson on 10-28-2022 Albumin [Mass/Vol] 3.2 g/dL 3.2-5.0 [facility] Serum or plasma albumin/glob ulin mass ratioOrdered By: Dr. Wilson on 10-28-2022 Albumin/Globulin [Mass ratio] 0.9 {ratio} 0.9-2.4 [facility] Serum or plasma calcium gume urement (mass/volume)Ordered By: Dr. Wilson on 10-28-2022 Calcium [Mass/Vol] 8.4 mg/dL 8.5-10.1 [facility] Serum or plasma creatinine m easurement (mass/volume)Ordered By: Dr. Wilson on 10-28-2022 Creatinine [Mass/Vol] 1.72 mg/dL 0.70-1.30 [facility] Comment on above: The validity of the calculated GFR & GFRAA in patients over 70 years has not been determined. Clinical correlation is essential. Serum or plasma urea nitroge n measurement (mass/volume)Ordered By: Dr. Wilson on 10-28-2022 Urea nitrogen [Mass/Vol] 22 mg/dL 7-18 [facility] Thin prep Papanicolaou smear with manual screeningOrdered By: Dr. Wilson on 10-28-2022 Thin prep Papanicolaou smear with manual screening 63 U/L 15-37 [facility] Thin prep Papanicolaou smear with manual screening 7 5-15 [facility] Basophil percentageOrdered B y: Dr. Haynes on 08-08-2022 Basophil percentage 2.7 mg/dL 2.5-4.9 [facility] Chloride [Moles/Vol] 104 mmol/L 98-[address] [facility] Glucose [Mass/Vol] 99 mg/dL 74-106 [facility] Potassium [Moles/Vol] 4.5 mmol/L 3.5-5.1 [facility] Sodium [Moles/Vol] 138 mmol/L 136-145 [facility] WBC (Bld) [#/Vol] 6.7 10*3/uL 4.4-11.0 [facility] Blood erythrocytes count (nu mber/volume)Ordered By: Dr. Haynes on 08-08-2022 RBC (Bld) [#/Vol] 4.08 10*6/uL 4.6-6.2 [facility] Blood hemoglobin measurement (mass/volume)Ordered By: Dr. Haynes on 08-08-2022 Hemoglobin (Bld) [Mass/Vol] 13.2 g/dL 13.0-16.5 [facility] Blood platelet mean volumeOr dered By: Dr. Haynes on 08-08-2022 Platelet mean volume (Bld) [Entitic vol] 10.6 fL 6.2-12.0 [facility] Determination of erythrocyte mean corpuscular volume (MCV)Ordered By: Dr. Haynes on 08-08-2022 MCV (RBC) [Entitic vol] 99.0 fL 80-94 [facility] Hematocrit Auto (Bld) [Volum e fraction]Ordered By: Dr. Haynes on 08-08-2022 Hematocrit (Bld) [Volume fraction] 40.4 % 40-54 [facility] Laboratory - Chemistry and C hemistry - challengeOrdered By: Dr. Haynes on 08-08-2022 CO2 [Moles/Vol] 26.0 mmol/L 21.0-32.0 [facility] Urea nitrogen/Creatinine [Mass ratio] 14.9 mg/mg 08-04 [facility] Laboratory - Hematology and Cell countsOrdered By: Dr. Haynes on 08-08-2022 Erythrocyte distribution width (RBC) [Entitic vol] 50.6 fL 35.1-43.9 [facility] Erythrocyte distribution width (RBC) [Ratio] 13.8 % 11.6-14.6 [facility] MCH (RBC) [Entitic mass] 32.4 pg 27.0-32.0 [facility] MCHC Auto (RBC) [Mass/Vol]Or dered By: Dr. Haynes on 08-08-2022 MCHC (RBC) [Mass/Vol] 32.7 g/dL 32-36 [facility] No Panel InformationOrdered By: Dr. Haynes on 08-08-2022 Estimated GFR (MDRD) Amer 48 mL/min >60 [facility] Comment on above: GFR Calc Estimated GFR (MDRD) Non-Af Amer 40 mL/min >60 [facility] Comment on above: Non- GFR Calc Parathyroid Hormone (Intact) 82.2 pg/mL 18.4-80.1 [facility] Vitamin D 25-Hydroxy 48.6 ng/mL [facility] Comment on above: Vitamin D 25(OH) Sta tus Range Deficiency <20 ng/mL (50nmol/L) Insufficiency 20 - 30 ng/mL (50 - 75 nmol/L) Sufficiency 30 - 100 ng/mL (75 - 250 nmol/L) Toxicity >100 ng/mL (>250 nmol/L) Platelets bldOrdered By: Dr. Haynes on 08-08-2022 Platelets (Bld) [#/Vol] 260 10*3/uL 150-450 [facility] Serum or plasma albumin gume urement (mass/volume)Ordered By: Dr. Haynes on 08-08-2022 Albumin [Mass/Vol] 3.6 g/dL 3.2-5.0 [facility] Serum or plasma calcium gume urement (mass/volume)Ordered By: Dr. Haynes on 08-08-2022 Calcium [Mass/Vol] 8.9 mg/dL 8.5-10.1 [facility] Serum or plasma creatinine m easurement (mass/volume)Ordered By: Dr. Haynes on 08-08-2022 Creatinine [Mass/Vol] 1.75 mg/dL 0.70-1.30 [facility] Comment on above: The validity of the calculated GFR & GFRAA in patients over 70 years has not been determined. Clinical correlation is essential. Serum or plasma urea nitroge n measurement (mass/volume)Ordered By: Dr. Haynes on 08-08-2022 Urea nitrogen [Mass/Vol] 26 mg/dL 7-18 [facility] Urine creatinine measurement (mass/volume)Ordered By: Dr. Haynes on 08-08-2022 Creatinine (U) [Mass/Vol] 132.00 mg/dL NO RANGE EST. [facility] Urine protein measurement (m ass/volume)Ordered By: Dr. Haynes on 08-08-2022 Protein (U) [Mass/Vol] 22.0 mg/dL 0.0-11.8 [facility] Urine protein/creatinine mas s ratioOrdered By: Dr. Haynes on 08-08-2022 Protein/Creatinine (U) [Mass ratio] 167 mg/g CRE 0-200 [facility] Glucose Glucometer (BldC) [M ass/Vol]on 06-16-2022 Glucose [Mass/Vol] 81 mg/dL 74-106 [facility] Work Phone: Comment on above: MANAGEMENT OF PATIEN T CARE PER NURSING PROTOCOL Absolute lymphocyte counton 06-15-2022 Lymphocytes Auto (Unsp spec) [#/Vol] 2.02 10*3/uL 0.83-4.51 [facility] Work Phone: Basophil percentageon 2021 Basophils/100 WBC (Bld) 0.7 % 0-1 [facility] Work Phone: Chloride [Moles/Vol] 106 mmol/L 98-107 [facility] Work Phone: Eosinophils/100 WBC (Bld) 1.8 % 0-5 [facility] Work Phone: Glucose [Mass/Vol] 145 mg/dL 74-106 [facility] Work Phone: Comment on above: Fasting Glucose resu lt greater than or equal to 126 mg/dL suggests DIABETES MELLITUS per A.D.A. criteria. Neutrophils (Bld) [#/Vol] 5.8 10*3/uL 2.0-7.7 [facility] Work Phone: Neutrophils/100 WBC (Bld) 66.9 % 47-70 [facility] Work Phone: Potassium [Moles/Vol] 4.1 mmol/L 3.5-5.1 [facility] Work Phone: Sodium [Moles/Vol] 140 mmol/L 136-145 [facility] Work Phone: WBC (Bld) [#/Vol] 8.7 10*3/uL 4.4-11.0 [facility] Work Phone: [phone] Blood erythrocytes count (nu mber/volume)on 06-15-2022 RBC (Bld) [#/Vol] 4.24 10*6/uL 4.6-6.2 [facility] Work Phone: [phone] Blood hemoglobin measurement (mass/volume)on 06-15-2022 Hemoglobin (Bld) [Mass/Vol] 13.7 g/dL 13.0-16.5 [facility] Work Phone: Blood lymphocytes/100 leukoc yteson 08-31-2022 Lymphocytes/100 WBC (Bld) 23.4 % 19-41 [facility] Work Phone: Blood monocytes/100 leukocyt eson 06-15-2022 Monocytes/100 WBC (Bld) 6.6 % 0-10 [facility] Work Phone: Blood platelet mean volumeon 06-15-2022 Platelet mean volume (Bld) [Entitic vol] 9.8 fL 6.2-12.0 [facility] Work Phone: Determination of erythrocyte mean corpuscular volume (MCV)on 06-15-2022 MCV (RBC) [Entitic vol] 98.8 fL 80-94 [facility] Work Phone: Hematocrit Auto (Bld) [Volum e fraction]on 06-15-2022 Hematocrit (Bld) [Volume fraction] 41.9 % 40-54 [facility] Work Phone: Laboratory - Chemistry and C hemistry - challengeon 06-15-2022 CO2 [Moles/Vol] 29.0 mmol/L 21.0-32.0 [facility] Work Phone: Urea nitrogen/Creatinine [Mass ratio] 14.3 mg/mg 10-20 [facility] Work Phone: Laboratory - Hematology and Cell countson 06-15-2022 Erythrocyte distribution width (RBC) [Entitic vol] 46.0 fL 35.1-43.9 [facility] Work Phone: Erythrocyte distribution width (RBC) [Ratio] 12.8 % 11.6-14.6 [facility] Work Phone: Immature granulocytes/100 WBC (Bld) 0.600 % 0.0-0.9 [facility] Work Phone: Comment on above: IG% - Immature Granu locytes (promyelocytes, myelocytes and metamyelocytes) > 1% indicates that a LEFT SHIFT is Present. MCH (RBC) [Entitic mass] 32.3 pg 27.0-32.0 [facility] Work Phone: Nucleated RBC/100 WBC (Bld) [Ratio] 0 % 0-5 [facility] Work Phone: MCHC Auto (RBC) [Mass/Vol]on 06-15-2022 MCHC (RBC) [Mass/Vol] 32.7 g/dL 32-36 [facility] Work Phone: No Panel Informationon 06-15 Estimated GFR (MDRD) Amer 59 mL/min >60 [facility] Work Phone: Comment on above: GFR Calc Estimated GFR (MDRD) Non-Af Amer 49 mL/min >60 [facility] Work Phone: Comment on above: Non- GFR Calc Platelets bldon 06-15-2022 Platelets (Bld) [#/Vol] 293 10*3/uL 150-450 [facility] Work Phone: Serum or plasma calcium gume urement (mass/volume)on 06-15-2022 Calcium [Mass/Vol] 9.0 mg/dL 8.5-10.1 [facility] Work Phone: Serum or plasma creatinine m easurement (mass/volume)on 06-15-2022 Creatinine [Mass/Vol] 1.47 mg/dL 0.70-1.30 [facility] Work Phone: Comment on above: The validity of the calculated GFR & GFRAA in patients over 70 years has not been determined. Clinical correlation is essential. Serum or plasma urea nitroge n measurement (mass/volume)on 06-15-2022 Urea nitrogen [Mass/Vol] 21 mg/dL 7-18 [facility] Work Phone: Thin prep Papanicolaou smear with manual screeningon 06-15-2022 Thin prep Papanicolaou smear with manual screening 5 5-15 [facility] Work Phone: Whole blood hemoglobin A1c/t otal hemoglobin ratio (mass fraction)on 06-15-2022 HbA1c (Bld) [Mass fraction] 5.8 % 3.8-5.6 [facility] Work Phone: Comment on above: Normal < 5.7 % Predi abetic 5.7 - 6.4 % Diabetic >or= 6.5 % Please note range changes. No Panel Informationon 06-03 IMPRESSION: Oblique fracture of the distal right fibula Manager Social Media: [employer] Transcribe Date/Time: Jun 03 2022 10:41A Dictated by : DEBRA PENDLETON MD This examination was interpreted and the report reviewed and electronically signed by: DEBRA PENDLETON MD on Jun 03 2022 10:43AM [facility] DIVISION OF RADIOLOGY Radiology Study observation (narrative) [facility] No Panel InformationOrdered By: Ccf Provider on 06-03-2022 [facility] XR Ankle - right AP and [...] AP/LAT/OBL RT -- RIGHT with 2 (accession [id number]), 3 (accession [id number]) views on 2 (accession [id number]), 3 (accession [id number]) images Comparison: None RESULT: Oblique fracture of the distal right fibula with approximately 3 mm displacement. No dislocation. Ankle mortise is maintained. Plantar calcaneal spur. Right knee prosthesis. Soft tissue swelling of the right ankle. DIVISION OF RADIOLOGY Provider, [facility] - 06/03/2022 * * *Final [...] AP/LAT/OBL RT -- RIGHT with 2 (accession [id number]), 3 (accession [id number]) views on 2 (accession [id number]), 3 (accession [id number]) images Comparison: None RESULT: Oblique fracture of the distal right fibula with approximately 3 mm displacement. No dislocation. Ankle mortise is maintained. Plantar calcaneal spur. Right knee prosthesis. Soft tissue swelling of the right ankle. IMPRESSION IMPRESSION: Oblique fracture of the distal right fibula Manager Social Media: [facility] Transcribe Date/Time: Jun 03 2022 10:41A Dictated by : DEBRA PENDLETON MD This examination was interpreted and the report reviewed and electronically signed by: DEBRA PENDLETON MD on Jun 03 2022 10:43AM [facility] XR Tibia and Fibula - right [...] AP/LAT/OBL RT -- RIGHT with 2 (accession [id number]), 3 (accession [id number]) views on 2 (accession [id number]), 3 (accession [id number]) images Comparison: None RESULT: Oblique fracture of the distal right fibula with approximately 3 mm displacement. No dislocation. Ankle mortise is maintained. Plantar calcaneal spur. Right knee prosthesis. Soft tissue swelling of the right ankle. DIVISION OF RADIOLOGY Provider, [facility] - 06/03/2022 * * *Final [...] AP/LAT/OBL RT -- RIGHT with 2 (accession [id number]), 3 (accession [id number]) views on 2 (accession [id number]), 3 (accession [id number]) images Comparison: None RESULT: Oblique fracture of the distal right fibula with approximately 3 mm displacement. No dislocation. Ankle mortise is maintained. Plantar calcaneal spur. Right knee prosthesis. Soft tissue swelling of the right ankle. IMPRESSION IMPRESSION: Oblique fracture of the distal right fibula Manager Social Media: [facility] Transcribe Date/Time: Jun 03 2022 10:41A Dictated by : DEBRA PENDLETON MD This examination was interpreted and the report reviewed and electronically signed by: DEBRA PENDLETON MD on Jun 03 2022 10:43AM EST [facility] - Microbiology an d Antimicrobial susceptibilityon 05-19-2022 SARS-CoV-2 (COVID-19) RNA SADE+probe Ql (Unsp spec) Not detected Not Detect [facility] Work Phone: Comment on above: Normal Reference Ran ge: Not DetectedMethod:(RT-PCR) real-time reverse transcriptase PCRLuminex LILO Instrument*The Food and Drug Administration (FDA) has issued an Emergency Use Authorization (EAU) for the LILO SARS-CoV-2 Assay for the rapid detection of the virus that causes COVID-19. This test has been validated, but the FDAs independent review of this validation is pending.*Negative results do not preclude infection and should not be used as the sole basis for treatment or patient management. Optimum specimen types and timing for peak viral levels during infections caused by SARS-CoV-2 have not been determined. Collection of multiple specimens from the same patient may be necessary to detect the virus. The possibility of a false negative result should be considered if the patient has clinical presentation or has had recent exposure. Absolute lymphocyte counton 05-12-2022 Lymphocytes Auto (Unsp spec) [#/Vol] 1.26 10*3/uL 0.83-4.51 [facility] Work Phone: Basophil percentageon 2021 Basophil percentage 0-5 SEEN /hpf 0-5 [facility] Work Phone: Basophils/100 WBC (Bld) 0.3 % 0-1 [facility] Work Phone: Bilirubin [Mass/Vol] 0.90 mg/dL 0.20-1.[address] [facility] Work Phone: [phone] Comment on above: For patients on eltr ombopag therapy, use of Dimension Strum TBIL is not recommended. Chloride [Moles/Vol] 102 mmol/L 98-[address] [facility] Work Phone: Eosinophils/100 WBC (Bld) 0.1 % 0-5 [facility] Work Phone: Glucose [Mass/Vol] 141 mg/dL 74-106 [facility] Work Phone: Comment on above: Fasting Glucose resu lt greater than or equal to 126 mg/dL suggests DIABETES MELLITUS per A.D.A. criteria. Neutrophils (Bld) [#/Vol] 12.5 10*3/uL 2.0-7.7 [facility] Work Phone: Neutrophils/100 WBC (Bld) 81.5 % 47-70 [facility] Work Phone: Potassium [Moles/Vol] 4.5 mmol/L 3.5-5.1 [facility] Work Phone: [phone] Protein [Mass/Vol] 7.6 g/dL 6.4-8.2 [facility] Work Phone: Sodium [Moles/Vol] 138 mmol/L 136-145 [facility] Work Phone: WBC (Bld) [#/Vol] 15.3 10*3/uL 4.4-11.0 [facility] Work Phone: Bilirubin Test strip Ql (U)o n 05-12-2022 Bilirubin Ql (U) Negative Negative [facility] Work Phone: Blood erythrocytes count (nu mber/volume)on 05-12-2022 RBC (Bld) [#/Vol] 4.86 10*6/uL 4.6-6.2 [facility] Work Phone: Blood hemoglobin measurement (mass/volume)on 05-12-2022 Hemoglobin (Bld) [Mass/Vol] 16.1 g/dL 13.0-16.5 [facility] Work Phone: Blood lymphocytes/100 leukoc yteson 05-12-2022 Lymphocytes/100 WBC (Bld) 8.2 % 19-41 [facility] Work Phone: Blood monocytes/100 leukocyt eson 05-12-2022 Monocytes/100 WBC (Bld) 9.2 % 0-10 [facility] Work Phone: Blood platelet mean volumeon 05-12-2022 Platelet mean volume (Bld) [Entitic vol] 10.1 fL 6.2-12.0 [facility] Work Phone: Determination of erythrocyte mean corpuscular volume (MCV)on 05-12-2022 MCV (RBC) [Entitic vol] 98.6 fL 80-94 [facility] Work Phone: Hematocrit Auto (Bld) [Volum e fraction]on 05-12-2022 Hematocrit (Bld) [Volume fraction] 47.9 % 40-54 [facility] Work Phone: Hyaline casts LM.LPF (Urine sed) [#/Area]on 05-12-2022 Hyaline casts (Urine sed) [#/Area] 5 /[LPF] 0-5 [facility] Work Phone: INR in Blood by Coagulation assayon 05-12-2022 INR Coag (Bld) [Relative time] 1.1 {INR} [facility] Work Phone: Ketones Test strip Ql (U)on 05-12-2022 Ketones Ql (U) 5 mg/dl Negative [facility] Work Phone: Laboratory - Chemistry and C hemistry - challengeon 05-12-2022 ALP [Catalytic activity/Vol] 71 U/L 45-117 [facility] Work Phone: ALT [Catalytic activity/Vol] 14 U/L 16-61 [facility] Work Phone: CO2 [Moles/Vol] 29.0 mmol/L 21.0-32.0 [facility] Work Phone: Globulin (S) [Mass/Vol] 4.0 g/dL 2.2-4.2 [facility] Work Phone: Urea nitrogen/Creatinine [Mass ratio] 10.4 mg/mg 10-20 [facility] Work Phone: Laboratory - Coagulationon 0 05-12-2022 aPTT Coag (Bld) [Time] 29.9 s 24.1-36.2 [facility] Work Phone: PT Coag (PPP) [Time] 13.7 s 11.7-14.[address] [facility] Work Phone: Laboratory - Hematology and Cell countson 05-12-2022 Erythrocyte distribution width (RBC) [Entitic vol] 45.6 fL 35.1-43.9 [facility] Work Phone: Erythrocyte distribution width (RBC) [Ratio] 13.0 % 11.6-14.6 [facility] Work Phone: Immature granulocytes/100 WBC (Bld) 0.700 % 0.0-0.9 [facility] Work Phone: Comment on above: IG% - Immature Granu locytes (promyelocytes, myelocytes and metamyelocytes) > 1% indicates that a LEFT SHIFT is Present. MCH (RBC) [Entitic mass] 33.1 pg 27.0-32.0 [facility] Work Phone: Nucleated RBC/100 WBC (Bld) [Ratio] 0 % 0-5 [facility] Work Phone: [phone] MCHC Auto (RBC) [Mass/Vol]on 05-12-2022 MCHC (RBC) [Mass/Vol] 33.6 g/dL 32-36 [facility] Work Phone: Mucus LM Ql (Urine sed)on Mucus Ql (Urine sed) 0 SEEN /hpf [facility] Work Phone: Nitrite Test strip Ql (U)on 05-12-2022 Nitrite Ql (U) Negative Negative [facility] Work Phone: No Panel Informationon 05-12 Estimated Creatinine Clearance Calc 21.92 ml/min [facility] Work Phone: Estimated GFR (MDRD) Amer 31 mL/min >60 [facility] Work Phone: Comment on above: GFR Calc Estimated GFR (MDRD) Non-Af Amer 25 mL/min >60 [facility] Work Phone: Comment on above: Non- GFR Calc Platelets bldon 05-12-2022 Platelets (Bld) [#/Vol] 252 10*3/uL 150-450 [facility] Work Phone: Protein Test strip Ql (U)on 05-12-2022 Protein Ql (U) 30 mg/dl Negative [facility] Work Phone: Serum or plasma albumin gume urement (mass/volume)on 05-12-2022 Albumin [Mass/Vol] 3.6 g/dL 3.2-5.0 [facility] Work Phone: Serum or plasma albumin/glob ulin mass ratioon 05-12-2022 Albumin/Globulin [Mass ratio] 0.9 {ratio} 0.9-2.4 [facility] Work Phone: Serum or plasma calcium gume urement (mass/volume)on 05-12-2022 Calcium [Mass/Vol] 8.9 mg/dL 8.5-10.1 [facility] Work Phone: Serum or plasma creatinine m easurement (mass/volume)on 05-12-2022 Creatinine [Mass/Vol] 2.60 mg/dL 0.70-1.30 [facility] Work Phone: Comment on above: The validity of the calculated GFR & GFRAA in patients over 70 years has not been determined. Clinical correlation is essential. Serum or plasma urea nitroge n measurement (mass/volume)on 05-12-2022 Urea nitrogen [Mass/Vol] 27 mg/dL 7-18 [facility] Work Phone: Squamous epithelial cells de tection in urine sediment by light microscopyon 05-12-2022 Epithelial cells.squamous LM Ql (Urine sed) 0 SEEN /hpf 0-5 [facility] Work Phone: Thin prep Papanicolaou smear with manual screeningon 05-12-2022 Thin prep Papanicolaou smear with manual screening 13 U/L 15-37 [facility] Work Phone: Thin prep Papanicolaou smear with manual screening 7 5-15 [facility] Work Phone: Urine blood detectionon 04-16 RBC Ql (U) 250 /ul Negative [facility] Work Phone: RBC Ql (U) 50-100 SEEN /hpf 0-5 [facility] Work Phone: Urine clarityon 05-12-2022 Clarity (U) Sl Cloudy Clear [facility] Work Phone: Urine color determinationon 05-12-2022 Color (U) Dk Yello Yellow [facility] Work Phone: Urine glucose detectionon Glucose Ql (U) Normal mg/dl Normal [facility] Work Phone: Urine leukocyte esterase det ection by dipstickon 05-12-2022 Leukocyte esterase Test strip Ql (U) Negative Negative [facility] Work Phone: Urine pHon 05-12-2022 pH (U) 6.0 [pH] 5.0 - 8.0 [facility] Work Phone: Urine sediment bacteria coun t by microscopy (number/high power field)on 05-12-2022 Bacteria LM.HPF (Urine sed) [#/Area] 1 /[HPF] None Seen [facility] Work Phone: Urine specific gravity measu rementon 05-12-2022 Specific gravity (U) [Rel density] 1.020 1.002-1.030 [facility] Work Phone: Urobilinogen Auto test strip Ql (U)on 05-12-2022 Urobilinogen Ql (U) Normal mg/dl Normal [facility] Work Phone: Absolute lymphocyte counton 05-09-2022 Lymphocytes Auto (Unsp spec) [#/Vol] 1.25 10*3/uL 0.83-4.51 [facility] Work Phone: Basophil percentageon 2021 Basophils/100 WBC (Bld) 0.4 % 0-1 [facility] Work Phone: Chloride [Moles/Vol] 105 mmol/L 98-[address] [facility] Work Phone: Eosinophils/100 WBC (Bld) 0.4 % 0-5 [facility] Work Phone: Glucose [Mass/Vol] 147 mg/dL 74-106 [facility] Work Phone: Comment on above: Fasting Glucose resu lt greater than or equal to 126 mg/dL suggests DIABETES MELLITUS per A.D.A. criteria. Neutrophils (Bld) [#/Vol] 9.3 10*3/uL 2.0-7.7 [facility] Work Phone: [phone] Neutrophils/100 WBC (Bld) 81.5 % 47-70 [facility] Work Phone: [phone] Potassium [Moles/Vol] 4.4 mmol/L 3.5-5.1 [facility] Work Phone: [phone] Sodium [Moles/Vol] 138 mmol/L 136-145 [facility] Work Phone: [phone] WBC (Bld) [#/Vol] 11.4 10*3/uL 4.4-11.0 [facility] Work Phone: Blood erythrocytes count (nu mber/volume)on 05-09-2022 RBC (Bld) [#/Vol] 4.46 10*6/uL 4.6-6.2 [facility] Work Phone: Blood hemoglobin measurement (mass/volume)on 05-09-2022 Hemoglobin (Bld) [Mass/Vol] 14.8 g/dL 13.0-16.5 [facility] Work Phone: Blood lymphocytes/100 leukoc yteson 05-09-2022 Lymphocytes/100 WBC (Bld) 11.0 % 19-41 [facility] Work Phone: Blood monocytes/100 leukocyt eson 05-09-2022 Monocytes/100 WBC (Bld) 6.1 % 0-10 [facility] Work Phone: Blood platelet mean volumeon 05-09-2022 Platelet mean volume (Bld) [Entitic vol] 10.3 fL 6.2-12.0 [facility] Work Phone: Determination of erythrocyte mean corpuscular volume (MCV)on 05-09-2022 MCV (RBC) [Entitic vol] 100.4 fL 80-94 [facility] Work Phone: Hematocrit Auto (Bld) [Volum e fraction]on 05-09-2022 Hematocrit (Bld) [Volume fraction] 44.8 % 40-54 [facility] Work Phone: INR in Blood by Coagulation assayon 05-09-2022 INR Coag (Bld) [Relative time] 0.9 {INR} [facility] Work Phone: Laboratory - Chemistry and C hemistry - challengeon 05-09-2022 CO2 [Moles/Vol] 30.0 mmol/L 21.0-32.0 [facility] Work Phone: Urea nitrogen/Creatinine [Mass ratio] 12.7 mg/mg 10-20 [facility] Work Phone: Laboratory - Coagulationon 0 05-09-2022 aPTT Coag (Bld) [Time] 27.8 s 24.1-36.2 [facility] Work Phone: PT Coag (PPP) [Time] 12.2 s 11.7-14.[address] [facility] Work Phone: Laboratory - Hematology and Cell countson 05-09-2022 Erythrocyte distribution width (RBC) [Entitic vol] 48.3 fL 35.1-43.9 [facility] Work Phone: Erythrocyte distribution width (RBC) [Ratio] 13.0 % 11.6-14.6 [facility] Work Phone: Immature granulocytes/100 WBC (Bld) 0.600 % 0.0-0.9 [facility] Work Phone: Comment on above: IG% - Immature Granu locytes (promyelocytes, myelocytes and metamyelocytes) > 1% indicates that a LEFT SHIFT is Present. MCH (RBC) [Entitic mass] 33.2 pg 27.0-32.0 [facility] Work Phone: Nucleated RBC/100 WBC (Bld) [Ratio] 0 % 0-5 [facility] Work Phone: MCHC Auto (RBC) [Mass/Vol]on 05-09-2022 MCHC (RBC) [Mass/Vol] 33.0 g/dL 32-36 [facility] Work Phone: No Panel Informationon 05-09 Estimated Creatinine Clearance Calc 36.08 ml/min [facility] Work Phone: Estimated GFR (MDRD) Amer 55 mL/min >60 [facility] Work Phone: Comment on above: GFR Calc Estimated GFR (MDRD) Non-Af Amer 45 mL/min >60 [facility] Work Phone: Comment on above: Non- GFR Calc Platelets bldon 05-09-2022 Platelets (Bld) [#/Vol] 246 10*3/uL 150-450 [facility] Work Phone: Serum or plasma calcium gume urement (mass/volume)on 05-09-2022 Calcium [Mass/Vol] 9.1 mg/dL 8.5-10.1 [facility] Work Phone: Serum or plasma creatinine m easurement (mass/volume)on 05-09-2022 Creatinine [Mass/Vol] 1.58 mg/dL 0.70-1.30 [facility] Work Phone: Comment on above: The validity of the calculated GFR & GFRAA in patients over 70 years has not been determined. Clinical correlation is essential. Serum or plasma urea nitroge n measurement (mass/volume)on 05-09-2022 Urea nitrogen [Mass/Vol] 20 mg/dL 7-18 [facility] Work Phone: Thin prep Papanicolaou smear with manual screeningon 05-09-2022 Thin prep Papanicolaou smear with manual screening 3 5-15 [facility] Work Phone: Office Visit (Sleep Medicine )on 03-21-2022 Follow-up visit Diagnoses/Problems Assessed Obstructive sleep apnea, adult (327.23) (G47.33) Orders Obstructive sleep apnea, adult In Lab PSG Sleep Study, 6 years of age and greater; Status:Hold For - Scheduling; Requested for:21Mar2022; Perform:Sleep Lab - [place] [facility]; Order Comments:inspire titration study. Please start at 2.0V. do not use oral appliance during this study please.; Due:[id number];Ordered; For:Obstructive sleep apnea, adult; Ordered By:Justin Dial; Non-ambulatory,manny mccann,other physical limitations? : No Ensuresis(prep bed), Technology [...] or mask interface, please FIRST contact your [employer]. [employer] can be reached at [phone]. For questions concerning your SLEEP CLINIC appointment: Call [phone] SLEEP LAB [phone] or [phone]. CAUTIONS for New PAP users: 1. You should know the [facility] compliance criteria if you have Medicare or [...] Sites: For patients with ALL SLEEP DISORDERS: [employer] http://sleepeducation.or g; or National Sleep Foundation: https://sleepfoundation. org For patients with ROSITA: [place] Sleep Apnea Association: https://www.sleepapnea.o rg For patients with RLS: RLS Foundation: https://www.rls.org For patients with INSOMNIA: https://www.helpguide.or g/articles/sleep/insomni z-nntdsx-hus-cures.htm For patients with DEPRESSION: http://www.[employer] .FM Global/depression Provider Impressions 81 year M with pmhx [...] For Visit (more content not included)... Normal [facility] [employer] Tobacco Screening.on Fall risk assessment a) No falls within the last year [facility] radha A2470 DO Work Phone: Tobacco use status [facility] b) No M [facility] radha A2470 DO Work Phone: ANES POSTPROC EVALon 022 ANES POSTPROC EVAL HNO ID: [id number] Author: Wolfgang Carney MD Service: Anesthesiology Author Type: Physician Type: Anesthesia Postprocedure Evaluation Filed: 12/13/2021 12:49 PM Note Text: POST ANESTHESIA EVALUATION NOTE : 1940 Procedure Summary Date: 12/13/21 Room / Location: [facility] Endoscopy Anesthesia Start: 1110 Anesthesia Stop: 1132 Procedure: EGD DIAGNOSTIC Diagnosis: 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 (Follow-up of Small's esophagus) Scheduled Providers: Smith Burton MD; Norma Angel APRN.GAS ANALYST; Wolfgang Carney MD Responsible Provider: Wolfgang [...] December 13, 2021 TIME: 12:48 PM CSN: [id number] Normal [facility] ANES PRE-OPon 12-13-2021 ANES PRE-OP HNO ID: [id number] Author: Wolfgang Carney MD Service: Anesthesiology Author Type: Physician Type: Anesthesia Preprocedure Evaluation Filed: 12/13/2021 10:10 AM Note Text: ANESTHESIOLOGY DAY OF SURGERY NOTE : 1940 Procedure Information Date/Time: 12/13/21 1100 Scheduled providers: Smiht Burton MD; Norma Angel APRN.GAS ANALYST; Wolfgang Carney MD Procedure: EGD DIAGNOSTIC Location: [facility] Endoscopy Estimated body mass index is 27.8 kg/m? as calculated from the following: Height as of 12/02/21: 174.2 cm (5' 8.58). Weight as of 12/02/21: 84.4 kg (186 [...] mg by mouth twice daily. - lancets ([employer] DELScholarPRO LANCETS) 30 gauge misc Use as directed to test glucose 3 times weekly. DX: E11.9 - dupilumab (DUPIXENT SUBCUTANEOUS) Inject subcutaneously as needed (taking every three weeks). 08/17/2021 reported taking every 3 weeks (Patient not taking: Reported on 12/02/2021 ) - cyanocobalamin, vitamin B-12, (VITAMIN B-12 INJECTION) by INJECTION(UNSPECIFIED PARENTERAL ROUTES) route once every month. - blood sugar diagnostic (AptoTOUCH VERIO) test strip USE ONE STRIP TO CHECK GLUCOSE ONCE DAILY - ketoconazole (NIZORAL) 2 % shampoo Apply 1 application to affected area once daily as needed. - acyclovir (ZOVIRAX) 200 mg capsule Take 2 capsules by mouth twice daily. (suppressive therapy) (Patient not taking: Reported on 12/02/2021 ) - Blood-Glucose Meter (AptoTOUCH VERIO SYSTEM) misc Use as directed. No current facility-administered medications on file as of 12/13/2021. I have interviewed and examined the patient. I have reviewed the medical record and/or the pre-anesthesia evaluation, pertinent labs, and test results. This contains updated information obtained within 48 hours of Surgery/Procedure. SIGNATURE: Wolfgang Carney MD PATIENT NAME: Temo Garrison DATE: December 13, 2021 TIME: 10:09 AM CSN: [id number] Normal [facility] HISTORY PHYSICALon 2 HISTORY PHYSICAL HNO ID: [id number] Author: Smith Burton MD Service: General Surgery Author Type: [...] mucosa in the upper third of the ?eso phagus.? ? Colonoscopy?Impression:? - The examined portion of the ileum was normal. ?Bio psied. ?- The entire examined colon is normal. Biopsied. ?- Diverticulosis in the sigmoid colon. ?- The distal rectum and anal verge are normal on ?ret roflexion view. ? FINAL DIAGNOSIS 1. Distal esophagus, [...] night. ? He is seeing someone in [place] orth[facility] because a steel wire in his [...] MEDICAL HISTORY (more content not included)... Normal [facility] SURGICAL PATHOLOGYon 022 CASE REPORT Normal [facility] Comment on above: Order Comment: Speci men Type: TISSUE SPECIMEN Ordering Facility: [facility] Address: [address] [place] [address] Result Comment: Surg ica Pathology Report Case: [id number] Authorizing Provider: Smith Burton MD Collected: 12/13/2021 11:25 AM Ordering Location: [facility]oscopy Received: 12/13/2021 01:42 PM Pathologist: Jose Alfredo Mcguire MD Specimens: A) - ANTRUM (STOMACH) BIOPSY B) - ESOPHAGUS BIOPSY, @40cm C) - ESOPHAGUS BIOPSY, @38cm Performed By: #### S #### [facility] CLIA [id number] [address] [place] [address] OF [facility] CLIA [id number] [address] [place], [place] [id number] [place] [address] OF [facility] CLINICAL HISTORY 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 [facility] Comment on above: Order Comment: Speci isabel Type: TISSUE SPECIMEN Ordering Facility: [facility] Address: [address] [place] [address] Performed By: #### S #### [facility] CLIA [id number] [address] [place] [address] [facility] CLIA [id number] [address] [place], [place] [id number] [place] [address] FINAL DIAGNOSIS [facility] Comment on above: Order Comment: Spec men Type: TISSUE SPECIMEN Ordering Facility: [facility] Address: [address] [place] [address] Result Comment: A. A ntrum, biopsy: - Antral mucosa with foveolar hyperplasia and minimal chronic inflammation; no evidence of H. pylori. B. Esophagus, biopsy: - Fundic mucosa with minimal chronic inflammation; no evidence of intestinal metaplasia or dysplasia. C. Esophagus, biopsy: Inflamed squamous and cardiac-type mucosa with focal intestinal metaplasia; negative for dysplasia. Performed By: #### S #### [facility] CLIA [id number] [address] [place], [place] [address]NA [facility] CLIA [id number] [address] OF [facility] FINAL PERFORMING LAB [facility] Comment on above: Order Comment: Speci men Type: TISSUE SPECIMEN Ordering Facility: [facility] Address: [address] [place], [place] [id number] Result Comment: Diag nostic interpretation performed at [facility], [address], [place] [address] CLIA# [id number] Print Binding And Finishing Worker: Amairani Clark M.D. Performed By: #### S #### [facility] CLIA [id number] [address] [place] [address] [facility] CLIA [id number] 1000 [place] [id number] [place]OSS DES[place] Normal [facility] Comment on above: Order Comment: Speci men Type: TISSUE SPECIMEN Ordering Facility: [facility] Address: [address] [place] [id number] Result Comment: A. A NTRUM (STOMACH) BIOPSY. [...] 0.2 cm. Totally submitted in one cassette. JTS December 13, 2021 8:05 PM Gross examination performed at [facility], [address] [place] [address] Performed By: #### S #### [facility] CLIA [id number] [address] [place] [address] [place] [id number] [facility] CLIA [id number] [address] Suzie 12-02-2021 LIDA Telephone (KESHIA) -------- TEMO GARRISON ([id number]) 1940 M Date Time Provider Department 12/02/21 ROE COOK During your visit today, we recorded the following information about you: Roe Cook APRN.CNP 12/02/2021 12:23 PM Signed Patient seen at [facility] 12/02 for upcoming EGD on 12/13 with . 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 Does patient need to hold this for 3 days prior to surgery? Roe Cook APRN.RN CARDIOVASCULAR ICU 12/02/2021 3:50 PM Signed Please call and relay message below to patient. Thanks! Roe Cook APRN.RN CARDIOVASCULAR ICU Smith Burton MD You 21 minutes ago (3:27 [...] Date Reviewed: 12/02/2021 Reviewed by: Roe Cook APRN.RN CARDIOVASCULAR ICU - Fully Assessed Reason for Visit: Patient [...] by mouth daily at bedtime. - lancets (AptoTOUCH DELScholarPRO LANCETS) 30 gauge misc Use as directed [...] mouth once daily. - blood sugar diagnostic (AptoTOUCH VERIO) test strip USE ONE STRIP TO [...] twice daily. (suppressive therapy) - Blood-Glucose Meter (AptoTOUCH VERIO SYSTEM) misc Use as directed. 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 Normal [facility] HISTORY PHYSICALon HISTORY PHYSICAL HNO ID: [id number] Author: Roe Cook APRN.RN CARDIOVASCULAR ICU Service: ? Author Type: Nurse Practitioner Type: [...] of hemorrhage) - DVT (deep venous thrombosis) ([facility]) 08/06/2020 - Essential tremor - External hemorrhoids [...] complication, without long-term current use of insulin ([facility]) 06/07/[address] 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 Normal [facility] Tobacco Screening.on Fall risk assessment a) No falls within the last year [facility] DO Work Phone: Tobacco use status CPHS b) No M P-[facility] 400 DO Work Phone: ARTERIAL BLOOD GASon 021 BASE EXCESS-BLOOD 6.1 mmol/L High -2.0 - 3.0 [facility] Comment on above: Performed By: #### B LGA1 #### [address] [address] BICARB, CALCULATED 29.6 mmol/L High 22.0 - 26.0 [facility] Comment on above: Performed By: #### B LGA1 #### [place] [address] FIO2 21 % Normal [facility] Comment on above: Performed By: #### B LGA1 #### [place] [id number] Oxygen (Bld) [Partial pressure] 93 mm[Hg] Normal 85 - 95 [facility] Comment on above: Performed By: #### B LGA1 #### [place] [address] PCO2 38 mmHg Normal 38 - 42 [facility] Comment on above: Performed By: #### Gianni LGA1 #### [place] [address] pH (Bld) 7.50 [pH] High 7.38 - 7.42 [facility] Comment on above: Performed By: #### B LGA1 #### [place] [address] SO2 99 % Normal 94 - 100 [facility] Comment on above: Performed By: #### B LGA1 #### [place] [id number] COOX PANEL, ARTERIALon 09-28 CO HGB 1.6 % Abnormal [facility] Comment on above: Result Comment: REF VALUES NONSMOKERS 0.5-1.5% SMOKERS 0.5-10.0% Performed By: #### C OOXA #### [address] [address] DEOXY HGB 1.5 % Normal 0.0 - 5.0 [facility] Comment on above: Performed By: #### C OOXA #### [address] [address] Hemoglobin (Bld) [Mass/Vol] 15.0 g/dL Normal 13.5 - 17.5 [facility] Comment on above: Performed By: #### C OOXA #### [address] [address] MET HGB 0.6 % Normal 0.0 - 1.5 [facility] Comment on above: Performed By: #### C OOXA #### [address] [address] OXY HGB 96.3 % Normal 94.0 - 98.0 [facility] Comment on above: Performed By: #### C OOXA #### [address] [address] Laboratory - Chemistry and C hemistry - challengeon 09-28-2021 Carboxyhemoglobin (BldA) [Mass fraction] 1.6 % Abnormal -[facility]mon ar y [facility] 400 DO Work Phone: Comment on above: REF VALUESNONSMOKERS 0.5-1.5%SMOKERS 0.5-10.0% CO2 (Bld) [Partial pressure] 38 mm[Hg] 38 - 42 -[facility] 400 DO Work Phone: HCO3 (Bld) [Moles/Vol] 29.6 mmol/L above hig h threshold See Below [facility] 400 DO Work Phone: Comment on above: Reference Range: 22. 0 - 26.0 Methemoglobin (BldA) [Mass fraction] 0.6 % 0.0 - 1.5 [facility] 400 DO Work Phone: Oxygen (Bld) [Partial pressure] 93 mm[Hg] 85 - 95 [facility] 400 DO Work Phone: Oxyhemoglobin (BldA) [Mass fraction] 96.3 % See Below -[facility] 400 DO Work [...] Hemoglobin (Bld) [Mass/Vol] 15.0 g/dL See Below -[facility] 400 DO Work Phone: Comment on above: Reference Range: 13. 5 - 17.5 No Panel Informationon 09-28 Inhaled oxygen concentration 21 % [facility] DO Work Phone: 6.1 mmol/L above high threshold -2.0 - 3.0 -[facility] [facility] DO Work Phone: 99 % 94 - 100 -[facility] 400 DO Work Phone: Coronavirus 2019 RNA by PCR, Screening Asymptomticon 09-25-2021 Coronavirus 2019 RNA by PCR, Screening Asymptomtic Not detected Normal See Below -[facility] 400 DO Work [...] make patient management decisions.Fact sheet for providers: https://www.fda.gov/media/979734/downloadFact sheet for patients: https://www.fda.gov/media/855746/downloadThis test has received FDA Emergency Use Authorization (EUA) and has been verified by [facility] ([facility]). This test is only authorized for the duration of time that circumstances exist to justify the authorization of the emergency use of in vitro diagnostic tests for the detection of SARS-CoV-2 virus and/or diagnosis of COVID-19 infection under section 564(b)(1) of the Act, 21 U.S.C. 360bbb-3(b)(1), unless the authorization is terminated or revoked sooner. [facility] is certified under CLIA-88 as qualified to perform high complexity testing. Testing is performed in the [facility] laboratories located at [address] [place] [address]. Tobacco Screening.on Fall risk assessment b) One or more fall s in the last year [facility] [address] DO Work Phone: Tobacco use status CP b) No M P-[facility] 400 DO Work Phone: Tobacco Screening.on Fall risk assessment a) No falls within the last year MP-[facility] [facility]ology[facility] Work Phone: Tobacco use status CP b) No M P-[place]tolaryn gology-[place] Work Phone: METHYLMALONIC ACIDon 021 METHYLMALONIC ACID 170 nmol/L Normal 0-378 [facility] Comment on above: Result Comment: This test was developed and its performance characteristics determined by [facility]. It has not been cleared or approved by the Food and Drug Administration. Performed By: #### M MA #### [facility] [place], [place] [id number] TRIIODOTHYRONINEon 1 TRIIODOTHYRONINE 88 ng/dL Normal 60 - 200 [facility] Comment on above: Performed By: #### T 3 #### [facility] [id number] [place] [address]. [place] [address] CBC AND DIFFERENTIALon 07-22 Basophils (Bld) [#/Vol] 0.10 10*3/uL Normal 0.00 - 0.[address] [facility] Comment on above: Performed By: #### C BCDF #### [address] [address] Basophils/100 WBC (Bld) 0.7 % Normal 0.0 - 2.[address] [facility] Comment on above: Performed By: #### C BCDF #### [address] [address] Eosinophils (Bld) [#/Vol] 0.10 10*3/uL Normal 0.00 - 0.40 [facility] Comment on above: Performed By: #### C BCDF #### [address] [address] Eosinophils/100 WBC (Bld) 2.0 % Normal 0.0 - 6.0 [facility] Comment on above: Performed By: #### C BCDF #### [address] [address] Erythrocyte distribution width (RBC) [Ratio] 14.0 % Normal 11.5 - 14.5 [facility] Comment on above: Performed By: #### C BCDF #### [address] [address] Hematocrit (Bld) [Volume fraction] 42.1 % Normal 41.0 - 52.0 [facility] Comment on above: Performed By: #### C BCDF #### [address] [address] Hemoglobin (Bld) [Mass/Vol] 13.8 g/dL Normal 13.5 - 17.5 [facility] Comment on above: Performed By: #### C BCDF #### [address] [address] Lymphocytes (Bld) [#/Vol] 1.60 10*3/uL Normal 0.80 - 3.00 [facility] Comment on above: Performed By: #### C BCDF #### [address] [address] Lymphocytes/100 WBC (Bld) 22.4 % Normal 13.0 - 44.0 [facility] Comment on above: Performed By: #### C BCDF #### [address] [address] MCHC (RBC) [Mass/Vol] 32.7 g/dL Normal 32.0 - 36.0 [facility] Comment on above: Performed By: #### C BCDF #### [address] [address] MCV (RBC) [Entitic vol] 101 fL High 80 - [address] [facility] Comment on above: Performed By: #### C BCDF #### [address] [address] Monocytes (Bld) [#/Vol] 0.60 10*3/uL Normal 0.05 - 0.[address] [facility] Comment on above: Performed By: #### C BCDF #### [address] [address] Monocytes/100 WBC (Bld) 7.6 % Normal 2.0 - 10.[address] [facility] Comment on above: Performed By: #### C BCDF #### [address] [address] Neutrophils (Bld) [#/Vol] 4.90 10*3/uL Normal 1.60 - 5.50 [facility] Comment on above: Result Comment: Perc ent differential counts (%) should be interpreted in the context of the absolute cell counts (cells/L). Performed By: #### C BCDF #### [address] [address] Neutrophils/100 WBC (Bld) 67.3 % Normal 40.0 - 80.0 [facility] Comment on above: Performed By: #### C BCDF #### [address] [address] NUCLEATED RBC 0.1 /[address] [facility] Comment on above: Performed By: #### C BCDF #### [address] [place] [address] Platelets (Bld) [#/Vol] 223 10*3/uL Normal 150 - 450 [facility] Comment on above: Performed By: #### C BCDF #### [address] [address] RBC 4.16 x10E12/L Low 4.50 - 5.90 [facility] Comment on above: Performed By: #### C BCDF #### [address] [address] WBC (Bld) [#/Vol] 7.2 10*3/uL Normal 4.4 - 11.3 [facility] Comment on above: Performed By: #### C BCDF #### [address] [address] COMPREHENSIVE PANELon 2020 ALP [Catalytic activity/Vol] 68 U/L Normal 33 - 136 [facility] Comment on above: Performed By: #### C MP #### [address] [address] Albumin [Mass/Vol] 3.8 g/dL Normal 3.4 - 5.0 [facility] Comment on above: Performed By: #### C MP #### [address] [address] ALT [Catalytic activity/Vol] 21 U/L Normal 10 - 52 [facility] Comment on above: Result Comment: Page ents treated with Sulfasalazine may generate falsely decreased results for ALT. Performed By: #### C MP #### [address] [address] Anion gap [Moles/Vol] 10 mmol/L Normal 10 - 20 [facility] Comment on above: Performed By: #### C MP #### [address] [address] AST [Catalytic activity/Vol] 19 U/L Normal 9 - 39 [facility] Comment on above: Performed By: #### C MP #### [address] [address] Bilirubin [Mass/Vol] 0.5 mg/dL Normal 0.0 - 1.2 [facility] Comment on above: Performed By: #### C MP #### [address] [address] Calcium [Mass/Vol] 8.7 mg/dL Normal 8.6 - 10.3 [facility] Comment on above: Performed By: #### C MP #### [address] [address] Chloride [Moles/Vol] 104 mmol/L Normal 98 - 107 [facility] Comment on above: Performed By: #### C MP #### [address] [address] Creatinine [Mass/Vol] 1.74 mg/dL High 0.50 - 1.30 [facility] Comment on above: Performed By: #### C MP #### [address] [address] GFR- AM. 46 mL/min/1.73m2 Abnormal >60 [facility] Comment on above: Result Comment: CALC ULATIONS OF ESTIMATED GFR ARE PERFORMED USING THE MDRD STUDY EQUATION FOR THE IDMS-TRACEABLE CREATININE METHODS. CLIN CHEM 2007;53:766-72 Performed By: #### C MP #### [address] [address] GFR-NON AM. 38 mL/min/1.73m2 Abnormal >60 [facility] Comment on above: Performed By: #### C MP #### [address] [address] Glucose [Mass/Vol] 136 mg/dL High 74 - 99 [facility] Comment on above: Performed By: #### C MP #### [address] [address] HCO3 (Bld) [Moles/Vol] 29 mmol/L Normal 21 - 32 [facility] Comment on above: Performed By: #### C MP #### [address] [address] Potassium [Moles/Vol] 4.3 mmol/L Normal 3.5 - 5.3 [facility] Comment on above: Performed By: #### C MP #### [place] [address] [place] [address] Protein [Mass/Vol] 6.2 g/dL Low 6.4 - 8.2 [facility] Comment on above: Performed By: #### C MP #### [address] [address] Sodium [Moles/Vol] 139 mmol/L Normal 136 - 145 [facility] Comment on above: Performed By: #### C MP #### [address] [address] Urea nitrogen [Mass/Vol] 25 mg/dL High 6 - 23 [facility] Comment on above: Performed By: #### C MP #### [address] [address] Complete Blood Count + Diffe rentialon 07-22-2021 Basophils/100 WBC (Bld) 0.7 % 0.0 - 2.0 M [facility] [address] Work Phone: Erythrocyte distribution width (RBC) [Ratio] 14.0 % See Below [facility] [address] Work Phone: Comment on above: Reference Range: 11. 5 - 14.5 Hematocrit (Bld) [Volume fraction] 42.1 % See Below [facility] [address] Work Phone: Comment on above: Reference Range: 41. 0 - 52.0 Hemoglobin (Bld) [Mass/Vol] 13.8 g/dL See Below [facility] [address] Work Phone: Comment on above: Reference Range: 13. 5 - 17.5 Lymphocytes/100 WBC (Bld) 22.4 % See Below [facility] [address] Work Phone: Comment on above: Reference Range: 13. 0 - 44.0 MCHC (RBC) [Mass/Vol] 32.7 g/dL See Below MP- [facility]rolog [facility] Work Phone: Comment on above: Reference Range: 32. 0 - 36.0 MCV (RBC) [Entitic vol] 101 fL above hi gh threshold 80 - 100 [facility] Work Phone: Monocytes/100 WBC (Bld) 7.6 % 2.0 - 10.0 M [facility] Work Phone: Neutrophils/100 WBC (Bld) 67.3 % See Below [facility] [address] Work Phone: Comment on above: Reference Range: 40. 0 - 80.0 Platelets (Bld) [#/Vol] 223 10*3/uL 150 - 450 [facility] Work Phone: RBC (Bld) [#/Vol] 4.16 {x10E12/L} below low threshold See Below [facility] Work Phone: Comment on above: Reference Range: 4.5 0 - 5.90 WBC (Bld) [#/Vol] 7.2 10*3/uL 4.4 - 11.3 MP-[facility] ro[facility] y-[place] [address] Work Phone: Complete Blood Count + Differential 0.10 {x10E9/L} See Below [facility] Work Phone: Comment on above: Reference Range: 0.0 0 - 0.10 Reference Range: 0.0 0 - 0.40 Complete Blood Count + Differential 0.60 {x10E9/L} See Below [facility] [address] Work Phone: Comment on above: Reference Range: 0.0 5 - 0.80 Complete Blood Count + Differential 1.60 {x10E9/L} See Below [facility] [address] Work Phone: Comment on above: Reference Range: 0.8 0 - 3.00 Complete Blood Count + Differential 4.90 {x10E9/L} See Below [facility] [address] Work Phone: Comment on above: Reference Range: 1.6 0 - 5.50 Percent differential counts (%) should be interpreted in the context of the absolute cell counts (cells/L). Complete Blood Count + Differential 2.0 % 0.0 - 6.0 [facility] Work Phone: Complete Blood Count + Differential 0.1 {/100_WBC} [facility] Work Phone: FOLATE, SERUMon 07-22-2021 Folate [Mass/Vol] 9.6 ng/mL Normal >5.0 [facility] Comment on above: Result Comment: Low <3.4 Borderline 3.4-5.0 Normal >5.0 . Patients receiving more than 5 mg/day of biotin may have interference in test results. A sample should be taken no sooner than eight hours after previous dose. Contact the testing laboratory for additional information. Performed By: #### F JLUISA2 #### [place] [address] Folate, Serumon 07-22-2021 Folate [Mass/Vol] 9.6 ng/mL >5.0 [facility] Work Phone: Comment on above: Low <3.4Borderline 3 .4-5.0Normal >5.0. Patients receiving more than 5 mg/day of biotin may have interference in test results. A sample should be taken no sooner than eight hours after previous dose. Contact the testing laboratory for additional information. IRON + TIBCon 07-22-2021 % SATURATION 51 % High 25 - 45 [facility] Comment on above: Performed By: #### I RONT #### [place] [id number] Iron [Mass/Vol] 132 ug/dL Normal 35 - 150 [facility] Comment on above: Performed By: #### I RONT #### [place] [id number] TIBC 258 ug/dL Normal 240 - 445 [facility] Comment on above: Performed By: #### I RONT #### [place] [id number] Laboratory - Chemistry and C hemistry - challengeon 07-22-2021 Albumin BCP dye [Mass/Vol] 3.8 g/dL 3.4 - 5.0 [facility] [address] Work Phone: ALP [Catalytic activity/Vol] 68 U/L 33 - 136 [facility] [address] Work Phone: ALT With P-5'-P [Catalytic activity/Vol] 21 U/L 10 - 52 [facility] [address] Work Phone: Comment on above: Patients treated wit h Sulfasalazine may generate falsely decreased results for ALT. Anion gap [Moles/Vol] 10 mmol/L 10 - 20 [facility]- [facility] [address] Work Phone: AST With P-5'-P [Catalytic activity/Vol] 19 U/L 9 - 39 [facility] [address] Work Phone: Bilirubin [Mass/Vol] 0.5 mg/dL 0.0 - 1.2 MP-[facility]rolog y-[place] [address] Work Phone: Calcium [Mass/Vol] 8.7 mg/dL 8.6 - 10.3 MP-[facility] [address] Work Phone: Chloride [Moles/Vol] 104 mmol/L 98 - 107 MP-[facility] eurolog y-[place] [address] Work Phone: CO2 [Moles/Vol] 29 mmol/L 21 - 32 [facility] [address] Work Phone: Creatinine [Mass/Vol] 1.74 mg/dL above high threshold See Below [facility] [address] Work Phone: Comment on above: Reference Range: 0.5 0 - 1.30 Glucose [Mass/Vol] 136 mg/dL above high threshold 74 - 99 [facility] [address] Work Phone: Iron [Mass/Vol] 132 ug/dL 35 - 150 [facility] [address] Work Phone: Iron binding capacity [Mass/Vol] 258 ug/dL 240 - 445 [facility] [address] Work Phone: Potassium [Moles/Vol] 4.3 mmol/L 3.5 - 5.3 [facility] [address] Work Phone: Protein [Mass/Vol] 6.2 g/dL below low threshold 6.4 - 8.2 [facility] [address] Work Phone: Sodium [Moles/Vol] 139 mmol/L 136 - 145 [facility] [address] Work Phone: Urea nitrogen [Mass/Vol] 25 mg/dL above high threshold 6 - 23 [facility] [address] Work Phone: Methylmalonic Acid, Serumon 07-22-2021 Methylmalonate [Moles/Vol] 170 nmol/L 0-378 [facility] [address] Work Phone: Comment on above: This test was develo ped and its performance characteristicsdetermined by [employer]. It has not been cleared or approvedby the Food and Drug Administration. No Panel Informationon 07-22 46 {mL/min/1.73m2} Abnormal >60 [facility] [address] Work Phone: Comment on above: CALCULATIONS OF CLEMENTINE MATED GFR ARE PERFORMED USING THE MDRD STUDY EQUATION FOR THE IDMS-TRACEABLE CREATININE METHODS. CLIN CHEM 2007;53:766-72 38 {mL/min/1.73m2} Abnormal >60 [facility] [address] Work Phone: 51 % above high threshold 25 - 45 [facility] [address] Work Phone: Triiodothyronine, Level (T3) on 07-22-2021 T3 [Mass/Vol] 88 ng/dL 60 - 200 [facility] [address] Work Phone: VITAMIN B12on 07-22-2021 Cobalamin (Vitamin B12) [Mass/Vol] 352 pg/mL Normal 211 - 911 [facility] Comment on above: Performed By: #### V TB12 #### [facility] [address] [place] [address] Vitamin B12, Serumon 021 Cobalamin (Vitamin B12) [Mass/Vol] 352 pg/mL 211 - 911 [facility] [address] Work Phone: Surgical Pathologyon 018 Surgical Pathology [id number] [facility] PATHOLOGY AND LABORATORY MEDICINE [address] [place] [address] FINAL SURGICAL PATHOLOGY REPORT NAME: BLADIMIR TEMO N [id number].O.B.: 1940 [address] [facility] NO.: [id number]: [id number] PROCEDURE 10/04/2018 DATE:SURGEON: ASIYA CASTRO MD RECEIVED 10/05/2018 DATE:ATTENDING: ASIYA CASTRO MD REPORT DATE: 10/11/2018 COPIES TO: ___DIAGNOSIS:SKIN, LEFT ANTERIOR SHOULDER, PUNCH (DIF) - NEGATIVE DIRECTIMMUNOFLUORESCENCE Comment: Direct antibody localization demonstrates no evidence ofimmunoreactivity for immunoglobulins IgG, IgM, IgA, complement C3, orfibrinogen on sections of frozen skin.CAROLANN/CAROLANN RIVAS M.D. ____CLINICAL INFORMATION: Tense bullae and erosions. Bullous pemphigoid.SPECIMEN: SKIN ____GROSS DESCRIPTION:Left anterior shoulderReceived in polytransport media is a 0.2 cm apparent punch biopsy oftan-marmolejo skin. Specimen submitted entirely for directimmunofluorescence . (1 ns, 1) MLC1/MCDDisclaimer: The following statement applies to allimmunohistochemistry, in situ hybridization, molecular studies, andimmunofluorescence testing.The use of one or more reagents in the above tests is regulated as ananalyte specific reagent (ASR). These tests were developed and theirperformance characteristics determined by the clinical laboratories [facility]. They have not been cleared by the US Food and DrugAdministration (FDA). The FDA has determined that such clearance orapproval is not necessary.All the above immunostains were performed on paraffin embedded tissue.Appropriate positive and negative controls (where applicable) were runin parallel with the patient's specimen; these controls showed expectedstaining pattern, with acceptable intensity of staining.Immunohistochem ical assays have not been validated on decalcifiedtissues. Results should be interpreted with caution given the raisedpossibility of false negativity on decalcified specimens.Professional Performing Location: [address] [address]. DEPARTMENT OF PATHOLOGY AND LABORATORY MEDICINE [place], [place] [address] Normal [facility] Pain Management Consultation Noteon 11-02-2017 Pain Management Consultation Note Normal [facility] [place] Vital Signs Date Time Vital Sign Value Performing Clinician Facility 03-04-2025 11:35-0400 Body height 172.[address] Malick Al MD Work Phone: [facility] 03-04-2025 11:35-0400 Body mass index (BMI) [Ratio] 27.4 kg/m2 Dr. Malick Al MD Work Phone: [facility] 03-04-2025 11:35-0400 Body temperature 97.1 [degF] Dr. Malick Al MD Work Phone: [facility] 03-04-2025 11:35-0400 Body weight 81.[address] Malick Al MD Work Phone: [facility] 03-04-2025 11:35-0400 Diastolic blood pressure 81 mm[Hg] Dr. Malick Al MD Work Phone: [facility] 03-04-2025 11:35-0400 Heart rate 60 /min Dr. Malick Al MD Work Phone: [facility] 03-04-2025 11:35-0400 Respiratory rate 18 /min Dr. Malick Al MD Work Phone: [facility] 03-04-2025 11:35-0400 SaO2% (BldA) [Mass fraction] 99 % Dr. Malick Al MD Work Phone: [facility] 03-04-2025 11:35-0400 Systolic blood pressure 145 mm[Hg] Dr. Malikc Al MD Work Phone: [facility] 02-22-2025 11:52-0400 Body mass index (BMI) [Ratio] 26.76 kg/m2 Cuco Marquez MD Work Phone: [facility] 02-22-2025 11:52-0400 Body temperature 99.5 [degF] Cuco Marquez MD Work Phone: [facility] 02-22-2025 11:52-0400 Body weight 79.83 kg Cuco Marquez MD Work Phone: [facility] 02-22-2025 11:52-0400 Diastolic blood pressure 74 mm[Hg] Cuco Marquez MD Work Phone: [facility] 02-22-2025 11:52-0400 Heart rate 87 /min Cuco Marquez MD Work Phone: [facility] 02-22-2025 11:52-0400 Respiratory rate 16 /min Cuco Marquez MD Work Phone: [facility] 02-22-2025 11:52-0400 SaO2% (BldA) [Mass fraction] 97 % Cuco Marquez MD Work Phone: [facility] 02-22-2025 11:52-0400 Systolic blood pressure 122 mm[Hg] Cuco Marquez MD Work Phone: [facility] 2024 11:25-0500 Body height 172.[address] Malick Al MD Work Phone: [facility] 2024 11:25-0500 Body mass index (BMI) [Ratio] 28 kg/m2 Dr. Malick Al MD Work Phone: [facility] 2024 11:25-0500 Body temperature 97.5 [degF] Dr. Malick Al MD Work Phone: [facility] 2024 11:25-0500 Body weight 83.[address] Malick Al MD Work Phone: [facility] 2024 11:25-0500 Diastolic blood pressure 57 mm[Hg] Dr. Malick Al MD Work Phone: [facility] 2024 11:25-0500 Heart rate 74 /min Dr. Malick Al MD Work Phone: [facility] 2024 11:25-0500 Respiratory rate 18 /min Dr. Malick Al MD Work Phone: [facility] 2024 11:25-0500 SaO2% (BldA) [Mass fraction] 98 % Dr. Malick Al MD Work Phone: [facility] 2024 11:25-0500 Systolic blood pressure 104 mm[Hg] Dr. Malick Al MD Work Phone: [facility] 11-07-2024 13:09-0500 Body temperature 97.8 [degF] Dr. Malick Al MD Work Phone: [facility] 11-07-2024 13:09-0500 Heart rate 64 /min Dr. Malick Al MD Work Phone: 5(753)587-634648 [place] [address] 11-07-2024 13:09-0500 Respiratory rate 15 /min Dr. Malick Al MD Work Phone: 8(570)960-871448 [place] [address] 11-07-2024 13:09-0500 SaO2% (BldA) [Mass fraction] 97 % Dr. Malick Al MD Work Phone: 9(944)837-660775 [address] 11-05-2024 10:30-0500 Body mass index (BMI) [Ratio] 28.1 kg/m2 Dr. Malick Al MD Work Phone: 8(527)133-300348 [place] [address] 11-05-2024 10:30-0500 Body temperature 98.2 [degF] Dr. Malick Al MD Work Phone: 1(379)313-489675 [address] 11-05-2024 10:30-0500 Body weight 83.[address] Malick Al MD Work Phone: 3(248)687-657148 [place] [address] 11-05-2024 10:30-0500 Diastolic blood pressure 60 mm[Hg] Dr. Malick Al MD Work Phone: 9(269)965-893148 [place] [address] 11-05-2024 10:30-0500 Heart rate 55 /min Dr. Malick Al MD Work Phone: 5(650)369-664248 [place] [address] 11-05-2024 10:30-0500 Respiratory rate 18 /min Dr. Malick Al MD Work Phone: 3(308)571-365948 [place] [address] 11-05-2024 10:30-0500 SaO2% (BldA) [Mass fraction] 100 % Dr. Malick Al MD Work Phone: 6(967)736-685348 [place] [address] 11-05-2024 10:30-0500 Systolic blood pressure 114 mm[Hg] Dr. Malick Al MD Work Phone: [facility] 10-22-2024 09:34-0500 Body mass index (BMI) [Ratio] 26.9 kg/m2 Dr. Malick Al MD Work Phone: [facility] 10-22-2024 09:34-0500 Body weight 80.[address] Malick Al MD Work Phone: [facility] 10-08-2024 11:25-0500 Body mass index (BMI) [Ratio] 26.9 kg/m2 Dr. Malick Al MD Work Phone: 2(150)653-206848 [place] [address] 10-08-2024 11:25-0500 Body temperature 98.4 [degF] Dr. Malick Al MD Work Phone: 4(164)376-880248 [place] [address] 10-08-2024 11:25-0500 Body weight 80.[address] Malick Al MD Work Phone: [facility] 10-08-2024 11:25-0500 Diastolic blood pressure 57 mm[Hg] Dr. Malick Al MD Work Phone: 1(033)104-903148 [place] [address] 10-08-2024 11:25-0500 Heart rate 55 /min Dr. Malick lA MD Work Phone: 2(529)163-625148 [place] [address] 10-08-2024 11:25-0500 Respiratory rate 16 /min Dr. Malick Al MD Work Phone: 3(611)097-736548 [place] [address] 10-08-2024 11:25-0500 Systolic blood pressure 103 mm[Hg] Dr. Malick Al MD Work Phone: [facility] 10-08-2024 08:05-0500 Body temperature 98.2 [degF] Dr. Malick Al MD Work Phone: [facility] 10-08-2024 08:05-0500 Body weight 80.[address] Malick Al MD Work Phone: [facility] 10-08-2024 08:05-0500 Diastolic blood pressure 66 mm[Hg] Dr. Malick Al MD Work Phone: [facility] 10-08-2024 08:05-0500 Heart rate 58 /min Dr. Malick Al MD Work Phone: [facility] 10-08-2024 08:05-0500 Respiratory rate 16 /min Dr. Malick Al MD Work Phone: [facility] 10-08-2024 08:05-0500 SaO2% (BldA) [Mass fraction] 98 % Dr. Malick Al MD Work Phone: 9(416)744-725548 [place] [address] 10-08-2024 08:05-0500 Systolic blood pressure 100 mm[Hg] Dr. Malick Al MD Work Phone: 8(689)893-207148 [place] [address] 09-24-2024 10:38-0500 Body mass index (BMI) [Ratio] 27.3 kg/m2 Dr. Malick Al MD Work Phone: 1(636)909-536748 [place] [address] 09-24-2024 10:38-0500 Body temperature 98.6 [degF] Dr. Malick Al MD Work Phone: 9(197)966-472775 [address] 09-24-2024 10:38-0500 Body weight 81.[address] Malick Al MD Work Phone: 4(769)290-390648 [place] [address] 09-24-2024 10:38-0500 Diastolic blood pressure 77 mm[Hg] Dr. Malick Al MD Work Phone: 8(986)713-932548 [place] [address] 09-24-2024 10:38-0500 Heart rate 60 /min Dr. Malick Al MD Work Phone: 7(561)224-775348 [place] [address] 09-24-2024 10:38-0500 Respiratory rate 18 /min Dr. Malick Al MD Work Phone: [facility] 09-24-2024 10:38-0500 SaO2% (BldA) [Mass fraction] 100 % Dr. Malick Al MD Work Phone: 8(940)970-480648 [place] [address] 09-24-2024 10:38-0500 Systolic blood pressure 122 mm[Hg] Dr. Malick Al MD Work Phone: [facility] 01-04-2024 10:10-0400 Body temperature 98.4 [degF] Dr. Malick Al Work Phone: [facility] 01-04-2024 10:10-0400 Diastolic blood pressure 73 mm[Hg] Dr. Malick Al Work Phone: [facility] 01-04-2024 10:10-0400 Heart rate 82 /min Dr. Malick Al Work Phone: [facility] 01-04-2024 10:10-0400 Respiratory rate 18 /min Dr. Malick Al Work Phone: [facility] 01-04-2024 10:10-0400 SaO2% (BldA) [Mass fraction] 97 % Dr. Malick Al Work Phone: [facility] 01-04-2024 10:10-0400 Systolic blood pressure 135 mm[Hg] Dr. Malick Al Work Phone: [facility] 01-03-2024 15:06-0400 Inhaled oxygen flow rate 2 L/min Dr. Malick Al Work Phone: [facility] 01-03-2024 09:46-0400 Body height 175.[address] Malick Al Work Phone: [facility] 01-03-2024 09:46-0400 Body mass index (BMI) [Ratio] 28.2 kg/m2 Dr. Malick Al Work Phone: [facility] 01-03-2024 09:46-0400 Body weight 86.[address] Malick Al Work Phone: [facility] 08-27-2023 12:32-0500 Body temperature 97.6 [degF] Dr. Monserrat Wilson Work Phone: [facility] 08-27-2023 12:32-0500 Diastolic blood pressure 64 mm[Hg] Dr. Monserrat Wilson Work Phone: [facility] 08-27-2023 12:32-0500 Heart rate 64 /min Dr. Monserrat Wilson Work Phone: [facility] 08-27-2023 12:32-0500 Respiratory rate 14 /min Dr. Monserrat Wilson Work Phone: [facility] 08-27-2023 12:32-0500 SaO2% (BldA) [Mass fraction] 99 % Dr. Monserrat Wilson Work Phone: [facility] 08-27-2023 12:32-0500 Systolic blood pressure 140 mm[Hg] Dr. Monserrat Wilson Work Phone: [facility] 08-27-2023 09:35-0500 Body height 175.[address] Monserrat Wilson Work Phone: [facility] 08-27-2023 09:35-0500 Body mass index (BMI) [Ratio] 26.9 kg/m2 Dr. Monserrat Wilson Work Phone: [facility] 08-27-2023 09:35-0500 Body weight 82.[address] Monserrat Wilson Work Phone: [facility] 08-12-2023 11:33-0400 Body height 172.[address] Monserrat Wilson Work Phone: [facility] 08-12-2023 11:33-0400 Body mass index (BMI) [Ratio] 27.9 kg/m2 Dr. Monserrat Wilson Work Phone: [facility] 08-12-2023 11:33-0400 Body temperature 97.1 [degF] Dr. Monserrat Wilson Work Phone: [facility] 08-12-2023 11:33-0400 Body weight 83.[address] Monserrat Wilson Work Phone: [facility] 08-12-2023 11:33-0400 Diastolic blood pressure 71 mm[Hg] Dr. Monserrat Wilson Work Phone: [facility] 08-12-2023 11:33-0400 Heart rate 76 /min Dr. Monserrat Wilsno Work Phone: [facility] 08-12-2023 11:33-0400 Respiratory rate 16 /min Dr. Monserrat Wilson Work Phone: [facility] 08-12-2023 11:33-0400 SaO2% (BldA) [Mass fraction] 91 % Dr. Monserrat Wilson Work Phone: [facility] 08-12-2023 11:33-0400 Systolic blood pressure 147 mm[Hg] Dr. Monserrat Wilson Work Phone: [facility] 08-03-2023 13:55-0400 Body mass index (BMI) [Ratio] 28.3 kg/m2 Dr. Monserrat Wilson Work Phone: [facility] 08-03-2023 13:55-0400 Body temperature 98.2 [degF] Dr. Monserrat Wilson Work Phone: [facility] 08-03-2023 13:55-0400 Body weight 84.[address] Monserrat Wilson Work Phone: [facility] 08-03-2023 13:55-0400 Diastolic blood pressure 60 mm[Hg] Dr. Monserrat Wilson Work Phone: [facility] 08-03-2023 13:55-0400 Heart rate 82 /min Dr. Monserrat Wilson Work Phone: [facility] 08-03-2023 13:55-0400 Respiratory rate 17 /min Dr. Monserrat Wilson Work Phone: [facility] 08-03-2023 13:55-0400 SaO2% (BldA) [Mass fraction] 95 % Dr. Monserrat Wilson Work Phone: [facility] 08-03-2023 13:55-0400 Systolic blood pressure 118 mm[Hg] Dr. Monserrat Wilson Work Phone: [facility] 08-01-2023 10:28-0400 Body mass index (BMI) [Ratio] 27.8 kg/m2 Dr. Monserrat Wilson Work Phone: [facility] 08-01-2023 10:28-0400 Body weight [address] Monserrat Wilson Work Phone: [facility] 08-01-2023 10:28-0400 Diastolic blood pressure 75 mm[Hg] Dr. Monserrat Wilson Work Phone: [facility] 08-01-2023 10:28-0400 Heart rate 72 /min Dr. Monserrat Wilson Work Phone: [facility] 08-01-2023 10:28-0400 Respiratory rate 16 /min Dr. Monserrat Wilson Work Phone: [facility] 08-01-2023 10:28-0400 Systolic blood pressure 140 mm[Hg] Dr. Monserrat Wilson Work Phone: [facility] 05-30-2023 12:47-0400 Body height 172.7 cm Marlon Chapin MD Work Phone: [facility] 05-30-2023 12:47-0400 Body mass index (BMI) [Ratio] 27.06 kg/m2 Marlon Chapin MD Work Phone: [facility] 05-30-2023 12:47-0400 Body temperature 96.91 [degF] Marlon Chapin MD Work Phone: [facility] 05-30-2023 12:47-0400 Body weight 80.74 kg Marlon Chapin MD Work Phone: [facility] 05-30-2023 12:47-0400 Heart rate 62 /min Marlon Chapin MD Work Phone: [facility] 05-30-2023 12:47-0400 SaO2% (BldA) [Mass fraction] 97 % Marlon Chapin MD Work Phone: [facility] 05-18-2023 15:22-0400 Body height 172.7 cm Belén Weirton PA-C Work Phone: [facility] 05-18-2023 15:22-0400 Body temperature 97.3 [degF] Belén Weirton PA-C Work Phone: [facility] 05-18-2023 15:22-0400 Body weight 81.65 kg Belén Weirton PA-C Work Phone: [facility] 05-18-2023 15:22-0400 Diastolic blood pressure 82 mm[Hg] Belén Weirton PA-C Work Phone: [facility] 05-18-2023 15:22-0400 Heart rate 104 /min Belén Weirton PA-C Work Phone: [facility] 05-18-2023 15:22-0400 SaO2% (BldA) [Mass fraction] 99 % Belén Dolores PA-C Work Phone: [facility] 05-18-2023 15:22-0400 Systolic blood pressure 136 mm[Hg] Belén Dolores PA-C Work Phone: [facility] 02-27-2023 15:01-0400 Diastolic blood pressure 83 mm[Hg] Monserrat Wilson Work Phone: [facility] [id number] DO Work Phone: 02-27-2023 15:01-0400 Heart rate 84 /min Monserrat Wilson Work Phone: [facility] [id number] DO Work Phone: 02-27-2023 15:01-0400 Respiratory rate 18 /min Monserrat Tysonel Work Phone: [facility] [id number] DO Work Phone: 02-27-2023 15:01-0400 Systolic blood pressure 124 mm[Hg] Monserrat Wilson Work Phone: [facility] [id number] DO Work Phone: 01-02-2023 10:58-0400 Body height 172.[address] Monserrat Wilson Work Phone: [facility] 01-02-2023 10:58-0400 Body mass index (BMI) [Ratio] 28.1 kg/m2 Dr. Monserrat Wilson Work Phone: [facility] 01-02-2023 10:58-0400 Body weight 83.[address] Monserrat Wilson Work Phone: [facility] 01-02-2023 10:58-0400 Diastolic blood pressure 84 mm[Hg] Dr. Monserrat Wilson Work Phone: [facility] 01-02-2023 10:58-0400 Heart rate 67 /min Dr. Monserrat Wilson Work Phone: [facility] 01-02-2023 10:58-0400 Respiratory rate 18 /min Dr. Monserrat Wilson Work Phone: [facility] 01-02-2023 10:58-0400 SaO2% (BldA) [Mass fraction] 96 % Dr. Monserrat Wilson Work Phone: [facility] 01-02-2023 10:58-0400 Systolic blood pressure 137 mm[Hg] Dr. Monserrat Wilson Work Phone: [facility] 11-23-2022 10:17-0500 Body height 172.[address] Monserrat Wilson Work Phone: [facility] 11-23-2022 10:17-0500 Body mass index (BMI) [Ratio] 26.4 kg/m2 Dr. Monserrat Wilson Work Phone: [facility] 11-23-2022 10:17-0500 Body temperature 98.2 [degF] Dr. Monserrat Wilson Work Phone: [facility] 11-23-2022 10:17-0500 Body weight 78.[address] Monserrat Wilson Work Phone: [facility] 11-23-2022 10:17-0500 Diastolic blood pressure 74 mm[Hg] Dr. Monserrat Wilson Work Phone: [facility] 11-23-2022 10:17-0500 Heart rate 84 /min Dr. Monserrat Wilson Work Phone: [facility] 11-23-2022 10:17-0500 Respiratory rate 16 /min Dr. Monserrat Wilson Work Phone: [facility] 11-23-2022 10:17-0500 SaO2% (BldA) [Mass fraction] 99 % Dr. Monserrat Wilson Work Phone: [facility] 11-23-2022 10:17-0500 Systolic blood pressure 118 mm[Hg] Dr. Monserrat Wilson Work Phone: [facility] 11-21-2022 15:02-0500 Body height 173.99 cm Monserrat Wilson Work Phone: [facility] 2300 Work Phone: 11-21-2022 15:02-0500 Body mass index (BMI) [Ratio] 25.92 kg/m2 Monserrat Wilson Work Phone: [facility] Work Phone: 11-21-2022 15:02-0500 Body surface area Derived from formula 1.93 m2 Monserrat America Steve Work Phone: [facility] Work Phone: 11-21-2022 15:02-0500 Body weight 78.47 kg Monserrat Wilson Work Phone: [facility] Work Phone: 11-21-2022 15:02-0500 Diastolic blood pressure 69 mm[Hg] Monserrat America Steve Work Phone: [facility] Work Phone: 11-21-2022 15:02-0500 Heart rate 92 /min Monserrat Wilson Work Phone: [facility] Work Phone: 11-21-2022 15:02-0500 Respiratory rate 18 /min Monserrat Wilson Work Phone: [facility] Work Phone: 11-21-2022 15:02-0500 SaO2% (BldA) [Mass fraction] 98 % Monserratvenecia Wilson Work Phone: [facility] Work Phone: 11-21-2022 15:02-0500 Systolic blood pressure 119 mm[Hg] Monserrat Cross Steve Work Phone: [facility] Work Phone: 09-06-2022 10:35-0500 Body height 172.[address] Monserrat Wilson Work Phone: [facility] 09-06-2022 10:35-0500 Body mass index (BMI) [Ratio] 27.5 kg/m2 Dr. Monserrat Wilson Work Phone: [facility] 09-06-2022 10:35-0500 Body weight 82.[address] Monserrat Wilson Work Phone: [facility] 09-06-2022 10:35-0500 Diastolic blood pressure 79 mm[Hg] Dr. Monserrat Wilson Work Phone: [facility] 09-06-2022 10:35-0500 Heart rate 77 /min Dr. Monserrat Wilson Work Phone: [facility] 09-06-2022 10:35-0500 Respiratory rate 16 /min Dr. Monserrat Wilson Work Phone: [facility] 09-06-2022 10:35-0500 Systolic blood pressure 133 mm[Hg] Dr. Monserrat Wilson Work Phone: [facility] 07-28-2022 10:32-0400 Body height 172.[address] Monserrat Wilson Work Phone: [facility] Work Phone: 07-28-2022 10:32-0400 Body mass index (BMI) [Ratio] 27.6 kg/m2 Dr. Monserrat Wilson Work Phone: [facility] 07-28-2022 10:32-0400 Body weight 82.[address] Monserrat Wilson Work Phone: [facility] 07-28-2022 10:32-0400 Diastolic blood pressure 60 mm[Hg] Dr. Monserrat Wilson Work Phone: [facility] 07-28-2022 10:32-0400 Heart rate 72 /min Dr. Monserrat Wilson Work Phone: [facility] 07-28-2022 10:32-0400 Respiratory rate 18 /min Dr. Monserrat Wilson Work Phone: [facility] 07-28-2022 10:32-0400 Systolic blood pressure 132 mm[Hg] Dr. Monserrat Wilson Work Phone: [facility] 06-16-2022 16:30-0400 Diastolic blood pressure 70 mm[Hg] [facility] Work Phone: 06-16-2022 16:30-0400 Heart rate 80 /min [facility] Work Phone: 06-16-2022 16:30-0400 Respiratory rate 16 /min [facility] Work Phone: 06-16-2022 16:30-0400 SaO2% (BldA) [Mass fraction] 98 % [facility] Work Phone: 06-16-2022 16:30-0400 Systolic blood pressure 122 mm[Hg] [facility] Work Phone: 06-16-2022 16:15-0400 Body temperature 98.1 [degF] [facility] Work Phone: 06-16-2022 12:26-0400 Body height 172.72 cm [facility] Work Phone: 06-16-2022 12:26-0400 Body mass index (BMI) [Ratio] 26 kg/m2 [facility] Work Phone: 06-16-2022 12:26-0400 Body weight 77.7 kg [facility] Work Phone: 05-12-2022 19:06-0400 Respiratory rate 18 /min [facility] Work Phone: 05-12-2022 16:00-0400 Diastolic blood pressure 93 mm[Hg] [facility] Work Phone: 05-12-2022 16:00-0400 Heart rate 110 /min [facility] Work Phone: 05-12-2022 16:00-0400 SaO2% (BldA) [Mass fraction] 97 % [facility] Work Phone: 05-12-2022 16:00-0400 Systolic blood pressure 165 mm[Hg] [facility] Work Phone: 05-12-2022 12:32-0400 Body height 172.72 cm [facility] Work Phone: 05-12-2022 12:32-0400 Body mass index (BMI) [Ratio] 26.9 kg/m2 [facility] Work Phone: 05-12-2022 12:32-0400 Body temperature 96.3 [degF] [facility] Work Phone: 05-12-2022 12:32-0400 Body weight 80.28 kg [facility] Work Phone: 05-09-2022 12:43-0400 Diastolic blood pressure 69 mm[Hg] [facility] Work Phone: 05-09-2022 12:43-0400 Heart rate 71 /min [facility] Work Phone: 05-09-2022 12:43-0400 Respiratory rate 15 /min [facility] Work Phone: 05-09-2022 12:43-0400 SaO2% (BldA) [Mass fraction] 98 % [facility] Work Phone: 05-09-2022 12:43-0400 Systolic blood pressure 134 mm[Hg] [facility] Work Phone: 05-09-2022 09:58-0400 Body height 172.72 cm [facility] Work Phone: 05-09-2022 09:58-0400 Body mass index (BMI) [Ratio] 26.3 kg/m2 [facility] Work Phone: 05-09-2022 09:58-0400 Body temperature 97.1 [degF] [facility] Work Phone: 05-09-2022 09:58-0400 Body weight 78.47 kg [facility] Work Phone: 12-16-2021 16:12-0500 Body mass index (BMI) [Ratio] 27.91 kg/m2 Monserrat [place] Steve Work Phone: [facility] A2470 DO Work Phone: 12-16-2021 16:12-0500 Body surface area Derived from formula 2.02 m2 Monserrat America Marbellael Work Phone: [facility] A2470 DO Work Phone: 12-16-2021 16:12-0500 Body weight 85.73 kg Monserrat Amreica Steve Work Phone: [facility] A2470 DO Work Phone: 12-16-2021 16:12-0500 Diastolic blood pressure 93 mm[Hg] Monserrat [place] Steve Work Phone: [facility] A2470 DO Work Phone: 12-16-2021 16:12-0500 Heart rate 83 /min Monserrat America Steve Work Phone: [facility] A2470 DO Work Phone: 12-16-2021 16:12-0500 SaO2% (BldA) [Mass fraction] 98 % Monserrat America Marbellael Work Phone: [facility] A2470 DO Work Phone: 12-16-2021 16:12-0500 Systolic blood pressure 132 mm[Hg] Monserrat Cross Miedel Work Phone: [facility] A2470 DO Work Phone: 12-16-2021 16:12-0500 0 1 Monserrat Cross Miedel Work Phone: [facility] A2470 DO Work Phone: Comment on above: [employer] 10-14-2021 09:08-0500 Body height 175.26 cm Monserrat Domingoedel Work Phone: [facility] DO Work Phone: 10-14-2021 09:08-0500 Body mass index (BMI) [Ratio] 27.26 kg/m2 Monserrat Domingoedel Work Phone: [facility] DO Work Phone: 10-14-2021 09:08-0500 Body surface area Derived from formula 2 m2 Monserrat Domingoedel Work Phone: [facility] DO Work Phone: 10-14-2021 09:08-0500 Body temperature 98.6 [degF] Monserrat Domingoedel Work Phone: [facility] [address] DO Work Phone: 10-14-2021 09:08-0500 Body weight 83.73 kg Monserrat Domingoedel Work Phone: [facility] 400 DO Work Phone: 10-14-2021 09:08-0500 Diastolic blood pressure 66 mm[Hg] Monserrat Cross Miedel Work Phone: [facility] DO Work Phone: 10-14-2021 09:08-0500 Heart rate 88 /min Monserrat Cross Miedel Work Phone: [facility] DO Work Phone: 10-14-2021 09:08-0500 SaO2% (BldA) [Mass fraction] 98 % Monserrat Wilson Work Phone: [place] [address] DO Work Phone: 10-14-2021 09:08-0500 Systolic blood pressure 132 mm[Hg] Monserrat Domingoedel Work Phone: [place] [address] DO Work Phone: 09-15-2021 09:07-0500 Body height 175.26 cm Monserrat Domingoedyaw Work Phone: [place] [address] DO Work Phone: 09-15-2021 09:07-0500 Body mass index (BMI) [Ratio] 27.5 kg/m2 Monserrat Domingoedel Work Phone: [place] [address] DO Work Phone: 09-15-2021 09:07-0500 Body surface area Derived from formula 2 m2 Monserrat Wilson Work Phone: [place] [address] DO Work Phone: 09-15-2021 09:07-0500 Body temperature 97.7 [degF] Monserrat Domingoedyaw Work Phone: [place] [address] DO Work Phone: 09-15-2021 09:07-0500 Body weight 84.48 kg Monserrat Domingoedel Work Phone: [place] [address] DO Work Phone: 09-15-2021 09:07-0500 Diastolic blood pressure 76 mm[Hg] Monserrat America Chayoedel Work Phone: [place] [address] DO Work Phone: 09-15-2021 09:07-0500 Heart rate 68 /min Monserrat Wilson [facility] DO Work Phone: 09-15-2021 09:07-0500 SaO2% (BldA) [Mass fraction] 83 % Monserrat Domingoedel Work Phone: [facility] 400 DO Work Phone: 09-15-2021 09:07-0500 Systolic blood pressure 134 mm[Hg] Monserrat Domingoedyaw Work Phone: [place] [address] DO Work Phone: 09-02-2021 10:50-0500 Body height 175.26 cm Monserrat Domingoedel Work Phone: [facility] [address] [place] Work Phone: 09-02-2021 10:50-0500 Body mass index (BMI) [Ratio] 27.58 kg/m2 Monserrat Domingoedel Work Phone: [facility] [address] [place] Work Phone: 09-02-2021 10:50-0500 Body surface area Derived from formula 2.01 m2 Monserrat Domingoedel Work Phone: [facility] [place] Work Phone: 09-02-2021 10:50-0500 Body temperature 97.5 [degF] Monserrat Domingoedel Work Phone: [facility] Work Phone: 09-02-2021 10:50-0500 Body weight 84.7 kg Monserrat Domingoedel Work Phone: [facility] Work Phone: 09-02-2021 10:50-0500 Heart rate 83 /min Monserrat Wilson Work Phone: [facility] [place] Work Phone: 09-02-2021 10:50-0500 SaO2% (BldA) [Mass fraction] 96 % Monserrat Wilson [facility] [place] Work Phone: Encounters Encounter Date Encounter Type Care Provider Facility Start: 04-01-2025 End: 04-01-[address] Phoenix Duran MD Work Phone: [facility] Work Phone: Start: 04-01-2025 End: 04-01-2025 Patient encounter procedure Debra Badillo NP-C -[facility] Work Phone: Start: 03-25-2025 End: 03-25-[address] Phoenix Duran MD Work Phone: [facility] Work Phone: Start: 03-25-2025 End: 03-25-2025 Patient encounter procedure Debra Badillo NP-C -Cat Scan [facility] Work Phone: Start: 03-25-2025 End: 03-25-2025 ambulatory Debra Badillo Facility:[facility] Start: 03-12-2025 End: 03-12-[address] Phoenix Duran MD Work Phone: [facility] Work Phone: Start: 03-12-2025 End: 03-12-2025 Patient encounter procedure Debra Badillo NETWORK CONTRACTOR-C -[facility] Work Phone: Start: 03-12-2025 End: 03-12-2025 ambulatory Debra Badillo Facility:[facility] Start: 03-07-2025 End: 03-07-2025 Patient encounter procedure Debra Badillo NETWORK CONTRACTOR-C -[facility] Work Phone: Start: 03-07-2025 End: 03-07-2025 ambulatory Debra Badillo [facility] Start: 03-04-2025 End: 03-04-[address] Galileo Ohara MD -[facility] Work Phone: Start: 03-04-2025 End: 03-04-[address] Malick Al MD Work Phone: [facility] Work Phone: Start: 02-27-2025 End: 02-27-2025 Patient encounter procedure Debra Justino NETWORK CONTRACTOR-C -[facility] Work Phone: Start: 02-27-2025 End: 02-27-[address] Malick Al MD Work Phone: [facility] Work Phone: Start: 02-27-[address] Galileo Ohara MD -[facility] Start: 02-27-2025 End: 02-27-2025 ambulatory Debra [place] Facility:[facility] Start: 02-24-2025 End: 02-24-[address] Malick Al MD Work Phone: [facility] Work Phone: Start: 02-24-2025 End: 02-24-2025 Patient encounter procedure Debra Justino NETWORK CONTRACTOR-C -[facility] Work Phone: Start: 02-24-2025 End: 02-24-2025 ambulatory Debra Badillo [place] Start: 02-24-2025 End: 02-24-2025 ambulatory Debra Badillo Facility:[facility] Start: 02-22-2025 End: 02-22-2025 Subsequent hospital visit by physician Xr [facility] Work Phone: Radiology Comment on above: Acute left ankle diana n [M25.572] Start: 02-22-2025 End: 02-22-2025 Office outpatient visit 25 minutes Cuco Marquez MD Work Phone: [facility] Comment on above: Closed nondisplaced fracture of lateral malleolus of left fibula, initial encounter (Primary Dx); Acute left ankle pain Start: 02-22-2025 End: 02-22-2025 ambulatory SELF Facility:[facility] Start: 02-17-2025 End: 02-17-[address] Malick Al MD Work Phone: [facility] Work Phone: Start: 02-17-2025 End: 02-17-[address] Phoenix Duran MD -Laboratory, [place] Work Phone: Start: 02-17-2025 End: 02-17-2025 ambulatory Phoenix Duran Facility:[facility] Start: 01-17-2025 End: 01-17-[address] Malick Al MD Work Phone: [facility] Work Phone: Start: 01-17-2025 End: 01-17-[address] Juan Peacock MD -Laboratory, [place] Work Phone: Start: 01-17-2025 End: 01-17-2025 ambulatory Phoenix Duran Facility:[facility] Start: 01-15-2025 End: 01-15-[address] Malick Al MD Work Phone: [facility] Work Phone: Start: 01-15-2025 End: 01-15-[address] Refugio Haynes MD -Laboratory, [place] Work Phone: Start: 01-15-2025 End: 01-15-2025 ambulatory [facility] Roger Facility:[facility] Start: 01-08-2025 End: 01-08-[address] Malick Al MD Work Phone: [facility] Work Phone: Start: 01-08-2025 End: 01-08-[address] Phoenix Duran MD -Radiology, [facility] Work Phone: Start: 01-08-2025 End: 01-08-2025 ambulatory Phoenix Anshul Duran Facility:[facility] Start: 01-03-2025 End: 01-03-[address] Malick Al MD Work Phone: [facility] Work Phone: Start: 01-03-2025 End: 01-03-[address] Phoenix Duran MD -Radiology, [facility] Work Phone: Start: 01-03-2025 End: 01-03-2025 ambulatory Phoenix Anshul Roger Facility:[facility] Start: 12-30-2024 Non-patient / Non-visit Dr. Markie Mixon MD -[facility] Start: 12-30-2024 End: 12-30-[address] Malick Al MD Work Phone: [facility] Work Phone: Start: 12-30-2024 End: 12-30-[address] Marlon Moraes MD -Laboratory Work Phone: Start: 12-30-2024 End: 12-30-2024 ambulatory Phoenix Anshul Duran Facility:[facility] Start: 12-26-2024 End: 12-26-[address] Malick Al MD Work Phone: [facility] Work Phone: Start: 12-26-2024 End: 12-26-[address] Phoenix Duran MD -Radiology, [facility] Work Phone: Start: 12-26-2024 End: 12-26-2024 ambulatory Phoenix Anshul Roger Facility:[facility] Start: 2024 End: 2024 Patient encounter procedure Iraida CHAN -[facility] Work Phone: Start: 2024 End: 2024 ambulatory Phoenix Anshul Gonzalez[place] Start: 12-02-[address] Galileo Ohara MD -[facility] Start: 12-01-2024 ambulatory Phoenix Chi Roger Facility:[facility] Start: 11-26-2024 End: 11-26-[address] Refugio Haynes MD -Ultrasound, [facility] Work Phone: Start: 11-26-2024 End: 11-26-2024 ambulatory [facility] Facility:[facility] Start: 11-14-2024 End: 11-14-[address] Refugio Haynes MD -Laboratory, [place] Work Phone: Start: 11-14-2024 End: 11-14-2024 ambulatory [facility] Facility:[facility] Start: 11-07-2024 End: 11-07-2024 Patient encounter procedure Apollo GARCÍA -[facility] Work Phone: Start: 11-07-2024 End: 11-07-2024 ambulatory Malick Al Facility:[facility] Start: 11-05-2024 End: 11-05-[address] Galileo Ohara MD -[facility] Work Phone: Start: 11-05-2024 End: 11-05-2024 ambulatory Malick Al Facility:[facility] Start: 10-28-2024 ambulatory Dayanara Diaz Facility :[facility] Start: 10-28-2024 Non-patient / Non-visit Dr. Markie Mixon MD -[facility] Start: 10-28-2024 End: 10-28-2024 Patient encounter procedure Dayanara Diaz PA -Cardiovascular Services Work Phone: Start: 10-28-2024 End: 10-28-2024 ambulatory Dayanara Diaz Facility:[facility] Start: 10-22-2024 End: 10-22-2024 Patient encounter procedure Mercy GARCÍA -[facility] Work Phone: Start: 10-22-2024 End: 10-22-2024 ambulatory Malick Al Facility:[facility] Start: 10-08-2024 End: 10-08-[address] Galileo Ohara MD -[facility] Work Phone: Start: 10-08-2024 End: 10-08-2024 ambulatory Galileo Ohara Facility:[facility] Start: 10-08-2024 End: 10-08-2024 Patient encounter procedure Verónica GARCÍA -[facility] Work Phone: Start: 10-08-2024 End: 10-08-2024 ambulatory Verónica Huber Facility:[facility] Start: 10-04-2024 ambulatory Verónica Huber [facility] Start: 10-04-2024 Non-patient / Non-visit Dr. Markie Mixon MD -[facility] Start: 10-04-2024 End: 10-04-2024 Patient encounter procedure Verónica GARCÍA -Cardiovascular Services Work Phone: Start: 10-04-2024 End: 10-04-2024 ambulatory Verónica Huber Facility:[facility] Start: 09-24-2024 End: 09-24-[address] Galileo Ohara MD -[facility] Work Phone: Start: 09-24-2024 End: 09-24-2024 ambulatory Malick Al Facility:[facility] Start: 09-06-2024 End: 09-06-2024 ambulatory Verónica Huber Facility:[facility] Start: 09-05-2024 End: 09-05-2024 ambulatory Malick Al Facility:[facility] Start: 08-28-2024 ambulatory Malick Al Facilit y:[facility] Start: 08-28-2024 End: 08-28-2024 ambulatory Malick Al Facility:[facility] Start: 08-28-2024 End: 08-28-2024 ambulatory Malick Al Facility:[facility] Start: 08-25-2024 ambulatory Malick Al Facilit y:[facility] Start: 08-21-2024 End: 08-21-2024 ambulatory Malick Al Facility:[facility] Start: 08-14-2024 ambulatory Markie Mixon [facility] Start: 08-13-2024 End: 08-14-2024 ambulatory Malick Al Facility:[facility] Start: 08-09-2024 End: 08-09-2024 ambulatory Malick Al Facility:[facility] Start: 08-08-2024 Encounter for other preprocedural examination Jose [facility] Start: 08-05-2024 End: 08-08-2024 ambulatory Joseph tillman Chavez Facility:[facility] Start: 08-05-2024 End: 08-05-2024 ambulatory Malick Al Facility:[facility] Start: 07-29-2024 End: 07-31-2024 ambulatory Joseph Wick Facility:[facility] Start: 07-19-2024 ambulatory Markie Mixon [facility] Start: 07-19-2024 End: 07-19-2024 ambulatory Malick Al Facility:[facility] Start: 07-12-2024 End: 07-12-2024 ambulatory Malick Al Facility:[facility] Start: 06-25-[address] Malick Al MD Work Phone: [facility] Start: 06-25-2024 End: 06-25-2024 ambulatory Malick Al [place] Start: 06-21-2024 End: 06-21-2024 ambulatory Malick Al Facility:[facility] Start: 04-16-2024 ambulatory Malick Al Facilit y:[facility] Start: 01-03-2024 End: 01-04-2024 Evaluation and management of inpatient Dr. Malick Al Work Phone: [facility]-Medical Surgical 3 Work Phone: Start: 01-03-2024 End: 01-04-[address] Malick Al Work Phone: [facility] Work Phone: Start: 12-01-2023 End: 12-01-[address] Malick Al Work Phone: [facility] Work Phone: Start: 11-22-2023 End: 11-22-[address] Monserrat Wilson Work Phone: [facility] Work Phone: Start: 11-22-2023 End: 11-22-[address] Monserrat Wilson Work Phone: [facility]-Cat Scan, [facility] Work Phone: Start: 11-20-2023 Non-patient / Non-visit Dr. Monserrat Wilson Work Phone: [facility] Start: 11-20-2023 End: 11-20-[address] Monserrat Wilson Work Phone: [facility] Work Phone: Start: 11-20-2023 End: 11-20-[address] Monserrat Wilson Work Phone: [facility]-Cardiovascular Services Work Phone: Start: 11-17-2023 End: 11-17-[address] Monserrat Wilson Work Phone: [facility] Work Phone: Start: 11-17-2023 End: 11-17-[address] Monserrat Wilson Work Phone: [facility] Start: 10-12-2023 End: 10-12-[address] Monserrat Wilson Work Phone: [facility] Work Phone: Start: 10-12-2023 End: 10-12-[address] Monserrat Wilson Work Phone: [facility] Work Phone: Start: 10-04-2023 End: 10-04-2023 Subsequent hospital visit by physician [facility] Work Phone: Radiology Comment on above: Acute cough [R05.1] Start: 09-25-2023 End: 09-25-[address] Monserrat Wilson Work Phone: [facility] Work Phone: Start: 09-25-2023 End: 09-25-[address] Monserrat Wilson Work Phone: [facility]-Physical Therapy Work Phone: Start: 09-13-2023 Refill Smith schaffer MD Work Phone: General Surgery Comment on above: Refill Request Start: 09-11-[address] Delmi Wilson Work Phone: [facility]-Physical Therapy Work Phone: Start: 09-06-2023 End: 09-06-[address] Monserrat Wilson Work Phone: [facility] Work Phone: Start: 09-06-2023 End: 09-06-[address] Monserrat Wilson Work Phone: [facility] Start: 08-27-2023 Non-patient / Non-visit Dr. Monserrat Wilson Work Phone: [facility] Start: 08-27-2023 End: 08-27-2023 Emergency department patient visit Dr. Monserrat Wilson Work Phone: [facility]-Emergency Department Work Phone: Start: 08-24-2023 End: 08-24-[address] oMnserrat Wilson Work Phone: [facility], [facility] Work Phone: Start: 08-17-2023 End: 08-17-[address] Monserrat Wilson Work Phone: [facility] Work Phone: Start: 08-17-2023 End: 08-17-[address] Monserrat Wilson Work Phone: [facility] Work Phone: Start: 08-12-2023 End: 08-12-[address] Monserrat Wilson Work Phone: [facility] Work Phone: Start: 08-03-2023 End: 08-03-[address] Monserrat Wilson Work Phone: [facility] Neurology Work Phone: Start: 08-01-2023 End: 08-01-[address] Monserrat Wilson Work Phone: [facility] Work Phone: Start: 06-08-2023 End: 06-08-2023 Patient encounter procedure Smith Burton MD Work Phone: General Surgery Comment on above: Bright red blood per rectum (Primary Dx); Hemorrhoids, internal Start: 05-30-2023 ambulatory MARLON Rojas ty:[facility] Start: 05-30-2023 End: 05-30-2023 Office outpatient new 30 minutes Marlon Chapin MD Work Phone: [facility] Comment on above: Other chronic pain Start: 05-18-2023 End: 05-18-2023 Patient encounter procedure Belén Bernal PA-C Work Phone: General Surgery Comment on above: Bright red blood per rectum (Primary Dx); Hemorrhoids, internal Start: 05-16-2023 End: 05-16-[address] Monserrat Wilson Work Phone: [facility] Start: 06-27-2023 ambulatory MARLON CHAPIN Facility :[facility] Start: 02-27-2023 Current tobacco non-user cad cap copd pv dm Monserrat Wilson Work Phone: [id number] Work Phone: Start: 02-27-[address] Monserrat Wilson Facility:[id number] Start: 02-24-[address] Monserrat Wilson Work Phone: [facility] Start: 02-22-2023 End: 02-22-[address] Monserrat Wilson Work Phone: [facility] Work Phone: Start: 02-22-2023 End: 02-22-[address] Monserrat Wilson Work Phone: [facility] Start: 02-17-2023 Refill Roberto Younger i, MD Work Phone: Gastroenterology Comment on above: Refill Request Start: 02-15-2023 Telephone encounter [facility] Provider Valerie rosado Medicine Comment on above: Appointment Start: 02-13-2023 End: 02-13-[address] Monserrat Wilson Work Phone: [facility] Start: 01-02-2023 End: 01-02-[address] Monserrat Wilson Work Phone: [facility] Start: 12-27-2022 Non-patient / Non-visit Dr. Monserrat Wilson Work Phone: [facility] Start: 12-27-2022 End: 12-27-[address] Monserrat Wilson Work Phone: [facility] Work Phone: Start: 12-27-2022 End: 12-27-[address] Monserrat Wilson Work Phone: [facility]-Cardiovascular Services Start: 2022 Non-patient / Non-visit Dr. Monserrat Wilson Work Phone: [facility] Start: 2022 End: [address] Monserrat Wilson Work Phone: [facility] Work Phone: Start: 2022 End: [address] Monserrat Wilson Work Phone: [facility]-Pulmonary Services/Neurology Start: 11-23-2022 End: 11-23-[address] Monserrat Wilson Work Phone: [facility] Neurology Start: 11-21-2022 Current tobacco non-user cad cap copd pv dm Monserrat Wilson Work Phone: [facility] 2300 Work Phone: Start: 11-21-2022 ambulatory Justin Rivera y:[id number] Start: 11-01-2022 Rx Renewal Monserrat delong Work Phone: [facility]-Buypxlrxw-Vhhgf 204 Work Phone: Start: 10-28-2022 End: 10-28-[address] Monserrat Wilson Work Phone: [facility] Work Phone: Start: 10-28-2022 End: 10-28-[address] Monserrat Wilson Work Phone: [facility]-Amrik, Devika Arrieta [facility] Start: 10-17-2022 ambulatory Justin Rivera y:[facility] Start: 09-06-2022 End: 09-06-[address] Monserrat Wilson Work Phone: [facility] Start: 08-26-2022 Telephone encounter Carol Tran APRN.RN CARDIOVASCULAR ICU Work Phone: Gastroenterology Comment on above: Patient Update; Page ent Question Start: 08-23-2022 Non-patient / Non-visit Dr. Monserrat Wilson Work Phone: [facility] Start: 08-23-2022 End: 08-23-[address] Monserrat Wilson Work Phone: [facility] Work Phone: Start: 08-23-2022 End: 08-23-[address] [facility]errat [facility] Start: 08-16-2022 Non-patient / Non-visit Dr. Monserrat Wilson Work Phone: [facility] Start: 08-16-2022 End: 08-16-[address] Monserrat Wilson Work Phone: [facility] Work Phone: Start: 08-16-2022 End: 08-16-[address] Monserrat Wilson [facility] Start: 08-08-2022 End: 08-08-[address] Monserrat Wilson Work Phone: [facility] Work Phone: Start: 08-08-2022 End: 08-08-[address] Monserrat Wilson Work Phone: [facility] Start: 08-03-2022 Refill Carol Mae.RN CARDIOVASCULAR ICU Work Phone: Gastroenterology Comment on above: Refill Request Start: 07-28-2022 End: 07-28-[address] Monserrat Wilson Work Phone: [facility] Start: 07-22-2022 Non-patient / Non-visit Dr. Monserrat Wilson Work Phone: [facility] Start: 07-07-[address] Monserrat Wilson Work Phone: [facility]-Cardiovascular Services Start: 06-16-2022 End: 06-16-2022 [facility] Start: 06-16-2022 End: 06-16-2022 ambulatory [facility] Work Phone: Start: 06-03-2022 End: 06-03-2022 Subsequent hospital visit by physician Xr [facility] Work Phone: Radiology Comment on above: Lower extremity inju ry, right, initial encounter [S89.91XA] Start: 05-19-2022 End: 05-19-2022 Patient encounter procedure [facility], [facility] Start: 05-16-2022 End: 05-16-2022 Patient encounter procedure [facility]-Pulmonary Services/Neurology Start: 05-14-2022 ambulatory Wilner Stuart Work Phone: Hematology/Oncology Comment on above: Eliquis Start: 05-12-2022 ambulatory Justin Dial Facilit y:[facility] Start: 05-12-2022 End: 05-12-2022 Emergency department patient visit [facility]-Emergency Department Start: 05-09-2022 End: 05-09-2022 Emergency department patient visit [facility]-Emergency Department Start: 03-23-2022 Registered Recurring [facility]-Physical Therapy Start: 03-21-2022 ambulatory Justin Rivera y:[id number] Start: 01-05-2022 End: 01-05-2022 ambulatory Carol Tran APRN.CNP Work Phone: Gastroenterology Comment on above: History of Small's esophagus (Primary Dx) Start: 01-05-2022 End: 01-05-2022 Telemedicine consultation with patient Carol Tran APRN.RN CARDIOVASCULAR ICU Work Phone: [facility] Start: 12-16-2021 Current tobacco non-user cad cap copd pv dm Monserrat E Miedel Work Phone: [facility] [id number] DO Work Phone: Start: 11-19-2021 Telephone encounter Smith Burton MD Work Phone: General Surgery Comment on above: EGD; Procedure Follo w Up (EGD completed on 12/13/2021) Start: 10-14-2021 Office outpatient visit 15 minutes Monserrat Tysonel Work Phone: -Pulmonary Medicine-[place] [address] DO Work Phone: Start: 10-01-2021 Chart Update Monserrat Cruz l Work Phone: -[facility] Medicine-[place] [address] DO Work Phone: Start: 09-15-2021 Office consultation new/estab patient 80 min Monserrat E Miedel Work Phone: -Pulmonary Medicine-[place] [address] DO Work Phone: Start: 09-15-2021 Office outpatient ne w 60 minutes Monserrat E Miedel Work Phone: -Pulmonary Medicine-[place] [address] DO Work Phone: Start: 09-15-2021 Patient encounter procedure Monserrat E Miedel Work Phone: -Pulmonary Medicine-[place] [address] DO Work Phone: Start: 09-02-2021 Current tobacco non-user cad cap copd pv dm Monserrat E Miedel Work Phone: [facility]-Nzcizgcsmgpkij-Uxprr 205 [place] Work Phone: Start: 08-30-2021 AUDIT Monserrat Domingoede l Work Phone: UE-Fkbgtrovr-Zkpsw 204 Work Phone: Start: 08-27-2021 AUDIT Monserrat E Miede l Work Phone: [id number]-Atrwemofk-Pmitq 204 Work Phone: Start: 07-28-2021 Chart Update Monserrat E Miede l Work Phone: RG-Abkbxuwsu-Nkpky 204 Work Phone: Start: 07-23-2021 Chart Update Monserart Cross Miede l Work Phone: YR-Irrlwksme-Rtonz 204 Work Phone: Start: 07-16-2021 Phys/qhp telephone evaluation 11-20 min Monserrat Wilson Work Phone: CE-Yvhvnsvvd-Ctqds 204 Work Phone: Start: 06-11-2021 AUDIT Monserrat Domingoede l Work Phone: VM-Iziqphkjy-Yghsl 204 Work Phone: Start: 03-08-2021 AUDIT Monserrat Domingoede l Work Phone: IJ-Teubgdvwd-Cadmv 204 Work Phone: Start: 12-07-2020 End: 12-07-2020 Patient encounter procedure [facility] Start: 11-12-2020 End: 11-12-2020 Patient encounter procedure [facility] Start: 10-04-2018 Patient encounter procedure [facility] Start: 12-19-2017 Ambulatory [facility] Facility :[facility] Start: 10-30-2017 Ambulatory RHINA WALTER Fac ility:A Procedures Date Procedure Procedure Detail Performing Clinician Start: 03-25-2025 Computed tomography of abdomen and pelvis with contrast Dr. Phoenix Duran MD Work Phone: Start: 03-12-[address] Phoenix huffman MD Work Phone: Comment on above: Test Ordered: [id number] Stool CultureSalmonella/Shigella Screen Note: CB Final report Reference Range: .Result 1 Comment CB Reference Range: .No Salmonella or Shigella recovered.Campylobacter Culture Note: CB Final report Reference Range: .Result 1 Comment CB Reference Range: .No Campylobacter species isolated.E coli Shiga Toxin EIA Negative CB Reference Range: NegativePerformed at: [facility] LabAndrew Ville [id number] Director: Juan Carson PhD, Phone: [phone] Start: 03-12-2025 [address] e detection Dr[address] Phoenix Duran MD Work Phone: Start: 03-12-[address] Phoenix Duran MD Work Phone: Start: 03-12-[address] Phoenix Duran MD Work Phone: Start: 02-27-[address] Malick Al MD Work Phone: Start: 02-24-2025 Plain X-ray abdomen Dr. Malick Al MD Work Phone: Start: 02-22-2025 Radex ankle complete minimum 3 views Cuco Marquez MD Work Phone: Start: 02-17-2025 Vitamin D, 25-hydrox y measurement Dr. Malick Al MD Work Phone: Comment on above: Vitamin D StatusDefi ciency: <20 ng/mL (50nmol/L)Insufficiency: 20-30 ng/mL (50-75 nmol/L)Sufficiency: 30-100 ng/mL (75-250 nmol/L)Toxicity: >100 ng/mL (>250 nmol/L) Start: 01-15-2025 Serum inorganic phos phate measurement Dr. Malick Al MD Work Phone: Start: 01-08-2025 X-ray of lumbosacral spine Dr. Malick Al MD Work Phone: Start: 01-03-2025 Plain X-ray abdomen Dr. Malick Al MD Work Phone: Start: 12-30-2024 Plain X-ray abdomen Dr. Malick Al MD Work Phone: Start: 12-26-2024 Plain X-ray abdomen Dr. Malick Al MD Work Phone: Start: 12-26-2024 X-ray of chest, PA a nd lateral views Dr. Malick Al MD Work Phone: Start: 12-02-2024 D-dimer assay, quantitative Dr. Malick Al MD Work Phone: Comment on above: NORMAL D-Dimer level (<0.50) indicates no DVT or PE. Start: 11-26-2024 Complete ultrasound of kidneys and bladder Dr. Malick Al MD Work Phone: Start: 11-14-2024 Assay of phosphorus inorganic Dr. Malick Al MD Work Phone: Start: 11-14-2024 Hepatitis C antibody measurement Dr. Malick Al MD Work Phone: Comment on above: Non Reactive: < 0.8 Equivocal: >/= 0.8 to < 1.0 Reactive: >/= 1.0The CDC requires that a reactive/equivocal HCV antibody result be sent out for confirmation. HCV Quant by PCR testing. Start: 11-14-2024 Measurement of renal function Dr. Malick Al MD Work Phone: Comment on above: GFR Calc Start: 11-14-[address] Malick Al MD Work Phone: Start: 11-14-2024 Vitamin D, 25-hydrox y measurement Dr. Malick Al MD Work Phone: Comment on above: Vitamin D 25(OH) Sta tus Range Deficiency <20 ng/mL (50nmol/L) Insufficiency 20 - 30 ng/mL (50 - 75 nmol/L) Sufficiency 30 - 100 ng/mL (75 - 250 nmol/L) Toxicity >100 ng/mL (>250 nmol/L) Start: 10-22-2024 X-ray of lumbosacral spine Dr. Malick Al MD Work Phone: Start: 09-24-[address] Malick Al MD Work Phone: Start: 09-24-2024 Measurement of renal function Dr. Malick Al MD Work Phone: Comment on above: GFR Calc Start: 09-24-2024 Total iron binding c apacity measurement Dr. Malick Al MD Work Phone: Start: 08-23-2024 Measurement of occul t blood in stool specimen using immunoassay Dr. Malick Al MD Work Phone: Start: 08-21-2024 Assay of phosphorus inorganic Dr. Malick Al MD Work Phone: Start: 08-21-[address]24 Imm[address] reticulocyt e fraction Dr. Malick Al MD Work Phone: Start: 01-03-2024 Cysto,TUR,Prostate,O lympus (Not Applicable) Dr. Malick Al Work Phone: Start: 11-22-2023 Computed tomography of abdomen and pelvis with contrast Dr. Monserrat Wilson Work Phone: Start: 10-12-2023 X-ray of bilateral r ibs, three views without chest x-ray Dr. Monserrat Wilson Work Phone: Start: 10-04-2023 Radiologic exam chest 2 views James GARCÍA Work Phone: Start: 08-24-[address] Monserrat Wilson Work Phone: Start: 02-22-2023 CT of head without contrast Dr. Monserrat Wilson Work Phone: Start: 08-16-2022 Cardiovascular stres s test using pharmacologic stress agent Dr. Monserrat Wilson Work Phone: Start: 06-16-2022 Fluoroscopic guidance Start: 06-16-[address] Deanna Wilson Work Phone: Start: 06-16-2022 Open reduction with internal fixation Start: 06-15-2022 Plain chest X-ray Start: 06-03-2022 Radiologic examinati on tibia & fibula 2 views Joe Goodwin APRN.CNP Work Phone: Start: 05-19-2022 Diagnostic radiograp hy of abdomen Start: 05-12-2022 CT of abdomen and pe lvis with oral contrast Start: 05-09-2022 CT of chest, abdomen and pelvis without contrast Start: 10-13-2020 Sleep std airflow hr t rate&o2 sat effort unatt Monserrat Wilson Start: 07-03-2018 Adult depression scr eening assessment Smith Burton MD Work Phone: Arthroplasty of knee Monserrat Wilson Colonoscopy Monserrat Wilson Excision of lesion of skin H derik Steve Hernia repair Monserrat Wilson Hypoglossal nerve st imulator insertion Monserrat Wilson Work Phone: Insertion of therape utic device Monserrat Wilson Repair of anterior c ruciate ligament of knee joint Monserrat Wilson Plan of Treatment Date Care Activity Detail Author Start: 08-18-2029 Tetanus vaccination TETANUS [facility] Start: 08-18-2029 Urine microalbumin profile DTaP,Tdap,Td Vaccine (4 - Td or Tdap) [facility] Start: 04-22-2025 Covid-19 Vaccine ( season) Covid-19 Vaccine () [facility] Start: 04-09-2025 ambulatory Facility:[facility] Start: 03-12-2025 Procedure [facility] Start: 02-27-2025 [facility] Start: 01-17-2025 Protein measurement [facility] Start: 10-16-2024 Advance Directive Discussion Advance Directive Discussion [facility] Start: 06-16-2024 Covid-19 Vaccine () Covid-19 Vaccine () [facility] Start: 06-16-2024 Covid-19 Vaccine ( season) Covid-19 Vaccine ( season) [facility] Start: 06-16-2024 Influenza vaccination Influenz a Vaccine (#1) [facility] Start: 01-04-2024 Patient discharge [facility] Start: 01-04-2024 Removal of urinary catheter [facility] Start: 01-03-2024 Application of intermittent pneumatic compression device [facility] Start: 01-03-2024 Following clinical pathway protocol [facility] Start: 01-03-2024 Deep breathing and coughing exercises [facility] Start: 01-03-2024 Irrigation of urinar y bladder [facility] Start: 01-03-2024 Measuring intake and output [facility] Start: 01-03-2024 Patient education [facility] Start: 01-03-2024 Provision of activit y privileges [facility] Start: 01-03-2024 Taking patient vital signs [facility] Start: 01-03-2024 Vital signs measurements [facility] Start: 01-03-2024 [facility] Start: 01-03-2024 Admission procedure [facility] Start: 10-16-2023 Advance Directive Discussion Advance Directive Discussion [facility] Start: 08-27-2023 [facility] Start: 06-16-2023 Covid-19 Vaccine ( season) Covid-19 Vaccine () [facility] Start: 06-16-2023 Influenza vaccination [facility] Start: 02-24-2023 Thiamine measurement [facility] Start: 02-24-2023 Vitamin B6 measurement [facility] Start: 11-13-2022 COVID-19 VACCINE (6 - Pfizer series) COVID-19 VACCINE (6 - Pfizer series) [facility] Start: 10-16-2022 ADVANCE DIRECTIVE DISCUSSION ADVANCE DIRECTIVE DISCUSSION [facility] Start: 10-16-2022 DEPRESSION ASSESSMENT DEPRESSI ON ASSESSMENT [facility] Start: 07-28-2022 Patient referral [facility] Work Phone: Start: 06-16-2022 Patient discharge [facility] Work Phone: Start: 06-16-2022 Catheterization of vein [facility] Work Phone: Start: 06-16-2022 Elevation of affecte d extremity [facility] Work Phone: Start: 06-16-2022 Following clinical pathway protocol [facility] Work Phone: Start: 06-16-2022 Procedure discontinued [facility] Work Phone: Start: 06-16-2022 Taking patient vital signs [facility] Work Phone: Start: 06-16-2022 Vital signs measurements [facility] Work Phone: Start: 06-16-2022 [facility] Work Phone: Start: 06-16-2022 Radiography of ankle Ankle min 3 Vie ws [facility] Work Phone: Start: 06-16-2022 XR Ankle GE 3 Views [facility] Work Phone: Start: 06-16-2022 Anes open proc bones lower leg/ankle/foot nos ANESTH LOWER LEG BONE SURG [facility] Work Phone: Start: 06-16-2022 Influenza vaccination INFLUENZA (#1) [facility] Start: 06-16-2022 Injection aa&/strd sciatic nerve NJX AA&/STRD SCIATIC NERVE [facility] Work Phone: Start: 06-16-2022 Open treatment bimalleolar ankle fracture TREATMENT OF ANKLE FRACTURE [facility] Work Phone: Start: 06-16-2022 Medication education [facility] Work Phone: Start: 05-09-2022 Incentive spirometry [facility] Work Phone: Start: 05-09-2022 [facility] Work Phone: Start: 11-14-2021 COVID-19 VACCINE (4 - Booster for Pfizer series) COVID-19 VACCINE (4 - Booster for Pfizer series) [facility] Start: 11-01-2021 NPVSLEEP, Provider: Justin Dial, Status: Pen, Time: 4:00 PM NPVSLEEP, Provider: Justin Dial, Status: Pen, Time: 4:00 PM [id number] ma MAC1 205 [place] Work Phone: Start: 11-01-2021 FUVGENERAL, Provider : Malick Weber, Status: Pen, Time: 9:00 AM FUVGENERAL, Provider: Malick Weber, Status: Pen, Time: 9:00 AM -Pulmonary [facility] 400 DO Work Phone: Start: 10-16-2021 ADVANCE DIRECTIVE DISCUSSION ADVANCE DIRECTIVE DISCUSSION [facility] Start: 10-16-2021 DEPRESSION ASSESSMENT DEPRESSI ON ASSESSMENT [facility] Start: 10-14-2021 FUV, Provider: Temo Huitron, Status: Pen, Time: 9:00 AM FUV, Provider: Temo Huitron, Status: Pen, Time: 9:00 AM [facility] DO Work Phone: Start: 09-28-2021 PFT, Provider: JOSE HOLLOWAY PFT ROOM,[id number], Status: Pen, Time: 10:00 AM PFT, Provider: TIGRE PFT ROOM,[id number], Status: Pen, Time: 10:00 AM [facility] 400 DO Work Phone: Start: 09-15-2021 NPV, Provider: Temo Huitron, Status: Pen, Time: 9:00 AM NPV, Provider: Temo Huitron, Status: Pen, Time: 9:00 AM [facility] Work Phone: Start: 09-02-2021 NPV, Provider: Florina Segovia, Status: Pen, Time: 10:40 AM NPV, Provider: Florina Segovia, Status: Pen, Time: 10:40 AM [id number] 204 Work Phone: Start: 08-05-2021 NPV, Provider: Florina Segovia, Status: Pen, Time: 10:20 AM NPV, Provider: Florina Segovia, Status: Pen, Time: 10:20 AM [facility] Work Phone: Start: 06-16-2021 Influenza vaccination INFLUENZA (#1) [facility] Start: 06-01-2021 SERUM CREATININE SERUM CREATININE [facility] Start: 11-27-2020 Urine microalbumin profile DTAP,TDAP,TD (3 - Td or Tdap) [facility] Start: 10-13-2020 Sleep std airflow hr t rate&o2 sat effort unatt Home Sleep Apnea Test [id number] Work Phone: Start: 04-28-2020 Hemoglobin A1c measurement HbA1C [facility] Start: 04-28-2020 Hemoglobin A1c/Hemoglobin.total in Blood HBA1C [facility] Start: 02-28-2020 Glaucoma screening Dilated Retinal E xam [facility] Start: 02-28-2020 Hepatitis C antibody , confirmatory test DILATED RETINAL EXAM [facility] Start: 07-03-2019 Adult depression screening assessment DEPRESSION SCREENING [facility] Start: 01-25-2019 ANNUAL PCP TEAM ASSOCIATE CREATIVE DIRECTOR FRAN DISEASE VISIT ANNUAL PCP TEAM CHRONIC DISEASE VISIT [facility] Start: 12-07-2018 Hepatitis B screening URINE ALBUMIN:CREATININE RATIO [facility] Start: 09-22-2018 Hepatitis B surface antibody level LDL CHOLESTEROL [facility] Start: 06-01-2018 HEMOGLOBIN/HEMATOCRIT HEMOGLOB IN/HEMATOCRI T [facility] Start: 08-24-2017 End: 08-24-2017 Appointment Appointment [facility] Work Phone: Start: 2016 RSV Vaccine (1 - 1-d ose 75+ series) RSV Vaccine (1 - 1-dose 75+ series) [facility] Start: 2001 Hepatitis B Vaccine (1 of 3 - Risk 3-dose series) Hepatitis B Vaccine (1 of 3 - Risk 3-dose series) [facility] Start: 2001 RSV Vaccine (1 - 1-d ose 60+ series) RSV Vaccine (1 - 1-dose 60+ series) [facility] Start: 1991 SHINGRIX VACCINE (1 of 2) SHINGRIX VACCINE (1 of 2) [facility] Start: 1986 Screening for malign ant neoplasm of colon COLORECTAL CANCER SCREENING DISCUSSION [facility] Start: 1959 Anxiety Screening Anxiety Screening [facility] Start: 1959 BP CONTROLLED (<130/80) BP CON TROLLED (<130/80) [facility] Start: 1959 Depression Screening Depression Scre ening [facility] Start: 1951 3 comp foot exam completed DIABETIC FOOT EXAM [facility] Start: 1951 Diabetic foot examination Diabetic Foot Exam [facility] Start: 06-08-1942 COVID-19 VACCINE (#1) COVID-19 VACCINE (#1) [facility] CT Abdomen and Pelvi s W contrast IV [facility] Elastase.pancreatic [Presence] in Stool [facility] Fat [Mass/mass] in Stool [facility] Fat.neutral [Presenc e] in Stool [facility] NM Heart Views W str ess and W radionuclide IV [facility] Work Phone: Patient Education [facility] Work Phone: Patient referral [facility] Work Phone: Thyroglobulin antibo dy measurement [facility] Thyroperoxidase Ab [Units/volume] in Serum or Plasma [facility] Tilt table test [facility] US Carotid arteries [facility] Work Phone: US Heart [facility] Work Phone: [facility] NEGATED: Highlighted row has been ruled out! Planned Goals not documented [id number] 204 Work Phone: Immunizations Immunization Date Immunization Notes Care Provider [facility] 04-30-2024 Pneumococcal Vaccine PCV20 (Prevnar 20) Dr. Malick Al MD Work Phone: [facility] 07-14-2022 Pfizer COVID-19 Vac Bivalent 30 MCG/0.3ML Intramuscular Suspension Monserrat Wilson Work Phone: [facility] Work Phone: 07-05-2022 Fluad Quadrivalent 0 .5 ML Intramuscular Prefilled Syringe Monserrat Wilson Work Phone: [facility] Work Phone: 07-05-2022 influenza virus vacc ine, unspecified formulation Marlon Chapin MD Work Phone: [facility] 03-07-2022 Comirnaty 30 MCG/0.3 ML Intramuscular Suspension Monserrat E Miedel Work Phone: [id number] 204 Work Phone: 08-17-2021 zoster vaccine recombinant Monserrat E Miedel Work Phone: [facility] [id number] DO Work Phone: 07-15-2021 Pfizer-BioNTech COVI D-19 Vacc 30 MCG/0.3ML Intramuscular Suspension Monserrat E Miedel Work Phone: [facility] 400 DO Work Phone: Comment on above: Series: 04-24-2021 zoster vaccine recombinant Monserrat E Miedel Work Phone: [facility] [id number] DO Work Phone: 12-07-2020 Pfizer-BioNTech COVI D-19 Vacc 30 MCG/0.3ML Intramuscular Suspension Monserrat E Miedel Work Phone: [facility] 400 DO Work Phone: Comment on above: Series: 11-12-2020 Pfizer-BioNTech COVI D-19 Vacc 30 MCG/0.3ML Intramuscular Suspension Monserrat E Miedel Work Phone: [facility] 400 DO Work Phone: Comment on above: Series: 07-16-2020 Fluad Quadrivalent 0 .5 ML Intramuscular Prefilled Syringe Monserrat E Miedel Work Phone: [facility] [id number] DO Work Phone: 08-19-2019 influenza, high dose seasonal, preservative-free Monserrat E Miedel Work Phone: [facility] A2440 DO Work Phone: 08-18-2019 tetanus toxoid, redu christian diphtheria toxoid, and acellular pertussis vaccine, adsorbed Monserrat America Miedel Work Phone: [facility] A2690 DO Work Phone: 07-25-2016 influenza, high dose seasonal, preservative-free Monserrat E Miedel Work Phone: [facility] 08-06-2015 influenza, seasonal, injectable Monserrat America Miedel Work Phone: [facility] 11-14-2014 pneumococcal conjuga te vaccine, 13 valent Monserrat Cross Miedel Work Phone: [facility] 07-25-2014 influenza, injectabl e, quadrivalent, preservative free Dr. Monserrat Wilson Work Phone: [facility] 07-25-2014 influenza, seasonal, injectable [facility] 08-01-2013 influenza virus vacc ine, unspecified formulation Smith Burton MD Work Phone: [facility] 07-19-2012 influenza virus vacc ine, unspecified formulation Smith Burton MD Work Phone: [facility] 08-18-2011 influenza virus vacc ine, unspecified formulation Smith Burton MD Work Phone: [facility] 11-27-2010 tetanus toxoid, redu christian diphtheria toxoid, and acellular pertussis vaccine, adsorbed Smith Burton MD Work Phone: [facility] 08-19-2008 influenza virus vacc ine, unspecified formulation Smith Burton MD Work Phone: [facility] Work Phone: 08-19-2008 pneumococcal polysaccharide vaccine, 23 valent Smith Burton MD Work Phone: [facility] Work Phone: 08-20-2007 influenza virus vacc ine, whole virus Monserrat America Chayorodneyyaw Work Phone: -[facility] A2470 DO Work Phone: 08-14-2007 influenza virus vacc ine, unspecified formulation Smith Burton MD Work Phone: [facility] Work Phone: 09-01-2006 influenza virus vacc ine, unspecified formulation Smith Burton MD Work Phone: [facility] Work Phone: 08-18-2005 influenza virus vacc ine, unspecified formulation Smith Burton MD Work Phone: [facility] 09-28-2004 influenza virus vacc ine, unspecified formulation Smith Burton MD Work Phone: [facility] Work Phone: 09-15-2003 diphtheria and tetan us toxoids, adsorbed for pediatric use Smith Burton MD Work Phone: [facility] Work Phone: 07-16-1999 pneumococcal polysaccharide vaccine, 23 valent Smith Burton MD Work Phone: [facility] Work Phone: influenza virus vacc ine, unspecified formulation Monserratlizz Tysonyaw Work Phone: [place] [address] [place] Work Phone: Comment on above: Approx 16Jul2021 Ser ies: Payers Date Payer Category Payer Self-pay [id number] 2021 Medicare AETNA MEDICARE A ETNA MEDICARE PPO [id number] 2021-Present [phone] [address] [place] [address] PPO [id number] 2021 Medicare AETNA MEDICARE A ETNA MEDICARE PPO [id number] 2021-Present [phone] [address] [place] [address] PPO [id number] 2021 Medicare (Managed Care) AETNA [place] DICARE [id number] 2017 Private Health Insurance 2013 Medicare [id number] 2013 Private Health Insurance [id number] 1941 Unknown [id number] 2.840.1.958031.3.579.2. 668 1941 Unknown [id number] 2.840.1.124520.3.579.2. 651 1941 Unknown [id number] 2.16840.1.316949.3.579.2. 651 1941 Unknown [id number] 2.16840.1.702406.3.579.2. 356 1941 Unknown [id number] 2.16.840.1.502636.3.579.2. 356 1941 Unknown [id number] 2.16840.1.263296.3.579.2. 356 1941 Unknown [id number] 2.16.840.1.987500.3.579.2. 356 1941 Unknown [id number] 2.16.840.1.184135.3.579.2. 356 1941 Unknown [id number] 2.16.840.1.094028.3.579.2. 594 1941 Unknown [id number] 2.16.840.1.442515.3.579.2. 594 Medicare [id number] Unknown Unknown [id number] 2.16.840.1.633973.3.579.2. 462 Unknown [id number] 2.16.840.1.776895.3.579.2. 462 Unknown [id number] 2.840.1.468671.3.579.2. 462 Unknown [id number] 2.840.1.835082.3.579.2. 462 Unknown [id number] 2.16.840.1.504853.3.579.2. 462 Unknown [id number] 2.840.1.575362.3.579.2. 462 Unknown [id number] 2.840.1.555960.3.579.2. 462 Unknown [id number] 2.16840.1.653560.3.579.2. 462 Unknown [id number] 2.16840.1.622039.3.579.2. 462 Unknown [id number] 2.16840.1.001221.3.579.2. 462 Unknown [id number] 2.16.840.1.046137.3.579.2. 462 Unknown [id number] 2.16.840.1.058452.3.579.2. 462 Unknown [id number] 2.16.840.1.541738.3.579.2. 462 Unknown [id number] 2.16.840.1.397461.3.579.2. 462 Unknown [id number] 2.16.840.1.784478.3.579.2. 462 Unknown [id number] 2.16.840.1.202040.3.579.2. 462 Unknown [id number] 2.16.840.1.323106.3.579.2. 462 Unknown [id number] 2.16.840.1.456044.3.579.2. 462 Unknown [id number] 2.16.840.1.887143.3.579.2. 462 Unknown [id number] 2.16.840.1.337762.3.579.2. 462 Unknown [id number] 2.16.840.1.036556.3.579.2. 462 Unknown [id number] 2.16.840.1.051828.3.579.2. 462 Unknown [id number] 2.16.840.1.641560.3.579.2. 462 Unknown [id number] 2.16.840.1.208841.3.579.2. 462 Unknown [id number] 2.16.840.1.086153.3.579.2. 462 Unknown [id number] 2.16.840.1.130981.3.579.2. 462 Unknown [id number] 2.16.840.1.411304.3.579.2. 462 Unknown [id number] 2.16.840.1.363000.3.579.2. 462 Unknown [id number] 2.16.840.1.725332.3.579.2. 462 Unknown [id number] 2.16.840.1.551374.3.579.2. 462 Unknown [id number] 2.16.840.1.391033.3.579.2. 462 Unknown [id number] 2.16.840.1.148414.3.579.2. 462 Unknown [id number] 2.16.840.1.459611.3.579.2. 462 Unknown [id number] 2.16840.1.391485.3.579.2. 462 Unknown [id number] 2.16.840.1.068425.3.579.2. 462 Unknown [id number] 2.16840.1.604441.3.579.2. 462 Unknown [id number] 2.16840.1.881141.3.579.2. 462 Unknown [id number] 2.840.1.918821.3.579.2. 462 Unknown [id number] 2.840.1.315122.3.579.2. 462 Unknown [id number] 2.840.1.302317.3.579.2. 462 Unknown [id number] 2.840.1.251480.3.579.2. 462 Unknown [id number] 2.840.1.383305.3.579.2. 462 Unknown [id number] 2.840.1.090966.3.579.2. 462 Unknown [id number] 2.840.1.037277.3.579.2. 462 Unknown [id number] 2.840.1.630715.3.579.2. 462 Unknown [id number] 2.840.1.230810.3.579.2. 462 Unknown [id number] 2.840.1.094269.3.579.2. 462 Unknown [id number] 2.840.1.853712.3.579.2. 462 Unknown [id number] 2.840.1.032817.3.579.2. 462 Unknown [id number] 2.16840.1.722384.3.579.2. 462 Unknown [id number] 2.840.1.667406.3.579.2. 462 Unknown [id number] 2.16.840.1.283677.3.579.2. 462 Unknown [id number] 2.16.840.1.003293.3.579.2. 462 Unknown [id number] 2.16.840.1.922051.3.579.2. 462 Unknown [id number] 2.16.840.1.543392.3.579.2. 462 Unknown [id number] 2.16.840.1.094315.3.579.2. 462 Unknown [id number] 2.16.840.1.455430.3.579.2. 462 Unknown [id number] 2.16.840.1.050790.3.579.2. 462 Unknown [id number] 2.16.840.1.092311.3.579.2. 462 Unknown [id number] 2.16.840.1.227949.3.579.2. 462 Unknown [id number] 2.16.840.1.852117.3.579.2. 462 Social History Date Type Detail Facility Start: 08-10-2020 End: 09-20-2020 Never a smoker Never a smoker [facility] Comment on above: quit 1975; Start: 06-03-2022 End: 03-26-2025 Tobacco smoking status NHIS Ex-smoker [facility] Start: 10-16-1955 End: 10-16-1975 History of tobacco use Current smoker [facility] Start: 10-16-1955 End: 10-16-1975 History of tobacco use Cigarette Smoker [facility] Start: 08-10-2020 End: 10-04-2023 Alcohol intake Current drinker of alcohol (finding) [facility] Start: 08-06-2020 History SDOH Alcohol Comment 2-3 drinks per day [facility] Start: 06-01-2020 End: 06-03-2022 Tobacco Comment QUIT 1975 [facility] Start: 1940 Sex Assigned At Not on file [facility] Start: 11-13-2021 End: 06-03-2022 Exposure to SARS-CoV-2 (event) Not sure [facility] Start: 05-09-2022 End: 08-27-2023 Tobacco smoking status NHIS Unknown if ever smoked [facility] Start: 04-23-2020 None [facility] Start: 04-23-2020 Spouse/ Signif icant Other [facility] Start: 1940 Sex Assigned At Male W [facility] Start: 04-01-2020 End: 06-03-2022 Tobacco use and exposure Smokeless tobacco non-user [facility] Start: 09-20-2020 End: 05-18-2023 Tobacco use panel [facility] Adult Depression Screening Assessment 0 [facility] Start: 05-06-2019 Gender identity Identifies as male gender (finding) [facility] Start: 04-01-2020 Tobacco smoking status NHIS Occasional tobacco smoker [facility] History of tobacco use Cigar Smoker [facility] How often to you hav e a drink containing alcohol? 4 or more times a week [facility] Start: 04-01-2020 Tobacco Comment occas [facility] Start: 04-01-2020 Alcohol Comment states everyday . [facility] Start: 01-06-2025 End: 01-23-2025 Sex Male (finding) [facility] NEGATED: Highlighted row - - [id number] Work Phone: Medical Equipment Procedure Code Equipment Code Equipment Origin al Text Equipment Identifier Dates ORIF, ankle 3.0 SORIN 14MM FDA Start: 06-16-2022 ORIF, ankle 3.5SCREW FDA Start: 06-16-2022 ORIF, ankle 4.0 CANCELLOUS 14MM FDA Star t: 06-16-2022 ORIF, ankle 6 HOLE DISTAL FIBULA PLATE RIGHT FDA Start: 06-16-2022 ORIF, ankle 3.0 SORIN 14MM FDA Start: 06-16-2022 ORIF, ankle 3.0LPS SCREW 14MM FDA Start: 06-16-2022 ORIF, ankle 3.0VAL 10MM FDA Start: 06-16-2022 ORIF, ankle 3.0VAL 12MM FDA Start: 06-16-2022 ORIF, ankle 3.5 LOCKING FDA Start: 06-16-2022 ORIF, ankle 3.5 SCREW 12MM FDA Start: 06-16-2022 ORIF, ankle 3.5MM SCREW 14MM FDA Start: 06-16-2022 ORIF, ankle 3.5SCREW FDA Start: 06-16-2022 ORIF, ankle 3.0 SORIN 14MM FDA Start: 06-16-2022 ORIF, ankle 3.5SCREW FDA Start: 06-16-2022 ORIF, ankle 4.0 CANCELLOUS 14MM FDA Star t: 06-16-2022 ORIF, ankle 6 HOLE DISTAL FIBULA PLATE RIGHT FDA Start: 06-16-2022 ORIF, ankle 3.0 SORIN 14MM FDA Start: 06-16-2022 ORIF, ankle 3.0LPS SCREW 14MM FDA Start: 06-16-2022 ORIF, ankle 3.0VAL 10MM FDA Start: 06-16-2022 ORIF, ankle 3.0VAL 12MM FDA Start: 06-16-2022 ORIF, ankle 3.5 LOCKING FDA Start: 06-16-2022 ORIF, ankle 3.5 SCREW 12MM FDA Start: 06-16-2022 ORIF, ankle 3.5MM SCREW 14MM FDA Start: 06-16-2022 ORIF, ankle 3.5SCREW FDA Start: 06-16-2022 ORIF, ankle 3.0 SORIN 14MM FDA Start: 06-16-2022 ORIF, ankle 3.5SCREW FDA Start: 06-16-2022 ORIF, ankle 4.0 CANCELLOUS 14MM FDA Star t: 06-16-2022 ORIF, ankle 6 HOLE DISTAL FIBULA PLATE RIGHT FDA Start: 06-16-2022 ORIF, ankle 3.0 SORIN 14MM FDA Start: 06-16-2022 ORIF, ankle 3.0LPS SCREW 14MM FDA Start: 06-16-2022 ORIF, ankle 3.0VAL 10MM FDA Start: 06-16-2022 ORIF, ankle 3.0VAL 12MM FDA Start: 06-16-2022 ORIF, ankle 3.5 LOCKING FDA Start: 06-16-2022 ORIF, ankle 3.5 SCREW 12MM FDA Start: 06-16-2022 ORIF, ankle 3.5MM SCREW 14MM FDA Start: 06-16-2022 ORIF, ankle 3.5SCREW FDA Start: 06-16-2022 ORIF, ankle 3.0 SORIN 14MM FDA Start: 06-16-2022 ORIF, ankle 3.5SCREW FDA Start: 06-16-2022 ORIF, ankle 4.0 CANCELLOUS 14MM FDA Star t: 06-16-2022 ORIF, ankle 6 HOLE DISTAL FIBULA PLATE RIGHT FDA Start: 06-16-2022 ORIF, ankle 3.0 SORIN 14MM FDA Start: 06-16-2022 ORIF, ankle 3.0LPS SCREW 14MM FDA Start: 06-16-2022 ORIF, ankle 3.0VAL 10MM FDA Start: 06-16-2022 ORIF, ankle 3.0VAL 12MM FDA Start: 06-16-2022 ORIF, ankle 3.5 LOCKING FDA Start: 06-16-2022 ORIF, ankle 3.5 SCREW 12MM FDA Start: 06-16-2022 ORIF, ankle 3.5MM SCREW 14MM FDA Start: 06-16-2022 ORIF, ankle 3.5SCREW FDA Start: 06-16-2022 ORIF, ankle 3.0 SORIN 14MM FDA Start: 06-16-2022 ORIF, ankle 3.5SCREW FDA Start: 06-16-2022 ORIF, ankle 4.0 CANCELLOUS 14MM FDA Star t: 06-16-2022 ORIF, ankle 6 HOLE DISTAL FIBULA PLATE RIGHT FDA Start: 06-16-2022 ORIF, ankle 3.0 SORIN 14MM FDA Start: 06-16-2022 ORIF, ankle 3.0LPS SCREW 14MM FDA Start: 06-16-2022 ORIF, ankle 3.0VAL 10MM FDA Start: 06-16-2022 ORIF, ankle 3.0VAL 12MM FDA Start: 06-16-2022 ORIF, ankle 3.5 LOCKING FDA Start: 06-16-2022 ORIF, ankle 3.5 SCREW 12MM FDA Start: 06-16-2022 ORIF, ankle 3.5MM SCREW 14MM FDA Start: 06-16-2022 ORIF, ankle 3.5SCREW FDA Start: 06-16-2022 ORIF, ankle 3.0 SORIN 14MM FDA Start: 06-16-2022 ORIF, ankle 3.5SCREW FDA Start: 06-16-2022 ORIF, ankle 4.0 CANCELLOUS 14MM FDA Star t: 06-16-2022 ORIF, ankle 6 HOLE DISTAL FIBULA PLATE RIGHT FDA Start: 06-16-2022 ORIF, ankle 3.0 SORIN 14MM FDA Start: 06-16-2022 ORIF, ankle 3.0LPS SCREW 14MM FDA Start: 06-16-2022 ORIF, ankle 3.0VAL 10MM FDA Start: 06-16-2022 ORIF, ankle 3.0VAL 12MM FDA Start: 06-16-2022 ORIF, ankle 3.5 LOCKING FDA Start: 06-16-2022 ORIF, ankle 3.5 SCREW 12MM FDA Start: 06-16-2022 ORIF, ankle 3.5MM SCREW 14MM FDA Start: 06-16-2022 ORIF, ankle 3.5SCREW FDA Start: 06-16-2022 ORIF, ankle 3.0 SORIN 14MM FDA Start: 06-16-2022 ORIF, ankle 3.5SCREW FDA Start: 06-16-2022 ORIF, ankle 4.0 CANCELLOUS 14MM FDA Star t: 06-16-2022 ORIF, ankle 6 HOLE DISTAL FIBULA PLATE RIGHT FDA Start: 06-16-2022 ORIF, ankle 3.0 SORIN 14MM FDA Start: 06-16-2022 ORIF, ankle 3.0LPS SCREW 14MM FDA Start: 06-16-2022 ORIF, ankle 3.0VAL 10MM FDA Start: 06-16-2022 ORIF, ankle 3.0VAL 12MM FDA Start: 06-16-2022 ORIF, ankle 3.5 LOCKING FDA Start: 06-16-2022 ORIF, ankle 3.5 SCREW 12MM FDA Start: 06-16-2022 ORIF, ankle 3.5MM SCREW 14MM FDA Start: 06-16-2022 ORIF, ankle 3.5SCREW FDA Start: 06-16-2022 ORIF, ankle 3.0 SORIN 14MM FDA Start: 06-16-2022 ORIF, ankle 3.5SCREW FDA Start: 06-16-2022 ORIF, ankle 4.0 CANCELLOUS 14MM FDA Star t: 06-16-2022 ORIF, ankle 6 HOLE DISTAL FIBULA PLATE RIGHT FDA Start: 06-16-2022 ORIF, ankle 3.0 SORIN 14MM FDA Start: 06-16-2022 ORIF, ankle 3.0LPS SCREW 14MM FDA Start: 06-16-2022 ORIF, ankle 3.0VAL 10MM FDA Start: 06-16-2022 ORIF, ankle 3.0VAL 12MM FDA Start: 06-16-2022 ORIF, ankle 3.5 LOCKING FDA Start: 06-16-2022 ORIF, ankle 3.5 SCREW 12MM FDA Start: 06-16-2022 ORIF, ankle 3.5MM SCREW 14MM FDA Start: 06-16-2022 ORIF, ankle 3.5SCREW FDA Start: 06-16-2022 ORIF, ankle 3.0 SORIN 14MM FDA Start: 06-16-2022 ORIF, ankle 3.5SCREW FDA Start: 06-16-2022 ORIF, ankle 4.0 CANCELLOUS 14MM FDA Star t: 06-16-2022 ORIF, ankle 6 HOLE DISTAL FIBULA PLATE RIGHT FDA Start: 06-16-2022 ORIF, ankle 3.0 SORIN 14MM FDA Start: 06-16-2022 ORIF, ankle 3.0LPS SCREW 14MM FDA Start: 06-16-2022 ORIF, ankle 3.0VAL 10MM FDA Start: 06-16-2022 ORIF, ankle 3.0VAL 12MM FDA Start: 06-16-2022 ORIF, ankle 3.5 LOCKING FDA Start: 06-16-2022 ORIF, ankle 3.5 SCREW 12MM FDA Start: 06-16-2022 ORIF, ankle 3.5MM SCREW 14MM FDA Start: 06-16-2022 ORIF, ankle 3.5SCREW FDA Start: 06-16-2022 ORIF, ankle 3.0 SORIN 14MM FDA Start: 06-16-2022 ORIF, ankle 3.5SCREW FDA Start: 06-16-2022 ORIF, ankle 4.0 CANCELLOUS 14MM FDA Star t: 06-16-2022 ORIF, ankle 6 HOLE DISTAL FIBULA PLATE RIGHT FDA Start: 06-16-2022 ORIF, ankle 3.0 SORIN 14MM FDA Start: 06-16-2022 ORIF, ankle 3.0LPS SCREW 14MM FDA Start: 06-16-2022 ORIF, ankle 3.0VAL 10MM FDA Start: 06-16-2022 ORIF, ankle 3.0VAL 12MM FDA Start: 06-16-2022 ORIF, ankle 3.5 LOCKING FDA Start: 06-16-2022 ORIF, ankle 3.5 SCREW 12MM FDA Start: 06-16-2022 ORIF, ankle 3.5MM SCREW 14MM FDA Start: 06-16-2022 ORIF, ankle 3.5SCREW FDA Start: 06-16-2022 ORIF, ankle 3.0 SORIN 14MM FDA Start: 06-16-2022 ORIF, ankle 3.5SCREW FDA Start: 06-16-2022 ORIF, ankle 4.0 CANCELLOUS 14MM FDA Star t: 06-16-2022 ORIF, ankle 6 HOLE DISTAL FIBULA PLATE RIGHT FDA Start: 06-16-2022 ORIF, ankle 3.0 SORIN 14MM FDA Start: 06-16-2022 ORIF, ankle 3.0LPS SCREW 14MM FDA Start: 06-16-2022 ORIF, ankle 3.0VAL 10MM FDA Start: 06-16-2022 ORIF, ankle 3.0VAL 12MM FDA Start: 06-16-2022 ORIF, ankle 3.5 LOCKING FDA Start: 06-16-2022 ORIF, ankle 3.5 SCREW 12MM FDA Start: 06-16-2022 ORIF, ankle 3.5MM SCREW 14MM FDA Start: 06-16-2022 ORIF, ankle 3.5SCREW FDA Start: 06-16-2022 ORIF, ankle 3.0 SORIN 14MM FDA Start: 06-16-2022 ORIF, ankle 3.5SCREW FDA Start: 06-16-2022 ORIF, ankle 4.0 CANCELLOUS 14MM FDA Star t: 06-16-2022 ORIF, ankle 6 HOLE DISTAL FIBULA PLATE RIGHT FDA Start: 06-16-2022 ORIF, ankle 3.0 SORIN 14MM FDA Start: 06-16-2022 ORIF, ankle 3.0LPS SCREW 14MM FDA Start: 06-16-2022 ORIF, ankle 3.0VAL 10MM FDA Start: 06-16-2022 ORIF, ankle 3.0VAL 12MM FDA Start: 06-16-2022 ORIF, ankle 3.5 LOCKING FDA Start: 06-16-2022 ORIF, ankle 3.5 SCREW 12MM FDA Start: 06-16-2022 ORIF, ankle 3.5MM SCREW 14MM FDA Start: 06-16-2022 ORIF, ankle 3.5SCREW FDA Start: 06-16-2022 ORIF, ankle 3.0 SORIN 14MM FDA Start: 06-16-2022 ORIF, ankle 3.5SCREW FDA Start: 06-16-2022 ORIF, ankle 4.0 CANCELLOUS 14MM FDA Star t: 06-16-2022 ORIF, ankle 6 HOLE DISTAL FIBULA PLATE RIGHT FDA Start: 06-16-2022 ORIF, ankle 3.0 SORIN 14MM FDA Start: 06-16-2022 ORIF, ankle 3.0LPS SCREW 14MM FDA Start: 06-16-2022 ORIF, ankle 3.0VAL 10MM FDA Start: 06-16-2022 ORIF, ankle 3.0VAL 12MM FDA Start: 06-16-2022 ORIF, ankle 3.5 LOCKING FDA Start: 06-16-2022 ORIF, ankle 3.5 SCREW 12MM FDA Start: 06-16-2022 ORIF, ankle 3.5MM SCREW 14MM FDA Start: 06-16-2022 ORIF, ankle 3.5SCREW FDA Start: 06-16-2022 ORIF, ankle 3.0 SORIN 14MM FDA Start: 06-16-2022 ORIF, ankle 3.5SCREW FDA Start: 06-16-2022 ORIF, ankle 4.0 CANCELLOUS 14MM FDA Star t: 06-16-2022 ORIF, ankle 6 HOLE DISTAL FIBULA PLATE RIGHT FDA Start: 06-16-2022 ORIF, ankle 3.0 SORIN 14MM FDA Start: 06-16-2022 ORIF, ankle 3.0LPS SCREW 14MM FDA Start: 06-16-2022 ORIF, ankle 3.0VAL 10MM FDA Start: 06-16-2022 ORIF, ankle 3.0VAL 12MM FDA Start: 06-16-2022 ORIF, ankle 3.5 LOCKING FDA Start: 06-16-2022 ORIF, ankle 3.5 SCREW 12MM FDA Start: 06-16-2022 ORIF, ankle 3.5MM SCREW 14MM FDA Start: 06-16-2022 ORIF, ankle 3.5SCREW FDA Start: 06-16-2022 ORIF, ankle 3.0 SORIN 14MM FDA Start: 06-16-2022 ORIF, ankle 3.5SCREW FDA Start: 06-16-2022 ORIF, ankle 4.0 CANCELLOUS 14MM FDA Star t: 06-16-2022 ORIF, ankle 6 HOLE DISTAL FIBULA PLATE RIGHT FDA Start: 06-16-2022 ORIF, ankle 3.0 SORIN 14MM FDA Start: 06-16-2022 ORIF, ankle 3.0LPS SCREW 14MM FDA Start: 06-16-2022 ORIF, ankle 3.0VAL 10MM FDA Start: 06-16-2022 ORIF, ankle 3.0VAL 12MM FDA Start: 06-16-2022 ORIF, ankle 3.5 LOCKING FDA Start: 06-16-2022 ORIF, ankle 3.5 SCREW 12MM FDA Start: 06-16-2022 ORIF, ankle 3.5MM SCREW 14MM FDA Start: 06-16-2022 ORIF, ankle 3.5SCREW FDA Start: 06-16-2022 ORIF, ankle 3.0 SORIN 14MM FDA Start: 06-16-2022 ORIF, ankle 3.5SCREW FDA Start: 06-16-2022 ORIF, ankle 4.0 CANCELLOUS 14MM FDA Star t: 06-16-2022 ORIF, ankle 6 HOLE DISTAL FIBULA PLATE RIGHT FDA Start: 06-16-2022 ORIF, ankle 3.0 SORIN 14MM FDA Start: 06-16-2022 ORIF, ankle 3.0LPS SCREW 14MM FDA Start: 06-16-2022 ORIF, ankle 3.0VAL 10MM FDA Start: 06-16-2022 ORIF, ankle 3.0VAL 12MM FDA Start: 06-16-2022 ORIF, ankle 3.5 LOCKING FDA Start: 06-16-2022 ORIF, ankle 3.5 SCREW 12MM FDA Start: 06-16-2022 ORIF, ankle 3.5MM SCREW 14MM FDA Start: 06-16-2022 ORIF, ankle 3.5SCREW FDA Start: 06-16-2022 ORIF, ankle 3.0 SORIN 14MM FDA Start: 06-16-2022 ORIF, ankle 3.5SCREW FDA Start: 06-16-2022 ORIF, ankle 4.0 CANCELLOUS 14MM FDA Star t: 06-16-2022 ORIF, ankle 6 HOLE DISTAL FIBULA PLATE RIGHT FDA Start: 06-16-2022 ORIF, ankle 3.0 SORIN 14MM FDA Start: 06-16-2022 ORIF, ankle 3.0LPS SCREW 14MM FDA Start: 06-16-2022 ORIF, ankle 3.0VAL 10MM FDA Start: 06-16-2022 ORIF, ankle 3.0VAL 12MM FDA Start: 06-16-2022 ORIF, ankle 3.5 LOCKING FDA Start: 06-16-2022 ORIF, ankle 3.5 SCREW 12MM FDA Start: 06-16-2022 ORIF, ankle 3.5MM SCREW 14MM FDA Start: 06-16-2022 ORIF, ankle 3.5SCREW FDA Start: 06-16-2022 ORIF, ankle 3.0 SORIN 14MM FDA Start: 06-16-2022 ORIF, ankle 3.5SCREW FDA Start: 06-16-2022 ORIF, ankle 4.0 CANCELLOUS 14MM FDA Star t: 06-16-2022 ORIF, ankle 6 HOLE DISTAL FIBULA PLATE RIGHT FDA Start: 06-16-2022 ORIF, ankle 3.0 SORIN 14MM FDA Start: 06-16-2022 ORIF, ankle 3.0LPS SCREW 14MM FDA Start: 06-16-2022 ORIF, ankle 3.0VAL 10MM FDA Start: 06-16-2022 ORIF, ankle 3.0VAL 12MM FDA Start: 06-16-2022 ORIF, ankle 3.5 LOCKING FDA Start: 06-16-2022 ORIF, ankle 3.5 SCREW 12MM FDA Start: 06-16-2022 ORIF, ankle 3.5MM SCREW 14MM FDA Start: 06-16-2022 ORIF, ankle 3.5SCREW FDA Start: 06-16-2022 ORIF, ankle 3.0 SORIN 14MM FDA Start: 06-16-2022 ORIF, ankle 3.5SCREW FDA Start: 06-16-2022 ORIF, ankle 4.0 CANCELLOUS 14MM FDA Star t: 06-16-2022 ORIF, ankle 6 HOLE DISTAL FIBULA PLATE RIGHT FDA Start: 06-16-2022 ORIF, ankle 3.0 SORIN 14MM FDA Start: 06-16-2022 ORIF, ankle 3.0LPS SCREW 14MM FDA Start: 06-16-2022 ORIF, ankle 3.0VAL 10MM FDA Start: 06-16-2022 ORIF, ankle 3.0VAL 12MM FDA Start: 06-16-2022 ORIF, ankle 3.5 LOCKING FDA Start: 06-16-2022 ORIF, ankle 3.5 SCREW 12MM FDA Start: 06-16-2022 ORIF, ankle 3.5MM SCREW 14MM FDA Start: 06-16-2022 ORIF, ankle 3.5SCREW FDA Start: 06-16-2022 ORIF, ankle 3.0 SORIN 14MM FDA Start: 06-16-2022 ORIF, ankle 3.5SCREW FDA Start: 06-16-2022 ORIF, ankle 4.0 CANCELLOUS 14MM FDA Star t: 06-16-2022 ORIF, ankle 6 HOLE DISTAL FIBULA PLATE RIGHT FDA Start: 06-16-2022 ORIF, ankle 3.0 SORIN 14MM FDA Start: 06-16-2022 ORIF, ankle 3.0LPS SCREW 14MM FDA Start: 06-16-2022 ORIF, ankle 3.0VAL 10MM FDA Start: 06-16-2022 ORIF, ankle 3.0VAL 12MM FDA Start: 06-16-2022 ORIF, ankle 3.5 LOCKING FDA Start: 06-16-2022 ORIF, ankle 3.5 SCREW 12MM FDA Start: 06-16-2022 ORIF, ankle 3.5MM SCREW 14MM FDA Start: 06-16-2022 ORIF, ankle 3.5SCREW FDA Start: 06-16-2022 ORIF, ankle 3.0 SORIN 14MM FDA Start: 06-16-2022 ORIF, ankle 3.5SCREW FDA Start: 06-16-2022 ORIF, ankle 4.0 CANCELLOUS 14MM FDA Star t: 06-16-2022 ORIF, ankle 6 HOLE DISTAL FIBULA PLATE RIGHT FDA Start: 06-16-2022 ORIF, ankle 3.0 SORIN 14MM FDA Start: 06-16-2022 ORIF, ankle 3.0LPS SCREW 14MM FDA Start: 06-16-2022 ORIF, ankle 3.0VAL 10MM FDA Start: 06-16-2022 ORIF, ankle 3.0VAL 12MM FDA Start: 06-16-2022 ORIF, ankle 3.5 LOCKING FDA Start: 06-16-2022 ORIF, ankle 3.5 SCREW 12MM FDA Start: 06-16-2022 ORIF, ankle 3.5MM SCREW 14MM FDA Start: 06-16-2022 ORIF, ankle 3.5SCREW FDA Start: 06-16-2022 ORIF, ankle 3.0 SORIN 14MM FDA Start: 06-16-2022 ORIF, ankle 3.5SCREW FDA Start: 06-16-2022 ORIF, ankle 4.0 CANCELLOUS 14MM FDA Star t: 06-16-2022 ORIF, ankle 6 HOLE DISTAL FIBULA PLATE RIGHT FDA Start: 06-16-2022 ORIF, ankle 3.0 SORIN 14MM FDA Start: 06-16-2022 ORIF, ankle 3.0LPS SCREW 14MM FDA Start: 06-16-2022 ORIF, ankle 3.0VAL 10MM FDA Start: 06-16-2022 ORIF, ankle 3.0VAL 12MM FDA Start: 06-16-2022 ORIF, ankle 3.5 LOCKING FDA Start: 06-16-2022 ORIF, ankle 3.5 SCREW 12MM FDA Start: 06-16-2022 ORIF, ankle 3.5MM SCREW 14MM FDA Start: 06-16-2022 ORIF, ankle 3.5SCREW FDA Start: 06-16-2022 ORIF, ankle 3.0 SORIN 14MM FDA Start: 06-16-2022 ORIF, ankle 3.5SCREW FDA Start: 06-16-2022 ORIF, ankle 4.0 CANCELLOUS 14MM FDA Star t: 06-16-2022 ORIF, ankle 6 HOLE DISTAL FIBULA PLATE RIGHT FDA Start: 06-16-2022 ORIF, ankle 3.0 SORIN 14MM FDA Start: 06-16-2022 ORIF, ankle 3.0LPS SCREW 14MM FDA Start: 06-16-2022 ORIF, ankle 3.0VAL 10MM FDA Start: 06-16-2022 ORIF, ankle 3.0VAL 12MM FDA Start: 06-16-2022 ORIF, ankle 3.5 LOCKING FDA Start: 06-16-2022 ORIF, ankle 3.5 SCREW 12MM FDA Start: 06-16-2022 ORIF, ankle 3.5MM SCREW 14MM FDA Start: 06-16-2022 ORIF, ankle 3.5SCREW FDA Start: 06-16-2022 ORIF, ankle 3.0 SORIN 14MM FDA Start: 06-16-2022 ORIF, ankle 3.5SCREW FDA Start: 06-16-2022 ORIF, ankle 4.0 CANCELLOUS 14MM FDA Star t: 06-16-2022 ORIF, ankle 6 HOLE DISTAL FIBULA PLATE RIGHT FDA Start: 06-16-2022 ORIF, ankle 3.0 SORIN 14MM FDA Start: 06-16-2022 ORIF, ankle 3.0LPS SCREW 14MM FDA Start: 06-16-2022 ORIF, ankle 3.0VAL 10MM FDA Start: 06-16-2022 ORIF, ankle 3.0VAL 12MM FDA Start: 06-16-2022 ORIF, ankle 3.5 LOCKING FDA Start: 06-16-2022 ORIF, ankle 3.5 SCREW 12MM FDA Start: 06-16-2022 ORIF, ankle 3.5MM SCREW 14MM FDA Start: 06-16-2022 ORIF, ankle 3.5SCREW FDA Start: 06-16-2022 ORIF, ankle 3.0 SORIN 14MM FDA Start: 06-16-2022 ORIF, ankle 3.5SCREW FDA Start: 06-16-2022 ORIF, ankle 4.0 CANCELLOUS 14MM FDA Star t: 06-16-2022 ORIF, ankle 6 HOLE DISTAL FIBULA PLATE RIGHT FDA Start: 06-16-2022 ORIF, ankle 3.0 SORIN 14MM FDA Start: 06-16-2022 ORIF, ankle 3.0LPS SCREW 14MM FDA Start: 06-16-2022 ORIF, ankle 3.0VAL 10MM FDA Start: 06-16-2022 ORIF, ankle 3.0VAL 12MM FDA Start: 06-16-2022 ORIF, ankle 3.5 LOCKING FDA Start: 06-16-2022 ORIF, ankle 3.5 SCREW 12MM FDA Start: 06-16-2022 ORIF, ankle 3.5MM SCREW 14MM FDA Start: 06-16-2022 ORIF, ankle 3.5SCREW FDA Start: 06-16-2022 ORIF, ankle 3.0 SORIN 14MM FDA Start: 06-16-2022 ORIF, ankle 3.5SCREW FDA Start: 06-16-2022 ORIF, ankle 4.0 CANCELLOUS 14MM FDA Star t: 06-16-2022 ORIF, ankle 6 HOLE DISTAL FIBULA PLATE RIGHT FDA Start: 06-16-2022 ORIF, ankle 3.0 SORIN 14MM FDA Start: 06-16-2022 ORIF, ankle 3.0LPS SCREW 14MM FDA Start: 06-16-2022 ORIF, ankle 3.0VAL 10MM FDA Start: 06-16-2022 ORIF, ankle 3.0VAL 12MM FDA Start: 06-16-2022 ORIF, ankle 3.5 LOCKING FDA Start: 06-16-2022 ORIF, ankle 3.5 SCREW 12MM FDA Start: 06-16-2022 ORIF, ankle 3.5MM SCREW 14MM FDA Start: 06-16-2022 ORIF, ankle 3.5SCREW FDA Start: 06-16-2022 ORIF, ankle 3.0 SORIN 14MM FDA Start: 06-16-2022 ORIF, ankle 3.5SCREW FDA Start: 06-16-2022 ORIF, ankle 4.0 CANCELLOUS 14MM FDA Star t: 06-16-2022 ORIF, ankle 6 HOLE DISTAL FIBULA PLATE RIGHT FDA Start: 06-16-2022 ORIF, ankle 3.0 SORIN 14MM FDA Start: 06-16-2022 ORIF, ankle 3.0LPS SCREW 14MM FDA Start: 06-16-2022 ORIF, ankle 3.0VAL 10MM FDA Start: 06-16-2022 ORIF, ankle 3.0VAL 12MM FDA Start: 06-16-2022 ORIF, ankle 3.5 LOCKING FDA Start: 06-16-2022 ORIF, ankle 3.5 SCREW 12MM FDA Start: 06-16-2022 ORIF, ankle 3.5MM SCREW 14MM FDA Start: 06-16-2022 ORIF, ankle 3.5SCREW FDA Start: 06-16-2022 ORIF, ankle 3.0 SORIN 14MM FDA Start: 06-16-2022 ORIF, ankle 3.5SCREW FDA Start: 06-16-2022 ORIF, ankle 4.0 CANCELLOUS 14MM FDA Star t: 06-16-2022 ORIF, ankle 6 HOLE DISTAL FIBULA PLATE RIGHT FDA Start: 06-16-2022 ORIF, ankle 3.0 SORIN 14MM FDA Start: 06-16-2022 ORIF, ankle 3.0LPS SCREW 14MM FDA Start: 06-16-2022 ORIF, ankle 3.0VAL 10MM FDA Start: 06-16-2022 ORIF, ankle 3.0VAL 12MM FDA Start: 06-16-2022 ORIF, ankle 3.5 LOCKING FDA Start: 06-16-2022 ORIF, ankle 3.5 SCREW 12MM FDA Start: 06-16-2022 ORIF, ankle 3.5MM SCREW 14MM FDA Start: 06-16-2022 ORIF, ankle 3.5SCREW FDA Start: 06-16-2022 ORIF, ankle 3.0 SORIN 14MM FDA Start: 06-16-2022 ORIF, ankle 3.5SCREW FDA Start: 06-16-2022 ORIF, ankle 4.0 CANCELLOUS 14MM FDA Star t: 06-16-2022 ORIF, ankle 6 HOLE DISTAL FIBULA PLATE RIGHT FDA Start: 06-16-2022 ORIF, ankle 3.0 SORIN 14MM FDA Start: 06-16-2022 ORIF, ankle 3.0LPS SCREW 14MM FDA Start: 06-16-2022 ORIF, ankle 3.0VAL 10MM FDA Start: 06-16-2022 ORIF, ankle 3.0VAL 12MM FDA Start: 06-16-2022 ORIF, ankle 3.5 LOCKING FDA Start: 06-16-2022 ORIF, ankle 3.5 SCREW 12MM FDA Start: 06-16-2022 ORIF, ankle 3.5MM SCREW 14MM FDA Start: 06-16-2022 ORIF, ankle 3.5SCREW FDA Start: 06-16-2022 ORIF, ankle 3.0 SORIN 14MM FDA Start: 06-16-2022 ORIF, ankle 3.5SCREW FDA Start: 06-16-2022 ORIF, ankle 4.0 CANCELLOUS 14MM FDA Star t: 06-16-2022 ORIF, ankle 6 HOLE DISTAL FIBULA PLATE RIGHT FDA Start: 06-16-2022 ORIF, ankle 3.0 SORIN 14MM FDA Start: 06-16-2022 ORIF, ankle 3.0LPS SCREW 14MM FDA Start: 06-16-2022 ORIF, ankle 3.0VAL 10MM FDA Start: 06-16-2022 ORIF, ankle 3.0VAL 12MM FDA Start: 06-16-2022 ORIF, ankle 3.5 LOCKING FDA Start: 06-16-2022 ORIF, ankle 3.5 SCREW 12MM FDA Start: 06-16-2022 ORIF, ankle 3.5MM SCREW 14MM FDA Start: 06-16-2022 ORIF, ankle 3.5SCREW FDA Start: 06-16-2022 ORIF, ankle 3.0 SORIN 14MM FDA Start: 06-16-2022 ORIF, ankle 3.5SCREW FDA Start: 06-16-2022 ORIF, ankle 4.0 CANCELLOUS 14MM FDA Star t: 06-16-2022 ORIF, ankle 6 HOLE DISTAL FIBULA PLATE RIGHT FDA Start: 06-16-2022 ORIF, ankle 3.0 SORIN 14MM FDA Start: 06-16-2022 ORIF, ankle 3.0LPS SCREW 14MM FDA Start: 06-16-2022 ORIF, ankle 3.0VAL 10MM FDA Start: 06-16-2022 ORIF, ankle 3.0VAL 12MM FDA Start: 06-16-2022 ORIF, ankle 3.5 LOCKING FDA Start: 06-16-2022 ORIF, ankle 3.5 SCREW 12MM FDA Start: 06-16-2022 ORIF, ankle 3.5MM SCREW 14MM FDA Start: 06-16-2022 ORIF, ankle 3.5SCREW FDA Start: 06-16-2022 Generator Implantable Pulse - [id number] Start: 12-02-2016 Lead Upper Airwa y Stimulation - [id number] Start: 12-02-2016 Lead Respiratory Sensing - [id number] Start: 12-02-2016 [id number] Start: 11-23-2018 Comment on above: USE ONE STRIP TO NAIN CK GLUCOSE ONCE DAILY Use as directed to t est glucose 3 times weekly. DX: E11.9 Blood Sugar Diagnostic (Onetouch Verio Test Strips) strip Start: 05-26-2021 Blood Sugar Diagnostic (Onetouch Verio Test Strips) strip Start: 05-26-2021 End: 05-26-2021 Blood Sugar Diagnostic (Onetouch Verio Test Strips) strip Start: 05-26-2021 Blood Sugar Diagnostic (Onetouch Verio Test Strips) strip Start: 05-26-2021 End: 05-26-2021 Blood Sugar Diagnostic (Onetouch Verio Test Strips) strip Start: 05-26-2021 Blood Sugar Diagnostic (Onetouch Verio Test Strips) strip Start: 05-26-2021 End: 05-26-2021 Blood Sugar Diagnostic (Onetouch Verio Test Strips) strip Start: 05-26-2021 Blood Sugar Diagnostic (Onetouch Verio Test Strips) strip Start: 05-26-2021 End: 05-26-2021 Blood Sugar Diagnostic (Onetouch Verio Test Strips) strip Start: 05-26-2021 Blood Sugar Diagnostic (Onetouch Verio Test Strips) strip Start: 05-26-2021 End: 05-26-2021 Blood Sugar Diagnostic (Onetouch Verio Test Strips) strip Start: 05-26-2021 Blood Sugar Diagnostic (Onetouch Verio Test Strips) strip Start: 05-26-2021 End: 05-26-2021 Blood Sugar Diagnostic (Onetouch Verio Test Strips) strip Start: 05-26-2021 Blood Sugar Diagnostic (Onetouch Verio Test Strips) strip Start: 05-26-2021 End: 05-26-2021 Blood Sugar Diagnostic (Onetouch Verio Test Strips) strip Start: 05-26-2021 Blood Sugar Diagnostic (Onetouch Verio Test Strips) strip Start: 05-26-2021 End: 05-26-2021 Blood Sugar Diagnostic (Onetouch Verio Test Strips) strip Start: 09-06-2022 Blood Sugar Diagnostic (Onetouch Verio Test Strips) strip Start: 05-26-2021 End: 05-26-2021 Blood Sugar Diagnostic (Onetouch Verio Test Strips) strip Start: 05-26-2021 End: 09-06-2022 INSPIRE (sleep apnea device) FDA Start: 12-02-2016 Blood Sugar Diagnostic (Onetouch Verio Test Strips) strip Start: 09-06-2022 Blood Sugar Diagnostic (Onetouch Verio Test Strips) strip Start: 05-26-2021 End: 05-26-2021 Blood Sugar Diagnostic (Onetouch Verio Test Strips) strip Start: 05-26-2021 End: 09-06-2022 INSPIRE (sleep apnea device) FDA Start: 12-02-2016 Blood Sugar Diagnostic (Onetouch Verio Test Strips) strip Start: 09-06-2022 Blood Sugar Diagnostic (Onetouch Verio Test Strips) strip Start: 05-26-2021 End: 05-26-2021 Blood Sugar Diagnostic (Onetouch Verio Test Strips) strip Start: 05-26-2021 End: 09-06-2022 INSPIRE (sleep apnea device) FDA Start: 12-02-2016 Blood Sugar Diagnostic (Onetouch Verio Test Strips) strip Start: 09-06-2022 Blood Sugar Diagnostic (Onetouch Verio Test Strips) strip Start: 05-26-2021 End: 05-26-2021 Blood Sugar Diagnostic (Onetouch Verio Test Strips) strip Start: 05-26-2021 End: 09-06-2022 INSPIRE (sleep apnea device) FDA Start: 12-02-2016 Blood Sugar Diagnostic (Onetouch Verio Test Strips) strip Start: 09-06-2022 Blood Sugar Diagnostic (Onetouch Verio Test Strips) strip Start: 05-26-2021 End: 05-26-2021 Blood Sugar Diagnostic (Onetouch Verio Test Strips) strip Start: 05-26-2021 End: 09-06-2022 INSPIRE (sleep apnea device) FDA Start: 12-02-2016 Blood Sugar Diagnostic (Onetouch Verio Test Strips) strip Start: 09-06-2022 Blood Sugar Diagnostic (Onetouch Verio Test Strips) strip Start: 05-26-2021 End: 05-26-2021 Blood Sugar Diagnostic (Onetouch Verio Test Strips) strip Start: 05-26-2021 End: 09-06-2022 INSPIRE (sleep apnea device) FDA Start: 12-02-2016 Blood Sugar Diagnostic (Onetouch Verio Test Strips) strip Start: 09-06-2022 Blood Sugar Diagnostic (Onetouch Verio Test Strips) strip Start: 05-26-2021 End: 05-26-2021 Blood Sugar Diagnostic (Onetouch Verio Test Strips) strip Start: 05-26-2021 End: 09-06-2022 INSPIRE (sleep apnea device) FDA Start: 12-02-2016 Blood Sugar Diagnostic (Onetouch Verio Test Strips) strip Start: 09-06-2022 Blood Sugar Diagnostic (Onetouch Verio Test Strips) strip Start: 05-26-2021 End: 05-26-2021 Blood Sugar Diagnostic (Onetouch Verio Test Strips) strip Start: 05-26-2021 End: 09-06-2022 INSPIRE (sleep apnea device) FDA Start: 12-02-2016 Blood Sugar Diagnostic (Onetouch Verio Test Strips) strip Start: 09-06-2022 Blood Sugar Diagnostic (Onetouch Verio Test Strips) strip Start: 05-26-2021 End: 05-26-2021 Blood Sugar Diagnostic (Onetouch Verio Test Strips) strip Start: 05-26-2021 End: 09-06-2022 INSPIRE (sleep apnea device) FDA Start: 12-02-2016 Blood Sugar Diagnostic (Onetouch Verio Test Strips) strip Start: 09-06-2022 Blood Sugar Diagnostic (Onetouch Verio Test Strips) strip Start: 05-26-2021 End: 05-26-2021 Blood Sugar Diagnostic (Onetouch Verio Test Strips) strip Start: 05-26-2021 End: 09-06-2022 INSPIRE (sleep apnea device) FDA Start: 12-02-2016 Blood Sugar Diagnostic (Onetouch Verio Test Strips) strip Start: 09-06-2022 Blood Sugar Diagnostic (Onetouch Verio Test Strips) strip Start: 05-26-2021 End: 05-26-2021 Blood Sugar Diagnostic (Onetouch Verio Test Strips) strip Start: 05-26-2021 End: 09-06-2022 INSPIRE (sleep apnea device) FDA Start: 12-02-2016 Blood Sugar Diagnostic (Onetouch Verio Test Strips) strip Start: 09-06-2022 Blood Sugar Diagnostic (Onetouch Verio Test Strips) strip Start: 05-26-2021 End: 05-26-2021 Blood Sugar Diagnostic (Onetouch Verio Test Strips) strip Start: 05-26-2021 End: 09-06-2022 INSPIRE (sleep apnea device) FDA Start: 12-02-2016 Blood Sugar Diagnostic (Onetouch Verio Test Strips) strip Start: 09-06-2022 Blood Sugar Diagnostic (Onetouch Verio Test Strips) strip Start: 05-26-2021 End: 05-26-2021 Blood Sugar Diagnostic (Onetouch Verio Test Strips) strip Start: 05-26-2021 End: 09-06-2022 INSPIRE (sleep apnea device) FDA Start: 12-02-2016 BONE,CRUSHED CANCELLOUS 15CC FDA Start: 07-29-2024 ([id number]) Coated knee femu r prosthesis ()[id number] FDA Start: 07-29-2024 ([id number]) Coated knee tibi a prosthesis ()[id number] FDA Start: 07-29-2024 ([id number]) Tibial insert ()[id number] FDA Start: 07-29-2024 Blood Sugar Diagnostic (Onetouch Verio Test Strips) strip Start: 09-06-2022 Blood Sugar Diagnostic (Onetouch Verio Test Strips) strip Start: 05-26-2021 End: 05-26-2021 Blood Sugar Diagnostic (Onetouch Verio Test Strips) strip Start: 05-26-2021 End: 09-06-2022 INSPIRE (sleep apnea device) FDA Start: 12-02-2016 BONE,CRUSHED CANCELLOUS 15CC FDA Start: 07-29-2024 Blood Sugar Diagnostic (Onetouch Verio Test Strips) strip Start: 09-06-2022 Blood Sugar Diagnostic (Onetouch Verio Test Strips) strip Start: 05-26-2021 End: 05-26-2021 Blood Sugar Diagnostic (Onetouch Verio Test Strips) strip Start: 05-26-2021 End: 09-06-2022 INSPIRE (sleep apnea device) FDA Start: 12-02-2016 BONE,CRUSHED CANCELLOUS 15CC FDA Start: 07-29-2024 Blood Sugar Diagnostic (Onetouch Verio Test Strips) strip Start: 09-06-2022 Blood Sugar Diagnostic (Onetouch Verio Test Strips) strip Start: 05-26-2021 End: 05-26-2021 Blood Sugar Diagnostic (Onetouch Verio Test Strips) strip Start: 05-26-2021 End: 09-06-2022 INSPIRE (sleep apnea device) FDA Start: 12-02-2016 BONE,CRUSHED CANCELLOUS 15CC FDA Start: 07-29-2024 Blood Sugar Diagnostic (Onetouch Verio Test Strips) strip Start: 09-06-2022 Blood Sugar Diagnostic (Onetouch Verio Test Strips) strip Start: 05-26-2021 End: 05-26-2021 Blood Sugar Diagnostic (Onetouch Verio Test Strips) strip Start: 05-26-2021 End: 09-06-2022 INSPIRE (sleep apnea device) FDA Start: 12-02-2016 BONE,CRUSHED CANCELLOUS 15CC FDA Start: 07-29-2024 Blood Sugar Diagnostic (Onetouch Verio Test Strips) strip Start: 09-06-2022 Blood Sugar Diagnostic (Onetouch Verio Test Strips) strip Start: 05-26-2021 End: 05-26-2021 Blood Sugar Diagnostic (Onetouch Verio Test Strips) strip Start: 05-26-2021 End: 09-06-2022 INSPIRE (sleep apnea device) FDA Start: 12-02-2016 BONE,CRUSHED CANCELLOUS 15CC FDA Start: 07-29-2024 Blood Sugar Diagnostic (Onetouch Verio Test Strips) strip Start: 09-06-2022 Blood Sugar Diagnostic (Onetouch Verio Test Strips) strip Start: 05-26-2021 End: 05-26-2021 Blood Sugar Diagnostic (Onetouch Verio Test Strips) strip Start: 05-26-2021 End: 09-06-2022 INSPIRE (sleep apnea device) FDA Start: 12-02-2016 BONE,CRUSHED CANCELLOUS 15CC FDA Start: 07-29-2024 Blood Sugar Diagnostic (Onetouch Verio Test Strips) strip Start: 09-06-2022 Blood Sugar Diagnostic (Onetouch Verio Test Strips) strip Start: 05-26-2021 End: 05-26-2021 Blood Sugar Diagnostic (Onetouch Verio Test Strips) strip Start: 05-26-2021 End: 09-06-2022 INSPIRE (sleep apnea device) FDA Start: 12-02-2016 BONE,CRUSHED CANCELLOUS 15CC FDA Start: 07-29-2024 Blood Sugar Diagnostic (Onetouch Verio Test Strips) strip Start: 09-06-2022 Blood Sugar Diagnostic (Onetouch Verio Test Strips) strip Start: 05-26-2021 End: 05-26-2021 Blood Sugar Diagnostic (Onetouch Verio Test Strips) strip Start: 05-26-2021 End: 09-06-2022 INSPIRE (sleep apnea device) FDA Start: 12-02-2016 BONE,CRUSHED CANCELLOUS 15CC FDA Start: 07-29-2024 Blood Sugar Diagnostic (Onetouch Verio Test Strips) strip Start: 09-06-2022 Blood Sugar Diagnostic (Onetouch Verio Test Strips) strip Start: 05-26-2021 End: 05-26-2021 Blood Sugar Diagnostic (Onetouch Verio Test Strips) strip Start: 05-26-2021 End: 09-06-2022 INSPIRE (sleep apnea device) FDA Start: 12-02-2016 BONE,CRUSHED CANCELLOUS 15CC FDA Start: 07-29-2024 Blood Sugar Diagnostic (Onetouch Verio Test Strips) strip Start: 09-06-2022 Blood Sugar Diagnostic (Onetouch Verio Test Strips) strip Start: 05-26-2021 End: 05-26-2021 Blood Sugar Diagnostic (Onetouch Verio Test Strips) strip Start: 05-26-2021 End: 09-06-2022 INSPIRE (sleep apnea device) FDA Start: 12-02-2016 BONE,CRUSHED CANCELLOUS 15CC FDA Start: 07-29-2024 Blood Sugar Diagnostic (Onetouch Verio Test Strips) strip Start: 09-06-2022 Blood Sugar Diagnostic (Onetouch Verio Test Strips) strip Start: 05-26-2021 End: 05-26-2021 Blood Sugar Diagnostic (Onetouch Verio Test Strips) strip Start: 05-26-2021 End: 09-06-2022 INSPIRE (sleep apnea device) FDA Start: 12-02-2016 BONE,CRUSHED CANCELLOUS 15CC FDA Start: 07-29-2024 Blood Sugar Diagnostic (Onetouch Verio Test Strips) strip Start: 09-06-2022 Blood Sugar Diagnostic (Onetouch Verio Test Strips) strip Start: 05-26-2021 End: 05-26-2021 Blood Sugar Diagnostic (Onetouch Verio Test Strips) strip Start: 05-26-2021 End: 09-06-2022 INSPIRE (sleep apnea device) FDA Start: 12-02-2016 BONE,CRUSHED CANCELLOUS 15CC FDA Start: 07-29-2024 Blood Sugar Diagnostic (Onetouch Verio Test Strips) strip Start: 09-06-2022 Blood Sugar Diagnostic (Onetouch Verio Test Strips) strip Start: 05-26-2021 End: 05-26-2021 Blood Sugar Diagnostic (Onetouch Verio Test Strips) strip Start: 05-26-2021 End: 09-06-2022 INSPIRE (sleep apnea device) FDA Start: 12-02-2016 BONE,CRUSHED CANCELLOUS 15CC FDA Start: 07-29-2024 Blood Sugar Diagnostic (Onetouch Verio Test Strips) strip Start: 09-06-2022 Blood Sugar Diagnostic (Onetouch Verio Test Strips) strip Start: 05-26-2021 End: 05-26-2021 Blood Sugar Diagnostic (Onetouch Verio Test Strips) strip Start: 05-26-2021 End: 09-06-2022 Goals Date Patient Goal Desired Activity /State Functional Status Date Assessment Result Facility 01-04-2024 Functional status [facility] Work Phone: 05-14-2015 Are you deaf, or do you have serious difficulty hearing No 05/14/2015 10:00 AM Sowmya Lea RN No [facility] 05-14-2015 Are you blind, or do you have serious difficulty seeing, even when wearing glasses No 05/14/2015 10:00 AM Sowmya Lea RN No [facility] 05-14-2015 Do you have serious difficulty walking or climbing stairs No 05/14/2015 10:00 AM Sowmya Lea RN No [facility] 05-14-2015 Do you have difficul ty dressing or bathing No 05/14/2015 10:00 AM Sowmya Lea, RN No [facility] 05-14-2015 Because of a physica l, mental, or emotional condition, do you have difficulty doing errands alone such as visiting a physician's office or shopping No 05/14/2015 10:00 AM Sowmya Lea, RN No [facility] NEGATED: Highlighted row Functional performance Functional status health issues are not documented Disease [facility] [address] Work Phone: Mental Status Date Assessment Result Facility 01-04-2024 Cognitive function Level Of Cons ciousness Awake;Alert;Appropriate ;Follows Commands [facility] Work Phone: 01-04-2024 Cognitive function Voice/Name [facility] Work Phone: 06-16-2022 Cognitive function Voice/Name [facility] Work Phone: 05-14-2015 Because of a physical, mental, or emotional condition, do you have serious difficulty concentrating, remembering, or making decisions No 05/14/2015 10:00 AM Sowmya Lea, KALE No [facility] NEGATED: Highlighted row Cognitive function [Interpretation] Cognitive status health issues are not documented Disease [place] [address] Work Phone: Clinical Notes 12-17-2014 to 03-25-2025 Note Date & Type Note Facility 03-25-2025 Radiology Diagnostic study note [facility] Imaging Services [address] [place], [place] [address] Abdomen/Pelvis WITH Contrast MR#: [id number] Acct: [id number] Name: TEMO GARRISON Rep #: [id number] : 1940 M 84 From: Flaco Campos MD PCP: Dr. Phoenix Duran MD Status: REG C ANASTACIO Study:Abdomen/Pelvis WITH Contrast Date of Ex am: 03/25/25 Exam# [id number] Ordering Dr: David Badillo NETWORK CONTRACTOR-C PROCEDURE: ABDOMEN/PELVIS WITH CONTRAST 03/25/2025 REASON FOR EXAM: HIGH SUSPICION FOR ENTERITIS SEEN ON KUB TECHNIQUE: Abdomen and pelvis CT with intravenous contrast. Coronal and Sagittal reconstruction series were provided. PATIENT PREPARATION: Per protocol ORAL CONTRAST TYPE: None. AMOUNT: mL CONTRAST: Isovue 370 VOLUME: 80 mL One or more dose reduction techniques were used (e.g., Automated exposure control, adjustment of the mA and/or kV according to patient size, use of iterative reconstruction technique. RADIATION DOSE SUMMARY: CTDlvol: 13.3 x 17.3 x 12.2 mGy DLP: 1109.89 mGycm COMPARISON: 02/27/2025 radiograph. FINDINGS: The peripheral soft tissues are unremarkable. Degenerative changes of the spine. Degenerative changes of the knees and sacroiliac joints. Infrarenal abdominal aortic fusiform aneurysm measures 3.2 cm. No lymphadenopathy. Subcentimeter hepatic hypodense lesions that are too small to characterize. Thegallbladder is unremarkable. The pancreas is unremarkable. The adrenals and kidneys are unremarkable. No hydronephrosis. The urinary bladder is unremarkable. The prostate is unremarkable. Normal caliber large and small bowel. A few scattered colonic diverticuli. No surrounding inflammation. Normal caliber appendix. CT/Abdomen/Pelvis WITH Contrast IMPRESSION: No acute abnormalities of the abdomen or pelvis. No evidence of bowel obstruction or ileus. Colonic diverticulosis. Infrarenal abdominal aortic fusiform aneurysm. Reading Location: [id number] CC: ROCIO Badillo; Dr. Phoenix Duran MD ~ Manager Social Media: Signed [facility] 03-04-2025 Progress note [facility] 03-04-2025 Progress note Note Date/Time March 04, 2025 12:07pm [facility] [address] [place] [address]. [place] [address] OFFICE VISIT Date of Service: 03/04/25 1134 MR#: [id number] Acct: [id number] Name: TEMO GARRISON Rep #: [id number] : 1940 From: Galileo Ohara MD Age/Sex: 84/M [place] [facility] Status: Signed HPI Subjective Date of Service 03/04/25 Chief Complaint F/u for Thrombosis. History of Present Illness Mr. Pisano is a pleasant 84-year-old man with a history of DVTs (per patient self-report he had 2 episodes 1 year apart both involving the LLE. He is firm these were unprovoked. He did not meet with a hot plate plywood press laborer following the second DVT. He did follow with a vascular surgeon, Dr. Aly Saunders). Mr. Pisano underwent left knee replacement on 07/29/2024 with Lovenox bridge 3 days prior to surgery. He resumed Eliquis 5 mg bid post operative day 1. He developed left lower extremity pain, venous Doppler on 08/05/2024 showed acute DVT in left popliteal vein. He was admitted to [facility] on 08/05/2024 and started on Lovenox. He was referred to [facility] for further management. Doppler on 08/28/2024 showed ChronicDVT Left femoral vein. Lovenox was changed to Eliquis. Comes for follow up. He is still on Eliquis but lower dose. Has a fracture of the L ankle. A review of historic records revealed the following: November 11, 2019 venous Doppler left lower extremity Interpretation summary Acute deep vein thrombosis is noted in the left common femoral vein, left femoral vein, left popliteal vein, left tibioperoneal trunk, left posterior tibial vein, left peroneal vein, left soleus vein, and left gastrocnemius vein. February 25, 2020 venous Doppler left lower extremity Interpretation summary Acute deep vein thrombosis is noted in the left femoral vein, left popliteal vein, left tibioperoneal trunk, left posterior tibial vein, and left gastrocnemius vein. May 25, 2020 venous Doppler left lower extremity Interpretation summary Acute deep vein thrombosis is noted in the left femoral vein, left popliteal vein, left tibioperoneal trunk, and left gastrocnemius vein. FOR[facility]LY [facility], [facility] Medical History Chronic kidney disease Anticoagulant long-term use Adult failure to thrive Acute deep vein thrombosis (DVT) of popliteal vein of left lower extremity Overweight (BMI 25.0-29.9) Abrasion Ankle injury Cancer Thyroid disease Arthritis History of renal disease High cholesterol Back pain History of echocardiogram Tilt table evaluation Hx of fracture of ankle Chronic fatigue Chronic pain Squamous cell cancer of external ear ROSITA (obstructive sleep apnea) Alcohol abuse Mixed hyperlipidemia Type 2 diabetes mellitus Syncope and collapse Essential hypertension History of DVT (deep vein thrombosis) Wears hearing aid Wears glasses Fibromyalgia Alcohol use Diabetes DVT (deep venous thrombosis) Thinning of skin Restless legs (Unknown) Back pain Injury of head and neck Passed out Dietary restriction Gastric reflux Former smoker Leg cramps History of stress test History of Holter monitoring Cardiology follow-up encounter History of rheumatic fever Encounter for screening for COVID-19 Fatigue Diabetes mellitus inspire device implant intracular lenses x2 Raynaud disease Cataracts, bilateral Chronic kidney disease, stage 3 HTN (hypertension) Hypertriglyceridemia Hyperlipidemia Prostate Tissues Osteoarthritis Gout Chest pain Surgical History S/P total knee arthroplasty History of transurethral resection of prostate History of esophagogastroduodenoscopy (EGD) Hx of colonoscopy History of repair of anterior cruciate ligament of left knee H/O cataract removal with insertion of prosthetic lens History of total right knee replacement (TKR) Family History Brother Myocardial infarction, Onset Age: 58 Sister Cancer Breast Grandfather Myocardial infarction Other Arthritis Breast cancer FH: defects Social History Smoking Status: Former smoker alcohol intake: current alcohol intake frequency: 0-2 drinks per day details: states 0 - 2 shots of [place] daily edited on 08.27.24 per patient request substance use type: does not use caffeine: Yes Type: coffee Number of servings: 3 what type of physical activity do you participate in: none Intake Vital Signs 12/09/24 11:25 03/04/25 11:35 Height 5 ft 8 in 5 ft 8 in Weight: 81.902 kg BMI 27.4 BP 145/81 H Blood Pressure Location Rt brachial Position Sitting Respiration 18 Pulse 60 Pulse Source Monitor Temp 97.1 F L Temperature Source Temporal Artery Pulse Oximetry (%) 99 Oxygen Delivery Method room air Intake Is patient in pain?: Yes (left ankle) Pain scale (1-10): 2 Allergies tamsulosin Allergy (Severe, Verified 03/04/25 11:39) Blacked out, Passed out meloxicam Allergy (Unknown, Verified 03/04/25 11:39) Decrease in kidney function alfuzosin HCl (From Uroxatral) Allergy (Verified 03/04/25 11:39) Unknown ezetimibe (From Zetia) Allergy (Verified 03/04/25 11:39) Pain in joints pramipexole di-HCl (From Mirapex) Allergy (Verified 03/04/25 11:39) Other simvastatin (From Zocor) Allergy (Verified 03/04/25 11:39) Pain in joints celecoxib (From Celebrex) Adverse Reaction (Unknown, Verified 03/04/25 11:39) Unknown lisinopril Adverse Reaction (Verified 03/04/25 11:39) Other Medications ?Medication ?Instructions ?Recorded ?Confirmed ?Type losartan 25 mg tablet 25 mg PO DAILY blood pressur e 04/17/14 03/04/25 History blood sugar diagnostic (OneTouch 09/06/22 03/04/25 [employer] story Verio test strips) ketoconazole 2 % shampoo 1 applic topical 2XW PRN PRN 09/06/22 03/04/25 History levothyroxine 50 mcg capsule 50 mcg PO DAILY 08/01/23 03/04/25 History cbd topical 3,000 mg topical 08/21/24 History dupilumab 300 mg/2 mL subcutaneous 300 mg subcut .ever y 14 days 08/21/24 03/04/25 History pen injector (Dupixent) metoprolol succinate 50 mg mg PO DAILY 11/07/24 History tablet,extended release 24 hr apixaban 5 mg tablet (Eliquis) 2.5 mg PO BID 03/04/25 03/04/25 History citalopram 20 mg tablet 20 mg PO QDAY 03/04/2503/04 History Have you fallen in the past year?: Yes Central Venous Access Central Venous Access: No Exam Physical Exam Const alert and oriented x3 HEENT normocephalic and head/scalp atraumatic Eyes General Eye: normal appearance of both eyes Neck no lymphadenopathy Resp clear to auscultation bilaterally Cardio regular rate, regular rhythm, S1 normal heart sound, S2 normal heart sound and peripheral pulses 2+ throughout Extremity no clubbing, cyanosis or edema Extremity Narrative: +brace L lower leg. 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 D-dimers was normal on 12/02/2014 so Eliquis was changed to 2.5mg bid by Dr. Duran. Clinically stable. Plan: Continue Eliquis 2.5mg bid indefinitely. F/u with PCP and referred if new problems arise. RTC PRN Clinical Quality Measures Falls Risk Screening/Assistive Devices Have you fallen in the past year?: Yes 03/04/25 1207 <Electronically signed by Galileo Gaitan> Date _ Galileo Ohara MD Cosigner Signature: Date (if applicable) CC: Dr. Phoenix Duran MD ~ [facility] Work Phone: [phone] 824-203605-15-2025 Radiology Diagnostic study note [facility] Imaging Services [address] [place], [place] [id number] Abdomen Limited MR#: [id number] Acct: [id number] Name: TEMO GARRISON Rep #: [id number] : 1940 M 84 From: Mateus Call MD PCP: Dr. Phoenix Duran MD Status: REG C ANASTACIO Study:Abdomen Limited Date of Exam: 02/13 03/09 Exam# [id number] Ordering Dr: David Badillo NETWORK CONTRACTOR-C PROCEDURE: ABDOMEN LIMITED 02/27/2025 REASON FOR EXAM: DIARRHEA, GAS, BLOAT COMPARISON: None FINDINGS: Liver: Diffusely echogenic suggesting fatty infiltration. Gallbladder: No stones, sludge, wall thickening or tenderness. Common bile duct: Normal measuring 3 mm . Pancreas: Visualized portions are unremarkable. The distal body and tail are obscured by bowel gas. Other: Right kidney is unremarkable. US/Abdomen Limited IMPRESSION: Sub visualized interesting due to large amount of bowel gas. Fatty infiltration of the liver. Reading Location: [id number] CC: ROCIO Badillo; Dr. Phoenix Duran MD ~ Manager Social Media: Signed [facility]05-13-2025 Radiology Diagnostic study note [facility] Imaging Services [address] [place] [id number] Abdomen Single View MR#: [id number] Acct: [id number] Name: TEMO GARRISON Rep #: [id number] : 1940 84 From: Aftab Leach MD PCP: Dr. Phoenix Duran MD Status: REG C ANASTACIO Study:Abdomen Single View Date of Exam: 02/24/25 Exam# [id number] Ordering Dr: David Badillo PROCEDURE: ABDOMEN SINGLE VIEW 02/24/2025 REASON FOR EXAM: DIARRHEA TECHNIQUE: Single view abdomen. 2 supine images to include the entire abdomen and pelvis COMPARISON: 01/03/2025 FINDINGS: Nonobstructive appearing bowel gas pattern. No gaseous distention of bowel. A few nondilated loops of small bowel in the left mid to lower abdomen with possible fold thickening which may represent enteritis. No evidence of mass effect. Lung bases appear clear. RAD/Abdomen Single View IMPRESSION: Nonobstructive appearing bowel gas pattern. No gaseous distention of bowel. A few nondilated loops of small bowel in the left mid to lower abdomen with possible fold thickening which may represent enteritis. Reading Location: [id number] CC: ROCIO Badillo; Dr. Phoenix Duran MD ~ Manager Social Media: Signed [facility]05-10-2025 NoteHNO ID: [id number] Author: CUCO MARQUEZ MD Service: ? Author Type: Physician Type: Progress Notes Filed: 02/22/2025 13:37 Note Text: [facility] Subjective Temo Garrison is a 84 year old male. Patient presents with: left ankle pain: Fell yesterday Left ankle pain: Duration: tripped on a root yesterday and sprained his ankle Location: lateral more than medial left ankle Character: aching and sharp Radiation: No. Aggravating: bending, standing, twisting, and walking Relieving: ice, knee scooter Pain relievers: none Associated: Hx of left leg DVTx3, new swelling Pertinent negatives: Denies numbness Review of Systems Objective BP 122/74 Pulse 87 Temp 37.5 ?C (99.5 ?F) (Tympanic) Resp 16 Wt 79.8 kg (176 lb) SpO2 97% BMI 26.76 kg/m? Physical Exam Constitutional: General: He is not in acute distress. Musculoskeletal: Comments: ANKLE: left. Swelling present over entire ankle. No erythema, ecchymosis, or deformity. Range of motion: inversion - painful, eversion - painful, anterior drawer- painful. unable to bear weight, uses knee scooter Palpation: Medial malleolus non-painful, lateral malleolus painful, Dorsal proximal midfoot - non-painful, proximal 5th metatarsal non-painful, posterior calcaneus non-painful Neurological: Mental Status: He is alert. {ASSESSMENT/PLAN: 1. Closed nondisplaced fracture of lateral malleolus of left fibula, initial encounter - ICD9: 824.2, ICD10: S82.65XA (primary diagnosis) 2. Acute left ankle pain - ICD9: 719.47, ICD10: M25.572 - XR ANKLE GENERAL 3V AP/LAT/OBL LEFT nondisplaced left ankle oblique fibular malleolus fracture. Radiology interpretation is pending. The patient will be notified if there is a significant finding in the report not discussed at the time of the visit. Patient reports he had a similar fracture on the right ankle requiring surgery. He has walking boots, walkers, knee scooter, and crutches if needed. Treat with nonweightbearing, walking boot, compression (Josh wrap applied), and as needed analgesia. He will follow-up with [facility] for suspected surgical fixture. Disc images may be obtained on Monday if need. Cuco Marquez MD Differential Diagnoses - Fibular fracture is more likely for the following reason(s): consistent with imaging Management I performed an independent interpretation of the following:imaging Imaging: My interpretation is X-ray results reviewed pending radiologist [facility]. [facility] History of Present illness Narrative* Cuco Marquez MD - 02/22/2025 12:04 PM EDT [facility] Subjective Temo Garrison is a 84 year old male. Patient presents with: left ankle pain: Fell yesterday Left ankle pain: Duration: tripped on a root yesterday and sprained his ankle Location: lateral more than medial left ankle Character: aching and sharp Radiation: No. Aggravating: bending, standing, twisting, and walking Relieving: ice, knee scooter Pain relievers: none Associated: Hx of left leg DVTx3, new swelling Pertinent negatives: Denies numbness Review of Systems Objective BP 122/74 Pulse 87 Temp 37.5 C (99.5 F) (Tympanic) Resp 16 Wt 79.8 kg (176 lb) SpO2 97% BMI 26.76 kg/m Physical Exam Constitutional: General: He is not in acute distress. Musculoskeletal: Comments: ANKLE: left. Swelling present over entire ankle. No erythema, ecchymosis, or deformity. Range of motion: inversion - painful, eversion - painful, anterior drawer- painful. unable to bear weight, uses knee scooter Palpation: Medial malleolus non-painful, lateral malleolus painful, Dorsal proximal midfoot - non-painful, proximal 5th metatarsal non-painful, posterior calcaneus non-painful Neurological: Mental Status: He is alert. {ASSESSMENT/PLAN: 1. Closed nondisplaced fracture of lateral malleolus of left fibula, initial encounter - ICD9: 824.2, ICD10: S82.65XA (primary diagnosis) 2. Acute left ankle pain - ICD9: 719.47, ICD10: M25.572 - XR ANKLE GENERAL 3V AP/LAT/OBL LEFT nondisplaced left ankle oblique fibular malleolus fracture. Radiology interpretation is pending. The patient will be notified if there is a significant finding in the report not discussed at the time of the visit. Patient reports he had a similar fracture on the right ankle requiring surgery. He has walking boots, walkers, knee scooter, and crutches if needed. Treat with nonweightbearing, walking boot, compression (Josh wrap applied), and as needed analgesia. He will follow-up with [facility] for suspected surgical fixture. Disc images may be obtained on Monday if need. Cuco Marquez MD Differential Diagnoses - Fibular fracture is more likely for the following reason(s): consistent with imaging Management I performed an independent interpretation of the following:imaging Imaging: My interpretation is X-ray results reviewed pending radiologist interpretation. [facility] History of Present illness Narrative* Julieth Collins RT(R) - 02/22/2025 11:50 AM EDT Radiology Service Progress Note PATIENT NAME: Temo Garrison DATE OF SERVICE: February 22, 2025 TIME: 12:06 PM PATIENT IDENTITY VERIFICATION COMPLETED USING TWO (2) IDENTIFIERS: Name and Date of confirmedby patient verbally. FALL SCREENING: Has the patient had 2 falls in the last year or 1 fall with injury or currently using an Ambulatory Assistive Device (Walker, Cane, Wheelchair, Crutches, etc.)? Yes, Patient High Riskfor Falls What interventions were put in place to prevent falls during this visit? Increased Observations by Caregivers PATIENT GENDER DATA: Assigned male at PATIENT RELEVANT IMPLANT DATA REVIEWED: Not Applicable PATIENT PRESENTS WITH AN IMPLANTABLE OR ATTACHED ENGLISH AND READING INSTRUCTOR: No RADIOLOGY DEPARTMENT: General X-ray: Exam(s) Completed: Lower Extremity X- Ray(s): Ankle, Left PERIPHERAL IV DATA: Not applicable SIGNED BY: RT Keyana(Schuyler) February 22, 2025 12:06 PM [facility] NoteHNO ID: [id number] Author: JULIETH COLLINS RT(R) Service: ? Author Type: Technologist Type: Progress Notes Filed: 02/22/2025 12:13 Note Text: Radiology Service Progress Note PATIENT NAME: Temo Garrison DATE OF SERVICE: February 22, 2025 TIME: 12:06 PM PATIENT IDENTITY VERIFICATION COMPLETED USING TWO (2) IDENTIFIERS: Name and Date of confirmed by patient verbally. FALL SCREENING: Has the patient had 2 falls in the last year or 1 fall with injury or currently using an Ambulatory Assistive Device (Walker, Cane, Wheelchair, Crutches, etc.)? Yes, Patient High Risk for Falls What interventions were put in place to prevent falls during this visit? Increased Observations by Caregivers PATIENT GENDER DATA: Assigned male at PATIENT RELEVANT IMPLANT DATA REVIEWED: Not Applicable PATIENT PRESENTS WITH AN IMPLANTABLE OR ATTACHED ENGLISH AND READING INSTRUCTOR: No RADIOLOGY DEPARTMENT: General X-ray: Exam(s) Completed: Lower Extremity X-Ray(s): Ankle, Left PERIPHERAL IV DATA: Not applicable SIGNED BY: RT Keyana(Schuyler) February 22, 2025 12:[address] [facility]03-27-2025 Radiology Diagnostic study note [facility] Imaging Services [address] [place] [address] L/S Spine Min 4 Views MR#: [id number] Acct: [id number] Name: TEMO GARRISON Rep #: [id number] : 1940 M 84 From: Aftab Leach MD PCP: Dr. Phoenix Duran MD Status: REG C ANASTACIO Study:L/S Spine Min 4 Views Date of Exam: 01/08/25 Exam# [id number] Ordering Dr: Phoenix Duran MD EXAM: L/S spine minimum four views CLINICAL HISTORY: Low back pain, unspecified COMPARISON: None available TECHNIQUE: Five views; AP, bilateral oblique, lateral and coned-down L5-S1 view FINDINGS: 5 uzw-svs-tjrrdrw lumbar vertebral type bodies identified. Appearance of slightleftward curvature. No acute fracture or malalignment. No spondylolysis identified. L2-3 spondylosis/discogenic change with moderate disc space narrowing, endplate changes and anterior osteophyte formation. Mild spondylosis/discogenic change at L3-4 with anterior osteophyte formation. Spondylosis/discogenic change with moderate disc space narrowing L5-S1 and apparent vacuum effect at the disc. Aortoiliac atherosclerotic calcifications. RAD/L/S Spine Min 4 Views IMPRESSION: Multilevel spondylosis/discogenic change as above. Reading Location: [id number] CC: Dr. Phoenix Duran MD ~ Manager Social Media: Signed [facility]03-21-2025 Radiology Diagnostic study note [facility] Imaging Services [address] [place] [address] Abdomen Single View MR#: [id number] Acct: [id number] Name: TEMO GARRISON Rep #: [id number] : 1940 M 84 From: Svetlana Mckeon MD PCP: Dr. Phoenix Duran MD Status: REG C ANASTACIO Study:Abdomen Single View Date of Exam: 01/03/25 Exam# [id number] Ordering Dr: Phoenix Duran MD EXAM: XR Abdomen, 2 Views CLINICAL INDICATION: DIARRHEA TECHNIQUE: Frontal view of the abdomen/pelvis with upright view of the abdomen. COMPARISON: No relevant prior studies available. FINDINGS: INTRAPERITONEAL SPACE: No free air. GASTROINTESTINAL TRACT: Unremarkable. No dilation. BONES/JOINTS: Unremarkable. No acute fracture. RAD/Abdomen Single View IMPRESSION: Nonobstructive bowel gas pattern. Reading Location[facility] CC: Dr. Phoenix Duran MD ~ Manager Social Media: Signed [facility]03-17-2025 Radiology Diagnostic study note [facility] Imaging Services [address] [place] [address] Abdomen Single View MR#: [id number] Acct: [id number] Name: TEMO GARRISON Rep #: [id number] : 1940 M 84 From: Darrell Hughes MD PCP: Dr. Phoenix Duran MD Status: REG C ANASTACIO Study:Abdomen Single View Date of Exam: 12/30/24 Exam# [id number] Ordering Dr: Phoenix uDran MD PROCEDURE: ABDOMEN SINGLE VIEW REASON FOR EXAM: IBS W/ DIARRHEA TECHNIQUE: Single view abdomen. COMPARISON: Abdomen study of 12/26/2024. FINDINGS: No excess stool burden is seen. Bowel gas pattern is normal. No evidence of bowel obstruction. No suspicious calcifications. The bones are unchanged. RAD/Abdomen Single View IMPRESSION: Unremarkable bowel-gas pattern. Reading Location: [address] CC: Dr. Phoenix Duran MD ~ Manager Social Media: Signed [facility]03-13-2025 Radiology Diagnostic study note [facility] Imaging Services [address] [place] [address] Chest PA and Lateral MR#: [id number] Acct: [id number] Name: TEMO GARRISON Rep #: [id number] : 1940 M 84 From: Svetlana Mckeon MD PCP: Dr. Phoenix Duran MD Status: REG C ANASTACIO Study:Chest PA and Lateral Date of Exam: 12/26/24 Exam# [id number] Ordering Dr: Phoenix Duran MD EXAM: XR Chest, 2 Views CLINICAL INDICATION: HX NICOTINE DEPENDENCE TECHNIQUE: Frontal and lateral views of the chest. COMPARISON: No relevant prior studies available. FINDINGS: LUNGS AND PLEURAL SPACES: Pulmonary venous congestion. No consolidation. No pneumothorax. HEART: Unremarkable. No cardiomegaly. MEDIASTINUM: Unremarkable. Normal mediastinal contour. BONES/JOINTS: Unremarkable. No acute fracture. TUBES, LINES AND DEVICES: Neurostimulator of the right lower lung field. RAD/Chest PA and Lateral IMPRESSION: Pulmonary venous congestion. Reading Location: [facility] CC: Dr. Phoenix Duran MD ~ Manager Social Media: Signed [facility]03-13-2025 Radiology Diagnostic study note [facility] Imaging Services [address] [place] [address] Abd Inc Decub and/or Erect MR#: [id number] Acct: [id number] Name: TEMO GARRISON Rep #: [id number] : 1940 M 84 From: Svetlana Mckeon MD PCP: Dr. Phoenix Duran MD Status: JUAN MIGUEL CHAVES Study:Abd Inc Decub and/or Erect Date of Exam : 12/26/24 Exam# [id number] Ordering Dr: Phoenix Duran MD EXAM: XR Abdomen, 1 View CLINICAL INDICATION: IRRITABLE BOWEL SYNDROME WITH DIARRHEA TECHNIQUE: Frontal supine view of the abdomen/pelvis. COMPARISON: No relevant prior studies available. FINDINGS: GASTROINTESTINAL TRACT: Fecal retention in the colon consistent with constipation. No dilation. BONES/JOINTS: Unremarkable. No acute fracture. RAD/Abd Inc Decub and/or Erect IMPRESSION: Fecal retention in the colon consistent with constipation. Reading Location: [facility] CC: Dr. Phoenix Duran MD ~ Manager Social Media: Signed [facility]02-24-2025 Evaluation note* Diagnosis Onset Date Resolution Status Admit Date Dvt femoral (deep venous thrombosis) chronic December 09, 2 025 11:04am Diarrhea acute February 24, 2025 3:29pm Dvt femoral (deep venous thrombosis) chronic March 04, 2025 1 1:24am Diarrhea acute March 07, 2025 9:23am Enteritis acute March 07, 2025 9:23am [facility] Work Phone: 1(218) 181-834101-21-2025 Evaluation note* Diagnosis Onset Date Resolution Status Admit Date Dvt femoral (deep venous thrombosis) chronic November 05 10:19am Blister of great toe, right, infected acute November 07 1:11pm Dvt femoral (deep venous thrombosis) chronic December 09, 2 025 11:04am [facility] Work Phone: 1(365) 259-884701-21-2025 Evaluation note* Diagnosis Onset Date Resolution Status Admit Date Dvt femoral (deep venous thrombosis) chronic November 05 10:19am Blister of great toe, right, infected acute November 07 1:11pm Dvt femoral (deep venous thrombosis) chronic December 09, 2 025 11:04am Diarrhea acute February 24, 2025 3:29pm [facility] Work Phone: 1(685) 353-489601-21-2025 Evaluation note* Diagnosis Onset Date Resolution Status Admit Date Dvt femoral (deep venous thrombosis) chronic November 05 10:19am Blister of great toe, right, infected acute November 07 1:11pm Dvt femoral (deep venous thrombosis) chronic December 09, 2 025 11:04am Diarrhea acute February 24, 2025 3:29pm Dvt femoral (deep venous thrombosis) chronic March 04, 2025 1 1:24am [facility] Work Phone: 1(226) 987-246112-24-2024 Evaluation note* Diagnosis Onset Date Resolution Status Admit Date History of deep vein thrombosis (DVT) of lower extremity acute October 08, 2 024 7:48am Left leg DVT acute September 7:48am Dvt femoral (deep venous thrombosis) chronic October 08, 2 024 11:20am Degenerative disc disease, lumbar acute October 22 9:24am Scoliosis noneactive October 22, 025 9:24am Strain of lumbar paraspinal muscle noneactive October 22 9:24am Dvt femoral (deep venous thrombosis) chronic November 05 10:19am Blister of great toe, right, infected acute November 07 1:11pm Dvt femoral (deep venous thrombosis) chronic December 09, 2 025 11:04am [facility] Work Phone: 1(869) 789-348712-10-2024 Evaluation note* Diagnosis Onset Date Resolution Status Admit Date Anemia acute September 24, 2024 9:43am Dvt femoral (deep venous thrombosis) chronic September 24, 2 024 9:43am History of deep vein thrombosis (DVT) of lower extremity acute October 08, 2 024 7:48am Left leg DVT acute September 7:48am Dvt femoral (deep venous thrombosis) chronic October 08, 2 024 11:20am Degenerative disc disease, lumbar acute October 22 9:24am Scoliosis noneactive October 22, 2 025 9:24am Strain of lumbar paraspinal muscle noneactive October 22 9:24am Dvt femoral (deep venous thrombosis) chronic November 05 10:19am Blister of great toe, right, infected acute November 07 1:11pm Dvt femoral (deep venous thrombosis) chronic December 09, 025 11:04am [facility] Work Phone: 1(895) 926-627210-24-2024 [facility]10-07-2024 [facility]03-21-2024 Progress note Author Aneesh Prado [facility] January 04, 2024 7:47am Note Date/Time January 04, 2024 7:4 7am [facility] Medical Records Department [address] [facility] [place] [address] Progress Note - Urology 01/04/24745 MR#: [id number] Acct: [id number] Name: TEMO GARRISON Rep #:[id number] : 1940 83 From: Aneesh Prado MD PCP: Dr. Malick Al MD Status:AVILA LUDWIG Location: CO3 DN224-1 Subjective Subjective Status post TURP urine is fairly clear DC [place] and patient can go home today without a catheter told the patient not to resume his Eliquis but he can take baby aspirin Objective Data Objective Data Vital Signs: Vital Signs Temp Pulse Resp BP Pulse Ox O2 Del Method O2 Flow Rate 98 F 83 16 129/58 H 96 Room Air 2 01/04/24 06:49 01/04/24 06:49 01/04/24 06:49 01/04/24 06:49 01/04/24 06:49 01/04/24 06:49 01/03/24 15:06 Oxygen Flow Rate (L/min) 2 Oxygen Delivery Method Room Air Weight: 86.636 kg Body Mass Index (BMI) 28.2 Intake & Output: Intake and Output for Last 24 Hours 01/02/24 01/03/24 01/04/24 23:59 23:59 23:59 Intake Total 1242.25 / 1242.25 50 / 50 Output Total 800 / 1400 600 / 600 Balance 442.25 / -157.75 -550 / -550 Lab / Micro Data Labs: Laboratory Results - last 24 hr 01/03/24 09:52: POC Glucose 96 01/03/24 14:07: POC Glucose 87 01/04/24 0747 <Electronically signed by Aneesh Prado MD> Cosigner Signature (if applicable): CC: ~ Signed [facility] Work Phone: 1(498) 412-490103-20-2024 Discharge summary Author Aneesh Prado [facility] January 03, 2024 12:43pm Note Date/Time January 03, 2024 12: 43pm [facility] Medical Records Department [address] [place] [address] Instructions for Home/Discharge Instructions 01/03/24 1242 MR#: [id number] Acct: [id number] Name: TEMO GARRISON Rep #:[id number] : 1940 83 From: Aneesh Prado MD PCP: Dr. Malick Al MD Status:RE [facility] Discharge Instructions Diet Discharge Diet: No restrictions Activity Discharge Activity: Return to Normal Activity and May Not Drive (while taking narcotic pain medications.) Dressing / Incision Call your doctor if you observe: Fever of 101 or Higher Follow Up Care Please Follow Up With: Aneesh Prado MD When: Call [phone] for an appointment Test Results: Test results from this visit will be discussed in further detail at your follow- up appointment, if applicable. Discharge Plan Admission Attending Provider: Aneesh Prado Primary Care Provider: Malick Al Discharge Orders/Prescriptions Prescriptions: No Action atorvastatin 20 mg tablet 20 mg PO DAILY ketoconazole 2 % shampoo 1 applic topical 2XW PRN (Reason: PRN) omeprazole 40 mg capsule,delayed release(DR/EC) 40 mg PO BID (DME) OneTouch Verio test strips Strip See Rx Instructions .ROUTE .MEDSUPPLY Rx Instructions: Check weekly Dupixent Pen 300 mg/2 mL pen injector 300 mg subcut QMONTH gabapentin 300 mg capsule 600 mg PO TID levothyroxine 50 mcg capsule 50 mcg PO DAILY pyridoxine (vitamin B6) 100 mg tablet 100 mg PO DAILY guaifenesin 200 mg tablet 200 mg PO BID folic acid 1 mg tablet 1 mg PO DAILY Qty: 30 5RF losartan 25 MG tablet 25 mg PO QHS Patient Comments: blood pressure duloxetine 60 MG capsule 60 mg PO BID Patient Comments: enhance mood cholecalciferol (vitamin D3) 25 mcg (1,000 unit) capsule 1,000 unit PO DAILY Patient Comments: vitamin,supplement ascorbate calcium (vitamin C) 500 mg tablet 1 g PO DAILY Eliquis DVT-PE Treat 30D Start 5 mg (74 tabs) tablets,dose pack 5 mg PO BID Qty: 74 0RF valacyclovir 1 gram tablet 2,000 mg PO BID Patient Comments: TAKE 1 TABLET BY MOUTH EVERY DAY cyanocobalamin (vitamin B-12) [Vitamin B-12] 1,000 mcg tablet 1,000 mcg PO DAILY tizanidine 4 mg tablet 4 mg PO QHS PRN (Reason: muscle spasticity/insomnia/leg restlessness) Rx Instructions: Take 1 to 2 tablets orally at bedtime PRN verapamil 120 mg tablet extended release 120 mg PO QAM Qty: 30 2RF Referrals / Follow Up: Malick Al MD [Primary Care Provider] - Disposition Disposition (needs filled in before D/C Order can be placed): Home, Self Care 01/03/24 1243<Electronically signed by Aneesh Prado MD>Aneesh Prado MD CC: Dr. Malick Al MD ~ Signed [facility] Work Phone: 1(460) 182-831603-20-2024 History and physical note Author Aneesh Eve [facility] January 03, 2024 11:34am Note Date/Time January 03, 2024 11: 34am [facility] Medical Records Department [address] [place] [address] History & Physical Exam 01/03/24 1134 MR#: [id number] Acct: [id number] Name: TEMO GARRISON Rep #:[id number] : 1940 83 From: Aneesh Prado MD PCP: Dr. Malick lA MD Status:[facility] Location: [place] [address] HPI - General General Date of Service: 01/03/24 Chief Complaint: BPH with obstruction HPI Narrative TEMO GARRISON, is a 83 M who presents for transurethral section of prostate for large obstructing prostate. [facility], [facility] Medical History (Updated 12/26/23 @ 09:30 by Krystle Marc) Alcohol abuse Alcohol use Ankle injury Arthritis Back pain Back pain Cancer Cardiology follow-up encounter Cataracts, bilateral Chest pain Chronic fatigue Chronic kidney disease, stage 3 Chronic pain Diabetes Diabetes mellitus Dietary restriction DVT (deep venous thrombosis) Encounter for screening for COVID-19 Essential hypertension Fatigue Fibromyalgia Former smoker Gastric reflux Gout High cholesterol History of DVT (deep vein thrombosis) History of echocardiogram History of Holter monitoring History of renal disease History of rheumatic fever History of stress test HTN (hypertension) Hx of fracture of ankle Hyperlipidemia Hypertriglyceridemia Injury of head and neck inspire device implant intracular lenses x2 Leg cramps Mixed hyperlipidemia ROSITA (obstructive sleep apnea) Osteoarthritis Passed out Prostate Tissues Raynaud disease Restless legs (Unknown) Skin cancer Squamous cell cancer of external ear Syncope and collapse Thinning of skin Thyroid disease Tilt table evaluation Type 2 diabetes mellitus Wears glasses Wears hearing aid Home Medications duloxetine 60 mg capsule,delayed release 60 mg PO BID depression 04/17/14 [History Last Taken 01/06/18] losartan 25 mg tablet 25 mg PO QHS blood pressure 04/17/14 [History Last Taken 01/03/24 08:00] atorvastatin 20 mg tablet 20 mg PO DAILY 06/04/21 [History Last Taken Unknown] cholecalciferol (vitamin D3) 25 mcg (1,000 unit) capsule 1,000 unit PO DAILY vitamin 07/28/22 [History Last Taken Unknown] blood sugar diagnostic (Tantalus SystemsTouch Verio test strips) 09/06/22 [History Last Taken Unknown] ketoconazole 2 % shampoo 1 applic topical 2XW PRN PRN 09/06/22 [History Last Taken Unknown] dupilumab 300 mg/2 mL subcutaneous pen injector ([place] [employer]) 300 mg subcut QMONTH 11/23/22 [History Last Taken Unknown] ascorbate calcium (vitamin C) 500 mg tablet 1 g PO DAILY 08/01/23 [History Last Taken Unknown] gabapentin 300 mg capsule 600 mg PO TID 08/01/23 [History Last Taken Unknown] levothyroxine 50 mcg capsule 50 mcg PO DAILY 08/01/23 [History Last Taken 01/03/24 08:00] pyridoxine (vitamin B6) 100 mg tablet 100 mg PO DAILY 08/01/23 [History Last Taken Unknown] folic acid 1 mg tablet 1 mg PO DAILY #30 tabs 08/03/23 [Rx Last Taken Unknown] guaifenesin 200 mg tablet 200 mg PO BID 08/03/23 [History Last Taken Unknown] omeprazole 40 mg capsule,delayed release 40 mg PO BID 08/03/23 [History Last Taken 01/03/24 08:00] apixaban 5 mg (74 tabs) tablets in a dose pack (Eliquis DVT-PE Treat 30D Start) 5 mg PO BID #74 tabs 08/27/23 [Rx Last Taken 12/31/23] verapamil 120 mg tablet,extended release 120 mg PO QAM #30 tabs 10/31/23 [Rx Last Taken Unknown] cyanocobalamin (vitamin B-12) 1,000 mcg tablet (Vitamin B-12) 1,000 mcg PO DAILY11/29/23 [History Last Taken Unknown] tizanidine 4 mg tablet 4 mg PO QHS PRN muscle spasticity/insomnia/leg restlessness 11/29/23 [History Last Taken 01/03/24 08:00] valacyclovir 1 gram tablet 2,000 mg PO BID 11/29/23 [History Last Taken Unknown] Allergy/AdvReac Type Severity Reaction Status Date / Time tamsulosin Allergy Severe Blacked Verified 01/03/24 09:42 out, Passed out meloxicam Allergy Unknown Decrease Verified 01/03/24 09:42 in kidney function alfuzosin HCl Allergy Unknown Verified 01/03/24 09:42 [From Uroxatral] ezetimibe [From Zetia] Allergy Pain in Verified 01/03/24 09:42 joints pramipexole di-HCl Allergy Other Verified 01/03/24 09:42 [From Mirapex] simvastatin [From Zocor] Allergy Pain in Verified 01/03/24 09:42 joints celecoxib [From Celebrex] AdvReac Unknown Unknown Verified 01/03/24 09:42 lisinopril AdvReac Other Verified 01/03/24 09:42 Family History Brother Myocardial infarction, Onset Age: 58 Sister Cancer Breast Grandfather Myocardial infarction Other Arthritis Breast cancer FH: defects Surgical History (Updated 12/26/23 @ 09:26 by Krystle Marc) H/O cataract removal with insertion of prosthetic lens History of esophagogastroduodenoscopy (EGD) History of repair of anterior cruciate ligament of left knee History of total right knee replacement (TKR) History of transurethral resection of prostate Hx of colonoscopy Social History Smoking Status: Former smoker alcohol intake: current alcohol intake frequency: 0-2 drinks per day details: 4-5 shots of [place] daily substance use type: does not use caffeine: Yes Type: coffee Number of servings: 3 what type of physical activity do you participate in: none Vital Signs Vital Signs Vital Signs: 01/03/24 09:46 01/03/24 09:46 Temperature 98.5 F Temperature Source Temporal Pulse Rate 66 Respiratory Rate 16 Respiratory Pattern Normal Blood Pressure 136/73 H Blood Pressure Mean 94 Blood Pressure Source Monitor Blood Pressure Position Semi-Fowlers Blood Pressure Location Right Arm Pulse Ox 100 Oxygen Delivery Method Room Air Weight Weight: 86.636 kg Body Mass Index (BMI) 28.2 Results Lab / Micro Data Labs: Laboratory Results - last 24 hr 01/03/24 09:52: POC Glucose 96 01/03/24 1134 <Electronically signed by Aneesh Prado MD> Cosigner Signature (if applicable): CC: Dr. Malick Al MD; Dr. Aneesh Prado MD~ Signed [facility] Work Phone: 1(861) 267-157803-20-2024 Procedure [facility] 09-25-2023 Discharge summary Author Jass Ch [facility] September 25, 2023 1:49pm Note Date/Time September 25, 2023 1:49pm [facility] Physical Therapy Health[address] [place] [address] / REHABILITATION SERVICES DISCHARGE SUMMARY MR#: [id number] Acct: [id number] Name: TEMO GARRISON Rep #: [id number] : 1940 82 From: Jass Ch PT, PAIGE, SCS, CSCS Referring DrDeanna: ROCIO Dong Status: REG RCR [facility] Discharge Summary D/C summary: It has been my pleasure to treat TEMO GARRISON referred by ROCIO Jacob, with the diagnosis of Left Hip Pain for a total of 9 visit(s). Discharge Date: 09/25/23 Please see the following information for a summary of their discharge status. Subjective Subjective: I wrote a letter to Dr Vickers to see if a cat scan for find out whatis going on with my back rib area. Pain Left rib pain: Pain Intensity (Out of 10): 2 Neck Pain (Chronic): Pain Intensity (Out of 10): 7 Overall Improvement % Improvement: 50 Objective Objective/Function: Subjectively his pain has decreased to a 2/10 for his left rib area. I tried to add rotation activities and trunk strengthening today buthe felt light headed. He thinks that a cat scan may help diagnosis his condition. Goals Goal 1:: Understand the HEP and return demo. SKC, DKC, side rotations in supine, seated forward flexion Goal Progress: Goal Met Goal 2:: Decrease pain to 4-5 via manual therapy techniques. Goal Progress: Goal Met Goal 3:: Initiate a dynamic strengthing program Goal Progress: Not Progressing Plan Plan: Discharge to physician for further evaluation D/C Information Discharge Comments: Pain is decreased to 2/10 for hip and 7/10 for neck and feels about 505 Better. Probably needs further dx to see if left rib pain related to OA or kidney referral as he has multiple systemic problems d/c sentence: If there are questions or concerns regarding this patient's physical therapy, please feel free to call me at [phone]. Thank you for the referral of thispatient. Sincerely, Jass Ch, PT, PAIGE, SCS, CSCS Balance/Gait/Functional tests Balance/Special Test Scores Lower Extremity Functional Score: 66 Improvement % Improvement: 50 <Electronically signed by Jass Ch PT, PAIGE, SCS, CSCS> 09/25/23 1345 CC: ROCIO Dong; Dr. Malick Al MD ~ Signed [facility] Work Phone: 1(239) 476-377111-29-2023 Miscellaneous Notes* Telephone Encounter - Dayanara Mandujano RN - 09/13/2023 10:15 AM EST Physician: Dr. Burton Call from patient requesting refill. Please E-Scribe 30-day supply. Last OV: 06/08/[address] Burton Future OV: None Scheduled Requested Prescriptions Pending Prescriptions Disp Refills omeprazole (PRILOSEC) 40 mg capsule 30 capsule 0 Sig: Take 1 capsule by mouth once daily. Pharmacy Name: [facility] Phone #: Dayanara Mandujano RN documented in this encounterClermont County Hospital08-24-2023 History of Present illness Narrative* Smith Burton MD - 06/08/2023 12:21 PM EDT FOLLOW UP VISIT - HEMORRHOID BANDING NAME: Temo Rajput [facility] NO.: [id number] DATE OF SERVICE: 06/08/2023 : 1940 REFERRING [...] an forceps without causing discomfort to the patient.A single band was deployed over the complex. [...] hemorrhoid sloughs at 3-5 days. Do not thataspirin for the next week. If you have significant bleeding or other problems, contact our office. Diagnoses: (K62.5) Bright red blood per rectum (primary encounter diagnosis) (K64.8) Hemorrhoids, internal Return to Clinic: The patient is instructed to follow-up with me in 1 month if persistent bleeding. Smith Burton MD documented in this encounterClermont County Hospital08-24-2023 Instructions* Patient Instructions* Urszula Quinn LPN - 06/08/2023 12:10 PM [...] 3-4 weeks for possible repeat banding if yoursymptoms have not resolved. If you have any questions or concerns please feel free to call our office at [phone] and ask to be transferred to General Surgery. [facility]. documented in this encounterClermont County Hospital08-24-2023 Nurse Note* Urszula Quinn LPN - 06/08/2023 12:09 PM EDT UNIVERSAL PROTOCOL / SAFETY CHECKLIST Procedure to [...] applicable. Urszula Quinn LPN documented in this encounterClermont County Hospital08-15-2023 History of Present illness Narrative* Marlon Chapin MD - 05/30/2023 1:00 PM EDT Chief Complaint Chief Complaint Patient presents with [...] for condition of interest EMG No Physical therapy/caregivers homecare Yes Occupational therapy No Acupuncture Yes, w/o [...] Cap DR Particles capsule DR Dupilumab (DUPIXENT IA) Inject under the skin every 14 days. [...] F (36.1 C) Ht 1.727 m (5' 8) Wt 80.7 kg (178 lb) SpO2 97% BMI 27.06 kg/m Smoking Status Some Days Myofas: Tenderness RHOMBOIDS, DELTOID, TRAPEZIUS, TRICEPS, LESS THE DORSAL FOREARM EXTENSORS. Psychiatric: Mood, memory, affect and judgment normal. Impression ICD-10-CM 1. Other chronic pain G89.29 Discussion and Plan I think GABAPENTIN has been helpful this past month for reduction of his fibromyalgia pain. If sideeffects are tolerated and if his improvement doesn't [...] and coordination of care. documented in this encounterOhioHealth Berger Hospital08-15-2023 Instructions* Patient Instructions* Marlon Chapin MD - 05/30/2023 1:00 PM EDT The device we talked about is called a Theracane. documented in this encounterOhioHealth Berger Hospital08-03-2023 Nurse Note* Jena Webb RN - 05/18/2023 3:17 PM EDT REVIEW OF SYSTEMS: General: The patient denies [...] 07/2020 Jena Webb RN documented in this encounterClermont County Hospital08-03-2023 History of Present illness Narrative* Belén Bernal PA-C - 05/18/2023 3:08 PM EDT HISTORY AND PHYSICAL Temo Garrison 1940 REFERRING [...] complaints. Has history of short-segment Small's without dysplasia,last EGD in 2021. Temo has undergone prior [...] Dr. Berry Chronic kidney disease, stage 3 ([facility]) Seeing Dr. Moss DDD (degenerative disc disease), cervical DDD (degenerative disc disease), lumbar Seeing Dr. Thayer Diarrhea Diverticulosis of colon (without mention of hemorrhage) DVT (deep venous thrombosis) ([facility]) 08/06/2020 Essential tremor External hemorrhoids without mention [...] complication, without long-term current use of insulin ([facility]) 06/07/[address] Owens Uveitis 2008 right [...] CAP TWICE A DAY ON DAY 2 ANDMOVING FORWARD. omeprazole (PRILOSEC) 40 mg capsule TAKE 1 CAPSULE DAILY DULoxetine (CYMBALTA) 60 mg capsule Take 60 mg by mouth twice daily. GUAIFENESIN ORAL Take 600 mg by mouth twice daily. lancets ([employer] DELScholarPRO LANCETS) 30 gauge misc Use as directed to test glucose 3 times weekly. DX:E11.9 dupilumab (DUPIXENT SUBCUTANEOUS) Inject subcutaneously as needed (taking every three weeks). 08/17/2021 reported taking every 3 weeks cyanocobalamin, vitamin B-12, (VITAMIN B-12 INJECTION) by INJECTION(UNSPECIFIED PARENTERAL ROUTES) route once every month. blood sugar diagnostic ([employer]) test strip USE ONE STRIP TO CHECK GLUCOSE ONCE DAILY losartan (COZAAR) 25 mg tablet TAKE 1 TABLET DAILY ketoconazole (NIZORAL) 2 % shampoo Apply 1 application to affected area once daily as needed. atorvastatin (LIPITOR) 20 mg tablet Take 1 tablet by mouth once daily. Blood-Glucose Meter ([employer] VERIO SYSTEM) misc Use as directed. Cholecalciferol, [...] aneurysm) Mother Ischemic Heart Disease Brother 58 MT Alcohol/Drug Brother Breast Cancer Sister Diabetes Maternal Grandmother Rheumatologic disease Maternal Grandfather Anesthesia Problems No Family History REVIEW OF SYMPTOMS: The review of systems data was entered by the nurse and reviewed by nv Nursing Notes: Jena Webb RN 05/18/2023 3:22 [...] C (97.3 F), height 172.7 cm (5' 8), weight 81.6 kg (180 lb), SpO2 99 %. Body mass index is 27.37 kg/m . HEENT: Normal cephalic, ataumatic, pupils are equally round, sclera are anicteric, mucous membranesare moist, oropharynx is clear. Neck has no [...] My staff has also explained the procedure tothe patient in understandable terms and has given [...] mail. Belén Bernal PA-C documented in this encounterClermont County Hospital05-05-2023 Miscellaneous Notes* Telephone Encounter - Robyn Duke RN - 02/17/2023 2:[address] Baron, Patient has never seen you in the office, nor have you done a procedure on him. Not sure why this refill is being sent to you. Please advise. Robyn Duke RN documented in this encounterClermont County Hospital05-03-2023 Miscellaneous Notes* Telephone Encounter - Katherine Gao - 02/15/2023 6:30 PM EDT First attempt to reach patient. No VM left. Katherine Gao February 15, 2023 6:30 PM documented in this encounterClermont County Hospital03-14-2023 Procedure [facility]02-24-[address] Mehta [facility] 2022 9:42am Note Date/Time 2022 9:42am [facility] Medical Records Department [address] [place] [address] Telemedicine Confirmation Receipt 12/09/22 MR#: [id number] Acct: [id number] Name: TEMO GARRISON Rep #:[id number] : 1940 82 From: Mat Mehta MD PCP: Dr. Monserrat Wilson MD Status:REG CLI [facility] has confirmed receipt of a request for visit. This document confirms receipt of the order initiating the consult. To find the results of the consultation, please view the patient's reports for the scanned Telemed Consult. [facility] Work Phone: 1([phone]) 289-152412-02-2022 Miscellaneous Notes* Telephone Encounter - Julia Ramirez Ma - 09/16/2022 4:19 PM EST Patient phones requesting refills as follows: Requested Prescriptions Pending Prescriptions Disp Refills omeprazole (PRILOSEC) 40 mg capsule [Pharmacy Med Name: OMEPRAZOLE DR CAPS 40MG] 90 capsule 0 Sig: TAKE 1 CAPSULE DAILY Please review and advise. Julia Ramirez Ma documented in this encounterClermont County Hospital11-14-2022 Miscellaneous Notes* Telephone Encounter - Carol Tran APRN.CNP - 08/29/2022 12:52 PM EST Returned patient's call left message. For ongoing [...] least invest in a wedge pillow. Carol * Telephone Encounter - Idania Kapadia - 08/26/2022 3:36 PM EST Patient calling stating his GERD has gotten worse x 2-3 wks. Patient stating he is taking Omeprozole along with over the counter med that his PCP suggest with little to no relief. [facility] [place] advise and call patient. documented in this encounterClermont County Hospital08-19-2022 History of Present illness Narrative* Gayle Carrera RT(R) - 06/03/2022 10:00 AM EDT Radiology Service Progress Note PATIENT NAME: Temo Garrison DATE OF SERVICE: June 03, 2022 TIME: 10:01 AM PATIENT IDENTITY VERIFICATION COMPLETED USING TWO (2) IDENTIFIERS: Name and Date of confirmedby patient verbally. FALL SCREENING: Has the patient had 2 falls in the last year or 1 fall with injury or currently using an Ambulatory Assistive Device (Walker, Cane, Wheelchair, Crutches, etc.)? No PATIENT GENDER DATA: Male PATIENT RELEVANT IMPLANT DATA REVIEWED: Not Applicable RADIOLOGY DEPARTMENT: General X-ray: Exam(s) Completed: Lower Extremity X- Ray(s): Tibia Fibula, Right and Ankle, Right PERIPHERAL IV DATA: Not applicable SIGNED BY: RT Chan(R) June 03, 2022 10:01 AM documented in this encounterClermont County Hospital03-23-2022 History of Present illness Narrative* Carol Tran APRN.RN CARDIOVASCULAR ICU - 01/05/2022 9:25 AM EDT VIRTUAL VISIT FOLLOW UP I had a [...] Dr. Berry Chronic kidney disease, stage 3 ([facility]) Seeing Dr. Moss DDD (degenerative disc disease), cervical DDD (degenerative disc disease), lumbar Seeing Dr. Thayer Diarrhea Diverticulosis of colon (without mention of hemorrhage) DVT (deep venous thrombosis) ([facility]) 08/06/2020 Essential tremor External hemorrhoids without mention [...] complication, without long-term current use of insulin ([facility]) 06/07/[address] Owens Uveitis 2008 right [...] aneurysm) Mother Ischemic Heart Disease Brother 58 MT Alcohol/Drug Brother Breast Cancer Sister Diabetes Maternal [...] mg by mouth daily at bedtime. lancets ([employer] DELICA LANCETS) 30 gauge misc Use as directed to test glucose 3 times weekly. DX:E11.9 100 Each 3 cyanocobalamin, vitamin B-12, (VITAMIN B-12 INJECTION) by INJECTION(UNSPECIFIED PARENTERAL ROUTES) route once every month. sitaGLIPtin (JANUVIA) 50 mg tablet Take 1 tablet by mouth once daily. 90 tablet 3 blood sugar diagnostic ([employer] VERIO) test strip USE ONE STRIP TO [...] tablet 1 Blood-Glucose Meter (ONETOUCH VERIO SYSTEM) [facility] Use as directed. 1 Each 0 Cholecalciferol, [...] with more than 50% of the total [id number] time of the visit in counseling / coordination of care. I have confirmed and edited as necessary, the PFSH and ROS obtained by others. Carol Tran APRN.RN CARDIOVASCULAR ICU January 05, 2022 9:48 AM documented in this encounterClermont County Hospital03-22-2022 Miscellaneous Notes* Telephone Encounter - Danya Garvey LPN - 01/04/2022 11:44 AM EDT Patient scheduled for a follow up 01/05/22 * Telephone Encounter - Danya Garvey LPN - 12/29/2021 9:03 AM EDT Please review and advise: FINAL DIAGNOSIS A. Antrum, biopsy: - Antral mucosa with foveolar hyperplasia and minimal chronic inflammation; no evidence of H. pylori. B. Esophagus, biopsy: - Fundic mucosa with minimal chronic inflammation; no evidence of intestinal metaplasia or dysplasia. C. Esophagus, biopsy: Inflamed squamous and cardiac-type mucosa with focal intestinal metaplasia; negative for dysplasia. * Telephone Encounter - Allyn Capps RN - 12/24/2021 10:58 AM EST Temo had an EGD completed by Dr. Smith Burton on 12/13/2021. He will need a follow up appointment with Carol Tran CNP ro review the biopsy result. Allyn Capps RN * Telephone Encounter - Shakeel Farias - 12/06/2021 3:12 PM EST patient stated he has not had any bleeding seine he called. Does not think this was necessary will call and schedule banding if needed in the future * Telephone Encounter - Shakeel Farias - 12/03/2021 1:23 PM EST Left message. Gave direct number to call me back Shakeel Farias * Telephone Encounter - Shakeel Farias - 11/25/2021 3:02 PM EST patient called stated he was having issues with a bleeding hemorrhoid has not had problems with them for several years and then all of a sudden just appeared. the last 3 or 4 days seem to be better but wanted to know if there is anything he needs to do, if he should be seen ? * Telephone Encounter - Saranya Mccullough RN - 11/19/2021 3:19 PM EST Patient calling to ask if EGD is still scheduled on 12/13 at [facility]? He states he has not received any instructions and wants to make sure he does not miss anything. Advised patient general surgery staff would contact him when they return to the office on 11/22/21. He verbalized understanding. documented in this encounterClermont County Hospital01-05-2022 History of Present illness Narrative* I saw Mr. Pisano today on a [...] able to walk 1200 feet in 6 minuteswith no oxygen desaturation. He did need to stop on 2 occasions with this walk. * Patient denies any cough or sputum production and no wheezing. He denies a dyspnea with daily activities. -Pulmonary Medicine-[place] [address] DO Work Phone: 1([phone]) 389-338001-03-2022 History of Present illness Narrative* I saw Mr. Pisano today on a [...] able to walk 1200 feet in 6 minuteswith no oxygen desaturation. He did need to stop on 2 occasions with this walk. * Patient denies any cough or sputum production and no wheezing. He denies a dyspnea with daily activities. -[facility] [address] Work Phone: 1(170) 166-713012-30-2021 History of Present illness Narrative* I saw Mr. Pisano today on a [...] able to walk 1200 feet in 6 minuteswith no oxygen desaturation. He did need to stop on 2 occasions with this walk. * Patient denies any cough or sputum production and no wheezing. He denies a dyspnea with daily activities. -[facility] [address] DO Work Phone: 1(907) 717-578811-18-2021 History of Present illness Narrative* This is 80-year-old male who I was [...] also had a inspire inserted in 2017 [facility]. He reports that in the last [...] less than or equal 88% was 9 minutes. 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 [facility] [address] [employer] DO Work Phone: 1(121) 956-661111-18-2021 History of Present illness Narrative* This is 80-year-old male who I was [...] and also had a inspire inserted in 2016 [facility]. He reports that in the last [...] less than or equal 88% was 9 minutes. 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 [facility] [address] [employer] DO Work Phone: 1(323) 737-728410-05-2021 History of Present illness Narrative* The patient has [...] [facility] The patient's Amberg Sleepiness Scale score today was 4. The [...] a vengeance and wake him from sleep. [facility] Work Phone: 1([phone]) 471-967210-01-2021 History of Present illness Narrative* Mr. TEMO GARRISON is presenting for inspire eval- existing implant * The patient was kindly referred by Malick Weber * I personally reviewed the referring provider's note dated 07/16/21 * Multifactorial sleep issues- rosita, rls * Very restless sleeper * Was started on Requip * Currently using OAT for ROSITA * Has inspire device which was implanted at [facility] * Sleeps from 930 (up to 20 min SL) until 830 * Baseline AHI 55 (2013 study [facility]) * Study with OAT in place showed AHI 24.4 * Noted he had device set for 45 min delay and a sense that it would come on with a vengeance * Does not appear that device was interrogated or adjusted at that visit * Has had sleep issues his whole life - thinks over 50 years * Really only started assessing it about 10 min ago * 2 CPAPs * One bipap * every mask in the known universe * Had TE CA by report * Had Inspire * The whole time he has had it, it woke him from sleep as soon as it came on * In late 2017- early 2018 he threw in the towel with his Inspire * Got OAT as his next step * Now has been using that about 6 months * Sleeps 10.5 -11 hours * Sleeps 06/25 - 830 * 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 TEMO GARRISON is presenting for inspire eval- existing implant * The patient was kindly referred by Malick Weber * I personally reviewed the referring provider's note dated 07/16/21 * Multifactorial sleep issues- rosita, rls * Very restless sleeper * Was started on Requip * Currently using OAT for ROSITA * Has inspire device which was implanted at [facility] * Sleeps from 930 (up to 20 min SL) until 830 * Baseline AHI 55 (2013 study [facility]) * Study with OAT in place showed AHI 24.4 * Noted he had device set for 45 min delay and a sense that it would come on with a vengeance * Does not appear that device was interrogated or adjusted at that visit * Has had sleep issues his whole life - thinks over 50 years * Really only started assessing it about 10 min ago * 2 CPAPs * One bipap * every mask in the known universe * Had TE CA by report * Had Inspire * The whole time he has had it, it woke him from sleep as soon as it came on * In late 2017- early 2018 he threw in the towel with his Inspire * Got OAT as his next step * Now has been using that about 6 months * Sleeps 10.5 -11 hours * Sleeps 9/10 - 830 * 400 lb gorilla fights him every night- this is different from his restless legs * Also has RLS on requip dose is being adjusted upwards * We pulled multiple inspire cloud reports today * He was not yet in the system * Was on Bipolar Summer 2016 - 3.3 (2.9-3.6) with default PW and rate * Left on off minus off, 2.0 (1.8-2.6) [...] PLAN TO USE WITH OAT IN PLACE IF-[facility] [address] [place] Work Phone: 1(612) 738-701710-01-2021 History of Present illness Narrative* The patient has [...] [facility]. The patient's Amberg Sleepiness Scale score today was 4. The [...] a vengeance and wake him from sleep. [facility] [address] Work Phone: 1([phone]) 226-587302-10-2017 History of Past illness Narrative* Problem Noted [...] of this encounter (statuses as of 01/04/2022) [facility] of Past illness Narrative* Problem [...] Umbilical and Left Inguinal Chronic kidney disease 02/10/201 7 documented as of this encounter (statuses as of 01/05/2022) [facility] History of Past illness Narrative* Problem [...] of this encounter (statuses as of 05/15/2022) [facility] of [facility] illness Narrative* Problem [...] of this encounter (statuses as of 08/30/2022) [facility] of [facility] illness Narrative* Problem [...] of this encounter (statuses as of 09/19/2022) [facility] of [facility] Narrative* Problem [...] of this encounter (statuses as of 02/16/2023) [facility] of [facility] Narrative* Problem [...] of this encounter (statuses as of 02/17/2023) [facility] Narrative* Problem [...] of this encounter (statuses as of 05/29/2023) [facility] of [facility] illness Narrative* Problem [...] of this encounter (statuses as of 06/08/2023) [facility] Narrative* Problem [...] of this encounter (statuses as of 09/14/2023) [facility] History of Present illness Narrative* From a previous note from Dr. 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 * Naps: Patient Does [...] act out of dream. No nightmares. -Sleep Medicine-[place] [address] DO Work Phone: 1(942) 839-188502-07-2016 History of Present illness Narrative* From a previous note from Dr. 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 * Naps: Patient Does [...] act out of dream. No nightmares. [facility] [address] Work Phone: 1(240) [phone] History of Present illness Narrative* From a previous note from Dr. 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 * Naps: Patient Does [...] act out of dream. No nightmares. -[facility] [address] DO Work Phone: 1(157) 917-337103-04-2015 History of Present illness Narrative* Mr. 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 * Naps: Patient Does [...] act out of dream. No nightmares. -Pul Sleep-[place] [address] DO Work Phone: chief complaint Narrative [...] * Virtual visit. Follow up on sleep. [facility] [address] Work Phone: chief complaint Narrative - [...] * Virtual visit. Follow up on sleep. [facility] Work Phone: chief complaint Narrative - [...] * Virtual visit. Follow up on sleep. [facility] Work Phone: chief complaint Narrative - Reported* TEMO GARRISON is here for an initial evaluation. * Reason for Visit: Nocturnal Hypoxemia. * Appointment requested by: Dr. Weber; PCP: Dr. Wilson. [facility] [address] DO Work Phone: chief complaint Narrative - Reported* TEMO GARRISON is here for an initial evaluation. * Reason for Visit: Nocturnal Hypoxemia. * Appointment requested by: Dr. Weber; PCP: Dr. Wilson. [facility] [place] [address] DO Work Phone: chids complaint Narrative - Reported* TEMO GARRISON is here for an initial evaluation. * Reason for Visit: Nocturnal Hypoxemia. * Appointment requested by: Dr. Weber; PCP: Dr. Wilson. -[facility] [address] DO Work Phone: consult note Author Regi Harris [facility] January 04, 2024 10:44am Note Date/Time January 04, 2024 10: 42am [facility] Medical Records Department [address] [place] [address] Counseling Note - Pharmacy 01/04/24 1041 MR#: [id number] Acct: [id number] Name: TEMO GARRISON Rep #:[id number] : 1940 83 From: Regi Harris PCP: Dr. Malick Al MD Status:AD M VANI Y Location: [place] [address] Pharmacy [facility] has performed discharge medication reconciliation and counseling for this patient. The patient's discharge medication list was reviewed for discrepancies and discrepancies were resolved. The patient was counseled on the following discharge medications and changes in medications for homegoing were reviewed. 1. KELD The Reason for Use, instructions for use, and potential side effects were reviewed for all new medications. The patient's questions regarding all of their medications were answered. The patient was able to verbally demonstrate an understanding of their dischargemedications. Medications at Discharge Home Medications duloxetine 60 mg capsule,delayed release 60 mg PO BID depression 04/17/14 losartan 25 mg tablet 25 mg PO QHS blood pressure 04/17/14 atorvastatin 20 mg tablet 20 mg PO DAILY 06/04/21 cholecalciferol (vitamin D3) 25 mcg (1,000 unit) capsule 1,000 unit PO DAILY vitamin 07/28/22 blood sugar diagnostic (OneTouch Verio test strips) 09/06/22 ketoconazole 2 % shampoo 1 applic topical 2XW PRN PRN 09/06/22 dupilumab 300 mg/2 mL subcutaneous pen injector (Dupixent) 300 mg subcut QMONTH 11/23/22 ascorbate calcium (vitamin C) 500 mg tablet 1 g PO DAILY 08/01/23 gabapentin 300 mg capsule 600 mg PO TID 08/01/23 levothyroxine 50 mcg capsule 50 mcg PO DAILY 08/01/23 pyridoxine (vitamin B6) 100 mg tablet 100 mg PO DAILY 08/01/23 folic acid 1 mg tablet 1 mg PO DAILY #30 tabs 08/03/23 guaifenesin 200 mg tablet 200 mg PO BID 08/03/23 omeprazole 40 mg capsule,delayed release 40 mg PO BID 08/03/23 apixaban 5 mg (74 tabs) tablets in a dose pack (Eliquis DVT-PE Treat 30D Start) 5 mg PO BID #74 tabs 08/27/23 verapamil 120 mg tablet,extended release 120 mg PO QAM #30 tabs 10/31/23 cyanocobalamin (vitamin B-12) 1,000 mcg tablet (Vitamin B-12) 1,000 mcg PO DAILY11/29/23 tizanidine 4 mg tablet 4 mg PO QHS PRN muscle spasticity/insomnia/leg restlessness 11/29/23 cephalexin 500 mg capsule 500 mg PO BID #10 caps 01/03/24 01/04/24 1044 <Electronically signed by Regi Harris > Date _ Regi Mcneilligner Signature (if applicable): Date CC: ~ Signed [facility] Work Phone: Evaluation note* Diagnosis History of Small's esophagus- Primary [facility] information available[facility] Work Phone: Evaluation note* Diagnosis Onset Date Resolution Status Essential hypertension acute Mixed hyperlipidemia acute Syncope and collapse acute [facility] Work Phone: Evaluation note* Diagnosis Onset Date Resolution Status Essential hypertension acute Mixed hyperlipidemia acute Syncope and collapse chronic Essential hypertension acute Fatigue acute Mixed hyperlipidemia acute Syncope and collapse chronic [facility] Work Phone: Evaluation note* Diagnosis Onset Date Resolution Status Essential hypertension acute Fatigue acute Mixed hyperlipidemia acute Syncope and collapse chronic Absent pedal pulses acute Polyneuropathy chronic Raynaud disease chronic Syncope and collapse chronic [facility] Work Phone: Evaluation note* Diagnosis Onset Date Resolution Status Essential hypertension chron ic Fatigue chronic Mixed hyperlipidemia chronic Syncope and collapse chronic Absent pedal pulses acute Polyneuropathy chronic Raynaud disease chronic Syncope and collapse chronic Essential hypertension chron ic Fatigue chronic Mixed hyperlipidemia chronic Syncope and collapse chronic [facility] Work Phone: Evaluation note* Diagnosis Onset Date Resolution Status Absent pedal pulses acute Polyneuropathy chronic Raynaud disease chronic Syncope and collapse chronic Essential hypertension chron ic Fatigue chronic Mixed hyperlipidemia chronic Syncope and collapse chronic [facility] Work Phone: Evaluation note* Diagnosis Bright red blood per rectum- Primary Hemorrhage of rectum and anus Hemorrhoids, internal Internal hemorrhoids without mention of complication [facility] Other chronic [facility] Diagnosis Bright red blood per rectum- Primary Hemorrhage of rectum and anus Hemorrhoids, internal Internal hemorrhoids without mention of complication [facility] Diagnosis Onset Date Resolution Status Essential hypertension chron ic Fatigue chronic Mixed hyperlipidemia chronic Syncope and collapse resolve d Polyneuropathy chronic Raynaud disease chronic Restless legs chronic Syncope and collapse resolve d Back pain acute [facility] Work Phone: Evaluation note* Diagnosis Preop examination- Primary Preoperative examination, [...] apnea Acute cough documented in this encounter [facility] note* Diagnosis Preop examination- Primary Preoperative examination, [...] hypertension Mixed hyperlipidemia Treatment-emergent central sleep apnea Closed nondisplaced fracture of lateral malleolus of left fibula, initial encounter- Primary Acute left ankle pain Acute left ankle pain documented in this encounter [facility] note* Diagnosis Preop examination- Primary Preoperative examination, [...] Mixed hyperlipidemia Treatment-emergent central sleep apnea Acute left ankle pain [facility]* The [facility] has [...] [facility]'s Amberg Sleepiness Scale score today was 4. The [...] a vengeance and wake him from sleep. [facility] Work Phone: Hospital Discharge instructions Additional Instructions See preprinted instructions from your surgeon's office. Implant Used?: YesWTriHealth Work Phone: Reason for referral (narrative)No reason for referral information availableWTriHealth Work Phone: Reason for visit Narrative* Diagnostic Procedure Only (Urgent) - Closed Specialty Diagnoses / Procedures Referred By Contac t Referred To Contact XR IMAGING Diagnoses Lower extremity injury, right, initial encounter Procedures XR ANKLE GENERAL 3V AP/LAT/OBL RIGHT RADEX ANKLE COMPLETE MINIMUM 3 VIEWS Joe Goodwin APRN.RN CARD[facility]OV[facility]ULAR ICU [address] [place] [address] [place] [address] Referral ID Status Reason Start Date Expiration Date V isits Requested Visits Authorized [id number] Closed Auto-Generate d Referral 06/03/2022 07/03/2023 1 [facility] Diagnostic Procedure Only (Urgent) - Closed Specialty Diagnoses / Procedures Referred By Contac t Referred To Contact XR IMAGING Diagnoses Acute left ankle pain Procedures XR ANKLE GENERAL 3V AP/LAT/OBL LEFT RADEX ANKLE COMPLETE MINIMUM 3 VIEWS Cuco Marquez MD [address] [place] [address] Phone: tel: fax: [place] [address] Referral ID Status Reason Start Date Expiration Date V isits Requested Visits Authorized [id number] Closed Auto-Generate d Referral 02/22/2025 03/24/2026 1 1 [facility] Summary Purpose Family History No Family History [...] history: Maternal Relatives, Paternal Relatives(V49.89, Z78.9) Status:Active Relationship Condition Age at Onset Recorded Date/T catrachita Not Specified Family history of defect Unknown Arthritis Unknown Malignant neoplasm of breast Unknown Relationship Condition Age at Onset Recorded Date/T catrachita Not Specified Family history of defect Unknown Arthritis Unknown Malignant neoplasm of breast Unknown brother Myocardial infarction 58 sister Malignant neoplasm Unknown grandfather Myocardial infarction Unknown Unknown Family Member Name Dates Details No pertinent family history: Maternal Relatives, Paternal Relatives(V49.89, Z78.9) Status:Active Unknown Family Member Name Dates Details No pertinent family history: Maternal Relatives, Paternal Relatives(V49.89, Z78.9) Status:Active Unknown Family Member Name Dates Details No pertinent family history: Maternal Relatives, Paternal Relatives(V49.89, Z78.9) Status:Active Advance Directives No Advanced Directives Records FoundDocuments on File Type Date 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 Advance Directive(s) 12/13/2021 9:35 AM Advance Directive(s) 08/10/2020 7:21 AM M dorian infusion Advance Directive(s) 08/10/2020 7:20 AM Advance Directive(s) 08/03/2020 1:49 PM Advance Directive(s) 11/23/2016 9:39 AM Advance Directive(s) 11/22/2016 9:26 AM Advance Directive(s) 05/24/2016 1:39 PM Advance Directive(s) 12/13/2011 12:00 AM Advance Directive(s) 12/01/2006 12:00 AM Advance Directive Response Recorded Date/ Time Name of Medical Power of Brand Director May 09, 2022 10:11am Advance Directives Yes May 12 10:38am Living Will Yes May 09, 2022 10:11am Power of Brand Director Yes May 09 10:11am Advance Directive Response Recorded Date/ Time Name of Medical Power of Brand Director May 09, 2022 10:11am Name of Medical Power of Brand Director . May 12, 2022 4:12pm Advance Directives Yes May 12 10:38am Living Will Yes May 12, 2022 4:12pm Power of Brand Director Yes May 12 4:12pm Advance Directive Response Recorded Date/ Time Name of Medical Power of Brand Director May 09, 2022 10:11am Name of Medical Power of Brand Director . May 12, 2022 4:12pm Name of Medical Power of Brand Director June 14, 2022 2:14pm Advance Directives Yes May 12 10:38am Living Will Yes June 14 2:14pm Power of Brand Director Yes June 14 2:14pm Advance Directive Response Recorded Date/ Time Name of Medical Power of Brand Director May 09, 2022 9:11am Name of Medical Power of Brand Director . 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 Advance Directive(s) 08/10/2020 7:20 AM Advance Directive(s) 12/13/2011 Advance Directive(s) 12/01/2006 Advance Directive Response Recorded Date/ Time Advance Directives Yes May 12 9:38am Living Will Yes June 14 1:14pm Power of Brand Director Yes June 14 022 1:14pm Advance Directive Response Recorded Date/ Time Advance Directives Yes May 12 10:38am Living Will Yes June 14 2:14pm Power of Brand Director Yes June 14 022 2:14pm Advance Directive Response Recorded Date/ Time Advance Directives Yes May 12 9:38am Living Will No August 27 023 9:45am Power of Brand Director No August 27, 2023 9:45am Advance Directive Response Recorded Date/ Time Name of Medical Power of Brand Director Candi schaffer January 03, 2024 2:49pm Advance Directives Yes May 12 10:38am Living Will Yes January 03, 2024 2:49pm Power of Brand Director Yes January 02 2:49pm Documents on File Type Date 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 * Reason for Visit: PFT, ABG, SST. * Appointment requested by: Dr. Weber; PCP: Gertrude Wilson. * TEMO GARRISON is here for a follow-up visit. * Reason for Visit: PFT, ABG, SST. * Appointment requested by: Dr. Weber; PCP: Gerrtude Wilson. * TEMO GARRISON is here for a follow-up visit. * Reason for Visit: PFT, ABG, SST. * Appointment requested by: Dr. Weber; PCP: Gertrude Wilson. NPV-[email or web address].NPV-[email or web address]. Chief Complaint and Reason for Visit Chief Complaint RPW SELF PAY. FALL Chief Complaint RPW SELF PAY. FALL BACK Chief Complaint RPW SELF PAY. FALL BACK SYNCOPE Chief Complaint RPW SELF PAY. FALL BACK SYNCOPE RT ANKLE MALLELOUS ORIF Chief Complaint FALL BACK SYNCOPE RT ANKLE MALLELOUS ORIF DROP ATTACKS, SYNCOPE Amb Documentation SYNCOPE/REF. MIEDEL Reason for Visit Essential hypertensi on Mixed hyperlipidemia Syncope and collapse Chief Complaint FALL BACK SYNCOPE RT ANKLE MALLELOUS ORIF DROP ATTACKS, SYNCOPE Amb Documentation SYNCOPE/REF. MIEDEL SYNCOPE Syncope Reason for Visit Essential hypertensi on Mixed hyperlipidemia Syncope and collapse Chief Complaint FALL BACK SYNCOPE RT ANKLE MALLELOUS ORIF DROP ATTACKS, SYNCOPE Amb Documentation SYNCOPE/REF. MIEDEL SYNCOPE Syncope SYNCOPE Reason for Visit Essential hypertensi on Mixed hyperlipidemia Syncope and collapse Chief Complaint Amb Documentation SYNCOPE/REF. MIEDEL SYNCOPE Syncope SYNCOPE 6 wk FU Reason for Visit Essential hypertensi on Mixed hyperlipidemia Syncope and collapse Essential hypertension Fatigue Mixed hyperlipidemia Syncope and collapse Chief Complaint SYNCOPE 6 wk FU Syncope/COLLAPSED SYNCOPE AND COLLAPSE Reason for Visit Essential hypertensi on Fatigue Mixed hyperlipidemia Syncope and collapse Absent pedal pulses Polyneuropathy Raynaud disease Syncope and collapse Chief Complaint 6 wk FU Syncope/COLLAPSED SYNCOPE AND COLLAPSE SYNCOPE AND COLLAPSE SYNCOPE AND COLLAPSE 4 m fu Reason for Visit Essential hypertensi on Fatigue Mixed hyperlipidemia Syncope and collapse Absent pedal pulses Polyneuropathy Raynaud disease Syncope and collapse Essential hypertension Fatigue Mixed hyperlipidemia Syncope and collapse Chief Complaint Syncope/COLLAPSED SYNCOPE AND COLLAPSE SYNCOPE AND COLLAPSE SYNCOPE AND COLLAPSE 4 m fu SYNCOPE Reason for Visit Absent pedal pulses Polyneuropathy Raynaud disease Syncope and collapse Essential hypertension Fatigue Mixed hyperlipidemia Syncope and collapse Chief Complaint 6-9 MO F/U 4 mo fu LEFT SIDED FLANK PAIN Reason for Visit Essential hypertensi on Fatigue Mixed hyperlipidemia Syncope and collapse Polyneuropathy Raynaud disease Restless legs Syncope and collapse Back pain Chief Complaint 6-9 MO F/U 4 mo fu LEFT SIDED FLANK PAIN Localized swelling, mass and lump, trunk left leg Reason for Visit Essential hypertensi on Fatigue Mixed hyperlipidemia Syncope and collapse Polyneuropathy Raynaud disease Restless legs Syncope and collapse Back pain Chief Complaint 6-9 MO F/U 4 mo fu LEFT SIDED FLANK PAIN Localized swelling, mass and lump, trunk left leg LEFT HIP PAIN / RX HERE Reason for Visit Essential hypertensi on Fatigue Mixed hyperlipidemia Syncope and collapse Polyneuropathy Raynaud disease Restless legs Syncope and collapse Back pain Chief Complaint 6-9 MO F/U 4 mo fu LEFT SIDED FLANK PAIN Localized swelling, mass and lump, trunk left leg LEFT HIP PAIN / RX HERE EORDER- RIBS- LEFT Reason for Visit Essential hypertensi on Fatigue Mixed hyperlipidemia Syncope and collapse Polyneuropathy Raynaud disease Restless legs Syncope and collapse Back pain Chief Complaint 6-9 MO F/U 4 mo fu LEFT SIDED FLANK PAIN Localized swelling, mass and lump, trunk left leg LEFT HIP PAIN / RX HERE EORDER- RIBS- LEFT PVD, BILAT FOOT PAIN Reason for Visit Essential hypertensi on Fatigue Mixed hyperlipidemia Syncope and collapse Polyneuropathy Raynaud disease Restless legs Syncope and collapse Back pain Chief Complaint 6-9 MO F/U 4 mo fu LEFT SIDED FLANK PAIN Localized swelling, mass and lump, trunk left leg LEFT HIP PAIN / RX HERE EORDER- RIBS- LEFT PVD, BILAT FOOT PAIN LOCALIZED SWELLING Reason for Visit Essential hypertensi on Fatigue Mixed hyperlipidemia Syncope and collapse Polyneuropathy Raynaud disease Restless legs Syncope and collapse Back pain Chief Complaint LEFT HIP PAIN / RX H ERE EORDER- RIBS- LEFT PVD, BILAT FOOT PAIN LOCALIZED SWELLING EKG FO SURGICAL CLEARANCE Transurethral Resection of Prostate Chief Complaint Admit Date [facility](DR MIXON?) September 24 9:43am LT LEG SWELLING, HX DVT October 04 10:52am DISCUSS VENOUS DUPLEX RESULTS September 162023 7:48am [facility] October 08, 2024 11:20am LUMBAR SPINE October 22, 2024 9: 24am Room 2 October 22, 2024 9: 44am LEFT LOWER October 28, 2024 3 :45pm [facility] November 05, 2024 1 0:19am CONCERN FOR BLISTER ON TOE November 07, 2024 1:11pm CHRONIC KIDNEY DISEASE, STAGE 3A y 2024 12:09pm MED ONC December 02, 2024 10:08am [facility] 2024 11:04am Irritable bowel syndrome with diarrhea M arch 2024 1:08pm AAA December 30, 2024 8:0 0am Diarrhea January 03, 2025 10: 14am Reason for Visit Admit Date Anemia September 24, 2024 9:43am Dvt femoral (deep venous thrombosis) Dec ember 2023 9:43am History of deep vein thrombosis (DVT) of lower extremity October 08, 2024 7:48am Left leg DVT October 08, 2024 7:48am Dvt femoral (deep venous thrombosis) Dec ember 2023 11:20am Degenerative disc disease, lumbar Octuar y 2024 9:24am Scoliosis October 22, 2024 9: 24am Strain of lumbar paraspinal muscle Janua ry 2024 9:24am Dvt femoral (deep venous thrombosis) [facility] 2024 10:19am Blister of great toe, right, infected Ja nuary 2024 1:11pm Dvt femoral (deep venous thrombosis) Feb ruary 2024 11:04am Chief Complaint Admit Date [facility](DR MIXON?) September 24 9:43am LT LEG SWELLING, HX DVT October 04, 024 10:52am DISCUSS VENOUS DUPLEX RESULTS September 162023 7:48am [facility] October 08, 2024 11:20am LUMBAR SPINE October 22, 2024 9: 24am Room 2 October 22, 2024 9: 44am LEFT LOWER October 28, 2024 3 :45pm [facility] November 05, 2024 1 0:19am CONCERN FOR BLISTER ON TOE November 07, 2024 1:11pm CHRONIC KIDNEY DISEASE, STAGE 3A 2024 12:09pm MED ONC December 02, 2024 10:08am [facility] 2024 11:04am Irritable bowel syndrome with diarrhea arch 2024 1:08pm AAA December 30, 2024 8:0 0am Diarrhea January 03, 2025 10: 14am Low back pain, unspecified January 08, 2 025 10:53am Chief Complaint Admit Date [facility](DR MIXON?) September 24 9:43am LT LEG SWELLING, HX DVT October 04 024 10:52am DISCUSS VENOUS DUPLEX RESULTS September 162023 7:48am [facility] October 08, 2024 11:20am LUMBAR SPINE October 22, 2024 9: 24am Room 2 October 22, 2024 9: 44am LEFT LOWER October 28, 2024 3 :45pm [facility] November 05, 2024 1 0:19am CONCERN FOR BLISTER ON TOE November 07, 2024 1:11pm CHRONIC KIDNEY DISEASE, STAGE 3A uar y 2024 12:09pm MED ONC December 02, 2024 10:08am [facility] 2024 11:04am Irritable bowel syndrome with diarrhea M arch 2024 1:08pm AAA December 30, 2024 8:0 0am Diarrhea January 03, 2025 10: 14am Low back pain, unspecified January 08 025 10:53am CKD January 15, 2025 11:1 0am STOOL DROPOFF January 17, 2025 10:1 7am Chief Complaint Admit Date LT LEG SWELLING, HX DVT October 04 10:52am DISCUSS VENOUS DUPLEX RESULTS September 162023 7:48am [facility] October 08, 2024 11:20am LUMBAR SPINE October 22, 2024 9: 24am Room 2 October 22, 2024 9: 44am LEFT LOWER October 28, 2024 3 :45pm [facility] November 05, 2024 1 0:19am CONCERN FOR BLISTER ON TOE November 07, 2024 1:11pm CHRONIC KIDNEY DISEASE, STAGE 3A uar y 2024 12:09pm MED ONC December 02, 2024 10:08am [facility] 2024 11:04am Irritable bowel syndrome with diarrhea M arch 2024 1:08pm AAA December 30, 2024 8:0 0am Diarrhea January 03, 2025 10: 14am Low back pain, unspecified January 08, 025 10:53am CKD January 15, 2025 11:1 0am STOOL DROPOFF January 17, 2025 10:1 7am Reason for Visit Admit Date History of deep vein thrombosis (DVT) of lower extremity October 08, 2024 7:48am Left leg DVT October 08, 2024 7:48am Dvt femoral (deep venous thrombosis) Dec ember 2023 11:20am Degenerative disc disease, lumbar Octuar y 2024 9:24am Scoliosis October 22, 2024 9: 24am Strain of lumbar paraspinal muscle Janua ry 2024 9:24am Dvt femoral (deep venous thrombosis) [facility] 2024 10:19am Blister of great toe, right, infected [facility] 2024 1:11pm Dvt femoral (deep venous thrombosis) Feb ruary 2024 11:04am Chief Complaint Admit Date LEFT LOWER October 28, 2024 3 :45pm [facility] November 05, 2024 1 0:19am CONCERN FOR BLISTER ON TOE November 07, 2024 1:11pm CHRONIC KIDNEY DISEASE, STAGE 3A 2024 12:09pm MED ONC December 02, 2024 10:08am [facility] 2024 11:04am Irritable bowel syndrome with diarrhea M arch 2024 1:08pm AAA December 30, 2024 8:0 0am Diarrhea January 03, 2025 10: 14am Low back pain, unspecified January 08, 2 025 10:53am CKD January 15, 2025 11:1 0am STOOL DROPOFF January 17, 2025 10:1 7am Reason for Visit Admit Date Dvt femoral (deep venous thrombosis) [facility] 2024 10:19am Blister of great toe, right, infected [facility] 2024 1:11pm Dvt femoral (deep venous thrombosis) Feb ruary 2024 11:04am Chief Complaint Admit Date [facility] November 05, 2024 1 0:19am CONCERN FOR BLISTER ON TOE November 07, 2024 1:11pm CHRONIC KIDNEY DISEASE, STAGE 3A uar y 2024 12:09pm [facility] 2024 11:04am Irritable bowel syndrome with diarrhea arch 2024 1:08pm AAA December 30, 2024 8:0 0am Diarrhea January 03, 2025 10: 14am Low back pain, unspecified January 08, 2 025 10:53am CKD January 15, 2025 11:1 0am STOOL DROPOFF January 17, 2025 10:1 7am Diarrhea February 24, 2025 3:29p m E-ORDER February 24, 2025 4:29p m MED ONC February 27, 2025 9:24a m BLOATING,GAS,Diarrhea, unspecified February 132024 9:32am Reason for Visit Admit Date Dvt femoral (deep venous thrombosis) [facility] 2024 10:19am Blister of great toe, right, infected Ja nuary 2024 1:11pm Dvt femoral (deep venous thrombosis) Feb ruary 2024 11:04am Diarrhea February 24, 2025 3:29p m Chief Complaint Admit Date [facility] November 05, 2024 1 0:19am CONCERN FOR BLISTER ON TOE November 07, 2024 1:11pm CHRONIC KIDNEY DISEASE, STAGE 3A uar y 2024 12:09pm [facility] 2024 11:04am Irritable bowel syndrome with diarrhea [facility] 2024 1:08pm AAA December 30, 2024 8:0 0am Diarrhea January 03, 2025 10: 14am Low back pain, unspecified January 08, 2 025 10:53am CKD January 15, 2025 11:1 0am STOOL DROPOFF January 17, 2025 10:1 7am Diarrhea February 24, 2025 3:29p m E-ORDER February 24, 2025 4:29p m MED ONC February 27, 2025 9:24a m BLOATING,GAS,Diarrhea, unspecified February 132024 9:32am [facility] March 04, 2025 11:24 am Reason for Visit Admit Date Dvt femoral (deep venous thrombosis) [facility] 2024 10:19am Blister of [place], right, [place] 1:11pm Dvt femoral (deep venous thrombosis) Feb ruary 2024 11:04am Diarrhea February 24, 2025 3:29p m Dvt femoral (deep venous thrombosis) March 04, 2025 11:24am Chief Complaint Admit Date CHRONIC KIDNEY DISEASE, STAGE 3A y 2024 12:09pm [facility] 2024 11:04am Irritable bowel syndrome with diarrhea M arch 2024 1:08pm AAA December 30, 2024 8:0 0am Diarrhea January 03, 2025 10: 14am Low back pain, unspecified January 08, 2 025 10:53am CKD January 15, 2025 11:1 0am STOOL DROPOFF January 17, 2025 10:1 7am Diarrhea February 24, 2025 3:29p m E-ORDER February 24, 2025 4:29p m MED ONC February 27, 2025 9:24a m BLOATING,GAS,Diarrhea, unspecified February 132024 9:32am [facility] March 04, 2025 11:24 am Test Result March 07, 2025 9:23a m INT ORDER March 12, 2025 3:27p m Reason for Visit Admit Date Dvt femoral (deep venous thrombosis) Fe ruary 2024 11:04am Diarrhea February 24, 2025 3:29p m Dvt femoral (deep venous thrombosis) March 04, 2025 11:24am Diarrhea March 07, 2025 9:23a m Enteritis March 07, 2025 9:23a m Chief Complaint Admit Date [facility] 2024 11:04am Irritable bowel syndrome with diarrhea [facility] 2024 1:08pm AAA December 30, 2024 8:0 0am Diarrhea January 03, 2025 10: 14am Low back pain, unspecified January 08, 2 025 10:53am CKD January 15, 2025 11:1 0am STOOL DROPOFF January 17, 2025 10:1 7am Diarrhea February 24, 2025 3:29p m E-ORDER February 24, 2025 4:29p m MED ONC February 27, 2025 9:24a m BLOATING,GAS,Diarrhea, unspecified February 132024 9:32am [facility] March 04, 2025 11:24 am Test Result March 07, 2025 9:23a m INT ORDER March 12, 2025 3:27p m Diarrhea March 25, 2025 4:18 pm Chief Complaint Admit Date [facility] 2024 11:04am Irritable bowel syndrome with diarrhea M arch 2024 1:08pm AAA December 30, 2024 8:0 0am Diarrhea January 03, 2025 10: 14am Low back pain, unspecified January 08, 2 025 10:53am CKD January 15, 2025 11:1 0am STOOL DROPOFF January 17, 2025 10:1 7am Diarrhea February 24, 2025 3:29p m E-ORDER February 24, 2025 4:29p m MED ONC February 27, 2025 9:24a m BLOATING,GAS,Diarrhea, unspecified February 132024 9:32am [facility] March 04, 2025 11:24 am Test Result March 07, 2025 9:23a m INT ORDER March 12, 2025 3:27p m Diarrhea March 25, 2025 4:[address] test results April 01, 2025 2:41 pm Additional Source Comments (unrecognized sect ion and content) No Status Records FoundNo Status Records FoundNo Status Records FoundNo Status Records FoundNo Status Records FoundNo Status Records FoundNo Status Records FoundNo Status Records FoundNo Status Records FoundNo Status Records FoundNo Status Records Found INFORMATION SOURCE (unrecogn ized section and content) DATE CREATED AUTHOR 04/06/2018 [facility] DATE CREATED AUTHOR AUTHOR'S ORGANIZ ATION 04/10/2018 [facility] ([place] DATE CREATED AUTHOR AUTHOR'S ORGANIZ ATION 10/13/2018 [facility] DATE CREATED AUTHOR AUTHOR'S ORGANIZ ATION [facility]/06[facility]2021 [facility] DATE CREATED AUTHOR AUTHOR'S ORGANIZ ATION 10/03/2021 [facility] DATE CREATED AUTHOR AUTHOR'S ORGANIZ ATION 12/15/2021 [facility] DATE CREATED AUTHOR AUTHOR'S ORGANIZ ATION 02/28/2023 [facility] DATE CREATED AUTHOR AUTHOR'S ORGANIZ ATION 02/28/2023 [facility] DATE CREATED AUTHOR AUTHOR'S ORGANIZ ATION 06/03/2023 [facility] DATE CREATED AUTHOR AUTHOR'S ORGANIZ ATION 02/23/2025 [facility] DATE CREATED AUTHOR AUTHOR'S ORGANIZ ATION 04/06/2025 [facility] Reason for Visit (unrecogniz ed section and [...] chronic pain Malick Al MD [address] [place] [address] [facility] [address] [place] [address] Referral ID Status Reason Start Date Expiration Date V isits Requested Visits Authorized [id number] New Request 04/11/2023 05/05/2024 1 1 Reason Comments Procedure BANDING Reason Onset Date Comments Refill Request 09/13/2023 Reason Comments left ankle pain Fell yesterday Source Comments (unrecognize d section and content) In the event this informatio n is protected by the Federal Confidentiality of Alcohol and Drug Abuse Patient Records regulations: The Federal rules restrict any use of the information to criminally investigate or prosecute any alcohol or drug abuse patient.[facility] the event this information is protected by the Federal Confidentiality of Alcohol and Drug Abuse Patient Records regulations: The Federal rules restrict any use of the information to criminally investigate or prosecute any alcohol or drug abuse patient.[facility] the event this information is protected by the Federal Confidentiality of Alcohol and Drug Abuse Patient Records regulations: The Federal rules restrict any use of the information to criminally investigate or prosecute any alcohol or drug abuse patient.[facility] the event this information is protected by the Federal Confidentiality of Alcohol and Drug Abuse Patient Records regulations: The Federal rules restrict any use of the information to criminally investigate or prosecute any alcohol or drug abuse patient.[facility] the event this information is protected by the Federal Confidentiality of Alcohol and Drug Abuse Patient Records regulations: The Federal rules restrict any use of the information to criminally investigate or prosecute any alcohol or drug abuse patient.[facility] the event this information is protected by the Federal Confidentiality of Alcohol and Drug Abuse Patient Records regulations: The Federal rules restrict any use of the information to criminally investigate or prosecute any alcohol or drug abuse patient.[facility] the event this information is protected by the Federal Confidentiality of Alcohol and Drug Abuse Patient Records regulations: The Federal rules restrict any use of the information to criminally investigate or prosecute any alcohol or drug abuse patient.[facility] the event this information is protected by the Federal Confidentiality of Alcohol and Drug Abuse Patient Records regulations: The Federal rules restrict any use of the information to criminally investigate or prosecute any alcohol or drug abuse patient.[facility] the event this information is protected by the Federal Confidentiality of Alcohol and Drug Abuse Patient Records regulations: The Federal rules restrict any use of the information to criminally investigate or prosecute any alcohol or drug abuse patient.[facility] the event this information is protected by the Federal Confidentiality of Alcohol and Drug Abuse Patient Records regulations: The Federal rules restrict any use of the information to criminally investigate or prosecute any alcohol or drug abuse patient.[facility] the event this information is protected by the Federal Confidentiality of Alcohol and Drug Abuse Patient Records regulations: The Federal rules restrict any use of the information to criminally investigate or prosecute any alcohol or drug abuse patient.[facility] the event this information is protected by the Federal Confidentiality of Alcohol and Drug Abuse Patient Records regulations: The Federal rules restrict any use of the information to criminally investigate or prosecute any alcohol or drug abuse patient.[facility] the event this information is protected by the Federal Confidentiality of Alcohol and Drug Abuse Patient Records regulations: The Federal rules restrict any use of the information to criminally investigate or prosecute any alcohol or drug abuse patient.[facility] the event this information is protected by the Federal Confidentiality of Alcohol and Drug Abuse Patient Records regulations: The Federal rules restrict any use of the information to criminally investigate or prosecute any alcohol or drug abuse patient.[facility] Care Teams (unrecognized sec tion and content) Diabetes Clinical Manager Relationship Specialty Start Date End Date Monserrat Wilson [address] [place] [address] PCP - General Family Practice 06/26/18 Diabetes Clinical Manager Relationship Specialty Start Date End Date Monserrat Wilson [address] [place] [address] PCP - General Family Practice 06/26/18 Diabetes Clinical Manager Relationship Specialty Start Date End Date Monserrat Wilson [address] [place] [address] PCP - General [facility] Practice 06/26/18 Diabetes Clinical Manager Relationship Specialty Start Date End Date Monserrat Wilson [address] [place] [address] PCP - General Family Medicine 06/26/18 Diabetes Clinical Manager Relationship Specialty Start Date End Date Monserrat Wilson [address] [place] [address] PCP - General Family Medicine 06/26/18 Team Status: Active Member Role Status Dates Dr. Monserrat Wilson MD Family Provider Active Dr. Monserrat Wilson MD Primary Care Provider Active Team Status: Inactive Member Role Status Dates Dr. Monserrat Wilson MD Primary Care Provider, [facility] Provider Active Dr. Wilner Poe MD Attending Provider Active Team Status: Active Member Role Status Dates Dr. Monserrat Wilson MD Primary Care Provider Active Elena Martin Attending Provider Active Team Status: Inactive Member Role Status Dates Dr. Monserrat Wilson MD Primary Care Provider, Referrin g Provider Active Malick [place] NETWORK CONTRACTOR, NETWORK CONTRACTOR-C Attending Provider Active Team Status: Active Member Role Status Dates Dr. Monserrat Wilson MD Primary Care Provider Active Dr. Wilner Poe MD Attending Provid er, Referring Provider, Other Provider Active Team Status: Active Member Role Status Dates Dr. Monserrat Wilson MD Primary Care Provider Active Dr. Markie Mixon MD Attending Provider Active Dr. Wilner Poe MD Referring Provider Active Team Status: Inactive Member Role Status Dates Dr. Monserrat Wilson MD Primary Care Provider Active Dr. Wilner Poe MD Attending Provider, Referring Provider Active Team Status: Inactive Member Role Status Dates Dr. Monserrat Wilson MD Primary Care Provider Active Dr. Refugio Haynes MD Attending Provider, Referri ng Provider Active Team Status: Inactive Member Role Status Dates Dr. Monserrat Wilson MD Primary Care Provider, Attendin g Provider Active Team Status: Inactive Member Role Status Dates Dr. Monserrat Wilson MD Primary Care Provider, Referrin g Provider Active Dr. Mat Mehta MD Attending Provider Active Team Status: Active Member Role Status Dates Dr. Monserrat Wilson MD Primary Care Provider Active Dr. Markie Mixon MD Attending Provider Active Team Status: Inactive Member Role Status Dates Dr. Monserrat Wilson MD Primary Care Provider Active Dr. Mat Mehta MD Attending Provider, Referring Provider Active Team Status: Active Member Role Status Dates Dr. Monserrat Wilson MD Primary Care Provider Active Dr. Mat Mehta MD Referring Provider, Other Pro vider Active Dr. Wilner Poe MD Attending Provider Active Diabetes Clinical Manager Relationship Specialty Start Date End Date Monserrat Wilson MD [address] [place], [place] [id number] PCP - General Family Medicine 06/26/18 Diabetes Clinical Manager Relationship Specialty Start Date End Date Monserrat Wilson MD [address] [place], [place] [id number] PCP - General Family Medicine 06/26/18 Team Status: Active Member Role Status Dates Dr. Monserrat Wilson MD Family Provider Active Dr. Malick Al MD Primary Care Provider Active Team Status: Active Member Role Status Dates Dr. Monserrat Wilson MD Primary Care Provider Active Dr. Markie Mixon MD Attending Provider Active Dr. Mat Mehta MD Referring Provider Active Team Status: Inactive Member Role Status Dates Dr. Mat Mehta MD Attending Provider, Referring Provider Active Dr. Malick Al MD Primary Care Provider Active Team Status: Active Member Role Status Dates Dr. Malick Al MD Primary Care Provider, Attend ing Provider Active Diabetes Clinical Manager Relationship Specialty Start Date End Date Malick Al [address] [facility] [facility] [address] [place] [address] PCP - General Family Medicine 05/18/23 Diabetes Clinical Manager Relationship Specialty Start Date End Date Malick Al MD [address] [facility] [place], [place] [address] PCP - General Family Medicine 05/18/23 Team Status: Inactive Member Role Status Dates Dr. Monserrat Wilson MD Referring Provider Active Malick [place] NETWORK CONTRACTOR, NETWORK CONTRACTOR-C Attending Provider Active Dr. Malick Al MD Primary Care Provider Active Team Status: Inactive Member Role Status Dates Dr. Malick Al MD Primary Care Provider, Referr ing Provider Active Dr. Mat Mehta MD Attending Provider Active Team Status: Inactive Member Role Status Dates Dr. Malick Al MD Primary Care Provider, Referr ing Provider Active Shelby GARCÍA PA Attending Provider Active Team Status: Inactive Member Role Status Dates Dr. Malick Al MD Primary Care Provider, Attend ing Provider Active Team Status: Inactive Member Role Status Dates Dr. Malick Al MD Primary Care Provider Active Dr. Refugio Haynes MD Attending Provider, Referri ng Provider Active Team Status: Inactive Member Role Status Dates Dr. Malick Al MD Primary Care Provider Active Dr. Rachid Shultz DO Emergency Provider Active Team Status: Active Member Role Status Dates Dr. Malick Al MD Primary Care Pr ovider, Attending Provider, Referring Provider Active Team Status: Active Member Role Status Dates Dr. Malick Al MD Primary Care Provider Active Dr. Markie Mixon MD Attending Provider Active Team Status: Inactive Member Role Status Dates Dr. Malick Al MD Primary Care Provider Active Dr. Rachid Shultz DO Attending Provider, Emergency P betsey Active Team Status: Inactive Member Role Status Dates Dr. Malick Al MD Primary Care Pr ovider, Attending Provider, Referring Provider Active Team Status: Active Member Role Status Dates Dr. Malick Al MD Primary Care Provider Active ROCIO Jacob Attending Provider Active Diabetes Clinical Manager Relationship Specialty Start Date End Date Malick Al MD [address] [facility] [address] [place] [address] PCP - General Family Medicine 05/18/23 Team Status: Active Member Role Status Dates Dr. Malick Al MD Primary Care Provider Active Dr. Markie Mixon MD Attending Provider Active Dr. Rachid Shultz DO Referring Provider Active Team Status: Inactive Member Role Status Dates Dr. Malick Al MD Primary Care Provider Active ROCIO Jacob Attending Provider Active Team Status: Active Member Role Status Dates Dr. Malick Al MD Primary Care Provider Active Dr. Joe Naranjo DPM Attending Provider, Referring Provider Active Team Status: Inactive Member Role Status Dates Dr. Malick Al MD Primary Care Provider Active Dr. Joe Naranjo DPM Attending Provider, Referring Provider Active Team Status: Active Member Role Status Dates Dr. Malick Al MD Primary Care Provider Active Dr. Markie Mixon MD Attending Provider Active Dr. Joe Naranjo DPM Referring Provider Active Team Status: Inactive Member Role Status Dates Dr. Malick Al MD Primary Care Provider, Referr ing Provider Active [place] NPC Attending Provider Active Team Status: Inactive Member Role Status Dates Dr. Malick Al MD Primary Care Provider, Referr ing Provider Active Dr. Aneesh Prado MD Admit Provider, Attending Provider Active Diabetes Clinical Manager Relationship Specialty Start Date End Date Malick Al MD [address] [place], [place] [address] PCP - General Family Medicine 05/18/23 Diabetes Clinical Manager Relationship Specialty Start Date End Date Monserrat Wilson MD [address] [place] [address] [place], [place] [id number] PCP - General Family Medicine 06/26/18 05/17/23 Team Status: Active Member Role Status Dates Dr. Phoenix Duran MD Primary Care Provider Active Team Status: Inactive Member Role Status Dates Dr. Malick Al MD Primary Care Provider Active Start: September 24, 2024 End: September 24, 2024 Dr. Malick Al MD Referring Provider Active Start: September 24, 2024 End: September 24, 2024 Dr. Galileo Ohara MD Attending Provider Active S tart: September 24, 2024 End: September 24, 2024 Team Status: Inactive Member Role Status Dates Dr. Malick Al MD Primary Care Provider Active Start: October 04, 2024 End: October 04, 2024 RAQUEL Monge Attending Provider Active Star t: October 04, 2024 End: October 04, 2024 RAQUEL Monge Referring Provider Active Star t: October 04, 2024 End: October 04, 2024 Team Status: Active Member Role Status Dates Dr. Malick Al MD Primary Care Provider Active Start: October 04, 2024 Dr. Markie Mixon MD Attending Provider Active S tart: October 04, 2024 RAQUEL Monge Referring Provider Active Star t: October 04, 2024 Team Status: Inactive Member Role Status Dates Dr. Malick Al MD Primary Care Provider Active Start: October 08, 2024 End: October 08, 2024 Dr. Malick Al MD Referring Provider Active Start: October 08, 2024 End: October 08, 2024 RAQUEL Monge Attending Provider Active Star t: October 08, 2024 End: October 08, 2024 Team Status: Inactive Member Role Status Dates Dr. Malick Al MD Primary Care Provider Active Start: October 08, 2024 End: October 08, 2024 Dr. Malick Al MD Referring Provider Active Start: October 08, 2024 End: October 08, 2024 Dr. Galileo Ohara MD Attending Provider Active S tart: October 08, 2024 End: October 08, 2024 Team Status: Inactive Member Role Status Dates Dr. Malick Al MD Primary Care Provider Active Start: October 22, 2024 End: October 22, 2024 Dr. Malick Al MD Referring Provider Active Start: October 22, 2024 End: October 22, 2024 RAQUEL Coleman Attending Provider Active Star t: October 22, 2024 End: October 22, 2024 Team Status: Inactive Member Role Status Dates Dr. Malick Al MD Primary Care Provider Active Start: October 22, 2024 End: October 22, 2024 Dr. Fred Denis MD Attending Provider Active S tart: October 22, 2024 End: October 22, 2024 Team Status: Inactive Member Role Status Dates Dr. Malick Al MD Primary Care Provider Active Start: October 28, 2024 End: October 28, 2024 RAQUEL Malone Attending Provider Active St art: October 28, 2024 End: October 28, 2024 RAQUEL Malone Referring Provider Active St art: October 28, 2024 End: October 28, 2024 Team Status: Active Member Role Status Dates Dr. Malick Al MD Primary Care Provider Active Start: October 28, 2024 Dr. Markie Mixon MD Attending Provider Active S tart: October 28, 2024 RAQUEL Malone Referring Provider Active St art: October 28, 2024 Team Status: Inactive Member Role Status Dates Dr. Malick Al MD Primary Care Provider Active Start: November 05, 2024 End: November 05, 2024 Dr. Malick Al MD Referring Provider Active Start: November 05, 2024 End: November 05, 2024 Dr. Galileo Ohara MD Attending Provider Active S tart: November 05, 2024 End: November 05, 2024 Team Status: Inactive Member Role Status Dates Dr. Malick Al MD Primary Care Provider Active Start: November 07, 2024 End: November 07, 2024 Dr. Malick Al MD Referring Provider Active Start: November 07, 2024 End: November 07, 2024 RAQUEL Mendieta Attending Provider Active Sta rt: November 07, 2024 End: November 07, 2024 Team Status: Inactive Member Role Status Dates Dr. Phoenix Duran MD Primary Care Provider Active Start: November 14, 2024 End: November 14, 2024 Dr. Refugio Haynes MD Attending Provider Active Start: November 14, 2024 End: November 14, 2024 Dr. Refugio Haynes MD Referring Provider Active Start: November 14, 2024 End: November 14, 2024 Team Status: Inactive Member Role Status Dates Dr. Phoenix Duran MD Primary Care Provider Active Start: November 26, 2024 End: November 26, 2024 Dr. Refugio Haynes MD Attending Provider Active Start: November 26, 2024 End: November 26, 2024 Dr. Refugio Haynes MD Referring Provider Active Start: November 26, 2024 End: November 26, 2024 Team Status: Active Member Role Status Dates Dr. Malick Al MD Primary Care Provider Active Start: December 02, 2024 Dr. Galileo Ohara MD Attending Provider Active S tart: December 02, 2024 Dr. Galileo Ohara MD Referring Provider Active S tart: December 02, 2024 Team Status: Inactive Member Role Status Dates Iraida Padilla NETWORK CONTRACTOR, NETWORK CONTRACTOR-C Attending Provider Active Start: 2024 End: 2024 Dr. Phoenix Duran MD Primary Care Provider Active Start: 2024 End: 2024 Dr. Phoenix Duran MD Referring Provider Active Start: 2024 End: 2024 Team Status: Inactive Member Role Status Dates Dr. Phoenix Duran MD Primary Care Provider Active Start: December 26, 2024 End: December 26, 2024 Dr. hPoenix Duran MD Attending Provider Active Start: December 26, 2024 End: December 26, 2024 Dr. Phoenix Duran MD Referring Provider Active Start: December 26, 2024 End: December 26, 2024 Team Status: Active Member Role Status Dates Dr. Phoenix Duran MD Primary Care Provider Active Start: December 30, 2024 Dr. Phoenix Duran MD Attending Provider Active Start: December 30, 2024 Dr. Phoenix Duran MD Referring Provider Active Start: December 30, 2024 Team Status: Active Member Role Status Dates Dr. Phoenix Duran MD Primary Care Provider Active Start: December 30, 2024 Dr. Markie Mixon MD Attending Provider Active S tart: December 30, 2024 Team Status: Active Member Role Status Dates Dr. Phoenix Duran MD Primary Care Provider Active Start: December 30, 2024 Dr. Marlon Moraes MD Attending Provider Active Start: December 30, 2024 Dr. Marlon Moraes MD Referring Provider Active Start: December 30, 2024 Team Status: Active Member Role Status Dates Dr. Phoenix Duran MD Primary Care Provider Active Start: January 03, 2025 Dr. Phoenix Duran MD Attending Provider Active Start: January 03, 2025 Dr. Phoenix Duran MD Referring Provider Active Start: January 03, 2025 Team Status: Inactive Member Role Status Dates Dr. Phoenix Duran MD Primary Care Provider Active Start: December 30, 2024 End: December 30, 2024 Dr. Phoenix Duran MD Attending Provider Active Start: December 30, 2024 End: December 30, 2024 Dr. Phoenix Duran MD Referring Provider Active Start: December 30, 2024 End: December 30, 2024 Team Status: Inactive Member Role Status Dates Dr. Phoenix Duran MD Primary Care Provider Active Start: December 30, 2024 End: December 30, 2024 Dr. Marlon Moraes MD Attending Provider Active Start: December 30, 2024 End: December 30, 2024 Dr. Marlon Moraes MD Referring Provider Active Start: December 30, 2024 End: December 30, 2024 Team Status: Inactive Member Role Status Dates Dr. Phoenix Duran MD Primary Care Provider Active Start: January 03, 2025 End: January 03, 2025 Dr. Phoenix Duran MD Attending Provider Active Start: January 03, 2025 End: January 03, 2025 Dr. Phoenix Duran MD Referring Provider Active Start: January 03, 2025 End: January 03, 2025 Team Status: Active Member Role Status Dates Dr. Phoenix Duran MD Primary Care Provider Active Start: January 08, 2025 Dr. Phoenix Duran MD Attending Provider Active Start: January 08, 2025 Dr. Phoenix Duran MD Referring Provider Active Start: January 08, 2025 Team Status: Inactive Member Role Status Dates Dr. Phoenix Duran MD Primary Care Provider Active Start: January 08, 2025 End: January 08, 2025 Dr. Phoenix Duran MD Attending Provider Active Start: January 08, 2025 End: January 08, 2025 Dr. Phoenix Duran MD Referring Provider Active Start: January 08, 2025 End: January 08, 2025 Team Status: Inactive Member Role Status Dates Dr. Phoenix Duran MD Primary Care Provider Active Start: January 15, 2025 End: January 15, 2025 Dr. Refugio Haynes MD Attending Provider Active Start: January 15, 2025 End: January 15, 2025 Dr. Refugio Haynes MD Referring Provider Active Start: January 15, 2025 End: January 15, 2025 Team Status: Active Member Role Status Dates Dr. Phoenix Duran MD Primary Care Provider Active Start: January 17, 2025 Dr. Juan Peacock MD Attending Provider Active Start: January 17, 2025 Dr. Juan Peacock MD Referring Provider Active Start: January 17, 2025 Team Status: Inactive Member Role Status Dates Dr. Phoenix Duran MD Primary Care Provider Active Start: January 17, 2025 End: January 17, 2025 Dr. Juan Peacock MD Attending Provider Active Start: January 17, 2025 End: January 17, 2025 Dr. Juan Peacock MD Referring Provider Active Start: January 17, 2025 End: January 17, 2025 Team Status: Inactive Member Role Status Dates Dr. Phoenix Duran MD Primary Care Provider Active Start: February 17, 2025 End: February 17, 2025 Dr. Phoenix Duran MD Attending Provider Active Start: February 17, 2025 End: February 17, 2025 Dr. Phoenix Duran MD Referring Provider Active Start: February 17, 2025 End: February 17, 2025 Diabetes Clinical Manager Relationship Specialty Start Date End Date Malick Al MD [address] [facility] [address] [place] [address] PCP - [facility] 05/18/23 Diabetes Clinical Manager Relationship Specialty Start Date End Date Malick Al MD [address] [facility] [address] [place] [address] PCP - [facility] 05/18/23 Team Status: Inactive Member Role Status Dates Dr. Phoenix Duran MD Primary Care Provider Active Start: February 24, 2025 End: February 24, 2025 Dr. Phoenix Duran MD Referring Provider Active Start: February 24, 2025 End: February 24, 2025 ROCIO Ambrosio Attending Provider Active S tart: February 24, 2025 End: February 24, 2025 Team Status: Inactive Member Role Status Dates Dr. Phoenix Duran MD Primary Care Provider Active Start: February 24, 2025 End: February 24, 2025 ROCIO Ambrosio Attending Provider Active S tart: February 24, 2025 End: February 24, 2025 ROCIO Ambrosio Referring Provider Active S tart: February 24, 2025 End: February 24, 2025 Team Status: Active Member Role Status Dates Dr. Malick Al MD Primary Care Provider Active Start: February 27, 2025 Dr. Galileo Ohara MD Attending Provider Active S tart: February 27, 2025 Dr. Galileo Ohara MD Referring Provider Active S tart: February 27, 2025 Team Status: Active Member Role Status Dates Dr. Phoenix Duran MD Primary Care Provider Active Start: February 27, 2025 ROCIO Ambrosio Attending Provider Active S tart: February 27, 2025 ROCIO Ambrosio Referring Provider Active S tart: February 27, 2025 Team Status: Inactive Member Role Status Dates Dr. Phoenix Duran MD Primary Care Provider Active Start: March 04, 2025 End: March 04, 2025 Dr. Phoenix Duran MD Referring Provider Active Start: March 04, 2025 End: March 04, 2025 Dr. Galileo Ohara MD Attending Provider Active S tart: March 04, 2025 End: March 04, 2025 Team Status: Inactive Member Role Status Dates Dr. Phoenix Duran MD Primary Care Provider Active Start: February 27, 2025 End: February 27, 2025 ABRAHAM AmbrosioC Attending Provider Active S tart: February 27, 2025 End: February 27, 2025 ROCIO Ambrosio Referring Provider Active S tart: February 27, 2025 End: February 27, 2025 Team Status: Inactive Member Role Status Dates Dr. Phoenix Duran MD Primary Care Provider Active Start: March 07, 2025 End: March 07, 2025 Dr. Phoenix Duran MD Referring Provider Active Start: March 07, 2025 End: March 07, 2025 ROCIO Ambrosio Attending Provider Active S tart: March 07, 2025 End: March 07, 2025 Team Status: Inactive Member Role Status Dates Dr. Phoenix Duran MD Primary Care Provider Active Start: March 12, 2025 End: March 12, 2025 ROCIO Ambrosio Attending Provider Active S tart: March 12, 2025 End: March 12, 2025 ROCIO Ambrosio Referring Provider Active S tart: March 12, 2025 End: March 12, 2025 Team Status: Inactive Member Role Status Dates Dr. Phoenix Duran MD Primary Care Provider Active Start: March 25, 2025 End: March 25, 2025 ROCIO Ambrosio Attending Provider Active S tart: March 25, 2025 End: March 25, 2025 ROCIO Ambrosoi Referring Provider Active S tart: March 25, 2025 End: March 25, 2025 Team Status: Inactive Member Role Status Dates Dr. Phoenix Duran MD Primary Care Provider Active Start: April 01, 2025 End: April 01, 2025 Dr. Phoenix Duran MD Referring Provider Active Start: April 01, 2025 End: April 01, 2025 ROCIO Ambrosio Attending Provider Active S tart: April 01, 2025 End: April 01, 2025 Goals (unrecognized section and content) Goals may be documented in a n alternate sectionGoals may be documented in an alternate sectionGoals may be documented in an alternate sectionGoals may be documented in an alternate sectionGoals may be documented in an alternate sectionGoals may be documented in an alternate sectionGoals may be documented in an alternate sectionGoals may be documented in an alternate sectionGoals may be documented in an alternate sectionGoals may be documented in an alternate sectionGoals may be documented in an alternate sectionGoals may be documented in an alternate sectionGoals may be documented in an alternate sectionGoals may be documented in an alternate sectionGoals may be documented in an alternate sectionGoals may be documented in an alternate sectionGoals may be documented in an alternate sectionGoals may be documented in an alternate sectionGoals may be documented in an alternate sectionGoals may be documented in an alternate sectionGoals may be documented in an alternate sectionGoals may be documented in an alternate sectionGoals may be documented in an alternate sectionGoals may be documented in an alternate sectionGoals may be documented in an alternate sectionGoals may be documented in an alternate sectionGoals may be documented in an alternate sectionGoals may be documented in an alternate sectionGoals may be documented in an alternate section FOR RECORDS PERTAINING TO PATIENTS WHO ARE [...] BE BASED ON THE PRIMARY CLINICAL RECORDS. [facility]. provides no warranty or guarantee of the accuracy or completeness of information in this document.
[2025-04-09] MEDS: Lactated Ringers 1,000 ML 15 ML IV (07:07)
--- NOTE | 2025-04-09 07:19 | PCM.PRE.AN2 ---
ASA Classification* ASA Classification ASA Classification: 3 (CKD3, Hypothyroidism, HTN, DM, hx of DVTs, severe ROSITA (central apnea - has inspire but it doesnt work). ) Assessment & Plan Anesthesia* Anesthesia Assessment Anesthesia Assessment: Discussed sedation and/or anesthesia options, risks, benefits, and alternatives with patient/parents/legal guardian/POA. Questions invited. The patient/parents/legal guardian/POA seems to understand and agrees to proceed with anesthesia plan. Reviewed the physical assessment, medical history, allergy history and patient home medications list prior to surgery/procedure/anesthetic and documented any changes. Performed airway and anesthesia risk assessments. Anesthesia Type Anesthesia Type: General History Source History Obtained from:: Patient and Chart Anesthesia Focused Assessment* Temperature: 98.2 F Pulse Rate: 58 Blood Pressure: 135/64 Respiratory Rate: 18 Pulse Ox: 100 Oxygen Delivery Method: Room Air Airway Assessment Mouth opens: >3 cm Mallampati Score: II Neck Range of motion (ROM): Full ROM Labs Anesthesia Preop lab: CBC WBC 9.1 K/mm3 (4.4-11.0) 02/27/25 10:51 02/27/25 RBC 4.18 M/mm3 (4.6-6.2) L 02/27/25 10:51 02/27/25 Hgb 14.5 g/dL (13.0-16.5) 02/27/25 10:51 02/27/25 Hct 43.5 % (40-54) 02/27/25 10:51 02/27/25 Plt Count 244 K/mm3 (150-450) 02/27/25 10:51 02/27/25 CHEMISTRY Potassium 4.8 mmol/L (3.3-5.1) 02/17/25 10:10 02/17/25 Sodium 138 mmol/L (133-145) 02/17/25 10:10 02/17/25 Magnesium 2.2 mg/dL (1.6-2.6) 08/21/24 09:45 08/21/24 Phosphorus 3.6 mg/dL (2.7-4.5) 01/15/25 11:16 01/15/25 BUN 25 mg/dL (4-19) H 02/17/25 10:10 02/17/25 Creatinine 1.77 mg/dL (0.70-1.20) H 02/17/25 10:10 02/17/25 Glucose 112 mg/dL (70-99) H 02/17/25 10:10 02/17/25 POC Glucose 142 mg/dL (74-106) H 08/08/24 13:28 08/08/24 TSH 1.610 uIU/mL (0.300-4.200) 02/17/25 10:10 02/17/25 COAG PT 14.1 SECONDS (11.7-14.9) 08/21/24 09:45 08/21/24 Pre-Assessment Diagnosis/Proposed Procedure Planned Operative Procedure(s): CYSTO TURP Anesthesia History Anesthesia History - polls or surveys interviewer: Anesthesia History - polls or surveys interviewer Hx Hospitalization No 03/26/25 13:52 Any Problems With Anesthesia No 03/26/25 13:52 Cholinesterase deficiency No 03/26/25 13:52 You/Your Family Experience No 03/26/25 13:52 fever (hyperthermia) with Relationship Recent Exposure to Contagious No 04/09/25 06:52 Disease Does patient have nerve No 03/26/25 13:52 stimulator Patient instructed to have device shut off --Does patient have Pacemaker No 04/09/25 06:52 or ICD? When Was Last Pacemaker Check QUESTION #4 FULL TEXT: You/Your Family Experience fever (hyperthermia) with Anesthesia Last Oral Intake Last Oral intake: Last Oral Intake NPO since 20:00 04/09/25 06:52 Meds taken in AM with sips of Yes 04/09/25 06:52 water? Meds patient instructed to take am of surgery PONV PONV - polls or surveys interviewer: PONV - polls or surveys interviewer Female No 03/26/25 13:52 HX of Motion Sickness Yes 03/26/25 13:52 HX of N/V After Surgery No 03/26/25 13:52 Non-Smoker Yes 03/26/25 13:52 Duration of Surgery greater Yes 03/26/25 13:52 than 60 minutes Number of Risk Factors 3 03/26/25 13:52 PONV Score Moderate Risk 03/26/25 13:52 Height & Weight Height & Weight: Anesthesia: Height & Weight Height 5 ft 8 in 04/09/25 06:52 Weight: 82 kg 04/09/25 06:52 Body Mass Index (BMI) 27.4 04/09/25 06:52 Respiratory Assessment Respiratory Assessment - polls or surveys interviewer: Respiratory Tract Infection Hx - polls or surveys interviewer Hx Respiratory Tract Infection No 03/26/25 13:52 STOP Sleep Apnea STOP Sleep Apnea - polls or surveys interviewer: STOP Sleep Apnea - polls or surveys interviewer Hx Hypertension Yes: CONTROLLED WITH MED 03/26/25 13:52 Hx Sleep Apnea Yes 03/26/25 13:52 CPAP Yes: DOES NOT WORK 03/26/25 13:52 BIPAP Yes: DOES NOT WORK PER 03/26/25 13:52 PATIENT Do you snore loudly (louder No 03/26/25 13:52 than talking or can be heard Do you often feel tired/ No 03/26/25 13:52 fatigued/ sleepy during daytime? Has anyone observed you stop No 03/26/25 13:52 breathing during sleep? STOP Results Positive 03/26/25 13:52 QUESTION #5 FULL TEXT : Do you snore loudly (louder than talking or can be heard through closed doors)? Tobacco Use History Tobacco Use History - polls or surveys interviewer: Tobacco Use History - polls or surveys interviewer Tobacco Use Smoking Status Former smoker 04/01/25 15:47 Hx Tobacco Use No 03/26/25 13:52 Years Smoking Packs Smoked per Day Smoking Cessation Date was No - quit smoking greater 03/26/25 13:52 within the last 15 years than 15 years ago Hx Smoking Cessation Date 10/16/75 03/26/25 13:52 Hx Smoking Cessation No 03/26/25 13:52 Counseling Hematologic Medial History Hematologic Hx - polls or surveys interviewer: Hematologic Medical Hx - talent assistant Hx of Blood Transfusion No 03/26/25 13:52 Hx of Transfusion in last 3 No 03/26/25 13:52 Months Date of Last Transfusion (if within last 3 months) Ever experience any problems No 03/26/25 13:52 with transfusion(s)? Specify any problems Hx of Preganancy in last 3 N/A 03/26/25 13:52 Months Nurse Filling Out Transfusion DSCHRIBER 03/26/25 13:52 & Questions: Date: 03/26/25 03/26/25 13:52 Time: 13:55 03/26/25 13:52 Patient unable to answer at this time (ie. confused, unrespo /Reproduction History /Reproductive History - polls or surveys interviewer: /Reproductive Hx- polls or surveys interviewer Hx Now No 03/26/25 13:52 Gestational Age (in weeks): EDC: Hx Hx Para Hx Section SAB No 03/26/25 13:52 Active Medications Active Medications: Current Medications Generic Name Dose Route Start Last Admin Trade Name Freq PRN Reason Stop Dose Admin Cefazolin Sodium 2 gm/ Sodium 110 mls @ 200 mls/hr 04/09/25 07:30 Chloride IV 04/09/25 08:02 INTRAOP ONE Lactated Ringer's 1,000 mls @ 15 mls/hr 04/09/25 06:15 04/09/25 07:07 IV 15 mls/hr .Q48H ABDIEL Administration PFSH Medical History (Updated 04/09/25 @ 07:14 by Shakeel Mahan) Maksim's disease Central apnea Other abnormal clinical finding Depression Prostate disease History of renal disease Restless legs Back pain Diarrhea Sleep apnea History of edema Hypertension Acute deep vein thrombosis (DVT) of popliteal vein of left lower extremity Ankle injury Cancer Thyroid disease Arthritis High cholesterol History of echocardiogram Tilt table evaluation Hx of fracture of ankle Squamous cell cancer of external ear ROSITA (obstructive sleep apnea) Mixed hyperlipidemia Type 2 diabetes mellitus Syncope and collapse Wears hearing aid Wears glasses Fibromyalgia Alcohol use Diabetes DVT (deep venous thrombosis) Injury of head and neck Passed out Gastric reflux Former smoker History of stress test History of Holter monitoring Cardiology follow-up encounter History of rheumatic fever Encounter for screening for COVID-19 Fatigue Overweight (BMI 25.0-29.9) Diabetes mellitus Raynaud disease Hyperlipidemia Prostate Tissues Osteoarthritis Chest pain Home Medications ?Medication ?Instructions ?Recorded ?Last Taken ?Type losartan 25 mg tablet 25 mg PO DAILY blood pressure 04/17/14 04/08/25 History blood sugar diagnostic (OneTouch 09/06/22 Unknown History Verio test strips) levothyroxine 50 mcg capsule 50 mcg PO DAILY 08/01/23 04/09/25 History cbd topical 3,000 mg topical 2XD PRN pain 08/21/24 Unknown History (scale score 1-3) dupilumab 300 mg/2 mL subcutaneous 300 mg subcut QMONTH 08/21/24 03/17/25 History pen injector (Populus.[email or web address]) apixaban 5 mg tablet (Eliquis) 2.5 mg PO BID 03/04/25 04/03/25 History psyllium husk 0.4 gram capsule 0.8 g PO DAILY 03/26/25 04/08/25 History (Fiber (psyllium husk)) valacyclovir 500 mg tablet 500 mg PO DAILY 03/26/25 04/08/25 History citalopram 20 mg tablet 20 mg PO DAILY 04/09/25 04/08/25 History Allergy/AdvReac Type Severity Reaction Status Date / Time tamsulosin Allergy Severe Blacked Verified 04/09/25 06:49 out, Passed out meloxicam Allergy Unknown Decrease Verified 04/09/25 06:49 in kidney function alfuzosin HCl (From Allergy Unknown Verified 04/09/25 06:49 Uroxatral) ezetimibe (From Zetia) Allergy Pain in Verified 04/09/25 06:49 joints pramipexole di-HCl (From Allergy Other Verified 04/09/25 06:49 Mirapex) simvastatin (From Zocor) Allergy Pain in Verified 04/09/25 06:49 joints celecoxib (From Celebrex) AdvReac Unknown Unknown Verified 04/09/25 06:49 lisinopril AdvReac Other Verified 04/09/25 06:49 Family History Brother Myocardial infarction, Onset Age: 58 Sister Cancer Breast Grandfather Myocardial infarction Other Arthritis Breast cancer FH: defects Surgical History Hx of total knee arthroplasty History of transurethral resection of prostate History of esophagogastroduodenoscopy (EGD) Hx of colonoscopy History of repair of anterior cruciate ligament of left knee H/O cataract removal with insertion of prosthetic lens History of total right knee replacement (TKR) Social History Smoking Status: Former smoker alcohol intake: current alcohol intake frequency: 0-2 drinks per day details: states 0 - 2 shots of [place] daily edited on 08.27.24 per patient request substance use type: does not use caffeine: Yes Type: coffee Number of servings: 3 what type of physical activity do you participate in: none Review of Systems (Anesthesia) ROS Narrative System reviewed and no additional complaints, except as documented.
--- NOTE | 2025-04-09 07:30 | PROS_PTH ---
PATIENT: TEMO GARRISON LOC: [facility] U#:[id number] AGE/SX: 84/M ROOM: NM311 RE04/09/[address]: Dr. Aneesh Prado MD : 1940 BED: 1 DIS: 04/10/2025 SPEC #: [id number] RECD: 04/09/25 11:05 STATUS: INÉS DELEON #: [id number] DHEERAJ: 04/09/25 07:[address]: Aneesh Prado DEPT: SURGICAL PATHOLOGY RECD BY: Fercho Gonzalez ENTERED: 04/09/25 13:23 SP TYPE: TURP OTHR DR: Dr. Phoenix Duran MD Tissues: A - Prostate, NOS Procedures: Surgery Specimen Level IV HEADER OPERATION: Cysto, transurethral resection prostate PRE-OP DIAGNOSIS: Benign prostatic hyperplasia, nocturia TISSUE SUBMITTED: A- Prostate chips MICROSCOPIC DIAGNOSIS A. Prostate, BPH, nocturia, transurethral resection: * Benign prostate tissue. MICROSCOPIC DESCRIPTION Slides are reviewed. GROSS DESCRIPTION A. Received in formalin labeled with the patient's name and date of . Designated as prostate chips is a <1 g, 2.1 x 1.3 x 0.3 cm aggregate of lauren irregular and focally cauterized, rubbery tissue fragments. Entirely submitted in 1 cassette. HI 04/09/2025 CPT:04737
[2025-04-09] MEDS: Cefazolin 2 GM in 0.9% Normal Saline (100mL Bag) 100 ML IV (07:40)
[2025-04-09 07:56] LABS: Bedside Glucose 122 mg/dL (74-106)
--- NOTE | 2025-04-09 08:06 | DCINST_ITS ---
Discharge Instructions Procedure Urology Diet Discharge Diet: No restrictions Activity Discharge Activity: Return to Normal Activity and May Not Drive (while taking narcotic pain medications.) Dressing / Incision Call your doctor if you observe: Fever of 101 or Higher Follow Up Care Please Follow Up With: Aneesh Prado MD When: Call [phone] for an appointment Test Results: Test results from this visit will be discussed in further detail at your follow- up appointment, if applicable. Discharge Plan Admission Primary Reason for Your Visit: turp Attending Provider: Aneesh Prado Primary Care Provider: Phoenix Duran Chi Instructions Print Language: Moroccan Discharge Orders/Prescriptions Prescriptions: New cephalexin 500 mg capsule 500 mg PO TID Qty: 15 0RF Continued (DME) OneTouch Verio test strips Strip See Rx Instructions .ROUTE .MEDSUPPLY Rx Instructions: Check weekly Dupixent Pen 300 mg/2 mL pen injector 300 mg subcut QMONTH levothyroxine 50 mcg capsule 50 mcg PO DAILY losartan 25 MG tablet 25 mg PO DAILY Patient Comments: blood pressure valacyclovir 500 mg tablet 500 mg PO DAILY psyllium husk [Fiber (psyllium husk)] 0.4 gram capsule 0.8 g PO DAILY citalopram 20 mg tablet 20 mg PO DAILY Held cbd topical 3,000 mg topical 2XD PRN (Reason: pain (scale score 1-3)) Hold Instructions: Resume on 04/10/25. Eliquis 5 mg tablet 2.5 mg PO BID Hold Instructions: Resume on 04/23/25. Referrals / Follow Up: Aneesh Prado MD [Med Staff - Active Staff] - Phoenix Duran Chi, MD [Primary Care Provider] - Disposition Disposition (needs filled in before D/C Order can be placed): Home, Self Care
--- NOTE | 2025-04-09 08:07 | PCM.OPRPT ---
Operative Report (Standard) Operative Information Date of Procedure: 04/09/25 Pre-Operative Diagnosis: BPH with regrowth of prostatic tissue and obstruction Post-Operative Diagnosis: The same Surgery/Procedure Performed: Transurethral section of the prostate for regrowth and obstruction supervisor cutting department: No Type of Anesthesia: General RN Documented Start/Stop Times: Operation Date: 04/09/25 07:30 Case Time Into Pre-Op 04/09/25 06:13 Out of Pre-Op 04/09/25 07:27 Anesthesia Start 04/09/25 07:30 Into Room 04/09/25 07:30 Procedure Start 04/09/25 07:42 Procedure Start Time: 07:42 Procedure Stop Time: 08:08 Select all DRAINS/GRAFTS/IMPLANTS that apply: Drains Drain details: 22 [place] three-way catheter Estimated Blood Loss: 10 cc Specimen collected: No Description of surgery: Is an 84-year-old gentleman who had a TURP in the past not that long ago and had been doing fairly well but now the stream is slowed down significantly on cystoscopy is found to have significant obstruction from the verumontanum into the bladder and also has a little bit of narrow urethra in the membranous urethra so today were going to do a resection of the prostate and dilation of the membranous urethra Patient was taken back to the operating room after induction of anesthesia he was placed in dorsolithotomy position. The penis and testicles were prepped and draped in usual fashion went into the urethra with a 26 [place] continuous-flow Olympus bipolar resectoscope was able get through the urethra with any problems was able to get through the membranous urethra is a slightly tight but this dilated open just with the scope it was very soft then identified the verumontanum he had obstruction inside the channel so then I used a loop and resected the channel open starting at the midline 6 o'clock position worked my way laterally resecting all the obstructive tissue after I resected all the obstructive tissue in the right side and the left side the verumontanum was intact sphincter was intact within the flow test had a wide open flow, I then cauterized obtain hemostasis put a catheter in the bladder a 22 [place] three-way catheter for continuous irrigation patient has an anesthetic was reversed taken back to the PACU in good condition we will keep him overnight for irrigation. Surgical Findings: He had obstruction in the prostate channel from regrowth small amount of scar tissue in the urethra at the membranous urethra Complications Complications: No Admit VTE Documentation VTE Present on Admission: No VTE Mechan Device Prophylaxis: SCD's VTE Pharm Prophylaxis ordered?: No
[2025-04-09] MEDS: Ketorolac 15 MG/ML Vial IV (08:37)
[2025-04-09] MEDS: 0.9% Normal Saline (1000mL) 1,000 ML 125 ML IV ×2 (09:27→18:48)
[2025-04-09] MEDS: Citalopram 20 MG Tablet PO (11:13)
[2025-04-09] MEDS: Acyclovir 200 MG Capsule 400 MG PO (11:13)
[2025-04-09] MEDS: Losartan Potassium 25 MG Tablet PO (11:13)
--- NOTE | 2025-04-09 11:54 | PCM.POST.ANE ---
Anesthesia: Postop Eval I Current Vital Signs Temperature: 97.9 F Pulse Rate: 59 Blood Pressure: 134/74 Respiratory Rate: 18 Pulse Ox: 16 Oxygen Delivery Method: Room Air Assessment Airway patent: Yes Spontaneous unlabored respirations: Yes nausea: No Vomiting: No Anesthesia Complication: No Fluid Hydration Crystalloid volume administer (ml): 1,000 Total IV fluid infused: 1,000 Progress Note Anesthesia document: Postop Eval 1 completed: Yes
--- NOTE | 2025-04-09 14:47 | POSTOPAN2_ITS ---
Anesthesia Postop Eval I Sum Postop Eval Completion status Anesthesia document: Postop Eval 1 completed: Yes Anesthesia Postop Eval I Summary Anesthesia Postop Eval I Summary: Anesthesia Postop Eval I: Assessment Summary Airway patent Yes 04/09/25 11:55 SURVEY RESEARCH MANAGER.ACAR Spontaneous unlabored Yes 04/09/25 11:55 SURVEY RESEARCH MANAGER.ACAR respirations Mental status nausea No 04/09/25 11:55 SURVEY RESEARCH MANAGER.ACAR Vomiting No 04/09/25 11:55 SURVEY RESEARCH MANAGER.ACAR Anesthesia Postop Eval I: Fluid Summary Crystalloid volume administer 1,000 04/09/25 11:55 SURVEY RESEARCH MANAGER.ACAR (ml) Colloids volume administered ( ml) Blood Product volume administered (ml) Total IV fluid infused 1,000 04/09/25 11:55 SURVEY RESEARCH MANAGER.ACAR Anesthesia Postop Eval I: Summary Notes Anesthesia Complication No 04/09/25 11:55 SURVEY RESEARCH MANAGER.ACAR Anesthesia Complication Comment: Post-operative progress note Anesthesia: Postop Eval II Evaluation Mental status: Awake Pain Level: 0 nausea: No Vomiting: No Complications Anesthesia Complication: No
--- NOTE | 2025-04-09 14:47 | PCM.POSTANE2 ---
Anesthesia Postop Eval I Sum Postop Eval Completion status Anesthesia document: Postop Eval 1 completed: Yes Anesthesia Postop Eval I Summary Anesthesia Postop Eval I Summary: Anesthesia Postop Eval I: Assessment Summary Airway patent Yes 04/09/25 11:55 PATIENT CARE MANAGER.ACAR Spontaneous unlabored Yes 04/09/25 11:55 PATIENT CARE MANAGER.ACAR respirations Mental status nausea No 04/09/25 11:55 PATIENT CARE MANAGER.ACAR Vomiting No 04/09/25 11:55 PATIENT CARE MANAGER.ACAR Anesthesia Postop Eval I: Fluid Summary Crystalloid volume administer 1,000 04/09/25 11:55 PATIENT CARE MANAGER.ACAR (ml) Colloids volume administered ( ml) Blood Product volume administered (ml) Total IV fluid infused 1,000 04/09/25 11:55 PATIENT CARE MANAGER.ACAR Anesthesia Postop Eval I: Summary Notes Anesthesia Complication No 04/09/25 11:55 PATIENT CARE MANAGER.ACAR Anesthesia Complication Comment: Post-operative progress note Anesthesia: Postop Eval II Evaluation Mental status: Awake Pain Level: 0 nausea: No Vomiting: No Complications Anesthesia Complication: No
[2025-04-09] MEDS: Cefazolin 1 GM/50 ML BAG IV (16:15)
[2025-04-10] MEDS: Cefazolin 1 GM/50 ML BAG IV (00:23)
[2025-04-10 02:00] VITALS: BP 116/65; PULSE 55; RESP 16; TEMP 36.1; O2SAT 96
[2025-04-10] MEDS: 0.9% Normal Saline (1000mL) 1,000 ML 125 ML IV ×2 (02:48→12:52)
[2025-04-10] MEDS: Levothyroxine 50 MCG Tablet PO (05:36)
[2025-04-10 07:35] VITALS: O2SAT 94
--- NOTE | 2025-04-10 07:41 | PCM.PN.GU ---
Subjective Subjective s/p turp doign well d/c cline maybe home today. Objective Data Objective Data Vital Signs: Vital Signs Temp Pulse Resp BP Pulse Ox O2 Del Method 97 F L 55 L 16 116/65 96 Room Air 04/10/25 02:00 04/10/25 02:00 04/10/25 02:00 04/10/25 02:00 04/10/25 02:00 04/10/25 02:00 Oxygen Delivery Method Room Air Weight: 82 kg Body Mass Index (BMI) 27.3 Intake & Output: Intake and Output for Last 24 Hours 04/08/25 04/09/25 04/10/25 23:59 23:59 23:59 Intake Total 2570 / 2570 1050 / 1050 Output Total 720 / 720 Balance 1850 / 1850 1050 / 1050 Lab / Micro Data Labs: Laboratory Results - last 24 hr 04/09/25 06:36: POC Glucose 122 H
[2025-04-10 07:54] LABS: Absolute Lymphocyte Count 1.99 X10^3/uL (0.83-4.51); Absolute Neutrophil Count 7.5 X10^3/uL (2.0-7.7); Basophil# 0.04 X10^3/uL; Basophil% 0.4 % (0-1); Eosinophil# 0.07 X10^3/uL; Eosinophils% 0.7 % (0-5); Hematocrit 36.1 % (40-54); Hemoglobin 12.1 g/dL (13.0-16.5); Lymphocyte # 1.99 X10^3/ul (0.83-4.51); Lymphocyte % 18.9 % (19-41); Mean Corp Hgb Conc 33.5 g/dL (32-36); Mean Corpuscular Hgb 34.2 pg (27.0-32.0); Mean Platelet Vol. 10.6 fl (6.2-12.0); Monocyte# 0.83 X10^3/uL; Monocyte% 7.9 % (0-10); NRBC Flagged by Analyzer 0 % (0-5); Neutrophil # 7.53 X10^3/uL (2.7-7.7); Neutrophil % 71.6 % (47-70); Platelet Count 200 K/mm3 (150-450); RBC Distribution Width CV 12.6 % (11.6-14.6); RBC Distribution Width SD 47.7 fl (35.1-43.9); Red Blood Count 3.54 M/mm3 (4.6-6.2); White Blood Count 10.5 K/mm3 (4.4-11.0)
[2025-04-10 08:00] VITALS: BP 124/60; PULSE 48; RESP 18; TEMP 36.6; O2SAT 98
[2025-04-10 08:38] LABS: Anion Gap 9 (5-15); BUN 24 mg/dL (4-19); BUN/Creat Ratio 13.7 RATIO (10-20); Calcium,Total 8.2 mg/dL (7.6-11.0); Carbon Dioxide 23.3 mmol/L (21.0-32.0); Chloride 110 mmol/L (98-108); Creatinine, Serum 1.73 mg/dL (0.70-1.20); EST Glomerular Filtration Rate 39 (>60); Glucose 125 mg/dL (70-99); Potassium 4.6 mmol/L (3.3-5.1); Sodium Level 142 mmol/L (133-145)
[2025-04-10] MEDS: Citalopram 20 MG Tablet PO (08:54)
[2025-04-10] MEDS: Losartan Potassium 25 MG Tablet PO (08:54)
[2025-04-10] MEDS: Ketorolac 15 MG/ML Vial IV (09:00)
[2025-04-10] MEDS: 0.9% Saline Lock 10 ML Syringe IV (09:01)
[2025-04-10] MEDS: Morphine 2 MG/ML Syringe IV (09:01)
--- NOTE | 2025-04-10 10:06 | NURSING ---
Urinary catheter with 3 way irrigation removed at this time. Patient premedicated for pain and tolerated well. 25cc removed from balloon and catheter removed. Tip intact and small amount of bloody urine came out as well. Patient educated to report any bladder pain/fullness or difficulty urinating.
--- NOTE | 2025-04-10 11:30 | CASEMGMT ---
Met with patient to complete MIX form. MIX form and its content were verbally explained and patient's questions were answered to the best of my ability.? Patient voiced understanding and signed MIX form.? Patient provided a copy of signed MIX form and original placed in patient's chart.? Patient had no further questions. Carol Okeefe, Discharge Planning Asst
[2025-04-10 14:00] VITALS: BP 113/51; PULSE 54; RESP 18; TEMP 36.6; O2SAT 98
--- NOTE | 2025-04-11 14:31 | PCM.DC.SUM ---
Providers Date of Admission: 04/09/25 Date of Discharge: 04/10/25 Primary Care Physician: Dr. Phoenix Duran MD Reason For Visit: Cysto,Transurethral Resection Prostate Medications at Discharge Home Medications losartan 25 mg tablet 25 mg PO DAILY blood pressure 04/17/14 blood sugar diagnostic (OneTouch Verio test strips) 09/06/22 levothyroxine 50 mcg capsule 50 mcg PO DAILY 08/01/23 cbd topical 3,000 mg topical 2XD PRN pain (scale score 1-3) 08/21/24 Held on 04/09/25. Instructions: Resume on 04/10/25. dupilumab 300 mg/2 mL subcutaneous pen injector (Dupixent) 300 mg subcut QMONTH 08/21/24 apixaban 5 mg tablet (Eliquis) 2.5 mg PO BID 03/04/25 Held on 04/09/25. Instructions: Resume on 04/23/25. psyllium husk 0.4 gram capsule (Fiber (psyllium husk)) 0.8 g PO DAILY 03/26/25 valacyclovir 500 mg tablet 500 mg PO DAILY 03/26/25 cephalexin 500 mg capsule 500 mg PO TID #15 caps 04/09/25 citalopram 20 mg tablet 20 mg PO DAILY 04/09/25 Hospital Course Operations TURP Weight / BMI Weight Weight: 82 kg Body Mass Index (BMI) 27.3 ABG / Lab / Microbiology Data 04/10/25 06:53 04/10/25 06:53 D/C Instructions Discharge Diet: No restrictions Call your doctor if you observe: Fever of 101 or Higher DC O2, CPAP, BIPAP Needs Home O2 Discharge instructions: No Please Follow Up With: Aneesh Prado MD When: Call [phone] for an appointment Meaningful Use Info Meaningful Use Meaningful Use Diagnoses (Choose all that apply): None applicable Ischemic Stroke Statin Dosing Therapy Reference: STATIN DOSE THERAPY REFERENCE: * Patients > 75 years receive moderate or high dose statin therapy. * Patients 75 years or YOUNGER should receive HIGH intensity statin dose unless contraindicated. You will be required to document reason for non-treatment if statin daily dose does not meet guidelines. HIGH DOSE STATIN THERAPY DAILY Atorvastatin > than or = to 40 mg Rosuvastatin > than or = to 20 mg Amlodipine + Atorvastatin > than or = to 2.5/40 mg Ezetimibe + Simvastatin 10/80 mg Simvastatin 80mg Discharge Plan Admission Admit Date/Time: 04/09/25 08:12 Primary Reason for Your Visit: oscar Attending Provider: Aneesh Prado Primary Care Provider: Phoenix Duran Chi Discharge Orders/Prescriptions Prescriptions: New cephalexin 500 mg capsule 500 mg PO TID Qty: 15 0RF Continued (DME) OneTouch Verio test strips Strip See Rx Instructions .ROUTE .MEDSUPPLY Rx Instructions: Check weekly Dupixent Pen 300 mg/2 mL pen injector 300 mg subcut QMONTH levothyroxine 50 mcg capsule 50 mcg PO DAILY losartan 25 MG tablet 25 mg PO DAILY Patient Comments: blood pressure valacyclovir 500 mg tablet 500 mg PO DAILY psyllium husk [Fiber (psyllium husk)] 0.4 gram capsule 0.8 g PO DAILY citalopram 20 mg tablet 20 mg PO DAILY Held cbd topical 3,000 mg topical 2XD PRN (Reason: pain (scale score 1-3)) Hold Instructions: Resume on 04/10/25. Eliquis 5 mg tablet 2.5 mg PO BID Hold Instructions: Resume on 04/23/25. Referrals / Follow Up: Aneesh Prado MD [Med Staff - Active Staff] - Phoenix Duran Chi, MD [Primary Care Provider] - Disposition Disposition (needs filled in before D/C Order can be placed): Home, Self Care
== END 2025-04-10 18:31 | disposition home or self-care (01) ==
LOC: SDC 09:59 → MS3 09:59
PROVIDERS: Admitting Provider Urology; PCP Family Medicine Geriatric Medicine; Referring Provider Urology; Visit Provider Urology
PROC: 0VT08ZZ Resection of Prostate, Via Natural or Artificial Opening Endoscopic (ICD-10-PCS; CPT 52601; principal; 2025-04-09 07:20)
DX: N40.1 Benign prostatic hyperplasia with lower urinary tract symptoms (principal); N18.30 Chronic kidney disease, stage 3 unspecified; N13.8 Other obstructive and reflux uropathy; R35.1 Nocturia; R39.15 Urgency of urination; R39.14 Feeling of incomplete bladder emptying; E78.2 Mixed hyperlipidemia; I12.9 Hypertensive chronic kidney disease with stage 1 through stage 4 chronic kidney disease, or unspecified chronic kidney disease; Z79.899 Other long term (current) drug therapy
CPT/HCPCS: 52630; 00914; 36415; 80048; 82962; 85025; 88305; 94668; 94762; 96361; 96365; 96366; 96375; 97161; 99221; 99252; A4216; G0378; G0463; J2405

== ENCOUNTER → 2025-05-12 | Outpatient (CLI) | payer MEDICARE, SELFPAY ==
[2025-05-12 11:07] LABS: Hemoglobin 14.7 g/dL (13.0-16.5); Red Blood Count 4.34 M/mm3 (4.6-6.2); White Blood Count 8.0 K/mm3 (4.4-11.0)
[2025-05-12 11:08] LABS: Hematocrit 45.1 % (40-54); Immature Granulocytes Count 0.050 X10^3/uL (0.0-0.0); Mean Corp Hgb Conc 32.6 g/dL (32-36); Mean Corpuscular Volume 103.9 fL (80-94); Mean Platelet Vol. 10.2 fl (6.2-12.0); NRBC Flagged by Analyzer 0 % (0-5); Platelet Count 252 K/mm3 (150-450); RBC Distribution Width CV 13.2 % (11.6-14.6); RBC Distribution Width SD 50.4 fl (35.1-43.9)
[2025-05-12 12:18] LABS: AST(SGOT) 15 U/L (<=37); Alanine Aminotransfer ALT/SGPT 8 U/L (<=46); Albumin, Serum 4.0 g/dL (3.4-4.8); Alkaline Phosphatase 62 U/L (40-129); Anion Gap 10 (5-15); BUN 23 mg/dL (4-19); BUN/Creat Ratio 13.8 RATIO (10-20); Calcium,Total 9.0 mg/dL (7.6-11.0); Carbon Dioxide 22.8 mmol/L (21.0-32.0); Chloride 105 mmol/L (98-108); Globulin 2.4 g/dL (2.2-4.2); Glucose 107 mg/dL (70-99); Potassium 4.6 mmol/L (3.3-5.1); Vitamin D,25 Hydroxy 44.9 ng/mL (30-100)
== END | disposition home or self-care (01) ==
LOC: LAB 10:44
PROVIDERS: PCP Family Medicine Geriatric Medicine; Referring Provider Family Medicine Geriatric Medicine; Visit Provider Family Medicine Geriatric Medicine
DX: E11.9 Type 2 diabetes mellitus without complications (principal); E55.9 Vitamin D deficiency, unspecified; I10 Essential (primary) hypertension
CPT/HCPCS: 36415; 80053; 82306; 84443; 85025

== ENCOUNTER → 2025-07-18 | Outpatient (CLI) | payer MEDICARE, SELFPAY ==
[2025-07-18 12:16] LABS: Hematocrit 43.6 % (40-54); Hemoglobin 14.6 g/dL (13.0-16.5); Mean Corp Hgb Conc 33.5 g/dL (32-36); Mean Corpuscular Volume 103.6 fL (80-94); Mean Platelet Vol. 10.3 fl (6.2-12.0); Platelet Count 232 K/mm3 (150-450); RBC Distribution Width CV 13.7 % (11.6-14.6); RBC Distribution Width SD 52.9 fl (35.1-43.9); Red Blood Count 4.21 M/mm3 (4.6-6.2); White Blood Count 7.5 K/mm3 (4.4-11.0)
== END | disposition home or self-care (01) ==
LOC: MTLAB 10:43
PROVIDERS: PCP Family Medicine Geriatric Medicine; Referring Provider Internal Medicine Nephrology; Visit Provider Internal Medicine Nephrology
DX: Z13.0 Encounter for screening for diseases of the blood and blood-forming organs and certain disorders involving the immune mechanism (principal)
CPT/HCPCS: 36415; 85027

== ENCOUNTER → 2025-08-12 | Outpatient (CLI) | payer MEDICARE, SELFPAY ==
[2025-08-12 11:39] LABS: Hematocrit 46.3 % (40-54); Hemoglobin 15.3 g/dL (13.0-16.5); Immature Granulocytes Count 0.040 X10^3/uL (0.0-0.0); Mean Corp Hgb Conc 33.0 g/dL (32-36); Mean Corpuscular Volume 104.3 fL (80-94); Mean Platelet Vol. 10.2 fl (6.2-12.0); NRBC Flagged by Analyzer 0 % (0-5); Platelet Count 238 K/mm3 (150-450); RBC Distribution Width CV 13.2 % (11.6-14.6); RBC Distribution Width SD 50.7 fl (35.1-43.9); Red Blood Count 4.44 M/mm3 (4.6-6.2); White Blood Count 8.1 K/mm3 (4.4-11.0)
[2025-08-12 12:32] LABS: AST(SGOT) 18 U/L (<=37); Alanine Aminotransfer ALT/SGPT 10 U/L (<=46); Albumin, Serum 4.1 g/dL (3.4-4.8); Alkaline Phosphatase 55 U/L (40-129); Anion Gap 8 (5-15); BUN 21 mg/dL (4-19); BUN/Creat Ratio 11.5 RATIO (10-20); Calcium,Total 9.0 mg/dL (7.6-11.0); Carbon Dioxide 26.1 mmol/L (21.0-32.0); Chloride 104 mmol/L (98-108); Globulin 2.5 g/dL (2.2-4.2); Glucose 113 mg/dL (70-99); Potassium 4.8 mmol/L (3.3-5.1); Vitamin D,25 Hydroxy 45.1 ng/mL (30-100)
[2025-08-12 18:56] LABS: Xtra Tube Kwok EXTRA TUBE
== END | disposition home or self-care (01) ==
LOC: POLAB3 10:56
PROVIDERS: PCP Family Medicine Geriatric Medicine; Visit Provider Family Medicine Geriatric Medicine
DX: I10 Essential (primary) hypertension (principal); E03.9 Hypothyroidism, unspecified; E55.9 Vitamin D deficiency, unspecified
CPT/HCPCS: 36415; 80053; 82306; 84443; 85025

== ENCOUNTER → 2025-09-18 | Outpatient (CLI) | payer MEDICARE, SELFPAY ==
[2025-09-22 13:08] LABS: ANTINUCLEAR ANTIBODIES DIRECT Negative (Negative)
== END | disposition home or self-care (01) ==
LOC: MTLAB 13:08
PROVIDERS: PCP Family Medicine Geriatric Medicine
DX: G47.33 Obstructive sleep apnea (adult) (pediatric) (principal); R53.83 Other fatigue
CPT/HCPCS: 36415; 86038; 86235